=== PATIENT | female | born 1985 | race Caucasian/White ===

== ENCOUNTER 2023-08-01 19:07 | Outpatient (REF) | payer OTHER, SELFPAY ==
[2023-08-07 11:09] LABS: Age Gdln ACOG Testing Note (.); HPV Aptima Negative (Negative); IGP, Aptima HPV, rfx 16/18,45 Note (.)
== END 2023-08-01 19:08 | disposition home or self-care (01) ==
LOC: LAB 19:07
PROVIDERS: PCP Internal Medicine; Visit Provider Physician Assistant
DX: Z12.4 Encounter for screening for malignant neoplasm of cervix (principal)
CPT/HCPCS: 87624; G0145

== ENCOUNTER 2023-08-07 11:01 | Outpatient (OUT) | payer OTHER, SELFPAY ==
--- NOTE | 2023-08-07 11:05 | US_ITS ---
[address] [address] Patient Name: MARLENI BERNABE MRN: [id number] date: 1985 Sex: F Assigned Patient Location: Current Patient Location: Accession/Order Number: [id number] Exam Date: 08/07/2023 11:10 Report Date: 08/08/2023 02:48 At the request of: YOCASTA GRANT Procedure: US pelvis transvaginal EXAMINATION: US pelvis transvaginal HISTORY: Menorrhagia With Irregular Cycle N92.1 COMPARISON: Ultrasound pelvis 05/09/2021 TECHNIQUE: Transabdominal and/or transvaginal sonographic examination was performed as indicated by examination type. FINDINGS: UTERUS: Bicornuate uterus. Normal size, contour and echogenicity. Uterus size: 6.8 x 4.2 x 3.0 cm ENDOMETRIUM: Normal homogeneous appearance. Endometrial thickness: 6 mm RIGHT OVARY: Contains a 1.5 cm complex cyst. Duplex Doppler demonstrates normal waveform and flow; resistive index 0.5. Ovary size: 2.9 x 2.7 x 2.5 cm LEFT OVARY: Normal size and appearance. Duplex Doppler demonstrates normal waveform and flow; resistive index 0.5. Ovary size: 2.3 x 1.2 x 1.5 cm CUL-DE-SAC: Unremarkable. No significant free fluid. BLADDER: Unremarkable. OTHER: None. US/US pelvis transvaginal IMPRESSION: 1. Right ovary contains a 1.5 cm complex cyst. Consider follow-up ultrasound evaluation in 6 weeks to document regression. 2. No specific findings to account for patient's symptoms. Electronically authenticated by: DAVID CHANEY Date: 08/08/2023 02:48
[2023-08-07 11:54] LABS: Basophils Absolute Auto 0.1 10^3/uL (0.0-0.1); Basophils Percent Auto 0.9 % (0.2-2.0); Eosinophils Absolute Auto 0.2 10^3/uL (0.0-0.7); Eosinophils Percent Auto 2.3 % (0.9-7.0); Hematocrit 36.7 % (36.0-48.0); Hemoglobin 12.1 g/dL (12.0-16.0); Immature Granulocytes Abs Auto 0.01 10^3/uL (0.00-0.03); Immature Granulocytes Pct Auto 0.1 % (0.0-0.5); Lymphocytes Absolute Auto 3.8 10^3/uL (1.2-3.8); Lymphocytes Percent Auto 54.7 % (20.5-60.0); Mean Corpuscular Hemoglobin 31.6 pg (26.7-34.0); Mean Corpuscular Volume 95.8 fL (81.0-99.0); Mean Platelet Volume 9.3 fL (9.5-13.5); Monocytes Absolute Auto 0.5 10^3/uL (0.3-0.8); Monocytes Percent Auto 6.5 % (1.7-12.0); Neutrophils Absolute Auto 2.5 10^3/uL (1.4-6.5); Neutrophils Percent Auto 35.5 % (43.0-75.0); Platelet Count 301 10^3/uL (150-450); Red Blood Count 3.83 10^6/uL (4.20-5.40); Red Cell Distribution Width 12.7 % (11.0-15.0)
[2023-08-07 12:06] LABS: INR 1.06; Partial Thromboplastin Time 28.6 sec (22.3-36.2); Prothrombin Time 11.2 sec (9.0-11.6)
[2023-08-07 12:19] LABS: HCG Quantitative <1 mIU/mL
[2023-08-07 12:24] LABS: Estimated Average Glucose 120 mg/dL; Glycohemoglobin A1C 5.8 % (4.5-6.2)
[2023-08-07 12:31] LABS: Free T4 1.01 ng/dL (0.76-1.46)
== END 2023-08-07 11:02 | disposition home or self-care (01) ==
LOC: US 11:01
PROVIDERS: PCP Internal Medicine; Visit Provider Obstetrics & Gynecology
DX: N92.1 Excessive and frequent menstruation with irregular cycle (principal); N83.201 Unspecified ovarian cyst, right side
CPT/HCPCS: 36415; 76830; 83036; 84439; 84702; 85025; 85610; 85730

== ENCOUNTER 2023-08-07 11:29 | Outpatient (OUT) | payer OTHER, SELFPAY ==
[2023-08-07 12:17] LABS: Creatinine Urine Random <13.00 mg/dL (20.00-300.00); Microalbumin Urine Random <1.3 mg/dL (<=30.0)
[2023-08-07 12:22] LABS: Alanine Aminotransferase 14 U/L (14-59); Albumin Globulin Ratio 0.9; Albumin Level 3.7 g/dL (3.4-5.0); Alkaline Phosphatase 84 U/L (46-116); Anion Gap 13.3; Aspartate Amino Transferase 18 U/L (15-37); BUN Creatinine Ratio 14.7; Bilirubin Total 0.5 mg/dL (0.2-1.0); Calcium 8.8 mg/dL (8.5-10.1); Carbon Dioxide 24.1 mmol/L (21.0-32.0); Chloride 100 mmol/L (98-107); Estimated GFR (African America >60 (>=60); Estimated GFR (Non-African Ame >60 (>=60); Globulin 4.1 g/dL; Glucose 94 mg/dL (74-106); Potassium 3.4 mmol/L (3.5-5.1); Sodium 134 mmol/L (136-145); Total Protein 7.8 g/dL (6.4-8.2); Triglycerides 88 mg/dL (<=150); VLDL CHOLESTEROL 17.6 mg/dL
[2023-08-07 12:23] LABS: Chol HDL Ratio 2.6; Cholesterol 168 mg/dL (<=200); HDL Cholesterol 64 mg/dL (40-60); Thyroid Stimulating Hormone 1.958 uIU/mL (0.358-3.740)
== END 2023-08-07 11:30 | disposition home or self-care (01) ==
LOC: LAB 11:29
PROVIDERS: PCP Internal Medicine
DX: N92.1 Excessive and frequent menstruation with irregular cycle (principal); N83.201 Unspecified ovarian cyst, right side; E10.9 Type 1 diabetes mellitus without complications
CPT/HCPCS: 36415; 76830; 80053; 80061; 82043; 82570; 83036; 84439; 84443; 84702; 85025; 85610; 85730

== ENCOUNTER 2023-12-13 12:12 | Inpatient (IN) | payer OTHER, SELFPAY ==
[2023-12-13] VITALS (63 sets, daily range): BP systolic 95–131; BP diastolic 65–98; PULSE 66–106; TEMP 34.4–37.3; O2SAT 86–100; BMI 17.7; BMI 17.9
[2023-12-13] MEDS: DEXTROSE 50 %-WATER 25 GM/50 ML SYRINGE IV ×2 (12:16→17:55)
[2023-12-13] MEDS: NALOXONE HCL 2 MG/2 ML SYRINGE IV (12:17)
--- NOTE | 2023-12-13 12:21 | PC.NURSE ---
glucose monitor read low. Dr. nugent notified of pt Blood sugar
--- NOTE | 2023-12-13 12:21 | ECG_ITS ---
The [facility] Test Date: 2023-12-13 Pat Name: MARLENI BERNABE Department: Room: [facility] Gender: Female Assistant To The President: : 1985 Requested By: 1030 Order Number: [id number] Reading MD: NAT MEDINA Measurements Intervals Hector Rate: 69 P: 56 AR: 140 QRS: 57 QRSD: 94 T: 90 QT: 350 QTc: 369 Interpretive Statements 1100 Sinus rhythm 9110 normal ECG Compared to ECG 11/17/2019 19:17:34 Sinus tachycardia no longer present Right-axis deviation no longer present Electronically Signed On 12-14-2023 7:58:37 EDT by NAT MEDINA
[2023-12-13 12:42] LABS: Glucometer 301 mg/dL (74-106)
[2023-12-13] MEDS: ONDANSETRON PF 4 MG/2 ML VIAL IV (12:46)
[2023-12-13 12:54] LABS: Basophils Absolute Auto 0.1 10^3/uL (0.0-0.1); Eosinophils Percent Auto 0.2 % (0.9-7.0); Hematocrit 35.7 % (36.0-48.0); Hemoglobin 10.8 g/dL (12.0-16.0); Immature Granulocytes Abs Auto 0.03 10^3/uL (0.00-0.03); Immature Granulocytes Pct Auto 0.3 % (0.0-0.5); Lymphocytes Absolute Auto 1.8 10^3/uL (1.2-3.8); Lymphocytes Percent Auto 17.3 % (20.5-60.0); Mean Corpuscular HGB Conc 30.3 g/dL (29.9-35.2); Mean Corpuscular Hemoglobin 26.2 pg (26.7-34.0); Mean Corpuscular Volume 86.7 fL (81.0-99.0); Mean Platelet Volume 9.7 fL (9.5-13.5); Monocytes Absolute Auto 0.6 10^3/uL (0.3-0.8); Monocytes Percent Auto 5.4 % (1.7-12.0); Neutrophils Percent Auto 75.8 % (43.0-75.0); Platelet Count 512 10^3/uL (150-450); Red Blood Count 4.12 10^6/uL (4.20-5.40); Red Cell Distribution Width 16.6 % (11.0-15.0); White Blood Count 10.5 10^3/uL (4.0-11.0)
[2023-12-13] MEDS: 0.9 % SODIUM CHLORIDE 1,000 ML 999 ML IV (12:54)
--- NOTE | 2023-12-13 12:58 | PC.NURSE ---
pt upon arrival was unresponsive to touch, sound, voice. Fixed eyes. Blood sugar read low on glucometer.
[2023-12-13 13:10] LABS: Anion Gap 12.8
[2023-12-13 13:12] LABS: Alanine Aminotransferase 40 U/L (14-59); Albumin Globulin Ratio 0.6; Albumin Level 2.6 g/dL (3.4-5.0); Alkaline Phosphatase 136 U/L (46-116); Amylase 21 U/L (25-115); Aspartate Amino Transferase 76 U/L (15-37); BUN Creatinine Ratio 14.8; Bilirubin Direct 0.1 mg/dL (0.0-0.2); Bilirubin Total 0.2 mg/dL (0.2-1.0); Calcium 7.9 mg/dL (8.5-10.1); Carbon Dioxide 27.5 mmol/L (21.0-32.0); Chloride 102 mmol/L (98-107); Estimated GFR (African America >60 (>=60); Estimated GFR (Non-African Ame >60 (>=60); Globulin 4.6 g/dL; Glucose 313 mg/dL (74-106); Lipase <10.0 U/L (16.0-77.0); Potassium 4.3 mmol/L (3.5-5.1); Sodium 138 mmol/L (136-145); Total Protein 7.2 g/dL (6.4-8.2); Troponin I High Sensitivity <4.0 pg/mL (4.0-51.3)
[2023-12-13 13:13] LABS: Ethanol <3 mg/dL
--- NOTE | 2023-12-13 13:13 | PC.NURSE ---
glucose monitor read low. Dr. nugent notified of low blood sugars
--- NOTE | 2023-12-13 13:28 | CT_ITS ---
[address] [address] Patient Name: MARLENI BERNABE MRN: [id number] date: 1985 Sex: F Assigned Patient Location: ER Current Patient Location: ER Accession/Order Number: [id number] Exam Date: 12/13/2023 13:50 Report Date: 12/13/2023 14:31 At the request of: DIALLO BROOKS Procedure: CT abdomen pelvis w con EXAMINATION: CT abdomen pelvis w con HISTORY: Hypothermia, had Whipple in September , mid abdominal pain, vomiting COMPARISON: CTA abdomen and pelvis 09/17/2019 TECHNIQUE: Axial, Coronal, and Sagittal images were obtained without and/or with IV contrast as indicated by examination type. Dose reduction techniques were achieved by using automated exposure control and/or adjustment of mA and/or kV according to patient size and/or use of iterative reconstruction technique. FINDINGS: LUNG BASES: No visible pulmonary or pleural disease. LIVER: No enlargement, atrophy, suspicious density, or significant focal lesion. BILIARY: Cholecystectomy. PANCREAS: Pancreatectomy. SPLEEN: Splenectomy. ADRENALS: No mass or enlargement. KIDNEYS: 2 mm nonobstructing stone within left kidney. No mass, hydronephrosis, or abnormal dilation of the ureters. BOWEL/MESENTERY: Resection of distal stomach and duodenum. Percutaneous feeding tube enters through lower left abdomen into the small bowel. No visible mass, obstruction, or bowel wall thickening. AORTA/VASCULAR: No aneurysm or dissection. RETROPERITONEUM: Numerous surgical clips from prior lymph node resection. No mass or enlarged lymph nodes. LYMPH NODES: No pelvic adenopathy. Numerous surgical clips from lymph node resection. URINARY BLADDER: Mild wall thickening of the left lateral wall and floor of bladder; nonspecific. PELVIC ORGANS: No visible mass. Pelvic organs appropriate for patient age. Small amount of free fluid in pelvic cul-de-sac; likely physiologic. ABDOMINAL WALL: No mass or hernia. BONES: No bony lesion or fracture. OTHER: Negative. CT/CT abdomen pelvis w con IMPRESSION: 1. No acute or suspicious findings to account for patient's symptoms. 2. Prior Whipple procedure with associated changes. 3. Nonobstructing left nephrolithiasis. 4. Borderline wall thickening of urinary bladder involving left side; mild cystitis? Electronically authenticated by: DAVID CHANEY Date: 12/13/2023 14:31
[2023-12-13 13:42] LABS: HCG Qualitative NEGATIVE (NEGATIVE)
[2023-12-13 14:11] LABS: Glucometer 221 mg/dL (74-106)
--- NOTE | 2023-12-13 14:12 | XR_ITS ---
The [address] [address] Patient Name: MARLENI BERNABE MRN: [id number] date: 1985 Sex: F Assigned Patient Location: ER Current Patient Location: ER Accession/Order Number: [id number] Exam Date: 12/13/2023 14:15 Report Date: 12/13/2023 14:29 At the request of: DIALLO BROOKS Procedure: XR chest 1V Exam: Radiographs: XR chest 1V Reason for exam: hypothermia Comparison: None XR/XR chest 1V IMPRESSION: Unremarkable chest x-ray. Electronically authenticated by: YARY WHITEHEAD Date: 12/13/2023 14:29
[2023-12-13 14:59] LABS: Bilirubin Urine NEGATIVE (NEGATIVE); Blood Urine SMALL (NEGATIVE); Clarity Urine CLOUDY (CLEAR); Color Urine LT. YELLOW (YELLOW); Glucose Urine UA 500 mg/dL (NEGATIVE); Ketones Urine NEGATIVE (NEGATIVE); Leukocyte Esterase Urine MODERATE (NEGATIVE); Nitrite Urine POSITIVE (NEGATIVE); Protein Urine NEGATIVE (NEG/TRACE); Specific Gravity Urine 1.015 (1.005-1.025); Urobilinogen Urine 0.2 EU/dL (0.2-1.0); pH Urine 6.5 (5.0-9.0)
[2023-12-13 15:05] LABS: Bacteria Urine LARGE #/HPF (NONE SEEN); Cast Seen? NONE SEEN #/LPF (NONE SEEN); Crystals Seen? None Seen #/HPF (None Seen); Mucus Urine TRACE (NONE SEEN); Squamous Epithelial Cell Urine FEW #/LPF (NONE/RARE); WBC Urine >100 #/HPF (NONE SEEN)
[2023-12-13 15:21] LABS: Amphetamine Screen Urine POSITIVE (NEGATIVE); Barbiturates Screen Urine NEGATIVE (NEGATIVE); Benzodiazepines Screen Urine POSITIVE (NEGATIVE); Buprenorphine Screen Urine NEGATIVE (NEGATIVE); Cannabinoid Screen Urine NEGATIVE (NEGATIVE); Cocaine Screen Urine NEGATIVE (NEGATIVE); Methadone Screen Urine NEGATIVE (NEGATIVE); Methamphetamines Screen Urine POSITIVE (NEGATIVE); Opiate Screen Urine POSITIVE (NEGATIVE); Oxycodone Screen Urine POSITIVE (NEGATIVE); Phencyclidine Screen Urine NEGATIVE (NEGATIVE); Tricyclic Antidepressant Urine NEGATIVE (NEGATIVE)
--- NOTE | 2023-12-13 15:25 | ED.AMS1 ---
HPI - Altered Mental Status General Chief Complaint: Altered Mental Status Stated Complaint: UNRESPONSIVE Time Seen by Provider: 12/13/23 12:20 Mode of arrival: ambulance History of Present Illness HPI narrative: 38-year-old female presents for altered mental status. She was found to be unresponsive by her and when paramedics arrived they found her blood sugar to be 39. They could not get an IV started on her but they gave her IM glucagon. They recognize that she felt cool to the touch. The patient's boyfriend accompanied her and reported that she was fine yesterday and seemed a little bit sluggish this morning but was acting normally and had not eaten any food today. A knocked over bowl of food was present next to her bed when she was found by paramedics. These events happened this morning. In September she had Whipple procedure at the [facility]. She has not had recent fever chest pain or abdominal pain Related Data Home Medications ?Medication ?Instructions ?Recorded ?Confirmed cholecalciferol (vitamin D3) 25 1,000 unit PO DAILY 12/13/23 12/13/23 mcg (1,000 unit) capsule hydromorphone 8 mg tablet,extended 8 mg PO BID 12/13/23 12/13/23 release 24 hr lorazepam 0.5 mg tablet 0.5 mg PO Q6H 12/13/23 12/13/23 mirtazapine 7.5 mg tablet 7.5 mg PO BEDTIME 12/13/23 12/13/23 oxycodone 15 mg tablet 15 mg PO Q4H 12/13/23 12/13/23 pantoprazole 40 mg tablet,delayed 40 mg PO DAILY 12/13/23 12/13/23 release promethazine 25 mg tablet 25 mg PO Q6H 12/13/23 12/13/23 Allergies Allergy/AdvReac Type Severity Reaction Status Date / Time sulfamethoxazole AdvReac Mild Verified 12/13/23 12:55 [From Bactrim] trimethoprim [From Bactrim] AdvReac Mild Verified 12/13/23 12:55 Review of Systems ROS Narrative A ten point review of systems is negative except as noted above. Review of systems was obtained after the patient awoke and was fully oriented and talkative. Exam Narrative Exam Narrative: Nurses note and vital signs reviewed and patient is not hypoxic. General: The patient is unresponsive upon a arrival and appeared slightly pale Skin: Warm, dry, pallor noted. Head: Normocephalic, atraumatic Eye: Normal conjunctiva, no drainage Ears, Nose, Mouth, and Throat: oral mucosa is moist. Nares patent. Cardiovascular: Regular Rate and Rhythm Respiratory: Patient is in no distress, no accessory muscle use, lungs are clear to auscultation, no wheezing, rales or rhonchi Back: non-tender GI: Old healed surgical scars present as well as feeding tube. There was no apparent tenderness after she awoke and was alert. Musculoskeletal: The patient has no evidence of calf tenderness, no pitting edema, symmetrical pulses noted bilaterally Neurological: Upon arrival unresponsive. Subsequently after treatment fully awake alert and oriented Psychiatric: Cooperative after treatment Constitutional Vital Signs, click to edit/add: Last Vital Signs Temp 97.5 F L 12/13/23 12:49 Pulse 78 12/13/23 14:10 Resp 15 12/13/23 12:19 BP 110/81 12/13/23 14:10 Pulse Ox 95 12/13/23 14:12 O2 Del Method Nasal Cannula 12/13/23 14:12 O2 Flow Rate 1 12/13/23 14:12 Course Vital Signs Vital signs: Vital Signs Temperature 94 F L 12/13/23 12:19 Pulse Rate 106 H 12/13/23 12:19 Respiratory Rate 15 12/13/23 12:19 Blood Pressure 123/98 H 12/13/23 12:19 Pulse Oximetry 95 12/13/23 12:19 Oxygen Delivery Method Room Air 12/13/23 12:19 Oxygen Delivery Flow Rate 2 12/13/23 12:19 Temperature 97.5 F L 12/13/23 12:49 Pulse Rate 78 12/13/23 14:10 Respiratory Rate 15 12/13/23 12:19 Blood Pressure 110/81 12/13/23 14:10 Pulse Oximetry 95 12/13/23 14:12 Oxygen Delivery Method Nasal Cannula 12/13/23 14:12 Oxygen Delivery Flow Rate 1 12/13/23 14:12 MDM - Altered Mental Status MDM Narrative Medical decision making narrative: IV was started upon arrival and she was given D50 after which she awoke and was back to herself. She was also given Narcan but I do not feel that this had an effect on her status. CT scan shows possible cystitis and urinary tract infection is indicated on the urinalysis. Cultures were obtained and drug screen shows methamphetamine, amphetamine, oxycodone, and benzodiazepines. She was given IV Rocephin. Marlo taligger was applied for hypothermia and her body temperature increased and it was able to be taken off of her. She is being admitted to ICU for observation. At this point I do not believe that she is septic. Differential Diagnosis Differential diagnosis: Likely alcoholic intoxication, altered mental status, delirium, hypoglycemia and sepsis Lab Data Attestation: I reviewed the patient's lab results. Labs: Lab Results 12/13/23 12/13/23 12/13/23 Range/Units 12:40 12:42 14:10 WBC 10.5 (4.0-11.0) 10^3/uL RBC 4.12 L (4.20-5.40) 10^6/uL Hgb 10.8 L (12.0-16.0) g/dL Hct 35.7 L (36.0-48.0) % MCV 86.7 (81.0-99.0) fL MCH 26.2 L (26.7-34.0) pg MCHC 30.3 (29.9-35.2) g/dL RDW 16.6 H (11.0-15.0) % Plt Count 512 H (150-450) 10^3/uL MPV 9.7 (9.5-13.5) fL Neut % (Auto) 75.8 H (43.0-75.0) % Lymph % (Auto) 17.3 L (20.5-60.0) % [place] % (Auto) 5.4 (1.7-12.0) % Eos % (Auto) 0.2 L (0.9-7.0) % Baso % (Auto) 1.0 (0.2-2.0) % Neut # (Auto) 8.0 H (1.4-6.5) 10^3/uL Lymph # (Auto) 1.8 (1.2-3.8) 10^3/uL [place] # (Auto) 0.6 (0.3-0.8) 10^3/uL Eos # (Auto) 0.0 (0.0-0.7) 10^3/uL Baso # (Auto) 0.1 (0.0-0.1) 10^3/uL Abs Immat Gran (auto) 0.03 (0.00-0.03) 10^3/uL Imm/Tot Granulo (auto) 0.3 (0.0-0.5) % Sodium 138 (136-145) mmol/L Potassium 4.3 (3.5-5.1) mmol/L Chloride 102 (98-107) mmol/L Carbon Dioxide 27.5 (21.0-32.0) mmol/L Anion Gap 12.8 BUN 12.0 (7.0-18.0) mg/dL Creatinine 0.81 (0.55-1.02) mg/dL Est GFR ( Amer) >60 (>=60) Est GFR (Non-Af Amer) >60 (>=60) BUN/Creatinine Ratio 14.8 Glucose 313 H (74-106) mg/dL Calcium 7.9 L (8.5-10.1) mg/dL Total Bilirubin 0.2 (0.2-1.0) mg/dL Direct Bilirubin 0.1 (0.0-0.2) mg/dL AST 76 H (15-37) U/L ALT 40 (14-59) U/L Alkaline Phosphatase 136 H (46-116) U/L Troponin I High Sens <4.0 L (4.0-51.3) pg/mL Total Protein 7.2 (6.4-8.2) g/dL Albumin 2.6 L (3.4-5.0) g/dL Globulin 4.6 g/dL Albumin/Globulin Ratio 0.6 Amylase 21 L (25-115) U/L Lipase <10.0 L (16.0-77.0) U/L Serum HCG, Qual Negative (NEGATIVE) Urine Color (YELLOW) Urine Clarity (CLEAR) Urine pH (5.0-9.0) Ur Specific [place] (1.005-1.025) Urine Protein (NEG/TRACE) mg/dL Urine Glucose (UA) (NEGATIVE) mg/dL Urine Ketones (NEGATIVE) mg/dL Urine Occult Blood (NEGATIVE) Urine Nitrite (NEGATIVE) Urine Bilirubin (NEGATIVE) Urine Urobilinogen (0.2-1.0) EU/dL Ur Leukocyte Esterase (NEGATIVE) Urine RBC (0-2) #/HPF Urine WBC (NONE SEEN) #/HPF Ur Squamous Epith Cells (NONE/RARE) #/LPF Urine Crystals (None Seen) #/HPF Urine Bacteria (NONE SEEN) #/HPF Urine Casts (NONE SEEN) #/LPF Urine Mucus (NONE SEEN) Urine Opiates Screen (NEGATIVE) Ur Buprenorphine Scrn (NEGATIVE) Ur Oxycodone Screen (NEGATIVE) Urine Methadone Screen (NEGATIVE) Ur Barbiturates Screen (NEGATIVE) U Tricyclic Antidepress (NEGATIVE) Ur Phencyclidine Scrn (NEGATIVE) Ur Amphetamines Screen (NEGATIVE) U Methamphetamines Scrn (NEGATIVE) U Benzodiazepines Scrn (NEGATIVE) Urine Cocaine Screen (NEGATIVE) U Cannabinoids Screen (NEGATIVE) Ethanol Quant <3 mg/dL POC Glucose 301 H 221 H (74-106) mg/dL 12/13/23 Range/Units 14:46 WBC (4.0-11.0) 10^3/uL RBC (4.20-5.40) 10^6/uL Hgb (12.0-16.0) g/dL Hct (36.0-48.0) % MCV (81.0-99.0) fL MCH (26.7-34.0) pg MCHC (29.9-35.2) g/dL RDW (11.0-15.0) % Plt Count (150-450) 10^3/uL MPV (9.5-13.5) fL Neut % (Auto) (43.0-75.0) % Lymph % (Auto) (20.5-60.0) % [place] % (Auto) (1.7-12.0) % Eos % (Auto) (0.9-7.0) % Baso % (Auto) (0.2-2.0) % Neut # (Auto) (1.4-6.5) 10^3/uL Lymph # (Auto) (1.2-3.8) 10^3/uL [place] # (Auto) (0.3-0.8) 10^3/uL Eos # (Auto) (0.0-0.7) 10^3/uL Baso # (Auto) (0.0-0.1) 10^3/uL Abs Immat Gran (auto) (0.00-0.03) 10^3/uL Imm/Tot Granulo (auto) (0.0-0.5) % Sodium (136-145) mmol/L Potassium (3.5-5.1) mmol/L Chloride (98-107) mmol/L Carbon Dioxide (21.0-32.0) mmol/L Anion Gap BUN (7.0-18.0) mg/dL Creatinine (0.55-1.02) mg/dL Est GFR ( Amer) (>=60) Est GFR (Non-Af Amer) (>=60) BUN/Creatinine Ratio Glucose (74-106) mg/dL Calcium (8.5-10.1) mg/dL Total Bilirubin (0.2-1.0) mg/dL Direct Bilirubin (0.0-0.2) mg/dL AST (15-37) U/L ALT (14-59) U/L Alkaline Phosphatase (46-116) U/L Troponin I High Sens (4.0-51.3) pg/mL Total Protein (6.4-8.2) g/dL Albumin (3.4-5.0) g/dL Globulin g/dL Albumin/Globulin Ratio Amylase (25-115) U/L Lipase (16.0-77.0) U/L Serum HCG, Qual (NEGATIVE) Urine Color Lt. yellow (YELLOW) Urine Clarity Cloudy A (CLEAR) Urine pH 6.5 (5.0-9.0) Ur Specific [place] 1.015 (1.005-1.025) Urine Protein Negative (NEG/TRACE) mg/dL Urine Glucose (UA) 500 A (NEGATIVE) mg/dL Urine Ketones Negative (NEGATIVE) mg/dL Urine Occult Blood Small A (NEGATIVE) Urine Nitrite Positive A (NEGATIVE) Urine Bilirubin Negative (NEGATIVE) Urine Urobilinogen 0.2 (0.2-1.0) EU/dL Ur Leukocyte Esterase Moderate A (NEGATIVE) Urine RBC 2-5 A (0-2) #/HPF Urine WBC >100 A (NONE SEEN) #/HPF Ur Squamous Epith Cells Few A (NONE/RARE) #/LPF Urine Crystals None seen (None Seen) #/HPF Urine Bacteria Large A (NONE SEEN) #/HPF Urine Casts None seen (NONE SEEN) #/LPF Urine Mucus Trace A (NONE SEEN) Urine Opiates Screen Positive A (NEGATIVE) Ur Buprenorphine Scrn Negative (NEGATIVE) Ur Oxycodone Screen Positive A (NEGATIVE) Urine Methadone Screen Negative (NEGATIVE) Ur Barbiturates Screen Negative (NEGATIVE) U Tricyclic Antidepress Negative (NEGATIVE) Ur Phencyclidine Scrn Negative (NEGATIVE) Ur Amphetamines Screen Positive A (NEGATIVE) U Methamphetamines Scrn Positive A (NEGATIVE) U Benzodiazepines Scrn Positive A (NEGATIVE) Urine Cocaine Screen Negative (NEGATIVE) U Cannabinoids Screen Negative (NEGATIVE) Ethanol Quant mg/dL POC Glucose (74-106) mg/dL Imaging Data Chest x-ray: Radiologist's impression: ITS Impressions Abdomen/Pelvis CT 12/13/23 13:28 IMPRESSION: 1. No acute or suspicious findings to account for patient's symptoms. 2. Prior Whipple procedure with associated changes. 3. Nonobstructing left nephrolithiasis. 4. Borderline wall thickening of urinary bladder involving left side; mild cystitis? Electronically authenticated by: DAVID CHANEY Date: 12/13/2023 14:31 Chest X-Ray 12/13/23 14:12 IMPRESSION: Unremarkable chest x-ray. Electronically authenticated by: YARY WHITEHEAD Date: 12/13/2023 14:29 ECG Data Attestation: I personally reviewed and interpreted this ECG as follows: (EKG on my interpretation shows normal sinus rhythm with a rate of 69 and no acute changes) Critical Care Time Critical Care Time Critical Care Time: Yes Total Critical Care Time: 50 Attestation: Due to the high probability of sudden and clinically significant deterioration in the patient's condition he/she required the highest level of my preparedness to intervene urgently I provided critical care time including documentation time, medication orders and management, reevaluation, vital sign assessment, ordering and reviewing of lab tests, ordering and reviewing of x-ray studies, and admission orders. Aggregate critical care time is 50 minutes including only time during which I was engaged in work directly related to his/her care and did not include time spent treating other patients simultaneously. Discharge Plan Discharge Chief Complaint: Altered Mental Status Clinical Impression: Urinary tract infection, Hypoglycemia, Hypothermia Patient Disposition: Admitted as Observation Time of Disposition Decision: 15:24 Condition: Good
[2023-12-13] MEDS: CEFTRIAXONE 1,000 MG in 0.9 % SODIUM CHLORIDE 50 ML 100 MG IV (15:30)
[2023-12-13] MEDS: KETOROLAC TROMETHAMINE 30 MG/ML VIAL IVP (15:44)
[2023-12-13 15:46] LABS: PROCALCITONIN <0.05 ng/mL (0.00-0.50)
--- NOTE | 2023-12-13 16:12 | P.HP_ITS ---
HPI H&P: HPI History of Present Illness Chief complaint: UNRESPONSIVE UTI HYPOGLYCEMIA HYPOTHERMIA Narrative: Patient is a 38 y.o white female with past medical history of s/p Whipple procedure at in September. She has long history of chronic pancreatitis, Crohn's disease, insulin dependent type 2 diabetes, GERD, Anxiety, depression, opioid dependence. She presented to the ER today by EMS for being found unresponsive at home. Her boyfriend told her this morning that she needed to eat something or take a glucose tablet because her sugar was low, he went to work, and when he returned she was found unresponsive. When EMS arrived her glucose was 39 and she was hypothermic. She was given Narcan and D50 which made her alert after arrival. At the time of admission, she is in pain from her chronic abdominal pain. She says her glucose has been difficult to regulate since surgery in September and she has had many days of low sugars but just drinks orange juice. She has a J tube that she just flushes but does not use. She eats normally but in small amounts. She denies recent illnesses, fevers, chills, nausea/vomiting and says diarrhea is her norm. When asked about illicit drug use she denies anything other than her prescribed medications. No other issues or concerns at this time other than pain. Opioid HPI Opioid Management Most Recent Opioid Data: Last Pain Scale 7 12/13/23 15:44 Last MAR Pain Assessment 12/13/23 15:44 Last ORT Total Score 11 12/13/23 16:34 Last ORT Risk Category High Risk 12/13/23 16:34 Ur Phencyclidine Scrn Negative (NEGATIVE) 12/13/23 14:46 Review of Systems ROS Narrative ROS: a complete review of systems were reviewed with patient and are positive as below or listed in History of Chief Complaint. General: no fever, chills, night sweats Head: no headache, trauma, visual changes, nausea or vomiting Skin: no reported rashes, itching or sores Eyes: no blurriness of vision Ears: no reported hearing loss, vertigo, earache, or tinnitus Throat: no sore throat, hoarseness, swelling of neck, or tongue pain Heart: no chest pain Lungs: no shortness of breath or cough GI:chronic diarrhea, no vomiting/nausea Urinary: no urinary urgency, frequency or pain Neuro: no numbness or tingling HEM: no bleeding issues or bruising ENDO: no thyroid problems Psych:anxiety and depression [facility] Medical History (Updated 12/13/23 @ 17:37 by Yady Timmons DO) Diabetes ?E11.9 - Type 2 diabetes mellitus without complications (ICD-10) Crohn disease ?K50.90 - Crohn's disease, unspecified, without complications (ICD-10) Surgical History H/O splenectomy ?Z90.81 - Acquired absence of spleen (ICD-10) Hx of cholecystectomy ?Z90.49 - Acquired absence of other specified parts of digestive tract (ICD- 10) 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 Smoking status: Current every day smoker Do you use any of these nicotine containing products: e-cigarettes Non-prescribed substance use: denies use Highest level of school completed/degree received: Associate degree: academic program Are you now , , , , never or living with a partner: living with partner In a typical week, how many times do you talk on the telephone with family, friends, or neighbors: once per week How often do you get together with friends or relatives: twice per week How often do you attend adventist or voodoo services: never Do you belong to any clubs or organizations such as adventist groups unions, fraternal or athletic groups, or school groups: no Total score: 2 Score interpretation: A score of greater than or equal to 2 indicates the lowest level of social isolation. Little interest or pleasure in doing things: several days Feeling down, depressed, or hopeless: several days Feel stressed/tense/nervous/anxious/difficulty sleeping: very much Due to disability, difficulty making decisions: No Do you think of yourself as: straight/heterosexual Gender Identity: female Meds Home Medications and Allergies Home Medications ?Medication ?Instructions ?Recorded ?Confirmed ?Type atomoxetine 60 mg capsule 60 mg PO DAILY 12/13/23 History blood-glucose sensor (Dexcom G7 12/13/23 12/13/23 History Sensor device) buprenorphine 5 mcg/hour weekly 1 patch transdermal Q7D 12/13/23 12/13/23 History transdermal patch (Butrans) cariprazine 1.5 mg capsule 1.5 mg PO DAILY 12/13/23 History (Vraylar) cholecalciferol (vitamin D3) 25 1,000 unit PO DAILY 12/13/23 12/13/23 History mcg (1,000 unit) capsule citalopram 20 mg tablet 20 mg PO DAILY 12/13/23 12/13/23 History clonidine HCl 0.1 mg tablet 0.1 mg PO .qhs 12/13/23 History hydromorphone 8 mg tablet,extended 8 mg PO BID 12/13/23 12/13/23 History release 24 hr insulin glargine 100 unit/mL (3 1 - 20 unit subcut DAILY 12/13/23 12/13/23 History mL) subcutaneous pen (Lantus Solostar U-100 Insulin) insulin lispro 100 unit/mL 1 sliding scale dose subcut .TIDAC 12/13/23 12/13/23 History subcutaneous pen [id number]-[id number] 3 cap PO DAILY PRN snacks 12/13/23 12/13/23 History 12,000-38,000-60,000 unit capsule,delayed rel (Creon) [id number] 1 cap PO TIDWM 12/13/23 12/13/23 History 36,000-114,000-180,000 unit capsule,delay rel (Creon) lorazepam 0.5 mg tablet 0.5 mg PO Q6H PRN anxiety 12/13/23 12/13/23 History mirtazapine 7.5 mg tablet 7.5 mg PO BEDTIME 12/13/23 History oxycodone 15 mg tablet 15 mg PO Q4H PRN pain 12/13/23 12/13/23 History pantoprazole 40 mg tablet,delayed 40 mg PO DAILY 12/13/23 12/13/23 History release promethazine 25 mg tablet 25 mg PO Q6H PRN nausea and 12/13/23 History vomiting trazodone 100 mg tablet 200 mg PO .qhs 12/13/23 12/13/23 History Allergies Allergy/AdvReac Type Severity Reaction Status Date / Time sulfamethoxazole AdvReac Mild Verified 12/13/23 12:55 [From Bactrim] trimethoprim [From Bactrim] AdvReac Mild Verified 12/13/23 12:55 Exam Narrative Exam Narrative: General: Patient is alert, and oriented to person, place and time with normal affect, proper hygiene, mild cachexia noted Skin: no visible rashes, or ulcers but several scars noted on the abdomen with J-tube in place Head: atraumatic, acephalic Eyes: PERRLA, no nystagmus present, conjunctiva clear, no scleral icterus Ears: normal Tympanic Membrane, normal gross auditory acuity Nose: symmetric, no discharge, no maxillary or frontal sinus tenderness Mouth/Throat: no erythema, exudate, or tonsillar enlargement, normal dentition Neck: no masses palpated, normal thyroid, no JVD or audible carotid bruits Heart: Normal rate and rhythm, no murmurs/rubs/gallops Lungs: no audible wheezes, crackles and normal breath sounds all lung feliciano Abdomen: Normal audible bowel sounds, no distension, No palpable masses, no organomegaly, no rebound/guarding/ or rigidity Musculoskeletal: muscle atrophy noted, no swelling bilateral lower extremities Neuro: CN II-X grossly intact Constitutional Vital Signs, click to edit/add: Last Vital Signs Temp 97.5 F L 12/13/23 12:49 Pulse 78 12/13/23 14:10 Resp 15 12/13/23 12:19 BP 110/81 12/13/23 14:10 Pulse Ox 95 12/13/23 14:12 O2 Del Method Nasal Cannula 12/13/23 14:12 O2 Flow Rate 1 12/13/23 14:12 Results Labs Labs: Short CBC 12/13/23 Range/Units 12:42 WBC 10.5 (4.0-11.0) 10^3/uL Hgb 10.8 L (12.0-16.0) g/dL Hct 35.7 L (36.0-48.0) % Plt Count 512 H (150-450) 10^3/uL BMP 12/13/23 12:42 Sodium 138 Potassium 4.3 Chloride 102 Carbon Dioxide 27.5 BUN 12.0 Creatinine 0.81 Glucose 313 H Calcium 7.9 L Liver Function 12/13/23 Range/Units 12:42 Total Bilirubin 0.2 (0.2-1.0) mg/dL Direct Bilirubin 0.1 (0.0-0.2) mg/dL AST 76 H (15-37) U/L ALT 40 (14-59) U/L Alkaline Phosphatase 136 H (46-116) U/L Albumin 2.6 L (3.4-5.0) g/dL Urine 12/13/23 Range/Units 14:46 Urine Color Lt. yellow (YELLOW) Urine Clarity Cloudy A (CLEAR) Urine pH 6.5 (5.0-9.0) Ur Specific [place] 1.015 (1.005-1.025) Urine Protein Negative (NEG/TRACE) mg/dL Urine Glucose (UA) 500 A (NEGATIVE) mg/dL Assessment and Plan Assessment and Plan (1) Hypothermia: Assessment and Plan: Insulin level obtained, ha1c in the morning, q4 hour glucose with D50 as needed. Most likely cause for her hypothermia is hypoglycemia but need to exclude other causes such as hypothyroidism. Could also be opiod and anxiolytics combination and overuse. Could also be acute infection. Normal WBC's but cultures obtained, UA positive for UTI, and CT abd/pelvis shows acute cystitis. Qualifiers: Encounter type: initial encounter Qualified Code(s): T68.XXXA - Hypothermia, initial encounter (2) Hypoglycemia: Assessment and Plan: most likely the cause for #1 (3) Urinary tract infection: Assessment and Plan: continue Rocephin 1gram daily. Qualifiers: Urinary tract infection type: acute cystitis Hematuria presence: without hematuria Qualified Code(s): N30.00 - Acute cystitis without hematuria (4) Diabetes: Assessment and Plan: monitor sugars q4 hours, Hold Lantus for now Qualifiers: Diabetes mellitus type: due to underlying condition Diabetes mellitus computer terminal operator insulin use: with computer terminal operator use Diabetes mellitus complication status: with hypoglycemia Diabetes mellitus complication detail: with coma Qualified Code(s): E08.641 - Diabetes mellitus due to underlying condition with hypoglycemia with coma; Z79.4 - buttermaker (current) use of insulin (5) Crohn disease: Qualifiers: Gastrointestinal tract location: unspecified location Digestive disease complication type: unspecified complication Qualified Code(s): K50.919 - Crohn's disease, unspecified, with unspecified complications (6) Opioid abuse with intoxication with complication: Assessment and Plan: continue current home meds but cautiously. may have contributed to #1 (7) Anxiety: Assessment and Plan: continue home meds. (8) ADHD (attention deficit hyperactivity disorder): Assessment and Plan: taking straterra. Qualifiers: Attention deficit-hyperactivity disorder type: unspecified Qualified Code(s): F90.9 - Attention-deficit hyperactivity disorder, unspecified type Plan patient is full code Lovenox for DVT prophylaxis patient is inpatient status and is expected to cross 2 midnights for medically necessary care
[2023-12-13 16:14] LABS: Magnesium 1.9 mg/dL (1.8-2.4)
[2023-12-13 16:17] LABS: Phosphorus 4.4 mg/dL (2.6-4.7)
[2023-12-13 16:21] LABS: Adenovirus NOT DETECTED (NOT DETECTE); Bordetella parapertussis NOT DETECTED (NOT DETECTE); Coronavirus 229E NOT DETECTED (NOT DETECTE); Coronavirus HKU1 NOT DETECTED (NOT DETECTE); Coronavirus NL63 NOT DETECTED (NOT DETECTE); Coronavirus OC43 NOT DETECTED (NOT DETECTE); Human Metapneumovirus NOT DETECTED (NOT DETECTE); Human Rhinovirus/Enterovirus NOT DETECTED (NOT DETECTE); Influenza A NOT DETECTED (NOT DETECTE); Influenza B NOT DETECTED (NOT DETECTE); Mycoplasma pneumoniae NOT DETECTED (NOT DETECTE); Parainfluenza Virus 1 NOT DETECTED (NOT DETECTE); Parainfluenza Virus 2 NOT DETECTED (NOT DETECTE); Parainfluenza Virus 3 NOT DETECTED (NOT DETECTE); Parainfluenza Virus 4 NOT DETECTED (NOT DETECTE); Respiratory Syncytial Virus NOT DETECTED (NOT DETECTE); SARS-CoV-2 NOT DETECTED (NOT DETECTE)
--- OUTSIDE RECORDS SUMMARY | 2023-12-13 16:38 | XMS_ITS | CCD ---
Author Organization [facility] Care Team Providers Care Lead Python Developer Name Role Phone Jeanettechris Nehemiah Unavailable Unavailable None, No PCP Unavailable Unavailable None, No PCP Unavailable Unavailable Unavailable Unavailable Required, No Pcp Unavailable Unavailable Jose Torres Unavailable Edgar Durham Unavailable Unavailable Palliative Care Unavailable Unavailable Shorty Koehler Unavailable Unavailabl e Ramos Parekh Unavailable Unavailable Unavailable Unavailable Jean Pierre Durham Unavailable Julian Mosley Unavailable Unavailab le Mapus, Tondra Unavailable Marianne Tucker Unavailable Nat Medina DO Primary Care Provider Harjit Amaral Unavailable [phone] Unavailable Unavailable Nat Medina DO Primary Care Provider Harjit Mcdowell Unavailable [phone] DR NAT MEDINA Admitting Unavailable CAROL, DR JOHNS Attending Unavailable BALL, DR JOHNS Consulting Unavailable CAROL, DR JOHNS Primary Care Unavailable MAPUS, TONDRA Attending Unavailable MAPUS, TONDRA Consulting Unavailable MAPUS, TONDRA Admitting Unavailable CAROL, DR JOHNS Primary Care Unavailable SAMY LONGO JR Admitting Unavailable SAMY LONGO JR Attending Unavailable CAROL, DR JOHNS Primary Care Unavailable COSMO BLANCAS Admitting Unavailable VICKY ONTIVEROS Consulting Unavailable CAROL, DR JOHNS Primary Care Unavailable COSMO BLANCAS Attending Unavailable COSMO BLANCAS Consulting Unavailable CAROL, DR JOHNS Admitting Unavailable CAROL, DR JOHNS Attending Unavailable BALL, DR JOHNS Consulting Unavailable CAROL, DR JOHNS Primary Care Unavailable BALL, DR JOHNS Admitting Unavailable BALL, DR JOHNS Attending Unavailable BALL, DR JOHNS Consulting Unavailable BALL, DR JOHNS Primary Care Unavailable Nat Medina DO Primary Care Provider Harjit Amaral Unavailable [phone] SORAIDA STEINBERG Admitting Unavailable VICKY WHALEY Referring Unavailable VICKY WHALEY Consulting Unavailable CARO JACKSON Attending Unavailable NAT MEDINA E Primary Care Unavailable Nat Medina E Unavailable Nat Medina E Unavailable Troy Maki Unavailable Unavailable Unavailable Primary Care Provider Unavailabl e Unknown, Referring Provider Unavailable Unav ailable Nat Medina Unavailable Unavailable Primary Care Provider Unavailabl e PROVIDER, UNKNOWN Admitting Unavailable PROVIDER, UNKNOWN Attending Unavailable Carol DOUGLAS, Nat Fischer Primary Care Provider Harjit Amaral Unavailable [phone] DO Nat Medina Primary Care Provider [phone] DO Troy Haile Emergency Provider Unavai MD Karl Persaud Admit Provider MD Karl Gant Attending Provider [phone] José Miguel Tobar Unavailable [facility] DO Allen Alfredo Attending Provider [phone] MD Ant Holloway Other Provider [phone] BECKA Gregorio Other Provider BECKA Busby-C Delmy Other Provider MD José Miguel Tobar Other Provider MD Yan Neves Other Provider Nat Medina DO Edklaudia Primary Care Provider Yong THACKER, Ramos Lieberman Unavailable David BEARD, Inna Corrigan Unavailable UnavailFIOR Martinez Attending Unavailable Nat Medina DO Primary Care Provider Nat Medina DO Primary Care Provider Nat Medina DO Primary Care Provider Ball DO, Nat E Primary Care Provider WINTER, TRAY M Referring Unavailable BALL, NAT E Primary Care Unavailable Karina BEARD, Raffi Unavailable Unavailable Ramos Parekh MD Unavailable Ball DO, Nat E Primary Care Provider Ramos Parekh MD Unavailable [phone] Vandana Ann Unavailable Unavailable Carol, Dr. Nat Smith Referring Unavai lable UNKNOWN, PCP Primary Care Unavailable Yong, Dr. Ramos Manuel Attending Unava ilable UNKNOWN, PCP Primary Care Unavailable Yong, Dr. Ramos Manuel Attending Unava ilable Yong, Dr. Ramos Manuel Referring Unava ilable UNKNOWN, PCP Primary Care Unavailable WINTER, TRAY Attending Unavailable UNKNOWN, PCP Primary Care Unavailable WINTER, TRAY Attending Unavailable WINTER, TRAY Referring Unavailable Ball, Nat Primary Care Unavailable Mapus, Tondra K Admitting Unavailable Mapus, Tondra K Attending Unavailable Ball, Nat Primary Care Unavailable AlfredaKarl cat Admitting Unavailable Allen Borges T Attending Unavailable Ant Holloway Consulting Unavailable Gregorio, Estrella Consulting Unavailable Delmy Busby Consulting Unavailable Ekaterina, José Miguel S Consulting Unavailable Yan Neves Consulting Unavailable BALL, NAT E Primary Care Unavailable WINTER, TRAY M Admitting Unavailable WINTER, TRAY M Attending Unavailable NOHEMI JARAMILLO Referring Unavailable BALL, NAT E Primary Care Unavailable WINTER, TRAY M Attending Unavailable BALL, NAT E Primary Care Unavailable ALBERTINA BRAY Attending Unavailable HARSH GALVEZ Referring Unavailable BALL, NAT E Primary Care Unavailable WINTER, TRAY M Attending Unavailable BALL, NAT E Primary Care Unavailable MITCH MUNOZ Attending Unavailable MAGI RAMESH Referring Unavailable BALL, NAT E Primary Care Unavailable BALL, NAT E Primary Care Unavailable WINTER, TRAY M Attending Unavailable BALL, NAT E Primary Care Unavailable WINTER, TRAY M Admitting Unavailable WINTER, TRAY M Attending Unavailable BALL, NAT E Primary Care Unavailable BALL, NAT E Primary Care Unavailable BALL, NAT E Primary Care Unavailable WINTER, TRAY M Referring Unavailable BALL, NAT E Primary Care Unavailable RAMOS PAREKH Attending Unavailable BALL, NAT E Primary Care Unavailable RAMOS PAREKH Attending Unavailable SELF Referring Unavailable BALL, NAT E Primary Care Unavailable RAMOS PAREKH Attending Unavailable BALL, NAT E Primary Care Unavailable RAMOS PAREKH Attending Unavailable BALL, NAT E Primary Care Unavailable PAREKH, RAMOS Attending Unavailable NAT MEDINA Primary Care Unavailable RAMOS PAREKH Attending Unavailable SELF Referring Unavailable NAT MEDINA Primary Care Unavailable Allergies Allergy Classification Reported Allergen(s) Allergy Type Date of Onset Reaction(s) Facility (20 sources) Sulfamethoxazole / Trimethoprim; Translations: [Bactrim] Drug Allergy 016 [facility] Work Phone: (3 sources) Sulfamethoxazole / Trimethoprim Drug Allergy Hives/Urticaria, Hives [facility] (20 sources) Morphine; Translations: [MORPHINE] Drug Allergy Other: See Comments, Hallucinations, Other [employer] [facility] Other Comment on above: Hallucintations (20 sources) tapentadol Drug Allergy Unknown [employer] Other (20 sources) Sulfamethoxazole; Translations: [SULFAMETHOXAZOLE] Drug Allergy 014 [facility] (1 source) Morphine Drug Allergy [facility] (1 source) Sulfamethoxazole / Trimethoprim Drug Allergy 014 [facility] (2 sources) Sulfamethoxazole Propensity to adverse reactions to drug Rash [facility] (1 source) SULFAMETHOXAZOLE W-TRIMETHOPRIM; Translations: [SULFAMETHOXAZOLE W-TRIMETHOPRIM] Propensity to adverse reactions to drug (disorder) [facility] Repository (12 sources) Morphine Sulfate (Concentrate) *ANALGESICS - OPIOI Propensity to adverse reactions Unknown [employer] Other (12 sources) Substance with sulfonamide structure and antibacterial mechanism of action (substance) Drug allergy 013 Unknown [employer] [facility] Other (6 sources) Ondansetron; Translations: [ondansetron] Drug Allergy Gastrointestinal Upset [facility] (6 sources) Trimethoprim; Translations: [trimethoprim] Drug Allergy Rash, Rash, hives [facility] (2 sources) Sulfamethoxazole / Trimethoprim; Translations: [SULFAMETHOXAZOLE- TRIMETHOPRIM] Drug Allergy 023 [facility] 3 Repository (3 sources) tapentadol; Translations: [tapentadol] Drug Allergy Unknown Reaction [facility] (1 source) Morphine Drug Allergy [facility] Repository (1 source) Sulfamethoxazole Drug Allergy [facility] Repository Medications Current Medications Medication Drug Class(es) Dates Sig (Normalized) Sig (Original) acetaminophen 325 mg oral capsule (20 sources) Start: 11-27-2023 take 325 mg by mouth every six hours Acetaminophen Active 325 MG PO Every 6 hours November 27, 2023 12:00am Start: 11-06-2023 take 650 mg by mouth every six hours as needed 650 mg, oral, Every 6 hours PRN, pain mild (1-3), first line, Starting on Sat11/06/23 at 0516 If ordered PRN for pain, nurse is permitted to administer this medication for higher pain scores based on patient preference? Yes Start: 11-01-2023 End: 11-06-2023 take 1 tablet by mouth every six hours as needed 650 mg, oral, Every 6 hours PRN, pain mild (1-3), first line, fever (temp greater than 38.0 C), Starting on Sat11/01/23 at 0720 If ordered PRN for pain, nurse is permitted to administer this medication for higher pain scores based on patient preference? Yes Start: 01-22-2022 take 325-650 mg by m outh every six hours as needed acetaminophen (Tylenol) 325 mg tablet Take 1-2 tablets (325-650 mg) by mouth every 6 hours if needed (pain). 0 01/22/2022 Active Start: 11-01-2021 End: 11-07-2021 take 3 tablets by mouth every eight hours acetaminophen 325 mg oral tablet ; 3 tab(s) orally every 8 hours -.Meds to Beds - .ADOD 11/01 Quantity: 63 Refills: 0 Ordered: 01-Nov-2021 Dian Jeffery Start: 01-Nov-2021 End: 07-Nov-2021 Generic Substitution Allowed Start: 08-27-2018 End: 12-29-2018 take 2 tablets by mouth every six hours Acetaminophen (Acetaminophen Extra Strength) 500 mg Tablet Discontinued 1000 MG PO Q6H August 27, 2018 1:00am December 29, 2018 8:54am Start: 09-08-2014 take 2 tablets by mo uth every six hours as needed acetaminophen (TYLENOL) 325 mg tablet Take 2 tablets by mouth every 6 hours as needed (Temp greater than 38.5C). 90 tablet 3 09/08/2014 Active Comment on above: Take 2 tablets by mo uth every 6 hours as needed (Temp greater than 38.5C). 0.4 ml adalimumab 100 mg/ml prefilled syringe (20 sources) Tumor Necrosis Factor Natacha Start: 11-27-2023 Adalimumab (Humira(Cf)) 40 mg/0.4 mL syringe kit Active 40 MG SUBCUT Q14D 2 November 27, 2023 12:00am Start: 05-01-2022 End: 09-09-2022 inject 0.8 mL by subcutaneous injection every other week adalimumab (HUMIRA) 40 mg/0.8 mL injection Inject 0.8 mL subcutaneously every 2 weeks. 2 Each 2 06/12/2022 Active Start: 05-01-2022 End: 05-02-2022 adalimumab (HUMIRA) 40 mg/0. 8 mL injection Inject 40mg (1 pen) subcutaneously on Day 29 and every two weeks thereafter 2 Each 6 05/01/2022 05/02/2022 Discontinued Start: 04-28-2020 End: 11-27-2023 inject 40 mg by subcutaneous injection every other week Adalimumab (Humira(Cf) Pen) 40 mg/0.4 mL pen injector kit Discontinued 40 MG SUBCUT EVERY 2 WEEKS April 28, 2020 12:00am November 27, 2023 10:51am INJECT 40MG SUBCUTANEOUSLY EVERY OTHER WEEK Comment on above: Inject 40 mg subcuta neously every 2 weeks. Inject 40mg (0.8ml) subcutaneously on Day 29 and every two weeks thereafter Inject 0.8 mL subcut aneously every 2 weeks. Inject 40mg (1 pen) subcutaneously on Day 29 and every two weeks thereafter Inject 0.8 mL subcut aneously every 2 weeks. Subcutaneously, Inject one pen on Day 29 and every two weeks thereafter amoxicillin 875 mg / clavulanate 125 mg oral tablet (1 source) Penicillin-class Antibacterial Start: 4 End: 4 amylase [id number] unt / lipase [id number] unt / protease [id number] unt delayed release oral capsule (20 sources) Start: take 2 capsules by mouth once daily at mealtime Lipase-Protease- Amylase (Creon) 36,000-114,000- 180,000 unit capsule,delayed release(DR/EC) Active 2 CAP PO Three times daily November 27, 2023 10:50am take 2 capsules 3x day with meals; take 1 capsule 3x day with snack as needed Start: 11-02-2023 End: 11-02-2023 1 capsule, oral, 3 times hernando ly with meals, First dose on Sat11/02/23 at 0930 Administer whole with food and sufficient fluid; do not crush or chew. Contents may be sprinkled on soft acidic food (such as applesauce or bananas) if swallowed immediately without chewing. If ordered per G-tube, thoroughly mix capsule contents into acidic food (applesauce or bananas). Stir gently; do not crush spheres. Within 15 minutes of mixing, give via a 35 mL slip-tip syringe into a 16F or larger diameter tube, then flush with ~10 mL of water. Start: 11-01-2023 End: 11-03-2023 2 capsule, oral, 3 times hernando ly with meals, First dose (after last modification) on Sat11/01/23 at 0815 Administer whole with food and sufficient fluid; do not crush or chew. Contents may be sprinkled on soft acidic food (such as applesauce or bananas) if swallowed immediately without chewing. If ordered per G-tube, thoroughly mix capsule contents into acidic food (applesauce or bananas). Stir gently; do not crush spheres. Within 15 minutes of mixing, give via a 35 mL slip-tip syringe into a 16F or larger diameter tube, then flush with ~10 mL of water. Start: 10-14-2023 pancrelipase, Kgr-Iakv-Idmj, (Creon) 12,000-38,000 -60,000 unit capsule Indications: H/O chronic pancreatitis Take 2 cap(s) 3x day with meals; take 1 cap(s) 3x day with snacks as needed 270 capsule 11 10/14/2023 Active Start: 10-14-2023 Start: 11-08-2021 take 1 capsule by mo [facility] three times daily pancrelipase, Zjd-Rcub-Cdci, (Creon) 12,000-38,000 -60,000 unit capsule Please take 1 capsule by mouth with each meal three times a day 0 11/08/2021 Active Start: 04-28-2020 End: 11-27-2023 take 2 capsules by mouth three times daily before mealtime eyryff-idhaxyai-gdzgtyq (CREON) 36,000-114,000- 180,000 unit delayed release capsule Take 2 capsules by mouth three times daily before meals. 0 06/14/2022 Active Start: 10-13-2019 End: 04-28-2020 take 49904-59016 capsules by mouth once Yqwudz-Ijnmyvdm-Fmakaik (Creon) 12,000-38,000 -60,000 unit Capsule,Delayed Release(Dr/Ec) Discontinued 2 CAP PO 3x/Day with meals and bedtime 90 October 13, 2019 1:00am April 28, 2020 12:15pm Start: 12-29-2018 End: 09-18-2019 take 05903-233115 capsules by mouth three times daily Dvobjg-Zutihmxe-Rutfbrm (Zenpep) 40,000-126,000- 168,000 unit Capsule,Delayed Release(Dr/Ec) Discontinued 2 CAP PO Three times daily December 29, 2018 12:00am September 18, 2019 2:30am Creon [address] 0 UNIT 3 capsules Orally with snacks Active Comment on above: Take 1 capsule by mo [facility] three times daily before meals. Take 2 capsules by m [facility] three times daily before meals. atomoxetine 60 mg oral capsule (20 sources) Norepinephrine Reuptake Inhibitor Start: 023 take 60 mg by mouth once daily Atomoxetine Active 60 MG PO Daily July 16, 2023 12:00am Comment on above: Take 60 mg by mouth once daily. auvelity 45-105 mg tablet extended release (4 sources) take 1 tablet by mouth every twenty-four hours Auvelity 45-105 MG 1 tablet in the morning Orally Once a day Active Auvelity 45-105 mg tablet, IR and ER, biphasic (6 sources) Start: 023 take 1 tablet by mouth once daily Auvelity 45-105 mg tablet, IR and ER, biphasic Take 1 tablet by mouth once daily. 0 06/24/2023 Active blood-glucose meter misc (1 source) Start: End: blood-glucose meter misc Indications: Type 1 diabetes mellitus without complication (CMS/HCC) Use to check glucose 3 times daily, before meals 1 each 0 10/29/2023 01/27/2024 Active blood-glucose sensor (Dexcom G7 Sensor) device (1 source) Start: blood-glucose sensor (Dexcom G7 Sensor) device Indications: Type 1 diabetes mellitus without complication (CMS/HCC) Change sensor every 10 days 3 each 11 11/14/2023 Active bupropion hydrochloride 105 MG / dextromethorphan hydrobromide 45 MG Extended Release Oral Tablet [Auvelity] (2 sources) take 1 tablet by mouth every twenty-four hours Auvelity 45-105 MG 1 tablet in the morning Orally Once a day Active chlorhexidine gluconate 1.2 mg/ml mouthwash (8 sources) Start: chlorhexidine (Peridex) 0.12 % solution Indications: Preop examination Use 15 mL in the mouth or throat see administration instructions for 2 doses. Use the night before and morning of surgery. 473 mL 0 09/20/2023 Active Start: 09-20-2023 End: 09-25-2023 chlorhexidine (Hibiclens) 4 % external liquid Indications: Preop examination Apply topically 2 times a day for 5 days. 473 mL 0 09/20/2023 09/25/2023 citalopram 20 mg oral tablet (4 sources) Serotonin Reuptake Inhibitor Start: 11-02-2023 take 20 mg by mouth once daily Citalopram Active 20 MG PO Daily November 27, 2023 12:00am clonazePAM 0.5 mg oral tablet (2 sources) Benzodiazepine take 1 tablet by mouth twice daily as needed clonazePAM 0.5 mg oral tablet ; 1 tab(s) orally 2 times a day, As Needed Quantity: 0 Refills: 0 Ordered: 06-Nov-2019 Mary Paiz Status: Discontinued Generic Substitution Allowed Creon 63539 UNIT (20 sources) Start: 02-06-2021 take 1 capsule by mouth three times daily at mealtime Creon 67860 UNIT 1 capsule Orally tid with meals January, Active Start: 02-06-2021 take 1 capsule by [facility] three times daily at mealtime Creon 08548 UNIT 1 capsule Orally tid with meals for 30 days January, Active cyanocobalamin, vitamin B-12 , (VITAMIN B-12 INJ) (1 source) cyanocobalamin, vitamin B-12, (VITAMIN B-12 INJ) Inject as directed. 0 Active Dextromethorphan-Bupropion (4 sources) Start: 07-16-2023 Dextromethorph an-Bupropion (Auvelity) 45-105 mg tablet,IR,delayed rel,biphasic Active TAB PO July 15, 2023 11:00pm Start: 07-16-2023 Dextromethorph an-Bupropion (Auvelity) 45-105 mg tablet,IR,delayed rel,biphasic Active TAB PO July 16, 2023 12:00am diphenhydrAMINE hydrochloride 25 mg oral capsule (1 source) Histamine-1 Receptor Antagonist Start: 10-31-2023 take 1 capsule by mouth every six hours as needed 25 mg, oral, Every 6 hours PRN, itching, Starting on Liz 10/31/23 at 2002 Drug or medicament (substance) (1 source) 0.4 ml enoxaparin sodium 100 mg/ml prefilled syringe (1 source) Low Molecular Weight Heparin Start: 11-01-2023 inject 40 mg by subcutaneous injection every twenty-four hours 40 mg, subcutaneous, Every 24 hours, First dose on Sat11/01/23 at 0300 Indications: venous thrombosis 72 hr fentaNYL 0.025 mg/hr transdermal system (2 sources) Opioid Agonist Start: 11-13-2023 End: 11-28-2023 fentaNYL (DURAGESIC) 25 mcg/hr Indications: History of pancreatectomy , Chronic abdominal pain , Palliative care by specialist Apply 1 Patch as directed every 72 hours for 15 days. Do not cut patch. 5 Patch 0 11/13/2023 11/28/2023 Active Comment on above: Apply 1 Patch as dir ected every 72 hours for 15 days. Do not cut patch. gabapentin 300 mg oral capsule (20 sources) Anti-epileptic Agent Start: 11-02-2023 take 1 capsule by mouth three times daily 800 mg, oral, 3 times daily, First dose (after last modification) on 11/02/23 at 1500 Capsules may be opened and sprinkled on food (eg, applesauce, orange juice, pudding). Cap sules may be opened and sprinkled on food (eg, applesauce, orange juice, pudding Start: 10-14-2023 End: 11-02-2023 take 1 capsule by mouth three times daily 600 mg, oral, 3 times daily, First dose (after last modification) on Liz 10/31/23 at 2100 Capsules may be opened and sprinkled on food (eg, applesauce, orange juice, pudding). Capsules may be opened and sprinkled on food (eg, applesauce, orange juice, pudding Start: 05-14-2021 take 1 tablet by jovana th three times daily gabapentin (Neurontin) 600 mg tablet Philippe e 1 tablet (600 mg) by mouth 3 times a day. 0 07/27/2022 Active Start: 05-14-2021 End: 07-27-2022 take 1 tablet by mouth three times daily gabapentin (NEURONTIN) 800 mg tablet Philippe e 800 mg by mouth three times daily. 0 05/14/2021 Active Start: 04-28-2020 End: 11-27-2023 take 2 capsules by mouth three times daily Gabapentin (Neurontin) 300 mg capsule Active 600 MG PO Three times daily November 27, 2023 10:58am Start: 10-13-2019 End: 04-28-2020 take 300 mg by mouth three times daily Gabapentin Discontinued 300 MG PO Three times daily October 13, 2019 1:00am April 28, 2020 11:27am Comment on above: Take 800 mg by mouth three times daily. glucagon (rdna) 1 mg injection (20 sources) Antihypoglycemic Agent Start: 10-31-2023 1 mg, intramuscular, Every 15 min PRN, low blood sugar - see comments, For blood glucose less than or equal to 70 mg/dL and no IV access, Starting on Liz 10/31/23 at 2002 Give until blood glucose is 100 mg/dL or greater. If patient DOES NOT HAVE secure IV access & patient is unconscious, NPO or is unable to eat or drink. Start: 12-12-2021 BAQSIMI 3 mg/a ctuation nasal spray Use 1 [place] in the nose as needed. 0 12/12/2021 Active Start: 12-11-2021 Baqsimi Two Pa ck 3 MG/DOSE as directed Nasally prn hypoglycemia, may repeat dose in 15 minutes for 1 days Nov, Active Start: 04-28-2020 End: 02-14-2021 Glucagon (Baqsimi) 3 mg/actu ation spray,non-aerosol Discontinued 0 .ROUTE .COMPLEX April 28, 2020 12:00am February 14, 2021 12:13pm instill 1 SPRAY INTO ONE NOSTRIL FOR HYPOGLYCEMIA. IF NO RESPONSE... (REFER TO PRESCRIPTION NOTES). Baqsimi Two Pack 3 MG/DOSE as directed Nasally prn hypoglycemia, may repeat dose in 15 minutes for 1 days Active Comment on above: Use 1 [place] in the n ose as needed. 50 ml glucose 500 mg/ml prefilled syringe (20 sources) Start: 10-31-2023 25 g, intravenous, Every 15 min PRN, For blood glucose less than or equal to 40 mg/dL, Starting on Liz 10/31/23 at 2002 May repeat until blood glucose level reaches 100 mg/dL or greater. Push 2 - 3 mL/minute if patient has secure IV access. Start: 10-31-2023 0.3 g/kg/hr 54 .6 kg (163.8 mL/hr), intravenous, Once as needed, For blood glucose less than 70 mg/dL after 30 minutes of intervention. Discontinue once blood glucose reaches 100 mg/dL., Starting on [facility] 10/31/23 at 2002, For 1 dose Discontinue once blood glucose reaches 100 mg/dL. Start: 10-13-2019 End: 04-28-2020 Glucose Discontinued 10 GM P O Q15M 354 October 13, 2019 1:00am April 28, 2020 11:30am until response Glutose 15 40 % 1 Orally Daily PRN for 30 day(s) Active Glutose 15 40 % 1 Orally Daily PRN for 30 day(s) Active 24 hr HYDROmorphone hydrochloride 8 mg extended release oral tablet (20 sources) Opioid Agonist Start: 12-06-2023 End: 12-17-2023 take 1 tablet by mouth twice daily HYDROmorphone (EXALGO) 8 mg ER tablet Indications: Palliative care by specialist , Chronic abdominal pain Take 1 tablet by mouth two times a day for 7 days. 14 tablet 0 12/10/2023 12/17/2023 Active Start: 11-02-2023 End: 11-02-2023 0.4 mg, intravenous, Once, O n 11/02/23 at 0400, For 1 dose Start: 11-01-2023 End: 11-01-2023 0.4 mg, intravenous, Once, O n 11/01/23 at 2100, For 1 dose Start: 11-01-2023 End: 11-01-2023 0.4 mg, intravenous, Once, O n 11/01/23 at 0645, For 1 dose Start: 11-01-2023 End: 11-01-2023 take 0.4 mg intravenously every four hours as needed 0.4 mg, intravenous, Every 4 hours PRN, pain severe (7-10), second line, Starting on Sat11/01/23 at 0242 Start: 07-16-2023 take 1 tablet by jovana th every eight hours Hydromorphone (Dilaudid) 8 mg Tablet Active 8 MG PO Q8H July 16, 2023 12:00am Start: 07-06-2022 End: 12-04-2023 take 1 tablet by mouth twice daily HYDROmorphone (EXAL GO) 8 mg ER tablet Indications: Palliative care by specialist , Chronic calcific pancreatitis (HCC) , Chronic abdominal pain Take 1 tablet by mouth two times a day for 30 days. 60 tablet 0 11/04/2023 11/13/2023 Discontinued (Changing Therapy/Dosage Form) Start: 06-22-2022 take 1 tablet by jovana th every four hours HYDROmorphone HCl - 2 MG Oral Tablet TAKE 1 TABLET Every 4 hours PRN pain Quantity: 180 Refills: 0 Ordered: 22-Jun-2022 Ramos Parekh MD Start : 22-Jun-2022 Active take 1 tablet by jovana th every twenty-four hours HYDROmorphone HCl ER 8 MG Oral Tablet Extended Release 24 Hour Quantity: 0 Refills: 0 Ordered: 27-Sep-2022 DO Active Comment on above: Take 1 tablet by jovana th twice daily for 30 days. Do not start before May 23, 2023. Take 1 tablet by jovana twice daily for 30 days. Take 1 tablet by jovana two times a day for 30 days. Take 1 tablet by jovana two times a day for 7 days. Insulin Aspart U-100 (Novolog Flexpen U-100 Insulin) 100 unit/mL (3 mL) insulin pen (1 source) Start: 11-27-19 Insulin Aspart U-100 (Novolog Flexpen U-100 Insulin) 100 unit/mL (3 mL) insulin pen Active 1 sliding scale dose SUBCUT 3X/Day with meals and bedtime November 27, 2023 10:51am 0-5 units 3 times a day with meals insulin degludec 100 unt/ml injectable solution (7 sources) Insulin Analog Start: 11-06-19 inject 4 [IU] by subcutaneous injection once daily insulin degludec (Tresiba) 100 unit/mL injection Indications: Diabetic ketoacidosis without coma associated with type 1 diabetes mellitus (CMS/HCC) Inject 4 Units under the skin once daily. Take as directed per insulin instructions. 0 11/06/2023 Active Start: 11-06-2023 Start: 11-03-2023 End: 11-05-2023 inject 6 [IU] by subcutaneous injection once daily 6 Units, subcutaneous, Daily, First dose (after last modification) on Sat11/06/23 at 0900 Start: 11-02-2023 inject 3 [IU] by sub cutaneous injection once 3 Units, subcutaneous, Once, On 11/02/23 at 1630, For 1 dose Start: 11-02-2023 End: 11-02-2023 inject 3 [IU] by subcutaneous injection once daily 3 Units, subcutaneous, Daily, First dose (after last modification) on 11/02/23 at 1030 Start: 11-01-2023 End: 11-02-2023 inject 3 [IU] by subcutaneous injection every twenty-four hours 3 Units, subcutaneous, Every 24 hours, First dose on Sat11/01/23 at 1200 Insulin Degludec (Tresiba Flextouch U-100) 100 unit/mL (3 mL) insulin pen (1 source) Start: 11-27-2023 inject 4 [IU] by subcutaneous injection once daily Insulin Degludec (Tresiba Flextouch U-100) 100 unit/mL (3 mL) insulin pen Active 4 UNIT SUBCUT Daily November 27, 2023 12:00am 3 ml insulin glargine 100 unt/ml pen injector (20 sources) Insulin Analog Start: 07-24-2023 End: 11-06-2023 Start: 04-28-2020 inject 8 [IU] by sub cutaneous injection once daily in the morning Insulin Glargine (Lantus Solostar U-100 Insulin) 100 unit/mL (3 mL) insulin pen Active 8 UNIT SUBCUT Every morning April 28, 2020 12:00am INJECT 8 UNITS SUBCUTANEOUSLY ONCE DAILY inject 20 [IU] by brooks bcutaneous injection every twenty-four hours insulin glargine (LANTUS SOLOSTAR, BASAGLAR KWIKPEN) 100 unit/mL (3 mL) Inject 20 Units subcutaneously q 24 HR. 0 Active End: 11-06-2023 inject 20 [IU] by brooks bcutaneous injection every twenty-four hours insulin glargine (LANTUS SOLOSTAR, BASAGLAR KWIKPEN) 100 unit/mL (3 mL) Inject 20 Units subcutaneously q 24 HR. 0 Active Comment on above: Inject 20 Units subc utaneously q 24 HR. 3 ml insulin isophane, human 100 unt/ml pen injector (1 source) Start: 10-29-19 End: 11-06-19 insulin lispro 100 unt/ml injectable solution (20 sources) Insulin Analog Start: 11-06-19 inject 3 [IU] by subcutaneous injection once 3 Units, subcutaneous, Once, On Sat11/06/23 at 0245, For 1 dose Please administer to patient now and recheck blood glucose in 1 hr Start: 11-05-2023 End: 11-06-2023 insulin lispro (HumaLOG) 100 unit/mL injection Indications: Diabetic ketoacidosis without coma associated with type 1 diabetes mellitus (CMS/HCC) Inject 0-0.05 mL (0-5 Units) under the skin 3 times a day with meals. Take as directed per insulin instructions. 0 11/06/2023 Active Start: 11-02-2023 End: 11-06-2023 0-5 Units, subcutaneous, Genevieve ry 4 hours, First dose on 11/02/23 at 1900 Customized insulin sliding scale: Hypoglycemia protocol Call LIP unit(s) if Blood Glucose is between 0 - 70 mg/dL 0 unit(s) if Blood glucose is between 151-200 1 unit(s) if Blood glucose is between 201-250 2 unit(s) if Blood glucose is between 251-300 3 unit(s) if Blood glucose is between 301-350 4 unit(s) if Blood glucose is between 351-400 Notify provider unit(s) if Blood Glucose is greater than 400 mg/dL Start: 11-02-2023 End: 11-02-2023 inject 2 [IU] by subcutaneous injection three times daily at mealtime 2 Units, subcutaneous, 3 times daily with meals, First dose on Sat11/02/23 at 1245 Start: 11-02-2023 End: 11-02-2023 0-5 Units, subcutaneous, 6 t imes daily, First dose on Sat11/02/23 at 0700 Insulin Lispro Corrective Scale #1 Hypoglycemia protocol Call LIP unit(s) if Blood Glucose is between 0 - 70 mg/dL 0 unit(s) if Blood glucose is between 71-150 1 unit(s) if Blood glucose is between 151-200 2 unit(s) if Blood glucose is between 201-250 3 unit(s) if Blood glucose is between 251-300 4 unit(s) if Blood glucose is between 301-350 5 unit(s) if Blood glucose is between 351-400 Notify provider unit(s) if Blood Glucose is greater than 400 mg/dL Start: 11-02-2023 inject 2 [IU] by sub cutaneous injection once 2 Units, subcutaneous, Once, On Sat11/02/23 at 0315, For 1 dose Start: 11-01-2023 End: 11-02-2023 0-5 Units, subcutaneous, 3 t imes daily with meals, First dose on Sat11/01/23 at 1700 Insulin Lispro Corrective Scale #1 Hypoglycemia protocol Call LIP unit(s) if Blood Glucose is between 0 - 70 mg/dL 0 unit(s) if Blood glucose is between 71-150 1 unit(s) if Blood glucose is between 151-200 2 unit(s) if Blood glucose is between 201-250 3 unit(s) if Blood glucose is between 251-300 4 unit(s) if Blood glucose is between 301-350 5 unit(s) if Blood glucose is between 351-400 Notify provider unit(s) if Blood Glucose is greater than 400 mg/dL Start: 10-29-2023 End: 11-06-2023 Start: 07-24-2023 HUMALOG KWIKPE N INSULIN 100 unit/mL 1:30 ICR 3 TIMES A DAY BEFORE MEALS. CORRCTIVE SCALE 1:50 BEFORE MEALS 0 09/02/2023 Active Start: 02-20-2021 inject 40 [IU] by brooks bcutaneous injection once daily Insulin Lispro 100 UNIT/ML Up to 40 units daily in Insulin pump Subcutaneous Daily for 30 day(s) Feb, Active Start: 11-12-2019 insulin lispro 100 units/mL injectable solution ; INSULIN PUMP PER ENDOCRINE Quantity: 0 Refills: 0 Ordered: 22-Jan-2022 Marilee Dukes Start: 12-Nov-2019 Generic Substitution Allowed Start: 11-12-2019 insulin lispro 100 units/mL injectable solution ; injectable Quantity: 0 Refills: 0 Ordered: 12-Nov-2019 Troy Salcedo Start: 12-Nov-2019 Generic Substitution Allowed Start: 11-12-2019 insulin lispro (HUMALOG KWIKPEN) 100 unit/mL Inject subcutaneously. 0 11/12/2019 Active Start: 11-12-2019 Insulin Lispro 100 UNIT/ML Subcutaneous Solution per insulin pump Quantity: 0 Refills: 0 Ordered: 29-May-2021 DO Start : 22-Feb-2021 Active inject 6 [IU] by sub cutaneous injection once daily before mealtime Insulin Lispro 100 UNIT/ML per sliding scale ac TID and HS: 150-190 = 1 unit, 200-249 = 2 units, 250-299 = 3 units, 300-349 = 4 units, 350-399 = 5 units, greater than or = 400 take 6 units and call provider; Subcutaneous Daily Active Comment on above: Inject subcutaneousl y. 1:30 ICR 3 TIMES A D AY BEFORE MEALS. CORRCTIVE SCALE 1:50 BEFORE MEALS isopropyl alcohol 0.7 ml/ml medicated pad (2 sources) Start: 10-29-2023 End: 12-18-2023 alcohol swabs pads, medicated Indications: Type 1 diabetes mellitus without complication (CMS/HCC) Apply 5 each topically once daily. Use prior to checking glucose or injecting insulin 200 each 10/29/2023 12/18/2023 Active Start: 10-29-2023 End: 12-18-2023 Paulina 24 FE oral tablet (1 source) take 1 tablet by mouth once daily Paulina 24 FE oral tablet ; 1 tab(s) orally once a day Quantity: 0 Refills: 0 Ordered: 16-Jan-2022 Ghada Kuo Status: Other Generic Substitution Allowed lidocaine 0.04 mg/mg medicated patch (2 sources) Antiarrhythmic, Amide Local Anesthetic Start: apply 1 dose transdermal route once daily 1 patch, transdermal, Administer over 12 Hours, Daily, First dose on 11/02/23 at 0630 Apply to back. Patch will remain on for 12 hours, then removed for [address] patch directly over any surgical incisions or wounds. Start: 10-31-2023 End: 10-31-2023 50 mg (5 mL), infiltration, Once, On Liz 10/31/23 at 2200, For 1 dose loperamide hydrochloride 2 mg oral tablet (20 sources) Opioid Agonist Start: 11-08-2021 loperamide (Im odium A-D) 2 mg tablet TAKE 2 TABLETS BY MOUTH INITIALLY, FOLLOWED BY 1 TABLET AFTER EACH LOOSE BOWEL MOVEMENT. DO NOT EXCEED 8 TABLETS/DAY. 0 11/08/2021 Active Start: 07-28-2021 loperamide HCl (IMODIUM) 2 mg tab Take by mouth. 0 07/28/2021 Active Start: 07-28-2021 take 2 mg by mouth twice daily Loperamide Active 2 MG PO Twice daily 60 30 July 28, 2021 1:00am take 1 tablet by jovana th every twelve hours Loperamide HCl 2 MG 1 tablet as needed Orally BID Active Comment on above: Take by mouth. LORazepam 0.5 mg oral tablet (20 sources) Benzodiazepine Start: 11-01-2023 take 0.5 mg by mouth every eight hours as needed 0.5 mg, oral, Every 8 hours PRN, anxiety, Starting on Sat11/01/23 at 1039 Start: 10-14-2023 take 1 tablet by jovana th four times daily as needed for anxiety LORazepam (Ativan) 0.5 mg tablet Indications: Anxiety and depression Take 1 tablet (0.5 mg) by mouth 4 times a day as needed for anxiety. 30 tablet 0 10/14/2023 Active Start: 09-20-2023 End: 11-13-2023 take 1 tablet by mouth every twelve hours LORazepam (ATIVAN) 0.5 mg Take 1 tablet by mouth every 12 hours. 0 09/20/2023 Active Start: 07-27-2022 take 0.5 mg by mouth twice daily Lorazepam Active 0.5 MG PO Twice daily July 16, 2023 12:00am Start: 02-28-2022 take 1 tablet by jovana th twice daily LORazepam 0.5 MG Oral Tablet take 1 tablet by mouth twice a day Quantity: 60 Refills: 0 Ordered: 28-Feb-2022 DO Start : 28-Feb-2022 Active Start: 01-22-2022 End: 02-15-2022 LORazepam 0.5 mg oral tablet ; 1 tab(s) orally 2 times a day, As Needed -significant anxiety while on prednisone - .ADOD - .Meds to Beds 5/ 1300 Quantity: 50 Refills: 0 Ordered: 22-Jan-2022 Ctahy Donato Start: 22-Jan-2022 End: 15-Feb-2022 Generic Substitution Allowed Start: 04-28-2020 End: 02-14-2021 take 1 tablet by mouth twice daily for anxiety Lorazepam (Ativan) 0.5 mg tablet Discontinued 0.5 MG PO Twice daily April 27, 2020 11:00pm February 14, 2021 11:13am take 1 tablet by mouth twice a day if needed for anxiety Start: 07-15-2018 End: 04-28-2020 take 0.5 mg by mouth four times daily Lorazepam Discontinued 0.5 MG PO Four times daily 0 September 25, 2019 3:04pm January 06, 2020 10:38pm Comment on above: Take 0.5 mg by mouth two times a day. Take 1 tablet by jovana th every 12 hours. 50 ml magnesium sulfate 40 mg/ml injection (1 source) Start: 11-01-19 take 2 g intravenously every six hours as needed 2 g, intravenous, at 25 mL/hr, Administer over 2 Hours, Every 6 hours PRN, magnesium level 1.7-1.9 mg/dL, Starting on Sat11/01/23 at 0235 methocarbamol 500 mg oral tablet (1 source) Muscle Relaxant Start: 11-01-19 take 500 mg by mouth every six hours 500 mg, oral, Every 6 hours scheduled, First dose on Sat11/01/23 at 1200 24 hr nicotine 0.875 mg/hr transdermal system (19 sources) Cholinergic Nicotinic Agonist Start: 11-27-19 apply 1 dose transdermal route once daily, then apply 1 dose transdermal route every twenty-four hours Nicotine (Nicoderm Cq) 21 mg/24 hr patch 24 hour Active 1 PATCH TRANSDERML Daily November 27, 2023 12:00am Start: 11-04-2023 apply 1 dose transde rmal route once daily 1 patch, transdermal, Administer over 24 Hours, Daily, First dose on Sat11/04/23 at 1045 Start: 10-15-2023 apply 1 dose transde rmal route every twenty-four hours nicotine (Nicoderm CQ) 21 mg/24 hr patch Indications: 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) Place 1 patch on the skin once every 24 hours. Do not start before October 15, 2023. 30 patch 0 10/15/2023 Active Start: 10-15-2023 End: 11-14-2023 Start: 08-27-2022 apply 1 dose transde rmal route every twenty-four hours nicotine (Nicoderm CQ) 21 mg/24 hr patch apply 1 patch to CLEAN, DRY, AND INTACT SKIN REMOVE AND REPLACE every 24 hours 0 08/27/2022 Active Start: 08-27-2022 apply 1 dose transde rmal route every twenty-four hours Nicotine 21 MG/24HR Transdermal Patch 24 Hour apply 1 patch to CLEAN, DRY, AND INTACT SKIN REMOVE AND REPLACE every 24 hours Quantity: 0 Refills: 0 Ordered: 27-Aug-2022 DO Start : 27-Aug-2022 Active octreotide 20 mg injection (1 source) Somatostatin Analog Start: 10-24-2023 End: 11-06-2023 One Touch Ultra Mini Glucometer 1 meter (20 sources) One Touch Ultra Mini Glucometer 1 meter as directed SQ qid for 365 days E10.9 Active oxyCODONE hydrochloride 15 mg oral tablet (20 sources) Opioid Agonist Start: 11-01-2023 End: 11-02-2023 take 15 mg by mouth every six hours as needed 15 mg, oral, Every 6 hours PRN, pain severe (7-10), first line, Starting on Sat11/01/23 at 1456 If ordered PRN for pain, nurse is permitted to administer this medication for higher pain scores based on patient preference? Yes Start: 11-01-2023 End: 11-01-2023 take 10 mg by mouth every four hours as needed 10 mg, oral, Every 4 hours PRN, pain severe (7-10), first line, Starting on Sat11/01/23 at 0747 If ordered PRN for pain, nurse is permitted to administer this medication for higher pain scores based on patient preference? Yes Start: 10-31-2023 End: 11-01-2023 take 10 mg by mouth every six hours as needed 10 mg, oral, Every 6 hours PRN, pain moderate (4-6), first line, Starting on Sat11/01/23 at 1456 If ordered PRN for pain, nurse is permitted to administer this medication for higher pain scores based on patient preference? Yes Start: 10-30-2023 End: 11-06-2023 take 15 mg by mouth every four hours as needed 15 mg, oral, Every 4 hours PRN, pain severe (7-10), first line, Starting on Sat11/02/23 at 2115 If ordered PRN for pain, nurse is permitted to administer this medication for higher pain scores based on patient preference? Yes Start: 01-22-2022 End: 01-26-2022 take 1 tablet by mouth every four hours as needed oxyCODONE 10 mg oral tablet ; 1 tab(s) orally every 4 hours, As needed, Pain - Severe (7-10). STOP 01/27/22 Quantity: 30 Refills: 0 Ordered: 22-Jan-2022 Cathy Donato Start: 22-Jan-2022 End: 26-Jan-2022 Generic Substitution Allowed Start: 11-17-2021 End: 12-29-2023 take 1 tablet by mouth every four hours as needed for pain oxyCODONE (ROXICODONE) 15 mg immediate release tablet Indications: Palliative care by specialist , Chronic calcific pancreatitis (HCC) , Chronic abdominal pain Take 1 tablet by mouth every 4 hours as needed for pain for up to 30 days. 180 tablet 0 11/29/2023 12/29/2023 Active Start: 11-17-2021 End: 05-17-2023 oxyCODONE IR (ROXICODONE) 5 mg immediate release tablet Take 5 mg by mouth as needed. 0 03/23/2022 05/17/2023 Discontinued (Course of therapy completed) Start: 11-17-2021 take 1 tablet by jovana th every eight hours oxyCODONE HCl - 5 MG Oral Tablet TAKE 1 TABLET Every 8 hours PRN pain Quantity: 90 Refills: 0 Ordered: 17-Nov-2021 Ramos Parekh MD Start : 17-Nov-2021 Active Start: 11-01-2021 End: 11-05-2021 oxyCODONE 10 mg oral tablet ; 1 tab(s) orally 3 times a day, As Needed -Pain - Severe (7-10) - .Meds to Beds - .ADOD 11/01 Quantity: 15 Refills: 0 Ordered: 01-Nov-2021 Dian Jeffrey Start: 01-Nov-2021 End: 05-Nov-2021 Generic Substitution Allowed take 1 tablet by jovana th every six hours as needed oxyCODONE (Roxicodone) 5 mg immediate release tablet Take 1 tablet (5 mg) by mouth every 6 hours if needed. 0 Active Comment on above: Take 5 mg by mouth a s needed. Take 1 tablet by jovana th every 4 hours as needed for pain for up to 30 days. 72 hr scopolamine 0.0139 mg/hr transdermal system (1 source) Anticholinergic Start: 11-05-19 End: 12-06-19 Scopolamine Base (1 source) Start: 11-27-19 Scopolamine Base Active 1 PATCH TRANSDERML Every 72 hours November 27, 2023 12:00am sodium zirconium cyclosilicate 97063 mg powder for oral suspension (1 source) Start: 11-05-19 End: 11-07-19 take 10 g by mouth every eight hours 10 g, oral, Every 8 hours, First dose on Sat11/05/23 at 0945, For 6 doses Empty entire contents of packet(s) into 45 mL water. Stir well and administer immediately. If powder remains, rinse glass with water and administer. thiamine 100 mg oral tablet (1 source) Start: 11-02-19 End: 11-09-19 take 100 mg by mouth once daily 100 mg, oral, Daily, First dose on Sat11/02/23 at 1215, For 7 days traZODone hydrochloride 50 mg oral tablet (20 sources) Serotonin Reuptake Inhibitor Start: 11-02-19 take 200 mg by mouth once 200 mg, oral, Once, On Sat11/02/23 at 2315, For 1 dose Start: 06-01-2022 take 1 tablet by jovana th once daily at bedtime traZODone (DESYREL) 100 mg tablet Take 100 mg by mouth daily at bedtime. 0 06/01/2022 Active Start: 01-25-2021 take 2 tablets by mo uth at bedtime traZODone HCl - 100 MG Oral Tablet TAKE 2 TABLETS BY MOUTH AT BEDTIME Quantity: 0 Refills: 0 Ordered: 13-Jun-2021 DO Start : 25-Jan-2021 Active Start: 04-28-2020 take 1 tablet by jovana th once daily in the evening Trazodone Active 200 MG PO Daily at bedtime April 28, 2020 12:00am take 1 tablet by mouth every evening Start: 07-15-2018 End: 04-30-2022 take 50 mg by mouth once daily at bedtime Trazodone Discontinued 50 MG PO Daily at bedtime July 15, 2018 12:00am April 28, 2020 11:27am traZODone ; 200 orally once a day Quantity: 0 Refills: 0 Ordered: 24-Oct-2021 Kerry Benavides Status: Other Generic Substitution Allowed take 200 mg by mouth once daily at bedtime traZODone ; 200 milligram(s) orally once a day (at bedtime) Quantity: 0 Refills: 0 Ordered: 24-Oct-2021 Vicky Garcia Generic Substitution Allowed Comment on above: Take 100 mg by mouth daily at bedtime. Vitamin B12 3000 MCG (20 sources) Vitamin B12 3000 MCG as directed Sublingual Active (1 source) Start: 06-24-2023 End: 11-06-2023 (1 source) Start: 10-29-2023 End: 01-27-2024 (1 source) Start: 10-29-2023 End: 12-01-2023 (1 source) Start: 10-29-2023 (1 source) Start: 10-29-2023 End: 12-08-2023 (4 sources) Start: 11-04-2023 take 2 capsules by mouth three times daily at mealtime [Order 1 Start] Name: pancrelipase (Cqp-Hpnb-Cxzl) (Creon) 36,000-114,000- 180,000 unit per capsule 2 capsule Signed Summary: 2 capsule, oral, 3 times daily with meals, First dose (after last modification) on Sat11/04/23 at 0800 Administer whole with food and sufficient fluid; do not crush or chew. Contents may be sprinkled on soft acidic food (such as applesauce or bananas) if swallowed immediately without chewing. If ordered per G-tube, thoroughly mix capsule contents in to acidic food (applesauce or bananas). Stir gently; do not crush spheres. Within 15 minutes of mixing, give via a 35 mL slip-tip syringe into a 16F or larger diameter tube, then flush with ~10 mL of water. [Order 1 End] [Order 2 Start] Name: pancrelipase (Rsy-Vndx-Fggb) (Creon) 36,000-114,000- 180,000 unit per capsule 1 capsule Signed Summary: 1 capsule, oral, As needed, snacks, Starting on Sat11/04/23 at 0721 Administer whole with food and sufficient fluid; do not crush or chew. Contents may be sprinkled on soft acidic food (such as applesauce or bananas) if swallowed immediately without chewing. If ordered per G-tube, thoroughly mix capsule contents in to acidic food (applesauce or bananas). Stir gently; do not crush spheres. Within 15 minutes of mixing, give via a 35 mL slip-tip syringe into a 16F or larger diameter tube, then flush with ~10 mL of water. [Order 2 End] Start: 11-03-2023 End: 11-04-2023 Start: 11-01-2023 End: 11-02-2023 30 mmol, intravenous, at 32. 5 mL/hr, Administer over 8 Hours, Once, On Sat11/01/23 at 2245, For 1 dose Each 3 mmol contains 4.4 mEq potassium. Start: 11-01-2023 take 6.25 mg intrave nously every six hours as needed 6.25 mg, intravenous, Administer over 15 Minutes, Every 6 hours PRN, nausea/vomiting, first line, Starting on Sat11/01/23 at 1455 Completed/Discontinued Medications Medication Drug Class(es) Dates Sig (Normalized) Sig (Original) acetaminophen 325 mg / HYDROcodone bitartrate 5 mg oral tablet (5 sources) Opioid Agonist Start: 07-28-2021 End: 07-16-2023 take 1 tablet by mouth every six hours Hydrocodone-Acetami nophen Discontinued 1 TAB PO Q6H 20 July 28, 2021 July 16, 2023 2:51am acetaminophen 325 mg / oxyCODONE hydrochloride 5 mg oral tablet (20 sources) Opioid Agonist Start: 2021 End: 11-13-2021 take 1 tablet by mouth every six hours as needed for pain oxycodone-acetamino phen 5 mg-325 mg oral tablet ; 1 tab(s) orally every 6 hours as needed for severe pain (7-10) Quantity: 20 Refills: 0 Ordered: 09-Nov-2021 Antonino Eldridge Start: 09-Nov-2021 End: 13-Nov-2021 Status: Discontinued Generic Substitution Allowed Comments: Caution federal law prohibits the transfer of this drug to any person other than the person for whom it was prescribed.May cause drowsiness. Alcohol may intensify this effect. Use care when operating dangerous machinery.This prescription cannot be refilled.This product contains acetaminophen. Do not use with any other product containing acetaminophen to prevent possible liver damage.Using more of this medication than prescribed may cause serious breathing problems. Start: 11-08-2021 take 1 tablet by jovana th every four to six hours as needed for pain oxyCODONE-Acetaminophen 5-325 MG Oral Tablet TAKE 1 TABLET EVERY 4 TO 6 HOURS NEEDED FOR PAIN. Quantity: 24 Refills: 0 Ordered: 09-Nov-2021 Antonino Eldridge MD Start : 08-Nov-2021 Active Start: 01-08-2020 End: 04-28-2020 take 1 tablet by mouth every six hours Oxycodone-Acetaminophen Discontinued 1 T AB PO Q6H 20 January 08, 2020 April 28, 2020 12:15pm Start: 10-08-2019 End: 01-08-2020 take 1 tablet by mouth twice daily Oxycodone-Acetaminophen Discontinued 1 T AB PO Twice daily 0 October 13, 2019 10:56am January 08, 2020 2:23pm Start: 09-25-2019 End: 10-07-2019 take 1 tablet by mouth every four hours Oxycodone-Acetaminophen Discontinued 1 T AB PO Q4H 10 September 25, 2019 October 07, 2019 7:36pm Start: 12-31-2018 End: 09-18-2019 take 1 tablet by mouth every six hours Oxycodone-Acetaminophen Discontinued 1 T AB PO Q6H 20 December 31, 2018 September 18, 2019 2:30am Start: 08-29-2018 End: 12-29-2018 take 1 tablet by mouth every eight hours Oxycodone-Acetaminophen (Percocet) 5-325 mg tablet Discontinued 1 TAB PO Every 8 hours 05 04August 29, 2018 December 29, 2018 8:54am Comment on above: Caution federal law prohibits the transfer of this drug to any person other than the person for whom it was prescribed.May cause drowsiness. Alcohol may intensify this effect. Use care when operating dangerous machinery.This prescription cannot be refilled.This product contains acetaminophen. Do not use with any other product containing acetaminophen to prevent possible liver damage.Using more of this medication than prescribed may cause serious breathing problems. acyclovir 400 mg oral tablet (20 sources) Herpesvirus Nucleoside Analog DNA Polymerase Inhibitor, Herpes Simplex Virus Nucleoside Analog DNA Polymerase Inhibitor, Herpes Zoster Virus Nucleoside Analog DNA Polymerase Inhibitor Start: End: 4 acyclovir (ZOVIRAX) 400 mg tablet Take 400 mg by mouth. 0 03/18/2021 Active Comment on above: Take 400 mg by mouth . AUVELITY 45-105 mg tablet (12 sources) Start: 3 take 1 tablet by mouth once AUVELITY 45-105 mg tablet Take 1 tablet by mouth every afternoon. 0 07/22/2023 Active Comment on above: Take 1 tablet by jovana th every afternoon. B-12 - up to 1000 mcg (20 sources) Start: B-12 - up to 1000 mcg Mar, 1000 mcg Start: 12-17-2022 B-12 - up to 1 000 mcg Dec, 1000 mcg budesonide 3 mg delayed release oral capsule (5 sources) Corticosteroid Start: 12-29-2018 End: 09-18-2019 take 3 mg by mouth once daily Budesonide Discontinued 3 MG PO Daily December 29, 2018 12:00am September 18, 2019 2:30am 168 hr buprenorphine 0.005 mg/hr transdermal system (2 sources) Partial Opioid Agonist Start: 11-18-2023 End: 12-16-2023 apply 1 dose transdermal route every week buprenorphine (BUTRANS) 5 mcg/hour Indications: Palliative care by specialist , Chronic abdominal pain Apply 1 Patch as directed one time a week for 28 days. 4 Patch 0 11/18/2023 12/06/2023 Discontinued (Side Effects) Comment on above: Apply 1 Patch as dir ected one time a week for 28 days. busPIRone hydrochloride 10 mg oral tablet (20 sources) Start: 05-18-2022 take 1 tablet by mouth twice daily busPIRone (BUSPAR) 10 mg tablet Take 10 mg by mouth twice daily. 0 05/18/2022 Active Start: 06-01-2021 take 1 tablet by jovana th twice daily busPIRone HCl - 15 MG Oral Tablet take 1 tablet by mouth twice a day Quantity: 0 Refills: 0 Ordered: 01-Jun-2021 DO Start : 01-Jun-2021 Active Comment on above: Take 10 mg by mouth twice daily. calcium chloride 0.0014 meq/ml / potassium chloride 0.004 meq/ml / sodium chloride 0.103 meq/ml / sodium lactate 0.028 meq/ml injectable solution (7 sources) Start: 11-01-2023 End: 11-04-2023 take 30 mL intravenously every hour 30 mL/hr, intravenous, Continuous, Starting on Sat11/01/23 at 2145 Start: 11-01-2023 End: 11-01-2023 1,000 mL, intravenous, at 50 0 mL/hr, Administer over 2 Hours, Once, On Sat11/01/23 at 0845, For 1 dose cariprazine 1.5 mg oral capsule (20 sources) Atypical Antipsychotic Start: 03-01-2023 take 1 capsule by mouth once VRAYLAR 1.5 mg capsule Take 1 capsule by mouth every afternoon. 0 09/20/2023 Active Comment on above: Take 1.5 mg by mouth once daily. Take 1 capsule by mo [facility] every afternoon. cholecalciferol 0.025 mg oral capsule (20 sources) Vitamin D Start: 11-27-2023 End: 12-05-2023 take 25 ug by mouth once daily Cholecalciferol (Vitamin D3) Discontinued 25 MCG PO Daily December 05, 2023 12:00am December 05, 2023 11:30am Start: 01-22-2022 End: 02-20-2022 take 1 capsule by mouth once daily Vitamin D3 25 mcg (1000 intl units) oral capsule ; 1 cap(s) orally once a day Quantity: 30 Refills: 0 Ordered: 22-Jan-2022 Adoor, Dayyan Start: 22-Jan-2022 End: 20-Feb-2022 Generic Substitution Allowed Start: 01-22-2022 take 1 tablet by jovana th once daily cholecalciferol (VITAMIN D3) 1,000 unit tab tablet Take 1,000 Units by mouth once daily. 0 01/22/2022 Active Start: 01-22-2022 take 1 tablet by jovana th once daily cholecalciferol (Vitamin D-3) 25 MCG (1000 UT) tablet Take 1 tablet (25 mcg) by mouth once daily. 0 01/22/2022 Active Comment on above: Take 1,000 Units by mouth once daily. ciprofloxacin 250 mg oral tablet (6 sources) Quinolone Antimicrobial Start: 03-29-20 End: 04-30-20 take 1 tablet by mouth twice daily Ciprofloxacin HCl - 250 MG Oral Tablet take 1 tablet by mouth twice a day Quantity: 14 Refills: 0 Ordered: 29-Mar-2022 DO Start : 29-Mar-2022 Complete Comment on above: Take 250 mg by mouth twice daily. cloNIDine hydrochloride 0.1 mg oral tablet (20 sources) Central alpha-2 Adrenergic Agonist Start: 06-20-20 take 1 tablet by mouth once daily at bedtime cloNIDine HCl (CATAPRES) 0.1 mg tablet Take 0.1 mg by mouth daily at bedtime. 0 09/20/2023 Active Start: 03-01-2023 take 1 tablet by jovana once daily at bedtime as needed cloNIDine HCl - 0.1 MG Oral Tablet TAKE 1 TABLET BY MOUTH EVERY DAY AT BEDTIME NEEDED Quantity: 30 Refills: 5 Ordered: 01-Mar-2023 DO Start : 01-Mar-2023 Active cloNIDine 0.1 MG /24HR 1 patch to skin Transdermal Active Comment on above: Take 0.1 mg by mouth daily at bedtime. Contour Blood Glucose System w/Device (20 sources) Start: 09-26-2021 Contour Blood Glucose System w/Device use with Contour Next strips as directed daily for 365 days E10.65 11 Sep, 2021 Not-Taking Contour Next Test - (20 sources) Start: 10-26-2019 Contour Next Test - Use 1 test strip with Contour meter In Vitro qid for 90 day(s) E10.65 10 Oct, 2019 Not-Taking cyanocobalamin, vitamin B-12, 3,000 mcg cap (20 sources) take 1 capsule by mouth every month cyanocobalamin, vitamin B-12, 3,000 mcg cap Take 1 capsule by mouth once every month. 0 Suspended take 1 capsule by mouth every mo [facility] cyanocobalamin, vitamin B-12, 3,000 mcg cap Take 1 capsule by mouth once every month. 0 Active Comment on above: Take 1 capsule by [facility] once every month. dextromethorphan hydrobromide 15 mg / guaiFENesin 400 mg / pseudoephedrine hydrochloride 60 mg oral tablet (20 sources) alpha-Adrenergic Agonist, Uncompetitive B-pqrhfm-N-aspartate Receptor Antagonist, Sigma-1 Agonist Start: 01-14-20 take 4 tablets by mouth every twenty-four hours as needed Capmist DM 60-15-400 MG as needed Orally every 4-6 hours as needed, max 4 tablets in 24 hours for 5 days Dec, Not-Taking Start: 01-13-2022 End: 04-30-2022 ksvacqauzsmcdqd-MZ-tcetLSPen in 60-15-400 mg tab Take 1 tablet by mouth as needed. 0 01/13/2022 04/30/2022 Discontinued (Discontinued by Patient) Comment on above: Take 1 tablet by [facility] as needed. doxycycline monohydrate 100 mg oral capsule (20 sources) Tetracycline-class Drug Start: 05-14-20 take 1 capsule by mouth every twelve hours Doxycycline Monohydrate 100 MG 1 capsule Orally every 12 hrs for 7 days Apr, Not-Taking Comment on above: Take 1 capsule by [facility] q 12 HR. DULoxetine 60 mg delayed release oral capsule (20 sources) Serotonin and Norepinephrine Reuptake Inhibitor Start: 06-01-20 take 1 capsule by mouth once daily DULoxetine (CYMBALTA) 60 mg capsule Take 60 mg by mouth once daily. 0 06/01/2021 Active Start: 02-14-2021 End: 07-16-2023 take 3 capsules by mouth once daily Duloxetine (Cymbalta) 20 mg Capsule,Delayed Release(Dr/Ec) Discontinued 60 MG PO Daily February 14, 2021 12:00am July 16, 2023 2:51am take 1 capsule by [facility] every twenty-four hours Cymbalta 20 MG 1 capsule Orally Once a day Active Comment on above: Take 60 mg by mouth once daily. 200 ml fluconazole 2 mg/ml injection (6 sources) Azole Antifungal Start: 11-01-2023 End: 11-03-2023 400 mg, intravenous, Every 24 hours, First dose on Sat11/01/23 at 0300 premix bag Coverage: Thalia albicans, Fusarium Infection Site: Abdominal Start: 10-07-2019 End: 10-13-2019 take 100 mg by mouth once daily Fluconazole Discontinued 100 MG PO Daily October 07, 2019 1:00am October 13, 2019 11:00am started 10/04/2019, 7 day supply for thrush fluticasone propionate 0.05 mg/actuat metered dose nasal spray (20 sources) Corticosteroid Start: 01-13-2022 take 1 spray(s) nasal route once daily Flonase Allergy Relief 50 MCG/ACT 1 spray in each nostril Nasally Once a day for 14 day(s) Dec, Not-Taking 250 ml glucose 50 mg/ml / sodium chloride 4.5 mg/ml injection (1 source) Start: 11-01-2023 End: 11-02-2023 take 250 mL intravenously every hour 250 mL/hr, intravenous, Continuous, Starting on Sat11/01/23 at 0945 hyoscyamine sulfate 0.125 mg oral tablet (20 sources) Start: 02-16-2021 take 1 tablet by mouth every six hours as needed Levsin 0.125 MG 1 TABLET Orally EVERY 6 HRS NEEDED for 30 days Feb, Not-Taking Start: 09-24-2014 take 0.375 mg by jovana th every twelve hours hyoscyamine SR (LEVBID) 0.375 mg 12 hr tablet Take 1 tablet by mouth q 12 HR. 200 tablet 5 09/24/2014 Active Comment on above: Take 1 tablet by jovana th q 12 HR. Insulin Aspart U-100 (Novolog Flexpen U-100 Insulin) 100 unit/mL (3 mL) Insulin Pen (5 sources) Start: 10-13-2019 End: 11-27-2023 Insulin Aspart U-100 (Novolog Flexpen U-100 Insulin) 100 unit/mL (3 mL) Insulin Pen Discontinued 0 UNITS SUBCUT 3X/Day with meals and bedtime October 13, 2019 1:00am November 27, 2023 11:05am Start: 10-13-2019 Insulin Aspart U-100 (Novolog Flexpen U-100 Insulin) 100 unit/mL (3 mL) Insulin Pen Active 0 UNITS SUBCUT 3X/Day with meals and bedtime October 13, 2019 12:00am Start: 10-13-2019 Insulin Aspart U-100 (Novolog Flexpen U-100 Insulin) 100 unit/mL (3 mL) Insulin Pen Active 0 UNITS SUBCUT 3X/Day with meals and bedtime October 13, 2019 1:00am 3 ml insulin aspart, human 100 unt/ml pen injector (5 sources) Insulin Analog Start: 10-13-2019 End: 04-28-2020 inject 3 [IU] by subcutaneous injection once before mealtime Insulin Aspart U-100 (Novolog Flexpen U-100 Insulin) 100 unit/mL (3 mL) Insulin Pen Discontinued 3 UNITS SUBCUT 3x/Day before meals October 13, 2019 1:00am April 28, 2020 12:15pm 3 ml insulin detemir 100 unt/ml pen injector (5 sources) Insulin Analog Start: 10-13-2019 End: 04-28-2020 inject 8 [IU] by subcutaneous injection once daily Insulin Detemir U-100 (Levemir Flextouch U100 Insulin) 100 unit/mL (3 mL) Insulin Pen Discontinued 8 UNITS SUBCUT Daily October 13, 2019 1:00am April 28, 2020 12:15pm Insulin Lispro 100 UNIT/ML SOLN (20 sources) Start: 02-22-2021 Insulin Lispro 100 UNIT/ML SOLN per insulin pump Quantity: 0 Refills: 0 Ordered: 29-May-2021 DO Start : 22-Feb-2021 Active 100 ml insulin, regular, human 1 unt/ml injection (3 sources) Insulin Start: 11-01-2023 End: 11-02-2023 take 30 mL by mouth every hour 0-50 Units/hr (0-50 mL/hr), intravenous, Continuous, Starting on Sat11/01/23 at 0415 When patient meets DKA criteria (blood glucose > 250 mg/dL, arterial pH < 7.3, bicarbonate < 15 mEq/L, and moderate ketonuria or ketonemia) AND K > 3.3 mmol/L : INITIAT E infusion at 0.14 units/kg/hr (max initial rate of 15 units/hr) If CrCl less than 30 mL/min or known CKD: INITIATE at 0.05 units/kg/hr (max initial rate of 7 units/hr) Adjust based on every 1 hour capillary blood glucose results as follows: Step 1: goal decrease in blood glucose within 1 hour after initiation of insulin infusion: 50 mg/dL or 10% of initial blood glucose value (choose a or b based on initial BG drop) Step 1 (a): IF blood glucose decreases by < 50 mg/dL or < 10%: Bolus 0.1 units/kg (max 10 units) and continue infusion at same rate Step 1 (b): IF blood glucose decreases by 50 - 75 mg/dL or 10% AND still > 250 mg/dL continue same rate and reassess hourly Step 2: If within next 1 - 2 hours blood glucose still not less than or equal to 250 mg/dL increase infusion rate by 25% until blood glucose less than 250 mg/dL and notify provider. &nbsp ;Step 3: notify provider when blood glucose less than than 250 mg/dL and assess anion gap; If anion gap closed proceed to step 4 Step 3: When blood glucose less than than 250 mg/dL AND anion gap still open (choose a, b, or c based on hourly blood glucose level): S tep 3 (a): If blood glucose between 151 and 250 mg/dL and anion gap OPEN continue infusion at the same rate; see dextrose orders for changing fluids to D5W containing fluids; titrate insulin up/down as needed by 25% to maintain blood glucose between 151-250 mg/dL and notify provider; repeat this step as needed and titrate down to a minimum insulin infusion rate of 0.1 units/kg/hr &nb sp;Step 3 (b): If blood glucose between 70-150 mg/dL and AG open decrease insulin infusion rate by 50% notify provider; see dextrose orders for addition of D10; repeat this step as needed and if unable to maintain blood glucose > 150 mg/dL titrate down to a minimum insulin infusion rate of 0.5 units/hr Step 3 (c): If blood glucose less than 70 mg/dL and AG open HOLD insulin infusion for 15 minutes and see dextrose orders for dextrose administration. Recheck blood glucose 15 minutes after dextrose treatment. If glucose is greater than 70 mg/dL, resume insulin drip at 50% of previous rate. If glucose is still less than 70 mg/dL, repeat this step. Notify provider. if unable to maintain blood glucose > 150 mg/dL titrate down to a minimum insulin infusion rate of 0.5 units/hr Step 4 anion gap closed and DKA resolved Do not discontinue unless the following criteria for resolution of DKA is met and discussed with the provider: anion gap closed acidosis reversed tolerates oral feeds a plan for long acting insulin is established &nb sp;If DKA resolved and patient does not tolerate oral feeds/not eating reliably continue intravenous insulin infusion using the Intensive Insulin Algorithm with a target blood glucose of 140-180 mg/dL. IF DKA resolved and patient tolerating oral feeds/eating reliably discontinue insulin infusion 2 hours after administration of long acting SQ insulin. Protocol Document: <a [email or web address]> Other Initial Dose: 0.14 unit/kg/hr with max of 15 units/hr and 0.05 units/kg/hr and max of 7 units/hr for ckd or CrCl less than 30 mL/min Start: 11-01-2023 End: 11-01-2023 0-20 Units/hr (0-20 mL/hr), intravenous, Continuous, Starting on Sat11/01/23 at 0145 Check blood glucose hourly while on infusion / protocol, unless otherwise specified by the calculator. If blood glucose is within target range (140-180 mg/dL) for 3 consecutive measures, then monitoring can be reduced to every 2 hours. If instructed by the calculator to hold the infusion until blood glucose is greater than or equal to 140 mg/dL, do not document subsequent blood glucose values in the calculator until the patient's blood glucose is greater than or equal to 140 mg/dL and the infusion should be resumed. If enteral / parenteral nutrition is stopped abruptly, reduce the insulin infusion rate by 50%. Be mindful of significant changes in dextrose containing fluid infusion rates. Notify provider if patient is eating. Patients requiring IV insulin infusion are typically not eating. If eating, consider switching patient from insulin drip to subcutaneous injections. Fast-acting SC insulin should be administered after meals to cover the meal (1 unit insulin per 15 grams of carbohydrates consumed - usual dose is 3 to 6 units). SC insulin should be considered with order obtained from provider. Dose may be adjusted proportionate to the percentage of the tray consumed (e.g. insulin dose if of tray eaten). Notify provider if infusion is discontinued without appropriate scheduled subcutaneous insulin ordered for patients with insulin dependent diabetes, and those requiring greater than 1 unit per hour. These patients should be transitioned to scheduled insulin. ~~~~~~~~~ IF BLOOD GLUCOSE DECREASED > or = 30 mg/dL since last level ~~~~~~~~~ < or = 70 mg/dL ---- Hold insulin infusion. Give 1 amp 50% Dextrose. Notify ICU Resident 71-100 mg/dL ------- Hold insulin infusion 100-139 mg/dL ----- Hold insulin infusion 140-180 mg/dL ----- Decrease rate by 25% 181-250 mg/dL ----- Continue current rate 251-300 mg/dL ----- Continue current rate 301-350 mg/dL ----- Continue current rate 351-400 mg/dL ----- Continue current rate >400 mg/dL Notify ICU Resident ~~~~~~ IF BLOOD GLUCOSE DECREASED < 30 mg/dL or INCREASED since last level ~~~~~ < or = 70 mg/dL ---- Hold insulin infusion. Give 1 amp 50% Dextrose. Notify ICU Resident 71-100 mg/dL ------- Hold insulin infusion 100-139 mg/dL ----- Decrease rate by 50% 140-180 mg/dL ----- Continue current rate 181-250 mg/dL ----- Increase rate by 25% 251-300 mg/dL ----- Bolus 2 units. Incrase rate by 25% 301-350 mg/dL ----- Bolus 4 units. Increase rate by 50% 351-400 mg/dL ----- Bolus 6 units. Increase rate by 50% >400 mg/dl Notify ICU Resident Clinician Notes: When monitoring is done Q1h upward titrations should be made Q2h only Start: 11-01-2023 End: 11-01-2023 0-10 Units, intravenous, Adm inister over 2 Minutes, Once, On Sat11/01/23 at 0145, For 1 dose iohexol (OMNIPaque) 350 mg iodine/mL solution 75 mL (2 sources) Start: 09-25-2023 End: 09-25-2023 iohexol (OMNIPaque) 350 mg iodine/mL solution 75 mL Paulina 24 FE 1-20 MG-MCG(24) Oral Tablet (20 sources) Start: 05-03-2021 take 1 tablet by mouth once daily Paulina 24 FE 1-20 MG-MCG(24) Oral Tablet TAKE 1 TABLET DAILY. Quantity: 0 Refills: 0 Ordered: 25-Jun-2021 DO Start : 03-May-2021 Active levonorgestrel 0.943677 mg/hr intrauterine system (4 sources) Progestin, Progestin-containi ng Intrauterine Device End: 04-30-2022 levonorgestrel (MIRENA) 20 mcg/24 hr (5 years) IUD 1 Each by INTRAUTERINE route one time only. 0 04/30/2022 Discontinued (Discontinued by Patient) Comment on above: 1 Each by INTRAUTERI NE route one time only. mirtazapine 7.5 mg oral tablet (20 sources) Start: 07-09-2023 End: 11-13-2023 take 1 tablet by mouth once daily at bedtime Mirtazapine (REMERON) 7.5 mg tablet Take 7.5 mg by mouth daily at bedtime. 0 09/03/2023 Active Start: 12-28-2022 take 1 tablet by jovana at bedtime Mirtazapine 7.5 MG Oral Tablet TAKE 1 TABLET BY MOUTH AT BEDTIME. Quantity: 30 Refills: 1 Ordered: 01-Mar-2023 DO Start : 01-Mar-2023 Active take 2 tablets by mo [facility] every twenty-four hours Mirtazapine 7.5 MG 2 tablets at bedtime Orally Once a day Active Comment on above: Take 7.5 mg by mouth daily at bedtime. mupirocin 0.02 mg/mg topical ointment (20 sources) RNA Synthetase Inhibitor Antibacterial Start: 05-14-20 21 Mupirocin 2 % 1 application with Qtip to affected area Externally 2 times a day for 7 days Apr, Not-Taking naloxone hydrochloride 40 mg/ml nasal spray (2 sources) Opioid Antagonist Start: 11-01-19 End: 12-01-19 22 Narcan 4 mg/0.1 mL nasal spray ; 4 milligram(s) intranasally once a day -.Meds to Beds - .ADOD 11/01 Quantity: 1 Refills: 0 Ordered: 01-Nov-2021 Dian Jeffery Start: 01-Nov-2021 End: 30-Nov-2021 Generic Substitution Allowed Comments: For the nose. Comment on above: For the nose. OLANZapine 5 mg oral tablet (10 sources) Atypical Antipsychotic Start: 04-28-20 End: 04-28-20 20 take 1 tablet by mouth once daily Olanzapine (Zyprexa) 5 mg tablet Discontinued 5 MG PO Daily April 28, 2020 12:00am April 28, 2020 12:15pm take 1 tablet by mouth once daily Start: 04-28-2020 End: 04-28-2020 take 1 tablet by mouth once daily in the evening Olanzapine (Zyprexa) 10 mg tablet Discontinued MG PO Every evening April 28, 2020 12:00am April 28, 2020 12:15pm take 1 tablet by mouth every evening omeprazole 20 mg delayed release oral tablet (6 sources) Proton Pump Inhibitor Start: 08-27-2018 End: 09-18-2019 take 1 tablet by mouth once daily Omeprazole Magnesium (Prilosec Otc) 20 mg Tablet,Delayed Release (Dr/Ec) Discontinued 20 MG PO Daily August 27, 2018 1:00am September 18, 2019 2:30am ondansetron 4 mg oral tablet (15 sources) Serotonin-3 Receptor Antagonist Start: 09-25-2019 End: 10-07-2019 take 1 tablet by mouth once daily Ondansetron Hcl (Zofran) 4 mg tablet Discontinued 4 MG PO Daily 10 September 25, 2019 1:00am October 07, 2019 7:37pm Start: 08-29-2018 End: 09-18-2019 take 1 tablet by mouth every six hours Ondansetron Hcl (Zofran) 4 mg tablet Discontinued 4 MG PO Q6H December 31, 2018 10:49am September 18, 2019 2:30am pantoprazole 40 mg delayed release oral tablet (20 sources) Proton Pump Inhibitor Start: 10-28-2023 End: 12-04-2023 take 1 tablet by mouth once daily pantoprazole DR (PROTONIX) 40 mg tablet Take 1 tablet by mouth once daily. 30 tablet 0 11/04/2023 Active Start: 07-16-2023 take 40 mg by mouth three times daily Pantoprazole Active 40 MG PO Three times daily July 16, 2023 12:00am Start: 02-06-2021 End: 10-25-2023 take 1 tablet by mouth once daily pantoprazole DR (PROTONIX) 40 mg tablet Take 40 mg by mouth once daily. 0 02/06/2021 10/25/2023 Discontinued Comment on above: Take 40 mg by mouth once daily. Take 1 tablet by jovana th once daily. piperacillin 3000 mg / tazobactam 375 mg injection (1 source) Penicillin-class Antibacterial, beta Lactamase Inhibitor Start: End: take 3.375 g intravenously every six hours 3.375 g, intravenous, at 100 mL/hr, Administer over 0.5 Hours, Every 6 hours, First dose on Sat11/01/23 at 0300 premix bag Dosing of this medication varies based on severity of illness. Does this patient have sepsis or concern for sepsis (probable or documented infection plus systemic manifestations of infection)? No Suspected Indication (Select all that apply): Abdominal Infection Type of Therapy: Empiric Type of infection: Other (specify) Other: Chyle leak, DKA potassium chloride 20 meq powder for oral solution (2 sources) Start: End: take 1 [oz_av] by mouth once 20 mEq, oral, Once, On Sat11/01/23 at 2245, For 1 dose Dissolve each packet in 4 ounces of water = 5 mEq per 1 oz fluid. Start: 11-01-2023 End: 11-01-2023 20 mEq, intravenous, at 50 m L/hr, Administer over 2 Hours, Once, On Sat11/01/23 at 1215, For 1 dose Via peripheral line predniSONE 5 mg oral tablet (20 sources) Start: 02-27-2022 predniSONE 5 M G Oral Tablet Take 7 tablets every day for 1 week, then 6 tablets every day for one week, then 5 tablets every for one week, then 4 tablets every day for one week, then 3 tablets every day for one week, then 2 tablets every day for one week, then 1 tablet every day for one week then stop. Quantity: 196 Refills: 0 Ordered: 27-Feb-2022 Antonino Eldridge MD Start : 27-Feb-2022 Active Start: 01-22-2022 End: 03-02-2022 take 2 tablets by mouth every twenty-four hours predniSONE 20 mg oral tablet ; 2 tab(s) orally every 24 hours -.ADOD - .Meds to Beds / 1500 Quantity: 80 Refills: 0 Ordered: 22-Jan-2022 Cathy Donato Start: 22-Jan-2022 End: 02-Mar-2022 Generic Substitution Allowed Start: 11-27-2021 take 1 tablet by mouth once da denisse predniSONE 10 MG Oral Tablet Take 1 tablet daily Quantity: 30 Refills: 0 Ordered: 27-Nov-2021 Antonino Eldridge MD Start : 27-Nov-2021 Active START TAKING ON JUHI 3rd, 2022. PLEASE NOTIFY YOUR DIABETES PROVIDER. Start: 06-20-2021 End: 07-16-2023 take 20 mg by mouth once daily Prednisone Discontinued 20 MG PO Daily July 28, 2021 1:00am July 16, 2023 2:51am Start: 05-31-2021 take 1 tablet by jovana th every twelve hours predniSONE 20 MG 1 tablet Orally bid for 5 day(s) May, Active Start: 11-03-2019 End: 04-28-2020 Prednisone Discontinued 10 M G PO 1-3 TIMES DAILY November 03, 2019 8:11pm April 28, 2020 11:29am Start: 09-25-2019 End: 11-03-2019 take 10 mg by mouth once daily Prednisone Discontinued 10 MG PO Daily 06 25September 25, 2019 1:00am November 03, 2019 8:11pm Start: 09-18-2019 End: 09-25-2019 take 40 mg by mouth once daily Prednisone Discontinued 40 MG PO Daily September 18, 2019 1:00am September 25, 2019 3:05pm Start: 08-12-2018 End: 08-27-2018 take 10 mg by mouth once daily Prednisone Discontinued 10 MG PO Daily August 12, 2018 1:00am August 27, 2018 3:27am prochlorperazine 5 mg/ml injectable solution (1 source) Phenothiazine Start: 11-01-2023 End: 11-01-2023 take 5 mg intravenously every six hours as needed 5 mg, intravenous, Every 6 hours PRN, nausea/vomiting, second line, Starting on Sat11/01/23 at 0026 1 ml promethazine hydrochloride 25 mg/ml injection (20 sources) Phenothiazine Start: 10-31-2023 End: 10-31-2023 inject 1 dose by intramuscular injection once 12.5 mg, intramuscular, Administer over 15 Minutes, Once, On Sat10/31/23 at 2045, For 1 dose Start: 11-01-2021 End: 11-05-2021 take 1 tablet by mouth every eight hours promethazine 12.5 mg oral tablet ; 1 tab(s) orally every 8 hours -.Meds to Beds - .ADOD 11/01 Quantity: 15 Refills: 0 Ordered: 01-Nov-2021 Dian Jeffery Start: 01-Nov-2021 End: 05-Nov-2021 Generic Substitution Allowed Start: 01-04-2021 End: 11-05-2021 take 1 tablet by mouth every six hours as needed for nausea Promethazine HCl - 12.5 MG Oral Tablet TAKE 1 TABLET BY MOUTH Every 6 hours PRN nausea Quantity: 100 Refills: 5 Ordered: 27-Jul-2022 Ramos Farrell MD Start : 04-Jan-2021 Active Start: 04-28-2020 End: 07-28-2021 Promethazine Active 12.5 MG PO Q6H July 28, 2021 4:28pm 3 doses during day; last dose no later than 4 hr before bedtime Start: 10-07-2019 End: 04-28-2020 take 12.5 mg by mouth every six hours Promethazine Discontinued 12.5 MG PO Q6H October 07, 2019 1:00am April 28, 2020 11:29am Start: 11-27-2018 End: 07-09-2023 take 1 tablet by mouth every six hours as needed promethazine (PHENERGAN) 25 mg tablet Indications: Palliative care by specialist , Nausea Take 1 tablet by mouth every 6 hours as needed. 120 tablet 1 07/09/2023 Active Comment on above: Take 25 mg by mouth every 6 hours as needed. Take 1 tablet by jovana every 6 hours as needed. sennosides, jail 8.6 mg oral tablet (5 sources) Start: 08-29-20 18 End: 12-30-19 19 take 1 tablet by mouth twice daily Sennosides (Senna Lax) 8.6 mg Tablet Discontinued 1 TAB PO Twice daily August 29, 2018 1:00am December 29, 2018 8:54am 1000 ml sodium chloride 4.5 mg/ml injection (1 source) Start: 11-01-19 End: 11-01-19 take 150 mL intravenously every hour 150 mL/hr, intravenous, Continuous, Starting on Sat11/01/23 at 1445 sucralfate 1000 mg oral tablet (20 sources) Aluminum Complex Start: 05-15-20 take 1 tablet by mouth four times daily sucralfate (CARAFATE) 1 gram tablet Take 1 g by mouth four times daily. 0 01/30/2022 Active Start: 02-16-2021 take 1 tablet by jovana th every six hours Carafate 1 GM 1 tablet on an empty stomach Orally qid for 30 day(s) Apr, Active Comment on above: Take 1 g by mouth fo ur times daily. triamcinolone acetonide 40 mg/ml injectable suspension (20 sources) Corticosteroid Start: 04-10-2023 Kenalog-40 Mar, 60 mg Start: 05-31-2021 KENALOG - 10 m g May, 40 mg 150 ml vancomycin 5 mg/ml injection (2 sources) Glycopeptide Antibacterial Start: 11-01-2023 End: 11-02-2023 take 750 mg intravenously every twelve hours 750 mg, intravenous, at 200 mL/hr, Administer over 45 Minutes, Every 12 hours, First dose on Sat11/01/23 at 1830 premix bag Dosing of this medication varies based on severity of illness. Does this patient have sepsis or concern for sepsis (probable or documented infection plus systemic manifestations of infection)? No Suspected Indication (Select all that apply): Other Specify: DKA, chyle leak Type of Therapy: Empiric Start: 11-01-2023 End: 11-01-2023 750 mg, intravenous, at 200 mL/hr, Administer over 45 Minutes, Once, On Sat11/01/23 at 0345, For 1 dose premix bag Dosing of this medication varies based on severity of illness. Does this patient have sepsis or concern for sepsis (probable or documented infection plus systemic manifestations of infection)? No Suspected Indication (Select all that apply): Other Specify: chyle leak, DKA Type of Therapy: Empiric (1 source) Start: 11-01-2023 End: 11-01-2023 75 mL, intravenous, Once in imaging, Starting on Sat11/01/23 at 0031, For 1 dose NEGATED: Highlighted row has not occurred!No Current Medications (1 source) No Current Medic ations Problems Active Problems Problem Classification Problem Date Documented Da te Episodic/Chronic Abdominal pain (20 sources) Abdominal wall pain; Translations: [Abdominal pain, epigastric] Onset: 9 Resolved: 4 10-25-2021 Episodic Acute bronchitis (12 sources) Acute bronchitis; Translations: [Acute bronchitis due to other specified organisms] Episodic Alcohol-related disorders (2 sources) Alcohol use, unspecified with intoxication, unspecified; Translations: [Alcohol use, unspecified with intoxication, unspecified ([facility])] Onset: 4 Episodic Allergic reactions (2 sources) Dermatitis, unspecified; Translations: [Irritant contact dermatitis due to other agents] Episodic Anxiety disorders (20 sources) Mixed anxiety and depressive disorder; Translations: [Anxiety state, unspecified] Onset: 4 01-22-2022 Chronic Biliary tract disease (6 sources) Cholangiectasis; Translations: [Other specified diseases of biliary tract] Onset: 3 07-15-2018 Chronic Biliary tract disease (17 sources) Cholelithiasis without obstruction; Translations: [Calculus of gallbladder without cholecystitis without obstruction] 08-15-2018 Episodic Calculus of urinary tract (12 sources) H/O: urinary stone; Translations: [Personal history of urinary calculi] Episodic Coagulation and hemorrhagic disorders (5 sources) Qualitative platelet disorder; Translations: [Qualitative platelet defects] 09-18-2019 Chronic Deficiency and other anemia (11 sources) Anemia due to chronic blood loss; Translations: [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 Deficiency and other anemia (1 source) Iron deficiency anemia secondary to blood loss (chronic); Translations: [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 Diabetes mellitus with complications (20 sources) Hyperglycemia due to type 1 diabetes mellitus; Translations: [Type 1 diabetes mellitus with hyperglycemia] Onset: 2 Resolved: 4 Chronic Diabetes mellitus without complication (20 sources) Type 1 diabetes mellitus; Translations: [Diabetes mellitus without mention of complication, type I [juvenile type], not stated as uncontrolled] Onset: 1 Resolved: 2 10-26-2021 Chronic Diabetes mellitus without complication (3 sources) Insulin pump present; Translations: [Insulin pump status] 10-26-2021 Episodic Diabetes mellitus without complication (1 source) Diabetes mellitus without complication 10-26-2021 Diseases of mouth; excluding dental (1 source) Bleeding from mouth; Translations: [Other lesions of oral mucosa] Episodic Diseases of white blood cells (5 sources) Leukocytosis; Translations: [Elevated white blood cell count, unspecified] 01-06-2020 Chronic Disorders of lipid metabolism (20 sources) Hyperlipidemia; Translations: [Hyperlipidemia, unspecified] Onset: 2 Resolved: 2 Chronic Epilepsy; convulsions (12 sources) Seizure; Translations: [Unspecified convulsions] Episodic Esophageal disorders (20 sources) Gastroesophageal reflux disease; Translations: [Gastro-esophageal reflux disease without esophagitis] Onset: 2 06-06-2022 Chronic Esophageal disorders (5 sources) Esophageal disorders; Translations: [Gastro-esophageal reflux disease with esophagitis, without bleeding] Essential hypertension (20 sources) Hypertensive disorder; Translations: [Essential (primary) hypertension] 12-03-2023 Chronic Gastritis and duodenitis (20 sources) Gastritis; Translations: [Gastritis, unspecified, without bleeding] Episodic Gastrointestinal hemorrhage (20 sources) Rectal hemorrhage; Translations: [Hemorrhage of anus and rectum] Episodic Genitourinary symptoms and ill-defined conditions (20 sources) Genitourinary symptoms; Translations: [Unspecified symptoms and signs involving the genitourinary system] Onset: 7 Episodic Immunity disorders (12 sources) Immunodeficiency disorder; Translations: [Immunodeficiency, unspecified] Chronic Immunizations and screening for infectious disease (14 sources) Contact with and (suspected) exposure to other viral communicable diseases; Translations: [Encounter for immunization] Onset: 1 Resolved: 2 Episodic Miscellaneous mental health disorders (13 sources) Primary insomnia; Translations: [Primary insomnia] 11-25-2023 Chronic Mood disorders (20 sources) Depressive disorder; Translations: [Depression] Onset: 4 06-06-2022 Chronic Mood disorders (2 sources) Mood disorders; Translations: [Depression, unspecified] Onset: 3 Mycoses (12 sources) Candidiasis of mouth; Translations: [Candidal stomatitis] Episodic Nutritional deficiencies (20 sources) Vitamin D deficiency; Translations: [Vitamin D deficiency, unspecified] Onset: 2 06-07-2022 Chronic Nutritional deficiencies (20 sources) Cobalamin deficiency; Translations: [Deficiency of other specified B group vitamins] Episodic Other aftercare (20 sources) Surgical follow-up; Translations: [Fitting and adjustment of other gastrointestinal appliance and device] Episodic Other aftercare (20 sources) Long-term current use of insulin; Translations: [Long-term (current) use of insulin] 10-26-2021 Episodic Other aftercare (20 sources) Patient encounter status; Translations: [Encounter for palliative care] 10-30-2021 Episodic Other aftercare (10 sources) Under care of palliative care physician; Translations: [Encounter for palliative care] 05-17-2023 Episodic Other connective tissue disease (4 sources) Neuropathic pain; Translations: [Neuralgia and neuritis, unspecified] 10-11-2019 Episodic Other diseases of veins and lymphatics (2 sources) Other specified noninfective disorders of lymphatic vessels and lymph nodes; Translations: [Other specified noninfective disorders of lymphatic vessels and lymph nodes] Onset: 4 Chronic Other diseases of veins and lymphatics (12 sources) Peripheral venous insufficiency; Translations: [Venous insufficiency (chronic) (peripheral)] Episodic Other ear and sense organ disorders (12 sources) Otitis externa; Translations: [Unspecified otitis externa, unspecified ear] Onset: 3 Chronic Other endocrine disorders (20 sources) Hypoglycemia; Translations: [Hypoglycemia, unspecified] Chronic Other female genital disorders (11 sources) Abnormal uterine bleeding; Translations: [Abnormal uterine and vaginal bleeding, unspecified] Chronic Other female genital disorders (1 source) Abnormal uterine and vaginal bleeding, unspecified; Translations: [Abnormal uterine and vaginal bleeding, unspecified] Chronic Other gastrointestinal disorders (19 sources) Intestinal malabsorption; Translations: [Intestinal malabsorption, unspecified] Chronic Other gastrointestinal disorders (1 source) Therapeutic opioid induced constipation; Translations: [Other constipation] 10-30-2021 Episodic Other gastrointestinal disorders (1 source) Diarrhea, unspecified Episodic Other gastrointestinal disorders (2 sources) Personal history of other diseases of the digestive system; Translations: [Personal history of other diseases of the digestive system] Onset: 4 Episodic Other lower respiratory disease (12 sources) Solitary nodule of lung; Translations: [Solitary pulmonary nodule] Episodic Other nervous system disorders (20 sources) Neuropathy; Translations: [Polyneuropathy, unspecified] Chronic Other nervous system disorders (20 sources) Chronic pain; Translations: [Other chronic pain] Chronic Other nervous system disorders (20 sources) Carpal tunnel syndrome; Translations: [Carpal tunnel syndrome, bilateral upper limbs] Chronic Other nervous system disorders (12 sources) Other lesions of median nerve, unspecified upper limb; Translations: [Other lesions of median nerve, unspecified upper limb] Chronic Other nervous system disorders (2 sources) Carpal tunnel syndrome, bilateral upper limbs; Translations: [Carpal tunnel syndrome, bilateral upper limbs] Chronic Other nervous system disorders (3 sources) Other chronic pain; Translations: [Other chronic pain] Onset: 3 Chronic Other nervous system disorders (12 sources) Paresthesia; Translations: [Paresthesia of skin] Episodic Other non-traumatic joint disorders (20 sources) Arthritis co-occurrent and due to Crohn's disease; Translations: [Enteropathic arthropathies, unspecified site] Onset: 4 09-04-2022 Chronic Other skin disorders (11 sources) Hair follicle disorder; Translations: [Other specified follicular disorders] Episodic Other skin disorders (1 source) Other specified follicular disorders; Translations: [Other specified follicular disorders] Episodic Other upper respiratory disease (12 sources) Other specified disorders of nose and nasal sinuses; Translations: [Other specified disorders of nose and nasal sinuses] Episodic Other upper respiratory infections (12 sources) Chronic sinusitis; Translations: [Chronic sinusitis, unspecified] Chronic Pancreatic disorders (not diabetes) (20 sources) Chronic pancreatitis; Translations: [Chronic pancreatitis] Onset: 2 Resolved: 4 01-22-2022 Chronic Pancreatic disorders (not diabetes) (20 sources) Acute pancreatitis; Translations: [Acute pancreatitis] Onset: 0 10-25-2021 Episodic Regional enteritis and ulcerative colitis (20 sources) Crohn's disease; Translations: [Regional enteritis of unspecified site] Onset: 8 10-25-2021 Chronic Residual codes; unclassified (6 sources) History of pancreatectomy; Translations: [Acquired total absence of pancreas] Onset: 4 11-02-2023 Chronic Residual codes; unclassified (2 sources) Acquired total absence of pancreas; Translations: [Acquired total absence of pancreas] Onset: 4 Chronic Residual codes; unclassified (12 sources) Insomnia; Translations: [Insomnia, unspecified] Episodic Substance-related disorders (20 sources) Nicotine dependence; Translations: [Nicotine dependence, unspecified, uncomplicated] Onset: 7 06-06-2022 Chronic Substance-related disorders (12 sources) Other psychoactive substance use, 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; Translations: [Other psychoactive substance use, 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] Episodic Thyroid disorders (1 source) Hypothyroidism, unspecified; Translations: [HYPOTHYROIDISM UNSPECIFIED] Onset: 1 Chronic Unclassified (4 sources) ERCP 10-05-2021 Comment on above: ERCP Unclassified (1 source) RECURRENT PANCREATITIS; EVALUATION FOR CELIAC PLEXUS BLOCK; POST HOSPITAL DISCHARGE 10-30-2021 Comment on above: RECURRENT PANCREATIT IS; EVALUATION FOR CELIAC PLEXUS BLOCK; POST HOSPITAL DISCHARGE Unclassified (1 source) [facility] 11-01-2021 Comment on above: [facility] Unclassified (1 source) Acute pancreatitis without infection or necrosis 10-25-2021 Unclassified (1 source) Abnormal findings on diagnostic imaging of other abdominal regions, including retroperitoneum 10-25-2021 Unclassified (1 source) Crohn's disease without complication 10-25-2021 Unclassified (1 source) terminal gauger current use of insulin 10-26-2021 Unclassified (1 source) Palliative care encounter 10-30-2021 Unclassified (1 source) Constipation due to opioid therapy 10-30-2021 Unclassified (1 source) FOLLOW UP PER DR. PAREKH 01-22-2022 Comment on above: FOLLOW UP PER DR. 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 Unclassified (20 sources) SUMMARY Onset: 4 Unclassified (3 sources) CONTACT W/AND (SUSP) EXPOS COVID-19; Translations: [CONTACT W/AND (SUSP) EXPOS COVID-19] Onset: 2 Unclassified (1 source) PERSONAL HISTORY OF COVID-19; Translations: [PERSONAL HISTORY OF COVID-19] Onset: 1 Unclassified (2 sources) GI/ABD PAIN 08-14-2022 Comment on above: GI/ABD PAIN Unclassified (1 source) 4 MONTH FOLLOWUP 07-27-2022 Comment on above: 4 MONTH FOLLOWUP Urinary tract infections (6 sources) Urinary tract infectious disease; Translations: [Urinary tract infection, site not specified] 07-15-2023 Episodic Viral infection (20 sources) Herpes simplex; Translations: [Herpesviral infection, unspecified] Episodic Viral infection (16 sources) COVID-19; Translations: [Disease caused by 2019-nCoV] Onset: 1 Past or Other Problems Problem Classification Problem Date Documented Da te Episodic/Chronic Administrative/social admission (2 sources) Dietary counseling and surveillance Onset: 12-11-2021 Resolved: 05-08-2022 Episodic Coma; stupor; and brain damage (12 sources) Coma; Translations: [Unspecified coma] Resolved: 08-09-2020 Episodic Deficiency and other anemia (11 sources) Pernicious anemia; Translations: [Vitamin B12 deficiency anemia due to intrinsic factor deficiency] Onset: 12-11-2016 Episodic Deficiency and other anemia (2 sources) Vitamin B12 deficiency anemia due to intrinsic factor deficiency; Translations: [Vitamin B12 deficiency anemia due to intrinsic factor deficiency] Onset: 12-11-2016 Episodic Fluid and electrolyte disorders (15 sources) Metabolic acidosis; Translations: [Metabolic acidosis] Onset: 10-31-2023 Resolved: 11-05-2023 10-07-2019 Episodic Headache; including migraine (12 sources) Headache; Translations: [Headache, unspecified] Onset: 02-12-2014 Episodic Nausea and vomiting (20 sources) Nausea with vomiting, unspecified; Translations: [Nausea] Onset: 08-17-2021 Resolved: 10-29-2023 Episodic Other aftercare (2 sources) terminal gauger (current) use of insulin Onset: 12-11-2021 Resolved: 05-08-2022 Episodic Other aftercare (1 source) Other half-way (current) drug therapy; Translations: [OTH DIRECTOR PAYMENT CURRENT DRUG THERAPY] Onset: 08-21-2021 Episodic Other aftercare (1 source) Encounter for palliative care; Translations: [Palliative care by specialist] Onset: 08-02-2023 Episodic Other female genital disorders (11 sources) Noninflammatory disorder of the vagina; Translations: [Other specified noninflammatory disorders of vagina] Resolved: 07-04-2020 Episodic Other female genital disorders (1 source) Other specified noninflammatory disorders of vagina; Translations: [Other specified noninflammatory disorders of vagina] Resolved: 07-04-2020 Episodic Other gastrointestinal disorders (20 sources) Diarrhea; Translations: [Diarrhea] Onset: 09-08-2014 09-04-2022 Episodic Other gastrointestinal disorders (7 sources) History of pancreatitis; Translations: [Personal history of other diseases of the digestive system] Onset: 10-11-2023 Resolved: 11-05-2023 01-06-2020 Episodic Other injuries and conditions due to external causes (12 sources) Traumatic AND/OR non-traumatic injury; Translations: [Other injury of unspecified body region, initial encounter] Onset: 01-15-2014 Episodic Other non-traumatic joint disorders (11 sources) Shoulder joint pain; Translations: [Pain in right shoulder] Onset: 09-18-2017 Episodic Other non-traumatic joint disorders (1 source) Pain in right shoulder; Translations: [Pain in right shoulder] Onset: 09-18-2017 Episodic Other screening for suspected conditions (not mental disorders or infectious disease) (20 sources) CT of abdomen abnormal; Translations: [Nonspecific (abnormal) findings on radiological and other examination of abdominal area, including retroperitoneum] Onset: 06-15-2020 Resolved: 08-09-2020 10-25-2021 Episodic Other upper respiratory infections (20 sources) Acute maxillary sinusitis, unspecified; Translations: [Acute laryngitis] Onset: 10-05-2015 Resolved: 01-13-2022 Episodic Residual codes; unclassified (20 sources) Past history of procedure; Translations: [Other specified postprocedural states] Onset: 06-06-2022 06-06-2022 Episodic Residual codes; unclassified (13 sources) Tobacco user; Translations: [Tobacco use] Onset: 09-11-2016 09-04-2022 Episodic Residual codes; unclassified (1 source) Tobacco use; Translations: [Tobacco use] Onset: 04-02-2017 Episodic Skin and subcutaneous tissue infections (14 sources) Cellulitis of face; Translations: [Cellulitis of face] Onset: 09-11-2016 Resolved: 08-17-2021 09-04-2022 Episodic Spondylosis; intervertebral disc disorders; other back problems (20 sources) Pain in thoracic spine; Translations: [Pain in thoracic spine] Onset: 03-31-2015 Episodic Superficial injury; contusion (12 sources) Contusion of interscapular region; Translations: [Contusion of right back wall of thorax, initial encounter] Onset: 09-18-2017 Episodic Unclassified (1 source) CONTACT W/AND (SUSP) EXPOS COVID-19; Translations: [CONTACT W/AND (SUSP) EXPOS COVID-19] Onset: 02-16-2022 Unclassified (7 sources) Onset: 07-22-2023 Resolved: 08-19-2023 07-22-2023 Results Test Name Value Interpretation Reference Range Facility [facility] 11-14-[address] [facility] Telephone ([facility]) -------- JULIETH SPENCER ([id number]) 1985 F Date Time Provider Department 11/14/23 RAMOS PAREKH [facility] During your visit today, we recorded the following information about you: Neva Bryant 11/14/2023 3:49 PM Signed Julieth is calling stating that her insurance company needs a call back regarding her Fentanyl patch refill request.They need a verbal confirmation. If you have any questions please call Julieth back at [phone] Raffi Santiago RN 11/14/2023 4:21 PM Signed Call to insurancealexa with roman PA was resubmitted plan to follow up tomorrow regarding status of PA Gem Santiago RNCC Palliative Medicine Raffi Santiago, KISHA 11/17/2023 8:29 PM Signed PA denied appeal needed or can try alternative. TBD after discussing with patient. Raffi Santiago RN 11/18/2023 9:30 AM Signed LVm for patient. Call back info provided. Allergies As of Date: 11/14/2023 Noted Allergy Reaction BACTRIM (SULFAMETHOXAZOLE) 05/03/2014 2 - Rash MORPHINE 09/05/2014 14 - Other: See Comments Comments: Visual hallucinations Date Reviewed: 06/14/2022 Reviewed by: Cathy Carter RN - Fully Assessed Reason for Visit: Patient Question [1477] Prescriptions as of 11/18/2023 - fentaNYL (DURAGESIC) 25 mcg/hr Apply 1 Patch as directed every 72 hours for 15 days. Do not cut patch. - oxyCODONE (ROXICODONE) 15 mg immediate release tablet Take 1 tablet by mouth every 4 hours as needed for pain for up to 30 days. - pantoprazole DR (PROTONIX) 40 mg tablet Take 1 tablet by mouth once daily. - LORazepam (ATIVAN) 0.5 mg Take 0.5 mg by mouth two times a day. - cariprazine (VRAYLAR) 1.5 mg capsule Take 1.5 mg by mouth once daily. - atomoxetine (STRATTERA) 60 mg capsule Take 60 mg by mouth once daily. - acyclovir (ZOVIRAX) 400 mg tablet Take 400 mg by mouth. - VRAYLAR 1.5 mg capsule Take 1 capsule by mouth every afternoon. - cloNIDine HCl (CATAPRES) 0.1 mg tablet Take 0.1 mg by mouth daily at bedtime. - AUVELITY 45-105 mg tablet Take 1 tablet by mouth every afternoon. - insulin lispro (HUMALOG KWIKPEN) 100 unit/mL Inject subcutaneously. - HUMALOG KWIKPEN INSULIN 100 unit/mL 1:30 ICR 3 TIMES A DAY BEFORE MEALS. CORRCTIVE SCALE 1:50 BEFORE MEALS - loperamide HCl (IMODIUM) 2 mg tab Take by mouth. - LORazepam (ATIVAN) 0.5 mg Take 1 tablet by mouth every 12 hours. - Mirtazapine (REMERON) 7.5 mg tablet Take 7.5 mg by mouth daily at bedtime. - promethazine (PHENERGAN) 25 mg tablet Take 1 tablet by mouth every 6 hours as needed. - ybqlly-qlhjksxe-vkwwryo (CREON) 36,000-114,000- 180,000 unit delayed release capsule Take 2 capsules by mouth three times daily before meals. - adalimumab (HUMIRA) 40 mg/0.8 mL injection Inject 0.8 mL subcutaneously every 2 weeks. - busPIRone (BUSPAR) 10 mg tablet Take 10 mg by mouth twice daily. - traZODone (DESYREL) 100 mg tablet Take 100 mg by mouth daily at bedtime. - cyanocobalamin, vitamin B-12, 3,000 mcg cap Take 1 capsule by mouth once every month. - cholecalciferol (VITAMIN D3) 1,000 unit tab tablet Take 1,000 Units by mouth once daily. - DULoxetine (CYMBALTA) 60 mg capsule Take 60 mg by mouth once daily. - gabapentin (NEURONTIN) 800 mg tablet Take 800 mg by mouth three times daily. - BAQSIMI 3 mg/actuation nasal spray Use 1 [place] in the nose as needed. - insulin glargine (LANTUS SOLOSTAR, BASAGLAR KWIKPEN) 100 unit/mL (3 mL) Inject 20 Units subcutaneously q 24 HR. - sucralfate (CARAFATE) 1 gram tablet Take 1 g by mouth four times daily. - hyoscyamine SR (LEVBID) 0.375 mg 12 hr tablet Take 1 tablet by mouth q 12 HR. - acetaminophen (TYLENOL) 325 mg tablet Take 2 tablets by mouth every 6 hours as needed (Temp greater than 38.5C). Problem List As Of Date 11/14/2023 Noted Resolved REGIONAL ENTERITIS NOS [K50.90] 03/30/2008 SUMMARY [V999.95] 09/05/2014 Crohn disease (HCC) [K50.90] 09/05/2014 Arthritis in Crohn's disease [M07.60, K50.919] 09/05/2014 Depression [F32.A] 09/05/2014 Anxiety [F41.9] 09/05/2014 Diarrhea [R19.7] 09/08/2014 S/P ERCP [Z98.890] 06/06/2022 Type 1 diabetes mellitus without complication (*06/06/2022 Chronic pancreatitis (HCC) [K86.1] 06/06/2022 GERD (gastroesophageal reflux disease) [K21.9] 06/06/2022 Nicotine use disorder, F17.2 [F17.200] 06/06/2022 Malnutrition of moderate degree (HCC) [E44.0] 06/07/2022 Chronic calcific pancreatitis (HCC) [K86.1] 06/08/2022 Acute on chronic pancreatitis (HCC) [K85.90, K8*06/14/2022 06/14/2022 Encounter Status:Closed by NEV[facility] -------- RHONDACASTROJULIETH ([id number]) 1985 F Date Time Provider Department 11/13/23 RAMOS PAREKH [facility] During your visit today, we recorded the following information about you: Shayy Stacy 11/13/2023 11:28 AM Signed Julieth called back in and wanted to know what Dr Parekh thought she should do. Has several questions regarding her medications she is on / what would help her with her pain. Said that the Hydromorphone seems to help when she is sleeping, but when she is waking up / moving or even coughs, she can feel the inside of the incision and is in a lot of pain.Takes forever for her to get out of bed now. Mentioned how at her last appointment they discussed her using Fentanyl patches. She did more research on the patches to see if she would even want to try something like that. Saw that it might help her more with the pain until she starts to heal more. Pt is not sure if Dr Parekh would want to have a sooner appointment with her to discuss the medicine again? Currently scheduled for 12/06/23 (virtual). Asked to be called back at [phone]. Ramos Russell MD 11/13/2023 2:03 PM Signed The switch to a patch is a good idea. I'll stop the hydromorphone today and send a script for fentanyl 25 mcg/hr patch, which she can wear for 72 hours at a time. It may take about 24 hours before she feels the full effect of it. We'll check in with her in 2 days to see how it's doing for her and can adjust at that time if needed. I think it would also be a good idea for me to see her virtually again on Saturday or sometime early next week to check in, too. Raffi Santiago RN 11/13/2023 2:47 PM [address] with [address] Parekh, plan to start fentanyl patch. Pharmacy needs PA. PA started in separate encounter. Call to patient agrees to plan. Will let her know when PA is approved. She would like to have in person visit in 2 weeks. She will call office back tomorrow to discuss. Provided fentanyl patch educations: Change patch every 3 days. Should rotate site with patch change. Apply patch to clean dry skin. Apply to fat tissue for better absorption. You may reinforce patch with tape/ Band-Aid if starting to come off. Please be careful to not change patch more frequently than 3 days. The patch will provide long acting pain medication. You should still take your PRN opioid medication, hope that pain will be less and will not require as much medication. Should take PRN as needed for pain. Please avoid getting patch wet, cover before showering, best to shower on patch change day. Avoid heat on patch as this will cause patch to release more medication and will then not last 3 days, could also cause overdose. Gem Santiago RNCC Palliative Medicine Allergies As of Date: 11/13/2023 Noted Allergy Reaction BACTRIM (SULFAMETHOXAZOLE) 05/03/2014 2 - Rash MORPHINE 09/05/2014 14 - Other: See Comments Comments: Visual hallucinations Date Reviewed: 06/14/2022 Reviewed by: Cathy Cartre, KISHA - Fully Assessed Reason for Visit: Medication Question [0068] Primary Visit Diagnosis:History of pancreatectomy [Z90.410] Other Visit Diagnoses:Chronic abdominal pain [R10.9, G89.29] Palliative care by specialist [Z51.5] Order(s):fentaNYL (DURAGESIC) 25 mcg/hrApply 1 Patch as directed every 72 hours for 15 days. Do not cut patch.Disp: 5 PatchRfl: 0 Prescriptions as of 11/13/2023 - fentaNYL (DURAGESIC) 25 mcg/hr Apply 1 Patch as directed every 72 hours for 15 days. Do not cut patch. - oxyCODONE (ROXICODONE) 15 mg immediate release tablet Take 1 tablet by mouth every 4 hours as needed for pain for up to 30 days. - pantoprazole DR (PROTONIX) 40 mg tablet Take 1 tablet by mouth once daily. - LORazepam (ATIVAN) 0.5 mg Take 0.5 mg by mouth two times a day. - cariprazine (VRAYLAR) 1.5 mg capsule Take 1.5 mg by mouth once daily. - atomoxetine (STRATTERA) 60 mg capsule Take 60 mg by mouth once daily. - acyclovir (ZOVIRAX) 400 mg tablet Take 400 mg by mouth. - VRAYLAR 1.5 mg capsule Take 1 capsule by mouth every afternoon. - cloNIDine HCl (CATAPRES) 0.1 mg tablet Take 0.1 mg by mouth daily at bedtime. - AUVELITY 45-105 mg tablet Take 1 tablet by mouth every afternoon. - insulin lispro (HUMALOG KWIKPEN) 100 unit/mL Inject subcutaneously. - HUMALOG KWIKPEN INSULIN 100 unit/mL 1:30 ICR 3 TIMES A DAY BEFORE MEALS. CORRCTIVE SCALE 1:50 BEFORE MEALS - loperamide HCl (IMODIUM) 2 mg tab Take by mouth. - LORazepam (ATIVAN) 0.5 mg Take 1 tablet by mouth every 12 hours. - Mirtazapine (REMERON) 7.5 mg tablet Take 7.5 mg by mouth daily at bedtime. - promethazine (PHENERGAN) 25 mg tablet Take 1 tablet by mouth every 6 hours as needed. - kehdon-uquelgto-vktypxu (CREON) 36,000-114,000- 180,000 unit delayed release capsule Take 2 capsules by mouth three times daily before m (more content not included)... Normal [facility] 11-11-[address] [facility] Telephone ([facility]) -------- JULIETH SPENCER ([id number]) 1985 F Date Time Provider Department 11/11/23 RAMOS PAREKH [facility] During your visit today, we recorded the following information about you: Mary Patient Lead Sql Developer, [place] 11/11/2023 2:15 PM Signed Patient needs 4 week in person appt at [facility] is possible. Virtual if not. 4 weeks (around 12/06/2023) Called and LVM for patient to call and schedule. Morena Reynoso 11/13/2023 10:17 AM Signed L/M for patient to call back to schedule per below. Shayy Stacy 11/13/2023 11:29 AM Signed Julieth called back in. Scheduled a virtual appointment with Dr Parekh on 12/06/23. Pt said she has not been cleared to drive yet. If she gets cleared before the appointment she will call in to see if she can make it in person. Shayy Marie Pss Allergies As of Date: 11/11/2023 Noted Allergy Reaction BACTRIM (SULFAMETHOXAZOLE) 05/03/2014 2 - Rash MORPHINE 09/05/2014 14 - Other: See Comments Comments: Visual hallucinations Date Reviewed: 06/14/2022 Reviewed by: Cathy Carter, RN - Fully Assessed Reason for Visit: Appointment [186] Prescriptions as of 11/13/2023 - oxyCODONE (ROXICODONE) 15 mg immediate release tablet Take 1 tablet by mouth every 4 hours as needed for pain for up to 30 days. - pantoprazole DR (PROTONIX) 40 mg tablet Take 1 tablet by mouth once daily. - HYDROmorphone (EXALGO) 8 mg ER tablet Take 1 tablet by mouth two times a day for 30 days. - LORazepam (ATIVAN) 0.5 mg Take 0.5 mg by mouth two times a day. - cariprazine (VRAYLAR) 1.5 mg capsule Take 1.5 mg by mouth once daily. - atomoxetine (STRATTERA) 60 mg capsule Take 60 mg by mouth once daily. - acyclovir (ZOVIRAX) 400 mg tablet Take 400 mg by mouth. - VRAYLAR 1.5 mg capsule Take 1 capsule by mouth every afternoon. - cloNIDine HCl (CATAPRES) 0.1 mg tablet Take 0.1 mg by mouth daily at bedtime. - AUVELITY 45-105 mg tablet Take 1 tablet by mouth every afternoon. - insulin lispro (HUMALOG KWIKPEN) 100 unit/mL Inject subcutaneously. - HUMALOG KWIKPEN INSULIN 100 unit/mL 1:30 ICR 3 TIMES A DAY BEFORE MEALS. CORRCTIVE SCALE 1:50 BEFORE MEALS - loperamide HCl (IMODIUM) 2 mg tab Take by mouth. - LORazepam (ATIVAN) 0.5 mg Take 1 tablet by mouth every 12 hours. - Mirtazapine (REMERON) 7.5 mg tablet Take 7.5 mg by mouth daily at bedtime. - promethazine (PHENERGAN) 25 mg tablet Take 1 tablet by mouth every 6 hours as needed. - qtwdom-piaqjlqv-zsaefjy (CREON) 36,000-114,000- 180,000 unit delayed release capsule Take 2 capsules by mouth three times daily before meals. - adalimumab (HUMIRA) 40 mg/0.8 mL injection Inject 0.8 mL subcutaneously every 2 weeks. - busPIRone (BUSPAR) 10 mg tablet Take 10 mg by mouth twice daily. - traZODone (DESYREL) 100 mg tablet Take 100 mg by mouth daily at bedtime. - cyanocobalamin, vitamin B-12, 3,000 mcg cap Take 1 capsule by mouth once every month. - cholecalciferol (VITAMIN D3) 1,000 unit tab tablet Take 1,000 Units by mouth once daily. - DULoxetine (CYMBALTA) 60 mg capsule Take 60 mg by mouth once daily. - gabapentin (NEURONTIN) 800 mg tablet Take 800 mg by mouth three times daily. - BAQSIMI 3 mg/actuation nasal spray Use 1 [place] in the nose as needed. - insulin glargine (LANTUS SOLOSTAR, BASAGLAR KWIKPEN) 100 unit/mL (3 mL) Inject 20 Units subcutaneously q 24 HR. - sucralfate (CARAFATE) 1 gram tablet Take 1 g by mouth four times daily. - hyoscyamine SR (LEVBID) 0.375 mg 12 hr tablet Take 1 tablet by mouth q 12 HR. - acetaminophen (TYLENOL) 325 mg tablet Take 2 tablets by mouth every 6 hours as needed (Temp greater than 38.5C). 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] 09/05/2014 Depression [F32.A] 09/05/2014 Anxiety [F41.9] 09/05/2014 Diarrhea [R19.7] 09/08/2014 S/P ERCP [Z98.890] 06/06/2022 Type 1 diabetes mellitus without complication (*06/06/2022 Chronic pancreatitis (HCC) [K86.1] 06/06/2022 GERD (gastroesophageal reflux disease) [K21.9] 06/06/2022 Nicotine use disorder, F17.2 [F17.200] 06/06/2022 Malnutrition of moderate degree (HCC) [E44.0] 06/07/2022 Chronic calcific pancreatitis (HCC) [K86.1] 06/08/2022 Acute on chronic pancreatitis (HCC) [K85.90, K8*06/14/2022 06/14/2022 Encounter Status:Closed by SHAYY STACY on 11/13/23 [facility]07[facility] -------- JULIETH SPENCER ([id number]) 1985 F Date Time Provider Department 11/07/23 RAMOS PAREKH [facility] During your visit today, we recorded the following information about you: Neva Bryant 11/07/2023 2:08 PM Signed Julieth is calling stating that she needs a prior authorization for her dilation. She uses [facility] . If you have any questions please call her back at [phone] Raffi Santiago, RN 11/07/2023 3:26 PM Signed Notified patient PA was started. Medication was denied and appeal was started. Patient has visit tomorrow to see Dr. Parekh. She said she is out of medication but is tolerating pain with oxycodone for now. Allergies As of Date: 11/07/2023 Noted Allergy Reaction BACTRIM (SULFAMETHOXAZOLE) 05/03/2014 2 - Rash MORPHINE 09/05/2014 14 - Other: See Comments Comments: Visual hallucinations Date Reviewed: 06/14/2022 Reviewed by: Cathy Carter RN - Fully Assessed Reason for Visit: Patient Question [1477] Prescriptions as of 11/07/2023 - oxyCODONE (ROXICODONE) 15 mg immediate release tablet Take 1 tablet by mouth every 4 hours as needed for pain for up to 30 days. - pantoprazole DR (PROTONIX) 40 mg tablet Take 1 tablet by mouth once daily. - HYDROmorphone (EXALGO) 8 mg ER tablet Take 1 tablet by mouth two times a day for 30 days. - LORazepam (ATIVAN) 0.5 mg Take 0.5 mg by mouth two times a day. - cariprazine (VRAYLAR) 1.5 mg capsule Take 1.5 mg by mouth once daily. - atomoxetine (STRATTERA) 60 mg capsule Take 60 mg by mouth once daily. - acyclovir (ZOVIRAX) 400 mg tablet Take 400 mg by mouth. - VRAYLAR 1.5 mg capsule Take 1 capsule by mouth every afternoon. - cloNIDine HCl (CATAPRES) 0.1 mg tablet Take 0.1 mg by mouth daily at bedtime. - AUVELITY 45-105 mg tablet Take 1 tablet by mouth every afternoon. - insulin lispro (HUMALOG KWIKPEN) 100 unit/mL Inject subcutaneously. - HUMALOG KWIKPEN INSULIN 100 unit/mL 1:30 ICR 3 TIMES A DAY BEFORE MEALS. CORRCTIVE SCALE 1:50 BEFORE MEALS - loperamide HCl (IMODIUM) 2 mg tab Take by mouth. - LORazepam (ATIVAN) 0.5 mg Take 1 tablet by mouth every 12 hours. - Mirtazapine (REMERON) 7.5 mg tablet Take 7.5 mg by mouth daily at bedtime. - promethazine (PHENERGAN) 25 mg tablet Take 1 tablet by mouth every 6 hours as needed. - iaypor-gtdszutb-kafxyzw (CREON) 36,000-114,000- 180,000 unit delayed release capsule Take 2 capsules by mouth three times daily before meals. - adalimumab (HUMIRA) 40 mg/0.8 mL injection Inject 0.8 mL subcutaneously every 2 weeks. - busPIRone (BUSPAR) 10 mg tablet Take 10 mg by mouth twice daily. - traZODone (DESYREL) 100 mg tablet Take 100 mg by mouth daily at bedtime. - cyanocobalamin, vitamin B-12, 3,000 mcg cap Take 1 capsule by mouth once every month. - cholecalciferol (VITAMIN D3) 1,000 unit tab tablet Take 1,000 Units by mouth once daily. - DULoxetine (CYMBALTA) 60 mg capsule Take 60 mg by mouth once daily. - gabapentin (NEURONTIN) 800 mg tablet Take 800 mg by mouth three times daily. - BAQSIMI 3 mg/actuation nasal spray Use 1 [place] in the nose as needed. - insulin glargine (LANTUS SOLOSTAR, BASAGLAR KWIKPEN) 100 unit/mL (3 mL) Inject 20 Units subcutaneously q 24 HR. - sucralfate (CARAFATE) 1 gram tablet Take 1 g by mouth four times daily. - hyoscyamine SR (LEVBID) 0.375 mg 12 hr tablet Take 1 tablet by mouth q 12 HR. - acetaminophen (TYLENOL) 325 mg tablet Take 2 tablets by mouth every 6 hours as needed (Temp greater than 38.5C). 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] 09/05/2014 Depression [F32.A] 09/05/2014 Anxiety [F41.9] 09/05/2014 Diarrhea [R19.7] 09/08/2014 S/P ERCP [Z98.890] 06/06/2022 Type 1 diabetes mellitus without complication (*06/06/2022 Chronic pancreatitis (HCC) [K86.1] 06/06/2022 GERD (gastroesophageal reflux disease) [K21.9] 06/06/2022 Nicotine use disorder, F17.2 [F17.200] 06/06/2022 Malnutrition of moderate degree (HCC) [E44.0] 06/07/2022 Chronic calcific pancreatitis (HCC) [K86.1] 06/08/2022 Acute on chronic pancreatitis (HCC) [K85.90, K8*06/14/2022 06/14/2022 Encounter Status:Closed by RAFFI SANTIAGO on 11/07/23 [facility] 11-06-2023 [facility] Telephone ([facility]) -------- JULIETH SPENCER ([id number]) 1985 F Date Time Provider Department 11/06/23 RAFFI SANTIAGO [facility] During your visit today, we recorded the following information about you: Raffi Santiago RN 11/08/2023 3:41 PM Addendum Prior Authorization Documentation Prior authorization requested for: MEDICATION dilaudid ER Submitted via Cover My Meds/[place] Julieth Spencer ([place]: [id number]) - [id number] Authorization approval #: medication denied. Nurse call to [facility] and submitted an appeal. Ref# appeal [id number] Should get response by Saturday. PA approved Time Spent 45 Raffi Santiago RN November 06, 2023 Allergies As of Date: 11/06/2023 Noted Allergy Reaction BACTRIM (SULFAMETHOXAZOLE) 05/03/2014 2 - Rash MORPHINE 09/05/2014 14 - Other: See Comments Comments: Visual hallucinations Date Reviewed: 06/14/2022 Reviewed by: Cathy Carter, KISHA - Fully Assessed Reason for Visit: Insurance Authorization [1693] Prescriptions as of 11/08/2023 - oxyCODONE (ROXICODONE) 15 mg immediate release tablet Take 1 tablet by mouth every 4 hours as needed for pain for up to 30 days. - pantoprazole DR (PROTONIX) 40 mg tablet Take 1 tablet by mouth once daily. - HYDROmorphone (EXALGO) 8 mg ER tablet Take 1 tablet by mouth two times a day for 30 days. - LORazepam (ATIVAN) 0.5 mg Take 0.5 mg by mouth two times a day. - cariprazine (VRAYLAR) 1.5 mg capsule Take 1.5 mg by mouth once daily. - atomoxetine (STRATTERA) 60 mg capsule Take 60 mg by mouth once daily. - acyclovir (ZOVIRAX) 400 mg tablet Take 400 mg by mouth. - VRAYLAR 1.5 mg capsule Take 1 capsule by mouth every afternoon. - cloNIDine HCl (CATAPRES) 0.1 mg tablet Take 0.1 mg by mouth daily at bedtime. - AUVELITY 45-105 mg tablet Take 1 tablet by mouth every afternoon. - insulin lispro (HUMALOG KWIKPEN) 100 unit/mL Inject subcutaneously. - HUMALOG KWIKPEN INSULIN 100 unit/mL 1:30 ICR 3 TIMES A DAY BEFORE MEALS. CORRCTIVE SCALE 1:50 BEFORE MEALS - loperamide HCl (IMODIUM) 2 mg tab Take by mouth. - LORazepam (ATIVAN) 0.5 mg Take 1 tablet by mouth every 12 hours. - Mirtazapine (REMERON) 7.5 mg tablet Take 7.5 mg by mouth daily at bedtime. - promethazine (PHENERGAN) 25 mg tablet Take 1 tablet by mouth every 6 hours as needed. - zpygop-gnvmufzo-clgekti (CREON) 36,000-114,000- 180,000 unit delayed release capsule Take 2 capsules by mouth three times daily before meals. - adalimumab (HUMIRA) 40 mg/0.8 mL injection Inject 0.8 mL subcutaneously every 2 weeks. - busPIRone (BUSPAR) 10 mg tablet Take 10 mg by mouth twice daily. - traZODone (DESYREL) 100 mg tablet Take 100 mg by mouth daily at bedtime. - cyanocobalamin, vitamin B-12, 3,000 mcg cap Take 1 capsule by mouth once every month. - cholecalciferol (VITAMIN D3) 1,000 unit tab tablet Take 1,000 Units by mouth once daily. - DULoxetine (CYMBALTA) 60 mg capsule Take 60 mg by mouth once daily. - gabapentin (NEURONTIN) 800 mg tablet Take 800 mg by mouth three times daily. - BAQSIMI 3 mg/actuation nasal spray Use 1 [place] in the nose as needed. - insulin glargine (LANTUS SOLOSTAR, BASAGLAR KWIKPEN) 100 unit/mL (3 mL) Inject 20 Units subcutaneously q 24 HR. - sucralfate (CARAFATE) 1 gram tablet Take 1 g by mouth four times daily. - hyoscyamine SR (LEVBID) 0.375 mg 12 hr tablet Take 1 tablet by mouth q 12 HR. - acetaminophen (TYLENOL) 325 mg tablet Take 2 tablets by mouth every 6 hours as needed (Temp greater than 38.5C). 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] 09/05/2014 Depression [F32.A] 09/05/2014 Anxiety [F41.9] 09/05/2014 Diarrhea [R19.7] 09/08/2014 S/P ERCP [Z98.890] 06/06/2022 Type 1 diabetes mellitus without complication (*06/06/2022 Chronic pancreatitis (HCC) [K86.1] 06/06/2022 GERD (gastroesophageal reflux disease) [K21.9] 06/06/2022 Nicotine use disorder, F17.2 [F17.200] 06/06/2022 Malnutrition of moderate degree (HCC) [E44.0] 06/07/2022 Chronic calcific pancreatitis (HCC) [K86.1] 06/08/2022 Acute on chronic pancreatitis (HCC) [K85.90, K8*06/14/2022 06/14/2022 Encounter Status:Closed by RAFFI SANTIAGO on 11/08/23 Normal [facility] Glucose Test strip manual (B ld) [Mass/Vol]on 11-06-2023 Glucose [Mass/Vol] 293 mg/dL High 74-99 [facility] Comment on above: Performed By: #### 2 341-6 ####GARRY Schmid ([id number])[facility] ([facility])[address] [place] [address] [place] [address] Glucose [Mass/Vol] 293 mg/dL High 74 - 99 mg/dL [facility] Interpretation and review of laboratory results Abnormal [facility] Glucose [Mass/Vol] 193 mg/dL High 74-99 [facility] Comment on above: Performed By: #### 2 341-6 ####GARRY Schmid ([id number])[facility] ([facility])[address] [place] [address] Glucose [Mass/Vol] 148 mg/dL High 74-99 [facility] Comment on above: Performed By: #### 2 341-6 ####GARRY Schmid ([id number])[facility] ([facility])[address] [place] [address] Glucose [Mass/Vol] 193 mg/dL High 74 - 99 mg/dL [facility] Interpretation and review of laboratory results Abnormal [facility] Glucose [Mass/Vol] 48 mg/dL Low 74-99 [facility] Comment on above: Performed By: #### 2 341-6 ####GARRY Schmid ([id number])[facility] ([facility])[address] [place] [address] Glucose [Mass/Vol] 148 mg/dL High 74 - 99 mg/dL [facility] Interpretation and review of laboratory results Abnormal [facility] Glucose [Mass/Vol] 48 mg/dL Low 74 - 99 mg/dL [facility] Interpretation and review of laboratory results Abnormal [facility] Glucose [Mass/Vol] 321 mg/dL High 74-99 [facility] Comment on above: Result Comment: RN/David Vasquez NOTIFIED Performed By: #### 2 341-6 ####GARRY Schmid ([id number])[facility] ([facility])[address] [place] [address] Glucose [Mass/Vol] 441 mg/dL High 74-99 [facility] Comment on above: Performed By: #### 2 341-6 ####GARRY Schmid ([id number])[facility] ([facility])[address] [place] [address] Glucose [Mass/Vol] 321 mg/dL High 74 - 99 mg/dL [facility] Interpretation and review of laboratory results Abnormal [facility] Bacteria identified Cx Nom ( Bld)on 11-05-2023 Interpretation and review of laboratory results Normal [facility] CBC panel Auto (Bld)on 11-05 Erythrocyte distribution width (RBC) [Ratio] 15.6 % High 11.5-14.5 [facility] Comment on above: Performed By: #### 5 8410-2 ####GARRY Schmid ([id number])[facility] ([facility])[address] [place] [address] Hematocrit (Bld) [Volume fraction] 30.7 % Low 36.0-46.0 [facility] Comment on above: Performed By: #### 5 8410-2 ####GARRY Schmid ([id number])[facility] ([facility])[address] [place] [address] Hemoglobin (Bld) [Mass/Vol] 9.6 g/dL Low 12.0-16.0 [facility] Comment on above: Performed By: #### 5 8410-2 ####GARRY Schmid ([id number])[facility] ([facility])[address] [place] [address] MCH (RBC) [Entitic mass] 29.1 pg Normal 26.0-34.0 [facility] Comment on above: Performed By: #### 5 8410-2 ####GARRY Schmid ([id number])[facility] ([facility])[address] [place] [address] MCHC (RBC) [Mass/Vol] 31.3 g/dL Low 32.0-36.0 [facility] Comment on above: Performed By: #### 5 8410-2 ####GARRY Schmid ([id number])[facility] ([facility])[address] [place] [address] MCV (RBC) [Entitic vol] 93 fL Normal 80-100 [facility] Comment on above: Performed By: #### 5 8410-2 ####GARRY Schmid ([id number])[facility] ([facility])[address] [place] [address] Nucleated RBC/100 WBC (Bld) [Ratio] 0.0 /100 WBCs Normal 0.0-0.0 [facility] Comment on above: Performed By: #### 5 8410-2 ####GARRY Schmid ([id number])[facility] ([facility])[address] [place] [address] Platelets (Bld) [#/Vol] 1057 x10*3/uL High 150-450 [facility] Comment on above: Performed By: #### 5 8410-2 ####GARRY Schmid ([id number])[facility] ([facility])[id number] [place] [address] RBC (Bld) [#/Vol] 3.30 x10*6/uL Low 4.00-5.20 [facility] Comment on above: Performed By: #### 5 8410-2 ####GARRY Schmid ([id number])[facility] ([facility])[address] [place] [address] WBC (Bld) [#/Vol] 9.7 x10*3/uL Normal 4.4-11.3 [facility] Comment on above: Performed By: #### 5 8410-2 ####GARRY Schmid ([id number])[facility] ([facility])[address] [place] [address] Erythrocyte distribution width (RBC) [Ratio] 15.6 % High 11.5 - 14.5 % [facility] Hematocrit (Bld) [Volume fraction] 30.7 % Low 36.0 - 46.0 % [facility] Hemoglobin (Bld) [Mass/Vol] 9.6 g/dL Low 12.0 - 16.0 g/dL [facility] Interpretation and review of laboratory results Abnormal [facility] MCH (RBC) [Entitic mass] 29.1 pg 26.0 - 34.0 pg [facility] MCHC (RBC) [Mass/Vol] 31.3 g/dL Low 32.0 - 36.0 g/dL [facility] MCV (RBC) [Entitic vol] 93 fL 80 - 100 fL [facility] Nucleated RBC/100 WBC (Bld) [Ratio] 0.0 % [facility] Platelets (Bld) [#/Vol] 1057 10*3/uL High [facility] RBC (Bld) [#/Vol] 3.30 10*6/uL Low [facility] WBC (Bld) [#/Vol] 9.7 10*3/uL [facility] Comprehensive metabolic 2000 panelon 11-05-2023 Albumin BCP dye [Mass/Vol] 2.9 g/dL Low 3.4-5.0 [facility] Comment on above: Performed By: #### 2 4323-8 ####GARRY Schmid ([id number])[facility] ([facility])[address] [place] [address] ALP [Catalytic activity/Vol] 112 U/L High 33-110 [facility] Comment on above: Performed By: #### 2 4323-8 ####GARRY Schmid ([id number])[facility] ([facility])[address] [place] [address] ALT With P-5'-P [Catalytic activity/Vol] 12 U/L Normal 7-45 [facility] Comment on above: Result Comment: Gianna ents treated with Sulfasalazine may generate falsely decreased results for ALT. Performed By: #### 2 4323-8 ####GARRY Schmid ([id number])[facility] ([facility])[address] [place] [address] Anion gap [Moles/Vol] 14 mmol/L Normal 10-20 [facility] Comment on above: Performed By: #### 2 4323-8 ####GARRY Schmid ([id number])[facility] ([facility])[address] [place] [address] AST With P-5'-P [Catalytic activity/Vol] 17 U/L Normal 9-39 [facility] Comment on above: Performed By: #### 2 4323-8 ####GARRY Schmid ([id number])[facility] ([facility])[address] [place] [address] Bilirubin [Mass/Vol] 0.2 mg/dL Normal 0.0-1.2 [facility] Comment on above: Performed By: #### 2 4323-8 ####GARRY Schmid ([id number])[facility] ([facility])[address] [place] [address] Calcium [Mass/Vol] 8.8 mg/dL Normal 8.6-10.6 [facility] Comment on above: Performed By: #### 2 4323-8 ####GARRY Schmid ([id number])[facility] ([facility])[address] [place] [address] Chloride [Moles/Vol] 96 mmol/L Low 98-107 [facility] Comment on above: Performed By: #### 2 4323-8 ####GARRY PEREZ L ([id number])[facility] ([facility])[address] [place] [address] CO2 [Moles/Vol] 27 mmol/L Normal 21-32 [facility] Comment on above: Performed By: #### 2 4323-8 ####GARRY PEREZ L ([id number])[facility] ([facility])[address] [place] [address] Creatinine [Mass/Vol] 0.67 mg/dL Normal 0.50-1.05 [facility] Comment on above: Performed By: #### 2 4323-8 ####GARRY PEREZ L ([id number])[facility] ([facility])[address] [place] [address] GFR/1.73 sq M.predicted MDRD (S/P/Bld) [Vol rate/Area] mL/min/{1.73_m2} Normal >60 [facility] Comment on above: Result Comment: Calc ulations of estimated GFR are performed using the 2020 CKD-EPI Study Refit equation without the race variable for the IDMS-Traceable creatinine methods.https://jasn.asnjournals.org/content/early// N.7017821685 Performed By: #### 2 4323-8 ####GARRY Schmid ([id number])[facility] ([facility])[address] [place] [address] Glucose [Mass/Vol] 247 mg/dL High 74-99 [facility] Comment on above: Performed By: #### 2 4323-8 ####GARRY PEREZ L ([id number])[facility] ([facility])[address] [place] [address] Potassium [Moles/Vol] 5.4 mmol/L High 3.5-5.3 [facility] Comment on above: Performed By: #### 2 4323-8 ####GARRY PEREZ L ([id number])[facility] ([facility])[address] [place] [address] Protein [Mass/Vol] 6.3 g/dL Low 6.4-8.2 [facility] Comment on above: Performed By: #### 2 4323-8 ####GARRY PEREZ L ([id number])[facility] ([facility])[address] [place] [address] Sodium [Moles/Vol] 132 mmol/L Low 136-145 [facility] Comment on above: Performed By: #### 2 4323-8 ####GARRY PEREZ L ([id number])[facility] ([facility])[address] [place] [address] Urea nitrogen [Mass/Vol] 7 mg/dL Normal 6-23 [facility] Comment on above: Performed By: #### 2 4323-8 ####GARRY Schmid ([id number])[facility] ([facility])[address] [place] [address] Albumin BCP dye [Mass/Vol] 2.9 g/dL Low 3.4 - 5.0 g/dL [facility] ALP [Catalytic activity/Vol] 112 U/L High 33 - 110 U/L [facility] ALT With P-5'-P [Catalytic activity/Vol] 12 U/L 7 - 45 U/L [facility] Anion gap [Moles/Vol] 14 mmol/L 10 - 2 0 mmol/L [facility] AST With P-5'-P [Catalytic activity/Vol] 17 U/L 9 - 39 U/L [facility] Bilirubin [Mass/Vol] 0.2 mg/dL 0.0 - 1 .2 mg/dL [facility] Calcium [Mass/Vol] 8.8 mg/dL 8.6 - 10. 6 mg/dL [facility] Chloride [Moles/Vol] 96 mmol/L Low 98 - 10 7 mmol/L [facility] CO2 [Moles/Vol] 27 mmol/L 21 - 32 mmol/L [facility] Creatinine [Mass/Vol] 0.67 mg/dL 0.50 - 1.05 mg/dL [facility] eGFR - PINF [facility] Glucose [Mass/Vol] 247 mg/dL High 74 - 99 mg/dL [facility] Interpretation and review of laboratory results Abnormal [facility] Potassium [Moles/Vol] 5.4 mmol/L High 3.5 - 5.3 mmol/L [facility] Protein [Mass/Vol] 6.3 g/dL Low 6.4 - 8.2 g/dL [facility] Sodium [Moles/Vol] 132 mmol/L Low 136 - 145 mmol/L [facility] Urea nitrogen [Mass/Vol] 7 mg/dL 6 - 23 mg/dL [facility] Glucose Test strip manual (B ld) [Mass/Vol]on 11-05-2023 Glucose [Mass/Vol] 441 mg/dL High 74 - 99 mg/dL [facility] Interpretation and review of laboratory results Abnormal [facility] Glucose [Mass/Vol] 140 mg/dL High 74-99 [facility] Comment on above: Performed By: #### 2 341-6 ####GARRY Schmid ([id number])[facility] ([facility])[address] [place] [address] Glucose [Mass/Vol] 140 mg/dL High 74 - 99 mg/dL [facility] Interpretation and review of laboratory results Abnormal [facility] Glucose [Mass/Vol] 112 mg/dL High 74-99 [facility] Comment on above: Performed By: #### 2 341-6 ####GARRY Schmid ([id number])[facility] ([facility])[address] [place] [address] Glucose [Mass/Vol] 112 mg/dL High 74 - 99 mg/dL [facility] Interpretation and review of laboratory results Abnormal [facility] Glucose [Mass/Vol] 238 mg/dL High 74-99 [facility] Comment on above: Performed By: #### 2 341-6 ####GARRY Schmid ([id number])[facility] ([facility])[address] [place] [address] Glucose [Mass/Vol] 238 mg/dL High 74 - 99 mg/dL [facility] Interpretation and review of laboratory results Abnormal [facility] Glucose [Mass/Vol] 167 mg/dL High 74-99 [facility] Comment on above: Performed By: #### 2 341-6 ####GARRY Schmid ([id number])[facility] ([facility])[address] [place] [address] Glucose [Mass/Vol] 167 mg/dL High 74 - 99 mg/dL [facility] Interpretation and review of laboratory results Abnormal [facility] Glucose [Mass/Vol] 235 mg/dL High 74-99 [facility] Comment on above: Performed By: #### 2 341-6 ####GARRY Schmid ([id number])[facility] ([facility])[address] [place] [address] Glucose [Mass/Vol] 235 mg/dL High 74 - 99 mg/dL [facility] Interpretation and review of laboratory results Abnormal [facility] Glucose [Mass/Vol] 196 mg/dL High 74-99 [facility] Comment on above: Performed By: #### 2 341-6 ####GARRY Schmid ([id number])[facility] ([facility])[address] [place] [address] Glucose [Mass/Vol] 257 mg/dL High 74-99 [facility] Comment on above: Performed By: #### 2 341-6 ####GARRY Schmid ([id number])[facility] ([facility])[address] [place] [address] Glucose [Mass/Vol] 196 mg/dL High 74 - 99 mg/dL [facility] Interpretation and review of laboratory results Abnormal [facility] Laboratory - Microbiology an d Antimicrobial susceptibilityon 11-05-2023 Bacteria identified Cx Nom (Bld) No growth at 4 days - FINAL REPORT [facility] Magnesiumon 11-05-2023 Magnesium [Mass/Vol] 2.12 mg/dL Normal 1.60-2.40 [facility] Comment on above: Performed By: #### 1 9123-9 ####GARRY Schmid ([id number])[facility] ([facility])[address] [place] [address] Magnesium [Mass/Vol] 2.12 mg/dL 1.60 - 2.40 mg/dL [facility] Magnesium [Mass/Vol]on 11-05 Interpretation and review of laboratory results Normal [facility] No Panel Informationon 11-05 [facility] CBC panel Auto (Bld)on 11-04 Erythrocyte distribution width (RBC) [Ratio] 15.1 % High 11.5-14.5 [facility] Comment on above: Performed By: #### 5 8410-2 ####GARRY Schmid ([id number])[facility] ([facility])[address] [place] [address] Hematocrit (Bld) [Volume fraction] 26.7 % Low 36.0-46.0 [facility] Comment on above: Performed By: #### 5 8410-2 ####GARRY Schmid ([id number])[facility] ([facility])[address] [place] [address] Hemoglobin (Bld) [Mass/Vol] 8.9 g/dL Low 12.0-16.0 [facility] Comment on above: Performed By: #### 5 8410-2 ####GARRY Schmid ([id number])[facility] ([facility])[address] [place] [address] MCH (RBC) [Entitic mass] 29.7 pg Normal 26.0-34.0 [facility] Comment on above: Performed By: #### 5 8410-2 ####GARRY Schmid ([id number])[facility] ([facility])[address] [place] [address] MCHC (RBC) [Mass/Vol] 33.3 g/dL Normal 32.0-36.0 [facility] Comment on above: Performed By: #### 5 8410-2 ####GARRY Schmid ([id number])[facility] ([facility])[address] [place] [address] MCV (RBC) [Entitic vol] 89 fL Normal 80-100 [facility] Comment on above: Performed By: #### 5 8410-2 ####GARRY Schmid ([id number])[facility] ([facility])[address] [place] [address] Nucleated RBC/100 WBC (Bld) [Ratio] 0.0 /100 WBCs Normal 0.0-0.0 [facility] Comment on above: Performed By: #### 5 8410-2 ####GARRY Schmid ([id number])[facility] ([facility])[address] [place] [address] Platelets (Bld) [#/Vol] 1017 x10*3/uL High 150-450 [facility] Comment on above: Performed By: #### 5 8410-2 ####GARRY Schmid ([id number])[facility] ([facility])[address] [place] [address] RBC (Bld) [#/Vol] 3.00 x10*6/uL Low 4.00-5.20 [facility] Comment on above: Performed By: #### 5 8410-2 ####GARRY Schmid ([id number])[facility] ([facility])[address] [place] [address] WBC (Bld) [#/Vol] 8.5 x10*3/uL Normal 4.4-11.3 [facility] Comment on above: Performed By: #### 5 8410-2 ####GARRY Schmid ([id number])[facility] ([facility])[address] [place] [address] Erythrocyte distribution width (RBC) [Ratio] 15.1 % High 11.5 - 14.5 % [facility] Hematocrit (Bld) [Volume fraction] 26.7 % Low 36.0 - 46.0 % [facility] Hemoglobin (Bld) [Mass/Vol] 8.9 g/dL Low 12.0 - 16.0 g/dL [facility] Interpretation and review of laboratory results Abnormal [facility] MCH (RBC) [Entitic mass] 29.7 pg 26.0 - 34.0 pg [facility] MCHC (RBC) [Mass/Vol] 33.3 g/dL 32.0 - 36.0 g/dL [facility] MCV (RBC) [Entitic vol] 89 fL 80 - 100 fL [facility] Nucleated RBC/100 WBC (Bld) [Ratio] 0.0 % [facility] Platelets (Bld) [#/Vol] 1017 10*3/uL High [facility] RBC (Bld) [#/Vol] 3.00 10*6/uL Low [facility] WBC (Bld) [#/Vol] 8.5 10*3/uL [facility] Glucose Test strip manual (B ld) [Mass/Vol]on 11-04-2023 Glucose [Mass/Vol] 257 mg/dL High 74 - 99 mg/dL [facility] Interpretation and review of laboratory results Abnormal [facility] Glucose [Mass/Vol] 346 mg/dL High 74-99 [facility] Comment on above: Performed By: #### 2 341-6 ####GARRY Schmid ([id number])[facility] ([facility])[address] [place] [address] Glucose [Mass/Vol] 346 mg/dL High 74 - 99 mg/dL [facility] Interpretation and review of laboratory results Abnormal [facility] Glucose [Mass/Vol] 151 mg/dL High 74-99 [facility] Comment on above: Performed By: #### 2 341-6 ####GARRY Schmid ([id number])[facility] ([facility])[address] [place] [address] Glucose [Mass/Vol] 151 mg/dL High 74 - 99 mg/dL [facility] Interpretation and review of laboratory results Abnormal [facility] Glucose [Mass/Vol] 256 mg/dL High 74-99 [facility] Comment on above: Performed By: #### 2 341-6 ####GARRY Schmid ([id number])[facility] ([facility])[address] [place] [address] Glucose [Mass/Vol] 256 mg/dL High 74 - 99 mg/dL [facility] Interpretation and review of laboratory results Abnormal [facility] Glucose [Mass/Vol] 145 mg/dL High 74-99 [facility] Comment on above: Performed By: #### 2 341-6 ####GARRY Schmid ([id number])[facility] ([facility])[address] [place] [address] Glucose [Mass/Vol] 145 mg/dL High 74 - 99 mg/dL [facility] Interpretation and review of laboratory results Abnormal [facility] Glucose [Mass/Vol] 256 mg/dL High 74-99 [facility] Comment on above: Performed By: #### 2 341-6 ####GARRY Schmid ([id number])[facility] ([facility])[address] [place] [address] Glucose [Mass/Vol] 256 mg/dL High 74 - 99 mg/dL [facility] Interpretation and review of laboratory results Abnormal [facility] Glucose [Mass/Vol] 316 mg/dL High 74-99 [facility] Comment on above: Performed By: #### 2 341-6 ####GARRY Schmid ([id number])[facility] ([facility])[address] [place] [address] Glucose [Mass/Vol] 316 mg/dL High 74 - 99 mg/dL [facility] Interpretation and review of laboratory results Abnormal [facility] Glucose [Mass/Vol] 201 mg/dL High 74-99 [facility] Comment on above: Performed By: #### 2 341-6 ####GARRY Schmid ([id number])[facility] ([facility])[address] [place] [address] Magnesiumon 11-04-2023 Magnesium [Mass/Vol] 2.27 mg/dL Normal 1.60-2.40 [facility] Comment on above: Performed By: #### 1 9123-9 ####GARRY Schmid (24930)[facility] ([facility])[address] [place] [address] Magnesium [Mass/Vol] 2.27 mg/dL 1.60 - 2.40 mg/dL [facility] Magnesium [Mass/Vol]on 11-04 Interpretation and review of laboratory results Normal [facility] No Panel Informationon 11-04 [facility] Renal function 2000 panelon 11-04-2023 Albumin BCP dye [Mass/Vol] 2.7 g/dL Low 3.4-5.0 [facility] Comment on above: Performed By: #### 2 4362-6 ####GARRY Schmid ([id number])[facility] ([facility])[address] [place] [address] Anion gap [Moles/Vol] 12 mmol/L Normal 10-20 [facility] Comment on above: Performed By: #### 2 4362-6 ####GARRY Schmid ([id number])[facility] ([facility])[address] [place] [address] Calcium [Mass/Vol] 8.7 mg/dL Normal 8.6-10.6 [facility] Comment on above: Performed By: #### 2 4362-6 ####GARRY Schmid ([id number])[facility] ([facility])[address] [place] [address] Chloride [Moles/Vol] 99 mmol/L Normal 98-107 [facility] Comment on above: Performed By: #### 2 4362-6 ####GARRY Schmid (67452)[facility] ([facility])[address] [place] [address] CO2 [Moles/Vol] 30 mmol/L Normal 21-32 [facility] Comment on above: Performed By: #### 2 4362-6 ####GARRY Schmid ([id number])[facility] ([facility])[address] [place] [address] Creatinine [Mass/Vol] 0.65 mg/dL Normal 0.50-1.05 [facility] Comment on above: Performed By: #### 2 4362-6 ####GARRY Schmid ([id number])[facility] ([facility])[address] [place] [address] GFR/1.73 sq M.predicted MDRD (S/P/Bld) [Vol rate/Area] mL/min/{1.73_m2} Normal >60 [facility] Comment on above: Result Comment: Calc ulations of estimated GFR are performed using the 2020 CKD-EPI Study Refit equation without the race variable for the IDMS-Traceable creatinine methods.https://jasn.asnjournals.org/content// N.2139208272 Performed By: #### 2 4362-6 ####GARRY Schmid ([id number])[facility] ([facility])[address] [place] [address] Glucose [Mass/Vol] 168 mg/dL High 74-99 [facility] Comment on above: Performed By: #### 2 4362-6 ####GARRY Schmid ([id number])[facility] ([facility])[address] [place] [address] Phosphate [Mass/Vol] 3.7 mg/dL Normal 2.5-4.9 [facility] Comment on above: Result Comment: The performance characteristics of phosphorus testing in heparinized plasma have been validated by the individual laboratory site where testing is performed. Testing on heparinized plasma is not approved by the FDA; however, such approval is not necessary. Performed By: #### 2 4362-6 ####GARRY Schmid ([id number])[facility] ([facility])[address] [place] [address] Potassium [Moles/Vol] 5.2 mmol/L Normal 3.5-5.3 [facility] Comment on above: Performed By: #### 2 4362-6 ####GARRY Schmid ([id number])[facility] ([facility])[address] [place] [address] Sodium [Moles/Vol] 136 mmol/L Normal 136-145 [facility] Comment on above: Performed By: #### 2 4362-6 ####GARRY Schmid ([id number])[facility] ([facility])[address] [place] [address] Urea nitrogen [Mass/Vol] 6 mg/dL Normal 6-23 [facility] Comment on above: Performed By: #### 2 4362-6 ####GARRY Schmid ([id number])[facility] ([facility])[address] [place] [address] Albumin BCP dye [Mass/Vol] 2.7 g/dL Low 3.4 - 5.0 g/dL [facility] Anion gap [Moles/Vol] 12 mmol/L 10 - 2 0 mmol/L [facility] Calcium [Mass/Vol] 8.7 mg/dL 8.6 - 10. 6 mg/dL [facility] Chloride [Moles/Vol] 99 mmol/L 98 - 10 7 mmol/L [facility] CO2 [Moles/Vol] 30 mmol/L 21 - 32 mmol/L [facility] Creatinine [Mass/Vol] 0.65 mg/dL 0.50 - 1.05 mg/dL [facility] eGFR - PINF [facility] Glucose [Mass/Vol] 168 mg/dL High 74 - 99 mg/dL [facility] Interpretation and review of laboratory results Abnormal [facility] Phosphate [Mass/Vol] 3.7 mg/dL 2.5 - 4 .9 mg/dL [facility] Potassium [Moles/Vol] 5.2 mmol/L 3.5 - 5.3 mmol/L [facility] Sodium [Moles/Vol] 136 mmol/L 136 - 145 mmol/L [facility] Urea nitrogen [Mass/Vol] 6 mg/dL 6 - 23 mg/dL [facility] C. difficile toxin A+B tcdA+ tcdB genes DESIRE+probe Ql (Stl)Ordered By: Eileen Burt on 11-03-2023 Interpretation and review of laboratory results Normal [facility] C. difficile, PCROrdered By: Eileen Burt on 11-03-2023 C. difficile toxin A+B tcdA+tcdB genes DESIRE+probe Ql (Stl) Not detected Not Detected [facility] CBC panel Auto (Bld)on 11-03 Erythrocyte distribution width (RBC) [Ratio] 14.6 % High 11.5-14.5 [facility] Comment on above: Performed By: #### 5 8410-2 ####GARRY Schmid ([id number])[facility] ([facility])[address] [place] [address] Hematocrit (Bld) [Volume fraction] 23.8 % Low 36.0-46.0 [facility] Comment on above: Performed By: #### 5 8410-2 ####GARRY Schmid ([id number])[facility] ([facility])[address] [place] [address] Hemoglobin (Bld) [Mass/Vol] 8.0 g/dL Low 12.0-16.0 [facility] Comment on above: Performed By: #### 5 8410-2 ####GARRY Schmid ([id number])[facility] ([facility])[address] [place] [address] MCH (RBC) [Entitic mass] 29.1 pg Normal 26.0-34.0 [facility] Comment on above: Performed By: #### 5 8410-2 ####GARRY Schmid ([id number])[facility] ([facility])[address] [place] [address] MCHC (RBC) [Mass/Vol] 33.6 g/dL Normal 32.0-36.0 [facility] Comment on above: Performed By: #### 5 8410-2 ####GARRY Schmid ([id number])[facility] ([facility])[address] [place] [address] MCV (RBC) [Entitic vol] 87 fL Normal 80-100 [facility] Comment on above: Performed By: #### 5 8410-2 ####GARRY Schmid ([id number])[facility] ([facility])[address] [place] [address] Nucleated RBC/100 WBC (Bld) [Ratio] 0.0 /100 WBCs Normal 0.0-0.0 [facility] Comment on above: Performed By: #### 5 8410-2 ####GARRY Schmid ([id number])[facility] ([facility])[address] [place] [address] Platelets (Bld) [#/Vol] 1038 x10*3/uL High 150-450 [facility] Comment on above: Performed By: #### 5 8410-2 ####GARRY Schmid ([id number])[facility] ([facility])[address] [place] [address] RBC (Bld) [#/Vol] 2.75 x10*6/uL Low 4.00-5.20 [facility] Comment on above: Performed By: #### 5 8410-2 ####GARRY Schmid ([id number])[facility] ([facility])[address] [place] [address] WBC (Bld) [#/Vol] 7.3 x10*3/uL Normal 4.4-11.3 [facility] Comment on above: Performed By: #### 5 8410-2 ####GARRY Schmid ([id number])[facility] ([facility])[address] [place] [address] Erythrocyte distribution width (RBC) [Ratio] 14.6 % High 11.5 - 14.5 % [facility] Hematocrit (Bld) [Volume fraction] 23.8 % Low 36.0 - 46.0 % [facility] Hemoglobin (Bld) [Mass/Vol] 8.0 g/dL Low 12.0 - 16.0 g/dL [facility] Interpretation and review of laboratory results Abnormal [facility] MCH (RBC) [Entitic mass] 29.1 pg 26.0 - 34.0 pg [facility] MCHC (RBC) [Mass/Vol] 33.6 g/dL 32.0 - 36.0 g/dL [facility] MCV (RBC) [Entitic vol] 87 fL 80 - 100 fL [facility] Nucleated RBC/100 WBC (Bld) [Ratio] 0.0 % [facility] Platelets (Bld) [#/Vol] 1038 10*3/uL High [facility] RBC (Bld) [#/Vol] 2.75 10*6/uL Low [facility] WBC (Bld) [#/Vol] 7.3 10*3/uL [facility] Clostridioides difficile tox in A+B tcdA+tcdB geneson 11-03-2023 C. difficile toxin A+B tcdA+tcdB genes DESIRE+probe Ql (Stl) Clostridioides difficile toxin A+B tcdA+tcdB genes Not Detected Normal Not Detected [facility] Comment on above: Order Comment: This test is an FDA-cleared real-time PCR assay for detection of toxigenic C. difficile DNA from unprocessed liquid or unformed stool specimens that have not undergone nucleic acid extraction in symptomatic patients with potential C. difficile infection (CDI). A positive result may indicate colonization, and clinical assessment is required for the diagnosis of CDI. This test cannot be performed on formed stools or used as a test of cure, and should not be performed more than once per 7 days. Performed By: #### 8 0685-1 ####GARRY Schmid ([id number])[facility] ([facility])[address] [place] [address] Gastrointestinal pathogens i dentifiedon 11-03-2023 Gastrointestinal pathogens identified DESIRE+probe Nom (Stl) Normal Not Detected [facility] Comment on above: Performed By: #### 7 9390-1 ####GARRY Schmid ([id number])[facility] ([facility])[address] [place] [address] Gastrointestinal pathogens i dentified DESIRE+probe Nom (Stl)on 11-03-2023 Campylobacter Group Not detected Not Detected [facility] Work Phone: E. coli stx1 gene DESIRE+probe Ql (Stl) Not detected Not Detected [facility] Work Phone: E. coli stx2 gene DESIRE+probe Ql (Stl) Not detected Not Detected [facility] Work Phone: Interpretation and review of laboratory results Normal [facility] Work Phone: Norovirus genogroup I and II RNA DESIRE+probe Nom (Stl) Not detected Not Detected [facility] Work Phone: Rotavirus RNA DESIRE+probe Nom (Stl) Not detected Not Detected [facility] Work Phone: Salmonella species Not detected Not [facility]: Shigella sp DNA DESIRE+probe Ql (Unsp spec) Not detected Not Detected [facility] Work Phone: [employer] Not detected Not Detected [facility] Work Phone: Y. enterocolitica DNA DESIRE+probe Ql (Stl) Not detected Not Detected [facility] Work Phone: [facility] Work Phone: Glucose Test strip manual (B ld) [Mass/Vol]on 11-03-2023 Glucose [Mass/Vol] 201 mg/dL High 74 - 99 mg/dL [facility] Interpretation and review of laboratory results Abnormal [facility] Glucose [Mass/Vol] 205 mg/dL High 74-99 [facility] Comment on above: Performed By: #### 2 341-6 ####GARRY Schmid ([id number])[facility] ([facility])[address] [place] [address] Glucose [Mass/Vol] 205 mg/dL High 74 - 99 mg/dL [facility] Interpretation and review of laboratory results Abnormal [facility] Glucose [Mass/Vol] 253 mg/dL High 74-99 [facility] Comment on above: Performed By: #### 2 341-6 ####GARRY Schmid ([id number])[facility] ([facility])[address] [place] [address] Glucose [Mass/Vol] 253 mg/dL High 74 - 99 mg/dL [facility] Interpretation and review of laboratory results Abnormal [facility] Glucose [Mass/Vol] 161 mg/dL High 74-99 [facility] Comment on above: Performed By: #### 2 341-6 ####GARRY Schmid ([id number])[facility] ([facility])[address] [place] [address]3431 Glucose [Mass/Vol] 66 mg/dL Low 74-99 [facility] Comment on above: Performed By: #### 2 341-6 ####GARRY Schmid ([id number])[facility] ([facility])[address] [place] [address]76 Glucose [Mass/Vol] 161 mg/dL High 74 - 99 mg/dL [facility] Interpretation and review of laboratory results Abnormal [facility] Glucose [Mass/Vol] 66 mg/dL Low 74 - 99 mg/dL [facility] Interpretation and review of laboratory results Abnormal [facility] Glucose [Mass/Vol] 220 mg/dL High 74-99 [facility] Comment on above: Performed By: #### 2 341-6 ####GARRY Schmid ([id number])[facility] ([facility])[address] [place] [address] Glucose [Mass/Vol] 220 mg/dL High 74 - 99 mg/dL [facility] Interpretation and review of laboratory results Abnormal [facility] Glucose [Mass/Vol] 111 mg/dL High 74-99 [facility] Comment on above: Performed By: #### 2 341-6 ####GARRY Schmid ([id number])[facility] ([facility])[address] [place] [address] Glucose [Mass/Vol] 111 mg/dL High 74 - 99 mg/dL [facility] Interpretation and review of laboratory results Abnormal [facility] Glucose [Mass/Vol] 250 mg/dL High 74-99 [facility] Comment on above: Performed By: #### 2 341-6 ####GARRY Schmid ([id number])[facility] ([facility])[address] [place] [address] Glucose [Mass/Vol] 250 mg/dL High 74 - 99 mg/dL [facility] Interpretation and review of laboratory results Abnormal [facility] Magnesiumon 11-03-2023 Magnesium [Mass/Vol] 2.14 mg/dL Normal 1.60-2.40 [facility] Comment on above: Performed By: #### 1 9123-9 ####GARRY Schmid ([id number])[facility] ([facility])[address] [place] [address] Magnesium [Mass/Vol] 2.14 mg/dL 1.60 - 2.40 mg/dL [facility] Magnesium [Mass/Vol]on 11-03 Interpretation and review of laboratory results Normal [facility] No Panel Informationon 11-03 [facility] Renal function 2000 panelon 11-03-2023 Albumin BCP dye [Mass/Vol] 2.4 g/dL Low 3.4-5.0 [facility] Comment on above: Performed By: #### 2 4362-6 ####GARRY Schmid ([id number])[facility] ([facility])[address] [place] [address] Anion gap [Moles/Vol] 12 mmol/L Normal 10-20 [facility] Comment on above: Performed By: #### 2 4362-6 ####GARRY Schmid ([id number])[facility] ([facility])[address] [place] [address] Calcium [Mass/Vol] 8.2 mg/dL Low 8.6-10.6 [facility] Comment on above: Performed By: #### 2 4362-6 ####GARRY Schmid ([id number])[facility] ([facility])[address] [place] [address] Chloride [Moles/Vol] 100 mmol/L Normal 98-107 [facility] Comment on above: Performed By: #### 2 4362-6 ####GARRY Schmid ([id number])[facility] ([facility])[address] [place] [address] CO2 [Moles/Vol] 32 mmol/L Normal 21-32 [facility] Comment on above: Performed By: #### 2 4362-6 ####GARRY Schmid ([id number])[facility] ([facility])[address] [place] [address] Creatinine [Mass/Vol] 0.62 mg/dL Normal 0.50-1.05 [facility] Comment on above: Performed By: #### 2 4362-6 ####GARRY Schmid ([id number])[facility] ([facility])[address] [place] [address] GFR/1.73 sq M.predicted MDRD (S/P/Bld) [Vol rate/Area] mL/min/{1.73_m2} Normal >60 [facility] Comment on above: Result Comment: Calc ulations of estimated GFR are performed using the 2020 CKD-EPI Study Refit equation without the race variable for the IDMS-Traceable creatinine methods.https://jasn.asnjournals.org/content// N.8927934258 Performed By: #### 2 4362-6 ####GARRY Schmid ([id number])[facility] ([facility])[address] [place] [address] Glucose [Mass/Vol] 126 mg/dL High 74-99 [facility] Comment on above: Performed By: #### 2 4362-6 ####GARRY Schmid ([id number])[facility] ([facility])[address] [place] [address] Phosphate [Mass/Vol] 3.7 mg/dL Normal 2.5-4.9 [facility] Comment on above: Result Comment: The performance characteristics of phosphorus testing in heparinized plasma have been validated by the individual laboratory site where testing is performed. Testing on heparinized plasma is not approved by the FDA; however, such approval is not necessary. Performed By: #### 2 4362-6 ####GARRY Schmid ([id number])[facility] ([facility])[address] [place] [address] Potassium [Moles/Vol] 4.5 mmol/L Normal 3.5-5.3 [facility] Comment on above: Performed By: #### 2 4362-6 ####GARRY Schmid ([id number])[facility] ([facility])[address] [place] [address] Sodium [Moles/Vol] 139 mmol/L Normal 136-145 [facility] Comment on above: Performed By: #### 2 4362-6 ####GARRY Schmid ([id number])[facility] ([facility])[address] [place] [address] Urea nitrogen [Mass/Vol] 4 mg/dL Low 6-23 [facility] Comment on above: Performed By: #### 2 4362-6 ####GARRY Schmid ([id number])[facility] ([facility])[address] [place] [address] Albumin BCP dye [Mass/Vol] 2.4 g/dL Low 3.4 - 5.0 g/dL [facility] Anion gap [Moles/Vol] 12 mmol/L 10 - 2 0 mmol/L [facility] Calcium [Mass/Vol] 8.2 mg/dL Low 8.6 - 10. 6 mg/dL [facility] Chloride [Moles/Vol] 100 mmol/L 98 - 10 7 mmol/L [facility] CO2 [Moles/Vol] 32 mmol/L 21 - 32 mmol/L [facility] Creatinine [Mass/Vol] 0.62 mg/dL 0.50 - 1.05 mg/dL [facility] eGFR - PINF [facility] Glucose [Mass/Vol] 126 mg/dL High 74 - 99 mg/dL [facility] Interpretation and review of laboratory results Abnormal [facility] Phosphate [Mass/Vol] 3.7 mg/dL 2.5 - 4 .9 mg/dL [facility] Potassium [Moles/Vol] 4.5 mmol/L 3.5 - 5.3 mmol/L [facility] Sodium [Moles/Vol] 139 mmol/L 136 - 145 mmol/L [facility] Urea nitrogen [Mass/Vol] 4 mg/dL Low 6 - 23 mg/dL [facility] Triglycerideon 11-03-2023 Triglyceride (Body fld) [Mass/Vol] 275 mg/dL Normal No established [facility] Comment on above: Order Comment: The p erformance characteristics of this test have been validated on peritoneal/ascites,pleural, pericardial and drain fluid by the [facility] laboratory. This test has not been approved by the FDA; however, such approval is not necessary. Performed By: #### 1 2228-3 ####GARRY Schmid ([id number])[facility] ([facility])[address] [place] [address] Triglyceride (Body fld) [Mas s/Vol]on 11-03-2023 [facility] Triglycerides, Fluidon 11-03 Triglyceride (Body fld) [Mass/Vol] 275 mg/dL No established [facility] Bacteria identified Cx Nom ( U)Ordered By: Agustin Bhakta on 11-02-2023 Interpretation and review of laboratory results Normal [facility] CBC panel Auto (Bld)on 11-02 Erythrocyte distribution width (RBC) [Ratio] 15.1 % High 11.5-14.5 [facility] Comment on above: Performed By: #### 5 8410-2 ####GARRY Schmid ([id number])[facility] ([facility])[address] [place] [address] Hematocrit (Bld) [Volume fraction] 24.4 % Low 36.0-46.0 [facility] Comment on above: Performed By: #### 5 8410-2 ####GARRY Schmid ([id number])[facility] ([facility])[address] [place] [address] Hemoglobin (Bld) [Mass/Vol] 7.7 g/dL Low 12.0-16.0 [facility] Comment on above: Performed By: #### 5 8410-2 ####GARRY Schmid ([id number])[facility] ([facility])[address] [place] [address] MCH (RBC) [Entitic mass] 28.9 pg Normal 26.0-34.0 [facility] Comment on above: Performed By: #### 5 8410-2 ####GARRY Schmid (47070)[facility] ([facility])[address] [place] [address] MCHC (RBC) [Mass/Vol] 31.6 g/dL Low 32.0-36.0 [facility] Comment on above: Performed By: #### 5 8410-2 ####GARRY Schmid ([id number])[facility] ([facility])[address] [place] [address] MCV (RBC) [Entitic vol] 92 fL Normal 80-100 [facility] Comment on above: Performed By: #### 5 8410-2 ####GARRY Schmid ([id number])[facility] ([facility])[address] [place] [address] Nucleated RBC/100 WBC (Bld) [Ratio] 0.0 /100 WBCs Normal 0.0-0.0 [facility] Comment on above: Performed By: #### 5 8410-2 ####GARRY Schmid ([id number])[facility] ([facility])[address] [place] [address] Platelets (Bld) [#/Vol] 1134 x10*3/uL High 150-450 [facility] Comment on above: Performed By: #### 5 8410-2 ####GARRY Schmid ([id number])[facility] ([facility])[address] [place] [address] RBC (Bld) [#/Vol] 2.66 x10*6/uL Low 4.00-5.20 [facility] Comment on above: Performed By: #### 5 8410-2 ####GARRY Schmid (47730)[facility] ([facility])[address] [place] [address] WBC (Bld) [#/Vol] 8.4 x10*3/uL Normal 4.4-11.3 [facility] Comment on above: Performed By: #### 5 8410-2 ####GARRY Schmid ([id number])[facility] ([facility])[address] [place] [address] Erythrocyte distribution width (RBC) [Ratio] 15.1 % High 11.5 - 14.5 % [facility] Hematocrit (Bld) [Volume fraction] 24.4 % Low 36.0 - 46.0 % [facility] Hemoglobin (Bld) [Mass/Vol] 7.7 g/dL Low 12.0 - 16.0 g/dL [facility] Interpretation and review of laboratory results Abnormal [facility] MCH (RBC) [Entitic mass] 28.9 pg 26.0 - 34.0 pg [facility] MCHC (RBC) [Mass/Vol] 31.6 g/dL Low 32.0 - 36.0 g/dL [facility] MCV (RBC) [Entitic vol] 92 fL 80 - 100 fL [facility] Nucleated RBC/100 WBC (Bld) [Ratio] 0.0 % [facility] Platelets (Bld) [#/Vol] 1134 10*3/uL High [facility] RBC (Bld) [#/Vol] 2.66 10*6/uL Low [facility] WBC (Bld) [#/Vol] 8.4 10*3/uL [facility] Cholesterolon 11-02-2023 Cholesterol (Body fld) [Mass/Vol] 82 mg/dL Normal Not established [facility] Comment on above: Result Comment: The performance characteristics of this method have not been validated for use with this fluid specimen type. The test result should be interpreted in conjunction with additional clinical and laboratory data. Performed By: #### 1 2183-0 ####GARRY Schmid ([id number])[facility] ([facility])[address] [place] [address] Cholesterol (Body fld) [Mass /Vol]on 11-02-2023 [facility] Cholesterol, Body Fluidon Cholesterol (Body fld) [Mass/Vol] 82 mg/dL Not established [facility] Glucose Test strip manual (B ld) [Mass/Vol]on 11-02-2023 Glucose [Mass/Vol] 160 mg/dL High 74-99 [facility] Comment on above: Performed By: #### 2 341-6 ####GARRY Schmid ([id number])[facility] ([facility])[address] [place] [address] Glucose [Mass/Vol] 160 mg/dL High 74 - 99 mg/dL [facility] Interpretation and review of laboratory results Abnormal [facility] Glucose [Mass/Vol] 157 mg/dL High 74-99 [facility] Comment on above: Performed By: #### 2 341-6 ####GARRY Schmid ([id number])[facility] ([facility])[address] [place] [address] Glucose [Mass/Vol] 157 mg/dL High 74 - 99 mg/dL [facility] Interpretation and review of laboratory results Abnormal [facility] Glucose [Mass/Vol] 237 mg/dL High 74-99 [facility] Comment on above: Performed By: #### 2 341-6 ####GARRY Schmid ([id number])[facility] ([facility])[address] [place] [address]8768 Glucose [Mass/Vol] 237 mg/dL High 74 - 99 mg/dL [facility] Interpretation and review of laboratory results Abnormal [facility] Glucose [Mass/Vol] 260 mg/dL High 74-99 [facility] Comment on above: Performed By: #### 2 341-6 ####GARRY Schmid ([id number])[facility] ([facility])[address] [place] [address] Glucose [Mass/Vol] 200 mg/dL High 74-99 [facility] Comment on above: Performed By: #### 2 341-6 ####GARRY Schmid ([id number])[facility] ([facility])[address] [place] [address] Glucose [Mass/Vol] 260 mg/dL High 74 - 99 mg/dL [facility] Interpretation and review of laboratory results Abnormal [facility] Glucose [Mass/Vol] 178 mg/dL High 74-99 [facility] Comment on above: Performed By: #### 2 341-6 ####GARRY Schmid ([id number])[facility] ([facility])[address] [place] [address] Glucose [Mass/Vol] 200 mg/dL High 74 - 99 mg/dL [facility] Interpretation and review of laboratory results Abnormal [facility] Glucose [Mass/Vol] 217 mg/dL High 74-99 [facility] Comment on above: Performed By: #### 2 341-6 ####GARRY Schmid ([id number])[facility] ([facility])[address] [place] [address] Glucose [Mass/Vol] 178 mg/dL High 74 - 99 mg/dL [facility] Interpretation and review of laboratory results Abnormal [facility] Glucose [Mass/Vol] 195 mg/dL High 74-99 [facility] Comment on above: Performed By: #### 2 341-6 ####GARRY Schmid ([id number])[facility] ([facility])[address] [place] [address] Glucose [Mass/Vol] 217 mg/dL High 74 - 99 mg/dL [facility] Interpretation and review of laboratory results Abnormal [facility] Glucose [Mass/Vol] 195 mg/dL High 74 - 99 mg/dL [facility] Interpretation and review of laboratory results Abnormal [facility] Glucose [Mass/Vol] 207 mg/dL High 74-99 [facility] Comment on above: Performed By: #### 2 341-6 ####GARRY Schmid ([id number])[facility] ([facility])[address] [place] [address] Glucose [Mass/Vol] 184 mg/dL High 74-99 [facility] Comment on above: Performed By: #### 2 341-6 ####GARRY Schmid ([id number])[facility] ([facility])[address] [place] [address] Glucose [Mass/Vol] 207 mg/dL High 74 - 99 mg/dL [facility] Interpretation and review of laboratory results Abnormal [facility] MRSA isol Org specific cx Ql (Nose)Ordered By: Alisa Campa on 11-02-2023 Interpretation and review of laboratory results Normal [facility] Staphylococcus sp identified Org specific cx Nom (Unsp spec) No Staphylococcus aureus isolated [facility] Magnesiumon 11-02-2023 Magnesium [Mass/Vol] 1.69 mg/dL Normal 1.60-2.40 [facility] Comment on above: Performed By: #### 1 9123-9 ####GARRY Schmid ([id number])[facility] ([facility])[address] [place] [address] Magnesium [Mass/Vol] 1.69 mg/dL 1.60 - 2.40 mg/dL [facility] Magnesium [Mass/Vol]on 11-02 Interpretation and review of laboratory results Normal [facility] No Panel Informationon 11-02 [facility] Renal function 2000 panelon 11-02-2023 Albumin BCP dye [Mass/Vol] 2.3 g/dL Low 3.4-5.0 [facility] Comment on above: Performed By: #### 2 4362-6 ####GARRY Schmid ([id number])[facility] ([facility])[address] [place] [address] Anion gap [Moles/Vol] 11 mmol/L Normal 10-20 [facility] Comment on above: Performed By: #### 2 4362-6 ####GARRY Schmid (32402)[facility] ([facility])[address] [place] [address] Calcium [Mass/Vol] 8.1 mg/dL Low 8.6-10.6 [facility] Comment on above: Performed By: #### 2 4362-6 ####GARRY PEREZ L ([id number])[facility] ([facility])[address] [place] [address] Chloride [Moles/Vol] 96 mmol/L Low 98-107 [facility] Comment on above: Performed By: #### 2 4362-6 ####GARRY PEREZ L ([id number])[facility] ([facility])[address] [place] [address] CO2 [Moles/Vol] 31 mmol/L Normal 21-32 [facility] Comment on above: Performed By: #### 2 4362-6 ####GARRY Schmid ([id number])[facility] ([facility])[address] [place] [address] Creatinine [Mass/Vol] 0.75 mg/dL Normal 0.50-1.05 [facility] Comment on above: Performed By: #### 2 4362-6 ####GARRY Schmid (94515)[facility] ([facility])[address] [place] [address] GFR/1.73 sq M.predicted MDRD (S/P/Bld) [Vol rate/Area] mL/min/{1.73_m2} Normal >60 [facility] Comment on above: Result Comment: Calc ulations of estimated GFR are performed using the 2020 CKD-EPI Study Refit equation without the race variable for the IDMS-Traceable creatinine methods.https://jasn.asnjournals.org/content/early/ N.6440247356 Performed By: #### 2 4362-6 ####GARRY Schmid ([id number])[facility] ([facility])[address] [place] [address] Glucose [Mass/Vol] 196 mg/dL High 74-99 [facility] Comment on above: Performed By: #### 2 4362-6 ####GARRY Schmid ([id number])[facility] ([facility])[address] [place] [address] Phosphate [Mass/Vol] 2.8 mg/dL Normal 2.5-4.9 [facility] Comment on above: Result Comment: The performance characteristics of phosphorus testing in heparinized plasma have been validated by the individual laboratory site where testing is performed. Testing on heparinized plasma is not approved by the FDA; however, such approval is not necessary. Performed By: #### 2 4362-6 ####GARRY Schmid (56286)[facility] ([facility])[address] [place] [address] Potassium [Moles/Vol] 5.0 mmol/L Normal 3.5-5.3 [facility] Comment on above: Performed By: #### 2 4362-6 ####GARRY Schmid ([id number])[facility] ([facility])[address] [place] [address] Sodium [Moles/Vol] 133 mmol/L Low 136-145 [facility] Comment on above: Performed By: #### 2 4362-6 ####GARRY Schmid ([id number])[facility] ([facility])[address] [place] [address] Urea nitrogen [Mass/Vol] 7 mg/dL Normal 6-23 [facility] Comment on above: Performed By: #### 2 4362-6 ####GARRY Schmid ([id number])[facility] ([facility])[address] [place] [address] Albumin BCP dye [Mass/Vol] 2.3 g/dL Low 3.4 - 5.0 g/dL [facility] Anion gap [Moles/Vol] 11 mmol/L 10 - 2 0 mmol/L [facility] Calcium [Mass/Vol] 8.1 mg/dL Low 8.6 - 10. 6 mg/dL [facility] Chloride [Moles/Vol] 96 mmol/L Low 98 - 10 7 mmol/L [facility] CO2 [Moles/Vol] 31 mmol/L 21 - 32 mmol/L [facility] Creatinine [Mass/Vol] 0.75 mg/dL 0.50 - 1.05 mg/dL [facility] eGFR - PINF [facility] Glucose [Mass/Vol] 196 mg/dL High 74 - 99 mg/dL [facility] Interpretation and review of laboratory results Abnormal [facility] Phosphate [Mass/Vol] 2.8 mg/dL 2.5 - 4 .9 mg/dL [facility] Potassium [Moles/Vol] 5.0 mmol/L 3.5 - 5.3 mmol/L [facility] Sodium [Moles/Vol] 133 mmol/L Low 136 - 145 mmol/L [facility] Urea nitrogen [Mass/Vol] 7 mg/dL 6 - 23 mg/dL [facility] Urine cultureOrdered By: Devaughn Bhakta on 11-02-2023 Bacteria identified Cx Nom (U) No growth [facility] Bacteria identifiedon 2023 Bacteria identified Cx Nom (Bld) [facility] Comment on above: Performed By: #### 6 00-7 ####GARRY Schmid ([id number])[facility] ([facility])[address] [place] [address] Bacteria identified Cx Nom (U) [facility] Comment on above: Performed By: #### 6 30-4 ####GARRY Schmid ([id number])[facility] [facility])[address] [place] [address]70 Basic metabolic 2000 panelon 11-01-2023 Anion gap [Moles/Vol] 34 mmol/L High 10-[address] [facility] Comment on above: Performed By: #### 2 4321-2 ####GARRY Schmid ([id number])[facility] ([facility])[address] [place] [address] Calcium [Mass/Vol] 8.9 mg/dL Normal 8.6-10.6 [facility] Comment on above: Performed By: #### 2 4321-2 ####GARRY PEREZ L ([id number])[facility] ([facility])[address] [place] [address] Chloride [Moles/Vol] 79 mmol/L Low 98-107 [facility] Comment on above: Performed By: #### 2 4321-2 ####GARRY NGMOTZER L ([id number])[facility] ([facility])[address] [place] [address] CO2 [Moles/Vol] 15 mmol/L Low 21-32 [facility] Comment on above: Performed By: #### 2 4321-2 ####GARRY PEREZ L ([id number])[facility] ([facility])[address] [place] [address] Creatinine [Mass/Vol] 1.04 mg/dL Normal 0.50-1.05 [facility] Comment on above: Performed By: #### 2 4321-2 ####GARRY PEREZ L ([id number])[facility] ([facility])[address] [place] [address] Glomerular filtration rate/1.73 sq M.predicted 72 mL/min/1.73m*2 Normal >60 [facility] Comment on above: Result Comment: Calc ulations of estimated GFR are performed using the 2020 CKD-EPI Study Refit equation without the race variable for the IDMS-Traceable creatinine methods.https://jasn.asnjournals.org/content/early/ N.3574181436 Performed By: #### 2 4321-2 ####GARRY PEREZ L ([id number])[facility] ([facility])[address] [place] [address] Glucose [Mass/Vol] 1161 mg/dL Critically high 74-99 [facility] Comment on above: Performed By: #### 2 4321-2 ####GARRY Schmid ([id number])[facility] ([facility])[address] [place] [address] Potassium [Moles/Vol] 6.5 mmol/L Critically high 3.5-5.3 [facility] Comment on above: Performed By: #### 2 4321-2 ####GARRY Schmid ([id number])[facility] ([facility])[address] [place] [address] Sodium [Moles/Vol] 121 mmol/L Low 136-145 [facility] Comment on above: Performed By: #### 2 4321-2 ####GARRY Schmid ([id number])[facility] ([facility])[address] [place] [address] Urea nitrogen [Mass/Vol] 6 mg/dL Normal 6-23 [facility] Comment on above: Performed By: #### 2 4321-2 ####GARRY Schmid ([id number])[facility] ([facility])[address] [place] [address] Anion gap [Moles/Vol] 34 mmol/L High 10 - 2 0 mmol/L [facility] Calcium [Mass/Vol] 8.9 mg/dL 8.6 - 10. 6 mg/dL [facility] Chloride [Moles/Vol] 79 mmol/L Low 98 - 10 7 mmol/L [facility] CO2 [Moles/Vol] 15 mmol/L Low 21 - 32 mmol/L [facility] Creatinine [Mass/Vol] 1.04 mg/dL 0.50 - 1.05 mg/dL [facility] GFR/1.73 sq M.predicted among non-blacks MDRD (S/P/Bld) [Vol rate/Area] 72 mL/min/{1.73_m2} - PINF [facility] Glucose [Mass/Vol] 1161 mg/dL Critically high 74 - 9 9 mg/dL [facility] Potassium [Moles/Vol] 6.5 mmol/L Critically high 3.5 - 5.3 mmol/L [facility] Sodium [Moles/Vol] 121 mmol/L Low 136 - 145 mmol/L [facility] Urea nitrogen [Mass/Vol] 6 mg/dL 6 - 23 mg/dL [facility] Beta hydroxybutyrate [Mass o r moles/Vol]on 11-01-2023 Beta hydroxybutyrate [Moles/Vol] 7.34 mmol/L High 0.02-0.27 [facility] Comment on above: Order Comment: The b eta-hydroxybutyrate test performance characteristics have been validated by [facility]. This test has not been approved by the FDA; however such approval is not necessary. Performed By: #### 3 5255-9 ####GARRY Schmid ([id number])[facility] ([facility])[address] [place], [place] [address] Beta hydroxybutyrate [Moles/Vol] 7.34 mmol/L High 0.02 - 0.27 mmol/L [facility] Interpretation and review of laboratory results Abnormal [facility] Blood Gas Lactic Acid, Venou son 11-01-2023 Lactate (BldV) [Moles/Vol] 4.0 mmol/L Critically high 0.4 - 2.0 mmol/L [facility] Blood type and Indirect anti body screen panel (Bld)on 11-01-2023 ABO group Nom (Bld) A [facility] Blood group antibody screen Ql Negative [facility] D Ag Ql (Bld) Positive [facility] ABO group Nom (Bld) A Normal [facility] Comment on above: Performed By: #### 3 4532-2 ####GARRY Schmid ([id number])[facility] ([facility])[address] [place] [address] Blood group antibody screen Ql Negative Normal [facility] Comment on above: Performed By: #### 3 4532-2 ####GARRY Schmid ([id number])[facility] ([facility])[address] [place] [address] D Ag Ql (Bld) Positive Normal [facility] Comment on above: Performed By: #### 3 4532-2 ####GARRY Schmid ([id number])[facility] ([facility] [place] [address] CBC panel Auto (Bld)on 11-01 Erythrocyte distribution width (RBC) [Ratio] 15.0 % High 11.5-14.5 [facility] Comment on above: Performed By: #### 5 8410-2 ####GARRY Schmid ([id number])[facility] ([facility])[address] [place] [address] Hematocrit (Bld) [Volume fraction] 30.4 % Low 36.0-46.0 [facility] Comment on above: Performed By: #### 5 8410-2 ####GARRY Schmid ([id number])[facility] ([facility])[address] [place] [address] Hemoglobin (Bld) [Mass/Vol] 9.3 g/dL Low 12.0-16.0 [facility] Comment on above: Performed By: #### 5 8410-2 ####GARRY Schmid ([id number])[facility] ([facility])[address] [place] [address] MCH (RBC) [Entitic mass] 29.6 pg Normal 26.0-34.0 [facility] Comment on above: Performed By: #### 5 8410-2 ####GARRY Schmid ([id number])[facility] ([facility])[address] [place] [address] MCHC (RBC) [Mass/Vol] 30.6 g/dL Low 32.0-36.0 [facility] Comment on above: Performed By: #### 5 8410-2 ####GARRY Schmid ([id number])[facility] ([facility])[address] [place] [address] MCV (RBC) [Entitic vol] 97 fL Normal 80-100 [facility] Comment on above: Performed By: #### 5 8410-2 ####GARRY Schmid ([id number])[facility] ([facility])[address] [place] [address] Nucleated RBC/100 WBC (Bld) [Ratio] 0.1 /100 WBCs High 0.0-0.0 [facility] Comment on above: Performed By: #### 5 8410-2 ####GARRY Schmid ([id number])[facility] ([facility])[address] [place] [address] Platelets (Bld) [#/Vol] 1455 x10*3/uL High 150-450 [facility] Comment on above: Performed By: #### 5 8410-2 ####GARRY Schmid ([id number])[facility] ([facility])[address] [place] [address] RBC (Bld) [#/Vol] 3.14 x10*6/uL Low 4.00-5.20 [facility] Comment on above: Performed By: #### 5 8410-2 ####GARRY Schmid ([id number])[facility] ([facility])[address] [place] [address] 33695 WBC (Bld) [#/Vol] 19.1 x10*3/uL High 4.4-11.3 [facility] Comment on above: Performed By: #### 5 8410-2 ####GARRY Schmid ([id number])[facility] ([facility])[address] [place] [address]64[address] Erythrocyte distribution width (RBC) [Ratio] 15.0 % High 11.5 - 14.5 % [facility] Hematocrit (Bld) [Volume fraction] 30.4 % Low 36.0 - 46.0 % [facility] Hemoglobin (Bld) [Mass/Vol] 9.3 g/dL Low 12.0 - 16.0 g/dL [facility] Interpretation and review of laboratory results Abnormal [facility] MCH (RBC) [Entitic mass] 29.6 pg 26.0 - 34.0 pg [facility] MCHC (RBC) [Mass/Vol] 30.6 g/dL Low 32.0 - 36.0 g/dL [facility] MCV (RBC) [Entitic vol] 97 fL 80 - 100 fL [facility] Nucleated RBC/100 WBC (Bld) [Ratio] 0.1 % High [facility] Platelets (Bld) [#/Vol] 1455 10*3/uL High [facility] RBC (Bld) [#/Vol] 3.14 10*6/uL Low [facility] WBC (Bld) [#/Vol] 19.1 10*3/uL High [facility] Erythrocyte distribution width (RBC) [Ratio] 14.8 % High 11.5-14.5 [facility] Comment on above: Performed By: #### 5 8410-2 ####GARRY Schmid ([id number])[facility] ([facility])[address] [place] [address] Hematocrit (Bld) [Volume fraction] 29.4 % Low 36.0-46.0 [facility] Comment on above: Performed By: #### 5 8410-2 ####GARRY Schmid ([id number])[facility] ([facility])[address] [place] [address] Hemoglobin (Bld) [Mass/Vol] 9.7 g/dL Low 12.0-16.0 [facility] Comment on above: Performed By: #### 5 8410-2 ####GARRY Schmid ([id number])[facility] ([facility])[address] [place] [address] MCH (RBC) [Entitic mass] 29.6 pg Normal 26.0-34.0 [facility] Comment on above: Performed By: #### 5 8410-2 ####GARRY Schmid ([id number])[facility] ([facility])[address] [place] [address] MCHC (RBC) [Mass/Vol] 33.0 g/dL Normal 32.0-36.0 [facility] Comment on above: Performed By: #### 5 8410-2 ####GARRY Schmid ([id number])[facility] ([facility])[address] [place] [address] MCV (RBC) [Entitic vol] 90 fL Normal 80-100 [facility] Comment on above: Performed By: #### 5 8410-2 ####GARRY Schmid ([id number])[facility] ([facility])[address] [place] [address] 45199 Nucleated RBC/100 WBC (Bld) [Ratio] 0.2 /100 WBCs High 0.0-0.0 [facility] Comment on above: Performed By: #### 5 8410-2 ####GARRY Schmid ([id number])[facility] ([facility])[address] [place] [address]43 Platelets (Bld) [#/Vol] 1497 x10*3/uL High 150-450 [facility] Comment on above: Performed By: #### 5 8410-2 ####GARRY Schmid ([id number])[facility] ([facility])[address] [place] [address]696 RBC (Bld) [#/Vol] 3.28 x10*6/uL Low 4.00-5.20 [facility] Comment on above: Performed By: #### 5 8410-2 ####GARRY Schmid ([id number])[facility] ([facility])[address] [place] [address] 20244 WBC (Bld) [#/Vol] 9.6 x10*3/uL Normal 4.4-11.3 [facility] Comment on above: Performed By: #### 5 8410-2 ####GARRY Schmid ([id number])[facility] ([facility])[address] [place] [address] Abdomen and Pelvis W cont rast Rodney 11-01-2023 [facility] Work Phone: Radiology Study observation (narrative) [facility] Work Phone: CT Abdomen and Pelvis W cont rast IVOrdered By: Sajan Duncan on 11-01-2023 [facility] Work Phone: CT LYMPHANGIOGRAPHY A P UNIL ATERALon 11-01-2023 CT LYMPHANGIOGRAPHY A P UNILATERAL Normal [facility] Calcium, Ionizedon 4 Calcium.ionized (Bld) [Moles/Vol] 1.10 mmol/L 1.1 - 1.33 mmol/L [facility] Calcium.ionized (Bld) [Moles/Vol] 1.16 mmol/L 1.1 - 1.33 mmol/L [facility] Calcium.ionized (Bld) [Moles/Vol] 1.21 mmol/L 1.1 - 1.33 mmol/L [facility] Calcium.ionizedon 11-01-2023 Calcium.ionized (Bld) [Moles/Vol] 1.10 mmol/L Normal 1.1-1.33 [facility] Comment on above: Result Comment: The performance characteristics of ionized calcium testedin heparinized plasma or serum [facility].Testing on heparinized plasma or serum is not approved [facility] FDA; however, such approval is not necessary. Performed By: #### 1 994-3 ####GARRY Schmid ([id number])[facility] ([facility])[address] [place], [place] [address] Calcium.ionized (Bld) [Moles/Vol] 1.16 mmol/L Normal 1.1-1.33 [facility] Comment on above: Result Comment: The performance characteristics of ionized calcium testedin heparinized plasma or serum have been validated [facility].Testing on heparinized plasma or serum is not approved [facility] FDA; however, such approval is not necessary. Performed By: #### 1 994-3 ####GARRY Schmid ([id number])[facility] ([facility])[address] [place] [address] Calcium.ionized (Bld) [Moles/Vol] 1.21 mmol/L Normal 1.1-1.33 [facility] Comment on above: Result Comment: The performance characteristics of ionized calcium testedin heparinized plasma or serum have been validated [facility] is performed.Testing on heparinized plasma or serum is not approved bythe FDA; however, such approval is not necessary. Performed By: #### 1 994-3 ####GARRY Schmid ([id number])[facility] ([facility])[address] [place] [address] Calcium.ionized (Bld) [Moles /Vol]on 11-01-2023 Interpretation and review of laboratory results Normal [facility] Interpretation and review of laboratory results Normal [facility] Interpretation and review of laboratory results Normal [facility] ECG 12-LEADon 11-01-2023 ECG 12-LEAD Ventricular Rate 85 Atrial Rate 85 P-R Interval 142 QRS Duration 108 Q-T Interval 366 QTC Calculation(Bazett) 435 P [place] 75 R [place] -37 T [place] 36 QRS Count 14 Q Onset 218 P Onset 147 P Offset 198 T Offset 401 QTC Fredericia 411 Diagnosis Normal sinus rhythm Possible Left atrial enlargement Left axis deviation Incomplete right bundle branch block Abnormal ECG When compared with ECG of 20-SEP-2023 17:05, No significant change since Confirmed by Getachew Carreon ([id number]) on 11/07/2023 2:41:38 PM Normal [facility] Gas panelon 11-01-2023 Lactate (BldV) [Moles/Vol] 3.2 mmol/L High 0.4-2.0 [facility] Comment on above: Performed By: #### 2 4339-4 ####GARRY Schmid ([id number])[facility] ([facility])[address] [place], [place] [address] Performed By: #### 2 519-7 ####GARRY Schmid ([id number])[facility] ([facility])[address] [place] [address]3470 Gas panel (BldV)on Anion gap 4 (BldV) [Moles/Vol] Normal [facility] Comment on above: Result Comment: NO R ESULT Performed By: #### 2 4339-4 ####GARRY Schmid ([id number])[facility] ([facility])[address] [place] [address]20 Base excess Calc (BldV) [Moles/Vol] 6.6 mmol/L High -2.0-3.0 [facility] Comment on above: Performed By: #### 2 4339-4 ####GARRY Schmid ([id number])[facility] ([facility])[address] [place] [address]4734 Calcium.ionized (BldV) [Moles/Vol] 1.12 mmol/L Normal 1.10-1.33 [facility] Comment on above: Performed By: #### 2 4339-4 ####GARRY Schmid ([id number])[facility] ([facility])[address] [place] [address] 73943 Chloride (BldV) [Moles/Vol] Normal [facility] Comment on above: Result Comment: NO R ESULT Performed By: #### 2 4339-4 ####GARRY Schmid ([id number])[facility] ([facility])[address] [place] [address]861 CO2 (BldV) [Partial pressure] 45 mm Hg Normal 41-51 [facility] Comment on above: Performed By: #### 2 4339-4 ####GARRY Schmid ([id number])[facility] ([facility])[address] [place] [address] 04619 Glucose [Mass/Vol] 183 mg/dL High 74-99 [facility] Comment on above: Performed By: #### 2 4339-4 ####GARRY Schmid ([id number])[facility] ([facility])[address] [place] [address] 61840 HCO3 (Bld) [Moles/Vol] 31.3 mmol/L High 22.0-26.0 [facility] Comment on above: Performed By: #### 2 4339-4 ####GARRY Schmid ([id number])[facility] ([facility])[address] [place] [address] Hematocrit Est (Bld) [Volume fraction] 24.0 % Low 36.0-46.0 [facility] Comment on above: Performed By: #### 2 4339-4 ####GARRY Schmid ([id number])[facility] ([facility])[address] [place] [address] Hemoglobin (Bld) [Mass/Vol] 8.0 g/dL Low 12.0-16.0 [facility] Comment on above: Performed By: #### 2 4339-4 ####GARRY Schmid ([id number])[facility] ([facility])[address] [place] [address] 75389 Inhaled oxygen concentration 21 % Normal [facility] Comment on above: Performed By: #### 2 4339-4 ####GARRY Schmid ([id number])[facility] ([facility])[address] [place] [address] 56733 Lactate (BldV) [Moles/Vol] 1.2 mmol/L Normal 0.4-2.0 [facility] Comment on above: Result Comment: NO R ESULT Performed By: #### 2 4339-4 ####GARRY Schmid ([id number])[facility] ([facility])[address] [place] [address] Oxygen (BldV) [Partial pressure] 52 mm Hg High 35-45 [facility] Comment on above: Performed By: #### 2 4339-4 ####GARRY Schmid ([id number])[facility] ([facility])[address] [place] [address] 60955 Oxygen saturation in Venous blood 89 % High 45-75 [facility] Comment on above: Performed By: #### 2 4339-4 ####GARRY Schmid ([id number])[facility] ([facility])[address] [place] [address] Oxyhemoglobin (BldV) [Mass fraction] 87.2 % High 45.0-75.0 [facility] Comment on above: Performed By: #### 2 4339-4 ####GARRY Schmid ([id number])[facility] ([facility])[address] [place] [address] 73027 pH (BldV) 7.45 [pH] High 7.33-7.43 [facility] Comment on above: Performed By: #### 2 4339-4 ####GARRY Schmid ([id number])[facility] ([facility])[address] [place] [address] 29208 Potassium (BldV) [Moles/Vol] 3.7 mmol/L Normal 3.5-5.3 [facility] Comment on above: Performed By: #### 2 4339-4 ####GARRY Schmid ([id number])[facility] ([facility])[address] [place] [address] 67906 Sodium (BldV) [Moles/Vol] 131 mmol/L Low 136-145 [facility] Comment on above: Performed By: #### 2 4339-4 ####GARRY Schmid ([id number])[facility] ([facility])[address] [place] [address] 17284 Anion gap 4 (BldV) [Moles/Vol] [facility] Base excess Calc (BldV) [Moles/Vol] 6.6 mmol/L High -2.0 - 3.0 mmol/L [facility] Calcium.ionized (BldV) [Moles/Vol] 1.12 mmol/L 1.10 - 1.33 mmol/L [facility] Chloride (BldV) [Moles/Vol] [facility] CO2 (BldV) [Partial pressure] 45 mm[Hg] [facility] Glucose [Mass/Vol] 183 mg/dL High 74 - 99 mg/dL [facility] HCO3 (Bld) [Moles/Vol] 31.3 mmol/L High 22.0 - 26.0 mmol/L [facility] Hematocrit Est (Bld) [Volume fraction] 24.0 % Low 36.0 - 46.0 % [facility] Hemoglobin (Bld) [Mass/Vol] 8.0 g/dL Low 12.0 - 16.0 g/dL [facility] Inhaled oxygen concentration 21 % [facility] Interpretation and review of laboratory results Abnormal [facility] Lactate (BldV) [Moles/Vol] 1.2 mmol/L 0.4 - 2.0 mmol/L [facility] Oxygen (BldV) [Partial pressure] 52 mm[Hg] High [facility] Oxygen saturation in Venous blood 89 % High 45 - 75 % [facility] Oxyhemoglobin (BldV) [Mass fraction] 87.2 % High 45.0 - 75.0 % [facility] pH (BldV) 7.45 [pH] High 7.33 - 7.43 pH [facility] Potassium (BldV) [Moles/Vol] 3.7 mmol/L 3.5 - 5.3 mmol/L [facility] Sodium (BldV) [Moles/Vol] 131 mmol/L Low 136 - 145 mmol/L [facility] Anion gap 4 (BldV) [Moles/Vol] 6.0 mmol/L Low 10.0-25.0 [facility] Comment on above: Performed By: #### 2 4339-4 ####GARRY Schmid ([id number])[facility] ([facility])[address] [place] [address] 87361 Base excess Calc (BldV) [Moles/Vol] 7.1 mmol/L High -2.0-3.0 [facility] Comment on above: Performed By: #### 2 4339-4 ####GARRY Schmid ([id number])[facility] ([facility])[address] [place] [address] 19145 Calcium.ionized (BldV) [Moles/Vol] 1.22 mmol/L Normal 1.10-1.33 [facility] Comment on above: Performed By: #### 2 4339-4 ####GARRY Schmid ([id number])[facility] ([facility])[address] [place] [address] Chloride (BldV) [Moles/Vol] 97 mmol/L Low 98-107 [facility] Comment on above: Performed By: #### 2 4339-4 ####GARRY Schmid ([id number])[facility] ([facility])[address] [place] [address] CO2 (BldV) [Partial pressure] 53 mm Hg High 41-51 [facility] Comment on above: Performed By: #### 2 4339-4 ####GARRY Schmid ([id number])[facility] ([facility])[address] [place] [address] 05196 Glucose [Mass/Vol] 262 mg/dL High 74-99 [facility] Comment on above: Performed By: #### 2 4339-4 ####GARRY Schmid ([id number])[facility] ([facility])[address] [place] [address] 69231 HCO3 (Bld) [Moles/Vol] 32.8 mmol/L High 22.0-26.0 [facility] Comment on above: Performed By: #### 2 4339-4 ####GARRY Schmid ([id number])[facility] ([facility])[id number] [place] [address] 28855 Hematocrit Est (Bld) [Volume fraction] 24.0 % Low 36.0-46.0 [facility] Comment on above: Performed By: #### 2 4339-4 ####GARRY Schmid ([id number])[facility] ([facility])[id number] [place] [address] 28306 Hemoglobin (Bld) [Mass/Vol] 8.1 g/dL Low 12.0-16.0 [facility] Comment on above: Performed By: #### 2 4339-4 ####GARRY Schmid ([id number])[facility] ([facility])[id number] [place] [address] 46883 Inhaled oxygen concentration 21 % Normal [facility] Comment on above: Result Comment: Room Air Performed By: #### 2 4339-4 ####GARRY Schmid ([id number])[facility] [facility])[address] [place] [address] Lactate (BldV) [Moles/Vol] 1.9 mmol/L Normal 0.4-2.0 [facility] Comment on above: Performed By: #### 2 4339-4 ####GARRY Schmid ([id number])[facility] ([facility])[address] [place] [address] 52648 Oxygen (BldV) [Partial pressure] 28 mm Hg Low 35-45 [facility] Comment on above: Performed By: #### 2 4339-4 ####GARRY Schmid ([id number])[facility] ([facility])[address] [place] [address] 86100 Oxygen saturation in Venous blood 44 % Low 45-75 [facility] Comment on above: Performed By: #### 2 4339-4 ####GARRY Schmid ([id number])[facility] ([facility])[address] [place] [address] 95938 Oxyhemoglobin (BldV) [Mass fraction] 43.6 % Low 45.0-75.0 [facility] Comment on above: Performed By: #### 2 4339-4 ####GARRY Schmid ([id number])[facility] ([facility])[address] [place] [address] pH (BldV) 7.40 [pH] Normal 7.33-7.43 [facility] Comment on above: Performed By: #### 2 4339-4 ####GARRY Schmid ([id number])[facility] ([facility])[id number] [place] [address] 10090 Potassium (BldV) [Moles/Vol] 4.1 mmol/L Normal 3.5-5.3 [facility] Comment on above: Performed By: #### 2 4339-4 ####GARRY Schmid ([id number])[facility] ([facility])[address] [place] [address] 36290 Sodium (BldV) [Moles/Vol] 132 mmol/L Low 136-145 [facility] Comment on above: Performed By: #### 2 4339-4 ####GARRY Schmid ([id number])[facility] ([facility])[address] [place] [address] Anion gap 4 (BldV) [Moles/Vol] 6.0 mmol/L Low 10.0 - 25.0 mmol/L [facility] Base excess Calc (BldV) [Moles/Vol] 7.1 mmol/L High -2.0 - 3.0 mmol/L [facility] Calcium.ionized (BldV) [Moles/Vol] 1.22 mmol/L 1.10 - 1.33 mmol/L [facility] Chloride (BldV) [Moles/Vol] 97 mmol/L Low 98 - 107 mmol/L [facility] CO2 (BldV) [Partial pressure] 53 mm[Hg] High [facility] Glucose [Mass/Vol] 262 mg/dL High 74 - 99 mg/dL [facility] HCO3 (Bld) [Moles/Vol] 32.8 mmol/L High 22.0 - 26.0 mmol/L [facility] Hematocrit Est (Bld) [Volume fraction] 24.0 % Low 36.0 - 46.0 % [facility] Hemoglobin (Bld) [Mass/Vol] 8.1 g/dL Low 12.0 - 16.0 g/dL [facility] Inhaled oxygen concentration 21 % [facility] Interpretation and review of laboratory results Abnormal [facility] Lactate (BldV) [Moles/Vol] 1.9 mmol/L 0.4 - 2.0 mmol/L [facility] Oxygen (BldV) [Partial pressure] 28 mm[Hg] Low [facility] Oxygen saturation in Venous blood 44 % Low 45 - 75 % [facility] Oxyhemoglobin (BldV) [Mass fraction] 43.6 % Low 45.0 - 75.0 % [facility] pH (BldV) 7.40 [pH] 7.33 - 7.43 pH [facility] Potassium (BldV) [Moles/Vol] 4.1 mmol/L 3.5 - 5.3 mmol/L [facility] Sodium (BldV) [Moles/Vol] 132 mmol/L Low 136 - 145 mmol/L [facility] Anion gap 4 (BldV) [Moles/Vol] 7.0 mmol/L Low 10.0-25.0 [facility] Comment on above: Performed By: #### 2 4339-4 ####GARRY Schmid ([id number])[facility] ([facility])[address] [place] [address] 54538 Base excess Calc (BldV) [Moles/Vol] 3.9 mmol/L High -2.0-3.0 [facility] Comment on above: Performed By: #### 2 4339-4 ####GARRY Schmid ([id number])[facility] ([facility])[address] [place] [address] 90331 Calcium.ionized (BldV) [Moles/Vol] 1.19 mmol/L Normal 1.10-1.33 [facility] Comment on above: Performed By: #### 2 4339-4 ####GARRY Schmid ([id number])[facility] ([facility])[address] [place] [address] 39646 Chloride (BldV) [Moles/Vol] 95 mmol/L Low 98-107 [facility] Comment on above: Performed By: #### 2 4339-4 ####GARRY Schmid ([id number])[facility] ([facility])[address] [place] [address] 16796 CO2 (BldV) [Partial pressure] 50 mm Hg Normal 41-51 [facility] Comment on above: Performed By: #### 2 4339-4 ####GARRY Schmid ([id number])[facility] ([facility])[address] [place] [address] 00540 Glucose [Mass/Vol] 352 mg/dL High 74-99 [facility] Comment on above: Performed By: #### 2 4339-4 ####GARRY Schmid ([id number])[facility] ([facility])[id number] [place] [address] 76360 HCO3 (Bld) [Moles/Vol] 29.6 mmol/L High 22.0-26.0 [facility] Comment on above: Performed By: #### 2 4339-4 ####GARRY Schmid ([id number])[facility] ([facility])[address] [place] [address] 95828 Hematocrit Est (Bld) [Volume fraction] 24.0 % Low 36.0-46.0 [facility] Comment on above: Performed By: #### 2 4339-4 ####GARRY Schmid ([id number])[facility] ([facility])[address] [place] [address] 51931 Hemoglobin (Bld) [Mass/Vol] 8.1 g/dL Low 12.0-16.0 [facility] Comment on above: Performed By: #### 2 4339-4 ####GARRY Schmid ([id number])[facility] ([facility])[address] [place] [address] 48312 Inhaled oxygen concentration 21 % Normal [facility] Comment on above: Result Comment: Room Air Performed By: #### 2 4339-4 ####GARRY Schmid ([id number])[facility] ([facility])[address] [place] [address] 62312 Lactate (BldV) [Moles/Vol] 1.2 mmol/L Normal 0.4-2.0 [facility] Comment on above: Performed By: #### 2 4339-4 ####GARRY Schmid ([id number])[facility] ([facility])[address] [place] [address] 85217 Oxygen (BldV) [Partial pressure] 36 mm Hg Normal 35-45 [facility] Comment on above: Performed By: #### 2 4339-4 ####GARRY Schmid ([id number])[facility] ([facility])[address] [place] [address] 31783 Oxygen saturation in Venous blood 61 % Normal 45-75 [facility] Comment on above: Performed By: #### 2 4339-4 ####GARRY Schmid ([id number])[facility] ([facility])[address] [place] [address] 20760 Oxyhemoglobin (BldV) [Mass fraction] 60.4 % Normal 45.0-75.0 [facility] Comment on above: Performed By: #### 2 4339-4 ####GARRY Schmid ([id number])[facility] ([facility])[address] [place] [address] 03118 pH (BldV) 7.38 [pH] Normal 7.33-7.43 [facility] Comment on above: Performed By: #### 2 4339-4 ####GARRY Schmid ([id number])[facility] ([facility])[address] [place] [address] 56696 Potassium (BldV) [Moles/Vol] 4.7 mmol/L Normal 3.5-5.3 [facility] Comment on above: Performed By: #### 2 4339-4 ####GARRY Schmid ([id number])[facility] ([facility])[address] [place] [address] 57796 Sodium (BldV) [Moles/Vol] 127 mmol/L Low 136-145 [facility] Comment on above: Performed By: #### 2 4339-4 ####GARRY Schmid ([id number])[facility] ([facility])[address] [place] [address] 45875 Anion gap 4 (BldV) [Moles/Vol] 7.0 mmol/L Low 10.0-25.0 [facility] Comment on above: Performed By: #### 2 4339-4 ####GARRY Schmid ([id number])[facility] ([facility])[address] [place] [address] 33267 Base excess Calc (BldV) [Moles/Vol] 4.9 mmol/L High -2.0-3.0 [facility] Comment on above: Performed By: #### 2 4339-4 ####GARRY PEREZ L (61421)[facility] ([facility])[address] [place] [address] Calcium.ionized (BldV) [Moles/Vol] 1.18 mmol/L Normal 1.10-1.33 [facility] Comment on above: Performed By: #### 2 4339-4 ####GARRY PEREZ L ([id number])[facility] ([facility])[address] [place] [address] 98178 Chloride (BldV) [Moles/Vol] 96 mmol/L Low 98-107 [facility] Comment on above: Performed By: #### 2 4339-4 ####GARRY Schmid ([id number])[facility] ([facility])[address] [place] [address] 65879 CO2 (BldV) [Partial pressure] 49 mm Hg Normal 41-51 [facility] Comment on above: Performed By: #### 2 4339-4 ####GARRY PEREZ L ([id number])[facility] ([facility])[address] [place] [address] 33103 Glucose [Mass/Vol] 234 mg/dL High 74-99 [facility] Comment on above: Performed By: #### 2 4339-4 ####GARRY PEREZ L ([id number])[facility] ([facility])[address] [place] [address] 64119 HCO3 (Bld) [Moles/Vol] 30.4 mmol/L High 22.0-26.0 [facility] Comment on above: Performed By: #### 2 4339-4 ####GARRY PEREZ L ([id number])[facility] ([facility])[address] [place] [address] 83248 Hematocrit Est (Bld) [Volume fraction] 25.0 % Low 36.0-46.0 [facility] Comment on above: Performed By: #### 2 4339-4 ####GARRY Schmid ([id number])[facility] ([facility])[address] [place] [address] Hemoglobin (Bld) [Mass/Vol] 8.3 g/dL Low 12.0-16.0 [facility] Comment on above: Performed By: #### 2 4339-4 ####GARRY Schmid ([id number])[facility] ([facility])[address] [place] [address] Inhaled oxygen concentration 21 % Normal [facility] Comment on above: Result Comment: Room Air Performed By: #### 2 4339-4 ####GARRY Schmid ([id number])[facility] ([facility])[address] [place] [address] Lactate (BldV) [Moles/Vol] 1.0 mmol/L Normal 0.4-2.0 [facility] Comment on above: Performed By: #### 2 4339-4 ####GARRY Schmid ([id number])[facility] ([facility])[address] [place] [address] Oxygen (BldV) [Partial pressure] 39 mm Hg Normal 35-45 [facility] Comment on above: Performed By: #### 2 4339-4 ####GARRY Schmid ([id number])[facility] ([facility])[address] [place] [address] Oxygen saturation in Venous blood 64 % Normal 45-75 [facility] Comment on above: Performed By: #### 2 4339-4 ####GARRY Schmid ([id number])[facility] ([facility])[address] [place] [address] Oxyhemoglobin (BldV) [Mass fraction] 62.9 % Normal 45.0-75.0 [facility] Comment on above: Performed By: #### 2 4339-4 ####GARRY Schmid (19957)[facility] ([facility])[address]158 [place] [address] pH (BldV) 7.40 [pH] Normal 7.33-7.43 [facility] Comment on above: Performed By: #### 2 4339-4 ####GARRY Schmid ([id number])[facility] ([facility])[address] [place] [address] Potassium (BldV) [Moles/Vol] 4.5 mmol/L Normal 3.5-5.3 [facility] Comment on above: Performed By: #### 2 4339-4 ####GARRY Schmid ([id number])[facility] ([facility])[address] [place] [address] Sodium (BldV) [Moles/Vol] 129 mmol/L Low 136-145 [facility] Comment on above: Performed By: #### 2 4339-4 ####GARRY Schmid (69886)[facility] ([facility])[address] [place] [address] Anion gap 4 (BldV) [Moles/Vol] 7.0 mmol/L Low 10.0 - 25.0 mmol/L [facility] Base excess Calc (BldV) [Moles/Vol] 3.9 mmol/L High -2.0 - 3.0 mmol/L [facility] Calcium.ionized (BldV) [Moles/Vol] 1.19 mmol/L 1.10 - 1.33 mmol/L [facility] Chloride (BldV) [Moles/Vol] 95 mmol/L Low 98 - 107 mmol/L [facility] CO2 (BldV) [Partial pressure] 50 mm[Hg] [facility] Glucose [Mass/Vol] 352 mg/dL High 74 - 99 mg/dL [facility] HCO3 (Bld) [Moles/Vol] 29.6 mmol/L High 22.0 - 26.0 mmol/L [facility] Hematocrit Est (Bld) [Volume fraction] 24.0 % Low 36.0 - 46.0 % [facility] Hemoglobin (Bld) [Mass/Vol] 8.1 g/dL Low 12.0 - 16.0 g/dL [facility] Inhaled oxygen concentration 21 % [facility] Interpretation and review of laboratory results Abnormal [facility] Lactate (BldV) [Moles/Vol] 1.2 mmol/L 0.4 - 2.0 mmol/L [facility] Oxygen (BldV) [Partial pressure] 36 mm[Hg] [facility] Oxygen saturation in Venous blood 61 % 45 - 75 % [facility] Oxyhemoglobin (BldV) [Mass fraction] 60.4 % 45.0 - 75.0 % [facility] pH (BldV) 7.38 [pH] 7.33 - 7.43 pH [facility] Potassium (BldV) [Moles/Vol] 4.7 mmol/L 3.5 - 5.3 mmol/L [facility] Sodium (BldV) [Moles/Vol] 127 mmol/L Low 136 - 145 mmol/L [facility] Anion gap 4 (BldV) [Moles/Vol] 5.0 mmol/L Low 10.0-25.0 [facility] Comment on above: Performed By: #### 2 4339-4 ####GARRY Schmid ([id number])[facility] ([facility])[address] [place] [address] 01624 Base excess Calc (BldV) [Moles/Vol] 7.3 mmol/L High -2.0-3.0 [facility] Comment on above: Performed By: #### 2 4339-4 ####GARRY Schmid ([id number])[facility] ([facility])[address] [place] [address] 48227 Calcium.ionized (BldV) [Moles/Vol] 1.23 mmol/L Normal 1.10-1.33 [facility] Comment on above: Performed By: #### 2 4339-4 ####GARRY Schmid ([id number])[facility] ([facility])[address] [place] [address] 10978 Chloride (BldV) [Moles/Vol] 98 mmol/L Normal 98-107 [facility] Comment on above: Performed By: #### 2 4339-4 ####GARRY Schmid ([id number])[facility] ([facility])[address] [place] [address] 05925 CO2 (BldV) [Partial pressure] 52 mm Hg High 41-51 [facility] Comment on above: Performed By: #### 2 4339-4 ####GARRY Schmid ([id number])[facility] ([facility])[address]404 [place] [address] Glucose [Mass/Vol] 101 mg/dL High 74-99 [facility] Comment on above: Performed By: #### 2 4339-4 ####GARRY Schmid ([id number])[facility] ([facility])[address] [place] [address] HCO3 (Bld) [Moles/Vol] 33.0 mmol/L High 22.0-26.0 [facility] Comment on above: Performed By: #### 2 4339-4 ####GARRY Schmid (06946)[facility] ([facility])[address] [place] [address] Hematocrit Est (Bld) [Volume fraction] 28.0 % Low 36.0-46.0 [facility] Comment on above: Performed By: #### 2 4339-4 ####GARRY Schmid (57956)[facility] ([facility])[address]682 [place] [address] Hemoglobin (Bld) [Mass/Vol] 9.3 g/dL Low 12.0-16.0 [facility] Comment on above: Performed By: #### 2 4339-4 ####GARRY Schmid ([id number])[facility] ([facility])[address] [place] [address] Inhaled oxygen concentration 21 % Normal [facility] Comment on above: Result Comment: Room Air Performed By: #### 2 4339-4 ####GARRY Schmid ([id number])[facility] ([facility])[address]45 [place] [address] Lactate (BldV) [Moles/Vol] 1.4 mmol/L Normal 0.4-2.0 [facility] Comment on above: Performed By: #### 2 4339-4 ####GARRY Schmid ([id number])[facility] ([facility])[address] [place] [address] 85911 Oxygen (BldV) [Partial pressure] 29 mm Hg Low 35-45 [facility] Comment on above: Performed By: #### 2 4339-4 ####GARRY Schmid ([id number])[facility] ([facility])[address] [place] [address] 82173 Oxygen saturation in Venous blood 45 % Normal 45-75 [facility] Comment on above: Performed By: #### 2 4339-4 ####GARRY Schmid ([id number])[facility] ([facility])[address] [place] [address] 47834 Oxyhemoglobin (BldV) [Mass fraction] 44.5 % Low 45.0-75.0 [facility] Comment on above: Performed By: #### 2 4339-4 ####GARRY Schmid ([id number])[facility] ([facility])[address] [place] [address] 03417 pH (BldV) 7.41 [pH] Normal 7.33-7.43 [facility] Comment on above: Performed By: #### 2 4339-4 ####GARRY Schmid ([id number])[facility] ([facility])[address] [place] [address] 98136 Potassium (BldV) [Moles/Vol] 3.6 mmol/L Normal 3.5-5.3 [facility] Comment on above: Performed By: #### 2 4339-4 ####GARRY Schmid ([id number])[facility] ([facility])[address] [place] [address] 96060 Sodium (BldV) [Moles/Vol] 132 mmol/L Low 136-145 [facility] Comment on above: Performed By: #### 2 4339-4 ####GARRY Schmid ([id number])[facility] ([facility])[address] [place] [address] 82549 Anion gap 4 (BldV) [Moles/Vol] 7.0 mmol/L Low 10.0 - 25.0 mmol/L [facility] Base excess Calc (BldV) [Moles/Vol] 4.9 mmol/L High -2.0 - 3.0 mmol/L [facility] Calcium.ionized (BldV) [Moles/Vol] 1.18 mmol/L 1.10 - 1.33 mmol/L [facility] Chloride (BldV) [Moles/Vol] 96 mmol/L Low 98 - 107 mmol/L [facility] CO2 (BldV) [Partial pressure] 49 mm[Hg] [facility] Glucose [Mass/Vol] 234 mg/dL High 74 - 99 mg/dL [facility] HCO3 (Bld) [Moles/Vol] 30.4 mmol/L High 22.0 - 26.0 mmol/L [facility] Hematocrit Est (Bld) [Volume fraction] 25.0 % Low 36.0 - 46.0 % [facility] Hemoglobin (Bld) [Mass/Vol] 8.3 g/dL Low 12.0 - 16.0 g/dL [facility] Inhaled oxygen concentration 21 % [facility] Interpretation and review of laboratory results Abnormal [facility] Lactate (BldV) [Moles/Vol] 1.0 mmol/L 0.4 - 2.0 mmol/L [facility] Oxygen (BldV) [Partial pressure] 39 mm[Hg] [facility] Oxygen saturation in Venous blood 64 % 45 - 75 % [facility] Oxyhemoglobin (BldV) [Mass fraction] 62.9 % 45.0 - 75.0 % [facility] pH (BldV) 7.40 [pH] 7.33 - 7.43 pH [facility] Potassium (BldV) [Moles/Vol] 4.5 mmol/L 3.5 - 5.3 mmol/L [facility] Sodium (BldV) [Moles/Vol] 129 mmol/L Low 136 - 145 mmol/L [facility] Anion gap 4 (BldV) [Moles/Vol] 5.0 mmol/L Low 10.0 - 25.0 mmol/L [facility] Base excess Calc (BldV) [Moles/Vol] 7.3 mmol/L High -2.0 - 3.0 mmol/L [facility] Calcium.ionized (BldV) [Moles/Vol] 1.23 mmol/L 1.10 - 1.33 mmol/L [facility] Chloride (BldV) [Moles/Vol] 98 mmol/L 98 - 107 mmol/L [facility] CO2 (BldV) [Partial pressure] 52 mm[Hg] High [facility] Glucose [Mass/Vol] 101 mg/dL High 74 - 99 mg/dL [facility] HCO3 (Bld) [Moles/Vol] 33.0 mmol/L High 22.0 - 26.0 mmol/L [facility] Hematocrit Est (Bld) [Volume fraction] 28.0 % Low 36.0 - 46.0 % [facility] Hemoglobin (Bld) [Mass/Vol] 9.3 g/dL Low 12.0 - 16.0 g/dL [facility] Inhaled oxygen concentration 21 % [facility] Interpretation and review of laboratory results Abnormal [facility] Lactate (BldV) [Moles/Vol] 1.4 mmol/L 0.4 - 2.0 mmol/L [facility] Oxygen (BldV) [Partial pressure] 29 mm[Hg] Low [facility] Oxygen saturation in Venous blood 45 % 45 - 75 % [facility] Oxyhemoglobin (BldV) [Mass fraction] 44.5 % Low 45.0 - 75.0 % [facility] pH (BldV) 7.41 [pH] 7.33 - 7.43 pH [facility] Potassium (BldV) [Moles/Vol] 3.6 mmol/L 3.5 - 5.3 mmol/L [facility] Sodium (BldV) [Moles/Vol] 132 mmol/L Low 136 - 145 mmol/L [facility] Anion gap 4 (BldV) [Moles/Vol] 6.0 mmol/L Low 10.0-25.0 [facility] Comment on above: Performed By: #### 2 4339-4 ####GARRY Schmid ([id number])[facility] ([facility])[address] [place] [address] Base excess Calc (BldV) [Moles/Vol] 8.4 mmol/L High -2.0-3.0 [facility] Comment on above: Performed By: #### 2 4339-4 ####GARRY Schmid ([id number])[facility] ([facility])[address]76 [place] [address] Calcium.ionized (BldV) [Moles/Vol] 1.29 mmol/L Normal 1.10-1.33 [facility] Comment on above: Performed By: #### 2 4339-4 ####GARRY Schmid ([id number])[facility] ([facility])[address] [place] [address] Chloride (BldV) [Moles/Vol] 98 mmol/L Normal 98-107 [facility] Comment on above: Performed By: #### 2 4339-4 ####GARRY Schmid ([id number])[facility] ([facility])[address] [place] [address] CO2 (BldV) [Partial pressure] 54 mm Hg High 41-51 [facility] Comment on above: Performed By: #### 2 4339-4 ####GARRY Schmid ([id number])[facility] ([facility])[address] [place] [address] Glucose [Mass/Vol] 131 mg/dL High 74-99 [facility] Comment on above: Performed By: #### 2 4339-4 ####GARRY Schmid ([id number])[facility] ([facility])[address] [place] [address] HCO3 (Bld) [Moles/Vol] 34.2 mmol/L High 22.0-26.0 [facility] Comment on above: Performed By: #### 2 4339-4 ####GARRY Schmid ([id number])[facility] ([facility])[address] [place] [address] Hematocrit Est (Bld) [Volume fraction] 26.0 % Low 36.0-46.0 [facility] Comment on above: Performed By: #### 2 4339-4 ####GARRY Schmid ([id number])[facility] ([facility])[id number] [place] [address] Hemoglobin (Bld) [Mass/Vol] 8.6 g/dL Low 12.0-16.0 [facility] Comment on above: Performed By: #### 2 4339-4 ####GARRY Schmid ([id number])[facility] ([facility])[id number] [place] [address] Inhaled oxygen concentration 21 % Normal [facility] Comment on above: Result Comment: Room Air Performed By: #### 2 4339-4 ####GARRY Schmid ([id number])[facility] ([facility])[address] [place] [id number] Lactate (BldV) [Moles/Vol] 3.3 mmol/L High 0.4-2.0 [facility] Comment on above: Performed By: #### 2 4339-4 ####GARRY Schmid ([id number])[facility] ([facility])[id number] [place] [address] Oxygen (BldV) [Partial pressure] 28 mm Hg Low 35-45 [facility] Comment on above: Performed By: #### 2 4339-4 ####GARRY Schmid ([id number])[facility] ([facility])[id number] [place] [address] Oxygen saturation in Venous blood 41 % Low 45-75 [facility] Comment on above: Performed By: #### 2 4339-4 ####GARRY Schmid ([id number])[facility] ([facility])[address] [place] [address] 80569 Oxyhemoglobin (BldV) [Mass fraction] 40.8 % Low 45.0-75.0 [facility] Comment on above: Performed By: #### 2 4339-4 ####GARRY Schmid ([id number])[facility] ([facility])[address] [place] [address] pH (BldV) 7.41 [pH] Normal 7.33-7.43 [facility] Comment on above: Performed By: #### 2 4339-4 ####GARRY Schmid ([id number])[facility] ([facility])[address] [place] [address] Potassium (BldV) [Moles/Vol] 3.9 mmol/L Normal 3.5-5.3 [facility] Comment on above: Performed By: #### 2 4339-4 ####GARRY Schmid ([id number])[facility] ([facility])[address] [place] [address] Sodium (BldV) [Moles/Vol] 134 mmol/L Low 136-145 [facility] Comment on above: Performed By: #### 2 4339-4 ####GARRY Schmid ([id number])[facility] ([facility])[address] [place] [address] Anion gap 4 (BldV) [Moles/Vol] 6.0 mmol/L Low 10.0 - 25.0 mmol/L [facility] Base excess Calc (BldV) [Moles/Vol] 8.4 mmol/L High -2.0 - 3.0 mmol/L [facility] Calcium.ionized (BldV) [Moles/Vol] 1.29 mmol/L 1.10 - 1.33 mmol/L [facility] Chloride (BldV) [Moles/Vol] 98 mmol/L 98 - 107 mmol/L [facility] CO2 (BldV) [Partial pressure] 54 mm[Hg] High [facility] Glucose [Mass/Vol] 131 mg/dL High 74 - 99 mg/dL [facility] HCO3 (Bld) [Moles/Vol] 34.2 mmol/L High 22.0 - 26.0 mmol/L [facility] Hematocrit Est (Bld) [Volume fraction] 26.0 % Low 36.0 - 46.0 % [facility] Hemoglobin (Bld) [Mass/Vol] 8.6 g/dL Low 12.0 - 16.0 g/dL [facility] Inhaled oxygen concentration 21 % [facility] Interpretation and review of laboratory results Abnormal [facility] Lactate (BldV) [Moles/Vol] 3.3 mmol/L High 0.4 - 2.0 mmol/L [facility] Oxygen (BldV) [Partial pressure] 28 mm[Hg] Low [facility] Oxygen saturation in Venous blood 41 % Low 45 - 75 % [facility] Oxyhemoglobin (BldV) [Mass fraction] 40.8 % Low 45.0 - 75.0 % [facility] pH (BldV) 7.41 [pH] 7.33 - 7.43 pH [facility] Potassium (BldV) [Moles/Vol] 3.9 mmol/L 3.5 - 5.3 mmol/L [facility] Sodium (BldV) [Moles/Vol] 134 mmol/L Low 136 - 145 mmol/L [facility] Anion gap 4 (BldV) [Moles/Vol] 13.0 mmol/L Normal 10.0-25.0 [facility] Comment on above: Performed By: #### 2 4339-4 ####GRARY Schmid ([id number])[facility] ([facility])[address] [place] [address]22 Base excess Calc (BldV) [Moles/Vol] 4.0 mmol/L High -2.0-3.0 [facility] Comment on above: Performed By: #### 2 4339-4 ####GARRY Schmid ([id number])[facility] ([facility])[address] [place] [address] 24667 Calcium.ionized (BldV) [Moles/Vol] 1.31 mmol/L Normal 1.10-1.33 [facility] Comment on above: Performed By: #### 2 4339-4 ####GARRY Schmid ([id number])[facility] ([facility])[id number] [place] [address] 14656 Chloride (BldV) [Moles/Vol] 91 mmol/L Low 98-107 [facility] Comment on above: Performed By: #### 2 4339-4 ####GARRY Schmid ([id number])[facility] ([facility])[address] [place] [address] 88185 CO2 (BldV) [Partial pressure] 46 mm Hg Normal 41-51 [facility] Comment on above: Performed By: #### 2 4339-4 ####GARRY Schmid ([id number])[facility] ([facility])[address] [place] [address] 61364 Glucose [Mass/Vol] 629 mg/dL Critically high 74-99 [facility] Comment on above: Performed By: #### 2 4339-4 ####GARRY Schmid ([id number])[facility] ([facility])[address] [place] [address] 67572 HCO3 (Bld) [Moles/Vol] 29.2 mmol/L High 22.0-26.0 [facility] Comment on above: Performed By: #### 2 4339-4 ####GARRY Schmid ([id number])[facility] ([facility])[address] [place] [address] 10929 Hematocrit Est (Bld) [Volume fraction] 28.0 % Low 36.0-46.0 [facility] Comment on above: Performed By: #### 2 4339-4 ####GARRY Schmid ([id number])[facility] ([facility])[address] [place] [address] 13899 Hemoglobin (Bld) [Mass/Vol] 9.3 g/dL Low 12.0-16.0 [facility] Comment on above: Performed By: #### 2 4339-4 ####GARRY Schmid ([id number])[facility] ([facility])[address] [place] [address] 19415 Inhaled oxygen concentration 21 % Normal [facility] Comment on above: Performed By: #### 2 4339-4 ####GARRY Schmid ([id number])[facility] ([facility])[address] [place] [address] Oxygen (BldV) [Partial pressure] 54 mm Hg High 35-45 [facility] Comment on above: Performed By: #### 2 4339-4 ####GARRY Schmid ([id number])[facility] ([facility])[address] [place] [address] Oxygen saturation in Venous blood 86 % High 45-75 [facility] Comment on above: Performed By: #### 2 4339-4 ####GARRY Schmid ([id number])[facility] ([facility])[address] [place] [address] 41352 Oxyhemoglobin (BldV) [Mass fraction] 84.6 % High 45.0-75.0 [facility] Comment on above: Performed By: #### 2 4339-4 ####GARRY Schmid ([id number])[facility] ([facility])[address] [place] [address] 16914 pH (BldV) 7.41 [pH] Normal 7.33-7.43 [facility] Comment on above: Performed By: #### 2 4339-4 ####GARRY Schmid ([id number])[facility] ([facility])[address] [place] [address] 61955 Potassium (BldV) [Moles/Vol] 4.1 mmol/L Normal 3.5-5.3 [facility] Comment on above: Performed By: #### 2 4339-4 ####GARRY Schmid ([id number])[facility] ([facility])[address] [place] [address] 98361 Sodium (BldV) [Moles/Vol] 129 mmol/L Low 136-145 [facility] Comment on above: Performed By: #### 2 4339-4 ####GARRY Schmid ([id number])[facility] ([facility])[address] [place] [address] 25234 Anion gap 4 (BldV) [Moles/Vol] 20.0 mmol/L Normal 10.0-25.0 [facility] Comment on above: Performed By: #### 2 4339-4 ####GARRY Schmid ([id number])[facility] ([facility])[address] [place] [address] Base excess Calc (BldV) [Moles/Vol] -1.4000 mmol/L Normal -2.0-3.0 [facility] Comment on above: Performed By: #### 2 4339-4 ####GARRY Schmid ([id number])[facility] ([facility])[address] [place] [address] Calcium.ionized (BldV) [Moles/Vol] 1.30 mmol/L Normal 1.10-1.33 [facility] Comment on above: Performed By: #### 2 4339-4 ####GARRY Schmid ([id number])[facility] ([facility])[address] [place] [address] 48133 Chloride (BldV) [Moles/Vol] 87 mmol/L Low 98-107 [facility] Comment on above: Performed By: #### 2 4339-4 ####GARRY Schmid ([id number])[facility] ([facility])[address] [place] [address] 28528 CO2 (BldV) [Partial pressure] 44 mm Hg Normal 41-51 [facility] Comment on above: Performed By: #### 2 4339-4 ####GARRY Schmid ([id number])[facility] ([facility])[address] [place] [address] 58960 Glucose [Mass/Vol] mg/dL Critically high 74-99 [facility] Comment on above: Performed By: #### 2 4339-4 ####GARRY Schmid ([id number])[facility] ([facility])[address] [place] [address] 03495 HCO3 (Bld) [Moles/Vol] 24.3 mmol/L Normal 22.0-26.0 [facility] Comment on above: Performed By: #### 2 4339-4 ####GARRY Schmid ([id number])[facility] ([facility])[address] [place] [address] Hematocrit Est (Bld) [Volume fraction] 29.0 % Low 36.0-46.0 [facility] Comment on above: Performed By: #### 2 4339-4 ####GARRY Schmid ([id number])[facility] ([facility])[address] [place] [address] Hemoglobin (Bld) [Mass/Vol] 9.8 g/dL Low 12.0-16.0 [facility] Comment on above: Performed By: #### 2 4339-4 ####GARRY Schmid ([id number])[facility] ([facility])[address] [place] [address] 32374 Inhaled oxygen concentration 21 % Normal [facility] Comment on above: Performed By: #### 2 4339-4 ####GARRY Schmid ([id number])[facility] ([facility])[address] [place] [address] 80161 Lactate (BldV) [Moles/Vol] 4.7 mmol/L Critically high 0.4-2.0 [facility] Comment on above: Result Comment: Prev ious result verified on 11/01/2023 0129 on specimen/case [id number] called with component POCT LACTATE, Venous for procedure Blood Gas Venous Full Panel with value 4.9 mmol/L. Performed By: #### 2 4339-4 ####GARRY Schmid ([id number])[facility] ([facility])[address] [place] [address] 12354 Oxygen (BldV) [Partial pressure] 44 mm Hg Normal 35-45 [facility] Comment on above: Performed By: #### 2 4339-4 ####GARRY Schmid ([id number])[facility] ([facility])[address] [place] [address] Oxygen saturation in Venous blood 71 % Normal 45-75 [facility] Comment on above: Performed By: #### 2 4339-4 ####GARRY Schmid ([id number])[facility] ([facility])[address] [place] [address] 83244 Oxyhemoglobin (BldV) [Mass fraction] 69.4 % Normal 45.0-75.0 [facility] Comment on above: Performed By: #### 2 4339-4 ####GARRY Schmid ([id number])[facility] ([facility])[address] [place] [address] 47074 pH (BldV) 7.35 [pH] Normal 7.33-7.43 [facility] Comment on above: Performed By: #### 2 4339-4 ####GARRY Schmid ([id number])[facility] ([facility])[address] [place] [address] 66571 Potassium (BldV) [Moles/Vol] 4.3 mmol/L Normal 3.5-5.3 [facility] Comment on above: Performed By: #### 2 4339-4 ####GARRY Schmid ([id number])[facility] ([facility])[address] [place] [address] 88665 Sodium (BldV) [Moles/Vol] 127 mmol/L Low 136-145 [facility] Comment on above: Performed By: #### 2 4339-4 ####GARRY Schmid ([id number])[facility] ([facility])[address] [place] [address] 78674 Anion gap 4 (BldV) [Moles/Vol] 13.0 mmol/L 10.0 - 25.0 mmol/L [facility] Base excess Calc (BldV) [Moles/Vol] 4.0 mmol/L High -2.0 - 3.0 mmol/L [facility] Calcium.ionized (BldV) [Moles/Vol] 1.31 mmol/L 1.10 - 1.33 mmol/L [facility] Chloride (BldV) [Moles/Vol] 91 mmol/L Low 98 - 107 mmol/L [facility] CO2 (BldV) [Partial pressure] 46 mm[Hg] [facility] Glucose [Mass/Vol] 629 mg/dL Critically high 74 - 9 9 mg/dL [facility] HCO3 (Bld) [Moles/Vol] 29.2 mmol/L High 22.0 - 26.0 mmol/L [facility] Hematocrit Est (Bld) [Volume fraction] 28.0 % Low 36.0 - 46.0 % [facility] Hemoglobin (Bld) [Mass/Vol] 9.3 g/dL Low 12.0 - 16.0 g/dL [facility] Inhaled oxygen concentration 21 % [facility] Oxygen (BldV) [Partial pressure] 54 mm[Hg] High [facility] Oxygen saturation in Venous blood 86 % High 45 - 75 % [facility] Oxyhemoglobin (BldV) [Mass fraction] 84.6 % High 45.0 - 75.0 % [facility] pH (BldV) 7.41 [pH] 7.33 - 7.43 pH [facility] Potassium (BldV) [Moles/Vol] 4.1 mmol/L 3.5 - 5.3 mmol/L [facility] Sodium (BldV) [Moles/Vol] 129 mmol/L Low 136 - 145 mmol/L [facility] Anion gap 4 (BldV) [Moles/Vol] 20.0 mmol/L 10.0 - 25.0 mmol/L [facility] Base excess Calc (BldV) [Moles/Vol] -1.4000 mmol/L -2.0 - 3.0 mmol/L [facility] Calcium.ionized (BldV) [Moles/Vol] 1.30 mmol/L 1.10 - 1.33 mmol/L [facility] Chloride (BldV) [Moles/Vol] 87 mmol/L Low 98 - 107 mmol/L [facility] CO2 (BldV) [Partial pressure] 44 mm[Hg] [facility] Glucose [Mass/Vol] mg/dL Critically high 74 - 9 9 mg/dL [facility] HCO3 (Bld) [Moles/Vol] 24.3 mmol/L 22.0 - 26.0 mmol/L [facility] Hematocrit Est (Bld) [Volume fraction] 29.0 % Low 36.0 - 46.0 % [facility] Hemoglobin (Bld) [Mass/Vol] 9.8 g/dL Low 12.0 - 16.0 g/dL [facility] Inhaled oxygen concentration 21 % [facility] Interpretation and review of laboratory results Abnormal [facility] Lactate (BldV) [Moles/Vol] 4.7 mmol/L Critically high 0.4 - 2.0 mmol/L [facility] Oxygen (BldV) [Partial pressure] 44 mm[Hg] [facility] Oxygen saturation in Venous blood 71 % 45 - 75 % [facility] Oxyhemoglobin (BldV) [Mass fraction] 69.4 % 45.0 - 75.0 % [facility] pH (BldV) 7.35 [pH] 7.33 - 7.43 pH [facility] Potassium (BldV) [Moles/Vol] 4.3 mmol/L 3.5 - 5.3 mmol/L [facility] Sodium (BldV) [Moles/Vol] 127 mmol/L Low 136 - 145 mmol/L [facility] Anion gap 4 (BldV) [Moles/Vol] 30.0 mmol/L High 10.0-25.0 [facility] Comment on above: Performed By: #### 2 4339-4 ####GARRY Schmid ([id number])[facility] ([facility])[address] [place] [address] 91897 Base excess Calc (BldV) [Moles/Vol] -9.7000 mmol/L Low -2.0-3.0 [facility] Comment on above: Performed By: #### 2 4339-4 ####GARRY Schmid ([id number])[facility] ([facility])[address] [place] [address] 52719 Calcium.ionized (BldV) [Moles/Vol] 1.21 mmol/L Normal 1.10-1.33 [facility] Comment on above: Performed By: #### 2 4339-4 ####GARRY Schmid ([id number])[facility] ([facility])[address] [place] [address] 09578 Chloride (BldV) [Moles/Vol] 79 mmol/L Low 98-107 [facility] Comment on above: Performed By: #### 2 4339-4 ####GARRY Schmid ([id number])[facility] ([facility])[address] [place] [address] CO2 (BldV) [Partial pressure] 37 mm Hg Low 41-51 [facility] Comment on above: Performed By: #### 2 4339-4 ####GARRY Schmid ([id number])[facility] ([facility])[address] [place] [address] Glucose [Mass/Vol] mg/dL Critically high 74-99 [facility] Comment on above: Performed By: #### 2 4339-4 ####GARRY Schmid ([id number])[facility] ([facility])[address] [place] [address] HCO3 (Bld) [Moles/Vol] 16.6 mmol/L Low 22.0-26.0 [facility] Comment on above: Performed By: #### 2 4339-4 ####GARRY Schmid ([id number])[facility] ([facility])[address] [place] [address] Hematocrit Est (Bld) [Volume fraction] 29.0 % Low 36.0-46.0 [facility] Comment on above: Performed By: #### 2 4339-4 ####GARRY Schmid ([id number])[facility] ([facility])[address] [place] [address] Hemoglobin (Bld) [Mass/Vol] 9.7 g/dL Low 12.0-16.0 [facility] Comment on above: Performed By: #### 2 4339-4 ####GARRY Schmid ([id number])[facility] ([facility])[address] [place] [address] Inhaled oxygen concentration 21 % Normal [facility] Comment on above: Performed By: #### 2 4339-4 ####GARRY Schmid ([id number])[facility] ([facility])[address] [place] [address] 01863 Lactate (BldV) [Moles/Vol] 4.9 mmol/L Critically high 0.4-2.0 [facility] Comment on above: Performed By: #### 2 4339-4 ####GARRY Schmid ([id number])[facility] ([facility])[address] [place] [address] 74505 Oxygen (BldV) [Partial pressure] 40 mm Hg Normal 35-45 [facility] Comment on above: Performed By: #### 2 4339-4 ####GARRY Schmid ([id number])[facility] ([facility])[address] [place] [address] 31444 Oxygen saturation in Venous blood 50 % Normal 45-75 [facility] Comment on above: Performed By: #### 2 4339-4 ####GARRY Schmid ([id number])[facility] ([facility])[address] [place] [address] 32725 Oxyhemoglobin (BldV) [Mass fraction] 50.1 % Normal 45.0-75.0 [facility] Comment on above: Performed By: #### 2 4339-4 ####GARRY Schmid ([id number])[facility] ([facility])[address] [place] [address] 20134 pH (BldV) 7.26 [pH] Low 7.33-7.43 [facility] Comment on above: Performed By: #### 2 4339-4 ####GARRY Schmid ([id number])[facility] ([facility])[address] [place] [address] 83294 Potassium (BldV) [Moles/Vol] 6.7 mmol/L Critically high 3.5-5.3 [facility] Comment on above: Performed By: #### 2 4339-4 ####GARRY Schmid ([id number])[facility] ([facility])[address] [place] [address] 07061 Sodium (BldV) [Moles/Vol] 119 mmol/L Critically low 136-145 [facility] Comment on above: Performed By: #### 2 4339-4 ####GARRY Schmid ([id number])[facility] ([facility])[address] [place] [address] Anion gap 4 (BldV) [Moles/Vol] 30.0 mmol/L High 10.0 - 25.0 mmol/L [facility] Base excess Calc (BldV) [Moles/Vol] -9.7000 mmol/L Low -2.0 - 3.0 mmol/L [facility] Calcium.ionized (BldV) [Moles/Vol] 1.21 mmol/L 1.10 - 1.33 mmol/L [facility] Chloride (BldV) [Moles/Vol] 79 mmol/L Low 98 - 107 mmol/L [facility] CO2 (BldV) [Partial pressure] 37 mm[Hg] Low [facility] Glucose [Mass/Vol] mg/dL Critically high 74 - 9 9 mg/dL [facility] HCO3 (Bld) [Moles/Vol] 16.6 mmol/L Low 22.0 - 26.0 mmol/L [facility] Hematocrit Est (Bld) [Volume fraction] 29.0 % Low 36.0 - 46.0 % [facility] Hemoglobin (Bld) [Mass/Vol] 9.7 g/dL Low 12.0 - 16.0 g/dL [facility] Inhaled oxygen concentration 21 % [facility] Interpretation and review of laboratory results Abnormal [facility] Lactate (BldV) [Moles/Vol] 4.9 mmol/L Critically high 0.4 - 2.0 mmol/L [facility] Oxygen (BldV) [Partial pressure] 40 mm[Hg] [facility] Oxygen saturation in Venous blood 50 % 45 - 75 % [facility] Oxyhemoglobin (BldV) [Mass fraction] 50.1 % 45.0 - 75.0 % [facility] pH (BldV) 7.26 [pH] Low 7.33 - 7.43 pH [facility] Potassium (BldV) [Moles/Vol] 6.7 mmol/L Critically high 3.5 - 5.3 mmol/L [facility] Sodium (BldV) [Moles/Vol] 119 mmol/L Critically low 136 - 145 mmol/L [facility] Glucose Test strip manual (B ld) [Mass/Vol]on 11-01-2023 Glucose [Mass/Vol] 184 mg/dL High 74 - 99 mg/dL [facility] Interpretation and review of laboratory results Abnormal [facility] Glucose [Mass/Vol] 220 mg/dL High 74-99 [facility] Comment on above: Performed By: #### 2 341-6 ####GARRY Schmid ([id number])[facility] ([facility])[address] [place] [address] 93493 Glucose [Mass/Vol] 251 mg/dL High 74-99 [facility] Comment on above: Performed By: #### 2 341-6 ####GARRY Schmid ([id number])[facility] ([facility])[address] [place] [address] 35022 Glucose [Mass/Vol] 220 mg/dL High 74 - 99 mg/dL [facility] Interpretation and review of laboratory results Abnormal [facility] Glucose [Mass/Vol] 282 mg/dL High 74-99 [facility] Comment on above: Performed By: #### 2 341-6 ####GARRY Schmid ([id number])[facility] ([facility])[address] [place] [address] Glucose [Mass/Vol] 251 mg/dL High 74 - 99 mg/dL [facility] Interpretation and review of laboratory results Abnormal [facility] Glucose [Mass/Vol] 310 mg/dL High 74-99 [facility] Comment on above: Performed By: #### 2 341-6 ####GARRY Schmid ([id number])[facility] ([facility])[address] [place] [address] Glucose [Mass/Vol] 193 mg/dL High 74-99 [facility] Comment on above: Performed By: #### 2 341-6 ####GARRY Schmid ([id number])[facility] ([facility])[address] [place] [address] Glucose [Mass/Vol] 282 mg/dL High 74 - 99 mg/dL [facility] Interpretation and review of laboratory results Abnormal [facility] Glucose [Mass/Vol] 310 mg/dL High 74 - 99 mg/dL [facility] Interpretation and review of laboratory results Abnormal [facility] Glucose [Mass/Vol] 158 mg/dL High 74-99 [facility] Comment on above: Performed By: #### 2 341-6 ####GARRY Schmid ([id number])[facility] ([facility])[id number] [place] [address]14 Glucose [Mass/Vol] 137 mg/dL High 74-99 [facility] Comment on above: Performed By: #### 2 341-6 ####GARRY Schmid ([id number])[facility] ([facility])[address] [place] [address] Glucose [Mass/Vol] 193 mg/dL High 74 - 99 mg/dL [facility] Interpretation and review of laboratory results Abnormal [facility] Glucose [Mass/Vol] 99 mg/dL Normal 74-99 [facility] Comment on above: Performed By: #### 2 341-6 ####GARRY Schmid ([id number])[facility] ([facility])[id number] [place] [address] Glucose [Mass/Vol] 158 mg/dL High 74 - 99 mg/dL [facility] Interpretation and review of laboratory results Abnormal [facility] Glucose [Mass/Vol] 137 mg/dL High 74 - 99 mg/dL [facility] Interpretation and review of laboratory results Abnormal [facility] Glucose [Mass/Vol] 124 mg/dL High 74-99 [facility] Comment on above: Performed By: #### 2 341-6 ####GARRY Schmid ([id number])[facility] ([facility])[address] [place] [address] Glucose [Mass/Vol] 123 mg/dL High 74-99 [facility] Comment on above: Performed By: #### 2 341-6 ####GARRY Schmid ([id number])[facility] ([facility])[address] [place] [address] Glucose [Mass/Vol] 99 mg/dL 74 - 99 mg/dL [facility] Interpretation and review of laboratory results Normal [facility] Glucose [Mass/Vol] 124 mg/dL High 74 - 99 mg/dL [facility] Interpretation and review of laboratory results Abnormal [facility] Glucose [Mass/Vol] 126 mg/dL High 74-99 [facility] Comment on above: Performed By: #### 2 341-6 ####GARRY Schmid ([id number])[facility] ([facility])[address] [place] [address] Glucose [Mass/Vol] 123 mg/dL High 74 - 99 mg/dL [facility] Interpretation and review of laboratory results Abnormal [facility] Glucose [Mass/Vol] 269 mg/dL High 74-99 [facility] Comment on above: Performed By: #### 2 341-6 ####GARRY Schmid ([id number])[facility] ([facility])[address] [place] [address] Glucose [Mass/Vol] 126 mg/dL High 74 - 99 mg/dL [facility] Interpretation and review of laboratory results Abnormal [facility] Glucose [Mass/Vol] 319 mg/dL High 74-99 [facility] Comment on above: Performed By: #### 2 341-6 ####GARRY Schmid ([id number])[facility] ([facility])[address] [place] [address] Glucose [Mass/Vol] 444 mg/dL High 74-99 [facility] Comment on above: Performed By: #### 2 341-6 ####GARRY Schmid ([id number])[facility] ([facility])[address] [place] [address] Glucose [Mass/Vol] 269 mg/dL High 74 - 99 mg/dL [facility] Interpretation and review of laboratory results Abnormal [facility] Glucose [Mass/Vol] 319 mg/dL High 74 - 99 mg/dL [facility] Interpretation and review of laboratory results Abnormal [facility] Glucose [Mass/Vol] 444 mg/dL High 74 - 99 mg/dL [facility] Interpretation and review of laboratory results Abnormal [facility] Glucose [Mass/Vol] mg/dL High 74 - 99 mg/dL [facility] Interpretation and review of laboratory results Abnormal [facility] Glucose [Mass/Vol] mg/dL High 74-99 [facility] Comment on above: Performed By: #### 2 341-6 ####GARRY Schmid ([id number])[facility] ([facility])[address] [place] [address] Glucose [Mass/Vol] mg/dL High 74-99 [facility] Comment on above: Performed By: #### 2 341-6 ####GARRY Schmid ([id number])[facility] ([facility])[address] [place] [address] Glucose [Mass/Vol] mg/dL High 74-99 [facility] Comment on above: Performed By: #### 2 341-6 ####GARRY Schmid ([id number])[facility] ([facility])[address] [place] [address] Glucose [Mass/Vol] mg/dL High 74-99 [facility] Comment on above: Result Comment: RN/M D NOTIFIED Performed By: #### 2 341-6 ####GARRY Schmid ([id number])[facility] ([facility])[address] [place] [address] Glucose [Mass/Vol] mg/dL High 74 - 99 mg/dL [facility] Interpretation and review of laboratory results Abnormal [facility] Glucose [Mass/Vol] mg/dL High 74 - 99 mg/dL [facility] Interpretation and review of laboratory results Abnormal [facility] Glucose [Mass/Vol] mg/dL High 74 - 99 mg/dL [facility] Interpretation and review of laboratory results Abnormal [facility] Hepatic function 2000 panelo n 11-01-2023 Albumin BCP dye [Mass/Vol] 2.8 g/dL Low 3.4-5.0 [facility] Comment on above: Performed By: #### 2 4325-3 ####GARRY Schmid ([id number])[facility] ([facility])[address] [place] [address] ALP [Catalytic activity/Vol] 123 U/L High 33-110 [facility] Comment on above: Performed By: #### 2 7945-3 ####GARRY Schmid ([id number])[facility] ([facility])[address] [place] [address] ALT With P-5'-P [Catalytic activity/Vol] 12 U/L Normal 7-45 [facility] Comment on above: Result Comment: Gianna ents treated with Sulfasalazine may generate falsely decreased results for ALT. Performed By: #### 2 1775-3 ####GARRY Schmid ([id number])[facility] ([facility])[address] [place] [address] AST With P-5'-P [Catalytic activity/Vol] 18 U/L Normal 9-39 [facility] Comment on above: Performed By: #### 2 4325-3 ####GARRY Schmid ([id number])[facility] ([facility])[address] [place] [address] Bilirubin [Mass/Vol] 0.2 mg/dL Normal 0.0-1.2 [facility] Comment on above: Performed By: #### 2 4325-3 ####GARRY Schmid ([id number])[facility] ([facility])[address] [place] [address] Bilirubin.direct [Mass/Vol] 0.0 mg/dL Normal 0.0-0.3 [facility] Comment on above: Performed By: #### 2 4325-3 ####GARRY Schmid ([id number])[facility] ([facility])[address] [place] [address] Protein [Mass/Vol] 6.6 g/dL Normal 6.4-8.2 [facility] Comment on above: Performed By: #### 2 4325-3 ####GARRY Schmid ([id number])[facility] ([facility])[address] [place] [address] Albumin BCP dye [Mass/Vol] 2.8 g/dL Low 3.4 - 5.0 g/dL [facility] ALP [Catalytic activity/Vol] 123 U/L High 33 - 110 U/L [facility] ALT With P-5'-P [Catalytic activity/Vol] 12 U/L 7 - 45 U/L [facility] AST With P-5'-P [Catalytic activity/Vol] 18 U/L 9 - 39 U/L [facility] Bilirubin [Mass/Vol] 0.2 mg/dL 0.0 - 1 .2 mg/dL [facility] Bilirubin.direct [Mass/Vol] 0.0 mg/dL 0.0 - 0.3 mg/dL [facility] Interpretation and review of laboratory results Abnormal [facility] Protein [Mass/Vol] 6.6 g/dL 6.4 - 8.2 g/dL [facility] Laboratory - Chemistry and C hemistry - challengeon 11-01-2023 Lactate (BldV) [Moles/Vol] 3.2 mmol/L High 0.4 - 2.0 mmol/L [facility] Lactateon 11-01-2023 Lactate (BldV) [Moles/Vol] 4.0 mmol/L Critically high 0.4-2.0 [facility] Comment on above: Result Comment: Prev ious result verified on 11/01/2023 0129 on specimen/case [id number] called with component POCT LACTATE, Venous for procedure Blood Gas Venous Full Panel with value 4.9 mmol/L. Performed By: #### 2 519-7 ####GARRY Schmid ([id number])[facility] ([facility])[address] [place] [address] Lactate (BldV) [Moles/Vol]on 11-01-2023 Interpretation and review of laboratory results Abnormal [facility] Magnesiumon 11-01-2023 Magnesium [Mass/Vol] 1.66 mg/dL Normal 1.60-2.40 [facility] Comment on above: Performed By: #### 1 9123-9 ####GARRY Schmid ([id number])[facility] ([facility])[address] [place] [address] Magnesium [Mass/Vol] 1.66 mg/dL 1.60 - 2.40 mg/dL [facility] Magnesium [Mass/Vol] 1.63 mg/dL Normal 1.60-2.40 [facility] Comment on above: Performed By: #### 1 9123-9 ####GARRY Schmid ([id number])[facility] ([facility])[address] [place] [address] Magnesium [Mass/Vol] 1.63 mg/dL 1.60 - 2.40 mg/dL [facility] Magnesium [Mass/Vol] 1.73 mg/dL Normal 1.60-2.40 [facility] Comment on above: Performed By: #### 1 9123-9 ####GARRY Schmid ([id number])[facility] ([facility])[address] [place] [address] Magnesium [Mass/Vol] 1.73 mg/dL 1.60 - 2.40 mg/dL [facility] Magnesium [Mass/Vol] 2.05 mg/dL Normal 1.60-2.40 [facility] Comment on above: Performed By: #### 1 9123-9 ####GARRY Schmid ([id number])[facility] ([facility])[address] [place] [address] Magnesium [Mass/Vol] 2.05 mg/dL 1.60 - 2.40 mg/dL [facility] Magnesium [Mass/Vol] 2.11 mg/dL Normal 1.60-2.40 [facility] Comment on above: Performed By: #### 1 9123-9 ####GARRY Schmid ([id number])[facility] ([facility])[address] [place] [address] Magnesium [Mass/Vol] 2.11 mg/dL 1.60 - 2.40 mg/dL [facility] Magnesium [Mass/Vol]on 11-01 Interpretation and review of laboratory results Normal [facility] Interpretation and review of laboratory results Normal [facility] Interpretation and review of laboratory results Normal [facility] Interpretation and review of laboratory results Normal [facility] Interpretation and review of laboratory results Normal [facility] No Panel Informationon 11-01 [facility] Interpretation and review of laboratory results Abnormal [facility] Interpretation and review of laboratory results Abnormal [facility] PT and aPTT panel Coag (PPP) on 11-01-2023 aPTT Coag (PPP) [Time] 32 s Normal 27-38 [facility] Comment on above: Order Comment: The A PTT is no longer used for monitoring Unfractionated Heparin Therapy. For monitoring Heparin Therapy, use the Heparin Assay. Performed By: #### 3 4529-8 ####GARRY Schmid ([id number])[facility] ([facility])[address] [place] [address] INR Coag (PPP) [Relative time] 1.1 Normal 0.9-1.1 [facility] Comment on above: Order Comment: The A PTT is no longer used for monitoring Unfractionated Heparin Therapy. For monitoring Heparin Therapy, use the Heparin Assay. Performed By: #### 3 4529-8 ####GARRY Schmid ([id number])[facility] ([facility])[address] [place] [address] PT Coag (PPP) [Time] 12.8 s Normal 9.8-12.8 [facility] Comment on above: Order Comment: The A PTT is no longer used for monitoring Unfractionated Heparin Therapy. For monitoring Heparin Therapy, use the Heparin Assay. Performed By: #### 3 4529-8 ####GARRY Schmid ([id number])[facility] ([facility])[address] [place] [address] Phosphateon 11-01-2023 Phosphate [Mass/Vol] 5.1 mg/dL High 2.5-4.9 [facility] Comment on above: Result Comment: The performance characteristics of phosphorus testing in heparinized plasma have been validated by the individual laboratory site where testing is performed. Testing on heparinized plasma is not approved by the FDA; however, such approval is not necessary. Performed By: #### 2 777-1 ####GARRY Schmid ([id number])[facility] ([facility])[address] [place] [address] Phosphoruson 11-01-2023 Phosphate [Mass/Vol] 5.1 mg/dL High 2.5 - 4 .9 mg/dL [facility] Renal function 2000 panelon 11-01-2023 Albumin BCP dye [Mass/Vol] 2.4 g/dL Low 3.4-5.0 [facility] Comment on above: Performed By: #### 2 4362-6 ####GARRY Schmid ([id number])[facility] ([facility])[address] [place] [address] Anion gap [Moles/Vol] 12 mmol/L Normal 10-20 [facility] Comment on above: Performed By: #### 2 4362-6 ####GARRY Schmid ([id number])[facility] ([facility])[address] [place] [address] Calcium [Mass/Vol] 7.8 mg/dL Low 8.6-10.6 [facility] Comment on above: Performed By: #### 2 4362-6 ####GARRY Schmid ([id number])[facility] ([facility])[address] [place] [address] Chloride [Moles/Vol] 96 mmol/L Low 98-107 [facility] Comment on above: Performed By: #### 2 4362-6 ####GARRY Schmid ([id number])[facility] ([facility])[address] [place] [address] CO2 [Moles/Vol] 29 mmol/L Normal 21-32 [facility] Comment on above: Performed By: #### 2 4362-6 ####GARRY Schmid ([id number])[facility] ([facility])[address] [place] [address] Creatinine [Mass/Vol] 0.72 mg/dL Normal 0.50-1.05 [facility] Comment on above: Performed By: #### 2 4362-6 ####GARRY Schmid ([id number])[facility] ([facility])[address] [place] [address] GFR/1.73 sq M.predicted MDRD (S/P/Bld) [Vol rate/Area] mL/min/{1.73_m2} Normal >60 [facility] Comment on above: Result Comment: Calc ulations of estimated GFR are performed using the 2020 CKD-EPI Study Refit equation without the race variable for the IDMS-Traceable creatinine methods.https://jasn.asnjournals.org/content// N.9800441272 Performed By: #### 2 4362-6 ####GARRY Schmid ([id number])[facility] ([facility])[address] [place] [address] Glucose [Mass/Vol] 190 mg/dL High 74-99 [facility] Comment on above: Performed By: #### 2 4362-6 ####GARRY Schmid ([id number])[facility] ([facility])[address] [place] [address] Phosphate [Mass/Vol] 1.5 mg/dL Low 2.5-4.9 [facility] Comment on above: Result Comment: The performance characteristics of phosphorus testing in heparinized plasma have been validated by the individual laboratory site where testing is performed. Testing on heparinized plasma is not approved by the FDA; however, such approval is not necessary. Performed By: #### 2 4362-6 ####GARRY Schmid ([id number])[facility] ([facility])[address] [place] [address] Potassium [Moles/Vol] 3.7 mmol/L Normal 3.5-5.3 [facility] Comment on above: Performed By: #### 2 4362-6 ####GARRY Schmid ([id number])[facility] ([facility])[address] [place] [address] Sodium [Moles/Vol] 133 mmol/L Low 136-145 [facility] Comment on above: Performed By: #### 2 4362-6 ####GARRY Schmid ([id number])[facility] ([facility])[address] [place] [address] Urea nitrogen [Mass/Vol] 9 mg/dL Normal 6-23 [facility] Comment on above: Performed By: #### 2 4362-6 ####GARRY Schmid ([id number])[facility] ([facility])[address] [place] [address] Albumin BCP dye [Mass/Vol] 2.4 g/dL Low 3.4 - 5.0 g/dL [facility] Anion gap [Moles/Vol] 12 mmol/L 10 - 2 0 mmol/L [facility] Calcium [Mass/Vol] 7.8 mg/dL Low 8.6 - 10. 6 mg/dL [facility] Chloride [Moles/Vol] 96 mmol/L Low 98 - 10 7 mmol/L [facility] CO2 [Moles/Vol] 29 mmol/L 21 - 32 mmol/L [facility] Creatinine [Mass/Vol] 0.72 mg/dL 0.50 - 1.05 mg/dL [facility] eGFR - PINF [facility] Glucose [Mass/Vol] 190 mg/dL High 74 - 99 mg/dL [facility] Interpretation and review of laboratory results Abnormal [facility] Phosphate [Mass/Vol] 1.5 mg/dL Low 2.5 - 4 .9 mg/dL [facility] Potassium [Moles/Vol] 3.7 mmol/L 3.5 - 5.3 mmol/L [facility] Sodium [Moles/Vol] 133 mmol/L Low 136 - 145 mmol/L [facility] Urea nitrogen [Mass/Vol] 9 mg/dL 6 - 23 mg/dL [facility] Albumin BCP dye [Mass/Vol] 2.4 g/dL Low 3.4-5.0 [facility] Comment on above: Performed By: #### 2 4362-6 ####GARRY Schmid ([id number])[facility] ([facility])[address] [place] [address] Anion gap [Moles/Vol] 12 mmol/L Normal 10-20 [facility] Comment on above: Performed By: #### 2 4362-6 ####GARRY Schmid (35771)[facility] ([facility])[address] [place] [address] Calcium [Mass/Vol] 8.0 mg/dL Low 8.6-10.6 [facility] Comment on above: Performed By: #### 2 4362-6 ####GARRY NGMOTZLEIGH L ([id number])[facility] ([facility])[address] [place] [address] Chloride [Moles/Vol] 93 mmol/L Low 98-107 [facility] Comment on above: Performed By: #### 2 4362-6 ####GARRY PEREZ L ([id number])[facility] ([facility])[address] [place] [address] CO2 [Moles/Vol] 29 mmol/L Normal 21-32 [facility] Comment on above: Performed By: #### 2 4362-6 ####GARRY Schmid ([id number])[facility] ([facility])[address] [place] [address] Creatinine [Mass/Vol] 0.74 mg/dL Normal 0.50-1.05 [facility] Comment on above: Performed By: #### 2 4362-6 ####GARRY Schmid ([id number])[facility] ([facility])[address] [place] [address] GFR/1.73 sq M.predicted MDRD (S/P/Bld) [Vol rate/Area] mL/min/{1.73_m2} Normal >60 [facility] Comment on above: Result Comment: Calc ulations of estimated GFR are performed using the 2020 CKD-EPI Study Refit equation without the race variable for the IDMS-Traceable creatinine methods.https://jasn.asnjournals.org/content/early/ N.8154169664 Performed By: #### 2 4362-6 ####GARRY Schmid ([id number])[facility] ([facility])[address] [place] [address] Glucose [Mass/Vol] 319 mg/dL High 74-99 [facility] Comment on above: Performed By: #### 2 4362-6 ####GARRY Schmid ([id number])[facility] ([facility])[address] [place] [address] Phosphate [Mass/Vol] 2.5 mg/dL Normal 2.5-4.9 [facility] Comment on above: Result Comment: The performance characteristics of phosphorus testing in heparinized plasma have been validated by the individual laboratory site where testing is performed. Testing on heparinized plasma is not approved by the FDA; however, such approval is not necessary. Performed By: #### 2 4362-6 ####GARRY Schmid ([id number])[facility] ([facility])[address] [place] [address] Potassium [Moles/Vol] 5.4 mmol/L High 3.5-5.[address] [facility] Comment on above: Performed By: #### 2 4362-6 ####GARRY Schmid ([id number])[facility] ([facility])[address] [place] [address] Sodium [Moles/Vol] 129 mmol/L Low 136-145 [facility] Comment on above: Performed By: #### 2 4362-6 ####GARRY Schmid (53784)[facility] ([facility])[address] [place] [address] Urea nitrogen [Mass/Vol] 11 mg/dL Normal 6-23 [facility] Comment on above: Performed By: #### 2 4362-6 ####GARRY Schmid ([id number])[facility] ([facility])[address] [place] [address] Albumin BCP dye [Mass/Vol] 2.4 g/dL Low 3.4 - 5.0 g/dL [facility] Anion gap [Moles/Vol] 12 mmol/L 10 - 2 0 mmol/L [facility] Calcium [Mass/Vol] 8.0 mg/dL Low 8.6 - 10. 6 mg/dL [facility] Chloride [Moles/Vol] 93 mmol/L Low 98 - 10 7 mmol/L [facility] CO2 [Moles/Vol] 29 mmol/L 21 - 32 mmol/L [facility] Creatinine [Mass/Vol] 0.74 mg/dL 0.50 - 1.05 mg/dL [facility] eGFR - PINF [facility] Glucose [Mass/Vol] 319 mg/dL High 74 - 99 mg/dL [facility] Interpretation and review of laboratory results Abnormal [facility] Phosphate [Mass/Vol] 2.5 mg/dL 2.5 - 4 .9 mg/dL [facility] Potassium [Moles/Vol] 5.4 mmol/L High 3.5 - 5.3 mmol/L [facility] Sodium [Moles/Vol] 129 mmol/L Low 136 - 145 mmol/L [facility] Urea nitrogen [Mass/Vol] 11 mg/dL 6 - 23 mg/dL [facility] Albumin BCP dye [Mass/Vol] 2.3 g/dL Low 3.4-5.0 [facility] Comment on above: Performed By: #### 2 4362-6 ####GARRY Schmid ([id number])[facility] ([facility])[address] [place] [address] Anion gap [Moles/Vol] 11 mmol/L Normal 10-20 [facility] Comment on above: Performed By: #### 2 4362-6 ####GARRY Schmid ([id number])[facility] ([facility])[address] [place] [address] Calcium [Mass/Vol] 8.4 mg/dL Low 8.6-10.6 [facility] Comment on above: Performed By: #### 2 4362-6 ####GARRY Schmid ([id number])[facility] ([facility])[address] [place] [address] Chloride [Moles/Vol] 96 mmol/L Low 98-107 [facility] Comment on above: Performed By: #### 2 4362-6 ####GARRY Schmid ([id number])[facility] ([facility])[address] [place] [address] CO2 [Moles/Vol] 32 mmol/L Normal 21-32 [facility] Comment on above: Performed By: #### 2 4362-6 ####GARRY Schmid (24925)[facility] ([facility])[address] [place] [address] Creatinine [Mass/Vol] 0.78 mg/dL Normal 0.50-1.05 [facility] Comment on above: Performed By: #### 2 4362-6 ####GARRY Schmid ([id number])[facility] ([facility])[address] [place] [address] GFR/1.73 sq M.predicted MDRD (S/P/Bld) [Vol rate/Area] mL/min/{1.73_m2} Normal >60 [facility] Comment on above: Result Comment: Calc ulations of estimated GFR are performed using the 2020 CKD-EPI Study Refit equation without the race variable for the IDMS-Traceable creatinine methods.https://jasn.asnjournals.org/content/early/ N.2317813968 Performed By: #### 2 4362-6 ####GARRY Schmid ([id number])[facility] ([facility])[address] [place] [address] Glucose [Mass/Vol] 91 mg/dL Normal 74-99 [facility] Comment on above: Performed By: #### 2 4362-6 ####GARRY Schmid ([id number])[facility] ([facility])[address] [place] [address] Phosphate [Mass/Vol] 2.5 mg/dL Normal 2.5-4.9 [facility] Comment on above: Result Comment: The performance characteristics of phosphorus testing in heparinized plasma have been validated by the individual laboratory site where testing is performed. Testing on heparinized plasma is not approved by the FDA; however, such approval is not necessary. Performed By: #### 2 4362-6 ####GARRY Schmid ([id number])[facility] ([facility])[address] [place] [address] Potassium [Moles/Vol] 4.4 mmol/L Normal 3.5-5.3 [facility] Comment on above: Performed By: #### 2 4362-6 ####GARRY Shcmid (45031)[facility] ([facility])[address] [place] [address] Sodium [Moles/Vol] 135 mmol/L Low 136-145 [facility] Comment on above: Performed By: #### 2 4362-6 ####GARRY Schmid ([id number])[facility] ([facility])[address] [place] [address] Urea nitrogen [Mass/Vol] 11 mg/dL Normal 6-23 [facility] Comment on above: Performed By: #### 2 4362-6 ####GARRY Schmid ([id number])[facility] ([facility])[address] [place] [address] Albumin BCP dye [Mass/Vol] 2.3 g/dL Low 3.4 - 5.0 g/dL [facility] Anion gap [Moles/Vol] 11 mmol/L 10 - 2 0 mmol/L [facility] Calcium [Mass/Vol] 8.4 mg/dL Low 8.6 - 10. 6 mg/dL [facility] Chloride [Moles/Vol] 96 mmol/L Low 98 - 10 7 mmol/L [facility] CO2 [Moles/Vol] 32 mmol/L 21 - 32 mmol/L [facility] Creatinine [Mass/Vol] 0.78 mg/dL 0.50 - 1.05 mg/dL [facility] eGFR - PINF [facility] Glucose [Mass/Vol] 91 mg/dL 74 - 99 mg/dL [facility] Interpretation and review of laboratory results Abnormal [facility] Phosphate [Mass/Vol] 2.5 mg/dL 2.5 - 4 .9 mg/dL [facility] Potassium [Moles/Vol] 4.4 mmol/L 3.5 - 5.3 mmol/L [facility] Sodium [Moles/Vol] 135 mmol/L Low 136 - 145 mmol/L [facility] Urea nitrogen [Mass/Vol] 11 mg/dL 6 - 23 mg/dL [facility] Albumin BCP dye [Mass/Vol] 2.4 g/dL Low 3.4-5.0 [facility] Comment on above: Performed By: #### 2 4362-6 ####GARRY Schmid ([id number])[facility] ([facility])[address] [place] [address] Anion gap [Moles/Vol] 13 mmol/L Normal 10-20 [facility] Comment on above: Performed By: #### 2 4362-6 ####GARRY Schmid ([id number])[facility] ([facility])[address] [place] [address] Calcium [Mass/Vol] 8.9 mg/dL Normal 8.6-10.6 [facility] Comment on above: Performed By: #### 2 4362-6 ####GARRY PEREZ L ([id number])[facility] ([facility])[address] [place] [address] Chloride [Moles/Vol] 96 mmol/L Low 98-107 [facility] Comment on above: Performed By: #### 2 4362-6 ####GARRY Schmid ([id number])[facility] ([facility])[address] [place] [address] CO2 [Moles/Vol] 31 mmol/L Normal 21-32 [facility] Comment on above: Performed By: #### 2 4362-6 ####GARRY Schmid ([id number])[facility] ([facility])[address] [place] [address] Creatinine [Mass/Vol] 0.80 mg/dL Normal 0.50-1.05 [facility] Comment on above: Performed By: #### 2 4362-6 ####GARRY Schmid ([id number])[facility] ([facility])[address] [place] [address] GFR/1.73 sq M.predicted MDRD (S/P/Bld) [Vol rate/Area] mL/min/{1.73_m2} Normal >60 [facility] Comment on above: Result Comment: Calc ulations of estimated GFR are performed using the 2020 CKD-EPI Study Refit equation without the race variable for the IDMS-Traceable creatinine methods.https://jasn.asnjournals.org/content/early/ N.7126823391 Performed By: #### 2 4362-6 ####GARRY Schmid ([id number])[facility] ([facility])[address] [place] [address] Glucose [Mass/Vol] 120 mg/dL High 74-99 [facility] Comment on above: Performed By: #### 2 4362-6 ####GARRY Schmid ([id number])[facility] ([facility])[address] [place] [address] Phosphate [Mass/Vol] 2.5 mg/dL Normal 2.5-4.9 [facility] Comment on above: Result Comment: The performance characteristics of phosphorus testing in heparinized plasma have been validated by the individual laboratory site where testing is performed. Testing on heparinized plasma is not approved by the FDA; however, such approval is not necessary. Performed By: #### 2 4362-6 ####GARRY Schmid ([id number])[facility] ([facility])[address] [place] [address] Potassium [Moles/Vol] 4.9 mmol/L Normal 3.5-5.3 [facility] Comment on above: Performed By: #### 2 4362-6 ####GARRY Schmid ([id number])[facility] ([facility])[address] [place] [address] Sodium [Moles/Vol] 135 mmol/L Low 136-145 [facility] Comment on above: Performed By: #### 2 4362-6 ####GARRY Schmid ([id number])[facility] ([facility])[address] [place] [address] Urea nitrogen [Mass/Vol] 12 mg/dL Normal 6-23 [facility] Comment on above: Performed By: #### 2 4362-6 ####GARRY Schmid ([id number])[facility] ([facility])[address] [place] [address] Albumin BCP dye [Mass/Vol] 2.4 g/dL Low 3.4 - 5.0 g/dL [facility] Anion gap [Moles/Vol] 13 mmol/L 10 - 2 0 mmol/L [facility] Calcium [Mass/Vol] 8.9 mg/dL 8.6 - 10. 6 mg/dL [facility] Chloride [Moles/Vol] 96 mmol/L Low 98 - 10 7 mmol/L [facility] CO2 [Moles/Vol] 31 mmol/L 21 - 32 mmol/L [facility] Creatinine [Mass/Vol] 0.80 mg/dL 0.50 - 1.05 mg/dL [facility] eGFR - PINF [facility] Glucose [Mass/Vol] 120 mg/dL High 74 - 99 mg/dL [facility] Interpretation and review of laboratory results Abnormal [facility] Phosphate [Mass/Vol] 2.5 mg/dL 2.5 - 4 .9 mg/dL [facility] Potassium [Moles/Vol] 4.9 mmol/L 3.5 - 5.3 mmol/L [facility] Sodium [Moles/Vol] 135 mmol/L Low 136 - 145 mmol/L [facility] Urea nitrogen [Mass/Vol] 12 mg/dL 6 - 23 mg/dL [facility] Albumin BCP dye [Mass/Vol] 2.7 g/dL Low 3.4-5.0 [facility] Comment on above: Performed By: #### 2 4362-6 ####GARRY Schmid ([id number])[facility] ([facility])[address] [place] [address] Anion gap [Moles/Vol] 22 mmol/L High 10-20 [facility] Comment on above: Performed By: #### 2 4362-6 ####GARRY Schmid ([id number])[facility] ([facility])[address] [place] [address] Calcium [Mass/Vol] 8.9 mg/dL Normal 8.6-10.6 [facility] Comment on above: Performed By: #### 2 4362-6 ####GARRY Schmid ([id number])[facility] ([facility])[address] [place] [address] Chloride [Moles/Vol] 87 mmol/L Low 98-107 [facility] Comment on above: Performed By: #### 2 4362-6 ####GARRY Schmid ([id number])[facility] ([facility])[address] [place] [address] CO2 [Moles/Vol] 23 mmol/L Normal 21-32 [facility] Comment on above: Performed By: #### 2 4362-6 ####GARRY Schmid ([id number])[facility] ([facility])[address] [place] [address] Creatinine [Mass/Vol] 1.02 mg/dL Normal 0.50-1.05 [facility] Comment on above: Performed By: #### 2 4362-6 ####GARRY Schmid ([id number])[facility] ([facility])[address] [place] [address] Glomerular filtration rate/1.73 sq M.predicted 74 mL/min/1.73m*2 Normal >60 [facility] Comment on above: Result Comment: Calc ulations of estimated GFR are performed using the 2020 CKD-EPI Study Refit equation without the race variable for the IDMS-Traceable creatinine methods.https://jasn.asnjournals.org/content/early/ N.4735626177 Performed By: #### 2 4362-6 ####GARRY Schmid ([id number])[facility] ([facility])[address] [place] [address] Glucose [Mass/Vol] 622 mg/dL Critically high 74-99 [facility] Comment on above: Performed By: #### 2 4362-6 ####GARRY Schmid ([id number])[facility] ([facility])[address] [place] [address] Phosphate [Mass/Vol] 3.7 mg/dL Normal 2.5-4.9 [facility] Comment on above: Result Comment: The performance characteristics of phosphorus testing in heparinized plasma have been validated by the individual laboratory site where testing is performed. Testing on heparinized plasma is not approved by the FDA; however, such approval is not necessary. Performed By: #### 2 4362-6 ####GARRY Schmid ([id number])[facility] ([facility])[address] [place] [address] Potassium [Moles/Vol] 4.5 mmol/L Normal 3.5-5.3 [facility] Comment on above: Performed By: #### 2 4362-6 ####GARYR Schmid ([id number])[facility] ([facility])[address] [place] [address] Sodium [Moles/Vol] 127 mmol/L Low 136-145 [facility] Comment on above: Performed By: #### 2 4362-6 ####GARRY Schmid ([id number])[facility] ([facility])[address] [place] [address] Urea nitrogen [Mass/Vol] 11 mg/dL Normal 6-23 [facility] Comment on above: Performed By: #### 2 4362-6 ####GARRY Schmid (59091)[facility] ([facility])[address] [place] [address] Albumin BCP dye [Mass/Vol] 2.7 g/dL Low 3.4 - 5.0 g/dL [facility] Anion gap [Moles/Vol] 22 mmol/L High 10 - 2 0 mmol/L [facility] Calcium [Mass/Vol] 8.9 mg/dL 8.6 - 10. 6 mg/dL [facility] Chloride [Moles/Vol] 87 mmol/L Low 98 - 10 7 mmol/L [facility] CO2 [Moles/Vol] 23 mmol/L 21 - 32 mmol/L [facility] Creatinine [Mass/Vol] 1.02 mg/dL 0.50 - 1.05 mg/dL [facility] GFR/1.73 sq M.predicted among non-blacks MDRD (S/P/Bld) [Vol rate/Area] 74 mL/min/{1.73_m2} - PINF [facility] Glucose [Mass/Vol] 622 mg/dL Critically high 74 - 9 9 mg/dL [facility] Interpretation and review of laboratory results Abnormal [facility] Phosphate [Mass/Vol] 3.7 mg/dL 2.5 - 4 .9 mg/dL [facility] Potassium [Moles/Vol] 4.5 mmol/L 3.5 - 5.3 mmol/L [facility] Sodium [Moles/Vol] 127 mmol/L Low 136 - 145 mmol/L [facility] Urea nitrogen [Mass/Vol] 11 mg/dL 6 - 23 mg/dL [facility] Albumin BCP dye [Mass/Vol] 2.7 g/dL Low 3.4-5.0 [facility] Comment on above: Performed By: #### 2 4362-6 ####GARRY Schmid ([id number])[facility] ([facility])[address] [place] [address] Anion gap [Moles/Vol] 31 mmol/L High 10-20 [facility] Comment on above: Performed By: #### 2 4362-6 ####GARRY Schmid ([id number])[facility] ([facility])[address] [place] [address] Calcium [Mass/Vol] 8.8 mg/dL Normal 8.6-10.6 [facility] Comment on above: Performed By: #### 2 4362-6 ####GARRY Schmid ([id number])[facility] ([facility])[address] [place] [address] Chloride [Moles/Vol] 81 mmol/L Low 98-107 [facility] Comment on above: Performed By: #### 2 4362-6 ####GARRY Schmid ([id number])[facility] ([facility])[address] [place] [address] CO2 [Moles/Vol] 15 mmol/L Low 21-32 [facility] Comment on above: Performed By: #### 2 4362-6 ####GARRY Schmid ([id number])[facility] ([facility])[address] [place] [address] Creatinine [Mass/Vol] 1.18 mg/dL High 0.50-1.05 [facility] Comment on above: Performed By: #### 2 4362-6 ####GARRY Schmid ([id number])[facility] ([facility])[address] [place] [address] Glomerular filtration rate/1.73 sq M.predicted 62 mL/min/1.73m*2 Normal >60 [facility] Comment on above: Result Comment: Calc ulations of estimated GFR are performed using the 2020 CKD-EPI Study Refit equation without the race variable for the IDMS-Traceable creatinine methods.https://jasn.asnjournals.org/content/early// N.4725123590 Performed By: #### 2 4362-6 ####GARRY Schmid ([id number])[facility] ([facility])[address] [place] [address] Glucose [Mass/Vol] 1079 mg/dL Critically high 74-99 [facility] Comment on above: Performed By: #### 2 4362-6 ####GARRY Schmid ([id number])[facility] ([facility])[address] [place] [address] Phosphate [Mass/Vol] 4.5 mg/dL Normal 2.5-4.9 [facility] Comment on above: Result Comment: The performance characteristics of phosphorus testing in heparinized plasma have been validated by the individual laboratory site where testing is performed. Testing on heparinized plasma is not approved by the FDA; however, such approval is not necessary. Performed By: #### 2 4362-6 ####GARRY Schmid ([id number])[facility] ([facility])[address] [place] [address] Potassium [Moles/Vol] 5.3 mmol/L Normal 3.5-5.3 [facility] Comment on above: Performed By: #### 2 4362-6 ####GARRY PEREZ L ([id number])[facility] ([facility])[address] [place] [address] Sodium [Moles/Vol] 122 mmol/L Low 136-145 [facility] Comment on above: Performed By: #### 2 4362-6 ####GARRY PEREZ L ([id number])[facility] ([facility])[address] [place] [address] Urea nitrogen [Mass/Vol] 9 mg/dL Normal 6-23 [facility] Comment on above: Performed By: #### 2 4362-6 ####GARRY ALANIZER L ([id number])[facility] ([facility])[address] [place] [address] Albumin BCP dye [Mass/Vol] 2.7 g/dL Low 3.4 - 5.0 g/dL [facility] Anion gap [Moles/Vol] 31 mmol/L High 10 - 2 0 mmol/L [facility] Calcium [Mass/Vol] 8.8 mg/dL 8.6 - 10. 6 mg/dL [facility] Chloride [Moles/Vol] 81 mmol/L Low 98 - 10 7 mmol/L [facility] CO2 [Moles/Vol] 15 mmol/L Low 21 - 32 mmol/L [facility] Creatinine [Mass/Vol] 1.18 mg/dL High 0.50 - 1.05 mg/dL [facility] GFR/1.73 sq M.predicted among non-blacks MDRD (S/P/Bld) [Vol rate/Area] 62 mL/min/{1.73_m2} - PINF [facility] Glucose [Mass/Vol] 1079 mg/dL Critically high 74 - 9 9 mg/dL [facility] Interpretation and review of laboratory results Abnormal [facility] Phosphate [Mass/Vol] 4.5 mg/dL 2.5 - 4 .9 mg/dL [facility] Potassium [Moles/Vol] 5.3 mmol/L 3.5 - 5.3 mmol/L [facility] Sodium [Moles/Vol] 122 mmol/L Low 136 - 145 mmol/L [facility] Urea nitrogen [Mass/Vol] 9 mg/dL 6 - 23 mg/dL [facility] Vancomycinon 11-01-2023 Vancomycin [Mass/Vol] 9.9 ug/mL 5.0 - 20.0 ug/mL [facility] Vancomycin [Mass/Vol] 9.9 ug/mL Normal 5.0-20.0 [facility] Comment on above: Order Comment: Vanco mycin levels can be monitored according to area under the curve (AUC) or concentration (ug/mL). The preferred monitoring strategy is determined by the patient's renal function and indication for therapy.For AUC monitoring, a random vancomycin level should be interpreted in the context of AUC rather than the concentration at a single point in time.For concentration monitoring, a trough concentration drawn immediately prior to the next dose is preferred.Therapeutic ranges using concentration-guided results:Peak (all ages): 30.0-40.0 ug/mLTrough (all ages): 10.0-20.0 ug/mL Performed By: #### 2 0578-1 ####GARRY Schmid ([id number])[facility] ([facility])[address] [place] [address] Vancomycin [Mass/Vol]on 10-17 Interpretation and review of laboratory results Normal [facility] XR CHEST 1 VIEWon 11-01-2023 XR CHEST 1 VIEW Normal [facility] XR Chest Single viewon 11-01 [facility] Work Phone: Radiology Study observation (narrative) [facility] Work Phone: XR Chest Single viewOrdered By: Rosetta Meyer on 11-01-2023 [facility] Work Phone: Bedside Midline Imagingon IMAGING CBC panel Auto (Bld)on 10-31 Erythrocyte distribution width (RBC) [Ratio] 14.8 % High 11.5 - 14.5 % [facility] Hematocrit (Bld) [Volume fraction] 29.4 % Low 36.0 - 46.0 % [facility] Hemoglobin (Bld) [Mass/Vol] 9.7 g/dL Low 12.0 - 16.0 g/dL [facility] Interpretation and review of laboratory results Abnormal [facility] MCH (RBC) [Entitic mass] 29.6 pg 26.0 - 34.0 pg [facility] MCHC (RBC) [Mass/Vol] 33.0 g/dL 32.0 - 36.0 g/dL [facility] MCV (RBC) [Entitic vol] 90 fL 80 - 100 fL [facility] Nucleated RBC/100 WBC (Bld) [Ratio] 0.2 % High [facility] Platelets (Bld) [#/Vol] 1497 10*3/uL High [facility] RBC (Bld) [#/Vol] 3.28 10*6/uL Low [facility] WBC (Bld) [#/Vol] 9.6 10*3/uL [facility] CT ABDOMEN PELVIS W IV CONTR Iris 10-31-2023 CT ABDOMEN PELVIS W IV CONTRAST Normal [facility] MIDLINE BEDSIDE IMAGINGon MIDLINE BEDSIDE IMAGING These images are not reportable by radiology and will not be interpreted by Radiologists. Normal [facility] PT and aPTT panel Coag (PPP) on 10-31-2023 aPTT Coag (PPP) [Time] 32 s [facility] INR Coag (PPP) [Relative time] 1.1 {INR} 0.9 - 1.1 [facility] Interpretation and review of laboratory results Normal [facility] PT Coag (PPP) [Time] 12.8 s [facility] Staphylococcus aureus.methic illin resistant isolateon 10-31-2023 MRSA isol Org specific cx Ql (Nose) Normal [facility] Comment on above: Performed By: #### 5 2969-3 ####GARRY Schmid ([id number])[facility] ([facility])[address] [place] [address] CBC panel Auto (Bld)on 10-29 Erythrocyte distribution width (RBC) [Ratio] 14.9 % High 11.5-14.5 [facility] Comment on above: Performed By: #### 5 8410-2 ####GARRY Schmid ([id number])[facility] ([facility])[address] [place] [address] Hematocrit (Bld) [Volume fraction] 27.0 % Low 36.0-46.0 [facility] Comment on above: Performed By: #### 5 8410-2 ####GARRY Schmid ([id number])[facility] ([facility])[address] [place] [address] Hemoglobin (Bld) [Mass/Vol] 9.0 g/dL Low 12.0-16.0 [facility] Comment on above: Performed By: #### 5 8410-2 ####GARRY Schmid ([id number])[facility] ([facility])[address] [place] [address] MCH (RBC) [Entitic mass] 30.0 pg Normal 26.0-34.0 [facility] Comment on above: Performed By: #### 5 8410-2 ####GARRY Schmid ([id number])[facility] ([facility])[address] [place] [address] MCHC (RBC) [Mass/Vol] 33.3 g/dL Normal 32.0-36.0 [facility] Comment on above: Performed By: #### 5 8410-2 ####GARRY Schmid ([id number])[facility] ([facility])[address] [place] [address] MCV (RBC) [Entitic vol] 90 fL Normal 80-100 [facility] Comment on above: Performed By: #### 5 8410-2 ####GARRY Schmid ([id number])[facility] ([facility])[address] [place] [address] Nucleated RBC/100 WBC (Bld) [Ratio] 0.5 /100 WBCs High 0.0-0.0 [facility] Comment on above: Performed By: #### 5 8410-2 ####GARRY Schmid ([id number])[facility] ([facility])[address] [place] [address] Platelets (Bld) [#/Vol] 1385 x10*3/uL High 150-450 [facility] Comment on above: Performed By: #### 5 8410-2 ####GARRY Schmid ([id number])[facility] ([facility])[address] [place] [address] RBC (Bld) [#/Vol] 3.00 x10*6/uL Low 4.00-5.20 [facility] Comment on above: Performed By: #### 5 8410-2 ####GARRY Schmid ([id number])[facility] ([facility])[address] [place] [address] WBC (Bld) [#/Vol] 11.4 x10*3/uL High 4.4-11.3 [facility] Comment on above: Performed By: #### 5 8410-2 ####GARRY Schmid ([id number])[facility] ([facility])[address] [place] [address] Comprehensive metabolic 2000 panelon 10-29-2023 Albumin BCP dye [Mass/Vol] 2.4 g/dL Low 3.4-5.0 [facility] Comment on above: Performed By: #### 2 4323-8 ####GARRY Schmid ([id number])[facility] ([facility])[address] [place] [address] ALP [Catalytic activity/Vol] 109 U/L Normal 33-110 [facility] Comment on above: Performed By: #### 2 4323-8 ####GARRY Schmid ([id number])[facility] ([facility])[address] [place] [address] ALT With P-5'-P [Catalytic activity/Vol] 6 U/L Low 7-45 [facility] Comment on above: Result Comment: Gianna ents treated with Sulfasalazine may generate falsely decreased results for ALT. Performed By: #### 2 4323-8 ####GARRY Schmid ([id number])[facility] ([facility])[address] [place] [address] Anion gap [Moles/Vol] 10 mmol/L Normal 10-20 [facility] Comment on above: Performed By: #### 2 4323-8 ####GARRY Schmid ([id number])[facility] ([facility])[address] [place] [address] AST With P-5'-P [Catalytic activity/Vol] 10 U/L Normal 9-39 [facility] Comment on above: Performed By: #### 2 4323-8 ####GARRY Schmid ([id number])[facility] ([facility])[address] [place] [address] Bilirubin [Mass/Vol] 0.1 mg/dL Normal 0.0-1.2 [facility] Comment on above: Performed By: #### 2 4323-8 ####GARRY Schmid ([id number])[facility] ([facility])[address] [place] [address] Calcium [Mass/Vol] 8.0 mg/dL Low 8.6-10.6 [facility] Comment on above: Performed By: #### 2 4323-8 ####GARRY Schmid ([id number])[facility] ([facility])[address] [place] [address] Chloride [Moles/Vol] 101 mmol/L Normal 98-107 [facility] Comment on above: Performed By: #### 2 4323-8 ####GARRY Schmid ([id number])[facility] ([facility])[address] [place] [address] CO2 [Moles/Vol] 29 mmol/L Normal 21-32 [facility] Comment on above: Performed By: #### 2 4323-8 ####GARRY Schmid ([id number])[facility] ([facility])[address] [place] [address] Creatinine [Mass/Vol] 0.69 mg/dL Normal 0.50-1.05 [facility] Comment on above: Performed By: #### 2 4323-8 ####GARRY Schmid ([id number])[facility] ([facility])[address] [place] [address] GFR/1.73 sq M.predicted MDRD (S/P/Bld) [Vol rate/Area] mL/min/{1.73_m2} Normal >60 [facility] Comment on above: Result Comment: Calc ulations of estimated GFR are performed using the 2020 CKD-EPI Study Refit equation without the race variable for the IDMS-Traceable creatinine methods.https://jasn.asnjournals.org/content/early// N.4663888731 Performed By: #### 2 4323-8 ####GARRY Schmid ([id number])[facility] ([facility])[address] [place] [address] Glucose [Mass/Vol] 240 mg/dL High 74-99 [facility] Comment on above: Performed By: #### 2 4323-8 ####GARRY PEREZ L ([id number])[facility] ([facility])[address] [place] [address] Potassium [Moles/Vol] 5.5 mmol/L High 3.5-5.3 [facility] Comment on above: Performed By: #### 2 4323-8 ####GARRY PEREZ L ([id number])[facility] ([facility])[address] [place] [address] Protein [Mass/Vol] 5.9 g/dL Low 6.4-8.2 [facility] Comment on above: Performed By: #### 2 4323-8 ####GARRY PEREZ L ([id number])[facility] ([facility])[address] [place] [address] Sodium [Moles/Vol] 134 mmol/L Low 136-145 [facility] Comment on above: Performed By: #### 2 4323-8 ####GARRY Schmid ([id number])[facility] ([facility])[address] [place] [address] Urea nitrogen [Mass/Vol] 8 mg/dL Normal 6-23 [facility] Comment on above: Performed By: #### 2 4323-8 ####GARRY Schmid ([id number])[facility] ([facility])[address]179 [place] [address] Glucose Test strip manual (B ld) [Mass/Vol]on 10-29-2023 Glucose [Mass/Vol] 127 mg/dL High 74-99 [facility] Comment on above: Performed By: #### 2 341-6 ####GARRY Schmid ([id number])[facility] ([facility])[address]279 [place] [address] Glucose [Mass/Vol] 249 mg/dL High 74-99 [facility] Comment on above: Result Comment: RN/M D NOTIFIED Performed By: #### 2 341-6 ####GARRY Schmid ([id number])[facility] ([facility])[address]92 [place] [address] Glucose [Mass/Vol] 37 mg/dL Low 74-99 [facility] Comment on above: Performed By: #### 2 341-6 ####GARRY Schmid ([id number])[facility] ([facility])[address]29 [place] [address] Glucose [Mass/Vol] 263 mg/dL High 74-99 [facility] Comment on above: Performed By: #### 2 341-6 ####GARRY Schmid (77175)[facility] ([facility])[address]287 [place] [address] Glucose [Mass/Vol] 248 mg/dL High 74-99 [facility] Comment on above: Performed By: #### 2 341-6 ####GARRY Schmid ([id number])[facility] ([facility])[address]76 [place] [address] Glucose [Mass/Vol] 225 mg/dL High 74-99 [facility] Comment on above: Performed By: #### 2 341-6 ####GARRY Schmid ([id number])[facility] ([facility])[address] [place] [address] IR LYMPHANGIOGRAM PELVIS ABD OMEN BILATERALon 10-29-2023 IR LYMPHANGIOGRAM PELVIS ABDOMEN BILATERAL Normal [facility] Magnesiumon 10-29-2023 Magnesium [Mass/Vol] 2.29 mg/dL Normal 1.60-2.40 [facility] Comment on above: Performed By: #### 1 9123-9 ####GARRY Schmid ([id number])[facility] ([facility])[address]403 [place] [address] CBC panel Auto (Bld)on 10-28 Erythrocyte distribution width (RBC) [Ratio] 15.0 % High 11.5-14.5 [facility] Comment on above: Performed By: #### 5 8410-2 ####GARRY Schmid ([id number])[facility] ([facility])[address]324 [place] [address] Hematocrit (Bld) [Volume fraction] 25.5 % Low 36.0-46.0 [facility] Comment on above: Performed By: #### 5 8410-2 ####GARRY Schmid (54494)[facility] ([facility])[address]463 [place] [address] Hemoglobin (Bld) [Mass/Vol] 8.7 g/dL Low 12.0-16.0 [facility] Comment on above: Performed By: #### 5 8410-2 ####GARRY Schmid ([id number])[facility] ([facility])[address]69 [place] [address] MCH (RBC) [Entitic mass] 31.2 pg Normal 26.0-34.0 [facility] Comment on above: Performed By: #### 5 8410-2 ####GARRY Schmid ([id number])[facility] ([facility])[address]15 [place] [address] MCHC (RBC) [Mass/Vol] 34.1 g/dL Normal 32.0-36.0 [facility] Comment on above: Performed By: #### 5 8410-2 ####GARRY Schmid ([id number])[facility] ([facility])[address]39 [place] [address] MCV (RBC) [Entitic vol] 91 fL Normal 80-100 [facility] Comment on above: Performed By: #### 5 8410-2 ####GARRY Schmid ([id number])[facility] ([facility])[address]129 [place] [address] Nucleated RBC/100 WBC (Bld) [Ratio] 0.3 /100 WBCs High 0.0-0.0 [facility] Comment on above: Performed By: #### 5 8410-2 ####GARRY Schmid ([id number])[facility] ([facility])[address]40 [place] [address] Platelets (Bld) [#/Vol] 1189 x10*3/uL High 150-450 [facility] Comment on above: Performed By: #### 5 8410-2 ####GARRY Schmid ([id number])[facility] ([facility])[address]11 [place] [address] RBC (Bld) [#/Vol] 2.79 x10*6/uL Low 4.00-5.20 [facility] Comment on above: Performed By: #### 5 8410-2 ####GARRY Schmid (83632)[facility] ([facility])[address]212 [place] [address] WBC (Bld) [#/Vol] 21.7 x10*3/uL High 4.4-11.3 [facility] Comment on above: Performed By: #### 5 8410-2 ####GARRY Schmid (51219)[facility] ([facility])[address]164 [place] [address] CT ABDOMEN PELVIS W IV CONTR Iris 10-28-2023 CT ABDOMEN PELVIS W IV CONTRAST Normal [facility] Comprehensive metabolic 2000 panelon 10-28-2023 Albumin BCP dye [Mass/Vol] 2.3 g/dL Low 3.4-5.0 [facility] Comment on above: Performed By: #### 2 4323-8 ####GARRY Schmid ([id number])[facility] ([facility])[address]84 [place] [address] ALP [Catalytic activity/Vol] 110 U/L Normal 33-110 [facility] Comment on above: Performed By: #### 2 4323-8 ####GARRY Schmid ([id number])[facility] ([facility])[address]317 [place] [address] ALT With P-5'-P [Catalytic activity/Vol] 6 U/L Low 7-45 [facility] Comment on above: Result Comment: Gianna ents treated with Sulfasalazine may generate falsely decreased results for ALT. Performed By: #### 2 4323-8 ####GARRY Schmid ([id number])[facility] ([facility])[address]26 [place] [address] Anion gap [Moles/Vol] 12 mmol/L Normal 10-20 [facility] Comment on above: Performed By: #### 2 4323-8 ####GARRY Schmid ([id number])[facility] ([facility])[address]121 [place] [address] AST With P-5'-P [Catalytic activity/Vol] 9 U/L Normal 9-39 [facility] Comment on above: Performed By: #### 2 4323-8 ####GARRY Schmid ([id number])[facility] ([facility])[address]673 [place] [address] Bilirubin [Mass/Vol] 0.1 mg/dL Normal 0.0-1.2 [facility] Comment on above: Performed By: #### 2 4323-8 ####GARRY PEREZ L (73491)[facility] ([facility])[address]02 [place] [address] Calcium [Mass/Vol] 7.8 mg/dL Low 8.6-10.6 [facility] Comment on above: Performed By: #### 2 4323-8 ####GARRY PEREZ L (56329)[facility] ([facility])[address]118 [place] [address] Chloride [Moles/Vol] 100 mmol/L Normal 98-107 [facility] Comment on above: Performed By: #### 2 4323-8 ####GARRY PEREZ L (73900)[facility] ([facility])[address]90 [place] [address] CO2 [Moles/Vol] 28 mmol/L Normal 21-32 [facility] Comment on above: Performed By: #### 2 4323-8 ####GARRY PEREZ L (07877)[facility] ([facility])[address]53 [place] [address] Creatinine [Mass/Vol] 0.64 mg/dL Normal 0.50-1.05 [facility] Comment on above: Performed By: #### 2 4323-8 ####GARRY PEREZ L (49797)[facility] ([facility])[address]449 [place] [address] GFR/1.73 sq M.predicted MDRD (S/P/Bld) [Vol rate/Area] mL/min/{1.73_m2} Normal >60 [facility] Comment on above: Result Comment: Calc ulations of estimated GFR are performed using the 2020 CKD-EPI Study Refit equation without the race variable for the IDMS-Traceable creatinine methods.https://jasn.asnjournals.org/content/early/ N.6753042650 Performed By: #### 2 4323-8 ####GARRY Schmid ([id number])[facility] ([facility])[address]97 [place] [address] Glucose [Mass/Vol] 162 mg/dL High 74-99 [facility] Comment on above: Performed By: #### 2 4323-8 ####GARRY Schmid (80748)[facility] ([facility])03954 [place] [address] Potassium [Moles/Vol] 4.9 mmol/L Normal 3.5-5.3 [facility] Comment on above: Performed By: #### 2 4323-8 ####GARRY Schmid ([id number])[facility] ([facility])12743 [place] [address] Protein [Mass/Vol] 5.5 g/dL Low 6.4-8.2 [facility] Comment on above: Performed By: #### 2 4323-8 ####GARRY Schmid (65453)[facility] ([facility])[address]31 [place] [address] Sodium [Moles/Vol] 135 mmol/L Low 136-145 [facility] Comment on above: Performed By: #### 2 4323-8 ####GARRY Schmid (53456)[facility] ([facility])[address]315 [place] [address] Urea nitrogen [Mass/Vol] 7 mg/dL Normal 6-23 [facility] Comment on above: Performed By: #### 2 4323-8 ####GARRY Schmid (60737)[facility] ([facility])[address]809 [place] [address] Glucose Test strip manual (B ld) [Mass/Vol]on 10-28-2023 Glucose [Mass/Vol] 126 mg/dL High 74-99 [facility] Comment on above: Performed By: #### 2 341-6 ####GARYR Schmid ([id number])[facility] ([facility])[address]354 [place] [address] Glucose [Mass/Vol] 158 mg/dL High 74-99 [facility] Comment on above: Performed By: #### 2 341-6 ####GARRY Schmid ([id number])[facility] ([facility])[address]39 [place] [address] Glucose [Mass/Vol] 102 mg/dL High [address] [place] [address] Comment on above: Performed By: #### 2 341-6 ####GARRY Schmid (84569)[facility] ([facility])[address]11 [place] [address] Glucose [Mass/Vol] 61 mg/dL Low -[address] [place] [address] Comment on above: Performed By: #### 2 341-6 ####GARRY Schmid (34842)[facility] ([facility])24903 [place] [address] Glucose [Mass/Vol] 242 mg/dL High [address] [place] [address] Comment on above: Performed By: #### 2 341-6 ####GARRY Schmid ([id number])[facility] ([facility])[address]68 [place] [address] Glucose [Mass/Vol] 199 mg/dL High [address] [place] [address] Comment on above: Performed By: #### 2 341-6 ####GARRY Schmid ([id number])[facility] ([facility])[address]507 [place] [address] Glucose [Mass/Vol] 168 mg/dL High -[address] [place] [address] Comment on above: Performed By: #### 2 341-6 ####GARRY Schmid (27989)[facility] ([facility])38568 [place] [address] Magnesiumon 10-28-2023 Magnesium [Mass/Vol] 2.19 mg/dL Normal 1.60-2.40 [facility] Comment on above: Performed By: #### 1 9123-9 ####GARRY Schmid (95607)[facility] ([facility])[address]752 [facility] [address] Urinalysis complete W Reflex Culture panel (U)on 10-28-2023 Appearance (U) Clear Normal Clear [facility] Comment on above: Performed By: #### 5 8077-9 ####GARRY Schmid ([id number])[facility] ([facility])[address]87 [place] [address] Bilirubin (U) [Mass/Vol] Negative Normal NEGATIVE [facility] Comment on above: Performed By: #### 5 8077-9 ####GARRY Schmid (12727)[facility] ([facility])47698 [facility] [address] Color (U) Light-Yellow Normal Light-Yellow , Yellow, Dark-Yellow [facility] Comment on above: Performed By: #### 5 8077-9 ####GARRY Schmid (84782)[facility] ([facility])32154 [place] [address] Glucose Auto test strip (U) [Mass/Vol] Normal Normal Normal [facility] Comment on above: Performed By: #### 5 8077-9 ####GARRY Schmid ([id number])[facility] ([facility])[address]1998 [facility] [address] Ketones (U) [Mass/Vol] Negative Normal NEGATIVE [facility] Comment on above: Performed By: #### 5 8077-9 ####GARRY Schmid (48096)[facility] ([facility])[address]23 [place] [address] Leukocyte esterase Auto test strip Ql (U) Negative Normal NEGATIVE [facility] Comment on above: Performed By: #### 5 8077-9 ####GARRY PEREZ L (43530)[facility] ([facility])[address]18 [facility] [address] Nitrite Auto test strip Ql (U) Negative Normal NEGATIVE [facility] Comment on above: Performed By: #### 5 8077-9 ####GARRY Schmid (58556)[facility] ([facility])[address]400 [place] [address] pH (U) 6.5 [pH] Normal 5.0, 5.5, 6.0, 6.5, 7.0, 7.5, 8.0 [facility] Comment on above: Performed By: #### 5 8077-9 ####GARRY Schmid ([id number])[facility] ([facility])[address] [place] [address] Protein (U) [Mass/Vol] Negative Normal NEGATIVE, 10 (TRACE), 20 (TRACE) [facility] Comment on above: Performed By: #### 5 8077-9 ####GARRY Schmid (56375)[facility] ([facility])[address] [place] [address] RBC (U) [#/Vol] Negative Normal NEGATIVE [facility] Comment on above: Performed By: #### 5 8077-9 ####GARRY Schmid ([id number])[facility] ([facility])[address] [place] [address] Specific gravity (U) [Rel density] 1.032 Normal 1.005-1.035 [facility] Comment on above: Performed By: #### 5 8077-9 ####GARRY Schmid (78194)[facility] ([facility])55278 [place] [address] Urobilinogen (U) [Mass/Vol] Normal Normal Normal [facility] Comment on above: Performed By: #### 5 8077-9 ####GARRY Schmid (77176)[facility] ([facility])[address] [place] [address] Urinalysis complete panel (U )on 10-28-2023 Appearance (U) Clear Normal Clear [facility] Comment on above: Performed By: #### 2 4356-8 ####GARRY Schmid (60830)[facility] ([facility])[address]3964 [place] [address] Bilirubin (U) [Mass/Vol] Negative Normal NEGATIVE [facility] Comment on above: Performed By: #### 2 4356-8 ####GARRY Schmid ([id number])[facility] ([facility])[address] [place] [address] Color (U) Light-Yellow Normal Light-Yellow , Yellow, Dark-Yellow [facility] Comment on above: Performed By: #### 2 4356-8 ####GARRY Schmid ([id number])[facility] ([facility])[address] [place] [address] Glucose Auto test strip (U) [Mass/Vol] Normal Normal Normal [facility] Comment on above: Performed By: #### 2 4356-8 ####GARRY Schmid ([id number])[facility] ([facility])[address] [place] [address] Ketones (U) [Mass/Vol] Negative Normal NEGATIVE [facility] Comment on above: Performed By: #### 2 4356-8 ####GARRY Schmid ([id number])[facility] ([facility])[address]25 [place] [address] Leukocyte esterase Auto test strip Ql (U) 25 Kelly/???L Abnormal NEGATIVE [facility] Comment on above: Performed By: #### 2 4356-8 ####GARRY Schmid ([id number])[facility] ([facility])[address] [place] [address] Nitrite Auto test strip Ql (U) Negative Normal NEGATIVE [facility] Comment on above: Performed By: #### 2 4356-8 ####GARRY Schmid (27705)[facility] ([facility])[address] [place] [address] pH (U) 6.5 [pH] Normal 5.0, 5.5, 6.0, 6.5, 7.0, 7.5, 8.0 [facility] Comment on above: Performed By: #### 2 4356-8 ####GARRY PEREZ L (89675)[facility] ([facility])[address]808 [place] [address] Protein (U) [Mass/Vol] Negative Normal NEGATIVE, 10 (TRACE), 20 (TRACE) [facility] Comment on above: Performed By: #### 2 4356-8 ####GARRY ALANIZER L (91202)[facility] ([facility])03994 [facility] [address] RBC (U) [#/Vol] Negative Normal NEGATIVE [facility] Comment on above: Performed By: #### 2 4356-8 ####GARRY PEREZ L ([id number])[facility] ([facility])[address] [place] [address] Specific gravity (U) [Rel density] 1.030 Normal 1.005-1.035 [facility] Comment on above: Performed By: #### 2 4356-8 ####GARRY ALANIZER L (67669)[facility] ([facility])39098 [place] [address] Urobilinogen (U) [Mass/Vol] Normal Normal Normal [facility] Comment on above: Performed By: #### 2 4356-8 ####GARRY SHIRLEYTZLEIGH L (21101)[facility] ([facility])[address]75 [place] [address] Urinalysis microscopic panel Auto Ql (U)on 10-28-2023 Epithelial cells.squamous Auto (Urine sed) [#/Area] 1-9 (SPARSE) Normal Reference range not established. [facility] Comment on above: Performed By: #### 5 3315-8 ####GARRY NGMOTZER L (79264)[facility] ([facility])13016 [place] [address] Mucus Auto (Urine sed) [#/Area] FEW Normal Reference range not established. [facility] Comment on above: Performed By: #### 5 3315-8 ####GARRY ALANIZER L ([id number])[facility] ([facility])51564 [place] [address] RBC Auto (Urine sed) [#/Area] 1-2 Normal NONE, 1-2, 3-5 [facility] Comment on above: Performed By: #### 5 3315-8 ####GARRY Schmid (69000)[facility] ([facility])74003 [place] [address] WBC Auto (Urine sed) [#/Area] 1-5 Normal 1-5, NONE [facility] Comment on above: Performed By: #### 5 3315-8 ####GARRY Schmid ([id number])[facility] ([facility])61583 [place] [address] CBC panel Auto (Bld)on 10-27 Erythrocyte distribution width (RBC) [Ratio] 14.6 % High 11.5-14.5 [facility] Comment on above: Performed By: #### 5 8410-2 ####GARRY Schmid ([id number])[facility] ([facility])[address] [place] [address] Hematocrit (Bld) [Volume fraction] 25.7 % Low 36.0-46.0 [facility] Comment on above: Performed By: #### 5 8410-2 ####GARRY Schmid (40590)[facility] ([facility])[address] [place] [address] Hemoglobin (Bld) [Mass/Vol] 8.5 g/dL Low 12.0-16.0 [facility] Comment on above: Performed By: #### 5 8410-2 ####GARRY Schmid ([id number])[facility] ([facility])[address]37 [place] [address] MCH (RBC) [Entitic mass] 29.9 pg Normal 26.0-34.0 [facility] Comment on above: Performed By: #### 5 8410-2 ####GARRY Schmid (59556)[facility] ([facility])16414 [place] [address] MCHC (RBC) [Mass/Vol] 33.1 g/dL Normal 32.0-36.0 [facility] Comment on above: Performed By: #### 5 8410-2 ####GARRY Schmid ([id number])[facility] ([facility])16575 [place] [address] MCV (RBC) [Entitic vol] 91 fL Normal 80-100 [facility] Comment on above: Performed By: #### 5 8410-2 ####GARRY Schmdi (05560)[facility] ([facility])15096 [place] [address] Nucleated RBC/100 WBC (Bld) [Ratio] 0.5 /100 WBCs High 0.0-0.0 [facility] Comment on above: Performed By: #### 5 8410-2 ####GARRY Schmid ([id number])[facility] ([facility])[address]44 [place] [address] Platelets (Bld) [#/Vol] 1229 x10*3/uL High 150-450 [facility] Comment on above: Performed By: #### 5 8410-2 ####GARRY Schmid ([id number])[facility] ([facility])[address] [place] [address] RBC (Bld) [#/Vol] 2.84 x10*6/uL Low 4.00-5.20 [facility] Comment on above: Performed By: #### 5 8410-2 ####GARRY Schmid ([id number])[facility] ([facility])[address]67 [place] [address] WBC (Bld) [#/Vol] 11.8 x10*3/uL High 4.4-11.3 [facility] Comment on above: Performed By: #### 5 8410-2 ####GARRY Schmid ([id number])[facility] ([facility])[address] [place] [address] Comprehensive metabolic 2000 panelon 02-11-2024 Albumin BCP dye [Mass/Vol] 2.4 g/dL Low 3.4-5.0 [facility] Comment on above: Performed By: #### 2 4323-8 ####GARRY Schmid ([id number])[facility] ([facility])[address] [place] [address] ALP [Catalytic activity/Vol] 101 U/L Normal 33-110 [facility] Comment on above: Performed By: #### 2 4323-8 ####GARRY Schmid ([id number])[facility] ([facility])[address] [place] [address] ALT With P-5'-P [Catalytic activity/Vol] 7 U/L Normal 7-45 [facility] Comment on above: Result Comment: Gianna ents treated with Sulfasalazine may generate falsely decreased results for ALT. Performed By: #### 2 4323-8 ####GARRY Schmid ([id number])[facility] ([facility])[address] [place] [address] Anion gap [Moles/Vol] 12 mmol/L Normal 10-20 [facility] Comment on above: Performed By: #### 2 4323-8 ####GARRY Schmid ([id number])[facility] ([facility])[address] [place] [address] AST With P-5'-P [Catalytic activity/Vol] 11 U/L Normal 9-39 [facility] Comment on above: Performed By: #### 2 4323-8 ####GARRY Schmid ([id number])[facility] ([facility])[address] [place] [address] Bilirubin [Mass/Vol] 0.1 mg/dL Normal 0.0-1.2 [facility] Comment on above: Performed By: #### 2 4323-8 ####GARRY Schmid ([id number])[facility] ([facility])[address] [place] [address] Calcium [Mass/Vol] 7.9 mg/dL Low 8.6-10.6 [facility] Comment on above: Performed By: #### 2 4323-8 ####GARRY Schmid ([id number])[facility] ([facility])[address]87 [place] [address] Chloride [Moles/Vol] 101 mmol/L Normal 98-107 [facility] Comment on above: Performed By: #### 2 4323-8 ####GARRY PEREZ L ([id number])[facility] ([facility])[address] [place] [address] CO2 [Moles/Vol] 27 mmol/L Normal 21-32 [facility] Comment on above: Performed By: #### 2 4323-8 ####GARRY Schmid ([id number])[facility] ([facility])[address] [place] [address] Creatinine [Mass/Vol] 0.83 mg/dL Normal 0.50-1.05 [facility] Comment on above: Performed By: #### 2 4323-8 ####GARRY Schmid ([id number])[facility] ([facility])[address] [place] [address] GFR/1.73 sq M.predicted MDRD (S/P/Bld) [Vol rate/Area] mL/min/{1.73_m2} Normal >60 [facility] Comment on above: Result Comment: Calc ulations of estimated GFR are performed using the 2020 CKD-EPI Study Refit equation without the race variable for the IDMS-Traceable creatinine methods.https://jasn.asnjournals.org/content/early// N.3912714626 Performed By: #### 2 4323-8 ####GARRY Schmid ([id number])[facility] ([facility])[address] [place] [address] Glucose [Mass/Vol] 190 mg/dL High 74-99 [facility] Comment on above: Performed By: #### 2 4323-8 ####GARRY Schmid ([id number])[facility] ([facility])[address] [place] [address] Potassium [Moles/Vol] 4.1 mmol/L Normal 3.5-5.3 [facility] Comment on above: Performed By: #### 2 4323-8 ####GARRY Schmid ([id number])[facility] ([facility])[address]24 [place] [address] Protein [Mass/Vol] 6.0 g/dL Low 6.4-8.2 [facility] Comment on above: Performed By: #### 2 4323-8 ####GARRY Schmid ([id number])[facility] ([facility])[address] [place] [address] Sodium [Moles/Vol] 136 mmol/L Normal 136-145 [facility] Comment on above: Performed By: #### 2 4323-8 ####GARRY Schmid ([id number])[facility] ([facility])[address]130 [place] [address] Urea nitrogen [Mass/Vol] 7 mg/dL Normal 6-23 [facility] Comment on above: Performed By: #### 2 4323-8 ####GARRY Schmid ([id number])[facility] ([facility])[address]142 [place] [address] Glucose Test strip manual (B ld) [Mass/Vol]on 10-27-2023 Glucose [Mass/Vol] 222 mg/dL High 74-99 [facility] Comment on above: Performed By: #### 2 341-6 ####GARRY Schmid ([id number])[facility] ([facility])[address]28 [place] [address] Glucose [Mass/Vol] 100 mg/dL High 74-99 [facility] Comment on above: Performed By: #### 2 341-6 ####GARRY Schmid ([id number])[facility] ([facility])[address] [place] [address] Glucose [Mass/Vol] 75 mg/dL Normal 74-99 [facility] Comment on above: Performed By: #### 2 341-6 ####GARRY Schmid ([id number])[facility] ([facility])[address]180 [place] [address] Glucose [Mass/Vol] 101 mg/dL High 74-99 [facility] Comment on above: Performed By: #### 2 341-6 ####GARRY Schmid ([id number])[facility] ([facility])[address]4744 [place] [address] Glucose [Mass/Vol] 62 mg/dL Low 74-99 [facility] Comment on above: Performed By: #### 2 341-6 ####GARRY Schmid ([id number])[facility] ([facility])[address] [place] [address] Glucose [Mass/Vol] 61 mg/dL Low 74-99 [facility] Comment on above: Performed By: #### 2 341-6 ####GARRY Schmid ([id number])[facility] ([facility])[address]217 [place] [address] Glucose [Mass/Vol] 191 mg/dL High 74-99 [facility] Comment on above: Performed By: #### 2 341-6 ####GARRY Schmid ([id number])[facility] ([facility])[address] [place] [address] Magnesiumon 10-27-2023 Magnesium [Mass/Vol] 2.28 mg/dL Normal 1.60-2.40 [facility] Comment on above: Performed By: #### 1 9123-9 ####GARRY Schmid ([id number])[facility] ([facility])[address] [place] [address] CBC panel Auto (Bld)on 10-26 Erythrocyte distribution width (RBC) [Ratio] 15.6 % High 11.5-14.5 [facility] Comment on above: Performed By: #### 5 8410-2 ####GARRY Schmid ([id number])[facility] ([facility])[address]25 [place] [address] Hematocrit (Bld) [Volume fraction] 24.7 % Low 36.0-46.0 [facility] Comment on above: Performed By: #### 5 8410-2 ####GARRY Schmid ([id number])[facility] ([facility])[address] [place] [address] Hemoglobin (Bld) [Mass/Vol] 7.8 g/dL Low 12.0-16.0 [facility] Comment on above: Performed By: #### 5 8410-2 ####GRARY Schmid ([id number])[facility] ([facility])[address] [place] [address] MCH (RBC) [Entitic mass] 30.5 pg Normal 26.0-34.0 [facility] Comment on above: Performed By: #### 5 8410-2 ####GARRY Schmid ([id number])[facility] ([facility])[address] [place] [address] MCHC (RBC) [Mass/Vol] 31.6 g/dL Low 32.0-36.0 [facility] Comment on above: Performed By: #### 5 8410-2 ####GARRY Schmid ([id number])[facility] ([facility])[address] [place] [address] MCV (RBC) [Entitic vol] 97 fL Normal 80-100 [facility] Comment on above: Performed By: #### 5 8410-2 ####GARRY Schmid ([id number])[facility] ([facility])[address] [place] [address] Nucleated RBC/100 WBC (Bld) [Ratio] 0.4 /100 WBCs High 0.0-0.0 [facility] Comment on above: Performed By: #### 5 8410-2 ####GARRY Schmid ([id number])[facility] ([facility])[address]349 [place] [address] Platelets (Bld) [#/Vol] 1082 x10*3/uL High 150-450 [facility] Comment on above: Performed By: #### 5 8410-2 ####GARRY Schmid ([id number])[facility] ([facility])[address]77 [place] [address] RBC (Bld) [#/Vol] 2.56 x10*6/uL Low 4.00-5.20 [facility] Comment on above: Performed By: #### 5 8410-2 ####GARRY Schmid ([id number])[facility] ([facility])[address]55 [place] [address] WBC (Bld) [#/Vol] 13.2 x10*3/uL High 4.4-11.3 [facility] Comment on above: Performed By: #### 5 8410-2 ####GARRY Schmid ([id number])[facility] ([facility])[address]856 [place] [address] Comprehensive metabolic 2000 panelon 10-26-2023 Albumin BCP dye [Mass/Vol] 2.2 g/dL Low 3.4-5.0 [facility] Comment on above: Performed By: #### 2 4323-8 ####GARRY Schmid ([id number])[facility] ([facility])[address]75 [place] [address] ALP [Catalytic activity/Vol] 109 U/L Normal 33-110 [facility] Comment on above: Performed By: #### 2 4323-8 ####GARRY Schmid ([id number])[facility] ([facility])[address] [place] [address] ALT With P-5'-P [Catalytic activity/Vol] 8 U/L Normal 7-45 [facility] Comment on above: Result Comment: Gianna ents treated with Sulfasalazine may generate falsely decreased results for ALT. Performed By: #### 2 4323-8 ####GARRY Schmid ([id number])[facility] ([facility])[address] [place] [address] Anion gap [Moles/Vol] 12 mmol/L Normal 10-20 [facility] Comment on above: Performed By: #### 2 4323-8 ####GARRY Schmid ([id number])[facility] ([facility])[address] [facility] [place] [address] AST With P-5'-P [Catalytic activity/Vol] 12 U/L Normal 9-39 [facility] Comment on above: Performed By: #### 2 4323-8 ####GARRY Schmid ([id number])[facility] ([facility])[address]78 [place] [address] Bilirubin [Mass/Vol] 0.1 mg/dL Normal 0.0-1.2 [facility] Comment on above: Performed By: #### 2 4323-8 ####GARRY Schmid ([id number])[facility] ([facility])[address]255 [place] [address] Calcium [Mass/Vol] 7.7 mg/dL Low 8.6-10.6 [facility] Comment on above: Performed By: #### 2 4323-8 ####GARRY Schmid (54698)[facility] ([facility])[address] [place] [address] Chloride [Moles/Vol] 100 mmol/L Normal 98-107 [facility] Comment on above: Performed By: #### 2 4323-8 ####GARRY Schmid ([id number])[facility] ([facility])[address]69 [place] [address] CO2 [Moles/Vol] 28 mmol/L Normal 21-32 [facility] Comment on above: Performed By: #### 2 4323-8 ####GARRY Schmid ([id number])[facility] ([facility])[address] [facility] [place] [address] Creatinine [Mass/Vol] 0.83 mg/dL Normal 0.50-1.05 [facility] Comment on above: Performed By: #### 2 4323-8 ####GARRY Schmid ([id number])[facility] ([facility])[address]22 [place] [address] GFR/1.73 sq M.predicted MDRD (S/P/Bld) [Vol rate/Area] mL/min/{1.73_m2} Normal >60 [facility] Comment on above: Result Comment: Calc ulations of estimated GFR are performed using the 2020 CKD-EPI Study Refit equation without the race variable for the IDMS-Traceable creatinine methods.https://jasn.asnjournals.org/content/early/ N.2546546229 Performed By: #### 2 4323-8 ####GARRY Schmid ([id number])[facility] ([facility])[address] [place] [address] Glucose [Mass/Vol] 253 mg/dL High 74-99 [facility] Comment on above: Performed By: #### 2 4323-8 ####GARRY Schmid ([id number])[facility] ([facility])[address]80 [place] [address] Potassium [Moles/Vol] 4.9 mmol/L Normal 3.5-5.3 [facility] Comment on above: Performed By: #### 2 4323-8 ####GARRY Schmid ([id number])[facility] ([facility])[address]05 [place] [address] Protein [Mass/Vol] 5.1 g/dL Low 6.4-8.2 [facility] Comment on above: Performed By: #### 2 4323-8 ####GARRY Schmid (06655)[facility] ([facility])[address]14 [place] [address] Sodium [Moles/Vol] 135 mmol/L Low 136-145 [facility] Comment on above: Performed By: #### 2 4323-8 ####GARRY Schmid ([id number])[facility] ([facility])[address]690 [place] [address] Urea nitrogen [Mass/Vol] 7 mg/dL Normal - [facility] Comment on above: Performed By: #### 2 4323-8 ####GARRY Schmid (41546)[facility] ([facility])[address] [place] [address] Glucose Test strip manual (B ld) [Mass/Vol]on 10-26-2023 Glucose [Mass/Vol] 130 mg/dL High [address] [place] [address] Comment on above: Performed By: #### 2 341-6 ####GARRY Schmid (62234)[facility] ([facility])[address]60 [place] [address] Glucose [Mass/Vol] 200 mg/dL High [address] [place] [address] Comment on above: Performed By: #### 2 341-6 ####GARRY PEREZ L (59311)[facility] ([facility])[address]677 [place] [address] Glucose [Mass/Vol] 132 mg/dL High [address] [place] [address] Comment on above: Performed By: #### 2 341-6 ####GARRY PEREZ L ([id number])[facility] ([facility])[address]341 [place] [address] Glucose [Mass/Vol] 193 mg/dL High [address] [place] [address] Comment on above: Performed By: #### 2 341-6 ####GARRY PEREZ L ([id number])[facility] ([facility])[address]660 [place] [address] Glucose [Mass/Vol] 300 mg/dL High [address] [place] [address] Comment on above: Performed By: #### 2 341-6 ####GARRY NGMOTZLEIGH L ([id number])[facility] ([facility])[address] [place] [address] Glucose [Mass/Vol] 403 mg/dL High 74-99 [facility] Comment on above: Performed By: #### 2 341-6 ####GARRY Schmid ([id number])[facility] ([facility])[address]253 [place] [address] Glucose [Mass/Vol] 241 mg/dL High 74-99 [facility] Comment on above: Performed By: #### 2 341-6 ####GARRY Schmid ([id number])[facility] ([facility])[address]163 [place] [address] Magnesiumon 10-26-2023 Magnesium [Mass/Vol] 2.37 mg/dL Normal 1.60-2.40 [facility] Comment on above: Performed By: #### 1 9123-9 ####GARRY Schmid ([id number])[facility] ([facility])[address]269 [place] [address] CBC panel Auto (Bld)on 10-25 Erythrocyte distribution width (RBC) [Ratio] 15.5 % High 11.5-14.5 [facility] Comment on above: Performed By: #### 5 8410-2 ####GARRY Schmid ([id number])[facility] ([facility])[address]23 [place] [address] Hematocrit (Bld) [Volume fraction] 23.5 % Low 36.0-46.0 [facility] Comment on above: Performed By: #### 5 8410-2 ####GARRY Schmid ([id number])[facility] ([facility])[address]36 [place] [address] Hemoglobin (Bld) [Mass/Vol] 7.7 g/dL Low 12.0-16.0 [facility] Comment on above: Performed By: #### 5 8410-2 ####GARRY Schmid ([id number])[facility] ([facility])[address]335 [place] [address] MCH (RBC) [Entitic mass] 30.9 pg Normal 26.0-34.0 [facility] Comment on above: Performed By: #### 5 8410-2 ####GARRY Schmid (60739)[facility] ([facility])[address]907 [place] [address] MCHC (RBC) [Mass/Vol] 32.8 g/dL Normal 32.0-36.0 [facility] Comment on above: Performed By: #### 5 8410-2 ####GARRY Schmid ([id number])[facility] ([facility])[address]90 [place] [address] MCV (RBC) [Entitic vol] 94 fL Normal 80-100 [facility] Comment on above: Performed By: #### 5 8410-2 ####GARRY Schmid ([id number])[facility] ([facility])[address]371 [place] [address] Nucleated RBC/100 WBC (Bld) [Ratio] 0.4 /100 WBCs High 0.0-0.0 [facility] Comment on above: Performed By: #### 5 8410-2 ####GARRY Schmid ([id number])[facility] ([facility])[address]66 [place] [address] Platelets (Bld) [#/Vol] 924 x10*3/uL High 150-450 [facility] Comment on above: Performed By: #### 5 8410-2 ####GARRY Schmid ([id number])[facility] ([facility])[address]451 [place] [address] RBC (Bld) [#/Vol] 2.49 x10*6/uL Low 4.00-5.20 [facility] Comment on above: Performed By: #### 5 8410-2 ####GARRY Schmid ([id number])[facility] ([facility])[address]60 [place] [address] WBC (Bld) [#/Vol] 15.9 x10*3/uL High 4.4-11.3 [facility] Comment on above: Performed By: #### 5 8410-2 ####GARRY Schmid ([id number])[facility] ([facility])[address] [place] [address] John 10-25-2023 CNPN Refill ([facility]) -------- JULIETH SPENCER ([id number]) 1985 F Date Time Provider Department 10/25/23 RAMOS PAREKH [facility] During your visit today, we recorded the following information about you: Teresa Carias 10/25/2023 4:47 PM Signed Received call from patient who calls office. Regarding refills for oxycodone 15 mg tablets /Hydromorphone 8 mg tablets and Protonix 40 mg tablets . and patient stated she is currently at Please call [phone] Raffi Castro RN 10/25/2023 4:52 PM Signed Next visit 11/08/23 Patient phones requesting refills as follows: Requested Prescriptions Pending Prescriptions Disp Refills oxyCODONE (ROXICODONE) 15 mg immediate release tablet 180 tablet 0 Sig: Take 1 tablet by mouth every 4 hours as needed for pain for up to 30 days. HYDROmorphone (EXALGO) 8 mg ER tablet 60 tablet 0 Sig: Take 1 tablet by mouth two times a day for [address] (PROTONIX) 40 mg tablet 30 tablet 0 Sig: Take 1 tablet by mouth once daily. Please review and advise. KISHA Heaton Calvin, MD 10/28/2023 11:03 AM Signed If she's getting discharged from the hospital soon, could we please get her a follow up appointment with me DALTON? 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 - HYDROmorphone (EXALGO) 8 mg ER tablet Take 1 tablet by mouth two times a day for 30 days. - pantoprazole DR (PROTONIX) 40 mg tablet Take 1 tablet by mouth once daily. - LORazepam (ATIVAN) 0.5 mg Take 0.5 mg by mouth two times a day. - cariprazine (VRAYLAR) 1.5 mg capsule Take 1.5 mg by mouth once daily. - atomoxetine (STRATTERA) 60 mg capsule Take 60 mg by mouth once daily. - acyclovir (ZOVIRAX) 400 mg tablet Take 400 mg by mouth. - VRAYLAR 1.5 mg capsule Take 1 capsule by mouth every afternoon. - cloNIDine HCl (CATAPRES) 0.1 mg tablet Take 0.1 mg by mouth daily at bedtime. - AUVELITY 45-105 mg tablet Take 1 tablet by mouth every afternoon. - insulin lispro (HUMALOG KWIKPEN) 100 unit/mL Inject subcutaneously. - HUMALOG KWIKPEN INSULIN 100 unit/mL 1:30 ICR 3 TIMES A DAY BEFORE MEALS. CORRCTIVE SCALE 1:50 BEFORE MEALS - loperamide HCl (IMODIUM) 2 mg tab Take by mouth. - LORazepam (ATIVAN) 0.5 mg Take 1 tablet by mouth every 12 hours. - Mirtazapine (REMERON) 7.5 mg tablet Take 7.5 mg by mouth daily at bedtime. - promethazine (PHENERGAN) 25 mg tablet Take 1 tablet by mouth every 6 hours as needed. - dzddcq-swtatrar-hekhqay (CREON) 36,000-114,000- 180,000 unit delayed release capsule Take 2 capsules by mouth three times daily before meals. - adalimumab (HUMIRA) 40 mg/0.8 mL injection Inject 0.8 mL subcutaneously every 2 weeks. - busPIRone (BUSPAR) 10 mg tablet Take 10 mg by mouth twice daily. - traZODone (DESYREL) 100 mg tablet Take 100 mg by mouth daily at bedtime. - cyanocobalamin, vitamin B-12, 3,000 mcg cap Take 1 capsule by mouth once every month. - cholecalciferol (VITAMIN D3) 1,000 unit tab tablet Take 1,000 Units by mouth once daily. - DULoxetine (CYMBALTA) 60 mg capsule Take 60 mg by mouth once daily. - gabapentin (NEURONTIN) 800 mg tablet Take 800 mg by mouth three times daily. - BAQSIMI 3 mg/actuation nasal spray Use 1 [place] in the nose as needed. - insulin glargine (LANTUS SOLOSTAR, BASAGLAR KWIKPEN) 100 unit/mL (3 mL) Inject 20 Units subcutaneously q 24 HR. - sucralfate (CARAFATE) 1 gram tablet Take 1 g by mouth four times daily. - hyoscyamine SR (LEVBID) 0.375 mg 12 hr tablet Take 1 tablet by mouth q 12 HR. - acetaminophen (TYLENOL) 325 mg tablet Take 2 tablets by mouth every 6 hours as needed (Temp greater than 38.5C). 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 Normal [facility] metabolic 2000 panelon 10-25-2023 Albumin BCP dye [Mass/Vol] 2.1 g/dL Low 3.4-5.0 [facility] Comment on above: Performed By: #### 2 4323-8 ####GARRY Schmid ([id number])[facility] ([facility])[address] [place] [address] ALP [Catalytic activity/Vol] 104 U/L Normal 33-110 [facility] Comment on above: Performed By: #### 2 4323-8 ####GARRY Schmid ([id number])[facility] ([facility])[address] [place] [address] ALT With P-5'-P [Catalytic activity/Vol] 7 U/L Normal 7-45 [facility] Comment on above: Result Comment: Gianna ents treated with Sulfasalazine may generate falsely decreased results for ALT. Performed By: #### 2 4323-8 ####GARRY Schmid ([id number])[facility] ([facility])[address] [place] [address] Anion gap [Moles/Vol] 12 mmol/L Normal 10-20 [facility] Comment on above: Performed By: #### 2 4323-8 ####GARRY Schmid ([id number])[facility] ([facility])[address] [place] [address] AST With P-5'-P [Catalytic activity/Vol] 12 U/L Normal 9-39 [facility] Comment on above: Performed By: #### 2 4323-8 ####GARRY Schmid ([id number])[facility] ([facility])[address] [place] [address] Bilirubin [Mass/Vol] 0.1 mg/dL Normal 0.0-1.2 [facility] Comment on above: Performed By: #### 2 4323-8 ####GARRY Schmid ([id number])[facility] ([facility])[address] [place] [address] Calcium [Mass/Vol] 7.5 mg/dL Low 8.6-10.6 [facility] Comment on above: Performed By: #### 2 4323-8 ####GARRY Schmid ([id number])DEPARTMENT OF [facility] ([facility])[address] [place] [address] Chloride [Moles/Vol] 98 mmol/L Normal 98-107 [facility] Comment on above: Performed By: #### 2 4323-8 ####GARRY Schmid ([id number])[facility] ([facility])[address] [place] [address] CO2 [Moles/Vol] 29 mmol/L Normal 21-32 [facility] Comment on above: Performed By: #### 2 4323-8 ####GARRY Schmid ([id number])[facility] ([facility])[address] [place] [address] Creatinine [Mass/Vol] 0.82 mg/dL Normal 0.50-1.05 [facility] Comment on above: Performed By: #### 2 4323-8 ####GARRY Schmid ([id number])[facility] ([facility])[address] [place] [address] GFR/1.73 sq M.predicted MDRD (S/P/Bld) [Vol rate/Area] mL/min/{1.73_m2} Normal >60 [facility] Comment on above: Result Comment: Calc ulations of estimated GFR are performed using the 2020 CKD-EPI Study Refit equation without the race variable for the IDMS-Traceable creatinine methods.https://jasn.asnjournals.org/content// N.7368223972 Performed By: #### 2 4323-8 ####GARRY Schmid ([id number])[facility] ([facility])[address] [place] [address] Glucose [Mass/Vol] 269 mg/dL High 74-99 [facility] Comment on above: Performed By: #### 2 4323-8 ####GARRY Schmid ([id number])[facility] ([facility])[address] [place] [address] Potassium [Moles/Vol] 4.3 mmol/L Normal 3.5-5.3 [facility] Comment on above: Performed By: #### 2 4323-8 ####GARRY Schmid (93068)[facility] ([facility])[address] [place] [address] Protein [Mass/Vol] 5.0 g/dL Low 6.4-8.2 [facility] Comment on above: Performed By: #### 2 4323-8 ####GARRY Schmid ([id number])[facility] ([facility])[address] [place] [address] Sodium [Moles/Vol] 135 mmol/L Low 136-145 [facility] Comment on above: Performed By: #### 2 4323-8 ####GARRY Schmid ([id number])[facility] ([facility])[address] [place] [address] Urea nitrogen [Mass/Vol] 7 mg/dL Normal 6-23 [facility] Comment on above: Performed By: #### 2 4323-8 ####GARRY Schmid (73725)[facility] ([facility])[address] [place] [address] Glucose Test strip manual (B ld) [Mass/Vol]on 10-25-2023 Glucose [Mass/Vol] 158 mg/dL High 74-99 [facility] Comment on above: Performed By: #### 2 341-6 ####GARRY Schmid ([id number])[facility] ([facility])[address] [place] [address] Glucose [Mass/Vol] 140 mg/dL High 74-99 [facility] Comment on above: Performed By: #### 2 341-6 ####GARRY Schmid ([id number])[facility] ([facility])[address] [place] [address] Glucose [Mass/Vol] 224 mg/dL High 74-99 [facility] Comment on above: Performed By: #### 2 341-6 ####GARRY Schmid ([id number])[facility] ([facility])[address] [place] [address] Glucose [Mass/Vol] 250 mg/dL High 74-99 [facility] Comment on above: Performed By: #### 2 341-6 ####GARRY Schmid ([id number])[facility] ([facility])[address] [place] [address] Glucose [Mass/Vol] 158 mg/dL High 74-99 [facility] Comment on above: Performed By: #### 2 341-6 ####GARRY Schmid ([id number])[facility] ([facility])[address] [place] [address] Magnesiumon 10-25-2023 Magnesium [Mass/Vol] 2.21 mg/dL Normal 1.60-2.40 [facility] Comment on above: Performed By: #### 1 9123-9 ####GARRY Schmid ([id number])[facility] ([facility])[address] [place] [address] CBC panel Auto (Bld)on 10-24 Erythrocyte distribution width (RBC) [Ratio] 15.7 % High 11.5-14.5 [facility] Comment on above: Performed By: #### 5 8410-2 ####GARRY Schmid ([id number])[facility] ([facility])[address] [place] [address] Hematocrit (Bld) [Volume fraction] 24.8 % Low 36.0-46.0 [facility] Comment on above: Performed By: #### 5 8410-2 ####GARRY Schmid ([id number])[facility] ([facility])[address] [place] [address] Hemoglobin (Bld) [Mass/Vol] 8.3 g/dL Low 12.0-16.0 [facility] Comment on above: Performed By: #### 5 8410-2 ####GARRY Schmid (13904)[facility] ([facility])[address] [place] [address] MCH (RBC) [Entitic mass] 30.7 pg Normal 26.0-34.0 [facility] Comment on above: Performed By: #### 5 8410-2 ####GARRY Schmid ([id number])[facility] ([facility])[address] [place] [address] MCHC (RBC) [Mass/Vol] 33.5 g/dL Normal 32.0-36.0 [facility] Comment on above: Performed By: #### 5 8410-2 ####GARRY Schmid ([id number])[facility] ([facility])[address] [place] [address] MCV (RBC) [Entitic vol] 92 fL Normal 80-100 [facility] Comment on above: Performed By: #### 5 8410-2 ####GARRY Schmid ([id number])[facility] ([facility])[address] [place] [address] Nucleated RBC/100 WBC (Bld) [Ratio] 0.9 /100 WBCs High 0.0-0.0 [facility] Comment on above: Performed By: #### 5 8410-2 ####GARRY Schmid ([id number])[facility] ([facility])[address] [place] [address] Platelets (Bld) [#/Vol] 856 x10*3/uL High 150-450 [facility] Comment on above: Performed By: #### 5 8410-2 ####GARRY Schmid (77025)[facility] ([facility])[address] [place] [address] RBC (Bld) [#/Vol] 2.70 x10*6/uL Low 4.00-5.20 [facility] Comment on above: Performed By: #### 5 8410-2 ####GARRY Schmid (75524)[facility] ([facility])[address] [place] [address] WBC (Bld) [#/Vol] 14.1 x10*3/uL High 4.4-11.3 [facility] Comment on above: Performed By: #### 5 8410-2 ####GARRY Schmid ([id number])[facility] ([facility])[address] [place] [address] ABDOMEN PELVIS W IV CONTR Iris 10-24-2023 CT ABDOMEN PELVIS W IV CONTRAST Normal [facility] Comprehensive metabolic 2000 panelon 10-24-2023 Albumin BCP dye [Mass/Vol] 2.2 g/dL Low 3.4-5.0 [facility] Comment on above: Performed By: #### 2 4323-8 ####GARRY Schmid ([id number])[facility] ([facility])[address] [place] [address] ALP [Catalytic activity/Vol] 109 U/L Normal 33-110 [facility] Comment on above: Performed By: #### 2 4323-8 ####GARRY Schmid ([id number])[facility] ([facility])[address] [place] [address] ALT With P-5'-P [Catalytic activity/Vol] 8 U/L Normal 7-45 [facility] Comment on above: Result Comment: Gianna ents treated with Sulfasalazine may generate falsely decreased results for ALT. Performed By: #### 2 4323-8 ####GARRY Schmid ([id number])[facility] ([facility])[address] [place] [address] Anion gap [Moles/Vol] 11 mmol/L Normal 10-20 [facility] Comment on above: Performed By: #### 2 4323-8 ####GARRY Schmid ([id number])[facility] ([facility])[address] [place] [address] AST With P-5'-P [Catalytic activity/Vol] 10 U/L Normal 9-39 [facility] Comment on above: Performed By: #### 2 4323-8 ####GARRY Schmid ([id number])[facility] ([facility])[address] [place] [address] Bilirubin [Mass/Vol] 0.2 mg/dL Normal 0.0-1.2 [facility] Comment on above: Performed By: #### 2 4323-8 ####GARRY Schmid (66346)[facility] ([facility])[address] [place] [address] Calcium [Mass/Vol] 7.7 mg/dL Low 8.6-10.6 [facility] Comment on above: Performed By: #### 2 4323-8 ####GARRY Schmid (56700)[facility] ([facility])[address] [place] [address] Chloride [Moles/Vol] 100 mmol/L Normal 98-107 [facility] Comment on above: Performed By: #### 2 4323-8 ####GARRY Schmid (29011)[facility] ([facility])[address] [place] [address] CO2 [Moles/Vol] 32 mmol/L Normal 21-32 [facility] Comment on above: Performed By: #### 2 4323-8 ####GARRY Schmid ([id number])[facility] ([facility])[address] [place] [address] Creatinine [Mass/Vol] 0.65 mg/dL Normal 0.50-1.05 [facility] Comment on above: Performed By: #### 2 4323-8 ####GARRY Schmid ([id number])[facility] ([facility])[address] [place] [address] GFR/1.73 sq M.predicted MDRD (S/P/Bld) [Vol rate/Area] mL/min/{1.73_m2} Normal >60 [facility] Comment on above: Result Comment: Calc ulations of estimated GFR are performed using the 2020 CKD-EPI Study Refit equation without the race variable for the IDMS-Traceable creatinine methods.https://jasn.asnjournals.org/content/early/ N.7326118495 Performed By: #### 2 4323-8 ####GARRY PEREZ L (03969)[facility] ([facility])[address] [place] [address] Glucose [Mass/Vol] 200 mg/dL High 74-99 [facility] Comment on above: Performed By: #### 2 4323-8 ####GARRY PEREZ L (29848)[facility] ([facility])[address] [place] [address] Potassium [Moles/Vol] 4.3 mmol/L Normal 3.5-5.3 [facility] Comment on above: Performed By: #### 2 4323-8 ####GARRY NGMOTZER L (21158)[facility] ([facility])[address] [place] [address] Protein [Mass/Vol] 5.0 g/dL Low 6.4-8.2 [facility] Comment on above: Performed By: #### 2 4323-8 ####GARRY NGMOTZER L (46798)[facility] ([facility])[address]35 [place] [address] Sodium [Moles/Vol] 139 mmol/L Normal 136-145 [facility] Comment on above: Performed By: #### 2 4323-8 ####GARRY NGMOTZER L ([id number])[facility] ([facility])[address]69 [place] [address] Urea nitrogen [Mass/Vol] 7 mg/dL Normal 6-23 [facility] Comment on above: Performed By: #### 2 4323-8 ####GARRY NGMOTZER L ([id number])[facility] ([facility])[address] [place] [address] Glucose Test strip manual (B ld) [Mass/Vol]on 10-24-2023 Glucose [Mass/Vol] 125 mg/dL High [address] [place] [address] Comment on above: Performed By: #### 2 341-6 ####GARRY Schmid ([id number])[facility] ([facility])[address] [place] [address] Glucose [Mass/Vol] 190 mg/dL High -[address] [place] [address] Comment on above: Performed By: #### 2 341-6 ####GARRY Schmid (83098)[facility] ([facility])[address] [place] [address] Glucose [Mass/Vol] 97 mg/dL Normal -[address] [place] [address] Comment on above: Performed By: #### 2 341-6 ####GARRY Schmid ([id number])[facility] ([facility])[address] [place] [address] Glucose [Mass/Vol] 83 mg/dL Normal -[address] [place] [address] Comment on above: Performed By: #### 2 341-6 ####GARRY Schmid (21907)[facility] ([facility])[address] [place] [address] Glucose [Mass/Vol] 292 mg/dL High [address] [place] [address] Comment on above: Performed By: #### 2 341-6 ####GARRY Schmid (38525)[facility] ([facility])[address] [place] [address] Magnesiumon 10-24-2023 Magnesium [Mass/Vol] 2.21 mg/dL Normal 1.60-2.40 [facility] Comment on above: Performed By: #### 1 9123-9 ####GARRY Schmid (04400)[facility] ([facility])[address] [place] [address] Vancomycin^troughon 10-24-19 24 Vancomycin trough [Mass/Vol] 23.9 ug/mL Critically high 5.0-20.0 [facility] Comment on above: Result Comment: Ther apeutic Ranges: Peak (all ages): 30.0-40.0 ug/mL Trough (all ages): 10.0-20.0 ug/mLVancomycin trough concentrations drawn immediately prior to the next dose at steady-state are preferred for concentration-guided monitoring of patients treated with vancomycin.Reference: Am J Health-Syst Pharm. 2020; 77(11):835-864. Performed By: #### 4 092-3 ####GARRY Schmid (65498)[facility] ([facility])[address] [place] [address] CBC panel Auto (Bld)on 10-23 Erythrocyte distribution width (RBC) [Ratio] 15.4 % High 11.5-14.5 [facility] Comment on above: Performed By: #### 5 8410-2 ####GARRY Schmid ([id number])[facility] ([facility])[address] [place] [address] Hematocrit (Bld) [Volume fraction] 23.1 % Low 36.0-46.0 [facility] Comment on above: Performed By: #### 5 8410-2 ####GARRY Schmid (91937)[facility] ([facility])[address] [place] [address] Hemoglobin (Bld) [Mass/Vol] 7.8 g/dL Low 12.0-16.0 [facility] Comment on above: Performed By: #### 5 8410-2 ####GARRY Schmid (68285)[facility] ([facility])[address] [place] [address] MCH (RBC) [Entitic mass] 30.7 pg Normal 26.0-34.0 [facility] Comment on above: Performed By: #### 5 8410-2 ####GARRY Schmid (06086)[facility] ([facility])[address]878 [place] [address] MCHC (RBC) [Mass/Vol] 33.8 g/dL Normal 32.0-36.0 [facility] Comment on above: Performed By: #### 5 8410-2 ####GARRY Schmid ([id number])[facility] ([facility])[address]37 [place] [address] MCV (RBC) [Entitic vol] 91 fL Normal 80-100 [facility] Comment on above: Performed By: #### 5 8410-2 ####GARRY Schmid (77359)[facility] ([facility])[address]47 [place] [address] Nucleated RBC/100 WBC (Bld) [Ratio] 1.4 /100 WBCs High 0.0-0.0 [facility] Comment on above: Performed By: #### 5 8410-2 ####GARRY Schmid (71496)[facility] ([facility])[address]22 [place] [address] Platelets (Bld) [#/Vol] 749 x10*3/uL High 150-450 [facility] Comment on above: Performed By: #### 5 8410-2 ####GARRY Schmid (22584)[facility] ([facility])[address]346 [place] [address] RBC (Bld) [#/Vol] 2.54 x10*6/uL Low 4.00-5.20 [facility] Comment on above: Performed By: #### 5 8410-2 ####GARRY Schmid ([id number])[facility] ([facility])[address]5 [place] [address] WBC (Bld) [#/Vol] 16.2 x10*3/uL High 4.4-11.3 [facility] Comment on above: Performed By: #### 5 8410-2 ####GARRY Schmid (19603)[facility] ([facility])[address]907 [place] [address] Comprehensive metabolic 2000 panelon 10-23-2023 Albumin BCP dye [Mass/Vol] 2.0 g/dL Low 3.4-5.0 [facility] Comment on above: Performed By: #### 2 4323-8 ####GARRY Schmid (24909)[facility] ([facility])[address]991 [place] [address] ALP [Catalytic activity/Vol] 121 U/L High 33-110 [facility] Comment on above: Performed By: #### 2 4323-8 ####GARRY Schmid (48895)[facility] ([facility])[address]88 [place] [address] ALT With P-5'-P [Catalytic activity/Vol] 10 U/L Normal 7-45 [facility] Comment on above: Result Comment: Gianna ents treated with Sulfasalazine may generate falsely decreased results for ALT. Performed By: #### 2 4323-8 ####GARRY Schmid (97946)[facility] ([facility])[address]45 [place] [address] Anion gap [Moles/Vol] 13 mmol/L Normal 10-20 [facility] Comment on above: Performed By: #### 2 4323-8 ####GARRY Schmid (53342)[facility] ([facility])[address]15 [place] [address] AST With P-5'-P [Catalytic activity/Vol] 12 U/L Normal 9-39 [facility] Comment on above: Performed By: #### 2 4323-8 ####GARRY Schmid (74529)[facility] ([facility])[address]28 [place] [address] Bilirubin [Mass/Vol] 0.1 mg/dL Normal 0.0-1.2 [facility] Comment on above: Performed By: #### 2 4323-8 ####GARRY Schmid (23030)[facility] ([facility])[address]65 [place] [address] Calcium [Mass/Vol] 7.6 mg/dL Low 8.6-10.6 [facility] Comment on above: Performed By: #### 2 4323-8 ####GARRY Schmid (74222)[facility] ([facility])[address]95 [place] [address] Chloride [Moles/Vol] 101 mmol/L Normal 98-107 [facility] Comment on above: Performed By: #### 2 4323-8 ####GARRY PEREZ L (46902)[facility] ([facility])[address]350 [place] [address] CO2 [Moles/Vol] 29 mmol/L Normal 21-32 [facility] Comment on above: Performed By: #### 2 4323-8 ####GARRY Schmid ([id number])[facility] ([facility])[address]202 [place] [address] Creatinine [Mass/Vol] 0.68 mg/dL Normal 0.50-1.05 [facility] Comment on above: Performed By: #### 2 4323-8 ####GARRY Schmid (07255)[facility] ([facility])[address]56 [place] [address] GFR/1.73 sq M.predicted MDRD (S/P/Bld) [Vol rate/Area] mL/min/{1.73_m2} Normal >60 [facility] Comment on above: Result Comment: Calc ulations of estimated GFR are performed using the 2020 CKD-EPI Study Refit equation without the race variable for the IDMS-Traceable creatinine methods.https://jasn.asnjournals.org/content/early// N.[id number] Performed By: #### 2 4323-8 ####GARRY Schmid ([id number])[facility] ([facility])[address]15 [place] [address] Glucose [Mass/Vol] 157 mg/dL High 74-99 [facility] Comment on above: Performed By: #### 2 4323-8 ####GARRY Schmid (41719)[facility] ([facility])11942 [place] [address] Potassium [Moles/Vol] 4.6 mmol/L Normal 3.5-5.3 [facility] Comment on above: Performed By: #### 2 4323-8 ####GARRY Schmid (69877)[facility] ([facility])[address] [facility] [address] Protein [Mass/Vol] 4.4 g/dL Low 6.4-8.2 [facility] Comment on above: Performed By: #### 2 4323-8 ####GARRY Schmid (38254)[facility] ([facility])[address]348 [place] [address] Sodium [Moles/Vol] 138 mmol/L Normal 136-145 [facility] Comment on above: Performed By: #### 2 4323-8 ####GARRY Schmid (83050)[facility] ([facility])[address]641 [place] [address] Urea nitrogen [Mass/Vol] 8 mg/dL Normal 6-23 [facility] Comment on above: Performed By: #### 2 4323-8 ####GARRY Schmid (40346)[facility] ([facility])[address]78 [place] [address] Glucose Test strip manual (B ld) [Mass/Vol]on 10-23-2023 Glucose [Mass/Vol] 195 mg/dL High 74-99 [facility] Comment on above: Performed By: #### 2 341-6 ####GARRY Schmid (64914)[facility] ([facility])[address]10 [place] [address] Glucose [Mass/Vol] 163 mg/dL High 74-99 [facility] Comment on above: Performed By: #### 2 341-6 ####GARRY Schmid ([id number])[facility] ([facility])[address]34 [place] [address] Glucose [Mass/Vol] 383 mg/dL High [address] Comment on above: Performed By: #### 2 341-6 ####GARRY Schmid (79129)[facility] ([facility])[address] [place] [address] Glucose [Mass/Vol] 211 mg/dL High [address] [place] [address] Comment on above: Performed By: #### 2 341-6 ####GARRY Schmid ([id number])[facility] ([facility])[address] [place] [address] Glucose [Mass/Vol] 198 mg/dL High [address] [place] [address] Comment on above: Performed By: #### 2 341-6 ####GARRY Schmid ([id number])[facility] ([facility])[id number] [place] [address] 52499 Glucose [Mass/Vol] 220 mg/dL High [address] [place] [address] Comment on above: Performed By: #### 2 341-6 ####GARRY Schmid ([id number])[facility] ([facility])[address] [place] [address] 25876 Glucose [Mass/Vol] 210 mg/dL High [address] [place] [address] Comment on above: Performed By: #### 2 341-6 ####GARRY Schmid ([id number])[facility] ([facility])[id number] [place] [address] 65426 Magnesiumon 10-23-2023 Magnesium [Mass/Vol] 2.47 mg/dL High 1.60-2.40 [facility] Comment on above: Performed By: #### 1 9123-9 ####GARRY Schmid ([id number])[facility] ([facility])[id number] [place] [address] 91895 CBC panel Auto (Bld)on 10-22 Erythrocyte distribution width (RBC) [Ratio] 15.0 % High 11.5-14.5 [facility] Comment on above: Performed By: #### 5 8410-2 ####GARRY Schmid ([id number])[facility] ([facility])[address] [place] [address] Hematocrit (Bld) [Volume fraction] 24.7 % Low 36.0-46.0 [facility] Comment on above: Performed By: #### 5 8410-2 ####GARRY Schmid ([id number])[facility] ([facility])[address] [place] [address] 51776 Hemoglobin (Bld) [Mass/Vol] 8.3 g/dL Low 12.0-16.0 [facility] Comment on above: Performed By: #### 5 8410-2 ####GARRY Schmid ([id number])[facility] ([facility])[address] [place] [address] 54610 MCH (RBC) [Entitic mass] 30.9 pg Normal 26.0-34.0 [facility] Comment on above: Performed By: #### 5 8410-2 ####GARRY Schmid ([id number])[facility] ([facility])[address] [place] [address] 64827 MCHC (RBC) [Mass/Vol] 33.6 g/dL Normal 32.0-36.0 [facility] Comment on above: Performed By: #### 5 8410-2 ####GARRY Schmid ([id number])[facility] ([facility])[address] [place] [address] 84887 MCV (RBC) [Entitic vol] 92 fL Normal 80-100 [facility] Comment on above: Performed By: #### 5 8410-2 ####GARRY Schmid ([id number])[facility] ([facility])[address] [place] [address] 96018 Nucleated RBC/100 WBC (Bld) [Ratio] 0.8 /100 WBCs High 0.0-0.0 [facility] Comment on above: Performed By: #### 5 8410-2 ####GARRY Schmid ([id number])[facility] ([facility])[address] [place] [address] Platelets (Bld) [#/Vol] 704 x10*3/uL High 150-450 [facility] Comment on above: Performed By: #### 5 8410-2 ####GARRY Schmid (58876)[facility] ([facility])[address] [place] [address] RBC (Bld) [#/Vol] 2.69 x10*6/uL Low 4.00-5.20 [facility] Comment on above: Performed By: #### 5 8410-2 ####GARRY Schmid ([id number])[facility] ([facility])[address] [place] [address] WBC (Bld) [#/Vol] 18.0 x10*3/uL High 4.4-11.3 [facility] Comment on above: Performed By: #### 5 8410-2 ####GARRY Schmid ([id number])[facility] ([facility])[address] [place] [address] CT CHEST ABDOMEN PELVIS W IV CONTRASTon 10-22-2023 CT CHEST ABDOMEN PELVIS W IV CONTRAST Normal [facility] Comprehensive metabolic 2000 panelon 10-22-2023 Albumin BCP dye [Mass/Vol] 2.0 g/dL Low 3.4-5.0 [facility] Comment on above: Performed By: #### 2 4323-8 ####GARRY Schmid ([id number])[facility] ([facility])[address] [place] [address] ALP [Catalytic activity/Vol] 111 U/L High 33-110 [facility] Comment on above: Performed By: #### 2 4323-8 ####GARRY Schmid ([id number])[facility] ([facility])[address] [place] [address] ALT With P-5'-P [Catalytic activity/Vol] 13 U/L Normal 7-45 [facility] Comment on above: Result Comment: Gianna ents treated with Sulfasalazine may generate falsely decreased results for ALT. Performed By: #### 2 4323-8 ####GARRY Schmid ([id number])[facility] ([facility])[address] [place] [address] Anion gap [Moles/Vol] 7 mmol/L Low 10-20 [facility] Comment on above: Performed By: #### 2 4323-8 ####GARRY Schmid ([id number])[facility] ([facility])[address] [place] [address] AST With P-5'-P [Catalytic activity/Vol] 14 U/L Normal 9-39 [facility] Comment on above: Performed By: #### 2 4323-8 ####GARRY Schmid ([id number])[facility] ([facility])[address] [place] [address] Bilirubin [Mass/Vol] 0.2 mg/dL Normal 0.0-1.2 [facility] Comment on above: Performed By: #### 2 4323-8 ####GARRY Schmid ([id number])[facility] ([facility])[address] [place] [address] Calcium [Mass/Vol] 7.2 mg/dL Low 8.6-10.6 [facility] Comment on above: Performed By: #### 2 4323-8 ####GARRY Schmid ([id number])[facility] ([facility])[address] [place] [address] Chloride [Moles/Vol] 102 mmol/L Normal 98-107 [facility] Comment on above: Performed By: #### 2 4323-8 ####GARRY Schmid ([id number])[facility] ([facility])[address] [place] [address] CO2 [Moles/Vol] 32 mmol/L Normal 21-32 [facility] Comment on above: Performed By: #### 2 4323-8 ####GARRY Shcmid ([id number])[facility] ([facility])[address] [place] [address] Creatinine [Mass/Vol] 0.59 mg/dL Normal 0.50-1.05 [facility] Comment on above: Performed By: #### 2 4323-8 ####GARRY Schmid ([id number])[facility] ([facility])[address] [place] [address] GFR/1.73 sq M.predicted MDRD (S/P/Bld) [Vol rate/Area] mL/min/{1.73_m2} Normal >60 [facility] Comment on above: Result Comment: Calc ulations of estimated GFR are performed using the 2020 CKD-EPI Study Refit equation without the race variable for the IDMS-Traceable creatinine methods.https://jasn.asnjournals.org/content/early// N.1133833047 Performed By: #### 2 4323-8 ####GARRY Schmid ([id number])[facility] ([facility])[address] [place] [address] Glucose [Mass/Vol] 140 mg/dL High 74-99 [facility] Comment on above: Performed By: #### 2 4323-8 ####GARRY PEREZ L ([id number])[facility] ([facility])[address] [place] [address] Potassium [Moles/Vol] 4.1 mmol/L Normal 3.5-5.3 [facility] Comment on above: Performed By: #### 2 4323-8 ####GARRY Schmid ([id number])[facility] ([facility])[address] [place] [address] Protein [Mass/Vol] 4.2 g/dL Low 6.4-8.2 [facility] Comment on above: Performed By: #### 2 4323-8 ####GARRY Schmid ([id number])[facility] ([facility])[address]078 [place] [address] Sodium [Moles/Vol] 137 mmol/L Normal 136-145 [facility] Comment on above: Performed By: #### 2 4323-8 ####GARRY Schmid ([id number])[facility] ([facility])[address]755 [place] [address] Urea nitrogen [Mass/Vol] 9 mg/dL Normal 6-23 [facility] Comment on above: Performed By: #### 2 4323-8 ####GARRY Schmid ([id number])[facility] ([facility])[address]774 [place] [address] Glucose Test strip manual (B ld) [Mass/Vol]on 10-22-2023 Glucose [Mass/Vol] 221 mg/dL High -[address] [place] [address] Comment on above: Performed By: #### 2 341-6 ####GARRY Schmid ([id number])[facility] ([facility])[address] [place] [address] Glucose [Mass/Vol] 182 mg/dL High -[address] [place] [address] Comment on above: Performed By: #### 2 341-6 ####GARRY Schmid (55602)[facility] ([facility])[address]39 [place] [address] Glucose [Mass/Vol] 230 mg/dL High -[address] [place] [address] Comment on above: Performed By: #### 2 341-6 ####GARRY Schmid ([id number])[facility] ([facility])[address]35 [place] [address] Glucose [Mass/Vol] 148 mg/dL High -99 [facility] Comment on above: Performed By: #### 2 341-6 ####GARRY Schmid (47600)[facility] ([facility])[address]52 [place] [address] Glucose [Mass/Vol] 79 mg/dL Normal 74-99 [facility] Comment on above: Performed By: #### 2 341-6 ####GARRY Schmid (43071)[facility] ([facility])[address] [place] [address] Glucose [Mass/Vol] 79 mg/dL Normal 74-99 [facility] Comment on above: Performed By: #### 2 341-6 ####GARRY Schmid (92954)[facility] ([facility])[address]66 [place] [address] Glucose [Mass/Vol] 93 mg/dL Normal 74-99 [facility] Comment on above: Performed By: #### 2 341-6 ####GARRY Schmid (94133)[facility] ([facility])[address]99 [place] [address] Magnesiumon 10-22-2023 Magnesium [Mass/Vol] 1.94 mg/dL Normal 1.60-2.40 [facility] Comment on above: Performed By: #### 1 9123-9 ####GARRY Schmid ([id number])[facility] ([facility])[address]373 [place] [address] PICC >5 YR BEDSIDE IMAGINGon 10-22-2023 PICC >5 YR BEDSIDE IMAGING These images are not reportable by radiology and will not be interpreted by Radiologists. Normal [facility] CBC panel Auto (Bld)on 10-21 Erythrocyte distribution width (RBC) [Ratio] 15.1 % High 11.5-14.5 [facility] Comment on above: Performed By: #### 5 8410-2 ####GARRY Schmid ([id number])[facility] ([facility])[address]109 [place] [address] Hematocrit (Bld) [Volume fraction] 27.6 % Low 36.0-46.0 [facility] Comment on above: Performed By: #### 5 8410-2 ####GARRY Schmid (49068)[facility] ([facility])[address]78 [place] [address] Hemoglobin (Bld) [Mass/Vol] 9.0 g/dL Low 12.0-16.0 [facility] Comment on above: Performed By: #### 5 8410-2 ####GARRY Schmid (92939)[facility] ([facility])[address]69 [place] [address] MCH (RBC) [Entitic mass] 30.7 pg Normal 26.0-34.0 [facility] Comment on above: Performed By: #### 5 8410-2 ####GARRY Schmid (93632)[facility] ([facility])[address] [place] [address] 37974 MCHC (RBC) [Mass/Vol] 32.6 g/dL Normal 32.0-36.0 [facility] Comment on above: Performed By: #### 5 8410-2 ####GARRY Schmid ([id number])[facility] ([facility])[address] [place] [address] 24788 MCV (RBC) [Entitic vol] 94 fL Normal 80-100 [facility] Comment on above: Performed By: #### 5 8410-2 ####GARRY Schmid ([id number])[facility] ([facility])[address] [place] [address] Nucleated RBC/100 WBC (Bld) [Ratio] 0.4 /100 WBCs High 0.0-0.0 [facility] Comment on above: Performed By: #### 5 8410-2 ####GARRY Schmid (26230)[facility] ([facility])[address] [place] [address] 28033 Platelets (Bld) [#/Vol] 698 x10*3/uL High 150-450 [facility] Comment on above: Performed By: #### 5 8410-2 ####GARRY Schmid ([id number])[facility] ([facility])[address] [place] [address] 21453 RBC (Bld) [#/Vol] 2.93 x10*6/uL Low 4.00-5.20 [facility] Comment on above: Performed By: #### 5 8410-2 ####GARRY Schmid (66386)[facility] ([facility])[address]175 [place] [address] WBC (Bld) [#/Vol] 24.0 x10*3/uL High 4.4-11.3 [facility] Comment on above: Performed By: #### 5 8410-2 ####GARRY Schmid (25127)[facility] ([facility])[address]65 [place] [address] Comprehensive metabolic 2000 panelon 10-21-2023 Albumin BCP dye [Mass/Vol] 2.3 g/dL Low 3.4-5.0 [facility] Comment on above: Performed By: #### 2 4323-8 ####GARRY Schmid (61477)[facility] ([facility])[address]30 [place] [address] ALP [Catalytic activity/Vol] 130 U/L High 33-110 [facility] Comment on above: Performed By: #### 2 4323-8 ####GARRY Schmid (55658)[facility] ([facility])[address]779 [place] [address] ALT With P-5'-P [Catalytic activity/Vol] 18 U/L Normal 7-45 [facility] Comment on above: Result Comment: Gianna ents treated with Sulfasalazine may generate falsely decreased results for ALT. Performed By: #### 2 4323-8 ####GARRY Schmid (55990)[facility] ([facility])[address]35 [place] [address] Anion gap [Moles/Vol] 13 mmol/L Normal 10-20 [facility] Comment on above: Performed By: #### 2 4323-8 ####GARRY Schmid (26253)[facility] ([facility])[address]265 [place] [address] AST With P-5'-P [Catalytic activity/Vol] 18 U/L Normal 9-39 [facility] Comment on above: Performed By: #### 2 4323-8 ####GARRY Schmid ([id number])[facility] ([facility])[address]197 [place] [address] Bilirubin [Mass/Vol] 0.2 mg/dL Normal 0.0-1.2 [facility] Comment on above: Performed By: #### 2 4323-8 ####GARRY PEREZ L (09399)[facility] ([facility])[address]92 [place] [address] Calcium [Mass/Vol] 7.8 mg/dL Low 8.6-10.6 [facility] Comment on above: Performed By: #### 2 4323-8 ####GARRY PEREZ L (67373)[facility] ([facility])[address]18 [place] [address] Chloride [Moles/Vol] 97 mmol/L Low 98-107 [facility] Comment on above: Performed By: #### 2 4323-8 ####GARRY PEREZ L (29740)[facility] ([facility])[address] [place] [address] CO2 [Moles/Vol] 30 mmol/L Normal 21-32 [facility] Comment on above: Performed By: #### 2 4323-8 ####GARRY PEREZ L ([id number])[facility] ([facility])[address]86 [place] [address] Creatinine [Mass/Vol] 0.65 mg/dL Normal 0.50-1.05 [facility] Comment on above: Performed By: #### 2 4323-8 ####GARRY SHIRLEYTZER L (57722)[facility] ([facility])[address] [place] [address] GFR/1.73 sq M.predicted MDRD (S/P/Bld) [Vol rate/Area] mL/min/{1.73_m2} Normal >60 [facility] Comment on above: Result Comment: Calc ulations of estimated GFR are performed using the 2020 CKD-EPI Study Refit equation without the race variable for the IDMS-Traceable creatinine methods.https://jasn.asnjournals.org/content// N.3722241231 Performed By: #### 2 4323-8 ####GARRY Schmid ([id number])[facility] ([facility])[address]707 [place] [address] Glucose [Mass/Vol] 302 mg/dL High 74-99 [facility] Comment on above: Performed By: #### 2 4323-8 ####GARRY Schmid ([id number])[facility] ([facility])[address]47 [place] [address] Potassium [Moles/Vol] 4.6 mmol/L Normal 3.5-5.3 [facility] Comment on above: Performed By: #### 2 4323-8 ####GARRY Schmid (75677)[facility] ([facility])[address]206 [place] [address] Protein [Mass/Vol] 4.4 g/dL Low 6.4-8.2 [facility] Comment on above: Performed By: #### 2 4323-8 ####GARRY Schmid (01586)[facility] ([facility])[address]175 [place] [address] Sodium [Moles/Vol] 135 mmol/L Low 136-145 [facility] Comment on above: Performed By: #### 2 4323-8 ####GARRY PEREZ L (40721)[facility] ([facility])[address]49 [place] [address] Urea nitrogen [Mass/Vol] 10 mg/dL Normal 6-23 [facility] Comment on above: Performed By: #### 2 4323-8 ####GARRY PEREZ L (65565)[facility] ([facility])[address]16 [place] [address] Glucose Test strip manual (B ld) [Mass/Vol]on 10-21-2023 Glucose [Mass/Vol] 117 mg/dL High 74-[address] [place] [address] Comment on above: Performed By: #### 2 341-6 ####GARRY Schmid (77331)[facility] ([facility])[address]209 [place] [address] Glucose [Mass/Vol] 100 mg/dL High [address] [place] [address] Comment on above: Performed By: #### 2 341-6 ####GARRY Schmid (89823)[facility] ([facility])[address]103 [place] [address] Glucose [Mass/Vol] 310 mg/dL High [address] [place] [address] Comment on above: Performed By: #### 2 341-6 ####GARRY Schmid ([id number])[facility] ([facility])[address]06 [place] [address] Glucose [Mass/Vol] 380 mg/dL High [address] [place] [address] Comment on above: Performed By: #### 2 341-6 ####GARRY Schmid (89913)[facility] ([facility])[address]393 [place] [address] Glucose [Mass/Vol] 300 mg/dL High [address] [place] [address] Comment on above: Performed By: #### 2 341-6 ####GARRY Schmid (83835)[facility] ([facility])20267 [place] [address] Glucose [Mass/Vol] 328 mg/dL High [address] [place] [address] Comment on above: Performed By: #### 2 341-6 ####GARRY Schmid (25821)[facility] ([facility])[address]32 [place] [address] Glucose [Mass/Vol] 99 mg/dL Normal [address] [place] [address] Comment on above: Performed By: #### 2 341-6 ####GARRY PEREZ L (95992)[facility] ([facility])[address] [place] [address] Magnesiumon 02-05-2024 Magnesium [Mass/Vol] 1.94 mg/dL Normal 1.60-2.40 [facility] Comment on above: Performed By: #### 1 9123-9 ####GARRY Schmid (86030)[facility] ([facility])[address] [place] [address] US GUIDED PERCUTANEOUS PERIT BROWN OR RETROPERITONEAL FLUID COLLECTION DRAINAGEon 10-21-2023 US GUIDED PERCUTANEOUS PERITONEAL OR RETROPERITONEAL FLUID COLLECTION DRAINAGE [facility] Comment on above: Order Comment: Sugshon parnellon is to rewire through the liver or take out and replace drain. On CT scan, drain is not in correct position to drain fluid collection. Vancomycinon 10-21-2023 Vancomycin [Mass/Vol] 13.6 ug/mL Normal 5.0-20.0 [facility] Comment on above: Order Comment: Vanco mycin levels can be monitored according to area under the curve (AUC) or concentration (ug/mL). The preferred monitoring strategy is determined by the patient's renal function and indication for therapy.For AUC monitoring, a random vancomycin level should be interpreted in the context of AUC rather than the concentration at a single point in time.For concentration monitoring, a trough concentration drawn immediately prior to the next dose is preferred.Therapeutic ranges using concentration-guided results:Peak (all ages): 30.0-40.0 ug/mLTrough (all ages): 10.0-20.0 ug/mL Performed By: #### 2 0578-1 ####GARRY Schmid (96581)[facility] ([facility])[address] [place] [address] 278[address] Bacteria identifiedon 2023 Bacteria identified Cx Nom (Bld) [facility] Comment on above: Performed By: #### 6 00-7 ####GARRY Schmid ([id number])[facility] ([facility])[address] [place] [address] 17[address] CBC panel Auto (Bld)on 10-20 Erythrocyte distribution width (RBC) [Ratio] 15.0 % High 11.5-14.5 [facility] Comment on above: Performed By: #### 5 8410-2 ####GARRY Schmid (77442)[facility] ([facility])[address] [place] [address] Hematocrit (Bld) [Volume fraction] 30.2 % Low 36.0-46.0 [facility] Comment on above: Performed By: #### 5 8410-2 ####GARRY Schmid (67966)[facility] ([facility])[address]45 [place] [address] Hemoglobin (Bld) [Mass/Vol] 9.8 g/dL Low 12.0-16.0 [facility] Comment on above: Performed By: #### 5 8410-2 ####GARRY Schmid (05889)[facility] ([facility])[address]555 [place] [address] MCH (RBC) [Entitic mass] 32.1 pg Normal 26.0-34.0 [facility] Comment on above: Performed By: #### 5 8410-2 ####GARRY Schmid (22166)[facility] ([facility])[address]68 [place] [address] MCHC (RBC) [Mass/Vol] 32.5 g/dL Normal 32.0-36.0 [facility] Comment on above: Performed By: #### 5 8410-2 ####GARRY Schmid (76843)[facility] ([facility])[address]267 [place] [address] MCV (RBC) [Entitic vol] 99 fL Normal 80-100 [facility] Comment on above: Performed By: #### 5 8410-2 ####GARRY Schmid ([id number])[facility] ([facility])[address] [place] [address] Nucleated RBC/100 WBC (Bld) [Ratio] 0.2 /100 WBCs High 0.0-0.0 [facility] Comment on above: Performed By: #### 5 8410-2 ####GARRY Schmid (23403)[facility] ([facility])[address]68 [place] [address] Platelets (Bld) [#/Vol] 582 x10*3/uL High 150-450 [facility] Comment on above: Performed By: #### 5 8410-2 ####GARRY Schmid ([id number])[facility] ([facility])[address]71 [place] [address] RBC (Bld) [#/Vol] 3.05 x10*6/uL Low 4.00-5.20 [facility] Comment on above: Performed By: #### 5 8410-2 ####GARRY Schmid (47737)[facility] ([facility])[address]396 [place] [address] WBC (Bld) [#/Vol] 22.9 x10*3/uL High 4.4-11.3 [facility] Comment on above: Performed By: #### 5 8410-2 ####GARRY Schmid ([id number])[facility] ([facility])[address] [place] [address] CT ABDOMEN PELVIS W IV CONTR Iris 10-20-2023 CT ABDOMEN PELVIS W IV CONTRAST Normal [facility] Comprehensive metabolic 2000 panelon 10-20-2023 Albumin BCP dye [Mass/Vol] 2.2 g/dL Low 3.4-5.0 [facility] Comment on above: Performed By: #### 2 4323-8 ####GARRY Schmid ([id number])[facility] ([facility])[address] [place] [address] ALP [Catalytic activity/Vol] 111 U/L High 33-110 [facility] Comment on above: Performed By: #### 2 4323-8 ####GARRY Schmid ([id number])[facility] ([facility])[address] [place] [address] ALT With P-5'-P [Catalytic activity/Vol] 20 U/L Normal 7-45 [facility] Comment on above: Result Comment: Gianna ents treated with Sulfasalazine may generate falsely decreased results for ALT. Performed By: #### 2 4323-8 ####GARRY Schmid ([id number])[facility] ([facility])[address] [place] [address] Anion gap [Moles/Vol] 11 mmol/L Normal 10-20 [facility] Comment on above: Performed By: #### 2 4323-8 ####GARRY Schmid ([id number])[facility] ([facility])[address] [place] [address] AST With P-5'-P [Catalytic activity/Vol] 23 U/L Normal 9-39 [facility] Comment on above: Performed By: #### 2 4323-8 ####GARRY Schmid ([id number])[facility] ([facility])[address] [place] [address] Bilirubin [Mass/Vol] 0.2 mg/dL Normal 0.0-1.2 [facility] Comment on above: Performed By: #### 2 4323-8 ####GARRY Schmid ([id number])[facility] ([facility])[address] [place] [address] Calcium [Mass/Vol] 7.8 mg/dL Low 8.6-10.6 [facility] Comment on above: Performed By: #### 2 4323-8 ####GARRY Schmid ([id number])[facility] ([facility])[address] [place] [address] Chloride [Moles/Vol] 95 mmol/L Low 98-107 [facility] Comment on above: Performed By: #### 2 4323-8 ####GARRY Schmid ([id number])[facility] ([facility])[address] [place] [address] CO2 [Moles/Vol] 28 mmol/L Normal 21-32 [facility] Comment on above: Performed By: #### 2 4323-8 ####GARRY Schmid ([id number])[facility] ([facility])[address]605 [place] [address] Creatinine [Mass/Vol] 0.59 mg/dL Normal 0.50-1.05 [facility] Comment on above: Performed By: #### 2 4323-8 ####GARRY Schmid ([id number])[facility] ([facility])[address] [place] [address] GFR/1.73 sq M.predicted MDRD (S/P/Bld) [Vol rate/Area] mL/min/{1.73_m2} Normal >60 [facility] Comment on above: Result Comment: Calc ulations of estimated GFR are performed using the 2020 CKD-EPI Study Refit equation without the race variable for the IDMS-Traceable creatinine methods.https://jasn.asnjournals.org/content/early// N.3012957005 Performed By: #### 2 4323-8 ####GARRY Schmid ([id number])[facility] ([facility])[address] [place] [address] Glucose [Mass/Vol] 535 mg/dL Critically high 74-99 [facility] Comment on above: Performed By: #### 2 4323-8 ####GARRY Schmid ([id number])[facility] ([facility])[address]348 [place] [address] Potassium [Moles/Vol] 4.9 mmol/L Normal 3.5-5.3 [facility] Comment on above: Performed By: #### 2 4323-8 ####GARRY Schmid ([id number])[facility] ([facility])[address] [place] [address] Protein [Mass/Vol] 4.4 g/dL Low 6.4-8.2 [facility] Comment on above: Performed By: #### 2 4323-8 ####GARRY Schmid (83396)[facility] ([facility])[address]083 [place] [address] Sodium [Moles/Vol] 129 mmol/L Low 136-145 [facility] Comment on above: Performed By: #### 2 4323-8 ####GARRY Schmid (67261)[facility] ([facility])[address]37 [place] [address] Urea nitrogen [Mass/Vol] 13 mg/dL Normal 6-23 [facility] Comment on above: Performed By: #### 2 4323-8 ####GARRY Schmid (12330)[facility] ([facility])[address] [place] [address] Glucose Test strip manual (B ld) [Mass/Vol]on 10-20-2023 Glucose [Mass/Vol] 41 mg/dL Low 74-99 [facility] Comment on above: Performed By: #### 2 341-6 ####GARRY Schmid ([id number])[facility] ([facility])[address] [place] [address] Glucose [Mass/Vol] 50 mg/dL Low 74-99 [facility] Comment on above: Performed By: #### 2 341-6 ####GARRY Schmid ([id number])[facility] ([facility])[address] [place] [address] Glucose [Mass/Vol] 204 mg/dL High 74-99 [facility] Comment on above: Performed By: #### 2 341-6 ####GARRY Schmid ([id number])[facility] ([facility])[address]70 [place] [address] Glucose [Mass/Vol] 178 mg/dL High 74-99 [facility] Comment on above: Performed By: #### 2 341-6 ####GARRY Schmid ([id number])[facility] ([facility])[address]47 [place] [address] Glucose [Mass/Vol] 145 mg/dL High 74-99 [facility] Comment on above: Performed By: #### 2 341-6 ####GARRY Schmid ([id number])[facility] ([facility])[address]202 [place] [address] Glucose [Mass/Vol] 403 mg/dL High [address] [place] [address] Comment on above: Performed By: #### 2 341-6 ####GARRY PEREZ L ([id number])[facility] ([facility])[address]23 [place] [address] Glucose [Mass/Vol] 470 mg/dL High [address] [place] [address] Comment on above: Performed By: #### 2 341-6 ####GARRY PEREZ L (67875)[facility] ([facility])[address]802 [place] [address] Glucose [Mass/Vol] 452 mg/dL High [address] [place] [address] Comment on above: Performed By: #### 2 341-6 ####GARRY PEREZ L ([id number])[facility] ([facility])[address]04 [place] [address] Glucose [Mass/Vol] 524 mg/dL High [address] [place] [address] Comment on above: Performed By: #### 2 341-6 ####GARRY PEREZ L (94520)[facility] ([facility])[address]374 [place] [address] Magnesiumon 10-20-2023 Magnesium [Mass/Vol] 1.89 mg/dL Normal 1.60-2.40 [facility] Comment on above: Performed By: #### 1 9123-9 ####GARRY PEREZ L (51275)[facility] ([facility])[address]557 [place] [address] Triglycerideon 10-20-2023 Triglyceride (Body fld) [Mass/Vol] 160 mg/dL Normal No established [facility] Comment on above: Order Comment: Pleas take from right drain Result Comment: The performance characteristics of this method have not been validated for use with this fluid specimen type. The test result should be interpreted in conjunction with additional clinical and laboratory data. Performed By: #### 1 2228-3 ####GARRY Schmid ([id number])[facility] ([facility])[address] [place] [address] Urinalysis complete W Reflex Culture panel (U)on 10-20-2023 Appearance (U) Clear Normal Clear [facility] Comment on above: Performed By: #### 5 8077-9 ####GARRY PEREZ L (23227)[facility] ([facility])[address]338 [place] [address] Bilirubin (U) [Mass/Vol] Negative Normal NEGATIVE [facility] Comment on above: Performed By: #### 5 8077-9 ####GARRY PEREZ L ([id number])[facility] ([facility])[address] [place] [address] Color (U) Yellow Normal Straw, Yellow [facility] Comment on above: Performed By: #### 5 8077-9 ####GARRY Schmid ([id number])[facility] ([facility])[address] [place] [address] Epithelial cells.squamous Auto (Urine sed) [#/Area] 1-9 (SPARSE) Normal Reference range not established. [facility] Comment on above: Performed By: #### 5 8077-9 ####GARRY PEREZ L (76395)[facility] ([facility])[address]113 [place] [address] Glucose Auto test strip (U) [Mass/Vol] >=500 (3+) Abnormal NEGATIVE [facility] Comment on above: Performed By: #### 5 8077-9 ####GARRY PEREZ L ([id number])[facility] ([facility])[address] [place] [address] Ketones (U) [Mass/Vol] Negative Normal NEGATIVE [facility] Comment on above: Performed By: #### 5 8077-9 ####GARRY PEREZ L (33974)[facility] ([facility])[address]23 [place] [address] Leukocyte esterase Auto test strip Ql (U) Negative Normal NEGATIVE [facility] Comment on above: Performed By: #### 5 8077-9 ####GARRY Schmid ([id number])[facility] ([facility])[address] [place] [address] Nitrite Auto test strip Ql (U) Negative Normal NEGATIVE [facility] Comment on above: Performed By: #### 5 8077-9 ####GARRY Schmid ([id number])[facility] ([facility])[address] [place] [address] pH (U) 6.0 [pH] Normal 5.0, 5.5, 6.0, 6.5, 7.0, 7.5, 8.0 [facility] Comment on above: Performed By: #### 5 8077-9 ####GARRY Schmid ([id number])[facility] ([facility])[address] [place] [address] Protein (U) [Mass/Vol] Negative Normal NEGATIVE [facility] Comment on above: Performed By: #### 5 8077-9 ####GARRY Schmid ([id number])[facility] ([facility])[address] [place] [address] RBC (U) [#/Vol] SMALL (1+) Abnormal NEGATIVE [facility] Comment on above: Performed By: #### 5 8077-9 ####GARRY Schmid ([id number])[facility] ([facility])[address] [place] [address] RBC Auto (Urine sed) [#/Area] NONE Normal NONE, 1-2, 3-5 [facility] Comment on above: Performed By: #### 5 9777-9 ####GARRY Schmid ([id number])[facility] ([facility])[address] [place] [address] Specific gravity (U) [Rel density] 1.023 Normal 1.005-1.035 [facility] Comment on above: Performed By: #### 5 6677-9 ####GARRY Schmid ([id number])[facility] ([facility])[address]39 [place] [address] Urobilinogen (U) [Mass/Vol] 4.0 mg/dL Normal <2.0 [facility] Comment on above: Result Comment: Some pigments and medications may cause a false positive urobilinogen. Performed By: #### 5 8077-9 ####GARRY Schmid ([id number])[facility] ([facility])[address] [place] [address] WBC Auto (Urine sed) [#/Area] 1-5 Normal 1-5, NONE [facility] Comment on above: Performed By: #### 5 8077-9 ####GARRY Schmid ([id number])[facility] ([facility])[address] [place] [address] Bilirubin.glucuronidated+Leobardo irubin.albumin boundon 10-19-2023 Bilirubin.direct [Mass/Vol] 0.0 mg/dL Normal 0.0-0.3 [facility] Comment on above: Performed By: #### 1 968-7 ####GARRY Schmid (91507)[facility] ([facility])[address] [place] [address] CBC panel Auto (Bld)on 10-19 Erythrocyte distribution width (RBC) [Ratio] 14.6 % High 11.5-14.5 [facility] Comment on above: Performed By: #### 5 8410-2 ####GARRY Schmid ([id number])[facility] ([facility])[address] [place] [address] Hematocrit (Bld) [Volume fraction] 29.7 % Low 36.0-46.0 [facility] Comment on above: Performed By: #### 5 8410-2 ####GARRY Schmid ([id number])[facility] ([facility])[address] [place] [address] Hemoglobin (Bld) [Mass/Vol] 9.5 g/dL Low 12.0-16.0 [facility] Comment on above: Performed By: #### 5 8410-2 ####GARRY Schmid ([id number])[facility] ([facility])[address]796 [place] [address] MCH (RBC) [Entitic mass] 30.4 pg Normal 26.0-34.0 [facility] Comment on above: Performed By: #### 5 8410-2 ####GARRY Schmid (81785)[facility] ([facility])[address]39 [place] [address] MCHC (RBC) [Mass/Vol] 32.0 g/dL Normal 32.0-36.0 [facility] Comment on above: Performed By: #### 5 8410-2 ####GARRY Schmid ([id number])[facility] ([facility])[address]38 [place] [address] MCV (RBC) [Entitic vol] 95 fL Normal 80-100 [facility] Comment on above: Performed By: #### 5 8410-2 ####GARRY Schmid (85301)[facility] ([facility])[address]237 [place] [address] Nucleated RBC/100 WBC (Bld) [Ratio] 0.6 /100 WBCs High 0.0-0.0 [facility] Comment on above: Performed By: #### 5 8410-2 ####GARRY Schmid (52865)[facility] ([facility])[address]450 [place] [address] Platelets (Bld) [#/Vol] 508 x10*3/uL High 150-450 [facility] Comment on above: Performed By: #### 5 8410-2 ####GARRY Schmid (25500)[facility] ([facility])[address]238 [place] [address] RBC (Bld) [#/Vol] 3.13 x10*6/uL Low 4.00-5.20 [facility] Comment on above: Performed By: #### 5 8410-2 ####GARRY Schmid (25690)[facility] ([facility])[address]67 [place] [address] WBC (Bld) [#/Vol] 10.0 x10*3/uL Normal 4.4-11.3 [facility] Comment on above: Performed By: #### 5 8410-2 ####GARRY Schmid (69576)[facility] ([facility])[address]443 [place] [address] Comprehensive metabolic 2000 panelon 10-19-2023 Albumin BCP dye [Mass/Vol] 2.2 g/dL Low 3.4-5.0 [facility] Comment on above: Performed By: #### 2 4323-8 ####GARRY Schmid (43027)[facility] ([facility])[address]172 [place] [address] ALP [Catalytic activity/Vol] 84 U/L Normal 33-110 [facility] Comment on above: Performed By: #### 2 4323-8 ####GARRY Schmid (69063)[facility] ([facility])[address]30 [place] [address] ALT With P-5'-P [Catalytic activity/Vol] 27 U/L Normal 7-45 [facility] Comment on above: Result Comment: Gianna ents treated with Sulfasalazine may generate falsely decreased results for ALT. Performed By: #### 2 4323-8 ####GARRY Schmid ([id number])[facility] ([facility])[address]79 [place] [address] Anion gap [Moles/Vol] 10 mmol/L Normal 10-20 [facility] Comment on above: Performed By: #### 2 4323-8 ####GARRY Schmid (00093)[facility] ([facility])[address]72 [place] [address] AST With P-5'-P [Catalytic activity/Vol] 41 U/L High 9-39 [facility] Comment on above: Performed By: #### 2 4323-8 ####GARRY Schmid (93353)[facility] ([facility])[address]28 [place] [address] Bilirubin [Mass/Vol] 0.2 mg/dL Normal 0.0-1.2 [facility] Comment on above: Performed By: #### 2 4323-8 ####GARRY PEREZ L (61980)[facility] ([facility])[address]25 [place] [address] Calcium [Mass/Vol] 7.8 mg/dL Low 8.6-10.6 [facility] Comment on above: Performed By: #### 2 4323-8 ####GARRY PEREZ L (77999)[facility] ([facility])[address]73 [place] [address] Chloride [Moles/Vol] 102 mmol/L Normal 98-107 [facility] Comment on above: Performed By: #### 2 4323-8 ####GARRY PEREZ L ([id number])[facility] ([facility])[address]655 [place] [address] CO2 [Moles/Vol] 30 mmol/L Normal 21-32 [facility] Comment on above: Performed By: #### 2 4323-8 ####GARRY PEREZ L ([id number])[facility] ([facility])[address]285 [place] [address] Creatinine [Mass/Vol] 0.52 mg/dL Normal 0.50-1.05 [facility] Comment on above: Performed By: #### 2 4323-8 ####GARRY PEREZ L (33979)[facility] ([facility])[address]26 [place] [address] GFR/1.73 sq M.predicted MDRD (S/P/Bld) [Vol rate/Area] mL/min/{1.73_m2} Normal >60 [facility] Comment on above: Result Comment: Calc ulations of estimated GFR are performed using the 2020 CKD-EPI Study Refit equation without the race variable for the IDMS-Traceable creatinine methods.https://jasn.asnjournals.org/content// N.5374090995 Performed By: #### 2 4323-8 ####GARRY Schmid ([id number])[facility] ([facility])[address]137 [place] [address] Glucose [Mass/Vol] 262 mg/dL High 74-99 [facility] Comment on above: Performed By: #### 2 4323-8 ####GARRY Schmid (45080)[facility] ([facility])[address]019 [place] [address] Potassium [Moles/Vol] 4.4 mmol/L Normal 3.5-5.3 [facility] Comment on above: Performed By: #### 2 4323-8 ####GARRY Schmid (24292)[facility] ([facility])[address]34 [place] [address] Protein [Mass/Vol] 4.2 g/dL Low 6.4-8.2 [facility] Comment on above: Performed By: #### 2 4323-8 ####GARRY Schmid (05938)[facility] ([facility])[address]155 [place] [address] Sodium [Moles/Vol] 138 mmol/L Normal 136-145 [facility] Comment on above: Performed By: #### 2 4323-8 ####GARRY Schmid (98144)[facility] ([facility])[address]97 [place] [address] Urea nitrogen [Mass/Vol] 8 mg/dL Normal 6-23 [facility] Comment on above: Performed By: #### 2 4323-8 ####GARRY Schmid (42392)[facility] ([facility])[address]20 [place] [address] Glucose Test strip manual (B ld) [Mass/Vol]on 10-19-2023 Glucose [Mass/Vol] 131 mg/dL High [address] [place] [address] Comment on above: Performed By: #### 2 341-6 ####GARRY PEREZ L (17031)[facility] ([facility])[address]75 [place] [address] Glucose [Mass/Vol] 189 mg/dL High [address] [place] [address] Comment on above: Performed By: #### 2 341-6 ####GARRY PEREZ L (44323)[facility] ([facility])[address]73 [place] [address] Glucose [Mass/Vol] 333 mg/dL High [address] [place] [address] Comment on above: Performed By: #### 2 341-6 ####GARRY PEREZ L (59085)[facility] ([facility])[address]119 [place] [address] Glucose [Mass/Vol] 448 mg/dL High [address] [place] [address] Comment on above: Performed By: #### 2 341-6 ####GARRY SHIRLEYTZLEIGH L (61368)[facility] ([facility])[address]16 [place] [address] Glucose [Mass/Vol] 280 mg/dL High [address] [place] [address] Comment on above: Performed By: #### 2 341-6 ####GARRY NGMOTZER L (90302)[facility] ([facility])[address]0003 [place] [address] Glucose [Mass/Vol] 248 mg/dL High [address] [place] [address] Comment on above: Performed By: #### 2 341-6 ####GARRY SHIRLEYTZLEIGH L (10379)[facility] ([facility])[address]682 [place] [address] Lactateon 10-19-2023 Lactate [Moles/Vol] 1.3 mmol/L Normal 0.4-2.0 [facility] Comment on above: Order Comment: Venip uncture immediately after or during the administration of Metamizole may lead to falsely low results. Testing should be performed immediatelyprior to Metamizole dosing. Performed By: #### 2 524-7 ####GARRY Schmid ([id number])[facility] ([facility])[address]572 [place] [address] Magnesiumon 10-19-2023 Magnesium [Mass/Vol] 1.74 mg/dL Normal 1.60-2.40 [facility] Comment on above: Performed By: #### 1 9123-9 ####GARRY Schmid (07279)[facility] ([facility])[address]182 [place] [address] PT and aPTT panel Coag (PPP) on 10-19-2023 aPTT Coag (PPP) [Time] 33 s Normal 27-38 [facility] Comment on above: Order Comment: The A PTT is no longer used for monitoring Unfractionated Heparin Therapy. For monitoring Heparin Therapy, use the Heparin Assay. Performed By: #### 3 4529-8 ####GARRY Schmid (29121)[facility] ([facility])[address]20 [place] [address] INR Coag (PPP) [Relative time] 1.0 Normal 0.9-1.1 [facility] Comment on above: Order Comment: The A PTT is no longer used for monitoring Unfractionated Heparin Therapy. For monitoring Heparin Therapy, use the Heparin Assay. Performed By: #### 3 4529-8 ####GARRY Schmid ([id number])[facility] ([facility])[address] [place] [address] PT Coag (PPP) [Time] 11.1 s Normal 9.8-12.8 [facility] Comment on above: Order Comment: The A PTT is no longer used for monitoring Unfractionated Heparin Therapy. For monitoring Heparin Therapy, use the Heparin Assay. Performed By: #### 3 4529-8 ####GARRY Schmid ([id number])[facility] ([facility])[address]200 [place] [address] Phosphateon 10-19-2023 Phosphate [Mass/Vol] 4.0 mg/dL Normal 2.5-4.9 [facility] Comment on above: Result Comment: The performance characteristics of phosphorus testing in heparinized plasma have been validated by the individual laboratory site where testing is performed. Testing on heparinized plasma is not approved by the FDA; however, such approval is not necessary. Performed By: #### 2 777-1 ####GARRY Schmid (74563)[facility] ([facility])[address] [place] [address] CBC panel Auto (Bld)on 10-18 Erythrocyte distribution width (RBC) [Ratio] 14.1 % Normal 11.5-14.5 [facility] Comment on above: Performed By: #### 5 8410-2 ####GARRY Schmid ([id number])[facility] ([facility])[address] [place] [address] Hematocrit (Bld) [Volume fraction] 29.0 % Low 36.0-46.0 [facility] Comment on above: Performed By: #### 5 8410-2 ####GARRY Schmid ([id number])[facility] ([facility])[address] [place] [address] Hemoglobin (Bld) [Mass/Vol] 9.6 g/dL Low 12.0-16.0 [facility] Comment on above: Performed By: #### 5 8410-2 ####GARRY Schmid ([id number])[facility] ([facility])[id number] [place] [address] 31081 MCH (RBC) [Entitic mass] 30.0 pg Normal 26.0-34.0 [facility] Comment on above: Performed By: #### 5 8410-2 ####GARRY Schmid ([id number])[facility] ([facility])[id number] [place] [address] 44069 MCHC (RBC) [Mass/Vol] 33.1 g/dL Normal 32.0-36.0 [facility] Comment on above: Performed By: #### 5 8410-2 ####GARRY Schmid ([id number])[facility] ([facility])[address] [place] [address] MCV (RBC) [Entitic vol] 91 fL Normal 80-100 [facility] Comment on above: Performed By: #### 5 8410-2 ####GARRY Schmid ([id number])[facility] ([facility])[address] [place] [address] Nucleated RBC/100 WBC (Bld) [Ratio] 0.7 /100 WBCs High 0.0-0.0 [facility] Comment on above: Performed By: #### 5 8410-2 ####GARRY Schmid ([id number])[facility] ([facility])[address] [place] [address] Platelets (Bld) [#/Vol] 457 x10*3/uL High 150-450 [facility] Comment on above: Performed By: #### 5 8410-2 ####GARRY Schmid ([id number])[facility] ([facility])[address]66 [place] [address] RBC (Bld) [#/Vol] 3.20 x10*6/uL Low 4.00-5.20 [facility] Comment on above: Performed By: #### 5 8410-2 ####GARRY Schmid ([id number])[facility] ([facility])[address]36 [place] [address] WBC (Bld) [#/Vol] 8.2 x10*3/uL Normal 4.4-11.3 [facility] Comment on above: Performed By: #### 5 8410-2 ####GARRY Schmid ([id number])[facility] ([facility])[address]273 [place] [address] CT ABDOMEN PELVIS W IV CONTR Iris 10-18-2023 CT ABDOMEN PELVIS W IV CONTRAST Normal [facility] Glucose Test strip manual (B ld) [Mass/Vol]on 10-18-2023 Glucose [Mass/Vol] 144 mg/dL High 74-99 [facility] Comment on above: Performed By: #### 2 341-6 ####GARRY Schmid ([id number])[facility] ([facility])[address] [facility] [place] [place] [address] Glucose [Mass/Vol] 109 mg/dL High [address] [place] [address] Comment on above: Performed By: #### 2 341-6 ####GARRY PEREZ L ([id number])[facility] ([facility])[address]73 [facility] [place] [address] Glucose [Mass/Vol] 118 mg/dL High [address] [place] [address] Comment on above: Performed By: #### 2 341-6 ####GARRY Schmid ([id number])[facility] ([facility])24257 [facility] [place] [address] Glucose [Mass/Vol] 204 mg/dL High [address] [place] [address] Comment on above: Performed By: #### 2 341-6 ####GARRY PEREZ L ([id number])[facility] ([facility])23756 [facility] [address] Glucose [Mass/Vol] 203 mg/dL High [address] [place] [address] Comment on above: Performed By: #### 2 341-6 ####GARRY Schmid ([id number])[facility] ([facility])85787 [facility] [place] [address] Glucose [Mass/Vol] 379 mg/dL High [address] [place] [address] Comment on above: Performed By: #### 2 341-6 ####GARRY PEREZ L ([id number])[facility] ([facility])42717 [facility] [place] [address] Glucose [Mass/Vol] 408 mg/dL High [address] [place] [address] Comment on above: Performed By: #### 2 341-6 ####GARRY SHIRLEYTZLEIGH L ([id number])[facility] ([facility])[address] [facility] [place] [address] Glucose [Mass/Vol] 294 mg/dL High [address] [place] [address] Comment on above: Performed By: #### 2 341-6 ####GARRY Schmid ([id number])[facility] ([facility])[address] [place] [address] Magnesiumon 10-18-2023 Magnesium [Mass/Vol] 1.92 mg/dL Normal 1.60-2.40 [facility] Comment on above: Performed By: #### 1 9123-9 ####GARRY Schmid ([id number])[facility] ([facility])[address] [place] [address] Renal function 2000 panelon 10-18-2023 Albumin BCP dye [Mass/Vol] 2.5 g/dL Low 3.4-5.0 [facility] Comment on above: Performed By: #### 2 4362-6 ####GARRY Schmid ([id number])[facility] ([facility])[address] [place] [address] Anion gap [Moles/Vol] mmol/L Low 10-20 [facility] Comment on above: Performed By: #### 2 4362-6 ####GARRY Schmid ([id number])[facility] ([facility])[address] [place] [address] Calcium [Mass/Vol] 7.8 mg/dL Low 8.6-10.6 [facility] Comment on above: Performed By: #### 2 4362-6 ####GARRY Schmid ([id number])[facility] ([facility])[address] [place] [address] Chloride [Moles/Vol] 103 mmol/L Normal 98-107 [facility] Comment on above: Performed By: #### 2 4362-6 ####GARRY Schmid ([id number])[facility] ([facility])[address] [place] [address] CO2 [Moles/Vol] 31 mmol/L Normal 21-32 [facility] Comment on above: Performed By: #### 2 4362-6 ####GARRY Schmid (55842)[facility] ([facility])[address]40 [place] [address] Creatinine [Mass/Vol] 0.51 mg/dL Normal 0.50-1.05 [facility] Comment on above: Performed By: #### 2 4362-6 ####GARRY Schmid ([id number])[facility] ([facility])[address]65 [place] [address] GFR/1.73 sq M.predicted MDRD (S/P/Bld) [Vol rate/Area] mL/min/{1.73_m2} Normal >60 [facility] Comment on above: Result Comment: Calc ulations of estimated GFR are performed using the 2020 CKD-EPI Study Refit equation without the race variable for the IDMS-Traceable creatinine methods.https://jasn.asnjournals.org/content/early/ N.7244910911 Performed By: #### 2 4362-6 ####GARRY Schmid ([id number])[facility] ([facility])[address]204 [place] [address] Glucose [Mass/Vol] 274 mg/dL High 74-99 [facility] Comment on above: Performed By: #### 2 4362-6 ####GARRY Schmid ([id number])[facility] ([facility])[address]27 [place] [address] Phosphate [Mass/Vol] 2.6 mg/dL Normal 2.5-4.9 [facility] Comment on above: Result Comment: The performance characteristics of phosphorus testing in heparinized plasma have been validated by the individual laboratory site where testing is performed. Testing on heparinized plasma is not approved by the FDA; however, such approval is not necessary. Performed By: #### 2 4362-6 ####GARRY Schmid ([id number])[facility] ([facility])[address]125 [place] [address] Potassium [Moles/Vol] 4.4 mmol/L Normal 3.5-5.3 [facility] Comment on above: Performed By: #### 2 4362-6 ####GARRY Schmid ([id number])[facility] ([facility])[address] [place] [address] Sodium [Moles/Vol] 136 mmol/L Normal 136-145 [facility] Comment on above: Performed By: #### 2 4362-6 ####GARRY Schmid ([id number])[facility] ([facility])[address] [place] [address] Urea nitrogen [Mass/Vol] 6 mg/dL Normal 6-23 [facility] Comment on above: Performed By: #### 2 4362-6 ####GARRY Schmid ([id number])[facility] ([facility])[address] [place] [address] US GUIDED PERCUTANEOUS PERIT BROWN OR RETROPERITONEAL FLUID COLLECTION DRAINAGEon 10-18-2023 US GUIDED PERCUTANEOUS PERITONEAL OR RETROPERITONEAL FLUID COLLECTION DRAINAGE Normal [facility] CBC panel Auto (Bld)on 10-17 Erythrocyte distribution width (RBC) [Ratio] 14.5 % Normal 11.5-14.5 [facility] Comment on above: Performed By: #### 5 8410-2 ####GARRY Schmid ([id number])[facility] ([facility])[address] [place] [address] Hematocrit (Bld) [Volume fraction] 28.3 % Low 36.0-46.0 [facility] Comment on above: Performed By: #### 5 8410-2 ####GARRY Schmid ([id number])[facility] ([facility])[address] [place] [address] Hemoglobin (Bld) [Mass/Vol] 9.1 g/dL Low 12.0-16.0 [facility] Comment on above: Performed By: #### 5 8410-2 ####GARRY Schmid ([id number])[facility] ([facility])[address] [place] [address]66[address] MCH (RBC) [Entitic mass] 30.5 pg Normal 26.0-34.0 [facility] Comment on above: Performed By: #### 5 8410-2 ####GARRY Schmid (21414)[facility] ([facility])[address]88 [place] [address] MCHC (RBC) [Mass/Vol] 32.2 g/dL Normal 32.0-36.0 [facility] Comment on above: Performed By: #### 5 8410-2 ####GARRY Schmid (69149)[facility] ([facility])[address]64 [place] [address] MCV (RBC) [Entitic vol] 95 fL Normal 80-100 [facility] Comment on above: Performed By: #### 5 8410-2 ####GARRY Schmid ([id number])[facility] ([facility])[address]3846 [place] [address] Nucleated RBC/100 WBC (Bld) [Ratio] 0.9 /100 WBCs High 0.0-0.0 [facility] Comment on above: Performed By: #### 5 8410-2 ####GARRY Schmid ([id number])[facility] ([facility])[address]399 [place] [address] Platelets (Bld) [#/Vol] 399 x10*3/uL Normal 150-450 [facility] Comment on above: Performed By: #### 5 8410-2 ####GARRY Schmid ([id number])[facility] ([facility])62793 [place] [address] RBC (Bld) [#/Vol] 2.98 x10*6/uL Low 4.00-5.20 [facility] Comment on above: Performed By: #### 5 8410-2 ####GARRY Schmid ([id number])[facility] ([facility])[address]93 [place] [address] WBC (Bld) [#/Vol] 5.6 x10*3/uL Normal 4.4-11.3 [facility] Comment on above: Performed By: #### 5 8410-2 ####GARRY Schmid ([id number])[facility] ([facility])[address]87 [place] [address] Glucose Test strip manual (B ld) [Mass/Vol]on 10-17-2023 Glucose [Mass/Vol] 256 mg/dL High [address] [place] [address] Comment on above: Performed By: #### 2 341-6 ####GARRY Schmid ([id number])[facility] ([facility])[address]348 [place] [address] Glucose [Mass/Vol] 321 mg/dL High [address] [place] [address] Comment on above: Performed By: #### 2 341-6 ####GARRY Schmid (93491)[facility] ([facility])[address]13 [place] [address] Glucose [Mass/Vol] 256 mg/dL High [address] [place] [address] Comment on above: Performed By: #### 2 341-6 ####GARRY Schmid ([id number])[facility] ([facility])13226 [place] [address] Glucose [Mass/Vol] 270 mg/dL High [address] [place] [address] Comment on above: Performed By: #### 2 341-6 ####GARRY Schmid ([id number])[facility] ([facility])37494 [place] [address] Glucose [Mass/Vol] 181 mg/dL High [address] [place] [address] Comment on above: Performed By: #### 2 341-6 ####GARRY Schmid ([id number])[facility] ([facility])[address]322 [place] [address] Magnesiumon 10-17-2023 Magnesium [Mass/Vol] 1.73 mg/dL Normal 1.60-2.40 [facility] Comment on above: Performed By: #### 1 9123-9 ####GARRY Schmid (54282)[facility] ([facility])[address]997 [place] [address] Renal function 2000 panelon 10-17-2023 Albumin BCP dye [Mass/Vol] 2.3 g/dL Low 3.4-5.0 [facility] Comment on above: Performed By: #### 2 4362-6 ####GARRY Schmid ([id number])[facility] ([facility])60394 [place] [address] Anion gap [Moles/Vol] 9 mmol/L Low 10-20 [facility] Comment on above: Performed By: #### 2 4362-6 ####GARRY Schmid (16642)[facility] ([facility])[address]22 [place] [address] Calcium [Mass/Vol] 7.5 mg/dL Low 8.6-10.6 [facility] Comment on above: Performed By: #### 2 4362-6 ####GARRY Schmid ([id number])[facility] ([facility])[address]888 [place] [address] Chloride [Moles/Vol] 107 mmol/L Normal 98-107 [facility] Comment on above: Performed By: #### 2 4362-6 ####GARRY Schmid (07374)[facility] ([facility])[address]27 [place] [address] CO2 [Moles/Vol] 28 mmol/L Normal 21-32 [facility] Comment on above: Performed By: #### 2 4362-6 ####GARRY Schmid ([id number])[facility] ([facility])32933 [place] [address] Creatinine [Mass/Vol] 0.55 mg/dL Normal 0.50-1.05 [facility] Comment on above: Performed By: #### 2 4362-6 ####GARRY Schmid (77022)[facility] ([facility])13073 [place] [address] GFR/1.73 sq M.predicted MDRD (S/P/Bld) [Vol rate/Area] mL/min/{1.73_m2} Normal >60 [facility] Comment on above: Result Comment: Calc ulations of estimated GFR are performed using the 2020 CKD-EPI Study Refit equation without the race variable for the IDMS-Traceable creatinine methods.https://jasn.asnjournals.org/content// N.0721217041 Performed By: #### 2 4362-6 ####GARRY Schmid (47934)[facility] ([facility])[address]40 [place] [address] Glucose [Mass/Vol] 216 mg/dL High 74-99 [facility] Comment on above: Performed By: #### 2 4362-6 ####GARRY Schmid (06164)[facility] ([facility])[address]64 [place] [address] Phosphate [Mass/Vol] 3.1 mg/dL Normal 2.5-4.9 [facility] Comment on above: Result Comment: The performance characteristics of phosphorus testing in heparinized plasma have been validated by the individual laboratory site where testing is performed. Testing on heparinized plasma is not approved by the FDA; however, such approval is not necessary. Performed By: #### 2 4362-6 ####GARRY Schmid (60089)[facility] ([facility])[address]20 [place] [address] Potassium [Moles/Vol] 3.8 mmol/L Normal 3.5-5.3 [facility] Comment on above: Performed By: #### 2 4362-6 ####GARRY Schmid (83960)[facility] ([facility])[address]48 [place] [address] Sodium [Moles/Vol] 140 mmol/L Normal 136-145 [facility] Comment on above: Performed By: #### 2 4362-6 ####GARRY Schmid (10039)[facility] ([facility])[address]17 [place] [address] Urea nitrogen [Mass/Vol] 6 mg/dL Normal 6-23 [facility] Comment on above: Performed By: #### 2 4362-6 ####GARRY Schmid ([id number])[facility] ([facility])[address] [place] [address]64 Triglycerideon 10-17-2023 Triglyceride (Body fld) [Mass/Vol] 297 mg/dL Normal No established [facility] Comment on above: Order Comment: Pleas e send from L drain at noon todayThe performance characteristics of this test have been validated on peritoneal/ascites,pleural, pericardial and drain fluid by the performing [facility] laboratory. This test has not been approved by the FDA; however, such approval is not necessary. Performed By: #### 1 2228-3 ####GARRY Schmid ([id number])[facility] ([facility])[address] [place] [address] Triglyceride (Body fld) [Mass/Vol] 385 mg/dL Normal No established [facility] Comment on above: Order Comment: The p erformance characteristics of this test have been validated on peritoneal/ascites,pleural, pericardial and drain fluid by the performing [facility] laboratory. This test has not been approved by the FDA; however, such approval is not necessary. Performed By: #### 1 2228-3 ####GARRY Schmid ([id number])[facility] ([facility])[address] [place] [address]197 CBC panel Auto (Bld)on 10-16 Erythrocyte distribution width (RBC) [Ratio] 14.3 % Normal 11.5-14.5 [facility] Comment on above: Performed By: #### 5 8410-2 ####GARRY Schmid ([id number])[facility] ([facility])[address] [place] [address] Hematocrit (Bld) [Volume fraction] 27.6 % Low 36.0-46.0 [facility] Comment on above: Performed By: #### 5 8410-2 ####GARRY Schmid ([id number])[facility] ([facility])[address]88 [place] [address] Hemoglobin (Bld) [Mass/Vol] 9.4 g/dL Low 12.0-16.0 [facility] Comment on above: Performed By: #### 5 8410-2 ####GARRY Schmid (40287)[facility] ([facility])88787 [place] [address] MCH (RBC) [Entitic mass] 31.3 pg Normal 26.0-34.0 [facility] Comment on above: Performed By: #### 5 8410-2 ####GARRY Schmid ([id number])[facility] ([facility])[address] [place] [address]89[address] MCHC (RBC) [Mass/Vol] 34.1 g/dL Normal 32.0-36.0 [facility] Comment on above: Performed By: #### 5 8410-2 ####GARRY Schmid ([id number])[facility] ([facility])[address] [place] [address] 10199 MCV (RBC) [Entitic vol] 92 fL Normal 80-100 [facility] Comment on above: Performed By: #### 5 8410-2 ####GARRY Schmid (75843)[facility] ([facility])[address] [place] [address] 56683 Nucleated RBC/100 WBC (Bld) [Ratio] 0.6 /100 WBCs High 0.0-0.0 [facility] Comment on above: Performed By: #### 5 8410-2 ####GARRY Schmid ([id number])[facility] ([facility])[address] [place] [address]013 Platelets (Bld) [#/Vol] 369 x10*3/uL Normal 150-450 [facility] Comment on above: Performed By: #### 5 8410-2 ####GARRY Schmid (98558)[facility] ([facility])[address]29 [place] [address] RBC (Bld) [#/Vol] 3.00 x10*6/uL Low 4.00-5.20 [facility] Comment on above: Performed By: #### 5 8410-2 ####GARRY Schmid ([id number])[facility] ([facility])25938 [place] [address] WBC (Bld) [#/Vol] 5.1 x10*3/uL Normal 4.4-11.3 [facility] Comment on above: Performed By: #### 5 8410-2 ####GARRY Schmid (56475)[facility] ([facility])38983 [place] [address] Comprehensive metabolic 2000 panelon 10-16-2023 Albumin BCP dye [Mass/Vol] 2.3 g/dL Low 3.4-5.0 [facility] Comment on above: Performed By: #### 2 4323-8 ####GARRY Schmid ([id number])[facility] ([facility])[address]34 [place] [address] ALP [Catalytic activity/Vol] 81 U/L Normal 33-110 [facility] Comment on above: Performed By: #### 2 4323-8 ####GARRY Schmid (67137)[facility] ([facility])[address]487 [place] [address] ALT With P-5'-P [Catalytic activity/Vol] 48 U/L High 7-45 [facility] Comment on above: Result Comment: Gianna ents treated with Sulfasalazine may generate falsely decreased results for ALT. Performed By: #### 2 4323-8 ####GARRY Schmid (47356)[facility] ([facility])[address]81 [place] [address] Anion gap [Moles/Vol] 11 mmol/L Normal 10-20 [facility] Comment on above: Performed By: #### 2 4323-8 ####GARRY Schmid (92152)[facility] ([facility])[address]487 [place] [address] AST With P-5'-P [Catalytic activity/Vol] 96 U/L High 9-39 [facility] Comment on above: Performed By: #### 2 4323-8 ####GARRY Schmid (87430)[facility] ([facility])[address]64 [place] [address] Bilirubin [Mass/Vol] 0.2 mg/dL Normal 0.0-1.2 [facility] Comment on above: Performed By: #### 2 4323-8 ####GARRY Schmid ([id number])[facility] ([facility])11022 [place] [address] Calcium [Mass/Vol] 7.4 mg/dL Low 8.6-10.6 [facility] Comment on above: Performed By: #### 2 4323-8 ####GARRY Schmid (50892)[facility] ([facility])[address]82 [place] [address] Chloride [Moles/Vol] 105 mmol/L Normal 98-107 [facility] Comment on above: Performed By: #### 2 4323-8 ####GARRY Schmid (49082)[facility] ([facility])47482 [place] [address] CO2 [Moles/Vol] 24 mmol/L Normal 21-32 [facility] Comment on above: Performed By: #### 2 4323-8 ####GARRY Schmid ([id number])[facility] ([facility])[address]86 [place] [address] Creatinine [Mass/Vol] 0.66 mg/dL Normal 0.50-1.05 [facility] Comment on above: Performed By: #### 2 4323-8 ####GARRY Schmid (95501)[facility] ([facility])[address]168 [place] [address] GFR/1.73 sq M.predicted MDRD (S/P/Bld) [Vol rate/Area] mL/min/{1.73_m2} Normal >60 [facility] Comment on above: Result Comment: Calc ulations of estimated GFR are performed using the 2020 CKD-EPI Study Refit equation without the race variable for the IDMS-Traceable creatinine methods.https://jasn.asnjournals.org/content// N.4093529538 Performed By: #### 2 4323-8 ####GARRY Schmid ([id number])[facility] ([facility])[address]41 [place] [address] Glucose [Mass/Vol] 204 mg/dL High 74-99 [facility] Comment on above: Performed By: #### 2 4323-8 ####GARRY Schmid (87752)[facility] ([facility])[address] [place] [address] Potassium [Moles/Vol] 4.4 mmol/L Normal 3.5-5.3 [facility] Comment on above: Performed By: #### 2 4323-8 ####GARRY Schmid ([id number])[facility] ([facility])[address] [place] [address] Protein [Mass/Vol] 4.2 g/dL Low 6.4-8.2 [facility] Comment on above: Performed By: #### 2 4323-8 ####GARRY PEREZ L ([id number])[facility] ([facility])[address] [place] [address] Sodium [Moles/Vol] 136 mmol/L Normal 136-145 [facility] Comment on above: Performed By: #### 2 4323-8 ####GARRY PEREZ L ([id number])[facility] ([facility])[address] [place] [address] Urea nitrogen [Mass/Vol] 8 mg/dL Normal 6-23 [facility] Comment on above: Performed By: #### 2 4323-8 ####GARRY Scmhid ([id number])[facility] ([facility])[address] [facility] [place] [address] Glucose Test strip manual (B ld) [Mass/Vol]on 10-16-2023 Glucose [Mass/Vol] 178 mg/dL High [address] [place] [address] Comment on above: Performed By: #### 2 341-6 ####GARRY Schmid ([id number])[facility] ([facility])[address] [place] [address] Glucose [Mass/Vol] 170 mg/dL High [address] [place] [address] Comment on above: Performed By: #### 2 341-6 ####GARRY Schmid (63526)[facility] ([facility])[address]35 [place] [address] Glucose [Mass/Vol] 152 mg/dL High [address] [place] [address] Comment on above: Performed By: #### 2 341-6 ####GARRY Schmid ([id number])[facility] ([facility])[address]1965 [facility] [address] Glucose [Mass/Vol] 182 mg/dL High [address] [place] [address] Comment on above: Performed By: #### 2 341-6 ####GARRY Schmid ([id number])[facility] ([facility])[address] [facility] [place] [address] Glucose [Mass/Vol] 228 mg/dL High [address] [place] [address] Comment on above: Performed By: #### 2 341-6 ####GARRY Schmid ([id number])[facility] ([facility])[address]376 [place] [address] Glucose [Mass/Vol] 215 mg/dL High [address] [place] [address] Comment on above: Performed By: #### 2 341-6 ####GARRY Schmid ([id number])[facility] ([facility])[address] [facility] [place] [address] Glucose [Mass/Vol] 187 mg/dL High 74-99 [facility] Comment on above: Performed By: #### 2 341-6 ####GARRY Schmid ([id number])[facility] ([facility])[address]1936 [place] [address] Magnesiumon 10-16-2023 Magnesium [Mass/Vol] 1.75 mg/dL Normal 1.60-2.40 [facility] Comment on above: Performed By: #### 1 9123-9 ####GARRY Schmid ([id number])[facility] ([facility])[address] [place] [address] CBC panel Auto (Bld)on 10-15 Erythrocyte distribution width (RBC) [Ratio] 14.8 % High 11.5-14.5 [facility] Comment on above: Performed By: #### 5 8410-2 ####GARRY Schmid ([id number])[facility] ([facility])[address] [place] [address] Hematocrit (Bld) [Volume fraction] 32.2 % Low 36.0-46.0 [facility] Comment on above: Performed By: #### 5 8410-2 ####GARRY Schmid ([id number])[facility] ([facility])[address] [place] [address] Hemoglobin (Bld) [Mass/Vol] 10.9 g/dL Low 12.0-16.0 [facility] Comment on above: Performed By: #### 5 8410-2 ####GARRY Schmid ([id number])[facility] ([facility])[address] [place] [address] MCH (RBC) [Entitic mass] 31.4 pg Normal 26.0-34.0 [facility] Comment on above: Performed By: #### 5 8410-2 ####GARRY Schmid ([id number])[facility] ([facility])[address]30 [place] [address] MCHC (RBC) [Mass/Vol] 33.9 g/dL Normal 32.0-36.0 [facility] Comment on above: Performed By: #### 5 8410-2 ####GARRY Schmid ([id number])[facility] ([facility])[address]383 [place] [address] MCV (RBC) [Entitic vol] 93 fL Normal 80-100 [facility] Comment on above: Performed By: #### 5 8410-2 ####GARRY Schmid ([id number])[facility] ([facility])[address] [place] [address] 480[address] Nucleated RBC/100 WBC (Bld) [Ratio] 0.5 /100 WBCs High 0.0-0.0 [facility] Comment on above: Performed By: #### 5 8410-2 ####GARRY Shcmid ([id number])[facility] ([facility])[address] [place] [address] Platelets (Bld) [#/Vol] 330 x10*3/uL Normal 150-450 [facility] Comment on above: Performed By: #### 5 8410-2 ####GARRY Schmid ([id number])[facility] ([facility])[address] [place] [address] RBC (Bld) [#/Vol] 3.47 x10*6/uL Low 4.00-5.20 [facility] Comment on above: Performed By: #### 5 8410-2 ####GARRY Schmid ([id number])[facility] ([facility])[address] [place] [address] WBC (Bld) [#/Vol] 6.5 x10*3/uL Normal 4.4-11.3 [facility] Comment on above: Performed By: #### 5 8410-2 ####GARRY Schmid ([id number])[facility] ([facility])[address]23 [place] [address] Comprehensive metabolic 2000 panelon 10-15-2023 Albumin BCP dye [Mass/Vol] 2.6 g/dL Low 3.4-5.0 [facility] Comment on above: Performed By: #### 2 4323-8 ####GARRY Schmid (48856)[facility] ([facility])[address]146 [place] [address] ALP [Catalytic activity/Vol] 73 U/L Normal 33-110 [facility] Comment on above: Performed By: #### 2 4323-8 ####GARRY Schmid (24904)[facility] ([facility])[address] [place] [address] ALT With P-5'-P [Catalytic activity/Vol] 55 U/L High 7-45 [facility] Comment on above: Result Comment: Gianna ents treated with Sulfasalazine may generate falsely decreased results for ALT. Performed By: #### 2 4323-8 ####GARRY Schmid ([id number])[facility] ([facility])[address] [place] [address] Anion gap [Moles/Vol] 12 mmol/L Normal 10-20 [facility] Comment on above: Performed By: #### 2 4323-8 ####GARRY Schmid (89036)[facility] ([facility])[address]015 [place] [address] AST With P-5'-P [Catalytic activity/Vol] 149 U/L High 9-39 [facility] Comment on above: Performed By: #### 2 4323-8 ####GARRY Schmid (99581)[facility] ([facility])[address]46 [place] [address] Bilirubin [Mass/Vol] 0.3 mg/dL Normal 0.0-1.2 [facility] Comment on above: Performed By: #### 2 4323-8 ####GARRY Schmid ([id number])[facility] ([facility])[address]758 [place] [address] Calcium [Mass/Vol] 7.6 mg/dL Low 8.6-10.6 [facility] Comment on above: Performed By: #### 2 4323-8 ####GARRY PEREZ L (37004)[facility] ([facility])[address]272 [place] [address] Chloride [Moles/Vol] 108 mmol/L High 98-107 [facility] Comment on above: Performed By: #### 2 4323-8 ####GARRY NGMOTZER L ([id number])[facility] ([facility])[address]62 [place] [address] CO2 [Moles/Vol] 23 mmol/L Normal 21-32 [facility] Comment on above: Performed By: #### 2 4323-8 ####GARRY PEREZ L (85845)[facility] ([facility])[address]107 [place] [address] Creatinine [Mass/Vol] 0.62 mg/dL Normal 0.50-1.05 [facility] Comment on above: Performed By: #### 2 4323-8 ####GARRY PEREZ L (63897)[facility] ([facility])[address]405 [place] [address] GFR/1.73 sq M.predicted MDRD (S/P/Bld) [Vol rate/Area] mL/min/{1.73_m2} Normal >60 [facility] Comment on above: Result Comment: Calc ulations of estimated GFR are performed using the 2020 CKD-EPI Study Refit equation without the race variable for the IDMS-Traceable creatinine methods.https://jasn.asnjournals.org/content/early// N.4285995136 Performed By: #### 2 4323-8 ####GARRY PEREZ L ([id number])[facility] ([facility])[address]210 [place] [address] Glucose [Mass/Vol] 34 mg/dL Critically low 74-99 [facility] Comment on above: Performed By: #### 2 4323-8 ####GARRY PEREZ L (66475)[facility] ([facility])[address]01 [place] [address] Potassium [Moles/Vol] 4.4 mmol/L Normal 3.5-5.3 [facility] Comment on above: Performed By: #### 2 4323-8 ####GARRY Schmid (53671)[facility] ([facility])[address]289 [place] [address] Protein [Mass/Vol] 4.8 g/dL Low 6.4-8.2 [facility] Comment on above: Performed By: #### 2 4323-8 ####GARRY Schmid ([id number])[facility] ([facility])[address]20 [place] [address] Sodium [Moles/Vol] 139 mmol/L Normal 136-145 [facility] Comment on above: Performed By: #### 2 4323-8 ####GARRY Schmid (76014)[facility] ([facility])25582 [place] [address] Urea nitrogen [Mass/Vol] 8 mg/dL Normal 6-23 [facility] Comment on above: Performed By: #### 2 4323-8 ####GARRY Schmid (82325)[facility] ([facility])[address]60 [place] [address] Glucose Test strip manual (B ld) [Mass/Vol]on 10-15-2023 Glucose [Mass/Vol] 131 mg/dL High 74-99 [facility] Comment on above: Performed By: #### 2 341-6 ####GARRY Schmid (81582)[facility] ([facility])[address]381 [place] [address] Glucose [Mass/Vol] 37 mg/dL Low 74-99 [facility] Comment on above: Performed By: #### 2 341-6 ####GARRY Schmid ([id number])[facility] ([facility])[address]958 [place] [address] Glucose [Mass/Vol] 63 mg/dL Low 74-99 [facility] Comment on above: Performed By: #### 2 341-6 ####GARRY Schmid (70849)[facility] ([facility])86994 [place] [address] Glucose [Mass/Vol] 136 mg/dL High 74-99 [facility] Comment on above: Performed By: #### 2 341-6 ####GARRY Schmid (54002)[facility] ([facility])[address]016 [place] [address] Glucose [Mass/Vol] 154 mg/dL High 74-99 [facility] Comment on above: Performed By: #### 2 341-6 ####GARRY Schmid (30427)[facility] ([facility])[address]218 [place] [address] Glucose [Mass/Vol] 47 mg/dL Low 74-99 [facility] Comment on above: Performed By: #### 2 341-6 ####GARRY Schmid ([id number])[facility] ([facility])[address]31 [place] [address] Glucose [Mass/Vol] 43 mg/dL Low 74-99 [facility] Comment on above: Performed By: #### 2 341-6 ####GARRY Schmid ([id number])[facility] ([facility])[address]214 [place] [address] Glucose [Mass/Vol] 93 mg/dL Normal 74-99 [facility] Comment on above: Performed By: #### 2 341-6 ####GARRY Schmid (52366)[facility] ([facility])[address]193 [place] [address] Magnesiumon 10-15-2023 Magnesium [Mass/Vol] 2.08 mg/dL Normal 1.60-2.40 [facility] Comment on above: Performed By: #### 1 9123-9 ####GARRY Schmid ([id number])[facility] ([facility])[address]277 [place] [address] PICC >5 YR BEDSIDE IMAGINGon 10-15-2023 PICC >5 YR BEDSIDE IMAGING These images are not reportable by radiology and will not be interpreted by Radiologists. Normal [facility] Staphylococcus aureus.methic illin resistant isolateon 10-15-2023 MRSA isol Org specific cx Ql (Nose) Normal [facility] Comment on above: Performed By: #### 5 2969-3 ####GARRY Schmid ([id number])[facility] ([facility])[address] [place] [address]382 CBC panel Auto (Bld)on 10-14 Erythrocyte distribution width (RBC) [Ratio] 14.8 % High 11.5-14.5 [facility] Comment on above: Performed By: #### 5 8410-2 ####GARRY Schmid (76721)[facility] ([facility])[address]45 [place] [address] Hematocrit (Bld) [Volume fraction] 34.7 % Low 36.0-46.0 [facility] Comment on above: Performed By: #### 5 8410-2 ####GARRY Schmid (78864)[facility] ([facility])[address]50 [place] [address] Hemoglobin (Bld) [Mass/Vol] 11.3 g/dL Low 12.0-16.0 [facility] Comment on above: Performed By: #### 5 8410-2 ####GARRY Schmid ([id number])[facility] ([facility])[address] [place] [address] MCH (RBC) [Entitic mass] 31.7 pg Normal 26.0-34.0 [facility] Comment on above: Performed By: #### 5 8410-2 ####GARRY Schmid (33348)[facility] ([facility])[address]32 [place] [address] MCHC (RBC) [Mass/Vol] 32.6 g/dL Normal 32.0-36.0 [facility] Comment on above: Performed By: #### 5 8410-2 ####GARRY Schmid (65304)[facility] ([facility])[address]11 [place] [address] MCV (RBC) [Entitic vol] 98 fL Normal 80-100 [facility] Comment on above: Performed By: #### 5 8410-2 ####GARRY Schmid (26654)[facility] ([facility])24779 [place] [address] Nucleated RBC/100 WBC (Bld) [Ratio] 0.3 /100 WBCs High 0.0-0.0 [facility] Comment on above: Performed By: #### 5 8410-2 ####GARRY Schmid ([id number])[facility] ([facility])[address] [place] [address]6791 Platelets (Bld) [#/Vol] 238 x10*3/uL Normal 150-450 [facility] Comment on above: Performed By: #### 5 8410-2 ####GARRY Schmid ([id number])[facility] ([facility])[address] [place] [address] RBC (Bld) [#/Vol] 3.56 x10*6/uL Low 4.00-5.20 [facility] Comment on above: Performed By: #### 5 8410-2 ####GARRY Schmid ([id number])[facility] ([facility])[address] [place] [address]99 WBC (Bld) [#/Vol] 7.8 x10*3/uL Normal 4.4-11.3 [facility] Comment on above: Performed By: #### 5 8410-2 ####GARRY PEREZ L (90769)[facility] ([facility])[address] [place] [address] Erythrocyte distribution width (RBC) [Ratio] 13.4 % Normal 11.5-14.5 [facility] Comment on above: Order Comment: Pleas e obtain after 1 hour after 2/2 prbc transfusion. Performed By: #### 5 8410-2 ####GARRY Schmid (86976)[facility] ([facility])[address]351 [place] [address] Hematocrit (Bld) [Volume fraction] 29.9 % Low 36.0-46.0 [facility] Comment on above: Order Comment: Pleas e obtain after 1 hour after 2/2 prbc transfusion. Performed By: #### 5 8410-2 ####GARRY Schmid ([id number])[facility] ([facility])[address]193 [place] [address] Hemoglobin (Bld) [Mass/Vol] 10.3 g/dL Low 12.0-16.0 [facility] Comment on above: Order Comment: Pleas e obtain after 1 hour after 2/2 prbc transfusion. Performed By: #### 5 8410-2 ####GARRY Schmid (23589)[facility] ([facility])[address]375 [place] [address] MCH (RBC) [Entitic mass] 30.7 pg Normal 26.0-34.0 [facility] Comment on above: Order Comment: Pleas e obtain after 1 hour after 2/2 prbc transfusion. Performed By: #### 5 8410-2 ####GARRY Schmid (78593)[facility] ([facility])[address]79 [place] [address] MCHC (RBC) [Mass/Vol] 34.4 g/dL Normal 32.0-36.0 [facility] Comment on above: Order Comment: Pleas e obtain after 1 hour after 2/2 prbc transfusion. Performed By: #### 5 8410-2 ####GARRY Schmid ([id number])[facility] ([facility])[address]88 [place] [address] MCV (RBC) [Entitic vol] 89 fL Normal 80-100 [facility] Comment on above: Order Comment: Pleas e obtain after 1 hour after 2/2 prbc transfusion. Performed By: #### 5 8410-2 ####GARRY Schmid (26475)[facility] ([facility])54776 [place] [address] Nucleated RBC/100 WBC (Bld) [Ratio] 0.2 /100 WBCs High 0.0-0.0 [facility] Comment on above: Order Comment: Pleas e obtain after 1 hour after 2/2 prbc transfusion. Performed By: #### 5 8410-2 ####GARRY Schmid (68733)[facility] ([facility])33649 [place] [address] Platelets (Bld) [#/Vol] 209 x10*3/uL Normal 150-450 [facility] Comment on above: Order Comment: Pleas e obtain after 1 hour after 2/2 prbc transfusion. Performed By: #### 5 8410-2 ####GARRY Schmid ([id number])[facility] ([facility])[address]21 [place] [address] RBC (Bld) [#/Vol] 3.36 x10*6/uL Low 4.00-5.20 [facility] Comment on above: Order Comment: Pleas e obtain after 1 hour after 2/2 prbc transfusion. Performed By: #### 5 8410-2 ####GARRY Schmid ([id number])[facility] ([facility])15691 [place] [address] WBC (Bld) [#/Vol] 9.4 x10*3/uL Normal 4.4-11.3 [facility] Comment on above: Order Comment: Pleas e obtain after 1 hour after 2/2 prbc transfusion. Performed By: #### 5 8410-2 ####GARRY Schmid ([id number])[facility] ([facility])[address]82 [place] [address] Comprehensive metabolic 2000 panelon 10-14-2023 Albumin BCP dye [Mass/Vol] 2.8 g/dL Low 3.4-5.0 [facility] Comment on above: Performed By: #### 2 4323-8 ####GARRY Schmid (32606)[facility] ([facility])13313 [place] [address] ALP [Catalytic activity/Vol] 63 U/L Normal 33-110 [facility] Comment on above: Performed By: #### 2 4323-8 ####GARRY Schmid ([id number])[facility] ([facility])[address]93 [place] [address] ALT With P-5'-P [Catalytic activity/Vol] 63 U/L High 7-45 [facility] Comment on above: Result Comment: Gianna ents treated with Sulfasalazine may generate falsely decreased results for ALT. Performed By: #### 2 4323-8 ####GARRY Schmid ([id number])[facility] ([facility])[address]15 [place] [address] Anion gap [Moles/Vol] 10 mmol/L Normal 10-20 [facility] Comment on above: Performed By: #### 2 4323-8 ####GARRY Schmid (61146)[facility] ([facility])[address]37 [place] [address] AST With P-5'-P [Catalytic activity/Vol] 170 U/L High 9-39 [facility] Comment on above: Performed By: #### 2 4323-8 ####GARRY Schmid ([id number])[facility] ([facility])[address]99 [place] [address] Bilirubin [Mass/Vol] 0.5 mg/dL Normal 0.0-1.2 [facility] Comment on above: Performed By: #### 2 4323-8 ####GARRY Schmid (05245)[facility] ([facility])[address]62 [place] [address] Calcium [Mass/Vol] 7.7 mg/dL Low 8.6-10.6 [facility] Comment on above: Performed By: #### 2 4323-8 ####GARRY Schmid (40278)[facility] ([facility])79442 [place] [address] Chloride [Moles/Vol] 107 mmol/L Normal 98-107 [facility] Comment on above: Performed By: #### 2 4323-8 ####GARRY Schmid ([id number])[facility] ([facility])[address] [place] [address] CO2 [Moles/Vol] 24 mmol/L Normal 21-32 [facility] Comment on above: Performed By: #### 2 4323-8 ####GARRY Schmid (83973)[facility] ([facility])[address]336 [place] [address] Creatinine [Mass/Vol] 0.56 mg/dL Normal 0.50-1.05 [facility] Comment on above: Performed By: #### 2 4323-8 ####GARRY Schmid (90787)[facility] ([facility])[address]366 [place] [address] GFR/1.73 sq M.predicted MDRD (S/P/Bld) [Vol rate/Area] mL/min/{1.73_m2} Normal >60 [facility] Comment on above: Result Comment: Calc ulations of estimated GFR are performed using the 2020 CKD-EPI Study Refit equation without the race variable for the IDMS-Traceable creatinine methods.https://jasn.asnjournals.org/content// N.7675939360 Performed By: #### 2 4323-8 ####GARRY Schmid ([id number])[facility] ([facility])[address]36 [place] [address] Glucose [Mass/Vol] 91 mg/dL Normal 74-99 [facility] Comment on above: Performed By: #### 2 4323-8 ####GARRY Schmid ([id number])[facility] ([facility])[address]27 [place] [address] Potassium [Moles/Vol] 3.8 mmol/L Normal 3.5-5.3 [facility] Comment on above: Performed By: #### 2 4323-8 ####GARRY Schmid ([id number])[facility] ([facility])[address]21 [place] [address] Protein [Mass/Vol] 5.0 g/dL Low 6.4-8.2 [facility] Comment on above: Performed By: #### 2 4323-8 ####GARRY Schmid (57857)[facility] ([facility])[address]72 [place] [address] Sodium [Moles/Vol] 137 mmol/L Normal 136-145 [facility] Comment on above: Performed By: #### 2 4323-8 ####GARRY Schmid (07659)[facility] ([facility])[address] [place] [address] Urea nitrogen [Mass/Vol] 7 mg/dL Normal 6-23 [facility] Comment on above: Performed By: #### 2 4323-8 ####GARRY Schmid ([id number])[facility] ([facility])[address] [place] [address] Glucose Test strip manual (B ld) [Mass/Vol]on 10-14-2023 Glucose [Mass/Vol] 83 mg/dL Normal 74-99 [facility] Comment on above: Performed By: #### 2 341-6 ####GARRY Schmid ([id number])[facility] ([facility])[address] [place] [address] Glucose [Mass/Vol] 84 mg/dL Normal 74-99 [facility] Comment on above: Performed By: #### 2 341-6 ####GARRY Schmid ([id number])[facility] ([facility])[address] [place] [address] Glucose [Mass/Vol] 104 mg/dL High 74-99 [facility] Comment on above: Performed By: #### 2 341-6 ####GARRY Schmid ([id number])[facility] ([facility])[address] [place] [address] Glucose [Mass/Vol] 70 mg/dL Low 74-99 [facility] Comment on above: Performed By: #### 2 341-6 ####GARRY PEREZ L ([id number])[facility] ([facility])[address] [place] [address] Glucose [Mass/Vol] 83 mg/dL Normal 74-99 [facility] Comment on above: Performed By: #### 2 341-6 ####GARRY Schmid ([id number])[facility] ([facility])[address] [place] [address] Glucose [Mass/Vol] 47 mg/dL Low 74-99 [facility] Comment on above: Performed By: #### 2 341-6 ####GARRY Schmid ([id number])[facility] ([facility])[address] [place] [address] Glucose [Mass/Vol] 128 mg/dL High 74-99 [facility] Comment on above: Performed By: #### 2 341-6 ####GARRY Schmid ([id number])[facility] ([facility])[address] [place] [address] Magnesiumon 10-14-2023 Magnesium [Mass/Vol] 2.16 mg/dL Normal 1.60-2.40 [facility] Comment on above: Performed By: #### 1 9123-9 ####GARRY Schmid ([id number])[facility] ([facility])[address]014 [place] [address] Triglycerideon 10-14-2023 Triglyceride (Body fld) [Mass/Vol] 326 mg/dL Normal No established [facility] Comment on above: Order Comment: Pleas e send from L drain (this is not a repeat lab)The performance characteristics of this test have been validated on peritoneal/ascites,pleural, pericardial and drain fluid by the [facility] laboratory. This test has not been approved by the FDA; however, such approval is not necessary. Performed By: #### 1 2228-3 ####GARRY Schmid ([id number])[facility] ([facility])[address]148 [place] [address] Triglyceride (Body fld) [Mass/Vol] 280 mg/dL Normal No established [facility] Comment on above: Order Comment: Juliet rivera in Result Comment: The performance characteristics of this method have not been validated for use with this fluid specimen type. The test result should be interpreted in conjunction with additional clinical and laboratory data. Performed By: #### 1 2228-3 ####GARRY Schmid ([id number])[facility] ([facility])[address] [place] [address] Blood type and Indirect anti body screen panel (Bld)on 10-13-2023 ABO group Nom (Bld) A Normal [facility] Comment on above: Performed By: #### 3 4532-2 ####GARRY Schmid ([id number])[facility] ([facility])[address] [place] [address] Blood group antibody screen Ql Negative Normal [facility] Comment on above: Performed By: #### 3 4532-2 ####GARRY Schmid ([id number])[facility] ([facility])[address] [place] [address] D Ag Ql (Bld) Positive Normal [facility] Comment on above: Performed By: #### 3 4532-2 ####GARRY Schmid ([id number])[facility] ([facility])[address] [place] [address] CBC panel Auto (Bld)on 10-13 Erythrocyte distribution width (RBC) [Ratio] 13.3 % Normal 11.5-14.5 [facility] Comment on above: Performed By: #### 5 8410-2 ####GARRY Schmid ([id number])[facility] ([facility])[address] [place] [address] Hematocrit (Bld) [Volume fraction] 17.1 % Low 36.0-46.0 [facility] Comment on above: Performed By: #### 5 8410-2 ####GARRY Schmid ([id number])[facility] ([facility])[address] [place] [address] Hemoglobin (Bld) [Mass/Vol] 5.6 g/dL Critically low 12.0-16.0 [facility] Comment on above: Performed By: #### 5 8410-2 ####GARRY Schmid ([id number])[facility] ([facility])[address] [place] [address] MCH (RBC) [Entitic mass] 30.8 pg Normal 26.0-34.0 [facility] Comment on above: Performed By: #### 5 8410-2 ####GARRY Schmid ([id number])[facility] ([facility])[address] [place] [address] MCHC (RBC) [Mass/Vol] 32.7 g/dL Normal 32.0-36.0 [facility] Comment on above: Performed By: #### 5 8410-2 ####GARRY Schmid ([id number])[facility] ([facility])[address] [place] [address] MCV (RBC) [Entitic vol] 94 fL Normal 80-100 [facility] Comment on above: Performed By: #### 5 8410-2 ####GARRY Schmid ([id number])[facility] ([facility])[address] [place] [address] Nucleated RBC/100 WBC (Bld) [Ratio] 0.0 /100 WBCs Normal 0.0-0.0 [facility] Comment on above: Performed By: #### 5 8410-2 ####GARRY Schmid ([id number])[facility] ([facility])[address] [place] [address] Platelets (Bld) [#/Vol] 238 x10*3/uL Normal 150-450 [facility] Comment on above: Performed By: #### 5 8410-2 ####GARRY Schmid (45251)[facility] ([facility])[address] [place] [address] RBC (Bld) [#/Vol] 1.82 x10*6/uL Low 4.00-5.20 [facility] Comment on above: Performed By: #### 5 8410-2 ####GARRY Schmid ([id number])[facility] ([facility])[address]44 [place] [address] WBC (Bld) [#/Vol] 9.2 x10*3/uL Normal 4.4-11.3 [facility] Comment on above: Performed By: #### 5 8410-2 ####GARRY Schmid ([id number])[facility] ([facility])[address] [place] [address] Erythrocyte distribution width (RBC) [Ratio] 13.2 % Normal 11.5-14.5 [facility] Comment on above: Performed By: #### 5 8410-2 ####GARRY Schmid (28786)[facility] ([facility])[address]90 [place] [address] Hematocrit (Bld) [Volume fraction] 17.2 % Low 36.0-46.0 [facility] Comment on above: Performed By: #### 5 8410-2 ####GARRY Schmid ([id number])[facility] ([facility])[address]67 [place] [address] Hemoglobin (Bld) [Mass/Vol] 5.8 g/dL Critically low 12.0-16.0 [facility] Comment on above: Performed By: #### 5 8410-2 ####GARRY Schmid (00989)[facility] ([facility])[address]36 [place] [address] MCH (RBC) [Entitic mass] 31.9 pg Normal 26.0-34.0 [facility] Comment on above: Performed By: #### 5 8410-2 ####GARRY Schmid ([id number])[facility] ([facility])[address]782 [place] [address] MCHC (RBC) [Mass/Vol] 33.7 g/dL Normal 32.0-36.0 [facility] Comment on above: Performed By: #### 5 8410-2 ####GARRY Schmid (67435)[facility] ([facility])[address]114 [place] [address] MCV (RBC) [Entitic vol] 95 fL Normal 80-100 [facility] Comment on above: Performed By: #### 5 8410-2 ####GARRY Schmid ([id number])[facility] ([facility])[address]66 [place] [address] Nucleated RBC/100 WBC (Bld) [Ratio] 0.2 /100 WBCs High 0.0-0.0 [facility] Comment on above: Performed By: #### 5 8410-2 ####GARRY Schmid ([id number])[facility] ([facility])[address]32 [place] [address] Platelets (Bld) [#/Vol] 233 x10*3/uL Normal 150-450 [facility] Comment on above: Performed By: #### 5 8410-2 ####GARRY Schmid ([id number])[facility] ([facility])[address] [place] [address] RBC (Bld) [#/Vol] 1.82 x10*6/uL Low 4.00-5.20 [facility] Comment on above: Performed By: #### 5 8410-2 ####GARRY Schmid (28553)[facility] ([facility])[address]226 [place] [address] WBC (Bld) [#/Vol] 9.3 x10*3/uL Normal 4.4-11.3 [facility] Comment on above: Performed By: #### 5 8410-2 ####GARRY Schmid ([id number])[facility] ([facility])[address] [place] [address] Comprehensive metabolic 2000 panelon 10-13-2023 Albumin BCP dye [Mass/Vol] 2.5 g/dL Low 3.4-5.0 [facility] Comment on above: Performed By: #### 2 4323-8 ####GARRY Schmid ([id number])[facility] ([facility])[address]384 [place] [address] ALP [Catalytic activity/Vol] 53 U/L Normal 33-110 [facility] Comment on above: Performed By: #### 2 4323-8 ####GARRY Schmid ([id number])[facility] ([facility])[address]220 [place] [address] ALT With P-5'-P [Catalytic activity/Vol] 60 U/L High 7-45 [facility] Comment on above: Result Comment: Gianna ents treated with Sulfasalazine may generate falsely decreased results for ALT. Performed By: #### 2 4323-8 ####GARRY Schmid ([id number])[facility] ([facility])[address] [place] [address] Anion gap [Moles/Vol] 9 mmol/L Low 10-20 [facility] Comment on above: Performed By: #### 2 4323-8 ####GARRY PEREZ L ([id number])[facility] ([facility])[address]121 [place] [address] AST With P-5'-P [Catalytic activity/Vol] 192 U/L High 9-39 [facility] Comment on above: Performed By: #### 2 4323-8 ####GARRY PEREZ L ([id number])[facility] ([facility])[address]606 [place] [address] Bilirubin [Mass/Vol] 0.2 mg/dL Normal 0.0-1.2 [facility] Comment on above: Performed By: #### 2 4323-8 ####GARRY Schmid ([id number])[facility] ([facility])[address]640 [place] [address] Calcium [Mass/Vol] 7.2 mg/dL Low 8.6-10.6 [facility] Comment on above: Performed By: #### 2 4323-8 ####GARRY Schmid ([id number])[facility] ([facility])[address]22 [place] [address] Chloride [Moles/Vol] 106 mmol/L Normal 98-107 [facility] Comment on above: Performed By: #### 2 4323-8 ####GARRY PEREZ L ([id number])[facility] ([facility])[address]82 [place] [address] CO2 [Moles/Vol] 26 mmol/L Normal 21-32 [facility] Comment on above: Performed By: #### 2 4323-8 ####GARRY Schmid ([id number])[facility] ([facility])[address] [place] [address] Creatinine [Mass/Vol] 0.56 mg/dL Normal 0.50-1.05 [facility] Comment on above: Performed By: #### 2 4323-8 ####GARRY Schmid (79038)[facility] ([facility])[address]37 [place] [address] GFR/1.73 sq M.predicted MDRD (S/P/Bld) [Vol rate/Area] mL/min/{1.73_m2} Normal >60 [facility] Comment on above: Result Comment: Calc ulations of estimated GFR are performed using the 2020 CKD-EPI Study Refit equation without the race variable for the IDMS-Traceable creatinine methods.https://jasn.asnjournals.org/content/early/ N.0369314995 Performed By: #### 2 4323-8 ####GARRY Schmid ([id number])[facility] ([facility])[address]25 [place] [address] Glucose [Mass/Vol] 114 mg/dL High 74-99 [facility] Comment on above: Performed By: #### 2 4323-8 ####GARRY Schmid ([id number])[facility] ([facility])[address]654 [place] [address] Potassium [Moles/Vol] 4.2 mmol/L Normal 3.5-5.3 [facility] Comment on above: Performed By: #### 2 4323-8 ####GARRY Schmid (94458)[facility] ([facility])[address]01 [place] [address] Protein [Mass/Vol] 4.3 g/dL Low 6.4-8.2 [facility] Comment on above: Performed By: #### 2 4323-8 ####GARRY Schmid ([id number])[facility] ([facility])[address]305 [place] [address] Sodium [Moles/Vol] 137 mmol/L Normal 136-145 [facility] Comment on above: Performed By: #### 2 4323-8 ####GARRY Schmid ([id number])[facility] ([facility])[address]98 [place] [address] Urea nitrogen [Mass/Vol] 8 mg/dL Normal 6-23 [facility] Comment on above: Performed By: #### 2 4323-8 ####GARRY Schmid (48671)[facility] ([facility])[address]232 [place] [address] Glucose Test strip manual (B ld) [Mass/Vol]on 10-13-2023 Glucose [Mass/Vol] 90 mg/dL Normal 74-99 [facility] Comment on above: Performed By: #### 2 341-6 ####GARRY Schmid (53455)[facility] ([facility])[address]33 [place] [address] Glucose [Mass/Vol] 56 mg/dL Low 74-99 [facility] Comment on above: Performed By: #### 2 341-6 ####GARRY Schmid ([id number])[facility] ([facility])[address]36 [facility] [place] [address] Glucose [Mass/Vol] 68 mg/dL Low -[address] [place] [address] Comment on above: Performed By: #### 2 341-6 ####GARRY Schmid ([id number])[facility] ([facility])[address] [place] [address] Glucose [Mass/Vol] 85 mg/dL Normal 74-99 [facility] Comment on above: Performed By: #### 2 341-6 ####GARRY Schmid ([id number])[facility] ([facility])28186 [place] [address] Glucose [Mass/Vol] 120 mg/dL High -[address] [place] [address] Comment on above: Performed By: #### 2 341-6 ####GARRY Schmid (76369)[facility] ([facility])[address]386 [place] [address] Glucose [Mass/Vol] 102 mg/dL High -[address] [place] [address] Comment on above: Performed By: #### 2 341-6 ####GARRY Schmid ([id number])[facility] ([facility])[address]329 [place] [address] Glucose [Mass/Vol] 112 mg/dL High [address] [place] [address] Comment on above: Performed By: #### 2 341-6 ####GARRY Schmid ([id number])[facility] ([facility])[address]99 [place] [address] Magnesiumon 10-13-2023 Magnesium [Mass/Vol] 2.20 mg/dL Normal 1.60-2.40 [facility] Comment on above: Performed By: #### 1 9123-9 ####GARRY Schmid ([id number])[facility] ([facility])[address]86 [place] [address] Triglycerideon 10-13-2023 Triglyceride (Body fld) [Mass/Vol] 808 mg/dL Normal No established [facility] Comment on above: Order Comment: LEFT side Result Comment: The performance characteristics of this method have not been validated for use with this fluid specimen type. The test result should be interpreted in conjunction with additional clinical and laboratory data. Performed By: #### 1 2228-3 ####GARRY Schmid ([id number])[facility] ([facility])[address]62 [place] [address] Triglyceride (Body fld) [Mass/Vol] 833 mg/dL Normal No established [facility] Comment on above: Result Comment: The performance characteristics of this method have not been validated for use with this fluid specimen type. The test result should be interpreted in conjunction with additional clinical and laboratory data. Performed By: #### 1 2228-3 ####GARRY Schmid ([id number])[facility] ([facility])[address] [place] [address] CBC panel Auto (Bld)on 10-12 Erythrocyte distribution width (RBC) [Ratio] 13.0 % Normal 11.5-14.5 [facility] Comment on above: Performed By: #### 5 8410-2 ####GARRY Schmid ([id number])[facility] ([facility])[address] [place] [address] Hematocrit (Bld) [Volume fraction] 24.7 % Low 36.0-46.0 [facility] Comment on above: Performed By: #### 5 8410-2 ####GARRY PEREZ L (69690)[facility] ([facility])[address] [place] [address] Hemoglobin (Bld) [Mass/Vol] 7.7 g/dL Low 12.0-16.0 [facility] Comment on above: Performed By: #### 5 8410-2 ####GARRY PEREZ L (69850)[facility] ([facility])96256 [place] [address] MCH (RBC) [Entitic mass] 30.3 pg Normal 26.0-34.0 [facility] Comment on above: Performed By: #### 5 8410-2 ####GARRY Schmid ([id number])[facility] ([facility])45667 [place] [address] MCHC (RBC) [Mass/Vol] 31.2 g/dL Low 32.0-36.0 [facility] Comment on above: Performed By: #### 5 8410-2 ####GARRY Schmid (56606)[facility] ([facility])41438 [place] [address] MCV (RBC) [Entitic vol] 97 fL Normal 80-100 [facility] Comment on above: Performed By: #### 5 8410-2 ####GARRY Schmid ([id number])[facility] ([facility])[address] [place] [address] Nucleated RBC/100 WBC (Bld) [Ratio] 0.3 /100 WBCs High 0.0-0.0 [facility] Comment on above: Performed By: #### 5 8410-2 ####GARRY Schmid ([id number])[facility] ([facility])75698 [place] [address] Platelets (Bld) [#/Vol] 163 x10*3/uL Normal 150-450 [facility] Comment on above: Performed By: #### 5 8410-2 ####GARRY Schmid ([id number])[facility] ([facility])62884 [place] [address] RBC (Bld) [#/Vol] 2.54 x10*6/uL Low 4.00-5.20 [facility] Comment on above: Performed By: #### 5 8410-2 ####GARRY PEREZ L ([id number])[facility] ([facility])[address]22 [place] [address] WBC (Bld) [#/Vol] 10.4 x10*3/uL Normal 4.4-11.3 [facility] Comment on above: Performed By: #### 5 8410-2 ####GARRY Schmid ([id number])[facility] ([facility])33848 [place] [address] Comprehensive metabolic 2000 panelon 10-12-2023 Albumin BCP dye [Mass/Vol] 2.9 g/dL Low 3.4-5.0 [facility] Comment on above: Performed By: #### 2 4323-8 ####GARRY Schmid (67404)[facility] ([facility])[address]303 [place] [address] ALP [Catalytic activity/Vol] 54 U/L Normal 33-110 [facility] Comment on above: Performed By: #### 2 4323-8 ####GARRY Schmid ([id number])[facility] ([facility])[address]93 [place] [address] ALT With P-5'-P [Catalytic activity/Vol] 51 U/L High 7-45 [facility] Comment on above: Result Comment: Gianna ents treated with Sulfasalazine may generate falsely decreased results for ALT. Performed By: #### 2 4323-8 ####GARRY Schmid ([id number])[facility] ([facility])[address]058 [place] [address] Anion gap [Moles/Vol] 13 mmol/L Normal 10-20 [facility] Comment on above: Performed By: #### 2 4323-8 ####GARRY Schmid ([id number])[facility] ([facility])04133 [place] [address] AST With P-5'-P [Catalytic activity/Vol] 162 U/L High 9-39 [facility] Comment on above: Performed By: #### 2 4323-8 ####GARRY Schmid ([id number])[facility] ([facility])[address]4793 [place] [address] Bilirubin [Mass/Vol] 0.7 mg/dL Normal 0.0-1.2 [facility] Comment on above: Performed By: #### 2 4323-8 ####GARRY Schmid (26715)[facility] ([facility])[address]1898 [place] [address] Calcium [Mass/Vol] 7.6 mg/dL Low 8.6-10.6 [facility] Comment on above: Performed By: #### 2 4323-8 ####GARRY PEREZ L (97904)[facility] ([facility])10646 [place] [address] Chloride [Moles/Vol] 105 mmol/L Normal 98-107 [facility] Comment on above: Performed By: #### 2 4323-8 ####GARRY PEREZ L (11550)[facility] ([facility])[address]74 [place] [address] CO2 [Moles/Vol] 21 mmol/L Normal 21-32 [facility] Comment on above: Performed By: #### 2 4323-8 ####GARRY PEREZ L ([id number])[facility] ([facility])[address]04 [place] [address] Creatinine [Mass/Vol] 0.79 mg/dL Normal 0.50-1.05 [facility] Comment on above: Performed By: #### 2 4323-8 ####GARRY PEREZ L (24471)[facility] ([facility])[address]641 [place] [address] GFR/1.73 sq M.predicted MDRD (S/P/Bld) [Vol rate/Area] mL/min/{1.73_m2} Normal >60 [facility] Comment on above: Result Comment: Calc ulations of estimated GFR are performed using the 2020 CKD-EPI Study Refit equation without the race variable for the IDMS-Traceable creatinine methods.https://jasn.asnjournals.org/content/early/ N.0069599432 Performed By: #### 2 4323-8 ####GARRY PEREZ L (51512)[facility] ([facility])[address]212 [place] [address] Glucose [Mass/Vol] 112 mg/dL High 74-99 [facility] Comment on above: Performed By: #### 2 4323-8 ####GARRY Schmid ([id number])[facility] ([facility])[address]86 [place] [address] Potassium [Moles/Vol] 4.1 mmol/L Normal 3.5-5.3 [facility] Comment on above: Performed By: #### 2 4323-8 ####GARRY Schmid ([id number])[facility] ([facility])[address]28 [place] [address] Protein [Mass/Vol] 5.1 g/dL Low 6.4-8.2 [facility] Comment on above: Performed By: #### 2 4323-8 ####GARRY Schmid ([id number])[facility] ([facility])[address]33 [place] [address] Sodium [Moles/Vol] 135 mmol/L Low 136-145 [facility] Comment on above: Performed By: #### 2 4323-8 ####GARRY Schmid ([id number])[facility] ([facility])[id number] [place] [address] Urea nitrogen [Mass/Vol] 12 mg/dL Normal 6-23 [facility] Comment on above: Performed By: #### 2 4323-8 ####GARRY Schmid ([id number])[facility] ([facility])[id number] [place] [id number] Glucose Test strip manual (B ld) [Mass/Vol]on 10-12-2023 Glucose [Mass/Vol] 141 mg/dL High 74-99 [facility] Comment on above: Performed By: #### 2 341-6 ####GARRY Schmid ([id number])[facility] ([facility])[address] [place] [address] Glucose [Mass/Vol] 170 mg/dL High 74-99 [facility] Comment on above: Performed By: #### 2 341-6 ####GARRY Schmid ([id number])[facility] ([facility])[address] [place] [address] Glucose [Mass/Vol] 42 mg/dL Low 74-99 [facility] Comment on above: Performed By: #### 2 341-6 ####GARRY Schmid ([id number])[facility] [facility])[address] [place] [address] Glucose [Mass/Vol] 42 mg/dL Low 74-99 [facility] Comment on above: Performed By: #### 2 341-6 ####GARRY Schmid ([id number])[facility] ([facility])[address] [place] [address] Glucose [Mass/Vol] 78 mg/dL Normal [address] [place] [address] Comment on above: Performed By: #### 2 341-6 ####GARRY Schmid ([id number])[facility] ([facility])[address]54 [place] [address] Glucose [Mass/Vol] 97 mg/dL Normal -99 [facility] Comment on above: Performed By: #### 2 341-6 ####GARRY Schmid ([id number])[facility] ([facility])[address]64 [place] [address] Glucose [Mass/Vol] 108 mg/dL High -99 [facility] Comment on above: Performed By: #### 2 341-6 ####GARRY Schmid ([id number])[facility] ([facility])[address]708 [place] [address] Glucose [Mass/Vol] 129 mg/dL High -99 [facility] Comment on above: Performed By: #### 2 341-6 ####GARRY Schmid ([id number])[facility] ([facility])[address]66 [place] [address] Magnesiumon 10-12-2023 Magnesium [Mass/Vol] 2.24 mg/dL Normal 1.60-2.40 [facility] Comment on above: Performed By: #### 1 9123-9 ####GARRY Schmid ([id number])[facility] ([facility])[address] [place] [address] PT and aPTT panel Coag (PPP) on 10-12-2023 aPTT Coag (PPP) [Time] 24 s Low 27-38 [facility] Comment on above: Order Comment: The A PTT is no longer used for monitoring Unfractionated Heparin Therapy. For monitoring Heparin Therapy, use the Heparin Assay. Performed By: #### 3 4529-8 ####GARRY Schmid ([id number])[facility] ([facility])[address] [place] [address] INR Coag (PPP) [Relative time] 1.1 Normal 0.9-1.1 [facility] Comment on above: Order Comment: The A PTT is no longer used for monitoring Unfractionated Heparin Therapy. For monitoring Heparin Therapy, use the Heparin Assay. Performed By: #### 3 4529-8 ####GARRY Schmid ([id number])[facility] ([facility])[address] [place] [address] PT Coag (PPP) [Time] 12.2 s Normal 9.8-12.8 [facility] Comment on above: Order Comment: The A PTT is no longer used for monitoring Unfractionated Heparin Therapy. For monitoring Heparin Therapy, use the Heparin Assay. Performed By: #### 3 4529-8 ####GARRY Schmid ([id number])[facility] ([facility])[address] [place] [address] Basic metabolic 2000 panelon 10-11-2023 Anion gap [Moles/Vol] 11 mmol/L Normal 10-20 [facility] Comment on above: Performed By: #### 2 4321-2 ####GARRY Schmid ([id number])[facility] ([facility])[address] [place] [address] Calcium [Mass/Vol] 7.4 mg/dL Low 8.6-10.6 [facility] Comment on above: Performed By: #### 2 4321-2 ####GARRY Schmid ([id number])[facility] ([facility])[address] [place] [address] Chloride [Moles/Vol] 106 mmol/L Normal 98-107 [facility] Comment on above: Performed By: #### 2 4321-2 ####GARRY Schmid ([id number])[facility] ([facility])[address]50 [place] [address] CO2 [Moles/Vol] 23 mmol/L Normal 21-32 [facility] Comment on above: Performed By: #### 2 4321-2 ####GARRY Schmid ([id number])[facility] ([facility])[address]242 [place] [address] Creatinine [Mass/Vol] 0.56 mg/dL Normal 0.50-1.05 [facility] Comment on above: Performed By: #### 2 4321-2 ####GARRY Schmid ([id number])[facility] ([facility])[address]65 [place] [address] GFR/1.73 sq M.predicted MDRD (S/P/Bld) [Vol rate/Area] mL/min/{1.73_m2} Normal >60 [facility] Comment on above: Result Comment: Calc ulations of estimated GFR are performed using the 2020 CKD-EPI Study Refit equation without the race variable for the IDMS-Traceable creatinine methods.https://jasn.asnjournals.org/content/early/ N.4294363693 Performed By: #### 2 4321-2 ####GARRY Schmid ([id number])[facility] ([facility])[address]207 [place] [address] Glucose [Mass/Vol] 136 mg/dL High 74-99 [facility] Comment on above: Performed By: #### 2 4321-2 ####GARRY Schmid ([id number])[facility] ([facility])[address]796 [place] [address] Potassium [Moles/Vol] 4.1 mmol/L Normal 3.5-5.3 [facility] Comment on above: Performed By: #### 2 4321-2 ####GARRY Schmid ([id number])[facility] ([facility])[address]20 [place] [address] Sodium [Moles/Vol] 136 mmol/L Normal 136-145 [facility] Comment on above: Performed By: #### 2 4321-2 ####GARRY Schmid (42562)[facility] ([facility])[address]756 [place] [address] Urea nitrogen [Mass/Vol] 8 mg/dL Normal 6-23 [facility] Comment on above: Performed By: #### 2 432-2 ####GARRY Schmid ([id number])[facility] ([facility])[address]426 [place] [address] Blood type and Indirect anti body screen panel (Bld)on 10-11-2023 ABO group Nom (Bld) A Normal [facility] Comment on above: Performed By: #### 3 4532-2 ####GARRY Schmid ([id number])[facility] ([facility])[address] [place] [address] Blood group antibody screen Ql Negative [facility] Comment on above: Performed By: #### 3 4532-2 ####GARRY Scmhid ([id number])[facility] ([facility])[address] [facility] [place] [address] D Ag Ql (Bld) Positive [facility] Comment on above: Performed By: #### 3 4532-2 ####GARRY Schmid ([id number])[facility] ([facility])[address] [place] [address] CBC W Auto Differential pane l (Bld)on 10-11-2023 Basophils (Bld) [#/Vol] 0.01 x10*3/uL Normal 0.00-0.10 [facility] Comment on above: Performed By: #### 5 7021-8 ####GARRY Schmid ([id number])[facility] ([facility])[address] [place] [address] Basophils/100 WBC (Bld) 0.1 % Normal 0.0-2.0 [facility] Comment on above: Performed By: #### 5 7021-8 ####GARRY Schmid ([id number])[facility] ([facility])[address] [place] [address] Eosinophils (Bld) [#/Vol] 0.00 x10*3/uL Normal 0.00-0.70 [facility] Comment on above: Performed By: #### 5 7021-8 ####GARRY Schmid (65437)[facility] ([facility])[address] [place] [address] Eosinophils/100 WBC (Bld) 0.0 % Normal 0.0-6.0 [facility] Comment on above: Performed By: #### 5 7021-8 ####GARRY Schmid ([id number])[facility] ([facility])[address] [place] [address] Erythrocyte distribution width (RBC) [Ratio] 12.2 % Normal 11.5-14.5 [facility] Comment on above: Performed By: #### 5 7021-8 ####GARRY Schmid (58973)[facility] ([facility])[address] [place] [address] Hematocrit (Bld) [Volume fraction] 21.2 % Low 36.0-46.0 [facility] Comment on above: Performed By: #### 5 7021-8 ####GARRY Schmid (56895)[facility] ([facility])[address]99 [place] [address] Hemoglobin (Bld) [Mass/Vol] 7.2 g/dL Low 12.0-16.0 [facility] Comment on above: Performed By: #### 5 7021-8 ####GARRY Schmid (87783)[facility] ([facility])[address] [place] [address] Immature granulocytes (Bld) [#/Vol] 0.04 x10*3/uL Normal 0.00-0.70 [facility] Comment on above: Performed By: #### 5 7021-8 ####GARRY Schmid ([id number])[facility] ([facility])[address]46 [place] [address] Immature granulocytes/100 WBC (Bld) 0.4 % Normal 0.0-0.9 [facility] Comment on above: Result Comment: Jing ture Granulocyte Count (IG) includes promyelocytes, myelocytes and metamyelocytes but does not include bands. Percent differential counts (%) should be interpreted in the context of the absolute cell counts (cells/UL). Performed By: #### 5 7021-8 ####GARRY Schmid ([id number])[facility] ([facility])[address] [place] [address] Lymphocytes (Bld) [#/Vol] 0.81 x10*3/uL Low 1.20-4.80 [facility] Comment on above: Performed By: #### 5 7021-8 ####GARRY Schmid (74900)[facility] ([facility])[address]16 [place] [address] Lymphocytes/100 WBC (Bld) 7.9 % Normal 13.0-44.0 [facility] Comment on above: Performed By: #### 5 7021-8 ####GARRY Schmid (85833)[facility] ([facility])[address]27 [place] [address] MCH (RBC) [Entitic mass] 29.8 pg Normal 26.0-34.0 [facility] Comment on above: Performed By: #### 5 7021-8 ####GARRY Schmid ([id number])[facility] ([facility])[address]39 [place] [address] MCHC (RBC) [Mass/Vol] 34.0 g/dL Normal 32.0-36.0 [facility] Comment on above: Performed By: #### 5 7021-8 ####GARRY Schmid (35338)[facility] ([facility])[address]993 [place] [address] MCV (RBC) [Entitic vol] 88 fL Normal 80-100 [facility] Comment on above: Performed By: #### 5 7021-8 ####GARRY Schmid (72156)[facility] ([facility])[address]41 [place] [address] Monocytes (Bld) [#/Vol] 0.58 x10*3/uL Normal 0.10-1.00 [facility] Comment on above: Performed By: #### 5 7021-8 ####GARRY Schmid (99887)[facility] ([facility])[address]106 [place] [address] Monocytes/100 WBC (Bld) 5.7 % Normal 2.0-10.0 [facility] Comment on above: Performed By: #### 5 7021-8 ####GARRY Schmid (75551)[facility] ([facility])[address]303 [place] [address] Neutrophils (Bld) [#/Vol] 8.81 x10*3/uL High 1.20-7.70 [facility] Comment on above: Result Comment: Perc ent differential counts (%) should be interpreted in the context of the absolute cell counts (cells/uL). Performed By: #### 5 7021-8 ####GARRY Schmid ([id number])[facility] ([facility])[address]133 [place] [address] Neutrophils/100 WBC (Bld) 85.9 % Normal 40.0-80.0 [facility] Comment on above: Performed By: #### 5 7021-8 ####GARRY Schmid (67711)[facility] ([facility])[address]161 [place] [address] Nucleated RBC/100 WBC (Bld) [Ratio] 0.0 /100 WBCs Normal 0.0-0.0 [facility] Comment on above: Performed By: #### 5 7021-8 ####GARRY Schmid ([id number])[facility] ([facility])[address]15 [place] [address] Platelets (Bld) [#/Vol] 194 x10*3/uL Normal 150-450 [facility] Comment on above: Performed By: #### 5 7021-8 ####GARRY Schmid ([id number])[facility] ([facility])[address]79 [place] [address] RBC (Bld) [#/Vol] 2.42 x10*6/uL Low 4.00-5.20 [facility] Comment on above: Performed By: #### 5 7021-8 ####GARRY Schmid (19860)[facility] ([facility])[address]706 [place] [address] WBC (Bld) [#/Vol] 10.3 x10*3/uL Normal 4.4-11.3 [facility] Comment on above: Performed By: #### 5 7021-8 ####GARRY Schmid (47546)[facility] ([facility])[address]388 [place] [address] Gas and Carbon monoxide and Electrolytes panel (BldA)on 10-11-2023 Anion gap 4 (BldA) [Moles/Vol] 9 mmo/L Low 10-25 [facility] Comment on above: Performed By: #### 9 3685-6 ####GARRY Schmid ([id number])[facility] ([facility])[address]805 [place] [address] APPARATUS CANNULA Normal [facility] Comment on above: Performed By: #### 9 3685-6 ####GARRY Schmid ([id number])[facility] ([facility])[address]841 [place] [address] Arterial patency Wrist artery --pre arterial puncture Negative Normal [facility] Comment on above: Performed By: #### 9 3685-6 ####GARRY Schmid ([id number])[facility] ([facility])[address]591 [place] [address] Base excess Calc (Bld) [Moles/Vol] -5.0000 mmol/L Low -2.0-3.0 [facility] Comment on above: Performed By: #### 9 3685-6 ####GARRY Schmid (98309)[facility] ([facility])[address]24 [place] [address] Calcium.ionized (BldA) [Moles/Vol] 1.03 mmol/L Low 1.10-1.33 [facility] Comment on above: Performed By: #### 9 3685-6 ####GARRY Schmid (49948)[facility] ([facility])[address] [place] [address] Chloride (BldA) [Moles/Vol] 107 mmol/L Normal 98-107 [facility] Comment on above: Performed By: #### 9 3685-6 ####GARRY Schmid (84145)[facility] ([facility])[address]99 [place] [address] CO2 (Bld) [Partial pressure] 43 mm Hg High 38-42 [facility] Comment on above: Performed By: #### 9 3685-6 ####GARRY Schmid (90051)[facility] ([facility])34462 [place] [address] Glucose [Mass/Vol] 140 mg/dL High 74-99 [facility] Comment on above: Performed By: #### 9 3685-6 ####GARRY Schmid ([id number])[facility] ([facility])44684 [place] [address] HCO3 (Bld) [Moles/Vol] 21.2 mmol/L Low 22.0-26.0 [facility] Comment on above: Performed By: #### 9 3685-6 ####GARRY Schmid (64692)[facility] ([facility])[address] [place] [address] Hematocrit Est (Bld) [Volume fraction] 32.0 % Low 36.0-46.0 [facility] Comment on above: Performed By: #### 9 3685-6 ####GARRY Schmid (81436)[facility] ([facility])[address] [place] [address] Hemoglobin (Bld) [Mass/Vol] 10.8 g/dL Low 12.0-16.0 [facility] Comment on above: Performed By: #### 9 3685-6 ####GARRY Schmid ([id number])[facility] ([facility])[address] [place] [address] Inhaled oxygen concentration 21 % Normal [facility] Comment on above: Performed By: #### 9 1845-6 ####GARRY Schmid (71825)[facility] ([facility])[address] [place] [address] Lactate (BldA) [Moles/Vol] 1.8 mmol/L Normal 0.4-2.0 [facility] Comment on above: Performed By: #### 9 3685-6 ####GARRY Schmid ([id number])[facility] ([facility])[address] [place] [address]25[address] Oxygen (Bld) [Partial pressure] 145 mm Hg High 85-95 [facility] Comment on above: Performed By: #### 9 3685-6 ####GARRY Schmid ([id number])[facility] ([facility])[address] [place] [address] Oxyhemoglobin (BldA) [Mass fraction] 97.0 % Normal 94.0-98.0 [facility] Comment on above: Performed By: #### 9 7255-6 ####GARRY Schmid ([id number])[facility] ([facility])[address]20 [place] [address] pH (Bld) 7.30 [pH] Low 7.38-7.42 [facility] Comment on above: Performed By: #### 9 3685-6 ####GARRY Schmid ([id number])[facility] ([facility])26099 [place] [address] Potassium (BldA) [Moles/Vol] 3.9 mmol/L Normal 3.5-5.3 [facility] Comment on above: Performed By: #### 9 3685-6 ####GARRY Schmid (63514)[facility] ([facility])[address] [place] [address] Sodium (BldA) [Moles/Vol] 133 mmol/L Low 136-145 [facility] Comment on above: Performed By: #### 9 3685-6 ####GARRY Schmid ([id number])[facility] ([facility])[address] [place] [address] Specimen drawn from Nom Arterial Line Normal [facility] Comment on above: Performed By: #### 9 3315-6 ####GARRY Schmid ([id number])[facility] ([facility])[address] [place] [address] Anion gap 4 (BldA) [Moles/Vol] 10 mmo/L Normal 10-25 [facility] Comment on above: Performed By: #### 9 7325-6 ####GARRY Schmid ([id number])[facility] ([facility])[address] [place] [address] Base excess Calc (Bld) [Moles/Vol] -3.3000 mmol/L Low -2.0-3.0 [facility] Comment on above: Performed By: #### 9 3685-6 ####GARRY Schmid (44721)[facility] ([facility])[address] [place] [address] Calcium.ionized (BldA) [Moles/Vol] 1.06 mmol/L Low 1.10-1.33 [facility] Comment on above: Performed By: #### 9 3685-6 ####GARRY Schmid ([id number])[facility] ([facility])[address] [place] [address] Chloride (BldA) [Moles/Vol] 106 mmol/L Normal 98-107 [facility] Comment on above: Performed By: #### 9 3685-6 ####GARRY Schmid (34993)[facility] ([facility])[address] [place] [address] CO2 (Bld) [Partial pressure] 35 mm Hg Low 38-42 [facility] Comment on above: Performed By: #### 9 3685-6 ####GARRY Schmid ([id number])[facility] ([facility])[address] [place] [address] Glucose [Mass/Vol] 109 mg/dL High 74-99 [facility] Comment on above: Performed By: #### 9 3685-6 ####GARRY Schmid (50110)[facility] ([facility])[address] [place] [address]5596 HCO3 (Bld) [Moles/Vol] 21.2 mmol/L Low 22.0-26.0 [facility] Comment on above: Performed By: #### 9 3685-6 ####GARRY Schmid ([id number])[facility] ([facility])[address] [place] [address] Hematocrit Est (Bld) [Volume fraction] 26.0 % Low 36.0-46.0 [facility] Comment on above: Performed By: #### 9 3685-6 ####GARRY Schmid (35654)[facility] ([facility])[address] [place] [address] Hemoglobin (Bld) [Mass/Vol] 8.8 g/dL Low 12.0-16.0 [facility] Comment on above: Performed By: #### 9 3685-6 ####GARRY Schmid (36056)[facility] ([facility])[address]67 [place] [address] Inhaled oxygen concentration 50 % Normal [facility] Comment on above: Performed By: #### 9 3685-6 ####GARRY Schmid (00564)[facility] ([facility])[address]202 [place] [address] Lactate (BldA) [Moles/Vol] 2.2 mmol/L High 0.4-2.0 [facility] Comment on above: Performed By: #### 9 3685-6 ####GARRY Schmid (81951)[facility] ([facility])[address]643 [place] [address] Oxygen (Bld) [Partial pressure] 195 mm Hg High 85-95 [facility] Comment on above: Performed By: #### 9 3685-6 ####GARRY Schmid (67950)[facility] ([facility])47563 [place] [address] Oxyhemoglobin (BldA) [Mass fraction] 97.3 % Normal 94.0-98.0 [facility] Comment on above: Performed By: #### 9 3685-6 ####GARRY Schmid ([id number])[facility] ([facility])[address]83 [place] [address] pH (Bld) 7.39 [pH] Normal 7.38-7.42 [facility] Comment on above: Performed By: #### 9 3685-6 ####GARRY Schmid (79860)[facility] ([facility])20865 [place] [address] Potassium (BldA) [Moles/Vol] 3.4 mmol/L Low 3.5-5.3 [facility] Comment on above: Performed By: #### 9 3685-6 ####GARRY Schmid ([id number])[facility] ([facility])13586 [place] [address] Sodium (BldA) [Moles/Vol] 134 mmol/L Low 136-145 [facility] Comment on above: Performed By: #### 9 3685-6 ####GARRY Schmid (95509)[facility] ([facility])[address] [place] [address] Gas panel (BldA)on 4 Base excess Calc (Bld) [Moles/Vol] -1.3000 mmol/L Normal -2.0-3.0 [facility] Comment on above: Performed By: #### 2 4336-0 ####GARRY Schmid (69050)[facility] ([facility])[address] [place] [address] CO2 (Bld) [Partial pressure] 40 mm Hg Normal 38-42 [facility] Comment on above: Performed By: #### 2 4336-0 ####GARRY Schmid ([id number])[facility] ([facility])[id number] [place] [address] HCO3 (Bld) [Moles/Vol] 23.7 mmol/L Normal 22.0-26.0 [facility] Comment on above: Performed By: #### 2 4336-0 ####GARRY Schmid ([id number])[facility] ([facility])[id number] [place] [address] Inhaled oxygen concentration 50 % Normal [facility] Comment on above: Performed By: #### 2 4336-0 ####GARRY Schmid ([id number])[facility] ([facility])[address] [place] [address] Oxygen (Bld) [Partial pressure] 215 mm Hg High 85-95 [facility] Comment on above: Performed By: #### 2 4336-0 ####GARRY Schmid ([id number])[facility] ([facility])[id number] [place] [address]295 Oxyhemoglobin (BldA) [Mass fraction] 97.2 % Normal 94.0-98.0 [facility] Comment on above: Performed By: #### 2 4336-0 ####GARRY Schmid ([id number])[facility] ([facility])[address] [place] [address] pH (Bld) 7.38 [pH] Normal 7.38-7.42 [facility] Comment on above: Performed By: #### 2 4336-0 ####GARYR Schmid ([id number])[facility] ([facility])[address] [place] [address] Glucose Test strip manual (B ld) [Mass/Vol]on 10-11-2023 Glucose [Mass/Vol] 128 mg/dL High [address] [place] [address] Comment on above: Performed By: #### 2 341-6 ####GARRY Schmid ([id number])[facility] ([facility])[address] [place] [address] Glucose [Mass/Vol] 137 mg/dL High [address] [place] [address] Comment on above: Result Comment: RN/M D NOTIFIED Performed By: #### 2 341-6 ####GARRY Schmid ([id number])[facility] ([facility])[address] [place] [address] Glucose [Mass/Vol] 139 mg/dL High [address] [place] [address] Comment on above: Performed By: #### 2 341-6 ####GARRY Schmid ([id number])[facility] ([facility])[address]257 [place] [address] Glucose [Mass/Vol] 113 mg/dL High [address] [place] [address] Comment on above: Performed By: #### 2 341-6 ####GARRY Schmid ([id number])[facility] ([facility])[address] [place] [address] Glucose [Mass/Vol] 111 mg/dL High [address] [place] [address] Comment on above: Performed By: #### 2 341-6 ####GARRY Schmid ([id number])[facility] ([facility])[address] [place] [address] Glucose [Mass/Vol] 109 mg/dL High -[address] [place] [address] Comment on above: Performed By: #### 2 341-6 ####GARRY Schmid ([id number])[facility] ([facility])[address]17 [place] [address] Glucose [Mass/Vol] 104 mg/dL High [address] [place] [address] Comment on above: Performed By: #### 2 341-6 ####GARRY Schmid ([id number])[facility] ([facility])[address]35 [place] [address] Glucose [Mass/Vol] 135 mg/dL High [address] [place] [address] Comment on above: Performed By: #### 2 341-6 ####GARRY Schmid ([id number])[facility] ([facility])[address]992 [place] [address] Glucose [Mass/Vol] 207 mg/dL High [address] [place] [address] Comment on above: Performed By: #### 2 341-6 ####GARRY Schmid ([id number])[facility] ([facility])[address]22 [place] [address] Glucose [Mass/Vol] 251 mg/dL High [address] [place] [address] Comment on above: Performed By: #### 2 341-6 ####GARRY Schmid ([id number])[facility] ([facility])[address]100 [place] [address] Glucose [Mass/Vol] 118 mg/dL High [address] [place] [address] Comment on above: Performed By: #### 2 341-6 ####GARRY Schmid ([id number])[facility] ([facility])[address]44 [place] [address] Hepatic function 2000 panelo n 10-11-2023 Albumin BCP dye [Mass/Vol] 2.6 g/dL Low 3.4-5.0 [facility] Comment on above: Performed By: #### 2 4325-3 ####GARRY Schmid ([id number])[facility] ([facility])[address] [place] [address] ALP [Catalytic activity/Vol] 47 U/L Normal 33-110 [facility] Comment on above: Performed By: #### 2 4325-3 ####GARRY Schmid ([id number])[facility] ([facility])[address] [facility] [address] ALT With P-5'-P [Catalytic activity/Vol] 28 U/L Normal 7-45 [facility] Comment on above: Result Comment: Gianna ents treated with Sulfasalazine may generate falsely decreased results for ALT. Performed By: #### 2 4325-3 ####GARRY Schmid ([id number])[facility] ([facility])[address] [place] [address] AST With P-5'-P [Catalytic activity/Vol] 84 U/L High 9-39 [facility] Comment on above: Performed By: #### 2 4325-3 ####GARRY Schmid ([id number])[facility] ([facility])[address] [place] [address] Bilirubin [Mass/Vol] 1.0 mg/dL Normal 0.0-1.2 [facility] Comment on above: Performed By: #### 2 4325-3 ####GARRY Schmid ([id number])[facility] ([facility])[address]47 [place] [address] Bilirubin.direct [Mass/Vol] 0.4 mg/dL High 0.0-0.3 [facility] Comment on above: Performed By: #### 2 5-3 ####GARRY Schmid ([id number])[facility] ([facility])[address] [place] [address] Protein [Mass/Vol] 4.1 g/dL Low 6.4-8.2 [facility] Comment on above: Performed By: #### 2 5-3 ####GARRY Schmid ([id number])[facility] ([facility])[address] [place] [address] Magnesiumon 10-11-2023 Magnesium [Mass/Vol] 2.03 mg/dL Normal 1.60-2.40 [facility] Comment on above: Performed By: #### 1 9123-9 ####GARRY Schmid ([id number])[facility] ([facility])[address] [place] [address] Phosphateon 10-11-2023 Phosphate [Mass/Vol] 4.4 mg/dL Normal 2.5-4.9 [facility] Comment on above: Result Comment: The performance characteristics of phosphorus testing in heparinized plasma have been validated by the individual laboratory site where testing is performed. Testing on heparinized plasma is not approved by the FDA; however, such approval is not necessary. 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]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) [K86.0, F10.929] Performed By: #### V ERAB ####GARRY Schmid ([id number])[facility] ([facility] [place] [address] D Ag Ql (Bld) Positive [facility] Comment on above: Order Comment: Pre-o p diagnosis: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 She can be reached at [phone] if you have any questions. Erin Oleary RN 10/09/2023 4:18 PM Signed Patient phones requesting refills as follows: Last ordered 09/19/23, last pall med visit 09/25/23 Future appt 11/08/23 Requested Prescriptions Pending Prescriptions Disp Refills HYDROmorphone (EXALGO) 8 mg ER tablet 60 tablet 0 Sig: Take 1 tablet by mouth two times a day for 30 days. Please review and advise. KISHA Snyder Laurie, RN 10/09/2023 4:18 PM Signed Addended by: ERIN OLEARY on: 10/09/2023 04:18 PM Modules accepted: Orders Ramos Parekh MD 10/09/2023 4:57 PM Signed She's not due for a refill until 10/17; is she out? In particular, she's going to be admitted to for surgery this Saturday, so as long as she has enough hydromorphone to get her to Saturday morning, we don't need to fill this now; we can write subsequent pain management scripts once she is released from the hospital. Ramos Parekh MD 10/09/2023 4:57 PM Signed Addended by: RAMOS PAREKH on: 10/09/2023 04:57 PM Modules accepted: Erin Baez RN 10/10/2023 8:25 AM Signed Patient notified of Dr. Parekh response. She is not out of pain medication. She was just trying to plan ahead for her hospital discharge. Asking if Dr. Parekh spoke with Dr. Tray Burk yet? Did not know who would be ordering her pain medication after discharge. Please review and advise. KISHA Snyder Laurie, RN 10/10/2023 8:40 AM Signed Collaborated care with Dr. Parekh. Dr. Burk and I did connect; they will manage in the hospital, I will take over after discharge, though if she spends some time in rehab, that would happen after discharge from rehab. She or her physicians can reach out once she is getting close to getting discharged home. Patient notified of above response from Dr. Parekh and is agreeable. Erin Oleary RNCC Manager Of Selection And Assessment Allergies As of Date: 10/09/2023 Noted Allergy Reaction BACTRIM (SULFAMETHOXAZOLE) 05/03/2014 2 - Rash MORPHINE 09/05/2014 14 - Other: See Comments Comments: Visual hallucinations Date Reviewed: 06/14/2022 Reviewed by: Cathy Carter, KISHA - Fully Assessed Reason for Visit: Patient Question [3677] Visit Diagnoses:Palliative care by specialist [Z51.5] Chronic calcific pancreatitis (HCC) [K86.1] Chronic abdominal pain [R10.9, G89.29] Prescriptions as of 10/10/2023 - oxyCODONE (ROXICODONE) 15 mg immediate release tablet Take 1 tablet by mouth every 4 hours as needed for pain for up to 30 days. - LORazepam (ATIVAN) 0.5 mg Take 0.5 mg by mouth two times a day. - cariprazine (VRAYLAR) 1.5 mg capsule Take 1.5 mg by mouth once daily. - atomoxetine (STRATTERA) 60 mg capsule Take 60 mg by mouth once daily. - acyclovir (ZOVIRAX) 400 mg tablet Take 400 mg by mouth. - VRAYLAR 1.5 mg capsule Take 1 capsule by mouth every afternoon. - cloNIDine HCl (CATAPRES) 0.1 mg tablet Take 0.1 mg by mouth daily at bedtime. - AUVELITY 45-105 mg tablet Take 1 tablet by mouth every afternoon. - insulin lispro (HUMALOG KWIKPEN) 100 unit/mL Inject subcutaneously. - HUMALOG KWIKPEN INSULIN 100 unit/mL 1:30 ICR 3 TIMES A DAY BEFORE MEALS. CORRCTIVE SCALE 1:50 BEFORE MEALS - loperamide HCl (IMODIUM) 2 mg tab Take by mouth. - LORazepam (ATIVAN) 0.5 mg Take 1 tablet by mouth every 12 hours. - Mirtazapine (REMERON) 7.5 mg tablet Take 7.5 mg by mouth daily at bedtime. - HYDROmorphone (EXALGO) 8 mg ER tablet Take 1 tablet by mouth two times a day for 30 days. - promethazine (PHENERGAN) 25 mg tablet Take 1 tablet by mouth every 6 hours as needed. - fjlcsm-hokecooj-oqcxxqu (CREON) 36,000-114,000- 180,000 unit delayed release capsule Take 2 capsules by mouth three times daily before meals. - adalimumab (HUMIRA) 40 mg/0.8 mL injection Inject 0.8 mL subcutaneously every 2 weeks. - busPIRone (BUSPAR) 10 mg tablet Take 10 mg by mouth twice daily. - traZODone (DESYREL) 100 mg tablet Take 100 mg by mouth daily at bedtime. - cyanocobalamin, vitamin B-12, 3,000 mcg cap Take 1 capsule by mouth once every month. - cholecalciferol (VITAMIN D3) 1,000 unit tab tablet Take 1,000 Units by mouth once daily. - DULoxetine (CYMBALTA) 60 mg capsule Take 60 mg by mouth once daily. - gabapentin (NEURONTIN) 800 mg tablet Take 800 mg by mouth three times daily. - BAQSIMI 3 mg/actuation nasal spray Use 1 [place] in the nose as needed. - insulin glargine (LANTUS SOLOSTAR, BASAGLAR KWIKPEN) 100 unit/mL (3 mL) Inject 20 Units subcutaneously q 24 HR. - pantoprazole DR (PROTONIX) (more content not included)... [facility] [facility] Telephone ([facility]) -------- JULIETH SPENCER ([id number]) 1985 F Date Time Provider Department 10/03/23 RAMOS PAREKH [facility] During your visit today, we recorded the following information about you: Mary Patient Lead Sql DeveloperTorito 10/03/2023 2:13 PM Signed Patient calling in stating [facility] has not received patients prescription for pain medication, please advise. E- [id number] [place] [address] - [address] [facility] [phone] [id number] Patient Ph.[phone] Erin Oleary RN 10/03/2023 2:25 PM Addendum Please see message below and advise. Copied from last [facility] visit note. Given that I am her prior opiate prescriber, and given that no provider assumed long-term care of my clinic patients at , will continue to prescribe her hydromorphone ER 8 mg twice daily and oxycodone 15 mg every 4 hours PRN for the time being Thank you, RYAN Snyder, [facility] Manager Of Selection And Assessment Erin Oleary RN 10/03/2023 2:26 PM Signed Hydromorphone not due to renew until end of month. Oxycodone last ordered 08/30/23. Please review and advise. KISHA Snyder Laurie, RN 10/03/2023 3:44 PM Signed Please file Oxycodone order, if agreeable. RYAN Snyder Manager Of Selection And Assessment Ramos Parekh MD 10/03/2023 5:22 PM Signed Script for oxycodone sent to pharmacy. Allergies As of Date: 10/03/2023 Noted Allergy Reaction BACTRIM (SULFAMETHOXAZOLE) 05/03/2014 2 - Rash MORPHINE 09/05/2014 14 - Other: See Comments Comments: Visual hallucinations Date Reviewed: 06/14/2022 Reviewed by: Cathy Carter RN - Fully Assessed Reason for Visit: Patient Question [1477] Visit Diagnoses:Palliative care by specialist [Z51.5] Chronic calcific pancreatitis (HCC) [K86.1] Chronic abdominal pain [R10.9, G89.29] Order(s):oxyCODONE (ROXICODONE) 15 mg immediate release tabletTake 1 tablet by mouth every 4 hours as needed for pain for up to 30 days.Disp: 180 tabletRfl: 0 Prescriptions as of 10/04/2023 - oxyCODONE (ROXICODONE) 15 mg immediate release tablet Take 1 tablet by mouth every 4 hours as needed for pain for up to 30 days. - LORazepam (ATIVAN) 0.5 mg Take 0.5 mg by mouth two times a day. - cariprazine (VRAYLAR) 1.5 mg capsule Take 1.5 mg by mouth once daily. - atomoxetine (STRATTERA) 60 mg capsule Take 60 mg by mouth once daily. - acyclovir (ZOVIRAX) 400 mg tablet Take 400 mg by mouth. - VRAYLAR 1.5 mg capsule Take 1 capsule by mouth every afternoon. - cloNIDine HCl (CATAPRES) 0.1 mg tablet Take 0.1 mg by mouth daily at bedtime. - AUVELITY 45-105 mg tablet Take 1 tablet by mouth every afternoon. - insulin lispro (HUMALOG KWIKPEN) 100 unit/mL Inject subcutaneously. - HUMALOG KWIKPEN INSULIN 100 unit/mL 1:30 ICR 3 TIMES A DAY BEFORE MEALS. CORRCTIVE SCALE 1:50 BEFORE MEALS - loperamide HCl (IMODIUM) 2 mg tab Take by mouth. - LORazepam (ATIVAN) 0.5 mg Take 1 tablet by mouth every 12 hours. - Mirtazapine (REMERON) 7.5 mg tablet Take 7.5 mg by mouth daily at bedtime. - HYDROmorphone (EXALGO) 8 mg ER tablet Take 1 tablet by mouth two times a day for 30 days. - promethazine (PHENERGAN) 25 mg tablet Take 1 tablet by mouth every 6 hours as needed. - eplvgs-lfngcyeq-lfzoyhf (CREON) 36,000-114,000- 180,000 unit delayed release capsule Take 2 capsules by mouth three times daily before meals. - adalimumab (HUMIRA) 40 mg/0.8 mL injection Inject 0.8 mL subcutaneously every 2 weeks. - busPIRone (BUSPAR) 10 mg tablet Take 10 mg by mouth twice daily. - traZODone (DESYREL) 100 mg tablet Take 100 mg by mouth daily at bedtime. - cyanocobalamin, vitamin B-12, 3,000 mcg cap Take 1 capsule by mouth once every month. - cholecalciferol (VITAMIN D3) 1,000 unit tab tablet Take 1,000 Units by mouth once daily. - DULoxetine (CYMBALTA) 60 mg capsule Take 60 mg by mouth once daily. - gabapentin (NEURONTIN) 800 mg tablet Take 800 mg by mouth three times daily. - BAQSIMI 3 mg/actuation nasal spray Use 1 [place] in the nose as needed. - insulin glargine (LANTUS SOLOSTAR, BASAGLAR KWIKPEN) 100 unit/mL (3 mL) Inject 20 Units subcutaneously q 24 HR. - pantoprazole DR (PROTONIX) 40 mg tablet Take 40 mg by mouth once daily. - sucralfate (CARAFATE) 1 gram tablet Take 1 g by mouth four times daily. - hyoscyamine SR (LEVBID) 0.375 mg 12 hr tablet Take 1 tablet by mouth q 12 HR. - acetaminophen (TYLENOL) 325 mg tablet Take 2 tablets by mouth every 6 hours as needed (Temp greater than 38.5C). 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 Normal [facility] John 10-01-[address] [facility] Telephone [facility] -------- JULIETH SPENCER ([id number]) 1985 F Date Time Provider Department 10/01/23 RAMOS PAREKH [facility] During your visit today, we recorded the following information about you: Mary Patient Lead Sql DeveloperTorito 10/01/2023 3:53 PM Addendum Called patient to schedule 6-8 week virtual follow up appt from in office appt (09/25) however, there was no answer. Left message for patient to call office. Okay to use clinic to schedule VV if needed per Dr.Warner Dominguez Patient Lead Sql DeveloperTorito 10/09/2023 12:48 PM Signed Called patient to schedule 6-8 week virtual follow up appt from in office appt (09/25) however, there was no answer. Left message for patient to call office. Okay to use clinic to schedule VV if needed per Dr.Warner Dominguez Patient Lead Sql Developer [place] 10/23/2023 9:39 AM Signed Patient called and scheduled appointment Allergies As of Date: 10/01/2023 Noted Allergy Reaction BACTRIM (SULFAMETHOXAZOLE) 05/03/2014 2 - Rash MORPHINE 09/05/2014 14 - Other: See Comments Comments: Visual hallucinations Date Reviewed: 06/14/2022 Reviewed by: Cathy Carter, RN - Fully Assessed Reason for Visit: Appointment [186] Prescriptions as of 10/23/2023 - oxyCODONE (ROXICODONE) 15 mg immediate release tablet Take 1 tablet by mouth every 4 hours as needed for pain for up to 30 days. - LORazepam (ATIVAN) 0.5 mg Take 0.5 mg by mouth two times a day. - cariprazine (VRAYLAR) 1.5 mg capsule Take 1.5 mg by mouth once daily. - atomoxetine (STRATTERA) 60 mg capsule Take 60 mg by mouth once daily. - acyclovir (ZOVIRAX) 400 mg tablet Take 400 mg by mouth. - VRAYLAR 1.5 mg capsule Take 1 capsule by mouth every afternoon. - cloNIDine HCl (CATAPRES) 0.1 mg tablet Take 0.1 mg by mouth daily at bedtime. - AUVELITY 45-105 mg tablet Take 1 tablet by mouth every afternoon. - insulin lispro (HUMALOG KWIKPEN) 100 unit/mL Inject subcutaneously. - HUMALOG KWIKPEN INSULIN 100 unit/mL 1:30 ICR 3 TIMES A DAY BEFORE MEALS. CORRCTIVE SCALE 1:50 BEFORE MEALS - loperamide HCl (IMODIUM) 2 mg tab Take by mouth. - LORazepam (ATIVAN) 0.5 mg Take 1 tablet by mouth every 12 hours. - Mirtazapine (REMERON) 7.5 mg tablet Take 7.5 mg by mouth daily at bedtime. - HYDROmorphone (EXALGO) 8 mg ER tablet Take 1 tablet by mouth two times a day for 30 days. - promethazine (PHENERGAN) 25 mg tablet Take 1 tablet by mouth every 6 hours as needed. - mgsccm-htjqyyyr-vkirtnb (CREON) 36,000-114,000- 180,000 unit delayed release capsule Take 2 capsules by mouth three times daily before meals. - adalimumab (HUMIRA) 40 mg/0.8 mL injection Inject 0.8 mL subcutaneously every 2 weeks. - busPIRone (BUSPAR) 10 mg tablet Take 10 mg by mouth twice daily. - traZODone (DESYREL) 100 mg tablet Take 100 mg by mouth daily at bedtime. - cyanocobalamin, vitamin B-12, 3,000 mcg cap Take 1 capsule by mouth once every month. - cholecalciferol (VITAMIN D3) 1,000 unit tab tablet Take 1,000 Units by mouth once daily. - DULoxetine (CYMBALTA) 60 mg capsule Take 60 mg by mouth once daily. - gabapentin (NEURONTIN) 800 mg tablet Take 800 mg by mouth three times daily. - BAQSIMI 3 mg/actuation nasal spray Use 1 [place] in the nose as needed. - insulin glargine (LANTUS SOLOSTAR, BASAGLAR KWIKPEN) 100 unit/mL (3 mL) Inject 20 Units subcutaneously q 24 HR. - pantoprazole DR (PROTONIX) 40 mg tablet Take 40 mg by mouth once daily. - sucralfate (CARAFATE) 1 gram tablet Take 1 g by mouth four times daily. - hyoscyamine SR (LEVBID) 0.375 mg 12 hr tablet Take 1 tablet by mouth q 12 HR. - acetaminophen (TYLENOL) 325 mg tablet Take 2 tablets by mouth every 6 hours as needed (Temp greater than 38.5C). Problem List As Of Date 10/01/2023 Noted Resolved REGIONAL ENTERITIS NOS [K50.90] 03/30/2008 SUMMARY [V999.95] 09/05/2014 Crohn disease (HCC) [K50.90] 09/05/2014 Arthritis in Crohn's disease [M07.60, K50.919] 09/05/2014 Depression [F32.A] 09/05/2014 Anxiety [F41.9] 09/05/2014 Diarrhea [R19.7] 09/08/2014 S/P ERCP [Z98.890] 06/06/2022 Type 1 diabetes mellitus without complication (*06/06/2022 Chronic pancreatitis (HCC) [K86.1] 06/06/2022 GERD (gastroesophageal reflux disease) [K21.9] 06/06/2022 Nicotine use disorder, F17.2 [F17.200] 06/06/2022 Malnutrition of moderate degree (HCC) [E44.0] 06/07/2022 Chronic calcific pancreatitis (HCC) [K86.1] 06/08/2022 Acute on chronic pancreatitis (HCC) [K85.90, K8*06/14/2022 06/14/2022 Encounter Status:Closed by [facility] PATIENT DIRECTOR GROUP SALESTORITO on 10/01/23 [address] [facility] [address] Pancreas W contrast Rodney 09-26-2023 Diffusely atrophic pancreas with punctate calcifications consistent with chronic pancreatitis. Overall no significant change from prior CT scan. MACRO: None Signed by: Ricardo Gurrola 09/26/2023 8:19 AM Dictation workstation: [id number] Ricardo Gurrola MD - 09/26/2023 Interpreted By: Ricardo Gurrola, STUDY: CT PANCREAS PRE OP EVALUATION WITH CONTRAST; 09/25/2023 3:55 pm INDICATION: Signs/Symptoms:pancreati c protocol for evaluation of pancreatitis for surgery treatment; COMPARISON: 03/08/2022 ACCESSION NUMBER(S): [id number] ORDERING CLINICIAN: TRAY BURK TECHNIQUE: Contiguous axial images of the abdomen/pelvis were performed with IV contrast. 75 ml of Omnipaque [address] examinations are performed with 1 or more of the following dose reduction techniques: Automated exposure control, adjustment of mA and/or kv according to patient's size, or use of iterative reconstruction techniques. FINDINGS: LOWER CHEST: Minimal bibasilar atelectasis. The heart is normal in size without pericardial effusion. No pleural effusion is present. Visualized distal esophagus appears normal. ABDOMEN: LIVER: The liver is normal in size without evidence of focal liver lesions. Focal fatty infiltration adjacent to the falciform ligament is again noted. BILE DUCTS: Prominent intrahepatic bile ducts status post cholecystectomy. The common bile duct is mildly dilated measuring 8 mm in diameter similar to prior. GALLBLADDER: The gallbladder is surgically absent. PANCREAS: Diffusely atrophic pancreas with punctate calcifications similar to prior. The pancreatic duct is normal in size measuring up to 2 mm in diameter at the tail. No focal fluid collections. SPLEEN: The spleen is normal in size without focal lesions. ADRENAL GLANDS: Bilateral adrenal glands appear normal. KIDNEYS AND URETERS: The kidneys are normal in size and enhance symmetrically. No hydronephrosis. No urolithiasis. PELVIS: BLADDER: The urinary bladder appears distended without abnormal wall thickening. REPRODUCTIVE ORGANS: No masses seen. BOWEL: The stomach is unremarkable. The small and large bowel are normal in caliber and demonstrate no wall thickening. The appendix appears normal. VESSELS: There is no aneurysmal dilatation of the abdominal aorta. The IVC appears normal. PERITONEUM/RETROPERITONE UM/LYMPH NODES: No free pelvic fluid. No free air. No abdominopelvic lymphadenopathy is present. BONES AND ABDOMINAL WALL: No suspicious osseous lesions are identified. The abdominal wall soft tissues appear normal. IMPRESSION: Diffusely atrophic pancreas with punctate calcifications consistent with chronic pancreatitis. Overall no significant change from prior CT scan. MACRO: None Signed by: Ricardo Gurrola 09/26/2023 8:19 AM Dictation workstation: [id number] [facility] Work Phone: CT Pancreas W contrast IVOrd ered By: Ricardo Gurrola on 09-26-2023 [facility] Work Phone: Blood type and Indirect anti body screen panel (Bld)on 09-25-2023 ABO group Nom (Bld) A Normal [facility] Comment on above: Order Comment: Pleas e send to [facility] for processing. Patient scheduled for surgery Performed By: #### 3 4532-2 ####YOLIE Vieira ()[facility] (TalkTo)[address] [place] [address] US Blood group antibody screen Ql Negative [facility] Comment on above: Order Comment: Pleas e send to [facility] for processing. Patient scheduled for surgery Performed By: #### 3 4532-2 ####YOLIE Vieira ()[facility] (Hands-On Mobile)[address] [place] [address] US D Ag Ql (Bld) Positive [facility] Comment on above: Order Comment: Pleas e send to [facility] for processing. Patient scheduled for surgery Performed By: #### 3 4532-2 ####YOLIE Vieira ()[facility] (Hands-[employer] Mobile)[address] [place] [address] US CBC panel Auto (Bld)on 09-25 Erythrocyte distribution width (RBC) [Ratio] 13.1 % Normal 11.5-14.5 [facility] Comment on above: Performed By: #### 5 8410-2 ####YOLIE Vieira ()[facility] ()[address] [address] Hematocrit (Bld) [Volume fraction] 38.4 % Normal 36.0-46.0 [facility] Comment on above: Performed By: #### 5 8410-2 ####YOLIE Vieira ()[facility] ()[address] [place] [address] Hemoglobin (Bld) [Mass/Vol] 12.2 g/dL Normal 12.0-16.0 [facility] Comment on above: Performed By: #### 5 8410-2 ####YOLIE Vieira ()[facility] ()[address] [place] [address] MCH (RBC) [Entitic mass] 30.7 pg Normal 26.0-34.0 [facility] Comment on above: Performed By: #### 5 8410-2 ####YOLIE Vieira ([id number])[facility] ()[address] [place] [address] MCHC (RBC) [Mass/Vol] 31.8 g/dL Low 32.0-36.0 [facility] Comment on above: Performed By: #### 5 8410-2 ####YOLIE Vieira ([id number])[facility] ()[address] [place] [address] MCV (RBC) [Entitic vol] 97 fL Normal 80-100 [facility] Comment on above: Performed By: #### 5 8410-2 ####YOLIE Vieira ([id number])[facility] ()[address] [place] [address] Nucleated RBC/100 WBC (Bld) [Ratio] 0.0 /100 WBCs Normal 0.0-0.0 [facility] Comment on above: Performed By: #### 5 8410-2 ####YOLIE Vieira ([id number])[facility] ()[address] [place] [address] Platelets (Bld) [#/Vol] 284 x10*3/uL Normal 150-450 [facility] Comment on above: Performed By: #### 5 8410-2 ####YOLIE Vieira ([id number])[facility] ()[address] [place] [address] RBC (Bld) [#/Vol] 3.98 x10*6/uL Low 4.00-5.20 [facility] Comment on above: Performed By: #### 5 8410-2 ####YOLIE Vieira ([id number])[facility] ()[address] [place] [address] WBC (Bld) [#/Vol] 9.7 x10*3/uL Normal 4.4-11.3 [facility] Comment on above: Performed By: #### 5 8410-2 ####YOLIE Vieira ([id number])[facility] ()[address] [place] [address] CNNURSEon 09-25-2023 CNNURSE Nurse Visit (PMWIL) -------- JULIETH SPENCER ([id number]) 1985 F Date Time Provider Department 09/25/[facility] During your visit today, we recorded the following information about you: Raffi Santiago RN 09/25/2023 2:14 PM Signed Palliative Medicine Care Coordination Established Patient Nurse Visit Patient identified by name and : Yes Met with patient in clinic. Discussed Reviewed medications Collaborated with Dr. parekh Nurse encouraged patient to call with any questions/concerns/sympt om related issues. Patient confirmed having contact numbers for the office and on-call. Allergies As of Date: 09/25/2023 Noted Allergy Reaction BACTRIM (SULFAMETHOXAZOLE) 05/03/2014 2 - Rash MORPHINE 09/05/2014 14 - Other: See Comments Comments: Visual hallucinations Date Reviewed: 06/14/2022 Reviewed by: Cathy Carter, KISHA - Fully Assessed Primary Visit Diagnosis:Crohn's disease with complication, unspecified gastrointestinal tract location (HCC) [K50.919] Prescriptions as of 09/25/2023 - LORazepam (ATIVAN) 0.5 mg Take 0.5 mg by mouth two times a day. - cariprazine (VRAYLAR) 1.5 mg capsule Take 1.5 mg by mouth once daily. - atomoxetine (STRATTERA) 60 mg capsule Take 60 mg by mouth once daily. - acyclovir (ZOVIRAX) 400 mg tablet Take 400 mg by mouth. - VRAYLAR 1.5 mg capsule Take 1 capsule by mouth every afternoon. - cloNIDine HCl (CATAPRES) 0.1 mg tablet Take 0.1 mg by mouth daily at bedtime. - AUVELITY 45-105 mg tablet Take 1 tablet by mouth every afternoon. - insulin lispro (HUMALOG KWIKPEN) 100 unit/mL Inject subcutaneously. - HUMALOG KWIKPEN INSULIN 100 unit/mL 1:30 ICR 3 TIMES A DAY BEFORE MEALS. CORRCTIVE SCALE 1:50 BEFORE MEALS - loperamide HCl (IMODIUM) 2 mg tab Take by mouth. - LORazepam (ATIVAN) 0.5 mg Take 1 tablet by mouth every 12 hours. - Mirtazapine (REMERON) 7.5 mg tablet Take 7.5 mg by mouth daily at bedtime. - HYDROmorphone (EXALGO) 8 mg ER tablet Take 1 tablet by mouth two times a day for 30 days. - oxyCODONE (ROXICODONE) 15 mg immediate release tablet Take 1 tablet by mouth every 4 hours as needed for pain for up to 30 days. - promethazine (PHENERGAN) 25 mg tablet Take 1 tablet by mouth every 6 hours as needed. - kvehnx-pzilqple-jmpxjzc (CREON) 36,000-114,000- 180,000 unit delayed release capsule Take 2 capsules by mouth three times daily before meals. - adalimumab (HUMIRA) 40 mg/0.8 mL injection Inject 0.8 mL subcutaneously every 2 weeks. - busPIRone (BUSPAR) 10 mg tablet Take 10 mg by mouth twice daily. - traZODone (DESYREL) 100 mg tablet Take 100 mg by mouth daily at bedtime. - cyanocobalamin, vitamin B-12, 3,000 mcg cap Take 1 capsule by mouth once every month. - cholecalciferol (VITAMIN D3) 1,000 unit tab tablet Take 1,000 Units by mouth once daily. - DULoxetine (CYMBALTA) 60 mg capsule Take 60 mg by mouth once daily. - gabapentin (NEURONTIN) 800 mg tablet Take 800 mg by mouth three times daily. - BAQSIMI 3 mg/actuation nasal spray Use 1 [place] in the nose as needed. - insulin glargine (LANTUS SOLOSTAR, BASAGLAR KWIKPEN) 100 unit/mL (3 mL) Inject 20 Units subcutaneously q 24 HR. - pantoprazole DR (PROTONIX) 40 mg tablet Take 40 mg by mouth once daily. - sucralfate (CARAFATE) 1 gram tablet Take 1 g by mouth four times daily. - hyoscyamine SR (LEVBID) 0.375 mg 12 hr tablet Take 1 tablet by mouth q 12 HR. - acetaminophen (TYLENOL) 325 mg tablet Take 2 tablets by mouth every 6 hours as needed (Temp greater than 38.5C). 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 [M07.60, K50.919] 09/05/2014 Depression [F32.A] 09/05/2014 Anxiety [F41.9] 09/05/2014 Diarrhea [R19.7] 09/08/2014 S/P ERCP [Z98.890] 06/06/2022 Type 1 diabetes mellitus without complication (*06/06/2022 Chronic pancreatitis (HCC) [K86.1] 06/06/2022 GERD (gastroesophageal reflux disease) [K21.9] 06/06/2022 Nicotine use disorder, F17.2 [F17.200] 06/06/2022 Malnutrition of moderate degree (HCC) [E44.0] 06/07/2022 Chronic calcific pancreatitis (HCC) [K86.1] 06/08/2022 Acute on chronic pancreatitis (HCC) [K85.90, K8*06/14/2022 06/14/2022 Encounter Status:Closed by RAFFI SANTIAGO on 09/25/23 [facility] CNOVon 09-25-2023 CNOV Office Visit (PMWI ) -------- JULIETH SPENCER ([id number]) 1985 F Date Time Provider Department 09/25/23 1:00 PM RAMOS PAREKH PMWILH During your visit today, we recorded the following information about you: Temperature Pulse Blood pressure Weight 97.4 degrees 84/minute 111/69 54.6 kg Raffi Santiago RN 10/01/2023 10:35 AM Signed Palliative Medicine Care Coordination Established Patient Nurse Visit Patient identified by name and : Yes Met with patient in clinic. Discussed Reviewed medications Collaborated with Dr. parekh Nurse encouraged patient to call with any questions/concerns/sympt om related issues. Patient confirmed having contact numbers for the office and on-call. 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 Palliative care is involved for assistance with pain management; she is a patient from my former practice at [facility]. Subjective Patient is now scheduled for her pancreatectomy with Dr. Tray Burk at on 10/11/2023. Her pain has been better controlled than usual, to the point that she has found herself skipping doses of long-acting hydromorphone with no ill effect noted. She states she has been told she might have a 70% reduction in her pain on a regular basis in the wake of a successful surgery. Per her report, they are not planning to preserve islet cells, as she has type I diabetes. Spoke to Dr. Tray Burk by phone on 09/26. His plan in the post-surgical period will be to discharge her on the regimen that she came in on, with an eye to a possible wean after. He asked if I would be willing to take charge of that wean, to which I agreed. Modified ESAS (Fowler Symptom Assessment Scale) Information Provided By: Patient Pain: Mild Nausea: Mild Loss of Appetite: Mild Constipation: None Shortness of Breath: None Drowsiness: None Tiredness: None Depression: None Anxiety: None How you feel overall: Good Objective ECOG PERFORMANCE STATUS: 0- Fully active, able to carry on all pre-disease performance w/o restriction. PHYSICAL EXAMINATION: Vital signs: BP 111/69 Pulse 84 Temp 36.3 ?C (97.4 ?F) Wt 54.6 kg (120 lb 5 oz) LMP 01/11/2019 SpO2 98% BMI 21.31 kg/m? Last 1 Encounter Temp Readings: Date: Temp: Temp Src: 09/25/2023 36.3 ?C (97.4 ?F) Last 1 Encounter Resp Readings: Date: Resp: 06/06/2022 18 Last 1 Encounter Pulse Readings: Date: Pulse: 09/25/2023 84 Last 1 Encounter BP Readings: Date: BP: 09/25/2023 111/69 General appearance: alert, in no acute distress Head: atraumatic, symmetric Skin: Intact, no rash, no notable lesions Eyes: Anicteric sclera. Extraocular movements are intact. Oropharynx: MMM Respiratory: breathing non-labored and no grunting/flaring/retract ions Chest: equal chest rise with normal respiratory effort Abdomen: Non-distended Extremities: No clubbing or cyanosis. No edema. Musculoskeletal: No joint swelling or erythema. Neuro: alert and oriented x3 DATA: Diagnostic tests reviewed for today's visit: Most recent labs and imaging results. CrCl cannot be calculated (Patient's most recent lab result is older than the maximum 180 days allowed.). Opioid Management: Yes Indication for Opioid Prescribing: Chronic, Non-cancer pain ORT-OUD Score: 0 A score of 3 or higher may indicate a higher risk for future development of aberrant drug related behavior or opioid use disorder. Informed consent for chronic opiate therapy obtained and written pain agreement: Initial plan had been to defer to pain management, given that I have opted to continue to dispense her opiate therapy through her pancreatectomy and in the immediate post-op period, patient and I have discussed the terms of the opiate agreement verbally, to which she has agreed Naloxone offered?: No, will discuss at follow up visit Course of treatment, patient's response and adherence to the prescribed treatment plan reviewed, including non-pharmacological and non-opioid treatment modalities? Yes Have any complications or exacerbations of the underlying condition causing the pain been reviewed? Yes How much does pain impede patient?s ability to engage in work or other purposeful activities, interfere with your activities of daily living, physical activity, or quality of your family life and social activities? Significantly Aberrancies in pain panel? No Any aberrant drug related behaviors since last visit? No Rationale for continuing opioid treatment: Improved comfort and function based on an ongoing f (more content not included)... Normal [facility] CT Pancreas W contrast Rodney 09-25-2023 Radiology Study observation (narrative) [facility] Work Phone: Comprehensive metabolic 2000 panelon 09-25-2023 Albumin [Mass/Vol] 3.9 g/dL Normal 3.5-5.0 [facility] Comment on above: Performed By: #### 2 4323-8 ####YOLIE Vieira ([id number])[facility] ()[address] [place] [address] ALP (Bld) [Catalytic activity/Vol] 98 U/L Normal 35-125 [facility] Comment on above: Performed By: #### 2 4323-8 ####YOLIE Vieira ([id number])[facility] ()[address] [place] [address] ALT [Catalytic activity/Vol] 16 U/L Normal 5-40 [facility] Comment on above: Performed By: #### 2 4323-8 ####YOLIE Vieira ([id number])[facility] ()[address] [place] [address] Anion gap [Moles/Vol] 10 mmol/L Normal <=19 [facility] Comment on above: Performed By: #### 2 4323-8 ####YOLIE Vieira ([id number])[facility] ()[address] [place] [address] AST [Catalytic activity/Vol] 33 U/L Normal 5-40 [facility] Comment on above: Performed By: #### 2 4323-8 ####YOLIE Vieira ([id number])[facility] ()[address] [place] [address] Bilirubin [Mass/Vol] mg/dL Normal 0.1-1.2 [facility] Comment on above: Performed By: #### 2 4323-8 ####YOLIE Vieira ([id number])[facility] ()[address] [place] [address] Calcium [Mass/Vol] 8.6 mg/dL Normal 8.5-10.4 [facility] Comment on above: Performed By: #### 2 4323-8 ####YOLIE Vieira ([id number])[facility] ()[address] [place] [address] Chloride [Moles/Vol] 98 mmol/L Normal 97-107 [facility] Comment on above: Performed By: #### 2 4323-8 ####YOLIE Vieira ([id number])[facility] ()[address] [place] [address] CO2 [Moles/Vol] 25 mmol/L Normal 24-31 [facility] Comment on above: Performed By: #### 2 4323-8 ####YOLIE Vieira ([id number])[facility] ()[address] [place] [address] Creatinine [Mass/Vol] 0.70 mg/dL Normal 0.40-1.60 [facility] Comment on above: Performed By: #### 2 4323-8 ####YOLIE Vieira ([id number])[facility] ()[address] [place] [address] GFR/1.73 sq M.predicted MDRD (S/P/Bld) [Vol rate/Area] mL/min/{1.73_m2} Normal >60 [facility] Comment on above: Result Comment: Calc ulations of estimated GFR are performed using the 2020 CKD-EPI Study Refit equation without the race variable for the IDMS-Traceable creatinine methods.https://jasn.asnjournals.org/content/early/ N.0100922101 Performed By: #### 2 4323-8 ####YOLIE Vieira ([id number])[facility] ()[address] [place] [address] Glucose [Mass/Vol] 109 mg/dL High 65-99 [facility] Comment on above: Performed By: #### 2 4323-8 ####YOLIE Vieira ([id number])[facility] ()[address] [place] [address] Potassium [Moles/Vol] 4.6 mmol/L Normal 3.4-5.1 [facility] Comment on above: Performed By: #### 2 4323-8 ####YOLIE Vieira ([id number])[facility] ()[address] [place] [address] Protein [Mass/Vol] 6.5 g/dL Normal 5.9-7.9 [facility] Comment on above: Performed By: #### 2 4323-8 ####YOLIE Vieira ([id number])[facility] ()[address] [place] [address] Sodium [Moles/Vol] 133 mmol/L Normal 133-145 [facility] Comment on above: Performed By: #### 2 4323-8 ####YOLIE Vieira ([id number])[facility] ()[address] [place] [address] Urea nitrogen [Mass/Vol] 16 mg/dL Normal 8-25 [facility] Comment on above: Performed By: #### 2 4323-8 ####YOLIE Vieria ([id number])[facility] ()[address] [place] [address] HbA1c (Bld) [Mass fraction]o n 09-25-2023 Average glucose Estimated from glycated hemoglobin (Bld) [Mass/Vol] 111 mg/dL Normal Not Established [facility] Comment on above: Order Comment: Diagn osis of Ycpmpoyf-ElooopZax-Hmuymjfr: < or = 5.6%Increased risk for developing diabetes: 5.7-6.4%Diagnostic of diabetes: > or = 6.5%Monitoring of DiabetesAge (y)....................... Therapeutic Goal (%)Adults: >18.........................<7.0Pediatrics: 13-18...................<7.5Pediatrics: 7-12....................<8.0Pediatrics: 0-6..................... 7.5-8.5American Diabetes Association. Diabetes Care 33(S1)Sep 2009 Performed By: #### 4 548-4 ####YOLIE Vieira ([id number])[facility] ()[address] [place] [address] Hemoglobin A1c/Hemoglobin.to viral 09-25-2023 HbA1c (Bld) [Mass fraction] 5.5 % Normal See below [facility] Comment on above: Order Comment: Diagn osis of Gexcjbob-GhfchgMeg-Dbadzieb: < or = 5.6%Increased risk for developing diabetes: 5.7-6.4%Diagnostic of diabetes: > or = 6.5%Monitoring of DiabetesAge (y)....................... Therapeutic Goal (%)Adults: >18.........................<7.0Pediatrics: 13-18...................<7.5Pediatrics: 7-12....................<8.0Pediatrics: 0-6..................... 7.5-8.5American Diabetes Association. Diabetes Care 33(S1)Sep 2009 Performed By: #### 4 548-4 ####YOLIE Vieira ([id number])[facility] ()[address] [facility] [place] [facility] [place] [address] PT and aPTT panel Coag (PPP) on 09-25-2023 aPTT Coag (PPP) [Time] 26.2 s Normal 22.0-32.5 [facility] Comment on above: Order Comment: INR T herapeutic Range: 2.0-3.5 Performed By: #### 3 4529-8 ####YOLIE Vieira ([id number])[facility] ()[address] [place] [address] INR Coag (PPP) [Relative time] 1.0 Normal 0.9-1.2 [facility] Comment on above: Order Comment: INR T herapeutic Range: 2.0-3.5 Performed By: #### 3 4529-8 ####YOLIE Vieira ([id number])[facility] ()[address] [place] [address] PT Coag (PPP) [Time] 10.7 s Normal 9.3-12.7 [facility] Comment on above: Order Comment: INR T herapeutic Range: 2.0-3.5 Performed By: #### 3 4529-8 ####YOLIE Vieira ([id number])[facility] ()[address] [place] [address] ECG 12-LEADon 09-20-2023 ECG 12-LEAD Ventricular Rate 71 Atrial Rate 71 P-R Interval 126 QRS Duration 92 Q-T Interval 424 QTC Calculation(Bazett) 460 P [place] 50 R [place] -44 T [place] 27 QRS Count 12 Q Onset 222 P Onset 159 P Offset 200 T Offset 434 QTC Fredericia 448 Diagnosis Sinus bradycardia Left axis deviation Borderline Prolonged QT When compared with ECG of 05-NOV-2019 21:47, No significant change since Confirmed by Getachew Carreon ([id number]) on 09/23/2023 4:54:02 PM Normal [facility] Staphylococcus aureus.methic illin resistant isolateon 09-20-2023 MRSA isol Org specific cx Ql (Nose) Normal [facility] Comment on above: Performed By: #### 5 2969-3 ####GARRY Schmid ([id number])[facility] ([facility])[address] [facility] [address] Urinalysis complete W Reflex Culture panel (U)on 09-20-2023 Appearance (U) Clear Normal Clear [facility] Comment on above: Performed By: #### 5 8077-9 ####GARRY Schmid ([id number])[facility] ([facility])[address] [facility] [address] Bilirubin (U) [Mass/Vol] Negative Normal NEGATIVE [facility] Comment on above: Performed By: #### 5 8077-9 ####GARRY Schmid ([id number])[facility] ([facility])[address] [facility] [address] Color (U) Yellow Normal Straw, Yellow [facility] Comment on above: Performed By: #### 5 8077-9 ####GARRY Schmid ([id number])[facility] ([facility])[address] [facility] [address] Glucose Auto test strip (U) [Mass/Vol] Negative Normal NEGATIVE [facility] Comment on above: Performed By: #### 5 8077-9 ####GARRY PEREZ L ([id number])[facility] ([facility])[address] [facility] [address] Ketones (U) [Mass/Vol] Negative Normal NEGATIVE [facility] Comment on above: Performed By: #### 5 8077-9 ####GARRY PEREZ L ([id number])[facility] ([facility])[address] [facility] [address] Leukocyte esterase Auto test strip Ql (U) Negative Normal NEGATIVE [facility] Comment on above: Performed By: #### 5 8077-9 ####GARRY PEREZ L ([id number])[facility] ([facility])[address] [facility] [place] [address] Nitrite Auto test strip Ql (U) Negative Normal NEGATIVE [facility] Comment on above: Performed By: #### 5 8077-9 ####GARRY Schmid ([id number])[facility] ([facility])[address] [place] [address] pH (U) 7.0 [pH] Normal 5.0, 5.5, 6.0, 6.5, 7.0, 7.5, 8.0 [facility] Comment on above: Performed By: #### 5 8077-9 ####GARRY Schmid ([id number])[facility] ([facility])[address] [place] [address] Protein (U) [Mass/Vol] Negative Normal NEGATIVE [facility] Comment on above: Performed By: #### 5 8077-9 ####GARRY Schmid ([id number])[facility] ([facility])[address] [place] [address] RBC (U) [#/Vol] Negative Normal NEGATIVE [facility] Comment on above: Performed By: #### 5 8077-9 ####GARRY Schmid ([id number])[facility] ([facility])[address] [place] [address] Specific gravity (U) [Rel density] 1.021 Normal 1.005-1.035 [facility] Comment on above: Performed By: #### 5 8077-9 ####GARRY Schmid ([id number])[facility] ([facility])[address] [place] [address] Urobilinogen (U) [Mass/Vol] mg/dL Normal <2.0 [facility] Comment on above: Performed By: #### 5 8077-9 ####GARRY Schmid ([id number])[facility] ([facility])[address] [place] [address] John 08-20-2023 BIA Telephone ([facility]) -------- JULIETH SPENCER ([id number]) 1985 F Date Time Provider Department 08/20/23 [facility] During your visit today, we recorded the following information about you: Neva Bryant 08/20/2023 9:26 AM Signed Julieth is calling stating that her hydromorphone was called into the wrong pharmacy. It needs to be called into [facility]. If you have an questions please call Julieth back at [phone].. Thank you Ramos Parekh MD 08/20/2023 10:28 AM Signed Re-sent script to patient's preferred pharmacy. Erin Oleary RN 08/21/2023 10:12 AM Signed The following approved medication requests have been transmitted electronically. Requested Prescriptions Signed Prescriptions Disp Refills HYDROmorphone (EXALGO) 8 mg ER tablet 60 tablet 0 Sig: Take 1 tablet by mouth two times a day for 30 days. Authorizing Provider: RAMOS PAREKH RN Allergies As of Date: 08/20/2023 Noted Allergy Reaction BACTRIM (SULFAMETHOXAZOLE) 05/03/2014 2 - Rash MORPHINE 09/05/2014 14 - Other: See Comments Comments: Visual hallucinations Date Reviewed: 06/14/2022 Reviewed by: Cathy Carter, KISHA - Fully Assessed Reason for Visit: Medication Problem [65] Visit Diagnoses:Palliative care by specialist [Z51.5] Chronic calcific pancreatitis (HCC) [K86.1] Chronic abdominal pain [R10.9, G89.29] Order(s):HYDROmorphone (EXALGO) 8 mg ER tabletTake 1 tablet by mouth two times a day for 30 days.Disp: 60 tabletRfl: 0 Prescriptions as of 08/21/2023 - HYDROmorphone (EXALGO) 8 mg ER tablet Take 1 tablet by mouth two times a day for 30 days. - oxyCODONE (ROXICODONE) 15 mg immediate release tablet Take 1 tablet by mouth every 4 hours as needed for pain for up to 30 days. - promethazine (PHENERGAN) 25 mg tablet Take 1 tablet by mouth every 6 hours as needed. - ysbitp-wnvkoifr-intksaa (CREON) 36,000-114,000- 180,000 unit delayed release capsule Take 2 capsules by mouth three times daily before meals. - adalimumab (HUMIRA) 40 mg/0.8 mL injection Inject 0.8 mL subcutaneously every 2 weeks. - busPIRone (BUSPAR) 10 mg tablet Take 10 mg by mouth twice daily. - traZODone (DESYREL) 100 mg tablet Take 100 mg by mouth daily at bedtime. - cyanocobalamin, vitamin B-12, 3,000 mcg cap Take 1 capsule by mouth once every month. - cholecalciferol (VITAMIN D3) 1,000 unit tab tablet Take 1,000 Units by mouth once daily. - DULoxetine (CYMBALTA) 60 mg capsule Take 60 mg by mouth once daily. - gabapentin (NEURONTIN) 800 mg tablet Take 800 mg by mouth three times daily. - BAQSIMI 3 mg/actuation nasal spray Use 1 [place] in the nose as needed. - insulin glargine (LANTUS SOLOSTAR, BASAGLAR KWIKPEN) 100 unit/mL (3 mL) Inject 20 Units subcutaneously q 24 HR. - pantoprazole DR (PROTONIX) 40 mg tablet Take 40 mg by mouth once daily. - sucralfate (CARAFATE) 1 gram tablet Take 1 g by mouth four times daily. - hyoscyamine SR (LEVBID) 0.375 mg 12 hr tablet Take 1 tablet by mouth q 12 HR. - acetaminophen (TYLENOL) 325 mg tablet Take 2 tablets by mouth every 6 hours as needed (Temp greater than 38.5C). 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] 09/05/2014 Depression [F32.A] 09/05/2014 Anxiety [F41.9] 09/05/2014 Diarrhea [R19.7] 09/08/2014 S/P ERCP [Z98.890] 06/06/2022 Type 1 diabetes mellitus without complication (*06/06/2022 Chronic pancreatitis (HCC) [K86.1] 06/06/2022 GERD (gastroesophageal reflux disease) [K21.9] 06/06/2022 Nicotine use disorder, F17.2 [F17.200] 06/06/2022 Malnutrition of moderate degree (HCC) [E44.0] 06/07/2022 Chronic calcific pancreatitis (HCC) [K86.1] 06/08/2022 Acute on chronic pancreatitis (HCC) [K85.90, K8*06/14/2022 06/14/2022 Prescriptions ordered this encounter Disp Refills Start End HYDROMORPHONE ER 8 MG TABLET,EXTENDE* 60 t* 0 08/20/2023 09/19/2023 Route: ORAL Sig: Take 1 tablet by mouth two times a day for 30 days. Medications Discontinued During This Encounter Prescriptions - HYDROmorphone (EXALGO) 8 mg ER tablet (Discontinued) Take 1 tablet by mouth two times a day for 30 days. Encounter Status:Closed by RAMOS PAREKH on 08/20/23 Normal [facility] -------- JULIETH SPENCER ([id number]) 1985 F Date Time Provider Department 08/20/23 RAMOS PAREKH [facility] During your visit today, we recorded the following information about you: Angelic Prakash, [facility] 08/20/2023 8:40 AM Signed [facility] received prescription(s) for hydromorphone from Dr. Ramos Parekh's office. Unfortunately, we do not carry or service non-specialty medications. If you would like the medication to be mailed to the patient by a [facility], please consider sending the Rx to [facility] (phone [phone]). Otherwise, please send the Rx to a [facility] outpatient pharmacy or patient's preferred pharmacy. Thanks, Catalina Prakash, PharmD Clinical Pharmacist, [employer] [facility] ; Pool: [facility] Pool #: [id number] Allergies As of Date: 08/20/2023 Noted Allergy Reaction BACTRIM (SULFAMETHOXAZOLE) 05/03/2014 2 - Rash MORPHINE 09/05/2014 14 - Other: See Comments Comments: Visual hallucinations Date Reviewed: 06/14/2022 Reviewed by: Cathy Carter, RN - Fully Assessed Prescriptions as of 08/20/2023 - HYDROmorphone (EXALGO) 8 mg ER tablet Take 1 tablet by mouth two times a day for 30 days. - oxyCODONE (ROXICODONE) 15 mg immediate release tablet Take 1 tablet by mouth every 4 hours as needed for pain for up to 30 days. - promethazine (PHENERGAN) 25 mg tablet Take 1 tablet by mouth every 6 hours as needed. - snoijj-tcqlnncf-wpaidpl (CREON) 36,000-114,000- 180,000 unit delayed release capsule Take 2 capsules by mouth three times daily before meals. - adalimumab (HUMIRA) 40 mg/0.8 mL injection Inject 0.8 mL subcutaneously every 2 weeks. - busPIRone (BUSPAR) 10 mg tablet Take 10 mg by mouth twice daily. - traZODone (DESYREL) 100 mg tablet Take 100 mg by mouth daily at bedtime. - cyanocobalamin, vitamin B-12, 3,000 mcg cap Take 1 capsule by mouth once every month. - cholecalciferol (VITAMIN D3) 1,000 unit tab tablet Take 1,000 Units by mouth once daily. - DULoxetine (CYMBALTA) 60 mg capsule Take 60 mg by mouth once daily. - gabapentin (NEURONTIN) 800 mg tablet Take 800 mg by mouth three times daily. - BAQSIMI 3 mg/actuation nasal spray Use 1 [place] in the nose as needed. - insulin glargine (LANTUS SOLOSTAR, BASAGLAR KWIKPEN) 100 unit/mL (3 mL) Inject 20 Units subcutaneously q 24 HR. - pantoprazole DR (PROTONIX) 40 mg tablet Take 40 mg by mouth once daily. - sucralfate (CARAFATE) 1 gram tablet Take 1 g by mouth four times daily. - hyoscyamine SR (LEVBID) 0.375 mg 12 hr tablet Take 1 tablet by mouth q 12 HR. - acetaminophen (TYLENOL) 325 mg tablet Take 2 tablets by mouth every 6 hours as needed (Temp greater than 38.5C). 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] 09/05/2014 Depression [F32.A] 09/05/2014 Anxiety [F41.9] 09/05/2014 Diarrhea [R19.7] 09/08/2014 S/P ERCP [Z98.890] 06/06/2022 Type 1 diabetes mellitus without complication (*06/06/2022 Chronic pancreatitis (HCC) [K86.1] 06/06/2022 GERD (gastroesophageal reflux disease) [K21.9] 06/06/2022 Nicotine use disorder, F17.2 [F17.200] 06/06/2022 Malnutrition of moderate degree (HCC) [E44.0] 06/07/2022 Chronic calcific pancreatitis (HCC) [K86.1] 06/08/2022 Acute on chronic pancreatitis (HCC) [K85.90, K8*06/14/2022 06/14/2022 Encounter Status:Closed by ANGELIC PRAKASH on 08/20/23 [facility] 08-19-[address] [facility] Telephone ([facility]) -------- JULIETH SPENCER ([id number]) 1985 F Date Time Provider Department 08/19/23 RAMOS PAREKH [facility] During your visit today, we recorded the following information about you: Mary Patient Lead Sql Developer [place] 08/19/2023 8:19 AM Signed Patient called in, confirmed vv will let us know if she wishes to change to in person. Allergies As of Date: 08/19/2023 Noted Allergy Reaction BACTRIM (SULFAMETHOXAZOLE) 05/03/2014 2 - Rash MORPHINE 09/05/2014 14 - Other: See Comments Comments: Visual hallucinations Date Reviewed: 06/14/2022 Reviewed by: Cathy Carter RN - Fully Assessed Reason for Visit: Appointment [186] Prescriptions as of 08/19/2023 - oxyCODONE (ROXICODONE) 15 mg immediate release tablet Take 1 tablet by mouth every 4 hours as needed for pain for up to 30 days. - HYDROmorphone (EXALGO) 8 mg ER tablet Take 1 tablet by mouth two times a day for 30 days. - promethazine (PHENERGAN) 25 mg tablet Take 1 tablet by mouth every 6 hours as needed. - wrgoww-xusfxnax-potfwze (CREON) 36,000-114,000- 180,000 unit delayed release capsule Take 2 capsules by mouth three times daily before meals. - adalimumab (HUMIRA) 40 mg/0.8 mL injection Inject 0.8 mL subcutaneously every 2 weeks. - busPIRone (BUSPAR) 10 mg tablet Take 10 mg by mouth twice daily. - traZODone (DESYREL) 100 mg tablet Take 100 mg by mouth daily at bedtime. - cyanocobalamin, vitamin B-12, 3,000 mcg cap Take 1 capsule by mouth once every month. - cholecalciferol (VITAMIN D3) 1,000 unit tab tablet Take 1,000 Units by mouth once daily. - DULoxetine (CYMBALTA) 60 mg capsule Take 60 mg by mouth once daily. - gabapentin (NEURONTIN) 800 mg tablet Take 800 mg by mouth three times daily. - BAQSIMI 3 mg/actuation nasal spray Use 1 [place] in the nose as needed. - insulin glargine (LANTUS SOLOSTAR, BASAGLAR KWIKPEN) 100 unit/mL (3 mL) Inject 20 Units subcutaneously q 24 HR. - pantoprazole DR (PROTONIX) 40 mg tablet Take 40 mg by mouth once daily. - sucralfate (CARAFATE) 1 gram tablet Take 1 g by mouth four times daily. - hyoscyamine SR (LEVBID) 0.375 mg 12 hr tablet Take 1 tablet by mouth q 12 HR. - acetaminophen (TYLENOL) 325 mg tablet Take 2 tablets by mouth every 6 hours as needed (Temp greater than 38.5C). 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] 09/05/2014 Depression [F32.A] 09/05/2014 Anxiety [F41.9] 09/05/2014 Diarrhea [R19.7] 09/08/2014 S/P ERCP [Z98.890] 06/06/2022 Type 1 diabetes mellitus without complication (*06/06/2022 Chronic pancreatitis (HCC) [K86.1] 06/06/2022 GERD (gastroesophageal reflux disease) [K21.9] 06/06/2022 Nicotine use disorder, F17.2 [F17.200] 06/06/2022 Malnutrition of moderate degree (HCC) [E44.0] 06/07/2022 Chronic calcific pancreatitis (HCC) [K86.1] 06/08/2022 Acute on chronic pancreatitis (HCC) [K85.90, K8*06/14/2022 06/14/2022 Encounter Status:Closed by MARY PATIENT DIRECTOR GROUP SALESTORITO on 08/19/23 [facility] 07-24-2023 [facility] Telephone ([facility]) -------- JULIETH SPENCER ([id number]) 1985 F Date Time Provider Department 07/24/23 MATT BOND During your visit today, we recorded the following information about you: Kendra Hatch MA 07/26/2023 1:43 PM Addendum Patient was advised of the following: This is a follow up phone call regarding your appointment with Dr Bond, which you are scheduled to see at [facility] on 07/25/2023. 1) Have you been evaluated and treated by a Pain Management physician currently or in the past? If so, we will need a release of care from your previous physician. 2) Have you had any outside x-rays or MRI's related to the pain you are being seen for? If so, please bring copies to your appointment with you. Also please recall that our physicians will not take over medications. You will need to make sure you have enough pain medications to last until your follow up appointment with your current prescribing physician. Dr. Bond is primarily an interventional pain management provider, which means, they treat with physical therapy, injections and non-narcotic medications. Any questions or you need to reschedule please call us at [phone]. Left VM with new patient policy advised to call office with any questions or concerns Kendra Hatch MA Allergies As of Date: 07/24/2023 Noted Allergy Reaction BACTRIM (SULFAMETHOXAZOLE) 05/03/2014 2 - Rash MORPHINE 09/05/2014 14 - Other: See Comments Comments: Visual hallucinations Date Reviewed: 06/14/2022 Reviewed by: Cathy Carter RN - Fully Assessed Reason for Visit: Appointment [186] Cmt: Pain management Prescriptions as of 07/26/2023 - oxyCODONE (ROXICODONE) 15 mg immediate release tablet Take 1 tablet by mouth every 4 hours as needed for pain for up to 30 days. - HYDROmorphone (EXALGO) 8 mg ER tablet Take 1 tablet by mouth two times a day for 30 days. - promethazine (PHENERGAN) 25 mg tablet Take 1 tablet by mouth every 6 hours as needed. - mxqitr-fvtkuzhv-wwdobeb (CREON) 36,000-114,000- 180,000 unit delayed release capsule Take 2 capsules by mouth three times daily before meals. - adalimumab (HUMIRA) 40 mg/0.8 mL injection Inject 0.8 mL subcutaneously every 2 weeks. - busPIRone (BUSPAR) 10 mg tablet Take 10 mg by mouth twice daily. - traZODone (DESYREL) 100 mg tablet Take 100 mg by mouth daily at bedtime. - cyanocobalamin, vitamin B-12, 3,000 mcg cap Take 1 capsule by mouth once every month. - cholecalciferol (VITAMIN D3) 1,000 unit tab tablet Take 1,000 Units by mouth once daily. - DULoxetine (CYMBALTA) 60 mg capsule Take 60 mg by mouth once daily. - gabapentin (NEURONTIN) 800 mg tablet Take 800 mg by mouth three times daily. - BAQSIMI 3 mg/actuation nasal spray Use 1 [place] in the nose as needed. - insulin glargine (LANTUS SOLOSTAR, BASAGLAR KWIKPEN) 100 unit/mL (3 mL) Inject 20 Units subcutaneously q 24 HR. - pantoprazole DR (PROTONIX) 40 mg tablet Take 40 mg by mouth once daily. - sucralfate (CARAFATE) 1 gram tablet Take 1 g by mouth four times daily. - hyoscyamine SR (LEVBID) 0.375 mg 12 hr tablet Take 1 tablet by mouth q 12 HR. - acetaminophen (TYLENOL) 325 mg tablet Take 2 tablets by mouth every 6 hours as needed (Temp greater than 38.5C). 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] 09/05/2014 Depression [F32.A] 09/05/2014 Anxiety [F41.9] 09/05/2014 Diarrhea [R19.7] 09/08/2014 S/P ERCP [Z98.890] 06/06/2022 Type 1 diabetes mellitus without complication (*06/06/2022 Chronic pancreatitis (HCC) [K86.1] 06/06/2022 GERD (gastroesophageal reflux disease) [K21.9] 06/06/2022 Nicotine use disorder, F17.2 [F17.200] 06/06/2022 Malnutrition of moderate degree (HCC) [E44.0] 06/07/2022 Chronic calcific pancreatitis (HCC) [K86.1] 06/08/2022 Acute on chronic pancreatitis (HCC) [K85.90, K8*06/14/2022 06/14/2022 Encounter Status:Closed by KENDRA HATCH on 07/26/23 Normal [facility] metabolic 2000 panelon 07-22-2023 Albumin BCP dye [Mass/Vol] 4.1 g/dL Normal 3.4-5.0 [facility] Comment on above: Performed By: #### 2 4323-8 ####YOLIE Mcclellan ([id number])[facility] ([facility])[address] [place] [address] ALP [Catalytic activity/Vol] 91 U/L Normal 33-110 [facility] Comment on above: Performed By: #### 2 4323-8 ####YOLIE Mcclellan ([id number])[facility] ([facility])[address] [place] [address] ALT With P-5'-P [Catalytic activity/Vol] 17 U/L Normal 7-45 [facility] Comment on above: Result Comment: Gianna ents treated with Sulfasalazine may generate falsely decreased results for ALT. Performed By: #### 2 4323-8 ####YOLIE Mcclellan ([id number])[facility] ([facility])[address] [place] [address] Anion gap [Moles/Vol] 13 mmol/L Normal 10-20 [facility] Comment on above: Performed By: #### 2 4323-8 ####YOLIE Mcclellan ([id number])[facility] ([facility])[address] [place] [address] AST With P-5'-P [Catalytic activity/Vol] 20 U/L Normal 9-39 [facility] Comment on above: Performed By: #### 2 4323-8 ####YOLIE Mcclellan ([id number])[facility] ([facility])[address] [place] [address] Bilirubin [Mass/Vol] 0.3 mg/dL Normal 0.0-1.2 [facility] Comment on above: Performed By: #### 2 4323-8 ####YOLIE Mcclellan ([id number])[facility] ([facility])[address] [place] [address] Calcium [Mass/Vol] 9.1 mg/dL Normal 8.6-10.3 [facility] Comment on above: Performed By: #### 2 4323-8 ####YOLIE Mcclellan ([id number])[facility] ([facility])[address] [place] [address] Chloride [Moles/Vol] 99 mmol/L Normal 98-107 [facility] Comment on above: Performed By: #### 2 4323-8 ####YOLIE Mcclellan ([id number])[facility] ([facility])[address] [place] [address] CO2 [Moles/Vol] 31 mmol/L Normal 21-32 [facility] Comment on above: Performed By: #### 2 4323-8 ####YOLIE Mcclellan ([id number])[facility] ([facility])[address] [place] [address] Creatinine [Mass/Vol] 0.80 mg/dL Normal 0.50-1.05 [facility] Comment on above: Performed By: #### 2 4323-8 ####YOLIE Mcclellan ([id number])[facility] ([facility])[address] [place] [address] GFR/1.73 sq M.predicted MDRD (S/P/Bld) [Vol rate/Area] mL/min/{1.73_m2} Normal >60 [facility] Comment on above: Result Comment: Calc ulations of estimated GFR are performed using the 2020 CKD-EPI Study Refit equation without the race variable for the IDMS-Traceable creatinine methods.https://jasn.asnjournals.org/content/early/ N.4890559550 Performed By: #### 2 4323-8 ####YOLIE Mcclellan ([id number])[facility] ([facility])[address] [place] [address] Glucose [Mass/Vol] 138 mg/dL High 74-99 [facility] Comment on above: Performed By: #### 2 4323-8 ####YOLIE Mcclellan ([id number])[facility] ([facility])[address] [place] [address] Potassium [Moles/Vol] 4.8 mmol/L Normal 3.5-5.3 [facility] Comment on above: Performed By: #### 2 4323-8 ####YOLIE Mcclellan ([id number])[facility] ([facility])[address] [place] [address] Protein [Mass/Vol] 7.3 g/dL Normal 6.4-8.2 [facility] Comment on above: Performed By: #### 2 4323-8 ####YOLIE Mcclellan ([id number])[facility] ([facility])[address] [place] [address] Sodium [Moles/Vol] 138 mmol/L Normal 136-145 [facility] Comment on above: Performed By: #### 2 4323-8 ####YOLIE Mcclellan ([id number])[facility] ([facility])[address] [place] [address] Urea nitrogen [Mass/Vol] 12 mg/dL Normal 6-23 [facility] Comment on above: Performed By: #### 2 4323-8 ####YOLIE Mcclellan ([id number])[facility] ([facility])[address] [place] [address] Prealbuminon 07-22-2023 Prealbumin [Mass/Vol] 31.6 mg/dL Normal 18.0-40.0 [facility] Comment on above: Performed By: #### 1 4338-8 ####GARRY Schmid ([id number])[facility] ([facility])[address] [place] [address] Basic Metabolic Panelon 11-0 Anion gap [Moles/Vol] 9.4 mmol/L Normal 6.0-15.0 [facility] Comment on above: Performed By: #### B MP #### [facility] [address] Calcium [Mass/Vol] 8.8 mg/dL Normal 8.6-10.3 [facility] Comment on above: Performed By: #### B MP #### [facility] [address] Chloride [Moles/Vol] 101 mmol/L Normal 98-107 [facility] Comment on above: Performed By: #### B MP #### [facility] [address] CO2 [Moles/Vol] 32.3 mmol/L High 21.0-31.0 [facility] Comment on above: Performed By: #### B MP #### [facility] [address] Creatinine [Mass/Vol] 0.54 mg/dL Low 0.60-1.20 [facility] Comment on above: Performed By: #### B MP #### [facility] [address] [place] [address] [place] Creatinine Clr Calc Pharmacy 120.29 [facility] Comment on above: Result Comment: PERF ORMED BY: [place] [address] PATHOLOGIST GROUP SOCIAL WORKER DARELL FIORE M.D. Performed By: #### B MP #### [place] [address] [place] GFR/1.73 sq M.predicted MDRD (S/P/Bld) [Vol rate/Area] mL/min/{1.73_m2} [facility] Comment on above: Performed By: #### B MP #### [address] Glucose [Mass/Vol] 178 mg/dL High 70-100 [facility] Comment on above: Result Comment: [place] om Glucose Reference Range is dependent on time and content of last meal. Glucose of more than 200 mg/dL in a nonstressed, ambulatory subject supports the diagnosis of Diabetes Mellitus. ADA recommended reference range Performed By: #### B MP #### [facility] [address] Potassium [Moles/Vol] 3.7 mmol/L Normal 3.5-5.1 [facility] Comment on above: Performed By: #### B MP #### [facility] [address] Sodium [Moles/Vol] 139 mmol/L Normal 136-145 [facility] Comment on above: Performed By: #### B MP #### [facility] [address] Urea nitrogen [Mass/Vol] 4 mg/dL Low 7-25 [facility] Comment on above: Performed By: #### B MP #### [facility] [address] Calcium [Mass/volume] in Ser um or PlasmaOrdered By: Allen Borges on 07-20-2023 Calcium [Mass/Vol] 8.8 mg/dL 8.6-10.3 [facility] Carbon dioxide, total [Moles /volume] in Serum or PlasmaOrdered By: Allen Borges on 07-20-2023 CO2 [Moles/Vol] 32.3 mmol/L 21.0-31.0 [facility] Chloride [Moles/volume] in S ty or PlasmaOrdered By: Allen SolBorges on 07-20-2023 Chloride [Moles/Vol] 101 mmol/L 98-107 [facility] Creatinine [Mass/volume] in Serum or PlasmaOrdered By: Allen Borges on 07-20-2023 Creatinine [Mass/Vol] 0.54 mg/dL 0.60-1.20 [facility] Glucose Glucometer (BldC) [M ass/Vol]Ordered By: Allen Borges on 07-20-2023 Glucose [Mass/Vol] 179 mg/dL [facility] Comment on above: Random Glucose Refer ence Range is dependent on time and content of last meal. Glucose of more than 200 mg/dL in a nonstressed, ambulatory subject supports the diagnosis of Diabetes Mellitus. Glucose Poct Glucometerson 1 09-19-2022 Commemt1 Glu2: Cleaned Meter [facility] Comment on above: Result Comment: PERF ORMED BY: [place] [address] PATHOLOGIST GROUP SOCIAL WORKER DARELL FIORE M.D. Performed By: #### G LULS #### Point of Care testing , Glucose [Mass/Vol] 179 mg/dL Normal [facility] Comment on above: Result Comment: [place] om Glucose Reference Range is dependent on time and content of last meal. Glucose of more than 200 mg/dL in a nonstressed, ambulatory subject supports the diagnosis of Diabetes Mellitus. Performed By: #### G LULS #### Point of Care testing , Commemt1 Glu2: Cleaned Meter [facility] Comment on above: Result Comment: PERF ORMED BY: [place] [address] PATHOLOGIST GROUP SOCIAL WORKER DARELL FIORE M.D. Performed By: #### B MP #### [facility] [address] [place] [address] Glucose [Mass/Vol] 139 mg/dL Normal [facility] Comment on above: Result Comment: [place] om Glucose Reference Range is dependent on time and content of last meal. Glucose of more than 200 mg/dL in a nonstressed, ambulatory subject supports the diagnosis of Diabetes Mellitus. Performed By: #### B MP #### [facility] [address] [place] [address] [place] Glucose [Mass/volume] in Ser um or PlasmaOrdered By: Allen Borges on 07-20-2023 Glucose [Mass/Vol] 178 mg/dL 70-100 [facility] Comment on above: ADA recommended refe rence rangeRandom Glucose Reference Range is dependent on time and content of last meal. Glucose of more than 200 mg/dL in a nonstressed, ambulatory subject supports the diagnosis of Diabetes Mellitus. No Panel InformationOrdered By: Allen Borges on 07-20-2023 Bedside Glucose Comment Glu2: cleaned meter [facility] Estimated GFR (CKD-EPI) > 60.0 mL/Min [facility] Creatinine Clearance (Chem 120.29 [facility] Potassium [Moles/volume] in Serum or PlasmaOrdered By: Allen Magnolia on 07-20-2023 Potassium [Moles/Vol] 3.7 mmol/L 3.5-5.1 [facility] Serum or plasma anion gap de terminationOrdered By: [facility] on 07-20-2023 Anion gap [Moles/Vol] 9.4 mmol/L 6.0-15.0 [facility] Sodium [Moles/volume] in Ser um or PlasmaOrdered By: [facility] on 07-20-2023 Sodium [Moles/Vol] 139 mmol/L 136-145 [facility] Urea nitrogen [Mass/volume] in Serum or PlasmaOrdered By: Allen Magnolia on 07-20-2023 Urea nitrogen [Mass/Vol] 4 mg/dL 7-25 [facility] Basic Metabolic Panelon 110 Anion gap [Moles/Vol] Not performed Normal 6.0-15.0 [facility] Comment on above: Order Comment: FIRST SPECIMEN HEMOLYZED Performed By: #### B MP #### [facility] [address] [place] [address] [place] Calcium [Mass/Vol] 8.7 mg/dL Normal 8.6-10.3 [facility] Comment on above: Order Comment: FIRST SPECIMEN HEMOLYZED Performed By: #### B MP #### [facility] [address] [place] [id number] [place] Chloride [Moles/Vol] 103 mmol/L Normal 98-107 [facility] Comment on above: Order Comment: FIRST SPECIMEN HEMOLYZED Performed By: #### B MP #### [facility] [address] [place] [id number] [place] CO2 [Moles/Vol] 27.8 mmol/L Normal 21.0-31.0 [facility] Comment on above: Order Comment: FIRST SPECIMEN HEMOLYZED Performed By: #### B MP #### [facility] [address] Creatinine [Mass/Vol] 0.70 mg/dL Normal 0.60-1.20 [facility] Comment on above: Order Comment: FIRST SPECIMEN HEMOLYZED Performed By: #### B MP #### [facility] [address] [place] [address] [place] Creatinine Clr Calc Pharmacy 92.79 Normal [facility] Comment on above: Order Comment: FIRST SPECIMEN HEMOLYZED Result Comment: PERF ORMED BY: [place] [address] PATHOLOGIST [employer] WORKER DARELL FIORE M.D. Performed By: #### B MP #### [place] [address] [place] GFR/1.73 sq M.predicted MDRD (S/P/Bld) [Vol rate/Area] mL/min/{1.73_m2} [facility] Comment on above: Order Comment: FIRST SPECIMEN HEMOLYZED Performed By: #### B MP #### [place] [address] [place] Glucose [Mass/Vol] 148 mg/dL High 70-100 [facility] Comment on above: Order Comment: FIRST SPECIMEN HEMOLYZED Result Comment: [place] Glucose Reference Range is dependent on time and content of last meal. Glucose of more than 200 mg/dL in a nonstressed, ambulatory subject supports the diagnosis of Diabetes Mellitus. ADA recommended reference range Performed By: #### B MP #### [place] [address] [place] Potassium Normal 3.5-5.1 [facility] Comment on above: Order Comment: FIRST SPECIMEN HEMOLYZED Result Comment: Spec imen hemolyzed, redraw requested Performed By: #### B MP #### [place] [address] [place] Sodium [Moles/Vol] 139 mmol/L Normal 136-145 [facility] Comment on above: Order Comment: FIRST SPECIMEN HEMOLYZED Performed By: #### B MP #### [facility] [address] Urea nitrogen [Mass/Vol] 4 mg/dL Low 7-25 [facility] Comment on above: Order Comment: FIRST SPECIMEN HEMOLYZED Performed By: #### B MP #### [facility] [address] Glucose Poct Glucometerson 1 09-18-2022 Glucose [Mass/Vol] 176 mg/dL Normal [facility] Comment on above: Result Comment: [place] om Glucose Reference Range is dependent on time and content of last meal. Glucose of more than 200 mg/dL in a nonstressed, ambulatory subject supports the diagnosis of Diabetes Mellitus. PERFORMED BY: [place] [address] PATHOLOGIST [employer] WORKER DARELL FIORE M.D. Performed By: #### B MP #### [address] Glucose [Mass/Vol] 175 mg/dL Normal [facility] Comment on above: Result Comment: [place] om Glucose Reference Range is dependent on time and content of last meal. Glucose of more than 200 mg/dL in a nonstressed, ambulatory subject supports the diagnosis of Diabetes Mellitus. PERFORMED BY: [place] [address] PATHOLOGIST [employer] WORKER DARELL FIORE M.D. Performed By: #### G LULS #### Point of Care testing , Commemt1 Glu2: Cleaned Meter Normal [facility] Comment on above: Result Comment: PERF ORMED BY: [place] [address] PATHOLOGIST [employer] WORKER DARELL FIORE M.D. Performed By: #### B MP #### [address] Glucose [Mass/Vol] 93 mg/dL Normal [facility] Comment on above: Result Comment: [place] om Glucose Reference Range is dependent on time and content of last meal. Glucose of more than 200 mg/dL in a nonstressed, ambulatory subject supports the diagnosis of Diabetes Mellitus. Performed By: #### B MP #### [facility] [address] Glucose [Mass/Vol] 179 mg/dL Normal [facility] Comment on above: Result Comment: [facility] Glucose Reference Range is dependent on time and content of last meal. Glucose of more than 200 mg/dL in a nonstressed, ambulatory subject supports the diagnosis of Diabetes Mellitus. PERFORMED BY: [place] [address] PATHOLOGIST [employer] WORKER DARELL FIORE M.D. Performed By: #### G LULS #### Point of Care testing , Redraw Potassiumon 3 Potassium [Moles/Vol] 3.6 mmol/L Normal 3.5-5.1 [facility] Comment on above: Order Comment: Speci men hemolyzed X2, redraw requested Result Comment: PERF ORMED BY: [place] [address] PATHOLOGIST [employer] DARELL FIORE M.D. Performed By: #### G LULS #### Point of Care testing , Basic Metabolic Panelon 11 Anion gap [Moles/Vol] 10.1 mmol/L Normal 6.0-15.0 [facility] Comment on above: Performed By: #### B MP #### [facility] [address] [place] [address] [place] Calcium [Mass/Vol] 8.2 mg/dL Low 8.6-10.3 [facility] Comment on above: Performed By: #### B MP #### [facility] [address] [place] [address] [place] Chloride [Moles/Vol] 103 mmol/L Normal 98-107 [facility] Comment on above: Performed By: #### B MP #### [facility] [address] [place] [address] [place] CO2 [Moles/Vol] 26.3 mmol/L Normal 21.0-31.0 [facility] Comment on above: Performed By: #### B MP #### [facility] [address] Creatinine [Mass/Vol] 0.58 mg/dL Low 0.60-1.20 [facility] Comment on above: Performed By: #### B MP #### [facility] [address] [place] [address] [place] Creatinine Clr Calc Pharmacy 111.99 [facility] Comment on above: Result Comment: PERF ORMED BY: [place] [address] PATHOLOGIST [employer] WORKER DARELL FIORE M.D. Performed By: #### B MP #### [place] [address] [place] GFR/1.73 sq M.predicted MDRD (S/P/Bld) [Vol rate/Area] mL/min/{1.73_m2} [facility] Comment on above: Performed By: #### B MP #### [address] Glucose [Mass/Vol] 153 mg/dL High 70-100 [facility] Comment on above: Result Comment: [place] Glucose Reference Range is dependent on time and content of last meal. Glucose of more than 200 mg/dL in a nonstressed, ambulatory subject supports the diagnosis of Diabetes Mellitus. ADA recommended reference range Performed By: #### B MP #### [place] [address] [place] Potassium [Moles/Vol] 3.4 mmol/L Low 3.5-5.1 [facility] Comment on above: Performed By: #### B MP #### [place] [address] [place] Sodium [Moles/Vol] 136 mmol/L Normal 136-145 [facility] Comment on above: Performed By: #### B MP #### [place] [address] [place] Urea nitrogen [Mass/Vol] 2 mg/dL Low 7-25 [facility] Comment on above: Performed By: #### B MP #### [facility] [address] Glucose Poct Glucometerson 1 09-17-2022 Glucose [Mass/Vol] 134 mg/dL Normal [facility] Comment on above: Result Comment: [place] om Glucose Reference Range is dependent on time and content of last meal. Glucose of more than 200 mg/dL in a nonstressed, ambulatory subject supports the diagnosis of Diabetes Mellitus. PERFORMED BY: [place] [address] PATHOLOGIST [employer] WORKER DARELL FIORE M.D. Performed By: #### G LULS #### Point of Care testing , Glucose [Mass/Vol] 125 mg/dL Normal [facility] Comment on above: Result Comment: [place] om Glucose Reference Range is dependent on time and content of last meal. Glucose of more than 200 mg/dL in a nonstressed, ambulatory subject supports the diagnosis of Diabetes Mellitus. PERFORMED BY: [place] [address] PATHOLOGIST [employer] WORKER DARELL FIORE M.D. Performed By: #### B MP #### [facility] [address] [place] [address] Commemt1 Glu2: Cleaned Meter [facility] Comment on above: Result Comment: PERF ORMED BY: [place] [address] PATHOLOGIST [employer] WORKER DARELL FIORE M.D. Performed By: #### G LULS #### Point of Care testing , Glucose [Mass/Vol] 104 mg/dL Normal [facility] Comment on above: Result Comment: [place] om Glucose Reference Range is dependent on time and content of last meal. Glucose of more than 200 mg/dL in a nonstressed, ambulatory subject supports the diagnosis of Diabetes Mellitus. Performed By: #### G LULS #### Point of Care testing , Commemt1 Glu2: Cleaned Meter [facility] Comment on above: Result Comment: PERF ORMED BY: [address] [place] [address] PATHOLOGIST [employer] WORKER DARELL FIORE M.D. Performed By: #### B MP #### [facility] [address] [place] [address] [place] Glucose [Mass/Vol] 144 mg/dL Normal [facility] Comment on above: Result Comment: [place] om Glucose Reference Range is dependent on time and content of last meal. Glucose of more than 200 mg/dL in a nonstressed, ambulatory subject supports the diagnosis of Diabetes Mellitus. Performed By: #### B MP #### [facility] [address] [place] [address] Glucose [Mass/Vol] 126 mg/dL Normal [facility] Comment on above: Result Comment: [place] om Glucose Reference Range is dependent on time and content of last meal. Glucose of more than 200 mg/dL in a nonstressed, ambulatory subject supports the diagnosis of Diabetes Mellitus. PERFORMED BY: [place] [address] PATHOLOGIST [employer] WORKER DARELL FIORE M.D. Performed By: #### G LULS #### Point of Care testing , Glucose Poct Glucometerson 1 09-16-2022 Glucose [Mass/Vol] 99 mg/dL Normal [facility] Comment on above: Result Comment: [place] om Glucose Reference Range is dependent on time and content of last meal. Glucose of more than 200 mg/dL in a nonstressed, ambulatory subject supports the diagnosis of Diabetes Mellitus. PERFORMED BY: [place] [address] PATHOLOGIST [employer] WORKER DARELL FIORE M.D. Performed By: #### G LULS #### Point of Care testing , Glucose [Mass/Vol] 106 mg/dL Normal [facility] Comment on above: Result Comment: [place] om Glucose Reference Range is dependent on time and content of last meal. Glucose of more than 200 mg/dL in a nonstressed, ambulatory subject supports the diagnosis of Diabetes Mellitus. PERFORMED BY: [place] [address] PATHOLOGIST [employer] SOC[employer] WORKER DARELL FIORE M.D. Performed By: #### G LULS #### Point of Care testing , Glucose [Mass/Vol] 127 mg/dL Normal [facility] Comment on above: Result Comment: [facility] Glucose Reference Range is dependent on time and content of last meal. Glucose of more than 200 mg/dL in a nonstressed, ambulatory subject supports the diagnosis of Diabetes Mellitus. PERFORMED BY: [place] [address] PATHOLOGIST [employer] SOC[employer] WORKER DARELL FIORE M.D. Performed By: #### G LULS #### Point of Care testing , A1C with Estimated Average Gabo torrez 07-16-2023 Glucose [Mass/Vol] 120 mg/dL Normal [facility] Comment on above: Result Comment: PERF ORMED BY: [place] [address] PATHOLOGIST [employer] WORKER DARELL FIORE M.D. Performed By: #### A 1C [facility] eA #### [address] HbA1c (Bld) [Mass fraction] 5.8 % High 4.3-5.6 [facility] Comment on above: Result Comment: Incr eased risk for diabetes: 5.7 - 6.4 diabetes: >6.4 glycemic control for adults with diabetes: <7.0 Performed By: #### A 1C WT eA #### [facility] [address] [place] [address] Basic Metabolic Panelon 10 Anion gap [Moles/Vol] 10.9 mmol/L Normal 6.0-15.0 [facility] Comment on above: Performed By: #### G LULS #### Point of Care testing , Calcium [Mass/Vol] 8.8 mg/dL Normal 8.6-10.3 [facility] Comment on above: Performed By: #### G LULS #### Point of Care testing , Chloride [Moles/Vol] 104 mmol/L Normal 98-107 [facility] Comment on above: Performed By: #### G ROSLYNLS #### Point of Care testing , CO2 [Moles/Vol] 24.0 mmol/L Normal 21.0-31.0 [facility] Comment on above: Performed By: #### G ROSLYNLS #### Point of Care testing , Creatinine [Mass/Vol] 0.54 mg/dL Low 0.60-1.20 [facility] Comment on above: Performed By: #### G ROSLYNLS #### Point of Care testing , Creatinine Clr Calc Pharmacy 119.14 [facility] Comment on above: Performed By: #### G ROSLYNLS #### Point of Care testing , GFR/1.73 sq M.predicted MDRD (S/P/Bld) [Vol rate/Area] mL/min/{1.73_m2} [facility] Comment on above: Performed By: #### G ROSLYNLS #### Point of Care testing , Glucose [Mass/Vol] 95 mg/dL Normal 70-100 [facility] Comment on above: Result Comment: [facility] Glucose Reference Range is dependent on time and content of last meal. Glucose of more than 200 mg/dL in a nonstressed, ambulatory subject supports the diagnosis of Diabetes Mellitus. ADA recommended reference range Performed By: #### G ROSLYNLS #### Point of Care testing , Potassium [Moles/Vol] 3.9 mmol/L Normal 3.5-5.1 [facility] Comment on above: Performed By: #### G ROSLYNLS #### Point of Care testing , Sodium [Moles/Vol] 135 mmol/L Low 136-145 [facility] Comment on above: Performed By: #### G ROSLYNLS #### Point of Care testing , Urea nitrogen [Mass/Vol] 10 mg/dL Normal 7-25 [facility] Comment on above: Performed By: #### G ROSLYNLS #### Point of Care testing , CT abdomen pelvis w brice CT abdomen pelvis w [facility] Main [address] [address] [address] Scan Report Signed Patient: Julieth Spencer MR#: [id number] : 1985 Acct:[id number] Age/Sex: 37 / F ADM Date: 07/16/23 Loc: 4N Room: 2J7010-3 Type: ADM IN Attending Dr: Allen Borges DO Copies to: DO Troy Grant DO Ordering Provider: Troy Haile DO Date of Service: 07/15/23 CT/CT abdomen pelvis w con: r/o acute pancreatitis CT ABDOMEN AND PELVIS WITH INTRAVENOUS CONTRAST: CLINICAL HISTORY: Nausea vomiting diarrhea. COMPARISON: CT abdomen and pelvis 04/28/2020 TECHNIQUE: Spiral images were obtained through the abdomen and pelvis following the administration of intravenous contrast. This CT exam was performed using one or more following dose reduction techniques: Automated exposure control, adjustment of the mA and/or kV according to patient size, or use of iterative reconstruction technique. FINDINGS: Lung Bases: [Mild bibasilar scarring.] Organs:Gallbladder has been removed with compensatory dilatation of the biliary system. Liver spleen and adrenal glands appear unremarkable. No enhancing renal mass or hydronephrosis. Abdominal aorta appears normal in caliber.[Pancreas demonstrates evidence of chronic pancreatitis. There are mild inflammatory changes surrounding the distal pancreatic body and tail which could represent an acute component. No peripancreatic fluid collection is seen. GI: Stomach is grossly unremarkable. Small bowel appears nondilated. No acute colonic abnormality.[Appendix is normal. Pelvis:[Urinary bladder is grossly unremarkable. Uterus is grossly unremarkable. No adnexal mass.] Peritoneum/Retroperitone um:No free air, free fluid or lymphadenopathy.[ Abd wall/Bones:Abdominal wall demonstrates no acute findings. Osseous structures demonstrate no acute bony process.[ CT/CT abdomen pelvis w con IMPRESSION: 1. CT evidence of chronic pancreatitis. There are mild inflammatory changes surrounding the distal pancreatic body and tail which could represent an acute component. Correlation with lipase level suggested. Impression dictated by: Jeff Good Jr., D.OAlia07/16/2023 9:31 AM Dictation Location: [place] [address] Transcribed By: [facility] 07/16/23930 Dictated By: Jeff Good Jr, DO 07/16/23925 Signed By: 07/16/23930 [facility] Complete Blood Count Auto Di ffon 07-16-2023 Basophils (Bld) [#/Vol] 0.1 10*3/uL Normal 0.0-0.2 [facility] Comment on above: Result Comment: PERF ORMED BY: [facility] [place] [address] PATHOLOGIST [employer] DARELL FIORE M.D. Performed By: #### G LULS #### Point of Care testing , Basophils/100 WBC (Bld) 0.7 % Normal . [facility] Comment on above: Performed By: #### G LULS #### Point of Care testing , Eosinophils (Bld) [#/Vol] 0.1 10*3/uL Normal 0.0-0.45 [facility] Comment on above: Performed By: #### G LULS #### Point of Care testing , Eosinophils/100 WBC (Bld) 1.0 % Normal . [facility] Comment on above: Performed By: #### G LULS #### Point of Care testing , Erythrocyte distribution width (RBC) [Ratio] 14.2 % Normal 11.9-15.3 [facility] Comment on above: Performed By: #### G LULS #### Point of Care testing , Hematocrit (Bld) [Volume fraction] 35.1 % Normal 34.0-46.4 [facility] Comment on above: Performed By: #### G LULS #### Point of Care testing , Hemoglobin (Bld) [Mass/Vol] 11.9 g/dL Normal 11.8-15.4 [facility] Comment on above: Performed By: #### G LULS #### Point of Care testing , Lymphocytes (Bld) [#/Vol] 2.7 10*3/uL Normal 1.00-4.8 [facility] Comment on above: Performed By: #### G LULS #### Point of Care testing , Lymphocytes/100 WBC (Bld) 34.4 % Normal . [facility] Comment on above: Performed By: #### G LULS #### Point of Care testing , MCH (RBC) [Entitic mass] 31.9 pg Normal 24.7-34.3 [facility] Comment on above: Performed By: #### G ROSLYNLS #### Point of Care testing , MCV (RBC) [Entitic vol] 93.7 fL Normal 80-100 [facility] Comment on above: Performed By: #### G LULS #### Point of Care testing , Mean Corpuscular HGB Conc 34.0 g/dL Normal 32.0-35.0 [facility] Comment on above: Performed By: #### G ROSLYNLS #### Point of Care testing , Monocytes (Bld) [#/Vol] 0.4 10*3/uL Normal 0.0-0.8 [facility] Comment on above: Performed By: #### G ROSLYNLS #### Point of Care testing , Monocytes/100 WBC (Bld) 21.41 % High 0.00-20.00 [facility] Comment on above: Result Comment: For adults in ED, MDW > 20.0 may be associated with a higher risk of sepsis during the first 12 hrs of hospital admission Performed By: #### G LULS #### Point of Care testing , Monocytes/100 WBC (Bld) 5.3 % Normal . [facility] Comment on above: Performed By: #### G LULS #### Point of Care testing , Neutrophils (Bld) [#/Vol] 4.6 10*3/uL Normal 1.8-7.7 [facility] Comment on above: Performed By: #### G LULS #### Point of Care testing , Neutrophils/100 WBC (Bld) 58.6 % Normal . [facility] Comment on above: Performed By: #### G LULS #### Point of Care testing , NRBC% 0.1 /100{WBC} Normal 0-0.5 [facility] Comment on above: Performed By: #### G LULS #### Point of Care testing , Platelet mean volume (Bld) [Entitic vol] 7.9 fL Normal 6.3-10.7 [facility] Comment on above: Performed By: #### G LULS #### Point of Care testing , Platelets (Bld) [#/Vol] 225 10*3/uL Normal 150-450 [facility] Comment on above: Performed By: #### G LULS #### Point of Care testing , RBC (Bld) [#/Vol] 3.74 10*6/uL Normal 3.60-5.00 [facility] Comment on above: Performed By: #### G LULS #### Point of Care testing , WBC (Bld) [#/Vol] 7.8 10*3/uL Normal 3.8-11.6 [facility] Comment on above: Performed By: #### G LULS #### Point of Care testing , Glucose Poct Glucometerson 1 Glucose [Mass/Vol] 126 mg/dL Normal [facility] Comment on above: Result Comment: [facility] Glucose Reference Range is dependent on time and content of last meal. Glucose of more than 200 mg/dL in a nonstressed, ambulatory subject supports the diagnosis of Diabetes Mellitus. PERFORMED BY: [facility] [address] [facility] [place] [id number] PATHOLOGIST [employer]ER DARELL FIORE M.D. Performed By: #### G LULS #### Point of Care testing , Glucose [Mass/Vol] 196 mg/dL Normal [facility] Comment on above: Result Comment: [facility] Glucose Reference Range is dependent on time and content of last meal. Glucose of more than 200 mg/dL in a nonstressed, ambulatory subject supports the diagnosis of Diabetes Mellitus. PERFORMED BY: [facility] [address] [facility] [place] [address] PATHOLOGIST [employer] WORKER DARELL FIORE M.D. Performed By: #### G LULS #### Point of Care testing , Glucose [Mass/Vol] 117 mg/dL Normal [facility] Comment on above: Result Comment: [facility] Glucose Reference Range is dependent on time and content of last meal. Glucose of more than 200 mg/dL in a nonstressed, ambulatory subject supports the diagnosis of Diabetes Mellitus. PERFORMED BY: [place] [address] PATHOLOGIST [employer]ER DARELL FIORE M.D. Performed By: #### B MP #### [facility] [address] [place] [address] [facility] Glucose [Mass/Vol] 123 mg/dL Normal [facility] Comment on above: Result Comment: [place] Glucose Reference Range is dependent on time and content of last meal. Glucose of more than 200 mg/dL in a nonstressed, ambulatory subject supports the diagnosis of Diabetes Mellitus. PERFORMED BY: [place] [address] PATHOLOGIST [employer] WORKER DARELL FIORE M.D. Performed By: #### B MP #### [address] [address] [facility] Glucose mean value [Mass/vol ume] in Blood Estimated from glycated hemoglobinOrdered By: Gini Harper on 07-16-2023 Average glucose Estimated from glycated hemoglobin (Bld) [Mass/Vol] 120 mg/dL [facility] Hemoglobin A1c percentageOrd ered By: Gini Harper on 07-16-2023 HbA1c (Bld) [Mass fraction] 5.8 % 4.3-5.6 [facility] Comment on above: Increased risk for d iabetes: 5.7 - 6.4diabetes: >6.4glycemic control for adults with diabetes: <7.0 Hepatic Panelon 07-16-2023 Albumin [Mass/Vol] 3.9 g/dL Normal 3.5-5.7 [facility] Comment on above: Performed By: #### G LULS #### Point of Care testing , Albumin/Globulin [Mass ratio] 1.2 {ratio} Normal [facility] Comment on above: Performed By: #### G LULS #### Point of Care testing , ALP [Catalytic activity/Vol] 88 U/L Normal 34-104 [facility] Comment on above: Performed By: #### G LULS #### Point of Care testing , ALT [Catalytic activity/Vol] 21 U/L Normal 7-52 [facility] Comment on above: Performed By: #### G LULS #### Point of Care testing , AST [Catalytic activity/Vol] 17 U/L Normal 13-39 [facility] Comment on above: Performed By: #### G ROSLYNLS #### Point of Care testing , Bilirubin [Mass/Vol] 0.5 mg/dL Normal 0.3-1.0 [facility] Comment on above: Performed By: #### G ROSLYNLS #### Point of Care testing , Bilirubin,Indirect 0.4 mg/dL Normal [facility] Comment on above: Performed By: #### G ROSLYNLS #### Point of Care testing , Bilirubin.indirect [Mass/Vol] 0.10 mg/dL Normal 0.03-0.18 [facility] Comment on above: Performed By: #### G LULS #### Point of Care testing , Globulin (S) [Mass/Vol] 3.3 g/dL Normal [facility] Comment on above: Performed By: #### G ROSLYNLS #### Point of Care testing , Protein [Mass/Vol] 7.2 g/dL Normal 6.4-8.9 [facility] Comment on above: Performed By: #### G ROSLYNLS #### Point of Care testing , Lipaseon 07-16-2023 Lipase [Catalytic activity/Vol] 4.0 U/L Low 11.0-82.0 [facility] Comment on above: Result Comment: PERF ORMED BY: [facility] [address] [place] [address] PATHOLOGIST [employer] DARELL FIORE M.D. Performed By: #### G ROSLYNLS #### Point of Care testing , Alanine aminotransferase [En zymatic activity/volume] in Serum or PlasmaOrdered By: Troy Haile on 07-15-2023 ALT [Catalytic activity/Vol] 21 U/L 7-52 [facility] Albumin [Mass/volume] in Ser um or Plasma by Bromocresol green (BCG) dye binding methoOrdered By: Troy Haile on 07-15-2023 Albumin BCG dye [Mass/Vol] 3.9 g/dL 3.5-5.7 [facility] Alkaline phosphatase [Enzyma tic activity/volume] in Serum or PlasmaOrdered By: Troy Haile on 07-15-2023 ALP [Catalytic activity/Vol] 88 U/L 34-104 [facility] Aspartate aminotransferase [ Enzymatic activity/volume] in Serum or PlasmaOrdered By: Troy Haile on 07-15-2023 AST [Catalytic activity/Vol] 17 U/L 13-39 [facility] Automated erythrocytes count in urine sediment (number/area)Ordered By: Troy Haile on 07-15-2023 RBC Auto (Urine sed) [#/Area] 3-4 [HPF] 0-4 [facility] Automated leukocytes count i n urine sediment (number/area)Ordered By: Troy Haile on 07-15-2023 WBC Auto (Urine sed) [#/Area] 5-9 [HPF] 0-4 [facility] Basophils Auto (Bld) [#/Vol] Ordered By: Troy Haile on 07-15-2023 Basophils (Bld) [#/Vol] 0.1 10*3/uL 0.0-0.2 [facility] Basophils/100 WBC Auto (Bld) Ordered By: Troy Haile on 07-15-2023 Basophils/100 WBC (Bld) 0.7 % . [facility] Bilirubin Test strip Ql (U)O rdered By: Troy Haile on 07-15-2023 Bilirubin Ql (U) Negative Negative [facility] Bilirubin.direct [Mass/volum e] in Serum or PlasmaOrdered By: Troy Haile on 07-15-2023 Bilirubin.direct [Mass/Vol] 0.10 mg/dL 0.03-0.18 [facility] Bilirubin.total [Mass/volume ] in Serum or PlasmaOrdered By: Troy Haile on 07-15-2023 Bilirubin [Mass/Vol] 0.5 mg/dL 0.3-1.0 [facility] Calcium [Mass/volume] in Ser um or PlasmaOrdered By: Troy Haile on 07-15-2023 Calcium [Mass/Vol] 8.8 mg/dL 8.6-10.3 [facility] Carbon dioxide, total [Moles /volume] in Serum or PlasmaOrdered By: Troy Haile on 07-15-2023 CO2 [Moles/Vol] 24.0 mmol/L 21.0-31.0 [facility] Chloride [Moles/volume] in S ty or PlasmaOrdered By: Troy Haile on 07-15-2023 Chloride [Moles/Vol] 104 mmol/L 98-107 [facility] Color Auto (U)Ordered By: Yamil Haile on 07-15-2023 Color (U) Yellow Yellow [facility] Creatinine [Mass/volume] in Serum or PlasmaOrdered By: Troy Haile on 07-15-2023 Creatinine [Mass/Vol] 0.54 mg/dL 0.60-1.20 [facility] Dipstick [facility] Microscopicon 1 Appearance (U) Cloudy Critically abnormal Clear [facility] Comment on above: Order Comment: Name Collection Type:: Clean-Voided Midstream Performed By: #### G LULS #### Point of Care testing , Bacteria,Urine 2+ High None Seen [facility] Comment on above: Order Comment: Name Collection Type:: Clean-Voided Midstream Performed By: #### G LULS #### Point of Care testing , Bilirubin,Urine Negative Normal Negative [facility] Comment on above: Order Comment: Name Collection Type:: Clean-Voided Midstream Performed By: #### G LULS #### Point of Care testing , Color (U) Yellow Normal Yellow [facility] Comment on above: Order Comment: Name Collection Type:: Clean-Voided Midstream Performed By: #### G LULS #### Point of Care testing , Glucose Ql (U) Normal Normal Normal [facility] Comment on above: Order Comment: Name Collection Type:: Clean-Voided Midstream Performed By: #### G LULS #### Point of Care testing , Hyaline Casts,Urine 0-8 Normal 0-8 [facility] Comment on above: Order Comment: Name Collection Type:: Clean-Voided Midstream Performed By: #### G LULS #### Point of Care testing , Ketones Ql (U) Negative Normal Negative [facility] Comment on above: Order Comment: Name Collection Type:: Clean-Voided Midstream Performed By: #### G LULS #### Point of Care testing , Leukocyte esterase Test strip Ql (U) 1+ High Negative [facility] Comment on above: Order Comment: Name Collection Type:: Clean-Voided Midstream Performed By: #### G LULS #### Point of Care testing , Nitrite,Urine Negative Normal Negative [facility] Comment on above: Order Comment: Name Collection Type:: Clean-Voided Midstream Performed By: #### G LULS #### Point of Care testing , Occult Blood,Urine Negative Normal Negative [facility] Comment on above: Order Comment: Name Collection Type:: Clean-Voided Midstream Performed By: #### G LULS #### Point of Care testing , pH (U) 6.5 [pH] Normal 5.0-9.0 [facility] Comment on above: Order Comment: Name Collection Type:: Clean-Voided Midstream Performed By: #### G LULS #### Point of Care testing , Protein,Urine Trace High Negative [facility] Comment on above: Order Comment: Name Collection Type:: Clean-Voided Midstream Performed By: #### G LULS #### Point of Care testing , RBC,Urine 3-4 Normal 0-4 [facility] Comment on above: Order Comment: Name Collection Type:: Clean-Voided Midstream Performed By: #### G LULS #### Point of Care testing , Specificy [place],Urine 1.023 Normal 1.001-1.030 [facility] Comment on above: Order Comment: Name Collection Type:: Clean-Voided Midstream Performed By: #### G LULS #### Point of Care testing , Squamous Epithelial Cell,Urine 10-19 High 0-2 [facility] Comment on above: Order Comment: Name Collection Type:: Clean-Voided Midstream Performed By: #### G LULS #### Point of Care testing , Urobilinogen,Urine Normal Normal Normal [facility] Comment on above: Order Comment: Name Collection Type:: Clean-Voided Midstream Performed By: #### G LULS #### Point of Care testing , WBC,Urine 5-9 High 0-4 [facility] Comment on above: Order Comment: Name Collection Type:: Clean-Voided Midstream Performed By: #### G LULS #### Point of Care testing , Eosinophils Auto (Bld) [#/Vo l]Ordered By: Troy Haile on 07-15-2023 Eosinophils (Bld) [#/Vol] 0.1 10*3/uL 0.0-0.45 [facility] Eosinophils/100 WBC Auto (Bl d)Ordered By: Troy Haile on 07-15-2023 Eosinophils/100 WBC (Bld) 1.0 % . [facility] Erythrocyte distribution wid th Auto (RBC) [Ratio]Ordered By: Troy Haile on 07-15-2023 Erythrocyte distribution width (RBC) [Ratio] 14.2 % 11.9-15.3 [facility] Globulin Calc (S) [Mass/Vol] Ordered By: Troy Haile on 07-15-2023 Globulin (S) [Mass/Vol] 3.3 g/dL [facility] Glucose [Mass/volume] in Ser um or PlasmaOrdered By: Troy Haile on 07-15-2023 Glucose [Mass/Vol] 95 mg/dL 70-100 [facility] Comment on above: ADA recommended refe rence rangeRandom Glucose Reference Range is dependent on time and content of last meal. Glucose of more than 200 mg/dL in a nonstressed, ambulatory subject supports the diagnosis of Diabetes Mellitus. HCG ( test) IA.rapi d Ql (U)Ordered By: PROVIDER TEMP on 07-15-2023 HCG ( test) Ql (U) Negative [facility] HCG,Urineon 07-15-2023 Beta HCG ( test) Ql (U) Negative Normal [facility] Comment on above: Order Comment: Name Collection Type:: Clean-Voided Midstream Result Comment: PERF ORMED BY: [facility] [address] [place] [address] PATHOLOGIST GROUP SOCIAL WORKER DARELL FIORE M.D. Performed By: #### G ROSLYNLS #### Point of Care testing , Hematocrit Auto (Bld) [Volum e fraction]Ordered By: Troy Haile on 07-15-2023 Hematocrit (Bld) [Volume fraction] 35.1 % 34.0-46.4 [facility] Hemoglobin [Mass/volume] in BloodOrdered By: Troy Haile on 07-15-2023 Hemoglobin (Bld) [Mass/Vol] 11.9 g/dL 11.8-15.4 [facility] Ketones Auto test strip (U) [Mass/Vol]Ordered By: Troy Haile on 07-15-2023 Ketones (U) [Mass/Vol] Negative Negative [facility] Laboratory - UrinalysisOrder ed By: Troy Haile on 07-15-2023 Hyaline casts LM Ql (Urine sed) 0-8 [LPF] 0-8 [facility] Leukocytes [#/volume] correc gregor for nucleated erythrocytes in Blood by Automated counOrdered By: Troy Haile on 07-15-2023 WBC corrected for nucl RBC Auto (Bld) [#/Vol] 7.8 10*3/uL 3.8-11.6 [facility] Lipase [Enzymatic activity/v olume] in Serum or PlasmaOrdered By: Troy Haile on 07-15-2023 Lipase [Catalytic activity/Vol] 4.0 U/L 11.0-82.0 [facility] Lymphocytes Auto (Bld) [#/Vo l]Ordered By: Troy Haile on 07-15-2023 Lymphocytes (Bld) [#/Vol] 2.7 10*3/uL 1.00-4.8 [facility] Lymphocytes/100 WBC Auto (Bl d)Ordered By: Troy Haile on 07-15-2023 Lymphocytes/100 WBC (Bld) 34.4 % . [facility] MCH Auto (RBC) [Entitic mass ]Ordered By: Troy Haile on 07-15-2023 MCH (RBC) [Entitic mass] 31.9 pg 24.7-34.3 [facility] MCHC Auto (RBC) [Mass/Vol]Or dered By: Troy Haile on 07-15-2023 MCHC (RBC) [Mass/Vol] 34.0 g/dL 32.0-35.0 [facility] MCV Auto (RBC) [Entitic vol] Ordered By: Troy Haile on 07-15-2023 MCV (RBC) [Entitic vol] 93.7 fL 80-100 [facility] Monocyte distribution width [Entitic volume] in Blood by AutomatedOrdered By: Troy Haile on 07-15-2023 Monocyte distribution width Auto (Bld) [Entitic vol] 21.41 % 0.00-20.00 [facility] Comment on above: For adults in ED, MD W > 20.0 may be associated with a higher risk of sepsis during the first 12 hrs of hospital admission Monocytes Auto (Bld) [#/Vol] Ordered By: Troy Haile on 07-15-2023 Monocytes (Bld) [#/Vol] 0.4 10*3/uL 0.0-0.8 [facility] Monocytes/100 WBC Auto (Bld) Ordered By: Troy Haile on 07-15-2023 Monocytes/100 WBC (Bld) 5.3 % . [facility] Neutrophils Auto (Bld) [#/Vo l]Ordered By: Troy Haile on 07-15-2023 Neutrophils (Bld) [#/Vol] 4.6 10*3/uL 1.8-7.7 [facility] Neutrophils/100 WBC Auto (Bl d)Ordered By: Troy Haile on 07-15-2023 Neutrophils/100 WBC (Bld) 58.6 % . [facility] Nitrite Test strip Ql (U)Ord ered By: Troy Haile on 07-15-2023 Nitrite Ql (U) Negative Negative [facility] No Panel InformationOrdered By: Troy Haile on 07-15-2023 Estimated GFR (CKD-EPI) > 60.0 mL/Min [facility] Creatinine Clearance (Chem 119.14 [facility] Nucleated erythrocytes [Pres ence] in Blood by Automated countOrdered By: Troy Haile on 07-15-2023 Nucleated RBC Auto Ql (Bld) 0.1 /100{WBC} 0-0.5 [facility] Platelet mean volume Auto (B ld) [Entitic vol]Ordered By: Troy Haile on 07-15-2023 Platelet mean volume (Bld) [Entitic vol] 7.9 fL 6.3-10.7 [facility] Platelets Auto (Bld) [#/Vol] Ordered By: Troy Haile on 07-15-2023 Platelets (Bld) [#/Vol] 225 10*3/uL 150-450 [facility] Potassium [Moles/volume] in Serum or PlasmaOrdered By: Troy Haile on 07-15-2023 Potassium [Moles/Vol] 3.9 mmol/L 3.5-5.1 [facility] Protein Auto test strip (U) [Mass/Vol]Ordered By: Troy Haile on 07-15-2023 Protein (U) [Mass/Vol] Trace mg/dL Negative [facility] Protein [Mass/volume] in Ser um or PlasmaOrdered By: Troy Haile on 07-15-2023 Protein [Mass/Vol] 7.2 g/dL 6.4-8.9 [facility] RBC Auto (Bld) [#/Vol]Ordere d By: Troy Haile on 07-15-2023 RBC (Bld) [#/Vol] 3.74 10*6/uL 3.60-5.00 [facility] Serum or plasma albumin/glob ulin mass ratioOrdered By: Troy Haile on 07-15-2023 Albumin/Globulin [Mass ratio] 1.2 {ratio} [facility] Serum or plasma anion gap de terminationOrdered By: Troy Haile on 07-15-2023 Anion gap [Moles/Vol] 10.9 mmol/L 6.0-15.0 [facility] Serum or plasma non-glucuron idated bilirubin measurement (mass/volume)Ordered By: Troy Haile on 07-15-2023 Bilirubin.indirect [Mass/Vol] 0.4 mg/dL [facility] Sodium [Moles/volume] in Ser um or PlasmaOrdered By: Troy Haile on 07-15-2023 Sodium [Moles/Vol] 135 mmol/L 136-145 [facility] Specific gravity Auto test s trip (U) [Rel density]Ordered By: Troy Haile on 07-15-2023 Specific gravity (U) [Rel density] 1.023 1.001-1.030 [facility] Squamous epithelial cells de tection in urine sediment by light microscopyOrdered By: Troy Haile on 07-15-2023 Epithelial cells.squamous LM Ql (Urine sed) 10-19 [HPF] 0-2 [facility] Urea nitrogen [Mass/volume] in Serum or PlasmaOrdered By: Troy Haile on 07-15-2023 Urea nitrogen [Mass/Vol] 10 mg/dL 7-25 [facility] Urine Cultureon 07-15-2023 Bacteria identified Cx Nom (U) >100,000 colonies/ml mixed bacterial skin contaminants 2 Days PERFORMED BY: [address] [place] [address] PATHOLOGIST [employer] WORKER DARELL FIORE M.D. [facility] Comment on above: Performed By: #### G LULS #### Point of Care testing , Urine bacteria detection by automated methodOrdered By: Troy Haile on 07-15-2023 Bacteria Auto Ql (U) 2+ None Seen [facility] Urine clarity by refractomet ry automatedOrdered By: Troy Haile on 07-15-2023 Clarity Refractometry automated (U) Cloudy Clear [facility] Urine culture routineOrdered By: Troy Haile on 07-15-2023 Bacteria identified Cx Nom (U) 2 Days [facility] Urine glucose measurement by automated test strip (mass/volume)Ordered By: Troy Haile on 07-15-2023 Glucose Auto test strip (U) [Mass/Vol] Normal mg/dL Normal [facility] Urine hemoglobin detection b y automated test stripOrdered By: Troy Haile on 07-15-2023 Hemoglobin Auto test strip Ql (U) Negative Negative [facility] Urine leukocyte esterase det ection by automated test stripOrdered By: Troy Haile on 07-15-2023 Leukocyte esterase Auto test strip Ql (U) 1+ Negative [facility] Urobilinogen Auto test strip (U) [Mass/Vol]Ordered By: Troy Haile on 07-15-2023 Urobilinogen (U) [Mass/Vol] Normal mg/dL Normal [facility] WBC Auto (Bld) [#/Vol]Ordere d By: Troy Lazara on 07-15-2023 WBC (Bld) [#/Vol] 7.8 10*3/uL 3.8-11.6 [facility] pH Auto test strip (U)Ordere d By: Troy Haile on 07-15-2023 pH (U) 6.5 [pH] 5.0-9.0 [facility] CNPNon 07-09-2023 CNPN Telephone ([facility]) -------- JULIETH SPENCER ([id number]) 1985 F Date Time Provider Department 07/09/23 ERIN OLEARY [facility] During your visit today, we recorded the following information about you: Erin Oleary RN 07/09/2023 10:07 AM Signed Duplicate note. Erin Oleary RNCC Manager Of Selection And Assessment Allergies As of Date: 07/09/2023 Noted Allergy Reaction BACTRIM (SULFAMETHOXAZOLE) 05/03/2014 2 - Rash MORPHINE 09/05/2014 14 - Other: See Comments Comments: Visual hallucinations Date Reviewed: 06/14/2022 Reviewed by: Cathy Carter, KISHA - Fully Assessed Reason for Visit: Care Coordination [1951] Future Appointment [256] Prescriptions as of 07/09/2023 - HYDROmorphone (EXALGO) 8 mg ER tablet Take 1 tablet by mouth twice daily for 30 days. - oxyCODONE (ROXICODONE) 15 mg immediate release tablet Take 1 tablet by mouth every 4 hours as needed for pain for up to 30 days. - promethazine (PHENERGAN) 25 mg tablet Take 1 tablet by mouth every 6 hours as needed. - ipynly-mfxtnalp-iwvyjhd (CREON) 36,000-114,000- 180,000 unit delayed release capsule Take 2 capsules by mouth three times daily before meals. - adalimumab (HUMIRA) 40 mg/0.8 mL injection Inject 0.8 mL subcutaneously every 2 weeks. - busPIRone (BUSPAR) 10 mg tablet Take 10 mg by mouth twice daily. - traZODone (DESYREL) 100 mg tablet Take 100 mg by mouth daily at bedtime. - cyanocobalamin, vitamin B-12, 3,000 mcg cap Take 1 capsule by mouth once every month. - cholecalciferol (VITAMIN D3) 1,000 unit tab tablet Take 1,000 Units by mouth once daily. - DULoxetine (CYMBALTA) 60 mg capsule Take 60 mg by mouth once daily. - gabapentin (NEURONTIN) 800 mg tablet Take 800 mg by mouth three times daily. - BAQSIMI 3 mg/actuation nasal spray Use 1 [place] in the nose as needed. - insulin glargine (LANTUS SOLOSTAR, BASAGLAR KWIKPEN) 100 unit/mL (3 mL) Inject 20 Units subcutaneously q 24 HR. - pantoprazole DR (PROTONIX) 40 mg tablet Take 40 mg by mouth once daily. - sucralfate (CARAFATE) 1 gram tablet Take 1 g by mouth four times daily. - hyoscyamine SR (LEVBID) 0.375 mg 12 hr tablet Take 1 tablet by mouth q 12 HR. - acetaminophen (TYLENOL) 325 mg tablet Take 2 tablets by mouth every 6 hours as needed (Temp greater than 38.5C). 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] 09/05/2014 Depression [F32.A] 09/05/2014 Anxiety [F41.9] 09/05/2014 Diarrhea [R19.7] 09/08/2014 S/P ERCP [Z98.890] 06/06/2022 Type 1 diabetes mellitus without complication (*06/06/2022 Chronic pancreatitis (HCC) [K86.1] 06/06/2022 GERD (gastroesophageal reflux disease) [K21.9] 06/06/2022 Nicotine use disorder, F17.2 [F17.200] 06/06/2022 Malnutrition of moderate degree (HCC) [E44.0] 06/07/2022 Chronic calcific pancreatitis (HCC) [K86.1] 06/08/2022 Acute on chronic pancreatitis (HCC) [K85.90, K8*06/14/2022 06/14/2022 Encounter Status:Closed by ERIN OLEARY on 07/09/23 [facility] John 06-25-2023 CNPEmma Telephone ([facility]) -------- JULIETH SPENCER ([id number]) 1985 F Date Time Provider Department 06/25/23 MATT BOND During your visit today, we recorded the following information about you: Allergies As of Date: 06/25/2023 Noted Allergy Reaction BACTRIM (SULFAMETHOXAZOLE) 05/03/2014 2 - Rash MORPHINE 09/05/2014 14 - Other: See Comments Comments: Visual hallucinations Date Reviewed: 06/14/2022 Reviewed by: Cathy Carter, RN - Fully Assessed Prescriptions as of 06/25/2023 - HYDROmorphone (EXALGO) 8 mg ER tablet Take 1 tablet by mouth twice daily for 30 days. - oxyCODONE (ROXICODONE) 15 mg immediate release tablet Take 1 tablet by mouth every 4 hours as needed for pain for up to 30 days. - promethazine (PHENERGAN) 25 mg tablet Take 1 tablet by mouth every 6 hours as needed. - peprgp-burjvlhz-lktgnqy (CREON) 36,000-114,000- 180,000 unit delayed release capsule Take 2 capsules by mouth three times daily before meals. - adalimumab (HUMIRA) 40 mg/0.8 mL injection Inject 0.8 mL subcutaneously every 2 weeks. - busPIRone (BUSPAR) 10 mg tablet Take 10 mg by mouth twice daily. - traZODone (DESYREL) 100 mg tablet Take 100 mg by mouth daily at bedtime. - cyanocobalamin, vitamin B-12, 3,000 mcg cap Take 1 capsule by mouth once every month. - cholecalciferol (VITAMIN D3) 1,000 unit tab tablet Take 1,000 Units by mouth once daily. - DULoxetine (CYMBALTA) 60 mg capsule Take 60 mg by mouth once daily. - gabapentin (NEURONTIN) 800 mg tablet Take 800 mg by mouth three times daily. - BAQSIMI 3 mg/actuation nasal spray Use 1 [place] in the nose as needed. - insulin glargine (LANTUS SOLOSTAR, BASAGLAR KWIKPEN) 100 unit/mL (3 mL) Inject 20 Units subcutaneously q 24 HR. - pantoprazole DR (PROTONIX) 40 mg tablet Take 40 mg by mouth once daily. - sucralfate (CARAFATE) 1 gram tablet Take 1 g by mouth four times daily. - hyoscyamine SR (LEVBID) 0.375 mg 12 hr tablet Take 1 tablet by mouth q 12 HR. - acetaminophen (TYLENOL) 325 mg tablet Take 2 tablets by mouth every 6 hours as needed (Temp greater than 38.5C). Problem List As Of Date 06/25/2023 Noted Resolved REGIONAL ENTERITIS NOS [K50.90] 03/30/2008 SUMMARY [V999.95] 09/05/2014 Crohn disease (HCC) [K50.90] 09/05/2014 Arthritis in Crohn's disease [M07.60, K50.919] 09/05/2014 Depression [F32.A] 09/05/2014 Anxiety [F41.9] 09/05/2014 Diarrhea [R19.7] 09/08/2014 S/P ERCP [Z98.890] 06/06/2022 Type 1 diabetes mellitus without complication (*06/06/2022 Chronic pancreatitis (HCC) [K86.1] 06/06/2022 GERD (gastroesophageal reflux disease) [K21.9] 06/06/2022 Nicotine use disorder, F17.2 [F17.200] 06/06/2022 Malnutrition of moderate degree (HCC) [E44.0] 06/07/2022 Chronic calcific pancreatitis (HCC) [K86.1] 06/08/2022 Acute on chronic pancreatitis (HCC) [K85.90, K8*06/14/2022 06/14/2022 Encounter Status:Closed by AMALIA STOCK on 06/25/23 [facility] CNPNon [facility] -------- JULIETH SPENCER ([id number]) 1985 F Date Time Provider Department 05/17/23 RAMOS PAREKH [facility] During your visit today, we recorded the following information about you: Mary Patient Lead Sql DeveloperTorito 05/17/2023 9:51 AM Signed Patient called in requesting to re-establish with . previous patient. Added on for today. Allergies As of Date: 05/17/2023 Noted Allergy Reaction BACTRIM (SULFAMETHOXAZOLE) 05/03/2014 2 - Rash MORPHINE 09/05/2014 14 - Other: See Comments Comments: Visual hallucinations Date Reviewed: 06/14/2022 Reviewed by: Cathy Carter, RN - Fully Assessed Prescriptions as of 05/17/2023 - frowaf-zhsxqrax-hhedxie (CREON) 36,000-114,000- 180,000 unit delayed release capsule Take 2 capsules by mouth three times daily before meals. - adalimumab (HUMIRA) 40 mg/0.8 mL injection Inject 0.8 mL subcutaneously every 2 weeks. - busPIRone (BUSPAR) 10 mg tablet Take 10 mg by mouth twice daily. - traZODone (DESYREL) 100 mg tablet Take 100 mg by mouth daily at bedtime. - cyanocobalamin, vitamin B-12, 3,000 mcg cap Take 1 capsule by mouth once every month. - cholecalciferol (VITAMIN D3) 1,000 unit tab tablet Take 1,000 Units by mouth once daily. - DULoxetine (CYMBALTA) 60 mg capsule Take 60 mg by mouth once daily. - gabapentin (NEURONTIN) 800 mg tablet Take 800 mg by mouth three times daily. - BAQSIMI 3 mg/actuation nasal spray Use 1 [place] in the nose as needed. - insulin glargine (LANTUS SOLOSTAR, BASAGLAR KWIKPEN) 100 unit/mL (3 mL) Inject 20 Units subcutaneously q 24 HR. - oxyCODONE IR (ROXICODONE) 5 mg immediate release tablet Take 5 mg by mouth as needed. - pantoprazole DR (PROTONIX) 40 mg tablet Take 40 mg by mouth once daily. - sucralfate (CARAFATE) 1 gram tablet Take 1 g by mouth four times daily. - promethazine (PHENERGAN) 25 mg tablet Take 25 mg by mouth every 6 hours as needed. - hyoscyamine SR (LEVBID) 0.375 mg 12 hr tablet Take 1 tablet by mouth q 12 HR. - acetaminophen (TYLENOL) 325 mg tablet Take 2 tablets by mouth every 6 hours as needed (Temp greater than 38.5C). Problem List As Of Date 05/17/2023 Noted Resolved REGIONAL ENTERITIS NOS [K50.90] 03/30/2008 SUMMARY [V999.95] 09/05/2014 Crohn disease (HCC) [K50.90] 09/05/2014 Arthritis in Crohn's disease [M07.60, K50.919] 09/05/2014 Depression [F32.A] 09/05/2014 Anxiety [F41.9] 09/05/2014 Diarrhea [R19.7] 09/08/2014 S/P ERCP [Z98.890] 06/06/2022 Type 1 diabetes mellitus without complication (*06/06/2022 Chronic pancreatitis (HCC) [K86.1] 06/06/2022 GERD (gastroesophageal reflux disease) [K21.9] 06/06/2022 Nicotine use disorder, F17.2 [F17.200] 06/06/2022 Malnutrition of moderate degree (HCC) [E44.0] 06/07/2022 Chronic calcific pancreatitis (HCC) [K86.1] 06/08/2022 Acute on chronic pancreatitis (HCC) [K85.90, K8*06/14/2022 06/14/2022 Encounter Status:Closed by MARY PATIENT DIRECTOR GROUP SALESTORITO on 05/17/23 [facility] Care[facility] 03-01-2023 Palliative Care Diagnoses/Problems Health Maintenance/Risks Encounter for preventive health examination (V70.0) (Z00.00) Assessed Chronic abdominal pain (789.00,338.29) (R10.9,G89.29) Chronic pancreatitis (577.1) (K86.1) Crohn's disease (555.9) (K50.90) Palliative care encounter (V66.7) (Z51.5) Orders Health Maintenance Stop: busPIRone HCl - 15 MG Oral Tablet Stop: Nicotine 21 MG/24HR Transdermal Patch 24 Hour Patient Discussion/Summary -Pain is about the same as her last visit. Her mental health is doing much better after seeing her new psychiatrist and therapist. -We will continue the hydromorphone ER 8 mg 1-2 times a day and the oxycodone IR 15 mg every 4 hours as needed for pain Chief Complaint An interactive audio and video telecommunication system which permits real time communications between the patient (at the originating site) and provider (at the distant site) was utilized to provide this telehealth service. Verbal consent was requested and obtained from JULIETH SPENCER on this date, 03/01/2023 08:30 AM , for a telehealth visit. Patient has a follow-up for palliative care today. History of Present Illness Zoey is doing well today. Her mental health is doing significantly better since she started seeing a new psychiatrist and therapist. She still feels a little bit anxious and depressed however though. She was recently diagnosed with PTSD. She feels like that she has been learning a lot from her new therapist and psychiatrist. She thinks they have been very helpful and she feels much better. She is learning new coping skills which are also helping. She is going to the dentist today. She has gained 4 pounds in the last 2 weeks. She has a goal being 120 pounds prior to the surgery because she knows that she will lose a lot of weight and strength following the procedure. She wants to be in her best physical and mental health prior to the procedure. She does not know when she is getting the procedure done. She does not think she needs to get it done urgently now because her health has been better. Her pain is relatively well controlled. She is prescribed hydromorphone extended release 8 mg twice a day and oxycodone immediate release 15 mg every 4 hours as needed for pain. She is using 4-5 oxycodones per day and 1-2 extended release hydromorphone per day. This is consistent with her last visit. She is sleeping better at night. Her nausea pills are working very well in controlling her nausea. Her bowel movements have had some blood in the and she is going to meet with her GI doctor about this. I have personally reviewed the OARRS report for JULIETH SPENCER. I have considered the risks of abuse, dependence, addiction and diversion. 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) Chronic abdominal pain (789.00,338.29) (R10.9,G89.29) Chronic pancreatitis (577.1) (K86.1) Chronic pancreatitis, unspecified pancreatitis type (577.1) (K86.1) Crohn's disease (555.9) (K50.90) Diarrhea (787.91) (R19.7) DM type 1 (diabetes mellitus, type 1) (250.01) (E10.9) Encounter for pancreatic duct stent exchange (V53.59) (Z46.59) Palliative care encounter (V66.7) (Z51.5) Surgical History Problems History of Cholecystectomy History of Colonoscopy History of Endoscopic retrograde cholangiopancreatography History of Esophagogastroduodenosco py History of Gastrointestinal stent placement Family History Mother No pertinent family history Father No pertinent family history Social History Problems Electronic cigarette use (305.1) (Z78.9) No alcohol use No illicit drug use Allergies Medication Bactrim Recorded By: Gianna Blanchard; 06/29/2021 3:01:33 PM Current Meds Medication NameInstruction Atomoxetine HCl - 60 MG Oral CapsuleTAKE 1 CAPSULE BY MOUTH DAILY. busPIRone HCl - 15 MG Oral Tablettake 1 tablet by mouth twice a day cloNIDine HCl - 0.1 MG Oral TabletTAKE 1 TABLET BY MOUTH EVERY DAY AT BEDTIME NEEDED Creon [id number] UNIT Oral Capsule Delayed Release ParticlesPlease take 1 capsule by mouth with each meal three times a day Creon [id number] UNIT Oral Capsule Delayed Release ParticlesTAKE 1 CAPSULE 3 TIMES DAILY WITH MEALS BY MOUTH DULoxetine HCl - 60 MG Oral Capsule Delayed Release Particlestake 1 capsule by mouth every morning Gabapentin 600 MG Oral TabletTAKE 1 TABLET BY MOUTH THREE TIMES DAILY Humira Pen 40 MG/0.4ML Subcutaneous Pen-injector KitINJECT ONE PEN EVERY OTHER WEEK HYDROmorphone HCl ER 8 MG Oral Tablet Extended Release 24 HourTAKE 1 TABLET BY MOUTH TWICE DAILY Insulin Lispro 100 UNIT/ML SOLNper insulin pump Loperamide HCl - 2 MG Oral TabletTAKE 2 TABLETS BY MOUTH INITIALLY, FOLLOWED BY 1 TABLET AFTER EACH LOOSE BOWEL MOVEMENT. DO NOT EXCEED 8 TABLETS/DAY. LORazepam 0.5 MG Oral TabletTAKE 1 TABLET BY MOUTH UP TO 2 TIMES A DAY NEEDED Mirtazapine 7.5 MG Oral TabletTAKE 1 TABLET (more content not included)... [facility] Palliative Care Diagnoses/Problems Health Maintenance/Risks Encounter for preventive health examination (V70.0) (Z00.00) Assessed Chronic pancreatitis (577.1) (K86.1) Chronic abdominal pain (789.00,338.29) (R10.9,G89.29) Crohn's disease (555.9) (K50.90) Palliative care encounter (V66.7) (Z51.5) Patient Discussion/Summary - Appears to be worse than what it was at her last visit. We agree with the decision for her to get surgery soon. -For now we will continue the hydromorphone ER 8 mg 1-2 times a day and the oxycodone IR 15 mg every 4 hours as needed for pain -We will reach out to her surgeon to for our services to help with pain management in the postoperative period including weaning her off opioids as her pain should resolve after surgery -She has a few questions about who should be managing her Crohn's disease, we will reach out to figure out if we can help her figure this out Follow-up will depend on her surgery. She will follow-up as needed prior to her procedure Chief Complaint An interactive audio and video telecommunication system which permits real time communications between the patient (at the originating site) and provider (at the distant site) was utilized to provide this telehealth service. Verbal consent was requested and obtained from JULIETH SPENCER on this date, 12/28/2022 10:00 AM , for a telehealth visit. follow up for palliative care History of Present Illness Cancer presents to the palliative care clinic for follow-up of her chronic pain related to her chronic pancreatitis. She is doing little worse than when she was at her last visit. She stated that in November she was doing better, however now things have gotten worse. Her weight is down and her appetite is poor. She is having really bad nausea. The promethazine is working very well for her. She continues to report that she is having abdominal pain. Her current pain medications of hydromorphone extended release and oxycodone immediate release are working well for her. Some days are more rough than others. This past Saturday she almost went to the hospital, however she was able to stay at the hospital by drinking chamomile tea and getting in the hot sun been taking Ativan. For her pain she is prescribed hydromorphone ER 8 mg 1-2 times a day and oxycodone IR 15 mg every 4 hours as needed for pain. On bad days she takes the oxycodone about 4-5 times a day. She denied having any side effects. She is not sleeping well because of the pain here recently. She is also noticed that she has had blood in her stool. She is going to schedule surgery to remove her pancreas soon. She will be admitted to [facility] for this. She had no other concerns today. I have personally reviewed the OARRS report for JULIETH SPENCER. I have considered the risks of abuse, dependence, addiction and diversion. 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) Chronic abdominal pain (789.00,338.29) (R10.9,G89.29) Chronic pancreatitis (577.1) (K86.1) Chronic pancreatitis, unspecified pancreatitis type (577.1) (K86.1) Crohn's disease (555.9) (K50.90) Diarrhea (787.91) (R19.7) DM type 1 (diabetes mellitus, type 1) (250.01) (E10.9) Encounter for pancreatic duct stent exchange (V53.59) (Z46.59) Palliative care encounter (V66.7) (Z51.5) Surgical History Problems History of Cholecystectomy History of Colonoscopy History of Endoscopic retrograde cholangiopancreatography History of Esophagogastroduodenosco py History of Gastrointestinal stent placement Family History Mother No pertinent family history Father No pertinent family history Social History Problems Electronic cigarette use (305.1) (Z78.9) No alcohol use No illicit drug use Allergies Medication Bactrim Recorded By: Gianna Blanchard; 06/29/2021 3:01:33 PM Current Meds Medication NameInstruction busPIRone HCl - 15 MG Oral Tablettake 1 tablet by mouth twice a day Creon [id number] UNIT Oral Capsule Delayed Release ParticlesPlease take 1 capsule by mouth with each meal three times a day Creon [id number] UNIT Oral Capsule Delayed Release ParticlesTAKE 1 CAPSULE 3 TIMES DAILY WITH MEALS BY MOUTH DULoxetine HCl - 60 MG Oral Capsule Delayed Release Particlestake 1 capsule by mouth every morning Gabapentin 600 MG Oral TabletTAKE 1 TABLET BY MOUTH THREE TIMES DAILY Humira Pen 40 MG/0.4ML Subcutaneous Pen-injector KitINJECT ONE PEN EVERY OTHER WEEK HYDROmorphone HCl ER 8 MG Oral Tablet Extended Release 24 HourTAKE 1 TABLET BY MOUTH TWICE DAILY Insulin Lispro 100 UNIT/ML SOLNper insulin pump Loperamide HCl - 2 MG Oral TabletTAKE 2 TABLETS BY MOUTH INITIALLY, FOLLOWED BY 1 TABLET AFTER EACH LOOSE BOWEL MOVEMENT. DO NOT EXCEED 8 TABLETS/DAY. LORazepam 0.5 MG Oral TabletTAKE 1 TABLET BY MOUTH UP TO 2 TIMES A DAY NEEDED Mirtazapine 7.5 MG Oral TabletTAKE 1 TABLET AT BEDTIME BY MOUTH Nicotine 21 MG/24HR Tra (more content not included)... Normal [facility] 11-14-2022 Follow-up visit Provider Impressions In summary, the patient has severe chronic pancreatitis. She continues to be in challenging levels of discomfort. She does want the operation however she would like to postpone until next month. This will give her time to continue to gain some weight and also address some of the challenges in terms of her state of mind which she thinks and is appropriate with the [employer] and to being very important in terms of her recovery. She will see me in early December on the [place], and we will plan for surgery sometime in December. This note was generated through dictation. Please forgive any typos or errors resulting from the dictation process. Sincerely, Tray Burk MD Chief of Surgical Oncology/[facility] Director of Surgical Services/[facility] [place] office, [id number] [place] [address] Chief Complaint A telephone visit (audio only) between the patient (at the originating site) and the provider (at the distant site) was utilized to provide this telehealth service. The patient was seen on a virtual today. She was originally slated for surgery on November 22. She is calling to inquire about potentially postponing the operation. This was a 30-minute phone call. Actually it was video. History of Present IllnessThe patient has been doing fairly well. Her weight is down 202 pounds from 110 last month. However she has been taking 3 Ensure shakes a day sometimes 4. Therefore she feels that she has been nourishing herself well. Her albumin went from 2.6-4.0. She is having some trouble psychologically in terms of her mood. There has been a lot of stress in her family. She has been seeing her therapist. Based on the fact that her weight is down and she is undergoing this emotional stress, she wonders whether she should postpone the operation by about a month. She continues to live in pain. On good days is 4 out of 10 pain. Lately over the last week its been escalating to 6 or 7 out of 10 pain. It radiates to the back and she feels it is consistent with her chronic pancreatitis. Review of Systems All other systems have been reviewed and are negative for complaint. 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) Chronic abdominal pain (789.00,338.29) (R10.9,G89.29) Chronic pancreatitis (577.1) (K86.1) Chronic pancreatitis, unspecified pancreatitis type (577.1) (K86.1) Crohn's disease (555.9) (K50.90) Diarrhea (787.91) (R19.7) DM type 1 (diabetes mellitus, type 1) (250.01) (E10.9) Encounter for pancreatic duct stent exchange (V53.59) (Z46.59) Palliative care encounter (V66.7) (Z51.5) Surgical History History of Cholecystectomy History of Colonoscopy History of Endoscopic retrograde cholangiopancreatography History of Esophagogastroduodenosco py History of Gastrointestinal stent placement Social History Electronic cigarette use (305.1) (Z78.9) No alcohol use No illicit drug use Allergies Bactrim Recorded By: Gianna Blanchard; 06/29/2021 3:01:33 PM Current Meds Medication NameInstruction busPIRone HCl - 15 MG Oral Tablettake 1 tablet by mouth twice a day Creon [id number] UNIT Oral Capsule Delayed Release ParticlesPlease take 1 capsule by mouth with each meal three times a day Creon [id number] UNIT Oral Capsule Delayed Release ParticlesTAKE 1 CAPSULE 3 TIMES DAILY WITH MEALS BY MOUTH DULoxetine HCl - 60 MG Oral Capsule Delayed Release Particlestake 1 capsule by mouth every morning Gabapentin 600 MG Oral TabletTAKE 1 TABLET BY MOUTH THREE TIMES DAILY Humira Pen 40 MG/0.4ML Subcutaneous Pen-injector KitINJECT ONE PEN EVERY OTHER WEEK HYDROmorphone HCl ER 8 MG Oral Tablet Extended Release 24 HourTAKE 1 TABLET BY MOUTH TWICE DAILY Insulin Lispro 100 UNIT/ML SOLNper insulin pump Loperamide HCl - 2 MG Oral TabletTAKE 2 TABLETS BY MOUTH INITIALLY, FOLLOWED BY 1 TABLET AFTER EACH LOOSE BOWEL MOVEMENT. DO NOT EXCEED 8 TABLETS/DAY. LORazepam 0.5 MG Oral TabletTAKE 1 TABLET BY MOUTH UP TO 2 TIMES A DAY NEEDED Nicotine 21 MG/24HR Transdermal Patch 24 Hourapply 1 patch to CLEAN, DRY, AND INTACT SKIN REMOVE AND REPLACE every 24 hours oxyCODONE HCl - 15 MG Oral TabletTAKE 1 TABLET BY MOUTH Every 4 hours PRN pain Pantoprazole Sodium 40 MG Oral Tablet Delayed Releasetake 1 tablet by mouth once daily Promethazine HCl - 12.5 MG Oral TabletTAKE 1 TABLET BY MOUTH Every 6 hours PRN nausea RA Vitamin D-3 25 MCG (1000 UT) Oral Tablettake 1 tablet by mouth once daily Sucralfate 1 GM Oral TabletTAKE 1 TABLET 4 TIMES DAILY, BEFORE MEALS AND AT BEDTIME BY MOUTH traZODone HCl - 100 MG Oral TabletTAKE 2 TABLETS BY MOUTH AT BEDTIME Physical Exam Constitutional: No distress. No abnormalities Eyes- grossly normal. ENT- Normal Cardiovascular- regular rate and rhythm Respiratory- clear b (more content not included)... [facility] 11-02-2022 Palliative Care No report was sent [facility] Diagnoses/Problems Assessed Chronic pancreatitis (577.1) (K86.1) Chronic abdominal pain (789.00,338.29) (R10.9,G89.29) Palliative care encounter (V66.7) (Z51.5) Patient Discussion/Summary - Doing well overall at this point - New scripts sent earlier this week, no need for any today - Need return of CSA, reminded patient of this - Will reach out to Dr. Burk to coordinate our efforts surrounding pain control in the perioperative and post-operative period, including our weaning strategy after surgery - Will aim for a follow up in 6 to 8 weeks Chief Complaint An interactive audio and video telecommunication system which permits real time communications between the patient (at the originating site) and provider (at the distant site) was utilized to provide this telehealth service. Verbal consent was requested and obtained from JULIETH SPENCER on this date, 11/02/2022 08:00 AM , for a telehealth visit. Palliative care follow up visit History of Present Illness Here today for exam following chronic pancreatitis and associated chronic pain. Julieth shared that she has been in a remarkably good place in recent weeks, with very low symptom burden, and has even been gaining some weight due to a decrease in her nausea. She shared that she is considering postponing the pancreatectomy until symptoms worsen again. She is planning to discuss this with Dr. Burk. Regarding her pain regimen, she is doing well on the current regimen. She notes no issues or side effects from the medications. They continue to allow her to function in her normal life, including allowing her to work. I have personally reviewed the OARRS report for JULIETH SPENCER. I have considered the risks of abuse, dependence, addiction and diversion. 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) Chronic abdominal pain (789.00,338.29) (R10.9,G89.29) Chronic pancreatitis (577.1) (K86.1) Chronic pancreatitis, unspecified pancreatitis type (577.1) (K86.1) Crohn's disease (555.9) (K50.90) Diarrhea (787.91) (R19.7) DM type 1 (diabetes mellitus, type 1) (250.01) (E10.9) Encounter for pancreatic duct stent exchange (V53.59) (Z46.59) Palliative care encounter (V66.7) (Z51.5) Surgical History Problems History of Cholecystectomy History of Colonoscopy History of Endoscopic retrograde cholangiopancreatography History of Esophagogastroduodenosco py History of Gastrointestinal stent placement Family History Mother No pertinent family history Father No pertinent family history Social History Problems Electronic cigarette use (305.1) (Z78.9) No alcohol use No illicit drug use Allergies Medication Bactrim Recorded By: Gianna Blanchard; 06/29/2021 3:01:33 PM Current Meds Medication NameInstruction busPIRone HCl - 15 MG Oral Tablettake 1 tablet by mouth twice a day Creon [id number] UNIT Oral Capsule Delayed Release ParticlesPlease take 1 capsule by mouth with each meal three times a day Creon [id number] UNIT Oral Capsule Delayed Release ParticlesTAKE 1 CAPSULE 3 TIMES DAILY WITH MEALS BY MOUTH DULoxetine HCl - 60 MG Oral Capsule Delayed Release Particlestake 1 capsule by mouth every morning Gabapentin 600 MG Oral TabletTAKE 1 TABLET BY MOUTH THREE TIMES DAILY Humira Pen 40 MG/0.4ML Subcutaneous Pen-injector KitINJECT ONE PEN EVERY OTHER WEEK HYDROmorphone HCl ER 8 MG Oral Tablet Extended Release 24 HourTAKE 1 TABLET BY MOUTH TWICE DAILY Insulin Lispro 100 UNIT/ML SOLNper insulin pump Loperamide HCl - 2 MG Oral TabletTAKE 2 TABLETS BY MOUTH INITIALLY, FOLLOWED BY 1 TABLET AFTER EACH LOOSE BOWEL MOVEMENT. DO NOT EXCEED 8 TABLETS/DAY. LORazepam 0.5 MG Oral TabletTAKE 1 TABLET BY MOUTH UP TO 2 TIMES A DAY NEEDED Nicotine 21 MG/24HR Transdermal Patch 24 Hourapply 1 patch to CLEAN, DRY, AND INTACT SKIN REMOVE AND REPLACE every 24 hours oxyCODONE HCl - 15 MG Oral TabletTAKE 1 TABLET BY MOUTH Every 4 hours PRN pain Pantoprazole Sodium 40 MG Oral Tablet Delayed Releasetake 1 tablet by mouth once daily Promethazine HCl - 12.5 MG Oral TabletTAKE 1 TABLET BY MOUTH Every 6 hours PRN nausea RA Vitamin D-3 25 MCG (1000 UT) Oral Tablettake 1 tablet by mouth once daily Sucralfate 1 GM Oral TabletTAKE 1 TABLET 4 TIMES DAILY, BEFORE MEALS AND AT BEDTIME BY MOUTH traZODone HCl - 100 MG Oral TabletTAKE 2 TABLETS BY MOUTH AT BEDTIME Future Appointments Date/TimeProviderSpecial tySite 11/23/2022 07:00 Tray Jaramillo MDOncology SurgerySurgery [facility] 12/28/2022 10:00 Ramos Allen MDPalliative CareChagrafshan Minoff Porfirio 3100 DO Time Prep time on date of the patient encounter: 10 minutes. Time spent directly with patient/family/caregiver : 20 minutes. Total time on date of patient encounter: 30 minutes. Signatures Electronically signed by : Ramos Parekh MD; Nov 04 2022 3:51PM EST (Author) Normal [facility] 09-28-2022 Palliative Care Diagnoses/Problems Assessed Palliative care encounter (V66.7) (Z51.5) Chronic pancreatitis (577.1) (K86.1) Chronic abdominal pain (789.00,338.29) (R10.9,G89.29) Crohn's disease (555.9) (K50.90) Orders Chronic pancreatitis Renew: oxyCODONE HCl - 15 MG Oral Tablet; TAKE 1 TABLET BY MOUTH Every 4 hours PRN pain Crohn's disease OPIATE/OPIOID/BENZO [EXTENDED] PRESCRIPTION COMPLIANCE; Status:Active; Requested for:28Sep2022; Patient Discussion/Summary - Doing well overall at this point - New script for oxycodone sent, hydromorphone will be due in early October - Opiate monitoring urine screen ordered today - Will send new CSA to patient via mail today - Will reach out to Dr. Burk to coordinate our efforts surrounding pain control in the perioperative and post-operative period, including our weaning strategy after surgery - Offered band cutter or social work services to help process her anxieties around surgery, she declines at this time - She would like to see me again before surgery, will aim for late October for follow up Chief Complaint An interactive audio and video telecommunication system which permits real time communications between the patient (at the originating site) and provider (at the distant site) was utilized to provide this telehealth service. Verbal consent was requested and obtained from JULIETH SPENCER on this date, 09/28/2022 08:00 AM , for a telehealth visit. Follow up for palliative care History of Present Illness Here today for exam following chronic pancreatitis and associated chronic pain. Patient saw Dr. Burk with general surgery yesterday, and they are planning to proceed with pancreatectomy. She shared that she has some anxiety surrounding this, especially because she finally feels she is in a place where things are going well for her. Between effective pain management, management of her depression, and management of her Crohn's, she feels that her health is in a place where she can function fairly normally, and she worries about losing that in the aftermath of the surgery. We discussed her concerns at length, and I validated and normalized her emotions surrounding this. Regarding her pain regimen, she is doing well on the current regimen. There seem to have been no further issues with insurance approval of her hydromorphone since August. She does need a refill on the oxycodone today. She notes no issues or side effects from the medications. I have personally reviewed the OARRS report for JULIETH SPENCER. I have considered the risks of abuse, dependence, addiction and diversion. 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) Chronic abdominal pain (789.00,338.29) (R10.9,G89.29) Chronic pancreatitis (577.1) (K86.1) Chronic pancreatitis, unspecified pancreatitis type (577.1) (K86.1) Crohn's disease (555.9) (K50.90) Diarrhea (787.91) (R19.7) DM type 1 (diabetes mellitus, type 1) (250.01) (E10.9) Encounter for pancreatic duct stent exchange (V53.59) (Z46.59) Palliative care encounter (V66.7) (Z51.5) Surgical History Problems History of Cholecystectomy History of Colonoscopy History of Endoscopic retrograde cholangiopancreatography History of Esophagogastroduodenosco py History of Gastrointestinal stent placement Family History Mother No pertinent family history Father No pertinent family history Social History Problems Electronic cigarette use (305.1) (Z78.9) No alcohol use No illicit drug use Allergies Medication Bactrim Recorded By: Gianna Blanchard; 06/29/2021 3:01:33 PM Current Meds Medication NameInstruction busPIRone HCl - 15 MG Oral Tablettake 1 tablet by mouth twice a day Creon [id number] UNIT Oral Capsule Delayed Release ParticlesPlease take 1 capsule by mouth with each meal three times a day Creon [id number] UNIT Oral Capsule Delayed Release ParticlesTAKE 1 CAPSULE 3 TIMES DAILY WITH MEALS BY MOUTH DULoxetine HCl - 60 MG Oral Capsule Delayed Release Particlestake 1 capsule by mouth every morning Gabapentin 600 MG Oral TabletTAKE 1 TABLET BY MOUTH THREE TIMES DAILY Humira Pen 40 MG/0.4ML Subcutaneous Pen-injector KitINJECT ONE PEN EVERY OTHER WEEK HYDROmorphone HCl ER 8 MG Oral Tablet Extended Release 24 HourTAKE 1 TABLET BY MOUTH TWICE DAILY Insulin Lispro 100 UNIT/ML SOLNper insulin pump Loperamide HCl - 2 MG Oral TabletTAKE 2 TABLETS BY MOUTH INITIALLY, FOLLOWED BY 1 TABLET AFTER EACH LOOSE BOWEL MOVEMENT. DO NOT EXCEED 8 TABLETS/DAY. LORazepam 0.5 MG Oral TabletTAKE 1 TABLET BY MOUTH UP TO 2 TIMES A DAY NEEDED Nicotine 21 MG/24HR Transdermal Patch 24 Hourapply 1 patch to CLEAN, DRY, AND INTACT SKIN REMOVE AND REPLACE every 24 hours oxyCODONE HCl - 15 MG Oral TabletTAKE 1 TABLET BY MOUTH Every (more content not included)... Normal Touchworks Follow Up (General Surgery)o n 09-27-2022 Follow Up (General Surgery) Orders Autoimmune pancreatitis IgG Subclass 4; Status:Active - Retrospective Authorization; Requested for:27Sep2022; Perform:Lab Services - Lab To Draw (Blood Test); Due:26Dec2022; Last Updated By:Lyubov Zavala; 09/27/2022 1:00:24 PM;Ordered; For:Autoimmune pancreatitis; Ordered By:Tray Burk; Autoimmune pancreatitis, Chronic pancreatitis, DM type 1 (diabetes mellitus, type 1) Complete Blood Count; Status:Active - Retrospective Authorization; Requested for:27Sep2022; Perform:Lab Services - Lab To Draw (Blood Test); Due:26Dec2022; Last Updated By:Lyubov Zavala; 09/27/2022 12:54:36 PM;Ordered; For:Autoimmune pancreatitis, Chronic pancreatitis, DM type 1 (diabetes mellitus, type 1); Ordered By:Tray Burk; Chronic pancreatitis, DM type 1 (diabetes mellitus, type 1) Hemoglobin A1C; Status:Active - Retrospective Authorization; Requested for:27Sep2022; Perform:Lab Services - Lab To Draw (Blood Test); Due:26Dec2022; Last Updated By:Lyubov Zavala; 09/27/2022 12:07:18 PM;Ordered; For:Chronic pancreatitis, DM type 1 (diabetes mellitus, type 1); Ordered By:Tray Burk; Prealbumin, Serum; Status:Active - Retrospective Authorization; Requested for:27Sep2022; Perform:Lab Services - Lab To Draw (Blood Test); Due:26Dec2022; Last Updated By:Lyubov Zavala; 09/27/2022 12:07:18 PM;Ordered; For:Chronic pancreatitis, DM type 1 (diabetes mellitus, type 1); Ordered By:Tray Burk; Provider Impressions This patient suffers from debilitating chronic pancreatitis. She is unable to work because of her symptoms. Her pain is epigastric and radiates to the back consistent with the presentation and diagnosis. Of note she does have a history of Crohn's and takes Humira for that. She is able to distinguish between the 2 syndromes in terms of her symptoms. She is back in consultation and consideration for total pancreatectomy. We would not do an auto islet transplantation because she is currently insulin-dependent type 1 diabetes. After consideration and research, she would like to proceed with surgery. I have told her that I think that there is a good chance that we would be able to help her in terms of her symptoms although cannot guarantee it. We talked about the risks. I explained that the risks of the operations include, but are not limited to, heart attack, stroke, , paralysis, infection, bleeding, hernia, pain, and many others. We also discussed the expected postoperative course. I answered all of her questions to the best my ability. She would like to proceed with surgery sometime in late October or early November. It gives her more time to improve her overall fitness. She is very impressive and her commitment to getting better. I really admire her coverage and her approach. She is dedicated to getting stronger and better nourished and has certainly demonstrated that commitment with her cessation of nicotine. We will get labs today to assess her nutritional status. We are obtaining consent today as well. This note was generated through dictation. Please forgive any typos or errors resulting from the dictation process. Sincerely, Tray Burk MD Chief of Surgical Oncology/[facility] Director of Surgical Services/[facility], [facility] [id number] [address] [place] [id number] Chief Complaint Follow up appt from surgery. This was a 35-minute visit. History of Present IllnessThe patient is known to me. She was referred for evaluation for total pancreatectomy. She has been having pain for 4 years at least related to her pancreas. She has a severely abnormal chronic pancreatitis gland as evidenced by endoscopic ultrasound, MRI and CT scan. She lives in chronic pain including the current week where her pain is 8 out of 10. She believes that her pain is stable and not getting any better. She has been eating a little bit better. Previously, last summer her albumin was over 3.5. It dipped to 2.5 and I told her it was important that she improve her nutrition prior to surgery. She has been drinking 4-5 Ensure shakes a day. She stopped vaping and smoking. She has not had any alcohol for over 2 years. Her weight has been slightly increased which is a good thing. Review of Systems All other systems have been reviewed and are negative for complaint. 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 Normal [employer] Progress Noteson 09-04-2022 Insurance Clerk Authentication Interface Message Text ----- Sunday, September 04, 2022 at 9:52:26 AM ----- ----- Provider: Zach Chapin DDS -- Clinic: [place] [id number] ----- INITIAL/COMPREHENSIVE EXAM Patient presents for an Initial Examination. Reviewed patient's medical history. Patient has a history of: . Chronic pancreatitis, Crohn's disease, Severe GERD, type I diabetes. No contraindications, patient is ready for treatment. Patient's chief complaint: Comp Exam I need some implants Pain Scale: 0/10 Radiographs taken today were: Panorex, 4 Bitewings and 1 PA Clinical Examination reveals: Patient is partially edentulous. However, she is interested in implant supported crowns and bridges. Oh is poor. Generalized plaque deposits observed as well as generalized inflammation. Patient disclosed that she brushes only once a day. No deep pockets or radiographic bone loss observed, patient's periodontal diagnosis is gingivitis and she was scheduled for a regular prophylaxis. Restorative exam was completed and patient has extensive existing restorations , that include bridges and crowns. the following was observed: 1) Non restorable root tips planned for extraction of #11 and #14. 2) Teeth #19 and #31 have failed RCT with active periapical lesions and Muse type II fractures. Restorative and endodontic prognosis is poor, do they were planned for extractions. 3) Caries observed on #29, planned for composite, 4) Margins on abutment teeth #2 and #4 have residual caries and are currently open. Bridge needs to be replaced in its entirety. 5) Patient is interested to have missing teeth replaced through implant dentistry. Explained that bridges, posterior crowns and implants are not covered through patient's current insurance and instructed the patient to apply for financial assistance. Soft tissue evaluation: Within Normal Limits TMJ evaluation: Normal TMJ Completed current status of dentition on the charting. Went over needs and treatment plan options with the patient. OHI were discussed with the patient. Written Instructions/AVS were also handed to the patient. Pt Concern: Full Exam was successfully done. Patient consented to the treatment plan. PRIOR: Not needed Next Visit: Prophy and Restorative Normal [facility] Office Visiton 08-23-2022 Follow-up visit Provider Impressions In summary the patient has clear severe chronic pancreatitis. This was also seen on ultrasound, endoscopic. I do think that a total pancreatectomy would be helpful. The patient has type 1 diabetes and is insulin-dependent so a total pancreatectomy with auto islet is not indicated. She already is insulin-dependent. We discussed our hope with a total pancreatectomy and that I think that there is a 70% chance she will have significant pain relief and reduction in narcotics and potentially get off narcotics completely. That certainly will be the goal and we will wean her over 6 weeks after surgery. We discussed the risks of operation a little bit we will discuss them in greater detail. Her albumin is only 2.5 and she is severely malnourished. I would like to see her in 3 to 4 weeks with the expectation that she will have better nutritional status. She will have Ensure shakes 3/day. She will walk at least once per day with her dog at a 30-minute walk. She will stop vaping. If she demonstrates that high degree of motivation, I think that proceeding with a total pancreatectomy offers a appealing path to improve her quality of life. I do not see any other interventions at this point likely to have much success. The patient is eager to move forward. This note was generated through dictation. Please forgive any typos or errors resulting from the dictation process. Sincerely, Tray Burk MD Chief of Surgical Oncology/[facility] Director of Surgical Services/[facility] [place] office, [facility]., [id number] [place] [address] Chief Complaint Chronic pancreatitis. 60 minute visit. Referred by by Ebony Lee. History of Present IllnessThe patient is a 36-year-old whose had a 4-year history of severe chronic pancreatitis. She is had numerous ERCP and stent placements. She now has debilitating pain daily. Her pain level is 6 out of 10 and escalates to 9 or 10 out of 10 every single night or every other night. She is losing a lot of weight, and is lost 50 pounds over the past 2 or 3 years. She really is eager to have a definitive therapy such as resection in order to improve her symptoms if we think that we will help her. Her pancreatitis etiology was originally alcohol related. She does not drink anymore except sparingly and at very little amounts. She does take oxycodone 50 mg every 4 hours. She does not smoke but she does vape. She no longer works. Most recently a bile duct stent was removed and she is not jaundiced. She also suffers from Crohn's disease and takes Humira. Review of Systems All other systems have been reviewed and are negative for complaint. 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) Chronic abdominal pain (789.00,338.29) (R10.9,G89.29) Chronic pancreatitis (577.1) (K86.1) Chronic pancreatitis, unspecified pancreatitis type (577.1) (K86.1) Crohn's disease (555.9) (K50.90) Diarrhea (787.91) (R19.7) DM type 1 (diabetes mellitus, type 1) (250.01) (E10.9) Encounter for pancreatic duct stent exchange (V53.59) (Z46.59) Palliative care encounter (V66.7) (Z51.5) Surgical History History of Cholecystectomy History of Colonoscopy History of Endoscopic retrograde cholangiopancreatography History of Esophagogastroduodenosco py History of Gastrointestinal stent placement Social History Electronic cigarette use (305.1) (Z78.9) No alcohol use No illicit drug use Allergies Bactrim Recorded By: Gianna Blanchard; 06/29/2021 3:01:33 PM Current Meds Medication NameInstruction busPIRone HCl - 15 MG Oral Tablettake 1 tablet by mouth twice a day Creon [id number] UNIT Oral Capsule Delayed Release ParticlesPlease take 1 capsule by mouth with each meal three times a day Creon [id number] UNIT Oral Capsule Delayed Release ParticlesTAKE 1 CAPSULE 3 TIMES DAILY WITH MEALS BY MOUTH DULoxetine HCl - 60 MG Oral Capsule Delayed Release Particlestake 1 capsule by mouth every morning Gabapentin 600 MG Oral TabletTAKE 1 TABLET BY MOUTH THREE TIMES DAILY Humira 40 MG/0.8ML Subcutaneous Prefilled Syringe Kit Humira Pen 40 MG/0.4ML Subcutaneous Pen-injector KitINJECT ONE PEN EVERY OTHER WEEK HYDROmorphone HCl ER 8 MG Oral Tablet Extended Release 24 HourTAKE 1 TABLET BY MOUTH TWICE DAILY Insulin Lispro 100 UNIT/ML SOLNper insulin pump Loperamide HCl - 2 MG Oral TabletTAKE 2 TABLETS BY MOUTH INITIALLY, FOLLOWED BY 1 TABLET AFTER EACH LOOSE BOWEL MOVEMENT. DO NOT EXCEED 8 TABLETS/DAY. LORazepam 0.5 MG Oral TabletTAKE 1 TABLET BY MOUTH UP TO 2 TIMES A DAY NEEDED oxyCODONE HCl - 15 MG Oral TabletTAKE 1 TABLET BY MOUTH Every 4 hours PRN pain Pantoprazole Sodium 40 MG Oral Tablet Delayed Releasetake 1 tablet by mouth once daily Promethazine HCl - 12.5 MG Oral TabletTAKE 1 TABLET BY MOUTH Every 6 lety (more content not included)... Normal Touchworks Complete Blood Count + Diffe rentialon 08-15-2022 Basophils/100 WBC (Bld) 0.0 % 0.0 - 2.0 [facility] Work Phone: Erythrocyte distribution width (RBC) [Ratio] 15.4 % above high threshold See Below [facility] Work Phone: Comment on above: Reference Range: 11. 5 - 14.5 Hematocrit (Bld) [Volume fraction] 32.0 % below low threshold See Below [facility] Work Phone: Comment on above: Reference Range: 36. 0 - 46.0 Hemoglobin (Bld) [Mass/Vol] 10.7 g/dL below low threshold See Below [facility] Work Phone: Comment on above: Reference Range: 12. 0 - 16.0 Lymphocytes/100 WBC (Bld) 24.2 % See Below [facility] Work Phone: [phone] Comment on above: Reference Range: 13. 0 - 44.0 MCHC (RBC) [Mass/Vol] 33.4 g/dL See Below [facility] Work Phone: [phone] Comment on above: Reference Range: 32. 0 - 36.0 MCV (RBC) [Entitic vol] 85 fL 80 - 100 [facility] Work Phone: [phone] Monocytes/100 WBC (Bld) 2.6 % 2.0 - 10.0 [facility] Work Phone: [phone] Neutrophils/100 WBC (Bld) 72.8 % See Below [facility] Work Phone: [phone] Comment on above: Reference Range: 40. 0 - 80.0 Platelets (Bld) [#/Vol] 232 10*3/uL 150 - 450 [facility] Work Phone: [phone] RBC (Bld) [#/Vol] 3.76 {x10E12/L} below low threshold See Below [facility] Work Phone: [phone] Comment on above: Reference Range: 4.0 0 - 5.20 WBC (Bld) [#/Vol] 5.3 10*3/uL 4.4 - 11.3 [facility] Work Phone: [phone] Complete Blood Count + Differential 0.00 {x10E9/L} See Below [facility] Work Phone: [phone] Comment on above: Reference Range: 0.0 0 - 0.10 Complete Blood Count + Differential 0.01 {x10E9/L} See Below [facility] Work Phone: [phone] Comment on above: Reference Range: 0.0 0 - 0.70 Complete Blood Count + Differential 0.14 {x10E9/L} See Below [facility] Work Phone: [phone] Comment on above: Reference Range: 0.1 0 - 1.00 Complete Blood Count + Differential 1.29 {x10E9/L} See Below [facility] Work Phone: [phone] Comment on above: Reference Range: 1.2 0 - 4.80 Complete Blood Count + Differential 3.87 {x10E9/L} See Below [facility] Work Phone: Comment on above: Reference Range: 1.2 0 - 7.70 Complete Blood Count + Differential 0.2 % 0.0 - 0.9 [facility] Work Phone: Comment on above: Immature Granulocyte Count (IG) includes promyelocytes, myelocytes and metamyelocytes but does not include bands. Percent differential counts (%) should be interpreted in the context of the absolute cell counts (cells/L). Complete Blood Count + Differential 0.0 {/100_WBC} 0.0-0.0 [facility] Work Phone: Coronavirus 2019 RNA by PCR, Symptomaticon 08-15-2022 Coronavirus 2019 RNA by PCR, Symptomatic Not detected Normal See Below [facility] Work Phone: Comment on above: SOURCE: Nasal, Nasop haryngealReference Range: Not Detected.This test has received FDA Emergency Use Authorization (EUA) and has been verified by [facility] ([facility]). This test is only authorized for the duration of time that circumstances exist to justify the authorization of the emergency use of in vitro diagnostic tests for the detection of SARS-CoV-2 virus and/or diagnosis of COVID-19 infection under section 564(b)(1) of the Act, 21 U.S.C. 360bbb-3(b)(1), unless the authorization is terminated or revoked sooner. [facility] is certified under CLIA-88 as qualified to perform high complexity testing. Testing is performed in the [facility] located at [address] [place] [address].SARS-CoV-2/Flu/RSV Multiplex Test: Fact sheet for providers: https://www.fda.gov/media/996280/downloadFact sheet for patients: https://www.fda.gov/media/140283/download Laboratory - Chemistry and C hemistry - challengeon 08-15-2022 Albumin BCP dye [Mass/Vol] 2.5 g/dL below low threshold 3.4 - 5.0 [facility] Work Phone: ALP [Catalytic activity/Vol] 127 U/L above high threshold 33 - 110 [facility] Work Phone: [phone] ALT With P-5'-P [Catalytic activity/Vol] 55 U/L above high threshold 7 - 45 [facility] Work Phone: [phone] Comment on above: Patients treated wit h Sulfasalazine may generate falsely decreased results for ALT. Anion gap [Moles/Vol] 10 mmol/L 10 - 20 [facility] Work Phone: [phone] AST With P-5'-P [Catalytic activity/Vol] 119 U/L above high threshold 9 - 39 [facility] Work Phone: [phone] Bilirubin [Mass/Vol] 0.5 mg/dL 0.0 - 1.2 [facility] Work Phone: [phone] Calcium [Mass/Vol] 6.0 mg/dL below low threshold 8.6 - 10.6 [facility] Work Phone: [phone] Chloride [Moles/Vol] 114 mmol/L above high threshold 98 - 107 [facility] Work Phone: [phone] CO2 [Moles/Vol] 18 mmol/L below low threshold 21 - 32 [facility] Work Phone: [phone] Creatinine [Mass/Vol] 0.54 mg/dL See Below [facility] Work Phone: [phone] Comment on above: Reference Range: 0.5 0 - 1.05 Glucose [Mass/Vol] 143 mg/dL above high threshold 74 - 99 [facility] Work Phone: Potassium [Moles/Vol] 3.1 mmol/L below low threshold 3.5 - 5.3 [facility] Work Phone: Protein [Mass/Vol] 4.6 g/dL below low threshold 6.4 - 8.2 [facility] Work Phone: Sodium [Moles/Vol] 139 mmol/L 136 - 145 [facility] Work Phone: [phone] Urea nitrogen [Mass/Vol] 14 mg/dL 6 - 23 [facility] Work Phone: Lactate, Levelon 08-15-2022 Lactate [Moles/Vol] 1.1 mmol/L 0.4 - 2.0 [facility] Work Phone: Comment on above: Venipuncture immedia tely after or during the administration of Metamizole may lead to falsely low results. Testing should be performed immediately prior to Metamizole dosing. Lipase, Serumon 08-15-2022 Lipase [Catalytic activity/Vol] U/L Abnormal 9 - 82 [facility] Work Phone: Comment on above: Venipuncture immedia tely after or during the administration of Metamizole may lead to falsely low results. Testing should be performed immediately prior to Metamizole dosing. W-rqcwdk-e-benzoquinone imine (metabolite of Acetaminophen) will generate erroneously low results in samples for patients that have taken toxic doses of acetaminophen. No Panel Informationon 08-15 >90 >90 [facility] Work Phone: Comment on above: CALCULATIONS OF LEIDY MATED GFR ARE PERFORMED USING THE 2020 CKD-EPI STUDY REFIT EQUATION WITHOUT THE RACE VARIABLE FOR THE IDMS-TRACEABLE CREATININE METHODS.https://jasn.asnjournals.org/content// N.4794290964 Laboratory - Chemistry and C hemistry - challengeon 08-14-2022 Anion gap 4 (BldV) [Moles/Vol] 11 mmol/L 10 - 25 [facility] Work Phone: Base excess Calc (BldV) [Moles/Vol] -2.6000 mmol/L below low threshold -2.0 - 3.0 [facility] Work Phone: Calcium.ionized (BldV) [Moles/Vol] 1.14 mmol/L See Below [facility] Work Phone: Comment on above: Reference Range: 1.1 0 - 1.33 Chloride (BldV) [Moles/Vol] 104 mmol/L 98 - 107 [facility] Work Phone: CO2 (BldV) [Partial pressure] 43 mm[Hg] 41 - 51 [facility] Work Phone: Glucose [Mass/Vol] 173 mg/dL above high threshold 74 - 99 [facility] Work Phone: HCO3 (Bld) [Moles/Vol] 23.2 mmol/L See Below [facility] Work Phone: Comment on above: Reference Range: 22. 0 - 26.0 Lactate (BldV) [Moles/Vol] 0.9 mmol/L 0.4 - 2.0 [facility] Work Phone: Oxygen (BldV) [Partial pressure] 29 mm[Hg] below low threshold 35 - 45 [facility] Work Phone: Oxyhemoglobin (BldV) [Mass fraction] 49.4 % See Below [facility] Work Phone: Comment on above: Reference Range: 45. 0 - 75.0 pH (BldV) 7.34 [pH] See Below [facility] Work Phone: Comment on above: Reference Range: 7.3 3 - 7.43 Potassium (BldV) [Moles/Vol] 3.8 mmol/L 3.5 - 5.3 [facility] Work Phone: Sodium (BldV) [Moles/Vol] 134 mmol/L below low threshold 136 - 145 [facility] Work Phone: Laboratory - Hematology and Cell countson 08-14-2022 Hematocrit Est (Bld) [Volume fraction] 34.0 % below low threshold See Below [facility] Work Phone: Comment on above: Reference Range: 36. 0 - 46.0 Hemoglobin (Bld) [Mass/Vol] 11.3 g/dL below low threshold See Below [facility] Work Phone: Comment on above: Reference Range: 12. 0 - 16.0 No Panel Informationon 08-14 Please click on the link to view the study images Normal [facility] Work Phone: [email or web address] [facility] Work Phone: [facility] Work Phone: Vital signson 08-14-2022 Oxygen saturation in Venous blood 51 % 45 - 75 [facility] Work Phone: Palliative Careon 07-27-2022 Palliative Care Diagnoses/Problems Assessed Palliative care encounter (V66.7) (Z51.5) Chronic pancreatitis (577.1) (K86.1) Chronic abdominal pain (789.00,338.29) (R10.9,G89.29) Orders Chronic abdominal pain, Chronic pancreatitis Renew: HYDROmorphone HCl ER 8 MG Oral Tablet Extended Release 24 Hour; TAKE 1 TABLET BY MOUTH TWICE DAILY Patient Discussion/Summary - Not doing well, considering heading to the ED - If she is admitted, will be happy to see her and help manage her pain regimen - She is planning to move forward with pancreatectomy, awaiting an initial meeting with the surgeon - Though I anticipate an increase in pain during the perioperative period, and she would like her surgeons to have me involved in that if possible, she and I are optimistic that this step may allow her to wean off opiates entirely - Renew hydromorphone ER today - Follow up in 4 weeks to re-assess Chief Complaint An interactive audio and video telecommunication system which permits real time communications between the patient (at the originating site) and provider (at the distant site) was utilized to provide this telehealth service. Verbal consent was requested and obtained from JULIETH SPENCER on this date, 07/27/2022 08:30 AM , for a telehealth visit. It's a check-up on how I am doing with the new medications he started, Hydromorphone and the Oxycodone. History of Present Illness Ms. Julieth Spencer is not doing well. Having a rough day today and yesterday. Has been having a flare up of pancreatitis and ?everything? is worse. Currently unable to eat. She was unable to sleep last night. States that if she gets any worse she will have to go to the hospital. She could not refill her oxycodone ER due to insurance issues and has been using hydromorphone instead. Denies side effects from her medications. She thinks it is time to have her stent removed. I have personally reviewed the OARRS report for JULIETH SPENCER. I have considered the risks of abuse, dependence, addiction and diversion. 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) Chronic abdominal pain (789.00,338.29) (R10.9,G89.29) Chronic pancreatitis (577.1) (K86.1) Chronic pancreatitis, unspecified pancreatitis type (577.1) (K86.1) Crohn's disease (555.9) (K50.90) Diarrhea (787.91) (R19.7) DM type 1 (diabetes mellitus, type 1) (250.01) (E10.9) Encounter for pancreatic duct stent exchange (V53.59) (Z46.59) Palliative care encounter (V66.7) (Z51.5) Surgical History Problems History of Cholecystectomy History of Colonoscopy History of Endoscopic retrograde cholangiopancreatography History of Esophagogastroduodenosco py History of Gastrointestinal stent placement Family History Mother No pertinent family history Father No pertinent family history Social History Problems Electronic cigarette use (305.1) (Z78.9) No alcohol use No illicit drug use Allergies Medication Bactrim Recorded By: Gianna Blanchard; 06/29/2021 3:01:33 PM Current Meds Medication NameInstruction busPIRone HCl - 15 MG Oral Tablettake 1 tablet by mouth twice a day Creon [address]6099-11120 UNIT Oral Capsule Delayed Release ParticlesPlease take 1 capsule by mouth with each meal three times a day Creon 65895-726154 UNIT Oral Capsule Delayed Release ParticlesTAKE 1 CAPSULE 3 TIMES DAILY WITH MEALS BY MOUTH DULoxetine HCl - 60 MG Oral Capsule Delayed Release Particlestake 1 capsule by mouth every morning Gabapentin 600 MG Oral TabletTAKE 1 TABLET BY MOUTH THREE TIMES DAILY Gabapentin 800 MG Oral TabletTAKE 1 TABLET 3 TIMES DAILY. Humira Pen 40 MG/0.4ML Subcutaneous Pen-injector KitINJECT ONE PEN EVERY OTHER WEEK HYDROmorphone HCl ER 8 MG Oral Tablet Extended Release 24 HourTake 1 tablet twice daily Insulin Lispro 100 UNIT/ML SOLNper insulin pump Loperamide HCl - 2 MG Oral TabletTAKE 2 TABLETS BY MOUTH INITIALLY, FOLLOWED BY 1 TABLET AFTER EACH LOOSE BOWEL MOVEMENT. DO NOT EXCEED 8 TABLETS/DAY. LORazepam 0.5 MG Oral TabletTAKE 1 TABLET BY MOUTH UP TO 2 TIMES A DAY NEEDED oxyCODONE HCl - 15 MG Oral TabletTAKE 1 TABLET BY MOUTH Every 4 hours PRN pain Pantoprazole Sodium 40 MG Oral Tablet Delayed Releasetake 1 tablet by mouth once daily Promethazine HCl - 12.5 MG Oral TabletTAKE 1 TABLET BY MOUTH Every 6 hours PRN nausea RA Vitamin D-3 25 MCG (1000 UT) Oral Tablettake 1 tablet by mouth once daily Sucralfate 1 GM Oral TabletTAKE 1 TABLET 4 TIMES DAILY, BEFORE MEALS AND AT BEDTIME BY MOUTH traZODone HCl - 100 MG Oral TabletTAKE 2 TABLETS BY MOUTH AT BEDTIME Future Appointments Date/TimeProviderSpecial tySite 09/28/2022 08:00 Ramos Allen, RODRIGOalliatyan CareChagrafshan Minoff Porfirio 3100 DO Signatures Electronically signed by : Ramos Parekh MD; Jul 27 2022 10:20PM EST (Author) Normal [facility] 07-06-2022 Palliative Care Diagnoses/Problems Assessed Palliative care encounter (V66.7) (Z51.5) Chronic pancreatitis (577.1) (K86.1) Chronic abdominal pain (789.00,338.29) (R10.9,G89.29) Orders Chronic abdominal pain, Chronic pancreatitis Start: HYDROmorphone HCl ER 8 MG Oral Tablet Extended Release 24 Hour; Take 1 tablet twice daily Chronic pancreatitis Renew: oxyCODONE HCl - 15 MG Oral Tablet; TAKE 1 TABLET Every 4 hours PRN pain Patient Discussion/Summary - Trial of long-acting hydromorphone baseline today, based on current usage, will start hydromorphone ER 8 mg twice daily - She is planning to move forward with pancreatectomy - Though I anticipate an increase in pain during the perioperative period, and she would like her surgeons to have me involved in that if possible, she and I are optimistic that this step may allow her to wean off opiates entirely - Follow up in 2 to 4 weeks to assess efficacy of regimen and titrate if needed Chief Complaint An interactive audio and video telecommunication system which permits real time communications between the patient (at the originating site) and provider (at the distant site) was utilized to provide this telehealth service. Verbal consent was requested and obtained from JULIETH SPENCER on this date, 07/06/2022 08:00 AM , for a telehealth visit. follow up for palliative care History of Present Illness Patient seen for exam following chronic pain related to chronic pancreatitis. Patient has reflected on our discussion last time and is interested in a trial of a combination of long-acting and short-acting opiate therapy. She is still considering the partial pancreatectomy option. I have personally reviewed the OARRS report for JULIETH SPENCER. I have considered the risks of abuse, dependence, addiction and diversion. 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) Chronic abdominal pain (789.00,338.29) (R10.9,G89.29) Chronic pancreatitis (577.1) (K86.1) Chronic pancreatitis, unspecified pancreatitis type (577.1) (K86.1) Crohn's disease (555.9) (K50.90) Diarrhea (787.91) (R19.7) DM type 1 (diabetes mellitus, type 1) (250.01) (E10.9) Encounter for pancreatic duct stent exchange (V53.59) (Z46.59) Palliative care encounter (V66.7) (Z51.5) Surgical History Problems History of Cholecystectomy History of Colonoscopy History of Endoscopic retrograde cholangiopancreatography History of Esophagogastroduodenosco py History of Gastrointestinal stent placement Family History Mother No pertinent family history Father No pertinent family history Social History Problems Electronic cigarette use (305.1) (Z78.9) No alcohol use No illicit drug use Allergies Medication Bactrim Recorded By: Gianna Blanchard; 06/29/2021 3:01:33 PM Current Meds Medication NameInstruction busPIRone HCl - 15 MG Oral Tablettake 1 tablet by mouth twice a day Creon 62699-78203 UNIT Oral Capsule Delayed Release ParticlesPlease take 1 capsule with each meal three times a day Creon 11934-637325 UNIT Oral Capsule Delayed Release ParticlesTAKE 1 CAPSULE 3 TIMES DAILY WITH MEALS BY MOUTH DULoxetine HCl - 60 MG Oral Capsule Delayed Release Particlestake 1 capsule by mouth every morning Gabapentin 800 MG Oral TabletTAKE 1 TABLET 3 TIMES DAILY. Humira Pen 40 MG/0.4ML Subcutaneous Pen-injector KitINJECT ONE PEN EVERY OTHER WEEK HYDROmorphone HCl - 2 MG Oral TabletTAKE 1 TABLET Every 4 hours PRN pain Insulin Lispro 100 UNIT/ML SOLNper insulin pump Loperamide HCl - 2 MG Oral TabletTAKE 2 TABLETS INITIALLY, FOLLOWED BY 1 TABLET AFTER EACH LOOSE BOWEL MOVEMENT. DO NOT EXCEED 8 TABLETS/DAY. Pantoprazole Sodium 40 MG Oral Tablet Delayed Releasetake 1 tablet by mouth once daily Promethazine HCl - 12.5 MG Oral TabletTAKE 1 TABLET Every 6 hours PRN nausea RA Vitamin D-3 25 MCG (1000 UT) Oral Tablettake 1 tablet by mouth once daily Sucralfate 1 GM Oral TabletTAKE 1 TABLET 4 TIMES DAILY, BEFORE MEALS AND AT BEDTIME BY MOUTH traZODone HCl - 100 MG Oral TabletTAKE 2 TABLETS BY MOUTH AT BEDTIME Future Appointments Date/TimeProviderSpecial tySite 07/27/2022 08:30 Ramos Allen MDPalliative CareChagrin Minoff Porfirio 3100 DO 07/27/2022 09:30 Ramos Allen MDPalliative CareChagrafshan Minoff Porfirio 3100 DO Signatures Electronically signed by : Ramos Parekh MD; Jul 24 2022 12:53PM EST (Author) Normal [facility] Palliative Careon 06-22-2022 Palliative Care Diagnoses/Problems Assessed Palliative care encounter (V66.7) (Z51.5) Chronic pancreatitis (577.1) (K86.1) Crohn's disease (555.9) (K50.90) Chronic abdominal pain (789.00,338.29) (R10.9,G89.29) Orders Chronic pancreatitis Start: HYDROmorphone HCl - 2 MG Oral Tablet; TAKE 1 TABLET Every 4 hours PRN pain Patient Discussion/Summary - Given lack of response to increase in oxycodone dosing, we discussed alternate strategies today, including addition of a long-acting agent (oxy ER, methadone), addition of fentanyl or buprenorphine via patch, or titration of her duloxetine or gabapentin, or the possibility of a switch to an alternate agent - After extensive discussion, patient would like to opt for a trial of rotation of opiate. She has had good success with hydromorphone IV in the past and would like to try oral hydromorphone - Will send new script to pharmacy for hydromorphone 2 mg oral every 4 hours PRN pain - She is planning to move forward with pancreatectomy - Though I anticipate an increase in pain during the perioperative period, and she would like her surgeons to have me involved in that if possible, she and I are optimistic that this step may allow her to wean off opiates entirely - Follow up in 2 weeks to assess efficacy of hydromorphone and titrate if needed Chief Complaint An interactive audio and video telecommunication system which permits real time communications between the patient (at the originating site) and provider (at the distant site) was utilized to provide this telehealth service. Palliative care follow up for chronic pancreatitis pain management History of Present Illness Patient seen for exam following chronic pain related to chronic pancreatitis. She feels the pain has worsened somewhat since last visit, especially after a stay at [facility] during which time they replaced the stent in her common bile duct. She shared that she was absolutely appalled at the treatment she received at the Clinic, and was distressed at their unwillingness to coordinate care with her outpatient providers in another system (including myself). She plans to keep all of her care in our system in the future. She continues to contemplate surgical removal of her pancreas, and she hopes that such a procedure, should it ever come to pass, would decrease or eliminate her pain in the long run, and hopefully allow her to discontinue pain medications in the future. She shared that she is concerned whether oxycodone works well for her. She shared that she used to get relief from use of low amounts of Vicodin or Percocet. We discussed the ways in which pain can evolve over time. I also asked if she still takes acetaminophen, which she tends to alternate with doses of ibuprofen. We discussed some of the other modalities that she uses, including massage, which do help somewhat. We discussed that individuals can have varying responses to pain medications, and we discussed that the addition of a long-acting medication might also give her more consistent relief. I have personally reviewed the OARRS report for JULIETH SPENCER. I have considered the risks of abuse, dependence, addiction and diversion. 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) Chronic pancreatitis (577.1) (K86.1) Chronic pancreatitis, unspecified pancreatitis type (577.1) (K86.1) Crohn's disease (555.9) (K50.90) Diarrhea (787.91) (R19.7) DM type 1 (diabetes mellitus, type 1) (250.01) (E10.9) Encounter for pancreatic duct stent exchange (V53.59) (Z46.59) Palliative care encounter (V66.7) (Z51.5) Surgical History Problems History of Cholecystectomy History of Colonoscopy History of Endoscopic retrograde cholangiopancreatography History of Esophagogastroduodenosco py History of Gastrointestinal stent placement Family History Mother No pertinent family history Father No pertinent family history Social History Problems Electronic cigarette use (305.1) (Z78.9) No alcohol use No illicit drug use Allergies Medication Bactrim Recorded By: Gianna Blanchard; 06/29/2021 3:01:33 PM Current Meds Medication NameInstruction busPIRone HCl - 15 MG Oral Tablettake 1 tablet by mouth twice a day Creon 53195-41915 UNIT Oral Capsule Delayed Release ParticlesPlease take 1 capsule with each meal three times a day Creon 28913-493153 UNIT Oral Capsule Delayed Release ParticlesTAKE 1 CAPSULE 3 times daily With meals DULoxetine HCl - 60 MG Oral Capsule Delayed Release Particlestake 1 capsule by mouth every morning Gabapentin 800 MG Oral TabletTAKE 1 TABLET 3 TIMES DAILY. Humira Pen 40 MG/0.4ML Subcutaneous Pen-injector KitINJECT ONE PEN EVERY OTHER WEEK Insulin Lispro 100 UNIT/ML SOLNper insulin pump Loperamide HCl - 2 MG Or (more content not included)... Normal [facility] CNDSon 06-14-2022 CNDS HNO ID: [id number] Author: Caro Jackson MD Service: Hospital Medicine Author Type: Physician Type: Discharge Summary Filed: 06/14/2022 1:45 PM Note Text: DISCHARGE SUMMARY PATIENT NAME: Julieth Spencer Code Status: Not on file Highest Readmission Risk Score: 16 The 30 day readmissions risk score is derived from an internally validated risk model which evaluates patient level characteristics, utilization history, medication orders and lab results up until the day of discharge. Patients with a score of 40 or above are considered highest risk for readmission. Specific patient level drivers will be listed at the bottom of the summary. Admission Information Admission Information ADMIT DATE: 06/06/2022 DISCHARGE DATE: 06/14/2022 MY DOCTORS AND MEDICAL TEAM: My Main Hospital Doctor: Caro Jackson MD Primary Care Provider: Nat Medina DO My Medical Team Members: Treatment Team: Attending Provider: Caro Jackson MD Primary Service: [place] [id number] Consulting: Vicky Whaley MD MY CONDITION AT DISCHARGE: Improved REASON I WAS IN THE HOSPITAL: acute on chronic pancreatitis SUMMARY OF WHAT HAPPENED WHILE I WAS IN THE HOSPITAL: you were admitted with abdominal pain due to acute on chronic pancreatitis you had ERCP with biopsy on 06/06 and was admitted for pain control. You received narcotics and improved. You reported bone pain in your pelvis and a pelvis X ray was negative. Your pain improved. You will follow up outpatient with GI. OTHER PROBLEMS/DIAGNOSIS: Principal Problem: S/P ERCP Active Problems: Crohn disease (HCC) Depression Anxiety Type 1 diabetes mellitus without complication (HCC) Chronic pancreatitis (HCC) GERD (gastroesophageal reflux disease) Nicotine use disorder, F17.2 Malnutrition of moderate degree (HCC) Chronic calcific pancreatitis (HCC) Resolved Problems: Acute on chronic pancreatitis (HCC) OPERATIONS PERFORMED WHILE IN THE HOSPITAL: None IMPORTANT TEST/PROCEDURES: No procedures performed TEST RESULTS NOT AVAILABLE AT THIS TIME: No pending results Discharge Disposition Discharge Disposition: Home With Self Care Follow Up Appointments Follow-Up Appointment When: In 1 week Patient/Parents to call for appointment?: Yes Nat Medina DO [phone] [facility] [address] PCP Requested Referral Additional Provider to Provider Information: 36-year-old with history of autoimmune pancreatitis s/p cholecystectomy, ERCPs, EUS, now being considered for total pancreatectomy, type 1 diabetes (on an insulin pump), Crohn's disease on Humira, tobacco use disorder, chronic pain. She follows with Dr. Guillen and Dr. Whaley as an outpatient. She underwent an ERCP with biopsy and was admitted for pain control postprocedure. Acute on chronic abdominal pain secondary to known autoimmune pancreatitis. Lipase normal. S/p ERCP with biopsy on 06/06/2022. CT scan pancreas on 06/08 with mild peripancreatic stranding concerning for an acute component of her chronic pancreatitis - Previously on full liquid, has been made n.p.o. again today by GI -Continue fluids for now -Diet advanced as tolerated. Pt tolerated regular diet. -Continue home oxycodone 15 mg every 4 hours as needed with some IV Dilaudid for breakthrough pain -Continue Cymbalta and gabapentin as adjuncts Increased dilaudid to 1mg every 6 hours Tolerating regular diet today Stopping dilaudid on 06/13 Pt discharged with greatly improved pain Type 1 diabetes: Continue insulin pump which patient is managing Moderate protein calorie malnutrition Follow for diet advancement Crohn's disease: On Humira as an outpatient Tobacco use disorder: Continue nicotine patch Depression/anxiety: Continue BuSpar, Cymbalta and trazodone GERD: Continue home Carafate and Protonix Treatment Team: Attending Provider: Caro Jackson MD Primary Service: [facility] 3 Consulting: Vicky Whaley MD Transitions of Care Critical Issues: SPECIALIST FOLLOW-UP: GI LABS AND PROCEDURES PENDING AT DISCHARGE: No pending results. INCIDENTAL OR ACTIONABLE FINDING (Last Refresh: 06/14/2022 1:42 PM) Test(s): CT PANCREAS W IVCON FOLLOW-UP APPOINTMENTS ALREADY SCHEDULED WITH A [facility] PROVIDER: No future appointments. ALLERGIES Allergen Reactions Bactrim [Sulfametho* Rash Morphine Other: See Comments Visual hallucinations DISCHARGE MEDICATION: Current Discharge Medication List CONTINUE these medications which have CHANGED CREON 2 capsules Take 2 capsules by mouth three times daily before meals. CONTINUE these medications which have NOT CHANGED DULoxetine (CYMBALTA) 60 mg Take 60 mg by mouth once daily. gabapentin (NEURONTIN) 800 mg Take 800 mg by mouth three times daily. pantoprazole DR (PROTONIX) 40 mg Take 40 mg by mouth once daily. sucralfate (CARAFATE) 1 g Take 1 g by mouth four times daily. promethazine ( (more content not included)... 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 Guillen in consultation (need for pancreatectomy?) Who requested that Dr. Juan perform EUS, pancreatic biopsy, ERCP with sphincterotomy and stent. --06/06/22 ERCP/EUS> prior biliary sphincterotomy; 10 Fr biliary stent placed, superior portion of papilla bx --06/08 CT pancreas > acute on chronic pancreatitis --Path > Neg w no increase of IgG4 plasma cells --Admitted at [facility] with acute episode of pancreatitis likely exacerbated by ERCP/EUS day prior to admission -- Initial etiology of pancreatitis is unclear. Although question whether may be autoimmune (mckenzie given hx IBD), pathology from ERCP 06/06/2022 was negative for IgG4 plasma cell increase --LFT WNL --Creon 36 -2 capsules TID with meals AND Creon 12- (1) capsule w snacks --Low fat diet --Repeat ERCP in [address] Whaley > with stent exchange AND possible extension of sphincterotomy + repeat EUS with possible pancreatic biopsy (Message was sent to office). Diarrhea w reported small rectal bleeding in setting of patient with Crohn's disease --Diarrhea improved off laxatives and on Creon --Discussed w pt low fat diet --Continue Creon Crohn's disease - stable, no exacerbation --On Humira but none x1 month (due to specialty pharmacy delivery issues) --Last colonoscopy in January in [place] (records not found in [facility]) --Resume usual Humira at discharge. --No plan to repeat colonoscopy at this point in time OK to discharge from GI standpoint and follow-up with Dr. Whaley/Stefanie Solorzano CNP as noted above. (Patient was previously following GI in [place] for Crohn's as well as GI at for pancreatitis but plans to consolidate with our practice.) SUBJECTIVE INTERVAL HPI: Anticipating discharge today. No BM today, diarrhea improved. Some upper abd pain but not much. OBJECTIVE BP 103/62 Pulse 78 Temp (Src) 97.5 (Oral) Resp 18 Ht 5' 3 (1.60m) Wt 100 lb (45.4kg) SpO2 98% LMP 01/11/2019 BMI 17.72 kg/(m2). O2 Therapy: Room Air PHYSICAL EXAM: GENERAL: in NAD SKIN: Skin warm, dry, pale pink NEURO: Alert, Oriented x 3 ABDOMEN: Soft, non-distended, min tender LUQ DATA: Diagnostic tests reviewed for today's visit: CBC, Coags, BMP, Mg, Phos Recent Labs 06/13/22 1051 WBC 5.95 HB 10.8* HCT 33.3* PLT 204 Liver Function, Amylase, AND Lipase SIGNATURE: Nidhi Umanzor APRN.CAST IRON DRAIN PIPE LAYER DATE: June 14, 2022 TIME: 12:02 PM Office [facility] NURSING PROGon 06-14-2022 NURSING PROG HNO ID: [id number] Author: Torito Juárez RN Service: ? Author Type: Registered Nurse Type: Nursing Progress Note Filed: 06/14/2022 2:08 PM Note Text: Other: d/c instructions and meds reviewed with pt who verbalized understanding. IVcap removed. Pt d/cd via ambulation with belongings. [facility] NURSING PROG HNO ID: [id number] Author: RT Darren(R) Service: Radiology Author Type: Technologist Type: Nursing Progress Note Filed: 06/14/2022 12:06 PM Note Text: Radiology Service Progress Note PATIENT NAME: Julieth Spencer DATE OF SERVICE: June 14, 2022 TIME: 12:06 PM PATIENT IDENTITY VERIFICATION COMPLETED USING TWO (2) IDENTIFIERS: Name and Date of confirmed by patient verbally. FALL SCREENING: Has the patient had 2 falls in the last year or 1 fall with injury or currently using an Ambulatory Assistive Device (Walker, Cane, Wheelchair, Crutches, etc.)? Inpatient: Screened on floor PATIENT GENDER DATA: Female. status: : No status: NO. PATIENT RELEVANT IMPLANT DATA REVIEWED: Yes RADIOLOGY DEPARTMENT: General X-ray: Exam(s) Completed: Pelvis X-Ray: Pelvis General AP PERIPHERAL IV DATA: Not applicable SIGNED BY: Ally Everett, (R) June 14, 2022 12:06 PM [facility] NURSING PROG HNO ID: [id number] Author: Cathy Carter RN Service: ? Author Type: Registered Nurse Type: Nursing Progress Note Filed: 06/14/2022 12:46 PM Note Text: Other: 1105: Assumed care of pt. Safety maintained. 1220: Pt assessment as charted. Pt states pain 6/10 in abdomen at this time, will medicate when time. IV intact. Bed in lowest locked position. Call light within reach. Safety maintained. Will continue to monitor. [facility] NURSING PROG HNO ID: [id number] Author: Meka Conrad RN Service: ? Author Type: Registered Nurse Type: Nursing Progress Note Filed: 06/14/2022 9:50 AM Note Text: Other: 0705 Assumed care of patient. Bed locked and in lowest position. Call light within reach. Will continue to monitor [facility] XR PELVIS 1V APon 06-14-2022 XR PELVIS 1V AP * * *Final Report* * * DATE OF EXAM: Jun 14 2022 12:04PM HCX 5239 - XR PELVIS 1V AP / PROCEDURE REASON: Bone mass or bone pain, pelvis, no prior imaging * * * * Physician Interpretation * * * * RESULT: XR PELVIS 1V AP Reason for study reason for study: Bone mass or bone pain, pelvis, no prior imaging/ 36 years/Female/ RESULT: No acute bony pathology identified. No discrete lytic or blastic lesion. The articular surfaces are within normal limits. The SI joints are unremarkable. Incidentally noted is prominent stool within the colon. Calcifications in the pelvis consistent with phleboliths IMPRESSION: No acute bony pathology Transcribed Using Voice Recognition Transcribe Date/Time: Jun 14 2022 12:17P Dictated by: VICKY GUTIERREZ MD This examination was interpreted and the report reviewed and electronically signed by: VICKY GUTIERREZ MD on Jun 14 2022 12:18PM EST [id number] [facility] CBC panel Auto (Bld)on 06-13 Erythrocyte distribution width (RBC) [Ratio] 13.2 % Normal 11.5-15.0 [facility] Comment on above: Order Comment: Speci men Type: BLOOD SPECIMENOrdering Facility: [facility] Address: [address] [place] [address] Performed By: #### 5 8410-2 ####[facility]ATORYCLIA [id number] [place] [address] [place] Hematocrit (Bld) [Volume fraction] 33.3 % Low 36.0-46.0 [facility] Comment on above: Order Comment: Speci men Type: BLOOD SPECIMENOrdering Facility: [facility] Address: [address] [place] [address] Performed By: #### 5 8410-2 ####[facility]ORY[facility] [id number] [place] [address] [place] Hemoglobin (Bld) [Mass/Vol] 10.8 g/dL Low 11.5-15.5 [facility] Comment on above: Order Comment: Speci men Type: BLOOD SPECIMENOrdering Facility: [facility] Address: [address] [place] [address] Performed By: #### 5 8410-2 ####[facility]ORY[facility] [id number] [address] [place] MCH (RBC) [Entitic mass] 29.6 pg Normal 26.0-34.0 [facility] Comment on above: Order Comment: Speci men Type: BLOOD SPECIMENOrdering Facility: [facility] Address: [address] [place] [address] Performed By: #### 5 8410-2 ####[facility] LABORATORYCLIA [id number] [place] [address] [place] MCHC (RBC) [Mass/Vol] 32.4 g/dL Normal 30.5-36.0 [facility] Comment on above: Order Comment: Speci men Type: BLOOD SPECIMENOrdering Facility: [facility] Address: [address] [place], [place] [id number] Performed By: #### 5 8410-2 ####[facility]ORATORYCLIA [id number] [place] [address] [place] MCV (RBC) [Entitic vol] 91.2 fL Normal 80.0-100.0 [facility] Comment on above: Order Comment: Speci men Type: BLOOD SPECIMENOrdering Facility: [facility] Address: [address] [place] [address] Performed By: #### 5 8410-2 ####[facility]ORATORYCLIA [id number] [place] [address] [place] Nucleated RBC (Bld) [#/Vol] 10*3/uL Normal <0.01 [facility] Comment on above: Order Comment: Speci men Type: BLOOD SPECIMENOrdering Facility: [facility] Address: [address] [place] [address] Performed By: #### 5 8410-2 ####[facility] LABORATORYCLIA [id number] [address] [place] Platelet mean volume (Bld) [Entitic vol] 10.2 fL Normal 9.0-12.7 [facility] Comment on above: Order Comment: Speci men Type: BLOOD SPECIMENOrdering Facility: [facility] Address: [address] [place] [address] Performed By: #### 5 8410-2 ####[facility]ORATORYCLIA [id number] [place] [address] [place] Platelets (Bld) [#/Vol] 204 10*3/uL Normal 150-400 [facility] Comment on above: Order Comment: Speci men Type: BLOOD SPECIMENOrdering Facility: [facility] Address: [address] [place] [address] Performed By: #### 5 8410-2 ####[facility]ORATORYCLIA [id number] [place] [address] [place] RBC (Bld) [#/Vol] 3.65 10*6/uL Low 3.90-5.20 [facility] Comment on above: Order Comment: Speci men Type: BLOOD SPECIMENOrdering Facility: [facility] Address: [address] [place] [address] Performed By: #### 5 8410-2 ####[facility] LABORATORYCLIA [id number] [place] [address] [place] WBC (Bld) [#/Vol] 5.95 10*3/uL Normal 3.70-11.00 [facility] Comment on above: Order Comment: Speci men Type: BLOOD SPECIMENOrdering Facility: [facility] Address: [address] [place] [address] Performed By: #### 5 8410-2 ####[facility] LABORATORYCLIA [id number] [address] [place] CNCOon 06-13-2022 CNCO Letter Text Normal [facility] CONSULT PROGon 06-13-2022 CONSULT PROG HNO ID: [id number] Author: Nidhi Umanzor APRN.[employer] Service: Gastroenterology Author Type: Nurse Practitioner Type: Consult Progress Note Filed: 06/13/2022 10:46 AM Note Text: CONSULT GI PROGRESS NOTES PATIENT NAME: Julieth Spencer SERVICE DATE: 06/13/2022 SERVICE TIME: 9:32 AM CONSULTING SERVICE: GI ASSESSMENT AND PLAN 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 Guillen in consultation (need for pancreatectomy?) Who requested that Dr. Juan perform EUS, pancreatic biopsy, ERCP with sphincterotomy and stent. --06/06/22 ERCP/EUS> prior biliary sphincterotomy; 10 Fr biliary stent placed, superior portion of papilla bx -- 06/08 CT pancreas > acute on chronic pancreatitis --Path > Neg w no increase of IgG4 plasma cells --Admitted at [facility] with acute episode of pancreatitis likely exacerbated by ERCP/EUS day prior to admission -- Initial etiology of pancreatitis is unclear. Although question whether may be autoimmune (mckenzie given hx IBD), pathology from ERCP 06/06/2022 was negative for IgG4 plasma cell increase --LFT WNL --Creon 36 -increase to 2 capsules TID with meals AND add Creon 12- (1) capsule w snacks (these are patient's home doses) --Needs 50 g low-fat diet as tolerated --Repeat ERCP in [address] Whaley > with stent exchange AND possible extension of sphincterotomy + repeat EUS with possible pancreatic biopsy (Message was sent to office). Diarrhea w reported small rectal bleeding in setting of patient with Crohn's disease --most likely a result of inadequate pancreatic enzymes with meals as well as aggressive laxative use. Doubt this is exacerbation of Crohn's --Needs low-fat diet -changed in the medical center --Creon increased to home doses --Discontinue scheduled MiraLAX, Colace, senna. --Stool chart Crohn's disease -- On Humira but none x1 month (due to specialty pharmacy delivery issues) -- Last colonoscopy in January in [place] (records not found in the medical center) --Resume usual Humira at discharge. --No plan to repeat colonoscopy at this point in time If tolerates lunch without significant abdominal pain, okay to discharge from GI standpoint and follow-up with Dr. Whaley/Stefanie Solorzano CNP as noted above. (Patient was previously following GI in [place] for Crohn's as well as GI at for pancreatitis but plans to consolidate with our practice.) SUBJECTIVE INTERVAL HPI: Feeling a little better today, still little pain upper abdomen but much better than when she was admitted. She has been taking oxycodone AND also required 1 dose of Dilaudid. OBJECTIVE BP 121/80 Pulse 62 Temp (Src) 98 (Oral) Resp 18 Ht 5' 3 (1.60m) Wt 100 lb (45.4kg) SpO2 100% LMP 01/11/2019 BMI 17.72 kg/(m2). O2 Therapy: Room Air PHYSICAL EXAM: GENERAL: in NAD SKIN: Skin warm, dry, pale pink NEURO: Alert, Oriented x 3 ABDOMEN: Soft, non-distended, mild tender mid upper abdomen, no guarding DATA: Diagnostic tests reviewed for today's visit: CBC, Coags, BMP, Mg, Phos Recent Labs 06/11/22 0625 WBC 6.19 HB 10.5* HCT 32.9* PLT 171 Liver Function, Amylase, AND Lipase SIGNATURE: Nidhi Umanzor APRN.[employer] DATE: June 13, 2022 TIME: 9:32 AM Office [facility] NURSING PROGon 06-13-2022 NURSING PROG HNO ID: [id number] Author: Evelyne Rosales RN Service: Nursing Author Type: Registered Nurse Type: Nursing Progress Note Filed: 06/14/2022 3:51 AM Note Text: Nursing Progress Note Patient Name: Julieth Spencer Patient Location: [place] [address] [address] Daily Note: 2100: Patient resting in bed. AANDOx3. Denies SOB, N/V and chest pain. Complaints of abdominal pain, medicated per MAR. IV patent. Bed low and locked, call tomas within reach. 0000: Patient observed asleep. 0107: Medicated for pain and nausea, see MAR. This note was completed by: Evelyne Rosales [facility] NURSING PROG HNO ID: [id number] Author: Patsy Harvey RN Service: Nursing Author Type: Registered Nurse Type: Nursing Progress Note Filed: 06/13/2022 11:00 AM Note Text: Other: 0755: Assumed care of patient. Assessment as charted. Alert and oriented x3. Denies SOB/cough. C/o abd pain, medicated per MAR, IVF infusing per order. Nicotine patch to left shoulder, intact 1000: C/o rectal discomfort, patient placed on stool charting per [facility] NURSING PROG HNO ID: [id number] Author: Ligia Britton RN Service: Nursing Author Type: Registered Nurse Type: Nursing Progress Note Filed: 06/13/2022 2:39 AM Note Text: Other: 1900 Assumed care of patient 6 Pt. Assessed per flow sheet. Pt. AANDOx3 currently not complaining of SOB, chest pain or discomfort. Pt. States still some abdomen tenderness. Pt has no other needs at this time. Call light within reach. Bed locked and in lowest position. Bed alarm on and functioning. Will continue to monitor. 0200 Prior assessment unchanged. Pt. Resting comfortably not showing any signs of SOB, chest pain or discomfort. Pt has no other needs at this time. Call light within reach. Bed locked and in lowest position. Bed alarm on and functioning. Will continue to monitor. 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 S/p ERCP with EUS and stent Hx/O CCY Chronic CBD dilation Crohn's disease on Humira Type 1 diabetes on Insulin Pump PLAN: --- recommend weaning IV pain medication --- can start on diabetic diet -- needs to take the creon with meals -- patient knows to request from nursing --- if she does well with diet -- can likely discharge with continued outpatient GI management --- will need repeat ERCP with stent change in 2 months -- message confirmed to [facility] staff/procedure pool ASSESSMENT: Recurrent pancreatitis of unclear etiology --- 2018 CCY --- 2019 began with pancreatitis --- had more than one ERCP with CBD stenting done with recurrent stent exchanges --- 03/2022 was treated at for possible autoimmune but did not help symptoms --- 03/[address] Giullen for additional options -- recommended HIDA --- 04/2022 HIDA noting SOD dysfunction --- 06/06/22 ERCP : noted prior biliary sphincterotomy -- slow drainage of contrast noted -- 10Fr x 7 cm biliary stent placed -- good drainage resulting -- superior portion of papilla was biopsied --- developed pain following ERCP/stenting procedure and was admitted. --- on dilaudid for pain control --- currently weaning and this was discussed with primary team --- Lipase 4 --- no active inflammation noted however low amylase and lipase levels can be seen in advanced chronic pancreatitis and are often not helpful as a diagnostic marker to determine severity of illness and often will decrease with subsequent pain flares (UpToDate) --- LFT are all NORMAL --- 06/08/22 CT panc -- chronic pancreatitis; mild peripancreatic standing with superimposed acute on chronic pancreatitis; Nutmeg appearance of the liver which can be seen with hepatic venous congestion. --- tolerated oatmeal with no vomiting today --- still having abdominal pain and requiring narcotics both oral and IV --- would suggest weaning process to help with discharge planning ROS: Feels better today [place] full after eating the oatmeal yesterday but recalls not taking creon beforehand No vomiting Still minimal nausea No diarrhea Abdominal pain is better VITAL SIGNS: Temp (24hrs), Av.7 ?C (98.1 ?F), Min:36.6 ?C (97.9 ?F), Max:36.8 ?C (98.2 ?F) BP 103/63 Pulse 61 Temp (Src) 98.1 (Oral) Resp 18 Ht 5' 3 (1.60m) Wt 100 lb (45.4kg) SpO2 99% LMP 01/11/2019 BMI 17.72 kg/(m2). O2 Therapy: Room Air PHYSICAL EXAM : GENERAL: Alert, no distress, cooperative LUNGS: Lungs clear to auscultation, Good diaphragmatic excursion CARDIAC: Normal S1 and S2; no rubs, murmurs, or gallops ABDOMEN: mild Left upper quadrant pain -- no distension, soft abdomen bowel sounds present EXTREMITIES: Extremities normal, no deformities, edema, clubbing or skin discoloration. Good capillary refill., No ulcers SUBJECTIVE HPI: Portions of patient history copied from prior GI consulting documentation. Julieth Spencer is a 36 year old year old female initially seen in GI practice as a Distance health visit -- she resides in [place]. Having recurrent pancreatitis since having CCY in 2018. Abdominal pain started in 2019 dx with pancreatitis and possibly related to gallstones. Underwent first ERCP with CBD stenting. Stents have been exchanged several times since then but continues to develop episodes or recurrent pancreatitis. She was seen at for acute on chronic pancreatitis thought to be autoimmune and treated with steroids in March 2022. This did not make her feel any better and she then made appointments with GI and hepatobiliary practices at [facility]. She was seen by Dr Guillen 04/02/22 who recommended HIDA scan to evaluate for SOD dysfunction. HIDA was noting ABNORMAL sphincter scintigraphic score consistent with SOD dysfunction. Patient was then seen by Dr Whaley in GI practice for discussion to plan ERCP EUS with stent and pancreatic biopsies if possible. Dr Guillen has remained involved with discussion to proceed with plan. S/P ERCP --- noted prior biliary sphincterotomy -- slow drainage of contrast noted -- 10Fr x 7 cm biliary stent placed -- good drainage resulting -- superior portion of papilla was biopsied She currently follows with pain management with but is transitioning to [facility]. Medical history is also complicated by Crohn's for which she is on Humira and is managed with GI at [facility]. IMAGIN06/08/22 CT panc Redemonstration of (more content not included)... Normal [facility] NURSING PROGon 06-12-2022 NURSING PROG HNO ID: [id number] Author: Cheyenne Reyes RN Service: ? Author Type: Registered Nurse Type: Nursing Progress Note Filed: 06/12/2022 11:24 AM Note Text: Other: nursing note: 0756 pt assessment completed as charted. Pt is aox3 and reports severe abdominal pain. Pt also reports intermittent nausea. IVF infusing per orders. My safety plan reviewed w/patient. 0817 pt medicated per NOV. Pt states she has no further needs at this time. Will continue to monitor. Call light is within reach. [facility] NURSING PROG HNO ID: [id number] Author: Ligia Britton RN Service: Nursing Author Type: Registered Nurse Type: Nursing Progress Note Filed: 06/12/2022 12:50 AM Note Text: Other 1900 Assumed care of patient 2021 Pt. Assessed per flow sheet. Pt. AANDOx3 currently not complaining of SOB, chest pain or discomfort. Pt. States still some abdomen tenderness. Pt has no other needs at this time. Call light within reach. Bed locked and in lowest position. Bed alarm on and functioning. Will continue to monitor. 0040 Prior assessment unchanged. Pt. Resting comfortably not showing any signs of SOB, chest pain or discomfort. Pt has no other needs at this time. Call light within reach. Bed locked and in lowest position. Bed alarm on and functioning. Will continue to monitor. [facility] NUTRITIONon 06-12-2022 NUTRITION HNO ID: [id number] Author: Yady Can RD Service: Nutrition Therapy Author Type: Registered Dietitian Type: Nutrition Filed: 06/12/2022 2:08 PM Note Text: NUTRITION THERAPY PROGRESS NOTE SERVICE DATE: 06/12/2022 SERVICE TIME: 1146a Nutrition Assessment: Recommended Malnutrition Diagnosis: Moderate Protein-Calorie Malnutrition (06/07/22 1130 : Lupis Sanchez RD) Estimated kilocalorie needs: 5895-7574 Calorie Calculation Method: 30-35 kcals/kg Estimated protein needs (grams): 54-68g Grams protein determined by: 1.2 - 1.5 g/kg Care Plan: Follow for diet advancement to goal Supplements: Ensure Clear Refer to: (outpatient nutrition therapy) Vitamins and Minerals: Multivitamin with minerals Monitor and Evaluation: Meet greater than 75% of estimated needs;Monitor fluid/electrolyte balance;Monitor labs, I/Os, vital signs, weight Discharge Recommendations: Diet;Oral Supplements Diet: CHO controlled, low fat Oral Supplements: as necessary Interval History: continue with oral diet as tolerated - advanced today. Likes ensure clear supplements - Ensure Clear provides 240kcal, 8g protein per 237mL container. Patient states she had nausea yesterday, but states she forgot to take creon. States tolerated breakfast better today. Takes ensure at home when needed. Interested in learning how to manage her diet better with crohns/diabetes/pancreat itis - outpatient phone number provided. ERCP with biopsy completed 06/11. Anthropometrics: Height: 160 cm (5' 3 ) Weight: 45.4 kg (100 lb) Dosing Weight: 45.4 kg (100 lb 1.4 oz) Usual Weight: (The patient did not state a UBW but claims that she has lost 40lbs x 6-7 months) Usual Weight Obtained From: Patient Body mass index is 17.71 kg/m?. Underweight Weight change percentage over time: no new weight to review Intake History: Current Nutrition Intake: Less than 50% estimated energy needs Current Intake Over time: Greater than or equal to 5 days Diet Orders (From admission, onward) Start Ordered 06/12/22 1030 DIET REGULAR START NOW 06/12/22 1015 06/07/22 1200 DIET SUPPLEMENTS START NOW Question Answer Comment Supplement 1 (19 years and up) ENSURE CLEAR APPLE Supplement 1 Frequency 1. BREAKFAST Supplement 1 Frequency 5. DINNER Supplement 2 (19 years and up) ENSURE CLEAR MIXED NOONAN Supplement 2 Frequency 3. LUNCH 06/07/22 1152 GI Symptoms: Nausea;Abdominal pain;Constipation Stool Amount: (N/A) MNT Billing: $ Reassessment: 1-15 minutes SIGNATURE: Yady Can RD PATIENT NAME: Julieth Spencer DATE: June 12, 2022 TIME: 2:07 PM Normal [facility] CBC panel Auto (Bld)on 06-11 Erythrocyte distribution width (RBC) [Ratio] 13.1 % Normal 11.5-15.0 [facility] Comment on above: Order Comment: Agata adkins Type: BLOOD SPECIMENOrdering Facility: [facility] Address: [address] [place] [address] Performed By: #### 5 8410-2 ####[facility] LABORATORYCLIA [id number] [place] [address] [place] Hematocrit (Bld) [Volume fraction] 32.9 % Low 36.0-46.0 [facility] Comment on above: Order Comment: Agata adkins Type: BLOOD SPECIMENOrdering Facility: [facility] Address: [address] [place] [address] Performed By: #### 5 8410-2 ####[facility] LABORATORYCLIA [id number] [place] [address] [place] Hemoglobin (Bld) [Mass/Vol] 10.5 g/dL Low 11.5-15.5 [facility] Comment on above: Order Comment: Agata men Type: BLOOD SPECIMENOrdering Facility: [facility] Address: [address] [place] [address] Performed By: #### 5 8410-2 ####[facility] LABORATORYCLIA [id number] [address] MCH (RBC) [Entitic mass] 29.2 pg Normal 26.0-34.0 [facility] Comment on above: Order Comment: Speci men Type: BLOOD SPECIMENOrdering Facility: [facility] Address: [address] [place] [address] Performed By: #### 5 8410-2 ####[facility]ORATORYCLIA [id number] [address] [place] MCHC (RBC) [Mass/Vol] 31.9 g/dL Normal 30.5-36.0 [facility] Comment on above: Order Comment: Speci men Type: BLOOD SPECIMENOrdering Facility: [facility] Address: [address] [place] [address] Performed By: #### 5 8410-2 ####[facility]ORATORYCLIA [id number] [address] [place] MCV (RBC) [Entitic vol] 91.6 fL Normal 80.0-100.0 [facility] Comment on above: Order Comment: Speci men Type: BLOOD SPECIMENOrdering Facility: [facility] Address: [address] [place] [address] Performed By: #### 5 8410-2 ####[facility]ATORYCLIA [id number] [address] [place] Nucleated RBC (Bld) [#/Vol] 10*3/uL Normal <0.01 [facility] Comment on above: Order Comment: Speci men Type: BLOOD SPECIMENOrdering Facility: [facility] Address: [address] [place] [address] Performed By: #### 5 8410-2 ####[facility]ATORYCLIA [id number] [address] [place] Platelet mean volume (Bld) [Entitic vol] 10.4 fL Normal 9.0-12.7 [facility] Comment on above: Order Comment: Speci men Type: BLOOD SPECIMENOrdering Facility: [facility] Address: [address] [place] [address] Performed By: #### 5 8410-2 ####[facility]ATORYCLIA [id number] [address] [place] Platelets (Bld) [#/Vol] 171 10*3/uL Normal 150-400 [facility] Comment on above: Order Comment: Speci men Type: BLOOD SPECIMENOrdering Facility: [facility] Address: [address] [place] [address] Performed By: #### 5 8410-2 ####[facility]ORATORYCLIA [id number] [place] [address] [place] RBC (Bld) [#/Vol] 3.59 10*6/uL Low 3.90-5.20 [facility] Comment on above: Order Comment: Speci men Type: BLOOD SPECIMENOrdering Facility: [facility] Address: [address] [place] [address] Performed By: #### 5 8410-2 ####[facility] LABORATORYCLIA [id number] [address] [place] WBC (Bld) [#/Vol] 6.19 10*3/uL Normal 3.70-11.00 [facility] Comment on above: Order Comment: Speci men Type: BLOOD SPECIMENOrdering Facility: [facility] Address: [address] [place] [address] Performed By: #### 5 8410-2 ####[facility]ORATORYCLIA [id number] [address] [place] CONSULT PROGon 06-11-2022 CONSULT PROG HNO ID: [id number] Author: Stefanie Solorzano APRN.[employer] Service: Gastroenterology Author Type: Nurse Practitioner Type: Consult Progress Note Filed: 06/11/2022 12:14 PM Note Text: Gastroenterology Daily Progress Note PATIENT NAME: Julieth Spencer SERVICE DATE: 06/11/2022 SERVICE TIME: 11:56 AM CONSULT CHIEF COMPLAINT: chronic pancreatitis with abdominal pain Discussed with : PROBLEM LIST: Idiopathic Pancreatitis -- 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 S/p ERCP with EUS and stent Hx/O CCY Chronic CBD dilation Crohn's disease on Humira Type 1 diabetes on Insulin Pump PLAN: --- recommend weaning narcotics -- for purposes of discharge planning --- would continue with regular diet low fat --- continues to need antiemetics ASSESSMENT: Recurrent pancreatitis of unclear etiology --- 2018 CCY --- 2019 began with pancreatitis --- had more than one ERCP with CBD stenting done with recurrent stent exchanges --- 03/2022 was treated at for possible autoimmune but did not help symptoms --- 03/[address] Guillen for additional options -- recommended HIDA --- 04/2022 HIDA noting SOD dysfunction --- 06/06/22 ERCP : noted prior biliary sphincterotomy -- slow drainage of contrast noted -- 10Fr x 7 cm biliary stent placed -- good drainage resulting -- superior portion of papilla was biopsied --- developed pain following procedure and was admitted. --- on dilaudid for pain control --- Lipase 4 --- no active inflammation noted however low amylase and lipase levels can be seen in advanced chronic pancreatitis and are often not helpful as a diagnostic marker to determine severity of illness and often will decrease with subsequent pain flares (UpToDate) --- LFT are all NORMAL --- 06/08/22 CT panc -- chronic pancreatitis; mild peripancreatic standing with superimposed acute on chronic pancreatitis; Nutmeg appearance of the liver which can be seen with hepatic venous congestion. --- tolerated oatmeal with no vomiting today --- still having abdominal pain and requiring narcotics both oral and IV --- would suggest weaning process to help with discharge planning ROS: Still with nausea after eating No vomiting Pain still present to abdomen Still on IV and oral pain medication VITAL SIGNS: Temp (24hrs), Av.9 ?C (98.4 ?F), Min:36.7 ?C (98.1 ?F), Max:37.1 ?C (98.8 ?F) BP 112/71 Pulse 59 Temp (Src) 98.1 (Oral) Resp 18 Ht 5' 3 (1.60m) Wt 100 lb (45.4kg) SpO2 97% LMP 01/11/2019 BMI 17.72 kg/(m2). O2 Therapy: Room Air PHYSICAL EXAM : GENERAL: Alert, no distress, cooperative LUNGS: Lungs clear to auscultation, Good diaphragmatic excursion CARDIAC: Normal S1 and S2; no rubs, murmurs, or gallops ABDOMEN: LUQ, epigastric pain with exam -- persists EXTREMITIES: Extremities normal, no deformities, edema, clubbing or skin discoloration. Good capillary refill. SUBJECTIVE HPI: Portions of patient history copied from prior GI consulting documentation. Julieth Spencer is a 36 year old year old female initially seen in GI practice as a Distance health visit -- she resides in [place]. Having recurrent pancreatitis since having CCY in 2017. Abdominal pain started in 2018 dx with pancreatitis and possibly related to gallstones. Underwent first ERCP with CBD stenting. Stents have been exchanged several times since then but continues to develop episodes or recurrent pancreatitis. She was seen at for acute on chronic pancreatitis thought to be autoimmune and treated with steroids in March 2022. This did not make her feel any better and she then made appointments with GI and hepatobiliary practices at [facility]. She was seen by Dr Guillen 04/02/22 who recommended HIDA scan to evaluate for SOD dysfunction. HIDA was noting ABNORMAL sphincter scintigraphic score consistent with SOD dysfunction. Patient was then seen by Dr Whaley in GI practice for discussion to plan ERCP EUS with stent and pancreatic biopsies if possible. Dr Guillen has remained involved with discussion to proceed with plan. S/P ERCP --- noted prior biliary sphincterotomy -- slow drainage of contrast noted -- 10Fr x 7 cm biliary stent placed -- good drainage resulting -- superior portion of papilla was biopsied She currently follows with pain management with but is transitioning to [facility]. Medical history is also complicated by Crohn's for which she is on Humira and is managed with GI at [facility]. IMAGIN06/08/22 CT panc Redemonstration of findings of chronic pancreatitis. Mild peripancreatic stranding. Correlate for superimposed acute pancreatitis in the appropriate clinical setting. No peripancreatic fluid collection. Cholecystectomy changes and bile duct stent are present. Nutmeg appearance of the liver which can be seen with hepatic venous congestion. 3 mm lingular nodule, not demonstrated previously 06/06/22 ERCP 1. Previ (more content not included)... [facility] NURSING PROn 06-11-2022 NURSING PROG HNO ID: [id number] Author: Dalton Hurtado RN Service: ? Author Type: Registered Nurse Type: Nursing Progress Note Filed: 06/10/2022 10:18 PM Note Text: Daily Note: 2030 Assumed care of patient. Pt is resting in bed at this time. Aaox3. Vital signs are stable as charted. Denies having any chest pain, headache, nausea, or trouble breathing. Educated about call light, placed within reach. IV fluids infusing per mar. Safety maintained. [facility] CONSULT PROn 06-10-2022 CONSULT PROG HNO ID: [id number] Author: Ishmael Cuevas MD Service: Gastroenterology Author Type: Physician Type: Consult Progress Note Filed: 06/10/2022 2:55 PM Note Text: GI CONSULT PROGRESS NOTE SERVICE DATE: 06/10/2022 SERVICE TIME: 2:53 PM CONSULTING SERVICE: Gastroenterology Subjective INTERVAL HPI: Pain better controlled She wants toast, oatmeal Current Facility-Administered Medications Medication Dose Route Frequency ondansetron 4 mg tab(s) (ZOFRAN) 4 mg ORAL q 6 H PRN Or ondansetron (PF) 4 mg injection (ZOFRAN) 4 mg INTRAVENOUS q 6 H PRN prochlorperazine 10 mg injection (COMPAZINE) 10 mg INTRAVENOUS q 6 H PRN hydrALAZINE 5 mg injection (APRESOLINE) 5 mg INTRAVENOUS PRN NaCl 0.9% iv flush bag 20 mL INTRAVENOUS PRN sodium chloride 0.9 % (flush) 3-5 mL (BD POSIFLUSH) 3-5 mL INTRAVENOUS q 12 H acetaminophen 650 mg tab(s) (TYLENOL) 650 mg ORAL q 6 H PRN sucralfate 1 g tab(s) (CARAFATE) 1 g ORAL QID gabapentin 800 mg cap(s) (NEURONTIN) 800 mg ORAL TID pantoprazole DR 40 mg tab(s) (PROTONIX) 40 mg ORAL DAILY (6 AM) DULoxetine 60 mg cap(s) (CYMBALTA) 60 mg ORAL DAILY NaCl 0.9% iv flush bag 20 mL INTRAVENOUS PRN sodium chloride 0.9 % (flush) 3-5 mL (BD POSIFLUSH) 3-5 mL INTRAVENOUS q 12 H aluminum-magnesium hydroxide-simethicone 200-200-20 mg/5 mL 30 mL (MAALOX,MYLANTA,MAG-AL PLUS) 30 mL ORAL DAILY PRN dextrose 40 % 15 g 15 g ORAL PRN Or glucagon 1 mg injection 1 mg INTRAMUSCULAR PRN Or dextrose 10% iv bolus 12.5 g INTRAVENOUS PRN promethazine 25 mg tab(s) (PHENERGAN) 25 mg ORAL q 6 H PRN busPIRone 10 mg tab(s) (BUSPAR) 10 mg ORAL BID nicotine 14 mg/24 hr 1 Patch (NICODERM) 1 Patch TRANSDERMAL DAILY And nicotine -- REMOVE patch OTHER DAILY And nicotine - verify patch OTHER q 8 H insulin lispro (HumaLOG) 300 Units per 3mL vial for insulin pump (SELF ADMINISTERED) 300 Units SUBCUTANEOUS CONTINUOUS traZODone 100 mg tab(s) (DESYREL) 100 mg ORAL AT BEDTIME oxyCODONE IR 15 mg tab(s) (ROXICODONE) 15 mg ORAL q 4 H PRN iv contrast (radiology procedure) INTRAVENOUS DIRECTED PRN dextrose 5% in NaCl 0.9% iv infusion 75 mL/hr INTRAVENOUS CONTINUOUS HYDROmorphone 1 mg injection (DILAUDID) 1 mg INTRAVENOUS q 6 H PRN Objective PHYSICAL EXAM: Physical Exam Performed: BP 105/63 Pulse 57 Temp (Src) 98.1 (Oral) Resp 16 Ht 5' 3 (1.60m) Wt 100 lb (45.4kg) SpO2 97% LMP 01/11/2019 BMI 17.72 kg/(m2). O2 Therapy: Room Air Aao x 3 Anicteric sclerae No jaundice Breathing comfortably Abdomen is soft, not distended. + upper tenderness, mild to moderate DATA: Diagnostic tests reviewed for today's visit: Most recent labs and imaging results. 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 --CCY 2017 --06/06/22 ERCP > noted prior biliary sphincterotomy - 10 Fr biliary stent placed, superior portion of papilla bx --LFT's wnl --CT pancreas 06/08 > chronic pancreatitis and mild stranding suggestive of superimposed acute pancreatitis --she wants to trial oatmeal and toast --IVF --Pain management --Discharge plan - will update Dr Whaley in 4 weeks regarding symptoms --- if not improved then plan is for repeat EUS with possible pancreatic biopsy -- if improves than plan is for repeat ERCP in 2 months for stent removal and possible extension of sphincterotomy Crohn's disease --On Humira SIGNATURE: Ishmael Cuevas MD PATIENT NAME: Julieth Spencer DATE: June 10, 2022 TIME: 2:53 PM [facility] NURSING PROGon 06-10-2022 NURSING PROG HNO ID: [id number] Author: Cheyenne Reyes RN Service: ? Author Type: Registered Nurse Type: Nursing Progress Note Filed: 06/10/2022 1:29 PM Note Text: Other: nursing note: 0737 pt assessment completed as charted. Pt is aox3 and repors having severe abdominal pain. Intermittent nausea reported. Pt denies chest pain or SOB. My safety plan reviewed w/patient. 0803 pt medicated per NOV. Pt states she has no further needs at this time. Will continue to monitor. Call light is within reach. [facility] NURSING PROG HNO ID: [id number] Author: Dalton Hurtado RN Service: ? Author Type: Registered Nurse Type: Nursing Progress Note Filed: 06/10/2022 2:00 AM Note Text: Daily Note: 2034 Assumed care of patient. Pt is resting in bed at this time. Aaox3. Vital signs are stable as charted. Denies having any chest pain, headache, nausea, or trouble breathing. Pt states having 9/10 pain-medicated per nov. IV fluids infusing per nov. Educated about call light, placed within reach. Bed alarm on. Safety maintained. 2336 Pt medicated per nov for pain. No other needs at this time. Prior assessment unchanged. Call light within reach. [facility] Basic metabolic 2000 panelon 06-09-2022 Anion gap [Moles/Vol] 7 mmol/L Low 9-18 [facility] Comment on above: Order Comment: Speci men Type: BLOOD SPECIMENOrdering Facility: [facility] Address: [address] [place] [address] [place] [address] Performed By: #### 2 4321-2 ####[facility]ORYCLIA [id number] [place] [address] [place] Calcium [Mass/Vol] 8.4 mg/dL Low 8.5-10.2 [facility] Comment on above: Order Comment: Speci men Type: BLOOD SPECIMENOrdering Facility: [facility] Address: [address] [place] [address] Performed By: #### 2 4321-2 ####[facility]ORYCLIA [id number] [place] [address] [place] Chloride [Moles/Vol] 108 mmol/L High 97-105 [facility] Comment on above: Order Comment: Speci men Type: BLOOD SPECIMENOrdering Facility: [facility] Address: [address] [place] [address] Performed By: #### 2 4321-2 ####[facility]ORYCLIA [id number] [place] [address] [place] CO2 [Moles/Vol] 21 mmol/L Low 22-30 [facility] Comment on above: Order Comment: Speci men Type: BLOOD SPECIMENOrdering Facility: [facility] Address: [address] [place] [address] Performed By: #### 2 4321-2 ####[facility]ORYCLIA [id number] [place] [address] [place] Creatinine [Mass/Vol] 0.66 mg/dL Normal 0.58-0.96 [facility] Comment on above: Order Comment: Speci men Type: BLOOD SPECIMENOrdering Facility: [facility] Address: [address] [place] [address] Performed By: #### 2 4321-2 ####[facility]ORYCLIA [id number] [place] [address] [place] ESTIMATED GLOMERULAR FILTRATION RATE 118 mL/min/1.73m??? Normal >=60 [facility] Comment on above: Order Comment: Speci men Type: BLOOD SPECIMENOrdering Facility: [facility] Address: [address] [id number] Result Comment: [facility] Glomerular Filtration Rate (eGFR) is calculated using the 2020 CKD-EPI creatinine equation. This equation utilizes serum creatinine, sex, and age as parameters. The creatinine assay has traceable calibration to isotope dilution-mass spectrometry. Refer to KDIGO guidelines for clinical interpretation. In patients with unstable renal function, e.g. those with acute kidney injury, the eGFR may not accurately reflect actual GFR. Performed By: #### 2 4321-2 ####[facility]ORYCLIA [id number] [place] [address] [place] Glucose [Mass/Vol] 117 mg/dL High 74-99 [facility] Comment on above: Order Comment: Agata adkins Type: BLOOD SPECIMENOrdering Facility: [facility] Address: [address] [place] [address] Result Comment: The [place] Diabetes [employer] (ADA) provides guidance for cutoff values for fasting glucose and random glucose. The ADA defines fasting as no caloric intake for at least 8 hours. Fasting plasma glucose results between 100 to 125 mg/dL indicate increased risk for diabetes (prediabetes). Fasting plasma glucose results greater than or equal to 126 mg/dL meet the criteria for diagnosis of diabetes. In the absence of unequivocal hyperglycemia, results should be confirmed by repeat testing. In a patient with classic symptoms of hyperglycemia or hyperglycemic crisis, random plasma glucose results greater than or equal to 200 mg/dL meet the criteria for diagnosis of diabetes. Reference: Standards of Medical Care in Diabetes 2016, [place] [employer]. Diabetes Care. 2016.39(Suppl 1). Performed By: #### 2 4321-2 ####[facility] LABORATORYCLIA [id number] [place] [address] [place] Potassium [Moles/Vol] 4.0 mmol/L Normal 3.7-5.1 [facility] Comment on above: Order Comment: Agata adkins Type: BLOOD SPECIMENOrdering Facility: [facility] Address: [address] [phone] Performed By: #### 2 4321-2 ####[facility]ORYCLIA [id number] [place] [address] [place] Sodium [Moles/Vol] 136 mmol/L Normal 136-144 [facility] Comment on above: Order Comment: Agata lucille Type: BLOOD SPECIMENOrdering Facility: [facility] Address: [address] [place] [address] Performed By: #### 2 4321-2 ####[facility]ORYCLIA [id number] [place] [address] [place] Urea nitrogen [Mass/Vol] 6 mg/dL Low 7-21 [facility] Comment on above: Order Comment: Claudiacj adkins Type: BLOOD SPECIMENOrdering Facility: [facility] Address: [address] [place] [address] Performed By: #### 2 4321-2 ####[facility] LABORATORYCLIA [id number] [place] [address] [place] CONSULT PROGon 06-09-2022 CONSULT PROG HNO ID: [id number] Author: Katlin Heredia APRN.CNP Service: Gastroenterology Author Type: Nurse Practitioner Type: Consult Progress Note Filed: 06/09/2022 12:01 PM Note Text: CONSULT GI PROGRESS NOTES PATIENT NAME: Julieth Spencer SERVICE DATE: 06/09/2022 SERVICE TIME: 9:42 AM CONSULTING SERVICE: GI ASSESSMENT AND PLAN Chronic pancreatitis, 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 --CCY 2017 --06/06/22 ERCP > noted prior biliary sphincterotomy - 10 Fr biliary stent placed, superior portion of papilla bx --LFT's wnl --CT pancreas 06/08 > chronic pancreatitis and mild stranding suggestive of superimposed acute pancreatitis --Go back to NPO with increase in pain --IVF --Pain management --Discharge plan - will update Dr Whaley in 4 weeks regarding symptoms --- if not improved then plan is for repeat EUS with possible pancreatic biopsy -- if improves than plan is for repeat ERCP in 2 months for stent removal and possible extension of sphincterotomy Crohn's disease --On Humira SUBJECTIVE INTERVAL HPI: still with increased pain wants increase in pain medication, reviewed will go back to NPO for 24 hours OBJECTIVE BP 95/51 Pulse 50 Temp (Src) 98.1 (Oral) Resp 18 Ht 5' 3 (1.60m) Wt 100 lb (45.4kg) SpO2 99% LMP 01/11/2019 BMI 17.72 kg/(m2). O2 Therapy: Room Air PHYSICAL EXAM: GENERAL: in NAD SKIN: Skin warm, dry, pink NEURO: Alert, Oriented x 3 ABDOMEN: Soft, non-distended, diffuse tenderness DATA: Diagnostic tests reviewed for today's visit: CBC, Coags, BMP, Mg, Phos Recent Labs 06/09/22 1023 06/07/22 0545 06/07/22 0544 WBC -- -- 7.22 HB -- -- 11.1* HCT -- -- 34.3* PLT -- -- 213 NA 136 136 -- K 4.0 4.1 -- CHLOR 108* 107* -- CO2 21* 21* -- BUN 6* 12 -- CREAT 0.66 0.57* -- GLUC 117* 105* -- CA 8.4* 8.4* -- Liver Function, Amylase, AND Lipase Recent Labs 06/07/22 0545 TPROT 6.0* ALB 3.2* ALT 14 AST 18 ALKPHOS 72 TBILI 0.2 LIPASE 4* SIGNATURE: Katlin Heredia APRN.[facility] OFFICE: [phone] DATE: June 09, 2022 TIME: 9:42 AM [facility] NURSING PROGon 06-09-2022 NURSING PROG HNO ID: [id number] Author: Manoj Saavedra RN Service: ? Author Type: Registered Nurse Type: Nursing Progress Note Filed: 06/09/2022 1:36 PM Note Text: Nursing Progress Note Patient Name: Julieth Spencer Patient Location: [facility]-2 Daily Note: 0840 Assessment as charted. Denies nausea, CP, HAAS, SOB. Reports 8/10 pain, encouraged relaxation and warm blanket for abdomen. Fluids running. Denies any further need at this time. Call light within reach. 1231 Reports 9/10 pain, medicated per eMAR. This note was completed by: Manoj Saavedra [facility] NURSING PROG HNO ID: [id number] Author: Elma Ness RN Service: Nursing Author Type: Registered Nurse Type: Nursing Progress Note Filed: 06/09/2022 1:03 AM Note Text: Other: Assessment completed. Pt resting in bed, complains of abdominal pain//LLQ 05/26. Pt reports Dilaudid not helping would like higher dose. Will notify dr. Marcelo marrero. Call light in reach. Will monitor. 0050 pt refusing to get BS checked. Pt reports checking her own machine 121. Pt states she gave herself 1 unit per MAR. Encouraged to report any s/s and continue fluids. [facility] CONSULT PROGon 06-08-2022 CONSULT PROG HNO ID: [id number] Author: Stefanie Solorzano APRN.[employer] Service: Gastroenterology Author Type: Nurse Practitioner Type: Consult Progress Note Filed: 06/08/2022 2:08 PM Note Text: -------- Attestation signed by Vicky Whaley MD at 06/08/2022 6:[address] scan reviewed. There is evidence of chronic pancreatitis and mild stranding suggestive of superimposed acute pancreatitis. I reviewed this with the patient. She is slowly improving since her first day here. We will do a slow diet advancement. She is not happy with her dosage of Dilaudid but I told her if we continue to dose escalate it will be more more difficult for her to come down and get discharge and she understands that. We agreed to take a day-to-day. Our GI team will continue to follow. I told her she needs to update our office in a few weeks time with her response to stenting. If there is no improvement at all then she needs to be considered for further interventions including pancreatectomy as previously discussed. 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 S/p ERCP with EUS and stent Hx/O CCY Chronic CBD dilation Crohn's disease on Humira Type 1 diabetes on Insulin Pump PLAN: --- CT pancreas with IV contrast -- if normal then can advance diet and can go home to follow up with pain management at --- pain management per primary team --- can continue with clear liquid diet --- to update Dr Whaley in 4 weeks regarding symptoms --- if not improved then plan is for repeat EUS with possible pancreatic biopsy -- if improves than plan is for repeat ERCP in 2 months for stent removal and possible extension of sphincterotomy ASSESSMENT: Recurrent pancreatitis of unclear etiology --- 2018 CCY --- 2019 began with pancreatitis --- had more than one ERCP with CBD stenting done with recurrent stent exchanges --- 03/2022 was treated at for possible autoimmune but did not help symptoms --- 03/[address] Guillen for additional options -- recommended HIDA --- 04/2022 HIDA noting SOD dysfunction --- 06/06/22 ERCP : noted prior biliary sphincterotomy -- slow drainage of contrast noted -- 10Fr x 7 cm biliary stent placed -- good drainage resulting -- superior portion of papilla was biopsied --- developed pain following procedure and was admitted. --- on dilaudid for pain control --- Lipase 4 --- no active inflammation noted however low amylase and lipase levels can be seen in advanced chronic pancreatitis and are often not helpful as a diagnostic marker to determine severity of illness and often will decrease with subsequent pain flares (UpToDate) --- LFT are all NORMAL Crohn's disease on HUMIRA --- stated her last humira did not arrive -- will review and contact her pharmacy for details GERD --- on carafate and PPI --- GERD symptoms are controlled Type I DM --- on insulin pump ROS: No nausea Having abdominal pain to left upper abdomen this is my pancreatitis No vomiting No fevers or chills Was able to eat jello for lunch VITAL SIGNS: Temp (24hrs), Av.9 ?C (98.5 ?F), Min:36.3 ?C (97.3 ?F), Max:37.2 ?C (99 ?F) BP 100/60 Pulse 56 Temp (Src) 98.8 (Oral) Resp 16 Ht 5' 3 (1.60m) Wt 100 lb (45.4kg) SpO2 96% LMP 01/11/2019 BMI 17.72 kg/(m2). PHYSICAL EXAM : GENERAL: Alert, no distress, cooperative LUNGS: Lungs clear to auscultation, Good diaphragmatic excursion CARDIAC: Normal S1 and S2; no rubs, murmurs, or gallops ABDOMEN: pain left upper abdomen -- with percussion -- soft non-distended EXTREMITIES: Extremities normal, no deformities, edema, clubbing or skin discoloration. Good capillary refill., No ulcers SUBJECTIVE HPI: Portions of patient history copied from prior GI consulting documentation. Julieth Spencer is a 36 year old year old female initially seen in GI practice as a Distance health visit -- she resides in [place]. Having recurrent pancreatitis since having CCY in 2017. Abdominal pain started in 2019 dx with pancreatitis and possibly related to gallstones. Underwent first ERCP with CBD stenting. Stents have been exchanged several times since then but continues to develop episodes or recurrent pancreatitis. She was seen at for acute on chronic pancreatitis thought to be autoimmune and treated with steroids in March 2022. This did not make her feel any better and she then made appointments with GI and hepatobiliary practices at [facility]. She was seen by Dr Guillen 04/02/22 who (more content not included)... Normal [facility] CT PANCREAS W IVCONon 2021 CT PANCREAS W IVCON * * *Final Report* * * DATE OF EXAM: Jun 08 2022 3:56PM [facility] / PROCEDURE REASON: Pancreatitis suspected * * * * Physician Interpretation * * * * RESULT: EXAMINATION: CT ABDOMEN with intravenous contrast, pancreas protocol HISTORY: Pancreatitis suspected TECHNIQUE: CT of the abdomen abdomen utilizing pancreas protocol with late arterial and portal venous phase images. Contrast: IV: 90 ml of Omnipaque 350 CT Radiation dose: Integrated Dose-length product (DLP) for this visit = 371 mGy*cm. CT Dose Reduction Employed: Automated exposure control(AEC) and iterative recon COMPARISON: None. RESULT: Pancreas: There is again atrophic pancreas with scattered calcifications and mild prominence of the distal pancreatic duct. No discrete mass identified on these images. Mild peripancreatic stranding. Liver: There is not make appearance of the liver. Focal fatty infiltration adjacent to the falciform ligament (image 45). No discrete hepatic mass is identified. Biliary: There is cholecystectomy. Common bile duct stent extends from the left hepatic lobe through the CBD, into the descending duodenum. Small amount of pneumobilia and bile duct wall enhancement in this patient who has a bile duct stent. Spleen: Unremarkable Adrenals: Unremarkable bilaterally. Kidneys: No focal finding right kidney. No hydronephrosis on either side. Punctate nonobstructing calculus lower pole left kidney. GI tract: Moderate stool within the visualized colon. No dilated bowel loops within the visualized portions of the abdomen. Lymph nodes: No abdominal adenopathy. Mesentery/Peritoneum: Trace ascites. There is no free air within the visualized abdomen. Vasculature: Portal and splenic veins are patent. Splenic artery is patent. No evidence of abdominal aortic aneurysm. Lower thorax: Trace bilateral pleural effusions. Minor bibasilar atelectasis. 3 mm lingular nodule (image 5 of 104), not demonstrated previously. Bones/Soft Tissues: No acute osseous findings. [employer] (topogram images): No additional findings. IMPRESSION: Redemonstration of findings of chronic pancreatitis. Mild peripancreatic stranding. Correlate for superimposed acute pancreatitis in the appropriate clinical setting. No peripancreatic fluid collection. Cholecystectomy changes and bile duct stent are present. Nutmeg appearance of the liver which can be seen with hepatic venous congestion. 3 mm lingular nodule, not demonstrated previously. Incidental Finding: Follow-up Acuity: Incidental Finding: Solid: <6 mm (solitary or multiple) Routing Code: N/A Recommendation: No imaging follow-up is recommended Time Frame: N/A Comments: If there are risk factors for lung malignancy, a follow-up chest CT exam could be obtained in 12 months COMMUNICATION:? Results will be communicated with the ordering provider via [employer] staff message by [employer] within 2 business days of report finalization. Transcribed Using Voice Recognition Transcribe Date/Time: Jun 08 2022 4:22P Dictated by: KRISTEN SHORT MD This examination was interpreted and the report reviewed and electronically signed by: KRISTEN SHORT MD on Jun 08 2022 4:48PM EST [id number] [id number] Invalid Interpretation Code [facility] NURSING PROGon 06-08-2022 NURSING PROG HNO ID: [id number] Author: Cathy Carter RN Service: ? Author Type: Registered Nurse Type: Nursing Progress Note Filed: 06/08/2022 7:29 PM Note Text: Other: 1600: Assumed care of pt. AANDOx3. Pt in stable condition. VSS. No needs at this time. Safety maintained. Normal [facility] NURSING PROG HNO ID: [id number] Author: Farnaz Justice RN Service: ? Author Type: Registered Nurse Type: Nursing Progress Note Filed: 06/08/2022 10:20 AM Note Text: Other: 0805 patient awake in bed, alert and oriented x 3, WRAY, follows commands. Medicated for abdominal pain. Assessment per flow sheet. Pt denies any nausea at this time. Pt denies further needs. Will monitor. Call light in reach. 1020 patient appears to be sleeping. No signs of distress. Normal [facility] [facility] Auto (Bld)on 06-07 Erythrocyte distribution width (RBC) [Ratio] 13.3 % Normal 11.5-15.0 [facility] Comment on above: Order Comment: Speccj adkins Type: BLOOD SPECIMEN Ordering Facility: [facility] Address: [address] [place] [id number] Performed By: #### 5 8410-2 #### [facility] CLIA [id number] [address] [place] [address] [place] Hematocrit (Bld) [Volume fraction] 34.3 % Low 36.0-46.0 [facility] Comment on above: Order Comment: Speci men Type: BLOOD SPECIMEN Ordering Facility: [facility] Address: [address] [place] [address] Performed By: #### 5 8410-2 #### [facility] CLIA [id number] [address] [place] [address] [place] Hemoglobin (Bld) [Mass/Vol] 11.1 g/dL Low 11.5-15.5 [facility] Comment on above: Order Comment: Speci men Type: BLOOD SPECIMEN Ordering Facility: [facility] Address: [address] [place] [address] Performed By: #### 5 8410-2 #### [facility] CLIA [id number] [address] [place] [address] [place] MCH (RBC) [Entitic mass] 29.8 pg Normal 26.0-34.0 [facility] Comment on above: Order Comment: Speci men Type: BLOOD SPECIMEN Ordering Facility: [facility] Address: [address] [place] [address] Performed By: #### 5 8410-2 #### [facility] CLIA [id number] [address] [place] [address] [place] MCHC (RBC) [Mass/Vol] 32.4 g/dL Normal 30.5-36.0 [facility] Comment on above: Order Comment: Speci men Type: BLOOD SPECIMEN Ordering Facility: [facility] Address: [address] [place] [address] Performed By: #### 5 8410-2 #### [facility] CLIA [id number] [address] [place] [address] [place] MCV (RBC) [Entitic vol] 92.0 fL Normal 80.0-100.0 [facility] Comment on above: Order Comment: Speci men Type: BLOOD SPECIMEN Ordering Facility: [facility] Address: [address] [place] [address] Performed By: #### 5 8410-2 #### [facility] CLIA [id number] [address] [place] [address] [place] Nucleated RBC (Bld) [#/Vol] 10*3/uL Normal <0.01 [facility] Comment on above: Order Comment: Speci men Type: BLOOD SPECIMEN Ordering Facility: [facility] Address: [address] [place] [address] Performed By: #### 5 8410-2 #### [facility] CLIA [id number] [address] [place] [address] [place] Platelet mean volume (Bld) [Entitic vol] 9.8 fL Normal 9.0-12.7 [facility] Comment on above: Order Comment: Speci men Type: BLOOD SPECIMEN Ordering Facility: [facility] Address: [address] [place] [address] Performed By: #### 5 8410-2 #### [facility] CLIA [id number] [address] [place] [address] [place] Platelets (Bld) [#/Vol] 213 10*3/uL Normal 150-400 [facility] Comment on above: Order Comment: Speci men Type: BLOOD SPECIMEN Ordering Facility: [facility] Address: [address] [place] [address] Performed By: #### 5 8410-2 #### [facility] CLIA [id number] [address] [place] [address] [place] RBC (Bld) [#/Vol] 3.73 10*6/uL Low 3.90-5.20 [facility] Comment on above: Order Comment: Speci men Type: BLOOD SPECIMEN Ordering Facility: [facility] Address: [address] [place] [address] Performed By: #### 5 8410-2 #### [facility] CLIA [id number] [address] [place] [address] [place] WBC (Bld) [#/Vol] 7.22 10*3/uL Normal 3.70-11.00 [facility] Comment on above: Order Comment: Speci men Type: BLOOD SPECIMEN Ordering Facility: [facility] Address: [address] [place] [address] Performed By: #### 5 8410-2 #### [facility] CLIA [id number] [address] [id number] [place] CONSULTon 06-07-2022 CONSULT HNO ID: [id number] Author: Vicky Whaley MD Service: Gastroenterology Author Type: Physician Type: Consults Filed: 06/07/2022 9:12 AM Note Text: Gastroenterology Consult Note PATIENT NAME: Julieth Spencer SERVICE DATE: 06/07/2022 SERVICE TIME: 9:09 AM REASON FOR CONSULT: Chronic pancreatitis with abdominal pain REFERRING PHYSICIAN:Soraida Steinberg MD ASSESSMENT and PLAN: Chronic pancreatitis with abdominal pain>>> check lipase. Clear liquids. Analgesia. IV fluids. Reviewed with patient. SUBJECTIVE Ms. Spencer is a 36 year old female who presents for evaluation management of abdominal pain. She has a history of chronic pancreatitis possibly autoimmune in nature secondary to her underlying IBD. She underwent ERCP and EUS 1 day ago with stent placement. She states that after the procedure, like previous procedures, her chronic pain flared and was admitted for observation. She had received Dilaudid overnight as she states this is the only thing that works for her. She states that her pain is significant just like previous episodes of pancreatitis. She is not hungry. No fever no chills. He is passing flatus and reports having a bowel movement. Her procedure findings were reviewed with her. PAST MEDICAL HISTORY: No past medical history on file. 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 History of multiple ERCPs and EUS. Chronic pain syndrome, anxiety. Diabetes. PAST SURGICAL HISTORY: No past surgical history on file. FAMILY HISTORY: FAMILY HISTORY Problem Relation Age of Onset Colon Polyps No Family History Colon Cancer No Family History SOCIAL HISTORY: Social History Tobacco Use Smoking status: Former Smokeless tobacco: Never Vaping Use Vaping Use: Former Substance Use Topics Alcohol use: Yes MEDICATIONS: Prior to Admission Medications: tprypy-baigqufp-efznxhn (CREON) 36,000-114,000- 180,000 unit delayed release capsule, Take 1 capsule by mouth three times daily before meals., Disp: , Rfl: , 06/05/2022 at 2200 DULoxetine (CYMBALTA) 60 mg capsule, Take 60 mg by mouth once daily., Disp: , Rfl: , 06/05/2022 at 0800 gabapentin (NEURONTIN) 800 mg tablet, Take 800 mg by mouth three times daily., Disp: , Rfl: , 06/05/[address] (PROTONIX) 40 mg tablet, Take 40 mg by mouth once daily., Disp: , Rfl: , 06/05/2022 at 0800 sucralfate (CARAFATE) 1 gram tablet, Take 1 g by mouth four times daily., Disp: , Rfl: , 06/05/2022 promethazine (PHENERGAN) 25 mg tablet, Take 25 mg by mouth every 6 hours as needed., Disp: , Rfl: 0, 06/05/2022 acetaminophen (TYLENOL) 325 mg tablet, Take 2 tablets by mouth every 6 hours as needed (Temp greater than 38.5C)., Disp: 90 tablet, Rfl: 3, 06/05/2022 at 2200 busPIRone (BUSPAR) 10 mg tablet, Take 10 mg by mouth twice daily., Disp: , Rfl: traZODone (DESYREL) 100 mg tablet, Take 100 mg by mouth daily at bedtime., Disp: , Rfl: adalimumab (HUMIRA) 40 mg/0.8 mL injection, Inject 0.8 mL subcutaneously every 2 weeks., Disp: 2 Each, Rfl: 2, 05/08/2022 cyanocobalamin, vitamin B-12, 3,000 mcg cap, Take 1 capsule by mouth once every month., Disp: , Rfl: , 05/30/2022 cholecalciferol (VITAMIN D3) 1,000 unit tab tablet, Take 1,000 Units by mouth once daily., Disp: , Rfl: , 05/30/2022 doxycycline monohydrate (MONODOX) 100 mg capsule, Take 1 capsule by mouth q 12 HR., Disp: , Rfl: , Unknown BAQSIMI 3 mg/actuation nasal spray, Use 1 [place] in the nose as needed., Disp: , Rfl: , Unknown insulin glargine (LANTUS SOLOSTAR, BASAGLAR KWIKPEN) 100 unit/mL (3 mL), Inject 20 Units subcutaneously q 24 HR., Disp: , Rfl: , Unknown oxyCODONE IR (ROXICODONE) 5 mg immediate release tablet, Take 5 mg by mouth as needed., Disp: , Rfl: hyoscyamine SR (LEVBID) 0.375 mg 12 hr tablet, Take 1 tablet by mouth q 12 HR. (Patient not taking: No sig reported), Disp: 200 tablet, Rfl: 5, Unknown Current Facility-Administered Medications Medication Dose Route Frequency ondansetron 4 mg tab(s) (ZOFRAN) 4 mg ORAL q 6 H PRN Or ondansetron (PF) 4 mg injection (ZOFRAN) 4 mg INTRAVENOUS q 6 H PRN prochlorperazine 10 mg injection (COMPAZINE) 10 mg INTRAVENOUS q 6 H PRN hydrALAZINE 5 mg injection (APRESOLINE) 5 mg INTRAVENOUS PRN acetaminophen 650 mg tab(s) (TYLENOL) 650 mg ORAL q 6 H PRN sucralfate 1 g tab(s) (CARAFATE) 1 g ORAL QID gabapentin 800 mg cap(s) (NEURONTIN) 800 mg [address] TID [address] 40 mg tab(s) (PROTONIX) 40 mg ORAL DAILY (6 AM) DULoxetine 60 mg cap(s) (CYMBALTA) 60 mg ORAL DAILY NaCl 0.9% iv flush bag 20 mL INTRAVENOUS PRN sodium chloride 0.9 % (flush) 3-5 mL (BD POSIFLUSH) 3-5 mL INTRAVENOUS q 12 H aluminum-magnesium hydroxide-simethicone 200-200-20 mg/5 mL 30 mL (MAALOX,MYLANTA,MAG-AL PLUS) 30 mL ORAL DAILY PRN dextrose 40 % 15 g 15 g ORAL PRN Or glucagon 1 mg injection 1 mg INTRAMUSCULAR PRN Or dextrose 10% iv bolus 12.5 g INTRAVENOUS PRN prom (more content not included)... Normal [facility] Comprehensive metabolic 2000 panelon 06-07-2022 Albumin [Mass/Vol] 3.2 g/dL Low 3.9-4.9 [facility] Comment on above: Order Comment: Speci men Type: BLOOD SPECIMEN Ordering Facility: [facility] Address: [address] Performed By: #### 3 040-3, 67484-0 #### [facility] CLIA [id number] [address] [place] [address] [place] ALP [Catalytic activity/Vol] 72 U/L Normal 34-123 [facility] Comment on above: Order Comment: Speci men Type: BLOOD SPECIMEN Ordering Facility: [facility] Address: [address] [address] Performed By: #### 3 040-3, #### [facility] CLIA [id number] [address] [place] [address] [place] ALT [Catalytic activity/Vol] 14 U/L Normal 7-38 [facility] Comment on above: Order Comment: Speci men Type: BLOOD SPECIMEN Ordering Facility: [facility] Address: [facility] [address] [address] Performed By: #### 3 -3, #### [facility] CLIA [id number] [address] [place] [address] [place] Anion gap [Moles/Vol] 8 mmol/L Low 9-18 [facility] Comment on above: Order Comment: Speci men Type: BLOOD SPECIMEN Ordering Facility: [facility] Address: [facility] [address] [address] Performed By: #### 3 -3, #### [facility] CLIA [id number] [address] [place] [address] [place] AST [Catalytic activity/Vol] 18 U/L Normal 13-35 [facility] Comment on above: Order Comment: Speci men Type: BLOOD SPECIMEN Ordering Facility: [facility] Address: [facility] [address] [address] Performed By: #### 3 040-3, 38643-4 #### [facility] CLIA [id number] [address] [place] [address] [place] Bilirubin [Mass/Vol] 0.2 mg/dL Normal 0.2-1.3 [facility] Comment on above: Order Comment: Speci men Type: BLOOD SPECIMEN Ordering Facility: [facility] Address: [address] Performed By: #### 3 040-3, 74097-3 #### [facility] CLIA [id number] [address] [place] [address] [place] Calcium [Mass/Vol] 8.4 mg/dL Low 8.5-10.2 [facility] Comment on above: Order Comment: Speci men Type: BLOOD SPECIMEN Ordering Facility: [facility] Address[address] [address] Performed By: #### 3 040-3, #### [facility] CLIA [id number] [address] [place] [address] [place] Chloride [Moles/Vol] 107 mmol/L High 97-105 [facility] Comment on above: Order Comment: Speci men Type: BLOOD SPECIMEN Ordering Facility: [facility] Address: [address] Performed By: #### 3 040-3, 08730-0 #### [facility] CLIA [id number] [address] [place] [address] [place] CO2 [Moles/Vol] 21 mmol/L Low 22-30 [facility] Comment on above: Order Comment: Speci men Type: BLOOD SPECIMEN Ordering Facility: [facility] Address: [address] Performed By: #### 3 040-3, 23895-7 #### [facility] CLIA [id number] [address] [place] [address] [place] Creatinine [Mass/Vol] 0.57 mg/dL Low 0.58-0.96 [facility] Comment on above: Order Comment: Speci men Type: BLOOD SPECIMEN Ordering Facility: [facility] Address: [address] Performed By: #### 3 040-3, 29970-6 #### [facility] CLIA [id number] [address] [place] [address] [place] ESTIMATED GLOMERULAR FILTRATION RATE 122 mL/min/1.73m??? Normal >=60 [facility] Comment on above: Order Comment: Agata adkins Type: BLOOD SPECIMEN Ordering Facility: [facility] Address: [address] [place] [address] Result Comment: [facility] Glomerular Filtration Rate (eGFR) is calculated using the 2020 CKD-EPI creatinine equation. This equation utilizes serum creatinine, sex, and age as parameters. The creatinine assay has traceable calibration to isotope dilution-mass spectrometry. Refer to KDIGO guidelines for clinical interpretation. In patients with unstable renal function, e.g. those with acute kidney injury, the eGFR may not accurately reflect actual GFR. Performed By: #### 3 040-3, 56848-0 #### [facility] CLIA [id number] [address] [place] [address] [place] Glucose [Mass/Vol] 105 mg/dL High 74-99 [facility] Comment on above: Order Comment: Agata adkins Type: BLOOD SPECIMEN Ordering Facility: [facility] Address: [address] [place] [address] Result Comment: The [place] [employer] (ADA) provides guidance for cutoff values for fasting glucose and random glucose. The ADA defines fasting as no caloric intake for at least 8 hours. Fasting plasma glucose results between 100 to 125 mg/dL indicate increased risk for diabetes (prediabetes). Fasting plasma glucose results greater than or equal to 126 mg/dL meet the criteria for diagnosis of diabetes. In the absence of unequivocal hyperglycemia, results should be confirmed by repeat testing. In a patient with classic symptoms of hyperglycemia or hyperglycemic crisis, random plasma glucose results greater than or equal to 200 mg/dL meet the criteria for diagnosis of diabetes. Reference: Standards of Medical Care in Diabetes 2016, [place] [employer]. Diabetes Care. 2016.39(Suppl 1). Performed By: #### 3 040-3, 15477-8 #### [facility] CLIA [id number] [address] [place] [address] [place] Potassium [Moles/Vol] 4.1 mmol/L Normal 3.7-5.1 [facility] Comment on above: Order Comment: Speci men Type: BLOOD SPECIMEN Ordering Facility: [facility] Address: [facility] [address] Performed By: #### 3 040-3, 29568-0 #### [facility] CLIA [id number] [address] [place] [address] [place] Protein [Mass/Vol] 6.0 g/dL Low 6.3-8.0 [facility] Comment on above: Order Comment: Speci men Type: BLOOD SPECIMEN Ordering Facility: [facility] Address: [address] [place] [address] Performed By: #### 3 040-3, 62905-2 #### [facility] CLIA [id number] [address] [place] [address] [place] Sodium [Moles/Vol] 136 mmol/L Normal 136-144 [facility] Comment on above: Order Comment: Speci men Type: BLOOD SPECIMEN Ordering Facility: [facility] Address: [address] [place] [address] Performed By: #### 3 040-3, 17082-9 #### [facility] CLIA [id number] [address] [place] [address] [place] Urea nitrogen [Mass/Vol] 12 mg/dL Normal 7-21 [facility] Comment on above: Order Comment: Speci men Type: BLOOD SPECIMEN Ordering Facility: [facility] Address: [address] [place], [place] [address] Performed By: #### 3 040-3, 22351-2 #### [facility] CLIA [id number] [address] [place] [address] [place] Lipase SerPl-cCncon 06-07-20 22 Lipase [Catalytic activity/Vol] 4 U/L Low 16-61 [facility] Comment on above: Order Comment: Speci men Type: BLOOD SPECIMEN Ordering Facility: [facility] Address: [address] [place], [place] [address] Performed By: #### 3 040-3, 18513-1 #### [facility] [id number] [address] [facility] NURSING PROGon 06-07-2022 NURSING PROG HNO ID: [id number] Author: Ligia Britton RN Service: Nursing Author Type: Registered Nurse Type: Nursing Progress Note Filed: 06/08/2022 12:20 AM Note Text: Other: 1900 Assumed care of patient 2012 Pt. Assessed per flow sheet. Pt. AANDOx3 currently not complaining of SOB, chest pain or discomfort. IVF infusing. Pt. States extreme pain and medicated per NOV. Pt has no other needs at this time. Call light within reach. Bed locked and in lowest position. Bed alarm on and functioning. Will continue to monitor. 0005 Prior assessment unchanged. Pt. Resting comfortably not showing any signs of SOB, chest pain or discomfort. Pt has no other needs at this time. Call light within reach. Bed locked and in lowest position. Bed alarm on and functioning. Will continue to monitor. [facility] NURSING PROG HNO ID: [id number] Author: Mckayla Perez RN Service: Nursing Author Type: Registered Nurse Type: Nursing Progress Note Filed: 06/07/2022 10:01 AM Note Text: Other: Daily note: 0854: Assessment done, see flowsheet. Patient is awake and alert x 3. Patient reports pain and nausea, patient medicated. Patient's IV is patent and infusing. Patient's abdomen is tender. Patient's lung sounds are clear. Patient denies any further needs at this time. Call light is within reach. [facility] NUTRITIONon 06-07-2022 NUTRITION HNO ID: [id number] Author: Lupis Sanchez RD Service: Nutrition Therapy Author Type: Registered Dietitian Type: Nutrition Filed: 06/07/2022 11:50 AM Note Text: NUTRITION THERAPY INITIAL ASSESSMENT SERVICE DATE: 06/07/2022 SERVICE TIME: 1130 Nutrition Assessment: Recommended Malnutrition Diagnosis: Moderate Protein-Calorie Malnutrition In the context of: Acute Illness or Injury Based on: Insufficient Energy Intake;Unintentional Weight Loss Nutrition Diagnosis: Problem: Suboptimal protein/energy intake Related to: Altered GI function As evidenced by: Medical condition;Patient/family self-report;Weight loss;Intake records Estimated kilocalorie needs: 7263-6532 Calorie Calculation Method: 30-35 kcals/kg Estimated protein needs (grams): 54-68g Grams protein determined by: 1.2 - 1.5 g/kg Care Plan: Follow for diet advancement to goal Supplements: Ensure Clear Vitamins and Minerals: Multivitamin with minerals Monitor and Evaluation: Meet greater than 75% of estimated needs;Monitor fluid/electrolyte balance;Monitor labs, I/Os, vital signs, weight Discharge Recommendations: Diet;Oral Supplements Diet: Regular (Low Fat as needed) Oral Supplements: as needed HPI: IBD, Crohn's disease, chronic pancreatitis, DM type I, GERD, anxiety/depression Admitted for severe abdominal pain, N/V/D. Chronic pancreatitis, s/p ERCP and stent, poor pain control The patient reports having intermittent flare ups of N/V/D and abdominal pain due to underlying medical issues. She is currently not able to eat or tolerate anything. She has started to lose weight again. Pain is also poorly controlled. She will drink Ensure/Boost during her hospital stays (orders placed) - Diet to advance per MD. Suggest Low Fat Diet RD to follow diet advancement, PO intake, weight trend and need for further nutrition interventions. Intake History: Nutrition Intake Prior to Admission: Less than 75% estimated energy needs greater than 7 days Current Nutrition Intake: 0-25% estimated energy needs Diet Orders (From admission, onward) Start Ordered 06/07/22 1000 DIET LIQUID START NOW Question: Liquid Diet Answer: CLEAR LIQUID 06/07/22 0952 Anthropometrics: Height: 160 cm (5' 3 ) Weight: 45.4 kg (100 lb) Dosing Weight: 45.4 kg (100 lb 1.4 oz) (Bed) Usual Weight: (The patient did not state a UBW but claims that she has lost 40lbs x 6-7 months) Usual Weight Obtained From: Patient Body mass index is 17.71 kg/m?. Underweight Weight change percentage over time: Recent weight records are limited. It appears the patient has lost 4kg (8%) x 2 months. Note 5% in the past month Physical Exam: Subcutaneous fat loss: No fat loss Muscle loss: No muscle loss Potential micronutrient deficiency: No deficiency identified Edema/Ascites: No edema GI Symptoms: Nausea;Vomiting;Diarrhea ;Abdominal pain Stool Amount: (N/A. 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) Functional Status: Unable to assess Potential Signs of Inflammation: Hyperglycemia;Hypoalbumi nemia;Chronic condition;Imaging studies Type I DM, crohn's disease MNT Billing: $ Initial Assessment: 1-15 minutes SIGNATURE: Lupis Sanchez RD PATIENT NAME: Julieth Spencer DATE: June 07, 2022 TIME: 11:45 AM Normal [facility] ANES POSTPROC EVALon 022 ANES POSTPROC EVAL HNO ID: [id number] Author: Yolie Bailey MD Service: Anesthesiology Author Type: Physician Type: Anesthesia Postprocedure Evaluation Filed: 06/06/2022 3:27 PM Note Text: POST ANESTHESIA EVALUATION NOTE : 1985 Procedure Summary Date: 06/06/22 Room / Location: [facility] Anesthesia Start: 09 Anesthesia Stop: 110 Procedures: EGD - THERAPEUTIC, EUS, OR TUBE INTERVENTIONS ERCP Diagnosis: Other chronic pancreatitis (HCC) Other chronic pancreatitis (HCC) S/P ERCP (Suspected chronic pancreatitis) (Abdominal pain of suspected biliary or pancreatic origin) Scheduled Providers: Vicky Whaley MD Responsible Provider: Yolie Bailey MD Anesthesia Type: general ASA Status: 2 Anesthesia Type: general Airway Type: ETT Last Vitals Vitals Value Taken Time BP 144/82 06/06/22 1215 Temp 36.4 ?C (97.5 ?F) 06/06/22 1200 Pulse 46 06/06/22 1222 Resp 23 06/06/22 1222 SpO2 100 % 06/06/22 1222 Vitals shown include unvalidated device data. Post Anesthesia Patient Status Patient Evaluation: PACU. PACU/ICU Patient Condition: stable. Neurological Status: aware and responsive. Pulmonary Status: breathing comfortably on supplemental oxygen Airway Control: returned to baseline unsupported. Cardiovascular Status: stable. Pain Management: clinically adequate Postoperative Hydration: acceptable. Intraoperative Events: no significant anesthesia events Post Operative Nausea/Vomiting Status: no significant post operative nausea or vomiting Anesthetic Observations: Recommendation: continue current plan of care. Anesthesia Observations No Documentation SIGNATURE: Yolie Bailey MD PATIENT NAME: Julieth Spencer DATE: June 06, 2022 TIME: 3:27 PM CSN: [id number] Normal [facility] ANES PRE-OPon 06-06-2022 ANES PRE-OP HNO ID: [id number] Author: Yolie Bailey MD Service: Anesthesiology Author Type: Physician Type: Anesthesia Preprocedure Evaluation Filed: 06/06/2022 9:35 AM Note Text: ANESTHESIOLOGY DAY OF SURGERY NOTE : 1985 Procedure Information Date/Time: 06/06/22914 Scheduled providers: Vikcy Whaley MD Procedures: EGD - THERAPEUTIC, EUS, OR TUBE INTERVENTIONS ERCP Location: [facility] Estimated body mass index is 18.6 kg/m? as calculated from the following: Height as of 05/10/22: 160 cm (5' 3 ). Weight as of 05/10/22: 47.6 kg (105 lb). 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 Tracheostomy tube not present Mallampati: II. TM distance: >3 FB. Neck ROM: full ROM without neurological symptoms. Mouth opening: adequate. Short neck: no. Thick neck: no DENTAL Dental findings: teeth intact and missing tooth/teeth. II - ANESTHESIA PLAN ASA Score: 2 Anesthetic Plan: general Airway type: ETT The patient is not a current smoker. NPO Status: adequate Beta Natacha Administration of chronic beta natacha medication not planned. Monitoring plan: standard ASA. Postoperative analgesic plan: parenteral or oral opioids. Informed Consent Anesthetic risks, benefits, alternatives, personnel and consent discussed: yes. Patient / Responsible Green Party agrees to proceed: yes Patient / Surrogate agrees to blood products: Yes DNR status not reviewed with patient and/or family prior to surgery. Significant changes in the patient condition since the History and Physical, not otherwise documented in primary service progress note: no. Potential Anesthesia issues that may suggest increased risk of complications or contraindication to planned procedure: none. Vitals Value Taken Time BP 111/75 06/06/22 0820 Pulse 66 06/06/22 0820 Resp 16 06/06/22 0820 Temp 36.9 ?C (98.4 ?F) 06/06/22 0820 SpO2 100 % 06/06/22 0820 Outpatient Medications as of 06/06/2022 Medication Sig - uuzcdr-wmcttqrh-pmednnf (CREON) 36,000-114,000- 180,000 unit delayed release capsule Take 1 capsule by mouth three times daily before meals. - DULoxetine (CYMBALTA) 60 mg capsule Take 60 mg by mouth once daily. - gabapentin (NEURONTIN) 800 mg tablet Take 800 mg by mouth three times daily. - pantoprazole DR (PROTONIX) 40 mg tablet Take 40 mg by mouth once daily. - sucralfate (CARAFATE) 1 gram tablet Take 1 g by mouth four times daily. - promethazine (PHENERGAN) 25 mg tablet Take 25 mg by mouth every 6 hours as needed. - acetaminophen (TYLENOL) 325 mg tablet Take 2 tablets by mouth every 6 hours as needed (Temp greater than 38.5C). - adalimumab (HUMIRA) 40 mg/0.8 mL injection Inject 0.8 mL subcutaneously every 2 weeks. - cyanocobalamin, vitamin B-12, 3,000 mcg cap Take 1 capsule by mouth once every month. - cholecalciferol (VITAMIN D3) 1,000 unit tab tablet Take 1,000 Units by mouth once daily. - doxycycline monohydrate (MONODOX) 100 mg capsule Take 1 capsule by mouth q 12 HR. - BAQSIMI 3 mg/actuation nasal spray Use 1 [place] in the nose as needed. - insulin glargine (LANTUS SOLOSTAR, BASAGLAR KWIKPEN) 100 unit/mL (3 mL) Inject 20 Units subcutaneously q 24 HR. - oxyCODONE IR (ROXICODONE) 5 mg immediate release tablet Take 5 mg by mouth as needed. - hyoscyamine SR (LEVBID) 0.375 mg 12 hr tablet Take 1 tablet by mouth q 12 HR. (Patient not taking: No sig reported) Facility-Administered Medications as of 06/06/2022 Medication Dose Route Frequency - cefOXitin 2 g in NaCl 0.9% 100 mL Vial-Bag (MEFOXIN) 2 g INTRAVENOUS ONCE I have interviewed and examined the patient. I have reviewed the medical record and/or the pre-anesthesia evaluation, pertinent labs, and test results. This contains updated information obtained within 48 hours of Surgery/Procedure. SIGNATURE: Yolie Bailey MD PATIENT NAME: Julieth Spencer DATE: June 06, 2022 TIME: 9:31 AM CSN: [id number] Normal [facility] ERCPon 06-06-2022 ERCP [facility] Gastrointestinal Endoscopy Patient Name: Julieth Spencer Procedure Date: 06/06/2022 10:27 AM Date of : 1985 Admit Type: Outpatient Age: 36 Room: [address] Gender: Female Note Status: Finalized Attending MD: Vicky Whaley MD Procedure: ERCP Indications: Abdominal pain of suspected biliary or pancreatic origin, Abnormal hepatobiliary scintigraphy>>? SOD, Chronic pancreatitis Providers: Vicky Whaley MD Patient Profile: This is a 36 year old female. Refer to note in patient chart for documentation of history and physical. Referring Physician: Vicky Whaley MD (Referring MD) Medicines: General Anesthesia, Cefoxitin 2 G, Indomethacin 100 mg IN Complications: No immediate complications. Requesting Provider: Procedure: Pre-Anesthesia Assessment: - Prior to the procedure, a History and Physical was performed, and patient medications and allergies were reviewed. The patient's tolerance of previous anesthesia was also reviewed. The risks and benefits of the procedure and the sedation options and risks were discussed with the patient. All questions were answered, and informed consent was obtained. Prior Anticoagulants: The patient has taken no previous anticoagulant or antiplatelet agents. ASA Grade Assessment: III - A patient with severe systemic disease. After reviewing the risks and benefits, the patient was deemed in satisfactory condition to undergo the procedure. After obtaining informed consent, the scope was passed under direct vision. Throughout the procedure, the patient's blood pressure, pulse, and oxygen saturations were monitored continuously. The ERCP was introduced through the mouth, and advanced to the duodenum and used to cannulate the bile duct. I was present and participated during the entire procedure, including non-blount portions, and during the administration and monitoring of Moderate Sedation. The ERCP was accomplished without difficulty. The patient tolerated the procedure well. Moderate Sedation: General Anesthesia Total Procedure Duration: 0 hours 15 minutes 24 seconds Findings: A project engineering manager film of the abdomen was obtained. Surgical clips, consistent with a previous cholecystectomy, were seen in the area of the right upper quadrant of the abdomen. The scope was advanced the major papilla in the descending duodenum. Examination of the upper GI tract showed retained food in the body/fundus. A biliary sphincterotomy had been performed. The sphincterotomy appeared open. The bile duct was gently and then deeply cannulated with the short-nosed traction sphincterotome which was then exchanged for a balloon. Contrast was injected. I personally interpreted the bile duct images. Ductal flow of contrast was adequate. Image quality was adequate. Contrast extended to the entire biliary tree. A cholecystectomy had been performed. The entire biliary tree was mildly dilated with tapering down to the papilla. Placement of Revolution--0.025 inch into the biliary tree was attempted. This passed successfully. Balloon injection showed no filling defects, leaks, or strictures. Note, there was relatively poor/slow drainage of contrast. One 10 Fr by 7 cm biliary stent with a single external flap and a single internal flap was placed into the bile duct. Bile flowed through the stent. The stent was in good position. Good drainage seen. The superior portion of the papilla was biopsied with a cold forceps for histology for IgG 4 stain. Care made to avoid the pancreatic duct orifice. No attempt was made to instrument the pancreatic duct. Impression: 1. Previous biliary sphincterotomy appeared open but drainage was slow/poor>>stented. 2. Previous cholecystectomy. 3. biopsy of the major papilla performed>>>IgG 4 stain. Care made to avoid the pancreatic duct orifice. No attempt was made to instrument the pancreatic duct. Recommendation: 1. Await path results. 2. Update Dr Whaley in 4 weeks with symptoms. If not improved at all will bring back for repeat EUS with possible panceatic biospy. If improves>>will repeat ERCP in months for stent removal and possibe extension sphincterotomy. Procedure Code(s): --- Professional --- 44049, Endoscopic retrograde cholangiopancreatography (ERCP); with placement of endoscopic stent into biliary or pancreatic duct, including pre- and post-dilation and guide wire passage, when performed, including sphincterotomy, when performed, each stent CPT copyright 2019 [employer]. All rights reserved. The codes documented in this report are preliminary and upon warehouse receiving clerk review may be revised to meet current compliance requirements. Attending Participation: I personally performed the entire procedure. Scope In: 10:29:39 AM Scope Out: 10:45:03 AM MD Vicky Esteban MD (more content not included)... Normal [facility] HISTORY PHYSICALon HISTORY PHYSICAL HNO ID: [id number] Author: Marita Oates MD Service: Hospital Medicine Author Type: Physician Type: HANDP Filed: 06/06/2022 8:58 PM Note Text: DEPARTMENT OF HOSPITAL MEDICINE HISTORY AND PHYSICAL EXAM SERVICE DATE: 06/06/2022 Code Status: Not on file SERVICE TIME: 4:47 PM Primary Care Physician: Nat Medina, DO NIGHT AND WEEKEND COVERAGE: [facility] COVERAGE: Patient admitted to [facility] From 07 - [phone], please contact pager [phone] for patient issues. From 163 - [phone], please contact the Night Hospitalist on pager [phone] for patient issues. Subjective CHIEF COMPLAINT: HPI: This is a 36 year old female with PMH of IBD, chronic pancreatitis, chronic pain diabetes type 1, smoking, GERD, anxiety/depression, s/p cholecystectomy who was admitted post ERCP for abdominal pain control. Patient underwent ERCP today which showed-->Previous biliary sphincterotomy appeared open but drainage was slow/poor>>stented And also biopsy of major papilla performed. She was admitted for pain control after ERCP. Patient complaining of severe abdominal pain and nausea. she states she usually needs pain medication pump after ERCP. Denies chest pain shortness of breath, fever chills, diarrhea, past medical history : DM type I, GERD, chronic pancreatitis, Crohn's disease, depression anxiety past surgical history : Cholecystectomy FAMILY HISTORY Problem Relation Age of Onset Colon Polyps No Family History Colon Cancer No Family History Social History Tobacco Use Smoking status: Former Smokeless tobacco: Never Vaping Use Vaping Use: Former Substance Use Topics Alcohol use: Yes PRIOR TO ADMISSION MEDICATIONS: hrdkjn-dzlgshbw-pattcah (CREON) 36,000-114,000- 180,000 unit delayed release capsule, Take 1 capsule by mouth three times daily before meals., Disp: , Rfl: , 06/05/2022 at 2200 DULoxetine (CYMBALTA) 60 mg capsule, Take 60 mg by mouth once daily., Disp: , Rfl: , 06/05/2022 at 0800 gabapentin (NEURONTIN) 800 mg tablet, Take 800 mg by mouth three times daily., Disp: , Rfl: , 06/05/[address] (PROTONIX) 40 mg tablet, Take 40 mg by mouth once daily., Disp: , Rfl: , 06/05/2022 at 0800 sucralfate (CARAFATE) 1 gram tablet, Take 1 g by mouth four times daily., Disp: , Rfl: , 06/05/2022 promethazine (PHENERGAN) 25 mg tablet, Take 25 mg by mouth every 6 hours as needed., Disp: , Rfl: 0, 06/05/2022 acetaminophen (TYLENOL) 325 mg tablet, Take 2 tablets by mouth every 6 hours as needed (Temp greater than 38.5C)., Disp: 90 tablet, Rfl: 3, 06/05/2022 at 2200 busPIRone (BUSPAR) 10 mg tablet, Take 10 mg by mouth twice daily., Disp: , Rfl: adalimumab (HUMIRA) 40 mg/0.8 mL injection, Inject 0.8 mL subcutaneously every 2 weeks., Disp: 2 Each, Rfl: 2, 05/08/2022 cyanocobalamin, vitamin B-12, 3,000 mcg cap, Take 1 capsule by mouth once every month., Disp: , Rfl: , 05/30/2022 cholecalciferol (VITAMIN D3) 1,000 unit tab tablet, Take 1,000 Units by mouth once daily., Disp: , Rfl: , 05/30/2022 doxycycline monohydrate (MONODOX) 100 mg capsule, Take 1 capsule by mouth q 12 HR., Disp: , Rfl: , Unknown BAQSIMI 3 mg/actuation nasal spray, Use 1 [place] in the nose as needed., Disp: , Rfl: , Unknown insulin glargine (LANTUS SOLOSTAR, BASAGLAR KWIKPEN) 100 unit/mL (3 mL), Inject 20 Units subcutaneously q 24 HR., Disp: , Rfl: , Unknown oxyCODONE IR (ROXICODONE) 5 mg immediate release tablet, Take 5 mg by mouth as needed., Disp: , Rfl: hyoscyamine SR (LEVBID) 0.375 mg 12 hr tablet, Take 1 tablet by mouth q 12 HR. (Patient not taking: No sig reported), Disp: 200 tablet, Rfl: 5, Unknown ALLERGIES Allergen Reactions Bactrim [Sulfametho* Rash Morphine Other: See Comments Visual hallucinations REVIEW OF SYSTEM: PAIN ASSESSMENT: Positive for abdominal pain, history of chronic pain, or current treatment for a chronic pain condition. GENERAL: No weight loss, malaise or fevers HEENT: Negative for frequent or significant headaches, No changes in hearing or vision, no nose bleeds or other nasal problems NECK: Negative for lumps, goiter, pain and significant neck swelling RESPIRATORY: Negative for cough, hemoptysis, wheezing, COPD, dyspnea or shortness of breath CARDIOVASCULAR: Negative for chest pain, leg swelling, hypertension, CHF or palpitations GI: Positive for abdominal pain and nausea, vomiting, or diarrhea : No history of dysuria, frequency or incontinence MUSCULOSKELETAL: Negative for joint pain or swelling, back pain or muscle pain SKIN: Negative for lesions, rash, and itching PSYCH: Negative for sleep disturbance, mood disorder and recent psychosocial stressors positive for depression and anxiety HEMATOLOGY/LYMPHOLOGY: Negative for prolonged bleeding, bruising easily or swollen nodes ENDOCRINE: Negative for cold or heat intolerance, polyuria, polydipsia and goiter NEURO: No history of headaches, syncope, paralysis, seizures or tremors Objective PHYS (more content not included)... Normal [facility] HISTORY PHYSICAL HNO ID: [id number] Author: Vicky Whaley MD Service: Gastroenterology Author Type: Physician Type: HANDP Filed: 06/06/2022 9:29 AM Note Text: UPDATED HISTORY AND PHYSICAL EXAMINATION SERVICE DATE: 06/06/2022 SERVICE TIME: 9:28 AM PHYSICAL EXAM MUST BE COMPLETED ON ADMISSION The History and Physical (completed in the past 30 days) has been reviewed and the patient has been examined. The contents accurately reflect the patient's condition with the following additions or revisions since the HANDP was completed. Examination indicates no changes. This HANDP can be found in the 05-10-22. SIGNATURE: Vicky Whaley MD PATIENT NAME: Julieth Spencer DATE: June 06, 2022 TIME: 9:28 AM [facility] NURSING PROGon 06-06-2022 NURSING PROG HNO ID: [id number] Author: Ligia Britton RN Service: Nursing Author Type: Registered Nurse Type: Nursing Progress Note Filed: 06/07/2022 1:00 AM Note Text: Other: 1900 Assumed care of patient 2009 Pt. Assessed per flow sheet. Pt. AANDOx3 currently not complaining of SOB, chest pain or discomfort. Pt. States extreme pain and medicated per NOV. Pt has no other needs at this time. Call light within reach. Bed locked and in lowest position. Bed alarm on and functioning. Will continue to monitor. 2108 Hospitalist spoke with patient about pain management. 49 Pt. Self administration packet was not properly filled out. Policy attachments were given to patient. Paperwork placed in chart. Pt. Basal insulin at .3units an hour. Pt. States 1 unit bolus given when pt. Given blood glucose. 56 Prior assessment unchanged. Pt. Resting comfortably not showing any signs of SOB, chest pain or discomfort. Pt has no other needs at this time. Call light within reach. Bed locked and in lowest position. Bed alarm on and functioning. Will continue to monitor. Normal [facility] NURSING PROG HNO ID: [id number] Author: Mckayla Perez RN Service: Nursing Author Type: Registered Nurse Type: Nursing Progress Note Filed: 06/06/2022 2:54 PM Note Text: Other: 1442: Patient arrived on unit from PACU. Patient's IV is patent. Patient denies pain at this time. Patient's vital signs stable. Patient denies any further needs at this time. Call light is within reach. Normal [facility] SARS-CoV-2 RNA Resp Ql DESIRE+p robeon 06-06-2022 SARS-CoV-2 (COVID-19) RNA DESIRE+probe Ql (Resp) SARS-CoV-2 (Agent of COVID-19) Not Detected by RT-PCR or equivalent method. Normal Not Detected [facility] Comment on above: Order Comment: Agata adkins Type: SWAB OF INTERNAL NOSE Ordering Facility: [facility] Address: [address] [place] [address] Result Comment: This test has been authorized by FDA under an Emergency Use Authorization (EUA). Performed By: #### 9 [id number] #### [facility] CLIA [id number] [address] [place] [address] [place] SURGICAL PATHOLOGYon 022 ADDENDUM 1: Normal [facility] Comment on above: Order Comment: Agata adkins Type: TISSUE SPECIMENOrdering Facility: [facility] Address: [address] [place] [phone] Result Comment: At t he request of the clinical team, immunohistochemical stains for IgG and IgG4 were performed on block A1. The IgG4 immunostain highlights only rare (less than 1 per high-power field), singly dispersed IgG4-positive plasma cells. The ratio of IgG4-positive to IgG-positive plasma cells is not increased. Laboratory Developed Test (LDT) Disclaimer: Performance characteristics of immunohistochemical, immunofluorescent and chromogenic in-situ hybridization tests have been determined by the performing laboratory within [facility]???s [facility] [place] ([facility], [facility], [facility] or [facility]) in a manner consistent with CLIA requirements. One or more of these tests have not been cleared or approved by the FDA. [facility] is regulated under CLIA as qualified to perform high-complexity testing. These tests are used for clinical purposes. They should not be regarded as investigational or for research. Positive and negative controls stain appropriately. Addendum electronically signed by Omar Linton MD on 06/08/2022 at 8:15 AM Performed By: #### S ####[facility] LABIA [id number] [address] CASE REPORT Normal [facility] Comment on above: Order Comment: Speci men Type: TISSUE SPECIMENOrdering Facility: [facility] Address: [address] [place] [phone] Result Comment: Surg [facility] Pathology Report Case: [id number] Authorizing Provider: Vicky Whaley MD Collected: 06/06/2022 10:43 AM Ordering Location: [facility] Received: 06/06/2022 11:51 AM Surgical Services Pathologist: Omar Linton MD Specimen: DUODENUM BIOPSY, Major Papilla Performed By: #### S ####[facility] LABIA [id number] [place] [id number] [facility] FINAL DIAGNOSIS Normal [facility] Comment on above: Order Comment: Speci men Type: TISSUE SPECIMENOrdering Facility: [facility] Address: [address] [place] [phone] Result Comment: A. D uodenum, major papilla, biopsy: - Duodenal mucosa with no diagnostic abnormality. - Immunohistochemical stains for IgG and IgG4 have been ordered and will be reported in an addendum. Performed By: #### S ####[facility] LABCLIA [id number] [address] [place] FINAL PERFORMING LAB [facility] Comment on above: Order Comment: Speci men Type: TISSUE SPECIMENOrdering Facility: [facility] Address: [address] [place] [address] Result Comment: Diag nostic interpretation performed at [place] [address] CLIA# [id number] Configuration Management Manager: Sylvester Rios M.D. Performed By: #### S ####[facility] LABCLIA [id number] [address] [place] GROSS DESCRIPTION [facility] Comment on above: Order Comment: Speci men Type: TISSUE SPECIMENOrdering Facility: [facility] Address: [address] [place] [address] Result Comment: A. D UODENUM BIOPSY Received in formalin are multiple pieces of [place], soft tissue aggregating to 0.8 x 0.2 x 0.2 cm. Totally submitted in one cassette. NMP June 06, 2022 2:46 PM Gross examination performed at [facility], [address] [place] [address] Performed By: #### S ####[facility] LABCLIA [id number] [place] [address] [place] Upper EUSon 06-06-2022 Upper EUS [facility] Gastrointestinal Endoscopy Patient Name: Julieth Spencer Procedure Date: 06/06/2022 9:39 AM Date of : 1985 Admit Type: Outpatient Age: 36 Room: [address] Gender: Female Note Status: Finalized Attending MD: Vicky Whaley MD Procedure: Upper EUS Indications: Suspected chronic pancreatitis of uncertain etiology Comorbidities Crohns disease Providers: Vicky Whaley MD Patient Profile: This is a 36 year old female. Refer to note in patient chart for documentation of history and physical. Referring Physician: Vicky Whaley MD (Referring MD) Medicines: General Anesthesia Complications: No immediate complications. Requesting Provider: Procedure: Pre-Anesthesia Assessment: - Prior to the procedure, a History and Physical was performed, and patient medications and allergies were reviewed. The patient's tolerance of previous anesthesia was also reviewed. The risks and benefits of the procedure and the sedation options and risks were discussed with the patient. All questions were answered, and informed consent was obtained. Prior Anticoagulants: The patient has taken no previous anticoagulant or antiplatelet agents. ASA Grade Assessment: III - A patient with severe systemic disease. After reviewing the risks and benefits, the patient was deemed in satisfactory condition to undergo the procedure. After obtaining informed consent, the endoscope was passed under direct vision. Throughout the procedure, the patient's blood pressure, pulse, and oxygen saturations were monitored continuously. The Endosonoscope was introduced through the mouth, and advanced to the second part of duodenum. I was present and participated during the entire procedure, including non-blount portions, and during the administration and monitoring of Moderate Sedation. The upper EUS was accomplished without difficulty. The patient tolerated the procedure well. Moderate Sedation: General Anesthesia The administration of moderate sedation was initiated. General Anesthesia Total Procedure Duration: 0 hours 12 minutes 0 seconds Findings: ENDOSCOPIC FINDING: : A large amount of food (residue) was found in the gastric body inhibiting adequate views of parts of the pancreas ENDOSONOGRAPHIC FINDING: : Endosonographic imaging of the pancreas showed sonographic changes indicative of moderate-severe chronic pancreatitis in the entire pancreas. The parenchyma had atrophy, hyperechoic foci and lobularity. The pancreatic duct had hyperechoic dean with dilatation in the head to 3.6 mm with tapering out to the papilla. No clear mass was seen. Dense calcifications throughout the gland in patchy distribution with increased dilatation in the body corresponding to an area of dense calcification. CBD dilated to 6 mm with tapering and loss of visualization as in traversed the head. Impression: 1. A large amount of food (residue) in the stomach limiting adequte views. 2. Endosonographic imaging of the pancreas showed sonographic changes consistent with moderate-severe chronic pancreatitis as detailed above. Recommendation: 1. Perform an ERCP as previously scheduled. COMMENT>>Pancreatic biopsy deferred. If biliary stent placement does not result in improvement in pain will bring patient back for reevaluation and possible biopsy as requested. Will need clear liquids 24 hours prior to procedure. Procedure Code(s): --- Professional --- 36092, Esophagogastroduodenosco py, flexible, transoral; with endoscopic ultrasound examination limited to the esophagus, stomach or duodenum, and adjacent structures CPT copyright 2019 [employer]. All rights reserved. The codes documented in this report are preliminary and upon warehouse receiving clerk review may be revised to meet current compliance requirements. Attending Participation: I personally performed the entire procedure. Scope In: 9:54:24 AM Scope Out: 10:06:24 AM MD Vicky Esteban MD 06/06/2022 10:27:07 AM This report has been signed electronically by Vicky Whaley MD Number of Addenda: 0 Note Initiated On: 06/06/2022 9:39 AM Estimated Blood Loss: Estimated blood loss was minimal. 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) Orders Chronic pancreatitis Renew: oxyCODONE HCl - 15 MG Oral Tablet; TAKE 1 TABLET Every 4 hours PRN pain Patient Discussion/Summary - Given the increase in her pain, will trial increase of therapy to oxycodone 15 mg every 4 hours PRN - Will send script to pharmacy - She is planning to move forward with pancreatectomy - Though I anticipate an increase in pain during the perioperative period, she and I are optimistic that this step may allow her to wean off opiates entirely - Follow up in 4 weeks Chief Complaint An interactive audio and video telecommunication system which permits real time communications between the patient (at the originating site) and provider (at the distant site) was utilized to provide this telehealth service. Patient has a follow-up for palliative care today. History of Present Illness Patient seen for exam following chronic pain related to chronic pancreatitis. She feels the pain has worsened somewhat since last visit. She had a few days of success from celiac plexus block, but does not feel it was as helpful as she would like. Since our last visit, she has consulted with an a surgeon who is recommending a pancreatectomy. She is seriously considering going through with it. I have personally reviewed the OARRS report for JULIETH SPENCER. I have considered the risks of abuse, dependence, addiction and diversion. 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) Chronic pancreatitis (577.1) (K86.1) Chronic pancreatitis, unspecified pancreatitis type (577.1) (K86.1) Crohn's disease (555.9) (K50.90) Diarrhea (787.91) (R19.7) DM type 1 (diabetes mellitus, type 1) (250.01) (E10.9) Encounter for pancreatic duct stent exchange (V53.59) (Z46.59) Palliative care encounter (V66.7) (Z51.5) Surgical History Problems History of Cholecystectomy History of Colonoscopy History of Endoscopic retrograde cholangiopancreatography History of Esophagogastroduodenosco py History of Gastrointestinal stent placement Family History Mother No pertinent family history Father No pertinent family history Social History Problems Electronic cigarette use (305.1) (Z78.9) No alcohol use No illicit drug use Allergies Medication Bactrim Recorded By: Gianna Blanchard; 06/29/2021 3:01:33 PM Current Meds Medication NameInstruction busPIRone HCl - 15 MG Oral Tablettake 1 tablet by mouth twice a day Creon [id number] UNIT Oral Capsule Delayed Release ParticlesPlease take 1 capsule with each meal three times a day Creon [id number] UNIT Oral Capsule Delayed Release ParticlesTAKE 1 CAPSULE 3 times daily With meals DULoxetine HCl - 60 MG Oral Capsule Delayed Release Particlestake 1 capsule by mouth every morning Gabapentin 800 MG Oral TabletTAKE 1 TABLET 3 TIMES DAILY. Humira Pen 40 MG/0.4ML Subcutaneous Pen-injector KitINJECT ONE PEN EVERY OTHER WEEK Insulin Lispro 100 UNIT/ML SOLNper insulin pump Loperamide HCl - 2 MG Oral TabletTAKE 2 TABLETS INITIALLY, FOLLOWED BY 1 TABLET AFTER EACH LOOSE BOWEL MOVEMENT. DO NOT EXCEED 8 TABLETS/DAY. oxyCODONE HCl - 5 MG Oral TabletTAKE 1 TABLET Every 4 hours PRN pain Pantoprazole Sodium 40 MG Oral Tablet Delayed Releasetake 1 tablet by mouth once daily Promethazine HCl - 12.5 MG Oral TabletTAKE 1 TABLET Every 6 hours PRN nausea RA Vitamin D-3 25 MCG (1000 UT) Oral Tablettake 1 tablet by mouth once daily Sucralfate 1 GM Oral TabletTAKE 1 TABLET 4 TIMES DAILY, BEFORE MEALS AND AT BEDTIME. traZODone HCl - 100 MG Oral TabletTAKE 2 TABLETS BY MOUTH AT BEDTIME Signatures Electronically signed by : Ramos Parekh MD; May 18 2022 3:10PM EST (Author) Normal [facility] A1C HEMOGLOBINon 05-08-2022 HbA1c (Bld) [Mass fraction] 6.0 % [facility] Other Glucose - FINGER STICKon Glucose [Mass/Vol] 100 mg/dL [facility] Other HbA1c (Bld) [Mass fraction]o n 05-08-2022 A1C HEMOGLOBIN [facility] Other MICROALBUMIN/ CREATININE RAT IOon 05-08-2022 Albumin, Urine <3.0 Normal Not Estab. [facility] Comment on above: Performed By: #### M ALBCRL #### [facility] [address] [address] [address] Louis Britton Albumin/ Creatinine Ratio <3 Normal 0-29 [facility] Comment on above: Result Comment: Norm al: 0 - 29 Moderately increased: 30 - 300 Severely increased: >300 Performed By: #### M ALBCRL #### [facility] [address] [place], [place] [address] Dr. Louis Britton Creatinine, Urine 87.0 mg/dL Normal Not Estab. [facility] Comment on above: Performed By: #### M ALBCRL #### [facility] [address] [place], [place] [address] Dr. Louis Britton LIPID PROFILEon 05-07-2022 CHOL-HDL RATIO NORM SEE BELOW Normal [facility] Comment on above: Result Comment: 3.3 - 4.4 LOW RISK 4.4 - 7.1 AVERAGE RISK 7.1 - 11.0 MODERATE RISK >11.0 HIGH RISK Performed By: #### C MP, LIPID #### [facility] [address] [address] [address] Louis Britton Cholesterol [Mass/Vol] 159 mg/dL Normal <=200 [facility] Comment on above: Performed By: #### C MP, LIPID #### [facility] [address] [address] [address] Louis Britton Cholesterol in HDL [Mass/Vol] 57 mg/dL Normal 40-60 [facility] Comment on above: Performed By: #### C MP, LIPID #### [facility] [address] [address] [address] Louis Britton Cholesterol in LDL [Mass/Vol] 76.6 mg/dL Normal [facility] Comment on above: Performed By: #### C MP, LIPID #### [facility] [address] [address] [address] Louis Britton Cholesterol.total/Cho lesterol in HDL [Mass ratio] 2.8 {ratio} Normal [facility] Comment on above: Performed By: #### C MP, LIPID #### [facility] [address] [place] [address] Dr. Louis Britton HDL NORMAL > or = 60 mg/dl - LO W CARDIOVASCULAR RISK <40 mg/dl - HIGH CARDIOVASCULAR RISK Normal [facility] Comment on above: Performed By: #### C MP, LIPID #### [facility] [address] [address] [address] Louis Britton LDL CALC NORMAL SEE BELOW Normal [facility] Comment on above: Result Comment: <100 mg/dl OPTIMAL 100 - 129 mg/dl NEAR OR ABOVE OPTIMAL 130 - 159 mg/dl BORDERLINE HIGH 160 - 189 mg/dl HIGH >190 mg/dl VERY HIGH Performed By: #### C MP, LIPID #### [facility] [address] [address] [address] Louis Britton Triglyceride [Mass/Vol] 127 mg/dL Normal <=150 [facility] Comment on above: Performed By: #### C MP, LIPID #### [facility] [address] [address] [address] Louis Britton VLDL CALC 25.4 mg/dL Normal [facility] Comment on above: Performed By: #### C MP, LIPID #### [facility] [address] [address] [address] Louis Britton PROF 14(COMP METB)on 022 Albumin [Mass/Vol] 3.1 g/dL Critically low 3.4-5.0 [facility] Comment on above: Performed By: #### C MP, LIPID #### [facility] [address] [address] [address] Louis Britton Albumin/Globulin [Mass ratio] 0.9 {ratio} Normal [facility] Comment on above: Performed By: #### C MP, LIPID #### [facility] [address] [place] [address] Dr. Louis Britton ALP [Catalytic activity/Vol] 66 U/L Normal 46-116 [facility] Comment on above: Performed By: #### C MP, LIPID #### [facility] [address] [address] [address] Louis Britton ALT [Catalytic activity/Vol] 21 U/L Normal 14-59 [facility] Comment on above: Performed By: #### C MP, LIPID #### [facility] [address] [address] [address] Louis Britton Anion gap [Moles/Vol] 9.5 mmol/L Normal [facility] Comment on above: Performed By: #### C MP, LIPID #### [facility] [address] [address] [address] Louis Britton AST [Catalytic activity/Vol] 28 U/L Normal 15-37 [facility] Comment on above: Performed By: #### C MP, LIPID #### [facility] [address] [address] [address] Louis Britton Bilirubin [Mass/Vol] 0.4 mg/dL Normal 0.2-1.0 [facility] Comment on above: Performed By: #### C MP, LIPID #### [facility] [address] [address] [address] Louis Britton Calcium [Mass/Vol] 8.6 mg/dL Normal 8.5-10.1 [facility] Comment on above: Performed By: #### C MP, LIPID #### [facility] [address] [address] [address] Louis Britton Chloride [Moles/Vol] 104 mmol/L Normal 98-107 [facility] Comment on above: Performed By: #### C MP, LIPID #### [facility] [address] [address] [address] Louis Britton CO2 [Moles/Vol] 28.8 mmol/L Normal 21.0-32.0 [facility] Comment on above: Performed By: #### C MP, LIPID #### [facility] [address] [address] [address] Louis Britton Creatinine [Mass/Vol] 0.79 mg/dL Normal 0.55-1.02 [facility] Comment on above: Performed By: #### C MP, LIPID #### [facility] [address] [place] [address] Dr. Louis Britton EGFR-AF BULGARIAN >60 Normal >=60 [facility] Comment on above: Performed By: #### C MP, LIPID #### [facility] [address] [address] [address] Louis Britton EGFR-NON AF BULGARIAN >60 Normal >=60 [facility] Comment on above: Performed By: #### C MP, LIPID #### [facility] [address] [address] [address] Louis Britton Globulin (S) [Mass/Vol] 3.5 g/dL Normal [facility] Comment on above: Performed By: #### C MP, LIPID #### [facility] [address] [address] [address] Louis Britton Glucose [Mass/Vol] 158 mg/dL Critically high 74-106 [facility] Comment on above: Performed By: #### C MP, LIPID #### [facility] [address] [address] [address] Louis Britton Potassium [Moles/Vol] 4.3 mmol/L Normal 3.5-5.1 [facility] Comment on above: Performed By: #### C MP, LIPID #### [facility] [address] [address] [address] Louis Britton Protein [Mass/Vol] 6.6 g/dL Normal 6.4-8.2 [facility] Comment on above: Performed By: #### C MP, LIPID #### [facility] [address] [address] [address] Louis Britton Sodium [Moles/Vol] 138 mmol/L Normal 136-145 [facility] Comment on above: Performed By: #### C MP, LIPID #### [facility] [address] [address] [address] Louis Britton Urea nitrogen [Mass/Vol] 10.0 mg/dL Normal 7.0-18.0 [facility] Comment on above: Performed By: #### C MP, LIPID #### [facility] [address] [address] [address] Louis Britton Urea nitrogen/Creatinine [Mass ratio] 12.7 mg/mg Normal [facility] Comment on above: Performed By: #### C MP, LIPID #### [facility] [address] [address] [address] Louis Britton Office Visit (Oncology Surge ry)on 03-12-2022 Follow-up visit Orders Acute pancreatitis, Chronic pancreatitis, unspecified pancreatitis type Continue: predniSONE 5 MG Oral Tablet; Take 7 tablets every day for 1 week, then 6 tablets every day for one week, then 5 tablets every for one week, then 4 tablets every day for one week, then 3 tablets every day for one week, then 2 tablets every day for one week, then 1 tablet every day for one week then stop Chronic pancreatitis Continue: Creon [id number] UNIT Oral Capsule Delayed Release Particles; Please take 1 capsule with each meal three times a day Continue: Gabapentin 800 MG Oral Tablet; TAKE 1 TABLET 3 TIMES DAILY Continue: oxyCODONE HCl - 5 MG Oral Tablet; TAKE 1 TABLET Every 4 hours PRN pain Continue: Promethazine HCl - 12.5 MG Oral Tablet; TAKE 1 TABLET Every 6 hours PRN nausea Diarrhea Continue: Loperamide HCl - 2 MG Oral Tablet; TAKE 2 TABLETS INITIALLY, FOLLOWED BY 1 TABLET AFTER EACH LOOSE BOWEL MOVEMENT. DO NOT EXCEED 8 TABLETS/DAY Unlinked Continue: Acyclovir 400 MG Oral Tablet; Take 1 tablet twice daily Continue: busPIRone HCl - 15 MG Oral Tablet; take 1 tablet by mouth twice a day Continue: Creon [id number] UNIT Oral Capsule Delayed Release Particles; TAKE 1 CAPSULE 3 times daily With meals Continue: DULoxetine HCl - 60 MG Oral Capsule Delayed Release Particles; take 1 capsule by mouth every morning Continue: Humira Pen 40 MG/0.4ML Subcutaneous Pen-injector Kit; INJECT ONE PEN EVERY OTHER WEEK Continue: Insulin Lispro 100 UNIT/ML SOLN; per insulin pump Continue: Paulina 24 FE 1-20 MG-MCG(24) Oral Tablet; TAKE 1 TABLET DAILY Continue: Pantoprazole Sodium 40 MG Oral Tablet Delayed Release; take 1 tablet by mouth once daily Continue: Sucralfate 1 GM Oral Tablet; TAKE 1 TABLET 4 TIMES DAILY, BEFORE MEALS AND AT BEDTIME Continue: traZODone HCl - 100 MG Oral Tablet; TAKE 2 TABLETS BY MOUTH AT BEDTIME Patient Discussion/Summary 36F with chronic pancreatitis, DM, EPI. I discussed in general terms the surgical options for management of chronic pancreatitis refractory to medical/endoscopic management, including resection, drainage, and resection+drainage. I explained indications for each type of approach. I think in this specific case, given diffuse glandular involvement, small duct disease, insulin-dependent DM, and EPI, she will benefit from a total pancreatectomy. I don't see value in AIT here. I'll see her back in 1 month for further discussion. We will get her steroids tapered more rapidly in the interim. All questions answered. 45 mins on encouter including chart/imaging review, pt discussion/counseling, coordination of care. Chief Complaint recurrent acute on chronic pancreatitis History of Present [id number] with history of [id number] pancreatitis starting around 3 years ago after a laparoscopic cholecystectomy. She has a remote h/o EtOH use in college and currently does not smoke cigarettes but does vape. Describes pain as sharp, chronic in nature, located in the epigastrium and radiating around to the back and LUQ. She has been followed by Dr. Lee and our former advanced GI fellow, Dr. Eldridge. She has been managed with ERCP/PD stent and is currently on a steroid taper. These interventions have resulted in some mild relief but she endorses breakthrough episodes and flares. She most recently underwent a celiac plexus block with mild improvement in symptoms initially. She is insulin dependent and takes creon. 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) Chronic pancreatitis (577.1) (K86.1) Chronic pancreatitis, unspecified pancreatitis type (577.1) (K86.1) Crohn's disease (555.9) (K50.90) Diarrhea (787.91) (R19.7) DM type 1 (diabetes mellitus, type 1) (250.01) (E10.9) Encounter for pancreatic duct stent exchange (V53.59) (Z46.59) Surgical History Problems History of Cholecystectomy History of Colonoscopy History of Endoscopic retrograde cholangiopancreatography History of Esophagogastroduodenosco py History of Gastrointestinal stent placement Family History Mother No pertinent family history Father No pertinent family history Social History Problems Electronic cigarette use (305.1) (Z78.9) No alcohol use No illicit drug use Allergies Medication Bactrim Recorded By: Gianna Blanchard; 06/29/2021 3:01:33 PM Current Meds Medication NameInstructionReason predniSONE 5 MG Oral TabletTake 7 tablets every day for 1 week, then 6 tablets every day for one week, then 5 tablets every for one week, then 4 tablets every day for one week, then 3 tablets every day for one week, then 2 tablets every day for one week, then 1 tablet every day for one week then stop.Acute pancreatitis, Chronic pancreatitis, unspecified pancreatitis type Creon [id number] UNIT Oral Capsule Delayed Release ParticlesPlease take 1 capsule with each meal three times a dayChronic (more content not included)... Normal [employer] Screening.on 022 Fall risk assessment a) No falls within the last year [facility] Work Phone: Tobacco use status CPHS a) Yes [facility] Work Phone: MRI Pancreas w/wo Contraston 03-08-2022 MR Pancreas WO and W contrast IV Normal [facility] Work Phone: No Panel Informationon 02-23 Please click on the link to view the study images Normal XE-Tyysujte-[facility] [address] Work Phone: No Panel Informationon 02-19 [email or web address] {[id number]} [facility] rology-[facility] I Work Phone: [facility]y-[facility] I Work Phone: Please click on the link to view the study images Normal [facility]astro[facility] shaileshogy-[facility] I Work Phone: [facility]on SARS-CoV-2 (COVID-19) RNA DESIRE+probe Ql (Unsp spec) Not detected Normal NOT DETECTED [facility] Comment on above: Result Comment: This test is not yet approved or cleared by the [place] FDA. When there are no FDA-approved or cleared tests available, and other criteria are met, FDA can make tests available under an emergency access mechanism called an Emergency Use Authorization (EUA). The EUA for this test is supported by the Art Model of Health and Human Service's (HHS's) declaration that circumstances exist to justify the emergency use of in vitro diagnostics for the detection and/or diagnosis of the virus that causes COVID-19. This EUA will remain in effect (meaning this test can be used) for the duration of the COVID-19 declaration justifying emergency of IVDs, unless it is terminated or revoked by FDA (after which the test may no longer be used). When diagnostic testing is negative, the possibility of a false negative should be considered in the context of a patient's recent exposures and the presence of clinical signs and symptoms consistent with SARS-CoV-2. Performed By: #### C MP, LIPID #### [facility] [address] [place] [address] Dr. Louis Britton Laboratory - Chemistry and C hemistry - challengeon 01-22-2022 Glucose [Mass/Vol] 269 mg/dL above high threshold 74 - 99 [facility] Work Phone: Glucose [Mass/Vol] 124 mg/dL above high threshold 74 - 99 [facility] I Work Phone: Complete Blood Count + Diffe rentialon 01-21-2022 Basophils/100 WBC (Bld) 0.7 % 0.0 - 2.0 [facility] Work Phone: Erythrocyte distribution width (RBC) [Ratio] 13.2 % See Below [facility]astro[facility] roly-[facility] Work Phone: Comment on above: Reference Range: 11. 5 - 14.5 Hematocrit (Bld) [Volume fraction] 36.8 % See Below [facility]Gastroente rology-Van[facility] Work Phone: Comment on above: Reference Range: 36. 0 - 46.0 Hemoglobin (Bld) [Mass/Vol] 10.9 g/dL below low threshold See Below [facility]Gastroente rology-Van[facility] Work Phone: Comment on above: Reference Range: 12. 0 - 16.0 Lymphocytes/100 WBC (Bld) 51.5 % See Below [facility] rology-[facility] Work Phone: Comment on above: Reference Range: 13. 0 - 44.0 MCHC (RBC) [Mass/Vol] 29.6 g/dL below low threshold See Below [facility]Gastro[facility] rology-[facility] Work Phone: Comment on above: Reference Range: 32. 0 - 36.0 MCV (RBC) [Entitic vol] 107 fL above high threshold 80 - 100 [facility]Gastroente charlesy-[facility] Work Phone: Monocytes/100 WBC (Bld) 7.1 % 2.0 - 10.0 [facility]astro[facility] don-[facility] Work Phone: Neutrophils/100 WBC (Bld) 39.4 % See Below [facility]Gastro[facility] shaileshogy-[facility] Work Phone: Comment on above: Reference Range: 40. 0 - 80.0 Platelets (Bld) [#/Vol] 303 10*3/uL 150 - 450 [facility] Work Phone: RBC (Bld) [#/Vol] 3.45 {x10E12/L} below low threshold See Below [facility]-Gastroente shaileshy-[facility] Work Phone: Comment on above: Reference Range: 4.0 0 - 5.20 WBC (Bld) [#/Vol] 7.6 10*3/uL 4.4 - 11.3 [facility] Work Phone: Complete Blood Count + Differential 0.05 {x10E9/L} See Below [facility]-Gastroente shaileshy-[facility] Work Phone: Comment on above: Reference Range: 0.0 0 - 0.10 Complete Blood Count + Differential 0.09 {x10E9/L} See Below [facility]-Gastroente shaileshy-[facility] Work Phone: Comment on above: Reference Range: 0.0 0 - 0.70 Complete Blood Count + Differential 0.54 {x10E9/L} See Below [facility]Gastroente shaileshogy-[facility] Work Phone: Comment on above: Reference Range: 0.1 0 - 1.00 Complete Blood Count + Differential 3.91 {x10E9/L} See Below [facility] Work Phone: Comment on above: Reference Range: 1.2 0 - 4.80 Complete Blood Count + Differential 2.99 {x10E9/L} See Below [facility] Work Phone: Comment on above: Reference Range: 1.2 0 - 7.70 Complete Blood Count + Differential 1.2 % 0.0 - 6.0 [facility] Work Phone: Complete Blood Count + Differential 0.1 % 0.0 - 0.9 [facility] Work Phone: Comment on above: Immature Granulocyte Count (IG) includes promyelocytes, myelocytes and metamyelocytes but does not include bands. Percent differential counts (%) should be interpreted in the context of the absolute cell counts (cells/L). Complete Blood Count + Differential 0.3 {/100_WBC} 0.0-0.0 [facility] Work Phone: Laboratory - Chemistry and C hemistry - challengeon 01-21-2022 Glucose [Mass/Vol] 199 mg/dL above high threshold 74 - 99 [facility] Work Phone: Glucose [Mass/Vol] 175 mg/dL above high threshold 74 - 99 [facility] Work Phone: Glucose [Mass/Vol] 133 mg/dL above high threshold 74 - 99 [facility] Work Phone: Glucose [Mass/Vol] 261 mg/dL above high threshold 74 - 99 [facility] Work Phone: Renal Function Panelon 01-21 Albumin BCP dye [Mass/Vol] 3.5 g/dL 3.4 - 5.0 [facility]astro[facility] rology-[facility] I Work Phone: Anion gap [Moles/Vol] 11 mmol/L 10 - 20 [facility] Work Phone: Calcium [Mass/Vol] 9.0 mg/dL 8.6 - 10.6 [facility] Work Phone: Chloride [Moles/Vol] 100 mmol/L 98 - 107 MG-G astroente [facility] Work Phone: CO2 [Moles/Vol] 30 mmol/L 21 - 32 MG-Gastro ente [facility] Work Phone: Creatinine [Mass/Vol] 0.66 mg/dL See Below MG- Gastrolew [facility] Work Phone: Comment on above: Reference Range: 0.5 0 - 1.05 Glucose [Mass/Vol] 88 mg/dL 74 - 99 [facility] Work Phone: Phosphate [Mass/Vol] 4.1 mg/dL 2.5 - 4.9 MG-G domoente [facility] Work Phone: Comment on above: The performance carmen acteristics of phosphorus testing in heparinized plasma have been validated by the individual laboratory site where testing is performed. Testing on heparinized plasma is not approved by the FDA; however, such approval is not necessary.MILD HEMOLYSIS DETECTED. The result may be falsely elevated due tohemolysis or other interferents. Clinical correlation is recommended.Repeat testing may be considered. Potassium [Moles/Vol] 4.3 mmol/L 3.5 - 5.3 [facility] Work Phone: Comment on above: MILD HEMOLYSIS DETEC GREGOR. The result may be falsely elevated due tohemolysis or other interferents. Clinical correlation is recommended.Repeat testing may be considered. Sodium [Moles/Vol] 137 mmol/L 136 - 145 MG-Gas troente rology-Vanessa [facility] Work Phone: Urea nitrogen [Mass/Vol] 7 mg/dL 6 - 23 [facility]-Gastroente rology[facility] [facility] Work Phone: Renal Function Panel >90 >90 [facility] Work Phone: Comment on above: CALCULATIONS OF LEIDY MATED GFR ARE PERFORMED USING THE 2020 CKD-EPI STUDY REFIT EQUATION WITHOUT THE RACE VARIABLE FOR THE IDMS-TRACEABLE CREATININE METHODS.[email or web address] [id number] Laboratory - Chemistry and C hemistry - challengeon 01-20-2022 Glucose [Mass/Vol] 189 mg/dL above high threshold 74 - 99 MG-Gastroente rology-[place] [facility] Work Phone: Glucose [Mass/Vol] 174 mg/dL above high threshold 74 - 99 MG-Gastroente rology-[place] [facility] Work Phone: Glucose [Mass/Vol] 172 mg/dL above high threshold 74 - 99 MG-Gastroente rology-[place] [facility] Work Phone: Glucose [Mass/Vol] 150 mg/dL above high threshold 74 - 99 MG-Gastroente rology-[place] [facility] Work Phone: Glucose [Mass/Vol] 84 mg/dL 74 - 99 MG-Gas troente rology-[place] [facility] Work Phone: Glucose [Mass/Vol] 118 mg/dL above high threshold 74 - 99 MG-Gastroente rology-[place] [facility] Work Phone: Glucose [Mass/Vol] 57 mg/dL below low threshold 74 - 99 MG-Gastroente rology-[place] [facility] Work Phone: Laboratory - Chemistry and C hemistry - challengeon 01-19-2022 Glucose [Mass/Vol] 72 mg/dL below low threshold 74 - 99 MG-Gastroente shaileshy-[place] [facility] Work Phone: Glucose [Mass/Vol] 335 mg/dL above high threshold 74 - 99 MG-Gastroente rology-[place] [facility] Work Phone: Glucose [Mass/Vol] 336 mg/dL above high threshold 74 - 99 MG-Gastroente shaileshogy-[place] [facility] Work Phone: Glucose [Mass/Vol] 181 mg/dL above high threshold 74 - 99 MG-Gastroente shaileshogy-[place] [facility] Work Phone: Glucose [Mass/Vol] 121 mg/dL above high threshold 74 - 99 [facility] [facility] Work Phone: Laboratory - Hematology and Cell countson 01-19-2022 Erythrocyte distribution width (RBC) [Ratio] 13.2 % See Below [facility] Work Phone: Comment on above: Reference Range: 11. 5 - 14.5 Hematocrit (Bld) [Volume fraction] 37.2 % See Below MG-Gastroente charlesy-[facility] Work Phone: Comment on above: Reference Range: 36. 0 - 46.0 Hemoglobin (Bld) [Mass/Vol] 11.6 g/dL below low threshold See Below MG-Gastroente shaileshy-[place] [facility] Work Phone: Comment on above: Reference Range: 12. 0 - 16.0 MCHC (RBC) [Mass/Vol] 31.2 g/dL below low threshold See Below MG-Gastroente shaileshogy-[place] [facility] Work Phone: Comment on above: Reference Range: 32. 0 - 36.0 MCV (RBC) [Entitic vol] 101 fL above high threshold 80 - 100 MG-Gastroente shaileshogy-[place] [facility] Work Phone: Platelets (Bld) [#/Vol] 247 10*3/uL 150 - 450 MG-Gastroente rology-[place] [facility] Work Phone: RBC (Bld) [#/Vol] 3.69 {x10E12/L} below low threshold See Below MG-Gastroente rology-[place] [facility] Work Phone: Comment on above: Reference Range: 4.0 0 - 5.20 WBC (Bld) [#/Vol] 2.3 10*3/uL below low threshold 4.4 - 11.3 [facility] [facility] Work Phone: Magnesium, Serumon 2 Magnesium [Mass/Vol] 1.62 mg/dL See Below [facility] Work Phone: Comment on above: Reference Range: 1.6 0 - 2.40 No Panel Informationon 01-19 0.0 {/100_WBC} 0.0-0.0 MG-Gastroe nte [facility] Work Phone: Renal Function Panelon 01-19 Albumin BCP dye [Mass/Vol] 3.5 g/dL 3.4 - 5.0 [facility] Work Phone: Anion gap [Moles/Vol] 14 mmol/L 10 - 20 [facility] Work Phone: Calcium [Mass/Vol] 9.0 mg/dL 8.6 - 10.6 MG-Gas troente [facility] Work Phone: Chloride [Moles/Vol] 100 mmol/L 98 - 107 MG[facility]ente [facility] Work Phone: CO2 [Moles/Vol] 26 mmol/L 21 - 32 MG-Gastro ente [facility] Work Phone: Creatinine [Mass/Vol] 0.76 mg/dL See Below MG- Gastroente rology-[place] [facility] Work Phone: Comment on above: Reference Range: 0.5 0 - 1.05 Glucose [Mass/Vol] 277 mg/dL above high threshold 74 - 99 MG-Gastroente rology-[place] I Work Phone: Phosphate [Mass/Vol] 4.1 mg/dL 2.5 - 4.9 MG-G astroente rology-[place] I Work Phone: Comment on above: The performance carmen acteristics of phosphorus testing in heparinized plasma have been validated by the individual laboratory site where testing is performed. Testing on heparinized plasma is not approved by the FDA; however, such approval is not necessary. Potassium [Moles/Vol] 4.2 mmol/L 3.5 - 5.3 MG- Gastroente rology-[place] [facility] Work Phone: Sodium [Moles/Vol] 136 mmol/L 136 - 145 MG-Gas troente rology-[place] [facility] Work Phone: Urea nitrogen [Mass/Vol] 3 mg/dL below low threshold 6 - 23 MG-Gastroente rology-[place] [facility] Work Phone: Renal Function Panel >90 >90 MG-G astroente rology-[place] [facility] Work Phone: Comment on above: CALCULATIONS OF LEIDY MATED GFR ARE PERFORMED USING THE 2020 CKD-EPI STUDY REFIT EQUATION WITHOUT THE RACE VARIABLE FOR THE IDMS-TRACEABLE CREATININE METHODS.https://jasn.asnjournals.org/content// N.[id number] Laboratory - Chemistry and C hemistry - challengeon 01-18-2022 Glucose [Mass/Vol] 89 mg/dL 74 - 99 MG-Gas troente rology-[place] [facility] Work Phone: Glucose [Mass/Vol] 110 mg/dL above high threshold 74 - 99 MG-Gastroente rology-[facility] Work Phone: Glucose [Mass/Vol] 145 mg/dL above high threshold 74 - 99 MG-Gastroente rology-[place] I Work Phone: Glucose [Mass/Vol] 121 mg/dL above high threshold 74 - 99 MG-Gastroente rology-[place] I Work Phone: Glucose [Mass/Vol] 77 mg/dL 74 - 99 MG-Gas troente rology-[place] [facility] Work Phone: Glucose [Mass/Vol] 189 mg/dL above high threshold 74 - 99 MG-Gastroente rology-[place] [facility] Work Phone: Glucose [Mass/Vol] 48 mg/dL below low threshold 74 - 99 MG-Gastroente rology-[place] [facility] Work Phone: Glucose [Mass/Vol] 68 mg/dL below low threshold 74 - 99 MG-Gastroente rology-[place] [facility] Work Phone: Magnesium, Serumon 2 Magnesium [Mass/Vol] 2.07 mg/dL See Below MG[facility]ente [facility] Work Phone: Comment on above: Reference Range: 1.6 0 - 2.40 Renal Function Panelon 01-18 Albumin BCP dye [Mass/Vol] 3.1 g/dL below low threshold 3.4 - 5.0 MG-Gastroente rology-[place] [facility] Work Phone: Anion gap [Moles/Vol] 12 mmol/L 10 - 20 MG- Gastroente rology-[place] [facility] Work Phone: Calcium [Mass/Vol] 8.5 mg/dL below low threshold 8.6 - 10.6 MG-Gastroente rology-[place] [facility] Work Phone: Chloride [Moles/Vol] 103 mmol/L 98 - 107 MG-G astroente rology-[place] [facility] Work Phone: CO2 [Moles/Vol] 27 mmol/L 21 - 32 MG-Gastro ente don-[place] I Work Phone: Creatinine [Mass/Vol] 0.55 mg/dL See Below MG- Gastroente shaileshogy-[place] [facility] Work Phone: Comment on above: Reference Range: 0.5 0 - 1.05 Glucose [Mass/Vol] 81 mg/dL 74 - 99 MG-Gas troente don-Van[place] [facility] Work Phone: Phosphate [Mass/Vol] 3.7 mg/dL 2.5 - 4.9 MG-G astroente don-[place] [facility] Work Phone: Comment on above: The performance carmen acteristics of phosphorus testing in heparinized plasma have been validated by the individual laboratory site where testing is performed. Testing on heparinized plasma is not approved by the FDA; however, such approval is not necessary. Potassium [Moles/Vol] 3.7 mmol/L 3.5 - 5.3 MG- Gastroente don-[place] [facility] Work Phone: Sodium [Moles/Vol] 138 mmol/L 136 - 145 MG-Gas troente Elvin [facility] Work Phone: Urea nitrogen [Mass/Vol] 4 mg/dL below low threshold 6 - 23 MG-Gastroente don-[place] [facility] Work Phone: Renal Function Panel >90 >90 MG-G astroente don-[place] [facility] Work Phone: Comment on above: CALCULATIONS OF LEIDY MATED GFR ARE PERFORMED USING THE 2020 CKD-EPI STUDY REFIT EQUATION WITHOUT THE RACE VARIABLE FOR THE IDMS-TRACEABLE CREATININE METHODS.https://jasn.asnjournals.org/content/early/ N.4687699556 URINALYSIS WITH CULTURE IF I NDICATEDon 01-18-2022 Color (U) COLORLESS See Below MG-Gastroente rology-[facility] Work Phone: Comment on above: Reference Range: STR AW,YELLOW Glucose Ql (U) Negative NEGATIVE MG-Gastroe nte [facility] Work Phone: Ketones Ql (U) Negative NEGATIVE MG-Gastroe nte [facility] Work Phone: Leukocyte esterase Test strip Ql (U) Negative NEGATIVE [facility] [facility] Work Phone: pH (U) 8.0 [pH] 5.0 - 8.0 [facility] Work Phone: Protein (U) [Mass/Vol] Negative NEGATIVE MG-Gastroente [facility] Work Phone: RBC (U) [#/Vol] Negative NEGATIVE MG-Gastro ente [facility] Work Phone: Specific gravity (U) [Rel density] 1.006 1 See Below MG-Gastroente [facility] Work Phone: Comment on above: Reference Range: 1.0 05 - 1.035 URINALYSIS WITH CULTURE IF INDICATED Negative NEGATIVE MG-Gastroen te [facility] Work Phone: URINALYSIS WITH CULTURE IF INDICATED <2.0 0.0 - 1.9 MG-Gastroen te [facility] Work Phone: URINALYSIS WITH CULTURE IF INDICATED CLEAR CLEAR MG-Gastroen te [facility] Work Phone: Hepatic Function Panelon ALP [Catalytic activity/Vol] 66 U/L 33 - 110 MG-Gastroente [facility] Work Phone: ALT With P-5'-P [Catalytic activity/Vol] 16 U/L 7 - 45 MG-Gastroente [facility] Work Phone: Comment on above: Patients treated wit h Sulfasalazine may generate falsely decreased results for ALT. AST With P-5'-P [Catalytic activity/Vol] 24 U/L 9 - 39 MG-Gastroente [facility] Work Phone: Bilirubin [Mass/Vol] 0.4 mg/dL 0.0 - 1.2 MG-G astroente [facility] Work Phone: Bilirubin.direct [Mass/Vol] 0.1 mg/dL 0.0 - 0.3 MG-Gastroente [facility] Work Phone: Protein [Mass/Vol] 5.7 g/dL below low threshold 6.4 - 8.2 MG-Gastroente [facility] Work Phone: Laboratory - Chemistry and C hemistry - challengeon 01-17-2022 Glucose [Mass/Vol] 83 mg/dL 74 - 99 MG-Gas [facility] Work Phone: Glucose [Mass/Vol] 85 mg/dL 74 - 99 [facility]: Glucose [Mass/Vol] 76 mg/dL 74 - 99 MG-Gas [facility] Work Phone: Glucose [Mass/Vol] 95 mg/dL 74 - 99 MG-Gas troente [facility] Work Phone: Glucose [Mass/Vol] 100 mg/dL above high threshold 74 - 99 [facility] Work Phone: Glucose [Mass/Vol] 95 mg/dL 74 - 99 MG-Gas [facility] Work Phone: Laboratory - Hematology and Cell countson 01-17-2022 Erythrocyte distribution width (RBC) [Ratio] 13.3 % See Below MG-Gastroente don-[place] I Work Phone: Comment on above: Reference Range: 11. 5 - 14.5 Hematocrit (Bld) [Volume fraction] 33.0 % below low threshold See Below MG-Gastroente charlesy-[place] I Work Phone: Comment on above: Reference Range: 36. 0 - 46.0 Hemoglobin (Bld) [Mass/Vol] 10.0 g/dL below low threshold See Below MG-Gastroente charlesy-[place] [facility] Work Phone: Comment on above: Reference Range: 12. 0 - 16.0 MCHC (RBC) [Mass/Vol] 30.3 g/dL below low threshold See Below MG-Gastroente charlesy-[place] [facility] Work Phone: Comment on above: Reference Range: 32. 0 - 36.0 MCV (RBC) [Entitic vol] 103 fL above high threshold 80 - 100 MG-Gastroente don-[place] [facility] Work Phone: Platelets (Bld) [#/Vol] 195 10*3/uL 150 - 450 MG-Gastroente don-[place] [facility] Work Phone: RBC (Bld) [#/Vol] 3.20 {x10E12/L} below low threshold See Below MG-Gastroente charlesy-[place] [facility] Work Phone: Comment on above: Reference Range: 4.0 0 - 5.20 WBC (Bld) [#/Vol] 5.1 10*3/uL 4.4 - 11.3 MG-Gas troente shaileshmanny-[facility] Work Phone: Magnesium, Serumon Magnesium [Mass/Vol] 1.66 mg/dL See Below MG-G astroente don-[place] [facility] Work Phone: Comment on above: Reference Range: 1.6 0 - 2.40 No Panel Informationon 01-17 0.0 {/100_WBC} 0.0-0.0 MG-Gastroe nte roly-[facility] Work Phone: Renal Function Panelon 01-17 Albumin BCP dye [Mass/Vol] 3.2 g/dL below low threshold 3.4 - 5.0 MG-Gastroente rology-[place] [facility] Work Phone: Anion gap [Moles/Vol] 12 mmol/L 10 - 20 MG- Gastroente rology-[place] [facility] Work Phone: Calcium [Mass/Vol] 8.5 mg/dL below low threshold 8.6 - 10.6 MG-Gastroente rology-[place] [facility] Work Phone: Chloride [Moles/Vol] 106 mmol/L 98 - 107 MG-G astroente rology-[facility] Work Phone: CO2 [Moles/Vol] 26 mmol/L 21 - 32 [facility] Work Phone: Creatinine [Mass/Vol] 0.60 mg/dL See Below MG- Gastroente rology-[place] [facility] Work Phone: Comment on above: Reference Range: 0.5 0 - 1.05 Glucose [Mass/Vol] 86 mg/dL 74 - 99 MG[facility]Gas [facility]ente [facility] Work Phone: Phosphate [Mass/Vol] 3.6 mg/dL 2.5 - 4.9 MG[facility] Work Phone: Comment on above: The performance carmen acteristics of phosphorus testing in heparinized plasma have been validated by the individual laboratory site where testing is performed. Testing on heparinized plasma is not approved by the FDA; however, such approval is not necessary. Potassium [Moles/Vol] 3.7 mmol/L 3.5 - 5.3 MG- Gastroente rology-[place] [facility] Work Phone: Sodium [Moles/Vol] 140 mmol/L 136 - 145 MG-Gas troente Elvin [facility] Work Phone: Urea nitrogen [Mass/Vol] 5 mg/dL below low threshold 6 - 23 MG-Gastroente Elvin [facility] Work Phone: Renal Function Panel >90 >90 [facility] Work Phone: Comment on above: CALCULATIONS OF LEIDY MATED GFR ARE PERFORMED USING THE 2020 CKD-EPI STUDY REFIT EQUATION WITHOUT THE RACE VARIABLE FOR THE IDMS-TRACEABLE CREATININE METHODS.https://jasn.asnjournals.org/content/early/ N.1358221309 Coronavirus 2019 RNA by PCR, Screening Asymptomticon 01-16-2022 Coronavirus 2019 RNA by PCR, Screening Asymptomtic Not detected Normal See Below MG-Gastroente rology-Admin [place] [facility] Work Phone: Comment on above: SOURCE: Nasal, Nasop haryngealReference Range: Not Detected.This test has received FDA Emergency Use Authorization (EUA) and has been verified by [facility] ([facility]). This test is only authorized for the duration of time that circumstances exist to justify the authorization of the emergency use of in vitro diagnostic tests for the detection of SARS-CoV-2 virus and/or diagnosis of COVID-19 infection under section 564(b)(1) of the Act, 21 U.S.C. 360bbb-3(b)(1), unless the authorization is terminated or revoked sooner. [facility] is certified under CLIA-88 as qualified to perform high complexity testing. Testing is performed in the [facility] located at [address] [place] [address].SARS-CoV-2/Flu/RSV Multiplex Test: Fact sheet for providers: https://www.fda.gov/media/597846/downloadFact sheet for patients: https://www.fda.gov/media/362000/download Laboratory - Chemistry and C hemistry - challengeon 01-16-2022 Glucose [Mass/Vol] 84 mg/dL 74 - 99 MG-Gas troente rology-Admin Work Phone: [phone] Albumin BCP dye [Mass/Vol] 3.5 g/dL 3.4 - 5.0 MG-Gastroente rology-Admin Work Phone: ALP [Catalytic activity/Vol] 68 U/L 33 - 110 MG-Gastroente rology-Admin Work Phone: [phone] ALT With P-5'-P [Catalytic activity/Vol] 13 U/L 7 - 45 MG-Gastroente rology-Admin Work Phone: Comment on above: Patients treated wit h Sulfasalazine may generate falsely decreased results for ALT. Anion gap [Moles/Vol] 13 mmol/L 10 - 20 MG- Gastroente rology-Admin Work Phone: AST With P-5'-P [Catalytic activity/Vol] 17 U/L 9 - 39 MG-Gastroente rology-Admin Work Phone: Bilirubin [Mass/Vol] 0.5 mg/dL 0.0 - 1.2 MG-G astroente [facility]-Admin Work Phone: Calcium [Mass/Vol] 9.0 mg/dL 8.6 - 10.6 MG-Gas troente roly-Admin Work Phone: Chloride [Moles/Vol] 104 mmol/L 98 - 107 MG-G astroente roly-Admin Work Phone: CO2 [Moles/Vol] 25 mmol/L 21 - 32 MG-Gastro ente rology-Admin Work Phone: Creatinine [Mass/Vol] 0.62 mg/dL See Below MG- Gastroente rology-Admin Work Phone: Comment on above: Reference Range: 0.5 0 - 1.05 Glucose [Mass/Vol] 113 mg/dL above high threshold 74 - 99 MG-Gastroente rology-Admin Work Phone: Potassium [Moles/Vol] 3.8 mmol/L 3.5 - 5.3 MG- Gastroente rology-Admin Work Phone: Protein [Mass/Vol] 6.4 g/dL 6.4 - 8.2 MG-Gas troente rology-Admin Work Phone: [phone] Sodium [Moles/Vol] 138 mmol/L 136 - 145 MG-Gas troente rology-Admin Work Phone: Urea nitrogen [Mass/Vol] 8 mg/dL 6 - 23 MG-Gastroente rology-Admin Work Phone: [phone] Glucose [Mass/Vol] 195 mg/dL above high threshold 74 - 99 MG-Gastroente rology-Admin Work Phone: Glucose [Mass/Vol] 116 mg/dL above high threshold 74 - 99 MG-Gastroente rology-Admin Work Phone: Laboratory - Hematology and Cell countson 01-16-2022 Erythrocyte distribution width (RBC) [Ratio] 13.3 % See Below MG-Gastroente rology-Admin Work Phone: Comment on above: Reference Range: 11. 5 - 14.5 Hematocrit (Bld) [Volume fraction] 34.6 % below low threshold See Below MG-Gastroente rology-Admin Work Phone: Comment on above: Reference Range: 36. 0 - 46.0 Hemoglobin (Bld) [Mass/Vol] 11.0 g/dL below low threshold See Below MG-Gastroente rology-Admin Work Phone: Comment on above: Reference Range: 12. 0 - 16.0 MCHC (RBC) [Mass/Vol] 31.8 g/dL below low threshold See Below MG-Gastroente rology-Admin [place] [facility] Work Phone: Comment on above: Reference Range: 32. 0 - 36.0 MCV (RBC) [Entitic vol] 99 fL 80 - 100 MG-Gastroente rology-Admin [place] [facility] Work Phone: Platelets (Bld) [#/Vol] 219 10*3/uL 150 - 450 MG-Gastroente rology-Admin [place] [facility] Work Phone: RBC (Bld) [#/Vol] 3.49 {x10E12/L} below low threshold See Below MG-Gastroente rology-Admin [place] [facility] Work Phone: Comment on above: Reference Range: 4.0 0 - 5.20 WBC (Bld) [#/Vol] 7.5 10*3/uL 4.4 - 11.3 MG-Gas troente rology-Admin Work Phone: Magnesium, Serumon 2 Magnesium [Mass/Vol] 1.76 mg/dL See Below MG-G astroente rology-Admin Work Phone: Comment on above: Reference Range: 1.6 0 - 2.40 No Panel Informationon 01-16 >90 >90 MG-Gastroente rology-Admin Work Phone: Comment on above: CALCULATIONS OF LEIDY MATED GFR ARE PERFORMED USING THE 2020 CKD-EPI STUDY REFIT EQUATION WITHOUT THE RACE VARIABLE FOR THE IDMS-TRACEABLE CREATININE METHODS.https://jasn.asnjournals.org/content/early/ N.6659135131 0.0 {/100_WBC} 0.0-0.0 MG-Gastroe nte rology-Admin Work Phone: Please click on the link to view the study images Normal MG-Gastroente rology-Van[place] [facility] Work Phone: [email or web address] {[email or web address]} MG-Gastroente rology-Admin Work Phone: MG-Gastroente rology-Admin Work Phone: COVID Quick Testingon 2021 Result Negative [facility] Other Tobacco Screening.on 022 Fall risk assessment a) No falls within the last year JU-Xdwrrffw-Y [facility] [address] Work Phone: Tobacco use status CPHS a) Yes [facility] [address] Work Phone: Tobacco Screening. Yes [facility] [address] Work Phone: A1C HEMOGLOBINon 12-11-2021 HbA1c (Bld) [Mass fraction] 5.8 % [facility] Other Glucose - FINGER STICKon Glucose [Mass/Vol] 163 mg/dL [facility] Other HbA1c (Bld) [Mass fraction]o n 12-11-2021 A1C HEMOGLOBIN [facility] Other Laboratory - Chemistry and C hemistry - challengeon 11-01-2021 Glucose [Mass/Vol] 154 mg/dL above high threshold 74 - 99 MG-Gastroente rology-[place] [facility] Work Phone: Albumin BCP dye [Mass/Vol] 3.2 g/dL below low threshold 3.4 - 5.0 MG-Gastroente rology-[place] [facility] Work Phone: ALP [Catalytic activity/Vol] 69 U/L 33 - 110 MG-Gastroente rology-[place] [facility] Work Phone: ALT With P-5'-P [Catalytic activity/Vol] 13 U/L 7 - 45 MG-Gastroente rology-[place] [facility] Work Phone: Comment on above: Patients treated wit h Sulfasalazine may generate falsely decreased results for ALT. Anion gap [Moles/Vol] 11 mmol/L 10 - 20 MG- Gastroente rology-[place] [facility] Work Phone: AST With P-5'-P [Catalytic activity/Vol] 14 U/L 9 - 39 [facility] Work Phone: Bilirubin [Mass/Vol] 0.2 mg/dL 0.0 - 1.2 MG-G astroente [facility] Work Phone: Calcium [Mass/Vol] 8.5 mg/dL below low threshold 8.6 - 10.6 MG-Gastroente rology-[facility] Work Phone: Chloride [Moles/Vol] 101 mmol/L 98 - 107 MG-G astroente [facility] Work Phone: CO2 [Moles/Vol] 30 mmol/L 21 - 32 [facility] Work Phone: Creatinine [Mass/Vol] 0.72 mg/dL See Below MG- Gastroente rology-[facility] Work Phone: Comment on above: Reference Range: 0.5 0 - 1.05 Glucose [Mass/Vol] 157 mg/dL above high threshold 74 - 99 MG-Gastroente rology-[place] [facility] Work Phone: Potassium [Moles/Vol] 4.1 mmol/L 3.5 - 5.3 MG- Gastroente rology-[place] [facility] Work Phone: Protein [Mass/Vol] 5.6 g/dL below low threshold 6.4 - 8.2 MG-Wagner Oconnor [facility] Work Phone: Sodium [Moles/Vol] 138 mmol/L 136 - 145 MG-Gas minoo Oconnor [facility] Work Phone: Urea nitrogen [Mass/Vol] 3 mg/dL below low threshold 6 - 23 MG-Wagner Oconnor [facility] Work Phone: Glucose [Mass/Vol] 109 mg/dL above high threshold 74 - 99 MG-Wagner Oconnor [facility] Work Phone: Laboratory - Hematology and Cell countson 11-01-2021 Erythrocyte distribution width (RBC) [Ratio] 13.7 % See Below -Wagner Oconnor [facility] Work Phone: Comment on above: Reference Range: 11. 5 - 14.5 Hematocrit (Bld) [Volume fraction] 35.0 % below low threshold See Below -Wagner Oconnor [facility] Work Phone: Comment on above: Reference Range: 36. 0 - 46.0 Hemoglobin (Bld) [Mass/Vol] 10.8 g/dL below low threshold See Below -Wagner Oconnor [facility] Work Phone: Comment on above: Reference Range: 12. 0 - 16.0 MCHC (RBC) [Mass/Vol] 30.9 g/dL below low threshold See Below MG-Wagner Oconnor [facility] Work Phone: Comment on above: Reference Range: 32. 0 - 36.0 MCV (RBC) [Entitic vol] 105 fL above high threshold 80 - 100 MG-Wagner Oconnor [facility] Work Phone: Platelets (Bld) [#/Vol] 225 10*3/uL 150 - 450 MG-Wagner Oconnor [facility] Work Phone: RBC (Bld) [#/Vol] 3.33 {x10E12/L} below low threshold See Below MG-Gastroente rology-Vanessa I Work Phone: Comment on above: Reference Range: 4.0 0 - 5.20 WBC (Bld) [#/Vol] 5.7 10*3/uL 4.4 - 11.3 MG-Gas troente [employer]-Vanessa I Work Phone: Lipid Panelon 11-01-2021 Cholesterol [Mass/Vol] 127 mg/dL 0 - 199 MG-Gastroente rology-[place] I Work Phone: Comment on above: . AGE DESIRABLE BORD JOSE ALFREDO HIGH HIGH 0-19 Y 0 - 169 170 - 199 >/= 200 20-24 Y 0 - 189 190 - 224 >/= 225 >24 Y 0 - 199 200 - 239 >/= 240 All ranges are based on fasting samples. Specific therapeutic targets will vary based on patient-specific cardiac risk.. Pediatric guidelines reference:Pediatrics 2011, 128(S5). Adult guidelines reference: NCEP ATPIII Guidelines, DIONNE 2001, 258:2486-97. Venipuncture immediately after or during the administration of Metamizole may lead to falsely low results. Testing should be performed immediately prior to Metamizole dosing. Cholesterol in HDL [Mass/Vol] 30.0 mg/dL Abnormal MG-Gastroente BucketFeety-[place] [facility] Work Phone: Comment on above: . AGE VERY LOW LOW N ORMAL HIGH 0-19 Y < 35 < 40 40-45 ---- 20- 24 Y ---- < 40 >45 ---- >24 Y ---- < 40 40-60 >60. Cholesterol in LDL [Mass/Vol] 40 mg/dL 0 - 99 MG-Gastroente BucketFeety-[place] [facility] Work Phone: Comment on above: . NEAR BORD AGE PEDRO RABLE OPTIMAL HIGH HIGH VERY HIGH 0-19 Y 0 - 109 --- 110-129 >/= 130 ---- 20-24 Y 0 - 119 --- 120-159 >/= 160 ---- >24 Y 0 - 99 100-129 130-159 160-189 >/=190. Cholesterol non HDL [Mass/Vol] 97 mg/dL MG-Gastroente Road[employer]ety-[facility] [employer] Work Phone: Comment on above: AGE DESIRABLE BORDER LINE HIGH HIGH VERY HIGH 0-19 Y 0 - 119 120 - 144 >/= 145 >/= 160 20-24 Y 0 - 149 150 - 189 >/= 190 ---- >24 Y 30 MG/DL ABOVE LDL CHOLESTEROL GOAL. Cholesterol.total/Cho lesterol in HDL [Mass ratio] 4.2 {ratio} MG-Gastroente [employer] Work Phone: Comment on above: REF VALUESDESIRABLE < 3.4HIGH RISK > 5.0 Triglyceride [Mass/Vol] 286 mg/dL above high threshold 0 - 149 MG-Gastroente [employer]-[facility] [employer] Work Phone: Comment on above: . AGE DESIRABLE BORD JOSE ALFREDO HIGH HIGH VERY HIGH 0 D-90 D 19 - 174 ---- ---- ----91 D- 9 Y 0 - 74 75 - 99 >/= 100 ---- 10-19 Y 0 - 89 90 - 129 >/= 130 ---- 20-24 Y 0 - 114 115 - 149 >/= 150 ---- >24 Y 0 - 149 150 - 199 200- 499 >/= 500. Venipuncture immediately after or during the administration of Metamizole may lead to falsely low results. Testing should be performed immediately prior to Metamizole dosing. Lipid Panel 57 mg/dL above high threshold 0 - 40 MG-Gastroente BucketFeetogy-[place] [employer] Work Phone: No Panel Informationon 11-01 >90 >90 MG-Gastroente [employer]ogy-[place] [employer] Work Phone: Comment on above: CALCULATIONS OF LEIDY MATED GFR ARE PERFORMED USING THE 2020 CKD-EPI STUDY REFIT EQUATION WITHOUT THE RACE VARIABLE FOR THE IDMS-TRACEABLE CREATININE METHODS.https://jasn.asnjournals.org/content/early/ N.1332069983 0.0 {/100_WBC} 0.0-0.0 MG-Gastroe nte [facility] Work Phone: Laboratory - Chemistry and C hemistry - challengeon 10-31-2021 Glucose [Mass/Vol] 202 mg/dL above high threshold 74 - 99 [facility] Work Phone: Glucose [Mass/Vol] 151 mg/dL above high threshold 74 - 99 MG-Gastroente roly-[place] [facility] Work Phone: Glucose [Mass/Vol] 220 mg/dL above high threshold 74 - 99 MG-Gastroente rology-[facility] Work Phone: Albumin BCP dye [Mass/Vol] 3.5 g/dL 3.4 - 5.0 [facility] Work Phone: ALP [Catalytic activity/Vol] 71 U/L 33 - 110 MG-Gastroente [facility] Work Phone: ALT With P-5'-P [Catalytic activity/Vol] 12 U/L 7 - 45 MG-Gastroente [facility] Work Phone: Comment on above: Patients treated wit h Sulfasalazine may generate falsely decreased results for ALT. Anion gap [Moles/Vol] 13 mmol/L 10 - 20 [facility] Work Phone: AST With P-5'-P [Catalytic activity/Vol] 13 U/L 9 - 39 MG-Gastroente [facility] Work Phone: Bilirubin [Mass/Vol] 0.3 mg/dL 0.0 - 1.2 MG-G astroente [facility] Work Phone: Calcium [Mass/Vol] 8.9 mg/dL 8.6 - 10.6 MG-Gas troente [facility] Work Phone: Chloride [Moles/Vol] 103 mmol/L 98 - 107 MG-[facility] Work Phone: CO2 [Moles/Vol] 28 mmol/L 21 - 32 MG-[facility]astro ente [facility] Work Phone: Creatinine [Mass/Vol] 0.59 mg/dL See Below MG- Gastroente don-[facility] Work Phone: Comment on above: Reference Range: 0.5 0 - 1.05 Glucose [Mass/Vol] 87 mg/dL 74 - 99 MG-Gas minoo ochoaVanessa [facility] Work Phone: Potassium [Moles/Vol] 4.5 mmol/L 3.5 - 5.3 MG- Gastrolew [facility] Work Phone: Protein [Mass/Vol] 6.1 g/dL below low threshold 6.4 - 8.2 [facility] Work Phone: Sodium [Moles/Vol] 139 mmol/L 136 - 145 MG-Gas minoo cashmannyBay[facility] Work Phone: Urea nitrogen [Mass/Vol] 4 mg/dL below low threshold 6 - 23 [facility]w [facility] Work Phone: Laboratory - Hematology and Cell countson 10-31-2021 Erythrocyte distribution width (RBC) [Ratio] 13.8 % See Below MG-Gastroente don-[facility] Work Phone: Comment on above: Reference Range: 11. 5 - 14.5 Hematocrit (Bld) [Volume fraction] 36.8 % See Below MG-Gastroente don-[place] [facility] Work Phone: Comment on above: Reference Range: 36. 0 - 46.0 Hemoglobin (Bld) [Mass/Vol] 11.5 g/dL below low threshold See Below MG-Gastroente rology-[facility] Work Phone: Comment on above: Reference Range: 12. 0 - 16.0 MCHC (RBC) [Mass/Vol] 31.3 g/dL below low threshold See Below MG-Gastroente rology-[place] [facility] Work Phone: Comment on above: Reference Range: 32. 0 - 36.0 MCV (RBC) [Entitic vol] 104 fL above high threshold 80 - 100 MG-Gastroente rology-[facility] Work Phone: Platelets (Bld) [#/Vol] 231 10*3/uL 150 - 450 MG-Gastroente rology-[facility]essa I Work Phone: RBC (Bld) [#/Vol] 3.54 {x10E12/L} below low threshold See Below MG-Gastroente rology-[facility]essa I Work Phone: Comment on above: Reference Range: 4.0 0 - 5.20 WBC (Bld) [#/Vol] 5.1 10*3/uL 4.4 - 11.3 MG-Gas troente rology-[place] I Work Phone: No Panel Informationon 10-31 0.0 {/100_WBC} 0.0-0.0 MG-Gastroe nte rology-[place] I Work Phone: >90 >90 MG-Gastroente rology-[facility]essa I Work Phone: Comment on above: CALCULATIONS OF LEIDY MATED GFR ARE PERFORMED USING THE 2020 CKD-EPI STUDY REFIT EQUATION WITHOUT THE RACE VARIABLE FOR THE IDMS-TRACEABLE CREATININE METHODS.https://jasn.asnjournals.org/content/early/ N.2612746133 Laboratory - Chemistry and C hemistry - challengeon 10-30-2021 Glucose [Mass/Vol] 165 mg/dL above high threshold 74 - 99 MG-Gastroente rology-[place] [facility] Work Phone: Glucose [Mass/Vol] 165 mg/dL above high threshold 74 - 99 MG-Gastroente rology-[place] I Work Phone: Glucose [Mass/Vol] 108 mg/dL above high threshold 74 - 99 MG-Gastroente rology-[facility]essa I Work Phone: Laboratory - Chemistry and C hemistry - challengeon 10-29-2021 Glucose [Mass/Vol] 176 mg/dL above high threshold 74 - 99 MG-Gastroente rology-[place]essa [facility] Work Phone: Glucose [Mass/Vol] 156 mg/dL above high threshold 74 - 99 MG-Gastroente rology-[place] I Work Phone: Glucose [Mass/Vol] 148 mg/dL above high threshold 74 - 99 MG-Gastroente rology-[place] [facility] Work Phone: Glucose [Mass/Vol] 81 mg/dL 74 - 99 MG-Gas troente [facility] Work Phone: Amylase, Serumon 10-28-2021 Amylase [Catalytic activity/Vol] 17 U/L below low threshold 29 - 103 MG-Gastroente rology-Vanessa I Work Phone: Antithyroid Perox. Abon 10-17 TPO Ab Qn [IU]/mL MG-Gastroente rology-[place] [facility] Work Phone: Comment on above: Negative: <=60 U/mLP ositive: >60 U/mL Complete Blood Count + Diffe rentialon 10-28-2021 Basophils/100 WBC (Bld) 0.5 % 0.0 - 2.0 MG-Gastroente rology-[place] [facility] Work Phone: Erythrocyte distribution width (RBC) [Ratio] 14.3 % See Below MG-Gastroente rology-Vanessa I Work Phone: Comment on above: Reference Range: 11. 5 - 14.5 Hematocrit (Bld) [Volume fraction] 38.2 % See Below [facility] shaileshmanny-[place] [facility] Work Phone: Comment on above: Reference Range: 36. 0 - 46.0 Hemoglobin (Bld) [Mass/Vol] 12.8 g/dL See Below MG-Gastrosumma healthmanny-[facility] Work Phone: Comment on above: Reference Range: 12. 0 - 16.0 Lymphocytes/100 WBC (Bld) 50.5 % See Below [facility] Work Phone: Comment on above: Reference Range: 13. 0 - 44.0 MCHC (RBC) [Mass/Vol] 33.5 g/dL See Below - [facility] Work Phone: Comment on above: Reference Range: 32. 0 - 36.0 MCV (RBC) [Entitic vol] 97 fL 80 - 100 [facility] shaileshmanny-[facility] Work Phone: Monocytes/100 WBC (Bld) 12.1 % 2.0 - 10.0 [facility] Work Phone: Neutrophils/100 WBC (Bld) 31.3 % See Below [facility] Work Phone: Comment on above: Reference Range: 40. 0 - 80.0 Platelets (Bld) [#/Vol] 167 10*3/uL 150 - 450 [facility] shaileshmanny-[facility] Work Phone: RBC (Bld) [#/Vol] 3.92 {x10E12/L} below low threshold See Below MG-Gastroente shaileshy-[facility] Work Phone: Comment on above: Reference Range: 4.0 0 - 5.20 WBC (Bld) [#/Vol] 4.0 10*3/uL below low threshold 4.4 - 11.3 [facility] Work Phone: Complete Blood Count + Differential 0.3 % 0.0 - 0.9 [facility] Work Phone: Comment on above: Immature Granulocyte Count (IG) includes promyelocytes, myelocytes and metamyelocytes but does not include bands. Percent differential counts (%) should be interpreted in the context of the absolute cell counts (cells/L). Complete Blood Count + Differential 0.0 {/100_WBC} 0.0-0.0 [facility] Work Phone: Complete Blood Count + Differential 0.02 {x10E9/L} See Below [facility] Work Phone: Comment on above: Reference Range: 0.0 0 - 0.10 Complete Blood Count + Differential 0.21 {x10E9/L} See Below [facility] Work Phone: Comment on above: Reference Range: 0.0 0 - 0.70 Complete Blood Count + Differential 0.48 {x10E9/L} See Below [facility] Work Phone: Comment on above: Reference Range: 0.1 0 - 1.00 Complete Blood Count + Differential 2.01 {x10E9/L} See Below [facility] Work Phone: Comment on above: Reference Range: 1.2 0 - 4.80 Complete Blood Count + Differential 1.25 {x10E9/L} See Below [facility] Work Phone: Comment on above: Reference Range: 1.2 0 - 7.70 Complete Blood Count + Differential 5.3 % 0.0 - 6.0 [facility] Work Phone: Laboratory - Chemistry and C hemistry - challengeon 10-28-2021 Glucose [Mass/Vol] 96 mg/dL 74 - 99 [facility] Work Phone: Glucose [Mass/Vol] 101 mg/dL above high threshold 74 - 99 [facility]astroente [facility] Work Phone: Glucose [Mass/Vol] 112 mg/dL above high threshold 74 - 99 MG-Gastroente [facility] Work Phone: Glucose [Mass/Vol] 90 mg/dL 74 - 99 [facility] Work Phone: Albumin BCP dye [Mass/Vol] 3.7 g/dL 3.4 - 5.0 [facility] Work Phone: ALP [Catalytic activity/Vol] 76 U/L 33 - 110 MG-Gastroente [facility] Work Phone: ALT With P-5'-P [Catalytic activity/Vol] 19 U/L 7 - 45 [facility] Work Phone: Comment on above: Patients treated wit h Sulfasalazine may generate falsely decreased results for ALT. Anion gap [Moles/Vol] 15 mmol/L 10 - 20 MG- Gastroente [facility] Work Phone: AST With P-5'-P [Catalytic activity/Vol] 27 U/L 9 - 39 MG-Gastroente [facility] Work Phone: Bilirubin [Mass/Vol] 0.4 mg/dL 0.0 - 1.2 MG-G astroente [facility] Work Phone: Calcium [Mass/Vol] 9.2 mg/dL 8.6 - 10.6 MG-Gas troente [facility] Work Phone: Chloride [Moles/Vol] 102 mmol/L 98 - 107 MG-G astroente shaileshy-[facility] Work Phone: CO2 [Moles/Vol] 26 mmol/L 21 - 32 MG-[facility]astro ente [facility] Work Phone: Creatinine [Mass/Vol] 0.58 mg/dL See Below MG- Gastroente rology-[facility] Work Phone: Comment on above: Reference Range: 0.5 0 - 1.05 Glucose [Mass/Vol] 79 mg/dL 74 - 99 MG-Gas troente [facility] Work Phone: Potassium [Moles/Vol] 4.1 mmol/L 3.5 - 5.3 MG- [facility]ente [facility] Work Phone: Protein [Mass/Vol] 6.4 g/dL 6.4 - 8.2 MG-Gas troente [facility] Work Phone: Sodium [Moles/Vol] 139 mmol/L 136 - 145 MG-Gas troente [facility] Work Phone: Urea nitrogen [Mass/Vol] 2 mg/dL below low threshold 6 - 23 [facility]astroente [facility] Work Phone: Glucose [Mass/Vol] 93 mg/dL 74 - 99 MG-Gas troente rology-[facility] Work Phone: Glucose [Mass/Vol] 91 mg/dL 74 - 99 MG-Gas troente rology-[facility] Work Phone: Lipase, Serumon 10-28-2021 Lipase [Catalytic activity/Vol] 7 U/L below low threshold 9 - 82 MG-Gastroente rology-[place] [facility] Work Phone: Comment on above: Venipuncture immedia tely after or during the administration of Metamizole may lead to falsely low results. Testing should be performed immediately prior to Metamizole dosing. No Panel Informationon 10-28 >90 >90 MG-Gastroente rology-[place] [facility] Work Phone: Comment on above: CALCULATIONS OF LEIDY MATED GFR ARE PERFORMED USING THE 2020 CKD-EPI STUDY REFIT EQUATION WITHOUT THE RACE VARIABLE FOR THE IDMS-TRACEABLE CREATININE METHODS.https://jasn.asnjournals.org/content/early/ N.3669846178 TSH - Thyroid Stimulating Ho rmone, Serumon 10-28-2021 TSH Qn 4.77 m[IU]/L above high threshold See Below MG-Gastroente rology-[place] [facility] Work Phone: Comment on above: Reference Range: 0.4 4 - 3.98 TSH testing is performed using different testing methodology at [facility] than at other [facility]. Direct result comparisons should only be made within the same method. Laboratory - Chemistry and C hemistry - challengeon 10-27-2021 Glucose [Mass/Vol] 217 mg/dL above high threshold 74 - 99 MG-Gastroente rology-[place] [facility] Work Phone: Glucose [Mass/Vol] 102 mg/dL above high threshold 74 - 99 [facility]ente [facility] Work Phone: Glucose [Mass/Vol] 98 mg/dL 74 - 99 MG-Gas troente [facility] Work Phone: Amylase, Serumon 10-26-2021 Amylase [Catalytic activity/Vol] 18 U/L below low threshold 29 - 103 MG-Gastroente rology-[place] [facility] Work Phone: C Reactive Protein, Serumon 10-26-2021 CRP [Mass/Vol] 9.04 mg/dL Abnormal MG-Gastroe nte [facility] Work Phone: Comment on above: REF VALUE< 1.00 CT Abdomen and Pelvis with I V Contraston 10-26-2021 CT Abdomen and Pelvis W contrast IV Normal MG[facility] Work Phone: Complete Blood Count + Diffe rentialon 10-26-2021 Basophils/100 WBC (Bld) 0.5 % 0.0 - 2.0 MG-[facility]romer[facility] Work Phone: Erythrocyte distribution width (RBC) [Ratio] 14.5 % See Below [facility] shaileshmanny-[facility] Work Phone: Comment on above: Reference Range: 11. 5 - 14.5 Hematocrit (Bld) [Volume fraction] 34.9 % below low threshold See Below MG-Gastrosumma healthmanny-[place] [facility] Work Phone: Comment on above: Reference Range: 36. 0 - 46.0 Hemoglobin (Bld) [Mass/Vol] 11.0 g/dL below low threshold See Below MG-[facility] Work Phone: Comment on above: Reference Range: 12. 0 - 16.0 Lymphocytes/100 WBC (Bld) 30.4 % See Below [facility] Work Phone: Comment on above: Reference Range: 13. 0 - 44.0 MCHC (RBC) [Mass/Vol] 31.5 g/dL below low threshold See Below MG-Gastroente shaileshmanny-[facility] Work Phone: Comment on above: Reference Range: 32. 0 - 36.0 MCV (RBC) [Entitic vol] 104 fL above high threshold 80 - 100 MG-Gastroente shaileshmanny-[facility] Work Phone: Monocytes/100 WBC (Bld) 8.5 % 2.0 - 10.0 MG-Gastroente charlesy-[facility] Work Phone: Neutrophils/100 WBC (Bld) 56.6 % See Below MG[facility]ente [facility] Work Phone: Comment on above: Reference Range: 40. 0 - 80.0 Platelets (Bld) [#/Vol] 158 10*3/uL 150 - 450 MG-Gastroente don-[place] [facility] Work Phone: RBC (Bld) [#/Vol] 3.37 {x10E12/L} below low threshold See Below MG-Gastroente charlesy-Vanessa [facility] Work Phone: Comment on above: Reference Range: 4.0 0 - 5.20 WBC (Bld) [#/Vol] 5.8 10*3/uL 4.4 - 11.3 MG-Gas troente don-[facility] Work Phone: Complete Blood Count + Differential 0.03 {x10E9/L} See Below MG-Gastroente don-[facility] Work Phone: Comment on above: Reference Range: 0.0 0 - 0.10 Complete Blood Count + Differential 0.22 {x10E9/L} See Below MG-Gastroente don-[facility] Work Phone: Comment on above: Reference Range: 0.0 0 - 0.70 Complete Blood Count + Differential 0.49 {x10E9/L} See Below MG-Gastroente don-[place] [facility] Work Phone: Comment on above: Reference Range: 0.1 0 - 1.00 Complete Blood Count + Differential 1.76 {x10E9/L} See Below MG-Gastroente charlesy-[facility] Work Phone: Comment on above: Reference Range: 1.2 0 - 4.80 Complete Blood Count + Differential 3.28 {x10E9/L} See Below MG-Gastroente shaileshogy-[place] [facility] Work Phone: Comment on above: Reference Range: 1.2 0 - 7.70 Complete Blood Count + Differential 3.8 % 0.0 - 6.0 MG-Gastroente [facility] Work Phone: Complete Blood Count + Differential 0.2 % 0.0 - 0.9 MG-[facility] Work Phone: Comment on above: Immature Granulocyte Count (IG) includes promyelocytes, myelocytes and metamyelocytes but does not include bands. Percent differential counts (%) should be interpreted in the context of the absolute cell counts (cells/L). Complete Blood Count + Differential 0.5 {/100_WBC} 0.0-0.0 MG-Gastroente [facility] Work Phone: Laboratory - Chemistry and C hemistry - challengeon 10-26-2021 Glucose [Mass/Vol] 177 mg/dL above high threshold 74 - 99 [facility] Work Phone: Glucose [Mass/Vol] 156 mg/dL above high threshold 74 - 99 [facility] Work Phone: Glucose [Mass/Vol] 74 mg/dL 74 - 99 [facility] Work Phone: Glucose [Mass/Vol] 139 mg/dL above high threshold 74 - 99 [facility] Work Phone: Glucose [Mass/Vol] 67 mg/dL below low threshold 74 - 99 [facility] Work Phone: Albumin BCP dye [Mass/Vol] 3.4 g/dL 3.4 - 5.0 [facility] Work Phone: ALP [Catalytic activity/Vol] 59 U/L 33 - 110 [facility] Work Phone: ALT With P-5'-P [Catalytic activity/Vol] 14 U/L 7 - 45 [facility] Work Phone: Comment on above: Patients treated wit h Sulfasalazine may generate falsely decreased results for ALT. Anion gap [Moles/Vol] 20 mmol/L 10 - 20 MG- Gastroente rology-Vanessa [facility] Work Phone: AST With P-5'-P [Catalytic activity/Vol] 26 U/L 9 - 39 MG-[facility]astroente [facility] Work Phone: Comment on above: MILD HEMOLYSIS DETEC GREGOR. The result may be falsely elevated due tohemolysis or other interferents. Clinical correlation is recommended.Repeat testing may be considered. Bilirubin [Mass/Vol] 0.7 mg/dL 0.0 - 1.2 MG-G astroente [facility] Work Phone: Calcium [Mass/Vol] 8.5 mg/dL below low threshold 8.6 - 10.6 MG-Gastroente [facility] Work Phone: Chloride [Moles/Vol] 100 mmol/L 98 - 107 MG-G astroente [facility] Work Phone: CO2 [Moles/Vol] 22 mmol/L 21 - 32 MG-Gastro ente [facility] Work Phone: Creatinine [Mass/Vol] 0.51 mg/dL See Below MG- Gastroente [facility] Work Phone: Comment on above: Reference Range: 0.5 0 - 1.05 Glucose [Mass/Vol] 49 mg/dL Critically low 74 - 99 MG -Gastroente rology-[facility] Work Phone: Comment on above: CRIT GLU CALLED RB Flaca [place], 10/26/2021 12:24 Potassium [Moles/Vol] 5.3 mmol/L 3.5 - 5.3 MG- Gastroente rology-[facility] Work Phone: Comment on above: MILD HEMOLYSIS DETEC GREGOR. The result may be falsely elevated due tohemolysis or other interferents. Clinical correlation is recommended.Repeat testing may be considered. Protein [Mass/Vol] 6.0 g/dL below low threshold 6.4 - 8.2 MG-Gastroente don-[place] [facility] Work Phone: Sodium [Moles/Vol] 137 mmol/L 136 - 145 MG-Gas troente [facility] Work Phone: Urea nitrogen [Mass/Vol] 7 mg/dL 6 - 23 MG[facility]ente [facility] Work Phone: No Panel Informationon 10-26 >90 >90 [facility] shaileshmanny-[facility] Work Phone: Comment on above: CALCULATIONS OF LEIDY MATED GFR ARE PERFORMED USING THE 2020 CKD-EPI STUDY REFIT EQUATION WITHOUT THE RACE VARIABLE FOR THE IDMS-TRACEABLE CREATININE METHODS.https://jasn.asnjournals.org/content/early// N.3668986240 Complete Blood Count + Diffe rentialon 10-25-2021 Basophils/100 WBC (Bld) 0.3 % 0.0 - 2.0 MG[facility]ente [facility] Work Phone: Erythrocyte distribution width (RBC) [Ratio] 14.5 % See Below MG-Gastroente shaileshmanny-[place] [facility] Work Phone: Comment on above: Reference Range: 11. 5 - 14.5 Hematocrit (Bld) [Volume fraction] 35.7 % below low threshold See Below MG-Gastroente charlesy-Vanessa [facility] Work Phone: Comment on above: Reference Range: 36. 0 - 46.0 Hemoglobin (Bld) [Mass/Vol] 11.2 g/dL below low threshold See Below MG-Gastroente shaileshogy-Vanessa [facility] Work Phone: Comment on above: Reference Range: 12. 0 - 16.0 Lymphocytes/100 WBC (Bld) 25.4 % See Below MG-Gastroente rology-[place] I Work Phone: Comment on above: Reference Range: 13. 0 - 44.0 MCHC (RBC) [Mass/Vol] 31.4 g/dL below low threshold See Below MG-Gastroente rology-[place] [facility] Work Phone: Comment on above: Reference Range: 32. 0 - 36.0 MCV (RBC) [Entitic vol] 104 fL above high threshold 80 - 100 MG-Gastroente rology-[place] I Work Phone: Monocytes/100 WBC (Bld) 7.1 % 2.0 - 10.0 MG-Gastroente rology-[place] I Work Phone: Neutrophils/100 WBC (Bld) 64.4 % See Below MG-Gastroente rology-[place] I Work Phone: Comment on above: Reference Range: 40. 0 - 80.0 Platelets (Bld) [#/Vol] 157 10*3/uL 150 - 450 MG-Gastroente charlesy-[place] I Work Phone: RBC (Bld) [#/Vol] 3.44 {x10E12/L} below low threshold See Below MG-Gastroente rology-[place] I Work Phone: Comment on above: Reference Range: 4.0 0 - 5.20 WBC (Bld) [#/Vol] 6.6 10*3/uL 4.4 - 11.3 MG-Gas troente shaileshogy-[place] I Work Phone: Complete Blood Count + Differential 0.02 {x10E9/L} See Below MG-Gastroente rology-Vanessa I Work Phone: Comment on above: Reference Range: 0.0 0 - 0.10 Complete Blood Count + Differential 0.15 {x10E9/L} See Below MG-Gastroente rology-Vanessa I Work Phone: Comment on above: Reference Range: 0.0 0 - 0.70 Complete Blood Count + Differential 0.47 {x10E9/L} See Below -[facility] Work Phone: Comment on above: Reference Range: 0.1 0 - 1.00 Complete Blood Count + Differential 1.68 {x10E9/L} See Below MG-[facility] Work Phone: Comment on above: Reference Range: 1.2 0 - 4.80 Complete Blood Count + Differential 4.26 {x10E9/L} See Below [facility] Work Phone: Comment on above: Reference Range: 1.2 0 - 7.70 Complete Blood Count + Differential 2.3 % 0.0 - 6.0 MG-[facility] Work Phone: Complete Blood Count + Differential 0.5 % 0.0 - 0.9 -[facility] Work Phone: Comment on above: Immature Granulocyte Count (IG) includes promyelocytes, myelocytes and metamyelocytes but does not include bands. Percent differential counts (%) should be interpreted in the context of the absolute cell counts (cells/L). Complete Blood Count + Differential 0.0 {/100_WBC} 0.0-0.0 [facility] Work Phone: Laboratory - Chemistry and C hemistry - challengeon 10-25-2021 Glucose [Mass/Vol] 75 mg/dL 74 - 99 [facility] Work Phone: Albumin BCP dye [Mass/Vol] 3.5 g/dL 3.4 - 5.0 [facility] Work Phone: ALP [Catalytic activity/Vol] 63 U/L 33 - 110 [facility] Work Phone: ALT With P-5'-P [Catalytic activity/Vol] 14 U/L 7 - 45 [facility] Work Phone: Comment on above: Patients treated wit h Sulfasalazine may generate falsely decreased results for ALT. Anion gap [Moles/Vol] 12 mmol/L 10 - 20 [facility] Work Phone: AST With P-5'-P [Catalytic activity/Vol] 18 U/L 9 - 39 [facility] Work Phone: Bilirubin [Mass/Vol] 0.7 mg/dL 0.0 - 1.2 [facility] Work Phone: Calcium [Mass/Vol] 8.6 mg/dL 8.6 - 10.6 [facility] Work Phone: Chloride [Moles/Vol] 100 mmol/L 98 - 107 [facility] Work Phone: CO2 [Moles/Vol] 29 mmol/L 21 - 32 [facility] ent[facility] Work Phone: Creatinine [Mass/Vol] 0.54 mg/dL See Below [facility] Work Phone: Comment on above: Reference Range: 0.5 0 - 1.05 Glucose [Mass/Vol] 77 mg/dL 74 - 99 [facility] Work Phone: Potassium [Moles/Vol] 4.2 mmol/L 3.5 - 5.3 [facility] Work Phone: Protein [Mass/Vol] 5.9 g/dL below low threshold 6.4 - 8.2 [facility] Work Phone: Sodium [Moles/Vol] 137 mmol/L 136 - 145 [facility] Work Phone: Urea nitrogen [Mass/Vol] 8 mg/dL 6 - 23 [facility] Work Phone: Glucose [Mass/Vol] 83 mg/dL 74 - 99 [facility] troente shaileshy-[facility] Work Phone: Lipase, Serumon 10-25-2021 Lipase [Catalytic activity/Vol] 30 U/L 9 - 82 [facility] shaileshogy-[facility] Work Phone: Comment on above: Venipuncture immedia tely after or during the administration of Metamizole may lead to falsely low results. Testing should be performed immediately prior to Metamizole dosing. Magnesium, Serumon 2 Magnesium [Mass/Vol] 1.88 mg/dL See Below [facility] astroente shaileshy-[place] Work Phone: Comment on above: Reference Range: 1.6 0 - 2.40 No Panel Informationon 10-25 >90 >90 [facility] charles[facility] Work Phone: Comment on above: CALCULATIONS OF LEIDY MATED GFR ARE PERFORMED USING THE 2020 CKD-EPI STUDY REFIT EQUATION WITHOUT THE RACE VARIABLE FOR THE IDMS-TRACEABLE CREATININE METHODS.https://jasn.asnjournals.org/content/early// N.9944474995 Phosphorus, Serumon 10-25-19 22 Phosphate [Mass/Vol] 3.6 mg/dL 2.5 - 4.9 [facility] astroente shaileshogy-[place] [facility] Work Phone: Comment on above: The performance carmen acteristics of phosphorus testing in heparinized plasma have been validated by the individual laboratory site where testing is performed. Testing on heparinized plasma is not approved by the FDA; however, such approval is not necessary. Laboratory - Chemistry and C hemistry - challengeon 10-24-2021 Glucose [Mass/Vol] 92 mg/dL 74 - 99 [facility] Work Phone: No Panel Informationon 10-24 Please click on the link to view the study images Normal [facility] Work Phone: [email or web address] {[email or web address]} [facility] Work Phone: [facility] Work Phone: MRI Secretin MRCPon 09-28-19 MRI Secretin MRCP Normal [facility]-Ishmael roente [facility] Work Phone: ACETONE SERUMon 08-17-2021 ACETONE Negative Normal NEGATIVE [facility] Comment on above: Performed By: #### A CETON #### [facility] [address] [place] [address] Dr. Louis Britton AMYLASEon 08-17-2021 AMYL <30 Critically low 31-110 [facility] Comment on above: Performed By: #### B MP, LIPA, FIOR #### [facility] [address] [place] [address] Dr. Louis Britton CBC AUTO DIFFon 08-17-2021 BASO # 0.0 103/ul Normal 0.0-0.1 [facility] Comment on above: Performed By: #### C BC #### [facility] [address] [place] [address] Dr. Louis Britton Basophils/100 WBC (Bld) 0.1 % Critically low 0.2-2.0 [facility] Comment on above: Performed By: #### C BC #### [facility] [address] [place] [address] Dr. Louis Britton EO # 0.1 103/ul Normal 0.0-0.7 [facility] Comment on above: Performed By: #### C BC #### [facility] [address] [place] [address] Dr. Louis Britton Eosinophils/100 WBC (Bld) 0.6 % Critically low 0.9-7.0 [facility] Comment on above: Performed By: #### C BC #### [facility] [address] [place] [address] Dr. Louis Britton Erythrocyte distribution width (RBC) [Ratio] 13.3 % Normal 11.0-15.0 [facility] Comment on above: Performed By: #### C BC #### [facility] [address] [place] [address] Dr. Louis Britton Hematocrit (Bld) [Volume fraction] 40.9 % Normal 36.0-48.0 [facility] Comment on above: Performed By: #### C BC #### [facility] [address] [place] [address] Dr. Louis Britton Hemoglobin (Bld) [Mass/Vol] 13.7 g/dL Normal 12.0-16.0 [facility] Comment on above: Performed By: #### C BC #### [facility] [address] [place] [address] Dr. Louis Britton IG # 0.04 10e3/ul Critically high 0.00-0.03 [facility] Comment on above: Performed By: #### C BC #### [facility] [address] [place] [address] Dr. Louis Britton IG % 0.4 % Normal 0.0-0.5 [facility] Comment on above: Performed By: #### C BC #### [facility] [address] [place] [address] Dr. Louis Britton LYMPH # 2.7 103/ul Normal 1.2-3.8 [facility] Comment on above: Performed By: #### C BC #### [facility] [address] [place] [address] Dr. Louis Britton Lymphocytes/100 WBC (Bld) 26.2 % Normal 20.5-60.0 [facility] Comment on above: Performed By: #### C BC #### [facility] [address] [place] [address] Dr. Louis Britton MANUAL DIFF REQ NO Normal [facility] Comment on above: Performed By: #### C BC #### [facility] [address] [place] [address] Dr. Louis Britton MCH (RBC) [Entitic mass] 30.6 pg Normal 26.7-34.0 [facility] Comment on above: Performed By: #### C BC #### [facility] [address] [place] [address] Dr. Louis Britton MCHC (RBC) [Mass/Vol] 33.5 g/dL Normal 29.9-35.2 [facility] Comment on above: Performed By: #### C BC #### [facility] [address] [place] [address] Dr. Louis Britton MCV (RBC) [Entitic vol] 91.5 fL Normal 81.0-99.0 [facility] Comment on above: Performed By: #### C BC #### [facility] [address] [place] [address] Dr. Louis Britton MONO # 0.3 103/ul Normal 0.3-0.8 [facility] Comment on above: Performed By: #### C BC #### [facility] [address] [place] [address] Dr. Louis Britton Monocytes/100 WBC (Bld) 2.9 % Normal 1.7-12.0 [facility] Comment on above: Performed By: #### C BC #### [facility] [address] [place] [address] Dr. Louis Britton NEUT # 7.1 103/ul Critically high 1.4-6.5 [facility] Comment on above: Performed By: #### C BC #### [facility] [address] [place] [address] Dr. Louis Britton Neutrophils/100 WBC (Bld) 69.8 % Normal 43.0-75.0 [facility] Comment on above: Performed By: #### C BC #### [facility] [address] [place] [address] Dr. Louis Britton Platelet mean volume (Bld) [Entitic vol] 10.1 fL Normal 9.5-13.5 [facility] Comment on above: Performed By: #### C BC #### [facility] [address] [place] [address] Dr. Louis Britton PLT 175 103/ul Normal 150-450 [facility] Comment on above: Performed By: #### C BC #### [facility] [address] [place] [address] Dr. Louis Britton RBC 4.47 106/ul Normal 4.20-5.40 [facility] Comment on above: Performed By: #### C BC #### [facility] [address] [place] [address] Dr. Louis Britton WBC 10.2 103/ul Normal 4.0-11.0 [facility] Comment on above: Performed By: #### C BC #### [facility] [address] [place] [address] Dr. Louis Britton ER URINE PROFILEon 1 Bilirubin Ql (U) Negative Normal NEGATIVE [facility] Comment on above: Performed By: #### C MP, LIPID #### [facility] [address] [place] [address] Dr. Louis Britton Clarity (U) CLEAR Normal CLEAR [facility] Comment on above: Performed By: #### C MP, LIPID #### [facility] [address] [place] [address] Dr. Louis Britton Color (U) DK. ORANGE Abnormal YELLOW [facility] Comment on above: Performed By: #### C MP, LIPID #### [facility] [address] [place] [address] Dr. Louis Britton ERUAHD A micrscopic examina tion will be performed if indicated. Normal [facility] Comment on above: Performed By: #### C MP, LIPID #### [facility] [address] [address] [address] Louis Britton Glucose Ql (U) Negative Normal NEGATIVE [facility] Comment on above: Performed By: #### C MP, LIPID #### [facility] [address] [place] [address] Dr. Louis Britton Hemoglobin Ql (U) MODERATE Abnormal NEGATIVE [facility] Comment on above: Performed By: #### C MP, LIPID #### [facility] [address] [address] [address] Louis Britton Ketones Ql (U) Negative Normal NEGATIVE [facility] Comment on above: Performed By: #### C MP, LIPID #### [facility] [address] [place] [address] Dr. Louis Britton LEUKOCYTES Negative Normal NEGATIVE [facility] Comment on above: Performed By: #### C MP, LIPID #### [facility] [address] [place] [address] Dr. Louis Britton Nitrite Ql (U) Negative Normal NEGATIVE [facility] Comment on above: Performed By: #### C MP, LIPID #### [facility] [address] [place] [address] Dr. Louis Britton pH (U) 5.5 [pH] Normal 5-9 [facility] Comment on above: Performed By: #### C MP, LIPID #### [facility] [address] [place] [address] Dr. Louis Britton Protein (U) [Mass/Vol] 100 mg/dL Abnormal NEGATIVE/ TRACE [facility] Comment on above: Performed By: #### C MP, LIPID #### [facility] [address] [place] [address] Dr. Louis Britton SPEC GRAVITY >=1.030 Abnormal 1.005-<=1.02 5 [facility] Comment on above: Performed By: #### C MP, LIPID #### [facility] [address] [place] [address] Dr. Louis Britton UR MICRO IND INDICATED Normal [facility] Comment on above: Performed By: #### C MP, LIPID #### [facility] [address] [place] [address] Dr. Louis Britton Urobilinogen Qn (U) 0.2 {Rubio'U}/dL Normal 0.2 - 1. 0 [facility] Comment on above: Performed By: #### C MP, LIPID #### [facility] [address] [place] [address] Dr. Louis Britton LIPASEon 08-17-2021 Lipase [Catalytic activity/Vol] 260.0 U/L Normal 23.0-300.0 [facility] Comment on above: Performed By: #### B MP, LIPA, FIOR #### [facility] [address] [place] [address] Dr. Louis Britton PH VENOUS BLOODon 08-17-2021 PCO2 VENOUS 33.0 mmHg Critically low 40.0-52.0 [facility] Comment on above: Performed By: #### C MP, LIPID #### [facility] [address] [place] [address] Dr. Louis Britton pH VENOUS 7.46 Critically high 7.33-7.43 [facility] Comment on above: Performed By: #### C MP, LIPID #### [facility] [address] [place] [address] Dr. Louis Britton URon 08-17-2021 , QUAL Negative Normal NEGATIVE [facility] Comment on above: Performed By: #### C MP, LIPID #### [facility] [address] [place] [address] Dr. Louis Britton PROF CHEM 8 (BAS METB)on Anion gap [Moles/Vol] 13.3 mmol/L Normal [facility] Comment on above: Performed By: #### B MP, LIPA, FIOR #### [facility] [address] [place] [address] Dr. Louis Britton Calcium [Mass/Vol] 9.3 mg/dL Normal 8.4-10.2 [facility] Comment on above: Performed By: #### B MP, LIPA, FIOR #### [facility] [address] [place], [place] [id number] Dr. Louis Britton Chloride [Moles/Vol] 97 mmol/L Critically low 98-107 [facility] Comment on above: Performed By: #### B JASPREET STEELE, FIOR #### [facility] [address] [place] [address] Dr. Louis Britton CO2 [Moles/Vol] 26.3 mmol/L Normal 22.0-30.0 [facility] Comment on above: Performed By: #### B JASPREET STEELE, FIOR #### [facility] [address] [place] [address] Dr. Louis Britton Creatinine [Mass/Vol] 0.93 mg/dL Normal 0.52-1.04 [facility] Comment on above: Performed By: #### B JASPREET STEELE, FIOR #### [facility] [address] [place] [address] Dr. Louis Britton EGFR-AF BULGARIAN >60 Normal >=60 [facility] Comment on above: Performed By: #### B JASPREET STEELE, FIOR #### [facility] [address] [place] [address] Dr. Louis Britton EGFR-NON AF BULGARIAN >60 Normal >=60 [facility] Comment on above: Performed By: #### B JASPREET STEELE, FIOR #### [facility] [address] [place] [address] Dr. Louis Britton Glucose [Mass/Vol] 181 mg/dL Critically high 74-106 [facility] Comment on above: Performed By: #### B JASPREET STEELE, FIOR #### [facility] [address] [place] [address] Dr. Louis Britton Potassium [Moles/Vol] 3.6 mmol/L Normal 3.4-5.0 [facility] Comment on above: Performed By: #### B JASPREET STEELE, FIOR #### [facility] [address] [place] [address] Dr. Louis Britton Sodium [Moles/Vol] 133 mmol/L Critically low 137-145 [facility] Comment on above: Performed By: #### B JASPREET STEELE, FIOR #### [facility] [address] [address] [address] Louis Britton Urea nitrogen [Mass/Vol] 21.0 mg/dL Critically high 7.0-17.0 [facility] Comment on above: Performed By: #### B MP, LIPA, IFOR #### [facility] [address] [place] [address] Dr. Louis Britton Urea nitrogen/Creatinine [Mass ratio] 22.6 mg/mg Normal [facility] Comment on above: Performed By: #### B MP, LIPA, FIOR #### [facility] [address] [place] [address] Dr. Louis Britton URINE MICROSCOPIC ONLYon BACTERIA TRACE Abnormal NONE SEEN [facility] Comment on above: Performed By: #### C MP, LIPID #### [facility] [address] [place] [address] Dr. Louis Britton Bacteria identified Cx Nom (U) NOT INDICATED Normal [facility] Comment on above: Performed By: #### C MP, LIPID #### [facility] [address] [place] [address] Dr. Louis Britton CAST NONE SEEN Normal NONE SEEN [facility] Comment on above: Performed By: #### C MP, LIPID #### [facility] [address] [place] [address] Dr. Louis Britton Crystals LM Nom (Urine sed) NONE SEEN Normal NONE SEEN [facility] Comment on above: Performed By: #### C MP, LIPID #### [facility] [address] [place] [address] Dr. Louis Britton Epithelial cells LM Ql (Urine sed) MANY Abnormal NONE SEEN /RARE [facility] Comment on above: Performed By: #### C MP, LIPID #### [facility] [address] [place] [address] Dr. Louis Britton MUCOUS SMALL Abnormal NONE SEEN [facility] Comment on above: Performed By: #### C MP, LIPID #### [facility] [address] [place] [address] Dr. Louis Britton RBC 2-5 Abnormal 0-2 [facility] Comment on above: Performed By: #### C MP, LIPID #### [facility] [address] [place], [place] [address] Dr. Louis Britton WBC 2-5 Abnormal NONE SEEN [facility] Comment on above: Performed By: #### C MP, LIPID #### [facility] [address] [place], [place] [address] Dr. Louis Britton XR ABD FLAT UP_PA Anastasia 08-17 XR ABD FLAT UP_PA CH EXAM: Acute abdomen series: HISTORY: Abdominal pain with nausea and vomiting, recently discharged from the hospital for Crohn's disease and pancreatitis. COMPARISON STUDY: 12/12/2011 FINDINGS: The upright frontal view of the chest shows clear and well-inflated lungs. The heart and mediastinum are normal. Flat and upright views of the abdomen and pelvis show a normal bowel gas pattern. There is a mild amount of stool in the colon. No abnormal calcifications are seen. The upright view the abdomen shows an S-shaped curvature of the thoracolumbar spine. Osseous structures are otherwise normal. IMPRESSION: Grossly negative for an acute intra-abdominal process. Electronically authenticated by: VICKY ONTIVEROS Date: 2021-08-17 13:16 Normal [facility] Covid-19 PCR (CVDTB)on 07-18 SARS-CoV-2 (COVID-19) RNA DESIRE+probe Ql (Unsp spec) Detected Critically abnormal NOT DETECTED [facility] Comment on above: Result Comment: This test is not yet approved or cleared by the [place] FDA. When there are no FDA-approved or cleared tests available, and other criteria are met, FDA can make tests available under an emergency access mechanism called an Emergency Use Authorization (EUA). The EUA for this test is supported by the [place] of Health and Human Service's (HHS's) declaration that circumstances exist to justify the emergency use of in vitro diagnostics for the detection and/or diagnosis of the virus that causes COVID-19. This EUA will remain in effect (meaning this test can be used) for the duration of the COVID-19 declaration justifying emergency of IVDs, unless it is terminated or revoked by FDA (after which the test may no longer be used). Performed By: #### C VDTBH #### [facility] [address] [place], [place] [address] Dr. Louis Britton CALPROTECTIN,FECALon 021 CALPROTECTIN,FECAL 95 ug/g High <=49 [facility] Comment on above: Result Comment: REFE RENCE INTERVAL: Calprotectin, Fecal by Immunoassay Less than 50 ug/g.........Normal 50-120 ug/g...............Borderline elevated, test should be re-evaluated in 4-6 weeks. 121 ug/g or greater.......Elevated Performed By: [facility] [address] [place] [address] Configuration Management Manager: Mami Elias MD Performed By: #### C ALPR #### [facility] [address] [place] [address] FAT, STOOLon 07-24-2021 NEUTRAL FAT Normal Normal Normal [facility] Comment on above: Performed By: #### F ATST #### [address] [address] SPLIT FAT Normal Normal Normal [facility] Comment on above: Result Comment: INTE RPRETIVE INFORMATION: Fecal Fat Qualitative Neutral fats include the monoglycerides, diglycerides, and triglycerides while split fats are the free fatty acids that are liberated from them. Impaired synthesis or secretion of pancreatic enzymes or bile may cause an increase in neutral fats while an increase in split fats suggests impaired absorption of nutrients. Performed By: [facility] [address] [place] [address] Configuration Management Manager: Mami Elias MD Performed By: #### F ATST #### [facility] [address] [place] [address] PANCREATIC ELASTASE,FECALon 07-24-2021 PANCREATIC ELASTASE,FECAL 139 ug/g Normal >=100 [facility] Comment on above: Result Comment: REFE RENCE INTERVAL: Pancreatic Elastase Fecal by Immunoassay Less than 100 ug/g............Severe insufficiency 100 - 199 ug/g................Moderate insufficiency 200 ug/g or greater...........Normal INTERPRETIVE INFORMATION: Pancreatic Elastase Fecal by Immunoassay Reference intervals do not apply for infants less than one month old. Performed by [facility], [address] [place] [address] [email or web address], Mami Elias MD - Lab. Director Performed By: #### E LAST #### [facility] [address] [place] [address] STOOL PATHOGEN PCR PANELon 1 09-20-2020 CAMPYLOBACTER GP. Not detected Normal NOT DETECTED [facility] Comment on above: Performed By: #### S TLPP #### [facility] [address] [place] [address] NOROVIRUS GI/GII Not detected Normal NOT DETECTED [facility] Comment on above: Performed By: #### S TLPP #### [facility] [address] [place] [id number] ROTAVIRUS A Not detected Normal NOT DETECTED [facility] Comment on above: Result Comment: The enteric PCR panel is a panel of sensitive and specific amplified nucleic acid tests indicated as an aid in the diagnosis of specific bacterial and viral agents of gastrointestinal illness, in conjunction with other clinical, laboratory, and epidemiological information. This test is not approved for monitoring these infections. Monitoring is available for Salmonella and Shigella infections-request test Stool PCR Follow-Up (STLPF) . Monitoring tests are not available at this time for other enteric agents in this panel. Performed By: #### S TLPP #### [facility] [address] [place] [address] SALMONELLA SP. Not detected Normal NOT DETECTED [facility] Comment on above: Performed By: #### S TLPP #### [facility] [address] [place] [address] SHIGA TOXIN 1 Not detected Normal NOT DETECTED [facility] Comment on above: Performed By: #### S TLPP #### [facility] [address] [place] [address] SHIGA TOXIN 2 Not detected Normal NOT DETECTED [facility] Comment on above: Performed By: #### S TLPP #### [facility] [address] [place] [address] SHIGELLA SP. Not detected Normal NOT DETECTED [facility] Comment on above: Performed By: #### S TLPP #### [facility] [address] [place] [address] [employer] Not detected Normal NOT DETECTED [facility] Comment on above: Performed By: #### S TLPP #### [facility] [address] [place] [address] YERSINIA ENTEROCOLITICA Not detected Normal NOT DETECTED [facility] Comment on above: Performed By: #### S TLPP #### [facility] [address] [place] [address] CLOST DIFF. TOXIN, PCRon CLOST.DIFF NAP 1 STRAIN (Presumptive) Canceled Normal Not Detected [facility] Comment on above: Order Comment: TEST CLOST DIFF. TOXIN, PCR WAS CANCELLED, 07/20/2021 12:02 FORMED STOOL RECEIVED, UNABLE TO PERFORM TESTING. Performed By: #### C DTPC #### [address] [id number] CLOST.DIFF.TOXIN,PCR Canceled Normal [facility] Comment on above: Order Comment: TEST CLOST DIFF. TOXIN, PCR WAS CANCELLED, 07/20/2021 12:02 FORMED STOOL RECEIVED, UNABLE TO PERFORM TESTING. Result Comment: This assay detects the presence of the tcdB (toxin B) gene via DNA amplification, and results should be interpreted in the context of the patients history and clinical findings. This test cannot be performed on formed stools or used as a test of cure, and should not be performed more than once per 7 days. Performed By: #### C DTPC #### [address] [id number] C. difficile toxin genes DESRIE+probe Ql (Stl) Canceled [facility] Work Phone: Comment on above: This assay detects t he presence of the tcdB (toxin B) gene via DNA amplification, and results should be interpreted in the context of the patients history and clinical findings. This test cannot be performed on formed stools or used as a test of cure, and should not be performed more than once per 7 days. CLOST DIFF. TOXIN, PCR Canceled See Below [facility]-Gastroente rology-Bolwel l 6 [facility] Work Phone: Comment on above: Reference Range: Not Detected CT ABDOMEN AND PELVIS W IV C [facility] 07-20-2021 CT ABDOMEN AND PELVIS W IV CONTRAST Patient Name: JULIETH SPENCER STUDY: CT ABDOMEN AND PELVIS W IV CONTRAST; 07/20/2021 11:08 am INDICATION: rule out acute on chronic pancreatitis vs. acute Crohn's Flare. COMPARISON: 11/03/2019 ACCESSION NUMBER(S): [id number] ORDERING CLINICIAN: BRENDA YEBOAH TECHNIQUE: CT of the abdomen and pelvis was performed. Standard contiguous axial images were obtained through the abdomen and pelvis. Coronal and sagittal reconstructions were performed. IV contrast: 90 mL Omnipaque 350. Oral contrast: 1 L water. FINDINGS: LOWER CHEST: Bibasilar atelectasis left greater than right. ABDOMEN: LIVER: Irregular foci of hypoattenuation anteroinferiorly adjacent to the falciform ligament may represent foci of fatty deposition although other etiologies are not excluded. BILE DUCTS: Mild intrahepatic biliary ductal dilatation and dilatation common duct up to 1.3 cm and common bile duct up to 8 mm overall grossly similar to prior. GALLBLADDER: Surgically absent. SPLEEN: Within normal limits. PANCREAS: Multiple calcifications scattered throughout the pancreas suggesting sequela of chronic pancreatitis. There is some mild peripancreatic stranding particular about the region of body and tail suggesting acute component pancreatitis. The peripancreatic fluid collections/pseudocysts present previously have resolved. ADRENAL GLANDS: Within normal limits. KIDNEYS AND URETERS: Tiny 2 mm density lower pole left kidney may represent nonobstructing stone. No hydronephrosis or hydroureter. BOWEL: Wall thickening versus incomplete distention of the stomach. Mildly prominent fluid-filled small bowel loops with some scattered air-fluid levels throughout. Mild colonic wall thickening involving ascending, portions of transverse, as well as descending and sigmoid colon. There is some mild stranding about the descending colon and sigmoid colon. Prominent colonic stool. Appendix appears within normal limits. Mild nonspecific thickened appearance distal colon and rectum. PERITONEUM/RETROPERITONE UM/LYMPH NODES: No free air. No free fluid or focal collection. Mildly prominent nonspecific mesenteric nodes. VASCULAR: Abdominal aorta is mildly atherosclerotic without aneurysm. 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 IVC is grossly patent. PELVIS: BLADDER: Mild to moderate bladder wall thickening particularly anteriorly. REPRODUCTIVE ORGANS: Cystic/follicular changes of the ovaries up to 1.6 cm on the left but otherwise suboptimally evaluated by CT. Approximate 4 mm focal hypodensity left anterior aspect of the uterus could reflect fibroids among other etiologies. Mild soft tissue prominence about the region of the lower uterine segment and cervix of uncertain significance. ABDOMINAL WALL: Small fat containing umbilical hernia. BONES: No suspicious osseous lesions. Mild degenerative changes visualized spine. ADDITIONAL FINDINGS: Approximate 2.2 cm ovoid low-density lesion within the left posterior pelvis between the distal descending colon and left psoas muscle, image 83. This is unchanged since prior. IMPRESSION: Multiple scattered pancreatic calcifications suggesting sequela of chronic pancreatitis and there is mild peripancreatic stranding particular about the body and tail suggesting acute component of pancreatitis. The inflammatory changes are less pronounced compared to that which was present previously and the peripancreatic fluid collections/pseudocysts present previously have resolved. Continued clinical correlation and follow-up advised. Mild wall thickening throughout the colon as described most notably involving ascending and portions of transverse as well as descending and sigmoid colon with some mild regional stranding about the descending and sigmoid colon suggesting sequela of colitis. Mild nonspecific thickened appearance distal colon and rectum. Clinical correlation and follow-up advised. Approximate 2.2 cm ovoid low-density lesion within the left posterior pelvis between the descending colon and left psoas muscle as described of uncertain etiology but similar to prior. Continued clinical correlation and follow-up advised. Intra and extrahepatic biliary ductal dilatation redemonstrated grossly similar to prior. Prior cholecystectomy. Mild to moderate bladder wall thickening particularly anteriorly. Cystic/follicular changes of the ovaries particular on the left. 4 mm low-density focus left anterior uterus could represent fibroid among other etiologies. There is also mild soft tissue prominence in the region of the lower uterine segment and cervix of uncertain significance and otherwise suboptimally evaluated by CT. Suggest clinical correlation and follow-up and consider ultrasound for further assess (more content not included)... Normal [facility] CT Abdomen and Pelvis with I V Contraston 07-20-2021 CT Abdomen and Pelvis W contrast IV Normal [facility]-Gastro[facility] rology-[facility] 6 [facility] Work Phone: Fecal Fat Screeningon 2020 Fecal Fat Screening Normal Normal MG-Ga stroente rology-Bolwel l 6 I Work Phone: Comment on above: INTERPRETIVE INFORMA TION: Fecal Fat QualitativeNeutral fats include the monoglycerides, diglycerides, andtriglycerides while split fats are the free fatty acidsthat are liberated from them. Impaired synthesis orsecretion of pancreatic enzymes or bile may cause anincrease in neutral fats while an increase in split fats suggests impaired absorption of nutrients.Performed By: [facility] [place] [address] [id number] Director: Mami Elias MD Laboratory - Chemistry and C hemistry - challengeon 07-20-2021 Calprotectin (Stl) [Mass/Mass] 95 ug/g above high threshold <=49 [facility]astro[facility] rology-[facility] l 6 I Work Phone: Comment on above: REFERENCE INTERVAL: Calprotectin, Fecal by Immunoassay Less than 50 ug/g.........Normal 50-120 ug/g...............Borderline elevated, test should be re-evaluated in 4-6 weeks. 121 ug/g or greater.......ElevatedPerformed By: [facility] [place] [address] [id number] Director: Mami Elias MD Pancreatic Elastase, Stoolon 07-20-2021 Elastase.pancreatic (Stl) [Mass/Mass] 139 ug/g >=100 [facility] 6 [facility] Work Phone: Comment on above: REFERENCE INTERVAL: Pancreatic Elastase Fecal by Immunoassay Less than 100 ug/g............Severe insufficiency 100 - 199 ug/g................Moderate insufficiency 200 ug/g or greater...........NormalINTERPRETIVE INFORMATION: Pancreatic Elastase Fecal by ImmunoassayReference intervals do not apply for infants less than one month old.Performed by [facility], [address] [place] [id number] www.[email or web address], Mami Elias MD - Lab. Director STOOL PATHOGEN PCR PANELon 09-19-2020 Lab Specimen Source Normal [facility] Comment on above: Performed By: #### S TLPP #### [facility] [address] [place] [address] Campylobacter sp DNA.diarrheagenic DESIRE+probe Ql (Stl) Not detected See Below [facility] 6 [facility] Work Phone: [phone] Comment on above: Reference Range: NOT DETECTED E. coli stx1 gene DESIRE+probe Ql (Unsp spec) Not detected See Below [facility] Work Phone: [phone] Comment on above: Reference Range: NOT DETECTED E. coli stx2 gene DESIRE+probe Ql (Unsp spec) Not detected See Below -[facility] 6 [facility] Work Phone: [phone] Comment on above: Reference Range: NOT DETECTED Norovirus genogroup I and II RNA DESIRE+probe Nom (Stl) Not detected See Below -Gastrosumma healthy-Bolwel l 6 [facility] Work Phone: [phone] Comment on above: Reference Range: NOT DETECTED Rotavirus RNA DESIRE+probe Nom (Stl) Not detected See Below -[facility] Work Phone: [phone] Comment on above: Reference Range: NOT DETECTED The enteric PCR panel is a panel of sensitive and specific amplified nucleic acid tests indicated as an aid in the diagnosis of specific bacterial and viral agents of gastrointestinal illness, in conjunction with other clinical, laboratory, and epidemiological information. This test is not approved for monitoring these infections. Monitoring is available for Salmonella and Shigella infections-request test Stool PCR Follow-Up (STLPF) . Monitoring tests are not available at this time for other enteric agents in this panel. Shigella sp DNA DESIRE+probe Ql (Unsp spec) Not detected See Below -[facility] Work Phone: [phone] Comment on above: Reference Range: NOT DETECTED Vibrio sp DNA DESIRE+probe Nom (Unsp spec) Not detected See Below [facility] I Work Phone: [phone] Comment on above: Reference Range: NOT DETECTED Yersinia sp DNA DESIRE+probe Nom (Unsp spec) Not detected See Below [facility] 6 I Work Phone: [phone] Comment on above: SOURCE: Reference Ra nge: NOT DETECTED STOOL PATHOGEN PCR PANEL Not detected See Below [facility] healthmanny[facility]all l 6 I Work Phone: [phone] Comment on above: Reference Range: NOT DETECTED Amylase, Serumon 06-29-2021 Amylase [Catalytic activity/Vol] 18 U/L below low threshold 29 - 103 [facility] 6 I Work Phone: [phone] Reactive Protein, Serumon 06-29-2021 CRP [Mass/Vol] 0.13 mg/dL -Gastroe e [facility] 6 I Work Phone: [phone] Comment on above: REF VALUE< 1.00 Complete Blood Count + [facility] 06-29-2021 Basophils/100 WBC (Bld) 0.7 % 0.0 - 2.0 [facility] 6 I Work Phone: [phone] Erythrocyte distribution width (RBC) [Ratio] 15.5 % above high threshold See Below [facility] I Work Phone: [phone] Comment on above: Reference Range: 11. 5 - 14.5 Hematocrit (Bld) [Volume fraction] 40.1 % See Below [facility] Daytonl l 6 I Work Phone: [phone] Comment on above: Reference Range: 36. 0 - 46.0 Hemoglobin (Bld) [Mass/Vol] 12.8 g/dL See Below [facility]astrosum[facility] healthyMad[facility] Hospitall l 6 I Work Phone: Comment on above: Reference Range: 12. 0 - 16.0 Lymphocytes/100 WBC (Bld) 34.1 % See Below [facility]astro[facility] rology-[facility] l 6 [facility] Work Phone: [phone] Comment on above: Reference Range: 13. 0 - 44.0 MCHC (RBC) [Mass/Vol] 31.9 g/dL below low threshold See Below [facility] 6 [facility] Work Phone: [phone] Comment on above: Reference Range: 32. 0 - 36.0 MCV (RBC) [Entitic vol] 98 fL 80 - 100 [facility] 6 I Work Phone: [phone] Monocytes/100 WBC (Bld) 6.6 % 2.0 - 10.0 [facility] 6 I Work Phone: [phone] Neutrophils/100 WBC (Bld) 57.3 % See Below [facility]astro[facility] ro[facility]y-[facility] l 6 [facility] Work Phone: [phone] Comment on above: Reference Range: 40. 0 - 80.0 Platelets (Bld) [#/Vol] 250 10*3/uL 150 - 450 [facility] 6 [facility] Work Phone: [phone] RBC (Bld) [#/Vol] 4.08 {x10E12/L} See Below [facility] -Gastroente rology-[facility] l 6 [facility] Work Phone: Comment on above: Reference Range: 4.0 0 - 5.20 WBC (Bld) [#/Vol] 8.8 10*3/uL 4.4 - 11.3 MG-Gas troente rology-[facility]olwel l 6 [facility] Work Phone: [phone] Complete Blood Count + Differential 0.06 {x10E9/L} See Below [facility]astro[facility] rology-[facility] l 6 [facility] Work Phone: Comment on above: Reference Range: 0.0 0 - 0.10 Complete Blood Count + Differential 0.09 {x10E9/L} See Below [facility]astroente rology-[facility] l 6 [facility] Work Phone: Comment on above: Reference Range: 0.0 0 - 0.70 Complete Blood Count + Differential 0.58 {x10E9/L} See Below [facility]astroente rology-[facility] l 6 [facility] Work Phone: Comment on above: Reference Range: 0.1 0 - 1.00 Complete Blood Count + Differential 2.99 {x10E9/L} See Below [facility] I Work Phone: Comment on above: Reference Range: 1.2 0 - 4.80 Complete Blood Count + Differential 5.01 {x10E9/L} See Below [facility] 6 I Work Phone: Comment on above: Reference Range: 1.2 0 - 7.70 Complete Blood Count + Differential 1.0 % 0.0 - 6.0 [facility] 6 I Work Phone: Complete Blood Count + Differential 0.3 % 0.0 - 0.9 [facility] 6 I Work Phone: Comment on above: Immature Granulocyte Count (IG) includes promyelocytes, myelocytes and metamyelocytes but does not include bands. Percent differential counts (%) should be interpreted in the context of the absolute cell counts (cells/L). Complete Blood Count + Differential 0.0 {/100_WBC} 0.0-0.0 [facility] 6 I Work Phone: Laboratory - Chemistry and C hemistry - challengeon 06-29-2021 Albumin BCP dye [Mass/Vol] 4.4 g/dL 3.4 - 5.0 [facility]astro[facility] rology-[facility] l 6 I Work Phone: ALP [Catalytic activity/Vol] 59 U/L 33 - 110 [facility] 6 [facility] Work Phone: [phone] ALT With P-5'-P [Catalytic activity/Vol] 13 U/L 7 - 45 [facility] ro[facility] 6 [facility] Work Phone: [phone] Comment on above: Patients treated wit h Sulfasalazine may generate falsely decreased results for ALT. Anion gap [Moles/Vol] 14 mmol/L 10 - 20 [facility]- Gastroente rology-[facility] l 6 [facility] Work Phone: [phone] AST With P-5'-P [Catalytic activity/Vol] 17 U/L 9 - 39 [facility] rology-[facility] 6 [facility] Work Phone: [phone] Bilirubin [Mass/Vol] 0.6 mg/dL 0.0 - 1.2 MG-G astroente rology-Bolwel l 6 I Work Phone: [phone] Calcium [Mass/Vol] 9.4 mg/dL 8.6 - 10.6 MG-Gas troente rology-[facility] l 6 [facility] Work Phone: [phone] Chloride [Moles/Vol] 102 mmol/L 98 - 107 MG-G astroente rology-Bolwel l 6 I Work Phone: [phone] CO2 [Moles/Vol] 25 mmol/L 21 - 32 [facility]-Gastro ente rology-[facility]ol[facility]el l 6 [facility] Work Phone: [phone] Creatinine [Mass/Vol] 0.92 mg/dL See Below MG- Gastroente rology-[facility] l 6 [facility] Work Phone: [phone] Comment on above: Reference Range: 0.5 0 - 1.05 Glucose [Mass/Vol] 82 mg/dL 74 - 99 [facility]-Gas troente rology-[facility] l 6 [facility] Work Phone: [phone] Potassium [Moles/Vol] 4.1 mmol/L 3.5 - 5.3 MG- Gastroente rology-[facility] l 6 [facility] Work Phone: [phone] Protein [Mass/Vol] 7.8 g/dL 6.4 - 8.2 [facility]-Gas troente rology-[facility] l 6 [facility] Work Phone: [phone] Sodium [Moles/Vol] 137 mmol/L 136 - 145 [facility]-Gas troente rology-[facility] l 6 [facility] Work Phone: [phone] Urea nitrogen [Mass/Vol] 15 mg/dL 6 - 23 [facility] 6 [facility] Work Phone: [phone] Lipase, Serumon 06-29-2021 Lipase [Catalytic activity/Vol] 9 U/L 9 - 82 [facility] 6 [facility] Work Phone: Comment on above: Venipuncture immedia tely after or during the administration of Metamizole may lead to falsely low results. Testing should be performed immediately prior to Metamizole dosing. No Panel Informationon 06-29 >60 >60 [facility]astro[facility] rology[facility] 6 [facility] Work Phone: [phone] Comment on above: CALCULATIONS OF LEIDY MATED GFR ARE PERFORMED USING THE MDRD STUDY EQUATION FOR THE IDMS-TRACEABLE CREATININE METHODS. CLIN CHEM 2007;53:766-72 Tobacco Screening.on 021 Fall risk assessment a) No falls within the last year [facility] 6 [facility] Work Phone: [phone] Tobacco use status CPHS a) Yes [facility]astro[facility] 6 [facility] Work Phone: [phone] Tobacco Screening. Yes MG-Gas troente rology-[facility] l 6 [facility] Work Phone: [phone] Urinalysison 06-29-2021 Color (U) YELLOW See Below [facility]-Gastroente rology-[facility] l 6 [facility] Work Phone: Comment on above: Reference Range: STR AW,YELLOW Glucose Ql (U) Negative NEGATIVE MG-Gastroe nte rology-Bolwel l 6 [facility] Work Phone: [phone] Ketones Ql (U) Negative NEGATIVE MG-Gastroe nte rology-Bolwel l 6 [facility] Work Phone: [phone] Leukocyte esterase Test strip Ql (U) Negative NEGATIVE [facility]-Gastroente rology-[facility] l 6 [facility] Work Phone: [phone] pH (U) 6.0 [pH] 5.0 - 8.0 [facility]-Gastroente rology-[facility] l 6 [facility] Work Phone: [phone] Protein (U) [Mass/Vol] Negative NEGATIVE [facility]-Gastroente rology-[facility] l 6 [facility] Work Phone: [phone] RBC (U) [#/Vol] Negative NEGATIVE MG-Gastro ente rology-Bolwel l 6 [facility] Work Phone: [phone] Specific gravity (U) [Rel density] 1.016 1 See Below [facility]-Gastroente rology-[facility] l 6 [facility] Work Phone: [phone] Comment on above: Reference Range: 1.0 05 - 1.035 Urinalysis Negative NEGATIVE [facility]-Gastroente rology-[facility] l 6 [facility] Work Phone: [phone] Urinalysis <2.0 0.0 - 1.9 [facility]-Gastroente rology-[facility] l 6 [facility] Work Phone: [phone] Urinalysis CLEAR CLEAR [facility]-Gastroente rology-[facility] l 6 [facility] Work Phone: Urine Teston 06-29 HCG ( test) Ql (U) Negative Negative [facility]-Gastroente rology-[facility]el l 6 [facility] Work Phone: Otheron 02-12-2020 Patient Name: Noe Truong Date: 02/12/2020 8:49 AMMRN: [id number] Number: [id number] of : 1985Admit [facility]Ethnicity: Not or LatinoRace: WhiteAttending MD: Meka Ang , RODRIGOrocedure: ERCPIndications: Stent change vs Pancreatic stent removalComorbidities: chronic pancreatitis with possible stricture in HOP, s/p 7Fr stent placementPatient Profile: This is a 34 year old female.Providers: Meka Ang MD (Doctor), Vicky Salamanca RN (Nurse), Peg Bonilla RN (Nurse)Referring: Nehemiah Alexander J.[facility]IAL HOSPITALedicines: Indomethacin 100 mg IN, Monitored Anesthesia CareComplications: No immediate complications.Procedure: Pre-Anesthesia Assessment: - Prior to the procedure, a History and Physical was performed, and patient medications and allergies were reviewed. The patient is competent. The risks and benefits of the procedure and the sedation options and risks were discussed with the patient. All questions were answered and informed consent was obtained. Patient identification and proposed procedure were verified by the physician and the nurse in the procedure room. Mental Status Examination: alert and oriented. Prophylactic Antibiotics: The patient does not require prophylactic antibiotics. Prior Anticoagulants: The patient has taken no previous anticoagulant or antiplatelet agents. ASA Grade Assessment: III - A patient with severe systemic disease. After reviewing the risks and benefits, the patient was deemed in satisfactory condition to undergo the procedure. The anesthesia plan was to use monitored anesthesia care (MAC). Immediately prior to administration of medications, the patient was re-assessed for adequacy to receive sedatives. The heart rate, respiratory rate, oxygen saturations, blood pressure, adequacy of pulmonary ventilation, and response to care were monitored throughout the procedure. The physical status of the patient was re-assessed after the procedure. After obtaining informed consent, the scope was passed under direct vision. Throughout the procedure, the patient's blood pressure, pulse, and oxygen saturations were monitored continuously. The therapeutic duodenoscope was introduced through the mouth, and advanced to the duodenum and used to inject contrast into the bile, dorsal and ventral pancreatic ducts. The ERCP was accomplished without difficulty. The patient tolerated the procedure well.Findings: A pancreatic stent was visible on the project engineering manager film. One stent was removed from the pancreatic duct using a snare. A short 0.035 inch Soft Jagwire was passed into the ventral pancreatic duct. The ventral pancreatic duct was then deeply cannulated with the short-nosed traction sphincterotome. Contrast was injected. I personally interpreted the pancreatic duct images. Ductal flow of contrast was adequate. Diffuse irregularity of the pancreatic duct was seen in the main pancreatic duct. No clear striture appreciated though imaging in head was poor as contrast was easily running out into duodenum. Bile duct was dilated with distal tapering but drained quickly. Air filled the bile duct. Diffuse moderate inflammation with hemorrhage characterized by adherent blood was found in the entire examined stomach. No ulcer clearly identified.Moderate Sedation: N/AImpression: - Gastritis with punctate hemorrhage. - An irregularity was found in the main pancreatic duct, no focal stricture. - One stent was removed from the pancreatic duct- not replaced.Estimated Blood Loss: Estimated blood loss: none.Recommendation: - Discharge patient to home. - Patient has a contact number available for emergencies. The signs and symptoms of potential delayed complications were discussed with the patient. Return to normal activities tomorrow. Written discharge instructions were provided to the patient. - Observe patient's clinical course. - Watch for pancreatitis, bleeding, perforation, and cholangitis. - Continue present medications. - Return to GI clinic in 4 weeks- pt will need to bring imaging from [facility] to the appointment with Dr Alexander.Procedure Code(s): --- Professional --- 68823, Endoscopic retrograde cholangiopancreatography (ERCP); with removal of foreign body(s) or stent(s) from biliary/pancreatic duct(s) 87881, Endoscopic catheterization of the pancreatic ductal system, radiological supervision and interpretationDiagnosis Code(s): --- Professional --- Z46.59, Encounter for fitting and adjustment of other gastrointestinal appliance and device R93.2, Abnormal findings on diagnostic imaging of liver and biliary tractCPT copyright 2019 [employer]. All rights reserved.The codes documented in this report are preliminary and upon warehouse receiving clerk review may be revised to meet current compliance requirements.Attending Participation: I personally performed the entire procedure.Meka Ang MD02/12/2020 9:42:03 AMThis report has been signed electronically.Number of Addenda: 0Note Initiated On: 02/12/2020 8:49 AMTotal Procedure Duration Time 0 hours 22 minutes 51 seconds MG-Gastroente Dillon schmid 6 [facility] Work Phone: [email or web address] {[email or web address]} MG-Gastroente rology-Bolwel l 6 [facility] Work Phone: Otheron 11-12-2019 SEE BELOW MG-Gastroente rology-Bolwel l 6 [facility] Work Phone: Comment on above: Results will be sent on a separate report.The reference lab report can be found in [facility] (Inpatient) under the Results tab by Laboratory, Genetics by date of service. Vital Signs Date Time Vital Sign Value Performing Clinician Facility 12-05-2023 10:52-0400 Body height 160.02 cm [facility] [place] 12-05-2023 10:52-0400 Body mass index (BMI) [Ratio] 18.1 kg/m2 [facility] 12-05-2023 10:52-0400 Body weight 46.43 kg [facility] 12-05-2023 10:52-0400 Diastolic blood pressure 97 mm[Hg] [facility] 12-05-2023 10:52-0400 Heart rate 93 /min [facility] 12-05-2023 10:52-0400 Respiratory rate 12 /min [facility] 12-05-2023 10:52-0400 Systolic blood pressure 145 mm[Hg] [facility] 11-06-2023 08:53-0500 Body temperature 95.9 [degF] Tray Burk MD Work Phone: [facility] 11-06-2023 08:53-0500 Diastolic blood pressure 72 mm[Hg] Tray Burk MD Work Phone: [facility] 11-06-2023 08:53-0500 Heart rate 69 /min Tray Burk MD Work Phone: [facility] 11-06-2023 08:53-0500 Respiratory rate 18 /min Tray Burk MD Work Phone: [facility] 11-06-2023 08:53-0500 SaO2% (BldA) [Mass fraction] 97 % Tray Burk MD Work Phone: [facility] 11-06-2023 08:53-0500 Systolic blood pressure 114 mm[Hg] Tray Burk MD Work Phone: [facility] 11-01-2023 23:11-0500 Body temperature 37.0 degrees Celsius [facility] Comment on above: Performed By: #### [id number] ####GARRY Schmid ([id number])[facility] ([facility])[address] [place] [address] 11-01-2023 21:48-0500 Body temperature 37.0 Tray Burk MD Work Phone: [facility] 11-01-2023 20:17-0500 Body temperature 37.0 degrees [facility] Comment on above: Performed By: #### [id number] ####GARRY Schmid ([id number])[facility] ([facility])[address] [place] [address] 11-01-2023 18:33-0500 Body temperature 37.0 Tray Burk MD Work Phone: [facility] 11-01-2023 18:05-0500 Body temperature 37.0 degrees [facility] Comment on above: Performed By: #### [id number] ####GARRY Schmid ([id number])[facility] ([facility])[address] [place] [address] 11-01-2023 16:24-0500 Body temperature 37.0 degrees [facility] Comment on above: Performed By: #### [id number] ####GARRY Schmid ([id number])[facility] ([facility])[address] [place] [address] 11-01-2023 16:22-0500 Body temperature 37.0 Tray Burk MD Work Phone: [facility] 11-01-2023 14:45-0500 Body temperature 37.0 degrees [facility] Comment on above: Performed By: #### [id number] ####GARRY Schmid ([id number])[facility] ([facility])[address] [place] [address] 11-01-2023 14:33-0500 Body temperature 37.0 Tray Burk MD Work Phone: [facility] 11-01-2023 12:51-0500 Body temperature 37.0 Tray Burk MD Work Phone: [facility] 11-01-2023 11:19-0500 Body temperature 37.0 degrees [facility] Comment on above: Performed By: #### [id number] ####GARRY Schmid ([id number])[facility] ([facility])[address] [place] [address] 11-01-2023 09:27-0500 Body temperature 37.0 Tray Burk MD Work Phone: [facility] 11-01-2023 06:58-0500 Body temperature 37.0 degrees [facility] Comment on above: Performed By: #### [id number] ####GARRY Schmid ([id number])[facility] ([facility])[address] [place] [address] 11-01-2023 06:04-0500 Body temperature 37.0 degrees [facility] Comment on above: Performed By: #### [id number] ####GARRY Schmid ([id number])[facility] ([facility])[address] [place] [address] 11-01-2023 05:02-0500 Body temperature 37.0 Tray Burk MD Work Phone: [facility] 11-01-2023 04:08-0500 Body temperature 37.0 Tray Burk MD Work Phone: [facility] 11-01-2023 03:13-0500 Body temperature 37.0 degrees [facility] Comment on above: Performed By: #### [id number] ####GARRY Schmid ([id number])[facility] ([facility])[address] [place] [address] 11-01-2023 02:37-0500 Body mass index (BMI) [Ratio] 18.24 kg/m2 Tray Burk MD Work Phone: [facility] 11-01-2023 02:37-0500 Body weight 48.2 kg Tray Burk MD Work Phone: [facility] 11-01-2023 01:29-0500 Body temperature 37.0 Tray Burk MD Work Phone: [phone])[phone] [place] [address] 11-01-2023 01:18-0500 Body height 162.6 cm Tray Burk MD Work Phone: [facility] 10-11-2023 19:59-0500 Body temperature 37.0 degrees [facility] Comment on above: Performed By: #### [id number] ####GARRY Schmid ([id number])[facility] ([facility])[address] [place] [address] 10-11-2023 19:59-0500 SaO2% (BldA) [Mass fraction] 100 % [facility] Comment on above: Performed By: #### [id number] ####GARRY Schmid ([id number])[facility] ([facility])[address] [place] [address] 10-11-2023 15:07-0500 Body temperature 37.0 degrees [facility] Comment on above: Performed By: #### [id number] ####GARRY Schmid ([id number])[facility] ([facility])[address] [place] [address] 10-11-2023 15:07-0500 SaO2% (BldA) [Mass fraction] 100 % [facility] Comment on above: Performed By: #### [id number] ####GARRY Schmid ([id number])[facility] ([facility])[address] [place] [address] 10-11-2023 10:15-0500 Body temperature 37.0 degrees [facility] Comment on above: Performed By: #### [id number] ####GARRY Schmid ([id number])[facility] ([facility])[address] [place] [address] 10-11-2023 10:15-0500 SaO2% (BldA) [Mass fraction] 99 % [facility] Comment on above: Performed By: #### [id number] ####GARRY Schmid ([id number])[facility] ([facility])[address] [place] [address] 08-19-2023 14:58-0500 Body mass index (BMI) [Ratio] 20.46 kg/m2 Tray Burk MD Work Phone: [facility] 08-19-2023 14:58-0500 Body temperature 98.1 [degF] Tray Burk MD Work Phone: 5(292)[phone] [place] [address] 08-19-2023 14:58-0500 Body weight 52.4 kg Tray Burk MD Work Phone: [facility] 08-19-2023 14:58-0500 Diastolic blood pressure 93 mm[Hg] Tray Burk MD Work Phone: [facility] 08-19-2023 14:58-0500 Heart rate 84 /min Tray Burk MD Work Phone: [facility] 08-19-2023 14:58-0500 Respiratory rate 18 /min Tray Burk MD Work Phone: [facility] 08-19-2023 14:58-0500 Systolic blood pressure 134 mm[Hg] Tray Burk MD Work Phone: [facility] 07-31-2023 15:00-0500 Body height 160.02 cm Nat Ball Other [facility] [employer] [facility] Other 07-31-2023 15:00-0500 Body mass index (BMI) [Ratio] 20.33 kg/m2 Nat Ball Other [employer] [facility] Other 07-31-2023 15:00-0500 Body weight 52.07 kg Nat Ball Other [employer] [facility] Other 07-31-2023 15:00-0500 Diastolic blood pressure 86 mm[Hg] Nat Ball Other [employer] [facility] Other 07-31-2023 15:00-0500 Respiratory rate 12 /min Nat Ball Other [employer] [facility] Other 07-31-2023 15:00-0500 Systolic blood pressure 122 mm[Hg] Nat Ball Other [facility] [facility] Other 07-22-2023 14:17-0500 Body mass index (BMI) [Ratio] 21.05 kg/m2 Tray Burk MD Work Phone: [facility] 07-22-2023 14:17-0500 Body temperature 97.7 [degF] Tray Burk MD Work Phone: [facility] 07-22-2023 14:17-0500 Body weight 53.9 kg Tray Burk MD Work Phone: [facility] 07-22-2023 14:17-0500 Diastolic blood pressure 94 mm[Hg] Tray Burk MD Work Phone: [facility] 07-22-2023 14:17-0500 Heart rate 106 /min Tray Burk MD Work Phone: [facility] 07-22-2023 14:17-0500 Respiratory rate 18 /min Tray Burk MD Work Phone: [facility] 07-22-2023 14:17-0500 SaO2% (BldA) [Mass fraction] 96 % Tray Burk MD Work Phone: [facility] 07-22-2023 14:17-0500 Systolic blood pressure 138 mm[Hg] Tray Burk MD Work Phone: [facility] 07-20-2023 11:34-0400 Body temperature 98.1 [degF] DO Nat Ball Work Phone: [facility] 07-20-2023 11:34-0400 Diastolic blood pressure 91 mm[Hg] DO Nat Ball Work Phone: [facility] 07-20-2023 11:34-0400 Heart rate 78 /min DO Nat Ball Work Phone: [facility] 07-20-2023 11:34-0400 Respiratory rate 16 /min DO Nat Ball Work Phone: [facility] 07-20-2023 11:34-0400 SaO2% (BldA) [Mass fraction] 98 % DO Nat Ball Work Phone: [facility] 07-20-2023 11:34-0400 Systolic blood pressure 135 mm[Hg] DO Nat Ball Work Phone: [facility] 07-20-2023 06:15-0400 Body weight 55.3 kg DO Nat Ball Work Phone: [facility] 07-19-2023 10:00-0400 Body height 160.02 cm DO Nat Ball Work Phone: [facility] 07-16-2023 02:38-0400 Diastolic blood pressure 87 mm[Hg] DO Nat Ball Work Phone: [facility] 07-16-2023 02:38-0400 Heart rate 67 /min DO Nat Ball Work Phone: [facility] 07-16-2023 02:38-0400 SaO2% (BldA) [Mass fraction] 100 % DO Nat Ball Work Phone: [facility] 07-16-2023 02:38-0400 Systolic blood pressure 131 mm[Hg] DO Nat Ball Work Phone: [facility] 07-16-2023 01:24-0400 Respiratory rate 16 /min DO Nat Ball Work Phone: [facility] 07-15-2023 20:41-0400 Body temperature 98.6 [degF] DO Nat Ball Work Phone: [facility] 07-15-2023 17:55-0400 Body height 160.02 cm DO Nat Ball Work Phone: [facility] 07-15-2023 17:55-0400 Body weight 51.9 kg DO Nat Ball Work Phone: [facility] 04-10-2023 11:15-0400 Body height 160.02 cm Nat Ball Other [facility] [employer] Other 04-10-2023 11:15-0400 Body mass index (BMI) [Ratio] 19.55 kg/m2 Nat Ball Other [facility] [employer] Other 04-10-2023 11:15-0400 Body weight 50.08 kg Nat Ball Other [facility] [employer] [facility] Other 04-10-2023 11:15-0400 Diastolic blood pressure 92 mm[Hg] Nat Ball Other [facility] [facility] Other 04-10-2023 11:15-0400 Respiratory rate 12 /min Nat Ball Other [facility] [facility] Other 04-10-2023 11:15-0400 Systolic blood pressure 135 mm[Hg] Nat Ball Other [facility] [facility] Other 12-17-2022 11:30-0400 Body height 160.02 cm Nat Ball Other [facility] [facility] Other 12-17-2022 11:30-0400 Body mass index (BMI) [Ratio] 19.38 kg/m2 Nat Ball Other [facility] [facility] Other 12-17-2022 11:30-0400 Body weight 49.62 kg Nat Ball Other [facility] [facility] Other 12-17-2022 11:30-0400 Diastolic blood pressure 70 mm[Hg] Nat Ball Other [facility] [facility] [facility] Other 12-17-2022 11:30-0400 Respiratory rate 12 /min Nat Ball Other [employer] [facility] Other 12-17-2022 11:30-0400 Systolic blood pressure 109 mm[Hg] Nat Ball Other [employer] Other 09-27-2022 12:10-0500 Body height 160.02 cm Nat E Ball Work Phone: [facility] Work Phone: 09-27-2022 12:10-0500 Body mass index (BMI) [Ratio] 19.49 kg/m2 Nat E Ball Work Phone: [facility]uq[facility]xnfw[facility] 4[facility] Work Phone: 09-27-2022 12:10-0500 Body surface area Derived from formula 1.5 m2 Nat E Ball Work Phone: ER[facility]tzrmrz[facility]oydu[facility] 4[facility] Work Phone: 09-27-2022 12:10-0500 Body weight 49.9 kg Nat E Ball Work Phone: ID-Pxfjwdw-[facility]fltmeiP[facility] 4[address] Work Phone: 09-27-2022 12:10-0500 Diastolic blood pressure 72 mm[Hg] Nat E Ball Work Phone: OE[facility]vgsrfv[facility]vqbw[facility] 4[address] Work Phone: 09-27-2022 12:10-0500 Heart rate 70 /min Nat E Ball Work Phone: [facility] Work Phone: 09-27-2022 12:10-0500 Systolic blood pressure 106 mm[Hg] Nat E Ball Work Phone: RY-Dxppkpm-[facility]zqxcoaP[facility] 4[facility] Work Phone: 08-15-2022 11:45-0500 Diastolic blood pressure 75 mm[Hg] Nat Ball Other Phone: [facility] 08-15-2022 11:45-0500 Heart rate 73 /min Nat Ball Other Phone: [facility] 08-15-2022 11:45-0500 Respiratory rate 16 /min Nat Ball Other Phone: [facility] 08-15-2022 11:45-0500 SaO2% (BldA) [Mass fraction] 98 % Nat Ball Other Phone: [facility] 08-15-2022 11:45-0500 Systolic blood pressure 108 mm[Hg] Nat Ball Other Phone: [facility] 08-14-2022 23:53-0500 Body temperature 37.0 {degrees_C} Nat E Ball Work Phone: [facility] Work Phone: Comment on above: NOTE: PATIENT RESULTS ARE NOT CORRECTED FOR TEMPERATURE. 05-10-2022 11:41-0400 Body height 160 cm Vicky Whaley MD Work Phone: [facility] 05-10-2022 11:41-0400 Body weight 47.63 kg Vicky Whaley MD Work Phone: [facility] 05-10-2022 11:41-0400 Diastolic blood pressure 77 mm[Hg] Vicky Whaley MD Work Phone: [facility] 05-10-2022 11:41-0400 Heart rate 90 /min Vicky Whaley MD Work Phone: [facility] 05-10-2022 11:41-0400 Systolic blood pressure 118 mm[Hg] Vicky Whaley MD Work Phone: [facility] 05-08-2022 09:15-0400 Body height 160.02 cm Tondra Mapus Other [facility] [facility] Other 05-08-2022 09:15-0400 Body mass index (BMI) [Ratio] 19.47 kg/m2 Tondra Mapus Other [facility] [facility] Other 05-08-2022 09:15-0400 Body weight 49.85 kg Tondra Mapus Other [facility] [facility] Other 05-08-2022 09:15-0400 Diastolic blood pressure 73 mm[Hg] Tondra Mapus Other [facility] [facility] Other 05-08-2022 09:15-0400 Respiratory rate 18 /min Tondra Mapus Other [facility] [facility] Other 05-08-2022 09:15-0400 SaO2% (BldA) [Mass fraction] 96 % Tondra Mapus Other [facility] [facility] Other 05-08-2022 09:15-0400 Systolic blood pressure 116 mm[Hg] Tondra Mapus Other [facility] [facility] Other 03-12-2022 15:12-0400 Body height 160.02 cm No PCP None [facility] Work Phone: 03-12-2022 15:12-0400 Body mass index (BMI) [Ratio] 18.71 kg/m2 No PCP None [facility] -[facility] Work Phone: 03-12-2022 15:12-0400 Body surface area Derived from formula 1.47 m2 No PCP None [facility] [facility] Work Phone: 03-12-2022 15:12-0400 Body temperature 98.24 [degF] No PCP None [facility]y -[facility] Work Phone: 03-12-2022 15:12-0400 Body weight 47.9 kg No PCP None [facility] -[place] [facility] Work Phone: 03-12-2022 15:12-0400 Diastolic blood pressure 80 mm[Hg] No PCP None [facility] [facility] Work Phone: 03-12-2022 15:12-0400 Heart rate 72 /min No PCP None [facility]: 03-12-2022 15:12-0400 Respiratory rate 18 /min No PCP None [facility]astroentero logy -[facility] Work Phone: 03-12-2022 15:12-0400 SaO2% (BldA) [Mass fraction] 100 % No PCP None [facility] [facility] Work Phone: 03-12-2022 15:12-0400 Systolic blood pressure 122 mm[Hg] No PCP None [facility] [facility] Work Phone: 03-12-2022 15:12-0400 4 1 No PCP None [facility] -[place] [facility] Work Phone: Comment on above: [facility] 01-22-2022 08:00-0400 Body temperature 97.88 [degF] No Pcp Required [facility] 01-22-2022 08:00-0400 Diastolic blood pressure 91 mm[Hg] No Pcp Required [facility] 01-22-2022 08:00-0400 Heart rate 63 /min No Pcp Required [facility] 01-22-2022 08:00-0400 Respiratory rate 18 /min No Pcp Required [facility] 01-22-2022 08:00-0400 SaO2% (BldA) [Mass fraction] 98 % No Pcp Required [facility] 01-22-2022 08:00-0400 Systolic blood pressure 131 mm[Hg] No Pcp Required [facility] 01-13-2022 11:05-0400 Body height 160.02 cm Marianne Tucker Other [facility] [facility] Other 01-13-2022 11:05-0400 Body mass index (BMI) [Ratio] 20.37 kg/m2 Marianne Dominguezler Other [facility] [facility] Other 01-13-2022 11:05-0400 Body temperature 98.9 [degF] Marianne Tucker Other [facility] [facility] Other 01-13-2022 11:05-0400 Body weight 52.16 kg Marianne Tucker Other [facility] [facility] Other 01-13-2022 11:05-0400 Respiratory rate 18 /min Marianne Dominguezler Other [facility] [facility] [facility] Other 01-13-2022 11:05-0400 SaO2% (BldA) [Mass fraction] 97 % Marianne Tucker Other [employer] Other 12-21-2021 10:47-0400 Body height 160.02 cm No PCP None [facility] [address] Work Phone: 12-21-2021 10:47-0400 Body mass index (BMI) [Ratio] 19.49 kg/m2 No PCP None [facility] [address] [address] Work Phone: 12-21-2021 10:47-0400 Body surface area Derived from formula 1.5 m2 No PCP None LP-Mhsatdti-Okdovno [facility] [address] Work Phone: 12-21-2021 10:47-0400 Body weight 49.9 kg No PCP None JJ-Zbzpzyom-Kifl [facility] [address] Work Phone: 12-21-2021 10:47-0400 Diastolic blood pressure 62 mm[Hg] No PCP None D[facility] [place] [address] Work Phone: 12-21-2021 10:47-0400 Heart rate 89 /min No PCP None [facility] [address] Work Phone: 12-21-2021 10:47-0400 Respiratory rate 17 /min No PCP None LB-Adbcafic-Srz grin [facility] [address] Work Phone: 12-21-2021 10:47-0400 Systolic blood pressure 101 mm[Hg] No PCP None UQ-Kdglxjxk-[facility]ogkrdiTr[facility] [address] Work Phone: 12-21-2021 10:47-0400 5 1 No PCP None CA-[facility]iunldjw[facility] [address] Work Phone: Comment on above: [facility] 12-11-2021 09:45-0400 Body height 160.02 cm Tondra Mapus Other [facility] [facility] Other 12-11-2021 09:45-0400 Body mass index (BMI) [Ratio] 19.48 kg/m2 Tondra Mapus Other [facility] [facility] Other 12-11-2021 09:45-0400 Body weight 49.9 kg Tondra Mapus Other [facility] [facility] Other 12-11-2021 09:45-0400 Diastolic blood pressure 93 mm[Hg] Tondra Mapus Other [facility] [facility] Other 12-11-2021 09:45-0400 Respiratory rate 20 /min Tondra Mapus Other [facility] [facility] Other 12-11-2021 09:45-0400 SaO2% (BldA) [Mass fraction] 99 % Tondra Mapus Other [facility] [facility] [facility] Other 12-11-2021 09:45-0400 Systolic blood pressure 129 mm[Hg] Tondra Mapus Other [facility] [facility] [facility] Other 11-01-2021 12:00-0500 Body temperature 96.8 [degF] No Pcp Required [facility] 11-01-2021 12:00-0500 Diastolic blood pressure 83 mm[Hg] No Pcp Required [facility] 11-01-2021 12:00-0500 Heart rate 74 /min No Pcp Required [facility] 11-01-2021 12:00-0500 Respiratory rate 15 /min No Pcp Required [facility] 11-01-2021 12:00-0500 SaO2% (BldA) [Mass fraction] 96 % No Pcp Required [facility] 11-01-2021 12:00-0500 Systolic blood pressure 133 mm[Hg] No Pcp Required [facility] 06-29-2021 14:44-0400 Body height 160.02 cm No PCP None [facility] -[place] [facility] I Work Phone: 06-29-2021 14:44-0400 Body mass index (BMI) [Ratio] 21.75 kg/m2 No PCP None [facility] -[place] [facility] Work Phone: 06-29-2021 14:44-0400 Body surface area Derived from formula 1.57 m2 No PCP None [facility] -[place] [facility] Work Phone: 06-29-2021 14:44-0400 Body temperature 97.9 [degF] No PCP None [facility]ero [facility]y -[place] [facility] Work Phone: 06-29-2021 14:44-0400 Body weight 55.7 kg No PCP None [facility] -[place] [facility] Work Phone: 06-29-2021 14:44-0400 Diastolic blood pressure 90 mm[Hg] No PCP None [facility] -[place] [facility] Work Phone: 06-29-2021 14:44-0400 Heart rate 93 /min No PCP None [facility]ol [facility] -[place] [facility] Work Phone: 06-29-2021 14:44-0400 Respiratory rate 18 /min No PCP None [facility]ero [facility]y -[place] [facility] Work Phone: 06-29-2021 14:44-0400 SaO2% (BldA) [Mass fraction] 98 % No PCP None [facility] -[place] [facility] Work Phone: 06-29-2021 14:44-0400 Systolic blood pressure 136 mm[Hg] No PCP None [facility] [facility] Work Phone: 06-29-2021 14:44-0400 7 1 No PCP None [facility] -[place] [facility] Work Phone: Comment on above: [facility] Encounters Encounter Date Encounter Type Care Provider Facility Start: 12-09-2023 Refill Ramos Parekh MD Work Phone: [facility] Comment on above: Refill Request Start: 12-06-2023 End: 12-06-2023 ambulatory Ramos Parekh MD Work Phone: [facility] Comment on above: Palliative care by s pecialist (Primary Dx); History of pancreatectomy; Chronic calcific pancreatitis (HCC); Chronic abdominal pain; Nausea Start: 12-06-2023 End: 12-06-2023 Telemedicine consultation with patient Ramos Parekh MD Work Phone: [facility] Start: 12-05-2023 End: 12-05-2023 ambulatory [facility] Work Phone: Start: 12-05-2023 End: 12-05-2023 Patient encounter procedure [facility] Work Phone: Start: 11-29-2023 Refill Ramos Parekh MD Work Phone: Palliative Medicine Comment on above: Refill Request Start: 11-27-2023 Non-patient / Non-visit [facility] Work Phone: Start: 11-21-2023 End: 11-22-2023 ambulatory [facility] Start: 11-21-2023 End: 11-21-2023 Telemedicine consultation with patient Mitch Munoz PharmD Work Phone: [facility] Comment on above: Type 1 diabetes ting itus without complication (CMS/HCC) Start: 11-14-2023 Telephone encounter Ramos hodges MD Work Phone: [employer] Comment on above: Patient Question Start: 11-14-2023 ambulatory [facility] Start: 11-13-2023 Telephone encounter Ramos hodges MD Work Phone: [facility] Comment on above: Medication Question Start: 11-12-2023 End: 11-13-2023 ambulatory ALBERTINA BRAY [facility] Start: 11-11-2023 ambulatory Ramos Parekh MD Work Phone: [employer] [facility] Comment on above: Medication Start: 11-11-2023 Telephone encounter Ramos hodges MD Work Phone: [facility] Comment on above: Appointment Start: 11-08-2023 End: 11-08-2023 Telemedicine consultation with patient Ramos Parekh MD Work Phone: [facility] Start: 11-08-2023 End: 11-08-2023 ambulatory Ramos Parekh MD Work Phone: [facility] Comment on above: Hydomorphone Palliative care by s pecialist (Primary Dx); Chronic calcific pancreatitis (HCC); History of pancreatectomy; Chronic abdominal pain; Nausea Start: 11-07-2023 Telephone encounter Ramos hodges MD Work Phone: [employer] Comment on above: Patient Question Start: 11-06-2023 Telephone encounter Raffi Santiago RN [facility] Comment on above: Insurance 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 Start: 10-31-2023 End: 11-06-2023 Evaluation and management of inpatient TRAY BURK [facility] Start: 10-31-2023 End: 11-06-2023 Evaluation and management of inpatient Tray David Bhargavi THACKER Work Phone: [facility] Surgical Oncology Start: 10-28-2023 End: 10-28-2023 ambulatory Tona Shaquilleus Other [employer] Other Start: 10-28-2023 Telephone encounter Faustino Castellano [facility] Start: 10-25-2023 Refill Ramos Parekh MD Work Phone: [employer] Comment on above: Refill Request; Refi ll Request Start: 10-15-2023 End: 10-15-2023 ambulatory Tondra Shaquilleus Other [employer] [facility] Other Start: 10-15-2023 Telephone encounter Tondra Bharat [facility] Start: 10-11-2023 End: 10-29-2023 Evaluation and management of inpatient TRAY BURK [facility] Start: 10-03-2023 End: 10-03-2023 ambulatory Nat Medina Other [employer] [facility] Other Start: 10-03-2023 Telephone encounter [facility] Start: 10-02-2023 End: 10-02-2023 ambulatory Nat Medina Other [employer] Other Start: 10-02-2023 Office outpatient visit 15 minutes Nat Medina [facility] Start: 10-02-2023 End: 10-02-2023 Patient encounter procedure [facility] Start: 09-25-2023 End: 09-26-2023 Encounter for other preprocedural examination NAT MEDINA [facility] Start: 09-25-2023 End: 09-26-2023 ambulatory TRAY Hernandez [facility] Start: 09-25-2023 End: 09-25-2023 Subsequent hospital visit by physician [address] [facility] Comment on above: 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) Start: 09-20-2023 End: 09-21-2023 ambulatory TRAY David [facility] Start: 09-20-2023 End: 09-20-2023 Subsequent hospital visit by physician Igor [id number] Cr Nonv1 Holter/Ecg Resource [facility] Vanessa Comment on above: 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) Start: 09-20-2023 End: 09-21-2023 ambulatory NAT MEDINA [facility] Start: 09-05-2023 End: 09-06-2023 ambulatory NAT MEDINA [facility] Start: 08-30-2023 End: 08-30-2023 ambulatory RAMOS PAREKH Facility:[facility] Start: 08-20-2023 Telephone encounter Ramos hodges MD Work Phone: [employer] Comment on above: Medication Problem Start: 08-19-2023 End: 08-20-2023 ambulatory TRAY David [facility] Start: 08-19-2023 End: 08-19-2023 Office outpatient visit 15 minutes Tray Burk MD Work Phone: [facility] Comment on above: 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) (Primary Dx); 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) Start: 08-02-2023 End: 08-02-2023 ambulatory RAMOS PAREKH Facility:[facility] Start: 08-01-2023 End: 08-01-2023 Refill Ramos Parekh MD Work Phone: [employer] Comment on above: Refill Request Start: 07-31-2023 End: 07-31-2023 ambulatory Nat Medina Other [employer] Other Start: 07-31-2023 Office outpatient visit 25 minutes Nat HAY [facility] Start: 07-29-2023 End: 07-29-2023 ambulatory Faustino Corbinus Other [employer] Other Start: 07-29-2023 Telephone encounter Tondra Mapus [facility] Start: 07-24-2023 End: 07-25-2023 ambulatory Nat Medina Facility:[facility] Start: 07-23-2023 End: 07-23-2023 ambulatory Nat Medina Other [employer] Other Start: 07-23-2023 Telephone encounter Nat RUANO [facility] Start: 07-22-2023 End: 07-23-2023 ambulatory NAT MEDINA [facility] Start: 07-22-2023 End: 07-23-2023 ambulatory TRAY BURK [facility] Start: 07-22-2023 End: 07-22-2023 Office outpatient visit 15 minutes Tray Burk MD Work Phone: [facility] Comment on above: Chronic abdominal pa in; Alcohol-induced acute pancreatitis, unspecified complication status Start: 07-18-2023 End: 07-18-2023 ambulatory Thienshanice Corbinus Other [employer] Other Start: 07-18-2023 Telephone encounter Tondra Mapus [facility] Start: 07-17-2023 End: 07-17-2023 ambulatory Matt Bond MD Work Phone: Pain Management Comment on above: Pain Questionnaire Start: 07-17-2023 E-mail encounter fro m caregiver Matt Bond MD Work Phone: [facility] Start: 07-17-2023 Patient encounter procedure José Miguel Tobar [facility] Start: 07-16-2023 End: 07-16-2023 ambulatory Faustino Nicholson Other [employer] Other Start: 07-16-2023 Telephone encounter Faustino Nicholson [facility] Start: 07-16-2023 End: 07-20-2023 Evaluation and management of inpatient Nat Ball Facility:[facility] Start: 07-16-2023 End: 07-20-2023 Evaluation and management of inpatient DO Nat Ball Work Phone: [facility] [employer] Work Phone: Start: 07-09-2023 Telephone encounter Erin Oleary RN [employer] Comment on above: Care Coordination; F uture Appointment Refill Request Start: 06-25-2023 Telephone encounter Matt Bond MD Work Phone: Pain Management Start: 05-23-2023 ambulatory No Pcp CARYN Hernandez Start: 05-17-2023 End: 05-17-2023 ambulatory RAMOS PAREKH Facility:[facility] Start: 05-17-2023 End: 05-17-2023 Nutrition therapy Ramos Parekh MD Work Phone: [employer] Comment on above: Palliative care by s pecialist (Primary Dx); Chronic calcific pancreatitis (HCC); Malnutrition of moderate degree (HCC); Chronic abdominal pain; Nausea Start: 05-17-2023 End: 05-17-2023 Telemedicine consultation with patient Ramos Parekh MD Work Phone: [facility] Start: 05-17-2023 Telephone encounter Ramos hodges MD Work Phone: [employer] Start: 05-17-2023 NPV, Provider: Matt Banks, Status: Pen, Time: 7:45 AM Referring Provider [facility] Work Phone: Start: 05-16-2023 ambulatory PCP UNKNOWN Facility:[id number] Start: 05-16-2023 FUV, Provider: Tray Burk, Status: Pen, Time: 12:40 PM Referring Provider Unknown [facility] Work Phone: Start: 05-14-2023 AUDIT Referring Prov ider Unknown [facility] Work Phone: Start: 05-13-2023 End: 05-13-2023 ambulatory Nat Medina Other [employer] Other Start: 05-13-2023 Telephone encounter Nat Medina [facility] Start: 05-09-2023 ambulatory PCP UNKNOWN Facility:[id number] Start: 04-12-2023 AUDIT Referring Prov ider Unknown [facility] 1500 DO Work Phone: Start: 04-10-2023 End: 04-10-2023 ambulatory Nat Medina Other [employer] Other Start: 04-10-2023 Office outpatient visit 25 minutes Nat Medina [facility] Start: 04-03-2023 End: 04-03-2023 ambulatory Nat Medina Other [employer] Other Start: 04-03-2023 Telephone encounter Nat RUANO [facility] Start: 03-14-2023 AUDIT Referring Prov ider Unknown [facility] [address] Work Phone: Start: 03-04-2023 End: 03-04-2023 ambulatory Nat Medina Other [employer] Other Start: 03-04-2023 Telephone encounter Nat RUANO [facility] Start: 03-01-2023 Office outpatient visit 25 minutes Referring Provider Unknown SG[facility]exmgika[facility] [place] [address] Work Phone: Start: 03-01-[address] Nat Medina Facility:[id number] Start: 02-20-2023 AUDIT Referring Prov ider Unknown UC[facility]vubruyn[facility]bv[facility] [address] Work Phone: Start: 02-14-2023 End: 02-14-2023 ambulatory Tondra Nicholson Other [employer] Other Start: 02-14-2023 Encounter by bria r link Faustino [facility] Start: 02-14-2023 Telephone encounter Faustino Castellano [facility] Start: 02-12-2023 Letter encounter Olga angela Start: 01-22-2023 AUDIT Referring Prov ider Unknown HR-Mnexsmsx-[facility] [place] [address] Work Phone: Start: 12-28-2022 Office outpatient visit 25 minutes Referring Provider Unknown HI-Putzsoac-Rrclxreuux Care-[facility] [address] DO Work Phone: Start: 12-28-2022 ambulatory PCP UNKNOWN Facility:[facility] Start: 12-20-2022 Chart Update Referring Prov ider Unknown EX[facility]Krbsagh[facility]pe[facility] 4600 Work Phone: Start: 12-17-2022 End: 12-17-2022 ambulatory Nat Medina Other [employer] Other Start: 12-17-2022 Encounter by [employer] r link Faustino [facility] Start: 12-17-2022 Office outpatient visit 25 minutes Nat [facility]ina [facility] Start: 12-10-2022 End: 12-10-2022 ambulatory Tondra Shaquilleus Other [employer] Other Start: 12-10-2022 Telephone encounter Faustino Castellano [facility] Start: 11-26-2022 AUDIT Referring Prov ider Unknown BV[facility]zrutumi[facility] [address] Work Phone: Start: 11-02-2022 Office outpatient visit 25 minutes Referring Provider Unknown YT-Utdqxcue-ArswnvzP[facility] [address] Work Phone: Start: 11-02-2022 Patient encounter procedure Referring Provider Unknown QC-Hncgjmom-VaoufnyP[facility] [address] Work Phone: Start: 10-29-2022 AUDIT Referring Prov ider Unknown UC-Uebevtms-HjatgngP[facility] [address] Work Phone: Start: 10-17-2022 End: 10-17-2022 ambulatory Nat Medina Other [employer] Other Start: 10-17-2022 Telephone encounter Nat Medina [facility] Start: 10-08-2022 End: 10-08-2022 ambulatory Nat Medina Other [employer] Other Start: 10-08-2022 Telephone encounter Nat RUANO [facility] Start: 10-02-2022 End: 10-02-2022 ambulatory Nat Medina Other [employer] Other Start: 10-02-2022 Telephone encounter Nat Medina [facility] Start: 09-28-2022 ANGELES, Provider : Ramos Parekh, Status: Pen, Time: 8:00 AM Nat Fischer Carol Work Phone: DR-Grmqnom-NmgiistP[facility] 4300 Work Phone: Start: 09-27-2022 Office outpatient visit 25 minutes Nat Fischer Carol Work Phone: RW-Udjhfhv-UawostzPemb[facility] 4300 Work Phone: Start: 09-21-2022 AUDIT Nat Aaliyah schmid Work Phone: TX-Luzzvhxe-ZfndfkpP[facility] [address] Work Phone: Start: 09-04-2022 End: 09-06-2022 ambulatory UNKNOWN PROVIDER Facility:[facility] Start: 09-04-2022 End: 09-04-2022 Patient encounter procedure Ольга Chapin Work Phone: [facility] Comment on above: Arrived Start: 08-30-2022 AUDIT Nat Cash l Work Phone: BK-Jtqgbsuq-KhbcbjoPemb[facility] [address] Work Phone: Start: 08-29-2022 Encounter for other preprocedural examination Nat Medina Other [employer] Other Start: 08-29-2022 Pre-procedure evaluation check Nat Medina Other [employer] Other Start: 08-23-2022 Office consultation new/estab patient 60 min Nat Medina Work Phone: PW-Tmrcaiz-Rphytyy 2100 Work Phone: Start: 08-14-2022 End: 08-15-2022 Emergency department patient visit Troy Maki [facility] Adult ED [facility] 21 Start: 08-08-2022 AUDIT No PCP None MG-Medicin [facility] [address] Work Phone: Start: 08-02-2022 AUDIT No PCP None [facility] Work Phone: Start: 07-27-2022 ANGELES, Provider : Ramos Parekh, Status: Xavier, Time: 9:30 AM No PCP None JW-Ufuddzmlnadeszvx-Dbbd n [place] [facility] Work Phone: Start: 07-27-2022 Office outpatient visit 40 minutes No PCP None AT-Cvohboxm-RhepytjPemb[facility] [address] Work Phone: Start: 07-27-2022 Patient encounter procedure No PCP None QY-Ltrkaitl-EpwwsgfPemb[facility] [address] Work Phone: Start: 07-27-2022 ANGELES, Provider : Ramos Parekh, Status: Xavier, Time: 8:30 AM No PCP None DS-Dognxslzhpiwkivv-Sube n [place] [facility] Work Phone: Start: 07-25-2022 AUDIT No PCP None MG-Gastroe nterology-Admi n [place] [facility] Work Phone: Start: 07-09-2022 Telephone encounter Vicky Whaley MD Work Phone: [facility] Gastroenterology [facility] Comment on above: Release Of Medical R ecords Start: 07-06-2022 Office outpatient visit 40 minutes No PCP None PO-Fifntnbi-NvdmhgwPemb[facility] [address] Work Phone: Start: 07-06-2022 Patient encounter procedure No PCP None JS-Cnhgtlyc-OchdnlsPemb[facility] [address] Work Phone: Start: 06-22-2022 Office outpatient visit 40 minutes No PCP None UA-Xookvffe-QkwetqaPemb[facility] [place] Work Phone: Start: 06-12-2022 Telephone encounter Provider Vinicio lal Comment on above: ERCP 2 MONTHS Start: 06-11-2022 Orders Only Stefanie Solorzano APRN.[employer] Work Phone: Gastroenterology Comment on above: Refill Request Start: 06-06-2022 End: 06-14-2022 Evaluation and management of inpatient [facility] Facility:[facility] Start: 05-14-2022 ambulatory Vicky lincoln MD Work Phone: Gastroenterology Comment on above: Not sure if it's imp ortant Start: 05-14-2022 Telephone encounter Vicky Whaley MD Work Phone: Gastroenterology Comment on above: EUS ERCP Start: 05-11-2022 Office outpatient visit 40 minutes No PCP None GR-Dpijsydv-NmiuezpPemb[facility] [address] Work Phone: Start: 05-11-2022 Patient encounter procedure No PCP None SA-Eeaaxbeg-LadahxrPemb[facility] [address] Work Phone: Start: 05-10-2022 End: 05-10-2022 Patient encounter procedure Vicky Whaley MD Work Phone: Gastroenterology Comment on above: Other chronic pancre atitis (HCC) (Primary Dx) Start: 05-09-2022 Telephone encounter Vicky Whaley MD Work Phone: Gastroenterology Comment on above: prescreen Start: 05-08-2022 (PUMP/CGM) Pump / Sensor Tondra Mapus [facility] Start: 05-08-2022 End: 05-08-2022 ambulatory Tondra Mapus Other [employer] Other Start: 05-07-2022 End: 05-08-2022 ambulatory TONDRA MAPUS Facility: Start: 05-02-2022 Refill Stefanie Solorzano APRN.[employer] Work Phone: [facility] Comment on above: Refill Request Start: 05-01-2022 ambulatory Gregor Hernandez [facility] CC F [facility] Start: 05-01-2022 Patient encounter procedure Gregor Greggalmaz [facility] Comment on above: SPP Inflammatory Con ditions - Treatment Referral (Titus); Insurance Authorization ([place] Submitted) Start: 05-01-2022 Telephone encounter [facility] Provider David delcidenterdoreen Comment on above: Appointment (Schd vi sit) Start: 04-30-2022 End: 04-30-2022 ambulatory Sagar Guillen MD Work Phone: General Surgery Comment on above: Chronic pancreatitis , unspecified pancreatitis type (HCC) [K86.1 (ICD-10-CM)] (Primary Dx) Start: 04-30-2022 End: 04-30-2022 Telemedicine consultation with patient Sagar Guillen MD Work Phone: [facility] Start: 04-27-2022 ambulatory Stefanie Solorzano APRN.[employer] Work Phone: Gastroenterology Comment on above: EUS Start: 04-25-2022 Telephone encounter No PCP None MG- Gastroenterology-Admi n [place] WILLIAMI Work Phone: Start: 04-19-2022 Telephone encounter Stefanie buenrostro APRN.[employer] Work Phone: Gastroenterology Comment on above: Request Outside [facility] Start: 04-19-2022 AUDIT No PCP None MG-Medicin e-[facility] [address] Work Phone: Start: 04-13-2022 ambulatory Sagar Guillen MD Work Phone: General Surgery Comment on above: COVID positive Start: 04-09-2022 End: 04-09-2022 ambulatory Tondra Mapus Other [employer] Other Start: 04-09-2022 Telephone encounter Anthony Guillen MD Work Phone: General Surgery Comment on above: Insurance 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; 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 Safety Technical 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 - Other Start: 03-15-2022 Result Review No PCP None MG-Gastro enterology-Math er [facility] Work Phone: Start: 03-15-2022 End: 03-15-2022 ambulatory Tondra Mapus Other [employer] Other Start: 03-15-2022 Telephone encounter Faustino Nicholson [facility] Start: 03-01-2022 AUDIT No PCP None MG-Gastroe nterology-Math er [facility] Work Phone: Start: 02-27-2022 AUDIT No PCP None MG-Gastroe nterology-Math er [facility] Work Phone: Start: 02-23-2022 Office outpatient visit 40 minutes No PCP None UQ-[facility]fnyqfrt-[facility]xzbjxTr[facility] [address] Work Phone: Start: 02-23-2022 Patient encounter procedure No PCP None TQ-Smqoplyo-ShjgiuoP[facility] [place] Work Phone: Start: 02-19-2022 AUDIT No PCP None MG-Gastroe nterology-Math er [facility] Work Phone: Start: 02-16-2022 End: 02-17-[address] NAT MEDINA Facility:H1 Start: 06-01-2022 AUDIT No PCP None MG-Gastroe nterology-Math er [facility] Work Phone: Start: 01-31-2022 AUDIT No PCP None MG[facility]icin e-[facility] [address] Work Phone: Start: 01-30-2022 End: 01-30-2022 ambulatory Tondra Mapus Other [employer] Other Start: 01-30-2022 Nursing evaluation o f patient and report Tondra Mapus [facility] Start: 01-22-2022 AUDIT No PCP None MG-Gastroe nterology-Math er [facility] Work Phone: Start: 01-16-2022 Chart Update No PCP None MG-Gastroe nterology-Admi n [place] I Work Phone: Start: 01-16-2022 End: 01-22-2022 Evaluation and management of inpatient Jean Pierre [facility] [id number] [id number] Start: 01-13-2022 End: 01-13-2022 ambulatory Marianne Tucker Other [employer] Other Start: 01-13-2022 Office outpatient visit 15 minutes Marianne Tucker [facility] Start: 12-26-2021 End: 12-26-2021 ambulatory Tondra Mapus Other [employer] Other Start: 12-26-2021 Telephone encounter Tondra Mapus [facility] Start: 12-21-2021 NPV, Provider: Shorty Koehler, Status: Pen, Time: 10:45 AM No PCP None OZ-Ipsxihlo-Qzdncew [facility] [address] Work Phone: Start: 12-13-2021 End: 12-13-2021 ambulatory Tondra Mapus Other [employer] Other Start: 12-13-2021 Telephone encounter Tondra Mapus [facility] Start: 12-11-2021 (DM) Diabetes Faustino Nicholson [facility] Start: 12-11-2021 End: 12-11-2021 ambulatory Faustino Nicholson Other [employer] Other Start: 11-29-2021 NPV, Provider: Shorty Koehler, Status: Pen, Time: 1:30 PM No PCP None IY-Cscykbqyxzmbzigd-Wfvc er DHI Work Phone: Start: 11-27-2021 Chart Update No PCP None MG-Gastroe nterology-Math er [facility] Work Phone: Start: 11-17-2021 AUDIT No PCP None MG[facility]icin e[facility] [address] Work Phone: Start: 11-17-2021 Office outpatient visit 40 minutes No PCP None WN-Qgphigqg-BcybepeTr[facility] [place] [address] Work Phone: Start: 11-17-2021 Patient encounter procedure No PCP None PP-Rohuzktd-[facility]cunvnhP[facility] [address] Work Phone: Start: 2021 AUDIT No PCP None MG-Gastroe nterology-Math er [facility] Work Phone: Start: 11-08-2021 AUDIT No PCP None MG-Gastroe nterology-Math er [facility] Work Phone: Start: 10-24-2021 End: 11-01-2021 Evaluation and management of inpatient Edgar [facility] [id number] Rm [id number] Start: 10-02-2021 AUDIT No PCP None MG-Gastroe nterology-Math er [facility] Work Phone: Start: 09-12-2021 AUDIT No PCP None MG-Gastroe nterology-[place] 6 D[facility] Work Phone: Start: 08-17-2021 End: 08-17-2021 ambulatory COSMO BLANCAS Facility:H1 Start: 08-11-2021 End: 08-11-[address] NAT MEDINA Facility:H1 Start: 08-09-2021 End: 08-09-[address] NAT MEDINA Facility:[facility]1 Start: 07-25-2021 Chart Update No PCP None MG-Gastroe nterology-[place] 6 D[facility] Work Phone: Start: 06-29-2021 Office outpatient ne w 60 minutes No PCP None DS-Wwevvclrarbnyeob-Gwte ell 6 DHI Work Phone: Start: 06-22-2021 ambulatory SAMY Binu LONGO Facili ty:H1 Start: 07-04-2020 End: 07-04-2020 Encounter for gynecological examination (general) (routine) with abnormal findings Nat Medina Other [employer] Other Start: 07-04-2020 End: 07-04-2020 Gynecological examination abnormal Nat Medina Other [employer] Other Start: 06-15-2020 End: 06-15-2020 Gynecological examination normal Nat Medina Other [employer] Other Procedures Date Procedure Procedure Detail Performing Clinician Start: 11-21-2023 FOLLOW UP IN CLINICAL PHARMACY NAT MEDINA Start: 11-12-2023 AMB REFERRAL TO CLINICAL PHARMACY RADHA MERLOS CAROL Start: 11-06-2023 DISCHARGE PATIENT NAT MEDINA Start: 11-06-2023 Glucose [Mass/volume] in Serum or Plasma NAT MEDINA Start: 11-06-2023 Glucose quantitative blood xcpt reagent strip Tray Burk MD Work Phone: Start: 11-06-2023 Glucose [Mass/volume] in Serum or Plasma NAT MEDINA Start: 11-06-2023 Glucose quantitative blood xcpt reagent strip Tray Burk MD Work Phone: Start: 11-06-2023 Glucose [Mass/volume] in Serum or Plasma ANT MEDINA Start: 11-06-2023 End: 11-06-2023 Glucose quantitative blood xcpt reagent strip Tray Burk MD Work Phone: Start: 11-06-2023 Glucose [Mass/volume] in Serum or Plasma NAT MEDINA Start: 11-06-2023 Glucose [Mass/volume] in Serum or Plasma NAT MEDINA Start: 11-06-2023 Glucose quantitative blood xcpt reagent strip Tray Burk MD Work Phone: Start: 11-05-2023 Glucose quantitative blood xcpt reagent strip Tray Burk MD Work Phone: Start: 11-05-2023 Glucose [Mass/volume] in Serum or Plasma NAT MEDINA Start: 11-05-2023 Glucose quantitative blood xcpt reagent strip Tray Burk MD Work Phone: Start: 11-05-2023 Glucose [Mass/volume] in Serum or Plasma NAT MEDINA Start: 11-05-2023 Glucose quantitative blood xcpt reagent strip Tray Burk MD Work Phone: Start: 11-05-2023 ADULT DISCHARGE DIET NAT MEDINA Start: 11-05-2023 Glucose [Mass/volume] in Serum or Plasma NAT MEDINA Start: 11-05-2023 Glucose quantitative blood xcpt reagent strip Tray Burk MD Work Phone: Start: 11-05-2023 Glucose [Mass/volume] in Serum or Plasma NAT MEDINA Start: 11-05-2023 Glucose quantitative blood xcpt reagent strip Tray Burk MD Work Phone: Start: 11-05-2023 DIETARY NUTRITION SUPPLEMENTS NAT Coello ALL Start: 11-05-2023 DISCHARGE ACTIVITY NAT MEDINA Start: 11-05-2023 DISCHARGE DRAIN/TUBE CARE NAT MEDINA Start: 11-05-2023 NOTIFY PROVIDER (DO NOT PROMPT FOR PARAMETERS) NAT MEDIAN Start: 11-05-2023 WEIGHT LIFTING RESTRICTIONS NAT BAL L Start: 11-05-2023 WOUND CARE NAT BALL Start: 11-05-2023 CBC panel - Blood by Automated count NAT MEDINA Start: 11-05-2023 Comprehensive metabolic 2000 panel - Serum or Plasma NAT MEDINA Start: 11-05-2023 Magnesium [Mass/volume] in Serum or Plasma NAT BALL Start: 11-05-2023 Glucose [Mass/volume] in Serum or Plasma NAT BALL Start: 11-05-2023 Comprehensive metabolic panel Bárbara Holguin 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-[employer] Work Phone: Start: 11-05-2023 Glucose quantitative blood xcpt reagent strip Tray Burk MD Work Phone: Start: 11-05-2023 Glucose [Mass/volume] in Serum or Plasma NAT MEDINA Start: 11-05-2023 Glucose [Mass/volume] in Serum or Plasma NAT MEDINA Start: 11-05-2023 Glucose quantitative blood xcpt reagent strip Tray Burk MD Work Phone: Start: 11-04-2023 Glucose quantitative blood xcpt reagent strip Tray Burk MD Work Phone: Start: 11-04-2023 Glucose [Mass/volume] in Serum or Plasma NAT MEDINA Start: 11-04-2023 IP CONSULT TO MOLDING 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 OPERATOR NAT MEDINA Start: 11-04-2023 Glucose quantitative blood xcpt reagent strip Tray Burk MD Work Phone: Start: 11-04-2023 Glucose [Mass/volume] in Serum or Plasma NAT MEDINA Start: 11-04-2023 Glucose quantitative blood xcpt reagent strip Tray Burk MD Work Phone: Start: 11-04-2023 Glucose [Mass/volume] in Serum or Plasma NAT MEDINA Start: 11-04-2023 Glucose quantitative blood xcpt reagent strip Tray Burk MD Work Phone: Start: 11-04-2023 Glucose [Mass/volume] in Serum or Plasma NAT MEDINA Start: 11-04-2023 Glucose quantitative blood xcpt reagent strip Tray Burk MD Work Phone: Start: 11-04-2023 CBC panel - Blood by Automated count NAT MEDINA Start: 11-04-2023 Magnesium [Mass/volume] in Serum or Plasma NAT MEDINA Start: 11-04-2023 RENAL FUNCTION PANEL NAT MEDNIA Start: 11-04-2023 Glucose [Mass/volume] in Serum or Plasma NAT MEDINA Start: 11-04-2023 Renal function panel Jose Armando Mansfield MD Work Phone: Start: 11-04-2023 End: 11-04-2023 Glucose quantitative blood xcpt reagent strip Tray Burk MD Work Phone: Start: 11-04-2023 Glucose [Mass/volume] in Serum or Plasma NAT MEDINA Start: 11-03-2023 Glucose quantitative blood xcpt reagent strip Tray Burk MD Work Phone: Start: 11-03-2023 Glucose [Mass/volume] in Serum or Plasma NAT MEDINA Start: 11-03-2023 Glucose quantitative blood xcpt reagent strip Tray Burk MD Work Phone: Start: 11-03-2023 Glucose [Mass/volume] in Serum or Plasma NAT MEDINA Start: 11-03-2023 Glucose quantitative blood xcpt reagent strip Tray Burk MD Work Phone: Start: 11-03-2023 Glucose [Mass/volume] in Serum or Plasma NAT MEDINA Start: 11-03-2023 Glucose [Mass/volume] in Serum or Plasma NAT MEDINA Start: 11-03-2023 Glucose quantitative blood xcpt reagent strip Tray Burk MD Work Phone: Start: 11-03-2023 C. DIFFICILE, PCR NAT MEDINA Start: 11-03-2023 STOOL PATHOGEN PANEL, PCR NAT MEDINA Start: 11-03-2023 Glucose quantitative blood xcpt reagent strip Tray Burk MD Work Phone: Start: 11-03-2023 Glucose [Mass/volume] in Serum or Plasma NAT MEDINA Start: 11-03-2023 Iadna-dna/rna gi pthgn multiplex probe tq 6-11 Eileen Anne MD Work Phone: Start: 11-03-2023 Inf agent det nucleic acid clostridium amp probe Eileen Anne MD Work Phone: Start: 11-03-2023 Glucose quantitative blood xcpt reagent strip Tray Burk MD Work Phone: Start: 11-03-2023 CBC panel - Blood by Automated count NAT MEDINA Start: 11-03-2023 Glucose [Mass/volume] in Serum or Plasma NAT MEDINA Start: 11-03-2023 Magnesium [Mass/volume] in Serum or Plasma NAT MEDINA Start: 11-03-2023 RENAL FUNCTION PANEL NAT MEDINA Start: 11-03-2023 Renal function panel Eileen Anne MD Work Phone: Start: 11-03-2023 TRIGLYCERIDES, FLUID NAT MEDINA Start: 11-03-2023 Glucose [Mass/volume] in Serum or Plasma NAT MEDINA Start: 11-03-2023 Assay of triglycerides Ciera Benton MD Work Phone: Start: 11-03-2023 Triglyceride [Mass/volume] in Body fluid Ciera Benton MD Work Phone: Start: 11-03-2023 Glucose quantitative blood xcpt reagent strip Tray Burk MD Work Phone: Start: 11-02-2023 Glucose [Mass/volume] in Serum or Plasma NAT MEDINA Start: 11-02-2023 Glucose quantitative blood xcpt reagent strip Tray Burk MD Work Phone: Start: 11-02-2023 CHOLESTEROL, BODY FLUID NAT MEDINA Start: 11-02-2023 REVIEW TESTING-FLUID SOURCE NAT Schmid Start: 11-02-2023 Glucose [Mass/volume] in Serum or Plasma NAT MEDINA Start: 11-02-2023 Cholesterol [Mass/volume] in Body fluid Samy Dickerson 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, DNP Work Phone: Start: 11-02-2023 Cholesterol serum/whole blood total Atul mannie Dickerson 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[employer], DNP Work Phone: Start: 11-02-2023 Glucose quantitative blood xcpt reagent strip Blayne Ellis MD Work Phone: Start: 11-02-2023 TRANSFER PATIENT TO NEW UNIT NAT REYNALDO Start: 11-02-2023 Glucose [Mass/volume] in Serum or Plasma NAT MEDINA Start: 11-02-2023 Glucose quantitative blood xcpt reagent strip Tray Burk MD Work Phone: Start: 11-02-2023 CBC panel - Blood by Automated count NAT MEDINA Start: 11-02-2023 Glucose [Mass/volume] in Serum or Plasma NAT MEDINA Start: 11-02-2023 Blood count complete automated Lidija Reynaldo barth MD Work Phone: Start: 11-02-2023 Glucose [Mass/volume] in Serum or Plasma NAT MEDINA Start: 11-02-2023 Glucose quantitative blood xcpt reagent strip Tray Burk MD Work Phone: Start: 11-02-2023 Glucose [Mass/volume] in Serum or Plasma NAT BALL Start: 11-02-2023 Magnesium [Mass/volume] in Serum or Plasma NAT BALL Start: 11-02-2023 RENAL FUNCTION PANEL NAT MEDINA Start: 11-02-2023 Glucose quantitative blood xcpt reagent strip Tray Burk MD Work Phone: Start: 11-02-2023 Glucose [Mass/volume] in Serum or Plasma NAT MEDINA Start: 11-02-2023 Glucose [Mass/volume] in Serum or Plasma NAT MEDINA Start: 11-02-2023 End: 11-02-2023 Renal function panel Elias Reece DO Work Phone: Start: 11-02-2023 Glucose quantitative blood xcpt reagent strip Tray Burk MD Work Phone: Start: 11-02-2023 Glucose [Mass/volume] in Serum or Plasma NAT MEDINA Start: 11-02-2023 Glucose [Mass/volume] in Serum or Plasma NAT MEDINA Start: 11-02-2023 Glucose quantitative blood xcpt reagent strip Tray Burk MD Work Phone: Start: 11-01-2023 BLOOD GAS VENOUS FULL PANEL NAT CASH L Start: 11-01-2023 Magnesium [Mass/volume] in Serum or Plasma NAT MEDINA Start: 11-01-2023 RENAL FUNCTION PANEL NAT MEDINA Start: 11-01-2023 Glucose quantitative blood xcpt reagent strip Tray Burk MD Work Phone: Start: 11-01-2023 Chloride bld Elias Reece DO Work Phone: Start: 11-01-2023 Glucose [Mass/volume] in Serum or Plasma NAT MEDINA Start: 11-01-2023 BLOOD GAS VENOUS FULL PANEL NAT CASH L Start: 11-01-2023 Glucose quantitative blood xcpt reagent strip Tray Burk MD Work Phone: Start: 11-01-2023 Glucose [Mass/volume] in Serum or Plasma NAT MEDINA Start: 11-01-2023 End: 11-01-2023 Chloride anastasia Reece DO Work Phone: Start: 11-01-2023 BLOOD GAS VENOUS FULL PANEL NAT Schmid Start: 11-01-2023 CALCIUM, IONIZED NAT MEDINA Start: 11-01-2023 Magnesium [Mass/volume] in Serum or Plasma NAT MEDINA Start: 11-01-2023 RENAL FUNCTION PANEL NAT MEDINA Start: 11-01-2023 Glucose [Mass/volume] in Serum or Plasma NAT MEDINA Start: 11-01-2023 Glucose quantitative blood xcpt reagent strip Tray Burk MD Work Phone: Start: 11-01-2023 BLOOD GAS VENOUS FULL PANEL NAT Schmid Start: 11-01-2023 End: 11-01-2023 Chloride anastasia Reece DO Work Phone: Start: 11-01-2023 Glucose [Mass/volume] in Serum or Plasma NAT MEDINA Start: 11-01-2023 BLOOD GAS VENOUS FULL PANEL NAT Schmid Start: 11-01-2023 CALCIUM, IONIZED NAT MEDINA Start: 11-01-2023 Magnesium [Mass/volume] in Serum or Plasma NAT MEDINA Start: 11-01-2023 RENAL FUNCTION PANEL NAT MEDINA Start: 11-01-2023 VANCOMYCIN NAT MEDINA Start: 11-01-2023 IP CONSULT TO NUTRITION SERVICES LIONEL MEDINA Start: 11-01-2023 End: 11-01-2023 Chloride anastasia Reece DO Work Phone: Start: 11-01-2023 Glucose [Mass/volume] in Serum or Plasma NAT MEDINA Start: 11-01-2023 End: 11-01-2023 Chloride anastasia Reece DO Work Phone: Start: 11-01-2023 Drug screen quantitative vancomycin Denise Burk MD Work Phone: Start: 11-01-2023 Glucose [Mass/volume] in Serum or Plasma NAT MEDINA Start: 11-01-2023 RENAL FUNCTION PANEL NAT MEDINA Start: 11-01-2023 BLOOD GAS VENOUS FULL PANEL NAT Schmid Start: 11-01-2023 Glucose [Mass/volume] in Serum or Plasma NAT MEDINA Start: 11-01-2023 End: 11-01-2023 Glucose quantitative blood xcpt reagent strip Tray Burk MD Work Phone: Start: 11-01-2023 Glucose [Mass/volume] in Serum or Plasma NAT MEDINA Start: 11-01-2023 IP CONSULT TO NUTRITION SERVICES LIONEL MEDINA Start: 11-01-2023 End: 11-01-2023 Chloride bld Elias Reece DO Work Phone: Start: 11-01-2023 Glucose [Mass/volume] in Serum or Plasma NAT MEDINA Start: 11-01-2023 Glucose quantitative blood xcpt reagent strip Tray Burk MD Work Phone: Start: 11-01-2023 BLOOD GAS LACTIC ACID, VENOUS NAT AYERS Start: 11-01-2023 IP CONSULT TO ENDOCRINOLOGY NAT Schmid Start: 11-01-2023 RENAL FUNCTION PANEL NAT MEDINA Start: 11-01-2023 BLOOD GAS VENOUS FULL PANEL NAT Schmid Start: 11-01-2023 End: 11-01-2023 Glucose quantitative blood xcpt reagent strip Tray Burk MD Work Phone: Start: 11-01-2023 Bacteria identified in Blood by Culture NAT MEDINA Start: 11-01-2023 Glucose [Mass/volume] in Serum or Plasma NAT MEDINA Start: 11-01-2023 Bacteria identified in Urine by Culture NAT MEDINA Start: 11-01-2023 Gases blood ph direct keely xcpt pulse oximitry Elias Reece DO Work Phone: Start: 11-01-2023 BETA HYDROXYBUTYRATE NAT MEDINA Start: 11-01-2023 XR CHEST 1 VIEW NAT MEDINA Start: 11-01-2023 PHARMACY TO DOSE VANCO NAT MEDINA Start: 11-01-2023 CALCIUM, IONIZED NAT MEDINA Start: 11-01-2023 CBC panel - Blood by Automated count NAT MEDINA Start: 11-01-2023 Magnesium [Mass/volume] in Serum or Plasma NAT MEDINA Start: 11-01-2023 End: 11-01-2023 Renal function panel Elias Reece DO Work Phone: Start: 11-01-2023 RENAL FUNCTION PANEL NAT MEDINA Start: 11-01-2023 MEASURE HEIGHT NAT MEDINA Start: 11-01-2023 PULSE OXIMETRY, CONTINUOUS NAT MEDINA Start: 11-01-2023 WEIGH PATIENT NAT MEDINA Start: 11-01-2023 BLOOD GAS LACTIC ACID, VENOUS NAT Coello ALL Start: 11-01-2023 Glucose [Mass/volume] in Serum or Plasma NAT MEDINA Start: 11-01-2023 TRANSFER PATIENT TO NEW UNIT NAT KEEN Start: 11-01-2023 End: 11-01-2023 Culture bacterial quanttative colony count urine Oren Borden MD Work Phone: Start: 11-01-2023 BLOOD GAS VENOUS FULL PANEL NAT Schmid Start: 11-01-2023 ECG 12-LEAD NAT MEDINA Start: 11-01-2023 Glucose [Mass/volume] in Serum or Plasma NAT MEDINA Start: 11-01-2023 POCT GLUCOSE METER NAT MEDINA Start: 11-01-2023 Radiologic exam chest single view Bárbara Borden MD Work Phone: Start: 11-01-2023 End: 11-01-2023 Renal function panel Elias Reece DO Work Phone: Start: 11-01-2023 PULSE OXIMETRY, CONTINUOUS Oren Borden MD Work Phone: Start: 11-01-2023 CT ABDOMEN PELVIS W IV CONTRAST NAT MEDINA Start: 11-01-2023 End: 11-01-2023 Calcium ionized Kim Rhodes MD Work Phone: Start: 11-01-2023 Ecg routine ecg w/least 12 lds trcg only w/o i&r Elias Reece DO Work Phone: Start: 11-01-2023 MIDLINE BEDSIDE IMAGING NAT MEDINA Start: 11-01-2023 Basic metabolic 2000 panel - Serum or Plasma NAT MEDINA Start: 11-01-2023 CBC panel - Blood by Automated count NAT MEDINA Start: 11-01-2023 COAGULATION SCREEN NAT MEDINA Start: 11-01-2023 Hepatic function 2000 panel - Serum or Plasma NAT MEDINA Start: 11-01-2023 Magnesium [Mass/volume] in Serum or Plasma NAT tab ticketbroker Start: 11-01-2023 Phosphate [Mass/volume] in Serum or Plasma NAT Start: 11-01-2023 TYPE AND SCREEN NAT Start: 11-01-2023 Ct abdomen & pelvis w/contrast material Kim Rhodes MD Work Phone: Start: 10-31-2023 Vnpnxr 3 years/> phys/qhp skill Kim Griffin MD Work Phone: Start: 10-31-2023 STAPHYLOCOCCUS AUREUS/MRSA COLONIZATION, CULTURE NAT tab ticketbroker Start: 10-31-2023 Calcium total Wilian Mcgregor MD Work Phone: Start: 10-31-2023 Hepatic function panel Wilian Mcgregor MD Work Phone: Start: 10-31-2023 FULL CODE NAT tab ticketbroker Start: 10-31-2023 ADMIT TO INPATIENT NAT tab ticketbroker Start: 10-31-2023 Cul prsmptv pthgnc organism scrn w/colony estimj Kim Rhodes MD Work Phone: Start: 10-29-2023 Glucose [Mass/volume] in Serum or Plasma NAT Start: 10-29-2023 DISCHARGE PATIENT NAT Start: 10-29-2023 CT LYMPHANGIOGRAPHY A P UNILATERAL MALDONADO GILL BALL Start: 10-29-2023 Glucose [Mass/volume] in Serum or Plasma Start: 10-29-2023 Glucose [Mass/volume] in Serum or Plasma NAT Start: 10-29-2023 ENTERAL NUTRITION NAT Start: 10-29-2023 Glucose [Mass/volume] in Serum or Plasma NAT Start: 10-29-2023 CBC panel - Blood by Automated count NAT Start: 10-29-2023 Comprehensive metabolic 2000 panel - Serum or Plasma NAT Start: 10-29-2023 Magnesium [Mass/volume] in Serum or Plasma NAT Start: 10-29-2023 VERAB/VERIFY ABORH NAT Start: 10-29-2023 Glucose [Mass/volume] in Serum or Plasma Start: 10-28-2023 Glucose [Mass/volume] in Serum or Plasma NAT Start: 10-28-2023 MICROSCOPIC ONLY, URINE NAT BALL Start: 10-28-2023 URINALYSIS WITH REFLEX MICROSCOPIC MALDONADO JAIRO BALL Start: 10-28-2023 EXTRA URINE GOODMAN TUBE NAT BALL Start: 10-28-2023 URINALYSIS WITH REFLEX CULTURE AND MICROSCOPIC NAT BALL Start: 10-28-2023 Glucose [Mass/volume] in Serum or Plasma NAT BALL Start: 10-28-2023 Glucose [Mass/volume] in Serum or Plasma NAT BALL Start: 10-28-2023 Glucose [Mass/volume] in Serum or Plasma NAT BALL Start: 10-28-2023 CT ABDOMEN PELVIS W IV CONTRAST NAT BALL Start: 10-28-2023 Glucose [Mass/volume] in Serum or Plasma NAT BALL Start: 10-28-2023 Glucose [Mass/volume] in Serum or Plasma NAT BALL Start: 10-28-2023 CBC panel - Blood by Automated count Start: 10-28-2023 Comprehensive metabolic 2000 panel - Serum or Plasma NAT BALL Start: 10-28-2023 Magnesium [Mass/volume] in Serum or Plasma NAT BALL Start: 10-27-2023 Glucose [Mass/volume] in Serum or Plasma NAT BALL Start: 10-27-2023 CBC panel - Blood by Automated count NAT BALL Start: 10-27-2023 Comprehensive metabolic 2000 panel - Serum or Plasma Start: 10-27-2023 Magnesium [Mass/volume] in Serum or Plasma Start: 10-27-2023 Glucose [Mass/volume] in Serum or Plasma Start: 10-27-2023 Glucose [Mass/volume] in Serum or Plasma NAT BALL Start: 10-27-2023 Glucose [Mass/volume] in Serum or Plasma NAT BALL Start: 10-27-2023 Glucose [Mass/volume] in Serum or Plasma NAT BALL Start: 10-27-2023 Glucose [Mass/volume] in Serum or Plasma NAT BALL Start: 10-27-2023 Glucose [Mass/volume] in Serum or Plasma NAT BALL Start: 10-26-2023 Glucose [Mass/volume] in Serum or Plasma NAT BALL Start: 10-26-2023 Glucose [Mass/volume] in Serum or Plasma NAT BALL Start: 10-26-2023 Glucose [Mass/volume] in Serum or Plasma NAT BALL Start: 10-26-2023 Glucose [Mass/volume] in Serum or Plasma NAT BALL Start: 10-26-2023 Glucose [Mass/volume] in Serum or Plasma ANT Start: 10-26-2023 Glucose [Mass/volume] in Serum or Plasma NAT Start: 10-26-2023 CBC panel - Blood by Automated count NAT Start: 10-26-2023 Comprehensive metabolic 2000 panel - Serum or Plasma NAT Start: 10-26-2023 Magnesium [Mass/volume] in Serum or Plasma NAT Start: 10-26-2023 Glucose [Mass/volume] in Serum or Plasma NAT Start: 10-25-2023 ADULT DISCHARGE DIET NAT Start: 10-25-2023 DISCHARGE DRAIN/TUBE CARE NAT Start: 10-25-2023 IP CONSULT TO NUTRITION SERVICES LIONEL Carter Start: 10-25-2023 Glucose [Mass/volume] in Serum or Plasma NAT Start: 10-25-2023 CBC panel - Blood by Automated count NAT Start: 10-25-2023 Comprehensive metabolic 2000 panel - Serum or Plasma NAT Start: 10-25-2023 Magnesium [Mass/volume] in Serum or Plasma Start: 10-25-2023 Glucose [Mass/volume] in Serum or Plasma NAT Start: 10-24-2023 Glucose [Mass/volume] in Serum or Plasma NAT Start: 10-24-2023 Glucose [Mass/volume] in Serum or Plasma Start: 10-24-2023 Glucose [Mass/volume] in Serum or Plasma NAT Start: 10-24-2023 PHARMACY TO DOSE VANCO NAT Start: 10-24-2023 CT ABDOMEN PELVIS W IV CONTRAST NAT Start: 10-24-2023 Glucose [Mass/volume] in Serum or Plasma Start: 10-24-2023 VANCOMYCIN, TROUGH NAT Start: 10-24-2023 Glucose [Mass/volume] in Serum or Plasma NAT Start: 10-24-2023 CBC panel - Blood by Automated count NAT Start: 10-24-2023 Comprehensive metabolic 2000 panel - Serum or Plasma NAT Start: 10-24-2023 Magnesium [Mass/volume] in Serum or Plasma NAT Start: 10-23-2023 Glucose [Mass/volume] in Serum or Plasma NAT Start: 10-23-2023 Glucose [Mass/volume] in Serum or Plasma NAT BALL Start: 10-23-2023 Glucose [Mass/volume] in Serum or Plasma Start: 10-23-2023 Glucose [Mass/volume] in Serum or Plasma Start: 10-23-2023 Glucose [Mass/volume] in Serum or Plasma Start: 10-23-2023 POCT GLUCOSE METER Start: 10-23-2023 Glucose [Mass/volume] in Serum or Plasma Start: 10-23-2023 Glucose [Mass/volume] in Serum or Plasma Start: 10-23-2023 CBC panel - Blood by Automated count Start: 10-23-2023 Comprehensive metabolic 2000 panel - Serum or Plasma Start: 10-23-2023 Magnesium [Mass/volume] in Serum or Plasma Start: 10-22-2023 Glucose [Mass/volume] in Serum or Plasma Start: 10-22-2023 Glucose [Mass/volume] in Serum or Plasma Start: 10-22-2023 PICC >5 YR BEDSIDE IMAGING Start: 10-22-2023 IP CONSULT TO IV TEAM Start: 10-22-2023 STAPHYLOCOCCUS AUREUS/MRSA COLONIZATION, CULTURE Start: 10-22-2023 Glucose [Mass/volume] in Serum or Plasma Start: 10-22-2023 CT CHEST ABDOMEN PELVIS W IV CONTRAST Start: 10-22-2023 Glucose [Mass/volume] in Serum or Plasma Start: 10-22-2023 Glucose [Mass/volume] in Serum or Plasma Start: 10-22-2023 Glucose [Mass/volume] in Serum or Plasma Start: 10-22-2023 CBC panel - Blood by Automated count NAT BALL Start: 10-22-2023 Comprehensive metabolic 2000 panel - Serum or Plasma Start: 10-22-2023 Magnesium [Mass/volume] in Serum or Plasma Start: 10-21-2023 Glucose [Mass/volume] in Serum or Plasma Start: 10-21-2023 Glucose [Mass/volume] in Serum or Plasma Start: 10-21-2023 US GUIDED PERCUTANEOUS PERITONEAL OR RETROPERITONEAL FLUID COLLECTION DRAINAGE NAT BALL Start: 10-21-2023 STERILE FLUID CULTURE/SMEAR NAT BAL L Start: 10-21-2023 Glucose [Mass/volume] in Serum or Plasma Start: 10-21-2023 Glucose [Mass/volume] in Serum or Plasma Start: 10-21-2023 Glucose [Mass/volume] in Serum or Plasma Start: 10-21-2023 CBC panel - Blood by Automated count Start: 10-21-2023 Comprehensive metabolic 2000 panel - Serum or Plasma Start: 10-21-2023 Magnesium [Mass/volume] in Serum or Plasma NAT Start: 10-21-2023 VANCOMYCIN NAT BALL Start: 10-21-2023 Glucose [Mass/volume] in Serum or Plasma Start: 10-21-2023 EXTRA URINE GOODMAN TUBE Start: 10-21-2023 Glucose [Mass/volume] in Serum or Plasma Start: 10-20-2023 Glucose [Mass/volume] in Serum or Plasma Start: 10-20-2023 Glucose [Mass/volume] in Serum or Plasma Start: 10-20-2023 Glucose [Mass/volume] in Serum or Plasma Start: 10-20-2023 CT ABDOMEN PELVIS W IV CONTRAST NAT BALL Start: 10-20-2023 URINALYSIS MICROSCOPIC WITH REFLEX CULTURE NAT BALL Start: 10-20-2023 URINALYSIS WITH REFLEX CULTURE AND MICROSCOPIC Start: 10-20-2023 Bacteria identified in Blood by Culture NAT Start: 10-20-2023 TRIGLYCERIDES, FLUID Start: 10-20-2023 Glucose [Mass/volume] in Serum or Plasma Start: 10-20-2023 Glucose [Mass/volume] in Serum or Plasma Start: 10-20-2023 CBC panel - Blood by Automated count NAT BALL Start: 10-20-2023 Comprehensive metabolic 2000 panel - Serum or Plasma NAT Start: 10-20-2023 Magnesium [Mass/volume] in Serum or Plasma Start: 10-20-2023 Glucose [Mass/volume] in Serum or Plasma NAT BALL Start: 10-19-2023 Glucose [Mass/volume] in Serum or Plasma Start: 10-19-2023 Glucose [Mass/volume] in Serum or Plasma NAT Start: 10-19-2023 Glucose [Mass/volume] in Serum or Plasma NAT BALL Start: 10-19-2023 Glucose [Mass/volume] in Serum or Plasma NAT BALL Start: 10-19-2023 Glucose [Mass/volume] in Serum or Plasma Start: 10-19-2023 CBC panel - Blood by Automated count Start: 10-19-2023 Bilirubin.indirect [Mass/volume] in Serum or Plasma Start: 10-19-2023 COAGULATION SCREEN Start: 10-19-2023 Comprehensive metabolic 2000 panel - Serum or Plasma Start: 10-19-2023 Lactate [Moles/volume] in Serum or Plasma Start: 10-19-2023 Magnesium [Mass/volume] in Serum or Plasma Start: 10-19-2023 Phosphate [Mass/volume] in Serum or Plasma Start: 10-19-2023 Glucose [Mass/volume] in Serum or Plasma Start: 10-18-2023 Glucose [Mass/volume] in Serum or Plasma Start: 10-18-2023 Glucose [Mass/volume] in Serum or Plasma Start: 10-18-2023 US GUIDED PERCUTANEOUS PERITONEAL OR RETROPERITONEAL FLUID COLLECTION DRAINAGE NAT Start: 10-18-2023 Glucose [Mass/volume] in Serum or Plasma Start: 10-18-2023 Glucose [Mass/volume] in Serum or Plasma Start: 10-18-2023 CT ABDOMEN PELVIS W IV CONTRAST Start: 10-18-2023 Glucose [Mass/volume] in Serum or Plasma Start: 10-18-2023 CBC panel - Blood by Automated count Start: 10-18-2023 Magnesium [Mass/volume] in Serum or Plasma Start: 10-18-2023 RENAL FUNCTION PANEL Start: 10-18-2023 Glucose [Mass/volume] in Serum or Plasma Start: 10-17-2023 Glucose [Mass/volume] in Serum or Plasma Start: 10-17-2023 Glucose [Mass/volume] in Serum or Plasma Start: 10-17-2023 Glucose [Mass/volume] in Serum or Plasma Start: 10-17-2023 TRIGLYCERIDES, FLUID Start: 10-17-2023 Glucose [Mass/volume] in Serum or Plasma Start: 10-17-2023 NURSING COMMUNICATION - DO NOT USE IN ORDER SETS NAT Start: 10-17-2023 CBC panel - Blood by Automated count Start: 10-17-2023 Magnesium [Mass/volume] in Serum or Plasma Start: 10-17-2023 RENAL FUNCTION PANEL Start: 10-17-2023 Glucose [Mass/volume] in Serum or Plasma Start: 10-16-2023 Glucose [Mass/volume] in Serum or Plasma Start: 10-16-2023 Glucose [Mass/volume] in Serum or Plasma Start: 10-16-2023 Glucose [Mass/volume] in Serum or Plasma Start: 10-16-2023 Glucose [Mass/volume] in Serum or Plasma Start: 10-16-2023 Glucose [Mass/volume] in Serum or Plasma Start: 10-16-2023 Glucose [Mass/volume] in Serum or Plasma Start: 10-16-2023 CBC panel - Blood by Automated count Start: 10-16-2023 Comprehensive metabolic 2000 panel - Serum or Plasma Start: 10-16-2023 Magnesium [Mass/volume] in Serum or Plasma Start: 10-16-2023 Glucose [Mass/volume] in Serum or Plasma Start: 10-15-2023 PICC >5 YR BEDSIDE IMAGING Start: 10-15-2023 Glucose [Mass/volume] in Serum or Plasma Start: 10-15-2023 INSERT PICC LINE Start: 10-15-2023 IP CONSULT TO MOLDING LINE OPERATOR NAT Start: 10-15-2023 IP CONSULT TO NUTRITION SERVICES LIONEL Carter Start: 10-15-2023 STAPHYLOCOCCUS AUREUS/MRSA COLONIZATION, CULTURE Start: 10-15-2023 IP CONSULT TO IV TEAM Start: 10-15-2023 Glucose [Mass/volume] in Serum or Plasma Start: 10-15-2023 Glucose [Mass/volume] in Serum or Plasma Start: 10-15-2023 Glucose [Mass/volume] in Serum or Plasma Start: 10-15-2023 CBC panel - Blood by Automated count Start: 10-15-2023 Comprehensive metabolic 2000 panel - Serum or Plasma Start: 10-15-2023 Magnesium [Mass/volume] in Serum or Plasma Start: 10-15-2023 POCT GLUCOSE METER Start: 10-15-2023 Glucose [Mass/volume] in Serum or Plasma NAT MEDINA Start: 10-14-2023 TRIGLYCERIDES, FLUID NAT MEDINA Start: 10-14-2023 Glucose [Mass/volume] in Serum or Plasma NAT MEDINA Start: 10-14-2023 REVIEW TESTING-FLUID SOURCE NAT Schmid Start: 10-14-2023 TRIGLYCERIDES, FLUID NAT MEDINA Start: 10-14-2023 EXTRA TUBES NAT MEDINA Start: 10-14-2023 STERILE CUP NAT MEDINA Start: 10-14-2023 Glucose [Mass/volume] in Serum or Plasma NAT BALL Start: 10-14-2023 IP CONSULT TO PAIN MANAGEMENT NAT Coello ALL Start: 10-14-2023 DISCHARGE DRAIN/TUBE CARE NAT MEDINA Start: 10-14-2023 WALKER ROLLING ANT MEDINA Start: 10-14-2023 DISCHARGE ACTIVITY NAT MEDINA Start: 10-14-2023 NOTIFY PROVIDER (DO NOT PROMPT FOR PARAMETERS) NAT MEDINA Start: 10-14-2023 WEIGHT LIFTING RESTRICTIONS NAT Schmid Start: 10-14-2023 WOUND CARE NAT MEDINA Start: 10-14-2023 IP CONSULT TO NUTRITION SERVICES LIONEL MEDINA Start: 10-14-2023 Glucose [Mass/volume] in Serum or Plasma NAT Start: 10-14-2023 POCT GLUCOSE METER NAT Start: 10-14-2023 CBC panel - Blood by Automated count NAT MEDINA Start: 10-14-2023 Comprehensive metabolic 2000 panel - Serum or Plasma NAT Start: 10-14-2023 Magnesium [Mass/volume] in Serum or Plasma NAT Start: 10-14-2023 Glucose [Mass/volume] in Serum or Plasma NAT Start: 10-14-2023 Glucose [Mass/volume] in Serum or Plasma NAT Start: 10-14-2023 CBC panel - Blood by Automated count NAT Start: 10-13-2023 TRANSFUSE RED BLOOD CELLS NAT Start: 10-13-2023 Glucose [Mass/volume] in Serum or Plasma NAT Start: 10-13-2023 TRANSFUSE RED BLOOD CELLS NAT Start: 10-13-2023 ADMIT TO INPATIENT NAT MEDINA Start: 10-13-2023 Glucose [Mass/volume] in Serum or Plasma NAT Start: 10-13-2023 PREPARE RBC NAT BALL Start: 10-13-2023 TYPE AND SCREEN NAT Start: 10-13-2023 Glucose [Mass/volume] in Serum or Plasma Start: 10-13-2023 CBC panel - Blood by Automated count NAT Start: 10-13-2023 CBC panel - Blood by Automated count NAT Start: 10-13-2023 TRIGLYCERIDES, FLUID Start: 10-13-2023 Comprehensive metabolic 2000 panel - Serum or Plasma Start: 10-13-2023 Magnesium [Mass/volume] in Serum or Plasma Start: 10-13-2023 Glucose [Mass/volume] in Serum or Plasma Start: 10-13-2023 TRIGLYCERIDES, FLUID Start: 10-13-2023 Glucose [Mass/volume] in Serum or Plasma Start: 10-13-2023 POCT GLUCOSE METER Start: 10-13-2023 Glucose [Mass/volume] in Serum or Plasma Start: 10-12-2023 Glucose [Mass/volume] in Serum or Plasma Start: 10-12-2023 Glucose [Mass/volume] in Serum or Plasma Start: 10-12-2023 Glucose [Mass/volume] in Serum or Plasma Start: 10-12-2023 Glucose [Mass/volume] in Serum or Plasma Start: 10-12-2023 COAGULATION SCREEN NAT Start: 10-12-2023 CBC panel - Blood by Automated count NAT Start: 10-12-2023 Comprehensive metabolic 2000 panel - Serum or Plasma Start: 10-12-2023 Magnesium [Mass/volume] in Serum or Plasma Start: 10-12-2023 Glucose [Mass/volume] in Serum or Plasma Start: 10-12-2023 Glucose [Mass/volume] in Serum or Plasma Start: 10-12-2023 POCT GLUCOSE METER NAT Start: 10-11-2023 Glucose [Mass/volume] in Serum or Plasma NAT Start: 10-11-2023 IP CONSULT TO ENDOCRINOLOGY NAT Schmid Start: 10-11-2023 IP CONSULT TO NUTRITION SERVICES TAYLORJUNIE Carter CAROL Start: 10-11-2023 PT EVAL AND TREAT NAT Start: 10-11-2023 POCT GLUCOSE METER NAT Start: 10-11-2023 WEIGH PATIENT NAT Start: 10-11-2023 BLOOD GAS ARTERIAL FULL PANEL NAT Coello ALL Start: 10-11-2023 Basic metabolic 2000 panel - Serum or Plasma Start: 10-11-2023 CBC W Auto Differential panel - Blood Start: 10-11-2023 Hepatic function 2000 panel - Serum or Plasma Start: 10-11-2023 Magnesium [Mass/volume] in Serum or Plasma Start: 10-11-2023 Phosphate [Mass/volume] in Serum or Plasma Start: 10-11-2023 INITIATE EXTENDED RECOVERY Start: 10-11-2023 Glucose [Mass/volume] in Serum or Plasma Start: 10-11-2023 Glucose [Mass/volume] in Serum or Plasma Start: 10-11-2023 Glucose [Mass/volume] in Serum or Plasma Start: 10-11-2023 BLOOD GAS ARTERIAL FULL PANEL NAT Coello ALL Start: 10-11-2023 SURGICAL PATHOLOGY EXAM Start: 10-11-2023 Glucose [Mass/volume] in Serum or Plasma Start: 10-11-2023 Glucose [Mass/volume] in Serum or Plasma Start: 10-11-2023 VERAB/VERIFY ABORH Start: 10-11-2023 Glucose [Mass/volume] in Serum or Plasma Start: 10-11-2023 BLOOD GAS ARTERIAL Start: 10-11-2023 TYPE AND SCREEN Start: 10-11-2023 PREPARE RBC Start: 10-11-2023 ANESTHESIA PERIPHERAL BLOCK NAT CASH Binu Start: 10-11-2023 ADMIT TO INPATIENT NAT Start: 10-11-2023 POCT GLUCOSE METER Start: 09-25-2023 CT PANCREAS PRE OP EVALUATION WITH CONTRAST TRAY BURK Start: 09-25-2023 CBC panel - Blood by Automated count Start: 09-25-2023 COAGULATION SCREEN Start: 09-25-2023 Comprehensive metabolic 2000 panel - Serum or Plasma Start: 09-25-2023 Hemoglobin A1c/Hemoglobin.total in Blood Start: 09-25-2023 TYPE AND SCREEN Start: 09-25-2023 Ct abdomen & pelvis w/contrast material Tray Burk MD Work Phone: Start: 09-20-2023 ECG 12-LEAD Start: 09-20-2023 COAGULATION SCREEN NAT MEDINA Start: 09-20-2023 EXTRA URINE GOODMAN TUBE NAT MEDINA Start: 09-20-2023 Hemoglobin A1c/Hemoglobin.total in Blood NAT MEDINA Start: 09-20-2023 STAPHYLOCOCCUS AUREUS/MRSA COLONIZATION, CULTURE NAT MEDINA Start: 09-20-2023 TYPE AND SCREEN NAT MEDINA Start: 09-20-2023 URINALYSIS WITH REFLEX CULTURE AND MICROSCOPIC NAT MEDINA Start: 09-20-2023 Ecg routine ecg w/least 12 lds trcg only w/o i&r Tray Burk MD Work Phone: Start: 08-19-2023 CASE REQUEST OPERATING ROOM NAT Schmid Start: 07-22-2023 Comprehensive metabolic 2000 panel - Serum or Plasma NAT MEDINA Start: 07-22-2023 Prealbumin [Mass/volume] in Serum or Plasma NAT MEDINA Start: 07-15-2023 Computed tomography of abdomen and pelvis with contrast DO Nat Medina Work Phone: Start: 07-15-2023 Urine culture DO Nat Medina Work Phone: Start: 08-15-2022 End: 08-15-2022 SARS-CoV-2 (COVID-19) RNA [Presence] in Respiratory specimen by DESIRE with probe detection Troy Maki Start: 08-15-2022 End: 08-15-2022 Venous Full Panel -Next Draw Reina Ezeo ke Start: 11-01-2021 Lipid 1996 panel - Serum or Plasma Yuri Burk MD Work Phone: Start: 10-28-2021 Thyrotropin [Units/volume] in Serum or Plasma Tray Burk MD Work Phone: Start: 01-13-2020 ERCP Nehemiah Alexander Cholecystectomy No PCP None Colonoscopy No PCP None Endoscopic retrograd e cholangiopancreatography No PCP None Esophagogastroduodenoscopy N o PCP None Placement of stent No PCP No ne Plan of Treatment Date Care Activity Detail Author Start: 2037 Shingles (RZV) Vaccine (1 of 2) Shingles (RZV) Vaccine (1 of 2) [facility] Start: 2037 Zoster Vaccines (1 of 2) Zoster Vaccines (1 of 2) [facility] Start: 06-15-2030 DTaP/Tdap/Td Vaccines (6 - Td or Tdap) DTaP/Tdap/Td Vaccines (6 - Td or Tdap) [facility] Start: 06-15-2030 Urine microalbumin profile DTaP,Tdap,Td Vaccine (7 - Td or Tdap) [facility] Start: 06-15-2030 [facility] Start: 11-02-2024 Hepatitis B surface antibody level LDL Cholesterol [facility] Start: 03-25-2024 Hemoglobin A1c measurement HbA1C [facility] Start: 01-29-2024 End: 01-29-2024 ambulatory [facility] [place] Start: 01-29-2024 End: 01-29-2024 Patient encounter procedure 01/29/2024 9:40 AM EDT Office Visit [facility] [place] [address] [address] [place] [address] [place] [address] [address] Department [place] [address] [facility] [place] Start: 12-25-2023 Hemoglobin A1c measurement [facility] Start: 12-24-2023 End: 12-24-2023 Patient encounter procedure 12/24/2023 9:30 AM EDT Office Visit [place] [address] [address] [place] [phone] Magi Ramseh, PA-C [address] [address] Department [place] [address] [facility] Start: 12-24-2023 End: 12-24-2023 Telemedicine consultation with patient 12/24/2023 8:00 AM EDT Telemedicine Clinical Support [place] [address] [place] [phone] Mitch Munoz, PharmD [address] [place] [address] [facility] Start: 12-17-2023 End: 12-17-2023 Telemedicine consultation with patient 12/17/2023 1:00 PM EDT Telemedicine Clinical Support [facility] [address] [place] [address] Patricia Addison RDN, LD [facility] Start: 11-14-2023 Meningococcal B Vaccine: Consider Based On Risk (2 of 4 - Increased Risk Bexsero 2-dose series) Meningococcal B Vaccine: Consider Based On Risk (2 of 4 - Increased Risk Bexsero 2-dose series) [facility] Start: 11-14-2023 End: 11-14-2023 ambulatory [facility] Start: 11-12-2023 End: 11-12-2023 ambulatory [facility] Start: 10-11-2023 End: 10-11-2023 Admission to same day surgery center 10/11/2023 11:35 AM EST - 10/11/2023 6:20 PM EST Surgery [facility] [address] [place] [phone] [place] [address] [address] Department [place] [address] Pancreatectomy [13862 (CPT )] [facility] [place] Comment on above: Pancreatectomy [18734 (CPT )] Start: 10-11-2023 End: 10-11-2023 Pncrtect dstl stot w/o pncrtcojejunostomy Pancreatectomy Alcohol-induced chronic pancreatitis (CMS/HCC) 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) 10/11/2023 11:35 AM EST [facility] [place] Start: 10-11-2023 Subsequent hospital visit by physician 10/11/2023 10:05 AM EST Hospital Encounter [facility] [place] [address] [place] [phone] [place] [address] [address] Department [place] [address] [facility] [place] Start: 08-19-2023 End: 08-19-2023 Patient encounter procedure 08/19/2023 2:45 PM EST Office Visit [facility] [address] [place] [address] [place] [address] [address] Department [place] [address] [facility] Start: 08-19-2023 End: 08-19-2024 CBC panel - Blood by Automated count CBC Lab Routine Alcohol-induced chronic pancreatitis (CMS/HCC) Expected: 08/19/2023 (Approximate), Expires: 08/19/2024 [facility] Work Phone: Comment on above: Expected: 08/19/2023 (Approximate), Expi res: 08/19/2024 Start: 08-19-2023 End: 08-19-2024 Comprehensive metabolic 2000 panel - Serum or Plasma Comprehensive Metabolic Panel Lab Routine Alcohol-induced chronic pancreatitis (CMS/HCC) Expected: 08/19/2023 (Approximate), Expires: 08/19/2024 [facility] Work Phone: Comment on above: Expected: 08/19/2023 (Approximate), Expi res: 08/19/2024 Start: 08-19-2023 End: 08-19-2024 CT Abdomen and Pelvis W contrast IV CT abdomen pelvis w IV contrast Imaging Routine Alcohol-induced chronic pancreatitis (CMS/HCC) Expected: 08/19/2023 (Approximate), Expires: 08/19/2024 [facility] Service Area Work Phone: Comment on above: Expected: 08/19/2023 (Approximate), Expi res: 08/19/2024 Start: 08-19-2023 End: 08-19-2024 EKG 12 lead EKG 12 lead ECG Routine Alcohol-induced chronic pancreatitis (CMS/HCC) Expected: 08/19/2023 (Approximate), Expires: 08/19/2024 [facility] Work Phone: Comment on above: Expected: 08/19/2023 (Approximate), Expi res: 08/19/2024 Start: 08-19-2023 End: 08-19-2024 Hemoglobin A1c/Hemoglobin.total in Blood Hemoglobin A1C Lab Routine Alcohol-induced chronic pancreatitis (CMS/HCC) Expected: 08/19/2023 (Approximate), Expires: 08/19/2024 [facility] Work Phone: Comment on above: Expected: 08/19/2023 (Approximate), Expi res: 08/19/2024 Start: 08-19-2023 End: 10-20-2023 PT and aPTT panel - Platelet poor plasma by Coagulation assay Coagulation Screen Lab Routine Alcohol-induced chronic pancreatitis (CMS/HCC) Expected: 08/19/2023 (Approximate), Expires: 10/20/2023 [facility] Work Phone: Comment on above: Expected: 08/19/2023 (Approximate), Expi res: 10/20/2023 Start: 07-22-2023 End: 07-22-2024 Albumin [Mass/volume] in Serum or Plasma by Bromocresol purple (BCP) dye binding method Albumin Lab Routine Chronic abdominal pain Alcohol-induced acute pancreatitis, unspecified complication status Expected: 07/22/2023 (Approximate), Expires: 07/22/2024 [facility] Work Phone: Comment on above: Expected: 07/22/2023 (Approximate), Expi res: 07/22/2024 Start: 07-22-2023 End: 07-22-2024 Comprehensive metabolic 2000 panel - Serum or Plasma Comprehensive metabolic panel Lab Routine Chronic abdominal pain Alcohol-induced acute pancreatitis, unspecified complication status Expected: 07/22/2023 (Approximate), Expires: 07/22/2024 [facility] Work Phone: Comment on above: Expected: 07/22/2023 (Approximate), Expi res: 07/22/2024 Start: 07-22-2023 End: 07-22-2024 Prealbumin [Mass/volume] in Serum or Plasma Prealbumin Lab Routine Chronic abdominal pain Alcohol-induced acute pancreatitis, unspecified complication status Expected: 07/22/2023 (Approximate), Expires: 07/22/2024 [facility] Service Area Work Phone: Comment on above: Expected: 07/22/2023 (Approximate), Expi res: 07/22/2024 Start: 07-22-2023 Blood chemistry [facility] Start: 07-21-2023 Blood chemistry [facility] Start: 07-20-2023 [facility] Start: 07-17-2023 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 spray painting 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 [facility] Start: 07-16-2023 End: 07-16-2023 [facility] Start: 07-16-2023 Hospital admission [facility] Start: 07-16-2023 Referral to date puller [facility] Start: 07-15-2023 Computed tomography of abdomen and pelvis with contrast CT abdomen pelvis w con [facility] Start: 07-15-2023 CT Abdomen and Pelvis W contrast IV [facility] Start: 07-15-2023 Bacteria identified in Urine by Culture [facility] Start: 05-17-2023 Influenza vaccination [facility] Start: 03-27-2023 Hemoglobin A1c measurement HbA1C [facility] Start: 03-27-2023 Hemoglobin A1c/Hemoglobin.total in Blood HbA1C [facility] Start: 03-01-2023 ANGELES, Provider: Ramos Parekh, Status: Pen, Time: 8:30 AM ANGELES, Provider: Ramos Parekh, Status: Pen, Time: 8:30 AM [facility] [address] Work Phone: Start: 12-28-2022 FUV, Provider: Ramos Parekh, Status: Pen, Time: 10:00 AM FUV, Provider: Ramos Parekh, Status: Pen, Time: 10:00 AM LT-Kzjkhijt-[facility]cjwmq[facility] [address] Work Phone: Start: 12-26-2022 Hemoglobin A1c measurement Diabetes: Hemoglobin A1C [facility] Start: 12-12-2022 End: 12-12-2022 Patient encounter procedure 12/12/2022 Procedure Visit Dentistry Ольга Simmons [address] [place] [address] [facility] Start: 11-23-2022 SURGCMC, Provider: Tray Burk, Status: Pen, Time: 7:00 AM SURGCMC, Provider: Tray Burk, Status: Pen, Time: 7:00 AM KL-Olblbyct-Vikdjkj [facility] [address] Work Phone: Start: 11-14-2022 End: 11-14-2022 Patient encounter procedure 11/14/2022 Procedure Visit Dentistry Connor Chapin [address] [address] [facility] Start: 11-02-2022 VIRREJI, Provider: Ramos Parekh, Status: Pen, Time: 8:00 AM ANGELES, Provider: Ramos Parekh, Status: Pen, Time: 8:00 AM CD-Qomkklbj-Evurrfv [facility] [address] Work Phone: Start: 11-01-2022 Hepatitis B surface antibody level LDL Cholesterol [facility] Start: 11-01-2022 Lipid panel [facility] Start: 10-28-2022 Thyroid stimulating hormone measurement [facility] Start: 09-28-2022 Patient encounter procedure [facility] [place] Start: 09-28-2022 ANGELES, Provider: Ramos Parekh, Status: Pen, Time: 8:00 AM VIRFUVVICKI, Provider: Ramos Parekh, Status: Pen, Time: 8:00 AM II-Qrvcpmmd-Rjlxynf [facility] [address] Work Phone: Start: 09-27-2022 FUV, Provider: Tray Burk, Status: Pen, Time: 11:40 AM FUV, Provider: Tray Burk, Status: Pen, Time: 11:40 AM GB-Sxjquqih-Jaooddr [facility] [address] Work Phone: Start: 08-15-2022 End: 08-16-2023 Dicyclomine 20 mg Oral Tablet 2 Times a Day Before Meals ; Tablet (BENTYL)DOSE = 20 mg Oral Once Start: 15-Aug-2022 End: 15-Aug-2023 Ordered: 15-Aug-2022 Marie Fernandez [facility] Start: 08-14-2022 ERCPANS, Provider: Lisa Lee, Status: Pen, Time: 10:00 AM ERCPANS, Provider: Lisa Lee, Status: Pen, Time: 10:00 AM [facility] Work Phone: Start: 07-27-2022 VIRFUALEJANDRA, Provider: Ramos Parekh, Status: Pen, Time: 9:30 AM VIRFUVHOME, Provider: Ramos Parekh, Status: Pen, Time: 9:30 AM YH[facility]juxilnh[facility] [address] Work Phone: Start: 07-27-2022 ANGELES, Provider: Ramos Parekh, Status: Pen, Time: 8:30 AM VIRFUVHOME, Provider: Ramos Parekh, Status: Pen, Time: 8:30 AM OG-Eumvkrtz-[facility]ycujicP[facility] [address] Work Phone: Start: 06-16-2022 Influenza vaccination Influenza Vaccine (#1) [facility] Start: 05-17-2022 Influenza vaccination INFLUENZA (#1) [facility] Start: 05-14-2022 End: 07-14-2022 CBC W Auto Differential panel - Blood CBC + DIFF Lab Routine Blood in mouth of unknown source Expected: 05/14/2022, Expires: 07/14/2022 [facility] Work Phone: Comment on above: Expected: 05/14/2022, Expires: Start: 05-11-2022 ANGELES, Provider: Ramos Parekh, Status: Pen, Time: 9:00 AM VIRFUVVICKI, Provider: Ramos Parekh, Status: Pen, Time: 9:00 AM XI-Fxtkipwh-[facility]okamgiP[facility] [address] Work Phone: Start: 04-09-2022 FUV, Provider: Rebel oGrdon, Status: Pen, Time: 10:00 AM FUV, Provider: Rebel Gordon, Status: Pen, Time: 10:00 AM [facility] Work Phone: Start: 03-15-2022 NPV, Provider: Rebel Gordon, Status: Pen, Time: 11:40 AM NPV, Provider: Rebel Gordon, Status: Pen, Time: 11:40 AM [facility] [facility] Work Phone: Start: 02-23-2022 FUV, Provider: Ramos Parekh, Status: Pen, Time: 4:30 PM FUV, Provider: Ramos Parekh, Status: Pen, Time: 4:30 PM [facility] [address] Work Phone: Start: 02-23-2022 SURGWEST, Provider: Shorty Koehler, Status: Pen, Time: 12:40 PM SURGWEST, Provider: Shorty Koehler, Status: Pen, Time: 12:40 PM [facility] Work Phone: Start: 02-19-2022 ERCPANS, Provider: Lisa Lee, Status: Pen, Time: 9:00 AM ERCPANS, Provider: Lisa Lee, Status: Pen, Time: 9:00 AM JF-Uzuafnyg-[facility]ebpdpwP[facility] [address] Work Phone: Start: 02-19-2022 EUSANS, Provider: Lisa Lee, Status: Pen, Time: 8:00 AM EUSANS, Provider: Lisa Lee, Status: Pen, Time: 8:00 AM [facility]axpzblt[facility]al[facility] [address] Work Phone: Start: 02-16-2022 FUV, Provider: Ramos Parekh, Status: Pen, Time: 11:30 AM FUV, Provider: Ramos Parekh, Status: Pen, Time: 11:30 AM [facility] [facility] Work Phone: Start: 02-16-2022 Patient encounter procedure [facility] Start: 01-26-2022 Patient encounter procedure [facility] Start: 01-26-2022 SURGWEST, Provider: Shorty Koehler, Status: Pen, Time: 12:00 PM SURGWEST, Provider: Shorty Koehler, Status: Pen, Time: 12:00 PM QM-Ifwfzaxh-Dyyekrp [facility] [address] Work Phone: Start: 01-17-2022 End: 01-18-2023 Naloxone Injectable 0.4 mg IntraVenous Push Once ; (NARCAN)DOSE = 0.2 mg IntraVenous Push Once, PRN patient is unarousable, and respiratory rate lessClinician Notes: [employer] SOCIAL WORKER Infusion and notify H.O. 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 immediately [facility] Comment on above: [employer] SOCIAL WORKER Infusion and notify H.O. immedi ately Start: 01-16-2022 End: 01-17-2023 Sodium Chloride 0.9% Injectable Flush Peripheral Line ; via Peripheral LineVolume = 10 mL IntraVenous Flush Every 8 Hours and as Needed Start: 16-Jan-2022 End: 16-Jan-2023 Ordered: 16-Jan-2022 Ghada Kuo Intent [facility] Start: 01-16-2022 End: 01-17-2023 Glucagon Injectable 1 mg IntraMuscular Once ; DOSE = 1 mg IntraMuscular Every 15 Minutes, PRN Blood Glucose 70 mg/dL or LESS & NO IV accessClinician Notes: IF patient DOES NOT have secure IV access & is Unconscious, Conscious, NPO or Unable to Eat or Drink. Repeat until BG reaches 100 mg/dL or greater. Discontinue Once BG reaches 100 mg/dL or greater. Start: 16-Jan-2022 End: 16-Jan-2023 Ordered: 16-Jan-2022 Ghada Kuo Intent Comments: IF patient DOES NOT have secure IV access & is Unconscious, Conscious, NPO or Unable to Eat or Drink. Repeat until BG reaches 100 mg/dL or greater. Discontinue Once BG reaches 100 mg/dL or greater. [facility] Comment on above: IF patient DOES NOT have secure IV acces s & is Unconscious, Conscious, NPO or Unable to Eat or Drink. Repeat until BG reaches 100 mg/dL or greater. Discontinue Once BG reaches 100 mg/dL or greater. Start: 01-16-2022 ERCPANS, Provider: Lisa Lee, Status: Pen, Time: 8:00 AM ERCPANS, Provider: Lisa Lee, Status: Pen, Time: 8:00 AM RJ-Pwfyvjaj-Pmwaevc [facility] [address] Work Phone: Start: 12-21-2021 NPV, Provider: Shorty Koehler, Status: Pen, Time: 10:45 AM NPV, Provider: Shorty Koehler, Status: Pen, Time: 10:45 AM ET-Quawibzs-Jlicwfw [facility] [address] Work Phone: Start: 11-29-2021 NPV, Provider: Shorty Koehler, Status: Pen, Time: 1:30 PM NPV, Provider: Shorty Koehler, Status: Pen, Time: 1:30 PM [facility] [facility] Work Phone: Start: 11-29-2021 Patient encounter procedure Pain Shobha zoya Au Start: 11-17-2021 Patient encounter procedure [facility] [place] Start: 11-17-2021 VIRREJI, Provider: Ramos Parekh, Status: Xavier, Time: 2:30 PM VIRFUVVICKI, Provider: Ramos Parekh, Status: Xavier, Time: 2:30 PM [facility] Work Phone: Start: 10-26-2021 End: 10-29-2021 Iohexol (Omnipaque 350-Radiology Contrast) . ; (OMNIPAQUE)DOSE = 82.5 mL IntraVenous Push OnceCa.5 mL/Kg/DOSE x 55 Kg = 82.5 mL/Dose (Daily Total is 82.5 mL)LABS: Blood Urea Nitrogen, Serum,7,26-Oct-2021 11:08:32 Creatinine, Serum,0.51,26-Oct-2021 11:08:32 Start: 26-Oct-2021 End: 28-Oct-2021 Ordered: 26-Oct-2021 Sharda Hussein [facility] Start: 10-25-2021 End: 10-26-2022 Dextrose 10% in Water Infusion (Intensive Insulin OS) ; Conditional OrderIV Bag Volume = 500 mL Run at: 50 mL/hr Start: 25-Oct-2021 End: 25-Oct-2022 Ordered: 25-Oct-2021 Sharda Hussein [facility] Start: 10-24-2021 End: 10-25-2022 [facility] Comment on above: IF patient DOES NOT have secure IV acces s & is Unconscious, Conscious, NPO or Unable to Eat or Drink. Repeat until BG reaches 100 mg/dL or greater. Discontinue Once BG reaches 100 mg/dL or greater. Start: 09-21-2021 FUVPRE, Provider: Brenda Yeboah, Status: Pen, Time: 1:30 PM FUVPRE, Provider: Brenda Yeboah, Status: Xavier, Time: 1:30 PM [facility] Work Phone: Start: 04-30-2021 COVID-19 VACCINE (3 - Moderna risk series) COVID-19 VACCINE (3 - Moderna risk series) [facility] Start: 04-30-2021 [facility] Start: 11-12-2020 Pneumococcal vaccination [facility] Start: 11-12-2020 Pneumococcal Vaccine: Pediatrics (0 to 5 Years) and At-Risk Patients (6 to 64 Years) (2 - PCV) Pneumococcal Vaccine: Pediatrics (0 to 5 Years) and At-Risk Patients (6 to 64 Years) (2 - PCV) [facility] Start: 11-05-2020 Cyanocobalamin vitamin b-12 Vitamin B-12 [facility] Start: 11-05-2020 Vitamin D25-OH Vitamin D25-OH [facility] Start: 11-05-2020 [facility] Start: 2017 HPV TESTING HPV TESTING [facility] Start: 2017 Screening for malignant neoplasm of cervix HPV Testing [facility] Start: 2008 PAP TESTING PAP TESTING [facility] Start: 2008 Screening for malignant neoplasm of cervix [facility] Start: 2006 HEPATITIS A (1 of 2 - Risk 2-dose series) HEPATITIS A (1 of 2 - Risk 2-dose series) [facility] Start: 2006 Hepatitis A Vaccine (1 of 2 - Risk 2-dose series) Hepatitis A Vaccine (1 of 2 - Risk 2-dose series) [facility] Start: 2006 Hepatitis A Vaccines (1 of 2 - Risk 2-dose series) Hepatitis A Vaccines (1 of 2 - Risk 2-dose series) [facility] Start: 2006 SHINGRIX VACCINE (1 of 2) SHINGRIX VACCINE (1 of 2) [facility] Start: 2006 Urine microalbumin profile [facility] Start: 2006 Urine screening for protein [facility] Start: 2006 Zoster Vaccines (1 of 2) Zoster Vaccines (1 of 2) [facility] Start: 2006 [facility] Start: 2005 ANNUAL PCP TEAM CHRONIC DISEASE VISIT ANNUAL PCP TEAM CHRONIC DISEASE VISIT [facility] Start: 2005 Hepatitis B surface antibody level LDL CHOLESTEROL [facility] Start: 2005 Hepatitis C screening [facility] Start: 2005 HIV SCREENING HIV SCREENING [facility] Start: 2005 HIV screening HIV Screening [facility] Start: 2005 MMR (1 of 2 - Risk 2-dose series) MMR (1 of 2 - Risk 2-dose series) [facility] Start: 2005 MMR Vaccine (1 of 2 - Risk 2-dose series) MMR Vaccine (1 of 2 - Risk 2-dose series) [facility] Start: 2005 Tetanus + diphtheria + acellular pertussis vaccine (product) [facility] Start: 2002 HIV screening HIV Test [facility] Start: 01-03-2001 Varicella vaccination [facility] Start: 1997 3 comp foot exam completed DIABETIC FOOT EXAM [facility] Start: 1997 Diabetic foot examination [facility] Start: 1997 Glaucoma screening [facility] Start: 1997 Hepatitis B screening URINE ALBUMIN:CREATININE RATIO [facility] Start: 1997 Hepatitis C antibody, confirmatory test DILATED RETINAL EXAM [facility] Start: 1997 Meningococcal B Vaccine: Consider Based On Risk (1 of 4 - Increased Risk) Meningococcal B Vaccine: Consider Based On Risk (1 of 4 - Increased Risk) [facility] Start: 1997 MENINGOCOCCAL B: Consider based on risk (1 of 4 - Increased Risk Bexsero 2-dose series) MENINGOCOCCAL B: Consider based on risk (1 of 4 - Increased Risk Bexsero 2-dose series) [facility] Start: 1997 MENINGOCOCCAL B: Consider based on risk (1 of 4 - Increased Risk) MENINGOCOCCAL B: Consider based on risk (1 of 4 - Increased Risk) [facility] Start: 1993 PNEUMOCOCCAL (1 - PCV) PNEUMOCOCCAL (1 - PCV) [facility] Start: 1993 Pneumococcal vaccination Pneumococcal Vaccine (1 - PCV) [facility] Start: 1992 Hemoglobin A1c/Hemoglobin.total in Blood HBA1C [facility] Start: 1988 HEPATITIS A (1 of 2 - Risk 2-dose series) HEPATITIS A (1 of 2 - Risk 2-dose series) [facility] Start: 1988 Hepatitis B Surface Antibody Hepatitis B Surface Antibody [facility] Start: 1988 [facility] Start: 05-09-1988 COVID-19 Vaccine (#1) COVID-19 Vaccine (#1) [facility] Start: 1987 Diabetes: Celiac Disease Screening Diabetes: Celiac Disease Screening [facility] Start: 1987 Hepatitis B Vaccines (1 of 3 - 3-dose series) Hepatitis B Vaccines (1 of 3 - 3-dose series) [facility] Start: 1987 Screening for malignant neoplasm of breast Mammography shared decision making (35 through 39 years) [facility] Start: 1987 Screening for osteoporosis [facility] Start: 1987 TB Test TB Test [facility] Start: 1987 Yearly Adult Physical Yearly Adult Physical [facility] Start: 1987 [facility] End: 11-02-2023 Cholesterol [Mass/volume] in Body fluid [facility] Work Phone: End: 09-25-2023 CT Pancreas W contrast IV [facility] Work Phone: Comment on above: Once for 1 Occurrences starting 09/25/19 until 09/25/2023 ECG 12 Lead [facility] Work Phone: End: 05-13-2023 EGD - THERAPEUTIC, EUS, OR TUBE INTERVENTIONS EGD - THERAPEUTIC, EUS, OR TUBE INTERVENTIONS Endoscopy Routine Other chronic pancreatitis (HCC) 1 Occurrences starting 05/13/2022 until 05/13/2023 [facility] Work Phone: Comment on above: 1 Occurrences starting 05/13/2022 until 05/13/2023 EKG 12 lead EKG 12 lead ECG Routine Alcohol-induced chronic pancreatitis (CMS/HCC) 09/20/2023 4:42 PM EST [facility] Work Phone: Electrocardiogram, 1 2-lead PRN ACS symptoms [facility] [facility] Work Phone: End: 05-13-2023 ERCP ERCP Endoscopy Routine Other chronic pancreatitis (HCC) 1 Occurrences starting 05/13/2022 until 05/13/2023 [facility] Work Phone: Comment on above: 1 Occurrences starting 05/13/2022 until 05/13/2023 End: 11-07-2023 Glucose [Mass/volume] in Serum or Plasma [facility] Work Phone: Glucose measurement estimated from glycated hemoglobin [facility] End: 10-31-2023 Incentive spirometry Instruct [facility] Work Phone: Nausea Nausea [facility] Patient Education Pancreatitis (DC) [facility] Work Phone: Patient referral [facility] Work Phone: Pncrtect dstl stot w /o pncrtcojejunostomy Pancreatectomy Alcohol-induced chronic pancreatitis (CMS/HCC) 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) [facility] Work Phone: End: 11-02-2023 Review Testing- Fluid Source [facility] Work Phone: [facility] Immunizations Immunization Date Immunization Notes Care Provider Fa cility 10-17-2023 haemophilus influenz ae type b vaccine, PRP-T conjugate Tray Burk MD Work Phone: [facility] Work Phone: 10-17-2023 meningococcal B vacc ine, recombinant, OMV, adjuvanted Tray Burk MD Work Phone: [facility] Work Phone: 10-17-2023 meningococcal oligosaccharide (groups A, C, Y and W-135) diphtheria toxoid conjugate vaccine (MCV4O) Tray Burk MD Work Phone: [facility] Work Phone: 10-17-2023 Tray Vasquez Work Phone: [facility] 07-16-2023 influenza, injectabl e, quadrivalent, preservative free DO Nat Medina Work Phone: [facility] 04-02-2021 Moderna COVID-19 Vac cine 100 MCG/0.5ML Intramuscular Suspension No PCP None [facility] 03-05-2021 Moderna COVID-19 Vac cine 100 MCG/0.5ML Intramuscular Suspension No PCP None [facility] 07-04-2020 influenza virus vacc ine, split virus (incl. purified surface antigen) Nat Medina Other [employer] [facility] Other 07-04-2020 influenza virus vacc ine, unspecified formulation Matt Bond MD Work Phone: [facility] 06-15-2020 diphtheria, tetanus toxoids and acellular pertussis vaccine, unspecified formulation Nat Medina Other [facility] 06-15-2020 tetanus toxoid, redu manny diphtheria toxoid, and acellular pertussis vaccine, adsorbed No PCP None [facility] Work Phone: 11-12-2019 pneumococcal polysaccharide vaccine, 23 valent Tray Burk MD Work Phone: [facility] Work Phone: 09-11-2016 TD(adult) unspecifie d formulation No PCP None [facility] 05-08-2014 tetanus and diphther ia toxoids, adsorbed, preservative free, for adult use (5 Lf of tetanus toxoid and 2 Lf of diphtheria toxoid) Nat Medina Other [facility] 12-06-2000 measles, mumps and rubella virus vaccine No PCP None [facility] Work Phone: 05-08-1993 diphtheria, tetanus toxoids and acellular pertussis vaccine, unspecified formulation No PCP [facility] Work Phone: 05-08-1993 trivalent poliovirus vaccine, live, oral No PCP [facility] Work Phone: 08-31-1991 haemophilus influenz ae type b vaccine, conjugate unspecified formulation No PCP None [facility] Work Phone: 05-20-1991 diphtheria, tetanus toxoids and pertussis vaccine No PCP [facility] Work Phone: 05-20-1991 measles, mumps and rubella virus vaccine No PCP None [facility] Work Phone: 05-20-1991 trivalent poliovirus vaccine, live, oral No PCP None [facility] Work Phone: 01-21-1989 diphtheria, tetanus toxoids and pertussis vaccine No PCP None [facility] Work Phone: 01-21-1989 trivalent poliovirus vaccine, live, oral No PCP None [facility] Work Phone: 07-13-1988 diphtheria, tetanus toxoids and pertussis vaccine No PCP None [facility] Work Phone: 07-13-1988 trivalent poliovirus vaccine, live, oral No PCP None [facility] Work Phone: Payers Date Payer Category Payer Self-pay [id number] 2022 Private Health Insurance [id number] 2022 Medicaid [id number] 2022 Medicaid [facility] MED[facility] [employer] MEDICAID [id number] 2022-Present [phone] [address] [place] [address] Medicaid [id number] 2021 Medicaid [id number] 2021 Unknown 2021 Unknown [employer] BLUE CARD PPO OOS [id number] 2021-Present [phone] [address] [place] [address] PPO [id number] 2019 Unknown MMO MMO [employer] [id number] 2019-Present [phone] [address] [place] [address] PPO [id number]. [id number] 1987 Unknown [id number] 2.16.840.1.997133.3.579.2. 593 1987 Unknown [id number] 2.16.840.1.892872.3.579.2. 593 1987 Unknown [id number] 2.16.840.1.885305.3.579.2. 593 1987 Unknown [id number] 2.16.840.1.317388.3.579.2. 593 1987 Unknown [id number] 2.16.840.1.174654.3.579.2. 593 1987 Unknown [id number] 2.16.840.1.466077.3.579.2. 593 1987 Unknown [id number] 2.16.840.1.714663.3.579.2. 732 1987 Unknown [id number] 2.16.840.1.072212.3.579.2. 1259 1987 Unknown [id number] 2.16.840.1.764092.3.579.2. 1244 1987 Unknown [id number] 2.16.840.1.171400.3.579.2. 356 1987 Unknown [id number] 2.16.840.1.745086.3.579.2. 356 1987 Unknown [id number] 2.16.840.1.167342.3.579.2. 356 1987 Unknown [id number] 2.16.840.1.077331.3.579.2. 356 1987 Unknown [id number] 2.16.840.1.903373.3.579.2. 1245 1987 Unknown [id number] 2.16.840.1.486954.3.579.2. 1244 1987 Unknown [id number] 2.16.840.1.426997.3.579.2. 1244 1987 Unknown [id number] 2.16.840.1.174196.3.579.2. 1244 1987 Unknown [id number] 2.16.840.1.105517.3.579.2. 1244 1987 Unknown [id number] 2.16.840.1.709869.3.579.2. 1244 1987 Unknown [id number] 2.16.840.1.255503.3.579.2. 1244 1987 Unknown [id number] 2.16.840.1.326706.3.579.2. 1244 1987 Unknown [id number] 2.16.840.1.616143.3.579.2. 1244 1987 Unknown [id number] 2.16.840.1.947381.3.579.2. 1244 1987 Unknown [id number] 2.16.840.1.219936.3.579.2. 1244 1987 Unknown [id number] 2.16.840.1.379580.3.579.2. 1244 1959 [facility] [id number] 2.16840.1.076832.19 1959 Unknown [id number] 2.16.840.1.142249.19 Unknown [id number] Unknown [id number] 2.16840.1.110767.3.579.2. 531 Unknown [id number] 2.16840.1.200868.3.579.2. 531 Social History Date Type Detail Facility Assertion Tobacco smoking consumption unknown (finding) [facility] Work Phone: Start: 05-10-2022 End: 11-08-2023 Electronic cigarette use Electronic cigarette use [facility] Tobacco smoking consumption unknown [facility] Start: 05-10-2022 End: 11-08-2023 Sex Assigned At [facility] Start: 01-27-2019 End: 05-10-2022 Tobacco smoking status NHIS Ex-smoker [facility] Start: 04-02-2022 End: 09-25-2023 Alcohol intake Current drinker of alcohol (finding) [facility] Start: 1985 Sex Assigned At Female [facility] Start: 03-24-2022 End: 11-03-2023 Exposure to SARS-CoV-2 (event) Not sure [facility] End: 06-16-2023 History of tobacco use Current smoker [facility] Start: 01-27-2019 End: 05-10-2022 Tobacco use and exposure Smokeless tobacco non-user [facility] Start: 1987 Sex Assigned At Not on file [facility] National Score (1-10 0), lower number is lower risk 56 [facility] Start: 04-01-2022 Gender identity Identifies as female gender (finding) [facility] Start: 04-01-2022 Sexual orientation Heterosexual (finding) [facility] End: 06-16-2023 History of tobacco use Cigarette Smoker [facility] Work Phone: Start: 08-19-2023 End: 10-11-2023 Alcohol intake Lifetime non-drinker (finding) [facility] Work Phone: How often to you hav e a drink containing alcohol? Never [facility] How hard is it for y ou to pay for the very basics like food, housing, medical care, and heating Not very hard [facility] Do you feel stress - tense, restless, nervous, or anxious, or unable to sleep at night because your mind is troubled all the time - these days [OSQ] Not at all [facility] (I/We) worried wheaddis er (my/our) food would run out before (I/we) got money to buy more. Never true [facility] Work Phone: In the past 12 month s, was there a time when you were not able to pay the mortgage or rent on time? No [facility] Work Phone: Medical Equipment Procedure Code Equipment Code Equipment Origin al Text Equipment Identifier Dates ERCP (endoscopic retrograde cholangiopancreatog dominic) STENT RX BILIARY 10FR X 5CM FDA Start: 07-15-2018 ERCP (endoscopic retrograde cholangiopancreatog dominic) STENT RX BILIARY 10FR X 5CM FDA Start: 07-15-2018 ERCP (endoscopic retrograde cholangiopancreatog dominic) STENT RX BILIARY 10FR X 5CM FDA Start: 07-15-2018 ERCP (endoscopic retrograde cholangiopancreatog dominic) STENT RX BILIARY 10FR X 5CM FDA Start: 07-15-2018 ERCP (endoscopic retrograde cholangiopancreatog dominic) STENT RX BILIARY 10FR X 5CM FDA Start: 07-15-2018 [id number], [id number], [id number] Start: 10-26-2019 End: 01-17-2024 Stent Advanix 10 fr Duodenal Bend Plastic 7cm Biliary 1 Temporary Accepts - [id number] Start: 06-06-2022 Stent Advanix Naviflex 10fr Plastic 202.5cm Biliary Delivery System Rapid - [id number] Start: 06-06-2022 Goals Date Patient Goal Desired Activity /State Functional Status Date Assessment Result Facility 07-20-2023 Functional status Patient at Baseline [facility] Work Phone: Functional observable [facility] NEGATED: Highlighted row Functional performance Functional status health issues are not documented Disease [facility] Work Phone: Mental Status Date Assessment Result Facility 07-20-2023 Cognitive function Cognitive Sta tus Patient at Baseline [facility] Work Phone: 01-21-2022 Cognitive functi ons :16 [facility] 10-29-2021 Cognitive functi ons :01 [facility] NEGATED: Highlighted row Cognitive function [Interpretation] Cognitive status health issues are not documented Disease [facility] Work Phone: Clinical Notes 08-09-2020 to 12-10-2023 Telephone Encounter - Raffi Santiago RN - 12/10/2023 3:40 PM EDTTelephone Encounter - Raffi Santiago RN - 12/09/2023 4:31 PM EDTRamos Parekh MD - 12/06/2023 2:03 PM EDTDischarge Instructions Note Date & Type Note Facility 12-10-2023 Miscellaneous Notes LVM rX sent to pharmacy Gem Santiago RNCC Palliative Medicine Patient phones requesting refills as follows: Requested Prescriptions Pending Prescriptions Disp Refills HYDROmorphone (EXALGO) 8 mg ER tablet 14 tablet 0 Sig: Take 1 tablet by mouth two times a day for 7 days. Please review and advise. Raffi Santiago RN Needs hydromorphone refill Patient has been identified by name and date of : Yes Admin number provided for next call: Yes RX INSTRUCTIONS: Patient requesting a call when RX is approved and sent to the pharmacy. Please call patient at: [phone] Pharmacy verified:Yes , [id number] - [place] [address] - [address] [facility] [phone] [id number] [address] Doming[address] Patient Lead Sql Developer documented in this encounter [facility] 12-06-2023 Note HNO ID: [id number] Author: RAMOS PAREKH MD Service: ? Author Type: Physician Type: Progress Notes Filed: 12/06/2023 22:29 Note Text: PALLIATIVE MEDICINE AT HOME PROGRESS NOTE SERVICE DATE: December 06, 2023 IDENTIFICATION AND INTRODUCTION: Julieth Spnecer is a 38 year old female This visit took place Virtually; I have communicated my name and active licensure. The patient's identity and physical location were verified at the time of this visit. The patient or their legal claims service representative has been informed of the risks and benefits of -- and alternatives to -- treatment through a remote evaluation and consents to proceed with the evaluation remotely. CHIEF COMPLAINT: No chief complaint on file. 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 In October 2023, she underwent a pancreatectomy procedure to help with this chronic issue. Palliative care is involved for assistance with pain management; she is a patient from my former practice at [facility]. Subjective Julieth was seen virtually today. She shared the following Had been doing relatively well, but past 2 days have been more problematic. Pain at the moment is slightly lateral to epigastrum, in ribs to left. Slight radiation to left, but not around the the back. Poor appetite. Nausea with buprenorphine patches, self discontinued. Currently is on hydromorphone ER 8 mg twice daily with oxycodone 15 mg every 4 hours PRN. No side effects of medications. REVIEW OF SYSTEMS: Modified ESAS (Fowler Symptom Assessment Scale) Information Provided By: Patient Pain: Severe today, has been mild or moderate most days prior Nausea: Mild Loss of Appetite: Mild Constipation: None Shortness of Breath: None Drowsiness: None Tiredness: None Depression: None Anxiety: None How you feel overall: Fair Objective PHYSICAL EXAMINATION: [facility] 01/11/2019 General appearance: alert, in no acute distress Head: atraumatic, symmetric Skin: Intact, no rash, no notable lesions Eyes: Anicteric sclera. Extraocular movements are intact. Oropharynx: MMM Respiratory: breathing non-labored and no grunting/flaring/retractions Chest: equal chest rise with normal respiratory effort Abdomen: Abdomen non-distended Extremities: No clubbing or cyanosis. No edema. Musculoskeletal: No joint swelling or erythema. Neuro: alert and oriented x3 DATA: Diagnostic tests reviewed for today's visit: Most recent labs and imaging results. Creatinine Date Value Ref Range Status 06/09/2022 0.66 0.58 - 0.96 mg/dL Final CrCl cannot be calculated (Patient's most recent lab result is older than the maximum 180 days allowed.). Opioid Management: Indication for Opioid Prescribing: Chronic, Non-cancer pain ORT-OUD Score: 0 A score of 3 or higher may indicate a higher risk for future development of aberrant drug related behavior or opioid use disorder. Informed consent for chronic opiate therapy obtained and written pain agreement: Will complete at next visit Naloxone offered?: Previously prescribed Course of treatment, patient's response and adherence to the prescribed treatment plan reviewed, including non-pharmacological and non-opioid treatment modalities? Yes Have any complications or exacerbations of the underlying condition causing the pain been reviewed? Yes How much does pain impede patient?s ability to engage in work or other purposeful activities, interfere with your activities of daily living, physical activity, or quality of your family life and social activities? Significantly Aberrancies in pain panel? Pending Any aberrant drug related behaviors since last visit? No Rationale for continuing opioid treatment: Improved comfort and function based on an ongoing functional assessment Benefits of Opioid Therapy outweigh risks: Yes Prescribed Morphine Equivalent Daily Dose (MEDD): Yes > 120MEDD Yes, I am certified in Hospice and Palliative Care, Hematology, Medical Oncology or Pain Medicine OARRS Checked: PDMP website checked and validated. All prescriptions have been APPROPRIATELY filled. No suspicious activity was identified. 12/06/2023 by Ramos Parekh MD Urine Screen No results found for: UAMPH , UBARB , UBARB2 , UBENZ , UQBUPRE , UQNORBUP , UCOC2 , UQCANN , UOPI , UOXYC , UPCP , UTHC , THC , UETOH Urine Panel: No results found for: UQCANN , UQBNZL , XXM2NZA , UQAMPH , UQMAMP , UQBUPRE , UQNORBUP , UQMTHD , UQEDDP , UQTRAM , UQDTRM , UQFNTL , UQNFTL , UQCODE , UQMORP , UQDCDN , UQHCOD , UQOXYC , UQHMOR , UQOXYM , UQCREA , UQPH , UQSPGR , UQOXID , UQSPQ Assessment AND Plan Julieth Spencer is a 38 year old female with history of chronic non-alcoholic pancreatitis s/p multiple ERCP procedures. In October 2023, she underwent a pancreatectomy procedure to help w (more content not included)... [facility] 12-06-2023 History of Present illness Narrative PALLIATIVE MEDICINE AT HOME PROGRESS NOTE SERVICE DATE: December 06, 2023 IDENTIFICATION AND INTRODUCTION: Julieth Spencer is a 38 year old female This visit took place Virtually; I have communicated my name and active licensure. The patient's identity and physical location were verified at the time of this visit. The patient or their legal claims service representative has been informed of the risks and benefits of -- and alternatives to -- treatment through a remote evaluation and consents to proceed with the evaluation remotely. CHIEF COMPLAINT: No chief complaint on file. 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 In October 2023, she underwent a pancreatectomy procedure to help with this chronic issue. Palliative care is involved for assistance with pain management; she is a patient from my former practice at [facility]. Subjective Julieth was seen virtually today. She shared the following Had been doing relatively well, but past 2 days have been more problematic. Pain at the moment is slightly lateral to epigastrum, in ribs to left. Slight radiation to left, but not around the the back. Poor appetite. Nausea with buprenorphine patches, self discontinued. Currently is on hydromorphone ER 8 mg twice daily with oxycodone 15 mg every 4 hours PRN. No side effects of medications. REVIEW OF SYSTEMS: Modified ESAS (Fowler Symptom Assessment Scale) Information Provided By: Patient Pain: Severe today, has been mild or moderate most days prior Nausea: Mild Loss of Appetite: Mild Constipation: None Shortness of Breath: None Drowsiness: None Tiredness: None Depression: None Anxiety: None How you feel overall: Fair Objective PHYSICAL EXAMINATION: [facility] 01/11/2019 General appearance: alert, in no acute distress Head: atraumatic, symmetric Skin: Intact, no rash, no notable lesions Eyes: Anicteric sclera. Extraocular movements are intact. Oropharynx: MMM Respiratory: breathing non-labored and no grunting/flaring/retractions Chest: equal chest rise with normal respiratory effort Abdomen: Abdomen non-distended Extremities: No clubbing or cyanosis. No edema. Musculoskeletal: No joint swelling or erythema. Neuro: alert and oriented x3 DATA: Diagnostic tests reviewed for today's visit: Most recent labs and imaging results. Creatinine Date Value Ref Range Status 06/09/2022 0.66 0.58 - 0.96 mg/dL Final CrCl cannot be calculated (Patient's most recent lab result is older than the maximum 180 days allowed.). Opioid Management: Indication for Opioid Prescribing: Chronic, Non-cancer pain ORT-OUD Score: 0 A score of 3 or higher may indicate a higher risk for future development of aberrant drug related behavior or opioid use disorder. Informed consent for chronic opiate therapy obtained and written pain agreement: Will complete at next visit Naloxone offered?: Previously prescribed Course of treatment, patient's response and adherence to the prescribed treatment plan reviewed, including non-pharmacological and non-opioid treatment modalities? Yes Have any complications or exacerbations of the underlying condition causing the pain been reviewed? Yes How much does pain impede patient s ability to engage in work or other purposeful activities, interfere with your activities of daily living, physical activity, or quality of your family life and social activities? Significantly Aberrancies in pain panel? Pending Any aberrant drug related behaviors since last visit? No Rationale for continuing opioid treatment: Improved comfort and function based on an ongoing functional assessment Benefits of Opioid Therapy outweigh risks: Yes Prescribed Morphine Equivalent Daily Dose (MEDD): Yes > 120MEDD Yes, I am certified in Hospice and Palliative Care, Hematology, Medical Oncology or Pain Medicine OARRS Checked: PDMP website checked and validated. All prescriptions have been APPROPRIATELY filled. No suspicious activity was identified. 12/06/2023 by Ramos Parekh MD Urine Screen No results found for: UAMPH , UBARB , UBARB2 , UBENZ , UQBUPRE , UQNORBUP , UCOC2 , UQCANN , UOPI , UOXYC , UPCP , UTHC , THC , UETOH Urine Panel: No results found for: UQCANN , UQBNZL , MFR7QDG , UQAMPH , UQMAMP , UQBUPRE , UQNORBUP , UQMTHD , UQEDDP , UQTRAM , UQDTRM , UQFNTL , UQNFTL , UQCODE , UQMORP , UQDCDN , UQHCOD , UQOXYC , UQHMOR , UQOXYM , UQCREA , UQPH , UQSPGR , UQOXID , UQSPQ Assessment & Plan Julieth Spencer is a 38 year old female with history of chronic non-alcoholic pancreatitis s/p multiple ERCP procedures. In October 2023, she underwent a pancreatectomy procedure to help with this chronic issue. Palliative care is involved for assistance with pain management; she is a patient from my former practice at [facility]. Chronic Pancreatitis Chronic Abdominal Pain Nausea and Vomiting Protein-Calorie Malnutrition - Patient with ongoing pain management issues - Opiate regimen was started while she was admitted at [facility] in June 2022 with acute pancreatitis - She remains open to alternate pain management options, but has historically had trouble finding other pain management providers in her area ([place]) - We have discussed options such as nerve blocks, non-invasive options (acupuncture, etc.), methadone, ketamine, etc. - We have discussed that our group does not routinely manage pain unrelated to serious, life-limiting illness. - Given that I am her prior opiate prescriber, and given that no provider assumed long-term care of my clinic patients at , will continue to prescribe for her for the time being - From visit 08/02/2023: We had a discussion today regarding our departmental criteria for pain management, and that I would still recommend she establish with pain management for long-term pain management. That said, she asked that I continue to be her pain medication provider until she has the pancreatectomy procedure in September 2023. Given that this is in the very near future, I believe this is a reasonable approach. I advised her that, should she have residual pain after the procedure (and there is a reasonable chance that she will, though it will hopefully be diminished compared to her current pain level), that she will need to establish with an alternate pain management provider at that time. She is agreeable to this plan. - Patient now s/p pancreatectomy and having primarily post-operative pain - Patient discontinued buprenorphine patches due to side effects of significant headaches - Currently using a prior supply of hydromorphone ER on twice daily PRN basis - We discussed the importance of adherence to medical regimen and not deviating from the dosing regimen or starting or stopping medications without discussion with the prescribing provider (me) in advance. - We will continue this for the time being, though if she continues to have significant opiate needs in 4 weeks, we will need to establish her with an alternate provider, either to wean opiates or to find an alternate effective regimen. Some elements copied from my note on 11/08/2023, the elements have been updated and all reflect current decision making from today, 12/06/2023. Next Visit: 4 Weeks in-person if possible Palliative Medicine Nurse to do telephonic follow-up: No Ict Quality Assurance Engineer Services: None at this time Referral to Immigration Case Manager: No, not at this time Ramos Parekh MD December 06, 2023 2:03 PM documented in this encounter [facility] 11-29-2023 Miscellaneous Notes Next visit 12/06/23 Patient phones requesting refills as follows: Requested Prescriptions Pending Prescriptions Disp Refills oxyCODONE (ROXICODONE) 15 mg immediate release tablet 180 tablet 0 Sig: Take 1 tablet by mouth every 4 hours as needed for pain for up to 30 days. Please review and advise. Raffi Santiago RN Julieth Spencer is calling today regarding Refill Request. Patient has been identified by name and birthdate. Requesting delivery method: call/escript to: Madelin Jefferson MD Additional Concern: N/A Requesting response back: N/A, no action needed [phone] (cell) Kandis Hernandez November 29, 2023 documented in this encounter [facility] 11-21-2023 History of Present illness Narrative Clinical Pharmacy Team met with Julieth Spencer regarding a consultation for diabetes management thanks to a referral from Magi Ramesh PA-C. Below is a summary of our conversation and recommendations: Allergies Allergen Reactions Morphine Other Hallucintations Sulfamethoxazole-Trimethoprim Hives Objective There were no vitals taken for this visit. Diabetes Pharmacotherapy: Lantus 6 units subcutaneous once daily Humalog ICR of 1:30 and ISF 1:50 >150 mg/dL Lab Review Lab Results Component Value Date BILITOT 0.2 11/05/2023 CALCIUM 8.8 11/05/2023 CO2 27 11/05/2023 CL 96 (L) 11/05/2023 CREATININE 0.67 11/05/2023 GLUCOSE 247 (H) 11/05/2023 ALKPHOS 112 (H) 11/05/2023 K 5.4 (H) 11/05/2023 PROT 6.3 (L) 11/05/2023 NA 132 (L) 11/05/2023 AST 17 11/05/2023 ALT 12 11/05/2023 BUN 7 11/05/2023 ANIONGAP 14 11/05/2023 MG 2.12 11/05/2023 PHOS 3.7 11/04/2023 ALBUMIN 2.9 (L) 11/05/2023 AMYLASE 17 (L) 10/28/2021 LIPASE <3 (A) 08/15/2022 GFRF >90 09/27/2022 Lab Results Component Value Date TRIG 286 (H) 11/01/2021 CHOL 127 11/01/2021 HDL 30.0 (A) 11/01/2021 Lab Results Component Value Date HGBA1C 5.5 09/25/2023 HGBA1C 5.5 09/27/2022 HGBA1C 7.3 11/05/2019 The ASCVD Risk score (John SHAH, et al., 2019) failed to calculate for the following reasons: The 2019 ASCVD risk score is only valid for ages 40 to 79 Monitoring Dexcom Clarity Reporting period: SatNov 08, 2023 - SatNov 21, 2023 Glucose Details Average glucose: 215 mg/dL Standard deviation: 101 mg/dL GMI: 8.5% Time in Range Very High: 36% High: 20% In Range: 41% Low: 2% Very Low: 1% Target Range 70-180 mg/dL CGM Details Sensor usage: 100% Days with CGM data: Assessment/Plan The patient reports today for a diabetes consultation. Reviewed CGM report and discussed it with the patient. TIR is not at goal. Patient is experiencing both highs and lows. Discussed this with the patient. Her glycemic fluctuations appear to be in regard to her covering for her meals. We will have her meet with our diteian to review carb counting accuracy. She was previously on a tandem insulin pump and reports doing well on it. Has been off of the pump for about 1 year as she states she misplaced and lost it. She would benefit from using a pump with an AID software to help address her periods of highs and lows. We will work on getting omnipods covered for her. She is to meet with our dietican first and then we will faciliate pump training. Patient was agreeable to this. PATIENT EDUCATION/GOALS Goals Fasting B - 130 mg/dL Postprandial BG: less than 180 mg/dL A1c: less than 7% Provided counseling on lifestyle modifications, medications, and self-monitoring. Patient has no additional questions at this time. Please reach out with any questions. Thank you. Mitch Munoz PharmD Continue all meds under the continuation of care with the referring provider and clinical pharmacy team. documented in this encounter [facility] Work Phone: 11-14-2023 Miscellaneous Notes Call to alexa bueno with last PA was resubmitted plan to follow up tomorrow regarding status of PA Gem Santiago RNCC Palliative Medicine Julieth is calling stating that her insurance company needs a call back regarding her Fentanyl patch refill request.They need a verbal confirmation. If you have any questions please call Julieth back at [phone] documented in this encounter [facility] 11-13-2023 Miscellaneous Notes Collaborated with Dr. Parekh, plan to start fentanyl patch. Pharmacy needs PA. PA started in separate encounter. Call to patient agrees to plan. Will let her know when PA is approved. She would like to have in person visit in 2 weeks. She will call office back tomorrow to discuss. Provided fentanyl patch educations: Change patch every 3 days. Should rotate site with patch change. Apply patch to clean dry skin. Apply to fat tissue for better absorption. You may reinforce patch with tape/ Band-Aid if starting to come off. Please be careful to not change patch more frequently than 3 days. The patch will provide long acting pain medication. You should still take your PRN opioid medication, hope that pain will be less and will not require as much medication. Should take PRN as needed for pain. Please avoid getting patch wet, cover before showering, best to shower on patch change day. Avoid heat on patch as this will cause patch to release more medication and will then not last 3 days, could also cause overdose. Gem Santiago, KISHACC Palliative Medicine The switch to a patch is a good idea. I'll stop the hydromorphone today and send a script for fentanyl 25 mcg/hr patch, which she can wear for 72 hours at a time. It may take about 24 hours before she feels the full effect of it. We'll check in with her in 2 days to see how it's doing for her and can adjust at that time if needed. I think it would also be a good idea for me to see her virtually again on Saturday or sometime early next week to check in, too. Julieth called back in and wanted to know what Dr Parekh thought she should do. Has several questions regarding her medications she is on / what would help her with her pain. Said that the Hydromorphone seems to help when she is sleeping, but when she is waking up / moving or even coughs, she can feel the inside of the incision and is in a lot of pain.Takes forever for her to get out of bed now. Mentioned how at her last appointment they discussed her using Fentanyl patches. She did more research on the patches to see if she would even want to try something like that. Saw that it might help her more with the pain until she starts to heal more. Pt is not sure if Dr Parekh would want to have a sooner appointment with her to discuss the medicine again? Currently scheduled for 12/06/23 (virtual). Asked to be called back at [phone]. Shayy Nino documented in this encounter [facility] 11-13-2023 Miscellaneous Notes Message responded/ addressed via phone encounter documented in this encounter [facility] 11-13-2023 Miscellaneous Notes Julieth called back in. Scheduled a virtual appointment with Dr Parekh on 12/06/23. Pt said she has not been cleared to drive yet. If she gets cleared before the appointment she will call in to see if she can make it in person. Shayy Nino L/M for patient to call back to schedule per below. Patient needs 4 week in person appt at [facility] is possible. Virtual if not. 4 weeks (around 12/06/2023) Called and LVM for patient to call and schedule. documented in this encounter [facility] 11-08-2023 Note HNO ID: [id number] Author: RAMOS PAREKH MD Service: ? Author Type: Physician Type: Progress Notes Filed: 11/08/2023 17:09 Note Text: PALLIATIVE MEDICINE AT HOME PROGRESS NOTE SERVICE DATE: November 08, 2023 IDENTIFICATION AND INTRODUCTION: Julieth Spencer is a 37 year old female This visit took place Virtually; I have communicated my name and active licensure. The patient's identity and physical location were verified at the time of this visit. The patient or their legal claims service representative has been informed of the risks and benefits of -- and alternatives to -- treatment through a remote evaluation and consents to proceed with the evaluation remotely. CHIEF COMPLAINT: Patient presents with: Follow Up PERTINENT MEDICAL HISTORY: Julieth Spencer is a 37 year old female with history of chronic non-alcoholic pancreatitis s/p multiple ERCP procedures. Palliative care is involved for assistance with pain management; she is a patient from my former practice at [facility]. Subjective Patient underwent pancreatectomy last month. After discharge, she was rapidly re-hospitalized due to extremely high blood sugar. She also shared that she believes she experienced a code during which Narcan was administered, though she has only hazy memories of what occurred at that time. At this point, she does have ongoing pain in her abdomen. She does get some relief from her PRN oxycodone, but feels it may be better once she is able to get the long-acting we have used in the past. We discussed that we will be weaning this in the future, but that it is reasonable to continue for now while she is in the recovery period after her surgery. She does have some nausea and vomiting, though this has been improved over the past couple of days. She does not feel that he PRN nausea regimen needs to change at present, but we did discuss that we can adjust it in future or add alternate agents if needed. REVIEW OF SYSTEMS: Modified ESAS (Fowler Symptom Assessment Scale) Information Provided By: Patient Pain: Moderate Nausea: Moderate Loss of Appetite: Mild Constipation: None Shortness of Breath: None Drowsiness: None Tiredness: None Depression: None Anxiety: None How you feel overall: Fair Objective PHYSICAL EXAMINATION: [facility] 01/11/2019 General appearance: alert, in no acute distress Head: atraumatic, symmetric Skin: Intact, no rash, no notable lesions Eyes: Anicteric sclera. Extraocular movements are intact. Oropharynx: MMM Respiratory: breathing non-labored and no grunting/flaring/retractions Chest: equal chest rise with normal respiratory effort Abdomen: Abdomen non-distended, surgical wounds appear to be clean and dry, no discharge noted Extremities: No clubbing or cyanosis. No edema. Musculoskeletal: No joint swelling or erythema. Neuro: alert and oriented x3 DATA: Diagnostic tests reviewed for today's visit: Most recent labs and imaging results. Creatinine Date Value Ref Range Status 06/09/2022 0.66 0.58 - 0.96 mg/dL Final CrCl cannot be calculated (Patient's most recent lab result is older than the maximum 180 days allowed.). Opioid Management: Yes Indication for Opioid Prescribing: Chronic, Non-cancer pain ORT-OUD Score: 0 A score of 3 or higher may indicate a higher risk for future development of aberrant drug related behavior or opioid use disorder. Informed consent for chronic opiate therapy obtained and written pain agreement: Will complete at next visit Naloxone offered?: Previously prescribed Course of treatment, patient's response and adherence to the prescribed treatment plan reviewed, including non-pharmacological and non-opioid treatment modalities? Yes Have any complications or exacerbations of the underlying condition causing the pain been reviewed? Yes How much does pain impede patient?s ability to engage in work or other purposeful activities, interfere with your activities of daily living, physical activity, or quality of your family life and social activities? Significantly Aberrancies in pain panel? No Any aberrant drug related behaviors since last visit? No Rationale for continuing opioid treatment: Improved comfort and function based on an ongoing functional assessment Benefits of Opioid Therapy outweigh risks: Yes Prescribed Morphine Equivalent Daily Dose (MEDD): Yes > 120MEDD Yes, I am certified in Hospice and Palliative Care, Hematology, Medical Oncology or Pain Medicine OARRS Checked: PDMP website checked and validated. All prescriptions have been APPROPRIATELY filled. No suspicious activity was identified. 11/08/2023 by Ramos Parekh MD Urine Screen No results found for: UAMPH , UBARB , UBARB2 , UBENZ , UQBUPRE , UQNORBUP , UCOC2 , UQCANN , UOPI , UOXYC , UPCP , UTHC , THC , UETOH Urine Panel: No results found for: UQCANN , UQBNZL , YET5TGB , UQAMPH , UQMAMP , UQBUPRE , UQNORB (more content not included)... [facility] 11-08-2023 History of Present illness Narrative PALLIATIVE MEDICINE AT HOME PROGRESS NOTE SERVICE DATE: November 08, 2023 IDENTIFICATION AND INTRODUCTION: Julieth Spencer is a 37 year old female This visit took place Virtually; I have communicated my name and active licensure. The patient's identity and physical location were verified at the time of this visit. The patient or their legal claims service representative has been informed of the risks and benefits of -- and alternatives to -- treatment through a remote evaluation and consents to proceed with the evaluation remotely. CHIEF COMPLAINT: Patient presents with: Follow Up PERTINENT MEDICAL HISTORY: Julieth Spencer is a 37 year old female with history of chronic non-alcoholic pancreatitis s/p multiple ERCP procedures. Palliative care is involved for assistance with pain management; she is a patient from my former practice at [facility]. Subjective Patient underwent pancreatectomy last month. After discharge, she was rapidly re-hospitalized due to extremely high blood sugar. She also shared that she believes she experienced a code during which Narcan was administered, though she has only hazy memories of what occurred at that time. At this point, she does have ongoing pain in her abdomen. She does get some relief from her PRN oxycodone, but feels it may be better once she is able to get the long-acting we have used in the past. We discussed that we will be weaning this in the future, but that it is reasonable to continue for now while she is in the recovery period after her surgery. She does have some nausea and vomiting, though this has been improved over the past couple of days. She does not feel that he PRN nausea regimen needs to change at present, but we did discuss that we can adjust it in future or add alternate agents if needed. REVIEW OF SYSTEMS: Modified ESAS (Fowler Symptom Assessment Scale) Information Provided By: Patient Pain: Moderate Nausea: Moderate Loss of Appetite: Mild Constipation: None Shortness of Breath: None Drowsiness: None Tiredness: None Depression: None Anxiety: None How you feel overall: Fair Objective PHYSICAL EXAMINATION: [facility] 01/11/2019 General appearance: alert, in no acute distress Head: atraumatic, symmetric Skin: Intact, no rash, no notable lesions Eyes: Anicteric sclera. Extraocular movements are intact. Oropharynx: MMM Respiratory: breathing non-labored and no grunting/flaring/retractions Chest: equal chest rise with normal respiratory effort Abdomen: Abdomen non-distended, surgical wounds appear to be clean and dry, no discharge noted Extremities: No clubbing or cyanosis. No edema. Musculoskeletal: No joint swelling or erythema. Neuro: alert and oriented x3 DATA: Diagnostic tests reviewed for today's visit: Most recent labs and imaging results. Creatinine Date Value Ref Range Status 06/09/2022 0.66 0.58 - 0.96 mg/dL Final CrCl cannot be calculated (Patient's most recent lab result is older than the maximum 180 days allowed.). Opioid Management: Yes Indication for Opioid Prescribing: Chronic, Non-cancer pain ORT-OUD Score: 0 A score of 3 or higher may indicate a higher risk for future development of aberrant drug related behavior or opioid use disorder. Informed consent for chronic opiate therapy obtained and written pain agreement: Will complete at next visit Naloxone offered?: Previously prescribed Course of treatment, patient's response and adherence to the prescribed treatment plan reviewed, including non-pharmacological and non-opioid treatment modalities? Yes Have any complications or exacerbations of the underlying condition causing the pain been reviewed? Yes How much does pain impede patient s ability to engage in work or other purposeful activities, interfere with your activities of daily living, physical activity, or quality of your family life and social activities? Significantly Aberrancies in pain panel? No Any aberrant drug related behaviors since last visit? No Rationale for continuing opioid treatment: Improved comfort and function based on an ongoing functional assessment Benefits of Opioid Therapy outweigh risks: Yes Prescribed Morphine Equivalent Daily Dose (MEDD): Yes > 120MEDD Yes, I am certified in Hospice and Palliative Care, Hematology, Medical Oncology or Pain Medicine OARRS Checked: PDMP website checked and validated. All prescriptions have been APPROPRIATELY filled. No suspicious activity was identified. 11/08/2023 by Ramos Parekh MD Urine Screen No results found for: UAMPH , UBARB , UBARB2 , UBENZ , UQBUPRE , UQNORBUP , UCOC2 , UQCANN , UOPI , UOXYC , UPCP , UTHC , THC , UETOH Urine Panel: No results found for: UQCANN , UQBNZL , WWE8WFH , UQAMPH , UQMAMP , UQBUPRE , UQNORBUP , UQMTHD , UQEDDP , UQTRAM , UQDTRM , UQFNTL , UQNFTL , UQCODE , UQMORP , UQDCDN , UQHCOD , UQOXYC , UQHMOR , UQOXYM , UQCREA , UQPH , UQSPGR , UQOXID , UQSPQ Assessment & Plan Julieth Spencer is a 37 year old female with history of chronic non-alcoholic pancreatitis s/p multiple ERCP procedures. Palliative care is involved for assistance with pain management; she is a patient from my former practice at [facility]. Chronic Pancreatitis Chronic Abdominal Pain Nausea and Vomiting Protein-Calorie Malnutrition - Patient with ongoing pain management issues - Current regimen was started while she was admitted at [facility] in June 2022 - She remains open to alternate pain management options, but has had trouble finding other pain management options in her area ([place]) - We have discussed options such as nerve blocks, non-invasive options (acupuncture, etc.), methadone, ketamine, etc. - We discussed that our group does not routinely manage pain unrelated to serious, life-limiting illness. - Given that I am her prior opiate prescriber, and given that no provider assumed long-term care of my clinic patients at , will continue to prescribe her hydromorphone ER 8 mg twice daily and oxycodone 15 mg every 4 hours PRN for the time being - From visit 08/02/2023: We had a discussion today regarding our departmental criteria for pain management, and that I would still recommend she establish with pain management for long-term pain management. That said, she asked that I continue to be her pain medication provider until she has the pancreatectomy procedure in September 2023. Given that this is in the very near future, I believe this is a reasonable approach. I advised her that, should she have residual pain after the procedure (and there is a reasonable chance that she will, though it will hopefully be diminished compared to her current pain level), that she will need to establish with an alternate pain management provider at that time. She is agreeable to this plan. - Patient now s/p pancreatectomy and having primarily post-operative pain - Will continue current regimen for now and start wean at next visit in 4 weeks; given that she is doing reasonably well without her long-acting at present, I am hopeful she will be able to wean well in the future. - Hopefully will be able to minimize or eliminate her opiate use in the coming weeks/months - Should she require ongoing opiate therapy, will help her to find an alternate provider Some elements copied from my note on 09/25/2023, the elements have been updated and all reflect current decision making from today, 11/08/2023. Next Visit: 4 Weeks in-person Palliative Medicine Nurse to do telephonic follow-up: No Ict Quality Assurance Engineer Services: None at this time Referral to Immigration Case Manager: No, not at this time Ramos Parekh MD November 08, 2023 3:05 PM I spent a total of 40 minutes on the date of the service which included preparing to see the patient, [id number] patient care, completing clinical documentation, counseling and educating the patient/family/caregiver, and care coordination (not separately reported). documented in this encounter [facility] 11-07-2023 Miscellaneous Notes Notified patient PA was started. Medication was denied and appeal was started. Patient has visit tomorrow to see Dr. Parekh. She said she is out of medication but is tolerating pain with oxycodone for now. Julieth is calling stating that she needs a prior authorization for her dilation. She uses [facility] . If you have any questions please call her back at [phone] documented in this encounter [facility] 11-06-2023 Miscellaneous Notes Prior Authorization Documentation Prior authorization requested for: MEDICATION dilaudid ER Submitted via Cover YellowSchedules/[place] Julieth Spencer ([place]: [id number]) - [id number] Authorization approval #: medication denied. Nurse call to [facility] and submitted an appeal. Ref# appeal [id number] Should get response by Saturday. PA approved Time Spent 45 Raffi Santiago RN November 06, 2023 documented in this encounter [facility] 11-06-2023 Hospital course Narrative Discharge Diagnosis DKA (diabetic ketoacidosis) ([facility]) Test Results Pending At Discharge Pending Labs Order Current Status Cholesterol, Body Fluid Collected (11/02/23 164) Review Testing- Fluid Source Collected (11/02/231643) Hospital Course 37 year-old lady with history of T1DM (now T3C), Crohn's disease, and chronic pancreatitis s/p total pancreatectomy, splenectomy, RNYGJ, and J-tube placement on 10/11. This was c/b chyle leak. She was started on octreotide (Sandostin LAR, administered 10/26), and underwent IR lymphagiography and sclerosis on 10/29, after which she was discharged on that day. She was on TF running overnight for 12 hours at 30 ml/hr and on regular diet during the day. Discharge insulin regimen: Tresiba 3 units Q24H, NPH 4 units QPM to be given at start of TF initiation and customized insulin sliding scale: (1 unit for every 50 above 200). She was readmitted to the hospital on 10/31 with nausea, some vomiting of gastric contents, and ongoing abdominal discomfort. Labs on admission showed DKA with elevated BG at >1000, HCO3 15 and calculated AG 27. She was admitted to the SICU for DKA management. Endocrine consulted, started on insulin gtt, and titrated to subcutaneous insulin. Database Programmer Analyst and tobacco prevention health educator consulted for education. Surgical drain removed. Discharged home on below regimen on 11/06. Insulin Regimen Tresiba: 4 units daily Lispro: per sliding scale 3x day Hypoglycemia protocol Call LIP unit(s) if Blood Glucose is between 0 - 70 mg/dL 0 unit(s) if Blood glucose is between 151-200 1 unit(s) if Blood glucose is between 201-250 2 unit(s) if Blood glucose is between 251-300 3 unit(s) if Blood glucose is between 301-350 4 unit(s) if Blood glucose is between 351-400 Notify provider unit(s) if Blood Glucose is greater than 400 mg/dL Pertinent Physical Exam At Time of Discharge Neurological: Awake, alert, conversive Respiratory/Thorax: even, unlabored Genitourinary: voiding Gastrointestinal: soft, NT, ND. Incision well approximated. Skin: warm, dry Musculoskeletal: WRAY Eyes: non-icteric Extremities: no edema Psychological: appropriate mood/affect BP 114/72 (BP Location: Right arm, Patient Position: Lying) Pulse 69 Temp 35.5 C (95.9 F) (Temporal) Resp 18 Ht 1.626 m (5' 4 ) Wt 48.2 kg (106 lb 4.2 oz) SpO2 97% BMI 18.24 kg/m Home Medications Medication List START taking these medications insulin degludec 100 unit/mL injection; Commonly known as: Tresiba; Inject 4 Units under the skin once daily. Take as directed per insulin instructions. scopolamine 1 mg over 3 days patch 3 day; Commonly known as: Transderm-Scop; Place 1 patch over 72 hours on the skin every 3rd day. CHANGE how you take these medications Creon 12,000-38,000 -60,000 unit capsule; Generic drug: pancrelipase ([id number]-Zflc); Take 2 cap(s) 3x day with meals; take 1 cap(s) 3x day with snacks as needed; What changed: Another medication with the same name was removed. Continue taking this medication, and follow the directions you see here. insulin lispro 100 unit/mL injection; Commonly known as: HumaLOG; Inject 0-0.05 mL (0-5 Units) under the skin 3 times a day with meals. Take as directed per insulin instructions.; What changed: how much to take, how to take this, when to take this, additional instructions CONTINUE taking these medications acetaminophen 325 mg tablet; Commonly known as: Tylenol atomoxetine 60 mg capsule; Commonly known as: Strattera cholecalciferol 25 MCG (1000 UT) tablet; Commonly known as: Vitamin D-3 citalopram 20 mg tablet; Commonly known as: CeleXA cloNIDine 0.1 mg tablet; Commonly known as: Catapres DULoxetine [address] capsule; Commonly known as: Cymbalta Easy Touch Alcohol Prep Pads pads, medicated; Generic drug: alcohol swabs; Apply 5 each topically once daily. Use prior to checking glucose or injecting insulin gabapentin 300 mg capsule; Commonly known as: Neurontin; Take 2 capsules (600 mg) by mouth 3 times a day. Humira(CF) Pen 40 mg/0.4 mL pen injector kit pen-injector; Generic drug: adalimumab loperamide 2 mg tablet; Commonly known as: Imodium A-D LORazepam 0.5 mg tablet; Commonly known as: Ativan; Take 1 tablet (0.5 mg) by mouth 4 times a day as needed for anxiety. mirtazapine 7.5 mg tablet; Commonly known as: Remeron; Take 1 tablet (7.5 mg) by mouth once daily at bedtime. nicotine 21 mg/24 hr patch; Commonly known as: Nicoderm CQ; Place 1 patch on the skin once every 24 hours. Do not start before October 15, 2023. OneTouch Delica Plus Lancet 30 gauge [facility]; Generic drug: lancets; Use to test blood sugar 3 times a day before meals. OneTouch Verio Flex meter [facility]; Generic drug: blood-glucose meter; Use to check glucose 3 times daily, before meals OneTouch Verio test strips strip; Generic drug: blood sugar diagnostic; Use to check glucose 3 times daily, before meals oxyCODONE 5 mg immediate release tablet; Commonly known as: Roxicodone; Take 2 tablets (10 mg) by mouth every 6 hours if needed for severe pain (7 - 10) for up to 7 days. pantoprazole 40 mg EC tablet; Commonly known as: ProtoNix promethazine 25 mg tablet; Commonly known as: Phenergan traZODone 100 mg tablet; Commonly known as: Desyrel TRUEplus Pen Needle 32 gauge x 5/32 needle; Generic drug: pen needle, diabetic; Use to inject insuln 5 times daily VITAMIN B-12 INJ Vraylar 1.5 mg capsule; Generic drug: cariprazine STOP taking these medications acyclovir 400 mg tablet; Commonly known as: Zovirax amoxicillin-pot clavulanate 875-125 mg tablet; Commonly known as: Augmentin Auvelity 45-105 mg tablet, IR and ER, biphasic; Generic drug: dextromethorphan-bupropion HumuLIN N NPH Insulin KwikPen 100 unit/mL (3 mL) injection; Generic drug: insulin NPH (Isophane) HYDROmorphone 8 mg tablet extended release 24 hr Lantus Solostar U-100 Insulin 100 unit/mL (3 mL) pen; Generic drug: insulin glargine Lantus U-100 Insulin 100 unit/mL injection; Generic drug: insulin glargine SandoSTATIN LAR [place] 20 mg injection; Generic drug: octreotide Outpatient Follow-Up Future Appointments Date Time Provider Department Center 11/12/2023 10:00 AM PHARMAC[facility] [id number] [facility] 11/14/2023 10:30 AM Tray Burk MD [id number] [facility] 01/29/2024 9:40 AM Jossie Edmondson MD [id number] Academic GENESIS Milian documented in this encounter [facility] Work Phone: 11-06-2023 Hospital Discharge instructions GENESIS Milian - 11/06/2023 10:12 AM EST Insulin Regimen Tresiba: 4 units daily Lispro: per sliding scale 3x day Hypoglycemia protocol Call LIP unit(s) if Blood Glucose is between 0 - 70 mg/dL 0 unit(s) if Blood glucose is between 151-200 1 unit(s) if Blood glucose is between 201-250 2 unit(s) if Blood glucose is between 251-300 3 unit(s) if Blood glucose is between 301-350 4 unit(s) if Blood glucose is between 351-400 Notify provider unit(s) if Blood Glucose is greater than 400 mg/dL documented in this encounter [facility] Work Phone: 11-06-2023 Nurse Note Diabetes Education Note Ms. Spencer is feeling well today. States DexCo G7 CGM placed yesterday is working well for her today. We reviewed SSI regimen and she is comfortable with this. States she is going home later today. Will sign off at this time. Time spent: 15 mins. Assumed care of patient. Patient laying in bed with eyes open on room air no signs of distress. Pt voiced concerns of pain. Pt reminded that pain medication just recently given. BSSR given on patient. Pt monitored throughout the shift. VVS with multiple complaints of pain. Pt team called by pt request to see pt bedside. No interventions ordered at this time. Pts bed remain low for safety. Safety checks completed and charted for patient. Call light and personals within reach. Will continue to monitor. FP resulted with glucose over 1000. POCT glucose over 600. Team notified and came to bedside. Collected VBG from midline. Team calling SICU to escalate care. Vascular Access Team Procedure Note Visit Date: 10/31/2023 Patient Name: Julieth Spencer Procedure: Midline 10/31/23 Single lumen Left Basilic vein (Active) 10/31/232229 Basilic vein Earliest Known Present: Placed by External Staff?: Hand Hygiene Completed: Yes Catheter Time Out Checklist Completed: Yes Size (Fr): 3 Lumen Type: Single lumen Description (optional): Catheter to Vein Ratio Less Than 50%: Yes Total Length (cm): 8 cm External Length (cm): 0 cm Orientation: Left Site Prep: Chlorhexidine ;Usual sterile procedure followed Local Anesthetic: Injectable Indication: Parenteral medications Insertion Team Members In The Room: Nurse Initial Extremity Circumference (cm): 22 cm Placed by: Brandt Serrano RN Insertion attempts: 1 Patient Tolerance: Fair Comfort Measures: Subcutaneous anesthetic Procedure Location: Bedside Safety Measures: Patient specific safety measures addressed with RN Estimated Blood Loss (mL): 1 mL Vessel Fully Compressible Proximally and Distally to Insertion Site: Yes Brisk Blood Return Obtained and Line Draws Easily: Yes Catheter Tip Location: Peripheral/midline (Left Axilla) Line Confirmation: Blood return;Non-pulsatile blood flow Lot #: [id number] Mobile Tester: [employer] Expiration Date: 08/15/24 Securement Method: Stat lock;Transparent dressing Number of Sutures Placed: 0 Post Procedure Checklist: Handoff with RN;Bed at lowest level and wheels locked;Obtain all new IV tubing prior to use Earliest Known Removed: Removal Reason : Removal Catheter Length (cm): Tip Intact: Site Prep Agent has Completely Dried Before Insertion: All 5 Sterile Barriers Used (Gloves, Gown, Cap, Mask, Large Sterile Drape): Placement Verification: Catheter Tip Cultured: Securement Method: Dressing Type Transparent;Antimicrobial patch 10/31/232258 Dressing Status Clean;Dry 10/31/232258 Brandt Serrano RN 10/31/2023 11:02 PM documented in this encounter [facility] Work Phone: 11-06-2023 Miscellaneous Notes The patient's goals for the shift include Pain management The clinical goals for the shift include Pain Management Over the shift, the patient did make progress toward the following goals. Problem: Pain Goal: Takes deep breaths with improved pain control throughout the shift Outcome: Progressing Goal: Turns in bed with improved pain control throughout the shift Outcome: Progressing Goal: Walks with improved pain control throughout the shift Outcome: Progressing Goal: Performs ADL's with improved pain control throughout shift Outcome: Progressing Goal: Participates in PT with improved pain control throughout the shift Outcome: Progressing Goal: Free from opioid side effects throughout the shift Outcome: Progressing Goal: Free from acute confusion related to pain meds throughout the shift Outcome: Progressing Problem: Pain Goal: Takes deep breaths with improved pain control throughout the shift Outcome: Progressing Goal: Turns in bed with improved pain control throughout the shift Outcome: Progressing Goal: Walks with improved pain control throughout the shift Outcome: Progressing Goal: Performs ADL's with improved pain control throughout shift Outcome: Progressing Goal: Participates in PT with improved pain control throughout the shift Outcome: Progressing Goal: Free from opioid side effects throughout the shift Outcome: Progressing Goal: Free from acute confusion related to pain meds throughout the shift Outcome: Progressing Problem: Pain Goal: My pain/discomfort is manageable Outcome: Progressing Problem: Safety Goal: Patient will be injury free during hospitalization Outcome: Progressing Goal: I will remain free of falls Outcome: Progressing Problem: Daily Care Goal: Daily care needs are met Outcome: Progressing Problem: Psychosocial Needs Goal: Demonstrates ability to cope with hospitalization/illness Outcome: Progressing Goal: Collaborate with me, my family, and caregiver to identify my specific goals Outcome: Progressing Problem: Discharge Barriers Goal: My discharge needs are met Outcome: Progressing Problem: Skin Goal: Decreased wound size/increased tissue granulation at next dressing change Outcome: Progressing Goal: Participates in plan/prevention/treatment measures Outcome: Progressing Goal: Prevent/manage excess moisture Outcome: Progressing Goal: Prevent/minimize sheer/friction injuries Outcome: Progressing Goal: Promote/optimize nutrition Outcome: Progressing Goal: Promote skin healing Outcome: Progressing Problem: Fall/Injury Goal: Not fall by end of shift Outcome: Progressing Goal: Be free from injury by end of the shift Outcome: Progressing Goal: Verbalize understanding of personal risk factors for fall in the hospital Outcome: Progressing Goal: Verbalize understanding of risk factor reduction measures to prevent injury from fall in the home Outcome: Progressing Goal: Use assistive devices by end of the shift Outcome: Progressing Goal: Pace activities to prevent fatigue by end of the shift Outcome: Progressing The patient's goals for the shift include Rest The clinical goals for the shift include manage pain < 7 Over the shift, the patient did not make progress toward the following goals. Problem: Pain Goal: Takes deep breaths with improved pain control throughout the shift Outcome: Progressing Goal: Turns in bed with improved pain control throughout the shift Outcome: Progressing Goal: Walks with improved pain control throughout the shift Outcome: Progressing Goal: Performs ADL's with improved pain control throughout shift Outcome: Progressing Goal: Participates in PT with improved pain control throughout the shift Outcome: Progressing Goal: Free from opioid side effects throughout the shift Outcome: Progressing Goal: Free from acute confusion related to pain meds throughout the shift Outcome: Progressing Problem: Pain Goal: My pain/discomfort is manageable Outcome: Progressing Problem: Safety Goal: Patient will be injury free during hospitalization Outcome: Progressing Goal: I will remain free of falls Outcome: Progressing Problem: Daily Care Goal: Daily care needs are met Outcome: Progressing Problem: Discharge Barriers Goal: My discharge needs are met Outcome: Progressing Problem: Skin Goal: Decreased wound size/increased tissue granulation at next dressing change Outcome: Progressing Goal: Participates in plan/prevention/treatment measures Outcome: Progressing Goal: Prevent/manage excess moisture Outcome: Progressing Goal: Prevent/minimize sheer/friction injuries Outcome: Progressing Goal: Promote/optimize nutrition Outcome: Progressing Goal: Promote skin healing Outcome: Progressing Problem: Fall/Injury Goal: Not fall by end of shift Outcome: Progressing Goal: Be free from injury by end of the shift Outcome: Progressing Goal: Verbalize understanding of personal risk factors for fall in the hospital Outcome: Progressing Goal: Verbalize understanding of risk factor reduction measures to prevent injury from fall in the home Outcome: Progressing Goal: Use assistive devices by end of the shift Outcome: Progressing Goal: Pace activities to prevent fatigue by end of the shift Outcome: Progressing The patient's goals for the shift include The clinical goals for the shift include Pain Management Problem: Pain Goal: Takes deep breaths with improved pain control throughout the shift Outcome: Progressing Goal: Turns in bed with improved pain control throughout the shift Outcome: Progressing Goal: Walks with improved pain control throughout the shift Outcome: Progressing Goal: Performs ADL's with improved pain control throughout shift Outcome: Progressing Goal: Participates in PT with improved pain control throughout the shift Outcome: Progressing Goal: Free from opioid side effects throughout the shift Outcome: Progressing Goal: Free from acute confusion related to pain meds throughout the shift Outcome: Progressing Problem: Pain Goal: My pain/discomfort is manageable Outcome: Progressing Problem: Safety Goal: Patient will be injury free during hospitalization Outcome: Progressing Goal: I will remain free of falls Outcome: Progressing Problem: Daily Care Goal: Daily care needs are met Outcome: Progressing Problem: Psychosocial Needs Goal: Demonstrates ability to cope with hospitalization/illness Outcome: Progressing Goal: Collaborate with me, my family, and caregiver to identify my specific goals Outcome: Progressing Problem: Discharge Barriers Goal: My discharge needs are met Outcome: Progressing Problem: Skin Goal: Decreased wound size/increased tissue granulation at next dressing change Outcome: Progressing Goal: Participates in plan/prevention/treatment measures Outcome: Progressing Goal: Prevent/manage excess moisture Outcome: Progressing Goal: Prevent/minimize sheer/friction injuries Outcome: Progressing Goal: Promote/optimize nutrition Outcome: Progressing Goal: Promote skin healing Outcome: Progressing Problem: Fall/Injury Goal: Not fall by end of shift Outcome: Progressing Goal: Be free from injury by end of the shift Outcome: Progressing Goal: Verbalize understanding of personal risk factors for fall in the hospital Outcome: Progressing Goal: Verbalize understanding of risk factor reduction measures to prevent injury from fall in the home Outcome: Progressing Goal: Use assistive devices by end of the shift Outcome: Progressing Goal: Pace activities to prevent fatigue by end of the shift Outcome: Progressing The patient's goals for the shift include Pain Management The clinical goals for the shift include patient will manage pain < 7 Over the shift, the patient did make progress toward the following goals. Problem: Pain Goal: Takes deep breaths with improved pain control throughout the shift Outcome: Progressing Goal: Turns in bed with improved pain control throughout the shift Outcome: Progressing Goal: Walks with improved pain control throughout the shift Outcome: Progressing Goal: Performs ADL's with improved pain control throughout shift Outcome: Progressing Goal: Participates in PT with improved pain control throughout the shift Outcome: Progressing Goal: Free from opioid side effects throughout the shift Outcome: Progressing Goal: Free from acute confusion related to pain meds throughout the shift Outcome: Progressing Problem: Pain Goal: Takes deep breaths with improved pain control throughout the shift 11/03/2023 1140 by Samy Mireles RN Outcome: Progressing 11/03/2023 1139 by Samy Mireles RN Outcome: Progressing Goal: Turns in bed with improved pain control throughout the shift 11/03/2023 1140 by Samy Mireles RN Outcome: Progressing 11/03/2023 1139 by Samy Mireles RN Outcome: Progressing Goal: Walks with improved pain control throughout the shift 11/03/2023 1140 by Samy Mireles RN Outcome: Progressing 11/03/2023 1139 by Samy Mireles RN Outcome: Progressing Goal: Performs ADL's with improved pain control throughout shift 11/03/2023 1140 by Samy Mireles RN Outcome: Progressing 11/03/2023 1139 by Samy Mireles RN Outcome: Progressing Goal: Participates in PT with improved pain control throughout the shift 11/03/2023 1140 by Samy Mireles RN Outcome: Progressing 11/03/2023 1139 by Samy Mireles RN Outcome: Progressing Goal: Free from opioid side effects throughout the shift 11/03/2023 1140 by Samy Mireles RN Outcome: Progressing 11/03/2023 1139 by Samy Mireles RN Outcome: Progressing Goal: Free from acute confusion related to pain meds throughout the shift 11/03/2023 1140 by Samy Mireles RN Outcome: Progressing 11/03/2023 1139 by Samy Mireles RN Outcome: Progressing Problem: Pain Goal: My pain/discomfort is manageable Outcome: Progressing Problem: Safety Goal: Patient will be injury free during hospitalization Outcome: Progressing Goal: I will remain free of falls Outcome: Progressing Problem: Daily Care Goal: Daily care needs are met Outcome: Progressing Problem: Psychosocial Needs Goal: Demonstrates ability to cope with hospitalization/illness Outcome: Progressing Goal: Collaborate with me, my family, and caregiver to identify my specific goals Outcome: Progressing Problem: Discharge Barriers Goal: My discharge needs are met Outcome: Progressing Problem: Skin Goal: Decreased wound size/increased tissue granulation at next dressing change Outcome: Progressing Goal: Participates in plan/prevention/treatment measures Outcome: Progressing Goal: Prevent/manage excess moisture Outcome: Progressing Goal: Prevent/minimize sheer/friction injuries Outcome: Progressing Goal: Promote/optimize nutrition Outcome: Progressing Goal: Promote skin healing Outcome: Progressing Problem: Fall/Injury Goal: Not fall by end of shift Outcome: Progressing Goal: Be free from injury by end of the shift Outcome: Progressing Goal: Verbalize understanding of personal risk factors for fall in the hospital Outcome: Progressing Goal: Verbalize understanding of risk factor reduction measures to prevent injury from fall in the home Outcome: Progressing Goal: Use assistive devices by end of the shift Outcome: Progressing Goal: Pace activities to prevent fatigue by end of the shift Outcome: Progressing The patient's goals for the shift include The clinical goals for the shift include pain management Problem: Pain Goal: Takes deep breaths with improved pain control throughout the shift Outcome: Progressing Goal: Turns in bed with improved pain control throughout the shift Outcome: Progressing Goal: Walks with improved pain control throughout the shift Outcome: Progressing Goal: Performs ADL's with improved pain control throughout shift Outcome: Progressing Goal: Participates in PT with improved pain control throughout the shift Outcome: Progressing Goal: Free from opioid side effects throughout the shift Outcome: Progressing Goal: Free from acute confusion related to pain meds throughout the shift Outcome: Progressing SURGICAL ONCOLOGY OVERNIGHT EVENTS Upon admission, pt fatigued, thirsty, and complaining of nausea and vomiting. Difficult IV placement but eventually midline was placed. Labs demonstrated BG >1000. Repeat POCT x2 >600. Found to have an anion gap 34, mild hyponatremia, with mild hyperkalemia, confirming suspicion for DKA. Started NS 250 and initiated insulin infusion. Received 10 u insulin IV bolus. Alerted SICU who accepted patient and brought her down for correction of acidosis, anion gap, and electrolyte derangements, and for ongoing insulin infusion adjustments. Also had a CT A/P on admission which did not reveal any acute intra-abdominal pathology. - SICU care - insulin infusion, titrate up - q 30-60 min glucose checks - IV hydration: 2L bolus followed by maintenance rate - IV access x2 - f/u blood culture x2, UA with reflex UCx - will reengage Endocrinology for reevaluation of insulin regimen Wilian Mcgregor MD General Surgery PGY4 Surgical Oncology - [facility] [id number] Overnight Coverage Update 0500 - anion gap resolved - BG down from 1100 to 620 - acidosis resolved - hyponatremia resolving - IVF ongoing, bolused 2L - endocrinology aware Wilian Mcgregor MD General Surgery PGY4 documented in this encounter [facility] Work Phone: 11-05-2023 Consult note Formatting of th is note is different from the original. Inpatient Diabetes Education Consult Reason for Visit: Julieth Spencer is a 37 y.o. female who presents for DKA Consulting Service/Provider: Dr. 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 Every Other Week On Sundays alcohol swabs pads, medicated 5 each, topical (top), Daily, Use prior to checking glucose or injecting insulin amoxicillin-pot clavulanate (Augmentin) 875-125 mg tablet 1 tablet, oral, Every 12 hours scheduled atomoxetine (STRATTERA) 60 mg, oral, Daily Auvelity 45-105 mg tablet, IR and ER, biphasic 1 tablet, oral, Daily blood sugar diagnostic (Blood Glucose Test) strip Use to check glucose 3 times daily, before meals blood-glucose meter misc Use to check glucose 3 times daily, before meals cholecalciferol (Vitamin D-3) 25 MCG (1000 UT) tablet 1 tablet, oral, Daily citalopram (CELEXA) 20 mg, oral, Every morning cloNIDine (CATAPRES) 0.1 mg, oral, Nightly cyanocobalamin, vitamin B-12, (VITAMIN B-12 INJ) injection DULoxetine (CYMBALTA) 60 mg, oral, Daily before breakfast gabapentin (NEURONTIN) 600 mg, oral, 3 times daily HYDROmorphone 8 mg tablet extended release 24 hr 1 tablet, oral, 2 times daily PRN insulin glargine (Lantus Solostar U-100 Insulin) 100 unit/mL (3 mL) pen Inject 3 Units under the skin once daily in the morning. Take as directed per insulin instructions. insulin lispro (Admelog SoloStar U-100 Insulin) 100 unit/mL injection inject subcutaneous per sliding scale three times daily. Max dose/day 10 units. insulin NPH, Isophane, (HumuLIN N NPH Insulin KwikPen) 100 unit/mL (3 mL) injection Inject 4 units under the skin once daily every morning with steroid. Remove pen from fridge prior to first use and store at room temperature, do not place back in fridge. Discard after 14 days. lancets 30 gauge [facility] [place] Use to test blood sugar 3 times a day before meals. Lantus U-100 Insulin 20 Units, subcutaneous, Every 24 hours, Take as directed per insulin instructions. loperamide (Imodium A-D) 2 mg tablet Take 2 tablets by mouth initially, followed by 1 tablet after each loose bowel movement if needed. Do not exceed 8 tablets daily LORazepam (ATIVAN) 0.5 mg, oral, 4 times daily PRN mirtazapine (REMERON) 7.5 mg, oral, Nightly nicotine (Nicoderm CQ) 21 mg/24 hr patch 1 patch, transdermal, Every 24 hours oxyCODONE (ROXICODONE) 10 mg, oral, Every 6 hours PRN pancrelipase, [id number]-[id number]-Qnip, (Creon) 12,000-38,000 -60,000 unit capsule Take 2 cap(s) 3x day with meals; take 1 cap(s) 3x day with snacks as needed pancrelipase, Rgi-Biof-Cslr, (Creon) 36,000-114,000- 180,000 unit capsule,delayed release(DR/EC) capsule 2 capsules, oral, 2 times daily with meals pancrelipase, [id number]-Fgov-Tugc, (Creon) 36,000-114,000- 180,000 unit capsule,delayed release(DR/EC) capsule 2 capsules, oral, 3 times daily after meals and nightly pancrelipase, [id number]-Rbsa-Evjx, (Creon) 36,000-114,000- 180,000 unit capsule,delayed release(DR/EC) capsule 1 capsule, oral, As needed pantoprazole (PROTONIX) 40 mg, oral, Daily before breakfast pen needle, diabetic 32 gauge x 5/32 needle Use to inject insuln 5 times daily promethazine (PHENERGAN) 25 mg, oral, Every 6 hours PRN SandoSTATIN LAR [place] 20 mg, intramuscular, Every 28 days traZODone (DESYREL) 200 mg, oral, Nightly Vraylar 1.5 mg, oral, Daily Glucose Date/Time Value Ref Range Status 11/05/2023 05:19 AM 247 (H) 74 - 99 mg/dL Final 11/04/2023 04:43 AM 168 (H) 74 - 99 mg/dL Final 11/03/2023 04:18 AM 126 (H) 74 - 99 mg/dL Final 11/02/2023 04:28 AM 196 (H) 74 - 99 mg/dL Final 11/01/2023 09:11 PM 190 (H) 74 - 99 mg/dL Final 11/01/2023 04:05 PM 319 (H) 74 - 99 mg/dL Final 11/01/2023 12:45 PM 91 74 - 99 mg/dL Final 11/01/2023 09:20 AM 120 (H) 74 - 99 mg/dL Final 11/01/2023 04:38 AM 622 (HH) 74 - 99 mg/dL Final 11/01/2023 02:38 AM 1,079 (HH) 74 - 99 mg/dL Final No results found for: CPEPTIDE Hemoglobin A1C Date Value Ref Range Status 09/25/2023 5.5 See below % Final 09/27/2022 5.5 % Final Comment: Diagnosis of Diabetes-Adults Non-Diabetic: < or = 5.6% Increased risk for developing diabetes: 5.7-6.4% Diagnostic of diabetes: > or = 6.5% . Monitoring of Diabetes Age (y) Therapeutic Goal (%) Adults: >18 <7.0 Pediatrics: 13-18 <7.5 7-12 <8.0 0- 6 7.5-8.5 [place] [employer]. Diabetes Care 33(S1), Sep 2009. 11/05/2019 7.3 % Final Comment: Diagnosis of Diabetes-Adults Non-Diabetic: < or = 5.6% Increased risk for developing diabetes: 5.7-6.4% Diagnostic of diabetes: > or = 6.5% . Monitoring of Diabetes Age (y) Therapeutic Goal (%) Adults: >18 <7.0 Pediatrics: 13-18 <7.5 7-12 <8.0 0- 6 7.5-8.5 [place]. Diabetes Care 33(S1), Sep 2009. Patient Learning/Readiness Assessment: Ms. Spencer is agreeable to diabetes education visit. Interventions/Topics Covered: See After Visit Summary for handouts/information sheets provided to patient. Education Documentation No documentation found. Additional topics covered: She needs more CGM supplies. Provided with G7 with her phone zoë. She is able to self administer insulin via pen. She is aware of her new regimen of increased Tresiba and SSI. She is not doing TF at night t this time. She is aware carlos if TF needs to resume she will need NPH insulin at start of TF. She has [place] with [place] [facility] but in the mean time will follow with provider closer to her home. Additional materials provided: G7 information CGM placed at time of discharge Education Outcome/Recommendations: Recommendations for bedside nursing: Allow patient to self-inject insulin (supervised) Recommendations for Providers: Follow-up w/ PCP and/or Endocrinology Additional Comments: Ms. Spencer is also requesting an insulin pump (lost her previous one). Explained to her that this is something done in an outpatient visit with education relating to the pump. She verbalizes understanding. She assisted and placed the G7 CGM today. She anticipates discharge to home tomorrow. Time Spent: 25 mins. Nutrition Diet Education Provider consult order (education for diabetes) Education Documentation Diabetes, taught by Vicki Alfaro RDN, LD at 11/04/2023 1:31 PM. Learner: Patient Readiness: Acceptance Method: Explanation Response: Needs Reinforcement Met with patient this morning. Pt reports that she has been struggling with dosing insulin and is unsure what she does to dose her insulin. Pt reports that she recently lost her pump and would like to get a new one. Discussed with patient the myplate theory and provided a handout. Pt reports that her diet usually consists of a lot of fruit and fruit juice. Discussed that this can cause her BG to spike and therefore to try to limit intake and/or pair with a protein. Pt reports that she would like additional education specifically insulin based and pump based. Discussed involving the clinical trial educator. Recommend consulting the clinical trial educator Follow Up: Time Spent (min): 90 minutes Last Date of Nutrition Visit: 11/04/23 Nutrition Follow-Up Needed?: Dietitian to reassess per policy Follow up Comment: education, Last RDN note 10/01 Associated Order(s): PHARMACY TO DOSE VANCO Vancomycin Dosing by Pharmacy- Cessation of Therapy Consult to pharmacy for vancomycin dosing has been discontinued by the prescriber, pharmacy will sign off at this time. Please call pharmacy if there are further questions or re-enter a consult if vancomycin is resumed. Vicky Rios PharmD Consults Reason For Consult Chronic opioid use. Recommendations for in patient regimen/home going regimen History Of Present Illness Julieth Spencer is a 37 y.o. female presenting with abdominal pain. Pt admitted with dehydration and subsequent DKA. CT A/P on admission reveals no acute abdominal issues. PMH includes T1DM, Crohn's disease (on Humira), and chronic pancreatitis s/ total pancreatectomy, splenectomy, RNYGJ, and J-tube placement on 10/11. Pt endorses diffuse abdominal pain, +nausea, -vomiting, +diarrhea. Home pain medications include dilaudid and oxycodone from prescribing physician at [facility]. Currently pt. reports being adequately comfortable on current pain medication regimen. Past Medical History She has a past medical history of Anxiety, Chronic pancreatitis (CMS/HCC), Crohn's disease (CMS/HCC), Depression, Diabetes mellitus (CMS/HCC), GERD (gastroesophageal reflux disease), and Menorrhagia with irregular cycle. Surgical History She has a past surgical history that includes Other surgical history (06/29/2021); Other surgical history (06/29/2021); Other surgical history (06/29/2021); Other surgical history (06/29/2021); Other surgical history (06/29/2021); Cholecystectomy; Colonoscopy; and Carpal tunnel release. Social History She reports that she quit smoking about 4 months ago. Her smoking use included cigarettes. She has never used smokeless tobacco. She reports current drug use. Drug: Marijuana. She reports that she does not drink alcohol. Family History Family History Problem Relation Name Age of Onset Depression Mother Blood clot Mother Depression Father Allergies Morphine and Sulfamethoxazole-trimethoprim ROS otherwise negative aside from what was mentioned above in HPI. Physical Exam Constitutional: Alert and oriented x 3, no acute distress Head and Face: Head is normocephalic and non traumatic. No facial abnormalities, asymmetry, or rashes. Neck: Supple and symmetric. Full ROM. Respiratory: Good chest expansion. No wheezes or crackles. No gasping or SOB. No use of accessory muscles. Cardiovascular: Normal S1 & S2, Pulses regular. Abdomen: +TTP Musculoskeletal: Intact ROM. Neurologic: Cranial nerves II-XII intact. Intact senses and motor response. Psychiatric: Alert and oriented x3. Mood and affect are normal. Recent/remote memory as evidenced through [id number] interaction and discussion appear grossly intact. Skin: Warm and dry, no lesions, no rashes on visible skin Last Recorded Vitals BP 115/85 Pulse 75 Temp 36.5 C (97.7 F) (Temporal) Resp 13 Wt 48.2 kg (106 lb 4.2 oz) SpO2 96% Relevant Results Reviewed Assessment/Plan Julieth Spencer is a 37 y.o. female presenting with abdominal pain. Pt admitted with dehydration and subsequent DKA. CT A/P on admission reveals no acute abdominal issues. PMH includes T1DM, Crohn's disease (on Humira), and chronic pancreatitis s/ total pancreatectomy, splenectomy, RNYGJ, and J-tube placement on 10/11. Pt endorses diffuse abdominal pain, +nausea, -vomiting, +diarrhea. Home pain medications include dilaudid and oxycodone from prescribing physician at [facility]. Currently pt. reports being adequately comfortable on current pain medication regimen. Recommendations: Continue current pain medication regimen. Pt. Able to tolerate PO. If pt. NPO, may incorporate IV GROUP SOCIAL WORKER/IV prn pain medication. Continue gabapentin, acetaminophen, oxycodone Continue home medications on discharge. Advised pt. To follow up with opiate prescribing physician. Ramandeep Malcolm APRN-[employer] Associated Order(s): IP CONSULT TO NUTRITION SERVICES Nutrition Initial Assessment: Nutrition Assessment Reason for Assessment: Provider consult order Patient is a 37 y.o. female presenting with T1DM, Crohn's disease (on Humira), and chronic pancreatitis s/ total pancreatectomy, splenectomy, RNYGJ, and J-tube placement on 10/[address] Burk - course c/b chyle leak. Pt presented back to [facility] on 10/31 with nausea and ongoing abdominal discomfort since discharge. On 11/01 AM, shortly after admission, pt was found to have BG >1000 and admitted to SICU with DKA. Nutrition History: Energy Intake: Poor < 50 % Food and Nutrient History: Pt stated no to almost every question asked. Denies viatmin/mineral supplements, doesn't know the last time she had any nutrition. She said yes when asked about weight loss but is unsure of amount and unsure of UBW. Pt recently had J tube placed and had chyle leak during recent admission, and was initially started on Vivinex RTF. Pt then transitioned to TPN. She was also on a PO diet. She was educated on low fiber/residue diet by RD on 10/25/23 Food Allergies/Intolerances: None GI Symptoms: Diarrhea and Abdominal pain Oral Problems: None Anthropometrics: Height: 162.6 cm (5' 4 ) Weight: 48.2 kg (106 lb 4.2 oz) BMI (Calculated): 18.23 IBW/kg (Dietitian Calculated): 54.5 kg Percent of IBW: 89 % Weight History: Wt Readings from Last 10 Encounters: 11/01/23 48.2 kg (106 lb 4.2 oz) 10/23/23 55 kg (121 lb 4.1 oz) 09/20/23 51.8 kg (114 lb 3.2 oz) 08/19/23 52.4 kg (115 lb 8.3 oz) 07/22/23 53.9 kg (118 lb 13.3 oz) 09/27/22 49.9 kg (110 lb) 03/12/22 47.9 kg (105 lb 9.6 oz) 02/23/22 48.7 kg (107 lb 5.8 oz) 12/21/21 49.9 kg (110 lb) 06/29/21 55.7 kg (122 lb 12.8 oz) Weight Change %: Weight History / % Weight Change: 6.8kg loss in 1 week per weight history however ? accuracy Nutrition Focused Physical Exam Findings: Subcutaneous Fat Loss: Orbital Fat Pads: Mild-Moderate (slight dark circles and slight hollowing) Buccal Fat Pads: Mild-Moderate (flat cheeks, minimal bounce) Muscle Wasting: Temporalis: Mild-Moderate (slight depression) Pectoralis (Clavicular Region): Mild-Moderate (some protrusion of clavicle) Quadriceps: Mild-moderate (mild depression on inner and outer thigh) Gastrocnemius: Mild-Moderate (not well developed muscle) Edema: Edema: none Physical Findings: Mouth: Positive (dry cracked lips) Skin: Negative Nutrition Significant Labs: CBC Trend: Results from last 7 days Lab Units 11/01/23 0238 10/31/23 2249 10/29/23 0523 10/28/23 0057 WBC AUTO x10*3/uL 19.1* 9.6 11.4* 21.7* RBC AUTO x10*6/uL 3.14* 3.28* 3.00* 2.79* HEMOGLOBIN g/dL 9.3* 9.7* 9.0* 8.7* HEMATOCRIT % 30.4* 29.4* 27.0* 25.5* MCV fL 97 90 90 91 PLATELETS AUTO x10*3/uL 1,455* 1,497* 1,385* 1,189* , BMP Trend: Results from last 7 days Lab Units 11/01/23 0920 11/01/23 0438 11/01/23 0238 10/31/23 2249 GLUCOSE mg/dL 120* 622* 1,079* 1,161* CALCIUM mg/dL 8.9 8.9 8.8 8.9 SODIUM mmol/L 135* 127* 122* 121* POTASSIUM mmol/L 4.9 4.5 5.3 6.5* CO2 mmol/L 31 23 15* 15* CHLORIDE mmol/L 96* 87* 81* 79* BUN mg/dL 12 11 9 6 CREATININE mg/dL 0.80 1.02 1.18* 1.04 , Renal Lab Trend: Results from last 7 days Lab Units 11/01/23 0920 11/01/23 0438 11/01/23 0238 10/31/23 2249 POTASSIUM mmol/L 4.9 4.5 5.3 6.5* PHOSPHORUS mg/dL 2.5 3.7 4.5 5.1* SODIUM mmol/L 135* 127* 122* 121* MAGNESIUM mg/dL -- -- 2.05 2.11 EGFR mL/min/1.73m*2 >90 74 62 72 BUN mg/dL 12 11 9 6 CREATININE mg/dL 0.80 1.02 1.18* 1.04 Nutrition Specific Medications: Scheduled medications cloNIDine, 0.1 mg, oral, Nightly DULoxetine, 60 mg, oral, Daily before breakfast enoxaparin, 40 mg, subcutaneous, q24h fluconazole, 400 mg, intravenous, q24h gabapentin, 600 mg, oral, TID insulin degludec, 3 Units, subcutaneous, q24h methocarbamol, 500 mg, oral, q6h HERNANDEZ mirtazapine, 7.5 mg, oral, Nightly [Held by provider] pancrelipase (Rue-Zioy-Mzqb), 2 capsule, oral, TID with meals pantoprazole, 40 mg, oral, Daily before breakfast piperacillin-tazobactam, 3.375 g, intravenous, q6h Continuous medications dextrose 5%-0.45 % sodium chloride, 250 mL/hr, Last Rate: 250 mL/hr (11/01/23 0936) insulin regular, 0-50 Units/hr, Last Rate: 2 Units/hr (11/01/23 0930) sodium chloride, 250 mL/hr PRN medications PRN medications: acetaminophen, calcium gluconate, calcium gluconate, dextrose 10 % in water (D10W), dextrose, diphenhydrAMINE, glucagon, insulin regular, LORazepam, magnesium sulfate, oxyCODONE, oxyCODONE, vancomycin I/O: I/O last 3 completed shifts: In: 2195.7 (45.6 mL/kg) [I.V.:995.7 (20.7 mL/kg); IV Piggyback:1200] Out: 305 (6.3 mL/kg) [Urine:300 (0.2 mL/kg/hr); Drains:5] Weight: 48.2 kg I/O this shift: In: 1744.4 [P.O.:120; I.V.:374.4; IV Piggyback:1250] Out: 405 [Urine:400; Drains:5] Dietary Orders (From admission, onward) Start Ordered 11/01/23 1053 Adult diet Clear Liquid Diet effective now Comments: Sugar free Question: Diet type Answer: Clear Liquid 11/01/23 1053 Estimated Needs: Total Energy Estimated Needs (kCal): 1205 kCal Method for Estimating Needs: 25kcal/kg (start lower d/t refeeding risk) Total Protein Estimated Needs (g): 63 g Method for Estimating Needs: 1.3g/kg ABW + Total Fluid Estimated Needs (mL): (per MD/ team) Method for Estimating Needs: per MD/ team Nutrition Diagnosis Malnutrition Diagnosis Patient has Malnutrition Diagnosis: Yes Diagnosis Status: New Malnutrition Diagnosis: Severe malnutrition related to acute disease or injury As Evidenced by: mild-moderate subcutanous fat loss + muscle wasting, without nutrition for > 5 days Nutrition Interventions/Recommendations Refeeding precautions recommended Nutrition Prescription: Recommend 100mg thiamine d/t prolonged period without intake Monitor RFP + Mg Q24- replete per protocol Would start TF if/when medically feasible Vital AF 1.2 @ 40ml/hr goal Start @ 10ml/hr and increase by [id number] until goal is met FWF per MD If unable to start TF for supplemental nutrition, would recommend PPN Continue CL sugar free diet as tolerated Nutrition Interventions: Interventions: Meals and snacks, Enteral intake Goal: tolerate PO diet Enteral Intake: Other (Comment) Goal: start TF, tolerate goal Additional Interventions: TF @ 40ml/hr =1152kcal, 72gm protein, 107gm carbohydrate, and 779ml free water Nutrition Monitoring and Evaluation Food/Nutrient Related History Monitoring Monitoring and Evaluation Plan: Energy intake Criteria: meet > 75% estimated energy needs Body Composition/Growth/Weight History Monitoring and Evaluation Plan: Weight, Weight change Criteria: maintain stable weight; promote weight confucianism Biochemical Data, Medical Tests and Procedures Monitoring and Evaluation Plan: Electrolyte/renal panel, Glucose/endocrine profile Criteria: labs WNL Time Spent/Follow-up Reminder: Time Spent (min): 60 minutes Last Date of Nutrition Visit: 11/01/23 Nutrition Follow-Up Needed?: Dietitian to reassess per policy Follow up Comment: TF recs via J tube Associated Order(s): Inpatient consult to Endocrinology Inpatient consult to Endocrinology Consult performed by: Sandro Drake MD Consult ordered by: Tray Burk MD Reason For Consult DKA History Of Present Illness Julieth Spencer is a 37 year-old lady with history of T1DM (now T3C), Crohn's disease, and chronic pancreatitis s/ total pancreatectomy, splenectomy, RNYGJ, and J-tube placement on 10/11. This was c/b chyle leak. She was started on octreotide (Sandostin LAR, administered 10/26), and went IR lymphagiography and sclerosis on 10/29, after which she was discharged on that day. She was on TF running overnight for 12 hours at 30 ml/hr and on regular diet during the day. Discharge insulin regimen: Tresiba 3 units Q24H, NPH 4 units QPM to be given at start of TF initiation and customized insulin sliding scale: (1 unit for every 50 above 200). She represented to the hospital on 10/31 with nausea, some vomiting of gastric contents, and ongoing abdominal discomfort. She reported that since discharge she remained fatigued and without appetite and reported that her JACQUELINE drain continued to put out chyle. Labs on admission showed DKA with elevated BG at >1000, HCO3 15 and calculated AG 27. She was admitted to the SICU for DKA management. Endocrine is consulted to assist in management. Diabetes History: -Diagnosed with diabetes at the age of 30-31, she was told at the time that she had positive antibodies. Patient followed with an labor economics professor in [facility] -Previously being on Tandem Pump + Dexcom in Control IQ at home, however she misplaced her pump few months ago and has been on MDI with accuchecks since then. -Most recent HbA1C 5.5% (09/25/23) -Patient has no known complications from diabetes -Home regimen prior to her pancreatectomy: Insulin glargine 5 units daily + insulin lispro sliding scale with meals (reports max dose of 3 units with meals) -Home regimen on discharge 10/29: Tresiba 3 units Q24H, NPH 4 units QPM to be given at start of TF initiation and customized insulin sliding scale: (1 unit for every 50 above 200). -Patient was discharged with pharmacy [place] follow-up as well is follow-up with Dr. Edmondson scheduled for January 2024. At the time of evaluation, patient reported that she has felt ill since discharge with progressive nausea, vomiting, and abdominal pain. She does not recall taking her insulin. She continues to complain of pain, and nausea after resolution of DKA. Results from Most Recent A1C Hemoglobin A1C Date/Time Value Ref Range Status 09/25/2023 02:34 PM 5.5 See below % Final Past Medical History She has a past medical history of Anxiety, Chronic pancreatitis (CMS/HCC), Crohn's disease (CMS/HCC), Depression, Diabetes mellitus (CMS/HCC), GERD (gastroesophageal reflux disease), and Menorrhagia with irregular cycle. Surgical History She has a past surgical history that includes Other surgical history (06/29/2021); Other surgical history (06/29/2021); Other surgical history (06/29/2021); Other surgical history (06/29/2021); Other surgical history (06/29/2021); Cholecystectomy; Colonoscopy; and Carpal tunnel release. Social History She reports that she quit smoking about 4 months ago. Her smoking use included cigarettes. She has never used smokeless tobacco. She reports current drug use. Drug: Marijuana. She reports that she does not drink alcohol. Family History Family History Problem Relation Name Age of Onset Depression Mother Blood clot Mother Depression Father Allergies Morphine and Sulfamethoxazole-trimethoprim Constitutional: Ill-appearing young female, no distress, thin built, awake/alert/oriented x3, alert and cooperative Eyes: EOMI, clear sclera Head/Neck: Neck supple, no apparent injury Respiratory/Thorax: No increased work of breathing Cardiovascular: Normal heart rate Gastrointestinal: Nondistended Musculoskeletal: ROM intact, normal strength Extremities: normal extremities, no edema Neurological: alert and oriented x3, CN's grossly intact, normal strength Psychological: Appropriate mood and behavior Last Recorded Vitals Blood pressure (!) 121/91, pulse 70, temperature 37 C (98.6 F), temperature source Temporal, resp. rate 17, height 1.626 m (5' 4 ), weight 48.2 kg (106 lb 4.2 oz), SpO2 100 %. Lab Results Component Value Date POCGLU 282 (H) 11/01/2023 POCGLU 310 (H) 11/01/2023 POCGLU 193 (H) 11/01/2023 POCGLU 158 (H) 11/01/2023 POCGLU 137 (H) 11/01/2023 GLUCOSE 319 (H) 11/01/2023 GLUCOSE 91 11/01/2023 GLUCOSE 120 (H) 11/01/2023 GLUCOSE 622 (HH) 11/01/2023 GLUCOSE 1,079 (HH) 11/01/2023 Results from last 7 days Lab Units 11/01/23 1605 11/01/23 1245 11/01/23 0920 11/01/23 0238 10/31/23 2249 10/29/23 0523 10/28/23 0057 SODIUM mmol/L 129* 135* 135* < > 121* 134* 135* POTASSIUM mmol/L 5.4* 4.4 4.9 < > 6.5* 5.5* 4.9 CHLORIDE mmol/L 93* 96* 96* < > 79* 101 100 CO2 mmol/L 29 32 31 < > 15* 29 28 BUN mg/dL 11 11 12 < > 6 8 7 CREATININE mg/dL 0.74 0.78 0.80 < > 1.04 0.69 0.64 CALCIUM mg/dL 8.0* 8.4* 8.9 < > 8.9 8.0* 7.8* PROTEIN TOTAL g/dL -- -- -- -- 6.6 5.9* 5.5* BILIRUBIN TOTAL mg/dL -- -- -- -- 0.2 0.1 0.1 ALK PHOS U/L -- -- -- -- 123* 109 110 ALT U/L -- -- -- -- 12 6* 6* AST U/L -- -- -- -- 18 10 9 GLUCOSE mg/dL 319* 91 120* < > 1,161* 240* 162* < > = values in this interval not displayed. Assessment/Plan Principal Problem: Lul Spencer is a 37 year-old lady with history of T1DM (now T3C), Crohn's disease, and chronic pancreatitis s/ total pancreatectomy, splenectomy, RNYGJ, and J-tube placement on 10/11. This was c/b chyle leak. She was started on octreotide (Sandostin LAR, administered 10/26), and went IR lymphagiography and sclerosis on 10/29, after which she was discharged on that day. She was on TF running overnight for 12 hours at 30 ml/hr and on regular diet during the day. Discharge insulin regimen: Tresiba 3 units Q24H, NPH 4 units QPM to be given at start of TF initiation and customized insulin sliding scale: (1 unit for every 50 above 200). She represented to the hospital on 10/31 with nausea, some vomiting of gastric contents, and ongoing abdominal discomfort. She reported that since discharge she remained fatigued and without appetite and reported that her JACQUELINE drain continued to put out chyle. Labs on admission showed DKA with elevated BG at >1000, HCO3 15 and calculated AG 27. She was admitted to the SICU for DKA management. Endocrine is consulted to assist in management. Diabetes History: -Diagnosed with diabetes at the age of 30-31, she was told at the time that she had positive antibodies. Patient followed with an labor economics professor in [facility] -Previously being on Tandem Pump + Dexcom in Control IQ at home, however she misplaced her pump few months ago and has been on MDI with accuchecks since then. -Most recent HbA1C 5.5% (09/25/23) -Patient has no known complications from diabetes -Home regimen prior to her pancreatectomy: Insulin glargine 5 units daily + insulin lispro sliding scale with meals (reports max dose of 3 units with meals) -Home regimen on discharge 10/29: Tresiba 3 units Q24H, NPH 4 units QPM to be given at start of TF initiation and customized insulin sliding scale: (1 unit for every 50 above 200). -Patient was discharged with pharmacy [place] follow-up as well is follow-up with Dr. Edmondson scheduled for January 2024. Of note, patient reported that she has felt ill since discharge with progressive nausea, vomiting, and abdominal pain. Patient states that she had an insulin at home, and was checking her blood sugar however she could not provide specific readings of her blood sugar at home and she does not recall taking her insulin. She continues to complain of pain, and nausea after resolution of DKA. Type IIIc diabetes p/w DKA uncontrolled pain and missed insulin: Presented with progressive nausea, and vomiting. She does NOT recall taking her insulin at home as she was very ill. *Patient has no insulin production whatsoever, therefore long-acting insulin (tresiba) should not be held for any reason otherwise patient is at risk for DKA* -Goal BG 140-180 -Tresiba 3 units Q24H -#1 sliding scale every 4 hours -Accuchecks Q4H -Hypoglycemia protocol -Diabetic diet if able Plan was communicated to the primary team Sandro Drake MD Endocrinology, PGY 4 Pager [phone] or secure chat Case seen, examined, and discussed with Dr. Torres Associated attestation - Jose Torres MD - 11/03/2023 3:37 PM EST I saw and evaluated the patient. I personally obtained the blount and critical portions of the history and physical exam or was physically present for blount and critical portions performed by the resident/fellow. I reviewed the resident/fellow's documentation and discussed the patient with the resident/fellow. I agree with the resident/fellow's medical decision making as documented in the note. documented in this encounter [facility] Work Phone: 11-05-2023 History of Present illness Narrative Julieth Spencer is a 37 y.o. female on day 4 of admission presenting with DKA (diabetic ketoacidosis) (CMS/HCC). Subjective Patient was seen at bedside, patient tolerated Carb controlled diet well. Denies n/v/d. Dexcom placed on her today. Objective Constitutional: NAD, AOx3. Cooperative Skin/Hair: Warm, dry skin. HEENT: EOMI, Anicteric scleras Neck: Supple Cardiovascular: normal HR Respiratory: no increased wob Abdomen: J-tube in place Psych : appropriate affect Last Recorded Vitals Blood pressure 106/72, pulse 80, temperature 36.9 C (98.4 F), temperature source Temporal, resp. rate 16, height 1.626 m (5' 4 ), weight 48.2 kg (106 lb 4.2 oz), SpO2 98 %. Intake/Output last 3 Shifts: I/O last 3 completed shifts: In: 712.5 (14.8 mL/kg) [P.O.:50; I.V.:562.5 (11.7 mL/kg); IV Piggyback:100] Out: 75 (1.6 mL/kg) [Drains:5; Stool:70] Weight: 48.2 kg Relevant Results Results from last 7 days Lab Units 11/04/23 1215 11/04/23 1005 11/04/23 0726 11/04/23 0443 11/04/23 0244 11/03/23 2228 11/03/23 0816 11/03/23 0418 11/02/23 0502 11/02/23 0428 11/01/23 2230 11/01/23 2111 11/01/23 1613 11/01/23 1605 POCT GLUCOSE mg/dL 256* 145* 256* -- 316* 201* < > 111* < > -- < > -- < > -- GLUCOSE mg/dL -- -- -- 168* -- -- -- 126* -- 196* -- 190* -- 319* < > = values in this interval not displayed. Assessment/Plan Principal Problem: DKA (diabetic ketoacidosis) ([facility]) Active Problems: Chronic abdominal pain DM type 1 (diabetes mellitus, type 1) (CMS/HCC) H/O chronic pancreatitis History of pancreatectomy Dehydration Pancreatic insufficiency Chronic pancreatitis due to acute alcohol intoxication ([facility]) Julieth Spencer is a 37 year-old lady with history of T1DM (now T3C), Crohn's disease, and chronic pancreatitis s/ total pancreatectomy, splenectomy, RNYGJ, and J-tube placement on 10/11. This was c/b chyle leak. She was started on octreotide (Sandostin LAR, administered 10/26), and went IR lymphagiography and sclerosis on 10/29, after which she was discharged on that day. She was on TF running overnight for 12 hours at 30 ml/hr and on regular diet during the day. Discharge insulin regimen: Tresiba 3 units Q24H, NPH 4 units QPM to be given at start of TF initiation and customized insulin sliding scale: (1 unit for every 50 above 200). She was readmitted to the hospital on 10/31 with nausea, some vomiting of gastric contents, and ongoing abdominal discomfort. Labs on admission showed DKA with elevated BG at >1000, HCO3 15 and calculated AG 27. She was admitted to the SICU for DKA management. She was NOT taking her insulin at home as she was very ill. Endocrine is consulted to assist in management. Diabetes History: -Diagnosed with diabetes at the age of 30-31, she was told at the time that she had positive antibodies. Patient followed with an labor economics professor in [facility] -Previously being on Tandem Pump + Dexcom in [employer] at home, however she misplaced her pump few months ago and has been on MDI with accuchecks since then. -Most recent HbA1C 5.5% (09/25/23) -Patient has no known complications from diabetes -Home regimen prior to her pancreatectomy: Insulin glargine 5 units daily + insulin lispro sliding scale with meals (reports max dose of 3 units with meals) -During her prior hospitalization and on discharge on 10/29 patient was on regular diet during the day and on cyclic tube feeds 12 hours overnight from 8 PM to 8 AM running at 30 mL/hour -Home regimen on discharge 10/29: Tresiba 3 units Q24H, NPH 4 units QPM to be given at start of TF initiation and customized insulin sliding scale: (1 unit for every 50 above 200). -Patient was discharged with pharmacy [place] follow-up as well is follow-up with Dr. Edmondson scheduled for January 2024. 11/04 - TF stopped and carb consistent with supplements started Type IIIc diabetes p/w DKA iso uncontrolled pain and missed insulin: Discharge Recommendations - Tresiba 8 units Q24H. - Lispro Sliding scale 1 unit for every 50 above 150 TIDAC - Prandial lispro 3 units TIDAC - [place] [facility] consult placed. - Appointment with Dr. Edmondson on 01/18 Plan was communicated to the primary team Dianna Ny MD Endocrinology, PGY [address] frey Associated attestation - Amita Cohen MD - 11/06/2023 8:03 AM EST I saw and evaluated the patient. I personally obtained the blount and critical portions of the history and physical exam or was physically present for blount and critical portions performed by the resident/fellow. I reviewed the resident/fellow's documentation and discussed the patient with the resident/fellow. I agree with the resident/fellow's medical decision making as documented in the note. Julieth Spencer is a 37 y.o. female on day 4 of admission presenting with DKA (diabetic ketoacidosis) (CMS/HCC). Subjective Hyperglycemia overnight after NPH was held otherwise naeo Objective Gen: Lying in bed HEENT: Atraumatic, normocephalic Card: RR Resp: Non-labored breathing on RA Abd: Soft, non-distended, appropriately tender to palpation, prior drain site w/ dressing, tf running via j tube MSK: WRAY Neuro: AOx3, no gross neurological deficits Psych: appropriate Last Recorded Vitals Blood pressure 106/72, pulse 80, temperature 36.9 C (98.4 F), temperature source Temporal, resp. rate 16, height 1.626 m (5' 4 ), weight 48.2 kg (106 lb 4.2 oz), SpO2 98 %. Intake/Output last 3 Shifts: I/O last 3 completed shifts: In: 712.5 (14.8 mL/kg) [P.O.:50; I.V.:562.5 (11.7 mL/kg); IV Piggyback:100] Out: 75 (1.6 mL/kg) [Drains:5; Stool:70] Weight: 48.2 kg A/P: 37 yo F with T1DM, Crohn's disease (on Humira), and chronic pancreatitis s/ total pancreatectomy, splenectomy, RNYGJ, and J-tube placement on 10/[address] Burk - mynor c/b chyle leak, admitted 2/15 PM with nausea and ongoing abdominal discomfort since discharge. On 216 AM, shortly after admission, pt was found to have BG >1000 and admitted to SICU with DKA. Diet ad patrick during day and cycled tube feeds overnight. Holding o/n tubefeeds tonight. Will start calorie count. Neuro: gabapentin, citalopram, robaxin, prn oxycodone, prn lorazepam CV: clonidine P: mono GI: low fat diet, creon 36k (2 capsules QID ACHS, 1 capsule PRN w/ snacks) : mono, strict I/Os MSK: ambulate Endo: appreciate endo recs, tresiba 6u qam, SSI lispro q4, holding night time nph ID: no indication for abx Ppx: PPI + Lovenox D/w attending. Jose Armando Mansfield MD General Surgery, pgy[address] [place] [id number] Julieth Spencer is a 37 y.o. female on day 3 of admission presenting with DKA (diabetic ketoacidosis) (CMS/HCC). Subjective Pain better controlled. Tolerated TF overnight. Objective Gen: Lying in bed HEENT: Atraumatic, normocephalic Card: RR Resp: Non-labored breathing on RA Abd: Soft, non-distended, appropriately tender to palpation, drain in place w/ minimal serosanguineous output MSK: WRAY Neuro: AOx3, no gross neurological deficits Psych: Somewhat tearful this morning Last Recorded Vitals Blood pressure 102/79, pulse 74, temperature 36.8 C (98.2 F), temperature source Temporal, resp. rate 18, height 1.626 m (5' 4 ), weight 48.2 kg (106 lb 4.2 oz), SpO2 96 %. Intake/Output last 3 Shifts: I/O last 3 completed shifts: In: 4515.5 (93.7 mL/kg) [P.O.:620; I.V.:2935 (60.9 mL/kg); IV Piggyback:960.5] Out: 3676 (76.3 mL/kg) [Urine:3650 (2.1 mL/kg/hr); Drains:26] Weight: 48.2 kg Assessment/Plan Principal Problem: DKA (diabetic ketoacidosis) (CMS/HCC) Active Problems: Chronic abdominal pain DM type 1 (diabetes mellitus, type 1) (CMS/HCC) H/O chronic pancreatitis History of pancreatectomy Dehydration Pancreatic insufficiency Chronic pancreatitis due to acute alcohol intoxication ([facility]) 37 yo F with T1DM, Crohn's disease (on Humira), and chronic pancreatitis s/ total pancreatectomy, splenectomy, RNYGJ, and J-tube placement on 10/[address] Burk - course c/b chyle leak, admitted 2/15 PM with nausea and ongoing abdominal discomfort since discharge. On 11/01 AM, shortly after admission, pt was found to have BG >1000 and admitted to SICU with DKA. BG improving this AM. Having Diarrhea but now resolved. C-Diff not sent but stool pathogens negative. Neuro: gabapentin, citalopram, robaxin, prn oxycodone, prn lorazepam CV: clonidine P: mono GI: low fat diet, cycled TF at night, creon 36k (2 capsules QID ACHS, 1 capsule PRN w/ snacks), HLIVF, dc abdominal drain : mono, strict I/Os MSK: ambulate Endo: appreciate endo recs, tresiba 6u qam, SSI lispro q4, 4u NPH ID: discontinue [email or web address]/[email or web address] Ppx: PPI + Lovenox D/w Dr Omar Mansfield MD General Surgery, pgy[address] [place] [id number] Associated attestation - Weston Nelson MD - 11/03/2023 11:09 AM EST I saw and evaluated the patient. I personally obtained the blount and critical portions of the history and physical exam or was physically present for blount and critical portions performed by the resident/fellow. I reviewed the resident/fellow's documentation and discussed the patient with the resident/fellow. I agree with the resident/fellow's medical decision making as documented in the note with the exception/addition of the following: Covering for Winter. Pt seen in am with team. On SCC 6 Looks good TF at night Insulin per endo Spoke with Dr Burk-remove drain and stop abx 11/02/23 [id number] Discharge Planning Living Arrangements Spouse/significant other Support Systems Spouse/significant other Assistance Needed yes Type of Residence Private residence Number of Stairs to Enter Residence 0 Number of Stairs Within Residence 12 Do you have animals or pets at home? No Who is requesting discharge planning? Other (Comment) (TCC assessment) Home or Post Acute Services In home services Patient expects to be discharged to: home Does the patient need discharge transport arranged? No Financial Resource Strain How hard is it for you to pay for the very basics like food, housing, medical care, and heating? Not very Housing Stability In the last 12 months, was there a time when you were not able to pay the mortgage or rent on time? N In the last 12 months, how many places have you lived? 1 In the last 12 months, was there a time when you did not have a steady place to sleep or slept in a long term (including now)? N Transportation Needs In the past 12 months, has lack of transportation kept you from medical appointments or from getting medications? no In the past 12 months, has lack of transportation kept you from meetings, work, or from getting things needed for daily living? (May need transport assistance in future if she has driving restrictions) Transitional Product Safety Technical Assistant Note: Met with patient to discuss discharge planning s/p admission. Patient lives home with boyfriend. Independent in ADL's. Requires assist devices for ambulation( walker). Patient states she is active home care [facility] as she was she discharged 2 days ago and presented back after not feeling well. Demographics and contact information confirmed. Will continue to monitor patient for all home going needs. Bell Bonds RN TCC via [employer]. Falls- none Equipment- walker, TF( recent PEG) HC- HC per patient had not started due to return to hospital DM- yes, working glucometer- insulin Dialysis- none 02/Cpap- none SW- none Transportation at discharge- boyfriend PCP- Dr. Parekh as listed Pharm- [facility] Covering for Winter Pt seen in a with team. I did not add my comments to the housestaff progress note. Clearly improved Glucoses better off gtt Does not want TF. OK for LF, DM diet Drain scant, not chylous Pain regimen Hopefully to floor today Julieth Spencer is a 37 y.o. female on day 2 of admission presenting with DKA (diabetic ketoacidosis) (CMS/[facility]). Subjective Did well overnight, got dilaudid pain and K replacement....off insulin drip, 1/2 ns switched to LR (150cc/hr) for slightly low Na Objective Physical Exam Constitutional: Appearance: Normal appearance. Comments: Alert but drowsy HENT: Mouth/Throat: Mouth: Mucous membranes are dry. Eyes: Extraocular Movements: Extraocular movements intact. Cardiovascular: Rate and Rhythm: Normal rate and regular rhythm. Pulmonary: Breath sounds: Normal breath sounds. Musculoskeletal: General: Normal range of motion. Skin: General: Skin is warm and dry. Psychiatric: Behavior: Behavior normal. Comments: Slightly depressed mood Last Recorded Vitals Heart Rate: [0-77] Temp: [36.5 C (97.7 F)-37 C (98.6 F)] Resp: [8-38] BP: (101-138)/(82-97) SpO2: [92 %-100 %] Intake/Output last 3 Shifts: Intake/Output Summary (Last 24 hours) at 11/02/2023 1122 Last data filed at 11/02/2023 1100 Gross per 24 hour Intake 5102.63 ml Output 2535 ml Net 2567.63 ml Relevant Results Results for orders placed or performed during the hospital encounter of 10/31/23 (from the past 24 hour(s)) POCT GLUCOSE Result Value Ref Range POCT Glucose 99 74 - 99 mg/dL Blood Gas Venous Full Panel Result Value Ref Range POCT pH, Venous 7.41 7.33 - 7.43 pH POCT pCO2, Venous 52 (H) 41 - 51 mm Hg POCT pO2, Venous 29 (L) 35 - 45 mm Hg POCT SO2, Venous 45 45 - 75 % POCT Oxy Hemoglobin, Venous 44.5 (L) 45.0 - 75.0 % POCT Hematocrit Calculated, Venous 28.0 (L) 36.0 - 46.0 % POCT Sodium, Venous 132 (L) 136 - 145 mmol/L POCT Potassium, Venous 3.6 3.5 - 5.3 mmol/L POCT Chloride, Venous 98 98 - 107 mmol/L POCT Ionized Calicum, Venous 1.23 1.10 - 1.33 mmol/L POCT Glucose, Venous 101 (H) 74 - 99 mg/dL POCT Lactate, Venous 1.4 0.4 - 2.0 mmol/L POCT Base Excess, Venous 7.3 (H) -2.0 - 3.0 mmol/L POCT HCO3 Calculated, Venous 33.0 (H) 22.0 - 26.0 mmol/L POCT Hemoglobin, Venous 9.3 (L) 12.0 - 16.0 g/dL POCT Anion Gap, Venous 5.0 (L) 10.0 - 25.0 mmol/L Patient Temperature 37.0 degrees Celsius FiO2 21 % Renal Function Panel Result Value Ref Range Glucose 91 74 - 99 mg/dL Sodium 135 (L) 136 - 145 mmol/L Potassium 4.4 3.5 - 5.3 mmol/L Chloride 96 (L) 98 - 107 mmol/L Bicarbonate 32 21 - 32 mmol/L Anion Gap 11 10 - 20 mmol/L Urea Nitrogen 11 6 - 23 mg/dL Creatinine 0.78 0.50 - 1.05 mg/dL eGFR >90 >60 mL/min/1.73m*2 Calcium 8.4 (L) 8.6 - 10.6 mg/dL Phosphorus 2.5 2.5 - 4.9 mg/dL Albumin 2.3 (L) 3.4 - 5.0 g/dL Magnesium Result Value Ref Range Magnesium 1.73 1.60 - 2.40 mg/dL Calcium, Ionized Result Value Ref Range POCT Calcium, Ionized 1.16 1.1 - 1.33 mmol/L Vancomycin Result Value Ref Range Vancomycin 9.9 5.0 - 20.0 ug/mL POCT GLUCOSE Result Value Ref Range POCT Glucose 137 (H) 74 - 99 mg/dL POCT GLUCOSE Result Value Ref Range POCT Glucose 158 (H) 74 - 99 mg/dL Blood Gas Venous Full Panel Result Value Ref Range POCT pH, Venous 7.40 7.33 - 7.43 pH POCT pCO2, Venous 49 41 - 51 mm Hg POCT pO2, Venous 39 35 - 45 mm Hg POCT SO2, Venous 64 45 - 75 % POCT Oxy Hemoglobin, Venous 62.9 45.0 - 75.0 % POCT Hematocrit Calculated, Venous 25.0 (L) 36.0 - 46.0 % POCT Sodium, Venous 129 (L) 136 - 145 mmol/L POCT Potassium, Venous 4.5 3.5 - 5.3 mmol/L POCT Chloride, Venous 96 (L) 98 - 107 mmol/L POCT Ionized Calicum, Venous 1.18 1.10 - 1.33 mmol/L POCT Glucose, Venous 234 (H) 74 - 99 mg/dL POCT Lactate, Venous 1.0 0.4 - 2.0 mmol/L POCT Base Excess, Venous 4.9 (H) -2.0 - 3.0 mmol/L POCT HCO3 Calculated, Venous 30.4 (H) 22.0 - 26.0 mmol/L POCT Hemoglobin, Venous 8.3 (L) 12.0 - 16.0 g/dL POCT Anion Gap, Venous 7.0 (L) 10.0 - 25.0 mmol/L Patient Temperature 37.0 degrees Celsius FiO2 21 % POCT GLUCOSE Result Value Ref Range POCT Glucose 193 (H) 74 - 99 mg/dL Calcium, Ionized Result Value Ref Range POCT Calcium, Ionized 1.10 1.1 - 1.33 mmol/L Blood Gas Venous Full Panel Result Value Ref Range POCT pH, Venous 7.38 7.33 - 7.43 pH POCT pCO2, Venous 50 41 - 51 mm Hg POCT pO2, Venous 36 35 - 45 mm Hg POCT SO2, Venous 61 45 - 75 % POCT Oxy Hemoglobin, Venous 60.4 45.0 - 75.0 % POCT Hematocrit Calculated, Venous 24.0 (L) 36.0 - 46.0 % POCT Sodium, Venous 127 (L) 136 - 145 mmol/L POCT Potassium, Venous 4.7 3.5 - 5.3 mmol/L POCT Chloride, Venous 95 (L) 98 - 107 mmol/L POCT Ionized Calicum, Venous 1.19 1.10 - 1.33 mmol/L POCT Glucose, Venous 352 (H) 74 - 99 mg/dL POCT Lactate, Venous 1.2 0.4 - 2.0 mmol/L POCT Base Excess, Venous 3.9 (H) -2.0 - 3.0 mmol/L POCT HCO3 Calculated, Venous 29.6 (H) 22.0 - 26.0 mmol/L POCT Hemoglobin, Venous 8.1 (L) 12.0 - 16.0 g/dL POCT Anion Gap, Venous 7.0 (L) 10.0 - 25.0 mmol/L Patient Temperature 37.0 degrees Celsius FiO2 21 % Magnesium Result Value Ref Range Magnesium 1.63 1.60 - 2.40 mg/dL Renal Function Panel Result Value Ref Range Glucose 319 (H) 74 - 99 mg/dL Sodium 129 (L) 136 - 145 mmol/L Potassium 5.4 (H) 3.5 - 5.3 mmol/L Chloride 93 (L) 98 - 107 mmol/L Bicarbonate 29 21 - 32 mmol/L Anion Gap 12 10 - 20 mmol/L Urea Nitrogen 11 6 - 23 mg/dL Creatinine 0.74 0.50 - 1.05 mg/dL eGFR >90 >60 mL/min/1.73m*2 Calcium 8.0 (L) 8.6 - 10.6 mg/dL Phosphorus 2.5 2.5 - 4.9 mg/dL Albumin 2.4 (L) 3.4 - 5.0 g/dL POCT GLUCOSE Result Value Ref Range POCT Glucose 310 (H) 74 - 99 mg/dL POCT GLUCOSE Result Value Ref Range POCT Glucose 282 (H) 74 - 99 mg/dL Blood Gas Venous Full Panel Result Value Ref Range POCT pH, Venous 7.40 7.33 - 7.43 pH POCT pCO2, Venous 53 (H) 41 - 51 mm Hg POCT pO2, Venous 28 (L) 35 - 45 mm Hg POCT SO2, Venous 44 (L) 45 - 75 % POCT Oxy Hemoglobin, Venous 43.6 (L) 45.0 - 75.0 % POCT Hematocrit Calculated, Venous 24.0 (L) 36.0 - 46.0 % POCT Sodium, Venous 132 (L) 136 - 145 mmol/L POCT Potassium, Venous 4.1 3.5 - 5.3 mmol/L POCT Chloride, Venous 97 (L) 98 - 107 mmol/L POCT Ionized Calicum, Venous 1.22 1.10 - 1.33 mmol/L POCT Glucose, Venous 262 (H) 74 - 99 mg/dL POCT Lactate, Venous 1.9 0.4 - 2.0 mmol/L POCT Base Excess, Venous 7.1 (H) -2.0 - 3.0 mmol/L POCT HCO3 Calculated, Venous 32.8 (H) 22.0 - 26.0 mmol/L POCT Hemoglobin, Venous 8.1 (L) 12.0 - 16.0 g/dL POCT Anion Gap, Venous 6.0 (L) 10.0 - 25.0 mmol/L Patient Temperature 37.0 degrees Celsius FiO2 21 % POCT GLUCOSE Result Value Ref Range POCT Glucose 251 (H) 74 - 99 mg/dL POCT GLUCOSE Result Value Ref Range POCT Glucose 220 (H) 74 - 99 mg/dL Renal Function Panel Result Value Ref Range Glucose 190 (H) 74 - 99 mg/dL Sodium 133 (L) 136 - 145 mmol/L Potassium 3.7 3.5 - 5.3 mmol/L Chloride 96 (L) 98 - 107 mmol/L Bicarbonate 29 21 - 32 mmol/L Anion Gap 12 10 - 20 mmol/L Urea Nitrogen 9 6 - 23 mg/dL Creatinine 0.72 0.50 - 1.05 mg/dL eGFR >90 >60 mL/min/1.73m*2 Calcium 7.8 (L) 8.6 - 10.6 mg/dL Phosphorus 1.5 (L) 2.5 - 4.9 mg/dL Albumin 2.4 (L) 3.4 - 5.0 g/dL Blood Gas Venous Full Panel Result Value Ref Range POCT pH, Venous 7.45 (H) 7.33 - 7.43 pH POCT pCO2, Venous 45 41 - 51 mm Hg POCT pO2, Venous 52 (H) 35 - 45 mm Hg POCT SO2, Venous 89 (H) 45 - 75 % POCT Oxy Hemoglobin, Venous 87.2 (H) 45.0 - 75.0 % POCT Hematocrit Calculated, Venous 24.0 (L) 36.0 - 46.0 % POCT Sodium, Venous 131 (L) 136 - 145 mmol/L POCT Potassium, Venous 3.7 3.5 - 5.3 mmol/L POCT Chloride, Venous POCT Ionized Calicum, Venous 1.12 1.10 - 1.33 mmol/L POCT Glucose, Venous 183 (H) 74 - 99 mg/dL POCT Lactate, Venous 1.2 0.4 - 2.0 mmol/L POCT Base Excess, Venous 6.6 (H) -2.0 - 3.0 mmol/L POCT HCO3 Calculated, Venous 31.3 (H) 22.0 - 26.0 mmol/L POCT Hemoglobin, Venous 8.0 (L) 12.0 - 16.0 g/dL POCT Anion Gap, Venous Patient Temperature 37.0 degrees Celsius FiO2 21 % Magnesium Result Value Ref Range Magnesium 1.66 1.60 - 2.40 mg/dL POCT GLUCOSE Result Value Ref Range POCT Glucose 184 (H) 74 - 99 mg/dL POCT GLUCOSE Result Value Ref Range POCT Glucose 207 (H) 74 - 99 mg/dL POCT GLUCOSE Result Value Ref Range POCT Glucose 195 (H) 74 - 99 mg/dL POCT GLUCOSE Result Value Ref Range POCT Glucose 217 (H) 74 - 99 mg/dL Renal Function Panel Result Value Ref Range Glucose 196 (H) 74 - 99 mg/dL Sodium 133 (L) 136 - 145 mmol/L Potassium 5.0 3.5 - 5.3 mmol/L Chloride 96 (L) 98 - 107 mmol/L Bicarbonate 31 21 - 32 mmol/L Anion Gap 11 10 - 20 mmol/L Urea Nitrogen 7 6 - 23 mg/dL Creatinine 0.75 0.50 - 1.05 mg/dL eGFR >90 >60 mL/min/1.73m*2 Calcium 8.1 (L) 8.6 - 10.6 mg/dL Phosphorus 2.8 2.5 - 4.9 mg/dL Albumin 2.3 (L) 3.4 - 5.0 g/dL Magnesium Result Value Ref Range Magnesium 1.69 1.60 - 2.40 mg/dL POCT GLUCOSE Result Value Ref Range POCT Glucose 178 (H) 74 - 99 mg/dL POCT GLUCOSE Result Value Ref Range POCT Glucose 200 (H) 74 - 99 mg/dL POCT GLUCOSE Result Value Ref Range POCT Glucose 260 (H) 74 - 99 mg/dL CBC Result Value Ref Range WBC 8.4 4.4 - 11.3 x10*3/uL nRBC 0.0 0.0 - 0.0 /100 WBCs RBC 2.66 (L) 4.00 - 5.20 x10*6/uL Hemoglobin 7.7 (L) 12.0 - 16.0 g/dL Hematocrit 24.4 (L) 36.0 - 46.0 % MCV 92 80 - 100 fL MCH 28.9 26.0 - 34.0 pg MCHC 31.6 (L) 32.0 - 36.0 g/dL RDW 15.1 (H) 11.5 - 14.5 % Platelets 1,134 (H) 150 - 450 x10*3/uL Assessment/Plan Julieth Gordon is a 37 yo F with PMH of T1DM, Crohn's disease (on Humira), who developed DKA at home after treatment for chyle leak post rou-en-y surgery. NEURO: No PMH. Pt arrived to SICU. 11/01: A&Ox3. Frustrated with pain management. - Ongoing neuro and pain assessments - Inc Gabapentin to 800mg TID and had discussion on chronic pain management and expectations regarding acute vs. Chronic pain as patient was requesting additional opioids/discussing her previous regimen. - PRN Oxycodone and Tylenol - d /manny prn Dilaudid - PT/OT consult - Resume home Clonidine, Citalopram, Ativan; Hold for now: Vraylar, Gabapentin, Trazadone - PO Robaxin 500 mg q6h CV: No PMH 11/01: RRR, BP and HR stable - Continuous EKG/abp monitoring - Goal MAP >65 PULM: No significant hx. Arrived to SICU on NC 11/01: Lungs sound clear. Sat 100% rm air - Continue to monitor GI: Hx GERD, Crohn's disease (on Humira), and chronic pancreatitis s/ total pancreatectomy, splenectomy, RNYGJ, and J-tube placement on 10/[address] Burk c/charo chyle leak s/p lymphangiography and sclerosis on 10/29 11/02: Ongoing diarrhea. Was not collected in hat overnight. - Send stool cdiff and pathogen panel - Continue home Pantoprazole 40mg every day - Clear non-glucose containing fluids for now - Pt refusing PEG tube feeds - Started on low fat diabetic diet - PPI for GI prophylaxis - Octreotide not needed at this time (shot given outpatient periodically) ENDO: History of T1DM, chronic pancreatitis s/ total pancreatectomy, splenectomy, RNYGJ, and J-tube placement on 10/[address] Burk c/b chyle leak s/p lymphangiography and sclerosis on 10/29. Now in DKA 11/02: Off insulin drip, on ss and home Tresiba, BG stable 178-207 on sliding scale, 1/2ns was switched to LR 150ml/hr - q1h glucose - Will decrease maintenance LR to 75 ml/hr - Endo following - Replace K (follow DKA protocol) and electrolytes as needed : Hyperkalemia (6.5 on admission), DKA 11/02: electrolytes stable, getting pottasium infusion still running - Check renal function panel q4h - Volume resuscitation as needed - Maintain U/O >0.5ml/kg/hr; monitor strict in hat - Strict I/Os in hat - Replete electrolytes, Mg>2, Phos>2.5, ionized Ca>1.10 -decrease mIVF to 75 ml/hr, continue to decrease as PO intake improves HEME: Hgb on arrival to the SICU 9.7 11/02: CBC wasn't drawn, pending, will follow up - Check CBC and coags post op and daily - SCDs and Lovenox for DVT prophylaxis - Ongoing monitoring for s/s bleeding ID: Concerns for infection, s/p Saurav-en-Y procedure c/b chyle leak 11/02: Blood cltx, lines, urine no growth; MRSA -ve - Continue empiric abx Zosyn, vancomycin and fluconazole - Follow-up stool labs (cdiff and path panel) - Temp q4h, wbc daily - Ongoing monitoring for s/s infection - ID consult, appreciate recs - Repeat CT AP w/wo IV contrast showed possible colitis Lines: Midline and 1 PIV 18g Dispo: To floor today when bed available. Patient seen and discussed with ICU attending MD Olinda Gutierrez MD Julieth Spencer is a 37 y.o. female on day 2 of admission presenting with DKA (diabetic ketoacidosis) (CMS/HCC). Subjective Patient complaining of pain. No nausea or vomiting. Patient falling asleep during interview. Objective Gen: Lying in bed HEENT: Atraumatic, normocephalic Card: RRR Resp: Non-labored breathing on RA Abd: Soft, non-distended, appropriately tender to palpation, drain in place with serosanguineous output MSK: KAMALA Neuro: AOx3, no gross neurological deficits Psych: Somewhat tearful this morning Last Recorded Vitals Blood pressure (!) 125/94, pulse 63, temperature 36.7 C (98.1 F), temperature source Temporal, resp. rate 13, height 1.626 m (5' 4 ), weight 48.2 kg (106 lb 4.2 oz), SpO2 95 %. Intake/Output last 3 Shifts: I/O last 3 completed shifts: In: 8330.2 (172.8 mL/kg) [P.O.:240; I.V.:4479.7 (92.9 mL/kg); IV Piggyback:3610.5] Out: 2495 (51.8 mL/kg) [Urine:2450 (1.4 mL/kg/hr); Drains:45] Weight: 48.2 kg Assessment/Plan Principal Problem: DKA (diabetic ketoacidosis) ([facility]) Active Problems: Chronic abdominal pain DM type 1 (diabetes mellitus, type 1) ([facility]) H/O chronic pancreatitis History of pancreatectomy Dehydration Pancreatic insufficiency Chronic pancreatitis due to acute alcohol intoxication ([facility]) 37 yo F with T1DM, Crohn's disease (on Humira), and chronic pancreatitis s/ total pancreatectomy, splenectomy, RNYGJ, and J-tube placement on 10/[address] Burk - course c/b chyle leak, admitted 2/15 PM with nausea and ongoing abdominal discomfort since discharge. On 216 AM, shortly after admission, pt was found to have BG >1000 and admitted to SICU with DKA. BG improving this AM. Having Diarrhea but now resolved. C-Diff not sent but stool pathogens negative. -Okay to transfer to the floor - Please send c diff if having recurrent diarrhea -Continue strict I's and O's -Regular diet low-fat diabetic -Needs to ambulate. -Appreciate endocrine consult: Tresiba 3 units daily + SSI (+evening NPH if night time feeds started back). -continue IVF for now, Heplock IV once tolerating regular diet. -Calorie counts - ok to DC vanc, continue Zosyn for 3 more days Ppx: PPI + Lovenox D/w Dr Omar Ellis MD [facility] Surgical Oncology Julieth Spencer is a 37 y.o. female on day 2 of admission presenting with DKA (diabetic ketoacidosis) (CMS/HCC). Subjective Patient seen and examined. Was complaining of significant back pain and inadequate frequency/prolonged intervals between pain medication doses. Patient states that she screwed up and did not take her insulin while at home due to significant pain. Patient was ordered tube feeds however she said she refused them and is now ordered a diet. Objective Constitutional: NAD, AOx3. Cooperative Skin/Hair: Warm, dry skin. HEENT: EOMI, Anicteric scleras Neck: Supple Cardiovascular: normal HR Respiratory: no increased wob Abdomen: J-tube in place Psych : appropriate affect Last Recorded Vitals Blood pressure (!) 132/93, pulse 68, temperature 36.7 C (98.1 F), temperature source Temporal, resp. rate 15, height 1.626 m (5' 4 ), weight 48.2 kg (106 lb 4.2 oz), SpO2 97 %. Intake/Output last 3 Shifts: I/O last 3 completed shifts: In: 8330.2 (172.8 mL/kg) [P.O.:240; I.V.:4479.7 (92.9 mL/kg); IV Piggyback:3610.5] Out: 2495 (51.8 mL/kg) [Urine:2450 (1.4 mL/kg/hr); Drains:45] Weight: 48.2 kg Relevant Results Results from last 7 days Lab Units 11/02/23 1129 11/02/23 0723 11/02/23 0618 11/02/23 0502 11/02/23 0428 11/02/23 0340 11/01/23 2230 11/01/23 2111 11/01/23 1613 11/01/23 1605 11/01/23 1345 11/01/23 1245 11/01/23 1039 11/01/23 0920 POCT GLUCOSE mg/dL 237* 260* 200* 178* -- 217* < > -- < > -- < > -- < > -- GLUCOSE mg/dL -- -- -- -- 196* -- -- 190* -- 319* -- 91 -- 120* < > = values in this interval not displayed. Assessment/Plan Principal Problem: DKA (diabetic ketoacidosis) ([facility]) Active Problems: Chronic abdominal pain DM type 1 (diabetes mellitus, type 1) ([facility]) H/O chronic pancreatitis History of pancreatectomy Dehydration Pancreatic insufficiency Chronic pancreatitis due to acute alcohol intoxication ([facility]) Julieth Spencer is a 37 year-old lady with history of T1DM (now T3C), Crohn's disease, and chronic pancreatitis s/ total pancreatectomy, splenectomy, RNYGJ, and J-tube placement on 10/11. This was c/b chyle leak. She was started on octreotide (Sandostin LAR, administered 10/26), and went IR lymphagiography and sclerosis on 10/29, after which she was discharged on that day. She was on TF running overnight for 12 hours at 30 ml/hr and on regular diet during the day. Discharge insulin regimen: Tresiba 3 units Q24H, NPH 4 units QPM to be given at start of TF initiation and customized insulin sliding scale: (1 unit for every 50 above 200). She represented to the hospital on 10/31 with nausea, some vomiting of gastric contents, and ongoing abdominal discomfort. She reported that since discharge she remained fatigued and without appetite and reported that her JACQUELINE drain continued to put out chyle. Labs on admission showed DKA with elevated BG at >1000, HCO3 15 and calculated AG 27. She was admitted to the SICU for DKA management. Endocrine is consulted to assist in management. Diabetes History: -Diagnosed with diabetes at the age of 30-31, she was told at the time that she had positive antibodies. Patient followed with an labor economics professor in [facility] -Previously being on Tandem Pump + Dexcom in [employer] at home, however she misplaced her pump few months ago and has been on MDI with accuchecks since then. -Most recent HbA1C 5.5% (09/25/23) -Patient has no known complications from diabetes -Home regimen prior to her pancreatectomy: Insulin glargine 5 units daily + insulin lispro sliding scale with meals (reports max dose of 3 units with meals) -During her prior hospitalization and on discharge on 10/29 patient was on regular diet during the day and on cyclic tube feeds 12 hours overnight from 8 PM to 8 AM running at 30 mL/hour -Home regimen on discharge 10/29: Tresiba 3 units Q24H, NPH 4 units QPM to be given at start of TF initiation and customized insulin sliding scale: (1 unit for every 50 above 200). -Patient was discharged with pharmacy [place] follow-up as well is follow-up with Dr. Edmondson scheduled for January 2024. Of note, patient reported that she felt ill since discharge with progressive nausea, vomiting, and abdominal pain. Patient states that she had insulin at home, and was checking her blood sugar however she could not provide specific readings of her blood sugar and she does NOT recall taking her insulin. She continues to complain of pain, and nausea after resolution of DKA. Type IIIc diabetes p/w DKA iso uncontrolled pain and missed insulin: Presented with progressive nausea, and vomiting. She was NOT taking her insulin at home as she was very ill. -Goal BG 140-180 -INCREASE Tresiba to 6 units Q24H. (*Patient has no insulin production whatsoever, therefore long-acting insulin (tresiba) should not be held for any reason otherwise patient is at risk for DKA*) -SWITCH to #1 sliding scale to 3 times daily with meals -Accuchecks 3 times daily with meals and at bedtime -Hypoglycemia protocol -Please inform endocrinology if diet orders are changed. Plan was communicated to the primary team Sandro Drake MD Endocrinology, PGY 4 Pager [phone] or secure chat Case discussed with Dr. Torres Associated attestation - Jose Torres MD - 11/03/2023 3:34 PM EST I saw and evaluated the patient. I personally obtained the blount and critical portions of the history and physical exam or was physically present for blount and critical portions performed by the resident/fellow. I reviewed the resident/fellow's documentation and discussed the patient with the resident/fellow. I agree with the resident/fellow's medical decision making as documented in the note. Vancomycin Dosing by Pharmacy- FOLLOW UP Julieth Spencer is a 37 y.o. year old female who Pharmacy has been consulted for vancomycin dosing for other DKA, chyle leak . Based on the patient's indication and renal status this patient is being dosed based on a goal AUC of 400-600. Renal function is currently improving. SIMA appears to have resolved and Scr return to patient baseline. Current vancomycin dose: Previously dosing per random levels. Most recent random level: 9.9 mcg/mL (~6hr level) Visit Vitals BP (!) 121/91 Pulse 70 Temp 37 C (98.6 F) (Temporal) Resp 17 Lab Results Component Value Date CREATININE 0.74 11/01/2023 CREATININE 0.78 11/01/2023 CREATININE 0.80 11/01/2023 CREATININE 1.02 11/01/2023 Patient weight is 48.2 kg I/O last 3 completed shifts: In: 2195.7 (45.6 mL/kg) [I.V.:995.7 (20.7 mL/kg); IV Piggyback:1200] Out: 305 (6.3 mL/kg) [Urine:300 (0.2 mL/kg/hr); Drains:5] Weight: 48.2 kg Lab Results Component Value Date PATIENTTEMP 37.0 11/01/2023 PATIENTTEMP 37.0 11/01/2023 PATIENTTEMP 37.0 11/01/2023 Assessment/Plan Will switch patient to AUC dosing now that it appears that renal function has stabilized. Will initiate regimen of 750 mg IV q12hr. This dosing regimen is predicted by [employer] to result in the following pharmacokinetic parameters: Loading dose: N/A Regimen: 750 mg IV every 12 hours. Start time: 18:29 on 11/01/2023 Exposure target: AUC24 (range)400-600 mg/L.hr AUC24,ss: 511 mg/L.hr Probability of AUC24 > 400: 87 % Ctrough,ss: 14.8 mg/L Probability of Ctrough,ss > 20: 16 % Probability of nephrotoxicity (Lodise YONY 2008): 10 % The next level will be obtained on 11/03 at AM labs. May be obtained sooner if clinically indicated. Will continue to monitor renal function daily while on vancomycin and order serum creatinine at least every 48 hours if not already ordered. Follow for continued vancomycin needs, clinical response, and signs/symptoms of toxicity. Justine HarrisD SICU ATTENDING NOTE I have seen the patient either independently or with an associated resident physician or advanced practice provider. Assessment/Plan: 37 year old female with pertinent PMH of T1DM, Crohn's disease (on Humira), and chronic pancreatitis s/ total pancreatectomy, splenectomy, RNYGJ, and J-tube placement on 10/[address] Burk c/b chyle leak s/p IR lymphangiography and sclerosis on 10/29, after which she was discharged. Patient with ongoing complaints of nausea, vomiting, poor appetite, and fatigue at home. She was admitted to hospital and found to be in DKA with severe hyperglycemia and was transferred to SICU for further management. Neuro: Chronic pain, appears to be weaning off opioid medications from palliative physician at [facility]. Chronic pain consulted, continue PRN oxycodone 5mg, continue home meds of clonidine, gabapentin, duloxetine, buspar. Continue tylenol. PT/OT. Has been ambulating without difficulty CV: Currently hemodynamically stable without need for vasoactive medications. Respiratory: Saturating well on room air : Monitor electrolytes closely with q6hr RFP. Replete potassium as needed. D5 1/2 NS @ 250 mL/hr. 2 L fluid bolus LR now. Likely decrease mIVF after long acting insulin started and patient tolerating clears-fulls GI: Start sugar free clear liquid diet. Continue home PPI. Diarrhea, send stool studies and C. Diff. S/p total pancreatectomy c/b chyle leak. Drain in place, flush BID per surgery. Nutrition consult for moderate protein calorie malnutrition Endo: Type 1 DM. DKA. Anion gap now closed. Afternoon RFP. Endocrine consult for long acting recommendations and further recs on floor ID: Afebrile. Blood cultures, urine culture, MRSA swab sent. Continue vanc/zosyn/fluconazole until cultures come back, then likely de escalate antibiotics Heme: Hgb stable without active signs or symptoms of bleeding. SCDs and lovenox for DVT prophylaxis Skin: no issues Prophylaxis: SCDs, PPI, lovenox Lines: midline, PIV Dispo: Continue SICU care, assess for transfer this afternoon if anion gap remains closed Plan discussed with ZOË and RN at bedside. Family to be updated as available. Elias Reece D.O. Department of Anesthesiology & Perioperative Medicine CTICU/SICU Critical Care Garment Fitter This critically ill patient continues to be at risk for clinically significant deterioration / failure due to the above mentioned dysfunctional, unstable organ systems. I have personally identified and managed all complex critical care issues to prevent aforementioned clinical deterioration. Critical care time is spent at bedside and/or the immediate area and has included, but is not limited to, the review of diagnostic tests, labs, radiographs, serial assessments of hemodynamics, respiratory status, ventilatory management, review of consult team recommendations, and family updates. Time spent in procedures and teaching are reported separately. Critical Care Time: 46 minutes. PLAN: 37 yo F with T1DM, Crohn's disease (on Humira), and chronic pancreatitis s/ total pancreatectomy, splenectomy, RNYGJ, and J-tube placement on 10/[address] Burk - course c/b chyle leak, admitted 2/15 PM with nausea and ongoing abdominal discomfort since discharge. On 11/01 AM, shortly after admission, pt was found to have BG >1000 and admitted to SICU with DKA. BG improving this AM. Having Diarrhea - Continue SICU care, appreciate management - Please send c diff + stool pathogens - Fishman for strict I/O - Continue to track drain output, will consider pulling later this admission - Continued fluid resuscitation - Endocrine consult PAYOR: [facility] Medicaid DISPO: home vs [facility] SUPPORT/CONTACT: Mami (s/o) [phone] Met with patient to complete assessment. Confirmed demographics on file, lives with s/o in 2 story home. BR/REYNALDO on 2nd story. Patient states she is active with PCP, IPTA, denies DME, previous inpatient rehab stay. She is insulin dependent diabetic- reports no issues obtaining supplies or post-acute care. Available to assist with any discharge needs. Julieth Spencer is a 37 y.o. female on day 1 of admission presenting with Dehydration. Subjective Pt was admitted ON and went into DKA. Transferred to SICU for further care. Blood sugar coming down. Pt otherwise endorses improving fatigue and nausea. Voiding. Objective Gen: Lying in bed HEENT: Atraumatic, normocephalic Card: RRR Resp: Non-labored breathing on RA Abd: Soft, non-distended, moderately tender to palpation, drain in place with minimal milky output MSK: WRAY Neuro: AOx3, no gross neurological deficits Psych: Flat affect Last Recorded Vitals Blood pressure 123/74, pulse 71, temperature 36.5 C (97.7 F), temperature source Temporal, resp. rate 10, height 1.626 m (5' 4 ), weight 48.2 kg (106 lb 4.2 oz), SpO2 97 %. Intake/Output last 3 Shifts: I/O last 3 completed shifts: In: 1704 (35.4 mL/kg) [I.V.:504 (10.5 mL/kg); IV Piggyback:1200] Out: 305 (6.3 mL/kg) [Urine:300 (0.2 mL/kg/hr); Drains:5] Weight: 48.2 kg Assessment/Plan Principal Problem: Dehydration 37 yo F with T1DM, Crohn's disease (on Humira), and chronic pancreatitis s/ total pancreatectomy, splenectomy, RNYGJ, and J-tube placement on 10/[address] Burk - course c/b chyle leak, admitted 2/15 PM with nausea and ongoing abdominal discomfort since discharge. On 11/01 AM, shortly after admission, pt was found to have BG >1000 and admitted to SICU with DKA. BG improving this AM. Having Diarrhea - Continue SICU care, appreciate management - Please send c diff + stool pathogens - Fishman for strict I/O - Continue to track drain output, will consider pulling later this admission - Continued fluid resuscitation - Endocrine consult D/w Dr. Bhargavi Burgess MD [facility] Surgical Oncology Physical Therapy Physical Therapy Screen Patient Name: Julieth Spencer Today's Date: 11/01/2023 0857 Subjective Assessment/Plan General Visit Information: General General Comment: Pt observed this AM moving independently around bedside. During pt's recent hospital admission, she progressed to IND mobility with PT with [facility] 24. No invasive medical interventions performed since that time. No acute skilled PT needs currently. Will DC PT orders. Pt should continue to mobilize with staff veterinarian. Please re-consult should acute PT needs present. Amalia Garcia PT, DPT Julieth Spencer is a 37 y.o. female on day 1 of admission presenting with Dehydration. Subjective Started on DKA treatment, did well overnight although had ongoing abdominal pain unresponsive to dilaudid Objective Physical Exam Constitutional: Appearance: Normal appearance. HENT: Head: Normocephalic and atraumatic. Mouth/Throat: Mouth: Mucous membranes are moist. Eyes: Extraocular Movements: Extraocular movements intact. Cardiovascular: Rate and Rhythm: Normal rate and regular rhythm. Pulmonary: Breath sounds: Normal breath sounds. Abdominal: Palpations: Abdomen is soft. Tenderness: There is guarding. Musculoskeletal: General: Normal range of motion. Skin: General: Skin is warm and dry. Neurological: General: No focal deficit present. Mental Status: She is alert and oriented to person, place, and time. Psychiatric: Mood and Affect: Mood normal. Behavior: Behavior normal. Comments: Anxious from abdominal pain Last Recorded Vitals Blood pressure 128/87, pulse 86, temperature 36.8 C (98.2 F), temperature source Temporal, resp. rate 14, height 1.626 m (5' 4 ), weight 48.2 kg (106 lb 4.2 oz), SpO2 97 %. Intake/Output last 3 Shifts: No intake/output data recorded. Relevant Results Results for orders placed or performed during the hospital encounter of 10/31/23 (from the past 24 hour(s)) Type And Screen Result Value Ref Range ABO TYPE A Rh TYPE POS ANTIBODY SCREEN NEG CBC Result Value Ref Range WBC 9.6 4.4 - 11.3 x10*3/uL nRBC 0.2 (H) 0.0 - 0.0 /100 WBCs RBC 3.28 (L) 4.00 - 5.20 x10*6/uL Hemoglobin 9.7 (L) 12.0 - 16.0 g/dL Hematocrit 29.4 (L) 36.0 - 46.0 % MCV 90 80 - 100 fL MCH 29.6 26.0 - 34.0 pg MCHC 33.0 32.0 - 36.0 g/dL RDW 14.8 (H) 11.5 - 14.5 % Platelets 1,497 (H) 150 - 450 x10*3/uL Magnesium Result Value Ref Range Magnesium 2.11 1.60 - 2.40 mg/dL Hepatic Function Panel Result Value Ref Range Albumin 2.8 (L) 3.4 - 5.0 g/dL Bilirubin, Total 0.2 0.0 - 1.2 mg/dL Bilirubin, Direct 0.0 0.0 - 0.3 mg/dL Alkaline Phosphatase 123 (H) 33 - 110 U/L ALT 12 7 - 45 U/L AST 18 9 - 39 U/L Total Protein 6.6 6.4 - 8.2 g/dL Coagulation Screen Result Value Ref Range Protime 12.8 9.8 - 12.8 seconds INR 1.1 0.9 - 1.1 aPTT 32 27 - 38 seconds Phosphorus Result Value Ref Range Phosphorus 5.1 (H) 2.5 - 4.9 mg/dL Basic Metabolic Panel Result Value Ref Range Glucose 1,161 (HH) 74 - 99 mg/dL Sodium 121 (L) 136 - 145 mmol/L Potassium 6.5 (HH) 3.5 - 5.3 mmol/L Chloride 79 (L) 98 - 107 mmol/L Bicarbonate 15 (L) 21 - 32 mmol/L Anion Gap 34 (H) 10 - 20 mmol/L Urea Nitrogen 6 6 - 23 mg/dL Creatinine 1.04 0.50 - 1.05 mg/dL eGFR 72 >60 mL/min/1.73m*2 Calcium 8.9 8.6 - 10.6 mg/dL POCT GLUCOSE Result Value Ref Range POCT Glucose >600 (H) 74 - 99 mg/dL POCT GLUCOSE Result Value Ref Range POCT Glucose >600 (H) 74 - 99 mg/dL Blood Gas Venous Full Panel Result Value Ref Range POCT pH, Venous 7.26 (L) 7.33 - 7.43 pH POCT pCO2, Venous 37 (L) 41 - 51 mm Hg POCT pO2, Venous 40 35 - 45 mm Hg POCT SO2, Venous 50 45 - 75 % POCT Oxy Hemoglobin, Venous 50.1 45.0 - 75.0 % POCT Hematocrit Calculated, Venous 29.0 (L) 36.0 - 46.0 % POCT Sodium, Venous 119 (LL) 136 - 145 mmol/L POCT Potassium, Venous 6.7 (HH) 3.5 - 5.3 mmol/L POCT Chloride, Venous 79 (L) 98 - 107 mmol/L POCT Ionized Calicum, Venous 1.21 1.10 - 1.33 mmol/L POCT Glucose, Venous >685 (HH) 74 - 99 mg/dL POCT Lactate, Venous 4.9 (HH) 0.4 - 2.0 mmol/L POCT Base Excess, Venous -9.7 (L) -2.0 - 3.0 mmol/L POCT HCO3 Calculated, Venous 16.6 (L) 22.0 - 26.0 mmol/L POCT Hemoglobin, Venous 9.7 (L) 12.0 - 16.0 g/dL POCT Anion Gap, Venous 30.0 (H) 10.0 - 25.0 mmol/L Patient Temperature 37.0 degrees Celsius FiO2 21 % POCT GLUCOSE Result Value Ref Range POCT Glucose >600 (H) 74 - 99 mg/dL Blood Gas Lactic Acid, Venous Result Value Ref Range POCT Lactate, Venous 4.0 (HH) 0.4 - 2.0 mmol/L Renal Function Panel Result Value Ref Range Glucose 1,079 (HH) 74 - 99 mg/dL Sodium 122 (L) 136 - 145 mmol/L Potassium 5.3 3.5 - 5.3 mmol/L Chloride 81 (L) 98 - 107 mmol/L Bicarbonate 15 (L) 21 - 32 mmol/L Anion Gap 31 (H) 10 - 20 mmol/L Urea Nitrogen 9 6 - 23 mg/dL Creatinine 1.18 (H) 0.50 - 1.05 mg/dL eGFR 62 >60 mL/min/1.73m*2 Calcium 8.8 8.6 - 10.6 mg/dL Phosphorus 4.5 2.5 - 4.9 mg/dL Albumin 2.7 (L) 3.4 - 5.0 g/dL CBC Result Value Ref Range WBC 19.1 (H) 4.4 - 11.3 x10*3/uL nRBC 0.1 (H) 0.0 - 0.0 /100 WBCs RBC 3.14 (L) 4.00 - 5.20 x10*6/uL Hemoglobin 9.3 (L) 12.0 - 16.0 g/dL Hematocrit 30.4 (L) 36.0 - 46.0 % MCV 97 80 - 100 fL MCH 29.6 26.0 - 34.0 pg MCHC 30.6 (L) 32.0 - 36.0 g/dL RDW 15.0 (H) 11.5 - 14.5 % Platelets 1,455 (H) 150 - 450 x10*3/uL Magnesium Result Value Ref Range Magnesium 2.05 1.60 - 2.40 mg/dL Calcium, Ionized Result Value Ref Range POCT Calcium, Ionized 1.21 1.1 - 1.33 mmol/L Beta Hydroxybutyrate Result Value Ref Range Beta-Hydroxybutyrate 7.34 (H) 0.02 - 0.27 mmol/L POCT GLUCOSE Result Value Ref Range POCT Glucose >600 (H) 74 - 99 mg/dL Blood Culture Specimen: Peripheral Venipuncture; Blood culture Result Value Ref Range Blood Culture Loaded on Instrument - Culture in progress Blood Culture Specimen: Peripheral Venipuncture; Blood culture Result Value Ref Range Blood Culture Loaded on Instrument - Culture in progress Blood Gas Venous Full Panel Result Value Ref Range POCT pH, Venous 7.35 7.33 - 7.43 pH POCT pCO2, Venous 44 41 - 51 mm Hg POCT pO2, Venous 44 35 - 45 mm Hg POCT SO2, Venous 71 45 - 75 % POCT Oxy Hemoglobin, Venous 69.4 45.0 - 75.0 % POCT Hematocrit Calculated, Venous 29.0 (L) 36.0 - 46.0 % POCT Sodium, Venous 127 (L) 136 - 145 mmol/L POCT Potassium, Venous 4.3 3.5 - 5.3 mmol/L POCT Chloride, Venous 87 (L) 98 - 107 mmol/L POCT Ionized Calicum, Venous 1.30 1.10 - 1.33 mmol/L POCT Glucose, Venous >685 (HH) 74 - 99 mg/dL POCT Lactate, Venous 4.7 (HH) 0.4 - 2.0 mmol/L POCT Base Excess, Venous -1.4 -2.0 - 3.0 mmol/L POCT HCO3 Calculated, Venous 24.3 22.0 - 26.0 mmol/L POCT Hemoglobin, Venous 9.8 (L) 12.0 - 16.0 g/dL POCT Anion Gap, Venous 20.0 10.0 - 25.0 mmol/L Patient Temperature 37.0 degrees Celsius FiO2 21 % Renal Function Panel Result Value Ref Range Glucose 622 (HH) 74 - 99 mg/dL Sodium 127 (L) 136 - 145 mmol/L Potassium 4.5 3.5 - 5.3 mmol/L Chloride 87 (L) 98 - 107 mmol/L Bicarbonate 23 21 - 32 mmol/L Anion Gap 22 (H) 10 - 20 mmol/L Urea Nitrogen 11 6 - 23 mg/dL Creatinine 1.02 0.50 - 1.05 mg/dL eGFR 74 >60 mL/min/1.73m*2 Calcium 8.9 8.6 - 10.6 mg/dL Phosphorus 3.7 2.5 - 4.9 mg/dL Albumin 2.7 (L) 3.4 - 5.0 g/dL Blood Gas Lactic Acid, Venous Result Value Ref Range POCT Lactate, Venous 3.2 (H) 0.4 - 2.0 mmol/L Blood Gas Venous Full Panel Result Value Ref Range POCT pH, Venous 7.41 7.33 - 7.43 pH POCT pCO2, Venous 46 41 - 51 mm Hg POCT pO2, Venous 54 (H) 35 - 45 mm Hg POCT SO2, Venous 86 (H) 45 - 75 % POCT Oxy Hemoglobin, Venous 84.6 (H) 45.0 - 75.0 % POCT Hematocrit Calculated, Venous 28.0 (L) 36.0 - 46.0 % POCT Sodium, Venous 129 (L) 136 - 145 mmol/L POCT Potassium, Venous 4.1 3.5 - 5.3 mmol/L POCT Chloride, Venous 91 (L) 98 - 107 mmol/L POCT Ionized Calicum, Venous 1.31 1.10 - 1.33 mmol/L POCT Glucose, Venous 629 (HH) 74 - 99 mg/dL POCT Lactate, Venous 3.2 (H) 0.4 - 2.0 mmol/L POCT Base Excess, Venous 4.0 (H) -2.0 - 3.0 mmol/L POCT HCO3 Calculated, Venous 29.2 (H) 22.0 - 26.0 mmol/L POCT Hemoglobin, Venous 9.3 (L) 12.0 - 16.0 g/dL POCT Anion Gap, Venous 13.0 10.0 - 25.0 mmol/L Patient Temperature 37.0 degrees Celsius FiO2 21 % POCT GLUCOSE Result Value Ref Range POCT Glucose 444 (H) 74 - 99 mg/dL POCT GLUCOSE Result Value Ref Range POCT Glucose 319 (H) 74 - 99 mg/dL POCT GLUCOSE Result Value Ref Range POCT Glucose 269 (H) 74 - 99 mg/dL POCT GLUCOSE Result Value Ref Range POCT Glucose 126 (H) 74 - 99 mg/dL Blood Gas Venous Full Panel Result Value Ref Range POCT pH, Venous 7.41 7.33 - 7.43 pH POCT pCO2, Venous 54 (H) 41 - 51 mm Hg POCT pO2, Venous 28 (L) 35 - 45 mm Hg POCT SO2, Venous 41 (L) 45 - 75 % POCT Oxy Hemoglobin, Venous 40.8 (L) 45.0 - 75.0 % POCT Hematocrit Calculated, Venous 26.0 (L) 36.0 - 46.0 % POCT Sodium, Venous 134 (L) 136 - 145 mmol/L POCT Potassium, Venous 3.9 3.5 - 5.3 mmol/L POCT Chloride, Venous 98 98 - 107 mmol/L POCT Ionized Calicum, Venous 1.29 1.10 - 1.33 mmol/L POCT Glucose, Venous 131 (H) 74 - 99 mg/dL POCT Lactate, Venous 3.3 (H) 0.4 - 2.0 mmol/L POCT Base Excess, Venous 8.4 (H) -2.0 - 3.0 mmol/L POCT HCO3 Calculated, Venous 34.2 (H) 22.0 - 26.0 mmol/L POCT Hemoglobin, Venous 8.6 (L) 12.0 - 16.0 g/dL POCT Anion Gap, Venous 6.0 (L) 10.0 - 25.0 mmol/L Patient Temperature 37.0 degrees Celsius FiO2 21 % Renal Function Panel Result Value Ref Range Glucose 120 (H) 74 - 99 mg/dL Sodium 135 (L) 136 - 145 mmol/L Potassium 4.9 3.5 - 5.3 mmol/L Chloride 96 (L) 98 - 107 mmol/L Bicarbonate 31 21 - 32 mmol/L Anion Gap 13 10 - 20 mmol/L Urea Nitrogen 12 6 - 23 mg/dL Creatinine 0.80 0.50 - 1.05 mg/dL eGFR >90 >60 mL/min/1.73m*2 Calcium 8.9 8.6 - 10.6 mg/dL Phosphorus 2.5 2.5 - 4.9 mg/dL Albumin 2.4 (L) 3.4 - 5.0 g/dL POCT GLUCOSE Result Value Ref Range POCT Glucose 123 (H) 74 - 99 mg/dL POCT GLUCOSE Result Value Ref Range POCT Glucose 124 (H) 74 - 99 mg/dL 10/31/22 CT ABDOMEN: IMPRESSION: 1. Diffusely decreased hepatic attenuation when compared to prior exam, which may be secondary to differences in phase of contrast, especially given the relatively decreased attenuation of the bilateral kidneys and intra-abdominal structures when compared to prior exam. However, a similar appearance may also be seen in acute steatohepatitis. 2. Persistent fluid-filled loops of large bowel, which again may represent mild colitis. No pneumatosis or obstruction. 3. Postsurgical change of Saurav-en-Y gastric bypass, pancreatectomy, and splenectomy with similar degree of circumferential thickening of the afferent and efferent limbs, not significantly changed when compared to prior exam. 4. Stable to slight decrease in size of fluid collections. No new fluid collection is evident. Assessment/Plan Julieth Gordon is a 37 yo F with PMH of T1DM, Crohn's disease (on Humira), and chronic pancreatitis s/ total pancreatectomy, splenectomy, RNYGJ, and J-tube placement on 10/[address] Burk, admitted with nausea, some vomiting of gastric contents, and ongoing abdominal discomfort. Her post-op course was complicated by a chyle leak. She was started on octreotide (Sandostin LAR, administered 10/26), and went IR lymphagiography and sclerosis on 10/29, after which she was discharged. Patient presented on 10/31 complainig of nausea, vomiting and abdominal pain. Patient was found to have elevated blood glucose 1136 mmol and and a anion gap of 34 consistent with DKA. Patient was started on NS and insulin infusion and will be transfer to the ICU for escalation of treatment. NEURO: No PMH. [facility] A&Ox3; sig. Abd pain. Got 0.4 mg dilaudid 6:45am pt says didn't touch her pain. Gave her Oxy and Tylenol and she responded very well. - Gave 1x Zofran nausea - Ongoing neuro and pain assessments - PRN Oxycodone and Tylenol - d /manny prn Dilaudid - PT/OT consult - Resume home Clonidine, Ativan; Hold for now: Vraylar, Gabapentin, Trazadone - PO Robaxin 500 mg q6h CV: No PMH 11/01: RRR, BP and HR stable - Continuous EKG/abp monitoring - Goal MAP >65 PULM: No significant hx. Arrived to SICU on NC 11/01: Lungs sound clear. Sat 97% room air - Continue to monitor GI: Hx GERD, Crohn's disease (on Humira), and chronic pancreatitis s/ total pancreatectomy, splenectomy, RNYGJ, and J-tube placement on 10/[address] Burk c/charo chyle leak s/p lymphangiography and sclerosis on 10/29 11/01: Sig abdominal pain. CT yesterday persistent fluid-filled loops in large bowel (possible colitis); subhepatic fluid collections. LFTs normal. 11/01: Continues to have diarrhea, underlying Crohn's possible new colitis, hold bowel regimen - Send stool cdiff and pathogen panel - Continue home Pantoprazole 40mg every day - Clear non-glucose containing fluids for now - Pt on cyclic TF at home, consider resuming later today/tomorrow - PPI for GI prophylaxis - Nutrition consult and starting TF per primary team - Ask primary team about continuing Octreotide ENDO: History of T1DM, chronic pancreatitis s/ total pancreatectomy, splenectomy, RNYGJ, and J-tube placement on 10/[address] Bhargavi bhatt/charo chyle leak s/p lymphangiography and sclerosis on 10/29. Now in DKA 11/01 a.m.: Glu 444, AG 17, corrected admission NA was normal 138; this a.m. corrected NA 135; K 4.5 on VBG - q2h VBG - q1h glucose - Insulin gtt 5 U/hr- titrate as needed following DKA protocol - B-Hydroxybutirate- 7.34 - Fluids: -2L LR bolus over 2 hrs - Maintenance fluids now, 7am: 1/2 NS @ 250cc/hr - When BG reaches 250, change to 5% 1/2 NS - Consulting endocrine - Replace K (follow DKA protocol) and electrolytes as needed : Hyperkalemia (6.5 on admission), DKA 11/01: K 4.5 on ABG; corrected admission NA was normal 138; this a.m. corrected NA 135. UOP: 300cc overnight and another 400cc this a.m. - Check renal function panel q4h - Volume resuscitation as needed - Maintain U/O >0.5ml/kg/hr; monitor strict in hat - Strict I/Os in hat - Replete electrolytes, Mg>2, Phos>2.5, ionized Ca>1.10 HEME: Hgb on arrival to the SICU 9.7 11/01: CBC wnl - Check CBC and coags post op and daily - SCDs and Lovenox for DVT prophylaxis - Ongoing monitoring for s/s bleeding ID: Concerns for infection, s/p Saurav-en-Y procedure c/b chyle leak 11/01: WBC 19 (from 9.6), MRSA, blood and urine cltx pending - Start empiric abx Zosyn, vancomycin and fluconazole - Follow-up stool labs (cdiff and path panel) - Temp q4h, wbc daily - Ongoing monitoring for s/s infection - ID consult, appreciate recs - Repeat CT AP w/wo IV contrast showed possible colitis Lines: Midline and 1 PIV 18g Dispo: Admit to ICU. Patient seen and discussed with ICU attending Dr. Chevy Childers MD Vancomycin Dosing by Pharmacy- INITIAL Julieth Spencer is a 37 y.o. year old female who Pharmacy has been consulted for vancomycin dosing for other chyle leak, DKA . Based on the patient's indication and renal status this patient will be dosed based on a goal AUC of 400-600. Renal function is currently declining. Scr 0.69-->1.04. Visit Vitals BP 118/66 (BP Location: Right arm, Patient Position: Lying) Pulse 101 Temp 37.4 C (99.3 F) (Temporal) Resp 18 Lab Results Component Value Date CREATININE 1.04 10/31/2023 CREATININE 0.69 10/29/2023 CREATININE 0.64 10/28/2023 CREATININE 0.83 10/27/2023 Patient weight is No results found for: PTWEIGHT No results found for: CULTURE No intake/output data recorded. @IOTHISSHIFT@ Lab Results Component Value Date PATIENTTEMP 37.0 11/01/2023 PATIENTTEMP 37.0 10/11/2023 PATIENTTEMP 37.0 10/11/2023 Assessment/Plan Patient will not be given a loading dose. Will initiate vancomycin maintenance, a one time dose of 750 mg. This dosing regimen is predicted by [employer] to result in the following pharmacokinetic parameters: <<<<<PASTE [employer] DATA HERE>>>>> Follow-up level will NEED to be ordered on 11/01 at 24h level, dose by level unless clinically indicated sooner. Will continue to monitor renal function daily while on vancomycin and order serum creatinine at least every 48 hours if not already ordered. Follow for continued vancomycin needs, clinical response, and signs/symptoms of toxicity. Fior Watkins PharmD Pharmacy Medication History Review Julieth Spencer is a 37 y.o. female admitted for Dehydration. Pharmacy reviewed the patient's ueitr-in-prufepxnp medications and allergies for accuracy. The list below reflects the updated LINE MOVER list. Comments regarding how patient may be taking medications differently can be found in the Admit Orders Activity Prior to Admission Medications Prescriptions Last Dose Informant Patient Reported? Auvelity 45-105 mg tablet, IR and ER, biphasic at No recent fill history Self Yes Sig: Take 1 tablet by mouth once daily. DULoxetine (Cymbalta) [address] capsule at Patient confirms taking, last fill history 03/14/23 for 90 day supply Self Yes Sig: Take 1 capsule (60 mg) by mouth once daily in the morning. Take before meals. HYDROmorphone 8 mg tablet extended release 24 hr Self Yes Sig: Take 1 tablet by mouth 2 times a day as needed. LORazepam (Ativan) 0.5 mg tablet Self No Sig: Take 1 tablet (0.5 mg) by mouth 4 times a day as needed for anxiety. Vraylar 1.5 mg capsule Self Yes Sig: Take 1 capsule (1.5 mg) by mouth once daily. acetaminophen (Tylenol) 325 mg tablet Self Yes Sig: Take 1-2 tablets (325-650 mg) by mouth every 6 hours if needed (pain). acyclovir (Zovirax) 400 mg tablet at no recent fill history Self Yes Sig: Take 1 tablet (400 mg) by mouth 2 times a day as needed (coldsores). adalimumab (Humira,CF, Pen) 40 mg/0.4 mL pen injector kit pen-injector Self Yes Sig: Inject 1 Pen (40 mg) under the skin. Every Other Week On Sundays alcohol swabs pads, medicated Self No Sig: Apply 5 each topically once daily. Use prior to checking glucose or injecting insulin amoxicillin-pot clavulanate (Augmentin) 875-125 mg tablet Self No Sig: Take 1 tablet by mouth every 12 hours. atomoxetine (Strattera) 60 mg capsule Self Yes Sig: Take 1 capsule (60 mg) by mouth once daily. blood sugar diagnostic (Blood Glucose Test) strip Self No Sig: Use to check glucose 3 times daily, before meals blood-glucose meter misc Self No Sig: Use to check glucose 3 times daily, before meals cholecalciferol (Vitamin D-3) 25 MCG (1000 UT) tablet Self Yes Sig: Take 1 tablet (25 mcg) by mouth once daily. citalopram (CeleXA) 20 mg tablet Self Yes Sig: Take 1 tablet (20 mg) by mouth once daily in the morning. cloNIDine (Catapres) 0.1 mg tablet Self Yes Sig: Take 1 tablet (0.1 mg) by mouth once daily at bedtime. cyanocobalamin, vitamin B-12, (VITAMIN B-12 INJ) Self Yes Sig: Inject as directed. gabapentin (Neurontin) 300 mg capsule at Pt confirms taking, no fill history found Self No Sig: Take 2 capsules (600 mg) by mouth 3 times a day. insulin NPH, Isophane, (HumuLIN N NPH Insulin KwikPen) 100 unit/mL (3 mL) injection at Pt confirms taking, no fill history found Self No Sig: Inject 4 units under the skin once daily every morning with steroid. Remove pen from fridge prior to first use and store at room temperature, do not place back in fridge. Discard after 14 days. insulin glargine (Lantus Solostar U-100 Insulin) 100 unit/mL (3 mL) pen Self No Sig: Inject 3 Units under the skin once daily in the morning. Take as directed per insulin instructions. insulin glargine (Lantus U-100 Insulin) 100 unit/mL injection Self Yes Sig: Inject 20 Units under the skin once every 24 hours. Take as directed per insulin instructions. insulin lispro (Admelog SoloStar U-100 Insulin) 100 unit/mL injection Self No Sig: inject subcutaneous per sliding scale three times daily. Max dose/day 10 units. lancets 30 gauge misc Self No Sig: Use to test blood sugar 3 times a day before meals. loperamide (Imodium A-D) 2 mg tablet Self Yes Sig: Take 2 tablets by mouth initially, followed by 1 tablet after each loose bowel movement if needed. Do not exceed 8 tablets daily mirtazapine (Remeron) 7.5 mg tablet Self No Sig: Take 1 tablet (7.5 mg) by mouth once daily at bedtime. nicotine (Nicoderm CQ) 21 mg/24 hr patch Self No Sig: Place 1 patch on the skin once every 24 hours. Do not start before October 15, 2023. octreotide (SandoSTATIN LAR) 20 mg injection at states this was injected at last inpatient visit Self No Sig: Inject 20 mg into the muscle every 28 (twenty-eight) days. oxyCODONE (Roxicodone) 5 mg immediate release tablet Self No Sig: Take 2 tablets (10 mg) by mouth every 6 hours if needed for severe pain (7 - 10) for up to 7 days. pancrelipase, Jzk-Tiwv-Yxfw, (Creon) 12,000-38,000 -60,000 unit capsule Self No Sig: Take 2 cap(s) 3x day with meals; take 1 cap(s) 3x day with snacks as needed pancrelipase, Xkr-Nhox-Huuc, (Creon) 36,000-114,000- 180,000 unit capsule,delayed release(DR/EC) capsule Self No Sig: Take 2 capsules by mouth 2 times a day with meals. pancrelipase, Nll-Efve-Oaaw, (Creon) 36,000-114,000- 180,000 unit capsule,delayed release(DR/EC) capsule Self No Sig: Take 2 capsules by mouth 2 times a day. pancrelipase, Pcw-Dixd-Xbiv, (Creon) 36,000-114,000- 180,000 unit capsule,delayed release(DR/EC) capsule Self No Sig: Take 1 capsule by mouth if needed for snacks. pantoprazole (ProtoNix) 40 mg EC tablet Self Yes Sig: Take 1 tablet (40 mg) by mouth once daily in the morning. Take before meals. pen needle, diabetic 32 gauge x 5/32 needle Self No Sig: Use to inject insuln 5 times daily promethazine (Phenergan) 25 mg tablet Self Yes Sig: Take 1 tablet (25 mg) by mouth every 6 hours if needed. traZODone (Desyrel) 100 mg tablet Self Yes Sig: Take 2 tablets (200 mg) by mouth once daily at bedtime. Facility-Administered Medications: None The list below reflects the updated allergy list. Please review each documented allergy for additional clarification and justification. Allergies Reviewed by Teresa Delgado RN on 10/31/2023 Severity Reactions Comments Morphine High Other Hallucintations Sulfamethoxazole-trimethoprim High Hives Patient accepts M2B at discharge. Pharmacy has been updated to [facility]. Sources used to complete the med history include Patient Interview - moderate historian, in discomfort during interview, but confirmed no new medication changes since 10/29 discharge Admission MedRec Grid 10/29/23 Discharge Summary OARRS - lorazepam 0.5 mg LF: 10/18/23, #120, 30DS; Hydromorphone 8mg ER LF: 09/19/23, #60, 30DS; oxycodone 5mg IR LF: 10/30/23, #15, 7DS' Oxycodone 15mg IR LF: 10/04/23, #180, 30DS EPIC medication dispense report Below are additional concerns with the patient's LINE MOVER list. Interview was limited due to the patient being in state of discomfort Patient confirms starting Augmentin prescribed at most recent discharge, but unsure how many doses left of therapy Patient confirms taking Auvelity, acyclovir, duloxetine, insulin NPH, and gabapentin, however no recent fill history found Patient stated monthly Octreotide injection was administered while inpatient, before most recent discharge Olivia Smith PharmD Transitions of Care Pharmacist [facility] Please reach out via Secure Chat for questions, or if no response call [employer] inTouch or [employer] documented in this encounter [facility] Work Phone: 11-01-2023 History and physical note History Of Present Illness Julieth Gordon is a 37 yo F with PMH of T1DM, Crohn's disease (on Humira), and chronic pancreatitis s/ total pancreatectomy, splenectomy, RNYGJ, and J-tube placement on 10/[address] Burk, admitted with nausea, some vomiting of gastric contents, and ongoing abdominal discomfort. Her post-op course was complicated by a chyle leak. She was started on octreotide (Sandostin LAR, administered 10/26), and went IR lymphagiography and sclerosis on 10/29, after which she was discharged. Patient presented on 10/31 complainig of nausea, vomiting and abdominal pain. Patient was found to have elevated blood glucose 1136 mmol and and a anion gap of 34 consistent with DKA. Patient was started on NS and insulin infusion and will be transfer to the ICU for escalation of treatment. Past Medical History Past Medical History: Diagnosis Date Anxiety Chronic pancreatitis (CMS/HCC) scheduled for surgery with Bhargavi Acosta on10/04/2023 Crohn's disease ([facility]/HCC) Depression Diabetes mellitus ([facility]/HCC) Type 1 GERD (gastroesophageal reflux disease) Menorrhagia with irregular cycle Surgical History Past Surgical History: Procedure Laterality Date CARPAL TUNNEL RELEASE CHOLECYSTECTOMY COLONOSCOPY OTHER SURGICAL HISTORY 06/29/2021 Gastrointestinal stent placement OTHER SURGICAL HISTORY 06/29/2021 Cholecystectomy OTHER SURGICAL HISTORY 06/29/2021 Colonoscopy OTHER SURGICAL HISTORY 06/29/2021 Esophagogastroduodenoscopy OTHER SURGICAL HISTORY 06/29/2021 Endoscopic retrograde cholangiopancreatography Social History She reports that she quit smoking about 4 months ago. Her smoking use included cigarettes. She has never used smokeless tobacco. She reports current drug use. Drug: Marijuana. She reports that she does not drink alcohol. Family History Family History Problem Relation Name Age of Onset Depression Mother Blood clot Mother Depression Father Allergies Morphine and Sulfamethoxazole-trimethoprim Review of Systems Constitutional: Positive for fatigue. HENT: Negative. Eyes: Negative. Respiratory: Negative. Cardiovascular: Negative. Gastrointestinal: Positive for abdominal pain. Endocrine: Positive for polyuria. Genitourinary: Negative. Neurological: Positive for weakness. Physical Exam Constitutional: Appearance: She is ill-appearing. HENT: Mouth/Throat: Mouth: Mucous membranes are dry. Cardiovascular: Rate and Rhythm: Normal rate and regular rhythm. Pulmonary: Effort: Pulmonary effort is normal. Breath sounds: Normal breath sounds. Abdominal: Tenderness: There is abdominal tenderness. Musculoskeletal: Cervical back: Normal range of motion and neck supple. Skin: General: Skin is dry. Neurological: Mental Status: She is oriented to person, place, and time. Psychiatric: Mood and Affect: Mood normal. Last Recorded Vitals Blood pressure 118/66, pulse 101, temperature 37.4 C (99.3 F), temperature source Temporal, resp. rate 18, height 1.626 m (5' 4 ), weight 47.5 kg (104 lb 11.5 oz), SpO2 100 %. Relevant Results Assessment/Plan Principal Problem: Dehydration 37 yo F with PMH of T1DM, Crohn's disease (on Humira), and chronic pancreatitis s/ total pancreatectomy, splenectomy, RNYGJ, and J-tube placement on 10/[address] Bhargavi bhatt/charo chyle leak s/p lymphangiography and sclerosis on 10/29. Now in suspected DKA, started on insulin drip and NS at [facility]. NEURO: No PMH. Pt arrived to SICU A&Ox3 - Home meds: none - Ongoing neuro and pain assessments - Scheduled tylenol - PRN Dilaudid 0.2 and 0.4 - PT/OT consult CV: No PMH. - Continuous EKG/abp monitoring - Goal MAP >65 PULM: No significant hx. Arrived to SICU on NC - Wean FIO2 as tolerated - Additional pulm toilet prn. - Baseline CXR GI: Hx GERD, Crohn's disease (on Humira), and chronic pancreatitis s/ total pancreatectomy, splenectomy, RNYGJ, and J-tube placement on 10/[address] Bhargavi bhatt/charo chyle leak s/p lymphangiography and sclerosis on 10/29 - Home meds: Pantoprazole - NPO - PPI for GI prophylaxis : Hyperkalemia (6.5 on admission) - LR @ 250 cc/hr - Volume resuscitation as needed - Maintain U/O >0.5ml/kg/hr - Check renal function panel daily - Replete electrolytes, Mg>2, Phos>2.5, ionized Ca>1.10. HEME: Hgb on arrival to the SICU 9.7 - Check CBC and coags post op and daily - SCDs for DVT prophylaxis - Lovenox for DVT prophylaxis - Ongoing monitoring for s/s bleeding ENDO: History of T1DM, chronic pancreatitis s/ total pancreatectomy, splenectomy, RNYGJ, and J-tube placement on 10/[address] Burk c/charo chyle leak s/p lymphangiography and sclerosis on 10/29. Now in suspected DKA - Q2h BG VBG - Insulin gtt 4 U/hr - B-Hydroxybutirate ID: Concerns for infection. - Start empiric abx Zosyn, vancomycin and fluconazole - Blood cultures and urine cultures - temp q4h, wbc daily - ongoing monitoring for s/s infection - ID consult, appreciate recs - Repeat CT AP w/wo IV contrast - IR consult for drain placement if amenable Lines: Midline Dispo: Admit to ICU. Patient seen and discussed with ICU attending Dr. Romaine Borden MD PGY-4 Anesthesiology Critical care medicine [facility] SURGICAL ONCOLOGY AND HEPATOBILIARY SURGERY ADMISSION NOTE CHIEF COMPLAINT: Nausea, fatigue, abdominal discomfort HISTORY OF PRESENT ILLNESS: 37 yo F with T1DM, Crohn's disease (on Humira), and chronic pancreatitis s/ total pancreatectomy, splenectomy, RNYGJ, and J-tube placement on 10/[address] Burk, admitted with nausea, some vomiting of gastric contents, and ongoing abdominal discomfort. Her post-op course was complicated by a chyle leak. She was started on octreotide (Sandostin LAR, administered 10/26), and went IR lymphagiography and sclerosis on 10/29, after which she was discharged. Since then, she has remained fatigued and without an appetite. States she has felt intermittent nausea and occasional vomiting. Also reports epigastric abdominal pain which she says has worsened slightly. Her JACQUELINE drain is flushed daily and continues to put out chyle though the volume is unclear. She denies fevers, chills, SOB, or chest pain. PAST MEDICAL HISTORY: Past Medical History: Diagnosis Date Anxiety Chronic pancreatitis (CMS/HCC) scheduled for surgery with Bhargavi Acosta on10/04/2023 Crohn's disease ([facility]/HCC) Depression Diabetes mellitus ([facility]) Type 1 GERD (gastroesophageal reflux disease) Menorrhagia with irregular cycle PAST SURGICAL HISTORY: Past Surgical History: Procedure Laterality Date CARPAL TUNNEL RELEASE CHOLECYSTECTOMY COLONOSCOPY OTHER SURGICAL HISTORY 06/29/2021 Gastrointestinal stent placement OTHER SURGICAL HISTORY 06/29/2021 Cholecystectomy OTHER SURGICAL HISTORY 06/29/2021 Colonoscopy OTHER SURGICAL HISTORY 06/29/2021 Esophagogastroduodenoscopy OTHER SURGICAL HISTORY 06/29/2021 Endoscopic retrograde cholangiopancreatography SOCIAL HISTORY: Denies tobacco use Prior EtOH Occasional marijuana FAMILY HISTORY: Depression (mother, father) Venous thromboembolism (mother) ALLERGIES: Morphine and Sulfamethoxazole-trimethoprim MEDICATIONS: Medications Prior to Admission Medication Sig Dispense Refill Last Dose acetaminophen (Tylenol) 325 mg tablet Take 1-2 tablets (325-650 mg) by mouth every 6 hours if needed (pain). acyclovir (Zovirax) 400 mg tablet Take 1 tablet (400 mg) by mouth 2 times a day as needed (coldsores). adalimumab (Humira,CF, Pen) 40 mg/0.4 mL pen injector kit pen-injector Inject 1 Pen (40 mg) under the skin. Every Other Week On Sundays alcohol swabs pads, medicated Apply 5 each topically once daily. Use prior to checking glucose or injecting insulin 200 each 11 amoxicillin-pot clavulanate (Augmentin) 875-125 mg tablet Take 1 tablet by mouth every 12 hours. 16 tablet 0 atomoxetine (Strattera) 60 mg capsule Take 1 capsule (60 mg) by mouth once daily. Auvelity 45-105 mg tablet, IR and ER, biphasic Take 1 tablet by mouth once daily. blood sugar diagnostic (Blood Glucose Test) strip Use to check glucose 3 times daily, before meals 100 strip 11 blood-glucose meter misc Use to check glucose 3 times daily, before meals 1 each 0 cholecalciferol (Vitamin D-3) 25 MCG (1000 UT) tablet Take 1 tablet (25 mcg) by mouth once daily. citalopram (CeleXA) 20 mg tablet Take 1 tablet (20 mg) by mouth once daily in the morning. cloNIDine (Catapres) 0.1 mg tablet Take 1 tablet (0.1 mg) by mouth once daily at bedtime. cyanocobalamin, vitamin B-12, (VITAMIN B-12 INJ) Inject as directed. DULoxetine (Cymbalta) [address] capsule Take 1 capsule (60 mg) by mouth once daily in the morning. Take before meals. gabapentin (Neurontin) 300 mg capsule Take 2 capsules (600 mg) by mouth 3 times a day. HYDROmorphone 8 mg tablet extended release 24 hr Take 1 tablet by mouth 2 times a day as needed. insulin glargine (Lantus Solostar U-100 Insulin) 100 unit/mL (3 mL) pen Inject 3 Units under the skin once daily in the morning. Take as directed per insulin instructions. 15 mL 11 insulin glargine (Lantus U-100 Insulin) 100 unit/mL injection Inject 20 Units under the skin once every 24 hours. Take as directed per insulin instructions. insulin lispro (Admelog SoloStar U-100 Insulin) 100 unit/mL injection inject subcutaneous per sliding scale three times daily. Max dose/day 10 units. 15 mL 11 insulin NPH, Isophane, (HumuLIN N NPH Insulin KwikPen) 100 unit/mL (3 mL) injection Inject 4 units under the skin once daily every morning with steroid. Remove pen from fridge prior to first use and store at room temperature, do not place back in fridge. Discard after 14 days. 15 mL 11 lancets 30 gauge [facility] Use to test blood sugar 3 times a day before meals. 100 each 11 loperamide (Imodium A-D) 2 mg tablet Take 2 tablets by mouth initially, followed by 1 tablet after each loose bowel movement if needed. Do not exceed 8 tablets daily LORazepam (Ativan) 0.5 mg tablet Take 1 tablet (0.5 mg) by mouth 4 times a day as needed for anxiety. 30 tablet 0 mirtazapine (Remeron) 7.5 mg tablet Take 1 tablet (7.5 mg) by mouth once daily at bedtime. 30 tablet 0 nicotine (Nicoderm CQ) 21 mg/[address] 1 patch on the skin once every 24 hours. Do not start before October 15, 2023. 30 patch 0 octreotide (SandoSTATIN LAR) 20 mg injection Inject 20 mg into the muscle every 28 (twenty-eight) days. 1 kit 0 oxyCODONE (Roxicodone) 5 mg immediate release tablet Take 2 tablets (10 mg) by mouth every 6 hours if needed for severe pain (7 - 10) for up to 7 days. 15 tablet 0 pancrelipase, Fao-Vurb-Cufq, (Creon) 12,000-38,000 -60,000 unit capsule Take 2 cap(s) 3x day with meals; take 1 cap(s) 3x day with snacks as needed 270 capsule 11 pancrelipase, Mgp-Iksk-Ljiv, (Creon) 36,000-114,000- 180,000 unit capsule,delayed release(DR/EC) capsule Take 2 capsules by mouth 2 times a day with meals. pancrelipase, Mho-Svcl-Duzl, (Creon) 36,000-114,000- 180,000 unit capsule,delayed release(DR/EC) capsule Take 2 capsules by mouth 2 times a day. pancrelipase, Dte-Ppgz-Eabl, (Creon) 36,000-114,000- 180,000 unit capsule,delayed release(DR/EC) capsule Take 1 capsule by mouth if needed for snacks. pantoprazole (ProtoNix) 40 mg EC tablet Take 1 tablet (40 mg) by mouth once daily in the morning. Take before meals. pen needle, diabetic 32 gauge x 5/32 needle Use to inject insuln 5 times daily 200 each 11 promethazine (Phenergan) 25 mg tablet Take 1 tablet (25 mg) by mouth every 6 hours if needed. traZODone (Desyrel) 100 mg tablet Take 2 tablets (200 mg) by mouth once daily at bedtime. Vraylar 1.5 mg capsule Take 1 capsule (1.5 mg) by mouth once daily. REVIEW OF SYSTEMS: 14-pt ROS performed, negative unless otherwise indicated in HPI. VITALS: EXAM: Gen: Non-toxic appearing but fatigued HEENT: Atraumatic, normocephalic Eyes: No scleral icterus Card: RRR Resp: Non-labored breathing on RA Abd: Soft, non-distended, moderately tender to palpation in epigastric region; midline incision well healing Ext: WWP, no swelling of BLE MSK: KAMALA Neuro: AOx3, no gross neurological deficits Psych: Flat affect LABS: No results found for this or any previous visit (from the past 24 hour(s)). IMAGING: None new CT A/P pending ASSESSMENT: 37 yo F with T1DM, Crohn's disease (on Humira), and chronic pancreatitis s/ total pancreatectomy, splenectomy, RNYGJ, and J-tube placement on 10/[address] Burk, course c/b chyle leak, admitted with nausea and ongoing abdominal discomfort ongoing since discharge two days ago. PLAN: - admit to Surgical Oncology - tylenol scheduled, oxycodone prn - admission EKG for QTc - 1L IVF bolus; if unable to obtain IV access, give H2O bolus via J-tube - flush drain BID - CT A/P with IV contrast - start TF this evening (home rate of 30 ml/hr overnight) - NPO for now; ok for oral meds as she tolerates; possible soft diet if CT A/P without concern - zofran prn, phenergan prn - daily Tresiba; NPH when starting TF; SSI - f/u labs - continue course of augmentin (10-day course 10/25-11/03) - home meds: trazadone, mirtazapine, duloxetine, clonidine - lovenox ppx, SCDs d/w Dr. Bhargavi Mcgregor MD General Surgery PGY4 Surgical Oncology - [facility] Service [id number] Overnight Coverage documented in this encounter [facility] Work Phone: 10-28-2023 Miscellaneous Notes Rescheduled for this Virtual If she's getting discharged from the hospital soon, could we please get her a follow up appointment with me DALTON? Next visit 2/23/24 Patient phones requesting refills as follows: Requested Prescriptions Pending Prescriptions Disp Refills oxyCODONE (ROXICODONE) 15 mg immediate release tablet 180 tablet 0 Sig: Take 1 tablet by mouth every 4 hours as needed for pain for up to 30 days. HYDROmorphone (EXALGO) 8 mg ER tablet 60 tablet 0 Sig: Take 1 tablet by mouth two times a day for [address] (PROTONIX) 40 mg tablet 30 tablet 0 Sig: Take 1 tablet by mouth once daily. Please review and advise. Raffi Santiago RN Received call from patient who calls office. Regarding refills for oxycodone 15 mg tablets /Hydromorphone 8 mg tablets and Protonix 40 mg tablets . and patient stated she is currently at Please call [phone] Teresa Carias documented in this encounter [facility] 10-02-2023 Evaluation note Encounter Date Diagnosis Assessment Notes Sep, Acute dehydration (ICD-10 - E86.0) Push fluids, pedialyte if tolerated. ER if unable to hydrate orally. Continue Phenergan as needed for nausea Sep, Type 1 diabetes mellitus with hyperglycemia (ICD-10 - E10.65) Must closely monitor BS and hydrate. Instructed on sipping on water/pedialy te every 10 minutes to maintain adequate fluid intake. ER for hyperglycemia , worsening nausea/diarrh ea Sep, Diarrhea of presumed infectious origin (ICD-10 - R19.7) Instructed on diet: - bland, yogurt, cheese, toast - small frequent feedings - hydrate - avoid juices, milk and tomato sauce Sep, Nausea (ICD-10 - R11.0) Phenergan as needed to maintain adequate nutrition/flu id intake. ER for persistent nausea w/o ability to maintain adequate nutritional/f luid intake [employer] Experience Other 01-11-2024 NoteInterpreted By: Ricardo Gurrola, STUDY: CT PANCREAS PRE OP EVALUATION WITH CONTRAST; 09/25/2023 3:55 pm INDICATION: Signs/Symptoms:pancreatic protocol for evaluation of pancreatitis for surgery treatment; COMPARISON: 03/08/2022 ACCESSION NUMBER(S): [id number] ORDERING CLINICIAN: TRAY BURK TECHNIQUE: Contiguous axial images of the abdomen/pelvis were performed with IV contrast. 75 ml of Omnipaque [address] examinations are performed with 1 or more of the following dose reduction techniques: Automated exposure control, adjustment of mA and/or kv according to patient's size, or use of iterative reconstruction techniques. FINDINGS: LOWER CHEST: Minimal bibasilar atelectasis. The heart is normal in size without pericardial effusion. No pleural effusion is present. Visualized distal esophagus appears normal. ABDOMEN: LIVER: The liver is normal in size without evidence of focal liver lesions. Focal fatty infiltration adjacent to the falciform ligament is again noted. BILE DUCTS: Prominent intrahepatic bile ducts status post cholecystectomy. The common bile duct is mildly dilated measuring 8 mm in diameter similar to prior. GALLBLADDER: The gallbladder is surgically absent. PANCREAS: Diffusely atrophic pancreas with punctate calcifications similar to prior. The pancreatic duct is normal in size measuring up to 2 mm in diameter at the tail. No focal fluid collections. SPLEEN: The spleen is normal in size without focal lesions. ADRENAL GLANDS: Bilateral adrenal glands appear normal. KIDNEYS AND URETERS: The kidneys are normal in size and enhance symmetrically. No hydronephrosis. No urolithiasis. PELVIS: BLADDER: The urinary bladder appears distended without abnormal wall thickening. REPRODUCTIVE ORGANS: No masses seen. BOWEL: The stomach is unremarkable. The small and large bowel are normal in caliber and demonstrate no wall thickening. The appendix appears normal. VESSELS: There is no aneurysmal dilatation of the abdominal aorta. The IVC appears normal. PERITONEUM/RETROPERITONEUM/LYMPH NODES: No free pelvic fluid. No free air. No abdominopelvic lymphadenopathy is present. BONES AND ABDOMINAL WALL: No suspicious osseous lesions are identified. The abdominal wall soft tissues appear normal. [id number] NoteInterpreted By: Ricardo Gurrola, STUDY: CT PANCREAS PRE OP EVALUATION WITH CONTRAST; 09/25/2023 3:55 pm INDICATION: Signs/Symptoms:pancreatic protocol for evaluation of pancreatitis for surgery treatment; COMPARISON: 03/08/2022 ACCESSION NUMBER(S): [id number] ORDERING CLINICIAN: TRAY BURK TECHNIQUE: Contiguous axial images of the abdomen/pelvis were performed with IV contrast. 75 ml of Omnipaque [address] examinations are performed with 1 or more of the following dose reduction techniques: Automated exposure control, adjustment of mA and/or kv according to patient's size, or use of iterative reconstruction techniques. FINDINGS: LOWER CHEST: Minimal bibasilar atelectasis. The heart is normal in size without pericardial effusion. No pleural effusion is present. Visualized distal esophagus appears normal. ABDOMEN: LIVER: The liver is normal in size without evidence of focal liver lesions. Focal fatty infiltration adjacent to the falciform ligament is again noted. BILE DUCTS: Prominent intrahepatic bile ducts status post cholecystectomy. The common bile duct is mildly dilated measuring 8 mm in diameter similar to prior. GALLBLADDER: The gallbladder is surgically absent. PANCREAS: Diffusely atrophic pancreas with punctate calcifications similar to prior. The pancreatic duct is normal in size measuring up to 2 mm in diameter at the tail. No focal fluid collections. SPLEEN: The spleen is normal in size without focal lesions. ADRENAL GLANDS: Bilateral adrenal glands appear normal. KIDNEYS AND URETERS: The kidneys are normal in size and enhance symmetrically. No hydronephrosis. No urolithiasis. PELVIS: BLADDER: The urinary bladder appears distended without abnormal wall thickening. REPRODUCTIVE ORGANS: No masses seen. BOWEL: The stomach is unremarkable. The small and large bowel are normal in caliber and demonstrate no wall thickening. The appendix appears normal. VESSELS: There is no aneurysmal dilatation of the abdominal aorta. The IVC appears normal. PERITONEUM/RETROPERITONEUM/LYMPH NODES: No free pelvic fluid. No free air. No abdominopelvic lymphadenopathy is present. BONES AND ABDOMINAL WALL: No suspicious osseous lesions are identified. The abdominal wall soft tissues appear normal. IMPRESSION: Diffusely atrophic pancreas with punctate calcifications consistent with chronic pancreatitis. Overall no significant change from prior CT scan. MACRO: None Signed by: Ricardo Gurrola 09/26/2023 8:19 AM Dictation workstation: [id number] Comment on above:Order Comment: Pancreatic [id number] NoteHNO ID: [id number] Author: RAFFI SANTIAGO RN Service: ? Author Type: Registered Nurse Type: Progress Notes Filed: 09/25/2023 14:14 Note Text: Palliative Medicine Care Coordination Established Patient Nurse Visit Patient identified by name and : Yes Met with patient in clinic. Discussed Reviewed medications Collaborated with Dr. parekh Nurse encouraged patient to call with any questions/concerns/symptom related issues. Patient confirmed having contact numbers for the office and on-call.[facility]01-10-2024 NoteHNO ID: [id number] Author: RAMOS PAREKH MD Service: ? 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 Palliative care is involved for assistance with pain management; she is a patient from my former practice at [facility]. Subjective Patient is now scheduled for her pancreatectomy with Dr. Tray Burk at on 10/11/2023. Her pain has been better controlled than usual, to the point that she has found herself skipping doses of long-acting hydromorphone with no ill effect noted. She states she has been told she might have a 70% reduction in her pain on a regular basis in the wake of a successful surgery. Per her report, they are not planning to preserve islet cells, as she has type I diabetes. Spoke to Dr. Tray Burk by phone on 09/26. His plan in the post-surgical period will be to discharge her on the regimen that she came in on, with an eye to a possible wean after. He asked if I would be willing to take charge of that wean, to which I agreed. Modified ESAS (Fowler Symptom Assessment Scale) Information Provided By: Patient Pain: Mild Nausea: Mild Loss of Appetite: Mild Constipation: None Shortness of Breath: None Drowsiness: None Tiredness: None Depression: None Anxiety: None How you feel overall: Good Objective ECOG PERFORMANCE STATUS: 0- Fully active, able to carry on all pre-disease performance w/o restriction. PHYSICAL EXAMINATION: Vital signs: BP 111/69 Pulse 84 Temp 36.3 ?C (97.4 ?F) Wt 54.6 kg (120 lb 5 oz) LMP 01/11/2019 SpO2 98% BMI 21.31 kg/m? Last 1 Encounter Temp Readings: Date: Temp: Temp Src: 09/25/2023 36.3 ?C (97.4 ?F) Last 1 Encounter Resp Readings: Date: Resp: 06/06/2022 18 Last 1 Encounter Pulse Readings: Date: Pulse: 09/25/2023 84 Last 1 Encounter BP Readings: Date: BP: 09/25/2023 111/69 General appearance: alert, in no acute distress Head: atraumatic, symmetric Skin: Intact, no rash, no notable lesions Eyes: Anicteric sclera. Extraocular movements are intact. Oropharynx: MMM Respiratory: breathing non-labored and no grunting/flaring/retractions Chest: equal chest rise with normal respiratory effort Abdomen: Non-distended Extremities: No clubbing or cyanosis. No edema. Musculoskeletal: No joint swelling or erythema. Neuro: alert and oriented x3 DATA: Diagnostic tests reviewed for today's visit: Most recent labs and imaging results. CrCl cannot be calculated (Patient's most recent lab result is older than the maximum 180 days allowed.). Opioid Management: Yes Indication for Opioid Prescribing: Chronic, Non-cancer pain ORT-OUD Score: 0 A score of 3 or higher may indicate a higher risk for future development of aberrant drug related behavior or opioid use disorder. Informed consent for chronic opiate therapy obtained and written pain agreement: Initial plan had been to defer to pain management, given that I have opted to continue to dispense her opiate therapy through her pancreatectomy and in the immediate post-op period, patient and I have discussed the terms of the opiate agreement verbally, to which she has agreed Naloxone offered?: No, will discuss at follow up visit Course of treatment, patient's response and adherence to the prescribed treatment plan reviewed, including non-pharmacological and non-opioid treatment modalities? Yes Have any complications or exacerbations of the underlying condition causing the pain been reviewed? Yes How much does pain impede patient?s ability to engage in work or other purposeful activities, interfere with your activities of daily living, physical activity, or quality of your family life and social activities? Significantly Aberrancies in pain panel? No Any aberrant drug related behaviors since last visit? No Rationale for continuing opioid treatment: Improved comfort and function based on an ongoing functional assessment Benefits of Opioid Therapy outweigh risks: Yes Prescribed Morphine Equivalent Daily Dose (MEDD): Yes > 120MEDD Yes, I am certified in Hospice and Palliative Care, Hematology, Medical Oncology or Pain Medicine OARRS Checked: PDMP website checked and validated. All prescriptions have been APPROPRIATELY filled. No suspicious activity was identified. 10/01/2023 by Ramos Parekh MD Urine Screen No results found for: UAMPH , UBARB , UBARB2 , UBENZ , UQBUPRE , UQNORBUP , UCOC2 , UQCANN , UOPI , UOXYC , UPCP , UTHC , THC , UETOH Urine Panel: No results found for: UQCANN , UQBNZL , RWC2ILN , UQAMPH , UQMAMP , UQBUPRE , UQNORBUP (more content not included)...[facility] 09-25-2023 NoteHNO ID: [id number] Author: RAFFI SANTIAGO RN Service: ? Author Type: Registered Nurse Type: Progress Notes Filed: 10/01/2023 10:35 Note Text: Palliative Medicine Care Coordination Established Patient Nurse Visit Patient identified by name and : Yes Met with patient in clinic. Discussed Reviewed medications Collaborated with Dr. parekh Nurse encouraged patient to call with any questions/concerns/symptom related issues. Patient confirmed having contact numbers for the office and on-call.[facility]12-15-2023 NoteHNO ID: [id number] Author: Ramos Parekh MD Service: ? Author Type: Physician Type: Progress Notes Filed: 09/10/2023 3:13 PM Note Text: PALLIATIVE MEDICINE AT HOME PROGRESS NOTE SERVICE DATE: August 30, 2023 IDENTIFICATION AND INTRODUCTION: Julieth Spencer is a 37 year old female This visit took place Virtually; I have communicated my name and active licensure. The patient's identity and physical location were verified at the time of this visit. The patient or their legal claims service representative has been informed of the risks and benefits of -- and alternatives to -- treatment through a remote evaluation and consents to proceed with the evaluation remotely. CHIEF COMPLAINT: No chief complaint on file. PERTINENT MEDICAL HISTORY: Julieth Spencer is a 37 year old female with history of chronic non-alcoholic pancreatitis s/p multiple ERCP procedures. Palliative care is involved for assistance with pain management; she is a patient from my former practice at [facility]. Subjective Patient seen virtually today. She shared that her pain remains well-controlled and that she has no side effects from her medications. She is looking forward to being able to have some quality time with family over the coming holidays. She is hopeful that her upcoming surgery may help improve her overall quality of life. Dr. Tray Dhillon, works out of [facility], will be doing her pancreatectomy Oct 04, 2023. REVIEW OF SYSTEMS: Modified ESAS (Fowler Symptom Assessment Scale) Information Provided By: Patient Pain: Mild, controlled on current regimen Nausea: Mild Loss of Appetite: Mild Constipation: None Shortness of Breath: None Drowsiness: None Tiredness: None Depression: None Anxiety: None How you feel overall: Fair Objective PHYSICAL EXAMINATION: [facility] 01/11/2019 General appearance: alert, in no acute distress Head: atraumatic, symmetric Skin: Intact, no rash, no notable lesions Eyes: Anicteric sclera. Extraocular movements are intact. Oropharynx: MMM Respiratory: breathing non-labored and no grunting/flaring/retractions Chest: equal chest risk with normal respiratory effort Extremities: No clubbing or cyanosis. No edema. Musculoskeletal: No joint swelling or erythema. Neuro: alert and oriented x3 DATA: Diagnostic tests reviewed for today's visit: Most recent labs and imaging results. Creatinine Date Value Ref Range Status 06/09/2022 0.66 0.58 - 0.96 mg/dL Final CrCl cannot be calculated (Patient's most recent lab result is older than the maximum 180 days allowed.). Opioid Management: Yes Indication for Opioid Prescribing: Chronic, Non-cancer pain ORT-OUD Score: 0 A score of 3 or higher may indicate a higher risk for future development of aberrant drug related behavior or opioid use disorder. Informed consent for chronic opiate therapy obtained and written pain agreement: Will need in-person visit for this if possible Naloxone offered?: No, will discuss at follow up visit Course of treatment, patient's response and adherence to the prescribed treatment plan reviewed, including non-pharmacological and non-opioid treatment modalities? Yes Have any complications or exacerbations of the underlying condition causing the pain been reviewed? Yes How much does pain impede patient?s ability to engage in work or other purposeful activities, interfere with your activities of daily living, physical activity, or quality of your family life and social activities? Significantly Aberrancies in pain panel? No Any aberrant drug related behaviors since last visit? No Rationale for continuing opioid treatment: Improved comfort and function based on an ongoing functional assessment Benefits of Opioid Therapy outweigh risks: Yes Prescribed Morphine Equivalent Daily Dose (MEDD): Yes > 120MEDD Yes, I am certified in Hospice and Palliative Care, Hematology, Medical Oncology or Pain Medicine OARRS Checked: PDMP website checked and validated. All prescriptions have been APPROPRIATELY filled. No suspicious activity was identified. 09/10/2023 by Ramos Parekh MD Urine Screen No results found for: UAMPH , UBARB , UBARB2 , UBENZ , UQBUPRE , UQNORBUP , UCOC2 , UQCANN , UOPI , UOXYC , UPCP , UTHC , THC , UETOH Urine Panel: No results found for: UQCANN , UQBNZL , [id number] , UQAMPH , UQMAMP , UQBUPRE , UQNORBUP , UQMTHD , UQEDDP , UQTRAM , UQDTRM , UQFNTL , UQNFTL , UQCODE , UQMORP , UQDCDN , UQHCOD , UQOXYC , UQHMOR , UQOXYM , UQCREA , UQPH , UQSPGR , UQOXID , UQSPQ Assessment AND Plan Julieth Spencer is a 37 year old female with history of chronic non-alcoholic pancreatitis s/p multiple ERCP procedures. Palliative care is involved for assistance with pain management; she is a patient from my former practice at [facility]. Chronic Pancreatitis Chronic Abdominal Pain Nausea and Vomiting P (more content not included)...[facility]12-05-2023 Miscellaneous Notes* Telephone Encounter - Ramos Parekh MD - 08/20/2023 10:28 AM EST Re-sent script to patient's preferred pharmacy. * Telephone Encounter - Neva Bryant - 08/20/2023 9:24 AM EST Julieth is calling stating that her hydromorphone was called into the wrong pharmacy. It needs to be called into [facility]. If you have an questions please call Julieth back at [phone].. Thank you [facility] History of Present illness Narrative* Tray Burk MD - 08/19/2023 2:45 PM EST Subjective Julieth Spencer is a 37 y.o. female. Chronic pancreatits. HPI Her history is well-known to me. See previous notes. In short, she has chronic pancreatitis, originally ED etiology was alcohol. She is not been a smoker or alcohol consumption for a long time. She is pegged the new year as the time to intervene and so we will perform a total pancreatectomy and splenectomy in September 2023. Review of Systems All other systems reviewed and are negative. She does take 15 mg every 4 hours as needed of oxycodone. Social History Socioeconomic History Marital status: Single Spouse name: Not on file Number of children: Not on file Years of education: Not on file Highest education level: Not on file Occupational History Not on file Tobacco Use Smoking status: Former Types: Cigarettes Smokeless tobacco: Never Substance and Sexual Activity Alcohol use: Never Drug use: Yes Types: Marijuana Comment: per patient uses marijuana gummies Sexual activity: Not on file Other Topics Concern Not on file Social History Narrative Not on file Social Determinants of Health Financial Resource Strain: Not on file Food Insecurity: Not on file Transportation Needs: Not on file Physical Activity: Not on file Stress: Not on file Social Connections: Not on file Intimate Partner Violence: Not on file Housing Stability: Not on file Current Outpatient Medications on File Prior to Visit Medication Sig Dispense Refill acetaminophen (Tylenol) 325 mg tablet Take by mouth every 6 hours. acyclovir (Zovirax) 400 mg tablet Take 1 tablet (400 mg) by mouth twice a day. adalimumab (Humira,CF, Pen) 40 mg/0.4 mL pen injector kit pen-injector INJECT ONE PEN EVERY OTHER WEEK atomoxetine (Strattera) 60 mg capsule Take 1 capsule (60 mg) by mouth once daily. Auvelity 45-105 mg tablet, IR and ER, biphasic Take 1 tablet by mouth once daily. busPIRone (Buspar) 15 mg tablet Take 1 tablet (15 mg) by mouth 2 times a day. cholecalciferol (Vitamin D-3) 25 MCG (1000 UT) tablet Take 1 tablet (25 mcg) by mouth once daily. cloNIDine (Catapres) 0.1 mg tablet Take 1 tablet (0.1 mg) by mouth once daily at bedtime. DULoxetine (Cymbalta) [address] capsule Take 1 capsule (60 mg) by mouth once daily in the morning. Take before meals. gabapentin (Neurontin) 600 mg tablet Take 1 tablet (600 mg) by mouth 3 times a day. HYDROmorphone 8 mg tablet extended release 24 hr Take 1 tablet by mouth 2 times a day. insulin lispro (HumaLOG) 100 unit/mL injection per insulin pump loperamide (Imodium A-D) 2 mg tablet TAKE 2 TABLETS BY MOUTH INITIALLY, FOLLOWED BY 1 TABLET AFTER EACH LOOSE BOWEL MOVEMENT. DO NOT EXCEED 8 TABLETS/DAY. LORazepam (Ativan) 0.5 mg tablet Take 1 tablet (0.5 mg) by mouth 2 times a day as needed. mirtazapine (Remeron) 7.5 mg tablet Take 1 tablet (7.5 mg) by mouth once daily at bedtime. nicotine (Nicoderm CQ) 21 mg/24 hr patch apply 1 patch to CLEAN, DRY, AND INTACT SKIN REMOVE AND REPLACE every 24 hours oxyCODONE (Roxicodone) 15 mg immediate release tablet Take 1 tablet (15 mg) by mouth every 4 hours if needed. oxyCODONE (Roxicodone) 5 mg immediate release tablet Take 1 tablet (5 mg) by mouth every 6 hours ifneeded. pancrelipase, Bqv-Iphr-Jura, (Creon) 12,000-38,000 -60,000 unit capsule Please take 1 capsule by mouth with each meal three times a day pancrelipase, Hab-Nwfh-Rfvp, (Creon) 36,000-114,000- 180,000 unit capsule,delayed release(DR/EC) capsule TAKE 1 CAPSULE 3 TIMES DAILY WITH MEALS BY MOUTH pantoprazole (ProtoNix) 40 mg EC tablet Take 1 tablet (40 mg) by mouth once daily in the morning. Take before meals. promethazine (Phenergan) 12.5 mg tablet Take 1 tablet (12.5 mg) by mouth every 6 hours if needed. promethazine (Phenergan) 25 mg tablet Take 1 tablet (25 mg) by mouth every 6 hours if needed. sucralfate (Carafate) 1 gram tablet TAKE 1 TABLET 4 TIMES DAILY, BEFORE MEALS AND AT BEDTIME BY MOUTH traZODone (Desyrel) 100 mg tablet Take 2 tablets (200 mg) by mouth once daily at bedtime. Vraylar 1.5 mg capsule Take 1 capsule (1.5 mg) by mouth once daily. No current facility-administered medications on file prior to visit. No family history on file. No past medical history on file. Past Surgical History: Procedure Laterality Date OTHER SURGICAL HISTORY 06/29/2021 Gastrointestinal stent placement OTHER SURGICAL HISTORY 06/29/2021 Cholecystectomy OTHER SURGICAL HISTORY 06/29/2021 Colonoscopy OTHER SURGICAL HISTORY 06/29/2021 Esophagogastroduodenoscopy OTHER SURGICAL HISTORY 06/29/2021 Endoscopic retrograde cholangiopancreatography Objective BP (!) 134/93 (BP Location: Right arm, Patient Position: Sitting, BP Cuff Size: Adult) Pulse 84 Temp 36.7 C (98.1 F) (Tympanic) Resp 18 Wt 52.4 kg (115 lb 8.3 oz) BMI 20.46 kg/m Physical Exam General: in no acute distress, comfortable Eyes: no pallor or scleral icterus Ears, nose, throat: no oropharyngeal edema Cardiovascular: normal rate, regular rhythm Respiratory: clear breath sounds, symmetric, no wheezes Gastrointestinal: abdomen soft, non-tender, no masses Musculoskeletal: normal gate, no deformities Integumentary: no concerning lesions, no jaundice Lymphatic: no abnormally palpable lymph nodes Neurologic: no gross deficits Psychiatric: cognition intact, mood appropriate RESULTS Imaging is from February 2023. We will repeat the CT scan soon. However, what I have seen is a calcifican atrophic gland with no visceral vessel involvement. Assessment/Plan In summary, the patient has chronic pancreatitis. We have obtained consent for total pancreatectomyand splenectomy. She understands the procedure the risks and also the expected hospital course. The risks of the operation include heart attack, stroke, , infection, bleeding, injury to adjacent structures, and many others. I answered all of her questions today to the best my ability. She signed consent today. This note was created by dictation. Please excuse the typos. Tray Burk MD documented in this [facility] Work Phone: [phone]) 783-660411-17-2023 NoteHNO ID: [id number] Author: Ramos Parekh MD Service: ? Author Type: Physician Type: Progress Notes Filed: 08/09/2023 5:02 PM Note Text: PALLIATIVE MEDICINE AT HOME PROGRESS NOTE SERVICE DATE: August 02, 2023 IDENTIFICATION AND INTRODUCTION: Julieth Spencer is a 37 year old female This visit took place Virtually; I have communicated my name and active licensure. The patient's identity and physical location were verified at the time of this visit. The patient or their legal claims service representative has been informed of the risks and benefits of -- and alternatives to -- treatment through a remote evaluation and consents to proceed with the evaluation remotely. CHIEF COMPLAINT: Patient presents with: Follow Up PERTINENT MEDICAL HISTORY: Julieth Spencer is a 37 year old female with history of chronic non-alcoholic pancreatitis s/p multiple ERCP procedures. Palliative care is involved for assistance with pain management; she is a patient from my former practice at [facility]. Subjective Hospitalization in June for acute on chronic pancreatitis. Patient has now made the decision to proceed with pancreatectomy, which is currently scheduled for September. Feels like she has been able to make that decision on her own terms. Has a couple of questions: 1) Was unable to see pain management due to physician cancellation first time, hospitalization second time. Wonders if she will need a hospital bed after surgery. 2) Wonders about home care after discharge from hospital after surgery. Due to difficulty establishing with new pain management physician, and given that she will be having pancreatectomy in September, she asks if our team can follow her for pain management until that point. REVIEW OF SYSTEMS: Modified ESAS (Fowler Symptom Assessment Scale) Information Provided By: Patient Pain: Mild (controlled on current regimen) Nausea: Moderate Loss of Appetite: Mild Constipation: None Shortness of Breath: None Drowsiness: None Tiredness: None Depression: None Anxiety: None How you feel overall: Fair Objective PHYSICAL EXAMINATION: [facility] 01/11/2019 General appearance: alert, in no acute distress Head: atraumatic, symmetric Skin: Intact, no rash, no notable lesions Eyes: Anicteric sclera. Extraocular movements are intact. Oropharynx: MMM Respiratory: breathing non-labored and no grunting/flaring/retractions Chest: equal chest risk with normal respiratory effort Abdomen: Abdomen soft, non-tender. Extremities: No clubbing or cyanosis. No edema. Musculoskeletal: No joint swelling or erythema. Neuro: alert and oriented x3 DATA: Diagnostic tests reviewed for today's visit: Most recent labs and imaging results. Creatinine Date Value Ref Range Status 06/09/2022 0.66 0.58 - 0.96 mg/dL Final CrCl cannot be calculated (Patient's most recent lab result is older than the maximum 180 days allowed.). Opioid Management: Indication for Opioid Prescribing: Chronic, Non-cancer pain ORT-OUD Score: 0 A score of 3 or higher may indicate a higher risk for future development of aberrant drug related behavior or opioid use disorder. Informed consent for chronic opiate therapy obtained and written pain agreement: Will complete at next visit Naloxone offered?: No, will discuss at follow up visit Course of treatment, patient's response and adherence to the prescribed treatment plan reviewed, including non-pharmacological and non-opioid treatment modalities? Yes Have any complications or exacerbations of the underlying condition causing the pain been reviewed? Yes How much does pain impede patient?s ability to engage in work or other purposeful activities, interfere with your activities of daily living, physical activity, or quality of your family life and social activities? Significantly Aberrancies in pain panel? Pending Any aberrant drug related behaviors since last visit? No Rationale for continuing opioid treatment: Improved comfort and function based on an ongoing functional assessment Benefits of Opioid Therapy outweigh risks: Yes Prescribed Morphine Equivalent Daily Dose (MEDD): Yes > 120MEDD Yes, I am certified in Hospice and Palliative Care, Hematology, Medical Oncology or Pain Medicine OARRS Checked: PDMP website checked and validated. All prescriptions have been APPROPRIATELY filled. No suspicious activity was identified. 08/09/2023 by Ramos Parekh MD Urine Screen No results found for: UAMPH , UBARB , UBARB2 , UBENZ , UQBUPRE , UQNORBUP , UCOC2 , UQCANN , UOPI , UOXYC , UPCP , UTHC , THC , UETOH Urine Panel: No results found for: UQCANN , UQBNZL , ZRX8QVG , UQAMPH , UQMAMP , UQBUPRE , UQNORBUP , UQMTHD , UQEDDP , UQTRAM , UQDTRM , UQFNTL , UQNFTL , UQCODE , UQMORP , UQDCDN , UQHCOD , UQOXYC , UQHMOR , UQOXYM , UQCREA , UQPH , UQSPGR , UQOXID , UQSPQ Assessment AND Plan (more content not included)...[facility]11-17-2023 Miscellaneous Notes* Telephone Encounter - Erin Oleary RN - 08/02/2023 3:00 PM EST The following approved medication requests have been transmitted electronically. Requested Prescriptions Signed Prescriptions Disp Refills oxyCODONE (ROXICODONE) 15 mg immediate release tablet 180 tablet 0 Sig: Take 1 tablet by mouth every 4 hours as needed for pain for up to 30 days. Authorizing Provider: RAMOS PAREKH HYDROmorphone (EXALGO) 8 mg ER tablet 60 tablet 0 Sig: Take 1 tablet by mouth two times a day for 30 days. Authorizing Provider: RAMOS PAREKH RN * Telephone Encounter - Erin Oleary RN - 08/01/2023 2:22 PM EST Patient phones requesting refills as follows: Both last ordered 07/09/23l Last pall med visit on 05/17/23 Future appt 08/02/23 Requested Prescriptions Pending Prescriptions Disp Refills oxyCODONE (ROXICODONE) 15 mg immediate release tablet 180 tablet 0 Sig: Take 1 tablet by mouth every 4 hours as needed for pain for up to 30 days. HYDROmorphone (EXALGO) 8 mg ER tablet 60 tablet 0 Sig: Take 1 tablet by mouth two times a day for 30 days. Please review and advise. Erin Oleary RN * Telephone Encounter - Mary Patient Lead Sql DeveloperTorito - 08/01/2023 2:14 PM EST Patient needs refill of oxycodone & hydroporphone Patient has been identified by name and date of : Yes Admin number provided for next call: No RX INSTRUCTIONS: Patient requesting a call when RX is approved and sent to the pharmacy. Please call patient at: [phone] Patient scheduled virtual follow up for 08/02 with to discuss updates in health, pancreasremoval discussion Pharmacy verified:Yes , [facility] [place] Mary Patient Lead Sql Developer Electronically signed by [facility] Patient Lead Sql DeveloperTorito at 08/01/2023 2:19 PM EST [facility]* Encounter Date Diagnosis Assessment Notes Treatment Notes Treatment Clinical Notes Jul, Type 1 diabetes mellitus with hyperglycemia (ICD-10 - E10.65) This patient is following a comprehensive diabetic treatment plan. They are checking their feet daily for calluses and nonhealing ulcers. They are being seen for yearly dilated eye examinations. Goals: SBP less than 130, LDL less than 100, FBS less than 140, A1C less than 7%. They are checking their BS daily, will which are reviewed at the office visit. Continue regular routine monitoring of A1C,] Microalbumin, Dilated eye exam and Foot exam Jul, Type 1 diabetes mellitus with diabetic polyneuropathy (ICD-10 - E10.42) Inspect feet daily for cuts and calluses.Recommend diabetic shoes and inserts to prevent callus formation.Fall precautions. Jul, Gastroesophageal reflux disease with esophagitis without hemorrhage (ICD-10 - K21.00) Diet instructions: Smaller portions, avoid eating and laying flat, avoid eating or drinking prior to bedtime. Weight loss. Jul, Generalized anxiety disorder (ICD-10 - F41.1) Healthy diet and exercise. Keep active No change in medical therapy Jul, Crohn's disease of small intestine with other complication (ICD-10 - K50.018) In remission, continue Humira f/u GI Monitor for ongoing weight loss. Monitor for anemia and vitamin deficiency Jul, Vitamin B12 deficien cy (ICD-10 - E53.8) COntinue replacement. 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 Appt. set w/ Dr. 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 female with chronic pancreatitis. HPI The patient is well-known to me. We have had visits before for her chronic pancreatitis. This is longstanding and alcohol related. She has not had a drop of alcohol for years. She also no longer smokes. She is 37 years old. She recently was hospitalized at [facility] for an episode of chronic pancreatitis. She also has inflammatory bowel disease but has never had abdominal surgery other than a cholecystectomy. Her weight has been stable. She has been eating well but she continues to have pain every day including occasional hospitalizations. She takes Dilaudid almost daily. Review of Systems Constitutional: Negative. HENT: Negative. Eyes: Negative. Respiratory: Negative. Cardiovascular: Negative. Gastrointestinal: Negative. Negative for abdominal distention, abdominal pain, diarrhea and nausea. Endocrine: Negative. Genitourinary: Negative. Musculoskeletal: Negative. Allergic/Immunologic: Negative. Neurological: Negative. Hematological: Negative. Psychiatric/Behavioral: Negative. All other systems reviewed and are negative. Social History Socioeconomic History Marital status: Single Spouse name: Not on file Number of children: Not on file Years of education: Not on file Highest education level: Not on file Occupational History Not on file Tobacco Use Smoking status: Not on file Smokeless tobacco: Not on file Substance and Sexual Activity Alcohol use: Not on file Drug use: Not on file Sexual activity: Not on file Other Topics Concern Not on file Social History Narrative Not on file Social Determinants of Health Financial Resource Strain: Not on file Food Insecurity: Not on file Transportation Needs: Not on file Physical Activity: Not on file Stress: Not on file Social Connections: Not on file Intimate Partner Violence: Not on file Housing Stability: Not on file Current Outpatient Medications on File Prior to Visit Medication Sig Dispense Refill acetaminophen (Tylenol) 325 mg tablet Take by mouth every 6 hours. acyclovir (Zovirax) 400 mg tablet Take 1 tablet (400 mg) by mouth twice a day. adalimumab (Humira,CF, Pen) 40 mg/0.4 mL pen injector kit pen-injector INJECT ONE PEN EVERY OTHER WEEK atomoxetine (Strattera) 60 mg capsule Take 1 capsule (60 mg) by mouth once daily. Auvelity 45-105 mg tablet, IR and ER, biphasic Take 1 tablet by mouth once daily. busPIRone (Buspar) 15 mg tablet Take 1 tablet (15 mg) by mouth 2 times a day. cholecalciferol (Vitamin D-3) 25 MCG (1000 UT) tablet Take 1 tablet (25 mcg) by mouth once daily. cloNIDine (Catapres) 0.1 mg tablet Take 1 tablet (0.1 mg) by mouth once daily at bedtime. DULoxetine (Cymbalta) [address] capsule Take 1 capsule (60 mg) by mouth once daily in the morning. Take before meals. gabapentin (Neurontin) 600 mg tablet Take 1 tablet (600 mg) by mouth 3 times a day. HYDROmorphone 8 mg tablet extended release 24 hr Take 1 tablet by mouth 2 times a day. insulin lispro (HumaLOG) 100 unit/mL injection per insulin pump loperamide (Imodium A-D) 2 mg tablet TAKE 2 TABLETS BY MOUTH INITIALLY, FOLLOWED BY 1 TABLET AFTER EACH LOOSE BOWEL MOVEMENT. DO NOT EXCEED 8 TABLETS/DAY. LORazepam (Ativan) 0.5 mg tablet Take 1 tablet (0.5 mg) by mouth 2 times a day as needed. mirtazapine (Remeron) 7.5 mg tablet Take 1 tablet (7.5 mg) by mouth once daily at bedtime. nicotine (Nicoderm CQ) 21 mg/24 hr patch apply 1 patch to CLEAN, DRY, AND INTACT SKIN REMOVE AND REPLACE every 24 hours oxyCODONE (Roxicodone) 15 mg immediate release tablet Take 1 tablet (15 mg) by mouth every 4 hours if needed. oxyCODONE (Roxicodone) 5 mg immediate release tablet Take 1 tablet (5 mg) by mouth every 6 hours ifneeded. pancrelipase, Cre-Kymj-Dxxm, (Creon) 12,000-38,000 -60,000 unit capsule Please take 1 capsule by mouth with each meal three times a day pancrelipase, Aiz-Qipv-Cole, (Creon) 36,000-114,000- 180,000 unit capsule,delayed release(DR/EC) capsule TAKE 1 CAPSULE 3 TIMES DAILY WITH MEALS BY MOUTH pantoprazole (ProtoNix) 40 mg EC tablet Take 1 tablet (40 mg) by mouth once daily in the morning. Take before meals. promethazine (Phenergan) 12.5 mg tablet Take 1 tablet (12.5 mg) by mouth every 6 hours if needed. promethazine (Phenergan) 25 mg tablet Take 1 tablet (25 mg) by mouth every 6 hours if needed. sucralfate (Carafate) 1 gram tablet TAKE 1 TABLET 4 TIMES DAILY, BEFORE MEALS AND AT BEDTIME BY MOUTH traZODone (Desyrel) 100 mg tablet Take 2 tablets (200 mg) by mouth once daily at bedtime. Vraylar 1.5 mg capsule Take 1 capsule (1.5 mg) by mouth once daily. No current facility-administered medications on file prior to visit. No family history on file. History reviewed. No pertinent past medical history. Past Surgical History: Procedure Laterality Date OTHER SURGICAL HISTORY 06/29/2021 Gastrointestinal stent placement OTHER SURGICAL HISTORY 06/29/2021 Cholecystectomy OTHER SURGICAL HISTORY 06/29/2021 Colonoscopy OTHER SURGICAL HISTORY 06/29/2021 Esophagogastroduodenoscopy OTHER SURGICAL HISTORY 06/29/2021 Endoscopic retrograde cholangiopancreatography Objective BP (!) 138/94 (BP Location: Left arm, Patient Position: Sitting) Pulse 106 Temp 36.5 C (97.7 F)(Temporal) Resp 18 Wt 53.9 kg (118 lb 13.3 oz) SpO2 96% BMI 21.05 kg/m Physical Exam General: in no acute distress, comfortable Eyes: no pallor or scleral icterus Ears, nose, throat: no oropharyngeal edema Cardiovascular: normal rate, regular rhythm Respiratory: clear breath sounds, symmetric, no wheezes Gastrointestinal: abdomen soft, non-tender, no masses Musculoskeletal: normal gate, no deformities Integumentary: no concerning lesions, no jaundice Lymphatic: no abnormally palpable lymph nodes Neurologic: no gross deficits Psychiatric: cognition intact, mood appropriate RESULTS Her most recent CT scan shows some acute inflammation compared to a prior CT scan from a year ago. There are no fluid collections. There are calcifications throughout the gland. Her previous endoscopic ultrasound also was consistent with severe chronic pancreatitis. She has a irregular fibrotic pancreatic duct. There is atrophy. Assessment/Plan In summary, the patient is in stable health the lives in chronic pain. We discussed the idea of doing a total pancreatectomy. She is a type I diabetic. We will proceed with that in September. We discussed the risks of the operation and the alternatives. She wishes to proceed. We will do that in mid September as stated. She is here today with her mother. This note was created by dictation. Please excuse the typos. Tray Burk MD documented in this [facility] Work Phone: [phone] 622-841411-04-2023 Discharge summary Author [facility] July 20, 2023 2:42pm Note Date/Time July 20, 2023 2 :42pm [facility] [address] [place] [address] Discharge Summary Signed Patient: Julieth Spencer MR#: [id number] : 1985 Acct:[id number] Age/Sex: 37 / F Adm Date: 3 Loc: N Room: [address] [place] [address]: Allen Borges DO Copies to: DO Allen Delatorre, ~ Providers Date of Discharge: 07/20/23 Discharging Provider: Allen Borges Primary Care Provider: Nat Medina Consults: 07/16/23 02:57 Consult to Gastroenterology Routine 07/17/23 11:50 Consult to Pain Management Routine Discharge Diagnosis (1) Acute on chronic pancreatitis: (2) Nausea & vomiting: (3) Abdominal pain: (4) Type 1 diabetes mellitus: (5) Crohns disease: Final Diagnosis Final Discharge Diagnosis: Acute on chronic pancreatitis Summary Hospital Course Hospital course: 37-year-old female with a PMH of autoimmune pancreatitis, T1DM, Crohn's disease,depression who [facility] with complaints of nausea, vomiting, abdominal pain. Patient seen and examined in the emergency room, resting on the cart quietly. She states that last Saturday she started to feel bad, thought she was catching a bug, had intermittent nausea and vomiting. Saturday, Saturday and Saturday the pain got worse and the nausea and vomiting was worse. Saturday she was not able to take her medications, she would take a sip ofwater with her meds and she would immediately vomit everything back up. She states she usually can take care of herself pretty well at home with not eating very much medications during her flares but this time she could not. She talkedto her physician at that takes care of her pancreatitis and he told her she should come to the emergency room. She also states that she was supposed to have her pancreas removed a couple of times, last time was in November and she decided not to have a major procedure because she can usually control her pancreatitis. She reports left upper quadrant abdominal pain that radiates around to her back and up to her shoulder blades, states sometimes it feels likea spasm and sometimes it is sharp. Makes it difficult to lay flat. Currently rates her pain 8 out of 10. States she quit vaping almost a year ago, does not drink alcohol, eats a gummy every now and then. CT of the abdomen pelvis in the emergency room shows peripancreatic inflammationand a small amount of free fluid concerning for acute pancreatitis, prior cholecystectomy intra and extrahepatic biliary dilatation concerning for biliaryobstruction. Lab work was unremarkable. Lipase was 4. UA concerning for infection, culture is pending. Patient was medicated with 1 L saline bolus, promethazine, Dilaudid and her IV went bad. Oral cephalexin, IM Dilaudid. Central line access is being placed by ER physician after multiple attempts fromthe nursing without success. [facility] care of the hospitalist team for further evaluation and treatment. GI consulted and recommended no interventions and for her to follow up with outpatient GI as scheduled. Pain management consulted and offered a nerve block, but pt already gets these outpatient and did not want it to interfere with her outpatient regimen so she declined. Pt treated with aggressive IVF and her diet was advanced once she was off of IV pain meds. Her home PO pain regimen was restarted and diet advanced and pt tolerated for 24 hours and was medically stable for discharge on 07/20 in stable and improved condition to follow up with her GI and PCP after discharge. Condition Condition at Discharge: Stable Status at Discharge Overall status at discharge: patient is back to baseline Time Spent with Patient Time spent providing/coordinating discharge services (# min): 45 Diagnostic Studies Completed and Pending Studies Pending studies at discharge: 07/21/23 05:00 BMP [Basic Metabolic Panel] [CHEM] IN AM 07/22/23 05:00 BMP [Basic Metabolic Panel] [CHEM] IN AM Labs on day of discharge: 07/20/23 11:44: POC Glucose 179, POC Glucose Comment Glu2: cleaned meter 07/20/23 07:44: POC Glucose 139, POC Glucose Comment Glu2: cleaned meter 07/20/23 05:40: PHA Creatinine Clear 120.29, Sodium 139, Potassium 3.7, Chloride 101, Carbon Dioxide 32.3 H, Anion Gap 9.4, BUN 4 L, Creatinine 0.54 L, Est GFR (CKD- EPI) > 60.0, Glucose 178 H, Calcium 8.8 07/19/23 21:03: POC Glucose 176 07/19/23 16:22: POC Glucose 175 Exam Physical Exam Vital Signs: Temp Pulse Resp BP Pulse Ox O2 Del Method 98.1 F 78 16 135/91 98 Room Air 07/20/23 11:34 07/20/23 11:34 07/20/23 11:34 07/20/23 11:34 07/20/23 11:34 07/20/23 11:43 Narrative: General: Awake and alert. Lying in bed comfortably in no apparent pain/distress HEENT: Normocephalic, atraumatic, trachea midline Respiratory: good inspiratory effort, clear to auscultation, no wheeze, no rhonchi, no crackles Cardiovascular: RRR, normal S1 and S2 Abdominal: soft, non-distended, no tenderness, no rebound, no guarding, +BS Skin: warm, dry, no lesions or rashes MSK: no edema Neurologic: No focal deficits Psych: appropriate affect Discharge Plan Discharge Plan Patient Disposition: Home Activity: No Activity Restriction Diet: Other Comment: GI soft, low fiber Additional Instructions: Follow-up with Pain Management as previously scheduled. Prescriptions: Continued trazodone 100 mg tablet 200 mg PO QHS Rx Instructions: take 1 tablet by mouth every evening insulin glargine [Lantus Solostar U-100 Insulin] 100 unit/mL (3 mL) insulin pen 8 unit SUBCUT QAM Rx Instructions: INJECT 8 UNITS SUBCUTANEOUSLY ONCE DAILY Humira(CF) Pen 40 mg/0.4 mL pen injector kit 40 mg SUBCUT Q2W Rx Instructions: INJECT 40MG SUBCUTANEOUSLY EVERY OTHER WEEK gabapentin [Neurontin] 300 mg capsule 600 mg PO TID Creon 36,000-114,000- 180,000 unit capsule,delayed release(DR/EC) 1 cap PO TID hydromorphone [Dilaudid] 8 mg Tablet 8 mg PO Q8H PRN (Reason: Pain) oxycodone 15 mg tablet 15 mg PO Q4H PRN (Reason: Pain) Patient Comments: take 1 tablet by mouth every 4 hours if needed for pain lorazepam 0.5 mg tablet 0.5 mg PO BID Patient Comments: take 1 tablet by mouth twice a day if needed pantoprazole 40 mg tablet,delayed release (DR/EC) 40 mg PO TID Patient Comments: take 1 tablet by mouth 30 MINUTES before breakfast atomoxetine 60 mg capsule 60 mg PO DAILY Patient Comments: take 1 capsule by mouth once daily mirtazapine 7.5 mg tablet 7.5 mg PO QHS Patient Comments: take 1 tablet by mouth at bedtime Vraylar 1.5 mg capsule 1.5 mg PO DAILY Patient Comments: take 1 capsule by mouth once daily Auvelity 45-105 mg tablet,IR,delayed rel,biphasic PO Patient Comments: take 1 tablet by mouth once daily insulin aspart U-100 [Novolog FlexPen U-100 Insulin] 100 unit/mL (3 mL) Insulin Pen See Protocol subcut TID.WM.HS Qty: 10 0RF Protocol: Corrective Scale #1 (TDI </= 25) Condition: Corrective Scale #1 (TDI <=25) Condition: Dose/Route: Instruction: Condition: Fingerstick Blood Glucose Dose/Route: Insulin Units Condition: 150-199 mg/dl Dose/Route: 1 unit Condition: 200-249 mg/dl Dose/Route: 2 unit Condition: 250-299 mg/dl Dose/Route: 3 unit Condition: 300-349 mg/dl Dose/Route: 4 unit Condition: 350-399 mg/dl Dose/Route: 5 unit Condition: greater than or = 400 mg/dl Dose/Route: 6 unit Instruction: CallProvider Protocol Text: *If the corrective scale dose has been administered within the past 4 hours, do not use corrective scale again unless approved by prescriber* loperamide 2 mg Capsule 2 mg PO BID 30 Days Qty: 60 0RF promethazine 12.5 mg tablet 12.5 mg PO Q6H PRN (Reason: nausea and vomiting) Qty: 30 0RF Rx Instructions: 3 doses during day; last dose no later than 4 hr before bedtime Follow Up: Nat Medina DO [Primary Care Provider] - (Call office on Saturday to schedule follow-up with your Primary Care Provider in 3-5 days) Tray Burk MD [Referring] - 07/22/23 2:00 pm (You have been scheduled for a follow up appointment with a General Surgeron for chronic pancreatitis for the following date and time, please call to reschedule if needed. Your appointment will be at the [place] office located at: [address] [place] [address], 2nd floor [place] [phone]) Documented By: Allen Borges DO 07/20/23 144 0 Signed By: <Electronically signed by Allen Borges DO> 07/20/23 1442 [facility] Work Phone: 1(362) 908-409111-03-2023 History and physical note Author Karl Gant [facility] July 19, 2023 8:04pm Note Date/Time July 16, 2023 2 :04am [facility] EN[facility] [address] [place] [address] Hospitalist H&P Signed Patient: Juileth Spencer MR#: [id number] : 1985 Acct:[id number] Age/Sex: 37 / F Adm Date: 3 Loc: Room: 6U6144-6 Type: ADM IN Attending Dr: Allen Borges DO Copies to: MD Nat Ron,DO Allen Borges, DO Gini Harper, 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~ HPI DATE OF EXAMINATION: 07/16/23 CHIEF COMPLAINT: abd pain, N/V HISTORY OF PRESENT ILLNESS: Ms. Spencer is a 37-year-old female with a PMH of autoimmune pancreatitis, T1DM, Crohn's disease, depression who presented to the emergency room tonight with complaints of nausea, vomiting, abdominal pain. Patient seen and examined in the emergency room, resting on the cart quietly. She states that last Mondayshe started to feel bad, thought she was catching a bug, had intermittent nauseaand vomiting. Saturday, Saturday and Saturday the pain got worse and the nausea andvomiting was worse. Saturday she was not able to take her medications, she would take a sip of water with her meds and she would immediately vomit everything back up. She states she usually can take care of herself pretty well at home with not eating very much medications during her flares but this time she could not. She talked to her physician at that takes care of her pancreatitis and he told her she should come to the emergency room. She also states that she wassupposed to have her pancreas removed a couple of times, last time was in November and she decided not to have a major procedure because she can usually control her pancreatitis. She reports left upper quadrant abdominal pain that radiates around to her back and up to her shoulder blades, states sometimes it feels likea spasm and sometimes it is sharp. Makes it difficult to lay flat. Currently rates her pain 8 out of 10. States she quit vaping almost a year ago, does not drink alcohol, eats a gummy every now and then. CT of the abdomen pelvis in the emergency room shows peripancreatic inflammationand a small amount of free fluid concerning for acute pancreatitis, prior cholecystectomy intra and extrahepatic biliary dilatation concerning for biliaryobstruction. Lab work was unremarkable. Lipase was 4. UA concerning for infection, culture is pending. Patient was medicated with 1 L saline bolus, promethazine, Dilaudid and her IV went bad. Oral cephalexin, IM Dilaudid. Central line access is being placed by ER physician after multiple attempts from the nursing without success. She will be admitted as inpatient to the [facility] floor under the care of the hospitalist team for further evaluation and treatment. Review of Systems Review of Systems Review of systems: A 10 point review of systems was obtained, negative unless noted in the HPI or below. [facility] Medical History (Updated 07/15/23 @ 23:13 by Troy Haile, DO) ADHD (attention deficit hyperactivity disorder) Anxiety Chronic pancreatitis Crohn disease 2007 Depression Diabetes Type 1 diabetes mellitus Surgical History (Updated 07/16/23 @ 02:16 by Gini Harper APRN) History of cholecystectomy History of ERCP Family History Mother Anxiety Grandparent Pancreatic cancer Social History Marital Status: Single Household Members: significant other Housing: house Smoking Status: Former smoker Tobacco Type: e-cigarettes (quit vaping a year ago-2021) Substance Use Type: None Substance Abuse Comment: no alcohol use recently Social History Comments: lives with boyfriend Meds Medications and Allergies Allergies sulfamethoxazole [From Bactrim] Allergy (Verified 07/16/23 02:50) Rash trimethoprim [From Bactrim] Allergy (Verified 07/16/23 02:50) Rash morphine Adverse Reaction (Verified 07/16/23 02:50) Dizziness ondansetron [From Zofran] Adverse Reaction (Verified 07/16/23 02:50) Gastrointestinal Upset Home Medications insulin aspart U-100 100 unit/mL (3 mL) subcutaneous pen (Novolog FlexPen U-100 Insulin aspart) See Protocol subcut TID.WM.HS #10 mL 10/13/19 [Rx Confirmed 07/16/23] adalimumab 40 mg/0.4 mL subcutaneous pen kit (Humira(CF) Pen) 40 mg subcut Q2W 04/28/20 [History Confirmed 07/16/23] gabapentin 300 mg capsule (Neurontin) 600 mg PO TID 04/28/20 [History Confirmed 07/16/23] insulin glargine 100 unit/mL (3 mL) subcutaneous pen (Lantus Solostar U-100 Insulin) 8 unit subcut QAM 04/28/20 [History Confirmed 07/16/23] huecpr-incmcjbc-cnhxamv 36,000-114,000-180,000 unit capsule,delay rel (Creon) 1 cap PO TID 04/28/20 [History Confirmed 07/16/23] trazodone 100 mg tablet 200 mg PO QHS 04/28/20 [History Confirmed 07/16/23] loperamide 2 mg capsule 2 mg PO BID 30 days #60 caps 07/28/21 [Rx Confirmed 07/16/23] promethazine 12.5 mg tablet 12.5 mg PO Q6H PRN nausea and vomiting #30 tabs 07/28/21 [Rx Confirmed 07/16/23] atomoxetine 60 mg capsule 60 mg PO DAILY 07/16/23 [History Confirmed 07/16/23] cariprazine 1.5 mg capsule (Vraylar) 1.5 mg PO DAILY 07/16/23 [History Confirmed 07/16/23] dextromethorphan IR 45 mg-bupropion ER 105 mg biphasic tablet (Auvelity) tab PO 07/16/23 [History] hydromorphone 8 mg tablet (Dilaudid) 8 mg PO Q8H PRN Pain 07/16/23 [History Confirmed 07/16/23] lorazepam 0.5 mg tablet 0.5 mg PO BID 07/16/23 [History Confirmed 07/16/23] mirtazapine 7.5 mg tablet 7.5 mg PO QHS 07/16/23 [History Confirmed 07/16/23] oxycodone 15 mg tablet 15 mg PO Q4H PRN Pain 07/16/23 [History Confirmed 07/16/23] pantoprazole 40 mg tablet,delayed release 40 mg PO TID 07/16/23 [History Confirmed 07/16/23] Exam Physical Exam Vital Signs: Temp Pulse Resp BP Pulse Ox O2 Del Method 98.6 F 70 16 138/92 99 Room Air 07/15/23 20:41 07/16/23 01:24 07/16/23 01:24 07/16/23 01:24 07/16/23 01:24 07/16/23 01:24 Narrative: CONST- Appears well -developed and well nourished. HEAD - Normocephalic and atraumatic EENT-Sclera nonicteric, conjunctive are non-erythemic, moist oral mucosa, pharynx clear NECK-Supple, no cervical lymphadenopathy CARDIAC-normal rate, regular rhythm, S1 & S2. PULM-diminished without wheeze or rhonchi, RA, no accessory muscle use or cough noted ABD - Soft. Bowel sounds are hyperactive. No distention. tenderness to LUQ EXTREM-no edema BLE calves, nontender SKIN- W/D good turgor MS- MAEX4 spontaneously with equal with equal strength NEURO- A&Ox3 speech clear and tongue midline, equal facial symmetry, no focal motor deficits PSYCH-Mood, affect, and behavior appropriate Results Lab Results Labs: Laboratory Last Values Corrected WBC 7.8 X10E3/uL (3.8-11.6) 07/15/23 22:45 Uncorrected WBC Count 7.8 x10E3/uL (3.8-11.6) 07/15/23 22:45 RBC 3.74 X10E6/uL (3.60-5.00) 07/15/23 22:45 Hgb 11.9 g/dL (11.8-15.4) 07/15/23 22:45 Hct 35.1 % (34.0-46.4) 07/15/23 22:45 MCV 93.7 fl (80-100) 07/15/23 22:45 MCH 31.9 pg (24.7-34.3) 07/15/23 22:45 MCHC 34.0 g/dL (32.0-35.0) 07/15/23 22:45 RDW 14.2 % (11.9-15.3) 07/15/23 22:45 Plt Count 225 x10E3/uL (150-450) 07/15/23 22:45 MPV 7.9 fl (6.3-10.7) 07/15/23 22:45 Neut % (Auto) 58.6 % (.) 07/15/23 22:45 Lymph % (Auto) 34.4 % (.) 07/15/23 22:45 [place] % (Auto) 5.3 % (.) 07/15/23 22:45 Eos % (Auto) 1.0 % (.) 07/15/23 22:45 Baso % (Auto) 0.7 % (.) 07/15/23 22:45 Nucleat RBC Rel Count 0.1 /100 WBC (0-0.5) 07/15/23 22:45 Neut # (Auto) 4.6 x10E3/uL (1.8-7.7) 07/15/23 22:45 Lymph # (Auto) 2.7 x10E3/uL (1.00-4.8) 07/15/23 22:45 [place] # (Auto) 0.4 x10E3/uL (0.0-0.8) 07/15/23 22:45 Eos # (Auto) 0.1 x10E3/uL (0.0-0.45) 07/15/23 22:45 Baso # (Auto) 0.1 x10E3/uL (0.0-0.2) 07/15/23 22:45 Monocyte Dist Width 21.41 % (0.00-20.00) H 07/15/23 22:45 PHA Creatinine Clear 119.14 07/15/23 22:45 Sodium 135 mmol/L (136-145) L 07/15/23 22:45 Potassium 3.9 mmol/L (3.5-5.1) 07/15/23 22:45 Chloride 104 mmol/L (98-107) 07/15/23 22:45 Carbon Dioxide 24.0 mmol/L (21.0-31.0) 07/15/23 22:45 Anion Gap 10.9 mEq/L (6.0-15.0) 07/15/23 22:45 BUN 10 mg/dL (7-25) 07/15/23 22:45 Creatinine 0.54 mg/dL (0.60-1.20) L 07/15/23 22:45 Est GFR (CKD-EPI) > 60.0 mL/Min 07/15/23 22:45 Glucose 95 mg/dL (70-100) 07/15/23 22:45 Calcium 8.8 mg/dL (8.6-10.3) 07/15/23 22:45 Total Bilirubin 0.5 mg/dl (0.3-1.0) 07/15/23 22:45 Direct Bilirubin 0.10 mg/dL (0.03-0.18) 07/15/23 22:45 Indirect Bilirubin 0.4 mg/dL 07/15/23 22:45 AST 17 U/L (13-39) 07/15/23 22:45 ALT 21 U/L (7-52) 07/15/23 22:45 Alkaline Phosphatase 88 U/L (34-104) 07/15/23 22:45 Total Protein 7.2 gm/dL (6.4-8.9) 07/15/23 22:45 Albumin 3.9 gm/dL (3.5-5.7) 07/15/23 22:45 Globulin 3.3 gm/dL 07/15/23 22:45 Albumin/Globulin Ratio 1.2 07/15/23 22:45 Lipase 4.0 U/L (11.0-82.0) L 07/15/23 22:45 Urine Color Yellow (Yellow) 07/15/23 21: Urine Appearance Cloudy (Clear) A 07/15/23 21: Urine pH 6.5 (5.0-9.0) 07/15/23 21: Ur Specific [place] 1.023 (1.001-1.030) 07/15/23 21: Urine Protein Trace mg/dL (Negative) H 07/15/23 21: Urine Glucose (UA) Normal mg/dL (Normal) 07/15/23 21: Urine Ketones Negative (Negative) 07/15/23 21: Urine Occult Blood Negative (Negative) 07/15/23 21: Urine Nitrite Negative (Negative) 07/15/23 21: Urine Bilirubin Negative (Negative) 07/15/23 21: Urine Urobilinogen Normal mg/dL (Normal) 07/15/23 21:01 Ur Leukocyte Esterase 1+ (Negative) H 07/15/23 21:01 Urine RBC 3-4 /HPF (0-4) 07/15/23 21: Urine WBC 5-9 /HPF (0-4) H 07/15/23 21:01 Ur Squamous Epith Cells 10-19 /HPF (0-2) H 07/15/23 21:01 Urine Bacteria 2+ (None Seen) H 07/15/23 21: Hyaline Casts 0-8 /LPF (0-8) 07/15/23 21: Urine HCG, Qual Negative 07/15/23 21: Assessment & Plan Assessment/Plan (1) Acute on chronic pancreatitis: (2) Nausea & vomiting: (3) Abdominal pain: (4) Type 1 diabetes mellitus: (5) Crohns disease: Plan Acute on chronic pancreatitis Abdominal pain Nausea and vomiting ? Consult GI ? Please obtain records from regarding ERCP, MRCP ? Promethazine as needed ? Continue home meds?Creon ? IV hydration UTI?culture pending ? Continue cephalexin Chronic conditions T1DM?fingersticks ACHS, SSI C, basal insulin Crohn's disease?patient takes Humira SQ every 2 weeks DVT PPx-SCDs, enoxaparin Diet order-clear liquids, advance as tolerated CODE STATUS-full code IP vs OBS Justification Based on differential dx, clinical care plan, and risk of adverse events, if untreated, in my clinical judgement this patient requires an acute care setting as: INPATIENT because of an expectation of an over 2 midnight stay. Estimated length of stay (# of days): 3 Documented By: Gini Harper APRN 07/16/23203 Signed By: <Electronically signed by CARYN Harper> 07/16/23306 <Electronically signed by Karl Gant MD> 07/19/232003 [facility] Work Phone: 1(232) 187-455611-03-2023 Progress note Author Allen Borges [facility] July 19, 2023 3:34pm Note Date/Time July 19, 2023 3 :34pm [facility] EN[facility] [address] [place] [address] Hospitalist Progress Note Signed Patient: Julieth Spencer MR#: [id number] : 1985 Acct:[id number] Age/Sex: 37 / F Adm Date: 3 Loc: 4N Room: [address] [place] [address] Type: ADM IN Attending Dr: Allen Borges DO Copies to: ~ Date of Service: 07/19/2023 Subjective Subjective Narrative: Pt seen and examined. States pain is improved and that she is ready to transition to PO pain regimen and attempt a diet today. Discontinued IV dilaudidand re-ordered her home PO Dilaudid and PO oxycodone doses and advancing diet astolerated. Pt hopeful she can go home tomorrow Exam Physical Exam Vital Signs: Temp Pulse Resp BP Pulse Ox O2 Del Method 98.0 F 76 18 133/69 100 Room Air 07/19/23 12:00 07/19/23 08:00 07/19/23 12:00 07/19/23 12:00 07/19/23 12:00 07/19/23 12:00 Narrative: General: Awake and alert. Lying in bed comfortably in no apparent pain/distress HEENT: Normocephalic, atraumatic, trachea midline Respiratory: good inspiratory effort, clear to auscultation, no wheeze, no rhonchi, no crackles Cardiovascular: RRR, normal S1 and S2 Abdominal: soft, non-distended, epigastric tenderness, no rebound, no guarding, +BS Skin: warm, dry, no lesions or rashes MSK: no edema Neurologic: No focal deficits Psych: appropriate affect Objective Lab Results 07/15/23 22:45 07/19/23 08:16 Meds Allergies and Active Meds Allergies sulfamethoxazole [From Bactrim] Allergy (Verified 07/16/23 02:50) Rash trimethoprim [From Bactrim] Allergy (Verified 07/16/23 02:50) Rash morphine Adverse Reaction (Verified 07/16/23 02:50) Dizziness ondansetron [From Zofran] Adverse Reaction (Verified 07/16/23 02:50) Gastrointestinal Upset Active Meds: Active Medications Generic Name Dose Route Start Last Admin Trade Name Freq PRN Reason Stop Dose Admin Acetaminophen 1,000 mg 07/16/23 02:57 07/19/23 11:44 Acetaminophen 500 Mg Tablet PO 07/15/24 02:56 1,000 mg Q6HR PRN Administration Pain Scale 1 - 3 or fever Lipase/Protease/Amylase 1 cap 07/18/23 17:00 07/19/23 11:56 Lipa/Prot/Amyla 36-114-180k 1 Cap Capsule.Dr PO 07/17/24 16:59 1 cap TID.WITH.MEALS HERNANDEZ Administration Atomoxetine HCl 60 mg 07/17/23 11:30 07/19/23 08:05 Atomoxetine 60 Mg Capsule PO 07/16/24 11:29 60 mg DAILY HERNANDEZ Administration Cariprazine 1.5 mg 07/17/23 11:30 07/19/23 08:04 Cariprazine *Nf* 1.5 Mg Capsule PO 07/16/24 11:29 1.5 mg DAILY HERNANDEZ Administration Dextrose 0 gm 07/16/23 02:57 Dextrose 50% In Water 25 Gm/50 Ml Syringe IV-PUSH 10/30/24 02:56 PRN PRN Hypoglycemia Enoxaparin Sodium 40 mg 07/16/23 10:00 07/19/23 09:48 Enoxaparin 40 Mg/0.4 Ml Syringe SUBCUT 07/15/24 09:59 Not Given DAILY@10 HERNANDEZ Gabapentin 600 mg 07/18/23 22:00 07/19/23 14:09 Gabapentin 300 Mg Capsule PO 07/17/24 21:59 600 mg TID HERNANDEZ Administration Glucose 0 gm 07/16/23 02:57 Dextrose 40% Gel 15 Gm Tube PO 07/15/24 02:56 PRN PRN Hypoglycemia Hydromorphone HCl 4 mg 07/19/23 12:47 07/19/23 14:08 Hydromorphone 4 Mg Tablet PO 4 mg Q6H PRN Administration Pain Lactated Ringer's 1,000 mls @ 250 mls/hr 07/17/23 12:00 07/19/23 14:20 Lactated Ringers IV 07/16/24 11:59 250 mls/hr .Q4H HERNANDEZ Administration Insulin Aspart 0 units 07/16/23 08:00 07/19/23 11:58 Insulin Aspart 300 Units/3 Ml Insuln.Pen SUBCUT 07/15/24 07:59 Not Given TID.WM.HS HERNANDEZ Protocol Lorazepam 0.5 mg 07/17/23 11:00 07/19/23 08:04 Lorazepam 0.5 Mg Tablet PO 01/13/24 10:59 0.5 mg BID HERNANDEZ Administration Mirtazapine 7.5 mg 07/17/23 22:00 07/18/23 21:52 Mirtazapine 7.5 Mg Tablet PO 07/16/24 21:59 7.5 mg QHS HERNANDEZ Administration Naloxone HCl 0.1 mg 07/16/23 02:57 Naloxone Hcl 0.4 Mg/Ml Vial IV-PUSH 07/15/24 02:56 Q2M PRN Opioid Reversal Oxycodone HCl 15 mg 07/19/23 12:49 07/19/23 13:18 Oxycodone Ir 15 Mg Tablet PO 15 mg Q4HR PRN Administration Pain Scale 4 - 7 Promethazine HCl 12.5 mg 07/16/23 02:57 07/19/23 14:14 Promethazine 25 Mg/Ml Vial IV-PUSH 07/15/24 02:56 12.5 mg Q6H PRN Administration Nausea And Vomiting Sodium Chloride 0 ml 07/15/23 17:57 07/18/23 17:13 Sodium Chloride 0.9 % 10 Ml Syringe IV-PUSH 07/14/24 17:56 10 ml PRN PRN Administration Flush Sodium Chloride 0 ml 07/16/23 06:00 07/19/23 14:09 Sodium Chloride 0.9 % 10 Ml Syringe IV-PUSH 07/15/24 05:59 2 ml QSHIFT HERNANDEZ Administration Sodium Chloride 10 ml 07/16/23 02:57 07/18/23 17:12 Sodium Chloride 0.9 % 10 Ml Vial.Pf INJECTION 07/15/24 02:56 10 ml PRN PRN Administration Promethazine Dilution Trazodone HCl 200 mg 07/17/23 22:00 07/18/23 21:52 Trazodone 100 Mg Tablet PO 07/16/24 21:59 200 mg QHS HERNANDEZ Administration A&P - Hospitalist Assessment/Plan (1) Acute on chronic pancreatitis: (2) Nausea & vomiting: (3) Abdominal pain: (4) Type 1 diabetes mellitus: (5) Crohns disease: Plan Acute on chronic pancreatitis Abdominal pain Nausea and vomiting ? Consult GI- signed off. Outpt follow up ? Promethazine as needed ? Continue home meds?Creon ? IV hydration - Pain improved today. Discontinuing IV pain meds and transitioning to her home PO pain regimen and advancing diet as tolerated UTI ? Continue cephalexin - 3 days total as no symptoms currently Chronic conditions T1DM?fingersticks ACHS, SSI C, basal insulin Crohn's disease?patient takes Humira SQ every 2 weeks DVT PPx-SCDs, enoxaparin Diet order-clear liquids, advance as tolerated CODE STATUS-full code Disposition: Advancing diet today. On home PO pain regimen. Possible discharge tomorrow if pt tolerating PO and pain controlled Time Spent With Patient (min): 45 Documented By: Allen Borges DO 07/19/23 153 1 Signed By: <Electronically signed by Allen Borges DO> 07/19/[address] [facility] Work Phone: 1(280) 252-165711-02-2023 Progress note Author Allen Borges [facility] July 18, 2023 2:48pm Note Date/Time July 18, 2023 2 :48pm [facility] [address] [place] [address] Hospitalist Progress Note Signed Patient: Julieth Spencer MR#: [id number] : 1985 Acct:[id number] Age/Sex: 37 / F Adm Date: 3 Loc: 4 Room: [address] [place] [address] Type: ADM IN Attending Dr: Allen Borges DO Copies to: ~ Date of Service: 07/18/2023 Subjective Subjective Narrative: Pt seen and examined. States pain is improved, but not ready to stop the IV Dilaudid. Discussed that we will advance diet when she is tolerating pain on PO meds only. Pt states she would like to give it one more day before changing to all PO pain meds Exam Physical Exam Vital Signs: Temp Pulse Resp BP Pulse Ox O2 Del Method 97.7 F 71 16 122/82 97 Room Air 07/18/23 11:40 07/18/23 11:40 07/18/23 11:40 07/18/23 11:40 07/18/23 11:40 07/18/23 11:40 Narrative: General: Awake and alert. Lying in bed comfortably in no apparent pain/distress HEENT: Normocephalic, atraumatic, trachea midline Respiratory: good inspiratory effort, clear to auscultation, no wheeze, no rhonchi, no crackles Cardiovascular: RRR, normal S1 and S2 Abdominal: soft, non-distended, epigastric tenderness, no rebound, no guarding, +BS Skin: warm, dry, no lesions or rashes MSK: no edema Neurologic: No focal deficits Psych: appropriate affect Objective Lab Results 07/15/23 22:45 07/18/23 05:03 Meds Allergies and Active Meds Allergies sulfamethoxazole [From Bactrim] Allergy (Verified 07/16/23 02:50) Rash trimethoprim [From Bactrim] Allergy (Verified 07/16/23 02:50) Rash morphine Adverse Reaction (Verified 07/16/23 02:50) Dizziness ondansetron [From Zofran] Adverse Reaction (Verified 07/16/23 02:50) Gastrointestinal Upset Active Meds: Active Medications Generic Name Dose Route Start Last Admin Trade Name Freq PRN Reason Stop Dose Admin Acetaminophen 1,000 mg 07/16/23 02:57 07/17/23 08:25 Acetaminophen 500 Mg Tablet PO 07/15/24 02:56 1,000 mg Q6HR PRN Administration Pain Scale 1 - 3 or fever Atomoxetine HCl 60 mg 07/17/23 11:30 07/18/23 08:18 Atomoxetine 60 Mg Capsule PO 07/16/24 11:29 60 mg DAILY HERNANDEZ Administration Cariprazine 1.5 mg 07/17/23 11:30 07/18/23 08:18 Cariprazine *Nf* 1.5 Mg Capsule PO 07/16/24 11:29 1.5 mg DAILY HERNANDEZ Administration Cephalexin HCl 500 mg 07/18/23 02:45 07/18/23 13:48 Cephalexin 500 Mg Capsule PO 07/18/23 14:46 500 mg Q12H HERNANDEZ Administration Dextrose 0 gm 07/16/23 02:57 Dextrose 50% In Water 25 Gm/50 Ml Syringe IV-PUSH 07/15/24 02:56 PRN PRN Hypoglycemia Enoxaparin Sodium 40 mg 07/16/23 10:00 07/18/23 10:30 Enoxaparin 40 Mg/0.4 Ml Syringe SUBCUT 07/15/24 09:59 Not Given DAILY@10 HERNANDEZ Gabapentin 600 mg 07/17/23 14:00 Gabapentin 300 Mg Capsule PO 07/16/24 13:59 TID [facility] Glucose 0 gm 07/16/23 02:57 Dextrose 40% Gel 15 Gm Tube PO 07/15/24 02:56 PRN PRN Hypoglycemia Hydromorphone HCl 1 mg 07/16/23 02:57 07/18/23 13:48 Hydromorphone 0.5 Mg/0.5 Ml Syringe IV-PUSH 1 mg Q4H PRN Administration Pain Scale 8 - 10 Lactated Ringer's 1,000 mls @ 250 mls/hr 07/17/23 12:00 07/18/23 13:47 Lactated Ringers IV 07/16/24 11:59 250 mls/hr .Q4H HERNANDEZ Administration Insulin Aspart 0 units 07/16/23 08:00 07/18/23 13:01 Insulin Aspart 300 Units/3 Ml Insuln.Pen SUBCUT 07/15/24 07:59 Not Given TID.WM.HS [facility] Protocol Lorazepam 0.5 mg 07/17/23 11:00 07/18/23 08:18 Lorazepam 0.5 Mg Tablet PO 01/13/24 10:59 0.5 mg BID HERNANDEZ Administration Mirtazapine 7.5 mg 07/17/23 22:00 07/17/23 22:25 Mirtazapine 7.5 Mg Tablet PO 07/16/24 21:59 Not Given QHS [facility] Naloxone HCl 0.1 mg 07/16/23 02:57 Naloxone Hcl 0.4 Mg/Ml Vial IV-PUSH 07/15/24 02:56 Q2M PRN Opioid Reversal Non-Formulary Medication 1 cap 07/17/23 14:00 Vacqaf-Nndepvkb-Otspcax [Creon] PO 07/16/24 13:59 TID [facility] Oxycodone HCl 10 mg 07/17/23 11:50 07/18/23 08:19 Oxycodone Ir 5 Mg Tablet PO 10 mg Q6HR PRN Administration Pain Scale 4 - 7 Promethazine HCl 12.5 mg 07/16/23 02:57 07/18/23 09:18 Promethazine 25 Mg/Ml Vial IV-PUSH 07/15/24 02:56 12.5 mg Q6H PRN Administration Nausea And Vomiting Sodium Chloride 0 ml 07/15/23 17:57 07/18/23 09:19 Sodium Chloride 0.9 % 10 Ml Syringe IV-PUSH 07/14/24 17:56 20 ml PRN PRN Administration Flush Sodium Chloride 0 ml 07/16/23 06:00 07/18/23 13:48 Sodium Chloride 0.9 % 10 Ml Syringe IV-PUSH 07/15/24 05:59 10 ml QSHIFT HERNANDEZ Administration Sodium Chloride 10 ml 07/16/23 02:57 07/18/23 09:19 Sodium Chloride 0.9 % 10 Ml Vial.Pf INJECTION 07/15/24 02:56 10 ml PRN PRN Administration Promethazine Dilution Trazodone HCl 200 mg 07/17/23 22:00 07/17/23 22:25 Trazodone 100 Mg Tablet PO 07/16/24 21:59 Not Given QHS [facility] A&P - Hospitalist Assessment/Plan (1) Acute on chronic pancreatitis: (2) Nausea & vomiting: (3) Abdominal pain: (4) Type 1 diabetes mellitus: (5) Crohns disease: Plan Acute on chronic pancreatitis Abdominal pain Nausea and vomiting ? Consult GI ? Please obtain records from regarding ERCP, MRCP ? Promethazine as needed ? Continue home meds?Creon ? IV hydration - CLD. Can advance when pain is improved. Pt very calm and comfortable appearing, yet asking specifically about having a Dilaudid [employer] pump. 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 She was agreeable to a pain management consult to discuss further. Today, pt agreeable to advance diet when no longer requiring IV pain meds and wants to give it one more day. UTI?culture pending ? Continue cephalexin - 3 days total as no symptoms currently Chronic conditions T1DM?fingersticks ACHS, SSI C, basal insulin Crohn's disease?patient takes Humira SQ every 2 weeks DVT PPx-SCDs, enoxaparin Diet order-clear liquids, advance as tolerated CODE STATUS-full code Disposition: Will consider discharge when tolerating full diet without pain meds. Pain management consulted as pt adamant to have a dilaudid [employer] pump, despite appearing calm and comfortable. I will defer this to pain management. GI agrees with medical management and outpatient GI follow up and signed off. No further imaging or testing indicated this admission. Will advance diet tomorrow if pt willing to DC IV pain meds. Time Spent With Patient (min): 45 Documented By: Allen Borges DO 07/18/23 144 5 Signed By: <Electronically signed by Allen Borges DO> 07/18/23 64[address] [facility] Work Phone: [phone] 251-859211-01-2023 Consult note Author José Miguel Tobar [facility] July 17, 2023 5:27pm Note Date/Time July 17, 2023 5 :27pm [facility] [address] [place] [address] Pain Management Consult Note Signed Patient: Julieth Spencer MR#: [id number] : 1985 Acct:[id number] Age/Sex: 37 / F Adm Date: 3 Loc: 4N Room: [address] [place] [address] Type: ADM IN Attending Dr: Allen Borges DO Copies to: DO Allen Delatorre DO Sherif S Zaky, MD~ HPI Data of Consult Consult date: 07/17/23 Primary Care Provider: Nat Medina DO Consult Narrative Reason for consult: Abdominal pain Chief complaint: Abdominal pain History of present illness: Ms. Spencer is a 37 year old female who has been recently admitted to the hospital with increasing abdominal pain. Patient has a known history of chronic pancreatitis and was supposed to have surgery recently which she cancelled. Patient reports chronic epigastric pain and reports that she sees palliative medicine as outpatient. Patient reports the she is scheduled to see Pain Management at [facility] in 2 weeks. Patient appears in no distress duringevaluation. Pain management was consulted to evaluate for possible interventional options. Review of Systems Review of Systems Review of systems: A 10 point review of systems was obtained, negative unless noted in the HPI or below. Constitutional Constitutional: Denies poor appetite and Denies weight loss Eyes Eyes: Denies change in vision and Denies eye discharge ENT Ears, Nose, Mouth, and Throat: Denies nasal discharge, Denies sore throat and Denies vertigo Cardiovascular Cardiovascular: Denies chest pain and Denies dyspnea on exertion Respiratory Respiratory: Denies chest congestion, Denies cough and Denies dyspnea on exertion Gastrointestinal Gastrointestinal: Reports as per HPI Musculoskeletal Musculoskeletal: Denies arthralgias, Denies muscle weakness and Denies numbness Integumentary/Breasts Skin/Breast: Denies change in pigmentation and Denies rash Neurologic Neurologic: Denies numbness and Denies vertigo Psychiatric Psychiatric: Denies anxiety and Denies depression Hematologic/Lymphatic Hematologic/Lymphatic: Denies easy bruising and Denies lymphadenopathy [facility] Medical History (Updated 07/15/23 @ 23:13 by Troy Haile DO) ADHD (attention deficit hyperactivity disorder) Anxiety Chronic pancreatitis Crohn disease 2007 Depression Diabetes Type 1 diabetes mellitus Surgical History (Updated 07/16/23 @ 02:16 by Gini Harper APRN) History of cholecystectomy History of ERCP Family History Mother Anxiety Grandparent Pancreatic cancer Social History Smoking Status: Former smoker Tobacco Type: cigarettes Substance Use Type: Marijuana Substance Abuse Comment: no alcohol use recently Social History Comments: lives with boyfriend Meds Medications and Allergies Allergies sulfamethoxazole [From Bactrim] Allergy (Verified 07/16/23 02:50) Rash trimethoprim [From Bactrim] Allergy (Verified 07/16/23 02:50) Rash morphine Adverse Reaction (Verified 07/16/23 02:50) Dizziness ondansetron [From Zofran] Adverse Reaction (Verified 07/16/23 02:50) Gastrointestinal Upset Home Medications insulin aspart U-100 100 unit/mL (3 mL) subcutaneous pen (Novolog FlexPen U-100 Insulin aspart) See Protocol subcut TID.WM.HS #10 mL 10/13/19 [Rx Confirmed 07/16/23] adalimumab 40 mg/0.4 mL subcutaneous pen kit (Humira(CF) Pen) 40 mg subcut Q2W 04/28/20 [History Confirmed 07/16/23] gabapentin 300 mg capsule (Neurontin) 600 mg PO TID 04/28/20 [History Confirmed 07/16/23] insulin glargine 100 unit/mL (3 mL) subcutaneous pen (Lantus Solostar U-100 Insulin) 8 unit subcut QAM 04/28/20 [History Confirmed 07/16/23] antukf-mdtyvair-lvolami 36,000-114,000-180,000 unit capsule,delay rel (Creon) 1 cap PO TID 04/28/20 [History Confirmed 07/16/23] trazodone 100 mg tablet 200 mg PO QHS 04/28/20 [History Confirmed 07/16/23] loperamide 2 mg capsule 2 mg PO BID 30 days #60 caps 07/28/21 [Rx Confirmed 07/16/23] promethazine 12.5 mg tablet 12.5 mg PO Q6H PRN nausea and vomiting #30 tabs 07/28/21 [Rx Confirmed 07/16/23] atomoxetine 60 mg capsule 60 mg PO DAILY 07/16/23 [History Confirmed 07/16/23] cariprazine 1.5 mg capsule (Vraylar) 1.5 mg PO DAILY 07/16/23 [History Confirmed 07/16/23] dextromethorphan IR 45 mg-bupropion ER 105 mg biphasic tablet (Auvelity) tab PO 07/16/23 [History] hydromorphone 8 mg tablet (Dilaudid) 8 mg PO Q8H PRN Pain 07/16/23 [History Confirmed 07/16/23] lorazepam 0.5 mg tablet 0.5 mg PO BID 07/16/23 [History Confirmed 07/16/23] mirtazapine 7.5 mg tablet 7.5 mg PO QHS 07/16/23 [History Confirmed 07/16/23] oxycodone 15 mg tablet 15 mg PO Q4H PRN Pain 07/16/23 [History Confirmed 07/16/23] pantoprazole 40 mg tablet,delayed release 40 mg PO TID 07/16/23 [History Confirmed 07/16/23] Exam Physical Exam Vital Signs: Temp Pulse Resp BP Pulse Ox O2 Del Method 98.0 F 76 16 180/91 H 99 Room Air 07/17/23 16:00 07/17/23 16:00 07/17/23 16:00 07/17/23 16:00 07/17/23 16:00 07/17/23 16:00 Narrative: General: Awake and alert. Lying in bed comfortably in no apparent pain/distress HEENT: Normocephalic, atraumatic, trachea midline Respiratory: good inspiratory effort, clear to auscultation, no wheeze, no rhonchi, no crackles Cardiovascular: RRR, normal S1 and S2 Abdominal: soft, non-distended, epigastric tenderness, no rebound, no guarding, +BS Skin: warm, dry, no lesions or rashes MSK: no edema Neurologic: No focal deficits Psych: appropriate affect Const General: no acute distress and well developed HEENT Head: normocephalic and atraumatic Mouth: moist mucous membranes Eyes Sclera: sclerae normal (no scleral icterus) EOM: EOM intact bilaterally Resp Effort & Inspection: normal respiratory effort and able to speak in complete sentences GI Inspection: normal to inspection and non-distended Palpation: soft and nontender Skin General: turgor normal and no jaundice Neuro General: patient alert and patient oriented x3 Psych Appearance: grossly normal Mental Status: mental status grossly normal Results Vital Signs Vital Signs: Temp 98.0 F 07/17/23 16:00 Pulse 76 07/17/23 16:00 Resp 16 07/17/23 16:00 BP 180/91 H 07/17/23 16:00 Pulse Ox 99 07/17/23 16:00 O2 Del Method Room Air 07/17/23 16:00 Pain Medial Abdomen: Pain Description: Constant Pain Intensity: 10 Labs 07/15/23 22:45 07/15/23 22:45 Assessment/Plan (1) Acute on chronic pancreatitis: Plan: I discussed with the patient possible interventional option with Celiac plexus block for pain control. Patient tells me that she is scheduled to see pain management as outpatient. Discussed with the patient the risks and benefits of Celiac plexus block and patient does not want to proceed at this time. Patient also seems in no acute distress during examination. I advised the patient to keep her appointment with pain management as outpatient and continue medical management with palliative medicine. She will also discuss surgical options as outpatient with Dr Burk at per patient. Code(s): K85.90 - Acute pancreatitis without necrosis or infection, unspecified; K86.1 - Other chronic pancreatitis Status: Acute (2) Nausea & vomiting: Code(s): R11.2 - Nausea with vomiting, unspecified Status: Acute (3) Abdominal pain: Code(s): R10.9 - Unspecified abdominal pain Status: Acute (4) Type 1 diabetes mellitus: Code(s): E10.9 - Type 1 diabetes mellitus without complications Status: Acute (5) Crohns disease: Code(s): K50.90 - Crohn's disease, unspecified, without complications Status: Chronic Documented By: José Miguel Tobar MD 07/17/231718 Signed By: <Electronically signed by José Miguel Tobar MD> 07/17/[address] [facility] Work Phone: 1(925) 909-613011-01-2023 Progress note Author Allen Borges [facility] July 17, 2023 1:01pm Note Date/Time July 17, 2023 1 :01pm [facility] [address] [place] [address] Hospitalist Progress Note Signed Patient: Julieth Spencer MR#: [id number] : 1985 Acct:[id number] Age/Sex: 37 / F Adm Date: 3 Loc: 4N Room: [address] [place] [address] Type: ADM IN Attending Dr: Allen Borges DO Copies to: ~ Date of Service: 07/17/2023 Subjective Subjective Narrative: Pt seen and examined. Very comfortable and calm and asking to advance her diet, while at the same time trying to state she is in 10/10 pain and needs a DilaudidPCA. I discussed that I will not be ordering a [employer]ER pump as she does not appear to be in significant pain which would require that and she was adamant so I consulted pain management. Pt agreeable to discuss with them. I did increase her oxycodone to 10mg. She is already receiving 1mg dilaudid IV push q4 hours. Resumed her home medications Exam Physical Exam Vital Signs: Temp Pulse Resp BP Pulse Ox O2 Del Method 98.0 F 71 16 130/86 99 Room Air 07/17/23 11:24 07/17/23 11:24 07/17/23 11:24 07/17/23 11:24 07/17/23 11:24 07/17/23 11:24 Narrative: General: Awake and alert. Lying in bed comfortably in no apparent pain/distress HEENT: Normocephalic, atraumatic, trachea midline Respiratory: good inspiratory effort, clear to auscultation, no wheeze, no rhonchi, no crackles Cardiovascular: RRR, normal S1 and S2 Abdominal: soft, non-distended, epigastric tenderness, no rebound, no guarding, +BS Skin: warm, dry, no lesions or rashes MSK: no edema Neurologic: No focal deficits Psych: appropriate affect Objective Lab Results 07/15/23 22:45 07/15/23 22:45 Microbiology Results Microbiology 07/15/23 21:01 Urine - Clean-Voided Midstream Urine Culture - Final >100,000 colonies/ml mixed bacterial skin contaminants 2 Days Meds Allergies and Active Meds Allergies sulfamethoxazole [From Bactrim] Allergy (Verified 07/16/23 02:50) Rash trimethoprim [From Bactrim] Allergy (Verified 07/16/23 02:50) Rash morphine Adverse Reaction (Verified 07/16/23 02:50) Dizziness ondansetron [From Zofran] Adverse Reaction (Verified 07/16/23 02:50) Gastrointestinal Upset Active Meds: Active Medications Generic Name Dose Route Start Last Admin Trade Name Freq PRN Reason Stop Dose Admin Acetaminophen 1,000 mg 07/16/23 02:57 07/17/23 08:25 Acetaminophen 500 Mg Tablet PO 07/15/24 02:56 1,000 mg Q6HR PRN Administration Pain Scale 1 - 3 or fever Atomoxetine HCl 60 mg 07/17/23 11:30 Atomoxetine 60 Mg Capsule PO 07/16/24 11:29 DAILY HERNANDEZ Cariprazine 1.5 mg 07/17/23 11:30 Cariprazine *Nf* 1.5 Mg Capsule PO 07/16/24 11:29 DAILY HERNANDEZ Cephalexin HCl 250 mg 07/16/23 12:00 07/17/23 02:50 Cephalexin 250 Mg Capsule PO 250 mg Q12H HERNANDEZ Administration Dextrose 0 gm 07/16/23 02:57 Dextrose 50% In Water 25 Gm/50 Ml Syringe IV-PUSH 07/15/24 02:56 PRN PRN Hypoglycemia Enoxaparin Sodium 40 mg 07/16/23 10:00 07/17/23 12:45 Enoxaparin 40 Mg/0.4 Ml Syringe SUBCUT 07/15/24 09:59 Not Given DAILY@10 [facility] Gabapentin 600 mg 07/17/23 14:00 Gabapentin 300 Mg Capsule PO 07/16/24 13:59 TID HERNANDEZ Glucose 0 gm 07/16/23 02:57 Dextrose 40% Gel 15 Gm Tube PO 07/15/24 02:56 PRN PRN Hypoglycemia Hydromorphone HCl 1 mg 07/16/23 02:57 07/17/23 09:21 Hydromorphone 0.5 Mg/0.5 Ml Syringe IV-PUSH 1 mg Q4H PRN Administration Pain Scale 8 - 10 Lactated Ringer's 1,000 mls @ 250 mls/hr 07/17/23 12:00 Lactated Ringers IV 07/16/24 11:59 .Q4H [facility] Insulin Aspart 0 units 07/16/23 08:00 07/17/23 12:25 Insulin Aspart 300 Units/3 Ml Insuln.Pen SUBCUT 07/15/24 07:59 Not Given TID.WM.HS [facility] Protocol Lorazepam 0.5 mg 07/17/23 11:00 Lorazepam 0.5 Mg Tablet PO 01/13/24 10:59 BID HERNANDEZ Mirtazapine 7.5 mg 07/17/23 22:00 Mirtazapine 7.5 Mg Tablet PO 07/16/24 21:59 QHS HERNANDEZ Naloxone HCl 0.1 mg 07/16/23 02:57 Naloxone Hcl 0.4 Mg/Ml Vial IV-PUSH 07/15/24 02:56 Q2M PRN Opioid Reversal Non-Formulary Medication 1 cap 07/17/23 14:00 Uuyedd-Ksphoqtg-Mbjburh [Creon] PO 07/16/24 13:59 TID HERNANDEZ Oxycodone HCl 10 mg 07/17/23 11:50 Oxycodone Ir 5 Mg Tablet PO Q6HR PRN Pain Scale 4 - 7 Promethazine HCl 12.5 mg 07/16/23 02:57 07/17/23 06:06 Promethazine 25 Mg/Ml Vial IV-PUSH 07/15/24 02:56 12.5 mg Q6H PRN Administration Nausea And Vomiting Sodium Chloride 0 ml 07/15/23 17:57 07/15/23 23:52 Sodium Chloride 0.9 % 10 Ml Syringe IV-PUSH 07/14/24 17:56 10 ml PRN PRN Administration Flush Sodium Chloride 0 ml 07/16/23 06:00 07/17/23 05:21 Sodium Chloride 0.9 % 10 Ml Syringe IV-PUSH 07/15/24 05:59 10 ml QSHIFT HERNANDEZ Administration Sodium Chloride 10 ml 07/16/23 02:57 Sodium Chloride 0.9 % 10 Ml Vial.Pf INJECTION 07/15/24 02:56 PRN PRN Promethazine Dilution Trazodone HCl 200 mg 07/17/23 22:00 Trazodone 100 Mg Tablet PO 07/16/24 21:59 QHS [facility] A&P - Hospitalist Assessment/Plan (1) Acute on chronic pancreatitis: (2) Nausea & vomiting: (3) Abdominal pain: (4) Type 1 diabetes mellitus: (5) Crohns disease: Plan Acute on chronic pancreatitis Abdominal pain Nausea and vomiting ? Consult GI ? Please obtain records from regarding ERCP, MRCP ? Promethazine as needed ? Continue home meds?Creon ? IV hydration - CLD. Can advance when pain is improved. Today, pt very calm and comfortable appearing, yet asking specifically about having a Dilaudid [employer] pump. 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 She was agreeable to a pain management consult to discuss further. UTI?culture pending ? Continue cephalexin Chronic conditions T1DM?fingersticks ACHS, SSI C, basal insulin Crohn's disease?patient takes Humira SQ every 2 weeks DVT PPx-SCDs, enoxaparin Diet order-clear liquids, advance as tolerated CODE STATUS-full code Disposition: Will consider discharge when tolerating full diet without pain meds. Pain management consulted as pt adamant to have a dilaudid [employer] pump, despite appearing calm and comfortable. I will defer this to pain management. GI agrees with medical management and outpatient GI follow up and signed off. No further imaging or testing indicated this admission. Time Spent With Patient (min): 45 Documented By: Allen Borges DO 07/17/23 125 5 Signed By: <Electronically signed by Allen Borges DO> 07/17/23 1301 [facility] Work Phone: [phone] 614-228610-31-2023 Progress note Author Allen Borges [facility] July 16, 2023 2:33pm Note Date/Time July 16, 2023 2 :34pm [facility] [address] [place] [address] Progress Note Signed Patient: Julieth Spencer MR#: [id number] : 1985 Acct:[id number] Age/Sex: 37 / F Adm Date: 3 Loc: 4N Room: [address] [place] [address] Type: ADM IN Attending Dr: Allen Borges DO Copies to: ~ Date of Service: 07/16/2023 Progress Narrative Note PROGRESS NOTE Progress Note: Pt admitted after midnight by hospitalist for acute on chronic pancreatitis. Today, pt tolerating clear liquids without nausea but still with abdominal pain which is controlled by current pain regimen. Continuing IVF and pain control. Will continue clear liquids today and possibly advance diet tomorrow AM if pt upto trying more solid food. Will advance as pain tolerates. Will consider discharge when pain resolved and pt tolerating diet. GI consulted. Agree with assessment and plan as outlined in the H&P. Documented By: Allen Borges DO 07/16/23 143 2 Signed By: <Electronically signed by Allen Borges DO> 07/16/23 0543 [facility] Work Phone: [phone] Consult note Author Ant Holloway [facility] July 16, 2023 9:47am Note Date/Time July 16, 2023 9 :47am [facility] [address] [place], [place] [id number] Gastroenterology Consult Note Signed Patient: Julieth Spencer MR#: [id number] : 1985 Acct:[id number] Age/Sex: 37 / F Adm Date: 3 Loc: 4N Room: [address] [place] [address] Type: ADM IN Attending Dr: Allen Borges DO Copies to: DO Ant Delatorre MD Kyle T Cleveland, DO~ HPI Data of Consult Date of Consultation: 07/16/23 Requesting Physician: Allen Borges DO Consult Narrative History of present illness: Ms. Spencer is a 37 year old female who is admitted with acute on chronic pancreatitis. The patient has a very complicated GI history. She had an episode of what sounds like biliary pancreatitis in 2017 with subsequent removalof her gallbladder. Since then she has had multiple episodes of recurrent pancreatitis and there was some thought that this could be autoimmune pancreatitis. She eventually had genetic testing with IgG4 which was not consistent with autoimmune pancreatitis and then ultimately had undergone EUS with FNA showing fibrotic changes without evidence of autoimmune pancreatitis. Her chronic pancreatitis is also been attributed to history of alcohol use although she denies any significant use since 2019. She initially followed with and then had transferred her care for second opinion to [facility] and has undergone multiple EUS and ERCP's over the last several years. Most recently she has been following with Dr. Tray Burk with pancreatobiliary surgery at . She had planned to undergo a pancreatic surgery (suspect [place] versus total pancreatectomy, though records are unavailable) this November but decided to hold off on doing the surgery as she had been doing well for almost a full year. She has a history of narcotic dependent pain and follows with pain clinic and palliative care at [facility] as well. Reported history of Crohn's disease on Humira, last endoscopic evaluation in our system without active disease or evidence of Crohn's. She states that this feels like her typical pancreatic episodes and she could not manage this at home. cc:: CC: Allen Borges DO Review of Systems Constitutional Constitutional: Denies poor appetite and Denies weight loss Eyes Eyes: Denies change in vision and Denies eye discharge ENT Ears, Nose, Mouth, and Throat: Denies nasal discharge, Denies sore throat and Denies vertigo Cardiovascular Cardiovascular: Denies chest pain and Denies dyspnea on exertion Respiratory Respiratory: Denies chest congestion, Denies cough and Denies dyspnea on exertion Gastrointestinal Gastrointestinal: Reports as per HPI Musculoskeletal Musculoskeletal: Denies arthralgias, Denies muscle weakness and Denies numbness Integumentary/Breasts Skin/Breast: Denies change in pigmentation and Denies rash Neurologic Neurologic: Denies numbness and Denies vertigo Psychiatric Psychiatric: Denies anxiety and Denies depression Hematologic/Lymphatic Hematologic/Lymphatic: Denies easy bruising and Denies lymphadenopathy [facility] Medical History (Updated 07/15/23 @ 23:13 by Troy Haile DO) ADHD (attention deficit hyperactivity disorder) Anxiety Chronic pancreatitis Crohn disease 2007 Depression Diabetes Type 1 diabetes mellitus Surgical History (Updated 07/16/23 @ 02:16 by Gini Harper APRN) History of cholecystectomy History of ERCP Family History Mother Anxiety Grandparent Pancreatic cancer Social History Smoking Status: Former smoker Tobacco Type: cigarettes Substance Use Type: Marijuana Substance Abuse Comment: no alcohol use recently Social History Comments: lives with boyfriend Meds Medications and Allergies Allergies sulfamethoxazole [From Bactrim] Allergy (Verified 07/16/23 02:50) Rash trimethoprim [From Bactrim] Allergy (Verified 07/16/23 02:50) Rash morphine Adverse Reaction (Verified 07/16/23 02:50) Dizziness ondansetron [From Zofran] Adverse Reaction (Verified 07/16/23 02:50) Gastrointestinal Upset Home Medications insulin aspart U-100 100 unit/mL (3 mL) subcutaneous pen (Novolog FlexPen U-100 Insulin aspart) See Protocol subcut TID.WM.HS #10 mL 10/13/19 [Rx Confirmed 07/16/23] adalimumab 40 mg/0.4 mL subcutaneous pen kit (Humira(CF) Pen) 40 mg subcut Q2W 04/28/20 [History Confirmed 07/16/23] gabapentin 300 mg capsule (Neurontin) 600 mg PO TID 04/28/20 [History Confirmed 07/16/23] insulin glargine 100 unit/mL (3 mL) subcutaneous pen (Lantus Solostar U-100 Insulin) 8 unit subcut QAM 04/28/20 [History Confirmed 07/16/23] ypkjwb-rnfefarm-ccvqlow 36,000-114,000-180,000 unit capsule,delay rel (Creon) 1 cap PO TID 04/28/20 [History Confirmed 07/16/23] trazodone 100 mg tablet 200 mg PO QHS 04/28/20 [History Confirmed 07/16/23] loperamide 2 mg capsule 2 mg PO BID 30 days #60 caps 07/28/21 [Rx Confirmed 07/16/23] promethazine 12.5 mg tablet 12.5 mg PO Q6H PRN nausea and vomiting #30 tabs 07/28/21 [Rx Confirmed 07/16/23] atomoxetine 60 mg capsule 60 mg PO DAILY 07/16/23 [History Confirmed 07/16/23] cariprazine 1.5 mg capsule (Vraylar) 1.5 mg PO DAILY 07/16/23 [History Confirmed 07/16/23] dextromethorphan IR 45 mg-bupropion ER 105 mg biphasic tablet (Auvelity) tab PO 07/16/23 [History] hydromorphone 8 mg tablet (Dilaudid) 8 mg PO Q8H PRN Pain 07/16/23 [History Confirmed 07/16/23] lorazepam 0.5 mg tablet 0.5 mg PO BID 07/16/23 [History Confirmed 07/16/23] mirtazapine 7.5 mg tablet 7.5 mg PO QHS 07/16/23 [History Confirmed 07/16/23] oxycodone 15 mg tablet 15 mg PO Q4H PRN Pain 07/16/23 [History Confirmed 07/16/23] pantoprazole 40 mg tablet,delayed release 40 mg PO TID 07/16/23 [History Confirmed 07/16/23] Exam Physical Exam Vital Signs: Temp Pulse Resp BP Pulse Ox O2 Del Method 98.3 F 71 12 116/78 99 Room Air 07/16/23 08:09 07/16/23 08:09 07/16/23 08:09 07/16/23 08:09 07/16/23 08:09 07/16/23 08:09 Const General: no acute distress and well developed HEENT Head: normocephalic and atraumatic Mouth: moist mucous membranes Eyes Sclera: sclerae normal (no scleral icterus) EOM: EOM intact bilaterally Neck Other: trachea midline Resp Effort & Inspection: normal respiratory effort and able to speak in complete sentences GI Inspection: normal to inspection and non-distended Palpation: soft and nontender Skin General: turgor normal and no jaundice Neuro General: patient alert and patient oriented x3 Psych Appearance: grossly normal Mental Status: mental status grossly normal Results Labs Labs: Laboratory Results - last 24 hr 07/15/23 07/15/23 07/15/23 21:01 22:45 22:45 Corrected WBC 7.8 Uncorrected WBC Count 7.8 RBC 3.74 Hgb 11.9 Hct 35.1 MCV 93.7 MCH 31.9 MCHC 34.0 RDW 14.2 Plt Count 225 MPV 7.9 Neut % (Auto) 58.6 Lymph % (Auto) 34.4 [place] % (Auto) 5.3 Eos % (Auto) 1.0 Baso % (Auto) 0.7 Nucleat RBC Rel Count 0.1 Neut # (Auto) 4.6 Lymph # (Auto) 2.7 [place] # (Auto) 0.4 Eos # (Auto) 0.1 Baso # (Auto) 0.1 Monocyte Dist Width 21.41 H PHA Creatinine Clear 119.14 Sodium 135 L Potassium 3.9 Chloride 104 Carbon Dioxide 24.0 Anion Gap 10.9 BUN 10 Creatinine 0.54 L Est GFR (CKD-EPI) > 60.0 Glucose 95 POC Glucose Estimat Average Glucose Hemoglobin A1c Calcium 8.8 Total Bilirubin 0.5 Direct Bilirubin 0.10 Indirect Bilirubin 0.4 AST 17 ALT 21 Alkaline Phosphatase 88 Total Protein 7.2 Albumin 3.9 Globulin 3.3 Albumin/Globulin Ratio 1.2 Lipase 4.0 L Urine Color Yellow Urine Appearance Cloudy A Urine pH 6.5 Ur Specific [place] 1.023 Urine Protein Trace H Urine Glucose (UA) Normal Urine Ketones Negative Urine Occult Blood Negative Urine Nitrite Negative Urine Bilirubin Negative Urine Urobilinogen Normal Ur Leukocyte Esterase 1+ H Urine RBC 3-4 Urine WBC 5-9 H Ur Squamous Epith Cells 10-19 H Urine Bacteria 2+ H Hyaline Casts 0-8 Urine HCG, Qual Negative 07/16/23 07/16/23 05:57 08:12 Corrected WBC Uncorrected WBC Count RBC Hgb Hct MCV MCH MCHC RDW Plt Count MPV Neut % (Auto) Lymph % (Auto) [place] % (Auto) Eos % (Auto) Baso % (Auto) Nucleat RBC Rel Count Neut # (Auto) Lymph # (Auto) [place] # (Auto) Eos # (Auto) Baso # (Auto) Monocyte Dist Width PHA Creatinine Clear Sodium Potassium Chloride Carbon Dioxide Anion Gap BUN Creatinine Est GFR (CKD-EPI) Glucose POC Glucose 123 Estimat Average Glucose 120 Hemoglobin A1c 5.8 H Calcium Total Bilirubin Direct Bilirubin Indirect Bilirubin AST ALT Alkaline Phosphatase Total Protein Albumin Globulin Albumin/Globulin Ratio Lipase Urine Color Urine Appearance Urine pH Ur Specific [place] Urine Protein Urine Glucose (UA) Urine Ketones Urine Occult Blood Urine Nitrite Urine Bilirubin Urine Urobilinogen Ur Leukocyte Esterase Urine RBC Urine WBC Ur Squamous Epith Cells Urine Bacteria Hyaline Casts Urine HCG, Qual A&P - Gastroenterology Assessment/Plan (1) Elevated LFTs: Code(s): R94.5 - Abnormal results of liver function studies Status: Acute (2) Common bile duct dilatation: Code(s): K83.8 - Other specified diseases of biliary tract Status: Acute (3) Acute pancreatitis: Qualifiers: Acute pancreatitis complication: unspecified Pancreatitis type: unspecified pancreatitis type Qualified Code(s): K85.90 - Acute pancreatitis without necrosis or infection, unspecified Code(s): K85.90 - Acute pancreatitis without necrosis or infection, unspecified Status: Acute (4) Crohns disease: Code(s): K50.90 - Crohn's disease, unspecified, without complications Status: Chronic (5) Chronic pancreatitis: Code(s): K86.1 - Other chronic pancreatitis Status: Acute (6) Abdominal pain: Code(s): R10.9 - Unspecified abdominal pain Status: Acute (7) Nausea & vomiting: Code(s): R11.2 - Nausea with vomiting, unspecified Status: Acute Plan Her episode is consistent with an acute flare of her chronic pancreatitis. She has known dilated bile ducts and this has been extensively investigated over thepast 2 years with multiple diagnostic ERCPs and EUS, she does not need an MRCP which is less sensitive for detecting pathology then either the ERCP or EUS. 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 She needs medical management of her pancreatitis and then follow-up with Dr. Burk to discuss pancreatectomy. Thank you for this consult, little further to offer from a GI standpoint. I will sign off at this time. Documented By: Ant Holloway MD 07/16/2340 Signed By: <Electronically signed by Ant Holloway MD> 07/16/2369 [facility] Work Phone: [phone] 814-489710-24-2023 Miscellaneous Notes* Telephone Encounter - Erin Oleary RN - 07/09/2023 10:57 AM EDT The following approved medication requests have been transmitted electronically. Requested Prescriptions Signed Prescriptions Disp Refills oxyCODONE (ROXICODONE) 15 mg immediate release tablet 180 tablet 0 Sig: Take 1 tablet by mouth every 4 hours as needed for pain for up to 30 days. Authorizing Provider: RAMOS PAREKH HYDROmorphone (EXALGO) 8 mg ER tablet 60 tablet 0 Sig: Take 1 tablet by mouth two times a day for 30 days. Authorizing Provider: RAMOS PAREKH promethazine (PHENERGAN) 25 mg tablet 120 tablet 1 Sig: Take 1 tablet by mouth every 6 hours as needed. Authorizing Provider: RAMOS PAREKH RN * Telephone Encounter - Erin Oleary RN - 07/09/2023 10:55 AM EDT The following approved medication requests have been transmitted electronically. Requested Prescriptions Signed Prescriptions Disp Refills oxyCODONE (ROXICODONE) 15 mg immediate release tablet 180 tablet 0 Sig: Take 1 tablet by mouth every 4 hours as needed for pain for up to 30 days. Authorizing Provider: RAMOS PAREKH HYDROmorphone (EXALGO) 8 mg ER tablet 60 tablet 0 Sig: Take 1 tablet by mouth two times a day for 30 days. Authorizing Provider: RAMOS PAREKH promethazine (PHENERGAN) 25 mg tablet 120 tablet 1 Sig: Take 1 tablet by mouth every 6 hours as needed. Authorizing Provider: RAMOS PAREKH RN * Telephone Encounter - Ramos Parekh MD - 07/09/2023 10:40 AM EDT Scripts sent to pharmacy. * Telephone Encounter - Erin Oleary RN - 07/09/2023 10:07 AM EDT Please see Rx requests below. Upon further chart review, patient was referred to pain management and their office had to cancel patient appt on 07/04/23- due to provider out of office that day. Patient was rescheduled with pain management on 07/25/23, p,lease send enough medication to last patient until this appointment. Thank you, Erin Oleary RNCC, [facility] Manager Of Selection And Assessment * Telephone Encounter - Erin Oleary RN - 07/09/2023 10:02 AM EDT Patient phones requesting refills as follows: Promethazine last ordered 05/17/23 Both pain medications last ordered 06/12/23 Last pall med visit on 05/17/23 No future appt scheduled yet. Nurse will reach out to schedulers to schedule, since she is taking schedule 2 medication. Requested Prescriptions Pending Prescriptions Disp Refills oxyCODONE (ROXICODONE) 15 mg immediate release tablet 180 tablet 0 Sig: Take 1 tablet by mouth every 4 hours as needed for pain for up to 30 days. HYDROmorphone (EXALGO) 8 mg ER tablet 60 tablet 0 Sig: Take 1 tablet by mouth two times a day for 30 days. promethazine (PHENERGAN) 25 mg tablet 120 tablet 1 Sig: Take 1 tablet by mouth every 6 hours as needed. Please review and advise. Erin Oleary RN * Telephone Encounter - Mia Haile - 07/09/2023 9:51 AM EDT Julieth Spencer is calling Ramos Parekh MD today regarding Refill Request Patient has been identified by name and birthdate. Requesting delivery method: call/escript to: [facility] Additional Concern: N/A Requesting response back: N/A, no action needed [phone] (cell) Mia Haile July 09, 2023 [facility]23 Miscellaneous Notes* Telephone Encounter - Erin Oleary RN - 07/09/2023 10:05 AM EDT Duplicate note. Erin Oleary RN Manager Of Selection And Assessment documented in this encounterOhio [facility]09-07-2023 NotePatient Outreach (NETNAV) JULIETH SPENCER ([id number]) 1985 F Date Time Provider Department 05/23/23 NO PCP NETNAV During your visit today, we recorded the following information about you: Shayan eLos 05/23/2023 11:18 AM Signed POPULATION HEALTH NAVIGATION OUTREACH Action/FYI scheduled Patient Identified by Name and : YES, via phone Outreach Outcome/Action Spoke to patient / parent / legal guardian: Patient scheduled Did you use a PCP flex slot to schedule this appointment? N/A Reason for Outreach Care Gap or Scheduling/Wellness visits Payer: Payor: [facility] MEDICA[facility] / Plan: [facility] COMMUNITY PLAN MEDICAID [facility] / Product Type: Medicaid / Care Gap Reviewed:: Specialty Scheduling Reminder: Reminder note to check Health Maintenance for items below Health Maintenance items due: HBA1C Never done PNEUMOCOCCAL(1 - PCV) Never done URINE ALBUMIN:CREATININE RATIO Never done DILATED RETINAL EXAM Never done DIABETIC FOOT EXAM Never done MENINGOCOCCAL B: Consider based on risk(1 of 4 - Increased Risk) Never done MMR(1 of 2 - Risk 2-dose series) Never done LDL CHOLESTEROL Never done ANNUAL PCP TEAM CHRONIC DISEASE VISIT Never done HIV SCREENING Never done DTAP,TDAP,TD(1 - Tdap) Never done HEPATITIS A(1 of 2 - Risk 2-dose series) Never done SHINGRIX VACCINE(1 of 2) Never done PAP TESTING Never done HPV TESTING Never done COVID-19 VACCINE(3 - Moderna risk series) due on 04/30/2021 INFLUENZA(1) due on 05/17/2023 Navigation Signature: Shayan Pimentel May 23, 2023 11:18 AM Allergies As of Date: 05/23/2023 Noted Allergy Reaction BACTRIM (SULFAMETHOXAZOLE) 05/03/2014 2 - Rash MORPHINE 09/05/2014 14 - Other: See Comments Comments: Visual hallucinations Date Reviewed: 06/14/2022 Reviewed by: Cathy Carter, RN - Fully Assessed Prescriptions as of 05/23/2023 - HYDROmorphone (EXALGO) 8 mg ER tablet Take 1 tablet by mouth twice daily for 30 days. Do not start before May 23, 2023. - oxyCODONE (ROXICODONE) 15 mg immediate release tablet Take 1 tablet by mouth every 4 hours as needed for pain for up to 30 days. - promethazine (PHENERGAN) 25 mg tablet Take 1 tablet by mouth every 6 hours as needed. - qjipij-wktztcoj-sjzgfnf (CREON) 36,000-114,000- 180,000 unit delayed release capsule Take 2 capsules by mouth three times daily before meals. - adalimumab (HUMIRA) 40 mg/0.8 mL injection Inject 0.8 mL subcutaneously every 2 weeks. - busPIRone (BUSPAR) 10 mg tablet Take 10 mg by mouth twice daily. - traZODone (DESYREL) 100 mg tablet Take 100 mg by mouth daily at bedtime. - cyanocobalamin, vitamin B-12, 3,000 mcg cap Take 1 capsule by mouth once every month. - cholecalciferol (VITAMIN D3) 1,000 unit tab tablet Take 1,000 Units by mouth once daily. - DULoxetine (CYMBALTA) 60 mg capsule Take 60 mg by mouth once daily. - gabapentin (NEURONTIN) 800 mg tablet Take 800 mg by mouth three times daily. - BAQSIMI 3 mg/actuation nasal spray Use 1 [place] in the nose as needed. - insulin glargine (LANTUS SOLOSTAR, BASAGLAR KWIKPEN) 100 unit/mL (3 mL) Inject 20 Units subcutaneously q 24 HR. - pantoprazole DR (PROTONIX) 40 mg tablet Take 40 mg by mouth once daily. - sucralfate (CARAFATE) 1 gram tablet Take 1 g by mouth four times daily. - hyoscyamine SR (LEVBID) 0.375 mg 12 hr tablet Take 1 tablet by mouth q 12 HR. - acetaminophen (TYLENOL) 325 mg tablet Take 2 tablets by mouth every 6 hours as needed (Temp greater than 38.5C). 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] 09/05/2014 Depression [F32.A] 09/05/2014 Anxiety [F41.9] 09/05/2014 Diarrhea [R19.7] 09/08/2014 S/P ERCP [Z98.890] 06/06/2022 Type 1 diabetes mellitus without complication (*06/06/2022 Chronic pancreatitis (HCC) [K86.1] 06/06/2022 GERD (gastroesophageal reflux disease) [K21.9] 06/06/2022 Nicotine use disorder, F17.2 [F17.200] 06/06/2022 Malnutrition of moderate degree (HCC) [E44.0] 06/07/2022 Chronic calcific pancreatitis (HCC) [K86.1] 06/08/2022 Acute on chronic pancreatitis (HCC) [K85.90, K8*06/14/2022 06/14/2022 Encounter Status:Closed by SHAYAN LEOS on 05/23/23[facility] NoteHNO ID: [id number] Author: Shayan Leos Service: ? Author Type: ? Type: Progress Notes Filed: 05/23/2023 11:18 AM Note Text: POPULATION HEALTH NAVIGATION OUTREACH Action/FYI scheduled Patient Identified by Name and : YES, via phone Outreach Outcome/Action Spoke to patient / parent / legal guardian: Patient scheduled Did you use a PCP flex slot to schedule this appointment? N/A Reason for Outreach Care Gap or Scheduling/Wellness visits Payer: Payor: [facility] MEDICAID / Plan: [employer] COMM[employer]ITY [employer]AN MEDICAID [place] / Product Type: Medicaid / Care Gap Reviewed:: Specialty Scheduling Reminder: Reminder note to check Health Maintenance for items below Health Maintenance items due: HBA1C Never done PNEUMOCOCCAL(1 - PCV) Never done URINE ALBUMIN:CREATININE RATIO Never done DILATED RETINAL EXAM Never done DIABETIC FOOT EXAM Never done MENINGOCOCCAL B: Consider based on risk(1 of 4 - Increased Risk) Never done MMR(1 of 2 - Risk 2-dose series) Never done LDL CHOLESTEROL Never done ANNUAL PCP TEAM CHRONIC DISEASE VISIT Never done HIV SCREENING Never done DTAP,TDAP,TD(1 - Tdap) Never done HEPATITIS A(1 of 2 - Risk 2-dose series) Never done SHINGRIX VACCINE(1 of 2) Never done PAP TESTING Never done HPV TESTING Never done COVID-19 VACCINE(3 - Moderna risk series) due on 04/30/2021 INFLUENZA(1) due on 05/17/2023 Navigation Signature: Shayan Pimentel May 23, 2023 11:18 [facility]09-07-2023 History of Present illness Narrative* Shayan Leos - 05/23/2023 11:18 AM EDT POPULATION HEALTH NAVIGATION OUTREACH Action/FYI scheduled Patient Identified by Name and : YES, via phone Outreach Outcome/Action Spoke to patient / parent / legal guardian: Patient scheduled Did you use a PCP flex slot to schedule this appointment? N/A Reason for Outreach Care Gap or Scheduling/Wellness visits Payer: Payor: [facility] MEDICAID / Plan: [facility] PLAN MEDICAID OF [place] / Product Type: Medicaid / Care Gap Reviewed:: Specialty Scheduling Reminder: Reminder note to check Health Maintenance for items below Health Maintenance items due: HBA1C Never done PNEUMOCOCCAL(1 - PCV) Never done URINE ALBUMIN:CREATININE RATIO Never done DILATED RETINAL EXAM Never done DIABETIC FOOT EXAM Never done MENINGOCOCCAL B: Consider based on risk(1 of 4 - Increased Risk) Never done MMR(1 of 2 - Risk 2-dose series) Never done LDL CHOLESTEROL Never done ANNUAL PCP TEAM CHRONIC DISEASE VISIT Never done HIV SCREENING Never done DTAP,TDAP,TD(1 - Tdap) Never done HEPATITIS A(1 of 2 - Risk 2-dose series) Never done SHINGRIX VACCINE(1 of 2) Never done PAP TESTING Never done HPV TESTING Never done COVID-19 VACCINE(3 - Moderna risk series) due on 04/30/2021 INFLUENZA(1) due on 05/17/2023 Navigation Signature: Shayan Pimentel May 23, 2023 11:18 AM documented in this encounterOhio [facility]09-01-2023 NoteHNO ID: [id number] Author: Ramos Parekh MD Service: ? Author Type: Physician Type: Progress Notes Filed: 05/18/2023 12:59 AM Note Text: PALLIATIVE MEDICINE AT HOME INITIAL CONSULT SERVICE DATE: 05/17/2023 Referring Physician: SELF Primary Physician: Nat Medina DO IDENTIFICATION AND INTRODUCTION: Julieth Spencer is a 37 year old female This visit took place Virtually; I have communicated my name and active licensure. The patient's identity and physical location were verified at the time of this visit. The patient or their legal claims service representative has been informed of the risks and benefits of -- and alternatives to -- treatment through a remote evaluation and consents to proceed with the evaluation remotely. The patient is being seen alone REASON FOR CONSULT: Pain management Subjective Julieth Spencer is a 37 year old female with history of chronic non-alcoholic pancreatitis s/p multiple ERCP procedures Dr. Tray Dhillon is her GI at . There has been some discussion over the past 6 months about possible pancreatectomy. Currently, patient has GI bleeding, so this possibility is currently on hold pending workup of this issue. Patient with pain in upper abdomen, goes around to her back. Taking hydromorphone ER 8 mg twice a day. Her need for oxycodone 15 mg breakthrough has been variable. She has at least 20 days a month in which she needs a dose of oxycodone. 15 of those days, she finds she needs to take it every 4 hours regularly. About 10 days a month she finds she does not need breakthrough doses of medication at all. Currently pain is mostly epigastric, though when it is bad, it will travel up her back and be felt between her shoulder blades. Has tried celiac plexus block with pain management, but did not get any relief from this. SOCIAL HISTORY: Social History Tobacco Use Smoking status: Former Smokeless tobacco: Never Vaping Use Vaping Use: Former Substance Use Topics Alcohol use: Yes PAST MEDICAL HISTORY: No past medical history on file. PAST SURGICAL HISTORY: No past surgical history on file. CURRENT MEDICATIONS: pjpudv-bnsghapu-dbmpsek (CREON) 36,000-114,000- 180,000 unit delayed release capsule Take 2 capsules by mouth three times daily before meals. adalimumab (HUMIRA) 40 mg/0.8 mL injection Inject 0.8 mL subcutaneously every 2 weeks. busPIRone (BUSPAR) 10 mg tablet Take 10 mg by mouth twice daily. traZODone (DESYREL) 100 mg tablet Take 100 mg by mouth daily at bedtime. cyanocobalamin, vitamin B-12, 3,000 mcg cap Take 1 capsule by mouth once every month. cholecalciferol (VITAMIN D3) 1,000 unit tab tablet Take 1,000 Units by mouth once daily. DULoxetine (CYMBALTA) 60 mg capsule Take 60 mg by mouth once daily. gabapentin (NEURONTIN) 800 mg tablet Take 800 mg by mouth three times daily. BAQSIMI 3 mg/actuation nasal spray Use 1 [place] in the nose as needed. insulin glargine (LANTUS SOLOSTAR, BASAGLAR KWIKPEN) 100 unit/mL (3 mL) Inject 20 Units subcutaneously q 24 HR. oxyCODONE IR (ROXICODONE) 5 mg immediate release tablet Take 5 mg by mouth as needed. pantoprazole DR (PROTONIX) 40 mg tablet Take 40 mg by mouth once daily. sucralfate (CARAFATE) 1 gram tablet Take 1 g by mouth four times daily. promethazine (PHENERGAN) 25 mg tablet Take 25 mg by mouth every 6 hours as needed. hyoscyamine SR (LEVBID) 0.375 mg 12 hr tablet Take 1 tablet by mouth q 12 HR. acetaminophen (TYLENOL) 325 mg tablet Take 2 tablets by mouth every 6 hours as needed (Temp greater than 38.5C). ALLERGIES: ALLERGIES Allergen Reactions Bactrim [Sulfametho* Rash Morphine Other: See Comments Visual hallucinations FAMILY HISTORY: FAMILY HISTORY Problem Relation Age of Onset Colon Polyps No Family History Colon Cancer No Family History REVIEW OF SYSTEMS: Modified ESAS (Fowler Symptom Assessment Scale): Information Provided By: Patient Pain: See HPI Nausea: Moderate Loss of Appetite: Mild Constipation: None Shortness of Breath: None Drowsiness: None Tiredness: None Depression: None Anxiety: None How you feel overall: Fair Objective PHYSICAL EXAMINATION: General appearance: alert, in no acute distress Head: atraumatic, symmetric Skin: Intact, no rash, no notable lesions Eyes: Anicteric sclera. Extraocular movements are intact. Oropharynx: MMM Respiratory: breathing non-labored and no grunting/flaring/retractions Chest: equal chest risk with normal respiratory effort Abdomen: Abdomen soft, non-tender. Extremities: No clubbing or cyanosis. No edema. Musculoskeletal: No joint swelling or erythema. Neuro: alert and oriented x3 DATA: Diagnostic tests reviewed for today's visit: Most recent labs and imaging results. Creatinine Date Value Ref Range Status 06/09/2022 0.66 0.58 - 0.96 mg/dL Final CrCl cannot be calculated (Patient's most recent lab result is older than the maximum 180 days allowed.). Opioid (more content not included)...[facility]09-01-2023 History of Present illness Narrative* Ramos Parekh MD - 05/17/2023 3:36 PM EDT PALLIATIVE MEDICINE AT HOME INITIAL CONSULT SERVICE DATE: 05/17/2023 Referring Physician: SELF Primary Physician: Nat Medina DO IDENTIFICATION AND INTRODUCTION: Julieth Spencer is a 37 year old female This visit took place Virtually; I have communicated my name and active licensure. The patient's identity and physical location were verified at the time of this visit. The patient or their legal claims service representative has been informed of the risks and benefits of -- and alternatives to -- treatment through a remote evaluation and consents to proceed with the evaluation remotely. The patient is being seen alone REASON FOR CONSULT: Pain management Subjective Julieth Spencer is a 37 year old female with history of chronic non-alcoholic pancreatitis s/p multiple ERCP procedures Dr. Tray Dhillon is her GI at . There has been some discussion over the past 6 months about possible pancreatectomy. Currently, patient has GI bleeding, so this possibility is currently on hold pending workup of this issue. Patient with pain in upper abdomen, goes around to her back. Taking hydromorphone ER 8 mg twice a day. Her need for oxycodone 15 mg breakthrough has been variable. She has at least 20 days a month inwhich she needs a dose of oxycodone. 15 of those days, she finds she needs to take it every 4 hours regularly. About 10 days a month she finds she does not need breakthrough doses of medication at all. Currently pain is mostly epigastric, though when it is bad, it will travel up her back and be felt between her shoulder blades. Has tried celiac plexus block with pain management, but did not get any relief from this. SOCIAL HISTORY: Social History Tobacco Use Smoking status: Former Smokeless tobacco: Never Vaping Use Vaping Use: Former Substance Use Topics Alcohol use: Yes PAST MEDICAL HISTORY: No past medical history on file. PAST SURGICAL HISTORY: No past surgical history on file. CURRENT MEDICATIONS: gjcrlf-qhartfnx-irvigjd (CREON) 36,000-114,000- 180,000 unit delayed release capsule Take 2 capsules by mouth three times daily before meals. adalimumab (HUMIRA) 40 mg/0.8 mL injection Inject 0.8 mL subcutaneously every 2 weeks. busPIRone (BUSPAR) 10 mg tablet Take 10 mg by mouth twice daily. traZODone (DESYREL) 100 mg tablet Take 100 mg by mouth daily at bedtime. cyanocobalamin, vitamin B-12, 3,000 mcg cap Take 1 capsule by mouth once every month. cholecalciferol (VITAMIN D3) 1,000 unit tab tablet Take 1,000 Units by mouth once daily. DULoxetine (CYMBALTA) 60 mg capsule Take 60 mg by mouth once daily. gabapentin (NEURONTIN) 800 mg tablet Take 800 mg by mouth three times daily. BAQSIMI 3 mg/actuation nasal spray Use 1 [place] in the nose as needed. insulin glargine (LANTUS SOLOSTAR, BASAGLAR KWIKPEN) 100 unit/mL (3 mL) Inject 20 Units subcutaneously q 24 HR. oxyCODONE IR (ROXICODONE) 5 mg immediate release tablet Take 5 mg by mouth as needed. pantoprazole DR (PROTONIX) 40 mg tablet Take 40 mg by mouth once daily. sucralfate (CARAFATE) 1 gram tablet Take 1 g by mouth four times daily. promethazine (PHENERGAN) 25 mg tablet Take 25 mg by mouth every 6 hours as needed. hyoscyamine SR (LEVBID) 0.375 mg 12 hr tablet Take 1 tablet by mouth q 12 HR. acetaminophen (TYLENOL) 325 mg tablet Take 2 tablets by mouth every 6 hours as needed (Temp greaterthan 38.5C). ALLERGIES: ALLERGIES Allergen Reactions Bactrim [Sulfametho* Rash Morphine Other: See Comments Visual hallucinations FAMILY HISTORY: FAMILY HISTORY Problem Relation Age of Onset Colon Polyps No Family History Colon Cancer No Family History REVIEW OF SYSTEMS: Modified ESAS (Fowler Symptom Assessment Scale): Information Provided By: Patient Pain: See HPI Nausea: Moderate Loss of Appetite: Mild Constipation: None Shortness of Breath: None Drowsiness: None Tiredness: None Depression: None Anxiety: None How you feel overall: Fair Objective PHYSICAL EXAMINATION: General appearance: alert, in no acute distress Head: atraumatic, symmetric Skin: Intact, no rash, no notable lesions Eyes: Anicteric sclera. Extraocular movements are intact. Oropharynx: MMM Respiratory: breathing non-labored and no grunting/flaring/retractions Chest: equal chest risk with normal respiratory effort Abdomen: Abdomen soft, non-tender. Extremities: No clubbing or cyanosis. No edema. Musculoskeletal: No joint swelling or erythema. Neuro: alert and oriented x3 DATA: Diagnostic tests reviewed for today's visit: Most recent labs and imaging results. Creatinine Date Value Ref Range Status 06/09/2022 0.66 0.58 - 0.96 mg/dL Final CrCl cannot be calculated (Patient's most recent lab result is older than the maximum 180 days allowed.). Opioid Management: No Assessment & Plan Chronic Pancreatitis Chronic Abdominal Pain Nausea and Vomiting Protein-Calorie Malnutrition - Patient with ongoing pain management issues - Current regimen was started while she was admitted at [facility] in June 2022 - She remains open to alternate pain management options, but has had trouble finding other pain management options in her area ([place]) - We discussed options such as nerve blocks, non-invasive options (acupuncture, etc.), methadone, ketamine, etc. - We discussed that our group does not routinely manage pain unrelated to serious, life-limiting illness. That said, there may be a lot of benefit she could derive from a pain management referral, and they may hopefully be able to help wean her opiates down or even off. - Pain management referral placed - Given that I am her prior opiate prescriber, and given that no provider assumed long-term care ofmy clinic patients at , will prescribe her hydromorphone ER 8 mg twice daily and oxycodone 15 mg every 4 hours PRN until she is able to see pain management. Scripts sent today. - Also needs refill on promethazine 25 mg every 6 hours PRN for nausea. Script sent. Our department has identified criteria for timely palliative care involvement for managing pain in patients with serious, advanced illness which best reflects our clinical expertise and patient need.These guidelines are not used to determine which patients are appropriate for other palliative careservices. These criteria focus on the severity of the patient's serious illness and are adopted from the [facility] Hospice qualifying criteria. This patient does not currently meet our departmental criteria for assuming pain management. As such, I recommend consulting pain management for management of their chronic pancreatitis pain. Please do not hesitate to contact me in the event of a change in clinical status that would warrantfurther review for management of their pain. Next Visit: as needed n/a, depending on encounter with pain management Palliative Medicine Nurse to do telephonic follow-up: No Ict Quality Assurance Engineer Services: None at this time Referral to Immigration Case Manager: No, not at this time Recommendations will be communicated back to the consulting service by way of shared electronic medical record. Ramos Parekh MD May 17, 2023 3:36 PM This note may have been partially generated using the [employer] voice recognition system. While every effort was made to correct voice recognition errors, kindly be aware that some errors may occasionally occur. documented in this encounterOhio [facility]09-01-2023 Miscellaneous Notes* Telephone Encounter - Mary Patient Lead Sql DeveloperTorito - 05/17/2023 9:41 AM EDT Patient called in requesting to re-establish with . previous patient. Added on for today. Electronically signed by [facility] Patient Lead Sql Developer, Torito at 05/17/2023 9:51 AM EDT documented in this encounterOhio Valley Surgical Hospital07-26-2023 Evaluation note* Encounter Date Diagnosis Assessment Notes Treatment Notes Treatment Clinical Notes Mar, Type 1 diabetes mellitus with diabetic polyneuropathy (ICD-10 - E10.42) Inspect feet daily for cuts and calluses.Recommend diabetic shoes and inserts to prevent callus formation.Fall precautions. Mar, Type 1 diabetes mellitus with hyperglycemia (ICD-10 - E10.65) This patient is following a comprehensive diabetic treatment plan. They are checking their feet daily for calluses and nonhealing ulcers. They are being seen for yearly dilated eye examinations. Goals: SBP less than 130, LDL less than 100, FBS less than 140, AC and A1C less than 7%. They are checking their BS daily, will which are reviewed at the office visit. Continue regular routine monitoring of A1C,] Microalbumin, Dilated eye exam and Foot exam Mar, Gastroesophageal reflux disease with esophagitis without hemorrhage (ICD-10 - K21.00) Diet instructions: Smaller portions, avoid eating and laying flat, avoid eating or drinking prior to bedtime. Weight loss. 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 High protein diet Planning pancreatectomy/spl enectomy later this year Mar, Generalized anxiety disorder (ICD-10 - F41.1) Controlled presently but labile. Continue present treatment, keep active, f/u Psych Mar, Irritant contact dermatitis due to other agents (ICD-10 - L24.89) Secondary to wood beetle larvae. Moisturizers, antihistamines. Mar, Carpal tunnel syndrome, bilateral (ICD-10 - G56.03) Encouraged to use wrist splints Stretching exercises Planning surgery later this year Mar, Cigarette nicotine dependence in remission (ICD-10 - F17.211) Continue abstinence Nov, Vitamin B12 deficien cy anemia due to intrinsic factor deficiency (ICD-10 - D51.0) Pernicious anemia Continue B12 monthly injections [employer] [facility] Other 06-16-2023 Chief complaint Narrative - Reported* An interactive audio and video telecommunication system which permits real time communications between the patient (at the originating site) and provider (at the distant site) was utilized to providethis telehealth service. * Verbal consent was requested and obtained from JULIETH SPENCER on this date, 03/01/2023 08:30 AM , for a telehealth visit. * Patient has a follow-up for palliative care today. [facility] [address] Work Phone: [phone] Chief complaint Narrative - Reported* An interactive audio and video telecommunication system which permits real time communications between the patient (at the originating site) and provider (at the distant site) was utilized to providethis telehealth service. * Verbal consent was requested and obtained from JULIETH SPENCER on this date, 12/28/2022 10:00 AM , for a telehealth visit. * follow up for palliative care [facility] [address] DO Work Phone: [phone] Evaluation note* Encounter Date Diagnosis Assessment Notes Treatment Notes Treatment Clinical Notes Dec, Generalized anxiety disorder (ICD-10 - F41.1) Healthy diet, keep active, no change in medication. f/u counselor Dec, Dermatitis (ICD-10 - L30.9) Moisturizers, gentle soap and maintain clean home environment. Claritin, Benadryl as needed. Dec, Type 1 diabetes mellitus with hyperglycemia (ICD-10 - E10.65) This patient is following a comprehensive diabetic treatment plan. They are checking their feet daily for calluses and nonhealing ulcers. They are being seen for yearly dilated eye examinations. Goals: SBP less than 130, LDL less than 100, FBS less than 140, AC and A1C less than 7%. They are checking their BS daily, will which are reviewed at the office visit. Dec, Type 1 diabetes mellitus with diabetic polyneuropathy (ICD-10 - E10.42) Inspect feet daily for cuts and calluses.Recommend diabetic shoes and inserts to prevent callus formation.Fall precautions. Dec, Crohn's disease of small intestine with other complication (ICD-10 - K50.018) Healthy diet, low residue, high fiber' f/u GI Dec, Vitamin B12 deficiency (ICD-10 - E53.8) [employer] [facility] Other 03-27-2023 Evaluation note* Encounter Date Diagnosis Assessment Notes Treatment Notes Treatment Clinical Notes Nov, Generalized anxiety disorder (ICD-10 - F41.1) [employer] [facility] Other 03-01-2023 History of Present illness Narrative* Cancer presents to the palliative care clinic for follow-up of her chronic pain related to her chronic pancreatitis. She is doing little worse than when she was at her last visit. She stated that in November she was doing better, however now things have gotten worse. Her weight is down and her appetite is poor. She is having really bad nausea. The promethazine is working very well for her. She continues to report that she is having abdominal pain. Her current pain medications of hydromorphone extended release and oxycodone immediate release are working well for her. Some days are more rough than others. This past Saturday she almost went to the hospital, however she was able to stay at the hospital by drinking chamomile tea and getting in the hot sun been taking Ativan. For her pain she is prescribed hydromorphone ER 8 mg 1-2 times a day and oxycodone IR 15 mg every 4 hours as needed for pain. On bad days she takes the oxycodone about 4-5 times a day. She denied having any side effects. She is not sleeping well because of the pain here recently. She is also noticed that she has had bloodin her stool. She is going to schedule surgery to remove her pancreas soon[facility] She had no other concerns today. * I have personally reviewed the OARRS report for JULIETH SPENCER. I have considered the risks of abuse, dependence, addiction and diversion. [facility] [address] DO Work Phone: [phone]) [phone] Chief complaint Narrative - Reported* An interactive audio and video telecommunication system which permits real time communications between the patient (at the originating site) and provider (at the distant site) was utilized to providethis telehealth service. * Verbal consent was requested and obtained from JULIETH SPENCER on this date, 11/02/2022 08:00 AM , for a telehealth visit. * Palliative care follow up [facility] [address] Work Phone: [phone] Evaluation note* Encounter Date Diagnosis Assessment Notes Treatment Notes Treatment Clinical Notes Sep, Generalized anxiety disorder (ICD-10 - F41.1) [employer] Other 12-20-2022 History of Present illness Narrative* Ольга Simmons - 09/04/2022 8:28 AM EST ----- Sunday, September 04, 2022 at 9:52:26 AM ----- ----- Provider: Zach Chapin DDS -- Clinic: [place] [address] ----- INITIAL/COMPREHENSIVE EXAM Patient presents for an Initial Examination. Reviewed patient's medical history. Patient has a history of: . Chronic pancreatitis, Crohn's disease, Severe GERD, type I diabetes. No contraindications, patient is ready for treatment. Patient's chief complaint: Comp Exam I need some implants Pain Scale: 0/10 Radiographs taken today were: Panorex, 4 Bitewings and 1 PA Clinical Examination reveals: Patient is partially edentulous. However, she is interested in implant supported crowns and bridges. Oh is poor. Generalized plaque deposits observed as well as generalized inflammation. Patient disclosed that she brushes only once a day. No deep pockets or radiographic bone loss observed, patient'speriodontal diagnosis is gingivitis and she was scheduled for a regular prophylaxis. Restorative exam was completed and patient has extensive existing restorations , that include bridges and crowns. the following was observed: 1) Non restorable root tips planned for extraction of #11and #14. 2) Teeth #19 and #31 have failed RCT with active periapical lesions and Muse type II fractures. Restorative and endodontic prognosis is poor, do they were planned for extractions. 3) Caries observed on #29, planned for composite, 4) Margins on abutment teeth #2 and #4 have residual caries and are currently open. Bridge needs berenice replaced in its entirety. 5) Patient is interested to have missing teeth replaced through implant dentistry. Explained that bridges, posterior crowns and implants are not covered through patient'scurrent insurance and instructed the patient to apply for financial assistance. Soft tissue evaluation: Within Normal Limits TMJ evaluation: Normal TMJ Completed current status of dentition on the charting. Went over needs and treatment plan options with the patient. OHI were discussed with the patient. Written Instructions/AVS were also handed to the patient. Pt Concern: Full Exam was successfully done. Patient consented to the treatment plan. PRIOR: Not needed Next Visit: Prophy and Restorative documented in this [id number] Chief complaint Narrative - Reported* An interactive audio and video telecommunication system which permits real time communications between the patient (at the originating site) and provider (at the distant site) was utilized to providethis telehealth service. * Verbal consent was requested and obtained from JULIETH SPENCER on this date, 07/27/2022 08:30 AM , for a telehealth visit. * It's a check-up on how I am doing with the new medications he started, Hydromorphone and the Oxycodone. [facility] [address] Work Phone: [phone] 204-354411-11-2022 History of Present illness Narrative* Ms. Julieth Spencer is not doing well. Having a rough day today and yesterday. Has been having a flare up of pancreatitis and everything is worse. Currently unable to eat. She was unable to sleep last night. States that if she gets any worse she will have to go to the hospital. She could not refillher oxycodone ER due to insurance issues and has been using hydromorphone instead. Denies side effects from her medications. She thinks it is time to have her stent removed. * I have personally reviewed the OARRS report for JULIETH SPENCER. I have considered the risks of abuse, dependence, addiction and diversion. [facility] [address] Work Phone: [phone]) 563-100410-24-2022 Miscellaneous Notes* Telephone Encounter - Allison Mederos - 07/09/2022 3:48 PM EDT I faxed 05/10/22 Jovana office notes to Caprice Vazquez RN Automatic Riveting Machine Operator FERNANDEZ/DEEP Lopez, , Irena Mederos * Telephone Encounter - Allison Mederos - 07/09/2022 10:05 AM EDT Caprice Vazquez RN Automatic Riveting Machine Operator FERNANDEZ/DEEP Lopez. Left message requesting progress and treatment plan update on this pt. [phone]. for office notes. Allison Mederos documented in this encounterOhio [facility] Hospital10-21-2022 Chief complaint Narrative - Reported* An interactive audio and video telecommunication system which permits real time communications between the patient (at the originating site) and provider (at the distant site) was utilized to providethis telehealth service. * Verbal consent was requested and obtained from JULIETH SPENCER on this date, 07/06/2022 08:00 AM , for a telehealth visit. * follow up for palliative care [facility] [address] Work Phone: [phone] Miscellaneous Notes* Telephone Encounter - Alisa Harper Ma - 06/27/2022 5:23 PM EDT Spoke with patient, she said she doesn't think she wants to have the repeat ERCP done at a [facility] facility. She said she was not happy with the [facility]. She plans to schedule the procedure at a facility. I advised Julieth to call me back if she decides to schedule the repeat ERCP at [facility]. I also advised her that the procedure should be done 2 months from the first ERCP done on 06/06/22 Alisa Harper Ma * Telephone Encounter - Juhi Nino - 06/15/2022 11:17 AM EDT Spoke to patient she wants to call us back on Saturday with her schedule. * Telephone Encounter - Juhi Chacon [facility] - 06/12/2022 12:40 PM EDT Stefanie Solorzano APRN.MARGARET P [facility] [place] Procedure Pool; P [facility] [place] Clinical Pool; [facility] [place] Clinical Pool ERCP biliary stent change due 2 month follow up She lives out of town Likely leaving and being discharged tomorrow Stefanie Solorzano APRN.[employer] documented in this encounterOhio Valley [facility] Hospital09-29-2022 NoteHNO ID: [id number] Author: Albertina Matthews RN Service: Care Management Author Type: Registered Nurse Type: Care Mgt Progress Note Filed: 06/14/2022 3:08 PM Note Text: CARE MANAGEMENT DISCHARGE NOTE SERVICE DATE: 06/14/2022 SERVICE TIME: 1506 LOS: 6 days Admission Date: 06/06/2022 DISCHARGE ARRANGEMENT: Discharge Arrangement: Home with Self Care;Home with Relative TRANSPORTATION ARRANGEMENTS: Transportation Arrangements: Car ADDITIONAL CONTACT RESOURCES: NA Needs Prior to Discharge: Ready for Discharge Patient is medically cleared for discharge today. Patient will discharge home with self-care, family support. Patient is aware and agreeable to discharge plan. Family to transport patient home via car. SIGNATURE: Albertina Matthews RN PATIENT NAME: Julieth Spencer DATE: June 14, 2022 TIME: 3:06 PM PAGER/CONTACT #: [phone] History of Past illness Narrative* Problem Noted Date Resolved Date Acute on chronic pancreatitis 06/14/2022 documented as of this encounter (statuses as of 06/23/2022) [facility] History of Past illness Narrative* Problem Noted Date Resolved Date Acute on chronic pancreatitis 06/14/2022 documented as of this encounter (statuses as of 06/27/2022) [address]29-2022 History of Past illness Narrative* Problem Noted Date Resolved Date Acute on chronic pancreatitis 06/14/2022 documented as of this encounter (statuses as of 07/18/2022) [address]29-2022 History of Past illness Narrative* Problem Noted Date Diagnosed Date Resolved Date Acute on chronic pancreatitis 06/14/2022 06/14/2022 documented as of this encounter (statuses as of 05/17/2023) [address]29-2022 History of Past illness Narrative* Problem Noted Date Diagnosed Date Resolved Date Acute on chronic pancreatitis 06/14/2022 06/14/2022 documented as of this encounter (statuses as of 05/18/2023) [address]29-2022 History of Past illness Narrative* Problem Noted Date Diagnosed Date Resolved Date Acute on chronic pancreatitis 06/14/2022 06/14/2022 documented as of this encounter (statuses as of 05/23/2023) [address]29-2022 History of Past illness Narrative* Problem Noted Date Diagnosed Date Resolved Date Acute on chronic pancreatitis 06/14/2022 06/14/2022 documented as of this encounter (statuses as of 06/25/2023) [address]29-2022 History of Past illness Narrative* Problem Noted Date Diagnosed Date Resolved Date Acute on chronic pancreatitis 06/14/2022 06/14/2022 documented as of this encounter (statuses as of 07/09/2023) [address]29-2022 History of Past illness Narrative* Problem Noted Date Diagnosed Date Resolved Date Acute on chronic pancreatitis 06/14/2022 06/14/2022 documented as of this encounter (statuses as of 07/09/2023) [address]29-2022 History of Past illness Narrative* Problem Noted Date Diagnosed Date Resolved Date Acute on chronic pancreatitis 06/14/2022 06/14/2022 documented as of this encounter (statuses as of 07/18/2023) [address]29-2022 History of Past illness Narrative* Problem Noted Date Diagnosed Date Resolved Date Acute on chronic pancreatitis 06/14/2022 06/14/2022 documented as of this encounter (statuses as of 08/02/2023) [address]29-2022 History of Past illness Narrative* Problem Noted Date Diagnosed Date Resolved Date Acute on chronic pancreatitis 06/14/2022 06/14/2022 documented as of this encounter (statuses as of 08/20/2023) [address]29-2022 History of Past illness Narrative* Problem Noted Date Diagnosed Date Resolved Date Acute on chronic pancreatitis 06/14/2022 06/14/2022 documented as of this encounter (statuses as of 10/28/2023) [address]29-2022 History of Past illness Narrative* Problem Noted Date Diagnosed Date Resolved Date Acute on chronic pancreatitis 06/14/2022 06/14/2022 documented as of this encounter (statuses as of 11/07/2023) [address]29-2022 History of Past illness Narrative* Problem Noted Date Diagnosed Date Resolved Date Acute on chronic pancreatitis 06/14/2022 06/14/2022 documented as of this encounter (statuses as of 11/08/2023) [address]29-2022 History of Past illness Narrative* Problem Noted Date Diagnosed Date Resolved Date Acute on chronic pancreatitis 06/14/2022 06/14/2022 documented as of this encounter (statuses as of 11/08/2023) [address]29-2022 History of Past illness Narrative* Problem Noted Date Diagnosed Date Resolved Date Acute on chronic pancreatitis 06/14/2022 06/14/2022 documented as of this encounter (statuses as of 11/08/2023) [address]29-2022 History of Past illness Narrative* Problem Noted Date Diagnosed Date Resolved Date Acute on chronic pancreatitis 06/14/2022 06/14/2022 documented as of this encounter (statuses as of 11/13/2023) [address]29-2022 History of Past illness Narrative* Problem Noted Date Diagnosed Date Resolved Date Acute on chronic pancreatitis 06/14/2022 06/14/2022 documented as of this encounter (statuses as of 11/14/2023) [address]29-2022 History of Past illness Narrative* Problem Noted Date Diagnosed Date Resolved Date Acute on chronic pancreatitis 06/14/2022 06/14/2022 documented as of this encounter (statuses as of 11/14/2023) [address] History of Past illness Narrative* Problem Noted Date Diagnosed Date Resolved Date Acute on chronic pancreatitis 06/14/2022 06/14/2022 documented as of this encounter (statuses as of 11/15/2023) [facility] of Past illness Narrative* Problem Noted Date Diagnosed Date Resolved Date Acute on chronic pancreatitis 06/14/2022 06/14/2022 documented as of this encounter (statuses as of 12/06/2023) [facility] of Past illness Narrative* Problem Noted Date Diagnosed Date Resolved Date Acute on chronic pancreatitis 06/14/2022 06/14/2022 documented as of this encounter (statuses as of 12/07/2023) [facility] of Past illness Narrative* Problem Noted Date Diagnosed Date Resolved Date Acute on chronic pancreatitis 06/14/2022 06/14/2022 documented as of this encounter (statuses as of 12/10/2023) [facility] NoteHNO ID: [id number] Author: Caro Jackson MD Service: Hospital Medicine Author Type: Physician Type: Progress Notes Filed: 06/13/2022 2:59 PM Note Text: HOSPITAL MEDICINE PROGRESS NOTE Hospital Medicine Attending: Caro Jackson MD Date: June 13, 2022 2:57 PM NIGHT AND WEEKEND COVERAGE: Patient admitted to [facility] Hospitalist team 3 under From 7am - 5pm, please contact pager [phone] for patient issues. From 5pm - 7am, please contact the Night Hospitalist on pager [phone] for patient issues. CC/HPI abdominal pain SUBJECTIVE Patient's pain is improving. CT scan yesterday with some fat stranding concerning for an acute component of her chronic pancreatitis. 5/10 pain today in hypogastric area, tolerating diet, creon increased, some mild bleeding in her stools today with some rectal pain. Had a lot of BM . Objective BP 115/72 Pulse 73 Temp (Src) 98.4 (Oral) Resp 18 Ht 5' 3 (1.60m) Wt 100 lb (45.4kg) SpO2 100% LMP 01/11/2019 BMI 17.72 kg/(m2). O2 Therapy: Room Air Physical Exam: Constitutional: alert seems in pain Cardiovascular: RRR, no murmur Respiratory: clear bilaterally Abdomen: +BS, diffuse abdominal tenderness to minimal palpation, worse in mid abdomen Ext: No edema, moves all extremities Rectal exam: some external hemorrhoids, no bleeding, minimal pain on exam Lines, Drains, and Airways Line Duration Peripheral 06/06/22 0920 Short Left Antecubital 20 Gauge 7 days Reviewed lines, drains, AND airways. Need to be continued Medications: Reviewed Current Facility-Administered Medications Medication Dose Route Frequency ondansetron 4 mg tab(s) (ZOFRAN) 4 mg ORAL q 6 H PRN Or ondansetron (PF) 4 mg injection (ZOFRAN) 4 mg INTRAVENOUS q 6 H PRN prochlorperazine 10 mg injection (COMPAZINE) 10 mg INTRAVENOUS q 6 H PRN hydrALAZINE 5 mg injection (APRESOLINE) 5 mg INTRAVENOUS PRN NaCl 0.9% iv flush bag 20 mL INTRAVENOUS PRN sodium chloride 0.9 % (flush) 3-5 mL (BD POSIFLUSH) 3-5 mL INTRAVENOUS q 12 H acetaminophen 650 mg tab(s) (TYLENOL) 650 mg ORAL q 6 H PRN sucralfate 1 g tab(s) (CARAFATE) 1 g ORAL QID gabapentin 800 mg cap(s) (NEURONTIN) 800 mg ORAL TID pantoprazole DR 40 mg tab(s) (PROTONIX) 40 mg ORAL DAILY (6 AM) DULoxetine 60 mg cap(s) (CYMBALTA) 60 mg ORAL DAILY NaCl 0.9% iv flush bag 20 mL INTRAVENOUS PRN sodium chloride 0.9 % (flush) 3-5 mL (BD POSIFLUSH) 3-5 mL INTRAVENOUS q 12 H aluminum-magnesium hydroxide-simethicone 200-200-20 mg/5 mL 30 mL (MAALOX,MYLANTA,MAG-AL PLUS) 30 mL ORAL DAILY PRN dextrose 40 % 15 g 15 g ORAL PRN Or glucagon 1 mg injection 1 mg INTRAMUSCULAR PRN Or dextrose 10% iv bolus 12.5 g INTRAVENOUS PRN promethazine 25 mg tab(s) (PHENERGAN) 25 mg ORAL q 6 H PRN busPIRone 10 mg tab(s) (BUSPAR) 10 mg ORAL BID nicotine 14 mg/24 hr 1 Patch (NICODERM) 1 Patch TRANSDERMAL DAILY And nicotine -- REMOVE patch OTHER DAILY And nicotine - verify patch OTHER q 8 H insulin lispro (HumaLOG) 300 Units per 3mL vial for insulin pump (SELF ADMINISTERED) 300 Units SUBCUTANEOUS CONTINUOUS traZODone 100 mg tab(s) (DESYREL) 100 mg ORAL AT BEDTIME oxyCODONE IR 15 mg tab(s) (ROXICODONE) 15 mg ORAL q 4 H PRN iv contrast (radiology procedure) INTRAVENOUS DIRECTED PRN [id number] 2 capsule cap(s) (CREON 36) 2 capsule ORAL TID before MEALS [id number] 1 capsule cap(s) (CREON 12) 1 capsule ORAL PRN Diagnostic tests reviewed: Most recent labs and imaging results. Recent Labs 06/13/22 1051 06/11/22 0625 06/07/22 0544 WBC 5.95 6.19 7.22 HB 10.8* 10.5* 11.1* HCT 33.3* 32.9* 34.3* PLT 204 171 213 MCV 91.2 91.6 92.0 Recent Labs 06/09/22 1023 06/07/22 0545 NA 136 136 K 4.0 4.1 CHLOR 108* 107* CO2 21* 21* BUN 6* 12 CREAT 0.66 0.57* GLUC 117* 105* ANION 7* 8* CA 8.4* 8.4* TPROT -- 6.0* ALB -- 3.2* TBILI -- 0.2 ALKPHOS -- 72 AST -- 18 ALT -- 14 No results for input(s): CK, CKMB, TROPT in the last 168 hours. IMAGING ERCP Impression: 1. Previous biliary sphincterotomy appeared open but drainage was slow/poor>>stented. 2. Previous cholecystectomy. 3. biopsy of the major papilla performed>>>IgG 4 stain. Care made to avoid the pancreatic duct orifice. No attempt was made to instrument the pancreatic duct. Recommendation: 1. Await path results. 2. Update Dr Whaley in 4 weeks with symptoms. If not improved at all will bring back for repeat EUS with possible panceatic biospy. If improves>>will repeat ERCP in months for stent removal and possibe extension sphincterotomy. CT Pancreas on 06/08/2022 Redemonstration of findings of chronic pancreatitis. Mild peripancreatic stranding. Correlate for superimposed acute pancreatitis in the appropriate clinical setting. No peripancreatic fluid collection. Cholecystectomy changes and bile duct stent are present. Nutmeg appearance of the liver which can be seen with hepatic venous (more content not included)...[facility]09-27-2022 NoteHNO ID: [id number] Author: Caro Jackson MD Service: Hospital Medicine Author Type: Physician Type: Progress Notes Filed: 06/12/2022 3:12 PM Note Text: HOSPITAL MEDICINE PROGRESS NOTE Hospital Medicine Attending: Caro Jackson MD Date: June 12, 2022 3:09 PM NIGHT AND WEEKEND COVERAGE: Patient admitted to [facility] Hospitalist team 3 under From 7am - 5pm, please contact pager [phone] for patient issues. From 5pm - 7am, please contact the Night Hospitalist on pager [phone] for patient issues. CC/HPI abdominal p2ain SUBJECTIVE Patient's pain is improving. CT scan yesterday with some fat stranding concerning for an acute component of her chronic pancreatitis. She has been back and forth between NPO and a diet and today she is going to try a diet. Will discontinue IV pain meds tomorrow Objective BP 117/81 Pulse 73 Temp (Src) 98.1 (Oral) Resp 18 Ht 5' 3 (1.60m) Wt 100 lb (45.4kg) SpO2 97% LMP 01/11/2019 BMI 17.72 kg/(m2). O2 Therapy: Room Air Physical Exam: Constitutional: alert seems in pain Cardiovascular: RRR, no murmur Respiratory: clear bilaterally Abdomen: +BS, diffuse abdominal tenderness to minimal palpation, worse in mid abdomen Ext: No edema, moves all extremities Lines, Drains, and Airways Line Duration Peripheral 06/06/22 0920 Short Left Antecubital 20 Gauge 6 days Reviewed lines, drains, AND airways. Need to be continued Medications: Reviewed Current Facility-Administered Medications Medication Dose Route Frequency ondansetron 4 mg tab(s) (ZOFRAN) 4 mg ORAL q 6 H PRN Or ondansetron (PF) 4 mg injection (ZOFRAN) 4 mg INTRAVENOUS q 6 H PRN prochlorperazine 10 mg injection (COMPAZINE) 10 mg INTRAVENOUS q 6 H PRN hydrALAZINE 5 mg injection (APRESOLINE) 5 mg INTRAVENOUS PRN NaCl 0.9% iv flush bag 20 mL INTRAVENOUS PRN sodium chloride 0.9 % (flush) 3-5 mL (BD POSIFLUSH) 3-5 mL INTRAVENOUS q 12 H acetaminophen 650 mg tab(s) (TYLENOL) 650 mg ORAL q 6 H PRN sucralfate 1 g tab(s) (CARAFATE) 1 g ORAL QID gabapentin 800 mg cap(s) (NEURONTIN) 800 mg [address] TID [address]op[address] 40 mg tab(s) (PROTONIX) 40 mg ORAL DAILY (6 AM) DULoxetine 60 mg cap(s) (CYMBALTA) 60 mg ORAL DAILY NaCl 0.9% iv flush bag 20 mL INTRAVENOUS PRN sodium chloride 0.9 % (flush) 3-5 mL (BD POSIFLUSH) 3-5 mL INTRAVENOUS q 12 H aluminum-magnesium hydroxide-simethicone 200-200-20 mg/5 mL 30 mL (MAALOX,MYLANTA,MAG-AL PLUS) 30 mL ORAL DAILY PRN dextrose 40 % 15 g 15 g ORAL PRN Or glucagon 1 mg injection 1 mg INTRAMUSCULAR PRN Or dextrose 10% iv bolus 12.5 g INTRAVENOUS PRN promethazine 25 mg tab(s) (PHENERGAN) 25 mg ORAL q 6 H PRN busPIRone 10 mg tab(s) (BUSPAR) 10 mg ORAL BID nicotine 14 mg/24 hr 1 Patch (NICODERM) 1 Patch TRANSDERMAL DAILY And nicotine -- REMOVE patch OTHER DAILY And nicotine - verify patch OTHER q 8 H insulin lispro (HumaLOG) 300 Units per 3mL vial for insulin pump (SELF ADMINISTERED) 300 Units SUBCUTANEOUS CONTINUOUS traZODone 100 mg tab(s) (DESYREL) 100 mg ORAL AT BEDTIME oxyCODONE IR 15 mg tab(s) (ROXICODONE) 15 mg ORAL q 4 H PRN iv contrast (radiology procedure) INTRAVENOUS DIRECTED PRN dextrose 5% in NaCl 0.9% iv infusion 75 mL/hr INTRAVENOUS CONTINUOUS HYDROmorphone 1 mg injection (DILAUDID) 1 mg INTRAVENOUS q 6 H PRN [id number] 1 capsule cap(s) (CREON 36) 1 capsule ORAL TID before MEALS senna 8.6 mg tab(s) (SENOKOT) 8.6 mg ORAL BID docusate sodium 100 mg cap(s) (COLACE) 100 mg ORAL BID polyethylene glycol 3350 17 g packet (MIRALAX, GLYCOLAX) 17 g ORAL DAILY Diagnostic tests reviewed: Most recent labs and imaging results. Recent Labs 06/11/22 0625 06/07/22 0544 WBC 6.19 7.22 HB 10.5* 11.1* HCT 32.9* 34.3* PLT 171 213 MCV 91.6 92.0 Recent Labs 06/09/22 1023 06/07/22 0545 NA 136 136 K 4.0 4.1 CHLOR 108* 107* CO2 21* 21* BUN 6* 12 CREAT 0.66 0.57* GLUC 117* 105* ANION 7* 8* CA 8.4* 8.4* TPROT -- 6.0* ALB -- 3.2* TBILI -- 0.2 ALKPHOS -- 72 AST -- 18 ALT -- 14 No results for input(s): CK, CKMB, TROPT in the last 168 hours. IMAGING ERCP Impression: 1. Previous biliary sphincterotomy appeared open but drainage was slow/poor>>stented. 2. Previous cholecystectomy. 3. biopsy of the major papilla performed>>>IgG 4 stain. Care made to avoid the pancreatic duct orifice. No attempt was made to instrument the pancreatic duct. Recommendation: 1. Await path results. 2. Update Dr Whaley in 4 weeks with symptoms. If not improved at all will bring back for repeat EUS with possible panceatic biospy. If improves>>will repeat ERCP in months for stent removal and possibe extension sphincterotomy. CT Pancreas on 06/08/2022 Redemonstration of findings of chronic pancreatitis. Mild peripancreatic stranding. Correlate for superimposed acute pancreatitis in the appropriate clinical setting. No peripancreatic fluid collection. Cholecystectomy change (more content not included)...[facility] 06-12-2022 NoteHNO ID: [id number] Author: Albertina Matthews RN Service: Care Management Author Type: Registered Nurse Type: Care Mgt Progress Note Filed: 06/12/2022 11:31 AM Note Text: CARE MANAGEMENT PROGRESS NOTE SERVICE DATE: 06/12/2022 SERVICE TIME: 1129 LOS: 4 days Needs Prior to Discharge: To Be Determined Medical barriers to discharge: Medical clearance. Discharge plan discussed with: This CM met with patient bedside. Discharge plan: No skilled needs anticipated at time of discharge. Patient is admitted with pain after ERCP. GI following. Patient is independent prior to admission, from home with s/o Mami. CM to continue to follow. SIGNATURE: Albertina Matthews RN PATIENT NAME: Julieth Spencer DATE: June 12, 2022 TIME: 11:29 AM PAGER/CONTACT #: [phone] Miscellaneous Notes* Telephone Encounter - Tio Mar RPh - 06/11/2022 5:17 PM EDT Requested Prescriptions Pending Prescriptions Disp Refills adalimumab (HUMIRA) 40 mg/0.8 mL injection 2 Each 2 Sig: Inject 0.8 mL subcutaneously every 2 weeks. Patient currently filling Humira through [facility]. Above order pended for Humira refill Rxto be sent back to [facility] for continued filling. Thanks Please review and advise. Tio Mar RPh [facility] NoteHNO ID: [id number] Author: Caro Jackson MD Service: Hospital Medicine Author Type: Physician Type: Progress Notes Filed: 06/12/2022 8:15 AM Note Text: HOSPITAL MEDICINE PROGRESS NOTE Hospital Medicine Attending: Caro Jackson MD Date: June 11, 2022 1:48 PM NIGHT AND WEEKEND COVERAGE: Patient admitted to [facility] Hospitalist team 3 under From 7am - 5pm, please contact pager [phone] for patient issues. From 5pm - 7am, please contact the Night Hospitalist on pager [phone] for patient issues. CC/HPI abdominal p2ain SUBJECTIVE Patient continues to have intractable abdominal pain which she states is worse than her baseline pain. CT scan yesterday with some fat stranding concerning for an acute component of her chronic pancreatitis. She has been back and forth between NPO and a diet and today she tried some oatmeal and the pain has been severe this morning to the point that she prefers to be NPO again Objective BP 112/71 Pulse 59 Temp (Src) 98.1 (Oral) Resp 18 Ht 5' 3 (1.60m) Wt 100 lb (45.4kg) SpO2 97% LMP 01/11/2019 BMI 17.72 kg/(m2). O2 Therapy: Room Air Physical Exam: Constitutional: alert seems in pain Cardiovascular: RRR, no murmur Respiratory: clear bilaterally Abdomen: +BS, diffuse abdominal tenderness to minimal palpation, worse in mid abdomen Ext: No edema, moves all extremities Lines, Drains, and Airways Line Duration Peripheral 06/06/22 0920 Short Left Antecubital 20 Gauge 5 days Reviewed lines, drains, AND airways. Need to be continued Medications: Reviewed Current Facility-Administered Medications Medication Dose Route Frequency ondansetron 4 mg tab(s) (ZOFRAN) 4 mg ORAL q 6 H PRN Or ondansetron (PF) 4 mg injection (ZOFRAN) 4 mg INTRAVENOUS q 6 H PRN prochlorperazine 10 mg injection (COMPAZINE) 10 mg INTRAVENOUS q 6 H PRN hydrALAZINE 5 mg injection (APRESOLINE) 5 mg INTRAVENOUS PRN NaCl 0.9% iv flush bag 20 mL INTRAVENOUS PRN sodium chloride 0.9 % (flush) 3-5 mL (BD POSIFLUSH) 3-5 mL INTRAVENOUS q 12 H acetaminophen 650 mg tab(s) (TYLENOL) 650 mg ORAL q 6 H PRN sucralfate 1 g tab(s) (CARAFATE) 1 g ORAL QID gabapentin 800 mg cap(s) (NEURONTIN) 800 mg ORAL TID pantoprazole DR 40 mg tab(s) (PROTONIX) 40 mg ORAL DAILY (6 AM) DULoxetine 60 mg cap(s) (CYMBALTA) 60 mg ORAL DAILY NaCl 0.9% iv flush bag 20 mL INTRAVENOUS PRN sodium chloride 0.9 % (flush) 3-5 mL (BD POSIFLUSH) 3-5 mL INTRAVENOUS q 12 H aluminum-magnesium hydroxide-simethicone 200-200-20 mg/5 mL 30 mL (MAALOX,MYLANTA,MAG-AL PLUS) 30 mL ORAL DAILY PRN dextrose 40 % 15 g 15 g ORAL PRN Or glucagon 1 mg injection 1 mg INTRAMUSCULAR PRN Or dextrose 10% iv bolus 12.5 g INTRAVENOUS PRN promethazine 25 mg tab(s) (PHENERGAN) 25 mg ORAL q 6 H PRN busPIRone 10 mg tab(s) (BUSPAR) 10 mg ORAL BID nicotine 14 mg/24 hr 1 Patch (NICODERM) 1 Patch TRANSDERMAL DAILY And nicotine -- REMOVE patch OTHER DAILY And nicotine - verify patch OTHER q 8 H insulin lispro (HumaLOG) 300 Units per 3mL vial for insulin pump (SELF ADMINISTERED) 300 Units SUBCUTANEOUS CONTINUOUS traZODone 100 mg tab(s) (DESYREL) 100 mg ORAL AT BEDTIME oxyCODONE IR 15 mg tab(s) (ROXICODONE) 15 mg ORAL q 4 H PRN iv contrast (radiology procedure) INTRAVENOUS DIRECTED PRN dextrose 5% in NaCl 0.9% iv infusion 75 mL/hr INTRAVENOUS CONTINUOUS HYDROmorphone 1 mg injection (DILAUDID) 1 mg INTRAVENOUS q 6 H PRN [id number]-lpoludl 1 capsule cap(s) (CREON 36) 1 capsule ORAL TID before MEALS senna 8.6 mg tab(s) (SENOKOT) 8.6 mg ORAL BID docusate sodium 100 mg cap(s) (COLACE) 100 mg ORAL BID Diagnostic tests reviewed: Most recent labs and imaging results. Recent Labs 06/11/22 0625 06/07/22 0544 WBC 6.19 7.22 HB 10.5* 11.1* HCT 32.9* 34.3* PLT 171 213 MCV 91.6 92.0 Recent Labs 06/09/22 1023 06/07/22 0545 NA 136 136 K 4.0 4.1 CHLOR 108* 107* CO2 21* 21* BUN 6* 12 CREAT 0.66 0.57* GLUC 117* 105* ANION 7* 8* CA 8.4* 8.4* TPROT -- 6.0* ALB -- 3.2* TBILI -- 0.2 ALKPHOS -- 72 AST -- 18 ALT -- 14 No results for input(s): CK, CKMB, TROPT in the last 168 hours. IMAGING ERCP Impression: 1. Previous biliary sphincterotomy appeared open but drainage was slow/poor>>stented. 2. Previous cholecystectomy. 3. biopsy of the major papilla performed>>>IgG 4 stain. Care made to avoid the pancreatic duct orifice. No attempt was made to instrument the pancreatic duct. Recommendation: 1. Await path results. 2. Update Dr Whaley in 4 weeks with symptoms. If not improved at all will bring back for repeat EUS with possible panceatic biospy. If improves>>will repeat ERCP in months for stent removal and possibe extension sphincterotomy. CT Pancreas on 06/08/2022 Redemonstration of findings of chronic pancreatitis. Mild peripancreatic stranding. Correlate for superimposed acute pancreatitis in the appropriate clinical setting. No peripancreat (more content not included)...[facility]09-26-2022 History of Present illness Narrative* Stefanie Solorzano APRN.CNP - 06/11/2022 12:00 PM EDT Humira ordered --- Discussed with patient that order was placed about 6 weeks ago -- She has not received the humira since then and just now notified me of not having it available. Order was previously sent to [facility] Order was placed again to [facility] and I would anticipate communication with our office if there is an issue with coverage DDSI was added to communications regarding her HUMIRA dosing. Stefanie Solorzano APRN.MARGARET documented [facility]-2022 NoteHNO ID: [id number] Author: Caro Jackson MD Service: Hospital Medicine Author Type: Physician Type: Progress Notes Filed: 06/10/2022 1:44 PM Note Text: HOSPITAL MEDICINE PROGRESS NOTE Hospital Medicine Attending: Caro Jackson MD Date: June 10, 2022 1:41 PM NIGHT AND WEEKEND COVERAGE: Patient admitted to [facility] Hospitalist team [address] Soraida Steinberg From 7am - 5pm, please contact pager [phone] for patient issues. From 5pm - 7am, please contact the Night Hospitalist on pager [phone] for patient issues. CC/HPI abdominal pain SUBJECTIVE Patient continues to have intractable abdominal pain which she states is worse than her baseline pain. CT scan yesterday with some fat stranding concerning for an acute component of her chronic pancreatitis. She was evaluated by gastroenterology this morning and has been made n.p.o. again. She states her pain is not controlled 05/26 currently, states she typically gets 1 mg of Dilaudid in the hospital. Objective BP 105/63 Pulse 57 Temp (Src) 98.1 (Oral) Resp 16 Ht 5' 3 (1.60m) Wt 100 lb (45.4kg) SpO2 97% LMP 01/11/2019 BMI 17.72 kg/(m2). O2 Therapy: Room Air Physical Exam: Constitutional: alert seems in pain Cardiovascular: RRR, no murmur Respiratory: clear bilaterally Abdomen: +BS, diffuse abdominal tenderness to minimal palpation Ext: No edema, moves all extremities Lines, Drains, and Airways Line Duration Peripheral 06/06/22 0920 Short Left Antecubital 20 Gauge 4 days Reviewed lines, drains, AND airways. Need to be continued Medications: Reviewed Current Facility-Administered Medications Medication Dose Route Frequency ondansetron 4 mg tab(s) (ZOFRAN) 4 mg ORAL q 6 H PRN Or ondansetron (PF) 4 mg injection (ZOFRAN) 4 mg INTRAVENOUS q 6 H PRN prochlorperazine 10 mg injection (COMPAZINE) 10 mg INTRAVENOUS q 6 H PRN hydrALAZINE 5 mg injection (APRESOLINE) 5 mg INTRAVENOUS PRN NaCl 0.9% iv flush bag 20 mL INTRAVENOUS PRN sodium chloride 0.9 % (flush) 3-5 mL (BD POSIFLUSH) 3-5 mL INTRAVENOUS q 12 H acetaminophen 650 mg tab(s) (TYLENOL) 650 mg ORAL q 6 H PRN sucralfate 1 g tab(s) (CARAFATE) 1 g ORAL QID gabapentin 800 mg cap(s) (NEURONTIN) 800 mg ORAL TID pantoprazole DR 40 mg tab(s) (PROTONIX) 40 mg ORAL DAILY (6 AM) DULoxetine 60 mg cap(s) (CYMBALTA) 60 mg ORAL DAILY NaCl 0.9% iv flush bag 20 mL INTRAVENOUS PRN sodium chloride 0.9 % (flush) 3-5 mL (BD POSIFLUSH) 3-5 mL INTRAVENOUS q 12 H aluminum-magnesium hydroxide-simethicone 200-200-20 mg/5 mL 30 mL (MAALOX,MYLANTA,MAG-AL PLUS) 30 mL ORAL DAILY PRN dextrose 40 % 15 g 15 g ORAL PRN Or glucagon 1 mg injection 1 mg INTRAMUSCULAR PRN Or dextrose 10% iv bolus 12.5 g INTRAVENOUS PRN promethazine 25 mg tab(s) (PHENERGAN) 25 mg ORAL q 6 H PRN busPIRone 10 mg tab(s) (BUSPAR) 10 mg ORAL BID nicotine 14 mg/24 hr 1 Patch (NICODERM) 1 Patch TRANSDERMAL DAILY And nicotine -- REMOVE patch OTHER DAILY And nicotine - verify patch OTHER q 8 H insulin lispro (HumaLOG) 300 Units per 3mL vial for insulin pump (SELF ADMINISTERED) 300 Units SUBCUTANEOUS CONTINUOUS traZODone 100 mg tab(s) (DESYREL) 100 mg ORAL AT BEDTIME oxyCODONE IR 15 mg tab(s) (ROXICODONE) 15 mg ORAL q 4 H PRN iv contrast (radiology procedure) INTRAVENOUS DIRECTED PRN dextrose 5% in NaCl 0.9% iv infusion 75 mL/hr INTRAVENOUS CONTINUOUS HYDROmorphone 1 mg injection (DILAUDID) 1 mg INTRAVENOUS q 6 H PRN Diagnostic tests reviewed: Most recent labs and imaging results. Recent Labs 06/07/22 0544 WBC 7.22 HB 11.1* HCT 34.3* PLT 213 MCV 92.0 Recent Labs 06/09/22 1023 06/07/22 0545 NA 136 136 K 4.0 4.1 CHLOR 108* 107* CO2 21* 21* BUN 6* 12 CREAT 0.66 0.57* GLUC 117* 105* ANION 7* 8* CA 8.4* 8.4* TPROT -- 6.0* ALB -- 3.2* TBILI -- 0.2 ALKPHOS -- 72 AST -- 18 ALT -- 14 No results for input(s): CK, CKMB, TROPT in the last 168 hours. IMAGING ERCP Impression: 1. Previous biliary sphincterotomy appeared open but drainage was slow/poor>>stented. 2. Previous cholecystectomy. 3. biopsy of the major papilla performed>>>IgG 4 stain. Care made to avoid the pancreatic duct orifice. No attempt was made to instrument the pancreatic duct. Recommendation: 1. Await path results. 2. Update Dr Whaley in 4 weeks with symptoms. If not improved at all will bring back for repeat EUS with possible panceatic biospy. If improves>>will repeat ERCP in months for stent removal and possibe extension sphincterotomy. CT Pancreas on 06/08/2022 Redemonstration of findings of chronic pancreatitis. Mild peripancreatic stranding. Correlate for superimposed acute pancreatitis in the appropriate clinical setting. No peripancreatic fluid collection. Cholecystectomy changes and bile duct stent are present. Nutmeg appearance of the liver which can be seen with hepatic venous congestion. 3 mm lingular nodule, not demonstrated pr (more content not included)... [facility]09-24-2022 NoteHNO ID: [id number] Author: Soraida Steinberg MD Service: Hospital Medicine Author Type: Physician Type: Progress Notes Filed: 06/09/2022 3:35 PM Note Text: HOSPITAL MEDICINE PROGRESS NOTE Hospital Medicine Attending: Soraida Steinberg MD NIGHT AND WEEKEND COVERAGE: Patient admitted to [facility] Hospitalist team [address] Soraida Steinberg From 7am - 5pm, please contact pager [phone] for patient issues. From 5pm - 7am, please contact the Night Hospitalist on pager [phone] for patient issues. CC/HPI abdominal pain SUBJECTIVE Patient continues to have intractable abdominal pain which she states is worse than her baseline pain. CT scan yesterday with some fat stranding concerning for an acute component of her chronic pancreatitis. She was evaluated by gastroenterology this morning and has been made n.p.o. again. She is asking that her Dilaudid be increased, states she typically gets 1 mg of Dilaudid in the hospital. Objective BP 105/67 Pulse 58 Temp (Src) 98.1 (Oral) Resp 18 Ht 5' 3 (1.60m) Wt 100 lb (45.4kg) SpO2 100% LMP 01/11/2019 BMI 17.72 kg/(m2). O2 Therapy: Room Air Physical Exam: Constitutional: alert and oriented HEENT: supple neck Cardiovascular: RRR, no murmur Respiratory: clear bilaterally Abdomen: +BS, diffuse abdominal tenderness to minimal palpation Musculoskeletal: ROM intact, no edema Neuro: grossly intact, moving all extremities Skin: no new lesions Lines, Drains, and Airways Line Duration Peripheral 06/06/22 0920 Short Left Antecubital 20 Gauge 3 days Reviewed lines, drains, AND airways. Need to be continued Medications: Reviewed Current Facility-Administered Medications Medication Dose Route Frequency ondansetron 4 mg tab(s) (ZOFRAN) 4 mg ORAL q 6 H PRN Or ondansetron (PF) 4 mg injection (ZOFRAN) 4 mg INTRAVENOUS q 6 H PRN prochlorperazine 10 mg injection (COMPAZINE) 10 mg INTRAVENOUS q 6 H PRN hydrALAZINE 5 mg injection (APRESOLINE) 5 mg INTRAVENOUS PRN NaCl 0.9% iv flush bag 20 mL INTRAVENOUS PRN sodium chloride 0.9 % (flush) 3-5 mL (BD POSIFLUSH) 3-5 mL INTRAVENOUS q 12 H acetaminophen 650 mg tab(s) (TYLENOL) 650 mg ORAL q 6 H PRN sucralfate 1 g tab(s) (CARAFATE) 1 g ORAL QID gabapentin 800 mg cap(s) (NEURONTIN) 800 mg ORAL TID pantoprazole DR 40 mg tab(s) (PROTONIX) 40 mg ORAL DAILY (6 AM) DULoxetine 60 mg cap(s) (CYMBALTA) 60 mg ORAL DAILY NaCl 0.9% iv flush bag 20 mL INTRAVENOUS PRN sodium chloride 0.9 % (flush) 3-5 mL (BD POSIFLUSH) 3-5 mL INTRAVENOUS q 12 H aluminum-magnesium hydroxide-simethicone 200-200-20 mg/5 mL 30 mL (MAALOX,MYLANTA,MAG-AL PLUS) 30 mL ORAL DAILY PRN dextrose 40 % 15 g 15 g ORAL PRN Or glucagon 1 mg injection 1 mg INTRAMUSCULAR PRN Or dextrose 10% iv bolus 12.5 g INTRAVENOUS PRN promethazine 25 mg tab(s) (PHENERGAN) 25 mg ORAL q 6 H PRN busPIRone 10 mg tab(s) (BUSPAR) 10 mg ORAL BID nicotine 14 mg/24 hr 1 Patch (NICODERM) 1 Patch TRANSDERMAL DAILY And nicotine -- REMOVE patch OTHER DAILY And nicotine - verify patch OTHER q 8 H insulin lispro (HumaLOG) 300 Units per 3mL vial for insulin pump (SELF ADMINISTERED) 300 Units SUBCUTANEOUS CONTINUOUS traZODone 100 mg tab(s) (DESYREL) 100 mg ORAL AT BEDTIME oxyCODONE IR 15 mg tab(s) (ROXICODONE) 15 mg ORAL q 4 H PRN iv contrast (radiology procedure) INTRAVENOUS DIRECTED PRN NaCl 0.9% iv infusion 75 mL/hr INTRAVENOUS CONTINUOUS HYDROmorphone 0.5 mg injection (DILAUDID) 0.5 mg INTRAVENOUS q 6 H PRN HYDROmorphone 1 mg injection (DILAUDID) 1 mg INTRAVENOUS ONCE Diagnostic tests reviewed: Most recent labs and imaging results. Recent Labs 06/07/22 0544 WBC 7.22 HB 11.1* HCT 34.3* PLT 213 MCV 92.0 Recent Labs 06/09/22 1023 06/07/22 0545 NA 136 136 K 4.0 4.1 CHLOR 108* 107* CO2 21* 21* BUN 6* 12 CREAT 0.66 0.57* GLUC 117* 105* ANION 7* 8* CA 8.4* 8.4* TPROT -- 6.0* ALB -- 3.2* TBILI -- 0.2 ALKPHOS -- 72 AST -- 18 ALT -- 14 No results for input(s): CK, CKMB, TROPT in the last 168 hours. IMAGING ERCP Impression: 1. Previous biliary sphincterotomy appeared open but drainage was slow/poor>>stented. 2. Previous cholecystectomy. 3. biopsy of the major papilla performed>>>IgG 4 stain. Care made to avoid the pancreatic duct orifice. No attempt was made to instrument the pancreatic duct. Recommendation: 1. Await path results. 2. Update Dr Whaley in 4 weeks with symptoms. If not improved at all will bring back for repeat EUS with possible panceatic biospy. If improves>>will repeat ERCP in months for stent removal and possibe extension sphincterotomy. CT Pancreas on 06/08/2022 Redemonstration of findings of chronic pancreatitis. Mild peripancreatic stranding. Correlate for superimposed acute pancreatitis in the appropriate clinical setting. No peripancreatic fluid collection. Cholecystectomy changes and bile duct stent are present. Nutmeg appearance of the liver which (more content not included)...[facility]09-23-2022 NoteHNO ID: [id number] Author: Albertina Matthews RN Service: Care Management Author Type: Registered Nurse Type: Care Mgt Progress Note Filed: 06/08/2022 2:57 PM Note Text: CARE MANAGEMENT PROGRESS NOTE SERVICE DATE: 06/08/2022 SERVICE TIME: 1451 LOS: 0 days Needs Prior to Discharge: To Be Determined Medical barriers to discharge: Medical clearance. Discharge plan discussed with: This CM met with patient bedside. Discharge plan: Patient with no skilled needs anticipated at time of discharge. Patient is independent prior to admission. Patient admitted with pain and nausea after ERCP. CT pancreas ordered. GI follow. Full liquid diet at this time. Patient with history of crohn disease, chronic pancreatitis, diabetes/insulin pump. Patient states her s/o Mami would transport her home at time of discharge. CM to continue to follow. SIGNATURE: Albertina Matthews RN PATIENT NAME: Julieth Spencer DATE: June 08, 2022 TIME: 2:50 PM PAGER/CONTACT #: [phone] NoteHNO ID: [id number] Author: Soraida Steinberg MD Service: Hospital Medicine Author Type: Physician Type: Progress Notes Filed: 06/08/2022 5:31 PM Note Text: HOSPITAL MEDICINE PROGRESS NOTE Hospital Medicine Attending: Soraida Steinberg MD NIGHT AND WEEKEND COVERAGE: Patient admitted to [facility] Hospitalist team [address] Soraida Steinberg From 7am - 5pm, please contact pager [phone] for patient issues. From 5pm - 7am, please contact the Night Hospitalist on pager [phone] for patient issues. CC/HPI abdominal pain SUBJECTIVE Patient continues to have severe abdominal pain. CT scan today did show some pancreatic fat stranding concerning for acute component on top of her chronic pancreatitis. Currently advanced to full liquid diet. Given findings of acute component on her chronic pancreatitis, will defer further advancement to GI. Objective BP 110/68 Pulse 57 Temp (Src) 98.4 (Oral) Resp 18 Ht 5' 3 (1.60m) Wt 100 lb (45.4kg) SpO2 100% LMP 01/11/2019 BMI 17.72 kg/(m2). O2 Therapy: Room Air Physical Exam: Constitutional: alert and oriented HEENT: supple neck Cardiovascular: RRR, no murmur Respiratory: clear bilaterally Abdomen: +BS, diffuse abdominal tenderness to minimal palpation Musculoskeletal: ROM intact, no edema Neuro: grossly intact, moving all extremities Skin: no new lesions Lines, Drains, and Airways Line Duration Peripheral 06/06/22 0920 Short Left Antecubital 20 Gauge 2 days Reviewed lines, drains, AND airways. Need to be continued Medications: Reviewed Current Facility-Administered Medications Medication Dose Route Frequency ondansetron 4 mg tab(s) (ZOFRAN) 4 mg ORAL q 6 H PRN Or ondansetron (PF) 4 mg injection (ZOFRAN) 4 mg INTRAVENOUS q 6 H PRN prochlorperazine 10 mg injection (COMPAZINE) 10 mg INTRAVENOUS q 6 H PRN hydrALAZINE 5 mg injection (APRESOLINE) 5 mg INTRAVENOUS PRN NaCl 0.9% iv flush bag 20 mL INTRAVENOUS PRN sodium chloride 0.9 % (flush) 3-5 mL (BD POSIFLUSH) 3-5 mL INTRAVENOUS q 12 H dextrose 5% in NaCl 0.45% iv infusion 75 mL/hr INTRAVENOUS CONTINUOUS acetaminophen 650 mg tab(s) (TYLENOL) 650 mg ORAL q 6 H PRN sucralfate 1 g tab(s) (CARAFATE) 1 g ORAL QID gabapentin 800 mg cap(s) (NEURONTIN) 800 mg [address] TID pant[address] 40 mg tab(s) (PROTONIX) 40 mg ORAL DAILY (6 AM) DULoxetine 60 mg cap(s) (CYMBALTA) 60 mg ORAL DAILY NaCl 0.9% iv flush bag 20 mL INTRAVENOUS PRN sodium chloride 0.9 % (flush) 3-5 mL (BD POSIFLUSH) 3-5 mL INTRAVENOUS q 12 H aluminum-magnesium hydroxide-simethicone 200-200-20 mg/5 mL 30 mL (MAALOX,MYLANTA,MAG-AL PLUS) 30 mL ORAL DAILY PRN dextrose 40 % 15 g 15 g ORAL PRN Or glucagon 1 mg injection 1 mg INTRAMUSCULAR PRN Or dextrose 10% iv bolus 12.5 g INTRAVENOUS PRN promethazine 25 mg tab(s) (PHENERGAN) 25 mg ORAL q 6 H PRN busPIRone 10 mg tab(s) (BUSPAR) 10 mg ORAL BID nicotine 14 mg/24 hr 1 Patch (NICODERM) 1 Patch TRANSDERMAL DAILY And nicotine -- REMOVE patch OTHER DAILY And nicotine - verify patch OTHER q 8 H insulin lispro (HumaLOG) 300 Units per 3mL vial for insulin pump (SELF ADMINISTERED) 300 Units SUBCUTANEOUS CONTINUOUS traZODone 100 mg tab(s) (DESYREL) 100 mg ORAL AT BEDTIME HYDROmorphone 0.2 mg injection (DILAUDID) 0.2 mg INTRAVENOUS q 6 H PRN oxyCODONE IR 15 mg tab(s) (ROXICODONE) 15 mg ORAL q 4 H PRN iv contrast (radiology procedure) INTRAVENOUS DIRECTED PRN Diagnostic tests reviewed: Most recent labs and imaging results. Recent Labs 06/07/22 0544 WBC 7.22 HB 11.1* HCT 34.3* PLT 213 MCV 92.0 Recent Labs 06/07/22 0545 NA 136 K 4.1 CHLOR 107* CO2 21* BUN 12 CREAT 0.57* GLUC 105* ANION 8* CA 8.4* TPROT 6.0* ALB 3.2* TBILI 0.2 ALKPHOS 72 AST 18 ALT 14 No results for input(s): CK, CKMB, TROPT in the last 168 hours. IMAGING ERCP Impression: 1. Previous biliary sphincterotomy appeared open but drainage was slow/poor>>stented. 2. Previous cholecystectomy. 3. biopsy of the major papilla performed>>>IgG 4 stain. Care made to avoid the pancreatic duct orifice. No attempt was made to instrument the pancreatic duct. Recommendation: 1. Await path results. 2. Update Dr Whlaey in 4 weeks with symptoms. If not improved at all will bring back for repeat EUS with possible panceatic biospy. If improves>>will repeat ERCP in months for stent removal and possibe extension sphincterotomy. CT Pancreas on 06/08/2022 Redemonstration of findings of chronic pancreatitis. Mild peripancreatic stranding. Correlate for superimposed acute pancreatitis in the appropriate clinical setting. No peripancreatic fluid collection. Cholecystectomy changes and bile duct stent are present. Nutmeg appearance of the liver which can be seen with hepatic venous congestion. 3 mm lingular nodule, not demonstrated previously. 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 From 5pm - 7am, please contact the Night Hospitalist on pager [phone] for patient issues. CC/HPI abdominal pain SUBJECTIVE Patient continues to have severe abdominal pain. She states she always gets IV Dilaudid in the hospital. Discussed that her lipase is normal. Discussed that she can now start taking clears and we will work to transition her back to her home pain regimen. Objective BP 113/68 Pulse 62 Temp (Src) 98.1 (Oral) Resp 18 Ht 5' 3 (1.60m) Wt 100 lb (45.4kg) SpO2 99% LMP 01/11/2019 BMI 17.72 kg/(m2). O2 Therapy: Room Air Physical Exam: Constitutional: alert and oriented HEENT: supple neck Cardiovascular: RRR, no murmur Respiratory: clear bilaterally Abdomen: +BS, diffuse abdominal tenderness to minimal palpation Musculoskeletal: ROM intact, no edema Neuro: grossly intact, moving all extremities Skin: no new lesions Lines, Drains, and Airways Line Duration Peripheral 06/06/22 0920 Short Left Antecubital 20 Gauge 1 day Reviewed lines, drains, AND airways. Need to be continued Medications: Reviewed Current Facility-Administered Medications Medication Dose Route Frequency ondansetron 4 mg tab(s) (ZOFRAN) 4 mg ORAL q 6 H PRN Or ondansetron (PF) 4 mg injection (ZOFRAN) 4 mg INTRAVENOUS q 6 H PRN prochlorperazine 10 mg injection (COMPAZINE) 10 mg INTRAVENOUS q 6 H PRN hydrALAZINE 5 mg injection (APRESOLINE) 5 mg INTRAVENOUS PRN acetaminophen 650 mg tab(s) (TYLENOL) 650 mg ORAL q 6 H PRN sucralfate 1 g tab(s) (CARAFATE) 1 g ORAL QID gabapentin 800 mg cap(s) (NEURONTIN) 800 mg ORAL TID pantoprazole DR 40 mg tab(s) (PROTONIX) 40 mg ORAL DAILY (6 AM) DULoxetine 60 mg cap(s) (CYMBALTA) 60 mg ORAL DAILY NaCl 0.9% iv flush bag 20 mL INTRAVENOUS PRN sodium chloride 0.9 % (flush) 3-5 mL (BD POSIFLUSH) 3-5 mL INTRAVENOUS q 12 H aluminum-magnesium hydroxide-simethicone 200-200-20 mg/5 mL 30 mL (MAALOX,MYLANTA,MAG-AL PLUS) 30 mL ORAL DAILY PRN dextrose 40 % 15 g 15 g ORAL PRN Or glucagon 1 mg injection 1 mg INTRAMUSCULAR PRN Or dextrose 10% iv bolus 12.5 g INTRAVENOUS PRN promethazine 25 mg tab(s) (PHENERGAN) 25 mg ORAL q 6 H PRN busPIRone 10 mg tab(s) (BUSPAR) 10 mg ORAL BID nicotine 14 mg/24 hr 1 Patch (NICODERM) 1 Patch TRANSDERMAL DAILY And nicotine -- REMOVE patch OTHER DAILY And nicotine - verify patch OTHER q 8 H insulin lispro (HumaLOG) 300 Units per 3mL vial for insulin pump (SELF ADMINISTERED) 300 Units SUBCUTANEOUS CONTINUOUS traZODone 100 mg tab(s) (DESYREL) 100 mg ORAL AT BEDTIME NaCl 0.9% iv infusion 100 mL/hr INTRAVENOUS CONTINUOUS HYDROmorphone 0.2 mg injection (DILAUDID) 0.2 mg INTRAVENOUS q 6 H PRN oxyCODONE IR 15 mg tab(s) (ROXICODONE) 15 mg ORAL q 4 H PRN Diagnostic tests reviewed: Most recent labs and imaging results. Recent Labs 06/07/22 0544 WBC 7.22 HB 11.1* HCT 34.3* PLT 213 MCV 92.0 Recent Labs 06/07/22 0545 NA 136 K 4.1 CHLOR 107* CO2 21* BUN 12 CREAT 0.57* GLUC 105* ANION 8* CA 8.4* TPROT 6.0* ALB 3.2* TBILI 0.2 ALKPHOS 72 AST 18 ALT 14 No results for input(s): CK, CKMB, TROPT in the last 168 hours. IMAGING ERCP Impression: 1. Previous biliary sphincterotomy appeared open but drainage was slow/poor>>stented. 2. Previous cholecystectomy. 3. biopsy of the major papilla performed>>>IgG 4 stain. Care made to avoid the pancreatic duct orifice. No attempt was made to instrument the pancreatic duct. Recommendation: 1. Await path results. 2. Update Dr Whaley in 4 weeks with symptoms. If not improved at all will bring back for repeat EUS with possible panceatic biospy. If improves>>will repeat ERCP in months for stent removal and possibe extension sphincterotomy. Assessment/Plan 36-year-old with history of autoimmune pancreatitis s/p cholecystectomy, ERCPs, EUS, now being considered for total pancreatectomy, type 1 diabetes (on an insulin pump), Crohn's disease on Humira, tobacco use disorder, chronic pain. She follows with Dr. Guillen and Dr. Juan as an outpatient. She underwent an ERCP with biopsy yesterday and was admitted for pain control postprocedure. Acute on chronic abdominal pain secondary to known autoimmune pancreatitis. Lipase normal. S/p ERCP with biopsy on 06/06/2022 - Clear liquid diet -Continue fluids for now -Patient's home regimen is oxycodone 15 mg, 4 pills a day. We will transition to this regimen and wean off IV Dilaudid. -Continue Cymbalta and gabapentin as adjuncts Type 1 diabetes: Continue insulin pump (more content not included)...[facility]09-22-2022 NoteHNO ID: [id number] Author: Albertina Matthews RN Service: Care Management Author Type: Registered Nurse Type: Care Mgt Initial Assessment Filed: 06/07/2022 10:01 AM Note Text: CARE MANAGEMENT: ASSESSMENT AND DISCHARGE PLAN SERVICE DATE: June 07, 2022 SERVICE TIME: 956 PRIMARY CARE PHYSICIAN: Nat Medina DO Primary Contact: Extended Emergency Contact Information Primary Emergency Contact: Mami Scott Address: [address] [place] [address] Mobile Relation: Significant other Secondary [facility] Mobile Relation: Mother ADMISSION STATUS: Observation Insurance Provider: BLUE CARD PPO OOS NEEDS PRIOR TO DISCHARGE Needs Prior to Discharge: To Be Determined POTENTIAL TRANSITION PLANS To Be Determined ADVANCE DIRECTIVES Current Advance Directive: None Classroom Coordinator Attempted to Assist with AD Completion: Yes Action: Education Provided;Patient Unwilling MS/BEHAVIOR Baseline Mental Status Prior to this Illness what was the patient's Baseline Mental Status?: Alert AND Oriented Prior to this illness, has anyone described the patient having any of the following behaviors?: Not Applicable Relationship of the informant to the patient:: Self FREEDOM OF CHOICE EXPLAINED: Bliss of Choice Given: No Reason Not Given: No placements necessary Are you interested in bedside delivery of your medications? No ASSESSMENT AND PLAN: Assessment completed with: This CM spoke with patient via telephone. Prior Level of Function: Independent prior to admission. Has patient been to SNF in last 90 days? If yes, where and how many days? No Durable Medical Equipment: Patient has a chronic insulin pump, self manages. Active Services in Community/Home: NA PCP visit within the last 12 months: yes, PCP Nat Medina. Living Situation: Patient lives home with s/o Mami. Support System/Next of Kin: s/o Mami, mother Kat Able to Afford Food and Medications: yes Anticipated Discharge Plan: No skilled needs anticipated at time of discharge. Patient is admitted with pain/nausea after ERCP. Patient requiring IV pain medication, NPO. Patient is independent prior to admission, lives home with s/o Mami. Of note, patient with chronic insulin pump, self manages. CM to continue to follow. SIGNATURE: Albertina Matthews RN PATIENT NAME: Julieth Spencer DATE: June 07, 2022 TIME: 9:57 AM CONTACT #: [phone] NoteHNO ID: [id number] Author: Vicky Nielsen APRN.ADULT SCHOOL COUNSELOR Service: Nursing Author Type: Nurse News Videotape Editor Type: Anesthesia Procedure Notes Filed: 06/06/2022 9:56 AM Note Text: ANESTHESIOLOGY PROCEDURE NOTE Airway General Information Procedure Start Time/Medication Administration: 06/06/2022 9:46 AM Patient location during procedure: OR Timeout Performed Pre-procedure: timeout performed Consent Obtained: Yes Patient identity confirmed: arm band, care water team leader and patient Staffing Anesthesiologist: Yolie Bailey MD ADULT SCHOOL COUNSELOR: Vicky Nielsen APRN.ADULT SCHOOL COUNSELOR Performed by: ADULT SCHOOL COUNSELOR Indications and Patient Condition Indications for airway management: anesthesia Preoxygenated: yes anesthesia circuit Patient position: sniffing Method: sleep Difficult Mask: No Final Airway Details Final airway type: endotracheal airway Final Endotracheal Airway: ETT Cuffed: yes Successful intubation technique: direct laryngoscopy Endotracheal tube insertion site: oral Blade: Cesario Blade size: #3 ETT size (mm): 7.0 Measured from: lips Measurement (cm): 22 Placement verified by: capnometry Cormack-Lehane Classification: grade I - full view of glottis Number of attempts at approach: 1 Airway not difficult SIGNATURE: Vicky Nielsen APRN.ADULT SCHOOL COUNSELOR PATIENT NAME: Julieth Spencer DATE: June 06, 2022 TIME: 9:56 AM CSN: [id number] Miscellaneous Notes* Telephone Encounter - Juhi Chacon [facility] - 05/14/2022 2:34 PM EDT Patient is scheduled for 06/[address] Whaley at . Patient would like to be added to our cancellation list. [facility] * Telephone Encounter - Juhi [facility] - 05/14/2022 10:43 AM EDT Images from the original note were not included. MD Sagar Cuello MD; [place] Procedure Pool Eus-linear scope, possible biopsy, ercp stent placement--next avail [facility] Instructions* Patient Instructions* Allison Mederos - 05/10/2022 12:[address] Whaley will look through your records and determine the next steps. Most likely we will arrange for endoscopic ultrasound to evaluate your pancreas and possible biopsy and ERCP with stenting of the bile duct as we discussed. 2. Continue to refrain from all alcohol intake and tobacco intake in any form as chronic pancreatitis is a risk factor for pancreatic cancer especially with consumption of these items. documented in this encounter[facility]-2022 History of Present illness Narrative* Vicky Whaley MD - 05/10/2022 11:37 AM EDT ASSESSMENT/PLAN Reviewed with patient and Dr. Guillen. I will certainly type II autoimmune pancreatitis is associated with inflammatory bowel disease, before embarking on a total pancreatectomy reasonable to exhaust other options. As requested, will arrange for endoscopic ultrasound with targeted biopsy as well as ERCP with evaluation of the bile ducts with potential stenting especially if a sphincterotomy has not been performed. Patient indicates she had post ERCP pancreatitis at her previous ERCP and she understands that this may occur again. All questions answered. Continue pain management as per her current pain management team and [facility] as well as management of her Crohn's with Humira. She indicates she is currently transitioning to [facility] only and will she continue to see a nurse practitioner for this. CHIEF COMPLAINT: Julieth Spencer, 36 year old female, presents in the office today CC: Patient presents with: discuss schg EUS, dilated duct . HPI: 36-year-old female who was seen at the [facility] for management of acute on chronic pancreatitis thought to be due to autoimmune pancreatitis type 2. Interventions includes cholecystectomy, ERCPs, EUS, and eventual analgesia medical management only as a bridge to total pancreatectomy. She saw Dr. Guillen for second opinion. HIDA scan performed did not show delayed emptying via the biliary tree suggestive of sphincter of Oddi dysfunction. Dr. Guillen requesting endoscopic ultrasound evaluation and biopsy of the pancreas to definitively rule in or rule out autoimmune pancreatitis as well as stenting of the bile duct if a sphincterotomy had not been performed. She reports for the past 3 to 4 months being in pain at all times requiring narcotics for management. She also has a history of Crohn's disease and is on Humira as well as diabetes treated with insulin by pump. Grandfather had pancreatic cancer. Admits to vaping nicotine but not having any alcohol since 2019. Previous to that had social alcohol and at times heavy only during college. 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 She takes Creon 36 with meals 1to 2 capsules nightly Creon 12 with snacks. She did receive a course of corticosteroids for a flareof pancreatitis at 1 point during her course but these were weaned off. She has been on and off steroids for her Crohn's over many years. Currently off steroids. Past Medical History: No past medical history on file. Crohn's and acute on chronic pancreatitis. Diabetes Surgical History: No past surgical history on file. Cholecystectomy Family History: FAMILY HISTORY Problem Relation Age of Onset Colon Polyps No Family History Colon Cancer No Family History Social History: Social History Tobacco Use Smoking status: Former Smokeless tobacco: Never Vaping Use Vaping Use: Former Substance Use Topics Alcohol use: Yes Current Medications: Current Outpatient Medications Medication Sig Dispense Refill adalimumab (HUMIRA) 40 mg/0.8 mL injection Inject 0.8 mL subcutaneously every 2 weeks. 2 Each 2 ztnbzw-jttppaeh-rzdfmld (CREON) 36,000-114,000- 180,000 unit delayed release capsule Take 1 capsuleby mouth three times daily before meals. cyanocobalamin, vitamin B-12, 3,000 mcg cap Take 1 capsule by mouth once every month. cholecalciferol (VITAMIN D3) 1,000 unit tab tablet Take 1,000 Units by mouth once daily. doxycycline monohydrate (MONODOX) 100 mg capsule Take 1 capsule by mouth q 12 HR. DULoxetine (CYMBALTA) 60 mg capsule Take 60 mg by mouth once daily. gabapentin (NEURONTIN) 800 mg tablet Take 800 mg by mouth three times daily. BAQSIMI 3 mg/actuation nasal spray Use 1 [place] in the nose as needed. insulin glargine (LANTUS SOLOSTAR, BASAGLAR KWIKPEN) 100 unit/mL (3 mL) Inject 20 Units subcutaneously q 24 HR. oxyCODONE IR (ROXICODONE) 5 mg immediate release tablet Take 5 mg by mouth as needed. pantoprazole DR (PROTONIX) 40 mg tablet Take 40 mg by mouth once daily. sucralfate (CARAFATE) 1 gram tablet Take 1 g by mouth four times daily. acetaminophen (TYLENOL) 325 mg tablet Take 2 tablets by mouth every 6 hours as needed (Temp greaterthan 38.5C). 90 tablet 3 promethazine (PHENERGAN) 25 mg tablet Take 25 mg by mouth every 6 hours as needed. (Patient not taking: Reported on 04/02/2022 ) 0 hyoscyamine SR (LEVBID) 0.375 mg 12 hr tablet Take 1 tablet by mouth q 12 HR. (Patient not taking: Reported on 01/27/2019 ) 200 tablet 5 No current facility-administered medications for this visit. Allergies: ALLERGIES Allergen Reactions Bactrim [Sulfametho* Rash Morphine Other: See Comments Visual hallucinations Review of Systems: Gastrointestinal: Negative for-none. Positive for-nausea, heartburn, red blood in stool, abdominal pain, constipation, diarrhea, loss of appetite, early satiety (feeling full fast), and bloating. Constitutional: Negative for-none. Positive for-recent weight lose and fatigue. HEENT: Negative for-none. Positive for-none. Cardiovascular: Negative for-none. Positive for-abnormal heart rhythm and palpitations. Respiratory: Negative for-none. Positive for-none. Genitourinary: Negative for-none. Positive for-frequent urination. Neurological: Negative for-none. Positive for-headaches. Dermatology: Negative for-none. Positive for-RASH. Musculoskeletal: Negative for-none. Positive for-joint pain and arthritis. Psychiatric: Negative for-none. Positive for-depression and anxiety. Where do you currently reside? Independently Are you taking any blood thinners? No PHYSICAL EXAMINATION: BP 118/77 Pulse 90 Ht 160 cm (5' 3 ) Wt 47.6 kg (105 lb) LMP 01/13/2019 BMI 18.60 kg/m noacute distress. Anicteric sclerae. Lungs are clear sounds are regular S1-S2 abdomen soft no currenttenderness she is alert and oriented x3. Attending Note: I have confirmed and edited as necessary, the PFSH and ROS obtained by others. Signature: Vicky Whaley MD Date: 05/10/2022 Time: 11:44 AM documented in this encounterOhio [facility]08-24-2022 Miscellaneous Notes* Telephone Encounter - Imelda Harper MA - 05/09/2022 10:16 AM EDT Does patient have any of the following symptoms: Fever, cough, difficulty breathing, loss of taste,loss of smell, diarrhea, or muscle pain? no Are you actively being tested for COVID-19? no Have you tested positive for COVID-19 (within the last 28 days)? no Do you have a household member that has COVID-19? no Instructed to bring own mask. Advised temperature will be taken upon arrival to appointment and no visitors, unless assistance is needed. Verified arrival time of 11:00 appt 11:30 Understands to call prior to appointment if symptoms arise overnight. Instructed to call with any questions and verbalizes understanding. Imelda Harper MA documented in this encounterOhio [facility]08-23-2022 Evaluation note* Encounter Date Diagnosis Assessment Notes Treatment Notes Treatment Clinical Notes Apr, Insulin long-term use (ICD-10 - Z79.4) Apr, Type 1 diabetes mellitus (ICD-10 - E10.9) About diabetes type 1 material was published 1. Controlled, a Type 1 diabetes with A1c of 6% 2. Blood glucose levels according to pump/cgm download 04/24/22-05/07/22: Avg sensor glucose 128. >180-13%, 70-180-82%, <70-5%. Reviewed download with pt, pt no longer taking steroid and her pump settings were on steroid setting, changed setting to profile 1 and turned off steroid setting- reviewed with pt if steroid restarted to turn on steroid setting. Also recommend she notify dexcom of dexcom sensor adhesive not sticking to skin for replacement sensors. Pt verbalizes understanding. 3. Patient is alert, oriented and receptive to making changes or counseling Notes: Seen for an assessment of current glucose pattern, changes in treatment plan, counseling and coordination of care related to diabetes, risks, and benefits of treatment, medications, side effects. Given handouts to reinforce concepts reviewed during counseling, see scanned notes. TOPICS REVIEWED: 1. Time was spent reviewing: a. Basic concepts of diabetes, progressive beta cell , concepts of basal/bolus/correc tive insulin requirements. Basal: The goal is fasting blood glucose of 90-130mg. If fasting blood glucose starts to run under 100mg 3x's/ week, decrease dose by 10%. Bolus: The goal is to hold the blood glucose level steady meal to meal. If pt. is going to have increased physical activity after a meal, decrease the schedule meal dose prior to the activity by 30-50%. If pt. skips a meal do not take this dose. Correction: The goal is to correct an elevated glucose back into the 100-150mg range b. Nutrition: Concepts of healthy diet reviewed, encouraged to decrease saturated fat in diet and increase non-starchy vegetables and fruits in diet. BMI: Pt. needs to select one small change to decrease caloric intake or increase physical activity to help decrease weight. c. Correct treatment of hypoglycemia, carry a glucose source at all times on your person, in vehicles, and at bedside. Can use glucose tablets/4, four ounces of pop or juice equal to 15 G of carbohydrate. Blood glucose should be 100 mg/dl or higher when driving. d. ADA glucose goals for age and medical complexity reviewed e. Patient questions addressed 2. Activity/exercise: Encouraged to start any form of physical activity. Start low level and increase slowly to a minimal goal of 150 minutes/week. Limit activity to what is allowed by other issues such as cardiac, pulmonary or orthopedic restrictions. 3. Standards of care: Reminded to have an annual dilated eye exam, A1C every 3 months, urine testing for microalbumin once/year, check feet daily and report any cuts or sores that do not appear to be healing. 4. Meter: Plan to check blood glucose: Please check blood glucose levels 4 times/day. Back to back meals reveal effectiveness of bolus dosing.5. [facility]. Contact office if any issues or concerns with patterns of hypoglycemia, hyperglycemia, or diabetes medication issues. 6. Prescriptions: Reports has back up insulin if pump fails. Apr, Dietary counseling and surveillance (ICD-10 - Z71.3) Maintaining a healthful weight material was published see above Apr, Insulin pump titration (ICD-10 - Z46.81) Diabetes and exercise material was published, Low blood glucose and diabetes material was published Tandem control iq with dexcom g6 Profile 1- turned setting on today Basal MN 0.33, 4am 0.31, 8am 0.4, 12 pm 0.42, 4p/8p 0.33 units/hr. (TBI 8.5 units/day) ICR MN 1:30 ISF MN 1:85 Target 110 active insulin time 5 hours Prednisone 40mg setting- turned off today dada MN 0.33, 4am 0.31, 8am 0.5, 12 pm 0.5, 4p/8p 0.33 units/hr. (TBI 9 units/day) ICR MN 1:30 ISF MN 1:85 Target 110 active insulin time 5 hours Apr, Hyperlipidemia (ICD-10 - E78.5) Managing your cholesterol material was published 05/07 ldl 76 at target [employer] Other 08-17-2022 Miscellaneous Notes* Telephone Encounter - Tio Mar RPh - 05/02/2022 5:27 PM EDT Requested Prescriptions Pending Prescriptions Disp Refills adalimumab (HUMIRA) 40 mg/0.8 mL injection 2 Each 2 Sig: Inject 0.8 mL subcutaneously every 2 weeks. My apologies- patient called back and states she would like Humira Rx sent to local [facility]. She states she has filled Humira there in the past. Thanks Please review and advise. Tio Mar RPh * Telephone Encounter - Tio Mar RP - 05/02/2022 4:59 PM EDT Requested Prescriptions Pending Prescriptions Disp Refills adalimumab (HUMIRA) 40 mg/0.8 mL injection 2 Each 2 Sig: Inject 0.8 mL subcutaneously every 2 weeks. Humira prior authorization has been approved; however, due to insurance restrictions Rx must be filled at [facility]. If refill request approved, [facility]. Thanks Please review and advise. Tio Mar RPh documented in this encounterOhio [facility]22 History of Present illness Narrative* Bell Asher (Intramural Director) - 05/01/2022 1:46 PM EDT [facility] prescription(s) for Humira from Dr. Stefanie Solorzano's office. Benefits investigation was conducted, indicating that a prior authorization is required. PA was initiated and pending review. Plan Name: [employer] Plan Agent/Blount: cmdavid Phone/Fax: [phone] / Case: Blount# [id number] Timeline: Marked urgent Bell Asher (Intramural Director) documented in this encounterOhio Valley Surgical Hospital08-16-2022 Miscellaneous Notes* Telephone Encounter - Allison Mederos - 05/01/2022 8:26 AM EDT Chat correspondence copied: Dr Guillen: This is the patient we talked about. I was hoping you could do an EUS to look for retained GB with stones, as well as look at her head of the pancreas with biopsy and body with biopsy at the area where her PD is dilated. She also needs a sphincterotomy and stent. If the pain/nausea resolves then I think her issue is her CBD. If the pain returns when the stent is removed I would drain her duct. Ifher pain is unchanged then maybe she needs a pancreatectomy to get relief. Thanks CTS Dr Whaley: Eileen>>> this is a complicated patient that Dr. Guillen asked me to review and arrange procedures for her. I will start the process of arranging these procedures but I would like to see her for an office visit. I am copying Stefanie who has seen her in the office as well. Can be in person or virtual == Called [phone]. Spoke with pt, informed of Dr Whaley's instruction for visit. Offered 05/10 or05/11, [facility]. Pt chose 05/10. Allison Mederos documented in this encounterOhio Valley Surgical Hospital08-15-2022 History of Present illness Narrative* Sagar Guillen MD - 04/30/2022 9:55 AM EDT HEPATOBILIARY SURGERY VIRTUAL VISIT FOLLOW UP I had a virtual visit with Ms. Spencer today for follow up of abd pain and possible chronic pancreatitis. UPDATED HISTORY: Julieth Spencer is a 36 year old female with possible chronic pancreatitis and pain. PHYSICAL FINDINGS OF NOTE: General - Normal, healthy, cooperative, in no acute distress Able to interact verbally by video conference Pulmonary - respiratory effort normal Abdominal - Not performed Motor - patient seen sitting with Normal appearing strength and coordination Data Reviewed: Tests & Documents Reviewed/ordered: Review of Imaging: HIDA Plan Abnormal HIDA suggest problems with duct emptying, which could be SOD dysfunction or fibrosis of the head of the pancreas. Also question of dilated distal PD. Suggest repeat EUS to evalute head of pancreas with biopsy, body of the pancreas where PD dilates with biopsy, sphincterotomy, CBD stent placement and evaluation for remnant GB with stones. Final surgical recommendations pending outcome of above. 20 minutes spent on the call documented in this encounterOhio Valley Surgical Hospital08-12-2022 Miscellaneous Notes* Telephone Encounter - Allison Heller Ma - 04/27/2022 10:40 AM EDT Signed authorization received and faxed to requesting records. Allison Heller Ma * Telephone Encounter - Mia Fragoso - 04/26/2022 2:40 PM EDT Called and spoke with Julieth - she said her faxed the form at 9:30 am 04/26/22 to the fax number noted on the form. Mia Fragoso * Telephone Encounter - Allison Heller Ma - 04/19/2022 1:38 PM EDT Unable to obtain any previous records from her pcp. Called and left message that I will need HIPAA release signed. Asked if she has a fax number that [facility] send it to her to expedite. Mailed request form to patient. Requested call back. Allison Heller Ma documented in this encounterOhio Valley Surgical Hospital07-25-2022 Miscellaneous Notes* Telephone Encounter - Mariam Silver RN - 04/09/2022 3:03 PM EDT Prior authorization approved for HIDA scan for tomorrow 04/10/2022 9am See also note in FYI Approval 04/09/2022 - 05/24/2022 Approval number- [id number] Mariam Silver RN * Telephone Encounter - Laurie Palak Pss - 04/09/2022 1:11 PM EDT HIDA scan on tomorrow's schedule has been denied by insurance. The notes say that insurance needs proof that it is needed due to US results or a peer to peer review can be scheduled to approve it fortomorrow. Please review. Laurie Cid Pss documented in this encounterOhio Valley Surgical Hospital06-23-2022 [id number] Pancreas Pre Op Evaluation with Contrast(Normal)[facility] Work Phone: [phone] [id number] Pancreas Pre Op Evaluation with Contrast(Normal)[facility] [address] Work Phone: 1(424) 704-328306-23-2022 [id number] Pancreas Pre Op Evaluation with Contrast(Normal)[facility] [address] Work Phone: 1([phone]) 227-475006-10-2022 Chief complaint Narrative - Reported* An interactive audio and video telecommunication system which permits real time communications between the patient (at the originating site) and provider (at the distant site) was utilized to providethis telehealth service. * Verbal consent was requested and obtained from JULIETH SPENCER on this date, 02/23/2022 04:30 PM , for a telehealth visit. * Follow up viist [facility] [address] Work Phone: 1([phone]) 326-361505-17-2022 Evaluation note* Encounter Date Diagnosis Assessment Notes Treatment Notes Treatment Clinical Notes January, Type 1 diabetes mellitus with hyperglycemia (ICD-10 - E10.65) Julieth came in today for evaluation of her pump report after starting Steroids for pancreatitis. She has only used the pump/CGM for 40 hours in the last 2 weeks. Julieth stated that she was having trouble getting supplies for her pump and CGM. I informed her that she must be seen every 3 months for insurance approval of pump supplies and CGM supplies. I cannot make any changes based on this information. We discussed why she hasn't been using the pump. She stated that she thought the pump didn't work without the CGM. We discussed that the pump will run according to the settings program. She should use the pump even if her CGM is not working. She needs to test her BG ACHS and PRN and make sure to enter her BG into the pump for boluses. She needs to count her carbs and enter them as well. She understands. NO settings changes were made at this time, (see settings below). 30 minutes was spent counseling the patient by Haily Marks RN. Reviewed pump/cgm download 01/16/22-01/29/22: Avg glucose 134. >250-12%, 70-180-88%, <70-0%. 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 Advised patient to continue previous treatment plan recommendations. Will send in rx of Capmist and Flonase to use as directed. Encouraged supportive care as directed, push fluids and rest, Tylenol and/or Motrin as directed for discomfort/fever, warm moist compress over sinuses several times a day, cool mist humidification, nasal saline spray as directed. Symptoms should improve in the next 3 days, if symptoms persist follow up with PCP. Immediate eval for warning s/sx as discussed. Patient verbalizes understanding and is agreeable to treatment plan Dec, Other Additional time spent conducting pre-visit phone call, screening for symptoms, instructions on social distancing, application and removal of PPE, and cleaning of examination room, equipment and supplies was preformed. Patient education given for testing methodology and results. Patient care instructions given in writting by [facility] document [employer] Other 03-28-2022 Evaluation note* Encounter Date Diagnosis Assessment Notes Treatment Notes Treatment Clinical Notes Nov, Insulin long-term use (ICD-10 - Z79.4) Nov, Type 1 diabetes mellitus (ICD-10 - E10.9) About diabetes type 1 material was published 1. Controlled, a Type 1 diabetes with A1c of 5.8% 2. Blood glucose levels according to pump/cgm download 11/27/21-12/10/21: Avg sensor glucose 127. >180-12%, 70-180-87%, <70-1%. Reviewed download with pt, pump was off November 27 through December 03, 2021. Noted several autocorrections. Will modify basal/icr settings. Recommend she enter carbs into pump. Reviewed with pt how to turn on exercise feature, she return demonstrated. Reviewed with pt importance of keeping cgm/insulin pump on. If pump off will need basal insulin (long acting) to prevent her from going into dka. She does have back up insulin reviewed at this time would recommend 4 units basal insulin, must wait 24 hours after last dose before restarting insulin pump. She verbalizes understanding. 3. Patient is alert, oriented and receptive to making changes or counseling Notes: Seen for an assessment of current glucose pattern, changes in treatment plan, counseling and coordination of care related to diabetes, risks, and benefits of treatment, medications, side effects. Given handouts to reinforce concepts reviewed during counseling, see scanned notes. TOPICS REVIEWED: 1. Time was spent reviewing: a. Basic concepts of diabetes, progressive beta cell , concepts of basal/bolus/correc tive insulin requirements. Basal: The goal is fasting blood glucose of 90-130mg. If fasting blood glucose starts to run under 100mg 3x's/ week, decrease dose by 10%. Bolus: The goal is to hold the blood glucose level steady meal to meal. If pt. is going to have increased physical activity after a meal, decrease the schedule meal dose prior to the activity by 30-50%. If pt. skips a meal do not take this dose. Correction: The goal is to correct an elevated glucose back into the 100-150mg range b. Nutrition: Concepts of healthy diet reviewed, encouraged to decrease saturated fat in diet and increase non-starchy vegetables and fruits in diet. BMI: Pt. needs to select one small change to decrease caloric intake or increase physical activity to help decrease weight. c. Correct treatment of hypoglycemia, carry a glucose source at all times on your person, in vehicles, and at bedside. Can use glucose tablets/4, four ounces of pop or juice equal to 15 G of carbohydrate. Blood glucose should be 100 mg/dl or higher when driving. d. ADA glucose goals for age and medical complexity reviewed e. Patient questions addressed 2. Activity/exercise: Encouraged to start any form of physical activity. Start low level and increase slowly to a minimal goal of 150 minutes/week. Limit activity to what is allowed by other issues such as cardiac, pulmonary or orthopedic restrictions. 3. Standards of care: Reminded to have an annual dilated eye exam, A1C every 3 months, urine testing for microalbumin once/year, check feet daily and report any cuts or sores that do not appear to be healing. 4. Meter: Plan to check blood glucose: Please check blood glucose levels 4 times/day. Back to back meals reveal effectiveness of bolus dosing.5. [facility]. Contact office if any issues or concerns with patterns of hypoglycemia, hyperglycemia, or diabetes medication issues. 6. Prescriptions: One touch glucometer/baqsimi and lispro sent to [facility]. Nov, Dietary counseling and surveillance (ICD-10 - Z71.3) Maintaining a healthful weight material was published see above Nov, Insulin pump titration (ICD-10 - Z46.81) Diabetes and exercise material was published, Low blood glucose and diabetes material was published Tandem control iq with dexcom g6 Basal MN 0.4 changed to MN 0.33, 4am 0.31, 8am 0.4, 12 pm 0.42, 4p/8p 0.33 units/hr. ICR MN 1:20 changed to 1:30 ISF MN 1:85 Target 110 active insulin time 5 hours Nov, Hyperlipidemia (ICD-10 - E78.5) Managing your cholesterol material was published [employer] Other 11-24-2020 History general Narrative - Reported* Type Description Date Medical History Anxiety Medical History Crohns Medical History type I diabetes Medical History Autoimmune Pancreatitis Medical History Nausea (resolved 08/09/2020) Medical History Impetigo, unspecified (resolved 08/17/2021) Surgical History Try[place] Tooth Extraction Surgical History colonoscopy Surgical History EGD Surgical History gallbladder 07/2018 Surgical History stent in pancreas Surgical History Stent removed from pancreas 2019 Surgical History Stent placed in pancreas 10/2021 Surgical History Left CTR 08/2022 Surgical History Right CTR 10/17/22 Hospitalization History Crohns 2009 Hospitalization History Pancreatitis 2 [employer] Other 11-24-2020 History general Narrative - Reported* Type Description Date Medical History Anxiety Medical History Crohns Medical History type I diabetes Medical History Autoimmune Pancreatitis Medical History Nausea (resolved 08/09/2020) Medical History Impetigo, unspecified (resolved 08/17/2021) Medical History Pancreatitis Surgical History Try[place] Tooth Extraction Surgical History colonoscopy Surgical History EGD Surgical History gallbladder 07/2018 Surgical History stent in pancreas Surgical History Stent removed from pancreas 2019 Surgical History Stent placed in pancreas 10/2021 Surgical History Left CTR 08/2022 Surgical History Right CTR 10/17/22 Hospitalization History Crohns 2009 Hospitalization History Pancreatitis 2 Hospital[place] [facility] [place] [employer] [facility] Other chief complaint Narrative - Reported* An interactive audio and video telecommunication system which permits real time communications between the patient (at the originating site) and provider (at the distant site) was utilized to providethis telehealth service. * Virtual follow up appt [facility] [address] Work Phone: chief complaint Narrative - Reported* An interactive audio and video telecommunication system which permits real time communications between the patient (at the originating site) and provider (at the distant site) was utilized to providethis telehealth service. * Virtual follow up appt [facility] [address] Work Phone: chief complaint Narrative - Reported* An interactive audio and video telecommunication system which permits real time communications between the patient (at the originating site) and provider (at the distant site) was utilized to providethis telehealth service. * [facility] [address] Work Phone: chief complaint Narrative - Reported* An interactive audio and video telecommunication system which permits real time communications between the patient (at the originating site) and provider (at the distant site) was utilized to providethis telehealth service. * Patient has a follow-up for palliative care today. [facility] [address] Work Phone: chief complaint Narrative - Reported* An interactive audio and video telecommunication system which permits real time communications between the patient (at the originating site) and provider (at the distant site) was utilized to providethis telehealth service. * Patient has a follow-up for palliative care today. [facility] [address] Work Phone: chief complaint Narrative - Reported* An interactive audio and video telecommunication system which permits real time communications between the patient (at the originating site) and provider (at the distant site) was utilized to providethis telehealth service. * Palliative care follow up for chronic pancreatitis pain management [facility] [address] Work Phone: chief complaint Narrative - Reported* An interactive audio and video telecommunication system which permits real time communications between the patient (at the originating site) and provider (at the distant site) was utilized to providethis telehealth service. * It's a check-up on how I am doing with the new medications he started, Hydromorphone and the Oxycodone. [facility] [address] Work Phone: Evaluation note* Psychological: Appropriate mood and behaviorExtremities: normal extremities, no cyanosis edema, contusions or wounds, no clubbingGastrointestinal: Nondistended, soft, tenderness to RUQ and mid epigastric area, no rebound tenderness or guarding, no masses palpable, no organomegaly, hypoactive BS, nobruitsCardiovascular: Regular, rate and rhythm, no murmurs, normal S 1and S 2Respiratory/Thorax: Patent airways, CTAB, normal breath sounds with good chest expansion, thorax symmetricEyes: EOMI, clear scleraSkin: Warm and dry, no lesions, no rashesConstitutional: Well developed, awake/alert/oriented x3, no distress but uncomfortable, alert and cooperative [facility]* Psychological: Appropriate mood and behaviorExtremities: normal extremities, no cyanosis edema, contusions or wounds, no clubbingGastrointestinal: Nondistended, soft, non-tender to light palpation, no guarding, no masses palpable, no organomegaly, +BS, no bruitsCardiovascular: Regular, rate and rhythm, no murmurs, 2+ equal pulses of the extremities, normal S 1and S 2Respiratory/Thorax: Patent airways, CTAB, normal breath sounds with good chest expansion, thorax symmetricEyes: EOMI, clear scleraSkin: Warm and dry, no lesions, no rashesConstitutional: Well developed, awake/alert/oriented x3, nodistress, alert and cooperative [facility] noteNo InformationN[employer] Other Evaluation note* Diagnosis Chronic pancreatitis, unspecified pancreatitis type (HCC) [K86.1 (ICD-10-CM)]- Primary documented in this encounter [facility] note* Diagnosis Crohn's disease with complication, unspecified gastrointestinal tract location (HCC)- Primary documented in this encounter [facility] note* Diagnosis Other chronic pancreatitis (HCC)- Primary documented in this encounter [facility] note* Diagnosis Blood in mouth of unknown source- Primary Other and unspecified diseases of the oral soft tissues documented in this encounter [facility] noteNo assessment information availableMercy Health Ctr Work Phone: Evaluation note* Diagnosis Palliative care by specialist- Primary Chronic calcific pancreatitis (HCC) Chronic pancreatitis Malnutrition of moderate degree (HCC) Malnutrition of moderate degree Chronic abdominal pain Abdominal pain, unspecified site Nausea Nausea alone documented in this encounter [facility] note* Diagnosis Palliative care by specialist Chronic calcific pancreatitis (HCC) Chronic pancreatitis Chronic abdominal pain Abdominal pain, unspecified site Nausea Nausea alone documented in this encounter [facility] note* Diagnosis Onset Date Resolution Status Abdominal pain acute Acute on chronic pancreatitis acute Nausea & vomiting acute Type 1 diabetes mellitus acu te UTI (urinary tract infection) acute Crohns disease [facility] Work Phone: Evaluation note* Diagnosis Onset Date Resolution Status Abdominal pain acute Acute on chronic pancreatitis acute Acute pancreatitis acute Chronic pancreatitis acute Common bile duct dilatation acute Elevated LFTs acute Nausea & vomiting acute Type 1 diabetes mellitus acu te UTI (urinary tract infection) acute Crohns disease [facility] Work Phone: Evaluation note* Diagnosis Chronic abdominal pain Abdominal pain, unspecified site Alcohol-induced acute pancreatitis, unspecified complication status documented in this encounter [facility] Work Phone: Evaluation note* Diagnosis Palliative care by specialist Chronic calcific pancreatitis (HCC) Chronic pancreatitis Chronic abdominal pain Abdominal pain, unspecified site [facility]* Diagnosis Alcohol-induced chronic pancreatitis (CMS/HCC)- Primary Chronic pancreatitis 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) documented in this encounter [facility] Work Phone: Evaluation note* Diagnosis Palliative care by specialist Chronic calcific pancreatitis (HCC) Chronic pancreatitis Chronic abdominal pain Abdominal pain, unspecified site documented in this encounter [facility] note* Diagnosis 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)- Primary Chronic pancreatitis (CMS/HCC) Chronic pancreatitis Alcohol-induced chronic pancreatitis (CMS/HCC) Chronic pancreatitis Alcohol-induced chronic pancreatitis (CMS/HCC) Chronic pancreatitis 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) documented in this encounter [facility] Work Phone: Evaluation note* Diagnosis 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)- Primary Chronic pancreatitis (CMS/HCC) Chronic pancreatitis Alcohol-induced chronic pancreatitis (CMS/HCC) Chronic pancreatitis Alcohol-induced chronic pancreatitis (CMS/HCC) Chronic pancreatitis 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) documented in this encounter [facility] Work Phone: Evaluation note* Diagnosis 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)- Primary Chronic pancreatitis (CMS/HCC) Chronic pancreatitis Alcohol-induced chronic pancreatitis (CMS/HCC) Chronic pancreatitis Alcohol-induced chronic pancreatitis (CMS/HCC) Chronic pancreatitis 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) documented in this encounter [facility] Work Phone: Evaluation note* Diagnosis Palliative care by specialist Chronic calcific pancreatitis (HCC) Chronic pancreatitis Chronic abdominal pain Abdominal pain, unspecified site documented in this encounter [facility] note* Diagnosis DKA (diabetic ketoacidosis) ([facility])- Primary Type II or unspecified type diabetes mellitus with ketoacidosis, not stated as uncontrolled Dehydration Acute pancreatitis, unspecified complication status, unspecified pancreatitis type Pancreatic insufficiency Other specified disease of pancreas Type 1 diabetes mellitus without complication ([facility]) Type I (juvenile type) diabetes mellitus without mention of complication, not stated as uncontrolled Nausea Nausea alone Diabetic ketoacidosis without coma associated with type 1 diabetes mellitus ([facility]) Dehydration History of pancreatectomy Pancreatic insufficiency Other specified disease of pancreas Chronic abdominal pain Abdominal pain, unspecified site Chronic pancreatitis due to acute alcohol intoxication ([facility]) DM type 1 (diabetes mellitus, type 1) ([facility]) Type I (juvenile type) diabetes mellitus without mention of complication, not stated as uncontrolled H/O chronic pancreatitis documented in this encounter [facility] Work Phone: Evaluation note* Diagnosis Palliative care by specialist- Primary Chronic calcific pancreatitis (HCC) Chronic pancreatitis History of pancreatectomy Chronic abdominal pain Abdominal pain, unspecified site Nausea Nausea alone [facility] Diagnosis History of pancreatectomy- Primary Chronic abdominal pain Abdominal pain, unspecified site Palliative care by specialist documented in this encounter [facility] note* Diagnosis Type 1 diabetes mellitus without complication ([facility]) Type I (juvenile type) diabetes mellitus without mention of complication, not stated as uncontrolled documented in this encounter [facility] Work Phone: Evaluation note* Diagnosis Palliative care by specialist Chronic calcific pancreatitis (HCC) Chronic pancreatitis Chronic abdominal pain Abdominal pain, unspecified site documented in this encounter [facility] note* Diagnosis Onset Date Resolution Status Autoimmune pancreatitis acut e Crohn's disease acute GERD (gastroesophageal reflux disease) acute HTN (hypertension) acute Hyperlipidemia acute Type 1 diabetes mellitus with hyperglycemia acute [facility] Work Phone: Evaluation note* Diagnosis Palliative care by specialist- Primary History of pancreatectomy Chronic calcific pancreatitis (HCC) Chronic pancreatitis Chronic abdominal pain Abdominal pain, unspecified site Nausea Nausea alone documented in this encounter [facility] note* Diagnosis Palliative care by specialist- Primary Chronic abdominal pain Abdominal pain, unspecified site [facility] Type Description Date Medical History Anxiety Medical History Crohns Medical History type I diabetes Medical History Pancreatitis Surgical History [place] Tooth Extraction Surgical History colonoscopy Surgical History EGD Surgical History gallbladder 07/2018 Surgical History stent in pancreas Surgical History Stent removed from pancreas 2019 Surgical History Stent placed in pancreas 10/2021 Hospitalization History Crohns 2009 Hospitalization History Pancreatitis 2 [employer] Experience Other Hiszlcz general Narrative - Reported* Type Description Date Medical History Anxiety Medical History Crohns Medical History type I diabetes Medical History Autoimmune Pancreatitis Surgical History [place] Tooth Extraction Surgical History colonoscopy Surgical History EGD Surgical History gallbladder 07/2018 Surgical History stent in pancreas Surgical History Stent removed from pancreas 2019 Surgical History Stent placed in pancreas 10/2021 Hospitalization History [facility]hns 2009 Hospitalization History Pancreatitis 2 [employer] Experience Other Hissgkm general Narrative - Reported* Type Description Date Medical History Anxiety Medical History Crohns Medical History type I diabetes Medical History Autoimmune Pancreatitis Surgical History [place] Tooth Extraction Surgical History colonoscopy Surgical History EGD Surgical History gallbladder 07/2018 Surgical History stent in pancreas Surgical History Stent removed from pancreas 2019 Surgical History Stent placed in pancreas 10/2021 Surgical History Left CTR 08/2022 Surgical History Right CTR 10/17/22 Hospitalization History Crohns 2009 Hospitalization History Pancreatitis 2 [employer] Experience Other History of Present illness Narrative* ID: Ms. Spencer is a 33-year-old female with a history of DMT1 (with low C-peptide levels), CD (on Humira in; follows up with her primary GI physician, Dr. Samy Longo at [facility]) and cholecystectomy (with long cystic duct remnant) who presents to for follow-up. * HPI: * She apparently has a history of recurrent pancreatitis with pseudocyst (diagnosed late 2018 soon after cholecystectomy performed for biliary colic). Of note, she has a positive FHx of pancreatic cancer in her grandfather, who was diagnosed at age 64. IgG4 levels checked at [facility] were wnl per HIE record review. No recent history of alcohol abuse, hypercalcemia or hypertriglyceridemia. Previous EUS+FNA of the pancreas by Dr. Yonathan Rosas at [facility] in 2019 was negative. * She was admitted to [facility] in Oct 2019 as a transfer from [facility] for abdominal pain. CT abd/pelv revealed acute pancreatitis, PD dilation and interval enlargement of a pseudocyst in the tail of thepancreas (5 x 4 x 3 cm). MRI/MRCP with secretin (11/06/19) was showed pancreas divisum and chronic pancreatitis with multiple strictures of the main dorsal PD with a dominant stricture in the genu resulting in upstream PD dilation. Mild IH/EH dilatation without choledocholithiasis was appreciated. ERCP was performed, showing stricture of PD. Plastic stent was placed, which was later removed. A biliary sphincterotomy was performed. * Along with pancreas divisum, additional possible etiologies of pancreatitis include idiopathic, autoimmune, CFTR-related or hereditary pancreatitis. LUIS was found to be (+) with a titer of 1:80, but KARL panel did not reveal any specific titer elevations. Serum IgG4 was normal. Ambry hereditary pancr eatitis genetic panel was sent out. * She presents today with 2 weeks of abdominal pain radiating to her back that feels like prior episode of pancreatitis. She has been unable to tolerate much PO nutrition due to pain, and has vomited occasionally. Denies blood in her vomit. In addition, she reports 4-7 light-colored BMs per day with scant blood for the last few days. Denies melena. She does have intermittent hematochezia every few months, for which she takes short course prednisone. She has not had alcohol in 2 years. * She additionally denies syncope/loss of consciousness, chest pain, dyspnea, cough,dysphagia, constipation, melena, dysuria, hematuria, lower extremity swelling, rash, fevers, chills, sick contacts, weight loss. 12 point ROS is otherwise negative. * O note, she also says that she was diagnosed with Crohn's in 2008 and was on treatment for a year; treated by Dr. Longo at [facility] She says that she then was in remission until late 2019, when she started to experience diarrhea. Per her recollection, she also had a colonoscopy with biopsies in 2013 which was apparently normal. She takes Humira [id number] x 2 years. * Pertinent Procedures: * ERCP 2019 * Impression: - The major papilla was unremarkable. - Despite efforts, the minor papilla was not found. - The bile duct was inadvertently cannulated. Cholangiogram was unremarkable. Biliary sphincterotomy was performed as noted above. - No pre-cut pancreatic sphincterotomy was made as the location ofthe pancreatic orifice could not be verified and no stent was placed as neither the dorsal or ventral pancreatic duct could be cannulated. * ERCP Nov 11 2019 * Impression: - Moderate dilatation of the pancreatic duct in the body and tail of the pancreas with narrowing in the head - One plastic stent was placed into the ventral pancreatic duct. * ERCP January 2020 * Impression: - Gastritis with punctate hemorrhage. - An irregularity was found in the main pancreatic duct, no focal stricture. - One stent was removed from the pancreatic duct- not replaced. 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 Spencer is a 33-year-old female with a history of DMT1 (with low C-peptide levels), CD (on Humira in; follows up with her primary GI physician, Dr. Samy Longo at [facility]) and cholecystectomy (with long cystic duct remnant) who presents to for follow-up. * HPI: * She apparently has a history of recurrent pancreatitis with pseudocyst (diagnosed late 2018 soon after cholecystectomy performed for biliary colic). Of note, she has a positive FHx of pancreatic cancer in her grandfather, who was diagnosed at age 64. IgG4 levels checked at [facility] were wnl per [facility] record review. No recent history of alcohol abuse, hypercalcemia or hypertriglyceridemia. Previous EUS+FNA of the pancreas by Dr. Yonathan Rosas at [facility] in 2019 was negative. * She was admitted to [facility] in Oct 2019 as a transfer from [place] for abdominal pain. CT abd/pelv revealed acute pancreatitis, PD dilation and interval enlargement of a pseudocyst in the tail of thepancreas (5 x 4 x 3 cm). MRI/MRCP with secretin (11/06/19) was showed pancreas divisum and chronic pancreatitis with multiple strictures of the main dorsal PD with a dominant stricture in the genu resulting in upstream PD dilation. Mild IH/EH dilatation without choledocholithiasis was appreciated. ERCP was performed, showing stricture of PD. Plastic stent was placed, which was later removed. A biliary sphincterotomy was performed. * Along with pancreas divisum, additional possible etiologies of pancreatitis include idiopathic, autoimmune, CFTR-related or hereditary pancreatitis. LUIS was found to be (+) with a titer of 1:80, but KARL panel did not reveal any specific titer elevations. Serum IgG4 was normal. Ambry hereditary pancr eatitis genetic panel was sent out. * She presents today with 2 weeks of abdominal pain radiating to her back that feels like prior episode of pancreatitis. She has been unable to tolerate much PO nutrition due to pain, and has vomited occasionally. Denies blood in her vomit. In addition, she reports 4-7 light-colored BMs per day with scant blood for the last few days. Denies melena. She does have intermittent hematochezia every few months, for which she takes short course prednisone. She has not had alcohol in 2 years. * She additionally denies syncope/loss of consciousness, chest pain, dyspnea, cough,dysphagia, constipation, melena, dysuria, hematuria, lower extremity swelling, rash, fevers, chills, sick contacts, weight loss. 12 point ROS is otherwise negative. * O note, she also says that she was diagnosed with Crohn's in 2008 and was on treatment for a year; treated by Dr. Longo at [facility] She says that she then was in remission until late 2019, when she started to experience diarrhea. Per her recollection, she also had a colonoscopy with biopsies in 2013 which was apparently normal. She takes Humira [id number] x 2 years. * Pertinent Procedures: * ERCP 2019 * Impression: - The major papilla was unremarkable. - Despite efforts, the minor papilla was not found. - The bile duct was inadvertently cannulated. Cholangiogram was unremarkable. Biliary sphincterotomy was performed as noted above. - No pre-cut pancreatic sphincterotomy was made as the location ofthe pancreatic orifice could not be verified and no stent was placed as neither the dorsal or ventral pancreatic duct could be cannulated. * ERCP Nov 11 2019 * Impression: - Moderate dilatation of the pancreatic duct in the body and tail of the pancreas with narrowing in the head - One plastic stent was placed into the ventral pancreatic duct. * ERCP January 2020 * Impression: - Gastritis with punctate hemorrhage. - An irregularity was found in the main pancreatic duct, no focal stricture. - One stent was removed from the pancreatic duct- not replaced. 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 Spencer is a 33-year-old female with a history of DMT1 (with low C-peptide levels), CD (on Humira in; follows up with her primary GI physician, Dr. Samy Longo at [facility]) and cholecystectomy (with long cystic duct remnant) who presents to for follow-up. * HPI: * She apparently has a history of recurrent pancreatitis with pseudocyst (diagnosed late 2018 soon after cholecystectomy performed for biliary colic). Of note, she has a positive FHx of pancreatic cancer in her grandfather, who was diagnosed at age 64. IgG4 levels checked at [facility] were wnl per SDE record review. No recent history of alcohol abuse, hypercalcemia or hypertriglyceridemia. Previous EUS+FNA of the pancreas by Dr. Yonathan Rosas at [facility] in 2018 was negative. * She was admitted to [facility] in Oct 2019 as a transfer from [facility] for abdominal pain. CT abd/pelv revealed acute pancreatitis, PD dilation and interval enlargement of a pseudocyst in the tail of thepancreas (5 x 4 x 3 cm). MRI/MRCP with secretin (11/06/19) was showed pancreas divisum and chronic pancreatitis with multiple strictures of the main dorsal PD with a dominant stricture in the genu resulting in upstream PD dilation. Mild IH/EH dilatation without choledocholithiasis was appreciated. ERCP was performed, showing stricture of PD. Plastic stent was placed, which was later removed. A biliary sphincterotomy was performed. * Along with pancreas divisum, additional possible etiologies of pancreatitis include idiopathic, autoimmune, CFTR-related or hereditary pancreatitis. LUIS was found to be (+) with a titer of 1:80, but KARL panel did not reveal any specific titer elevations. Serum IgG4 was normal. Ambry hereditary pancr eatitis genetic panel was sent out. * She presents today with 2 weeks of abdominal pain radiating to her back that feels like prior episode of pancreatitis. She has been unable to tolerate much PO nutrition due to pain, and has vomited occasionally. Denies blood in her vomit. In addition, she reports 4-7 light-colored BMs per day with scant blood for the last few days. Denies melena. She does have intermittent hematochezia every few months, for which she takes short course prednisone. She has not had alcohol in 2 years. * She additionally denies syncope/loss of consciousness, chest pain, dyspnea, cough,dysphagia, constipation, melena, dysuria, hematuria, lower extremity swelling, rash, fevers, chills, sick contacts, weight loss. 12 point ROS is otherwise negative. * O note, she also says that she was diagnosed with Crohn's in 2008 and was on treatment for a year; treated by Dr. Longo at [facility] She says that she then was in remission until late 2019, when she started to experience diarrhea. Per her recollection, she also had a colonoscopy with biopsies in 2013 which was apparently normal. She takes Humira [id number] x 2 years. * Pertinent Procedures: * ERCP 2019 * Impression: - The major papilla was unremarkable. - Despite efforts, the minor papilla was not found. - The bile duct was inadvertently cannulated. Cholangiogram was unremarkable. Biliary sphincterotomy was performed as noted above. - No pre-cut pancreatic sphincterotomy was made as the location ofthe pancreatic orifice could not be verified and no stent was placed as neither the dorsal or ventral pancreatic duct could be cannulated. * ERCP Nov 11 2019 * Impression: - Moderate dilatation of the pancreatic duct in the body and tail of the pancreas with narrowing in the head - One plastic stent was placed into the ventral pancreatic duct. * ERCP January 2020 * Impression: - Gastritis with punctate hemorrhage. - An irregularity was found in the main pancreatic duct, no focal stricture. - One stent was removed from the pancreatic duct- not replaced. 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 Pain medicine was consulted inpatient and recommended [employer] and the painsignificantly improved and then switched to oral oxycodone 10mg and tolerate that with improved pain and follow up with pain * management for evaluation for celiac plexus block. Patient states that since her discharge, she is still pending to see pain management and she was down titrated to Oxycodone 5mg q4hr. She also takesgabapentin and duloxetine. She notes that pain on a constant basis is a 5/10. The pain is epigastric in nature radiating to the back. She notes that when she takes an oxycodone 5mg one hour later thepain is reduced to a 1/10. 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 * CT A/P with acute on chronic pancreatitis and concern about ascending cholangitis although * clinically patient does not have signs and symptoms of cholangitis with no * fever, leukocytosis into rectum worsening LFTs. * Full ten point ROS obtained with no difference than above [facility] [address] Work Phone: History of Present illness Narrative* Patient seen for exam following chronic pain related to chronic pancreatitis. She continues to use oxycodone once or twice a day, notes no side effects or problems with this medication. She states that she recently had an injection with pain management, and is not yet sure how well it will work, she is hopeful. * I have personally reviewed the OARRS report for JULIETH SPENCER. I have considered the risks of abuse, dependence, addiction and diversion. [facility] [address] Work Phone: History of Present illness Narrative* Patient seen for exam following chronic pain related to chronic pancreatitis. She feels the pain has worsened somewhat since last visit. She had a few days of success from celiac plexus block, but does not feel it was as helpful as she would like. Since our last visit, she has consulted with an a surgeon who is recommending a pancreatectomy. She is seriously considering going through with it. * I have personally reviewed the OARRS report for JULIETH SPENCER. I have considered the risks of abuse, dependence, addiction and diversion. [facility] [address] Work Phone: History of Present illness Narrative* Patient seen for exam following chronic pain related to chronic pancreatitis. She feels the pain has worsened somewhat since last visit, especially after a stay at [facility] during which time they replaced the stent in her common bile duct. She shared that she was absolutely appalled at the treatment she received at the Clinic, and was distressed at their unwillingness to coordinate care with her outpatient providers in another system (including myself). She plans to keep all of her carein our system in the future. She continues to contemplate surgical removal of her pancreas, and shehopes that such a procedure, should it ever come to pass, would decrease or eliminate her pain in the long run, and hopefully allow her to discontinue pain medications in the future. She shared that she is concerned whether oxycodone works well for her. She shared that she used to get relief from use of low amounts of Vicodin or Percocet. We discussed the ways in which pain can evolve over time. I also asked if she still takes acetaminophen, which she tends to alternate with doses of ibuprofen.We discussed some of the other modalities that she uses, including massage, which do help somewhat.We discussed that individuals can have varying responses to pain medications, and we discussed thatthe addition of a long-acting medication might also give her more consistent relief. * I have personally reviewed the OARRS report for JULIETH SPENCER. I have considered the risks of abuse, dependence, addiction and diversion. * Last urine drug screening date/ordered today: Ordered Today * Date of the last Controlled Substance Agreement: Sent Today [facility] [address] Work Phone: History of Present illness Narrative* Patient seen for exam following chronic pain related to chronic pancreatitis. Patient has reflectedon our discussion last time and is interested in a trial of a combination of long-acting and short-acting opiate therapy. She is still considering the partial pancreatectomy option. * I have personally reviewed the OARRS report for JULIETH SPENCER. I have considered the risks of abuse, dependence, addiction and diversion. [facility] [address] Work Phone: History of Present illness Narrative* The patient is a 36-year-old whose had a 4-year history of severe chronic pancreatitis. She is had numerous ERCP and stent placements. She now has debilitating pain daily. Her pain level is 6 out of 10 and escalates to 9 or 10 out of 10 every single night or every other night. She is losing a lot of weight, and is lost 50 pounds over the past 2 or 3 years. She really is eager to have a definitive therapy such as resection in order to improve her symptoms if we think that we will help her. Her pancreatitis etiology was originally alcohol related. She does not drink anymore except sparingly andat very little amounts. She does take oxycodone 50 mg every 4 hours. She does not smoke but she does vape. * She no longer works. Most recently a bile duct stent was removed and she is not jaundiced. She alsosuffers from Crohn's disease and takes Humira. [facility] [address] Work Phone: History of Present illness NarrativeThe patient is known to me. She was referred for evaluation for total pancreatectomy. She has been having pain for 4 years at least related to her pancreas. She has a severely abnormal chronic pancreatitis gland as evidenced by endoscopic ultrasound, MRI and CT scan. She lives in chronic pain including the current week where her pain is 8 out of 10. She believes that her pain is stable and not getting any better. She has been eating a little bit better. Previously, last summer her albumin was over 3.5. It dipped to 2.5 and I told her it was important that she improve her nutrition prior to surgery. She has been drinking 4-5 Ensure shakes a day. She stopped vaping and smoking. She has not had any alcohol for over 2 years. Her weight has been slightly increased which is a good thing.[facility] [address] Work Phone: History of Present illness Narrative* Here today for exam following chronic pancreatitis and associated chronic pain. Julieth shared thatjd has been in a remarkably good place in recent weeks, with very low symptom burden, and has evenbeen gaining some weight due to a decrease in her nausea. She shared that she is considering postponing the pancreatectomy until symptoms worsen again. She is planning to discuss this with Dr. Burk. * Regarding her pain regimen, she is doing well on the current regimen. She notes no issues or side effects from the medications. They continue to allow her to function in her normal life, including allowing her to work. * I have personally reviewed the OARRS report for JULIETH SPENCER. I have considered the risks of abuse, dependence, addiction and diversion. [facility] [address] Work Phone: History of Present illness Narrative* Zoey is doing well today. Her mental health is doing significantly better since she started seeing a new psychiatrist and therapist. She still feels a little bit anxious and depressed however though. She was recently diagnosed with PTSD. She feels like that she has been learning a lot from her new therapist and psychiatrist. She thinks they have been very helpful and she feels much better. Sheis learning new coping skills which are also helping. She is going to the dentist today. She has gained 4 pounds in the last 2 weeks. She has a goal being 120 pounds prior to the surgery because she knows that she will lose a lot of weight and strength following the procedure. She wants to be in her best physical and mental health prior to the procedure. She does not know when she is getting the procedure done. She does not think she needs to get it done urgently now because her health has beenbetter. Her pain is relatively well controlled. She is prescribed hydromorphone extended release 8 mg twice a day and oxycodone immediate release 15 mg every 4 hours as needed for pain. She is using 4-5 oxycodones per day and 1-2 extended release hydromorphone per day. This is consistent with her last visit. She is sleeping better at night. Her nausea pills are working very well in controlling her nausea. Her bowel movements have had some blood in the and she is going to meet with her GI doctorabout this. * I have personally reviewed the OARRS report for JULIETH SPENCER. I have considered the risks of abuse, dependence, addiction and diversion. [facility] [address] Work Phone: Hospital Discharge instructions* Activity:activity as tolerated. May shower. May return to school/work Instructions:. Weight-bearing Instructions: weight-bearing as tolerated. * Additional Orders:Additional Instructions: Dear , You were admitted after you had you hadpersistent abdominal pain with nausea and vomiting following ERCP with stent in pancreatic duct. Westarted you on IV fluids and hav been controlling your pain with IV and oral pain medications as well as anti vomiting for which you slowly gotten better. We imaged your abdomen and pancrease which showed acute on chronic pancreatitis findings. We had DM team seen you here as you ran out of insulinpump supply and started you on subcutaneous insulin. You were alson seen by gordo caro and r ecommedned to place on patietn-controlled analegesics after which your pain gotten improved and then switched you back to oral medication and you tolerated. Things to follow:[ ] F/U with GI doctor ( appointment written in this chart) to remove the stent[ ] F/U with pain doctor to evaluate for celiac plexus block [ ] We held your Humira dose whilee your admitted with concern for infection, but nowyou resume taking it as scheduled and follow-up with date puller for Crohn's disease. * Call Provider If:Any new concerning symptoms. * Follow Up Appointment 1:Physician/Dept/Service: Pain: Dr Quinonesuled Date/Time: 29-Nov-2021 13:30Location: [address] [place], [place] [address]Efcon Number: [phone]: Please bring your insurance card, photo id, a list of medication in the original bottle, any co-pays you may have, and the discharge summary * Follow Up Appointment 2:Physician/Dept/Service: GI: Dr Caicheduled Date/Time: 30-Nov-2021 13:30Location: [address] [place], [place] [address]Spgwq Number: [phone]: Please bring your insurance card, photo id, a list of medication in the original bottle, any co-pays you may have, and the discharge summary * Follow Up Appointment 3:Physician/Dept/Service: Ramos Parekh MD, Hospice and Palliative MedicineScheduled Date/Time: 17-Nov-2021 14:30Location: [facility] [address] , [address] [address]Vrhem Number: [phone]: Please bring your insurance card, photo id, a list of medication in the original bottle, any co-pays you may have, and the discharge summary [facility]* Activity:activity as tolerated. May shower. May return to school/work Instructions: Return 01/31/22. * Additional Orders:Additional Instructions: Dear Julieth,You were admitted for acute pancreatitis and pain management after endoscopic retrograde cholangiopancreatography (ERCP). This was a procedure to exchange your pancreatic duct stent.Palliative care and Endocrinology were consulted for assistance with pain management and insulin management respectively. For the acute pancreatitis, you were treated with fluids and the pain was managed with a [employer] (patient-controlled analgesia- the button you pushed to dispense pain medication when you felt like you needed it). After a few days you were ableto tolerate a diet and we switched back to oral pain medications.While you were here, there were ongoing discussions between the surgery team and GI team to look into the reason for your recurrent pancreatitis. One of the potential reasons could be autoimmune pancreatitis. For this, we started you on Prednisone 40 mg daily with plans to continue for 1 month to see if this helps with your abdominal pain. Because prednisone can increase your blood sugar, Endocrinology set up a prednisone plan for your insulin pump. Because the Prednisone makes you anxious, we started you on Ativan 0.5 mg twice daily as needed for severe anxiety.New medications on discharge:- START Prednisone 40 mg daily forabout 1 month- the GI team will advise you on how to taper and stop this when you follow up with them- START vitamin D and calcium (for prevention of low bone mass) while on Prednisone. Can stop these when prednisone course is complete.- these prescriptions will be sent to your pharmacy.- START Ativan 0.5 mg twice daily as needed for anxiety for about 1 month- to be stopped or weaned off when prednisone course is complete- you will follow up with palliative care to wean off of this as stopping abruptly can cause withdrawal (seizures, etc.)- START Oxycodone 10 mg every 4 hours as needed for severe pain. I wrote a prescription for enough for 5 days and then you can transition back to your prior Oxycodone 5 mg every 6 hours as needed.Continue all other medications as you were taking them.To do on discharge:- Follow up with Dr. Parekh in palliative care in 1 month for further pain management and weaning off of Ativan- Follow up with Dr. Medina in primary care in 2 weeks for hospital follow up and coordination of care- Follow up with GI in about 1 month- to see if steroids made any difference in the abdominal pain- they are considering pancreatic duct stent removal and repeat MRI and CT of the Pancreas as well.- Follow up with chronic pain for your celiac plexus nerve block- Follow up with Eder Marks with endocrinology- he will call you to schedule a follow up appointment in 1-2 we me. If you develop any new or concerning symptoms, please feel free to come back to the emergency room and we would be happy to treat you.Take care,Dr. Cathy Donato & Zaire * Call Provider If:Breathing harder than normal or having retractions. Fever of 100.4 F (38 C) or higher. Drinking less than normal. Urinating less than normal, over 1 day. Acting very sleepy and difficult to awaken. Vomiting (throwing up) and not able to eat or drink for 12 hours. 3 or more loose, wa estelle bowel movements in 24 hours (diarrhea). Any new concerning symptoms. * Follow Up Appointment 1:Physician/Dept/Service: Primary Care- Dr. Conner to Schedule in: 2 weeksComments: Please call to schedule an appointment. * Follow Up Appointment 2:Physician/Dept/Service: Palliative care- Dr. Bernardcheduled Date/Time: 16-Feb-2022 11:30Location: [facility] [address] , [address] [address]Huwmz Number: [phone]: Please bring your insurance card, photo id, a list of medication in the original bottle, any co-pays you may have, and the discharge summary * Follow Up Appointment 3:Physician/Dept/Service: GI- for Prednisone taper and Pancreatic Duct stent removalComments: They will call to schedule this with you [facility] Additional Instructions Follow-up with Pain Management as previously scheduled.[facility] Work Phone: Reason for referral (narrative)* Outpatient Procedure (Routine) - Pending Review Specialty Diagnoses / Procedures Referred By Nano alfredo Referred To Contact [facility] Diagnoses Other chronic pancreatitis (HCC) Procedures ERCP ERCP BILIARY/PANC DUCT STENT EXCHANGE W/DIL&WIRE Vicky Whaley MD [address] [place] [address] [address] Referral ID Status Reason Start Date Expiration Date Visits Requested Visits Authorized [id number] Pending Review Auto-Generat ed Referral 05/13/2022 05/13/2023 1 1 * Outpatient Procedure (Routine) - Pending Review Specialty Diagnoses / Procedures Referred By Nano alfredo Referred To Contact [facility] Diagnoses Other chronic pancreatitis (HCC) Procedures EGD - THERAPEUTIC, EUS, OR TUBE INTERVENTIONS EGD INTRMURAL US NEEDLE ASPIRATE/BIOPSY ESOPHAGS Vicky Whaley MD [address] [place] [address] [facility] [address] [place] [address] Referral ID Status Reason Start Date Expiration Date Visits Requested Visits Authorized [id number] Pending Review Auto-Generat ed Referral 05/13/2022 05/13/2023 1 1 [facility] for referral (narrative)* Consultation (Routine) - Authorized Specialty Diagnoses / Procedures Referred By Contac t Referred To Contact Pharmacy Diagnoses Type 1 diabetes mellitus without complication (CMS/HCC) [place] [address] Department [place] [address] [facility] [address] [facility] [address] [place] [address] Referral ID Status Reason Start Date Expiration Date Visits Requested Visits Authorized [id number] Authorized Specialty Services Required 11/05/2023 11/04/2024 1 1 * Consultation (Routine) - Authorized Specialty Diagnoses / Procedures Referred By Contac t Referred To Contact Endocrinology Diagnoses Acute pancreatitis, unspecified complication status, unspecified pancreatitis type Pancreatic insufficiency Bárbara Redman, CARYN-MARGARET [address] Department [place] [address] Referral ID Status Reason Start Date Expiration Date Visits Requested Visits Authorized [id number] Authorized Specialty Services Required 11/05/2023 11/04/2024 1 1 [facility] Work Phone: Reason for referral (narrative)* Consultation (Routine) - Authorized Specialty Diagnoses / Procedures Referred By Contac t Referred To Contact Nutrition Diagnoses Type 1 diabetes mellitus without complication (CMS/HCC) Magi Ramesh PA-C [address] Department [place] [address] Referral ID Status Reason Start Date Expiration Date Visits Requested Visits Authorized [id number] Authorized Specialty Services Required 11/21/2023 11/20/2024 1 1 [facility] Work Phone: Reason for visit Narrative* Consultation (Routine) - Authorized Specialty Diagnoses / Procedures Referred By Contguevara t Referred To Contact Pharmacy Diagnoses Type 1 diabetes mellitus without complication (CMS/HCC) Procedures Follow Up In Clinical Pharmacy Magi Ramesh PA-C [address] Department [place] [address] [facility] [address] [place] [address] Referral ID Status Reason Start Date Expiration Date V isits Requested Visits Authorized [id number] Authorized 11/13/2023 11/12/2024 1 1 [facility] Work Phone: Chief Complaint LUQ pain, history of pancreatitisLUQ pain, history of pancreatitisLUQ pain, history of pancreatitis* A telephone visit (audio only) between the patient (at the originating site) and the provider (at the distant site) was utilized to provide this telehealth service. * Phone follow up visit * A telephone visit (audio only) between the patient (at the originating site) and the provider (at the distant site) was utilized to provide this telehealth service. * Phone follow up visit * A telephone visit (audio only) between the patient (at the originating site) and the provider (at the distant site) was utilized to provide this telehealth service. * Phone follow up visit * A telephone visit (audio only) between the patient (at the originating site) and the provider (at the distant site) was utilized to provide this telehealth service. * Follow up viist * A telephone visit (audio only) between the patient (at the originating site) and the provider (at the distant site) was utilized to provide this telehealth service. * Follow up viist follow up for palliative careChronic pancreatitis. 60 minute visit. Referred by by Ebony Lee.Follow up appt from surgery. This was a 35-minute visit. Palliative care follow up visit Family History Unknown Family Member Name Dates Details No pertinent family history: Mother, Father(V49.89, Z78.9) Status:Active Unknown Family Member Name Dates Details No pertinent family history: Mother, Father(V49.89, Z78.9) Status:Active Unknown Family Member Name Dates Details No pertinent family history: Mother, Father(V49.89, Z78.9) Status:Active Unknown Family Member Name Dates Details No pertinent family history: Mother, Father(V49.89, Z78.9) Status:Active Unknown Family Member Name Dates Details No pertinent family history: Mother, Father(V49.89, Z78.9) Status:Active Unknown Family Member Name Dates Details No pertinent family history: Mother, Father(V49.89, Z78.9) Status:Active Unknown Family Member Name Dates Details No pertinent family history: Mother, Father(V49.89, Z78.9) Status:Active Unknown Family Member Name Dates Details No pertinent family history: Mother, Father(V49.89, Z78.9) Status:Active Unknown Family Member Name Dates Details No pertinent family history: Mother, Father(V49.89, Z78.9) Status:Active Unknown Family Member Name Dates Details No pertinent family history: Mother, Father(V49.89, Z78.9) Status:Active Unknown Family Member Name Dates Details No pertinent family history: Mother, Father(V49.89, Z78.9) Status:Active Unknown Family Member Name Dates Details No pertinent family history: Mother, Father(V49.89, Z78.9) Status:Active Unknown Family Member Name Dates Details No pertinent family history: Mother, Father(V49.89, Z78.9) Status:Active Unknown Family Member Name Dates Details No pertinent family history: Mother, Father(V49.89, Z78.9) Status:Active Unknown Family Member Name Dates Details No pertinent family history: Mother, Father(V49.89, Z78.9) Status:Active Unknown Family Member Name Dates Details No pertinent family history: Mother, Father(V49.89, Z78.9) Status:Active Unknown Family Member Name Dates Details No pertinent family history: Mother, Father(V49.89, Z78.9) Status:Active Unknown Family Member Name Dates Details No pertinent family history: Mother, Father(V49.89, Z78.9) Status:Active Unknown Family Member Name Dates Details No pertinent family history: Mother, Father(V49.89, Z78.9) Status:Active Unknown Family Member Name Dates Details No pertinent family history: Mother, Father(V49.89, Z78.9) Status:Active Unknown Family Member Name Dates Details No pertinent family history: Mother, Father(V49.89, Z78.9) Status:Active Unknown Family Member Name Dates Details No pertinent family history: Mother, Father(V49.89, Z78.9) Status:Active Unknown Family Member Name Dates Details No pertinent family history: Mother, Father(V49.89, Z78.9) Status:Active Unknown Family Member Name Dates Details No pertinent family history: Mother, Father(V49.89, Z78.9) Status:Active Unknown Family Member Name Dates Details No pertinent family history: Mother, Father(V49.89, Z78.9) Status:Active Unknown Family Member Name Dates Details No pertinent family history: Mother, Father(V49.89, Z78.9) Status:Active Unknown Family Member Name Dates Details No pertinent family history: Mother, Father(V49.89, Z78.9) Status:Active Unknown Family Member Name Dates Details No pertinent family history: Mother, Father(V49.89, Z78.9) Status:Active Unknown Family Member Name Dates Details No pertinent family history: Mother, Father(V49.89, Z78.9) Status:Active Unknown Family Member Name Dates Details No pertinent family history: Mother, Father(V49.89, Z78.9) Status:Active Unknown Family Member Name Dates Details No pertinent family history: Mother, Father(V49.89, Z78.9) Status:Active Unknown Family Member Name Dates Details No pertinent family history: Mother, Father(V49.89, Z78.9) Status:Active Unknown Family Member Name Dates Details No pertinent family history: Mother, Father(V49.89, Z78.9) Status:Active Unknown Family Member Name Dates Details No pertinent family history: Mother, Father(V49.89, Z78.9) Status:Active Unknown Family Member Name Dates Details No pertinent family history: Mother, Father(V49.89, Z78.9) Status:Active Unknown Family Member Name Dates Details No pertinent family history: Mother, Father(V49.89, Z78.9) Status:Active Unknown Family Member Name Dates Details No pertinent family history: Mother, Father(V49.89, Z78.9) Status:Active Unknown Family Member Name Dates Details No pertinent family history: Mother, Father(V49.89, Z78.9) Status:Active Unknown Family Member Name Dates Details No pertinent family history: Mother, Father(V49.89, Z78.9) Status:Active Unknown Family Member Name Dates Details No pertinent family history: Mother, Father(V49.89, Z78.9) Status:Active Unknown Family Member Name Dates Details No pertinent family history: Mother, Father(V49.89, Z78.9) Status:Active Unknown Family Member Name Dates Details No pertinent family history: Mother, Father(V49.89, Z78.9) Status:Active Unknown Family Member Name Dates Details No pertinent family history: Mother, Father(V49.89, Z78.9) Status:Active Unknown Family Member Name Dates Details No pertinent family history: Mother, Father(V49.89, Z78.9) Status:Active Unknown Family Member Name Dates Details No pertinent family history: Mother, Father(V49.89, Z78.9) Status:Active Unknown Family Member Name Dates Details No pertinent family history: Mother, Father(V49.89, Z78.9) Status:Active Unknown Family Member Name Dates Details No pertinent family history: Mother, Father(V49.89, Z78.9) Status:Active Unknown Family Member Name Dates Details No pertinent family history: Mother, Father(V49.89, Z78.9) Status:Active Unknown Family Member Name Dates Details No pertinent family history: Mother, Father(V49.89, Z78.9) Status:Active Unknown Family Member Name Dates Details No pertinent family history: Mother, Father(V49.89, Z78.9) Status:Active Unknown Family Member Name Dates Details No pertinent family history: Mother, Father(V49.89, Z78.9) Status:Active Relationship Condition Age at Onset Recorded Date/T leora Not Specified Anxiety Unknown grandparent Malignant neoplasm of pancreas Unknown Unknown Family Member Name Dates Details No pertinent family history: Mother, Father(V49.89, Z78.9) Status:Active Unknown Family Member Name Dates Details No pertinent family history: Mother, Father(V49.89, Z78.9) Status:Active Relationship Condition Age at Onset Recorded Date/T leora Not Specified Anxiety Unknown grandparent Malignant neoplasm of pancreas Unknown brother Unknown Summary Purpose Advance Directives Documents on File Type Date Recorded Patient Client Executive Expl anation Advance Directive(s) 03/02/2019 1:21 PM Advance Directive Response Recorded Date/ Time Advance Directives No July 14, 2018 5:41pm Documents on File Type Date Recorded Patient Client Executive Expl anation Living Will 10/11/2023 Latest Code Status on File Code Status Date Activated Date Inactivated Comments Full Code 10/31/2023 8:04 PM Question Answer Comments Plan of Care: Code Status Discussion Completed Decision Maker: Patient Code Status History Code Status Date Activated Date Inactivated Comments Full Code 10/11/2023 6:27 AM 10/31/2023 8:04 PM Question Answer Comments Plan of Care: Code Status Discussion Completed Decision Maker: Patient Advance Directive Response Recorded Date/ Time Advance Directives No July 14, 2018 4:41pm Latest Code Status on File Code Status Date Activated Date Inactivated Comments Full Code 10/31/2023 8:04 PM Question Answer Comments Plan of Care: Code Status Discussion Completed Decision Maker: Patient Code Status History Code Status Date Activated Date Inactivated Comments Full Code 10/11/2023 6:27 AM 10/31/2023 8:04 PM Question Answer Comments Plan of Care: Code Status Discussion Completed Decision Maker: Patient Health Concerns Infection Onset Date Last Indicated Resolved Time COVID-19 Rule-Out 06/06/2022 06/06/2022 06/06/2022 5:04 PM EDT Reason for Referral Specialty Diagnoses / Procedures Referred By Nano alfredo Referred To Contact Diagnoses Palliative care by specialist Chronic abdominal pain Ramos Parekh MD [address] [place] [address] Referral ID Status Reason Start Date Expiration Date Visits Re quested Visits Authorized [id number] Closed 1 1 Specialty Diagnoses / Procedures Referred By Contac t Referred To Contact Diagnoses History of pancreatectomy Chronic abdominal pain Palliative care by specialist Ramos Parekh MD [address] [id number] Referral ID Status Reason Start Date Expiration Date Visits Re quested Visits Authorized [id number] Closed 1 1 Specialty Diagnoses / Procedures Referred By Contac t Referred To Contact Diagnoses Alcohol-induced chronic pancreatitis (CMS/HCC) Procedures EKG 12 [place] [address] Department of Surgery-[place] [address] Referral ID Status Reason Start Date Expiration Date V isits Requested Visits Authorized [id number] Pending Review 08/19/2023 08/18/2024 1 1 Specialty Diagnoses / Procedures Referred By Contac t Referred To Contact Radiology Diagnoses Alcohol-induced chronic pancreatitis (CMS/HCC) Procedures CT abdomen [place] [address] [address] Department of Surgery-[place] [address] Referral ID Status Reason Start Date Expiration Date Visits Requested Visits Authorized [id number] Pending Review Perform Procedure 08/19/2023 08/18/2024 1 1 Specialty Diagnoses / Procedures Referred By Contac t Referred To Contact Pain Management Diagnoses Chronic calcific pancreatitis (HCC) Chronic abdominal pain Procedures CONSULT TO PAIN MGT OFFICE/OUTPATIENT [facility] 60-74 MINUTES Ramos Parekh MD [address] [place] [address] Referral ID Status Reason Start Date Expiration Date Visits Requested Visits Authorized [id number] Authorized PCP Requested Referral 05/17/2023 05/16/2024 1 1 Chief Complaint and Reason for Visit Chief Complaint Upper abd pain into back,N/V Reason for Visit Abdominal pain Acute on chronic pancreatitis Nausea & vomiting Type 1 diabetes mellitus UTI (urinary tract infection) Crohns disease Chief Complaint Upper abd pain into back,N/V Reason for Visit Abdominal pain Acute on chronic pancreatitis Acute pancreatitis Chronic pancreatitis Common bile duct dilatation Elevated LFTs Nausea & vomiting Type 1 diabetes mellitus UTI (urinary tract infection) Crohns disease Chief Complaint Possible Covid-Sick [phone] Chief Complaint Possible Covid-Sick [phone] Amb Documentation follow up Reason for Visit Autoimmune pancreati tis Crohn's disease GERD (gastroesophageal reflux disease) HTN (hypertension) Hyperlipidemia Type 1 diabetes mellitus with hyperglycemia Additional Source Comments INFORMATION SOURCE (unrecogn ized section and content) DATE CREATED AUTHOR 07/28/2021 [facility] DATE CREATED AUTHOR AUTHOR'S ORGANIZ ATION 05/11/2022 [facility] DATE CREATED AUTHOR AUTHOR'S ORGANIZ ATION 06/17/2022 [facility] DATE CREATED AUTHOR AUTHOR'S ORGANIZ ATION 02/25/2023 [facility] DATE CREATED AUTHOR AUTHOR'S ORGANIZ ATION 03/02/2023 [facility] DATE CREATED AUTHOR AUTHOR'S ORGANIZ ATION 08/03/2023 [facility] EPIC DATE CREATED AUTHOR AUTHOR'S ORGANIZ ATION 10/13/2023 [facility] DATE CREATED AUTHOR AUTHOR'S ORGANIZ ATION 11/15/2023 [facility] DATE CREATED AUTHOR AUTHOR'S ORGANIZ ATION 11/15/2023 [facility] [place] DATE CREATED AUTHOR AUTHOR'S ORGANIZ ATION 11/25/2023 [facility] DATE CREATED AUTHOR AUTHOR'S ORGANIZ ATION 12/08/2023 [facility] <item><item><item> Privacy Markings (unrecogniz ed section and content) Section Author: Yesy Pace PROHIBITION ON REDISCLOSURE OF CONFIDENTIAL INFORMATION This notice accompanies a disclosure of information concerning a client made to you with the consent of such client. Section Author: Yesy Pace PROHIBITION ON REDISCLOSURE OF CONFIDENTIAL INFORMATION This notice accompanies a disclosure of information concerning a client made to you with the consent of such client. Section Author: Yesy Pace PROHIBITION ON REDISCLOSURE OF CONFIDENTIAL INFORMATION This notice accompanies a disclosure of information concerning a client made to you with the consent of such client. 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 - Other Reason Comments Request Outside Medical Records Reason Comments Abdominal Pain Reason Comments Appointment Schd visit Reason Onset Date Comments SPP Inflammatory Conditions - Treatment Referral 05/01/2022 [employer] Insurance Authorization 05/01/2022 [place] [facility] Reason Onset Date Comments Refill Request 05/02/2022 Reason Comments prescreen Reason Comments discuss schg EUS, dilated duct Reason Onset Date Comments Refill Request 06/11/2022 Reason Comments EUS ERCP Reason Comments ERCP 2 MONTHS Reason Comments Release Of Medical Records Reason Comments Establish Care Reason Comments Care Coordination Future Appointment Reason Onset Date Comments Refill Request 07/09/2023 Reason Comments New Patient Visit Reason Onset Date Comments Refill Request 08/01/2023 Reason Comments Follow-up Reason Comments Medication Problem Specialty Diagnoses / Procedures Referred By Contac t Referred To Contact Diagnoses Alcohol-induced chronic pancreatitis (CMS/HCC) Procedures EKG 12 [place] [address] [address] Department [place] [address] Referral ID Status Reason Start Date Expiration Date V isits Requested Visits Authorized [id number] Pending Review 08/19/2023 08/18/2024 1 1 Specialty Diagnoses / Procedures Referred By Contac t Referred To Contact Radiology Diagnoses Alcohol-induced chronic pancreatitis (CMS/HCC) Procedures CT pancreas pre OP evaluation w IV contrast CT abdomen [place] [address] [address] Department of Surgery-Surgical Oncology [place] [id number] Referral ID Status Reason Start Date Expiration Date Visits Requested Visits Authorized [id number] Pending Review Perform Procedure 08/19/2023 08/18/2024 1 1 Referral ID Status Reason Start Date Expiration Date Visits Requested Visits Authorized [id number] Authorized Perform Procedure 08/19/2023 08/18/2024 1 1 Reason Onset Date Comments Refill Request Refill Request 10/28/2023 Specialty Diagnoses / Procedures Referred By Nano t Referred To Contact Diagnoses Dehydration Dehydration Procedures [place] [address] [address] [facility] [place] [id number] [facility] [address] [place] [address] Referral ID Status Reason Start Date Expiration Date Visits Re quested Visits Authorized [id number] 1 1 Reason Comments Patient Question Reason Comments Insurance Authorization Reason Comments Follow Up Reason Comments Appointment Reason Comments Medication Question Reason Onset Date Comments Refill Request 11/29/2023 Reason Onset Date Comments Refill Request 12/09/2023 Source Comments (unrecognize d section and content) In the event this informatio n is protected by the Federal Confidentiality of Alcohol and Drug Abuse Patient Records regulations: The Federal rules restrict any use of the information to criminally investigate or prosecute any alcohol or drug abuse patient.[facility] the event this information is protected by the Federal Confidentiality of Alcohol and Drug Abuse Patient Records regulations: The Federal rules restrict any use of the information to criminally investigate or prosecute any alcohol or drug abuse patient.[facility] HospitalIn the event this information is protected by the Federal Confidentiality of Alcohol and Drug Abuse Patient Records regulations: The Federal rules restrict any use of the information to criminally investigate or prosecute any alcohol or drug abuse patient.[facility] HospitalIn the event this information is protected by the Federal Confidentiality of Alcohol and Drug Abuse Patient Records regulations: The Federal rules restrict any use of the information to criminally investigate or prosecute any alcohol or drug abuse patient.[facility] HospitalIn the event this information is protected by the Federal Confidentiality of Alcohol and Drug Abuse Patient Records regulations: The Federal rules restrict any use of the information to criminally investigate or prosecute any alcohol or drug abuse patient.[facility] HospitalIn the event this information is protected by the Federal Confidentiality of Alcohol and Drug Abuse Patient Records regulations: The Federal rules restrict any use of the information to criminally investigate or prosecute any alcohol or drug abuse patient.[facility] HospitalIn the event this information is protected by the Federal Confidentiality of Alcohol and Drug Abuse Patient Records regulations: The Federal rules restrict any use of the information to criminally investigate or prosecute any alcohol or drug abuse patient.[facility] HospitalIn the event this information is protected by the Federal Confidentiality of Alcohol and Drug Abuse Patient Records regulations: The Federal rules restrict any use of the information to criminally investigate or prosecute any alcohol or drug abuse patient.[facility] HospitalIn the event this information is protected by the Federal Confidentiality of Alcohol and Drug Abuse Patient Records regulations: The Federal rules restrict any use of the information to criminally investigate or prosecute any alcohol or drug abuse patient.[facility] HospitalIn the event this information is protected by the Federal Confidentiality of Alcohol and Drug Abuse Patient Records regulations: The Federal rules restrict any use of the information to criminally investigate or prosecute any alcohol or drug abuse patient.[facility] HospitalIn the event this information is protected by the Federal Confidentiality of Alcohol and Drug Abuse Patient Records regulations: The Federal rules restrict any use of the information to criminally investigate or prosecute any alcohol or drug abuse patient.[facility] HospitalIn the event this information is protected by the Federal Confidentiality of Alcohol and Drug Abuse Patient Records regulations: The Federal rules restrict any use of the information to criminally investigate or prosecute any alcohol or drug abuse patient.[facility] HospitalIn the event this information is protected by the Federal Confidentiality of Alcohol and Drug Abuse Patient Records regulations: The Federal rules restrict any use of the information to criminally investigate or prosecute any alcohol or drug abuse patient.[facility] HospitalIn the event this information is protected by the Federal Confidentiality of Alcohol and Drug Abuse Patient Records regulations: The Federal rules restrict any use of the information to criminally investigate or prosecute any alcohol or drug abuse patient.[facility] HospitalIn the event this information is protected by the Federal Confidentiality of Alcohol and Drug Abuse Patient Records regulations: The Federal rules restrict any use of the information to criminally investigate or prosecute any alcohol or drug abuse patient.[facility] HospitalIn the event this information is protected by the Federal Confidentiality of Alcohol and Drug Abuse Patient Records regulations: The Federal rules restrict any use of the information to criminally investigate or prosecute any alcohol or drug abuse patient.[facility] HospitalIn the event this information is protected by the Federal Confidentiality of Alcohol and Drug Abuse Patient Records regulations: The Federal rules restrict any use of the information to criminally investigate or prosecute any alcohol or drug abuse patient.[facility] HospitalIn the event this information is protected by the Federal Confidentiality of Alcohol and Drug Abuse Patient Records regulations: The Federal rules restrict any use of the information to criminally investigate or prosecute any alcohol or drug abuse patient.[facility] HospitalIn the event this information is protected by the Federal Confidentiality of Alcohol and Drug Abuse Patient Records regulations: The Federal rules restrict any use of the information to criminally investigate or prosecute any alcohol or drug abuse patient.[facility] HospitalIn the event this information is protected by the Federal Confidentiality of Alcohol and Drug Abuse Patient Records regulations: The Federal rules restrict any use of the information to criminally investigate or prosecute any alcohol or drug abuse patient.[facility] HospitalIn the event this information is protected by the Federal Confidentiality of Alcohol and Drug Abuse Patient Records regulations: The Federal rules restrict any use of the information to criminally investigate or prosecute any alcohol or drug abuse patient.[facility] HospitalIn the event this information is protected by the Federal Confidentiality of Alcohol and Drug Abuse Patient Records regulations: The Federal rules restrict any use of the information to criminally investigate or prosecute any alcohol or drug abuse patient.[facility] HospitalIn the event this information is protected by the Federal Confidentiality of Alcohol and Drug Abuse Patient Records regulations: The Federal rules restrict any use of the information to criminally investigate or prosecute any alcohol or drug abuse patient.[facility] HospitalIn the event this information is protected by the Federal Confidentiality of Alcohol and Drug Abuse Patient Records regulations: The Federal rules restrict any use of the information to criminally investigate or prosecute any alcohol or drug abuse patient.[facility] HospitalIn the event this information is protected by the Federal Confidentiality of Alcohol and Drug Abuse Patient Records regulations: The Federal rules restrict any use of the information to criminally investigate or prosecute any alcohol or drug abuse patient.[facility] HospitalIn the event this information is protected by the Federal Confidentiality of Alcohol and Drug Abuse Patient Records regulations: The Federal rules restrict any use of the information to criminally investigate or prosecute any alcohol or drug abuse patient.[facility] HospitalIn the event this information is protected by the Federal Confidentiality of Alcohol and Drug Abuse Patient Records regulations: The Federal rules restrict any use of the information to criminally investigate or prosecute any alcohol or drug abuse patient.[facility] HospitalIn the event this information is protected by the Federal Confidentiality of Alcohol and Drug Abuse Patient Records regulations: The Federal rules restrict any use of the information to criminally investigate or prosecute any alcohol or drug abuse patient.[facility] HospitalIn the event this information is protected by the Federal Confidentiality of Alcohol and Drug Abuse Patient Records regulations: The Federal rules restrict any use of the information to criminally investigate or prosecute any alcohol or drug abuse patient.[facility] HospitalIn the event this information is protected by the Federal Confidentiality of Alcohol and Drug Abuse Patient Records regulations: The Federal rules restrict any use of the information to criminally investigate or prosecute any alcohol or drug abuse patient.[facility] HospitalIn the event this information is protected by the Federal Confidentiality of Alcohol and Drug Abuse Patient Records regulations: The Federal rules restrict any use of the information to criminally investigate or prosecute any alcohol or drug abuse patient.[facility] HospitalIn the event this information is protected by the Federal Confidentiality of Alcohol and Drug Abuse Patient Records regulations: The Federal rules restrict any use of the information to criminally investigate or prosecute any alcohol or drug abuse patient.[facility] HospitalIn the event this information is protected by the Federal Confidentiality of Alcohol and Drug Abuse Patient Records regulations: The Federal rules restrict any use of the information to criminally investigate or prosecute any alcohol or drug abuse patient.[facility] HospitalIn the event this information is protected by the Federal Confidentiality of Alcohol and Drug Abuse Patient Records regulations: The Federal rules restrict any use of the information to criminally investigate or prosecute any alcohol or drug abuse patient.[facility] HospitalIn the event this information is protected by the Federal Confidentiality of Alcohol and Drug Abuse Patient Records regulations: The Federal rules restrict any use of the information to criminally investigate or prosecute any alcohol or drug abuse patient.[facility] HospitalIn the event this information is protected by the Federal Confidentiality of Alcohol and Drug Abuse Patient Records regulations: The Federal rules restrict any use of the information to criminally investigate or prosecute any alcohol or drug abuse patient.[facility] HospitalIn the event this information is protected by the Federal Confidentiality of Alcohol and Drug Abuse Patient Records regulations: The Federal rules restrict any use of the information to criminally investigate or prosecute any alcohol or drug abuse patient.[facility] HospitalIn the event this information is protected by the Federal Confidentiality of Alcohol and Drug Abuse Patient Records regulations: The Federal rules restrict any use of the information to criminally investigate or prosecute any alcohol or drug abuse patient.[facility] Care Teams (unrecognized sec tion and content) Team Status: Active Member Role Status Dates Nat Medina DO Primary Care Provider Active Team Status: Inactive Member Role Status Dates Nat Medina DO Primary Care Provider Active [place] Haile , DO Emergency Provider Active Karl Gant MD Admit Provider Active Allen Borges DO Attending Provider Active Ant Holloway MD Other Provider Active Estrella Gregorio NP Other Provider Active MEHDI Mallory Other Provider Active José Miguel Tobar MD Other Provider Active Yan Neves MD Other Provider Active Lead Python Developer Relationship Specialty Start Date End Date Nat Medina DO PCP - General 05/13/09 Harjit Mcdowell [address] [address] Referring Gastroenterology 12/22/18 Lead Python Developer Relationship Specialty Start Date End Date Ball, Nat E, DO PCP - General 05/13/09 Harjit Mcdowell [address] [place] [address] Referring Gastroenterology 12/22/18 Lead Python Developer Relationship Specialty Start Date End Date Nat Medina, DO PCP - General 05/13/09 Harjit Mcdowell [address] [place] [address] Referring Gastroenterology 12/22/18 Lead Python Developer Relationship Specialty Start Date End Date Nat Medina, DO PCP - General 05/13/09 Harjit Mcdowell [address] [place] [address] Referring Gastroenterology 12/22/18 Lead Python Developer Relationship Specialty Start Date End Date Nat Medina, DO PCP - General 05/13/09 Harjit Mcdowell [address] [place] [address] Referring Gastroenterology 12/22/18 Lead Python Developer Relationship Specialty Start Date End Date Nat Mdeina, DO PCP - General 05/13/09 Harjit Amaral R [address] [place] [address] Referring Gastroenterology 12/22/18 Lead Python Developer Relationship Specialty Start Date End Date Nat Medina, DO PCP - General 05/13/09 Harjit Mcdowell [address] [place] [address] Referring Gastroenterology 12/22/18 Lead Python Developer Relationship Specialty Start Date End Date Nat Medina, DO PCP - General 05/13/09 Harjit Amaral [address] [place] [address] Referring Gastroenterology 12/22/18 Lead Python Developer Relationship Specialty Start Date End Date Nat Medina, DO PCP - General 05/13/09 Harjit Amaral [address] [place] [address] [place] [address] Referring Gastroenterology 12/22/18 Lead Python Developer Relationship Specialty Start Date End Date Nat Medina, DO PCP - General 05/13/09 Harjit Amaral [address] [place] [address] [place] [address] Referring Gastroenterology 12/22/18 Lead Python Developer Relationship Specialty Start Date End Date Nat Medina DO PCP - General 05/13/09 Harjit Amaral [address] [place] [address] [place] [address] Referring Gastroenterology 12/22/18 Lead Python Developer Relationship Specialty Start Date End Date Nat Medina, DO PCP - General 05/13/09 Harjit Amaral [address] [facility] [address] [place] [address] Referring Gastroenterology 12/22/18 Lead Python Developer Relationship Specialty Start Date End Date Nat Medina DO PCP - General 05/13/09 Harjit Mcdowell [address] [place] [address] Referring Gastroenterology 12/22/18 Lead Python Developer Relationship Specialty Start Date End Date Nat Medina DO PCP - General 05/13/09 [facility]it Mcdowell [facility] [address] [place] [address] Referring Gastroenterology 12/22/18 Lead Python Developer Relationship Specialty Start Date End Date Nat Medina DO PCP - General 05/13/09 Harjit Mcdowell [address] [facility] [address] [place] [address] Referring Gastroenterology 12/22/18 Lead Python Developer Relationship Specialty Start Date End Date Nat Medina DO PCP - General 05/13/09 Harjit Mcdowell [address] [facility] [address] [place] [address] Referring Gastroenterology 12/22/18 Lead Python Developer Relationship Specialty Start Date End Date Nat Medina DO PCP - General 05/13/09 Harjit Mcdowell [address] [facility] [address] [place] [address] Referring Gastroenterology 12/22/18 Lead Python Developer Relationship Specialty Start Date End Date Nat Medina DO PCP - General 05/13/09 Harjit Mcdowell [address] [address] Referring Gastroenterology 12/22/18 Team Status: Active Member Role Status Dates Nat Medina , DO Primary Care Provider Active [place] Haile , DO Emergency Provider Active Karl Gant MD Admit Provider, Attending Provider Active Lead Python Developer Relationship Specialty Start Date End Date Nat Medina DO [address] [place] [address] PCP - General 08/14/22 [place] [address] [facility] Medicine-Geriatrics [place] [phone] PCP - [facility] Medicaid PCP 03/16/23 Inna Hernandez, manager life sciencesDie Technician 07/22/23 07/22/23 Lead Python Developer Relationship Specialty Start Date End Date Nat Medina DO PCP - General 05/13/09 Harjit Mcdowell [address] [address] Referring Gastroenterology 12/22/18 Lead Python Developer Relationship Specialty Start Date End Date Nat Mdeina DO PCP - General 08/14/22 [place] [address] [place] [address] PCP - [facility] Medicaid PCP 03/16/23 Lead Python Developer Relationship Specialty Start Date End Date Nat Medina DO PCP - General 05/13/09 Harjit Mcdowell [address] [place] [address] Referring Gastroenterology 12/22/18 Lead Python Developer Relationship Specialty Start Date End Date Nat Medina DO [address] [place] [address] PCP - General 08/14/22 [place] [address] [place] [phone] PCP - [facility] Medicaid PCP 03/16/23 Lead Python Developer Relationship Specialty Start Date End Date Nat Medina DO [address] [place] [address] PCP - General 08/14/22 Ramos Parekh MD [address] [place] [address] PCP - [facility] Medicaid PCP 03/16/23 Lead Python Developer Relationship Specialty Start Date End Date Nat Medina DO [address] [place] [address] PCP - General 08/14/22 [place] [address] [place] [address] PCP - MANUFACTURING TECHNOLOGIST Medicaid PCP 03/16/23 Lead Python Developer Relationship Specialty Start Date End Date Nat Medina DO PCP - General 05/13/09 Harjit Mcdowell [address] [place] [address] Referring Gastroenterology 12/22/18 Raffi Santiago, RN Specialty Product Safety Technical Assistant Hospice & Palliative Medicine 09/25/23 [place] [address] [place] [address] [facility] 09/25/23 Lead Python Developer Relationship Specialty Start Date End Date Nat Medina DO [address] [place] [address] PCP - General 08/14/22 [place] [address] [facility] Department [place] [address] PCP - [facility] Medicaid PCP 03/16/23 Vandana Ann Classroom CoordinatorDie Technician 10/30/23 11/04/23 Team Status: Inactive Member Role Status Dates Nat Medina DO Attending Provider Active Sta rt: October 02, 2023 End: October 02, 2023 Lead Python Developer Relationship Specialty Start Date End Date Nat Medina DO PCP - General 05/13/09 Harjit Mcdowell [address] [place] [address] Referring Gastroenterology 12/22/18 Raffi Santiago, RN Specialty Product Safety Technical Assistant H[facility] Palliative Medicine 09/25/23 Ramos Parekh MD [address] [place] [address] Hospice & Palliative Medicine 09/25/23 Lead Python Developer Relationship Specialty Start Date End Date Nat Medina DO PCP - General 05/13/09 Harjit Mcdowell [address] [place] [address] Referring Gastroenterology 12/22/18 Raffi Santiago RN Specialty Product Safety Technical Assistant H[facility]ice & Palliative Medicine 09/25/23 Ramos Parekh MD [address] [place] [address] Hospice & Palliative Medicine 09/25/23 Lead Python Developer Relationship Specialty Start Date End Date Nat Medina DO PCP - General 05/13/09 Harjit Mcdowell [address] [address] Referring Gastroenterology 12/22/18 Raffi Santiago, KISHA Specialty Product Safety Technical Assistant H[facility]ice & Palliative Medicine 09/25/23 Ramos Parekh MD [address] [place] [address] Hospice & Palliative Medicine 09/25/23 Lead Python Developer Relationship Specialty Start Date End Date Nat Medina DO PCP - General 05/13/09 Harjit Mcdowell [address] [address] Referring Gastroenterology 12/22/18 Raffi Santiago, RN Specialty Product Safety Technical Assistant Hospice & Palliative Medicine 09/25/23 Ramos Parekh MD [address] [place] [address] Hospice & Palliative Medicine 09/25/23 Lead Python Developer Relationship Specialty Start Date End Date Nat Medina DO PCP - General 05/13/09 Harjit Mcdowell [address] [place] [id number] Referring Gastroenterology 12/22/18 Raffi Santiago RN Specialty Product Safety Technical Assistant Hospice & Palliative Medicine 09/25/23 Ramos Parekh MD [address] [place] [address] Hospice & Palliative Medicine 09/25/23 Lead Python Developer Relationship Specialty Start Date End Date Nat Medina DO PCP - General 05/13/09 Harjit Mcdowell [address] [address] Referring Gastroenterology 12/22/18 Raffi Santiago RN Specialty Product Safety Technical Assistant Hospice & Palliative Medicine 09/25/23 Ramos Parekh MD [address] [place] [address] Hospice & Palliative Medicine 09/25/23 Lead Python Developer Relationship Specialty Start Date End Date Nat Medina DO PCP - General 05/13/09 Harjit Mcdowell [address] [address] Referring Gastroenterology 12/22/18 Raffi Santiago, RN Specialty Product Safety Technical Assistant Hospice & Palliative Medicine 09/25/23 Ramos Parekh MD [address] [place], [place] [id number] Hospice & Palliative Medicine 09/25/23 Lead Python Developer Relationship Specialty Start Date End Date Nat Medina DO [address] [place] [id number] PCP - General 08/14/22 [place] [address] [facility] [place] [address] PCP - [facility] Medicaid PCP 03/16/23 Lead Python Developer Relationship Specialty Start Date End Date Nat Medina DO PCP - General 05/13/09 Harjit Mcdowell [address] [address] Referring Gastroenterology 12/22/18 Raffi Santiago, KISHA Specialty Product Safety Technical Assistant Hospice & Palliative Medicine 09/25/23 Ramos Parekh MD [address] [place], [place] [id number] Hospice & Palliative Medicine 09/25/23 Team Status: Active Member Role Status Dates Nat Medina DO Primary Care Provider Active Start: November 27, 2023 KATHRYN Ramirez Attending Provider Active Start : November 27, 2023 Team Status: Inactive Member Role Status Dates Nat Medina DO Primary Care Provide r, Attending Provider Active Start: December 05, 2023 End: December 05, 2023 Lead Python Developer Relationship Specialty Start Date End Date Nat Medina DO PCP - General 05/13/09 Harjit Mcdowell [address] [address] Referring Gastroenterology 12/22/18 Raffi Santiago, KISHA Specialty Product Safety Technical Assistant Hospice & Palliative Medicine 09/25/23 Ramos Parekh MD [address] [place] [address] Hospice & Palliative Medicine 09/25/23 Goals (unrecognized section and content) Goals may be documented in a n alternate section Scheduled Active and Recently Administ ered Medications (unrecognized section and content) Medication Order 11/04/2023 11/05/2023 11/06/2023 citalopram (CeleXA) tablet 20 mg 20 mg, oral, Daily, First dose on 11/02/23 at 0600 0958 (Given - Provider: Samy Mireles RN) 0818 (Given - Provider: Imani Sarabia RN) 0842 (Given - Provider: Imani Sarabia RN) cloNIDine (Catapres) tablet 0.1 mg 0.1 mg, oral, Nightly, First dose (after last modification) on Liz 10/31/23 at 2100, Hold for systolic < 110 or HR >100 2099 (Not Given - Provider: Pablito Gonzalez RN - Reason: Patient/family refused) 2049 (Given - Provider: Pablito Gonzalez, KISHA) 2100 (Due) enoxaparin (Lovenox) syringe 40 mg 40 mg, subcutaneous, Every 24 hours, First dose on Sat11/01/23 at 0300, Indications: venous thrombosis 0300 (Not Given - Provider: Pablito Gonzalez RN - Reason: Patient/family refused) 0300 (Not Given - Provider: Pablito Gonzalez RN - Reason: Patient/family refused) 0300 (Not Given - Provider: Pablito Gonzalez RN - Reason: Patient/family refused) gabapentin (Neurontin) capsule 800 mg 800 mg, oral, 3 times daily, First dose (after last modification) on Sat11/02/23 at 1500, Capsules may be opened and sprinkled on food (eg, applesauce, orange juice, pudding). Capsules may be opened and sprinkled on food (eg, applesauce, orange juice, pudding 0958 (Given - Provider: Samy Mireles RN)1434 (Given - Provider: Samy Mireles RN)2005 (Given - Provider: Pablito Gonzalez RN) 0818 (Given - Provider: Imani Sarabia, KISHA)1444 (Given - Provider: Imani Sarabia, RN)2043 (Given - Provider: Pablito Gonzalez RN) 0842 (Given - Provider: Imani Sarabia RN)1500 (Due)2100 (Due) insulin degludec (Tresiba) injection 6 Units (CANCELED) 6 Units, subcutaneous, Daily, First dose (after last modification) on Sat11/03/23 at 0900 0958 (Given - Provider: Samy Mireles RN) 0822 (Given - Provider: Imani Sarabia, RN) insulin degludec (Tresiba) injection 6 Units 6 Units, subcutaneous, Daily, First dose (after last modification) on Sat11/06/23 at 0900 1154 (Given - Provider: Imani Sarabia RN) insulin lispro (HumaLOG) injection 0-5 Units (CANCELED) 0-5 Units, subcutaneous, Every 4 hours, First dose on Sat11/02/23 at 1900, Customized insulin sliding scale: Hypoglycemia protocol Call LIP unit(s) if Blood Glucose is between 0 - 70 mg/dL 0 unit(s) if Blood glucose is between 151-200 1 unit(s) if Blood glucose is between 201-250 2 unit(s) if Blood glucose is between 251-300 3 unit(s) if Blood glucose is between 301-350 4 unit(s) if Blood glucose is between 351-400 Notify provider unit(s) if Blood Glucose is greater than 400 mg/dL 0249 (Given - Provider: Pablito Gonzalez RN)0728 (Given - Provider: Lee Ann Larsen RN)1306 (Given - Provider: Samy Mireles RN - Comment: flexible meal times)1500 (Not Given - Provider: Samy Mireles RN - Reason: Order parameters not met - Comment: BG = 151)2005 (Given - Provider: Pablito Gonzalez RN) 0000 (Not Given - Provider: Pablito Gonzalez RN - Reason: Order parameters not met)0334 (Given - Provider: Pablito Gonzalez RN)0821 (Given - Provider: Imani Sarabia RN)1221 (Not Given - Provider: Imani Sarabia RN - Reason: Order parameters not met)1444 (Given - Provider: Imani Sarabia RN)1900 (Not Given - Provider: Imani Sarabia RN - Reason: Order parameters not met) 0007 (Given - Provider: Pablito Gonzalez RN)0400 (Not Given - Provider: Pablito Gonzalez RN - Reason: Order parameters not met)0700 (Not Given - Provider: Pablito Gonzalez RN - Reason: Order parameters not met) insulin lispro (HumaLOG) injection 0-5 Units 0-5 Units, subcutaneous, 3 times daily with meals, First dose (after last modification) on Sat11/06/23 at 1200, Customized insulin sliding scale: Hypoglycemia protocol Call LIP unit(s) if Blood Glucose is between 0 - 70 mg/dL 0 unit(s) if Blood glucose is between 151-200 1 unit(s) if Blood glucose is between 201-250 2 unit(s) if Blood glucose is between 251-300 3 unit(s) if Blood glucose is between 301-350 4 unit(s) if Blood glucose is between 351-400 Notify provider unit(s) if Blood Glucose is greater than 400 mg/dL 1200 (Due)1700 (Due) insulin lispro (HumaLOG) injection 3 Units (CANCELED) 3 Units, subcutaneous, 3 times daily with meals, First dose on Sat11/05/23 at 1700 1630 (Given - Provider: Imani Sarabia RN) 0741 (Given - Provider: Imani Sarabia RN) insulin lispro (HumaLOG) injection 3 Units (COMPLETED) 3 Units, subcutaneous, Once, On Sat11/06/23 at 0245, For 1 dose, Please administer to patient now and recheck blood glucose in 1 hr 0224 (Given - Provider: Pablito Gonzalez RN) lidocaine 4 % patch 1 patch 1 patch, transdermal, Administer over 12 Hours, Daily, First dose on Sat11/02/23 at 0630, Apply to back. Patch will remain on for 12 hours, then removed for [address] patch directly over any surgical incisions or wounds. 0900 (Not Given - Provider: Samy Mireles RN - Reason: Patient/family refused) 0822 (Not Given - Provider: Imani Sarabia RN - Reason: Patient/family refused) 0900 (Not Given - Provider: Imani Sarabia RN - Reason: Patient/family refused) methocarbamol (Robaxin) tablet 500 mg 500 mg, oral, Every 6 hours scheduled, First dose on Sat11/01/23 at 1200 0018 (Given - Provider: Pablito Gonzalez RN)0623 (Given - Provider: Pablito Gonzalez RN)1225 (Given - Provider: Samy Mireles RN)1845 (Given - Provider: Samy Mireles RN) 0011 (Given - Provider: Pablito Gonzalez RN)0519 (Given - Provider: Pablito Gonzalez RN)1219 (Given - Provider: Imani Sarabia, KISHA)1727 (Given - Provider: Imani Sarabia, RN)2354 (Given - Provider: Pablito Gonzalez, KISHA) 0527 (Given - Provider: Pablito Gonzalez, RN)1149 (Given - Provider: Imani Sarabia, RN)1800 (Due) nicotine (Nicoderm CQ) 14 mg/24 hr patch 1 patch 1 patch, transdermal, Administer over 24 Hours, Daily, First dose on Sat11/04/23 at 1045 1305 (Medication Applied - Provider: Samy Mireles RN) 0822 (Medication Removed - Provider: Imani Sarabia, RN)0823 (Medication Applied - Provider: Imani Sarabia, RN) 0823 (Medication Removed - Provider: Imani Sarabia, RN)0842 (Medication Applied - Provider: Imani Sarabia, RN) pancrelipase (Efe-Hegm-Sozx) (Creon) 36,000-114,000- 180,000 unit per capsule 2 capsule (CANCELED) 2 capsule, oral, 4 times daily before meals and nightly, First dose on Sat11/03/23 at 1100, Administer whole with food and sufficient fluid; do not crush or chew. Contents may be sprinkled on soft acidic food (such as applesauce or bananas) if swallowed immediately without chewing. If ordered per G-tube, thoroughly mix capsule contents into acidic food (applesauce or bananas). Stir gently; do not crush spheres. Within 15 minutes of mixing, give via a 35 mL slip-tip syringe into a 16F or larger diameter tube, then flush with ~10 mL of water. 0624 (Given - Provider: Pablito Gonzalez RN) pancrelipase (Fnq-Ifwe-Kgdx) (Creon) 36,000-114,000- 180,000 unit per capsule 2 capsule(Linked Group 1) 2 capsule, oral, 3 times daily with meals, First dose (after last modification) on Sat11/04/23 at 0800, Administer whole with food and sufficient fluid; do not crush or chew. Contents may be sprinkled on soft acidic food (such as applesauce or bananas) if swallowed immediately without chewing. If ordered per G-tube, thoroughly mix capsule contents into acidic food (applesauce or bananas). Stir gently; do not crush spheres. Within 15 minutes of mixing, give via a 35 mL slip-tip syringe into a 16F or larger diameter tube, then flush with ~10 mL of water. 0730 (Given - Provider: Lee Ann Larsen RN)1305 (Given - Provider: Samy Mireles RN - Comment: flexible meal times)1728 (Given - Provider: Samy Mireles RN) 0819 (Given - Provider: Imani Sarabia, KISHA)1218 (Given - Provider: Imani Sarabia RN)1628 (Given - Provider: Imani Sarabia RN) 0742 (Given - Provider: Imani Sarabia RN)1152 (Given - Provider: Imani Sarabia RN)1700 (Due) pantoprazole (ProtoNix) EC tablet 40 mg(Linked Group 2) 40 mg, oral, Daily before breakfast, First dose on Sat11/01/23 at 0700, Use pantoprazole tablet if patient can take meds orally. Do not crush, chew, or split. 0623 (Given - Provider: Pablito Gonzalez RN) 0652 (Given - Provider: Pablito Gonzalez RN) 0630 (Given - Provider: Pablito Gonzalez RN) sodium zirconium cyclosilicate (Lokelma) packet 10 g 10 g, oral, Every 8 hours, First dose on Sat11/05/23 at 0945, For 6 doses, Empty entire contents of packet(s) into 45 mL water. Stir well and administer immediately. If powder remains, rinse glass with water and administer. 1219 (Given - Provider: Imani Sarabia RN)1727 (Given - Provider: Imani Sarabia RN) 0105 (Given - Provider: Teresa Delgado RN)0846 (Given - Provider: Imani Sarabia, KISHA)1745 (Due) thiamine (Vitamin B-1) tablet 100 mg 100 mg, oral, Daily, First dose on Sat11/02/23 at 1215, For 7 days 0958 (Given - Provider: Samy Mireles RN) 0818 (Given - Provider: Imani Sarabia, RN) 0842 (Given - Provider: Imani Sarabia, KISHA) Continuous Medication Order 11/04/2023 11/05/2023 11/06/2023 lactated Ringer's infusion (CANCELED) 30 mL/hr, intravenous, Continuous, Starting on Sat11/01/23 at 2145 0107 (Rate/Dose Verify - Provider: Pablito Gonzalez RN)0655 (Stopped - Provider: Lee Ann Larsen RN) PRN Medication Order 11/04/2023 11/05/2023 11/06/2023 acetaminophen (Tylenol) tablet 650 mg (CANCELED) 650 mg, oral, Every 6 hours PRN, pain mild (1-3), first line, fever (temp greater than 38.0 C), Starting on Sat11/01/23 at 0720, If ordered PRN for pain, nurse is permitted to administer this medication for higher pain scores based on patient preference? Yes 2004 (Given - Provider: Pablito Gonzalez RN) 1725 (Given - Provider: Imani Sarabia RN) acetaminophen (Tylenol) tablet 650 mg 650 mg, oral, Every 6 hours PRN, pain mild (1-3), first line, Starting on Sat11/06/23 at 0516, If ordered PRN for pain, nurse is permitted to administer this medication for higher pain scores based on patient preference? Yes 6288 (Given - Provider: Imani Sarabia, RN) dextrose 10 % in water (D10W) infusion 0.3 g/kg/hr 54.6 kg (163.8 mL/hr), intravenous, Once as needed, For blood glucose less than 70 mg/dL after 30 minutes of intervention. Discontinue once blood glucose reaches 100 mg/dL., Starting on Sat10/31/23 at 2002, For 1 dose, Discontinue once blood glucose reaches 100 mg/dL. dextrose 50 % injection 25 g 25 g, intravenous, Every 15 min PRN, For blood glucose less than or equal to 40 mg/dL, Starting on Sat10/31/23 at 2002, May repeat until blood glucose level reaches 100 mg/dL or greater. Push 2 - 3 mL/minute if patient has secure IV access. diphenhydrAMINE (BENADryl) capsule 25 mg 25 mg, oral, Every 6 hours PRN, itching, Starting on Sat10/31/23 at 2002 glucagon (Glucagen) injection 1 mg 1 mg, intramuscular, Every 15 min PRN, low blood sugar - see comments, For blood glucose less than or equal to 70 mg/dL and no IV access, Starting on Sat10/31/23 at 2002, Give until blood glucose is 100 mg/dL or greater. If patient DOES NOT HAVE secure IV access & patient is unconscious, NPO or is unable to eat or drink. LORazepam (Ativan) tablet 0.5 mg 0.5 mg, oral, Every 8 hours PRN, anxiety, Starting on Sat11/01/23 at 1039 0630 (Given - Provider: Pablito Gonzalez, KISHA)2010 (Given - Provider: Pablito Gonzalez RN) 0953 (Given - Provider: Imani Sarabia, RN)2354 (Given - Provider: Pablito Gonzalez, RN) 1153 (Given - Provider: Imani Sarabia, RN) magnesium sulfate IV 2 g 2 g, intravenous, at 25 mL/hr, Administer over 2 Hours, Every 6 hours PRN, magnesium level 1.7-1.9 mg/dL, Starting on Sat11/01/23 at 0235 oxyCODONE (Roxicodone) immediate release tablet 10 mg 10 mg, oral, Every 6 hours PRN, pain moderate (4-6), first line, Starting on Sat11/01/23 at 1456, If ordered PRN for pain, nurse is permitted to administer this medication for higher pain scores based on patient preference? Yes oxyCODONE (Roxicodone) immediate release tablet 15 mg 15 mg, oral, Every 4 hours PRN, pain severe (7-10), first line, Starting on Sat11/02/23 at 2115, If ordered PRN for pain, nurse is permitted to administer this medication for higher pain scores based on patient preference? Yes 0247 (Given - Provider: Pablito Gonzalez RN)0630 (Given - Provider: Pablito Gonzalez RN)1031 (Given - Provider: Samy Mireles RN)1434 (Given - Provider: Samy Mireles RN)1839 (Given - Provider: Samy Mireles RN)2239 (Given - Provider: Pablito Gonzalez RN) 0335 (Given - Provider: Pablito Gonzalez, KISHA)0820 (Given - Provider: Imani Sarabia, KISHA)1219 (Given - Provider: Imani Sarabia, KISHA)1627 (Given - Provider: Imani Sarabia, KISHA)2042 (Given - Provider: Pablito Gonzalez, KISHA) 0109 (Given - Provider: Teresa Delgado RN)0527 (Given - Provider: Pablito Gonzalez RN)0930 (Given - Provider: Imani Sarabia, KISHA) pancrelipase (Kbz-Fqnc-Jzdg) (Creon) 36,000-114,000- 180,000 unit per capsule 1 capsule(Linked Group 1) 1 capsule, oral, As needed, snacks, Starting on Sat11/04/23 at 0721, Administer whole with food and sufficient fluid; do not crush or chew. Contents may be sprinkled on soft acidic food (such as applesauce or bananas) if swallowed immediately without chewing. If ordered per G-tube, thoroughly mix capsule contents into acidic food (applesauce or bananas). Stir gently; do not crush spheres. Within 15 minutes of mixing, give via a 35 mL slip-tip syringe into a 16F or larger diameter tube, then flush with ~10 mL of water. 1700 (Given - Provider: Imani Sarabia RN) promethazine (Phenergan) 6.25 mg in sodium chloride 0.9% 50 mL IV 6.25 mg, intravenous, Administer over 15 Minutes, Every 6 hours PRN, nausea/vomiting, first line, Starting on Sat11/01/23 at 1455 0248 (New Bag - Provider: Pablito Gonzalez RN)0303 (Stopped - Provider: Pablito Gonzalez, RN)1305 (New Bag - Provider: Samy Mireles, RN)1320 (Stopped - Provider: Samy Mireles RN)2120 (New Bag - Provider: Teresa Delgado, KISHA)2135 (Stopped - Provider: Pablito Gonzalez, RN) 0952 (New Bag - Provider: Imani Sarabia RN)1007 (Stopped - Provider: Imani Sarabia RN)1836 (New Bag - Provider: Imani Sarabia RN)1851 (Stopped - Provider: Imani Sarabia RN) 0541 (New Bag - Provider: Pablito Gonzalez, RN)0556 (Stopped - Provider: Pablito Gonzalez RN) Linked Groups Order Group 1: pancrelipase (Wzf-Mvez-Fwvo) (Creon) 36,000-114,000- 180,000 unit per capsule 2 capsuleJump to med 2 capsule, oral, 3 times daily with meals, First dose (after last modification) on Sat11/04/23 at 0800
Administer whole with food and sufficient fluid; do not crush or chew. Contents may be sprinkled on soft acidic food (such as applesauce or bananas) if swallowed immediately without chewing. If ordered per G-tube, thoroughly mix capsule contents into acidic food (applesauce or bananas). Stir gently; do not crush spheres. Within 15 minutes of mixing, give via a 35 mL slip-tip syringe into a 16F or larger diameter tube, then flush with ~10 mL of water.
And pancrelipase (Sfy-Prws-Wxcz) (Creon) 36,000-114,000- 180,000 unit per capsule 1 capsuleJump to med 1 capsule, oral, As needed, snacks, Starting on Sat11/04/23 at 0721
Administer whole with food and sufficient fluid; do not crush or chew. Contents may be sprinkled on soft acidic food (such as applesauce or bananas) if swallowed immediately without chewing. If ordered per G-tube, thoroughly mix capsule contents into acidic food (applesauce or bananas). Stir gently; do not crush spheres. Within 15 minutes of mixing, give via a 35 mL slip-tip syringe into a 16F or larger diameter tube, then flush with ~10 mL of water.
Group 2: pantoprazole (ProtoNix) EC tablet 40 mgJump to med 40 mg, oral, Daily before breakfast, First dose on Sat11/01/23 at 0700
Use pantoprazole tablet if patient can take meds orally. Do not crush, chew, or split.
Or esomeprazole (NexIUM) suspension 40 mg (CANCELED) 40 mg, nasoduodenal tube, Daily before breakfast, First dose on Sat11/01/23 at 0700
Use esomeprazole suspension if patient cannot take meds orally but has feeding tube. Add 15 mL water to catheter-tipped syringe, add granules from packet. Shake and let thicken. Administer through NG tube within 30 minutes. Refill with 15 mL of water, shake and flush NG tube.
Or pantoprazole (ProtoNix) injection 40 mg (CANCELED) 40 mg, intravenous, Daily before breakfast, First dose on Sat11/01/23 at 0700
Use pantoprazole injection if patient unable to take meds orally or per feeding tube. Reconstitute with 10 mL sodium chloride 0.9% for injection. Push over 2 minutes.
FOR RECORDS PERTAINING TO PATIENTS WHO ARE OR HAVE BEEN ENROLLED IN A CHEMICAL DEPENDENCY/SUBSTANCEABUSE PROGRAM, SOME INFORMATION MAY BE OMITTED. This clinical summary was aggregated from multiple sources. Caution should be exercised in using it in the provision of clinical care. This summary normalizes information from multiple sources, and as a consequence, information in this document may materially change the coding, format and clinical context of patient data. In addition, data may be omitted in some cases. CLINICAL DECISIONS SHOULD BE BASED ON THE PRIMARY CLINICAL RECORDS. [facility] provides no warranty or guarantee of the accuracy or completeness of information in this document.
[2023-12-13] MEDS: ENOXAPARIN SODIUM 40 MG/0.4 ML SYRINGE SUBQ (17:27)
[2023-12-13] MEDS: LACTATED RINGER'S SOLUTION 1,000 ML 125 ML IV (17:28)
--- NOTE | 2023-12-13 17:51 | PC.NURSE ---
controlled meds counted with pharmacist so and locked in pts room drawer.
[2023-12-13 17:59] LABS: Glucometer 31 mg/dL (74-106)
[2023-12-13 17:59] LABS: Glucometer 33 mg/dL (74-106)
[2023-12-13] MEDS: PROMETHAZINE HCL 25 MG in 0.9 % SODIUM CHLORIDE 50 ML 204 MG IV (18:15)
[2023-12-13 18:19] LABS: Glucometer 164 mg/dL (74-106)
--- NOTE | 2023-12-13 18:22 | PC.NURSE ---
Rechecked patient blood glucose 164, meal ordered
[2023-12-13 20:17] LABS: Glucometer 77 mg/dL (74-106)
[2023-12-13] MEDS: MIRTAZAPINE 15 MG TABLET 7.5 MG PO (22:25)
[2023-12-13] MEDS: TRAZODONE HCL 150 MG TABLET PO (22:26)
[2023-12-13] MEDS: TRAZODONE HCL 50 MG TABLET PO (22:26)
[2023-12-13] MEDS: ONDANSETRON 4 MG RAPDIS TABLET PO (22:31)
[2023-12-13] MEDS: OXYCODONE HCL 15 MG TABLET PO (22:31)
[2023-12-13 22:53] LABS: Glucometer 144 mg/dL (74-106)
[2023-12-14] VITALS (64 sets, daily range): BP systolic 84–116; BP diastolic 58–89; PULSE 54–106; TEMP 36.6–37.1; O2SAT 93–100
[2023-12-14 01:06] LABS: Glucometer 222 mg/dL (74-106)
[2023-12-14 04:13] LABS: Glucometer 41 mg/dL (74-106)
[2023-12-14 04:36] LABS: Glucometer 81 mg/dL (74-106)
[2023-12-14 05:26] LABS: Hematocrit 29.9 % (36.0-48.0); Hemoglobin 9.2 g/dL (12.0-16.0); Mean Corpuscular HGB Conc 30.8 g/dL (29.9-35.2); Mean Corpuscular Hemoglobin 26.7 pg (26.7-34.0); Mean Corpuscular Volume 86.9 fL (81.0-99.0); Mean Platelet Volume 10.5 fL (9.5-13.5); Platelet Count 440 10^3/uL (150-450); Red Blood Count 3.44 10^6/uL (4.20-5.40); Red Cell Distribution Width 16.6 % (11.0-15.0); White Blood Count 11.8 10^3/uL (4.0-11.0)
[2023-12-14 05:40] LABS: Estimated Average Glucose 160 mg/dL; Glycohemoglobin A1C 7.2 % (4.5-6.2)
[2023-12-14 05:55] LABS: Alanine Aminotransferase 27 U/L (14-59); Albumin Globulin Ratio 0.5; Albumin Level 1.8 g/dL (3.4-5.0); Alkaline Phosphatase 99 U/L (46-116); Anion Gap 11.6; Aspartate Amino Transferase 49 U/L (15-37); BUN Creatinine Ratio 15.9; Bilirubin Total 0.2 mg/dL (0.2-1.0); Calcium 7.5 mg/dL (8.5-10.1); Carbon Dioxide 26.1 mmol/L (21.0-32.0); Chloride 108 mmol/L (98-107); Estimated GFR (African America >60 (>=60); Estimated GFR (Non-African Ame >60 (>=60); Globulin 3.5 g/dL; Magnesium 1.6 mg/dL (1.8-2.4); Potassium 3.7 mmol/L (3.5-5.1); Sodium 142 mmol/L (136-145); Thyroid Stimulating Hormone 10.278 uIU/mL (0.358-3.740); Total Protein 5.3 g/dL (6.4-8.2)
[2023-12-14 05:58] LABS: Glucose 28 mg/dL (74-106)
[2023-12-14 06:16] LABS: Anisocytosis 2+; Atypical Lymphocytes Abs Man 2.12; Band Neutrophils Absolute 0.8 10^3/uL (0.0-0.3); Basophils Abs Manual 0.11 10^3/uL (0.00-0.10); Microcytosis 1+; Monocytes Absolute Manual 0.59 10^3/uL (0.30-0.80); Ovalocytes 2+; Poikilocytosis 3+; Segmented Neut Absolute Manual 3.65 10^3/uL (1.4-6.5)
[2023-12-14 06:17] LABS: Schistocytes 3+; Stomatocytes 2+; Toxic Granulation 3+
[2023-12-14 06:26] LABS: Glucometer 162 mg/dL (74-106)
[2023-12-14] MEDS: LACTATED RINGER'S SOLUTION 1,000 ML 125 ML IV ×2 (06:32→08:49)
[2023-12-14] MEDS: OMEPRAZOLE 40 MG CAPSULE.DR PO (06:34)
[2023-12-14 07:20] LABS: Glucometer 158 mg/dL (74-106)
[2023-12-14] MEDS: OXYCODONE HCL 15 MG TABLET PO ×4 (07:23→21:50)
[2023-12-14] MEDS: CITALOPRAM HYDROBROMIDE 20 MG TABLET PO (09:48)
[2023-12-14] MEDS: MAGNESIUM OXIDE 400 MG TABLET PO ×2 (09:48→21:50)
[2023-12-14] MEDS: CHOLECALCIFEROL (VITAMIN D3) 25 MCG/1,000 UNITS TABLET PO (09:48)
[2023-12-14] MEDS: ENOXAPARIN SODIUM 40 MG/0.4 ML SYRINGE SUBQ (09:48)
[2023-12-14] MEDS: LEVOTHYROXINE SODIUM 75 MCG TABLET PO (09:48)
[2023-12-14] MEDS: ENSURE HP 237 ML LIQUID PO (09:49)
[2023-12-14] MEDS: LEVOFLOXACIN IN DEXTROSE 5 % 750 MG/150 ML IV.SOLN 100 MG IV (09:52)
--- NOTE | 2023-12-14 11:58 | P.PN_ITS ---
Progress Note: Subjective Subjective Interval history: Patient awake alert and talkative, oriented. Feels improved from previous day. Does not recall the events of the previous day. Try to obtain more information if anything would change medication jones nothing has been different. Patient does have a UTI with sepsis which may be resulting in a cause for the hypoglycemia Exam Constitutional Vital Signs, click to edit/add: Last Vital Signs Temp 98.8 F 12/14/23 06:00 Pulse 59 L 12/14/23 10:30 Resp 17 12/14/23 06:00 BP 102/72 12/14/23 07:15 Pulse Ox 93 L 12/14/23 08:00 O2 Del Method Room Air 12/14/23 10:00 O2 Flow Rate 2 12/13/23 16:34 Common normals: no apparent distress Exam limitations: no altered mental status HENMT Common normals: normocephalic and head/scalp atraumatic Chest Common normals: inspection of chest normal and palpation of chest normal Respiratory Common normals: normal respiratory effort and no retractions Cardio Common normals: regular rate and regular rhythm GI Common normals: Normal to inspection, nondistended, normoactive bowel sounds present Progress Note: Objective Labs Labs: Short CBC 12/13/23 12/14/23 Range/Units 12:42 04:07 WBC 10.5 11.8 H (4.0-11.0) 10^3/uL Hgb 10.8 L 9.2 L (12.0-16.0) g/dL Hct 35.7 L 29.9 L (36.0-48.0) % Plt Count 512 H 440 (150-450) 10^3/uL BMP 12/13/23 12/14/23 12:42 04:07 Sodium 138 142 Potassium 4.3 3.7 Chloride 102 108 H Carbon Dioxide 27.5 26.1 BUN 12.0 11.0 Creatinine 0.81 0.69 Glucose 313 H 28 L* Calcium 7.9 L 7.5 L Liver Function 12/13/23 12/14/23 Range/Units 12:42 04:07 Total Bilirubin 0.2 0.2 (0.2-1.0) mg/dL Direct Bilirubin 0.1 (0.0-0.2) mg/dL AST 76 H 49 H (15-37) U/L ALT 40 27 (14-59) U/L Alkaline Phosphatase 136 H 99 (46-116) U/L Albumin 2.6 L 1.8 L (3.4-5.0) g/dL Urine 12/13/23 Range/Units 14:46 Urine Color Lt. yellow (YELLOW) Urine Clarity Cloudy A (CLEAR) Urine pH 6.5 (5.0-9.0) Ur Specific Warren 1.015 (1.005-1.025) Urine Protein Negative (NEG/TRACE) mg/dL Urine Glucose (UA) 500 A (NEGATIVE) mg/dL Progress Note: A&P Assessment and Plan (1) Hypothermia: Qualifiers: Encounter type: initial encounter Qualified Code(s): T68.XXXA - Hyp othermia, initial encounter (2) Hypoglycemia: (3) Urinary tract infection: Qualifiers: Hematuria presence: without hematuria Urinary tract infection type: acute cystitis Qualified Code(s): N30.00 - Acute cystitis without hematuria (4) Diabetes: Qualifiers: Diabetes mellitus complication detail: with coma Diabetes mellitus complication status: with hypoglycemia Diabetes mellitus watermelon inspector insulin use: with watermelon inspector use Diabetes mellitus type: due to underlying condition Qual ified Code(s): E08.641 - Diabetes mellitus due to underlying condition with hypoglycemia with coma; Z79.4 - superintendent container terminal (current) use of insulin (5) Crohn disease: Qualifiers: Digestive disease complication type: unspecified complication Gastrointestinal tract location: unspecified location Qualified Code(s): K50.919 - Crohn's disease, unspecified, with unspecified complications (6) Opioid abuse with intoxication with complication: (7) Anxiety: (8) ADHD (attention deficit hyperactivity disorder): Qualifiers: Attention deficit-hyperactivity disorder type: unspecified Qualified Code(s): F90.9 - Attention-deficit hyperactivity disorder, unspecified type Plan Hypothermia, hypotension, hypoxia (86%), severe hypoglycemia, leukocytosis with bandemia due to acute UTI-culture pending, resulting in severe sepsis -cultures pending. Add second antibiotic with progression of leukocytosis. Poorly controlled diabetes mellitus-possible result of the infection as outlined above, we will hold off on long-acting insulin and use just sliding scale currently. Patient not using nighttime feeds I suspect that was an issue with her hyperglycemia Crohn's colitis with severe protein calorie malnutrition-patient recommended to be on 19 tube feeds with tube is currently malfunctioning. 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 Patient had total pancreatectomy-splenectomy secondary to chronic pancreatitis- not a Whipple procedure L Iron deficiency anemia-monitor daily-down 3 g from her baseline, will check occult blood also. On PPI Thrombocythemia likely secondary to the infection as outlined above-monitor daily Elevated liver function test likely related to the sepsis as outlined above, monitor daily Hypothyroidism-add medication Hypomagnesemia-supplement Inpatient criteria: The severity of hypoglycemia and likely sepsis with cultures pending, progression of leukocytosis with bandemia-patient here with 3 to 4 days stay likely secondary to severity of symptoms and need to control hypoglycemia ?
[2023-12-14] MEDS: Lipase-Protease-Amylase [Creon] 36,000-114,000- 180,000 unit cap 1 EACH PO ×2 (12:05→16:23)
[2023-12-14] MEDS: PROSTAT 15 GM PROTEIN/100 CAL 30 ML LIQUID PACKET PO (12:37)
--- NOTE | 2023-12-14 13:04 | PC.NURSE ---
pt and significant other aware of transfer to room 221. pt taken to room with meds and belongings. bedside report given to KISHA Rabago.
[2023-12-14] MEDS: CEFTRIAXONE 1,000 MG in 0.9 % SODIUM CHLORIDE 50 ML 100 MG IV (15:34)
[2023-12-14] MEDS: MIRTAZAPINE 15 MG TABLET 7.5 MG PO (21:50)
[2023-12-14] MEDS: TRAZODONE HCL 150 MG TABLET PO (21:58)
[2023-12-14] MEDS: TRAZODONE HCL 50 MG TABLET PO (21:58)
[2023-12-15] VITALS (8 sets, daily range): BP systolic 108–129; BP diastolic 73–91; PULSE 48–63; TEMP 36.6–36.9; O2SAT 90–96
[2023-12-15] MEDS: LORAZEPAM 0.5 MG TABLET PO ×2 (00:06→17:20)
[2023-12-15] MEDS: LACTATED RINGER'S SOLUTION 1,000 ML 50 ML IV (00:08)
[2023-12-15] MEDS: OXYCODONE HCL 15 MG TABLET PO ×4 (05:19→21:12)
[2023-12-15] MEDS: OMEPRAZOLE 40 MG CAPSULE.DR PO (05:19)
[2023-12-15] MEDS: LEVOTHYROXINE SODIUM 75 MCG TABLET PO (05:20)
[2023-12-15 06:25] LABS: Basophils Absolute Auto 0.1 10^3/uL (0.0-0.1); Basophils Percent Auto 1.7 % (0.2-2.0); Eosinophils Absolute Auto 0.2 10^3/uL (0.0-0.7); Hematocrit 29.7 % (36.0-48.0); Immature Granulocytes Abs Auto 0.01 10^3/uL (0.00-0.03); Immature Granulocytes Pct Auto 0.2 % (0.0-0.5); Lymphocytes Absolute Auto 4.6 10^3/uL (1.2-3.8); Lymphocytes Percent Auto 69.7 % (20.5-60.0); Mean Corpuscular HGB Conc 30.3 g/dL (29.9-35.2); Mean Corpuscular Hemoglobin 26.1 pg (26.7-34.0); Mean Corpuscular Volume 86.1 fL (81.0-99.0); Monocytes Absolute Auto 0.5 10^3/uL (0.3-0.8); Monocytes Percent Auto 7.8 % (1.7-12.0); Neutrophils Absolute Auto 1.2 10^3/uL (1.4-6.5); Neutrophils Percent Auto 17.6 % (43.0-75.0); Platelet Count 411 10^3/uL (150-450); Red Blood Count 3.45 10^6/uL (4.20-5.40); Red Cell Distribution Width 16.6 % (11.0-15.0); White Blood Count 6.6 10^3/uL (4.0-11.0)
[2023-12-15 06:36] LABS: Alanine Aminotransferase 28 U/L (14-59); Albumin Globulin Ratio 0.5; Albumin Level 1.5 g/dL (3.4-5.0); Alkaline Phosphatase 94 U/L (46-116); Anion Gap 9.6; Aspartate Amino Transferase 55 U/L (15-37); BUN Creatinine Ratio 11.2; Bilirubin Total 0.2 mg/dL (0.2-1.0); Calcium 7.6 mg/dL (8.5-10.1); Carbon Dioxide 29.6 mmol/L (21.0-32.0); Chloride 103 mmol/L (98-107); Estimated GFR (African America >60 (>=60); Estimated GFR (Non-African Ame >60 (>=60); Globulin 3.3 g/dL; Glucose 231 mg/dL (74-106); Magnesium 1.6 mg/dL (1.8-2.4); Potassium 4.2 mmol/L (3.5-5.1); Sodium 138 mmol/L (136-145); Total Protein 4.8 g/dL (6.4-8.2)
[2023-12-15] MEDS: LEVOFLOXACIN IN DEXTROSE 5 % 750 MG/150 ML IV.SOLN 100 MG IV (08:46)
[2023-12-15] MEDS: ENOXAPARIN SODIUM 40 MG/0.4 ML SYRINGE SUBQ (08:46)
[2023-12-15] MEDS: MAGNESIUM OXIDE 400 MG TABLET PO ×3 (08:46→21:08)
[2023-12-15] MEDS: CHOLECALCIFEROL (VITAMIN D3) 25 MCG/1,000 UNITS TABLET PO (08:46)
[2023-12-15] MEDS: CITALOPRAM HYDROBROMIDE 20 MG TABLET PO (08:46)
[2023-12-15] MEDS: Lipase-Protease-Amylase [Creon] 36,000-114,000- 180,000 unit cap 1 EACH PO ×3 (08:47→17:22)
[2023-12-15] MEDS: PROSTAT 15 GM PROTEIN/100 CAL 30 ML LIQUID PACKET PO (08:47)
[2023-12-15] MEDS: INSULIN DETEMIR 300 UNIT/3 ML INSULN.PEN 6 UNIT SUBQ (10:01)
--- NOTE | 2023-12-15 10:18 | P.GSCN_ITS ---
History of Present Illness Consult details Narrative: 38 yo F with recent Hx of whipple for chronic pancreatitis. She unsure if it was pylorus sparing or not. J tube placed at same time. She has not been using the J tube for some time, only flushing it daily for patency as instructed. She has an appointment with her [facility] surgeons this week. Encouraged her to call ahead to let them know she is having issues with her J tube and to plan on discussing ocean transportation intermediary plan for the J tube. She denies any f/c/n/v currently. She is tolerating PO intake and BMs are normal. Review of Systems ROS Status of ROS 10 or more systems reviewed and unremark able except as noted in history and below [facility] Medical History (Updated 12/13/23 @ 17:37 by Yady Timmons DO) Diabetes ?E11.9 - Type 2 diabetes mellitus without complications (ICD-10) Crohn disease ?K50.90 - Crohn's disease, unspecified, without complications (ICD-10) Surgical History H/O splenectomy ?Z90.81 - Acquired absence of spleen (ICD-10) Hx of cholecystectomy ?Z90.49 - Acquired absence of other specified parts of digestive tract (ICD- 10) 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 Smoking status: Current every day smoker Do you use any of these nicotine containing products: e-cigarettes Non-prescribed substance use: denies use Highest level of school completed/degree received: Associate degree: academic program Are you now , , , , never or living with a partner: living with partner In a typical week, how many times do you talk on the telephone with family, friends, or neighbors: once per week How often do you get together with friends or relatives: twice per week How often do you attend confucianism or buddhist services: never Do you belong to any clubs or organizations such as confucianism groups unions, fraternal or athletic groups, or school groups: no Total score: 2 Score interpretation: A score of greater than or equal to 2 indicates the lowest level of social isolation. Little interest or pleasure in doing things: several days Feeling down, depressed, or hopeless: several days Feel stressed/tense/nervous/anxious/difficulty sleeping: very much Due to disability, difficulty making decisions: No Do you think of yourself as: straight/heterosexual Gender Identity: female Meds Home Medications and Allergies Home Medications ?Medication ?Instructions ?Recorded ?Confirmed ?Type blood-glucose sensor (Dexcom G7 12/13/23 12/13/23 History Sensor device) cariprazine 1.5 mg capsule 1.5 mg PO DAILY 12/13/23 12/13/23 History (Vraylar) cholecalciferol (vitamin D3) 25 1,000 unit PO DAILY 12/13/23 12/13/23 History mcg (1,000 unit) capsule citalopram 20 mg tablet 20 mg PO DAILY 12/13/23 12/13/23 History clonidine HCl 0.1 mg tablet 0.1 mg PO .qhs 12/13/23 12/13/23 History hydromorphone 8 mg tablet,extended 8 mg PO BID 12/13/23 12/13/23 History release 24 hr insulin glargine 100 unit/mL (3 8 unit subcut .QHS 12/13/23 12/13/23 History mL) subcutaneous pen (Lantus Solostar U-100 Insulin) insulin lispro 100 unit/mL 1 sliding scale dose subcut .TIDAC 12/13/23 12/13/23 History subcutaneous pen kknbjp-naedolyj-fizjzvq 3 cap PO TID PRN snacks 12/13/23 12/13/23 History 12,000-38,000-60,000 unit capsule,delayed rel (Creon) dyvesp-sdtseejm-vcdgmub 1 cap PO TIDWM 12/13/23 12/13/23 History 36,000-114,000-180,000 unit capsule,delay rel (Creon) lorazepam 0.5 mg tablet 0.5 mg PO Q6H PRN anxiety 12/13/23 12/13/23 History mirtazapine 7.5 mg tablet 7.5 mg PO BEDTIME 12/13/23 12/13/23 History oxycodone 15 mg tablet 15 mg PO Q4H PRN pain 12/13/23 12/13/23 History pantoprazole 40 mg tablet,delayed 40 mg PO DAILY 12/13/23 12/13/23 History release promethazine 25 mg tablet 25 mg PO Q6H PRN nausea and 12/13/23 12/13/23 History vomiting trazodone 100 mg tablet 200 mg PO .qhs 12/13/23 12/13/23 History Allergies Allergy/AdvReac Type Severity Reaction Status Date / Time sulfamethoxazole AdvReac Mild Verified 12/13/23 12:55 [From Bactrim] trimethoprim [From Bactrim] AdvReac Mild Verified 12/13/23 12:55 Exam Constitutional Vital Signs, click to edit/add: Last Vital Signs Temp 97.9 F 12/15/23 07:27 Pulse 48 L 12/15/23 07:27 Resp 16 12/15/23 07:27 BP 112/75 12/15/23 07:27 Pulse Ox 93 L 12/15/23 07:27 O2 Del Method Room Air 12/15/23 07:27 O2 Flow Rate 2 12/13/23 16:34 Common normals: no apparent distress and oriented x3 HENMT Common normals: normocephalic Head and scalp: normal to inspection Eye Common normals: PERRL and EOMs intact bilaterally Respiratory Common normals: normal respiratory effort and no retractions Cardio Common normals: regular rate and regular rhythm GI Common normals: soft to palpation and non-tender Palpation: guarding and rigid Other: J tub in LLQ no excoriation noted at insertion site, no active drainage at this time, dressing replaced over area, scars consistent with Sx Hx Extremity Common normals: normal to inspection Neuro Common normals: oriented x3 Speech: speech normal Results Labs Labs: Abnormal lab results 12/15/23 Range/Units 06:10 RBC 3.45 L (4.20-5.40) 10^6/uL Hgb 9.0 L (12.0-16.0) g/dL Hct 29.7 L (36.0-48.0) % MCH 26.1 L (26.7-34.0) pg RDW 16.6 H (11.0-15.0) % Neut % (Auto) 17.6 L (43.0-75.0) % Lymph % (Auto) 69.7 H (20.5-60.0) % Neut # (Auto) 1.2 L (1.4-6.5) 10^3/uL Lymph # (Auto) 4.6 H (1.2-3.8) 10^3/uL Glucose 231 H (74-106) mg/dL Calcium 7.6 L (8.5-10.1) mg/dL Magnesium 1.6 L (1.8-2.4) mg/dL AST 55 H (15-37) U/L Total Protein 4.8 L (6.4-8.2) g/dL Albumin 1.5 L (3.4-5.0) g/dL Diabetes panel 12/15/23 Range/Units 06:10 Sodium 138 (136-145) mmol/L Potassium 4.2 (3.5-5.1) mmol/L Chloride 103 (98-107) mmol/L Carbon Dioxide 29.6 (21.0-32.0) mmol/L BUN 9.0 (7.0-18.0) mg/dL Creatinine 0.80 (0.55-1.02) mg/dL Glucose 231 H (74-106) mg/dL Calcium 7.6 L (8.5-10.1) mg/dL AST 55 H (15-37) U/L ALT 28 (14-59) U/L Alkaline Phosphatase 94 (46-116) U/L Total Protein 4.8 L (6.4-8.2) g/dL Albumin 1.5 L (3.4-5.0) g/dL Calcium panel 12/15/23 Range/Units 06:10 Calcium 7.6 L (8.5-10.1) mg/dL Albumin 1.5 L (3.4-5.0) g/dL Pituitary panel 12/15/23 Range/Units 06:10 Sodium 138 (136-145) mmol/L Potassium 4.2 (3.5-5.1) mmol/L Chloride 103 (98-107) mmol/L Carbon Dioxide 29.6 (21.0-32.0) mmol/L BUN 9.0 (7.0-18.0) mg/dL Creatinine 0.80 (0.55-1.02) mg/dL Glucose 231 H (74-106) mg/dL Calcium 7.6 L (8.5-10.1) mg/dL Adrenal panel 12/15/23 Range/Units 06:10 Sodium 138 (136-145) mmol/L Potassium 4.2 (3.5-5.1) mmol/L Chloride 103 (98-107) mmol/L Carbon Dioxide 29.6 (21.0-32.0) mmol/L BUN 9.0 (7.0-18.0) mg/dL Creatinine 0.80 (0.55-1.02) mg/dL Glucose 231 H (74-106) mg/dL Calcium 7.6 L (8.5-10.1) mg/dL Total Bilirubin 0.2 (0.2-1.0) mg/dL AST 55 H (15-37) U/L ALT 28 (14-59) U/L Alkaline Phosphatase 94 (46-116) U/L Total Protein 4.8 L (6.4-8.2) g/dL Albumin 1.5 L (3.4-5.0) g/dL All other labs normal. Assessment and Plan Assessment and Plan (1) Hypothermia: Qualifiers: Encounter type: initial encounter Qualified Code(s): T68.XXXA - Hypothermia, initial encounter (2) Hypoglycemia: (3) Urinary tract infection: Qualifiers: Hematuria presence: without hematuria Urinary tract infection type: acute cystitis Qualified Code(s): N30.00 - Acute cystitis without hematuria (4) Diabetes: Qualifiers: Diabetes mellitus type: due to underlying condition Diabetes mellitus ocean transportation intermediary insulin use: with ocean transportation intermediary use Diabetes mellitus complication status: with hypoglycemia Diabetes mellitus complication detail: with coma Qualified Code(s): E08.641 - Diabetes mellitus due to underlying condition with hypoglycemia with coma; Z79.4 - terminal make up operator (current) use of insulin (5) Crohn disease: Qualifiers: Gastrointestinal tract location: unspecified location Digestive disease complication type: unspecified complication Qualified Code(s): K50.919 - Crohn's disease, unspecified, with unspecified complications (6) Opioid abuse with intoxication with complication: (7) Anxiety: (8) ADHD (attention deficit hyperactivity disorder): Qualifiers: Attention deficit-hyperactivity disorder type: unspecified Qualified Code(s): F90.9 - Attention-deficit hyperactivity disorder, unspecified type Plan The patient has a J tube and has not been using it as she has been tolerating PO intake and medicines. There are concerns about a leak in the actual tubing itself. She has an appointment with her [facility] surgeons at this week and will discuss with them plan moving forward for the J tube. For now keep the area clean and replace dressings as needed.
[2023-12-15 11:07] LABS: Insulin 0.6 uIU/mL (2.6-24.9)
[2023-12-15] MEDS: INSULIN ASPART 300 UNIT/3 ML PEN SUBQ (12:08)
--- NOTE | 2023-12-15 12:27 | P.PN_ITS ---
Progress Note: Subjective Subjective Interval history: Patient does feel improved today. Exam Constitutional Vital Signs, click to edit/add: Last Vital Signs Temp 98.1 F 12/15/23 12:11 Pulse 61 12/15/23 12:11 Resp 18 12/15/23 12:11 BP 129/91 12/15/23 12:11 Pulse Ox 90 L 12/15/23 12:11 O2 Del Method Room Air 12/15/23 12:11 O2 Flow Rate 2 12/13/23 16:34 Common normals: no apparent distress and oriented x3 Exam limitations: no altered mental status HENMT Common normals: normocephalic Head and scalp: normal to inspection Eye Common normals: PERRL and EOMs intact bilaterally Chest Common normals: inspection of chest normal and palpation of chest normal Respiratory Common normals: normal respiratory effort and no retractions Cardio Common normals: regular rate and regular rhythm GI Common normals: soft to palpation and non-tender Palpation: guarding and rigid Other: J tub in LLQ no excoriation noted at insertion site, no active drainage at this time, dressing replaced over area, scars consistent with Sx Hx Extremity Common normals: normal to inspection Neuro Common normals: oriented x3 Speech: speech normal Progress Note: Objective Labs Labs: Short CBC 12/15/23 Range/Units 06:10 WBC 6.6 (4.0-11.0) 10^3/uL Hgb 9.0 L (12.0-16.0) g/dL Hct 29.7 L (36.0-48.0) % Plt Count 411 (150-450) 10^3/uL BMP 12/15/23 06:10 Sodium 138 Potassium 4.2 Chloride 103 Carbon Dioxide 29.6 BUN 9.0 Creatinine 0.80 Glucose 231 H Calcium 7.6 L Liver Function 12/15/23 Range/Units 06:10 Total Bilirubin 0.2 (0.2-1.0) mg/dL AST 55 H (15-37) U/L ALT 28 (14-59) U/L Alkaline Phosphatase 94 (46-116) U/L Albumin 1.5 L (3.4-5.0) g/dL Progress Note: A&P Assessment and Plan (1) Hypothermia: Qualifiers: Encounter type: initial encounter Qualified Code(s): T68.XXXA - Hypothermia, initial encounter (2) Hypoglycemia: (3) Urinary tract infection: Qualifiers: Hematuria presence: without hematuria Urinary tract infection type: acute cystitis Qualified Code(s): N30.00 - Acute cystitis without hematuria (4) Diabetes: Qualifiers: Diabetes mellitus complication detail: with coma Diabetes mellitus complication status: with hypoglycemia 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 Diabetes mellitus type: due to underlying condition Qualified Code(s): E08.641 - Diabetes mellitus due to underlying condition with hypoglycemia with coma; 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 (5) Crohn disease: Qualifiers: Digestive disease complication type: unspecified complication Gastrointestinal tract location: unspecified location Qualified Code(s): K50.919 - Crohn's disease, unspecified, with unspecified complications (6) Opioid abuse with intoxication with complication: (7) Anxiety: (8) ADHD (attention deficit hyperactivity disorder): Qualifiers: Attention deficit-hyperactivity disorder type: unspecified Qualified Code(s): F90.9 - Attention-deficit hyperactivity disorder, unspecified type Plan Admitted with: Hypothermia, hypotension, hypoxia (86%), severe hypoglycemia, leukocytosis with bandemia due to acute UTI due to Klebsiella-continue with current IV antibiotics, sugars are still rapidly fluctuating. Poorly controlled diabetes mellitus-possible result of the infection as outlined above, will add back long-acting today, do split dosing secondary to severe hyper and hypoglycemia episode she has been having at home. Crohn's colitis with severe protein calorie malnutrition-will start tube feeds this evening, started 30 cc/h of Jevity for 8 hours through her J-tube. 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 On PPI Thrombocythemia likely secondary to the infection as outlined above-monitor daily Elevated liver function test likely related to the sepsis as outlined above, david onitor daily-elevated slightly today Hypothyroidism-add medication Hypomagnesemia-supplement Inpatient criteria: The severity of hypoglycemia and likely sepsis with cultures pending, progression of leukocytosis with bandemia-possibly just a 3-day stay now with overall improvement in her sugars, now significantly elevated though. Still fluctuating rapidly here. Possible discharge tomorrow with adding long- acting insulin today ? ?
--- NOTE | 2023-12-15 16:20 | PC.NURSE ---
RN placed 14f catheter using sterile technique into J tube hold of patients abdomen. Once catheter was placed, 3cc NS was placed in the balloon. Catheter was clamped and taped to skin per direction from Dr. Barnes. Writing RN then covered catheter with 4x4 gauze and taped that to patient's abdomen. RN was instructed to do this per Dr. Barnes to maintain patency of the hole until patient can follow up with surgeon after discharge.
[2023-12-15] MEDS: CEFTRIAXONE 1,000 MG in 0.9 % SODIUM CHLORIDE 50 ML 100 MG IV (16:28)
[2023-12-15 20:05] LABS: Glucometer 80 mg/dL (74-106)
[2023-12-15] MEDS: TRAZODONE HCL 150 MG TABLET PO (21:08)
[2023-12-15] MEDS: MIRTAZAPINE 15 MG TABLET 7.5 MG PO (21:08)
[2023-12-15] MEDS: TRAZODONE HCL 50 MG TABLET PO (21:09)
[2023-12-16] VITALS: BP 97/68; PULSE 56; TEMP 36.6; O2SAT 93
[2023-12-16 04:00] VITALS: BP 116/75; PULSE 62; TEMP 36.8; O2SAT 94
[2023-12-16 04:43] VITALS: O2SAT 95
[2023-12-16] MEDS: MAGNESIUM OXIDE 400 MG TABLET PO ×2 (05:11→13:20)
[2023-12-16] MEDS: LORAZEPAM 0.5 MG TABLET PO (05:11)
[2023-12-16] MEDS: OMEPRAZOLE 40 MG CAPSULE.DR PO (05:11)
[2023-12-16] MEDS: OXYCODONE HCL 15 MG TABLET PO ×3 (05:12→13:24)
[2023-12-16] MEDS: LEVOTHYROXINE SODIUM 75 MCG TABLET PO (05:12)
--- OUTSIDE RECORDS SUMMARY | 2023-12-16 07:37 | XMS_ITS | CCD ---
Author Organization [facility] Care Team Providers Care Hanger Name Role Phone Jeanettechris Nehemiah Unavailable Unavailable [...] DO Primary Care Provider Harjit Amaral Unavailable Unavailable Unavailable Nat Medina DO Primary Care Provider Harjit Mcdowell Unavailable [phone] DR NAT MEDINA Admitting Unavailable CAROL, DR [...] DO Primary Care Provider Harjit Amaral Unavailable SORAIDA STEINBERG Admitting Unavailable VICKY WHALEY Referring [...] Fischer Primary Care Provider Harjit Amaral Unavailable [phone] DO Nat Medina Primary Care Provider [phone] DO Troy Haile Emergency Provider Unavai MD Karl Persaud Admit Provider MD Karl Gant Attending Provider José Miguel Tobar Unavailable [facility] DO Allen Alfredo Attending Provider MD Ant Holloway Other Provider BECKA Gregorio Other Provider BECKA Busby-C Delmy Other Provider MD José Miguel Tobar Other Provider MD Yan Neves Other Provider Nat Medina DO Edklaudia Primary Care Provider Yong THACKER, Ramos Lieberman Unavailable [phone] David BEARD, Inna Corrigan Unavailable UnavailFIOR Martinez Attending Unavailable Nat Medina DO Primary Care Provider Nat Medina DO Primary Care Provider Nat Medina DO Primary Care Provider Ball DO, Nat E Primary Care Provider BHARGAVI, TRAY M Referring Unavailable BALL, NAT E Primary Care Unavailable Karina BEARD, Raffi Unavailable Unavailable Ramos Parekh MD Unavailable Ball DO, Nat E Primary Care Provider Ramos Parekh MD Unavailable Vandana Ann Unavailable Unavailable Carol, Dr. Nat Smith Referring Unavai lable UNKNOWN, PCP Primary Care Unavailable Yong, Dr. Ramos Manuel Attending Unava ilable UNKNOWN, PCP Primary Care Unavailable Yong, Dr. Ramos Manuel Attending Unava ilable Yong, Dr. Ramos Manuel Referring Unava ilable UNKNOWN, PCP Primary Care Unavailable WINTER, TRAY Attending Unavailable UNKNOWN, PCP Primary Care Unavailable WINTER, TRAY Attending Unavailable BHARGAVI, TRAY Referring Unavailable Ball, Nat Primary Care Unavailable Mapus, Tondra K Admitting Unavailable Mapus, Tondra K Attending Unavailable Carol, Nat Primary Care Unavailable Karl Gant Admitting Unavailable Allen Borges T Attending Unavailable Ant Holloway Consulting Unavailable Gregorio, Estrella Consulting Unavailable Delmy Busby Consulting Unavailable Ekaterina, José Miguel S Consulting Unavailable Yan Neves Consulting Unavailable RAMOS PAREKH Attending Unavailable BALL, NAT [...] Unavailable BALL, NAT E Primary Care Unavailable NAT MEDINA Primary Care Unavailable NAT MEDINA Primary Care Unavailable TRAY BURK Referring Unavailable NAT MEDINA Primary Care Unavailable Allergies Allergy Classification Reported Allergen(s) Allergy Type Date of Onset Reaction(s) Facility (20 sources) Sulfamethoxazole / Trimethoprim; Translations: [Bactrim] Drug Allergy 016 [facility] Work Phone: (3 sources) Sulfamethoxazole / Trimethoprim Drug Allergy Hives/Urticaria, Hives [facility] (20 sources) Morphine; Translations: [MORPHINE] Drug Allergy Other: See Comments, Hallucinations, Other [employer] Other Comment on above: Hallucintations (20 sources) tapentadol Drug Allergy Unknown [employer] Other (20 sources) Sulfamethoxazole; Translations: [SULFAMETHOXAZOLE] Drug Allergy 014 [facility] (1 source) Morphine Drug Allergy [facility] Repository (1 source) Sulfamethoxazole / Trimethoprim Drug Allergy 014 [facility] Repository (2 sources) Sulfamethoxazole Propensity to adverse reactions to drug Rash [facility] (1 source) SULFAMETHOXAZOLE W-TRIMETHOPRIM; Translations: [SULFAMETHOXAZOLE W-TRIMETHOPRIM] Propensity to adverse reactions to drug (disorder) [facility] Repository (12 sources) Morphine Sulfate (Concentrate) *ANALGESICS - OPIOI Propensity to adverse reactions Unknown [employer] Other (12 sources) Substance with sulfonamide structure and antibacterial mechanism of action (substance) Drug allergy 013 Unknown [employer] Other (6 sources) Ondansetron; Translations: [ondansetron] Drug Allergy Gastrointestinal Upset [facility] (6 sources) Trimethoprim; Translations: [trimethoprim] Drug Allergy Rash, Rash, hives [facility] (2 sources) Sulfamethoxazole / Trimethoprim; Translations: [SULFAMETHOXAZOLE- TRIMETHOPRIM] Drug Allergy 023 [facility] 3 Repository (3 sources) tapentadol; Translations: [tapentadol] Drug Allergy Unknown Reaction [facility] (1 source) Morphine Drug Allergy [facility] Repository (1 source) Sulfamethoxazole Drug Allergy [facility] Repository Medications Current Medications Medication Drug [...] Penicillin-class Antibacterial Start: 4 End: 4 amylase 025031 unt / lipase 18974 unt / protease 786109 unt delayed release oral capsule (20 sources) [...] ~10 mL of water. Start: 10-14-2023 pancrelipase, Thf-Mbpj-Jknr, (Creon) 12,000-38,000 -60,000 unit capsule Indications: H/O chronic pancreatitis Take 2 cap(s) 3x day with meals; take 1 cap(s) 3x day with snacks as needed 270 capsule 11 10/14/2023 Active Start: 10-14-2023 Start: 11-08-2021 take 1 capsule by mo [facility] three times daily pancrelipase, Xuq-Yycz-Mumk, (Creon) 12,000-38,000 -60,000 unit capsule Please take 1 capsule by mouth with each meal three times a day 0 11/08/2021 Active Start: 04-28-2020 End: 11-27-2023 take 2 capsules by mouth three times daily before mealtime ebhinx-ryrqdsvg-yyeuifo (CREON) 36,000-114,000- 180,000 unit delayed release capsule Take 2 capsules by mouth three times daily before meals. 0 06/14/2022 Active Start: 10-13-2019 End: 04-28-2020 take 89126-18471 capsules by mouth once Cblvxi-Ubajucnt-Zaqfahl (Creon) 12,000-38,000 -60,000 unit Capsule,Delayed Release(Dr/Ec) Discontinued 2 CAP PO 3x/Day with meals and bedtime 90 October 13, 2019 1:00am April 28, 2020 12:15pm Start: 12-29-2018 End: 09-18-2019 take 25345-228854 capsules by mouth three times daily Pgbaai-Gcilysqu-Nliqwhz (Zenpep) 40,000-126,000- 168,000 unit Capsule,Delayed Release(Dr/Ec) Discontinued 2 CAP PO Three times daily December 29, 2018 12:00am September 18, 2019 2:30am Creon [address] 0 UNIT 3 capsules Orally with snacks Active Comment on above: Take 1 capsule by mo [facility] three times daily before meals. Take 2 capsules by m [facility] three times daily before meals. atomoxetine 60 [...] Paiz Status: Discontinued Generic Substitution Allowed Creon 83072 UNIT (20 sources) Start: 02-06-2021 take 1 capsule by mouth three times daily at mealtime Creon 44535 UNIT 1 capsule Orally tid with meals January, Active Start: 02-06-2021 take 1 capsule by [facility] three times daily at mealtime Creon 33940 UNIT 1 capsule Orally tid with meals [...] 3 mg/a ctuation nasal spray Use 1 [place] in the nose as needed. 0 12/12/2021 [...] days Active Comment on above: Use 1 [place] in the n ose as needed. 50 [...] blood glucose reaches 100 mg/dL., Starting on [facility] 10/31/23 at 2002, For 1 dose [...] 1300 Quantity: 50 Refills: 0 Ordered: 22-Jan-2022 Cathy Donato Start: 22-Jan-2022 End: 15-Feb-2022 Generic Substitution [...] November 27, 2023 12:00am sodium zirconium cyclosilicate 96389 mg powder for oral suspension (1 source) [...] at mealtime [Order 1 Start] Name: pancrelipase (Pls-Esgk-Fjqi) (Creon) 36,000-114,000- 180,000 unit per capsule 2 [...] 1 End] [Order 2 Start] Name: pancrelipase (Ipu-Drbm-Lsek) (Creon) 36,000-114,000- 180,000 unit per capsule 1 [...] once daily. Take 1 capsule by mo [facility] every afternoon. cholecalciferol 0.025 mg oral capsule [...] take 1 capsule by mouth every mo [facility] cyanocobalamin, vitamin B-12, 3,000 mcg cap Take 1 capsule by mouth once every month. 0 Active Comment on above: Take 1 capsule by [facility] once every month. dextromethorphan hydrobromide 15 mg / guaiFENesin 400 mg / pseudoephedrine hydrochloride 60 mg oral tablet (20 sources) alpha-Adrenergic Agonist, Uncompetitive P-yegwbn-U-aspartate Receptor Antagonist, Sigma-1 Agonist Start: 01-14-20 take 4 tablets by mouth every twenty-four hours as needed Capmist DM 60-15-400 MG as needed Orally every 4-6 hours as needed, max 4 tablets in 24 hours for 5 days Dec, Not-Taking Start: 01-13-2022 End: 04-30-2022 ekipkztljgvmjdk-QK-beusAJWfm in 60-15-400 mg tab Take 1 tablet by mouth as needed. 0 01/13/2022 04/30/2022 Discontinued (Discontinued by Patient) Comment on above: Take 1 tablet by [facility] as needed. doxycycline monohydrate 100 mg oral capsule (20 sources) Tetracycline-class Drug Start: 05-14-20 take 1 capsule by mouth every twelve hours Doxycycline Monohydrate 100 MG 1 capsule Orally every 12 hrs for 7 days Apr, Not-Taking Comment on above: Take 1 capsule by [facility] q 12 HR. DULoxetine 60 mg delayed [...] 16, 2023 2:51am take 1 capsule by [facility] every twenty-four hours Cymbalta 20 MG 1 [...] acting SQ insulin. Protocol Document: <a href=[email or web address]> Other Initial Dose: [...] 25-Jun-2021 DO Start : 03-May-2021 Active levonorgestrel 0.101935 mg/hr intrauterine system (4 sources) Progestin, Progestin-containi [...] 01-Mar-2023 Active take 2 tablets by mo [facility] every twenty-four hours Mirtazapine 7.5 MG 2 [...] jovana every 6 hours as needed. sennosides, longterm 8.6 mg oral tablet (5 sources) Start: [...] Classification Problem Date Documented Da te Episodic/Chronic Acute bronchitis (12 sources) Acute bronchitis; Translations: [Acute bronchitis due to other specified organisms] Episodic Alcohol-related disorders (2 sources) Alcohol use, unspecified with intoxication, unspecified; Translations: [Alcohol use, unspecified with intoxication, unspecified ([facility] Onset: Episodic Allergic reactions (2 sources) Dermatitis, unspecified; [...] disorder; Translations: [Essential (primary) hypertension] 12-03-2023 Chronic Fluid and electrolyte disorders (15 sources) Metabolic acidosis; Translations: [Metabolic acidosis] Onset: 4 Resolved: 4 10-07-2019 Episodic Gastritis and duodenitis (20 sources) Gastritis; Translations: [...] Candidiasis of mouth; Translations: [Candidal stomatitis] Episodic Nausea and vomiting (20 sources) Nausea with vomiting, unspecified; Translations: [Nausea] Onset: 1 Resolved: 4 Episodic Nutritional deficiencies (20 sources) Vitamin D [...] disorders (3 sources) Other chronic pain; Translations: [Chronic abdominal pain] Onset: 3 Chronic Other nervous system [...] BLOCK; POST HOSPITAL DISCHARGE Unclassified (1 source) [facility] 11-01-2021 Comment on above: [facility] Unclassified (1 source) Acute pancreatitis without infection or necrosis 10-25-2021 Unclassified (1 source) Abnormal findings on diagnostic imaging of other abdominal regions, including retroperitoneum 10-25-2021 Unclassified (1 source) Crohn's disease without complication 10-25-2021 Unclassified (1 source) jail current use of insulin 10-26-2021 Unclassified (1 [...] wall pain; Translations: [Abdominal pain, epigastric] Onset: 10-01-2018 Resolved: 11-05-2023 10-25-2021 Episodic Administrative/social admission (2 sources) Dietary counseling and [...] to intrinsic factor deficiency] Onset: 12-11-2016 Episodic Headache; including migraine (12 sources) Headache; Translations: [Headache, unspecified] Onset: 02-12-2014 Episodic Other aftercare (2 sources) 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 Onset: 12-11-2021 Resolved: 05-08-2022 Episodic Other aftercare (1 source) Other roasterman (current) drug therapy; Translations: [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 If you have any questions please call Julieth back at [phone] Raffi Santiago RN 11/14/2023 4:21 PM Signed Call to insurancealexa with last PA was resubmitted plan to [...] mouth every 6 hours as needed. - jmuitf-eygqegfi-jrlrbvm (CREON) 36,000-114,000- 180,000 unit delayed release capsule [...] BAQSIMI 3 mg/actuation nasal spray Use 1 [place] in the nose as needed. - insulin [...] Encounter Status:Closed by NEVA BRYANT on 11/14/23 [facility] 11-13-2023 [facility] Telephone ([facility]) -------- RHONDACASTROJULIETH ([id number]) 1985 F Date Time Provider Department 11/13/23 RAMOS PAREKH [facility] During your visit today, we recorded the [...] (virtual). Asked to be called back at [phone]. Ramos Russell MD 11/13/2023 2:03 PM Signed [...] plan to start fentanyl patch. Pharmacy needs [facility]. PA started in separate encounter. Call to [...] last 3 days, could also cause overdose. 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 - gfrwme-rtvzgiec-cawrsec (CREON) 36,000-114,000- 180,000 unit delayed release capsule Take 2 capsules by mouth three times daily before m (more content not included)... [facility] ([facility]) -------- JULIETH SPENCER ([id number]) 1985 F Date Time Provider Department 11/11/23 RAMOS PAREKH [facility] During your visit today, we recorded the following information about you: Mary Patient User Experience DeveloperTorito 11/11/2023 2:15 PM Signed Patient needs 4 week in person appt at [facility] is possible. Virtual if not. 4 weeks [...] mouth every 6 hours as needed. - eoiqnu-mnwnhvnx-arfhkbr (CREON) 36,000-114,000- 180,000 unit delayed release capsule [...] BAQSIMI 3 mg/actuation nasal spray Use 1 [place] in the nose as needed. - insulin [...] Encounter Status:Closed by SHAYY STACY on 11/13/23 [facility] JULIETH SPENCER ([id number]) 1985 F Date Time Provider Department 11/07/23 RAMOS PAREKH [facility] During your visit today, we recorded the following information about you: Neva Bryant 11/07/2023 2:08 PM Signed Julieth is calling stating that she needs a prior authorization for her dilation. She uses [facility] . If you have any questions please call her back at [phone] Raffi Santiago, RN 11/07/2023 3:26 PM Signed [...] mouth every 6 hours as needed. - ghjlxv-fzcuzpih-hshwmcd (CREON) 36,000-114,000- 180,000 unit delayed release capsule [...] BAQSIMI 3 mg/actuation nasal spray Use 1 [place] in the nose as needed. - insulin [...] Encounter Status:Closed by RAFFI SANTIAGO on 11/07/23 [facility] 11-06-2023 CNP[facility] Telephone ([facility]) -------- JULIETH SPENCER ([id number]) 1985 F Date Time Provider Department 11/06/23 RAFFI SANTIAGO [facility] During your visit today, we recorded the following information about you: Raffi Santiago RN 11/08/2023 3:41 PM Addendum Prior Authorization Documentation Prior authorization requested for: MEDICATION dilaudid ER Submitted via Cover My Meds/[place] Julieth Spencer ([place]: [id number]) - [id number] Authorization approval #: medication denied. Nurse call to [facility] and submitted an appeal. Ref# appeal [id number] Should get response by Saturday. PA approved [...] mouth every 6 hours as needed. - enjkcj-qbmndowh-pwdvcws (CREON) 36,000-114,000- 180,000 unit delayed release capsule [...] BAQSIMI 3 mg/actuation nasal spray Use 1 [place] in the nose as needed. - insulin [...] Status:Closed by RAFFI SANTIAGO on 11/08/23 Normal [facility] Glucose Test strip manual (B ld) [Mass/Vol]on 11-06-2023 Glucose [Mass/Vol] 293 mg/dL High 74-99 [facility] Comment on above: Performed By: #### 2 341-6 ####GARRY Schmid ([id number])[facility] ([facility])[address] [place] [address] Glucose [Mass/Vol] 293 mg/dL High 74 - 99 mg/dL [facility] Interpretation and review of laboratory results Abnormal [facility] Glucose [Mass/Vol] 193 mg/dL High 74-99 [facility] Comment on above: Performed By: #### 2 341-6 ####GARRY Schmid ([id number])[facility] ([facility])[address] [place] [address] Glucose [Mass/Vol] 148 mg/dL High 74-99 [facility] Comment on above: Performed By: #### 2 341-6 ####GARRY Schmid ([id number])[facility] ([facility])[address] [place] [address] Glucose [Mass/Vol] 193 mg/dL High 74 - 99 mg/dL [facility] Interpretation and review of laboratory results Abnormal [facility] Glucose [Mass/Vol] 48 mg/dL Low 74-99 [facility] Comment on above: Performed By: #### 2 341-6 ####GARRY Schmid ([id number])[facility] ([facility])[id number] [place] [address] Glucose [Mass/Vol] 148 mg/dL High 74 - 99 mg/dL [facility] Interpretation and review of laboratory results Abnormal [facility] Glucose [Mass/Vol] 48 mg/dL Low 74 - 99 mg/dL [facility] Interpretation and review of laboratory results Abnormal [facility] Glucose [Mass/Vol] 321 mg/dL High 74-99 [facility] Comment on above: Result Comment: RN/David D NOTIFIED Performed By: #### 2 341-6 ####GARRY Schmid ([id number])[facility] ([facility])[id number] [place] [address] Glucose [Mass/Vol] 441 mg/dL High 74-99 [facility] Comment on above: Performed By: #### 2 341-6 ####GARRY Schmid ([id number])[facility] ([facility])[id number] [place] [address] Glucose [Mass/Vol] 321 mg/dL High 74 - 99 mg/dL [facility] Interpretation and review of laboratory results Abnormal [facility] Bacteria identified Cx Nom ( Bld)on 11-05-2023 Interpretation and review of laboratory results Normal [facility] CBC panel Auto (Bld)on 11-05 Erythrocyte distribution width (RBC) [Ratio] 15.6 % High 11.5-14.5 [facility] Comment on above: Performed By: #### 5 8410-2 ####GARRY Schmid ([id number])[facility] ([facility])[address] [place] [address] Hematocrit (Bld) [Volume fraction] 30.7 % Low 36.0-46.0 [facility] Comment on above: Performed By: #### 5 8410-2 ####GARRY Schmid ([id number])[facility] ([facility])[address] [place] [address] Hemoglobin (Bld) [Mass/Vol] 9.6 g/dL Low 12.0-16.0 [facility] Comment on above: Performed By: #### 5 8410-2 ####GARRY Schmid ([id number])[facility] ([facility])[id number] [place] [address] MCH (RBC) [Entitic mass] 29.1 pg Normal 26.0-34.0 [facility] Comment on above: Performed By: #### 5 8410-2 ####GARRY Schmid ([id number])[facility] ([facility])[id number] [place] [address] MCHC (RBC) [Mass/Vol] 31.3 g/dL Low 32.0-36.0 [facility] Comment on above: Performed By: #### 5 8410-2 ####GARRY Schmid ([id number])[facility] ([facility])[address] [place] [address] MCV (RBC) [Entitic vol] 93 fL Normal 80-100 [facility] Comment on above: Performed By: #### 5 8410-2 ####GARRY Schmid ([id number])[facility] ([facility])[id number] [place] [address] 89[address] Nucleated RBC/100 WBC (Bld) [Ratio] 0.0 /100 WBCs Normal 0.0-0.0 [facility] Comment on above: Performed By: #### 5 8410-2 ####GARRY Schmid ([id number])[facility] ([facility])[id number] [place] [address] Platelets (Bld) [#/Vol] 1057 x10*3/uL High 150-450 [facility] Comment on above: Performed By: #### 5 8410-2 ####GARRY Schmid ([id number])[facility] ([facility])[id number] [place] [address] RBC (Bld) [#/Vol] 3.30 x10*6/uL Low 4.00-5.20 [facility] Comment on above: Performed By: #### 5 8410-2 ####GARRY Schmid ([id number])[facility] ([facility])[id number] [place] [address] WBC (Bld) [#/Vol] 9.7 x10*3/uL Normal 4.4-11.3 [facility] Comment on above: Performed By: #### 5 8410-2 ####GARRY Schmid ([id number])[facility] ([facility])[address] [place] [address] Erythrocyte distribution width (RBC) [Ratio] 15.6 % High 11.5 - 14.5 % [facility] Hematocrit (Bld) [Volume fraction] 30.7 % Low 36.0 - 46.0 % [facility] Hemoglobin (Bld) [Mass/Vol] 9.6 g/dL Low 12.0 - 16.0 g/dL [facility] Interpretation and review of laboratory results Abnormal [facility] MCH (RBC) [Entitic mass] 29.1 pg 26.0 - 34.0 pg [facility] MCHC (RBC) [Mass/Vol] 31.3 g/dL Low 32.0 - 36.0 g/dL [facility] MCV (RBC) [Entitic vol] 93 fL 80 - 100 fL [facility] Nucleated RBC/100 WBC (Bld) [Ratio] 0.0 % [facility] Platelets (Bld) [#/Vol] 1057 10*3/uL High [facility] RBC (Bld) [#/Vol] 3.30 10*6/uL Low [facility] WBC (Bld) [#/Vol] 9.7 10*3/uL [facility] Comprehensive metabolic 2000 panelon 11-05-2023 Albumin BCP dye [Mass/Vol] 2.9 g/dL Low 3.4-5.0 [facility] Comment on above: Performed By: #### 2 4323-8 ####GARRY Schmid ([id number])[facility] ([facility])[address] [place] [address] ALP [Catalytic activity/Vol] 112 U/L High 33-110 [facility] Comment on above: Performed By: #### 2 4323-8 ####GARRY Schmid ([id number])[facility] ([facility])[address] [place] [address] ALT With P-5'-P [Catalytic activity/Vol] 12 U/L Normal 7-45 [facility] Comment on above: Result Comment: Gianna ents treated with Sulfasalazine may generate falsely decreased results for ALT. Performed By: #### 2 4323-8 ####GARRY Schmid ([id number])[facility] ([facility])[address] [place] [address] Anion gap [Moles/Vol] 14 mmol/L Normal 10-20 [facility] Comment on above: Performed By: #### 2 8463-8 ####GARRY Schmid ([id number])[facility] ([facility])[address] [place] [address] AST With P-5'-P [Catalytic activity/Vol] 17 U/L Normal 9-39 [facility] Comment on above: Performed By: #### 2 4323-8 ####GARRY Schmid ([id number])[facility] ([facility])[address] [place] [address] Bilirubin [Mass/Vol] 0.2 mg/dL Normal 0.0-1.2 [facility] Comment on above: Performed By: #### 2 4323-8 ####GARRY Schmid ([id number])[facility] ([facility])[address] [place] [address] Calcium [Mass/Vol] 8.8 mg/dL Normal 8.6-10.6 [facility] Comment on above: Performed By: #### 2 4323-8 ####GARRY Schmid ([id number])[facility] ([facility])[address] [place] [address] Chloride [Moles/Vol] 96 mmol/L Low 98-107 [facility] Comment on above: Performed By: #### 2 4323-8 ####GARRY Schmid ([id number])[facility] ([facility])[address] [place] [address] CO2 [Moles/Vol] 27 mmol/L Normal 21-32 [facility] Comment on above: Performed By: #### 2 4323-8 ####GARRY Schmid ([id number])[facility] ([facility])[address] [place] [address] Creatinine [Mass/Vol] 0.67 mg/dL Normal 0.50-1.05 [facility] Comment on above: Performed By: #### 2 4323-8 ####GARRY Schmid ([id number])[facility] ([facility])[address] [place] [address] GFR/1.73 sq M.predicted MDRD (S/P/Bld) [Vol rate/Area] mL/min/{1.73_m2} Normal >60 [facility] Comment on above: Result Comment: Calc ulations of estimated GFR are performed using the 2020 CKD-EPI Study Refit equation without the race variable for the IDMS-Traceable creatinine methods.https://jasn.asnjournals.org/content/early/ N.6959757217 Performed By: #### 2 4323-8 ####GARRY Schmid ([id number])[facility] ([facility])[address] [place] [address] Glucose [Mass/Vol] 247 mg/dL High 74-99 [facility] Comment on above: Performed By: #### 2 4323-8 ####GARRY PEREZ L ([id number])[facility] ([facility])[address] [place] [address] Potassium [Moles/Vol] 5.4 mmol/L High 3.5-5.3 [facility] Comment on above: Performed By: #### 2 4323-8 ####GARRY NGMOTZER L ([id number])[facility] ([facility])[address] [place] [address] Protein [Mass/Vol] 6.3 g/dL Low 6.4-8.2 [facility] Comment on above: Performed By: #### 2 4323-8 ####GARRY NGMOTZER L ([id number])[facility] ([facility])[address] [place] [address] Sodium [Moles/Vol] 132 mmol/L Low 136-145 [facility] Comment on above: Performed By: #### 2 4323-8 ####GARRY NGMOTZER L ([id number])[facility] ([facility])[address] [place] [address] Urea nitrogen [Mass/Vol] 7 mg/dL Normal 6-23 [facility] Comment on above: Performed By: #### 2 4323-8 ####GARRY Schmid ([id number])[facility] ([facility])[address] [place] [address] Albumin BCP dye [Mass/Vol] 2.9 g/dL Low 3.4 - 5.0 g/dL [facility] ALP [Catalytic activity/Vol] 112 U/L High 33 - 110 U/L [facility] ALT With P-5'-P [Catalytic activity/Vol] 12 U/L 7 - 45 U/L [facility] Anion gap [Moles/Vol] 14 mmol/L 10 - 2 0 mmol/L [facility] AST With P-5'-P [Catalytic activity/Vol] 17 U/L 9 - 39 U/L [facility] Bilirubin [Mass/Vol] 0.2 mg/dL 0.0 - 1 .2 mg/dL [facility] Calcium [Mass/Vol] 8.8 mg/dL 8.6 - 10. 6 mg/dL [facility] Chloride [Moles/Vol] 96 mmol/L Low 98 - 10 7 mmol/L [facility] CO2 [Moles/Vol] 27 mmol/L 21 - 32 mmol/L [facility] Creatinine [Mass/Vol] 0.67 mg/dL 0.50 - 1.05 mg/dL [facility] eGFR - PINF [facility] Glucose [Mass/Vol] 247 mg/dL High 74 - 99 mg/dL [facility] Interpretation and review of laboratory results Abnormal [facility] Potassium [Moles/Vol] 5.4 mmol/L High 3.5 - 5.3 mmol/L [facility] Protein [Mass/Vol] 6.3 g/dL Low 6.4 - 8.2 g/dL [facility] Sodium [Moles/Vol] 132 mmol/L Low 136 - 145 mmol/L [facility] Urea nitrogen [Mass/Vol] 7 mg/dL 6 - 23 mg/dL [facility] Glucose Test strip manual (B ld) [Mass/Vol]on 11-05-2023 Glucose [Mass/Vol] 441 mg/dL High 74 - 99 mg/dL [facility] Interpretation and review of laboratory results Abnormal [facility] Glucose [Mass/Vol] 140 mg/dL High 74-99 [facility] Comment on above: Performed By: #### 2 341-6 ####GARRY Schmid ([id number])[facility] ([facility])[address] [place] [address] Glucose [Mass/Vol] 140 mg/dL High 74 - 99 mg/dL [facility] Interpretation and review of laboratory results Abnormal [facility] Glucose [Mass/Vol] 112 mg/dL High 74-99 [facility] Comment on above: Performed By: #### 2 341-6 ####GARRY Schmid ([id number])[facility] ([facility])[address] [place] [address] Glucose [Mass/Vol] 112 mg/dL High 74 - 99 mg/dL [facility] Interpretation and review of laboratory results Abnormal [facility] Glucose [Mass/Vol] 238 mg/dL High 74-99 [facility] Comment on above: Performed By: #### 2 341-6 ####GARRY Schmid ([id number])[facility] ([facility])[address] [place] [address] Glucose [Mass/Vol] 238 mg/dL High 74 - 99 mg/dL [facility] Interpretation and review of laboratory results Abnormal [facility] Glucose [Mass/Vol] 167 mg/dL High 74-99 [facility] Comment on above: Performed By: #### 2 341-6 ####GARRY Schmid ([id number])[facility] ([facility])[address] [place] [address] Glucose [Mass/Vol] 167 mg/dL High 74 - 99 mg/dL [facility] Interpretation and review of laboratory results Abnormal [facility] Glucose [Mass/Vol] 235 mg/dL High 74-99 [facility] Comment on above: Performed By: #### 2 341-6 ####GARRY Schmid ([id number])[facility] ([facility])[address] [place] [address] Glucose [Mass/Vol] 235 mg/dL High 74 - 99 mg/dL [facility] Interpretation and review of laboratory results Abnormal [facility] Glucose [Mass/Vol] 196 mg/dL High 74-99 [facility] Comment on above: Performed By: #### 2 341-6 ####GARRY Schmid ([id number])[facility] ([facility])[address] [place] [address] Glucose [Mass/Vol] 257 mg/dL High 74-99 [facility] Comment on above: Performed By: #### 2 341-6 ####GARRY Schmid ([id number])[facility] ([facility])[address] [place] [address] Glucose [Mass/Vol] 196 mg/dL High 74 - 99 mg/dL [facility] Interpretation and review of laboratory results Abnormal [facility] Laboratory - Microbiology an d Antimicrobial susceptibilityon 11-05-2023 Bacteria identified Cx Nom (Bld) No growth at 4 days - FINAL REPORT [facility] Magnesiumon 11-05-2023 Magnesium [Mass/Vol] 2.12 mg/dL Normal 1.60-2.40 [facility] Comment on above: Performed By: #### 1 9123-9 ####GARRY Schmid ([id number])[facility] ([facility])[address] [place] [address] Magnesium [Mass/Vol] 2.12 mg/dL 1.60 - 2.40 mg/dL [facility] Magnesium [Mass/Vol]on 11-05 Interpretation and review of laboratory results Normal [facility] No Panel Informationon 11-05 [facility] CBC panel Auto (Bld)on 11-04 Erythrocyte distribution width (RBC) [Ratio] 15.1 % High 11.5-14.5 [facility] Comment on above: Performed By: #### 5 8410-2 ####GARRY Schmid ([id number])[facility] ([facility])[address] [place] [address] Hematocrit (Bld) [Volume fraction] 26.7 % Low 36.0-46.0 [facility] Comment on above: Performed By: #### 5 8410-2 ####GARRY Schmid ([id number])[facility] ([facility])[address] [place] [address] Hemoglobin (Bld) [Mass/Vol] 8.9 g/dL Low 12.0-16.0 [facility] Comment on above: Performed By: #### 5 8410-2 ####GARRY Schmid ([id number])[facility] ([facility])[address] [place] [address] MCH (RBC) [Entitic mass] 29.7 pg Normal 26.0-34.0 [facility] Comment on above: Performed By: #### 5 8410-2 ####GARRY Schmid ([id number])[facility] ([facility])[address] [place] [address] MCHC (RBC) [Mass/Vol] 33.3 g/dL Normal 32.0-36.0 [facility] Comment on above: Performed By: #### 5 8410-2 ####GARRY Schmid ([id number])[facility] ([facility])[address] [place] [address] MCV (RBC) [Entitic vol] 89 fL Normal 80-100 [facility] Comment on above: Performed By: #### 5 8410-2 ####GARRY Schmid ([id number])[facility] ([facility])[address] [place] [address] Nucleated RBC/100 WBC (Bld) [Ratio] 0.0 /100 WBCs Normal 0.0-0.0 [facility] Comment on above: Performed By: #### 5 8410-2 ####GARRY Schmid ([id number])[facility] ([facility])[address] [place] [address] Platelets (Bld) [#/Vol] 1017 x10*3/uL High 150-450 [facility] Comment on above: Performed By: #### 5 8410-2 ####GARRY Schmid ([id number])[facility] ([facility])[address] [place] [address] RBC (Bld) [#/Vol] 3.00 x10*6/uL Low 4.00-5.20 [facility] Comment on above: Performed By: #### 5 8410-2 ####GARRY Schmid ([id number])[facility] ([facility])[address] [place] [address] WBC (Bld) [#/Vol] 8.5 x10*3/uL Normal 4.4-11.3 [facility] Comment on above: Performed By: #### 5 8410-2 ####GARRY Schmid ([id number])[facility] ([facility])[address] [place] [address] Erythrocyte distribution width (RBC) [Ratio] 15.1 % High 11.5 - 14.5 % [facility] Hematocrit (Bld) [Volume fraction] 26.7 % Low 36.0 - 46.0 % [facility] Hemoglobin (Bld) [Mass/Vol] 8.9 g/dL Low 12.0 - 16.0 g/dL [facility] Interpretation and review of laboratory results Abnormal [facility] MCH (RBC) [Entitic mass] 29.7 pg 26.0 - 34.0 pg [facility] MCHC (RBC) [Mass/Vol] 33.3 g/dL 32.0 - 36.0 g/dL [facility] MCV (RBC) [Entitic vol] 89 fL 80 - 100 fL [facility] Nucleated RBC/100 WBC (Bld) [Ratio] 0.0 % [facility] Platelets (Bld) [#/Vol] 1017 10*3/uL High [facility] RBC (Bld) [#/Vol] 3.00 10*6/uL Low [facility] WBC (Bld) [#/Vol] 8.5 10*3/uL [facility] Glucose Test strip manual (B ld) [Mass/Vol]on 11-04-2023 Glucose [Mass/Vol] 257 mg/dL High 74 - 99 mg/dL [facility] Interpretation and review of laboratory results Abnormal [facility] Glucose [Mass/Vol] 346 mg/dL High 74-99 [facility] Comment on above: Performed By: #### 2 341-6 ####GARRY Schmid ([id number])[facility] ([facility])[address] [place] [address] Glucose [Mass/Vol] 346 mg/dL High 74 - 99 mg/dL [facility] Interpretation and review of laboratory results Abnormal [facility] Glucose [Mass/Vol] 151 mg/dL High 74-99 [facility] Comment on above: Performed By: #### 2 341-6 ####GARRY Schmid ([id number])[facility] ([facility])[address] [place] [address] Glucose [Mass/Vol] 151 mg/dL High 74 - 99 mg/dL [facility] Interpretation and review of laboratory results Abnormal [facility] Glucose [Mass/Vol] 256 mg/dL High 74-99 [facility] Comment on above: Performed By: #### 2 341-6 ####GARRY Schmid ([id number])[facility] ([facility])[address] [place] [address] Glucose [Mass/Vol] 256 mg/dL High 74 - 99 mg/dL [facility] Interpretation and review of laboratory results Abnormal [facility] Glucose [Mass/Vol] 145 mg/dL High 74-99 [facility] Comment on above: Performed By: #### 2 341-6 ####GARRY Schmid ([id number])[facility] ([facility])[address] [place] [address] Glucose [Mass/Vol] 145 mg/dL High 74 - 99 mg/dL [facility] Interpretation and review of laboratory results Abnormal [facility] Glucose [Mass/Vol] 256 mg/dL High 74-99 [facility] Comment on above: Performed By: #### 2 341-6 ####GARRY Schmid ([id number])[facility] ([facility])[address] [place] [address] Glucose [Mass/Vol] 256 mg/dL High 74 - 99 mg/dL [facility] Interpretation and review of laboratory results Abnormal [facility] Glucose [Mass/Vol] 316 mg/dL High 74-99 [facility] Comment on above: Performed By: #### 2 341-6 ####GARRY Schmid ([id number])[facility] ([facility])[address] [place] [address] Glucose [Mass/Vol] 316 mg/dL High 74 - 99 mg/dL [facility] Interpretation and review of laboratory results Abnormal [facility] Glucose [Mass/Vol] 201 mg/dL High 74-99 [facility] Comment on above: Performed By: #### 2 341-6 ####GARRY Schmid ([id number])[facility] ([facility])[address] [place] [address] Magnesiumon 11-04-2023 Magnesium [Mass/Vol] 2.27 mg/dL Normal 1.60-2.40 [facility] Comment on above: Performed By: #### 1 9123-9 ####GARRY Schmid ([id number])[facility] ([facility])[address] [place] [address] Magnesium [Mass/Vol] 2.27 mg/dL 1.60 - 2.40 mg/dL [facility] Magnesium [Mass/Vol]on 11-04 Interpretation and review of laboratory results Normal [facility] No Panel Informationon 11-04 [facility] Renal function 2000 panelon 11-04-2023 Albumin BCP dye [Mass/Vol] 2.7 g/dL Low 3.4-5.0 [facility] Comment on above: Performed By: #### 2 4362-6 ####GARRY Schmid ([id number])[facility] ([facility])[address] [place] [address] Anion gap [Moles/Vol] 12 mmol/L Normal 10-20 [facility] Comment on above: Performed By: #### 2 4362-6 ####GARRY Schmid ([id number])[facility] ([facility])[address] [place] [address] Calcium [Mass/Vol] 8.7 mg/dL Normal 8.6-10.6 [facility] Comment on above: Performed By: #### 2 4362-6 ####GARRY Schmid ([id number])[facility] ([facility])[address] [place] [address] Chloride [Moles/Vol] 99 mmol/L Normal 98-107 [facility] Comment on above: Performed By: #### 2 4362-6 ####GARRY Schmid ([id number])[facility] ([facility])[address] [place] [address] CO2 [Moles/Vol] 30 mmol/L Normal 21-32 [facility] Comment on above: Performed By: #### 2 4362-6 ####GARRY Schmid ([id number])[facility] ([facility])[address] [place] [address] Creatinine [Mass/Vol] 0.65 mg/dL Normal 0.50-1.05 [facility] Comment on above: Performed By: #### 2 4362-6 ####GARRY Schmid ([id number])[facility] ([facility])[address] [place] [address] GFR/1.73 sq M.predicted MDRD (S/P/Bld) [Vol rate/Area] mL/min/{1.73_m2} Normal >60 [facility] Comment on above: Result Comment: Calc ulations of estimated GFR are performed using the 2020 CKD-EPI Study Refit equation without the race variable for the IDMS-Traceable creatinine methods.https://jasn.asnjournals.org/content// N.1660332745 Performed By: #### 2 4362-6 ####GARRY Schmid ([id number])[facility] ([facility])[address] [place] [address] Glucose [Mass/Vol] 168 mg/dL High 74-99 [facility] Comment on above: Performed By: #### 2 4362-6 ####GARRY Schmid ([id number])[facility] ([facility])[address] [place] [address] Phosphate [Mass/Vol] 3.7 mg/dL Normal 2.5-4.9 [facility] Comment on above: Result Comment: The performance characteristics of phosphorus testing in heparinized plasma have been validated by the individual laboratory site where testing is performed. Testing on heparinized plasma is not approved by the FDA; however, such approval is not necessary. Performed By: #### 2 4362-6 ####GARRY Schmid ([id number])[facility] ([facility])[address] [place] [address] Potassium [Moles/Vol] 5.2 mmol/L Normal 3.5-5.3 [facility] Comment on above: Performed By: #### 2 4362-6 ####GARRY Schmid ([id number])[facility] ([facility])[address] [place] [address] Sodium [Moles/Vol] 136 mmol/L Normal 136-145 [facility] Comment on above: Performed By: #### 2 4362-6 ####GARRY Schmid ([id number])[facility] ([facility])[address] [place] [address] Urea nitrogen [Mass/Vol] 6 mg/dL Normal 6-23 [facility] Comment on above: Performed By: #### 2 4362-6 ####GARRY Schmid ([id number])[facility] ([facility])[address] [place] [address] Albumin BCP dye [Mass/Vol] 2.7 g/dL Low 3.4 - 5.0 g/dL [facility] Anion gap [Moles/Vol] 12 mmol/L 10 - 2 0 mmol/L [facility] Calcium [Mass/Vol] 8.7 mg/dL 8.6 - 10. 6 mg/dL [facility] Chloride [Moles/Vol] 99 mmol/L 98 - 10 7 mmol/L [facility] CO2 [Moles/Vol] 30 mmol/L 21 - 32 mmol/L [facility] Creatinine [Mass/Vol] 0.65 mg/dL 0.50 - 1.05 mg/dL [facility] eGFR - PINF [facility] Glucose [Mass/Vol] 168 mg/dL High 74 - 99 mg/dL [facility] Interpretation and review of laboratory results Abnormal [facility] Phosphate [Mass/Vol] 3.7 mg/dL 2.5 - 4 .9 mg/dL [facility] Potassium [Moles/Vol] 5.2 mmol/L 3.5 - 5.3 mmol/L [facility] Sodium [Moles/Vol] 136 mmol/L 136 - 145 mmol/L [facility] Urea nitrogen [Mass/Vol] 6 mg/dL 6 - 23 mg/dL [facility] C. difficile toxin A+B tcdA+ tcdB genes DESIRE+probe Ql (Stl)Ordered By: Eileen Burt on 11-03-2023 Interpretation and review of laboratory results Normal [facility] C. difficile, PCROrdered By: Eileen Burt on 11-03-2023 C. difficile toxin A+B tcdA+tcdB genes DESIRE+probe Ql (Stl) Not detected Not Detected [facility] CBC panel Auto (Bld)on 11-03 Erythrocyte distribution width (RBC) [Ratio] 14.6 % High 11.5-14.5 [facility] Comment on above: Performed By: #### 5 8410-2 ####GARRY Schmid ([id number])[facility] ([facility])[address] [place] [address] Hematocrit (Bld) [Volume fraction] 23.8 % Low 36.0-46.0 [facility] Comment on above: Performed By: #### 5 8410-2 ####GARRY Schmid ([id number])[facility] ([facility])[address] [place] [address] Hemoglobin (Bld) [Mass/Vol] 8.0 g/dL Low 12.0-16.0 [facility] Comment on above: Performed By: #### 5 8410-2 ####GARRY Schmid ([id number])[facility] ([facility])[address] [place] [address] MCH (RBC) [Entitic mass] 29.1 pg Normal 26.0-34.0 [facility] Comment on above: Performed By: #### 5 8410-2 ####GARRY Schmid ([id number])[facility] ([facility])[address] [place] [address] MCHC (RBC) [Mass/Vol] 33.6 g/dL Normal 32.0-36.0 [facility] Comment on above: Performed By: #### 5 8410-2 ####GARRY Schmid ([id number])[facility] ([facility])[address] [place] [address] MCV (RBC) [Entitic vol] 87 fL Normal 80-100 [facility] Comment on above: Performed By: #### 5 8410-2 ####GARRY Schmid ([id number])[facility] ([facility])[address] [place] [address] Nucleated RBC/100 WBC (Bld) [Ratio] 0.0 /100 WBCs Normal 0.0-0.0 [facility] Comment on above: Performed By: #### 5 8410-2 ####GARRY Schmid ([id number])[facility] ([facility])[address] [place] [address] Platelets (Bld) [#/Vol] 1038 x10*3/uL High 150-450 [facility] Comment on above: Performed By: #### 5 8410-2 ####GARRY Schmid ([id number])[facility] ([facility])[address] [place] [address] RBC (Bld) [#/Vol] 2.75 x10*6/uL Low 4.00-5.20 [facility] Comment on above: Performed By: #### 5 8410-2 ####GARRY Schmid ([id number])[facility] ([facility])[address] [place] [address] WBC (Bld) [#/Vol] 7.3 x10*3/uL Normal 4.4-11.3 [facility] Comment on above: Performed By: #### 5 8410-2 ####GARRY Schmid ([id number])[facility] ([facility])[address] [place] [address] Erythrocyte distribution width (RBC) [Ratio] 14.6 % High 11.5 - 14.5 % [facility] Hematocrit (Bld) [Volume fraction] 23.8 % Low 36.0 - 46.0 % [facility] Hemoglobin (Bld) [Mass/Vol] 8.0 g/dL Low 12.0 - 16.0 g/dL [facility] Interpretation and review of laboratory results Abnormal [facility] MCH (RBC) [Entitic mass] 29.1 pg 26.0 - 34.0 pg [facility] MCHC (RBC) [Mass/Vol] 33.6 g/dL 32.0 - 36.0 g/dL [facility] MCV (RBC) [Entitic vol] 87 fL 80 - 100 fL [facility] Nucleated RBC/100 WBC (Bld) [Ratio] 0.0 % [facility] Platelets (Bld) [#/Vol] 1038 10*3/uL High [facility] RBC (Bld) [#/Vol] 2.75 10*6/uL Low [facility] WBC (Bld) [#/Vol] 7.3 10*3/uL [facility] Clostridioides difficile tox in A+B tcdA+tcdB geneson 11-03-2023 C. difficile toxin A+B tcdA+tcdB genes DESIRE+probe Ql (Stl) Clostridioides difficile toxin A+B tcdA+tcdB genes Not Detected Normal Not Detected [facility] Comment on above: Order Comment: This test [...] Performed By: #### 8 0685-1 ####GARRY Schmid ([id number])[facility] ([facility])[address] [place] [address] Gastrointestinal pathogens i dentifiedon 11-03-2023 Gastrointestinal pathogens identified DESIRE+probe Nom (Stl) Normal Not Detected [facility] Comment on above: Performed By: #### 7 9390-1 ####GARRY Schmid ([id number])[facility] ([facility])[address] [place] [address] Gastrointestinal pathogens i dentified DESIRE+probe Nom (Stl)on 11-03-2023 Campylobacter Group Not detected Not Detected [facility] Work Phone: E. coli stx1 gene DESIRE+probe Ql (Stl) Not detected Not Detected [facility] Work Phone: E. coli stx2 gene DESIRE+probe Ql (Stl) Not detected Not Detected [facility] Work Phone: Interpretation and review of laboratory results Normal [facility] Work Phone: Norovirus genogroup I and II RNA DESIRE+probe Nom (Stl) Not detected Not Detected [facility] Work Phone: Rotavirus RNA DESIRE+probe Nom (Stl) Not detected Not Detected [facility] Work Phone: Salmonella species Not detected Not Detected [facility]: Shigella sp DNA DESIRE+probe Ql (Unsp spec) Not detected Not Detected [facility] Work Phone: Vibrio Group Not detected Not Detected [facility] Work Phone: Y. enterocolitica DNA DESIRE+probe Ql (Stl) Not detected Not Detected [facility] Work Phone: [facility] Work Phone: Glucose Test strip manual (B ld) [Mass/Vol]on 11-03-2023 Glucose [Mass/Vol] 201 mg/dL High 74 - 99 mg/dL [facility] Interpretation and review of laboratory results Abnormal [facility] Glucose [Mass/Vol] 205 mg/dL High 74-99 [facility] Comment on above: Performed By: #### 2 341-6 ####GARRY Schmid ([id number])[facility] ([facility])[address] [place] [address] Glucose [Mass/Vol] 205 mg/dL High 74 - 99 mg/dL [facility] Interpretation and review of laboratory results Abnormal [facility] Glucose [Mass/Vol] 253 mg/dL High 74-99 [facility] Comment on above: Performed By: #### 2 341-6 ####GARRY Schmid ([id number])[facility] ([facility])[address] [place] [address] Glucose [Mass/Vol] 253 mg/dL High 74 - 99 mg/dL [facility] Interpretation and review of laboratory results Abnormal [facility] Glucose [Mass/Vol] 161 mg/dL High 74-99 [facility] Comment on above: Performed By: #### 2 341-6 ####GARRY Schmid ([id number])[facility] ([facility])[address] [place] [address] Glucose [Mass/Vol] 66 mg/dL Low 74-99 [facility] Comment on above: Performed By: #### 2 341-6 ####GARRY Schmid ([id number])[facility] ([facility])[address] [place] [address] Glucose [Mass/Vol] 161 mg/dL High 74 - 99 mg/dL [facility] Interpretation and review of laboratory results Abnormal [facility] Glucose [Mass/Vol] 66 mg/dL Low 74 - 99 mg/dL [facility] Interpretation and review of laboratory results Abnormal [facility] Glucose [Mass/Vol] 220 mg/dL High 74-99 [facility] Comment on above: Performed By: #### 2 341-6 ####GARRY Schmid ([id number])[facility] ([facility])[address] [place] [address] Glucose [Mass/Vol] 220 mg/dL High 74 - 99 mg/dL [facility] Interpretation and review of laboratory results Abnormal [facility] Glucose [Mass/Vol] 111 mg/dL High 74-99 [facility] Comment on above: Performed By: #### 2 341-6 ####GARRY Schmid ([id number])[facility] ([facility])[address] [place] [address] Glucose [Mass/Vol] 111 mg/dL High 74 - 99 mg/dL [facility] Interpretation and review of laboratory results Abnormal [facility] Glucose [Mass/Vol] 250 mg/dL High 74-99 [facility] Comment on above: Performed By: #### 2 341-6 ####GARRY Schmid ([id number])[facility] ([facility])[address] [place] [address] Glucose [Mass/Vol] 250 mg/dL High 74 - 99 mg/dL [facility] Interpretation and review of laboratory results Abnormal [facility] Magnesiumon 11-03-2023 Magnesium [Mass/Vol] 2.14 mg/dL Normal 1.60-2.40 [facility] Comment on above: Performed By: #### 1 9123-9 ####GARRY Schmid ([id number])[facility] ([facility])[address] [place] [address] Magnesium [Mass/Vol] 2.14 mg/dL 1.60 - 2.40 mg/dL [facility] Magnesium [Mass/Vol]on 11-03 Interpretation and review of laboratory results Normal [facility] No Panel Informationon 11-03 [facility] Renal function 2000 panelon 11-03-2023 Albumin BCP dye [Mass/Vol] 2.4 g/dL Low 3.4-5.0 [facility] Comment on above: Performed By: #### 2 4362-6 ####GARRY Schmid ([id number])[facility] ([facility])[address] [place] [address] Anion gap [Moles/Vol] 12 mmol/L Normal 10-20 [facility] Comment on above: Performed By: #### 2 4362-6 ####GARRY Schmdi ([id number])[facility] ([facility])[address] [place] [address] Calcium [Mass/Vol] 8.2 mg/dL Low 8.6-10.6 [facility] Comment on above: Performed By: #### 2 4362-6 ####GARRY Schmid ([id number])[facility] ([facility])[address] [place] [address] Chloride [Moles/Vol] 100 mmol/L Normal 98-107 [facility] Comment on above: Performed By: #### 2 4362-6 ####GARRY Schmid ([id number])[facility] ([facility])[address] [place] [address] CO2 [Moles/Vol] 32 mmol/L Normal 21-32 [facility] Comment on above: Performed By: #### 2 4362-6 ####GARRY Schmid ([id number])[facility] ([facility])[address] [place] [address] Creatinine [Mass/Vol] 0.62 mg/dL Normal 0.50-1.05 [facility] Comment on above: Performed By: #### 2 4362-6 ####GARRY Schmid ([id number])[facility] ([facility])[address] [place] [address] GFR/1.73 sq M.predicted MDRD (S/P/Bld) [Vol rate/Area] mL/min/{1.73_m2} Normal >60 [facility] Comment on above: Result Comment: Calc ulations of estimated GFR are performed using the 2020 CKD-EPI Study Refit equation without the race variable for the IDMS-Traceable creatinine methods.https://jasn.asnjournals.org/content/early// N.8737012154 Performed By: #### 2 4362-6 ####GARRY Schmid ([id number])[facility] ([facility])[address] [place] [address] Glucose [Mass/Vol] 126 mg/dL High 74-99 [facility] Comment on above: Performed By: #### 2 4362-6 ####GARRY Schmid ([id number])[facility] ([facility])[address] [place] [address] Phosphate [Mass/Vol] 3.7 mg/dL Normal 2.5-4.9 [facility] Comment on above: Result Comment: The performance characteristics of phosphorus testing in heparinized plasma have been validated by the individual laboratory site where testing is performed. Testing on heparinized plasma is not approved by the FDA; however, such approval is not necessary. Performed By: #### 2 4362-6 ####GARRY Schmid ([id number])[facility] ([facility])[address] [place] [address] Potassium [Moles/Vol] 4.5 mmol/L Normal 3.5-5.3 [facility] Comment on above: Performed By: #### 2 4362-6 ####GARRY Schmid ([id number])[facility] ([facility])[address] [place] [address] Sodium [Moles/Vol] 139 mmol/L Normal 136-145 [facility] Comment on above: Performed By: #### 2 4362-6 ####GARRY Schmid ([id number])[facility] ([facility])[address] [place] [address] Urea nitrogen [Mass/Vol] 4 mg/dL Low 6-23 [facility] Comment on above: Performed By: #### 2 4362-6 ####GARRY Schmid ([id number])[facility] ([facility])[address] [place] [address] Albumin BCP dye [Mass/Vol] 2.4 g/dL Low 3.4 - 5.0 g/dL [facility] Anion gap [Moles/Vol] 12 mmol/L 10 - 2 0 mmol/L [facility] Calcium [Mass/Vol] 8.2 mg/dL Low 8.6 - 10. 6 mg/dL [facility] Chloride [Moles/Vol] 100 mmol/L 98 - 10 7 mmol/L [facility] CO2 [Moles/Vol] 32 mmol/L 21 - 32 mmol/L [facility] Creatinine [Mass/Vol] 0.62 mg/dL 0.50 - 1.05 mg/dL [facility] eGFR - PINF [facility] Glucose [Mass/Vol] 126 mg/dL High 74 - 99 mg/dL [facility] Interpretation and review of laboratory results Abnormal [facility] Phosphate [Mass/Vol] 3.7 mg/dL 2.5 - 4 .9 mg/dL [facility] Potassium [Moles/Vol] 4.5 mmol/L 3.5 - 5.3 mmol/L [facility] Sodium [Moles/Vol] 139 mmol/L 136 - 145 mmol/L [facility] Urea nitrogen [Mass/Vol] 4 mg/dL Low 6 - 23 mg/dL [facility] Triglycerideon 11-03-2023 Triglyceride (Body fld) [Mass/Vol] 275 mg/dL Normal No established [facility] Comment on above: Order Comment: The p erformance characteristics of this test have been validated on peritoneal/ascites,pleural, pericardial and drain fluid by the [facility] laboratory. This test has not been approved by the FDA; however, such approval is not necessary. Performed By: #### 1 2228-3 ####GARRY Schmid ([id number])[facility] ([facility])[address] [place] [address] Triglyceride (Body fld) [Mas s/Vol]on 11-03-[address] [facility] Triglycerides, Fluidon 11-03 Triglyceride (Body fld) [Mass/Vol] 275 mg/dL No established [facility] Bacteria identified Cx Nom ( U)Ordered By: Agustin Bhakta on 11-02-2023 Interpretation and review of laboratory results Normal [facility] CBC panel Auto (Bld)on 11-02 Erythrocyte distribution width (RBC) [Ratio] 15.1 % High 11.5-14.5 [facility] Comment on above: Performed By: #### 5 8410-2 ####GARRY Schmid ([id number])[facility] ([facility])[address] [place] [address] Hematocrit (Bld) [Volume fraction] 24.4 % Low 36.0-46.0 [facility] Comment on above: Performed By: #### 5 8410-2 ####GARRY Schmid ([id number])[facility] ([facility])[address] [place] [address] Hemoglobin (Bld) [Mass/Vol] 7.7 g/dL Low 12.0-16.0 [facility] Comment on above: Performed By: #### 5 8410-2 ####GARRY Schmid ([id number])[facility] ([facility])[address] [place] [address] MCH (RBC) [Entitic mass] 28.9 pg Normal 26.0-34.0 [facility] Comment on above: Performed By: #### 5 8410-2 ####GARRY Schmid ([id number])[facility] ([facility])[address] [place] [address] MCHC (RBC) [Mass/Vol] 31.6 g/dL Low 32.0-36.0 [facility] Comment on above: Performed By: #### 5 8410-2 ####GARRY Schmid ([id number])[facility] ([facility])[address] [place] [address] MCV (RBC) [Entitic vol] 92 fL Normal 80-100 [facility] Comment on above: Performed By: #### 5 8410-2 ####GARRY Schmid ([id number])[facility] ([facility])[address] [place] [address] Nucleated RBC/100 WBC (Bld) [Ratio] 0.0 /100 WBCs Normal 0.0-0.0 [facility] Comment on above: Performed By: #### 5 8410-2 ####GARRY Schmid ([id number])[facility] ([facility])[address] [place] [address] Platelets (Bld) [#/Vol] 1134 x10*3/uL High 150-450 [facility] Comment on above: Performed By: #### 5 8410-2 ####GARRY Schmid ([id number])[facility] ([facility])[address] [place] [address] RBC (Bld) [#/Vol] 2.66 x10*6/uL Low 4.00-5.20 [facility] Comment on above: Performed By: #### 5 8410-2 ####GARRY Schmid ([id number])[facility] ([facility])[address] [place] [address] WBC (Bld) [#/Vol] 8.4 x10*3/uL Normal 4.4-11.3 [facility] Comment on above: Performed By: #### 5 8410-2 ####GARRY Schmid ([id number])[facility] ([facility])[address] [place] [address] Erythrocyte distribution width (RBC) [Ratio] 15.1 % High 11.5 - 14.5 % [facility] Hematocrit (Bld) [Volume fraction] 24.4 % Low 36.0 - 46.0 % [facility] Hemoglobin (Bld) [Mass/Vol] 7.7 g/dL Low 12.0 - 16.0 g/dL [facility] Interpretation and review of laboratory results Abnormal [facility] MCH (RBC) [Entitic mass] 28.9 pg 26.0 - 34.0 pg [facility] MCHC (RBC) [Mass/Vol] 31.6 g/dL Low 32.0 - 36.0 g/dL [facility] MCV (RBC) [Entitic vol] 92 fL 80 - 100 fL [facility] Nucleated RBC/100 WBC (Bld) [Ratio] 0.0 % [facility] Platelets (Bld) [#/Vol] 1134 10*3/uL High [facility] RBC (Bld) [#/Vol] 2.66 10*6/uL Low [facility] WBC (Bld) [#/Vol] 8.4 10*3/uL [facility] Cholesterolon 11-02-2023 Cholesterol (Body fld) [Mass/Vol] 82 mg/dL Normal Not established [facility] Comment on above: Result Comment: The performance characteristics of this method have not been validated for use with this fluid specimen type. The test result should be interpreted in conjunction with additional clinical and laboratory data. Performed By: #### 1 2183-0 ####GARRY Schmid ([id number])[facility] ([facility])[address] [place] [address] Cholesterol (Body fld) [Mass /Vol]on 11-02-2023 [facility] Cholesterol, Body Fluidon Cholesterol (Body fld) [Mass/Vol] 82 mg/dL Not established [facility] Glucose Test strip manual (B ld) [Mass/Vol]on 11-02-2023 Glucose [Mass/Vol] 160 mg/dL High 74-99 [facility] Comment on above: Performed By: #### 2 341-6 ####GARRY Schmid ([id number])[facility] ([facility])[address] [place] [address] Glucose [Mass/Vol] 160 mg/dL High 74 - 99 mg/dL [facility] Interpretation and review of laboratory results Abnormal [facility] Glucose [Mass/Vol] 157 mg/dL High 74-99 [facility] Comment on above: Performed By: #### 2 341-6 ####GARRY Schmid ([id number])[facility] ([facility])[address] [place] [address] 86582 Glucose [Mass/Vol] 157 mg/dL High 74 - 99 mg/dL [facility] Interpretation and review of laboratory results Abnormal [facility] Glucose [Mass/Vol] 237 mg/dL High 74-99 [facility] Comment on above: Performed By: #### 2 341-6 ####GARRY Schmid ([id number])[facility] ([facility])[address] [place] [address] 28580 Glucose [Mass/Vol] 237 mg/dL High 74 - 99 mg/dL [facility] Interpretation and review of laboratory results Abnormal [facility] Glucose [Mass/Vol] 260 mg/dL High 74-99 [facility] Comment on above: Performed By: #### 2 341-6 ####GARRY Schmid ([id number])[facility] ([facility])[address] [place] [address] Glucose [Mass/Vol] 200 mg/dL High 74-99 [facility] Comment on above: Performed By: #### 2 341-6 ####GARRY Schmid ([id number])[facility] ([facility])[address] [place] [address] Glucose [Mass/Vol] 260 mg/dL High 74 - 99 mg/dL [facility] Interpretation and review of laboratory results Abnormal [facility] Glucose [Mass/Vol] 178 mg/dL High 74-99 [facility] Comment on above: Performed By: #### 2 341-6 ####GARRY Schmid ([id number])[facility] ([facility])[address] [place] [address] 21237 Glucose [Mass/Vol] 200 mg/dL High 74 - 99 mg/dL [facility] Interpretation and review of laboratory results Abnormal [facility] Glucose [Mass/Vol] 217 mg/dL High 74-99 [facility] Comment on above: Performed By: #### 2 341-6 ####GARRY Schmid ([id number])[facility] ([facility])[address] [place] [address]11 Glucose [Mass/Vol] 178 mg/dL High 74 - 99 mg/dL [facility] Interpretation and review of laboratory results Abnormal [facility] Glucose [Mass/Vol] 195 mg/dL High 74-99 [facility] Comment on above: Performed By: #### 2 341-6 ####GARRY Schmid ([id number])[facility] ([facility])[address] [place] [address] Glucose [Mass/Vol] 217 mg/dL High 74 - 99 mg/dL [facility] Interpretation and review of laboratory results Abnormal [facility] Glucose [Mass/Vol] 195 mg/dL High 74 - 99 mg/dL [facility] Interpretation and review of laboratory results Abnormal [facility] Glucose [Mass/Vol] 207 mg/dL High 74-99 [facility] Comment on above: Performed By: #### 2 341-6 ####GARRY Schmid ([id number])[facility] ([facility])[address] [place] [address] Glucose [Mass/Vol] 184 mg/dL High 74-99 [facility] Comment on above: Performed By: #### 2 341-6 ####GARRY Schmid ([id number])[facility] ([facility])[address] [place] [address] Glucose [Mass/Vol] 207 mg/dL High 74 - 99 mg/dL [facility] Interpretation and review of laboratory results Abnormal [facility] MRSA isol Org specific cx Ql (Nose)Ordered By: Alisa Campa on 11-02-2023 Interpretation and review of laboratory results Normal [facility] Staphylococcus sp identified Org specific cx Nom (Unsp spec) No Staphylococcus aureus isolated [facility] Magnesiumon 11-02-2023 Magnesium [Mass/Vol] 1.69 mg/dL Normal 1.60-2.40 [facility] Comment on above: Performed By: #### 1 9123-9 ####GARRY Schmid ([id number])[facility] ([facility])[address] [place] [address]267 Magnesium [Mass/Vol] 1.69 mg/dL 1.60 - 2.40 mg/dL [facility] Magnesium [Mass/Vol]on 11-02 Interpretation and review of laboratory results Normal [facility] No Panel Informationon 11-02 [facility] Renal function 2000 panelon 11-02-2023 Albumin BCP dye [Mass/Vol] 2.3 g/dL Low 3.4-5.0 [facility] Comment on above: Performed By: #### 2 4362-6 ####GARRY Schmid ([id number])[facility] ([facility])[address] [place] [address] Anion gap [Moles/Vol] 11 mmol/L Normal 10-20 [facility] Comment on above: Performed By: #### 2 4362-6 ####GARRY Schmid ([id number])[facility] ([facility])[address] [place] [address] Calcium [Mass/Vol] 8.1 mg/dL Low 8.6-10.6 [facility] Comment on above: Performed By: #### 2 4362-6 ####GARRY PEREZ L ([id number])[facility] ([facility])[address] [place] [address] Chloride [Moles/Vol] 96 mmol/L Low 98-107 [facility] Comment on above: Performed By: #### 2 4362-6 ####GARRY Schmid ([id number])[facility] ([facility])[address] [place] [address] CO2 [Moles/Vol] 31 mmol/L Normal 21-32 [facility] Comment on above: Performed By: #### 2 4362-6 ####GARRY Schmid ([id number])[facility] ([facility])[address] [place] [address] Creatinine [Mass/Vol] 0.75 mg/dL Normal 0.50-1.05 [facility] Comment on above: Performed By: #### 2 4362-6 ####GARRY Schmid ([id number])[facility] ([facility])[address] [place] [address] GFR/1.73 sq M.predicted MDRD (S/P/Bld) [Vol rate/Area] mL/min/{1.73_m2} Normal >60 [facility] Comment on above: Result Comment: Calc ulations of estimated GFR are performed using the 2020 CKD-EPI Study Refit equation without the race variable for the IDMS-Traceable creatinine methods.https://jasn.asnjournals.org/content// N.1790363315 Performed By: #### 2 4362-6 ####GARRY Schmid ([id number])[facility] ([facility])[address] [place] [address] Glucose [Mass/Vol] 196 mg/dL High 74-99 [facility] Comment on above: Performed By: #### 2 4362-6 ####GARRY Schmid ([id number])[facility] ([facility])[address] [place] [address] Phosphate [Mass/Vol] 2.8 mg/dL Normal 2.5-4.9 [facility] Comment on above: Result Comment: The performance characteristics of phosphorus testing in heparinized plasma have been validated by the individual laboratory site where testing is performed. Testing on heparinized plasma is not approved by the FDA; however, such approval is not necessary. Performed By: #### 2 4362-6 ####GARRY Schmid ([id number])[facility] ([facility])[address] [place] [address] Potassium [Moles/Vol] 5.0 mmol/L Normal 3.5-5.3 [facility] Comment on above: Performed By: #### 2 4362-6 ####GARRY Schmid ([id number])[facility] ([facility])[address] [place] [address] Sodium [Moles/Vol] 133 mmol/L Low 136-145 [facility] Comment on above: Performed By: #### 2 4362-6 ####GARRY Schmid ([id number])[facility] ([facility])[address] [place] [address] Urea nitrogen [Mass/Vol] 7 mg/dL Normal 6-23 [facility] Comment on above: Performed By: #### 2 4362-6 ####GARRY Schmid ([id number])[facility] ([facility])[address] [place] [address] Albumin BCP dye [Mass/Vol] 2.3 g/dL Low 3.4 - 5.0 g/dL [facility] Anion gap [Moles/Vol] 11 mmol/L 10 - 2 0 mmol/L [facility] Calcium [Mass/Vol] 8.1 mg/dL Low 8.6 - 10. 6 mg/dL [facility] Chloride [Moles/Vol] 96 mmol/L Low 98 - 10 7 mmol/L [facility] CO2 [Moles/Vol] 31 mmol/L 21 - 32 mmol/L [facility] Creatinine [Mass/Vol] 0.75 mg/dL 0.50 - 1.05 mg/dL [facility] eGFR - PINF [facility] Glucose [Mass/Vol] 196 mg/dL High 74 - 99 mg/dL [facility] Interpretation and review of laboratory results Abnormal [facility] Phosphate [Mass/Vol] 2.8 mg/dL 2.5 - 4 .9 mg/dL [facility] Potassium [Moles/Vol] 5.0 mmol/L 3.5 - 5.3 mmol/L [facility] Sodium [Moles/Vol] 133 mmol/L Low 136 - 145 mmol/L [facility] Urea nitrogen [Mass/Vol] 7 mg/dL 6 - 23 mg/dL [facility] Urine cultureOrdered By: Devaughn Bhakta on 11-02-2023 Bacteria identified Cx Nom (U) No growth [facility] Bacteria identifiedon 2023 Bacteria identified Cx Nom (Bld) [facility] Comment on above: Performed By: #### 6 00-7 ####GARRY Schmid ([id number])[facility] ([facility])[address] [place] [address]007 Bacteria identified Cx Nom (U) [facility] Comment on above: Performed By: #### 6 30-4 ####GARRY Schimd ([id number])[facility] ([facility])[address] [place] [address] 65269 Basic metabolic 2000 panelon 11-01-2023 Anion gap [Moles/Vol] 34 mmol/L High 10-[address] [facility] Comment on above: Performed By: #### 2 4321-2 ####GARRY Schmid ([id number])[facility] ([facility])[address] [place] [address] Calcium [Mass/Vol] 8.9 mg/dL Normal 8.6-10.6 [facility] Comment on above: Performed By: #### 2 4321-2 ####GARRY PEREZ L ([id number])[facility] ([facility])[address] [place] [address] Chloride [Moles/Vol] 79 mmol/L Low 98-107 [facility] Comment on above: Performed By: #### 2 4321-2 ####GARRY NGMOTZER L ([id number])[facility] ([facility])[address] [place] [address] CO2 [Moles/Vol] 15 mmol/L Low 21-32 [facility] Comment on above: Performed By: #### 2 4321-2 ####GARRY PEREZ L ([id number])[facility] ([facility])[address] [place] [address] Creatinine [Mass/Vol] 1.04 mg/dL Normal 0.50-1.05 [facility] Comment on above: Performed By: #### 2 4321-2 ####GARRY PEREZ L ([id number])[facility] ([facility])[address] [place] [address] Glomerular filtration rate/1.73 sq M.predicted 72 mL/min/1.73m*2 Normal >60 [facility] Comment on above: Result Comment: Calc ulations of estimated GFR are performed using the 2020 CKD-EPI Study Refit equation without the race variable for the IDMS-Traceable creatinine methods.https://jasn.asnjournals.org/content/early/ N.3263358466 Performed By: #### 2 4321-2 ####GARRY SHIRLEYTZLEIGH L ([id number])[facility] ([facility])[address] [place] [address] Glucose [Mass/Vol] 1161 mg/dL Critically high 74-99 [facility] Comment on above: Performed By: #### 2 4321-2 ####GARRY Schmid ([id number])[facility] ([facility])[address] [place] [address] Potassium [Moles/Vol] 6.5 mmol/L Critically high 3.5-5.3 [facility] Comment on above: Performed By: #### 2 4321-2 ####GARRY Schmid ([id number])[facility] ([facility])[address] [place] [address] Sodium [Moles/Vol] 121 mmol/L Low 136-145 [facility] Comment on above: Performed By: #### 2 4321-2 ####GARRY Schmid ([id number])[facility] ([facility])[address] [place] [address] Urea nitrogen [Mass/Vol] 6 mg/dL Normal 6-23 [facility] Comment on above: Performed By: #### 2 4321-2 ####GARRY Schmid ([id number])[facility] ([facility])[address] [place] [address] Anion gap [Moles/Vol] 34 mmol/L High 10 - 2 0 mmol/L [facility] Calcium [Mass/Vol] 8.9 mg/dL 8.6 - 10. 6 mg/dL [facility] Chloride [Moles/Vol] 79 mmol/L Low 98 - 10 7 mmol/L [facility] CO2 [Moles/Vol] 15 mmol/L Low 21 - 32 mmol/L [facility] Creatinine [Mass/Vol] 1.04 mg/dL 0.50 - 1.05 mg/dL [facility] GFR/1.73 sq M.predicted among non-blacks MDRD (S/P/Bld) [Vol rate/Area] 72 mL/min/{1.73_m2} - PINF [facility] Glucose [Mass/Vol] 1161 mg/dL Critically high 74 - 9 9 mg/dL [facility] Potassium [Moles/Vol] 6.5 mmol/L Critically high 3.5 - 5.3 mmol/L [facility] Sodium [Moles/Vol] 121 mmol/L Low 136 - 145 mmol/L [facility] Urea nitrogen [Mass/Vol] 6 mg/dL 6 - 23 mg/dL [facility] Beta hydroxybutyrate [Mass o r moles/Vol]on 11-01-2023 Beta hydroxybutyrate [Moles/Vol] 7.34 mmol/L High 0.02-0.27 [facility] Comment on above: Order Comment: The b eta-hydroxybutyrate test performance characteristics have been validated by [facility]. This test has not been approved by the FDA; however such approval is not necessary. Performed By: #### 3 5255-9 ####GARRY Schmid ([id number])[facility] ([facility])[address] [place] [address] Beta hydroxybutyrate [Moles/Vol] 7.34 mmol/L High 0.02 - 0.27 mmol/L [facility] Interpretation and review of laboratory results Abnormal [facility] Blood Gas Lactic Acid, Venou son 11-01-2023 Lactate (BldV) [Moles/Vol] 4.0 mmol/L Critically high 0.4 - 2.0 mmol/L [facility] Blood type and Indirect anti body screen panel (Bld)on 11-01-2023 ABO group Nom (Bld) A [facility] Blood group antibody screen Ql Negative [facility] D Ag Ql (Bld) Positive [facility] ABO group Nom (Bld) A Normal [facility] Comment on above: Performed By: #### 3 4532-2 ####GARRY Schmid ([id number])[facility] ([facility])[address] [place] [address] Blood group antibody screen Ql Negative [facility] Comment on above: Performed By: #### 3 4532-2 ####GARRY Schmid ([id number])[facility] ([facility])[address] [place] [address] D Ag Ql (Bld) Positive Normal [facility] Comment on above: Performed By: #### 3 4532-2 ####GARRY Schmid ([id number])[facility] ([facility] [place] [address] CBC panel Auto (Bld)on 11-01 Erythrocyte distribution width (RBC) [Ratio] 15.0 % High 11.5-14.5 [facility] Comment on above: Performed By: #### 5 8410-2 ####GARRY Schmid ([id number])[facility] ([facility])[address] [place] [address] Hematocrit (Bld) [Volume fraction] 30.4 % Low 36.0-46.0 [facility] Comment on above: Performed By: #### 5 8410-2 ####GARRY Schmid ([id number])[facility] ([facility])[address] [place] [address] Hemoglobin (Bld) [Mass/Vol] 9.3 g/dL Low 12.0-16.0 [facility] Comment on above: Performed By: #### 5 8410-2 ####GARRY Schmid ([id number])[facility] ([facility])[address] [place] [address] MCH (RBC) [Entitic mass] 29.6 pg Normal 26.0-34.0 [facility] Comment on above: Performed By: #### 5 8410-2 ####GARRY Schmid ([id number])[facility] ([facility])[address] [place] [address] MCHC (RBC) [Mass/Vol] 30.6 g/dL Low 32.0-36.0 [facility] Comment on above: Performed By: #### 5 8410-2 ####GARRY Schmid ([id number])[facility] ([facility])[address] [place] [address] MCV (RBC) [Entitic vol] 97 fL Normal 80-100 [facility] Comment on above: Performed By: #### 5 8410-2 ####GARRY Schmid ([id number])[facility] ([facility])[address] [place] [address] Nucleated RBC/100 WBC (Bld) [Ratio] 0.1 /100 WBCs High 0.0-0.0 [facility] Comment on above: Performed By: #### 5 8410-2 ####GARRY Schmid ([id number])[facility] ([facility])[address] [place] [address] Platelets (Bld) [#/Vol] 1455 x10*3/uL High 150-450 [facility] Comment on above: Performed By: #### 5 8410-2 ####GARRY Schmid ([id number])[facility] ([facility])[address] [place] [address] RBC (Bld) [#/Vol] 3.14 x10*6/uL Low 4.00-5.20 [facility] Comment on above: Performed By: #### 5 8410-2 ####GARRY Schmid ([id number])[facility] ([facility])[address] [place] [address] WBC (Bld) [#/Vol] 19.1 x10*3/uL High 4.4-11.3 [facility] Comment on above: Performed By: #### 5 8410-2 ####GARRY Schmid ([id number])[facility] ([facility])[address] [place] [address] Erythrocyte distribution width (RBC) [Ratio] 15.0 % High 11.5 - 14.5 % [facility] Hematocrit (Bld) [Volume fraction] 30.4 % Low 36.0 - 46.0 % [facility] Hemoglobin (Bld) [Mass/Vol] 9.3 g/dL Low 12.0 - 16.0 g/dL [facility] Interpretation and review of laboratory results Abnormal [facility] MCH (RBC) [Entitic mass] 29.6 pg 26.0 - 34.0 pg [facility] MCHC (RBC) [Mass/Vol] 30.6 g/dL Low 32.0 - 36.0 g/dL [facility] MCV (RBC) [Entitic vol] 97 fL 80 - 100 fL [facility] Nucleated RBC/100 WBC (Bld) [Ratio] 0.1 % High [facility] Platelets (Bld) [#/Vol] 1455 10*3/uL High [facility] RBC (Bld) [#/Vol] 3.14 10*6/uL Low [facility] WBC (Bld) [#/Vol] 19.1 10*3/uL High [facility] Erythrocyte distribution width (RBC) [Ratio] 14.8 % High 11.5-14.5 [facility] Comment on above: Performed By: #### 5 8410-2 ####GARRY Schmid ([id number])[facility] ([facility])[address] [place] [address] Hematocrit (Bld) [Volume fraction] 29.4 % Low 36.0-46.0 [facility] Comment on above: Performed By: #### 5 8410-2 ####GARRY Schmid ([id number])[facility] ([facility])[address] [place] [address] Hemoglobin (Bld) [Mass/Vol] 9.7 g/dL Low 12.0-16.0 [facility] Comment on above: Performed By: #### 5 8410-2 ####GARRY Schmid ([id number])[facility] ([facility])[address] [place] [address] MCH (RBC) [Entitic mass] 29.6 pg Normal 26.0-34.0 [facility] Comment on above: Performed By: #### 5 8410-2 ####GARRY Schmid ([id number])[facility] ([facility])[address] [place] [address] MCHC (RBC) [Mass/Vol] 33.0 g/dL Normal 32.0-36.0 [facility] Comment on above: Performed By: #### 5 8410-2 ####GARRY Schmid ([id number])[facility] ([facility])[address] [place] [address] MCV (RBC) [Entitic vol] 90 fL Normal 80-100 [facility] Comment on above: Performed By: #### 5 8410-2 ####GARRY Schmid ([id number])[facility] ([facility])[address] [place] [address] Nucleated RBC/100 WBC (Bld) [Ratio] 0.2 /100 WBCs High 0.0-0.0 [facility] Comment on above: Performed By: #### 5 8410-2 ####GARRY Schmid ([id number])[facility] ([facility])[address] [place] [address] Platelets (Bld) [#/Vol] 1497 x10*3/uL High 150-450 [facility] Comment on above: Performed By: #### 5 8410-2 ####GARRY Schmid ([id number])[facility] ([facility])[address] [place] [address] RBC (Bld) [#/Vol] 3.28 x10*6/uL Low 4.00-5.20 [facility] Comment on above: Performed By: #### 5 8410-2 ####GARRY Schmid ([id number])[facility] ([facility])[address] [place] [address] WBC (Bld) [#/Vol] 9.6 x10*3/uL Normal 4.4-11.3 [facility] Comment on above: Performed By: #### 5 8410-2 ####GARRY Schmid ([id number])[facility] ([facility])[address] [place] [address] Abdomen and Pelvis W cont rast Rodney 11-01-2023 MMODAL [facility] MMODAL [facility] Work Phone: Radiology Study observation (narrative) [facility] Work Phone: CT Abdomen and Pelvis W cont rast IVOrdered By: Sajan Duncan on 11-01-2023 [facility] Work Phone: CT LYMPHANGIOGRAPHY A P UNIL ATERALon 11-01-2023 CT LYMPHANGIOGRAPHY A P UNILATERAL Normal [facility] Calcium, Ionizedon 4 Calcium.ionized (Bld) [Moles/Vol] 1.10 mmol/L 1.1 - 1.33 mmol/L [facility] Calcium.ionized (Bld) [Moles/Vol] 1.16 mmol/L 1.1 - 1.33 mmol/L [facility] Calcium.ionized (Bld) [Moles/Vol] 1.21 mmol/L 1.1 - 1.33 mmol/L [facility] Calcium.ionizedon 11-01-2023 Calcium.ionized (Bld) [Moles/Vol] 1.10 mmol/L Normal 1.1-1.33 [facility] Comment on above: Result Comment: The performance characteristics of ionized calcium testedin heparinized plasma or serum have been [facility].Testing on heparinized plasma or serum is not approved [facility] FDA; however, such approval is not necessary. Performed By: #### 1 994-3 ####GARRY Schmid ([id number])[facility] ([facility])[address] [place], [place] [address] Calcium.ionized (Bld) [Moles/Vol] 1.16 mmol/L Normal 1.1-1.33 [facility] Comment on above: Result Comment: The performance characteristics of ionized calcium testedin heparinized plasma or serum have been validated [facility].Testing on heparinized plasma or serum is not approved [facility] FDA; however, such approval is not necessary. Performed By: #### 1 994-3 ####GARRY Schmid ([id number])[facility] ([facility])[address] [place] [address] Calcium.ionized (Bld) [Moles/Vol] 1.21 mmol/L Normal 1.1-1.33 [facility] Comment on above: Result Comment: The performance characteristics of ionized calcium testedin heparinized plasma or serum have been validated [facility].Testing on heparinized plasma or serum is not approved bythe FDA; however, such approval is not necessary. Performed By: #### 1 994-3 ####GARRY Schmid ([id number])[facility] ([facility])[address] [place] [address] Calcium.ionized (Bld) [Moles /Vol]on 11-01-2023 Interpretation and review of laboratory results Normal [facility] Interpretation and review of laboratory results Normal [facility] Interpretation and review of laboratory results Normal [facility] ECG 12-LEADon 11-01-2023 ECG 12-LEAD Ventricular Rate 85 Atrial Rate 85 P-R Interval 142 QRS Duration 108 Q-T Interval 366 QTC Calculation(Bazett) 435 P Morris 75 R Morris -37 T Morris 36 QRS Count 14 Q Onset 218 P Onset 147 P Offset 198 T Offset 401 QTC Fredericia 411 Diagnosis Normal sinus rhythm Possible Left atrial enlargement Left axis deviation Incomplete right bundle branch block Abnormal ECG When compared with ECG of 20-SEP-2023 17:05, No significant change since Confirmed by Getachew Carreon ([id number]) on 11/07/2023 2:41:[address] [facility] Gas panelon 11-01-2023 Lactate (BldV) [Moles/Vol] 3.2 mmol/L High 0.4-2.0 [facility] Comment on above: Performed By: #### 2 4339-4 ####GARRY Schmid ([id number])[facility] ([facility])[address] [place], [place] [address] Performed By: #### 2 519-7 ####GARRY Schmid ([id number])[facility] ([facility])[address] [place], [place] [address] Gas panel (BldV)on Anion gap 4 (BldV) [Moles/Vol] Normal [facility] Comment on above: Result Comment: NO R ESULT Performed By: #### 2 4339-4 ####GARRY Schmid ([id number])[facility] ([facility])[address] [place] [address] Base excess Calc (BldV) [Moles/Vol] 6.6 mmol/L High -2.0-3.0 [facility] Comment on above: Performed By: #### 2 4339-4 ####GARRY Schmid ([id number])[facility] ([facility])[address] [place] [address] Calcium.ionized (BldV) [Moles/Vol] 1.12 mmol/L Normal 1.10-1.33 [facility] Comment on above: Performed By: #### 2 4339-4 ####GARRY Schmid ([id number])[facility] ([facility])[address] [place] [address] Chloride (BldV) [Moles/Vol] Normal [facility] Comment on above: Result Comment: NO R ESULT Performed By: #### 2 4339-4 ####GARRY Schmid ([id number])[facility] ([facility])[address] [place] [address] CO2 (BldV) [Partial pressure] 45 mm Hg Normal 41-51 [facility] Comment on above: Performed By: #### 2 4339-4 ####GARRY Schmid ([id number])[facility] ([facility])[address] [place] [address] Glucose [Mass/Vol] 183 mg/dL High 74-99 [facility] Comment on above: Performed By: #### 2 4339-4 ####GARRY Schmid ([id number])[facility] ([facility])[address] [place] [address] HCO3 (Bld) [Moles/Vol] 31.3 mmol/L High 22.0-26.0 [facility] Comment on above: Performed By: #### 2 4339-4 ####GARRY Schmid ([id number])[facility] ([facility])[address] [place] [address] Hematocrit Est (Bld) [Volume fraction] 24.0 % Low 36.0-46.0 [facility] Comment on above: Performed By: #### 2 4339-4 ####GARRY Schmid ([id number])[facility] ([facility])[address] [place] [address] Hemoglobin (Bld) [Mass/Vol] 8.0 g/dL Low 12.0-16.0 [facility] Comment on above: Performed By: #### 2 4339-4 ####GARRY Schmid ([id number])[facility] ([facility])[address] [place] [address] Inhaled oxygen concentration 21 % Normal [facility] Comment on above: Performed By: #### 2 4339-4 ####GARRY Schmid ([id number])[facility] ([facility])[address] [place] [address] Lactate (BldV) [Moles/Vol] 1.2 mmol/L Normal 0.4-2.0 [facility] Comment on above: Result Comment: NO R ESULT Performed By: #### 2 4339-4 ####GARRY Schmid ([id number])[facility] ([facility])[address] [place] [address] Oxygen (BldV) [Partial pressure] 52 mm Hg High 35-45 [facility] Comment on above: Performed By: #### 2 4339-4 ####GARRY PEREZ L ([id number])[facility] ([facility])[address] [place] [address] Oxygen saturation in Venous blood 89 % High 45-75 [facility] Comment on above: Performed By: #### 2 4339-4 ####GARRY PEREZ L ([id number])[facility] ([facility])[address] [place] [address] Oxyhemoglobin (BldV) [Mass fraction] 87.2 % High 45.0-75.0 [facility] Comment on above: Performed By: #### 2 4339-4 ####GARRY Schmid ([id number])[facility] ([facility])[address] [place] [address] pH (BldV) 7.45 [pH] High 7.33-7.43 [facility] Comment on above: Performed By: #### 2 4339-4 ####GARRY Schmid ([id number])[facility] ([facility])[address] [place] [address] Potassium (BldV) [Moles/Vol] 3.7 mmol/L Normal 3.5-5.3 [facility] Comment on above: Performed By: #### 2 4339-4 ####GARRY Schmid ([id number])[facility] ([facility])[address] [place] [address] Sodium (BldV) [Moles/Vol] 131 mmol/L Low 136-145 [facility] Comment on above: Performed By: #### 2 4339-4 ####GARRY Schmid ([id number])[facility] ([facility])[address] [place] [address] Anion gap 4 (BldV) [Moles/Vol] [facility] Base excess Calc (BldV) [Moles/Vol] 6.6 mmol/L High -2.0 - 3.0 mmol/L [facility] Calcium.ionized (BldV) [Moles/Vol] 1.12 mmol/L 1.10 - 1.33 mmol/L [facility] Chloride (BldV) [Moles/Vol] [facility] CO2 (BldV) [Partial pressure] 45 mm[Hg] [facility] Glucose [Mass/Vol] 183 mg/dL High 74 - 99 mg/dL [facility] HCO3 (Bld) [Moles/Vol] 31.3 mmol/L High 22.0 - 26.0 mmol/L [facility] Hematocrit Est (Bld) [Volume fraction] 24.0 % Low 36.0 - 46.0 % [facility] Hemoglobin (Bld) [Mass/Vol] 8.0 g/dL Low 12.0 - 16.0 g/dL [facility] Inhaled oxygen concentration 21 % [facility] Interpretation and review of laboratory results Abnormal [facility] Lactate (BldV) [Moles/Vol] 1.2 mmol/L 0.4 - 2.0 mmol/L [facility] Oxygen (BldV) [Partial pressure] 52 mm[Hg] High [facility] Oxygen saturation in Venous blood 89 % High 45 - 75 % [facility] Oxyhemoglobin (BldV) [Mass fraction] 87.2 % High 45.0 - 75.0 % [facility] pH (BldV) 7.45 [pH] High 7.33 - 7.43 pH [facility] Potassium (BldV) [Moles/Vol] 3.7 mmol/L 3.5 - 5.3 mmol/L [facility] Sodium (BldV) [Moles/Vol] 131 mmol/L Low 136 - 145 mmol/L [facility] Anion gap 4 (BldV) [Moles/Vol] 6.0 mmol/L Low 10.0-25.0 [facility] Comment on above: Performed By: #### 2 4339-4 ####GARRY Schmid ([id number])[facility] ([facility])[address] [place] [address] Base excess Calc (BldV) [Moles/Vol] 7.1 mmol/L High -2.0-3.0 [facility] Comment on above: Performed By: #### 2 4339-4 ####GARRY Schmid ([id number])[facility] ([facility])[address] [place] [address] Calcium.ionized (BldV) [Moles/Vol] 1.22 mmol/L Normal 1.10-1.33 [facility] Comment on above: Performed By: #### 2 4339-4 ####GARRY Schmid ([id number])[facility] ([facility])[address] [place] [address] Chloride (BldV) [Moles/Vol] 97 mmol/L Low 98-107 [facility] Comment on above: Performed By: #### 2 4339-4 ####GARRY Schmid ([id number])[facility] ([facility])[address] [place] [address] CO2 (BldV) [Partial pressure] 53 mm Hg High 41-51 [facility] Comment on above: Performed By: #### 2 4339-4 ####GARRY Schmid ([id number])[facility] ([facility])[address] [place] [address] Glucose [Mass/Vol] 262 mg/dL High 74-99 [facility] Comment on above: Performed By: #### 2 4339-4 ####GARRY Schmid ([id number])[facility] ([facility])[address] [place] [address] 49079 HCO3 (Bld) [Moles/Vol] 32.8 mmol/L High 22.0-26.0 [facility] Comment on above: Performed By: #### 2 4339-4 ####GARRY Schmid ([id number])[facility] ([facility])[address] [place] [address] Hematocrit Est (Bld) [Volume fraction] 24.0 % Low 36.0-46.0 [facility] Comment on above: Performed By: #### 2 4339-4 ####GARRY Schmid ([id number])[facility] ([facility])[id number] [place] [address] 63491 Hemoglobin (Bld) [Mass/Vol] 8.1 g/dL Low 12.0-16.0 [facility] Comment on above: Performed By: #### 2 4339-4 ####GARRY Schmid ([id number])[facility] ([facility])[id number] [place] [address] 93934 Inhaled oxygen concentration 21 % Normal [facility] Comment on above: Result Comment: Room Air Performed By: #### 2 4339-4 ####GARRY Schmid ([id number])[facility] ([facility])[address] [place] [address] Lactate (BldV) [Moles/Vol] 1.9 mmol/L Normal 0.4-2.0 [facility] Comment on above: Performed By: #### 2 4339-4 ####GARRY Schmid ([id number])[facility] ([facility])[address] [place] [address] Oxygen (BldV) [Partial pressure] 28 mm Hg Low 35-45 [facility] Comment on above: Performed By: #### 2 4339-4 ####GARRY Schmid ([id number])[facility] ([facility])[id number] [place] [address] 51297 Oxygen saturation in Venous blood 44 % Low 45-75 [facility] Comment on above: Performed By: #### 2 4339-4 ####GARRY Schmid ([id number])[facility] ([facility])[id number] [place] [address] 88039 Oxyhemoglobin (BldV) [Mass fraction] 43.6 % Low 45.0-75.0 [facility] Comment on above: Performed By: #### 2 4339-4 ####GARRY Schmid ([id number])[facility] ([facility])[address] [place] [address] pH (BldV) 7.40 [pH] Normal 7.33-7.43 [facility] Comment on above: Performed By: #### 2 4339-4 ####GARRY Schmid ([id number])[facility] ([facility])[id number] [place] [address] 09105 Potassium (BldV) [Moles/Vol] 4.1 mmol/L Normal 3.5-5.3 [facility] Comment on above: Performed By: #### 2 4339-4 ####GARRY Schmid ([id number])[facility] ([facility])[id number] [place] [address] 66664 Sodium (BldV) [Moles/Vol] 132 mmol/L Low 136-145 [facility] Comment on above: Performed By: #### 2 4339-4 ####GARRY Schmid ([id number])[facility] ([facility])[address] [place] [address] Anion gap 4 (BldV) [Moles/Vol] 6.0 mmol/L Low 10.0 - 25.0 mmol/L [facility] Base excess Calc (BldV) [Moles/Vol] 7.1 mmol/L High -2.0 - 3.0 mmol/L [facility] Calcium.ionized (BldV) [Moles/Vol] 1.22 mmol/L 1.10 - 1.33 mmol/L [facility] Chloride (BldV) [Moles/Vol] 97 mmol/L Low 98 - 107 mmol/L [facility] CO2 (BldV) [Partial pressure] 53 mm[Hg] High [facility] Glucose [Mass/Vol] 262 mg/dL High 74 - 99 mg/dL [facility] HCO3 (Bld) [Moles/Vol] 32.8 mmol/L High 22.0 - 26.0 mmol/L [facility] Hematocrit Est (Bld) [Volume fraction] 24.0 % Low 36.0 - 46.0 % [facility] Hemoglobin (Bld) [Mass/Vol] 8.1 g/dL Low 12.0 - 16.0 g/dL [facility] Inhaled oxygen concentration 21 % [facility] Interpretation and review of laboratory results Abnormal [facility] Lactate (BldV) [Moles/Vol] 1.9 mmol/L 0.4 - 2.0 mmol/L [facility] Oxygen (BldV) [Partial pressure] 28 mm[Hg] Low [facility] Oxygen saturation in Venous blood 44 % Low 45 - 75 % [facility] Oxyhemoglobin (BldV) [Mass fraction] 43.6 % Low 45.0 - 75.0 % [facility] pH (BldV) 7.40 [pH] 7.33 - 7.43 pH [facility] Potassium (BldV) [Moles/Vol] 4.1 mmol/L 3.5 - 5.3 mmol/L [facility] Sodium (BldV) [Moles/Vol] 132 mmol/L Low 136 - 145 mmol/L [facility] Anion gap 4 (BldV) [Moles/Vol] 7.0 mmol/L Low 10.0-25.0 [facility] Comment on above: Performed By: #### 2 4339-4 ####GARRY Schmid ([id number])[facility] ([facility])[id number] [place] [address] 40918 Base excess Calc (BldV) [Moles/Vol] 3.9 mmol/L High -2.0-3.0 [facility] Comment on above: Performed By: #### 2 4339-4 ####GARRY Schmid ([id number])[facility] ([facility])[id number] [place] [address] 68442 Calcium.ionized (BldV) [Moles/Vol] 1.19 mmol/L Normal 1.10-1.33 [facility] Comment on above: Performed By: #### 2 4339-4 ####GARRY Schmid ([id number])[facility] ([facility])[id number] [place] [address] 46067 Chloride (BldV) [Moles/Vol] 95 mmol/L Low 98-107 [facility] Comment on above: Performed By: #### 2 4339-4 ####GARRY Schmid ([id number])[facility] ([facility])[id number] [place] [address] 05793 CO2 (BldV) [Partial pressure] 50 mm Hg Normal 41-51 [facility] Comment on above: Performed By: #### 2 4339-4 ####GARRY Schmid ([id number])[facility] ([facility])[id number] [place] [address] 38935 Glucose [Mass/Vol] 352 mg/dL High 74-99 [facility] Comment on above: Performed By: #### 2 4339-4 ####GARRY Schmid ([id number])[facility] ([facility])[address] [place] [address] HCO3 (Bld) [Moles/Vol] 29.6 mmol/L High 22.0-26.0 [facility] Comment on above: Performed By: #### 2 4339-4 ####GARRY Schmid ([id number])[facility] ([facility])[id number] [place] [address] 51753 Hematocrit Est (Bld) [Volume fraction] 24.0 % Low 36.0-46.0 [facility] Comment on above: Performed By: #### 2 4339-4 ####GARRY Schmid ([id number])[facility] ([facility])[address] [place] [address] 60301 Hemoglobin (Bld) [Mass/Vol] 8.1 g/dL Low 12.0-16.0 [facility] Comment on above: Performed By: #### 2 4339-4 ####GARRY Schmid ([id number])[facility] ([facility])[address] [place] [address] 88918 Inhaled oxygen concentration 21 % Normal [facility] Comment on above: Result Comment: Room Air Performed By: #### 2 4339-4 ####GARRY Schmid ([id number])[facility] ([facility])[id number] [place] [address] 78782 Lactate (BldV) [Moles/Vol] 1.2 mmol/L Normal 0.4-2.0 [facility] Comment on above: Performed By: #### 2 4339-4 ####GARRY Schmid ([id number])[facility] ([facility])[id number] [place] [address] 53240 Oxygen (BldV) [Partial pressure] 36 mm Hg Normal 35-45 [facility] Comment on above: Performed By: #### 2 4339-4 ####GARRY Schmid ([id number])[facility] ([facility])[address] [place] [address] Oxygen saturation in Venous blood 61 % Normal 45-75 [facility] Comment on above: Performed By: #### 2 4339-4 ####GARRY Schmid ([id number])[facility] ([facility])[id number] [place] [address] 69552 Oxyhemoglobin (BldV) [Mass fraction] 60.4 % Normal 45.0-75.0 [facility] Comment on above: Performed By: #### 2 4339-4 ####GARRY Schmid ([id number])[facility] ([facility])[id number] [place] [address] 60848 pH (BldV) 7.38 [pH] Normal 7.33-7.43 [facility] Comment on above: Performed By: #### 2 4339-4 ####GRARY Schmid ([id number])[facility] ([facility])[id number] [place] [address] 21007 Potassium (BldV) [Moles/Vol] 4.7 mmol/L Normal 3.5-5.3 [facility] Comment on above: Performed By: #### 2 4339-4 ####GARRY Schmid ([id number])[facility] ([facility])[id number] [place] [address] 72320 Sodium (BldV) [Moles/Vol] 127 mmol/L Low 136-145 [facility] Comment on above: Performed By: #### 2 4339-4 ####GARRY Schmid ([id number])[facility] ([facility])[id number] [place] [address] 53287 Anion gap 4 (BldV) [Moles/Vol] 7.0 mmol/L Low 10.0-25.0 [facility] Comment on above: Performed By: #### 2 4339-4 ####GARRY Schmid ([id number])[facility] ([facility])[id number] [place] [address] 65846 Base excess Calc (BldV) [Moles/Vol] 4.9 mmol/L High -2.0-3.0 [facility] Comment on above: Performed By: #### 2 4339-4 ####GARRY Schmid ([id number])[facility] ([facility])[address] [place] [address] Calcium.ionized (BldV) [Moles/Vol] 1.18 mmol/L Normal 1.10-1.33 [facility] Comment on above: Performed By: #### 2 4339-4 ####GARRY PEREZ L ([id number])[facility] ([facility])[id number] [place] [address] 89607 Chloride (BldV) [Moles/Vol] 96 mmol/L Low 98-107 [facility] Comment on above: Performed By: #### 2 4339-4 ####GARRY Schmid ([id number])[facility] ([facility])[id number] [place] [address] 02980 CO2 (BldV) [Partial pressure] 49 mm Hg Normal 41-51 [facility] Comment on above: Performed By: #### 2 4339-4 ####GARRY Schmid ([id number])[facility] ([facility])[address] [place] [address] 09641 Glucose [Mass/Vol] 234 mg/dL High 74-99 [facility] Comment on above: Performed By: #### 2 4339-4 ####GARRY PEREZ L ([id number])[facility] ([facility])[id number] [place] [address] 89383 HCO3 (Bld) [Moles/Vol] 30.4 mmol/L High 22.0-26.0 [facility] Comment on above: Performed By: #### 2 4339-4 ####GARRY PEREZ L ([id number])[facility] ([facility])[id number] [place] [address] 01374 Hematocrit Est (Bld) [Volume fraction] 25.0 % Low 36.0-46.0 [facility] Comment on above: Performed By: #### 2 4339-4 ####GARRY Schmid ([id number])[facility] ([facility])[address] [place] [address] Hemoglobin (Bld) [Mass/Vol] 8.3 g/dL Low 12.0-16.0 [facility] Comment on above: Performed By: #### 2 4339-4 ####GARRY Schmid ([id number])[facility] ([facility])[address]166 [place] [address] Inhaled oxygen concentration 21 % Normal [facility] Comment on above: Result Comment: Room Air Performed By: #### 2 4339-4 ####GARRY Schmid ([id number])[facility] ([facility])[address]151 [place] [address] Lactate (BldV) [Moles/Vol] 1.0 mmol/L Normal 0.4-2.0 [facility] Comment on above: Performed By: #### 2 4339-4 ####GARRY Schmid ([id number])[facility] ([facility])[address] [place] [address] Oxygen (BldV) [Partial pressure] 39 mm Hg Normal 35-45 [facility] Comment on above: Performed By: #### 2 4339-4 ####GARRY Schmid ([id number])[facility] ([facility])[address]67 [place] [address] Oxygen saturation in Venous blood 64 % Normal 45-75 [facility] Comment on above: Performed By: #### 2 4339-4 ####GARRY Schmid ([id number])[facility] ([facility])[id number] [place] [address] 21371 Oxyhemoglobin (BldV) [Mass fraction] 62.9 % Normal 45.0-75.0 [facility] Comment on above: Performed By: #### 2 4339-4 ####GARRY Schmid ([id number])[facility] ([facility])[address] [place] [address] pH (BldV) 7.40 [pH] Normal 7.33-7.43 [facility] Comment on above: Performed By: #### 2 4339-4 ####GARRY Schmid ([id number])[facility] ([facility])[address] [place] [address] Potassium (BldV) [Moles/Vol] 4.5 mmol/L Normal 3.5-5.3 [facility] Comment on above: Performed By: #### 2 4339-4 ####GARRY Schmid ([id number])[facility] ([facility])[address] [place] [address] Sodium (BldV) [Moles/Vol] 129 mmol/L Low 136-145 [facility] Comment on above: Performed By: #### 2 4339-4 ####GARRY Schmid ([id number])[facility] ([facility])[address] [place] [address] Anion gap 4 (BldV) [Moles/Vol] 7.0 mmol/L Low 10.0 - 25.0 mmol/L [facility] Base excess Calc (BldV) [Moles/Vol] 3.9 mmol/L High -2.0 - 3.0 mmol/L [facility] Calcium.ionized (BldV) [Moles/Vol] 1.19 mmol/L 1.10 - 1.33 mmol/L [facility] Chloride (BldV) [Moles/Vol] 95 mmol/L Low 98 - 107 mmol/L [facility] CO2 (BldV) [Partial pressure] 50 mm[Hg] [facility] Glucose [Mass/Vol] 352 mg/dL High 74 - 99 mg/dL [facility] HCO3 (Bld) [Moles/Vol] 29.6 mmol/L High 22.0 - 26.0 mmol/L [facility] Hematocrit Est (Bld) [Volume fraction] 24.0 % Low 36.0 - 46.0 % [facility] Hemoglobin (Bld) [Mass/Vol] 8.1 g/dL Low 12.0 - 16.0 g/dL [facility] Inhaled oxygen concentration 21 % [facility] Interpretation and review of laboratory results Abnormal [facility] Lactate (BldV) [Moles/Vol] 1.2 mmol/L 0.4 - 2.0 mmol/L [facility] Oxygen (BldV) [Partial pressure] 36 mm[Hg] [facility] Oxygen saturation in Venous blood 61 % 45 - 75 % [facility] Oxyhemoglobin (BldV) [Mass fraction] 60.4 % 45.0 - 75.0 % [facility] pH (BldV) 7.38 [pH] 7.33 - 7.43 pH [facility] Potassium (BldV) [Moles/Vol] 4.7 mmol/L 3.5 - 5.3 mmol/L [facility] Sodium (BldV) [Moles/Vol] 127 mmol/L Low 136 - 145 mmol/L [facility] Anion gap 4 (BldV) [Moles/Vol] 5.0 mmol/L Low 10.0-25.0 [facility] Comment on above: Performed By: #### 2 4339-4 ####GARRY Scmhid ([id number])[facility] ([facility])[id number] [place] [address] 04359 Base excess Calc (BldV) [Moles/Vol] 7.3 mmol/L High -2.0-3.0 [facility] Comment on above: Performed By: #### 2 4339-4 ####GARRY Schmid ([id number])[facility] ([facility])[id number] [place] [address] 96621 Calcium.ionized (BldV) [Moles/Vol] 1.23 mmol/L Normal 1.10-1.33 [facility] Comment on above: Performed By: #### 2 4339-4 ####GARRY PEREZ L ([id number])[facility] ([facility])[id number] [place] [address] 05783 Chloride (BldV) [Moles/Vol] 98 mmol/L Normal 98-107 [facility] Comment on above: Performed By: #### 2 4339-4 ####GARRY Schmid ([id number])[facility] ([facility])[id number] [place] [address] 68303 CO2 (BldV) [Partial pressure] 52 mm Hg High 41-51 [facility] Comment on above: Performed By: #### 2 4339-4 ####GARRY Schmid ([id number])[facility] ([facility])[address] [place] [address] Glucose [Mass/Vol] 101 mg/dL High 74-99 [facility] Comment on above: Performed By: #### 2 4339-4 ####GARRY Schmid ([id number])[facility] ([facility])[address]25 [place] [address] HCO3 (Bld) [Moles/Vol] 33.0 mmol/L High 22.0-26.0 [facility] Comment on above: Performed By: #### 2 4339-4 ####GARRY Schmid ([id number])[facility] ([facility])[address] [place] [address] Hematocrit Est (Bld) [Volume fraction] 28.0 % Low 36.0-46.0 [facility] Comment on above: Performed By: #### 2 4339-4 ####GARRY Schmid ([id number])[facility] ([facility])[address]203 [place] [address] Hemoglobin (Bld) [Mass/Vol] 9.3 g/dL Low 12.0-16.0 [facility] Comment on above: Performed By: #### 2 4339-4 ####GARRY Schmid ([id number])[facility] ([facility])[address]18 [place] [address] Inhaled oxygen concentration 21 % Normal [facility] Comment on above: Result Comment: Room Air Performed By: #### 2 4339-4 ####GARRY Schmid ([id number])[facility] ([facility])[address]478 [place] [address] Lactate (BldV) [Moles/Vol] 1.4 mmol/L Normal 0.4-2.0 [facility] Comment on above: Performed By: #### 2 4339-4 ####GARRY Schmid ([id number])[facility] ([facility])[id number] [place] [address] 61066 Oxygen (BldV) [Partial pressure] 29 mm Hg Low 35-45 [facility] Comment on above: Performed By: #### 2 4339-4 ####GARRY Schmid ([id number])[facility] ([facility])[id number] [place] [address] 02375 Oxygen saturation in Venous blood 45 % Normal 45-75 [facility] Comment on above: Performed By: #### 2 4339-4 ####GARRY Schmid ([id number])[facility] ([facility])[address] [place] [address] 48718 Oxyhemoglobin (BldV) [Mass fraction] 44.5 % Low 45.0-75.0 [facility] Comment on above: Performed By: #### 2 4339-4 ####GARRY Schmid ([id number])[facility] ([facility])[address] [place] [address] 90851 pH (BldV) 7.41 [pH] Normal 7.33-7.43 [facility] Comment on above: Performed By: #### 2 4339-4 ####GARRY Schmid ([id number])[facility] ([facility])[id number] [place] [address] 24063 Potassium (BldV) [Moles/Vol] 3.6 mmol/L Normal 3.5-5.3 [facility] Comment on above: Performed By: #### 2 4339-4 ####GARRY Schmid ([id number])[facility] ([facility])[id number] [place] [address] 66606 Sodium (BldV) [Moles/Vol] 132 mmol/L Low 136-145 [facility] Comment on above: Performed By: #### 2 4339-4 ####GARRY Schmid ([id number])[facility] ([facility])[id number] [place] [address] 14098 Anion gap 4 (BldV) [Moles/Vol] 7.0 mmol/L Low 10.0 - 25.0 mmol/L [facility] Base excess Calc (BldV) [Moles/Vol] 4.9 mmol/L High -2.0 - 3.0 mmol/L [facility] Calcium.ionized (BldV) [Moles/Vol] 1.18 mmol/L 1.10 - 1.33 mmol/L [facility] Chloride (BldV) [Moles/Vol] 96 mmol/L Low 98 - 107 mmol/L [facility] CO2 (BldV) [Partial pressure] 49 mm[Hg] [facility] Glucose [Mass/Vol] 234 mg/dL High 74 - 99 mg/dL [facility] HCO3 (Bld) [Moles/Vol] 30.4 mmol/L High 22.0 - 26.0 mmol/L [facility] Hematocrit Est (Bld) [Volume fraction] 25.0 % Low 36.0 - 46.0 % [facility] Hemoglobin (Bld) [Mass/Vol] 8.3 g/dL Low 12.0 - 16.0 g/dL [facility] Inhaled oxygen concentration 21 % [facility] Interpretation and review of laboratory results Abnormal [facility] Lactate (BldV) [Moles/Vol] 1.0 mmol/L 0.4 - 2.0 mmol/L [facility] Oxygen (BldV) [Partial pressure] 39 mm[Hg] [facility] Oxygen saturation in Venous blood 64 % 45 - 75 % [facility] Oxyhemoglobin (BldV) [Mass fraction] 62.9 % 45.0 - 75.0 % [facility] pH (BldV) 7.40 [pH] 7.33 - 7.43 pH [facility] Potassium (BldV) [Moles/Vol] 4.5 mmol/L 3.5 - 5.3 mmol/L [facility] Sodium (BldV) [Moles/Vol] 129 mmol/L Low 136 - 145 mmol/L [facility] Anion gap 4 (BldV) [Moles/Vol] 5.0 mmol/L Low 10.0 - 25.0 mmol/L [facility] Base excess Calc (BldV) [Moles/Vol] 7.3 mmol/L High -2.0 - 3.0 mmol/L [facility] Calcium.ionized (BldV) [Moles/Vol] 1.23 mmol/L 1.10 - 1.33 mmol/L [facility] Chloride (BldV) [Moles/Vol] 98 mmol/L 98 - 107 mmol/L [facility] CO2 (BldV) [Partial pressure] 52 mm[Hg] High [facility] Glucose [Mass/Vol] 101 mg/dL High 74 - 99 mg/dL [facility] HCO3 (Bld) [Moles/Vol] 33.0 mmol/L High 22.0 - 26.0 mmol/L [facility] Hematocrit Est (Bld) [Volume fraction] 28.0 % Low 36.0 - 46.0 % [facility] Hemoglobin (Bld) [Mass/Vol] 9.3 g/dL Low 12.0 - 16.0 g/dL [facility] Inhaled oxygen concentration 21 % [facility] Interpretation and review of laboratory results Abnormal [facility] Lactate (BldV) [Moles/Vol] 1.4 mmol/L 0.4 - 2.0 mmol/L [facility] Oxygen (BldV) [Partial pressure] 29 mm[Hg] Low [facility] Oxygen saturation in Venous blood 45 % 45 - 75 % [facility] Oxyhemoglobin (BldV) [Mass fraction] 44.5 % Low 45.0 - 75.0 % [facility] pH (BldV) 7.41 [pH] 7.33 - 7.43 pH [facility] Potassium (BldV) [Moles/Vol] 3.6 mmol/L 3.5 - 5.3 mmol/L [facility] Sodium (BldV) [Moles/Vol] 132 mmol/L Low 136 - 145 mmol/L [facility] Anion gap 4 (BldV) [Moles/Vol] 6.0 mmol/L Low 10.0-25.0 [facility] Comment on above: Performed By: #### 2 4339-4 ####GARRY Schmid ([id number])[facility] ([facility])[id number] [place] [address] Base excess Calc (BldV) [Moles/Vol] 8.4 mmol/L High -2.0-3.0 [facility] Comment on above: Performed By: #### 2 4339-4 ####GARRY Schmid ([id number])[facility] ([facility])[address] [place] [address] Calcium.ionized (BldV) [Moles/Vol] 1.29 mmol/L Normal 1.10-1.33 [facility] Comment on above: Performed By: #### 2 4339-4 ####GARRY Schmid ([id number])[facility] [facility] ([facility])[address] [place] [address] Chloride (BldV) [Moles/Vol] 98 mmol/L Normal 98-107 [facility] Comment on above: Performed By: #### 2 4339-4 ####GARRY Schmid ([id number])[facility] ([facility])[address] [place] [address] CO2 (BldV) [Partial pressure] 54 mm Hg High 41-51 [facility] Comment on above: Performed By: #### 2 4339-4 ####GARRY Schmid ([id number])[facility] ([facility])[address] [place] [address] Glucose [Mass/Vol] 131 mg/dL High 74-99 [facility] Comment on above: Performed By: #### 2 4339-4 ####GARRY Schmid ([id number])[facility] ([facility])[address] [place] [address] HCO3 (Bld) [Moles/Vol] 34.2 mmol/L High 22.0-26.0 [facility] Comment on above: Performed By: #### 2 4339-4 ####GARRY Schmid ([id number])[facility] ([facility])[address] [place] [address] Hematocrit Est (Bld) [Volume fraction] 26.0 % Low 36.0-46.0 [facility] Comment on above: Performed By: #### 2 4339-4 ####GARRY Schmid ([id number])[facility] ([facility])[id number] [place] [address] Hemoglobin (Bld) [Mass/Vol] 8.6 g/dL Low 12.0-16.0 [facility] Comment on above: Performed By: #### 2 4339-4 ####GARRY Schmid ([id number])[facility] ([facility])[address] [place] [address] Inhaled oxygen concentration 21 % Normal [facility] Comment on above: Result Comment: Room Air Performed By: #### 2 4339-4 ####GARRY Schmid ([id number])[facility] ([facility])[address] [place] [address] Lactate (BldV) [Moles/Vol] 3.3 mmol/L High 0.4-2.0 [facility] Comment on above: Performed By: #### 2 4339-4 ####GARRY Schmid ([id number])[facility] ([facility])[id number] [place] [address] Oxygen (BldV) [Partial pressure] 28 mm Hg Low 35-45 [facility] Comment on above: Performed By: #### 2 4339-4 ####GARRY Schmid ([id number])[facility] ([facility])[address] [place] [address] 14074 Oxygen saturation in Venous blood 41 % Low 45-75 [facility] Comment on above: Performed By: #### 2 4339-4 ####GARRY Schmid ([id number])[facility] ([facility])[address] [place] [address] Oxyhemoglobin (BldV) [Mass fraction] 40.8 % Low 45.0-75.0 [facility] Comment on above: Performed By: #### 2 4339-4 ####GARRY Schmid ([id number])[facility] ([facility])[address] [place] [address] pH (BldV) 7.41 [pH] Normal 7.33-7.43 [facility] Comment on above: Performed By: #### 2 4339-4 ####GARRY Schmid ([id number])[facility] ([facility])[address] [place] [address] Potassium (BldV) [Moles/Vol] 3.9 mmol/L Normal 3.5-5.3 [facility] Comment on above: Performed By: #### 2 4339-4 ####GARRY Schmid ([id number])[facility] ([facility])[address] [place] [address] Sodium (BldV) [Moles/Vol] 134 mmol/L Low 136-145 [facility] Comment on above: Performed By: #### 2 4339-4 ####GARRY Schmid ([id number])[facility] ([facility])[address] [place] [address] Anion gap 4 (BldV) [Moles/Vol] 6.0 mmol/L Low 10.0 - 25.0 mmol/L [facility] Base excess Calc (BldV) [Moles/Vol] 8.4 mmol/L High -2.0 - 3.0 mmol/L [facility] Calcium.ionized (BldV) [Moles/Vol] 1.29 mmol/L 1.10 - 1.33 mmol/L [facility] Chloride (BldV) [Moles/Vol] 98 mmol/L 98 - 107 mmol/L [facility] CO2 (BldV) [Partial pressure] 54 mm[Hg] High [facility] Glucose [Mass/Vol] 131 mg/dL High 74 - 99 mg/dL [facility] HCO3 (Bld) [Moles/Vol] 34.2 mmol/L High 22.0 - 26.0 mmol/L [facility] Hematocrit Est (Bld) [Volume fraction] 26.0 % Low 36.0 - 46.0 % [facility] Hemoglobin (Bld) [Mass/Vol] 8.6 g/dL Low 12.0 - 16.0 g/dL [facility] Inhaled oxygen concentration 21 % [facility] Interpretation and review of laboratory results Abnormal [facility] Lactate (BldV) [Moles/Vol] 3.3 mmol/L High 0.4 - 2.0 mmol/L [facility] Oxygen (BldV) [Partial pressure] 28 mm[Hg] Low [facility] Oxygen saturation in Venous blood 41 % Low 45 - 75 % [facility] Oxyhemoglobin (BldV) [Mass fraction] 40.8 % Low 45.0 - 75.0 % [facility] pH (BldV) 7.41 [pH] 7.33 - 7.43 pH [facility] Potassium (BldV) [Moles/Vol] 3.9 mmol/L 3.5 - 5.3 mmol/L [facility] Sodium (BldV) [Moles/Vol] 134 mmol/L Low 136 - 145 mmol/L [facility] Anion gap 4 (BldV) [Moles/Vol] 13.0 mmol/L Normal 10.0-25.0 [facility] Comment on above: Performed By: #### 2 4339-4 ####GARRY Schmid ([id number])[facility] ([facility])[address] [place] [address] Base excess Calc (BldV) [Moles/Vol] 4.0 mmol/L High -2.0-3.0 [facility] Comment on above: Performed By: #### 2 4339-4 ####GARRY Schmid ([id number])[facility] ([facility])[id number] [place] [address] Calcium.ionized (BldV) [Moles/Vol] 1.31 mmol/L Normal 1.10-1.33 [facility] Comment on above: Performed By: #### 2 4339-4 ####GARRY Schmid ([id number])[facility] ([facility])[id number] [place] [address] Chloride (BldV) [Moles/Vol] 91 mmol/L Low 98-107 [facility] Comment on above: Performed By: #### 2 4339-4 ####GARRY Schmid ([id number])[facility] ([facility])[address] [place] [address] CO2 (BldV) [Partial pressure] 46 mm Hg Normal 41-51 [facility] Comment on above: Performed By: #### 2 4339-4 ####GARRY Schmid ([id number])[facility] ([facility])[id number] [place] [address]23 Glucose [Mass/Vol] 629 mg/dL Critically high 74-99 [facility] Comment on above: Performed By: #### 2 4339-4 ####GARRY Schmid ([id number])[facility] ([facility])[address] [place] [address] HCO3 (Bld) [Moles/Vol] 29.2 mmol/L High 22.0-26.0 [facility] Comment on above: Performed By: #### 2 4339-4 ####GARRY Schmid ([id number])[facility] ([facility])[address] [place] [address] Hematocrit Est (Bld) [Volume fraction] 28.0 % Low 36.0-46.0 [facility] Comment on above: Performed By: #### 2 4339-4 ####GARRY Schmid ([id number])[facility] ([facility])[address] [place] [address] 14958 Hemoglobin (Bld) [Mass/Vol] 9.3 g/dL Low 12.0-16.0 [facility] Comment on above: Performed By: #### 2 4339-4 ####GARRY Schmid ([id number])[facility] ([facility])[address] [place] [address] 58767 Inhaled oxygen concentration 21 % Normal [facility] Comment on above: Performed By: #### 2 4339-4 ####GARRY Schmid ([id number])[facility] ([facility])[address] [place] [address] Oxygen (BldV) [Partial pressure] 54 mm Hg High 35-45 [facility] Comment on above: Performed By: #### 2 4339-4 ####GARRY Schmid ([id number])[facility] ([facility])[address] [place] [address] Oxygen saturation in Venous blood 86 % High 45-75 [facility] Comment on above: Performed By: #### 2 4339-4 ####GARRY Schmid ([id number])[facility] ([facility])[address] [place] [address]11 Oxyhemoglobin (BldV) [Mass fraction] 84.6 % High 45.0-75.0 [facility] Comment on above: Performed By: #### 2 4339-4 ####GARRY Schmid ([id number])[facility] ([facility])[address] [place] [address] 69696 pH (BldV) 7.41 [pH] Normal 7.33-7.43 [facility] Comment on above: Performed By: #### 2 4339-4 ####GARRY Schmid ([id number])[facility] ([facility])[address] [place] [address] Potassium (BldV) [Moles/Vol] 4.1 mmol/L Normal 3.5-5.3 [facility] Comment on above: Performed By: #### 2 4339-4 ####GARRY Schmid ([id number])[facility] ([facility])[address] [place] [address] 04607 Sodium (BldV) [Moles/Vol] 129 mmol/L Low 136-145 [facility] Comment on above: Performed By: #### 2 4339-4 ####GARRY Schmid ([id number])[facility] ([facility])[id number] [place] [address] 15008 Anion gap 4 (BldV) [Moles/Vol] 20.0 mmol/L Normal 10.0-25.0 [facility] Comment on above: Performed By: #### 2 4339-4 ####GARRY Schmid ([id number])[facility] ([facility])[address] [place] [address] Base excess Calc (BldV) [Moles/Vol] -1.4000 mmol/L Normal -2.0-3.0 [facility] Comment on above: Performed By: #### 2 4339-4 ####GARRY Schmid ([id number])[facility] ([facility])[address] [place] [address] Calcium.ionized (BldV) [Moles/Vol] 1.30 mmol/L Normal 1.10-1.33 [facility] Comment on above: Performed By: #### 2 4339-4 ####GARRY Schmid ([id number])[facility] ([facility])[id number] [place] [address] 28946 Chloride (BldV) [Moles/Vol] 87 mmol/L Low 98-107 [facility] Comment on above: Performed By: #### 2 4339-4 ####GARRY Schmid ([id number])[facility] ([facility])[address] [place] [address] 71727 CO2 (BldV) [Partial pressure] 44 mm Hg Normal 41-51 [facility] Comment on above: Performed By: #### 2 4339-4 ####GARRY Schmid ([id number])[facility] ([facility])[address] [place] [address] 42823 Glucose [Mass/Vol] mg/dL Critically high 74-99 [facility] Comment on above: Performed By: #### 2 4339-4 ####GARRY Schmid ([id number])[facility] ([facility])[id number] [place] [address] 01434 HCO3 (Bld) [Moles/Vol] 24.3 mmol/L Normal 22.0-26.0 [facility] Comment on above: Performed By: #### 2 4339-4 ####GARRY Schmid ([id number])[facility] ([facility])[address] [place] [address] Hematocrit Est (Bld) [Volume fraction] 29.0 % Low 36.0-46.0 [facility] Comment on above: Performed By: #### 2 4339-4 ####GARRY Schmid ([id number])[facility] ([facility])[address] [place] [address] Hemoglobin (Bld) [Mass/Vol] 9.8 g/dL Low 12.0-16.0 [facility] Comment on above: Performed By: #### 2 4339-4 ####GARRY Schmid ([id number])[facility] ([facility])[address] [place] [address] 43376 Inhaled oxygen concentration 21 % Normal [facility] Comment on above: Performed By: #### 2 4339-4 ####GARRY Schmid ([id number])[facility] ([facility])[id number] [place] [address] 76455 Lactate (BldV) [Moles/Vol] 4.7 mmol/L Critically high 0.4-2.0 [facility] Comment on above: Result Comment: Prev ious result verified on 11/01/2023 0129 on specimen/case [id number] called with component POCT LACTATE, Venous for procedure Blood Gas Venous Full Panel with value 4.9 mmol/L. Performed By: #### 2 4339-4 ####GARRY Schmid ([id number])[facility] ([facility])[id number] [place] [address] 18815 Oxygen (BldV) [Partial pressure] 44 mm Hg Normal 35-45 [facility] Comment on above: Performed By: #### 2 4339-4 ####GARRY Schmid ([id number])[facility] ([facility])[address] [place] [address] Oxygen saturation in Venous blood 71 % Normal 45-75 [facility] Comment on above: Performed By: #### 2 4339-4 ####GARRY Schmid ([id number])[facility] ([facility])[id number] [place] [address] 72844 Oxyhemoglobin (BldV) [Mass fraction] 69.4 % Normal 45.0-75.0 [facility] Comment on above: Performed By: #### 2 4339-4 ####GARRY Schmid ([id number])[facility] ([facility])[id number] [place] [address] 98236 pH (BldV) 7.35 [pH] Normal 7.33-7.43 [facility] Comment on above: Performed By: #### 2 4339-4 ####GARRY Schmid ([id number])[facility] ([facility])[address] [place] [address] 26312 Potassium (BldV) [Moles/Vol] 4.3 mmol/L Normal 3.5-5.3 [facility] Comment on above: Performed By: #### 2 4339-4 ####GARRY Schmid ([id number])[facility] ([facility])[id number] [place] [address] 42286 Sodium (BldV) [Moles/Vol] 127 mmol/L Low 136-145 [facility] Comment on above: Performed By: #### 2 4339-4 ####GARRY Schmid ([id number])[facility] ([facility])[address] [place] [address] 54869 Anion gap 4 (BldV) [Moles/Vol] 13.0 mmol/L 10.0 - 25.0 mmol/L [facility] Base excess Calc (BldV) [Moles/Vol] 4.0 mmol/L High -2.0 - 3.0 mmol/L [facility] Calcium.ionized (BldV) [Moles/Vol] 1.31 mmol/L 1.10 - 1.33 mmol/L [facility] Chloride (BldV) [Moles/Vol] 91 mmol/L Low 98 - 107 mmol/L [facility] CO2 (BldV) [Partial pressure] 46 mm[Hg] [facility] Glucose [Mass/Vol] 629 mg/dL Critically high 74 - 9 9 mg/dL [facility] HCO3 (Bld) [Moles/Vol] 29.2 mmol/L High 22.0 - 26.0 mmol/L [facility] Hematocrit Est (Bld) [Volume fraction] 28.0 % Low 36.0 - 46.0 % [facility] Hemoglobin (Bld) [Mass/Vol] 9.3 g/dL Low 12.0 - 16.0 g/dL [facility] Inhaled oxygen concentration 21 % [facility] Oxygen (BldV) [Partial pressure] 54 mm[Hg] High [facility] Oxygen saturation in Venous blood 86 % High 45 - 75 % [facility] Oxyhemoglobin (BldV) [Mass fraction] 84.6 % High 45.0 - 75.0 % [facility] pH (BldV) 7.41 [pH] 7.33 - 7.43 pH [facility] Potassium (BldV) [Moles/Vol] 4.1 mmol/L 3.5 - 5.3 mmol/L [facility] Sodium (BldV) [Moles/Vol] 129 mmol/L Low 136 - 145 mmol/L [facility] Anion gap 4 (BldV) [Moles/Vol] 20.0 mmol/L 10.0 - 25.0 mmol/L [facility] Base excess Calc (BldV) [Moles/Vol] -1.4000 mmol/L -2.0 - 3.0 mmol/L [facility] Calcium.ionized (BldV) [Moles/Vol] 1.30 mmol/L 1.10 - 1.33 mmol/L [facility] Chloride (BldV) [Moles/Vol] 87 mmol/L Low 98 - 107 mmol/L [facility] CO2 (BldV) [Partial pressure] 44 mm[Hg] [facility] Glucose [Mass/Vol] mg/dL Critically high 74 - 9 9 mg/dL [facility] HCO3 (Bld) [Moles/Vol] 24.3 mmol/L 22.0 - 26.0 mmol/L [facility] Hematocrit Est (Bld) [Volume fraction] 29.0 % Low 36.0 - 46.0 % [facility] Hemoglobin (Bld) [Mass/Vol] 9.8 g/dL Low 12.0 - 16.0 g/dL [facility] Inhaled oxygen concentration 21 % [facility] Interpretation and review of laboratory results Abnormal [facility] Lactate (BldV) [Moles/Vol] 4.7 mmol/L Critically high 0.4 - 2.0 mmol/L [facility] Oxygen (BldV) [Partial pressure] 44 mm[Hg] [facility] Oxygen saturation in Venous blood 71 % 45 - 75 % [facility] Oxyhemoglobin (BldV) [Mass fraction] 69.4 % 45.0 - 75.0 % [facility] pH (BldV) 7.35 [pH] 7.33 - 7.43 pH [facility] Potassium (BldV) [Moles/Vol] 4.3 mmol/L 3.5 - 5.3 mmol/L [facility] Sodium (BldV) [Moles/Vol] 127 mmol/L Low 136 - 145 mmol/L [facility] Anion gap 4 (BldV) [Moles/Vol] 30.0 mmol/L High 10.0-25.0 [facility] Comment on above: Performed By: #### 2 4339-4 ####GARRY Schmid ([id number])[facility] ([facility])[address] [place] [address] 62869 Base excess Calc (BldV) [Moles/Vol] -9.7000 mmol/L Low -2.0-3.0 [facility] Comment on above: Performed By: #### 2 4339-4 ####GARRY Schmid ([id number])[facility] ([facility])[id number] [place] [address] 26754 Calcium.ionized (BldV) [Moles/Vol] 1.21 mmol/L Normal 1.10-1.33 [facility] Comment on above: Performed By: #### 2 4339-4 ####GARRY Schmid ([id number])[facility] ([facility])[id number] [place] [address] 52096 Chloride (BldV) [Moles/Vol] 79 mmol/L Low 98-107 [facility] Comment on above: Performed By: #### 2 4339-4 ####GARRY Schmid ([id number])[facility] ([facility])[address] [place] [address] CO2 (BldV) [Partial pressure] 37 mm Hg Low 41-51 [facility] Comment on above: Performed By: #### 2 4339-4 ####GARRY Schmid ([id number])[facility] ([facility])[address] [place] [address] Glucose [Mass/Vol] mg/dL Critically high 74-99 [facility] Comment on above: Performed By: #### 2 4339-4 ####GARRY Schmid ([id number])[facility] ([facility])[address] [place] [address] HCO3 (Bld) [Moles/Vol] 16.6 mmol/L Low 22.0-26.0 [facility] Comment on above: Performed By: #### 2 4339-4 ####GARRY Schmid ([id number])[facility] ([facility])[address] [place] [address] Hematocrit Est (Bld) [Volume fraction] 29.0 % Low 36.0-46.0 [facility] Comment on above: Performed By: #### 2 4339-4 ####GARRY Schmid ([id number])[facility] ([facility])[address] [place] [address] Hemoglobin (Bld) [Mass/Vol] 9.7 g/dL Low 12.0-16.0 [facility] Comment on above: Performed By: #### 2 4339-4 ####GARRY Schmid ([id number])[facility] ([facility])[address] [place] [address] Inhaled oxygen concentration 21 % Normal [facility] Comment on above: Performed By: #### 2 4339-4 ####GARRY Schmid ([id number])[facility] ([facility])[id number] [place] [address] 48661 Lactate (BldV) [Moles/Vol] 4.9 mmol/L Critically high 0.4-2.0 [facility] Comment on above: Performed By: #### 2 4339-4 ####GARRY Schmid ([id number])[facility] ([facility])[id number] [place] [address] 22292 Oxygen (BldV) [Partial pressure] 40 mm Hg Normal 35-45 [facility] Comment on above: Performed By: #### 2 4339-4 ####GARRY Schmid ([id number])[facility] ([facility])[address] [place] [address] 55167 Oxygen saturation in Venous blood 50 % Normal 45-75 [facility] Comment on above: Performed By: #### 2 4339-4 ####GARRY Schmid ([id number])[facility] ([facility])[address] [place] [address] 89656 Oxyhemoglobin (BldV) [Mass fraction] 50.1 % Normal 45.0-75.0 [facility] Comment on above: Performed By: #### 2 4339-4 ####GARRY Schmid ([id number])[facility] ([facility])[address] [place] [address] 84548 pH (BldV) 7.26 [pH] Low 7.33-7.43 [facility] Comment on above: Performed By: #### 2 4339-4 ####GARRY Schmid ([id number])[facility] ([facility])[address] [place] [address] 81287 Potassium (BldV) [Moles/Vol] 6.7 mmol/L Critically high 3.5-5.3 [facility] Comment on above: Performed By: #### 2 4339-4 ####GARRY Schmid ([id number])[facility] ([facility])[address] [place] [address] 13065 Sodium (BldV) [Moles/Vol] 119 mmol/L Critically low 136-145 [facility] Comment on above: Performed By: #### 2 4339-4 ####GARRY Schmid ([id number])[facility] ([facility])[address] [place] [address] Anion gap 4 (BldV) [Moles/Vol] 30.0 mmol/L High 10.0 - 25.0 mmol/L [facility] Base excess Calc (BldV) [Moles/Vol] -9.7000 mmol/L Low -2.0 - 3.0 mmol/L [facility] Calcium.ionized (BldV) [Moles/Vol] 1.21 mmol/L 1.10 - 1.33 mmol/L [facility] Chloride (BldV) [Moles/Vol] 79 mmol/L Low 98 - 107 mmol/L [facility] CO2 (BldV) [Partial pressure] 37 mm[Hg] Low [facility] Glucose [Mass/Vol] mg/dL Critically high 74 - 9 9 mg/dL [facility] HCO3 (Bld) [Moles/Vol] 16.6 mmol/L Low 22.0 - 26.0 mmol/L [facility] Hematocrit Est (Bld) [Volume fraction] 29.0 % Low 36.0 - 46.0 % [facility] Hemoglobin (Bld) [Mass/Vol] 9.7 g/dL Low 12.0 - 16.0 g/dL [facility] Inhaled oxygen concentration 21 % [facility] Interpretation and review of laboratory results Abnormal [facility] Lactate (BldV) [Moles/Vol] 4.9 mmol/L Critically high 0.4 - 2.0 mmol/L [facility] Oxygen (BldV) [Partial pressure] 40 mm[Hg] [facility] Oxygen saturation in Venous blood 50 % 45 - 75 % [facility] Oxyhemoglobin (BldV) [Mass fraction] 50.1 % 45.0 - 75.0 % [facility] pH (BldV) 7.26 [pH] Low 7.33 - 7.43 pH [facility] Potassium (BldV) [Moles/Vol] 6.7 mmol/L Critically high 3.5 - 5.3 mmol/L [facility] Sodium (BldV) [Moles/Vol] 119 mmol/L Critically low 136 - 145 mmol/L [facility] Glucose Test strip manual (B ld) [Mass/Vol]on 11-01-2023 Glucose [Mass/Vol] 184 mg/dL High 74 - 99 mg/dL [facility] Interpretation and review of laboratory results Abnormal [facility] Glucose [Mass/Vol] 220 mg/dL High 74-99 [facility] Comment on above: Performed By: #### 2 341-6 ####GARRY Schmid ([id number])[facility] ([facility])[id number] [place] [address] 12[address] Glucose [Mass/Vol] 251 mg/dL High 7499 [facility] Comment on above: Performed By: #### 2 341-6 ####GARRY Schmid ([id number])[facility] ([facility])[address] [place] [address] Glucose [Mass/Vol] 220 mg/dL High 74 - 99 mg/dL [facility] Interpretation and review of laboratory results Abnormal [facility] Glucose [Mass/Vol] 282 mg/dL High 7499 [facility] Comment on above: Performed By: #### 2 341-6 ####GARRY Schmid ([id number])[facility] ([facility])[address] [place] [address] Glucose [Mass/Vol] 251 mg/dL High 74 - 99 mg/dL [facility] Interpretation and review of laboratory results Abnormal [facility] Glucose [Mass/Vol] 310 mg/dL High 74-99 [facility] Comment on above: Performed By: #### 2 341-6 ####GARRY Schmid ([id number])[facility] ([facility])[id number] [place] [address] Glucose [Mass/Vol] 193 mg/dL High [address] Comment on above: Performed By: #### 2 341-6 ####GARRY Schmid ([id number])[facility] ([facility])[address] [place] [address] Glucose [Mass/Vol] 282 mg/dL High 74 - 99 mg/dL [facility] Interpretation and review of laboratory results Abnormal [facility] Glucose [Mass/Vol] 310 mg/dL High 74 - 99 mg/dL [facility] Interpretation and review of laboratory results Abnormal [facility] Glucose [Mass/Vol] 158 mg/dL High 74-99 [facility] Comment on above: Performed By: #### 2 341-6 ####GARRY Schmid ([id number])[facility] ([facility])[address] [place] [address] Glucose [Mass/Vol] 137 mg/dL High 74-99 [facility] Comment on above: Performed By: #### 2 341-6 ####GARRY Schmid ([id number])[facility] ([facility])[address] [place] [address] 31695 Glucose [Mass/Vol] 193 mg/dL High 74 - 99 mg/dL [facility] Interpretation and review of laboratory results Abnormal [facility] Glucose [Mass/Vol] 99 mg/dL Normal 74-99 [facility] Comment on above: Performed By: #### 2 341-6 ####GARRY Schmid ([id number])[facility] ([facility])[address] [place] [address] Glucose [Mass/Vol] 158 mg/dL High 74 - 99 mg/dL [facility] Interpretation and review of laboratory results Abnormal [facility] Glucose [Mass/Vol] 137 mg/dL High 74 - 99 mg/dL [facility] Interpretation and review of laboratory results Abnormal [facility] Glucose [Mass/Vol] 124 mg/dL High 74-99 [facility] Comment on above: Performed By: #### 2 341-6 ####GARRY Schmid ([id number])[facility] ([facility])[address] [place] [address] Glucose [Mass/Vol] 123 mg/dL High 74-99 [facility] Comment on above: Performed By: #### 2 341-6 ####GARRY Schmid ([id number])[facility] ([facility])[address] [place] [address] Glucose [Mass/Vol] 99 mg/dL 74 - 99 mg/dL [facility] Interpretation and review of laboratory results Normal [facility] Glucose [Mass/Vol] 124 mg/dL High 74 - 99 mg/dL [facility] Interpretation and review of laboratory results Abnormal [facility] Glucose [Mass/Vol] 126 mg/dL High 74-99 [facility] Comment on above: Performed By: #### 2 341-6 ####GARRY Schmid ([id number])[facility] ([facility])[address] [place] [address] Glucose [Mass/Vol] 123 mg/dL High 74 - 99 mg/dL [facility] Interpretation and review of laboratory results Abnormal [facility] Glucose [Mass/Vol] 269 mg/dL High 74-99 [facility] Comment on above: Performed By: #### 2 341-6 ####GARRY Schmid ([id number])[facility] ([facility])[address] [place] [address] Glucose [Mass/Vol] 126 mg/dL High 74 - 99 mg/dL [facility] Interpretation and review of laboratory results Abnormal [facility] Glucose [Mass/Vol] 319 mg/dL High 74-99 [facility] Comment on above: Performed By: #### 2 341-6 ####GARRY Schmid ([id number])[facility] ([facility])[address] [place] [address] Glucose [Mass/Vol] 444 mg/dL High 74-99 [facility] Comment on above: Performed By: #### 2 341-6 ####GARRY Schmid ([id number])[facility] ([facility])[address] [place] [address] Glucose [Mass/Vol] 269 mg/dL High 74 - 99 mg/dL [facility] Interpretation and review of laboratory results Abnormal [facility] Glucose [Mass/Vol] 319 mg/dL High 74 - 99 mg/dL [facility] Interpretation and review of laboratory results Abnormal [facility] Glucose [Mass/Vol] 444 mg/dL High 74 - 99 mg/dL [facility] Interpretation and review of laboratory results Abnormal [facility] Glucose [Mass/Vol] mg/dL High 74 - 99 mg/dL [facility] Interpretation and review of laboratory results Abnormal [facility] Glucose [Mass/Vol] mg/dL High 74-99 [facility] Comment on above: Performed By: #### 2 341-6 ####GARRY Schmid ([id number])[facility] ([facility])[address] [place] [address] Glucose [Mass/Vol] mg/dL High 74-99 [facility] Comment on above: Performed By: #### 2 341-6 ####GARRY Schmid ([id number])[facility] ([facility])[address] [place] [address] Glucose [Mass/Vol] mg/dL High 74-99 [facility] Comment on above: Performed By: #### 2 341-6 ####GARRY Schmid ([id number])[facility] ([facility])[address] [place] [address] Glucose [Mass/Vol] mg/dL High 74-99 [facility] Comment on above: Result Comment: RN/M D NOTIFIED Performed By: #### 2 341-6 ####GARRY Schmid ([id number])[facility] ([facility])[address] [place] [address] Glucose [Mass/Vol] mg/dL High 74 - 99 mg/dL [facility] Interpretation and review of laboratory results Abnormal [facility] Glucose [Mass/Vol] mg/dL High 74 - 99 mg/dL [facility] Interpretation and review of laboratory results Abnormal [facility] Glucose [Mass/Vol] mg/dL High 74 - 99 mg/dL [facility] Interpretation and review of laboratory results Abnormal [facility] Hepatic function 2000 panelo n 11-01-2023 Albumin BCP dye [Mass/Vol] 2.8 g/dL Low 3.4-5.0 [facility] Comment on above: Performed By: #### 2 4325-3 ####GARRY Schmid ([id number])[facility] ([facility])[address] [place] [address] ALP [Catalytic activity/Vol] 123 U/L High 33-110 [facility] Comment on above: Performed By: #### 2 9485-3 ####GARRY Schmid ([id number])[facility] ([facility])[address] [place] [address] ALT With P-5'-P [Catalytic activity/Vol] 12 U/L Normal 7-45 [facility] Comment on above: Result Comment: Gianna ents treated with Sulfasalazine may generate falsely decreased results for ALT. Performed By: #### 2 6465-3 ####GARRY Schmid ([id number])[facility] ([facility])[address] [place] [address] AST With P-5'-P [Catalytic activity/Vol] 18 U/L Normal 9-39 [facility] Comment on above: Performed By: #### 2 4325-3 ####GARRY Schmid ([id number])[facility] ([facility])[address] [place] [address] Bilirubin [Mass/Vol] 0.2 mg/dL Normal 0.0-1.2 [facility] Comment on above: Performed By: #### 2 4325-3 ####GARRY Schmid ([id number])[facility] ([facility])[address] [place] [address] Bilirubin.direct [Mass/Vol] 0.0 mg/dL Normal 0.0-0.3 [facility] Comment on above: Performed By: #### 2 4325-3 ####GARRY Schmid ([id number])[facility] ([facility])[address] [place] [address] Protein [Mass/Vol] 6.6 g/dL Normal 6.4-8.2 [facility] Comment on above: Performed By: #### 2 4325-3 ####GARRY Schmid ([id number])[facility] ([facility])[address] [place] [address] Albumin BCP dye [Mass/Vol] 2.8 g/dL Low 3.4 - 5.0 g/dL [facility] ALP [Catalytic activity/Vol] 123 U/L High 33 - 110 U/L [facility] ALT With P-5'-P [Catalytic activity/Vol] 12 U/L 7 - 45 U/L [facility] AST With P-5'-P [Catalytic activity/Vol] 18 U/L 9 - 39 U/L [facility] Bilirubin [Mass/Vol] 0.2 mg/dL 0.0 - 1 .2 mg/dL [facility] Bilirubin.direct [Mass/Vol] 0.0 mg/dL 0.0 - 0.3 mg/dL [facility] Interpretation and review of laboratory results Abnormal [facility] Protein [Mass/Vol] 6.6 g/dL 6.4 - 8.2 g/dL [facility] - Chemistry and C hemistry - challengeon 11-01-2023 Lactate (BldV) [Moles/Vol] 3.2 mmol/L High 0.4 - 2.0 mmol/L [facility] Lactateon 11-01-2023 Lactate (BldV) [Moles/Vol] 4.0 mmol/L Critically high 0.4-2.0 [facility] Comment on above: Result Comment: Prev ious result verified on 11/01/2023 0129 on specimen/case [id number] called with component POCT LACTATE, Venous for procedure Blood Gas Venous Full Panel with value 4.9 mmol/L. Performed By: #### 2 519-7 ####GARRY Schmid ([id number])[facility] ([facility])[address] [place] [address] Lactate (BldV) [Moles/Vol]on 11-01-2023 Interpretation and review of laboratory results Abnormal [facility] Magnesiumon 11-01-2023 Magnesium [Mass/Vol] 1.66 mg/dL Normal 1.60-2.40 [facility] Comment on above: Performed By: #### 1 9123-9 ####GARRY Schmid ([id number])[facility] ([facility])[address] [place] [address] Magnesium [Mass/Vol] 1.66 mg/dL 1.60 - 2.40 mg/dL [facility] Magnesium [Mass/Vol] 1.63 mg/dL Normal 1.60-2.40 [facility] Comment on above: Performed By: #### 1 9123-9 ####GARRY Schmid ([id number])[facility] ([facility])[address] [place] [address] Magnesium [Mass/Vol] 1.63 mg/dL 1.60 - 2.40 mg/dL [facility] Magnesium [Mass/Vol] 1.73 mg/dL Normal 1.60-2.40 [facility] Comment on above: Performed By: #### 1 9123-9 ####GARRY Schmid ([id number])[facility] ([facility])[address] [place] [address] Magnesium [Mass/Vol] 1.73 mg/dL 1.60 - 2.40 mg/dL [facility] Magnesium [Mass/Vol] 2.05 mg/dL Normal 1.60-2.40 [facility] Comment on above: Performed By: #### 1 9123-9 ####GARRY Schmid ([id number])[facility] ([facility])[address] [place] [address] Magnesium [Mass/Vol] 2.05 mg/dL 1.60 - 2.40 mg/dL [facility] Magnesium [Mass/Vol] 2.11 mg/dL Normal 1.60-2.40 [facility] Comment on above: Performed By: #### 1 9123-9 ####GARRY Schmid ([id number])[facility] ([facility])[address] [place] [address] Magnesium [Mass/Vol] 2.11 mg/dL 1.60 - 2.40 mg/dL [facility] Magnesium [Mass/Vol]on 11-01 Interpretation and review of laboratory results Normal [facility] Interpretation and review of laboratory results Normal [facility] Interpretation and review of laboratory results Normal [facility] Interpretation and review of laboratory results Normal [facility] Interpretation and review of laboratory results Normal [facility] No Panel Informationon 11-[address] [facility] Interpretation and review of laboratory results Abnormal [facility] Interpretation and review of laboratory results Abnormal [facility] PT and aPTT panel Coag (PPP) on 11-01-2023 aPTT Coag (PPP) [Time] 32 s Normal 27-38 [facility] Comment on above: Order Comment: The A PTT is no longer used for monitoring Unfractionated Heparin Therapy. For monitoring Heparin Therapy, use the Heparin Assay. Performed By: #### 3 4529-8 ####GARRY Schmid ([id number])[facility] ([facility])[address] [place] [address] INR Coag (PPP) [Relative time] 1.1 Normal 0.9-1.1 [facility] Comment on above: Order Comment: The A PTT is no longer used for monitoring Unfractionated Heparin Therapy. For monitoring Heparin Therapy, use the Heparin Assay. Performed By: #### 3 4529-8 ####GARRY Schmid ([id number])[facility] ([facility])[address] [place] [address] PT Coag (PPP) [Time] 12.8 s Normal 9.8-12.8 [facility] Comment on above: Order Comment: The A PTT is no longer used for monitoring Unfractionated Heparin Therapy. For monitoring Heparin Therapy, use the Heparin Assay. Performed By: #### 3 4529-8 ####GARRY Schmid ([id number])[facility] ([facility])[address] [place] [address] Phosphateon 11-01-2023 Phosphate [Mass/Vol] 5.1 mg/dL High 2.5-4.9 [facility] Comment on above: Result Comment: The performance characteristics of phosphorus testing in heparinized plasma have been validated by the individual laboratory site where testing is performed. Testing on heparinized plasma is not approved by the FDA; however, such approval is not necessary. Performed By: #### 2 777-1 ####GARRY Schmid ([id number])[facility] ([facility])[address] [place] [address] Phosphoruson 11-01-2023 Phosphate [Mass/Vol] 5.1 mg/dL High 2.5 - 4 .9 mg/dL [facility] Renal function 2000 panelon 11-01-2023 Albumin BCP dye [Mass/Vol] 2.4 g/dL Low 3.4-5.0 [facility] Comment on above: Performed By: #### 2 4362-6 ####GARRY Schmid ([id number])[facility] ([facility])[address] [place] [address] Anion gap [Moles/Vol] 12 mmol/L Normal 10-20 [facility] Comment on above: Performed By: #### 2 4362-6 ####GARRY Schmid ([id number])[facility] ([facility])[address] [place] [address] Calcium [Mass/Vol] 7.8 mg/dL Low 8.6-10.6 [facility] Comment on above: Performed By: #### 2 4362-6 ####GARRY Schmid ([id number])[facility] ([facility])[address] [place] [address] Chloride [Moles/Vol] 96 mmol/L Low 98-107 [facility] Comment on above: Performed By: #### 2 4362-6 ####GARRY Schmid ([id number])[facility] ([facility])[address] [place] [address] CO2 [Moles/Vol] 29 mmol/L Normal 21-32 [facility] Comment on above: Performed By: #### 2 4362-6 ####GARRY Schmid ([id number])[facility] ([facility])[address] [place] [address] Creatinine [Mass/Vol] 0.72 mg/dL Normal 0.50-1.05 [facility] Comment on above: Performed By: #### 2 4362-6 ####GARRY Schmid ([id number])[facility] ([facility])[address] [place] [address] GFR/1.73 sq M.predicted MDRD (S/P/Bld) [Vol rate/Area] mL/min/{1.73_m2} Normal >60 [facility] Comment on above: Result Comment: Calc ulations of estimated GFR are performed using the 2020 CKD-EPI Study Refit equation without the race variable for the IDMS-Traceable creatinine methods.https://jasn.asnjournals.org/content// N.2012845522 Performed By: #### 2 4362-6 ####GARRY Schmid ([id number])[facility] ([facility])[address] [place] [address] Glucose [Mass/Vol] 190 mg/dL High 74-99 [facility] Comment on above: Performed By: #### 2 4362-6 ####GARRY Schmid ([id number])[facility] ([facility])[address] [place] [address] Phosphate [Mass/Vol] 1.5 mg/dL Low 2.5-4.9 [facility] Comment on above: Result Comment: The performance characteristics of phosphorus testing in heparinized plasma have been validated by the individual laboratory site where testing is performed. Testing on heparinized plasma is not approved by the FDA; however, such approval is not necessary. Performed By: #### 2 4362-6 ####GARRY Schmid ([id number])[facility] ([facility])[address] [place] [address] Potassium [Moles/Vol] 3.7 mmol/L Normal 3.5-5.3 [facility] Comment on above: Performed By: #### 2 4362-6 ####GRARY Schmid ([id number])[facility] ([facility])[address] [place] [address] Sodium [Moles/Vol] 133 mmol/L Low 136-145 [facility] Comment on above: Performed By: #### 2 4362-6 ####GARRY Schmid ([id number])[facility] ([facility])[address] [place] [address] Urea nitrogen [Mass/Vol] 9 mg/dL Normal 6-23 [facility] Comment on above: Performed By: #### 2 4362-6 ####GARRY Schmid ([id number])[facility] ([facility])[address] [place] [address] Albumin BCP dye [Mass/Vol] 2.4 g/dL Low 3.4 - 5.0 g/dL [facility] Anion gap [Moles/Vol] 12 mmol/L 10 - 2 0 mmol/L [facility] Calcium [Mass/Vol] 7.8 mg/dL Low 8.6 - 10. 6 mg/dL [facility] Chloride [Moles/Vol] 96 mmol/L Low 98 - 10 7 mmol/L [facility] CO2 [Moles/Vol] 29 mmol/L 21 - 32 mmol/L [facility] Creatinine [Mass/Vol] 0.72 mg/dL 0.50 - 1.05 mg/dL [facility] eGFR - PINF [facility] Glucose [Mass/Vol] 190 mg/dL High 74 - 99 mg/dL [facility] Interpretation and review of laboratory results Abnormal [facility] Phosphate [Mass/Vol] 1.5 mg/dL Low 2.5 - 4 .9 mg/dL [facility] Potassium [Moles/Vol] 3.7 mmol/L 3.5 - 5.3 mmol/L [facility] Sodium [Moles/Vol] 133 mmol/L Low 136 - 145 mmol/L [facility] Urea nitrogen [Mass/Vol] 9 mg/dL 6 - 23 mg/dL [facility] Albumin BCP dye [Mass/Vol] 2.4 g/dL Low 3.4-5.0 [facility] Comment on above: Performed By: #### 2 4362-6 ####GARRY Schmid ([id number])[facility] ([facility])[address] [place] [address] Anion gap [Moles/Vol] 12 mmol/L Normal 10-20 [facility] Comment on above: Performed By: #### 2 4362-6 ####GARRY Schmid ([id number])[facility] ([facility])[address] [place] [address] Calcium [Mass/Vol] 8.0 mg/dL Low 8.6-10.6 [facility] Comment on above: Performed By: #### 2 4362-6 ####GARRY NGMOTZLEIGH L ([id number])[facility] ([facility])[address] [place] [address] Chloride [Moles/Vol] 93 mmol/L Low 98-107 [facility] Comment on above: Performed By: #### 2 4362-6 ####GARRY PEREZ L ([id number])[facility] ([facility])[address] [place] [address] CO2 [Moles/Vol] 29 mmol/L Normal 21-32 [facility] Comment on above: Performed By: #### 2 4362-6 ####GARRY Schmid ([id number])[facility] ([facility])[address] [place] [address] Creatinine [Mass/Vol] 0.74 mg/dL Normal 0.50-1.05 [facility] Comment on above: Performed By: #### 2 4362-6 ####GARRY Schmid ([id number])[facility] ([facility])[address] [place] [address] GFR/1.73 sq M.predicted MDRD (S/P/Bld) [Vol rate/Area] mL/min/{1.73_m2} Normal >60 [facility] Comment on above: Result Comment: Calc ulations of estimated GFR are performed using the 2020 CKD-EPI Study Refit equation without the race variable for the IDMS-Traceable creatinine methods.https://jasn.asnjournals.org/content/early// N.0149124928 Performed By: #### 2 4362-6 ####GARRY Schmid ([id number])[facility] ([facility])[address] [place] [address] Glucose [Mass/Vol] 319 mg/dL High 74-99 [facility] Comment on above: Performed By: #### 2 4362-6 ####GARRY Schmid ([id number])[facility] ([facility])[address] [place] [address] Phosphate [Mass/Vol] 2.5 mg/dL Normal 2.5-4.9 [facility] Comment on above: Result Comment: The performance characteristics of phosphorus testing in heparinized plasma have been validated by the individual laboratory site where testing is performed. Testing on heparinized plasma is not approved by the FDA; however, such approval is not necessary. Performed By: #### 2 4362-6 ####GARRY Schmid ([id number])[facility] ([facility])[address] [place] [address] Potassium [Moles/Vol] 5.4 mmol/L High 3.5-5.[address] [facility] Comment on above: Performed By: #### 2 4362-6 ####GARRY Schmid ([id number])[facility] ([facility])[address] [place] [address] Sodium [Moles/Vol] 129 mmol/L Low 136-145 [facility] Comment on above: Performed By: #### 2 4362-6 ####GARRY Schmid ([id number])[facility] ([facility])[address] [place] [address] Urea nitrogen [Mass/Vol] 11 mg/dL Normal 6-23 [facility] Comment on above: Performed By: #### 2 4362-6 ####GARRY Schmid ([id number])[facility] ([facility])[address] [place] [address] Albumin BCP dye [Mass/Vol] 2.4 g/dL Low 3.4 - 5.0 g/dL [facility] Anion gap [Moles/Vol] 12 mmol/L 10 - 2 0 mmol/L [facility] Calcium [Mass/Vol] 8.0 mg/dL Low 8.6 - 10. 6 mg/dL [facility] Chloride [Moles/Vol] 93 mmol/L Low 98 - 10 7 mmol/L [facility] CO2 [Moles/Vol] 29 mmol/L 21 - 32 mmol/L [facility] Creatinine [Mass/Vol] 0.74 mg/dL 0.50 - 1.05 mg/dL [facility] eGFR - PINF [facility] Glucose [Mass/Vol] 319 mg/dL High 74 - 99 mg/dL [facility] Interpretation and review of laboratory results Abnormal [facility] Phosphate [Mass/Vol] 2.5 mg/dL 2.5 - 4 .9 mg/dL [facility] Potassium [Moles/Vol] 5.4 mmol/L High 3.5 - 5.3 mmol/L [facility] Sodium [Moles/Vol] 129 mmol/L Low 136 - 145 mmol/L [facility] Urea nitrogen [Mass/Vol] 11 mg/dL 6 - 23 mg/dL [facility] Albumin BCP dye [Mass/Vol] 2.3 g/dL Low 3.4-5.0 [facility] Comment on above: Performed By: #### 2 4362-6 ####GARRY Schmid ([id number])[facility] ([facility])[address] [place] [address] Anion gap [Moles/Vol] 11 mmol/L Normal 10-20 [facility] Comment on above: Performed By: #### 2 4362-6 ####GARRY Schmid ([id number])[facility] ([facility])[id number] [place] [address] Calcium [Mass/Vol] 8.4 mg/dL Low 8.6-10.6 [facility] Comment on above: Performed By: #### 2 4362-6 ####GARRY Schmid ([id number])[facility] ([facility])[address] [place] [address] Chloride [Moles/Vol] 96 mmol/L Low 98-107 [facility] Comment on above: Performed By: #### 2 4362-6 ####GARRY Schmid ([id number])[facility] ([facility])[address] [place] [address] CO2 [Moles/Vol] 32 mmol/L Normal 21-32 [facility] Comment on above: Performed By: #### 2 4362-6 ####GARRY PEREZ L ([id number])[facility] ([facility])[address] [place] [address] Creatinine [Mass/Vol] 0.78 mg/dL Normal 0.50-1.05 [facility] Comment on above: Performed By: #### 2 4362-6 ####GARRY Schmid ([id number])[facility] ([facility])[address] [place] [address] GFR/1.73 sq M.predicted MDRD (S/P/Bld) [Vol rate/Area] mL/min/{1.73_m2} Normal >60 [facility] Comment on above: Result Comment: Calc ulations of estimated GFR are performed using the 2020 CKD-EPI Study Refit equation without the race variable for the IDMS-Traceable creatinine methods.https://jasn.asnjournals.org/content/early/ N.6224278333 Performed By: #### 2 4362-6 ####GARRY Schmid ([id number])[facility] ([facility])[address] [place] [address] Glucose [Mass/Vol] 91 mg/dL Normal 74-99 [facility] Comment on above: Performed By: #### 2 4362-6 ####GARRY Schmid ([id number])[facility] ([facility])[address] [place] [address] Phosphate [Mass/Vol] 2.5 mg/dL Normal 2.5-4.9 [facility] Comment on above: Result Comment: The performance characteristics of phosphorus testing in heparinized plasma have been validated by the individual laboratory site where testing is performed. Testing on heparinized plasma is not approved by the FDA; however, such approval is not necessary. Performed By: #### 2 4362-6 ####GARRY Schmid ([id number])[facility] ([facility])[address] [place] [address] Potassium [Moles/Vol] 4.4 mmol/L Normal 3.5-5.3 [facility] Comment on above: Performed By: #### 2 4362-6 ####GARRY Schmid ([id number])[facility] ([facility])[address] [place] [address] Sodium [Moles/Vol] 135 mmol/L Low 136-145 [facility] Comment on above: Performed By: #### 2 4362-6 ####GARRY Schmid ([id number])[facility] ([facility])[address] [place] [address] Urea nitrogen [Mass/Vol] 11 mg/dL Normal 6-23 [facility] Comment on above: Performed By: #### 2 4362-6 ####GARRY Schmid ([id number])[facility] ([facility])[address] [place] [address] Albumin BCP dye [Mass/Vol] 2.3 g/dL Low 3.4 - 5.0 g/dL [facility] Anion gap [Moles/Vol] 11 mmol/L 10 - 2 0 mmol/L [facility] Calcium [Mass/Vol] 8.4 mg/dL Low 8.6 - 10. 6 mg/dL [facility] Chloride [Moles/Vol] 96 mmol/L Low 98 - 10 7 mmol/L [facility] CO2 [Moles/Vol] 32 mmol/L 21 - 32 mmol/L [facility] Creatinine [Mass/Vol] 0.78 mg/dL 0.50 - 1.05 mg/dL [facility] eGFR - PINF [facility] Glucose [Mass/Vol] 91 mg/dL 74 - 99 mg/dL [facility] Interpretation and review of laboratory results Abnormal [facility] Phosphate [Mass/Vol] 2.5 mg/dL 2.5 - 4 .9 mg/dL [facility] Potassium [Moles/Vol] 4.4 mmol/L 3.5 - 5.3 mmol/L [facility] Sodium [Moles/Vol] 135 mmol/L Low 136 - 145 mmol/L [facility] Urea nitrogen [Mass/Vol] 11 mg/dL 6 - 23 mg/dL [facility] Albumin BCP dye [Mass/Vol] 2.4 g/dL Low 3.4-5.0 [facility] Comment on above: Performed By: #### 2 4362-6 ####GARRY Schmid ([id number])[facility] ([facility])[address] [place] [address] Anion gap [Moles/Vol] 13 mmol/L Normal 10-20 [facility] Comment on above: Performed By: #### 2 4362-6 ####GARRY Schmid ([id number])[facility] ([facility])[address] [place] [address] Calcium [Mass/Vol] 8.9 mg/dL Normal 8.6-10.6 [facility] Comment on above: Performed By: #### 2 4362-6 ####GARRY Schmid ([id number])[facility] ([facility])[address] [place] [address] Chloride [Moles/Vol] 96 mmol/L Low 98-107 [facility] Comment on above: Performed By: #### 2 4362-6 ####GARRY Schmid ([id number])[facility] ([facility])[address] [place] [address] CO2 [Moles/Vol] 31 mmol/L Normal 21-32 [facility] Comment on above: Performed By: #### 2 4362-6 ####GARRY Schmid ([id number])[facility] ([facility])[address] [place] [address] Creatinine [Mass/Vol] 0.80 mg/dL Normal 0.50-1.05 [facility] Comment on above: Performed By: #### 2 4362-6 ####GARRY Schmid ([id number])[facility] ([facility])[address] [place] [address] GFR/1.73 sq M.predicted MDRD (S/P/Bld) [Vol rate/Area] mL/min/{1.73_m2} Normal >60 [facility] Comment on above: Result Comment: Calc ulations of estimated GFR are performed using the 2020 CKD-EPI Study Refit equation without the race variable for the IDMS-Traceable creatinine methods.https://jasn.asnjournals.org/content/early/ N.5773083677 Performed By: #### 2 4362-6 ####GARRY Schmid ([id number])[facility] ([facility])[address] [place] [address] Glucose [Mass/Vol] 120 mg/dL High 74-99 [facility] Comment on above: Performed By: #### 2 4362-6 ####GARRY Schmid ([id number])[facility] ([facility])[address] [place] [address] Phosphate [Mass/Vol] 2.5 mg/dL Normal 2.5-4.9 [facility] Comment on above: Result Comment: The performance characteristics of phosphorus testing in heparinized plasma have been validated by the individual laboratory site where testing is performed. Testing on heparinized plasma is not approved by the FDA; however, such approval is not necessary. Performed By: #### 2 4362-6 ####GARRY Schmid ([id number])[facility] ([facility])[address] [place] [address] Potassium [Moles/Vol] 4.9 mmol/L Normal 3.5-5.3 [facility] Comment on above: Performed By: #### 2 4362-6 ####GARRY Schmid ([id number])[facility] ([facility])[address] [place] [address] Sodium [Moles/Vol] 135 mmol/L Low 136-145 [facility] Comment on above: Performed By: #### 2 4362-6 ####GARRY Schmid ([id number])[facility] ([facility])[address] [place] [address] Urea nitrogen [Mass/Vol] 12 mg/dL Normal 6-23 [facility] Comment on above: Performed By: #### 2 4362-6 ####GARRY Schmid ([id number])[facility] ([facility])[address] [place] [address] Albumin BCP dye [Mass/Vol] 2.4 g/dL Low 3.4 - 5.0 g/dL [facility] Anion gap [Moles/Vol] 13 mmol/L 10 - 2 0 mmol/L [facility] Calcium [Mass/Vol] 8.9 mg/dL 8.6 - 10. 6 mg/dL [facility] Chloride [Moles/Vol] 96 mmol/L Low 98 - 10 7 mmol/L [facility] CO2 [Moles/Vol] 31 mmol/L 21 - 32 mmol/L [facility] Creatinine [Mass/Vol] 0.80 mg/dL 0.50 - 1.05 mg/dL [facility] eGFR - PINF [facility] Glucose [Mass/Vol] 120 mg/dL High 74 - 99 mg/dL [facility] Interpretation and review of laboratory results Abnormal [facility] Phosphate [Mass/Vol] 2.5 mg/dL 2.5 - 4 .9 mg/dL [facility] Potassium [Moles/Vol] 4.9 mmol/L 3.5 - 5.3 mmol/L [facility] Sodium [Moles/Vol] 135 mmol/L Low 136 - 145 mmol/L [facility] Urea nitrogen [Mass/Vol] 12 mg/dL 6 - 23 mg/dL [facility] Albumin BCP dye [Mass/Vol] 2.7 g/dL Low 3.4-5.0 [facility] Comment on above: Performed By: #### 2 4362-6 ####GARRY Schmid ([id number])[facility] ([facility])[address] [place] [address] Anion gap [Moles/Vol] 22 mmol/L High 10-20 [facility] Comment on above: Performed By: #### 2 4362-6 ####GARRY Schmid ([id number])[facility] ([facility])[address] [place] [address] Calcium [Mass/Vol] 8.9 mg/dL Normal 8.6-10.6 [facility] Comment on above: Performed By: #### 2 4362-6 ####GARRY Schmid ([id number])[facility] ([facility])[address] [place] [address] Chloride [Moles/Vol] 87 mmol/L Low 98-107 [facility] Comment on above: Performed By: #### 2 4362-6 ####GARRY Schmid ([id number])[facility] ([facility])[address] [place] [address] CO2 [Moles/Vol] 23 mmol/L Normal 21-32 [facility] Comment on above: Performed By: #### 2 4362-6 ####GARRY Schmid ([id number])[facility] ([facility])[address] [place] [address] Creatinine [Mass/Vol] 1.02 mg/dL Normal 0.50-1.05 [facility] Comment on above: Performed By: #### 2 4362-6 ####GARRY Schmid ([id number])[facility] ([facility])[address] [place] [address] Glomerular filtration rate/1.73 sq M.predicted 74 mL/min/1.73m*2 Normal >60 [facility] Comment on above: Result Comment: Calc ulations of estimated GFR are performed using the 2020 CKD-EPI Study Refit equation without the race variable for the IDMS-Traceable creatinine methods.https://jasn.asnjournals.org/content/early/ N.2904084908 Performed By: #### 2 4362-6 ####GARRY Schmid ([id number])[facility] ([facility])[address] [place] [address] Glucose [Mass/Vol] 622 mg/dL Critically high 74-99 [facility] Comment on above: Performed By: #### 2 4362-6 ####GARRY Schmid ([id number])[facility] ([facility])[address] [place] [address] Phosphate [Mass/Vol] 3.7 mg/dL Normal 2.5-4.9 [facility] Comment on above: Result Comment: The performance characteristics of phosphorus testing in heparinized plasma have been validated by the individual laboratory site where testing is performed. Testing on heparinized plasma is not approved by the FDA; however, such approval is not necessary. Performed By: #### 2 4362-6 ####GARRY Schmid ([id number])[facility] ([facility])[address] [place] [address] Potassium [Moles/Vol] 4.5 mmol/L Normal 3.5-5.3 [facility] Comment on above: Performed By: #### 2 4362-6 ####GARRY Schmid ([id number])[facility] ([facility])[address] [place] [address] Sodium [Moles/Vol] 127 mmol/L Low 136-145 [facility] Comment on above: Performed By: #### 2 4362-6 ####GARRY Schmid ([id number])[facility] ([facility])[address] [place] [address] Urea nitrogen [Mass/Vol] 11 mg/dL Normal 6-23 [facility] Comment on above: Performed By: #### 2 4362-6 ####GARRY Schmid ([id number])[facility] ([facility])[address]154 [place] [address] Albumin BCP dye [Mass/Vol] 2.7 g/dL Low 3.4 - 5.0 g/dL [facility] Anion gap [Moles/Vol] 22 mmol/L High 10 - 2 0 mmol/L [facility] Calcium [Mass/Vol] 8.9 mg/dL 8.6 - 10. 6 mg/dL [facility] Chloride [Moles/Vol] 87 mmol/L Low 98 - 10 7 mmol/L [facility] CO2 [Moles/Vol] 23 mmol/L 21 - 32 mmol/L [facility] Creatinine [Mass/Vol] 1.02 mg/dL 0.50 - 1.05 mg/dL [facility] GFR/1.73 sq M.predicted among non-blacks MDRD (S/P/Bld) [Vol rate/Area] 74 mL/min/{1.73_m2} - PINF [facility] Glucose [Mass/Vol] 622 mg/dL Critically high 74 - 9 9 mg/dL [facility] Interpretation and review of laboratory results Abnormal [facility] Phosphate [Mass/Vol] 3.7 mg/dL 2.5 - 4 .9 mg/dL [facility] Potassium [Moles/Vol] 4.5 mmol/L 3.5 - 5.3 mmol/L [facility] Sodium [Moles/Vol] 127 mmol/L Low 136 - 145 mmol/L [facility] Urea nitrogen [Mass/Vol] 11 mg/dL 6 - 23 mg/dL [facility] Albumin BCP dye [Mass/Vol] 2.7 g/dL Low 3.4-5.0 [facility] Comment on above: Performed By: #### 2 4362-6 ####GARRY Schmid ([id number])[facility] ([facility])[address] [place] [address] Anion gap [Moles/Vol] 31 mmol/L High 10-20 [facility] Comment on above: Performed By: #### 2 4362-6 ####GARRY Schmid ([id number])[facility] ([facility])[address] [place] [address] Calcium [Mass/Vol] 8.8 mg/dL Normal 8.6-10.6 [facility] Comment on above: Performed By: #### 2 4362-6 ####GARRY Schmid ([id number])[facility] ([facility])[address]60 [place] [address] Chloride [Moles/Vol] 81 mmol/L Low 98-107 [facility] Comment on above: Performed By: #### 2 4362-6 ####GARRY Schmid ([id number])[facility] ([facility])[address]641 [place] [address] CO2 [Moles/Vol] 15 mmol/L Low 21-32 [facility] Comment on above: Performed By: #### 2 4362-6 ####GARRY Schmid ([id number])[facility] ([facility])[address] [place] [address] Creatinine [Mass/Vol] 1.18 mg/dL High 0.50-1.05 [facility] Comment on above: Performed By: #### 2 4362-6 ####GARRY Schmid ([id number])[facility] ([facility])[address] [place] [address] Glomerular filtration rate/1.73 sq M.predicted 62 mL/min/1.73m*2 Normal >60 [facility] Comment on above: Result Comment: Calc ulations of estimated GFR are performed using the 2020 CKD-EPI Study Refit equation without the race variable for the IDMS-Traceable creatinine methods.https://jasn.asnjournals.org/content/early// N.[id number] Performed By: #### 2 4362-6 ####GARRY Schmid ([id number])[facility] ([facility])[address] [place] [address] Glucose [Mass/Vol] 1079 mg/dL Critically high 74-99 [facility] Comment on above: Performed By: #### 2 4362-6 ####GARRY Schmid ([id number])[facility] ([facility])[address] [place] [address] Phosphate [Mass/Vol] 4.5 mg/dL Normal 2.5-4.9 [facility] Comment on above: Result Comment: The performance characteristics of phosphorus testing in heparinized plasma have been validated by the individual laboratory site where testing is performed. Testing on heparinized plasma is not approved by the FDA; however, such approval is not necessary. Performed By: #### 2 4362-6 ####GARRY Schmid ([id number])[facility] ([facility])[address] [place] [address] Potassium [Moles/Vol] 5.3 mmol/L Normal 3.5-5.3 [facility] Comment on above: Performed By: #### 2 4362-6 ####GARRY PEREZ L ([id number])[facility] ([facility])[address] [place] [address] Sodium [Moles/Vol] 122 mmol/L Low 136-145 [facility] Comment on above: Performed By: #### 2 4362-6 ####GARRY PEREZ L ([id number])[facility] ([facility])[address] [place] [address] Urea nitrogen [Mass/Vol] 9 mg/dL Normal 6-23 [facility] Comment on above: Performed By: #### 2 4362-6 ####GARRY PEREZ L ([id number])[facility] ([facility])[address]350 [place] [address] Albumin BCP dye [Mass/Vol] 2.7 g/dL Low 3.4 - 5.0 g/dL [facility] Anion gap [Moles/Vol] 31 mmol/L High 10 - 2 0 mmol/L [facility] Calcium [Mass/Vol] 8.8 mg/dL 8.6 - 10. 6 mg/dL [facility] Chloride [Moles/Vol] 81 mmol/L Low 98 - 10 7 mmol/L [facility] CO2 [Moles/Vol] 15 mmol/L Low 21 - 32 mmol/L [facility] Creatinine [Mass/Vol] 1.18 mg/dL High 0.50 - 1.05 mg/dL [facility] GFR/1.73 sq M.predicted among non-blacks MDRD (S/P/Bld) [Vol rate/Area] 62 mL/min/{1.73_m2} - PINF [facility] Glucose [Mass/Vol] 1079 mg/dL Critically high 74 - 9 9 mg/dL [facility] Interpretation and review of laboratory results Abnormal [facility] Phosphate [Mass/Vol] 4.5 mg/dL 2.5 - 4 .9 mg/dL [facility] Potassium [Moles/Vol] 5.3 mmol/L 3.5 - 5.3 mmol/L [facility] Sodium [Moles/Vol] 122 mmol/L Low 136 - 145 mmol/L [facility] Urea nitrogen [Mass/Vol] 9 mg/dL 6 - 23 mg/dL [facility] Vancomycinon 11-01-2023 Vancomycin [Mass/Vol] 9.9 ug/mL 5.0 - 20.0 ug/mL [facility] Vancomycin [Mass/Vol] 9.9 ug/mL Normal 5.0-20.0 [facility] Comment on above: Order Comment: Vanco [...] Performed By: #### 2 0578-1 ####GARRY Schmid ([id number])[facility] ([facility])[address] [place] [address] Vancomycin [Mass/Vol]on 10-17 Interpretation and review of laboratory results Normal [facility] XR CHEST 1 VIEWon 11-01-2023 XR CHEST 1 VIEW Normal [facility] XR Chest Single viewon 11-01 [facility] MMODAL [facility] MMODAL [facility] Work Phone: Radiology Study observation (narrative) [facility] Work Phone: XR Chest Single viewOrdered By: Rosetta Meyer on 11-01-2023 [facility] Work Phone: Bedside Midline Imagingon IMAGING CBC panel Auto (Bld)on 10-31 Erythrocyte distribution width (RBC) [Ratio] 14.8 % High 11.5 - 14.5 % [facility] Hematocrit (Bld) [Volume fraction] 29.4 % Low 36.0 - 46.0 % [facility] Hemoglobin (Bld) [Mass/Vol] 9.7 g/dL Low 12.0 - 16.0 g/dL [facility] Interpretation and review of laboratory results Abnormal [facility] MCH (RBC) [Entitic mass] 29.6 pg 26.0 - 34.0 pg [facility] MCHC (RBC) [Mass/Vol] 33.0 g/dL 32.0 - 36.0 g/dL [facility] MCV (RBC) [Entitic vol] 90 fL 80 - 100 fL [facility] Nucleated RBC/100 WBC (Bld) [Ratio] 0.2 % High [facility] Platelets (Bld) [#/Vol] 1497 10*3/uL High [facility] RBC (Bld) [#/Vol] 3.28 10*6/uL Low [facility] WBC (Bld) [#/Vol] 9.6 10*3/uL [facility] CT ABDOMEN PELVIS W IV CONTR Iris 10-31-2023 CT ABDOMEN PELVIS W IV CONTRAST Normal [facility] MIDLINE BEDSIDE IMAGINGon MIDLINE BEDSIDE IMAGING These images are not reportable by radiology and will not be interpreted by Radiologists. Normal [facility] PT and aPTT panel Coag (PPP) on 10-31-2023 aPTT Coag (PPP) [Time] 32 s [facility] INR Coag (PPP) [Relative time] 1.1 {INR} 0.9 - 1.1 [facility] Interpretation and review of laboratory results Normal [facility] PT Coag (PPP) [Time] 12.8 s [facility] Staphylococcus aureus.methic illin resistant isolateon 10-31-2023 MRSA isol Org specific cx Ql (Nose) Normal [facility] Comment on above: Performed By: #### 5 2969-3 ####GARRY Schmid ([id number])[facility] ([facility])[address] [place] [address] CBC panel Auto (Bld)on 10-29 Erythrocyte distribution width (RBC) [Ratio] 14.9 % High 11.5-14.5 [facility] Comment on above: Performed By: #### 5 8410-2 ####GARRY Schmid ([id number])[facility] ([facility])[address] [place] [address] Hematocrit (Bld) [Volume fraction] 27.0 % Low 36.0-46.0 [facility] Comment on above: Performed By: #### 5 8410-2 ####GARRY Schmid ([id number])[facility] ([facility])[address] [place] [address] Hemoglobin (Bld) [Mass/Vol] 9.0 g/dL Low 12.0-16.0 [facility] Comment on above: Performed By: #### 5 8410-2 ####GARRY Schmid ([id number])[facility] ([facility])[address] [place] [address] MCH (RBC) [Entitic mass] 30.0 pg Normal 26.0-34.0 [facility] Comment on above: Performed By: #### 5 8410-2 ####GARRY Schmid ([id number])[facility] ([facility])[address] [place] [address] MCHC (RBC) [Mass/Vol] 33.3 g/dL Normal 32.0-36.0 [facility] Comment on above: Performed By: #### 5 8410-2 ####GARRY Schmid ([id number])[facility] ([facility])[address] [place] [address] MCV (RBC) [Entitic vol] 90 fL Normal 80-100 [facility] Comment on above: Performed By: #### 5 8410-2 ####GARRY Schmid ([id number])[facility] ([facility])[address] [place] [address] Nucleated RBC/100 WBC (Bld) [Ratio] 0.5 /100 WBCs High 0.0-0.0 [facility] Comment on above: Performed By: #### 5 8410-2 ####GARRY Schmid ([id number])[facility] ([facility])[address] [place] [address] Platelets (Bld) [#/Vol] 1385 x10*3/uL High 150-450 [facility] Comment on above: Performed By: #### 5 8410-2 ####GARRY Schmid ([id number])[facility] ([facility])[address] [place] [address] RBC (Bld) [#/Vol] 3.00 x10*6/uL Low 4.00-5.20 [facility] Comment on above: Performed By: #### 5 8410-2 ####GARRY Schmid ([id number])[facility] ([facility])[address] [place] [address] WBC (Bld) [#/Vol] 11.4 x10*3/uL High 4.4-11.3 [facility] Comment on above: Performed By: #### 5 8410-2 ####GARRY Schmid ([id number])[facility] ([facility])[address] [place] [address] Comprehensive metabolic 2000 panelon 10-29-2023 Albumin BCP dye [Mass/Vol] 2.4 g/dL Low 3.4-5.0 [facility] Comment on above: Performed By: #### 2 4323-8 ####GARRY Schmid ([id number])[facility] ([facility])[address] [place] [address] ALP [Catalytic activity/Vol] 109 U/L Normal 33-110 [facility] Comment on above: Performed By: #### 2 4323-8 ####GARRY Schmid ([id number])[facility] ([facility])[address] [place] [address] ALT With P-5'-P [Catalytic activity/Vol] 6 U/L Low 7-45 [facility] Comment on above: Result Comment: Gianna ents treated with Sulfasalazine may generate falsely decreased results for ALT. Performed By: #### 2 4323-8 ####GARRY Schmid ([id number])[facility] [facility] [place] [address] Anion gap [Moles/Vol] 10 mmol/L Normal 10-20 [facility] Comment on above: Performed By: #### 2 4323-8 ####GARRY Schmid ([id number])[facility] ([facility])[address] [place] [address] AST With P-5'-P [Catalytic activity/Vol] 10 U/L Normal 9-39 [facility] Comment on above: Performed By: #### 2 4323-8 ####GARRY Schmid ([id number])[facility] ([facility])[address] [place] [address] Bilirubin [Mass/Vol] 0.1 mg/dL Normal 0.0-1.2 [facility] Comment on above: Performed By: #### 2 4323-8 ####GARRY Schmid ([id number])[facility] ([facility])[address] [place] [address] Calcium [Mass/Vol] 8.0 mg/dL Low 8.6-10.6 [facility] Comment on above: Performed By: #### 2 4323-8 ####GARRY Schmid ([id number])[facility] ([facility])[address] [place] [address] Chloride [Moles/Vol] 101 mmol/L Normal 98-107 [facility] Comment on above: Performed By: #### 2 4323-8 ####GARRY Schmid ([id number])[facility] ([facility])[address] [place] [address] CO2 [Moles/Vol] 29 mmol/L Normal 21-32 [facility] Comment on above: Performed By: #### 2 4323-8 ####GARRY Schmid ([id number])[facility] ([facility])[address] [place] [address] Creatinine [Mass/Vol] 0.69 mg/dL Normal 0.50-1.05 [facility] Comment on above: Performed By: #### 2 4323-8 ####GARRY Schmid ([id number])[facility] ([facility])[address] [place] [address] GFR/1.73 sq M.predicted MDRD (S/P/Bld) [Vol rate/Area] mL/min/{1.73_m2} Normal >60 [facility] Comment on above: Result Comment: Calc ulations of estimated GFR are performed using the 2020 CKD-EPI Study Refit equation without the race variable for the IDMS-Traceable creatinine methods.https://jasn.asnjournals.org/content/early/ N.6743493431 Performed By: #### 2 4323-8 ####GARRY Schmid ([id number])[facility] ([facility])[address] [place] [address] Glucose [Mass/Vol] 240 mg/dL High 74-99 [facility] Comment on above: Performed By: #### 2 4323-8 ####GARRY PEREZ L ([id number])[facility] ([facility])[address] [place] [address] Potassium [Moles/Vol] 5.5 mmol/L High 3.5-5.3 [facility] Comment on above: Performed By: #### 2 4323-8 ####GARRY PEREZ L ([id number])[facility] ([facility])[address] [place] [address] Protein [Mass/Vol] 5.9 g/dL Low 6.4-8.2 [facility] Comment on above: Performed By: #### 2 4323-8 ####GARRY Schmid ([id number])[facility] ([facility])[address] [place] [address] Sodium [Moles/Vol] 134 mmol/L Low 136-145 [facility] Comment on above: Performed By: #### 2 4323-8 ####GARRY Schmid ([id number])[facility] ([facility])[address] [place] [address] Urea nitrogen [Mass/Vol] 8 mg/dL Normal 6-23 [facility] Comment on above: Performed By: #### 2 4323-8 ####GARRY Schmid ([id number])[facility] ([facility])[address] [place] [address] Glucose Test strip manual (B ld) [Mass/Vol]on 10-29-2023 Glucose [Mass/Vol] 127 mg/dL High [address] [place] [address] Comment on above: Performed By: #### 2 341-6 ####GARRY Schmid ([id number])[facility] ([facility])[address] [place] [address] Glucose [Mass/Vol] 249 mg/dL High 74-[address] [place] [address] Comment on above: Result Comment: RN/M D NOTIFIED Performed By: #### 2 341-6 ####GARRY Schmid ([id number])[facility] ([facility])[address] [place] [address] Glucose [Mass/Vol] 37 mg/dL Low 74-99 [facility] Comment on above: Performed By: #### 2 341-6 ####GARRY Schmid ([id number])[facility] ([facility])[address] [place] [address] Glucose [Mass/Vol] 263 mg/dL High 74-99 [facility] Comment on above: Performed By: #### 2 341-6 ####GARRY Schmid ([id number])[facility] ([facility])[address] [place] [address] Glucose [Mass/Vol] 248 mg/dL High 74-99 [facility] Comment on above: Performed By: #### 2 341-6 ####GARRY Schmid ([id number])[facility] ([facility])[address] [place] [address] Glucose [Mass/Vol] 225 mg/dL High 74-99 [facility] Comment on above: Performed By: #### 2 341-6 ####GARRY Schmid ([id number])[facility] ([facility])[address] [place] [address] IR LYMPHANGIOGRAM PELVIS ABD OMEN BILATERALon 10-29-2023 IR LYMPHANGIOGRAM PELVIS ABDOMEN BILATERAL Normal [facility] Magnesiumon 10-29-2023 Magnesium [Mass/Vol] 2.29 mg/dL Normal 1.60-2.40 [facility] Comment on above: Performed By: #### 1 9123-9 ####GARRY Schmid ([id number])[facility] ([facility])[address] [place] [address] CBC panel Auto (Bld)on 10-28 Erythrocyte distribution width (RBC) [Ratio] 15.0 % High 11.5-14.5 [facility] Comment on above: Performed By: #### 5 8410-2 ####GARRY Schmid ([id number])[facility] ([facility])[address] [place] [address] Hematocrit (Bld) [Volume fraction] 25.5 % Low 36.0-46.0 [facility] Comment on above: Performed By: #### 5 8410-2 ####GARRY Schmid ([id number])[facility] ([facility])[address] [place] [address] Hemoglobin (Bld) [Mass/Vol] 8.7 g/dL Low 12.0-16.0 [facility] Comment on above: Performed By: #### 5 8410-2 ####GARRY Schmid ([id number])[facility] ([facility])[address] [place] [address] MCH (RBC) [Entitic mass] 31.2 pg Normal 26.0-34.0 [facility] Comment on above: Performed By: #### 5 8410-2 ####GARRY Schmid ([id number])[facility] ([facility])[address] [place] [address] MCHC (RBC) [Mass/Vol] 34.1 g/dL Normal 32.0-36.0 [facility] Comment on above: Performed By: #### 5 8410-2 ####GARRY Schmid ([id number])[facility] ([facility])[address] [place] [address] MCV (RBC) [Entitic vol] 91 fL Normal 80-100 [facility] Comment on above: Performed By: #### 5 8410-2 ####GARRY Schmid ([id number])[facility] ([facility])[address] [place] [address] Nucleated RBC/100 WBC (Bld) [Ratio] 0.3 /100 WBCs High 0.0-0.0 [facility] Comment on above: Performed By: #### 5 8410-2 ####GARRY Schmid ([id number])[facility] ([facility])[address] [place] [address] Platelets (Bld) [#/Vol] 1189 x10*3/uL High 150-450 [facility] Comment on above: Performed By: #### 5 8410-2 ####GARRY Schmid ([id number])[facility] ([facility])[address] [place] [address] RBC (Bld) [#/Vol] 2.79 x10*6/uL Low 4.00-5.20 [facility] Comment on above: Performed By: #### 5 8410-2 ####GARRY PEREZ L ([id number])[facility] ([facility])[address] [place] [address] WBC (Bld) [#/Vol] 21.7 x10*3/uL High 4.4-11.3 [facility] Comment on above: Performed By: #### 5 8410-2 ####GARRY Schmid ([id number])[facility] ([facility])[address] [place] [address] CT ABDOMEN PELVIS W IV CONTR Iris 10-28-2023 CT ABDOMEN PELVIS W IV CONTRAST Normal [facility] Comprehensive metabolic 2000 panelon 10-28-2023 Albumin BCP dye [Mass/Vol] 2.3 g/dL Low 3.4-5.0 [facility] Comment on above: Performed By: #### 2 4323-8 ####GARRY Schmid ([id number])[facility] ([facility])[address] [place] [address] ALP [Catalytic activity/Vol] 110 U/L Normal 33-110 [facility] Comment on above: Performed By: #### 2 4323-8 ####GARRY Schmid ([id number])[facility] ([facility])[address] [place] [address] ALT With P-5'-P [Catalytic activity/Vol] 6 U/L Low 7-45 [facility] Comment on above: Result Comment: Gianna ents treated with Sulfasalazine may generate falsely decreased results for ALT. Performed By: #### 2 4323-8 ####GARRY Schmid ([id number])[facility] ([facility])[address] [place] [address] Anion gap [Moles/Vol] 12 mmol/L Normal 10-20 [facility] Comment on above: Performed By: #### 2 4323-8 ####GARRY Schmid ([id number])[facility] ([facility])[address] [place] [address] AST With P-5'-P [Catalytic activity/Vol] 9 U/L Normal 9-39 [facility] Comment on above: Performed By: #### 2 4323-8 ####GARRY Schmid ([id number])[facility] ([facility])[address] [place] [address] Bilirubin [Mass/Vol] 0.1 mg/dL Normal 0.0-1.2 [facility] Comment on above: Performed By: #### 2 4323-8 ####GARRY Schmid ([id number])[facility] ([facility])[address] [place] [address] Calcium [Mass/Vol] 7.8 mg/dL Low 8.6-10.6 [facility] Comment on above: Performed By: #### 2 4323-8 ####GARRY PEREZ L (30956)[facility] ([facility])[address] [place] [address] Chloride [Moles/Vol] 100 mmol/L Normal 98-107 [facility] Comment on above: Performed By: #### 2 4323-8 ####GARRY PEREZ L ([id number])[facility] ([facility])[address] [place] [address] CO2 [Moles/Vol] 28 mmol/L Normal 21-32 [facility] Comment on above: Performed By: #### 2 4323-8 ####GARRY PEREZ L ([id number])[facility] ([facility])[address] [place] [address] Creatinine [Mass/Vol] 0.64 mg/dL Normal 0.50-1.05 [facility] Comment on above: Performed By: #### 2 4323-8 ####GARRY PEREZ L ([id number])[facility] ([facility])[address] [place] [address] GFR/1.73 sq M.predicted MDRD (S/P/Bld) [Vol rate/Area] mL/min/{1.73_m2} Normal >60 [facility] Comment on above: Result Comment: Calc ulations of estimated GFR are performed using the 2020 CKD-EPI Study Refit equation without the race variable for the IDMS-Traceable creatinine methods.https://jasn.asnjournals.org/content// N.7070137855 Performed By: #### 2 4323-8 ####GARRY Schmid ([id number])[facility] ([facility])[address] [place] [address] Glucose [Mass/Vol] 162 mg/dL High 74-99 [facility] Comment on above: Performed By: #### 2 4323-8 ####GARRY Schmid ([id number])[facility] ([facility])[address] [place] [address] Potassium [Moles/Vol] 4.9 mmol/L Normal 3.5-5.3 [facility] Comment on above: Performed By: #### 2 4323-8 ####GARRY Schmid (78701)[facility] ([facility])[address] [place] [address] Protein [Mass/Vol] 5.5 g/dL Low 6.4-8.2 [facility] Comment on above: Performed By: #### 2 4323-8 ####GARRY Schmid (91252)[facility] ([facility])[address] [place] [address] Sodium [Moles/Vol] 135 mmol/L Low 136-145 [facility] Comment on above: Performed By: #### 2 4323-8 ####GARRY Schmid (77505)[facility] ([facility])[address] [place] [address] Urea nitrogen [Mass/Vol] 7 mg/dL Normal 6-23 [facility] Comment on above: Performed By: #### 2 4323-8 ####GARRY Schmid ([id number])[facility] ([facility])[address]448 [place] [address] Glucose Test strip manual (B ld) [Mass/Vol]on 10-28-2023 Glucose [Mass/Vol] 126 mg/dL High 74-99 [facility] Comment on above: Performed By: #### 2 341-6 ####GARRY Schmid ([id number])[facility] ([facility])[address]65 [place] [address] Glucose [Mass/Vol] 158 mg/dL High 74-99 [facility] Comment on above: Performed By: #### 2 341-6 ####GARRY Schmid (52209)[facility] ([facility])[address] [place] [address] Glucose [Mass/Vol] 102 mg/dL High 74-[address] [place] [address] Comment on above: Performed By: #### 2 341-6 ####GARRY Schmid (30852)[facility] ([facility])[address]75 [place] [address] Glucose [Mass/Vol] 61 mg/dL Low -[address] [place] [address] Comment on above: Performed By: #### 2 341-6 ####GARRY Schmid ([id number])[facility] ([facility])[address]196 [place] [address] Glucose [Mass/Vol] 242 mg/dL High -[address] [place] [address] Comment on above: Performed By: #### 2 341-6 ####GARRY Schmid (60892)[facility] ([facility])[address]27 [place] [address] Glucose [Mass/Vol] 199 mg/dL High [address] [place] [address] Comment on above: Performed By: #### 2 341-6 ####GARRY Schmid (60014)[facility] ([facility])[address]455 [place] [address] Glucose [Mass/Vol] 168 mg/dL High -[address] [place] [address] Comment on above: Performed By: #### 2 341-6 ####GARRY Schmid (40905)[facility] ([facility])[address] [place] [address] Magnesiumon 10-28-2023 Magnesium [Mass/Vol] 2.19 mg/dL Normal 1.60-2.40 [facility] Comment on above: Performed By: #### 1 9123-9 ####GARRY Schmid ([id number])[facility] ([facility])[address]97 [facility] [place] [address] Urinalysis complete W Reflex Culture panel (U)on 10-28-2023 Appearance (U) Clear Normal Clear [facility] Comment on above: Performed By: #### 5 8077-9 ####GARRY Schmid ([id number])[facility] ([facility])[address]72 [place] [address] Bilirubin (U) [Mass/Vol] Negative Normal NEGATIVE [facility] Comment on above: Performed By: #### 5 8077-9 ####GARRY Schmid ([id number])[facility] ([facility])[address]108 [place] [address] Color (U) Light-Yellow Normal Light-Yellow , Yellow, Dark-Yellow [facility] Comment on above: Performed By: #### 5 8077-9 ####GARRY Schmid (91125)[facility] ([facility])[address] [place] [address] Glucose Auto test strip (U) [Mass/Vol] Normal Normal Normal [facility] Comment on above: Performed By: #### 5 8077-9 ####GARRY Schmid ([id number])[facility] ([facility])[address]198 [facility] [place] [address] Ketones (U) [Mass/Vol] Negative Normal NEGATIVE [facility] Comment on above: Performed By: #### 5 8077-9 ####GARRY Schmid ([id number])[facility] ([facility])[address]88 [place] [address] Leukocyte esterase Auto test strip Ql (U) Negative Normal NEGATIVE [facility] Comment on above: Performed By: #### 5 8077-9 ####GARRY PEREZ L (32286)[facility] ([facility])[address]55 [place] [address] Nitrite Auto test strip Ql (U) Negative Normal NEGATIVE [facility] Comment on above: Performed By: #### 5 8077-9 ####GARRY Schmid ([id number])[facility] ([facility])[address]62 [place] [address] pH (U) 6.5 [pH] Normal 5.0, 5.5, 6.0, 6.5, 7.0, 7.5, 8.0 [facility] Comment on above: Performed By: #### 5 8077-9 ####GARRY Schmid (49165)[facility] ([facility])[address] [place] [address] Protein (U) [Mass/Vol] Negative Normal NEGATIVE, 10 (TRACE), 20 (TRACE) [facility] Comment on above: Performed By: #### 5 8077-9 ####GARRY Schmid ([id number])[facility] ([facility])[address] [place] [address] RBC (U) [#/Vol] Negative Normal NEGATIVE [facility] Comment on above: Performed By: #### 5 8077-9 ####GARRY Schmid ([id number])[facility] ([facility])[address] [place] [address] Specific gravity (U) [Rel density] 1.032 Normal 1.005-1.035 [facility] Comment on above: Performed By: #### 5 8077-9 ####GARRY Schmid ([id number])[facility] ([facility])[address]35 [place] [address] Urobilinogen (U) [Mass/Vol] Normal Normal Normal [facility] Comment on above: Performed By: #### 5 8077-9 ####GARRY Schmid ([id number])[facility] ([facility])[address] [place] [address] Urinalysis complete panel (U )on 10-28-2023 Appearance (U) Clear Normal Clear [facility] Comment on above: Performed By: #### 2 4356-8 ####GARRY Schmid ([id number])[facility] ([facility])[address]33 [place] [address] Bilirubin (U) [Mass/Vol] Negative Normal NEGATIVE [facility] Comment on above: Performed By: #### 2 4356-8 ####GARRY Schmid (49348)[facility] ([facility])[address] [place] [address] Color (U) Light-Yellow Normal Light-Yellow , Yellow, Dark-Yellow [facility] Comment on above: Performed By: #### 2 4356-8 ####GARRY Schmid ([id number])[facility] ([facility])[address]013 [place] [address] Glucose Auto test strip (U) [Mass/Vol] Normal Normal Normal [facility] Comment on above: Performed By: #### 2 4356-8 ####GARRY Schmid ([id number])[facility] ([facility])[address] [place] [address] Ketones (U) [Mass/Vol] Negative Normal NEGATIVE [facility] Comment on above: Performed By: #### 2 4356-8 ####GARRY Schmid ([id number])[facility] ([facility])[address]68 [place] [address] Leukocyte esterase Auto test strip Ql (U) 25 Kelly/???L Abnormal NEGATIVE [facility] Comment on above: Performed By: #### 2 4356-8 ####GARRY Schmid ([id number])[facility] ([facility])[address] [place] [address] Nitrite Auto test strip Ql (U) Negative Normal NEGATIVE [facility] Comment on above: Performed By: #### 2 4356-8 ####GARRY Schmid (50443)[facility] ([facility])[address]24 [place] [address] pH (U) 6.5 [pH] Normal 5.0, 5.5, 6.0, 6.5, 7.0, 7.5, 8.0 [facility] Comment on above: Performed By: #### 2 4356-8 ####GARRY PEREZ L ([id number])[facility] ([facility])[address]017 [place] [address] Protein (U) [Mass/Vol] Negative Normal NEGATIVE, 10 (TRACE), 20 (TRACE) [facility] Comment on above: Performed By: #### 2 4356-8 ####GARRY ALANIZER L (87136)[facility] ([facility])[address]88 [place] [address] RBC (U) [#/Vol] Negative Normal NEGATIVE [facility] Comment on above: Performed By: #### 2 4356-8 ####GARRY PEREZ L (77165)[facility] ([facility])[address] [place] [address] Specific gravity (U) [Rel density] 1.030 Normal 1.005-1.035 [facility] Comment on above: Performed By: #### 2 4356-8 ####GARRY SHIRLEYTZER L ([id number])[facility] ([facility])[address]291 [place] [address] Urobilinogen (U) [Mass/Vol] Normal Normal Normal [facility] Comment on above: Performed By: #### 2 4356-8 ####GARRY ALANIZER L (27786)[facility] ([facility])[address] [place] [address] Urinalysis microscopic panel Auto Ql (U)on 10-28-2023 Epithelial cells.squamous Auto (Urine sed) [#/Area] 1-9 (SPARSE) Normal Reference range not established. [facility] Comment on above: Performed By: #### 5 3315-8 ####GARRY NGMOTZER L ([id number])[facility] ([facility])[address]121 [place] [address] Mucus Auto (Urine sed) [#/Area] FEW Normal Reference range not established. [facility] Comment on above: Performed By: #### 5 3315-8 ####GARRY SHIRLEYTZER L ([id number])[facility] ([facility])[address] [place] [address] RBC Auto (Urine sed) [#/Area] 1-2 Normal NONE, 1-2, 3-5 [facility] Comment on above: Performed By: #### 5 3315-8 ####GARYR Schmid ([id number])[facility] ([facility])[address]75 [place] [address] WBC Auto (Urine sed) [#/Area] 1-5 Normal 1-5, NONE [facility] Comment on above: Performed By: #### 5 3315-8 ####GARRY Schmid ([id number])[facility] ([facility])[address] [place] [address] CBC panel Auto (Bld)on 10-27 Erythrocyte distribution width (RBC) [Ratio] 14.6 % High 11.5-14.5 [facility] Comment on above: Performed By: #### 5 8410-2 ####GARRY Schmid ([id number])[facility] ([facility])[address] [place] [address] Hematocrit (Bld) [Volume fraction] 25.7 % Low 36.0-46.0 [facility] Comment on above: Performed By: #### 5 8410-2 ####GARRY Schmid ([id number])[facility] ([facility])[address] [place] [address] Hemoglobin (Bld) [Mass/Vol] 8.5 g/dL Low 12.0-16.0 [facility] Comment on above: Performed By: #### 5 8410-2 ####GARRY Schmid ([id number])[facility] ([facility])[address] [place] [address] MCH (RBC) [Entitic mass] 29.9 pg Normal 26.0-34.0 [facility] Comment on above: Performed By: #### 5 8410-2 ####GARRY Schmid ([id number])[facility] ([facility])[address] [place] [address] MCHC (RBC) [Mass/Vol] 33.1 g/dL Normal 32.0-36.0 [facility] Comment on above: Performed By: #### 5 8410-2 ####GARRY Schmid ([id number])[facility] ([facility])[address] [place] [address] MCV (RBC) [Entitic vol] 91 fL Normal 80-100 [facility] Comment on above: Performed By: #### 5 8410-2 ####GARRY Schmid ([id number])[facility] ([facility])[address] [place] [address] Nucleated RBC/100 WBC (Bld) [Ratio] 0.5 /100 WBCs High 0.0-0.0 [facility] Comment on above: Performed By: #### 5 8410-2 ####GARRY Schmid ([id number])[facility] ([facility])[address] [place] [address] Platelets (Bld) [#/Vol] 1229 x10*3/uL High 150-450 [facility] Comment on above: Performed By: #### 5 8410-2 ####GARRY Schmid ([id number])[facility] ([facility])[address] [place] [address] RBC (Bld) [#/Vol] 2.84 x10*6/uL Low 4.00-5.20 [facility] Comment on above: Performed By: #### 5 8410-2 ####GARRY Schmid ([id number])[facility] ([facility])[address] [place] [address] WBC (Bld) [#/Vol] 11.8 x10*3/uL High 4.4-11.3 [facility] Comment on above: Performed By: #### 5 8410-2 ####GARRY Schmid ([id number])[facility] ([facility])[address] [place] [address] Comprehensive metabolic 2000 panelon 10-27-2023 Albumin BCP dye [Mass/Vol] 2.4 g/dL Low 3.4-5.0 [facility] Comment on above: Performed By: #### 2 4323-8 ####GARRY Schmid ([id number])[facility] ([facility])[address] [place] [address] ALP [Catalytic activity/Vol] 101 U/L Normal 33-110 [facility] Comment on above: Performed By: #### 2 4323-8 ####GARRY Schmid ([id number])[facility] ([facility])[address] [place] [address] ALT With P-5'-P [Catalytic activity/Vol] 7 U/L Normal 7-45 [facility] Comment on above: Result Comment: Gianna ents treated with Sulfasalazine may generate falsely decreased results for ALT. Performed By: #### 2 4323-8 ####GARRY Schmid ([id number])[facility] ([facility])[address] [place] [address] Anion gap [Moles/Vol] 12 mmol/L Normal 10-20 [facility] Comment on above: Performed By: #### 2 4323-8 ####GARRY Schmid ([id number])[facility] ([facility])[address] [place] [address] AST With P-5'-P [Catalytic activity/Vol] 11 U/L Normal 9-39 [facility] Comment on above: Performed By: #### 2 4323-8 ####GARRY Schmid ([id number])[facility] ([facility])[address] [place] [address] Bilirubin [Mass/Vol] 0.1 mg/dL Normal 0.0-1.2 [facility] Comment on above: Performed By: #### 2 4323-8 ####GARRY Schmid ([id number])[facility] ([facility])[address] [place] [address] Calcium [Mass/Vol] 7.9 mg/dL Low 8.6-10.6 [facility] Comment on above: Performed By: #### 2 4323-8 ####GARRY Schmid ([id number])[facility] ([facility])[address] [place] [address] Chloride [Moles/Vol] 101 mmol/L Normal 98-107 [facility] Comment on above: Performed By: #### 2 4323-8 ####GARRY PEREZ L ([id number])[facility] ([facility])[address] [place] [address] CO2 [Moles/Vol] 27 mmol/L Normal 21-32 [facility] Comment on above: Performed By: #### 2 4323-8 ####GARRY Schmid ([id number])[facility] ([facility])[address] [place] [address] Creatinine [Mass/Vol] 0.83 mg/dL Normal 0.50-1.05 [facility] Comment on above: Performed By: #### 2 4323-8 ####GARRY Schmid ([id number])[facility] ([facility])[address] [place] [address] GFR/1.73 sq M.predicted MDRD (S/P/Bld) [Vol rate/Area] mL/min/{1.73_m2} Normal >60 [facility] Comment on above: Result Comment: Calc ulations of estimated GFR are performed using the 2020 CKD-EPI Study Refit equation without the race variable for the IDMS-Traceable creatinine methods.https://jasn.asnjournals.org/content/early// N.5985941110 Performed By: #### 2 4323-8 ####GARRY Schmid ([id number])[facility] ([facility])[address] [place] [address] Glucose [Mass/Vol] 190 mg/dL High 74-99 [facility] Comment on above: Performed By: #### 2 4323-8 ####GARRY Schmid ([id number])[facility] ([facility])[address] [place] [address] Potassium [Moles/Vol] 4.1 mmol/L Normal 3.5-5.3 [facility] Comment on above: Performed By: #### 2 4323-8 ####GARRY Schmid ([id number])[facility] ([facility])[address] [place] [address] Protein [Mass/Vol] 6.0 g/dL Low 6.4-8.2 [facility] Comment on above: Performed By: #### 2 4323-8 ####GARRY Schmid ([id number])[facility] ([facility])[address] [place] [address] Sodium [Moles/Vol] 136 mmol/L Normal 136-145 [facility] Comment on above: Performed By: #### 2 4323-8 ####GARRY Schmid ([id number])[facility] ([facility])[address] [place] [address] Urea nitrogen [Mass/Vol] 7 mg/dL Normal 6-23 [facility] Comment on above: Performed By: #### 2 4323-8 ####GARRY Schmid ([id number])[facility] ([facility])[address] [place] [address] Glucose Test strip manual (B ld) [Mass/Vol]on 10-27-2023 Glucose [Mass/Vol] 222 mg/dL High 74-99 [facility] Comment on above: Performed By: #### 2 341-6 ####GARRY Schmid ([id number])[facility] ([facility])[address] [place] [address] Glucose [Mass/Vol] 100 mg/dL High 74-99 [facility] Comment on above: Performed By: #### 2 341-6 ####GARRY Schmid ([id number])[facility] ([facility])[address] [place] [address] Glucose [Mass/Vol] 75 mg/dL Normal 74-99 [facility] Comment on above: Performed By: #### 2 341-6 ####GARRY Schmid ([id number])[facility] ([facility])[address] [place] [address] Glucose [Mass/Vol] 101 mg/dL High 74-99 [facility] Comment on above: Performed By: #### 2 341-6 ####GARRY Schmid ([id number])[facility] ([facility])[address] [place] [address] Glucose [Mass/Vol] 62 mg/dL Low 74-99 [facility] Comment on above: Performed By: #### 2 341-6 ####GARRY Schmid ([id number])[facility] ([facility])[address] [place] [address] Glucose [Mass/Vol] 61 mg/dL Low 74-99 [facility] Comment on above: Performed By: #### 2 341-6 ####GARRY Schmid ([id number])[facility] ([facility])[address] [place] [address] Glucose [Mass/Vol] 191 mg/dL High 74-99 [facility] Comment on above: Performed By: #### 2 341-6 ####GARRY Schmid ([id number])[facility] ([facility])[address] [place] [address] Magnesiumon 10-27-2023 Magnesium [Mass/Vol] 2.28 mg/dL Normal 1.60-2.40 [facility] Comment on above: Performed By: #### 1 9123-9 ####GARRY Schmid ([id number])[facility] ([facility])[address] [place] [address] CBC panel Auto (Bld)on 10-26 Erythrocyte distribution width (RBC) [Ratio] 15.6 % High 11.5-14.5 [facility] Comment on above: Performed By: #### 5 8410-2 ####GARRY Schmid ([id number])[facility] ([facility])[address] [place] [address] Hematocrit (Bld) [Volume fraction] 24.7 % Low 36.0-46.0 [facility] Comment on above: Performed By: #### 5 8410-2 ####GARRY Schmid ([id number])[facility] ([facility])[address] [place] [address] Hemoglobin (Bld) [Mass/Vol] 7.8 g/dL Low 12.0-16.0 [facility] Comment on above: Performed By: #### 5 8410-2 ####GARRY Schmid ([id number])[facility] ([facility])[address] [place] [address] MCH (RBC) [Entitic mass] 30.5 pg Normal 26.0-34.0 [facility] Comment on above: Performed By: #### 5 8410-2 ####GARRY Schmid ([id number])[facility] ([facility])[address] [place] [address] MCHC (RBC) [Mass/Vol] 31.6 g/dL Low 32.0-36.0 [facility] Comment on above: Performed By: #### 5 8410-2 ####GARRY Schmid ([id number])[facility] ([facility])[address] [place] [address] MCV (RBC) [Entitic vol] 97 fL Normal 80-100 [facility] Comment on above: Performed By: #### 5 8410-2 ####GARRY Schmid ([id number])[facility] ([facility])[address] [place] [address] Nucleated RBC/100 WBC (Bld) [Ratio] 0.4 /100 WBCs High 0.0-0.0 [facility] Comment on above: Performed By: #### 5 8410-2 ####GARRY Schmid ([id number])[facility] ([facility])[address] [place] [address] Platelets (Bld) [#/Vol] 1082 x10*3/uL High 150-450 [facility] Comment on above: Performed By: #### 5 8410-2 ####GARRY Schmid ([id number])[facility] ([facility])[address] [place] [address] RBC (Bld) [#/Vol] 2.56 x10*6/uL Low 4.00-5.20 [facility] Comment on above: Performed By: #### 5 8410-2 ####GARRY Schmid ([id number])[facility] ([facility])[address] [place] [address] WBC (Bld) [#/Vol] 13.2 x10*3/uL High 4.4-11.3 [facility] Comment on above: Performed By: #### 5 8410-2 ####GARRY Schmid ([id number])[facility] ([facility])[address] [place] [address] Comprehensive metabolic 2000 panelon 10-26-2023 Albumin BCP dye [Mass/Vol] 2.2 g/dL Low 3.4-5.0 [facility] Comment on above: Performed By: #### 2 4323-8 ####GARRY Schmid ([id number])[facility] ([facility])[address] [place] [address] ALP [Catalytic activity/Vol] 109 U/L Normal 33-110 [facility] Comment on above: Performed By: #### 2 4323-8 ####GARRY Schmid ([id number])[facility] ([facility])[address] [place] [address] ALT With P-5'-P [Catalytic activity/Vol] 8 U/L Normal 7-45 [facility] Comment on above: Result Comment: Gianna ents treated with Sulfasalazine may generate falsely decreased results for ALT. Performed By: #### 2 4323-8 ####GARRY Schmid ([id number])[facility] ([facility])[address] [place] [address] Anion gap [Moles/Vol] 12 mmol/L Normal 10-20 [facility] Comment on above: Performed By: #### 2 4323-8 ####GARRY Schmid ([id number])[facility] ([facility])[address] [place] [address] AST With P-5'-P [Catalytic activity/Vol] 12 U/L Normal 9-39 [facility] Comment on above: Performed By: #### 2 4323-8 ####GARRY Schmid ([id number])[facility] ([facility])[address] [place] [address] Bilirubin [Mass/Vol] 0.1 mg/dL Normal 0.0-1.2 [facility] Comment on above: Performed By: #### 2 4323-8 ####GARRY Schmid ([id number])[facility] ([facility])[address]124 [place] [address] Calcium [Mass/Vol] 7.7 mg/dL Low 8.6-10.6 [facility] Comment on above: Performed By: #### 2 4323-8 ####GARRY Schmid ([id number])[facility] ([facility])[address] [place] [address] Chloride [Moles/Vol] 100 mmol/L Normal 98-107 [facility] Comment on above: Performed By: #### 2 4323-8 ####GARRY Schmid ([id number])[facility] ([facility])[address]99 [place] [address] CO2 [Moles/Vol] 28 mmol/L Normal 21-32 [facility] Comment on above: Performed By: #### 2 4323-8 ####GARRY Schmid ([id number])[facility] ([facility])[address] [facility] [address] Creatinine [Mass/Vol] 0.83 mg/dL Normal 0.50-1.05 [facility] Comment on above: Performed By: #### 2 4323-8 ####GARRY Schmid ([id number])[facility] ([facility])[address]139 [place] [address] GFR/1.73 sq M.predicted MDRD (S/P/Bld) [Vol rate/Area] mL/min/{1.73_m2} Normal >60 [facility] Comment on above: Result Comment: Calc ulations of estimated GFR are performed using the 2020 CKD-EPI Study Refit equation without the race variable for the IDMS-Traceable creatinine methods.https://jasn.asnjournals.org/content/early/ N.5048301839 Performed By: #### 2 4323-8 ####GARRY Schmid ([id number])[facility] ([facility])[address]185 [place] [address] Glucose [Mass/Vol] 253 mg/dL High 74-99 [facility] Comment on above: Performed By: #### 2 4323-8 ####GARRY Schmid ([id number])[facility] ([facility])[address] [place] [address] Potassium [Moles/Vol] 4.9 mmol/L Normal 3.5-5.3 [facility] Comment on above: Performed By: #### 2 4323-8 ####GARRY Schmid ([id number])[facility] ([facility])[address] [place] [address] Protein [Mass/Vol] 5.1 g/dL Low 6.4-8.2 [facility] Comment on above: Performed By: #### 2 4323-8 ####GARRY Schmid ([id number])[facility] ([facility])[address]70 [place] [address] Sodium [Moles/Vol] 135 mmol/L Low 136-145 [facility] Comment on above: Performed By: #### 2 4323-8 ####GARRY Schmid ([id number])[facility] ([facility])[address] [place] [address] Urea nitrogen [Mass/Vol] 7 mg/dL Normal 6- [facility] Comment on above: Performed By: #### 2 4323-8 ####GARRY Schmid ([id number])[facility] ([facility])[address] [place] [address] Glucose Test strip manual (B ld) [Mass/Vol]on 10-26-2023 Glucose [Mass/Vol] 130 mg/dL High [address] [place] [address] Comment on above: Performed By: #### 2 341-6 ####GARRY Schmid ([id number])[facility] ([facility])[address]52 [place] [address] Glucose [Mass/Vol] 200 mg/dL High [address] [place] [address] Comment on above: Performed By: #### 2 341-6 ####GARRY Schmid ([id number])[facility] ([facility])[address] [place] [address] Glucose [Mass/Vol] 132 mg/dL High [address] [place] [address] Comment on above: Performed By: #### 2 341-6 ####GARRY Schmid (98461)[facility] ([facility])[address] [place] [address] Glucose [Mass/Vol] 193 mg/dL High [address] [place] [address] Comment on above: Performed By: #### 2 341-6 ####GARRY PEREZ L ([id number])[facility] ([facility])[address] [place] [address] Glucose [Mass/Vol] 300 mg/dL High [address] [place] [address] Comment on above: Performed By: #### 2 341-6 ####GARRY PEREZ L ([id number])[facility] ([facility])[address]794 [place] [address] Glucose [Mass/Vol] 403 mg/dL High 74-99 [facility] Comment on above: Performed By: #### 2 341-6 ####GARRY Schmid ([id number])[facility] ([facility])[address]60 [place] [address] Glucose [Mass/Vol] 241 mg/dL High 74-99 [facility] Comment on above: Performed By: #### 2 341-6 ####GARRY Schmid ([id number])[facility] ([facility])[address]75 [place] [address] Magnesiumon 10-26-2023 Magnesium [Mass/Vol] 2.37 mg/dL Normal 1.60-2.40 [facility] Comment on above: Performed By: #### 1 9123-9 ####GARRY Schmid ([id number])[facility] ([facility])[address] [place] [address] CBC panel Auto (Bld)on 10-25 Erythrocyte distribution width (RBC) [Ratio] 15.5 % High 11.5-14.5 [facility] Comment on above: Performed By: #### 5 8410-2 ####GARRY Schmid ([id number])[facility] ([facility])[address] [place] [address] Hematocrit (Bld) [Volume fraction] 23.5 % Low 36.0-46.0 [facility] Comment on above: Performed By: #### 5 8410-2 ####GARRY Schmid (66603)[facility] ([facility])[address] [place] [address] Hemoglobin (Bld) [Mass/Vol] 7.7 g/dL Low 12.0-16.0 [facility] Comment on above: Performed By: #### 5 8410-2 ####GARRY Schmid ([id number])[facility] ([facility])[address] [place] [address] MCH (RBC) [Entitic mass] 30.9 pg Normal 26.0-34.0 [facility] Comment on above: Performed By: #### 5 8410-2 ####GARRY Schmid ([id number])[facility] ([facility])[address]409 [place] [address] MCHC (RBC) [Mass/Vol] 32.8 g/dL Normal 32.0-36.0 [facility] Comment on above: Performed By: #### 5 8410-2 ####GARRY Schmid ([id number])[facility] ([facility])[address]27 [place] [address] MCV (RBC) [Entitic vol] 94 fL Normal 80-100 [facility] Comment on above: Performed By: #### 5 8410-2 ####GARRY Schmid ([id number])[facility] ([facility])[address] [place] [address] Nucleated RBC/100 WBC (Bld) [Ratio] 0.4 /100 WBCs High 0.0-0.0 [facility] Comment on above: Performed By: #### 5 8410-2 ####GARRY Schmid ([id number])[facility] ([facility])[address]67 [place] [address] Platelets (Bld) [#/Vol] 924 x10*3/uL High 150-450 [facility] Comment on above: Performed By: #### 5 8410-2 ####GARRY Schmid ([id number])[facility] ([facility])[address] [place] [address] RBC (Bld) [#/Vol] 2.49 x10*6/uL Low 4.00-5.20 [facility] Comment on above: Performed By: #### 5 8410-2 ####GARRY Schmid ([id number])[facility] ([facility])[address] [place] [address] WBC (Bld) [#/Vol] 15.9 x10*3/uL High 4.4-11.3 [facility] Comment on above: Performed By: #### 5 8410-2 ####GARRY Schmid ([id number])[facility] ([facility])[address] [place] [address] John 10-25-2023 CNPN Refill ([facility]) -------- JULIETH SPENCER ([id number]) 1985 F Date Time Provider Department 10/25/23 RAMOS PAREKH [facility] During your visit today, we recorded the following information about you: Teresa Carias 10/25/2023 4:47 PM Signed Received call from patient who calls office. Regarding refills for oxycodone 15 mg tablets /Hydromorphone 8 mg tablets and Protonix 40 mg tablets . and patient stated she is currently at Please call [phone] Raffi Catsro RN 10/25/2023 4:52 PM Signed Next visit [...] mouth every 6 hours as needed. - oyavjt-tuiphsbw-vsddnju (CREON) 36,000-114,000- 180,000 unit delayed release capsule [...] BAQSIMI 3 mg/actuation nasal spray Use 1 [place] in the nose as needed. - insulin [...] in Crohn's (more content not included)... Normal [facility] metabolic 2000 panelon 10-25-2023 Albumin BCP dye [Mass/Vol] 2.1 g/dL Low 3.4-5.0 [facility] Comment on above: Performed By: #### 2 4323-8 ####GARRY Schmid ([id number])[facility] ([facility])[address] [place] [address] ALP [Catalytic activity/Vol] 104 U/L Normal 33-110 [facility] Comment on above: Performed By: #### 2 4323-8 ####GARRY Schmid ([id number])[facility] ([facility])[address] [place] [address] ALT With P-5'-P [Catalytic activity/Vol] 7 U/L Normal 7-45 [facility] Comment on above: Result Comment: Gianna ents treated with Sulfasalazine may generate falsely decreased results for ALT. Performed By: #### 2 4323-8 ####GARRY Schmid ([id number])[facility] ([facility])[address] [place] [address] Anion gap [Moles/Vol] 12 mmol/L Normal 10-20 [facility] Comment on above: Performed By: #### 2 4323-8 ####GARRY Schmid ([id number])[facility] ([facility])[address] [place] [address] AST With P-5'-P [Catalytic activity/Vol] 12 U/L Normal 9-39 [facility] Comment on above: Performed By: #### 2 4323-8 ####GARRY Schmid ([id number])[facility] ([facility])[address] [place] [address] Bilirubin [Mass/Vol] 0.1 mg/dL Normal 0.0-1.2 [facility] Comment on above: Performed By: #### 2 4323-8 ####GARRY Schmid ([id number])[facility] ([facility])[address] [place] [address] Calcium [Mass/Vol] 7.5 mg/dL Low 8.6-10.6 [facility] Comment on above: Performed By: #### 2 4323-8 ####GARRY Schmid ([id number])[facility] ([facility])[address] [place] [address] Chloride [Moles/Vol] 98 mmol/L Normal 98-107 [facility] Comment on above: Performed By: #### 2 4323-8 ####GARRY Schmid ([id number])[facility] ([facility])[address] [place] [address] CO2 [Moles/Vol] 29 mmol/L Normal 21-32 [facility] Comment on above: Performed By: #### 2 4323-8 ####GARRY Schmid ([id number])[facility] ([facility])[address] [place] [address] Creatinine [Mass/Vol] 0.82 mg/dL Normal 0.50-1.05 [facility] Comment on above: Performed By: #### 2 4323-8 ####GARRY Schmid ([id number])[facility] ([facility])[address] [place] [address] GFR/1.73 sq M.predicted MDRD (S/P/Bld) [Vol rate/Area] mL/min/{1.73_m2} Normal >60 [facility] Comment on above: Result Comment: Calc ulations of estimated GFR are performed using the 2020 CKD-EPI Study Refit equation without the race variable for the IDMS-Traceable creatinine methods.https://jasn.asnjournals.org/content// N.0737732748 Performed By: #### 2 4323-8 ####GARRY Schmid ([id number])[facility] ([facility])[address] [place] [address] Glucose [Mass/Vol] 269 mg/dL High 74-99 [facility] Comment on above: Performed By: #### 2 4323-8 ####GARRY Schmid ([id number])[facility] ([facility])[address] [place] [address] Potassium [Moles/Vol] 4.3 mmol/L Normal 3.5-5.3 [facility] Comment on above: Performed By: #### 2 4323-8 ####GARRY Schmid ([id number])[facility] ([facility])[address] [place] [address] Protein [Mass/Vol] 5.0 g/dL Low 6.4-8.2 [facility] Comment on above: Performed By: #### 2 4323-8 ####GARRY Schmid ([id number])[facility] ([facility])[address] [place] [address] Sodium [Moles/Vol] 135 mmol/L Low 136-145 [facility] Comment on above: Performed By: #### 2 4323-8 ####GARRY Schmid ([id number])[facility] ([facility])[address] [place] [address] Urea nitrogen [Mass/Vol] 7 mg/dL Normal 6-23 [facility] Comment on above: Performed By: #### 2 4323-8 ####GARRY Schmid ([id number])[facility] ([facility])[address] [place] [address] Glucose Test strip manual (B ld) [Mass/Vol]on 10-25-2023 Glucose [Mass/Vol] 158 mg/dL High 74-99 [facility] Comment on above: Performed By: #### 2 341-6 ####GARRY Schmid ([id number])[facility] ([facility])[address] [place] [address] Glucose [Mass/Vol] 140 mg/dL High 74-99 [facility] Comment on above: Performed By: #### 2 341-6 ####GARRY Schmid ([id number])[facility] ([facility])[address] [place] [address] Glucose [Mass/Vol] 224 mg/dL High 74-99 [facility] Comment on above: Performed By: #### 2 341-6 ####GARRY Schmid ([id number])[facility] ([facility])[address] [place] [address] Glucose [Mass/Vol] 250 mg/dL High 74-99 [facility] Comment on above: Performed By: #### 2 341-6 ####GARRY Schmid ([id number])[facility] ([facility])[address] [place] [address] Glucose [Mass/Vol] 158 mg/dL High 74-99 [facility] Comment on above: Performed By: #### 2 341-6 ####GARRY Schmid ([id number])[facility] ([facility])[id number] [place] [address] Magnesiumon 10-25-2023 Magnesium [Mass/Vol] 2.21 mg/dL Normal 1.60-2.40 [facility] Comment on above: Performed By: #### 1 9123-9 ####GARRY Schmid ([id number])[facility] ([facility])[id number] [place] [address] CBC panel Auto (Bld)on 10-24 Erythrocyte distribution width (RBC) [Ratio] 15.7 % High 11.5-14.5 [facility] Comment on above: Performed By: #### 5 8410-2 ####GARRY Schmid ([id number])[facility] ([facility])[address] [place] [address] Hematocrit (Bld) [Volume fraction] 24.8 % Low 36.0-46.0 [facility] Comment on above: Performed By: #### 5 8410-2 ####GARRY Schmid ([id number])[facility] ([facility])[address] [place] [address] Hemoglobin (Bld) [Mass/Vol] 8.3 g/dL Low 12.0-16.0 [facility] Comment on above: Performed By: #### 5 8410-2 ####GARRY Schmid ([id number])[facility] ([facility])[address] [place] [address] MCH (RBC) [Entitic mass] 30.7 pg Normal 26.0-34.0 [facility] Comment on above: Performed By: #### 5 8410-2 ####GARRY Schmid ([id number])[facility] ([facility])[address] [place] [address] MCHC (RBC) [Mass/Vol] 33.5 g/dL Normal 32.0-36.0 [facility] Comment on above: Performed By: #### 5 8410-2 ####GARRY Schmid ([id number])[facility] ([facility])[address] [place] [address] MCV (RBC) [Entitic vol] 92 fL Normal 80-100 [facility] Comment on above: Performed By: #### 5 8410-2 ####GARRY Schmid ([id number])[facility] ([facility])[address] [place] [address] Nucleated RBC/100 WBC (Bld) [Ratio] 0.9 /100 WBCs High 0.0-0.0 [facility] Comment on above: Performed By: #### 5 8410-2 ####GARRY Schmid ([id number])[facility] ([facility])[address] [place] [address] Platelets (Bld) [#/Vol] 856 x10*3/uL High 150-450 [facility] Comment on above: Performed By: #### 5 8410-2 ####GARRY Schmid ([id number])[facility] ([facility])[address] [place] [address] RBC (Bld) [#/Vol] 2.70 x10*6/uL Low 4.00-5.20 [facility] Comment on above: Performed By: #### 5 8410-2 ####GARRY Schmid ([id number])[facility] ([facility])[address] [place] [address] WBC (Bld) [#/Vol] 14.1 x10*3/uL High 4.4-11.3 [facility] Comment on above: Performed By: #### 5 8410-2 ####GARRY Schmid ([id number])[facility] ([facility])[address] [place] [address] ABDOMEN PELVIS W IV CONTR Iris 10-24-2023 CT ABDOMEN PELVIS W IV CONTRAST Normal [facility] Comprehensive metabolic 2000 panelon 10-24-2023 Albumin BCP dye [Mass/Vol] 2.2 g/dL Low 3.4-5.0 [facility] Comment on above: Performed By: #### 2 4323-8 ####GARRY Schmid ([id number])[facility] ([facility])[address] [place] [address] ALP [Catalytic activity/Vol] 109 U/L Normal 33-110 [facility] Comment on above: Performed By: #### 2 4323-8 ####GARRY Schmid ([id number])[facility] ([facility])[address] [place] [address] ALT With P-5'-P [Catalytic activity/Vol] 8 U/L Normal 7-45 [facility] Comment on above: Result Comment: Gianna ents treated with Sulfasalazine may generate falsely decreased results for ALT. Performed By: #### 2 4323-8 ####GARRY Schmid ([id number])[facility] ([facility])[address] [place] [address] Anion gap [Moles/Vol] 11 mmol/L Normal 10-20 [facility] Comment on above: Performed By: #### 2 4323-8 ####GARRY Schmid ([id number])[facility] ([facility])[address] [place] [address] AST With P-5'-P [Catalytic activity/Vol] 10 U/L Normal 9-39 [facility] Comment on above: Performed By: #### 2 4323-8 ####GARRY Schmid ([id number])[facility] ([facility])[address] [place] [address] Bilirubin [Mass/Vol] 0.2 mg/dL Normal 0.0-1.2 [facility] Comment on above: Performed By: #### 2 4323-8 ####GARRY Schmid ([id number])[facility] ([facility])[address] [place] [address] Calcium [Mass/Vol] 7.7 mg/dL Low 8.6-10.6 [facility] Comment on above: Performed By: #### 2 4323-8 ####GARRY Schmid ([id number])[facility] ([facility])[address]67 [place] [address] Chloride [Moles/Vol] 100 mmol/L Normal 98-107 [facility] Comment on above: Performed By: #### 2 4323-8 ####GARRY Schmid ([id number])[facility] ([facility])[address] [place] [address] CO2 [Moles/Vol] 32 mmol/L Normal 21-32 [facility] Comment on above: Performed By: #### 2 4323-8 ####GARRY Schmid ([id number])[facility] ([facility])[address] [place] [address] Creatinine [Mass/Vol] 0.65 mg/dL Normal 0.50-1.05 [facility] Comment on above: Performed By: #### 2 4323-8 ####GARRY Schmid ([id number])[facility] ([facility])[address] [place] [address] GFR/1.73 sq M.predicted MDRD (S/P/Bld) [Vol rate/Area] mL/min/{1.73_m2} Normal >60 [facility] Comment on above: Result Comment: Calc ulations of estimated GFR are performed using the 2020 CKD-EPI Study Refit equation without the race variable for the IDMS-Traceable creatinine methods.https://jasn.asnjournals.org/content/early/ N.7085248896 Performed By: #### 2 4323-8 ####GARRY PEREZ L ([id number])[facility] ([facility])[address] [place] [address] Glucose [Mass/Vol] 200 mg/dL High 74-99 [facility] Comment on above: Performed By: #### 2 4323-8 ####GARRY PEREZ L ([id number])[facility] ([facility])[address] [place] [address] Potassium [Moles/Vol] 4.3 mmol/L Normal 3.5-5.3 [facility] Comment on above: Performed By: #### 2 4323-8 ####GARRY SHIRLEYTZER L ([id number])[facility] ([facility])[address] [place] [address] Protein [Mass/Vol] 5.0 g/dL Low 6.4-8.2 [facility] Comment on above: Performed By: #### 2 4323-8 ####GARRY NGMOTZER L ([id number])[facility] ([facility])[address] [place] [address] Sodium [Moles/Vol] 139 mmol/L Normal 136-145 [facility] Comment on above: Performed By: #### 2 4323-8 ####GARRY NGMOTZER L (96761)[facility] ([facility])[address] [place] [address] Urea nitrogen [Mass/Vol] 7 mg/dL Normal 6-23 [facility] Comment on above: Performed By: #### 2 4323-8 ####GARRY NGMOTZER L (20968)[facility] ([facility])[address]643 [place] [address] Glucose Test strip manual (B ld) [Mass/Vol]on 10-24-2023 Glucose [Mass/Vol] 125 mg/dL High [address] [place] [address] Comment on above: Performed By: #### 2 341-6 ####GARRY Schmid ([id number])[facility] ([facility])[address]77 [place] [address] Glucose [Mass/Vol] 190 mg/dL High -[address] [place] [address] Comment on above: Performed By: #### 2 341-6 ####GARRY Schmid ([id number])[facility] ([facility])[address] [place] [address] Glucose [Mass/Vol] 97 mg/dL Normal -[address] [place] [address] Comment on above: Performed By: #### 2 341-6 ####GARRY Schmid (14089)[facility] ([facility])[address] [place] [address] Glucose [Mass/Vol] 83 mg/dL Normal -[address] [place] [address] Comment on above: Performed By: #### 2 341-6 ####GARRY Schmid ([id number])[facility] ([facility])[address] [place] [address] Glucose [Mass/Vol] 292 mg/dL High [address] [place] [address] Comment on above: Performed By: #### 2 341-6 ####GARRY Schmid ([id number])[facility] ([facility])[address] [place] [address] Magnesiumon 10-24-2023 Magnesium [Mass/Vol] 2.21 mg/dL Normal 1.60-2.40 [facility] Comment on above: Performed By: #### 1 9123-9 ####GARRY Schmid ([id number])[facility] ([facility])[address] [place] [address] Vancomycin^troughon 10-24-19 24 Vancomycin trough [Mass/Vol] 23.9 ug/mL Critically high 5.0-20.0 [facility] Comment on above: Result Comment: Ther apeutic Ranges: Peak (all ages): 30.0-40.0 ug/mL Trough (all ages): 10.0-20.0 ug/mLVancomycin trough concentrations drawn immediately prior to the next dose at steady-state are preferred for concentration-guided monitoring of patients treated with vancomycin.Reference: Am J Health-Syst Pharm. 2020; 77(11):835-864. Performed By: #### 4 092-3 ####GARRY Schmid ([id number])[facility] ([facility])[address] [place] [address] CBC panel Auto (Bld)on 10-23 Erythrocyte distribution width (RBC) [Ratio] 15.4 % High 11.5-14.5 [facility] Comment on above: Performed By: #### 5 8410-2 ####GARRY Schmid ([id number])[facility] ([facility])[address] [place] [address] Hematocrit (Bld) [Volume fraction] 23.1 % Low 36.0-46.0 [facility] Comment on above: Performed By: #### 5 8410-2 ####GARRY Schmid ([id number])[facility] ([facility])[address] [place] [address] Hemoglobin (Bld) [Mass/Vol] 7.8 g/dL Low 12.0-16.0 [facility] Comment on above: Performed By: #### 5 8410-2 ####GARRY Schmid ([id number])[facility] ([facility])[address]642 [place] [address] MCH (RBC) [Entitic mass] 30.7 pg Normal 26.0-34.0 [facility] Comment on above: Performed By: #### 5 8410-2 ####GARRY Schmid (40603)[facility] ([facility])[address]246 [place] [address] MCHC (RBC) [Mass/Vol] 33.8 g/dL Normal 32.0-36.0 [facility] Comment on above: Performed By: #### 5 8410-2 ####GARRY Schmid (44369)[facility] ([facility])[address]60 [place] [address] MCV (RBC) [Entitic vol] 91 fL Normal 80-100 [facility] Comment on above: Performed By: #### 5 8410-2 ####GARRY Schmid ([id number])[facility] ([facility])[address]862 [place] [address] Nucleated RBC/100 WBC (Bld) [Ratio] 1.4 /100 WBCs High 0.0-0.0 [facility] Comment on above: Performed By: #### 5 8410-2 ####GARRY Schmid ([id number])[facility] ([facility])[address] [place] [address] Platelets (Bld) [#/Vol] 749 x10*3/uL High 150-450 [facility] Comment on above: Performed By: #### 5 8410-2 ####GARRY Schmid ([id number])[facility] ([facility])[address] [place] [address] RBC (Bld) [#/Vol] 2.54 x10*6/uL Low 4.00-5.20 [facility] Comment on above: Performed By: #### 5 8410-2 ####GARRY Schmid ([id number])[facility] ([facility])[address] [place] [address]66[address] WBC (Bld) [#/Vol] 16.2 x10*3/uL High 4.4-11.3 [facility] Comment on above: Performed By: #### 5 8410-2 ####GARRY Schmid ([id number])[facility] ([facility])[address]09 [place] [address] Comprehensive metabolic 2000 panelon 10-23-2023 Albumin BCP dye [Mass/Vol] 2.0 g/dL Low 3.4-5.0 [facility] Comment on above: Performed By: #### 2 4323-8 ####GARRY Schmid ([id number])[facility] ([facility])[address]649 [place] [address] ALP [Catalytic activity/Vol] 121 U/L High 33-110 [facility] Comment on above: Performed By: #### 2 4323-8 ####GARRY Schmid ([id number])[facility] ([facility])[address]374 [place] [address] ALT With P-5'-P [Catalytic activity/Vol] 10 U/L Normal 7-45 [facility] Comment on above: Result Comment: Gianna ents treated with Sulfasalazine may generate falsely decreased results for ALT. Performed By: #### 2 4323-8 ####GARRY Schmid ([id number])[facility] ([facility])[address]40 [place] [address] Anion gap [Moles/Vol] 13 mmol/L Normal 10-20 [facility] Comment on above: Performed By: #### 2 4323-8 ####GARRY Schmid ([id number])[facility] ([facility])[address]75 [place] [address] AST With P-5'-P [Catalytic activity/Vol] 12 U/L Normal 9-39 [facility] Comment on above: Performed By: #### 2 4323-8 ####GARRY Schmid ([id number])[facility] ([facility])[address]97 [place] [address] Bilirubin [Mass/Vol] 0.1 mg/dL Normal 0.0-1.2 [facility] Comment on above: Performed By: #### 2 4323-8 ####GARRY Schmid (94845)[facility] ([facility])[address]254 [place] [address] Calcium [Mass/Vol] 7.6 mg/dL Low 8.6-10.6 [facility] Comment on above: Performed By: #### 2 4323-8 ####GARRY Schmid ([id number])[facility] ([facility])[address]189 [place] [address] Chloride [Moles/Vol] 101 mmol/L Normal 98-107 [facility] Comment on above: Performed By: #### 2 4323-8 ####GARRY PEREZ L ([id number])[facility] ([facility])[address]199 [place] [address] CO2 [Moles/Vol] 29 mmol/L Normal 21-32 [facility] Comment on above: Performed By: #### 2 4323-8 ####GARRY Schmid ([id number])[facility] ([facility])[address]73 [place] [address] Creatinine [Mass/Vol] 0.68 mg/dL Normal 0.50-1.05 [facility] Comment on above: Performed By: #### 2 4323-8 ####GARRY Schmid ([id number])[facility] ([facility])[address]51 [place] [address] GFR/1.73 sq M.predicted MDRD (S/P/Bld) [Vol rate/Area] mL/min/{1.73_m2} Normal >60 [facility] Comment on above: Result Comment: Calc ulations of estimated GFR are performed using the 2020 CKD-EPI Study Refit equation without the race variable for the IDMS-Traceable creatinine methods.https://jasn.asnjournals.org/content/early// N.9071128067 Performed By: #### 2 4323-8 ####GARRY Schmid (97045)[facility] ([facility])[address]893 [place] [address] Glucose [Mass/Vol] 157 mg/dL High 74-99 [facility] Comment on above: Performed By: #### 2 4323-8 ####GARRY Schmid (77105)[facility] ([facility])[address]755 [place] [address] Potassium [Moles/Vol] 4.6 mmol/L Normal 3.5-5.3 [facility] Comment on above: Performed By: #### 2 4323-8 ####GARRY Schmid (39989)[facility] ([facility])[address]65 [place] [address] Protein [Mass/Vol] 4.4 g/dL Low 6.4-8.2 [facility] Comment on above: Performed By: #### 2 4323-8 ####GARRY Schmid ([id number])[facility] ([facility])[address]01 [place] [address] Sodium [Moles/Vol] 138 mmol/L Normal 136-145 [facility] Comment on above: Performed By: #### 2 4323-8 ####GARRY Schmid (65410)[facility] ([facility])[address]69 [place] [address] Urea nitrogen [Mass/Vol] 8 mg/dL Normal 6-23 [facility] Comment on above: Performed By: #### 2 4323-8 ####GARRY Schmid ([id number])[facility] ([facility])[address]20 [place] [address] Glucose Test strip manual (B ld) [Mass/Vol]on 10-23-2023 Glucose [Mass/Vol] 195 mg/dL High 74-99 [facility] Comment on above: Performed By: #### 2 341-6 ####GARRY Schmid ([id number])[facility] ([facility])[address]90 [place] [address] Glucose [Mass/Vol] 163 mg/dL High 74-99 [facility] Comment on above: Performed By: #### 2 341-6 ####GARRY Schmid ([id number])[facility] ([facility])[address]69 [place] [address] Glucose [Mass/Vol] 383 mg/dL High [address] Comment on above: Performed By: #### 2 341-6 ####GARRY Schmid (25341)[facility] ([facility])37645 [place] [address] Glucose [Mass/Vol] 211 mg/dL High [address] [place] [address] Comment on above: Performed By: #### 2 341-6 ####GARRY Schmid (90311)[facility] ([facility])[address] [place] [address] Glucose [Mass/Vol] 198 mg/dL High [address] [place] [address] Comment on above: Performed By: #### 2 341-6 ####GARRY Schmid (40841)[facility] ([facility])[address] [place] [address] Glucose [Mass/Vol] 220 mg/dL High [address] [place] [address] Comment on above: Performed By: #### 2 341-6 ####GARRY Schmid ([id number])[facility] ([facility])[address]642 [place] [address] Glucose [Mass/Vol] 210 mg/dL High [address] [place] [address] Comment on above: Performed By: #### 2 341-6 ####GARRY Schmid (00534)[facility] ([facility])[address]393 [place] [address] Magnesiumon 10-23-2023 Magnesium [Mass/Vol] 2.47 mg/dL High 1.60-2.40 [facility] Comment on above: Performed By: #### 1 9123-9 ####GARRY Schmid ([id number])[facility] ([facility])[address]338 [place] [address] CBC panel Auto (Bld)on 10-22 Erythrocyte distribution width (RBC) [Ratio] 15.0 % High 11.5-14.5 [facility] Comment on above: Performed By: #### 5 8410-2 ####GARRY Schmid ([id number])[facility] ([facility])[address] [place] [address] Hematocrit (Bld) [Volume fraction] 24.7 % Low 36.0-46.0 [facility] Comment on above: Performed By: #### 5 8410-2 ####GRARY Schmid ([id number])[facility] ([facility])[address] [place] [address]226 Hemoglobin (Bld) [Mass/Vol] 8.3 g/dL Low 12.0-16.0 [facility] Comment on above: Performed By: #### 5 8410-2 ####GARRY Schmid (59913)[facility] ([facility])[address] [place] [address] 18092 MCH (RBC) [Entitic mass] 30.9 pg Normal 26.0-34.0 [facility] Comment on above: Performed By: #### 5 8410-2 ####GARRY Schmid ([id number])[facility] ([facility])[address] [place] [address]127 MCHC (RBC) [Mass/Vol] 33.6 g/dL Normal 32.0-36.0 [facility] Comment on above: Performed By: #### 5 8410-2 ####GARRY Schmid (24352)[facility] ([facility])[address]261 [place] [address] MCV (RBC) [Entitic vol] 92 fL Normal 80-100 [facility] Comment on above: Performed By: #### 5 8410-2 ####GARRY Schmid ([id number])[facility] ([facility])[address] [place] [address] 88315 Nucleated RBC/100 WBC (Bld) [Ratio] 0.8 /100 WBCs High 0.0-0.0 [facility] Comment on above: Performed By: #### 5 8410-2 ####GARRY Schmid ([id number])[facility] ([facility])[address]794 [place] [address] Platelets (Bld) [#/Vol] 704 x10*3/uL High 150-450 [facility] Comment on above: Performed By: #### 5 8410-2 ####GARRY Schmid ([id number])[facility] ([facility])[address] [place] [address] RBC (Bld) [#/Vol] 2.69 x10*6/uL Low 4.00-5.20 [facility] Comment on above: Performed By: #### 5 8410-2 ####GARRY Schmid ([id number])[facility] ([facility])[address] [place] [address] WBC (Bld) [#/Vol] 18.0 x10*3/uL High 4.4-11.3 [facility] Comment on above: Performed By: #### 5 8410-2 ####GARRY Schmid ([id number])[facility] ([facility])[address] [place] [address] CT CHEST ABDOMEN PELVIS W IV CONTRASTon 10-22-2023 CT CHEST ABDOMEN PELVIS W IV CONTRAST Normal [facility] Comprehensive metabolic 2000 panelon 10-22-2023 Albumin BCP dye [Mass/Vol] 2.0 g/dL Low 3.4-5.0 [facility] Comment on above: Performed By: #### 2 4323-8 ####GARRY Schmid ([id number])[facility] ([facility])[address] [place] [address] ALP [Catalytic activity/Vol] 111 U/L High 33-110 [facility] Comment on above: Performed By: #### 2 4323-8 ####GARRY Schmid ([id number])[facility] C[facility])[address] [place] [address] ALT With P-5'-P [Catalytic activity/Vol] 13 U/L Normal 7-45 [facility] Comment on above: Result Comment: Gianna ents treated with Sulfasalazine may generate falsely decreased results for ALT. Performed By: #### 2 4323-8 ####GARRY Schmid ([id number])[facility] ([facility])[address] [place] [address] Anion gap [Moles/Vol] 7 mmol/L Low 10-20 [facility] Comment on above: Performed By: #### 2 4323-8 ####GARRY Schmid ([id number])[facility] ([facility])[address] [place] [address] AST With P-5'-P [Catalytic activity/Vol] 14 U/L Normal 9-39 [facility] Comment on above: Performed By: #### 2 4323-8 ####GARRY Schmid ([id number])[facility] ([facility])[address] [place] [address] Bilirubin [Mass/Vol] 0.2 mg/dL Normal 0.0-1.2 [facility] Comment on above: Performed By: #### 2 4323-8 ####GARRY Schmid ([id number])[facility] ([facility])[address] [place] [address] Calcium [Mass/Vol] 7.2 mg/dL Low 8.6-10.6 [facility] Comment on above: Performed By: #### 2 4323-8 ####GARRY Schmid ([id number])[facility] ([facility])[address] [place] [address] Chloride [Moles/Vol] 102 mmol/L Normal 98-107 [facility] Comment on above: Performed By: #### 2 4323-8 ####GARRY Schmid ([id number])[facility] ([facility])[address] [place] [address] CO2 [Moles/Vol] 32 mmol/L Normal 21-32 [facility] Comment on above: Performed By: #### 2 4323-8 ####GARRY Schmid ([id number])[facility] ([facility])[address] [place] [address] Creatinine [Mass/Vol] 0.59 mg/dL Normal 0.50-1.05 [facility] Comment on above: Performed By: #### 2 4323-8 ####GARRY Schmid ([id number])[facility] ([facility])[address] [place] [address] GFR/1.73 sq M.predicted MDRD (S/P/Bld) [Vol rate/Area] mL/min/{1.73_m2} Normal >60 [facility] Comment on above: Result Comment: Calc ulations of estimated GFR are performed using the 2020 CKD-EPI Study Refit equation without the race variable for the IDMS-Traceable creatinine methods.https://jasn.asnjournals.org/content/early/ N.5355177759 Performed By: #### 2 4323-8 ####GARRY Schmid ([id number])[facility] ([facility])[address] [place] [address] Glucose [Mass/Vol] 140 mg/dL High 74-99 [facility] Comment on above: Performed By: #### 2 4323-8 ####GARRY PEREZ L ([id number])[facility] ([facility])[address] [place] [address] Potassium [Moles/Vol] 4.1 mmol/L Normal 3.5-5.3 [facility] Comment on above: Performed By: #### 2 4323-8 ####GARRY PEREZ L ([id number])[facility] ([facility])[address] [place] [address] Protein [Mass/Vol] 4.2 g/dL Low 6.4-8.2 [facility] Comment on above: Performed By: #### 2 4323-8 ####GARRY PEREZ L ([id number])[facility] ([facility])[address] [place] [address] Sodium [Moles/Vol] 137 mmol/L Normal 136-145 [facility] Comment on above: Performed By: #### 2 4323-8 ####GARRY Schmid ([id number])[facility] ([facility])[address] [place] [address] Urea nitrogen [Mass/Vol] 9 mg/dL Normal 6-23 [facility] Comment on above: Performed By: #### 2 4323-8 ####GARRY Schmid ([id number])[facility] ([facility])[address] [place] [address] Glucose Test strip manual (B ld) [Mass/Vol]on 10-22-2023 Glucose [Mass/Vol] 221 mg/dL High [address] [place] [address] Comment on above: Performed By: #### 2 341-6 ####GARRY Schmid ([id number])[facility] ([facility])[address] [place] [address] Glucose [Mass/Vol] 182 mg/dL High -[address] [place] [address] Comment on above: Performed By: #### 2 341-6 ####GARRY Schmid ([id number])[facility] ([facility])[address] [place] [address] Glucose [Mass/Vol] 230 mg/dL High [address] [place] [address] Comment on above: Performed By: #### 2 341-6 ####GARRY Schmid ([id number])[facility] ([facility])[address] [place] [address] Glucose [Mass/Vol] 148 mg/dL High -[address] [place] [address] Comment on above: Performed By: #### 2 341-6 ####GARRY Schmid ([id number])[facility] ([facility])[address]165 [place] [address] Glucose [Mass/Vol] 79 mg/dL Normal 74-99 [facility] Comment on above: Performed By: #### 2 341-6 ####GARRY Schmid ([id number])[facility] ([facility])[address] [facility] [place] [address] Glucose [Mass/Vol] 79 mg/dL Normal 74-99 [facility] Comment on above: Performed By: #### 2 341-6 ####GARRY Schmid ([id number])[facility] ([facility])[address] [place] [address] Glucose [Mass/Vol] 93 mg/dL Normal 74-99 [facility] Comment on above: Performed By: #### 2 341-6 ####GARRY Schmid ([id number])[facility] ([facility])[address] [place] [address] Magnesiumon 10-22-2023 Magnesium [Mass/Vol] 1.94 mg/dL Normal 1.60-2.40 [facility] Comment on above: Performed By: #### 1 9123-9 ####GARRY Schmid ([id number])[facility] ([facility])[address] [place] [address] PICC >5 YR BEDSIDE IMAGINGon 10-22-2023 PICC >5 YR BEDSIDE IMAGING These images are not reportable by radiology and will not be interpreted by Radiologists. Normal [facility] CBC panel Auto (Bld)on 10-21 Erythrocyte distribution width (RBC) [Ratio] 15.1 % High 11.5-14.5 [facility] Comment on above: Performed By: #### 5 8410-2 ####GARRY Schmid ([id number])[facility] ([facility])[address] [place] [address] Hematocrit (Bld) [Volume fraction] 27.6 % Low 36.0-46.0 [facility] Comment on above: Performed By: #### 5 8410-2 ####GARRY Schmid ([id number])[facility] ([facility])[address] [place] [address] Hemoglobin (Bld) [Mass/Vol] 9.0 g/dL Low 12.0-16.0 [facility] Comment on above: Performed By: #### 5 8410-2 ####GARRY Schmid ([id number])[facility] ([facility])[address]184 [place] [address] MCH (RBC) [Entitic mass] 30.7 pg Normal 26.0-34.0 [facility] Comment on above: Performed By: #### 5 8410-2 ####GARRY Schmid ([id number])[facility] ([facility])[address] [place] [address] MCHC (RBC) [Mass/Vol] 32.6 g/dL Normal 32.0-36.0 [facility] Comment on above: Performed By: #### 5 8410-2 ####GARRY Schmid ([id number])[facility] ([facility])[address] [place] [address] MCV (RBC) [Entitic vol] 94 fL Normal 80-100 [facility] Comment on above: Performed By: #### 5 8410-2 ####GARRY Schmid ([id number])[facility] ([facility])[address] [place] [address] Nucleated RBC/100 WBC (Bld) [Ratio] 0.4 /100 WBCs High 0.0-0.0 [facility] Comment on above: Performed By: #### 5 8410-2 ####GARRY Schmid ([id number])[facility] ([facility])[address] [place] [address] Platelets (Bld) [#/Vol] 698 x10*3/uL High 150-450 [facility] Comment on above: Performed By: #### 5 8410-2 ####GARRY Schmid ([id number])[facility] ([facility])[address] [place] [address] RBC (Bld) [#/Vol] 2.93 x10*6/uL Low 4.00-5.20 [facility] Comment on above: Performed By: #### 5 8410-2 ####GARRY Schmid ([id number])[facility] ([facility])[address]184 [place] [address] WBC (Bld) [#/Vol] 24.0 x10*3/uL High 4.4-11.3 [facility] Comment on above: Performed By: #### 5 8410-2 ####GARRY Schmid ([id number])[facility] ([facility])[address]99 [place] [address] Comprehensive metabolic 2000 panelon 10-21-2023 Albumin BCP dye [Mass/Vol] 2.3 g/dL Low 3.4-5.0 [facility] Comment on above: Performed By: #### 2 4323-8 ####GARRY Schmid ([id number])[facility] ([facility])[address]99 [place] [address] ALP [Catalytic activity/Vol] 130 U/L High 33-110 [facility] Comment on above: Performed By: #### 2 4323-8 ####GARRY Schmid ([id number])[facility] ([facility])[address] [place] [address] ALT With P-5'-P [Catalytic activity/Vol] 18 U/L Normal 7-45 [facility] Comment on above: Result Comment: Gianna ents treated with Sulfasalazine may generate falsely decreased results for ALT. Performed By: #### 2 4323-8 ####GARRY Schmid ([id number])[facility] ([facility])[address]894 [place] [address] Anion gap [Moles/Vol] 13 mmol/L Normal 10-20 [facility] Comment on above: Performed By: #### 2 4323-8 ####GARRY Schmid ([id number])[facility] ([facility])[address]666 [place] [address] AST With P-5'-P [Catalytic activity/Vol] 18 U/L Normal 9-39 [facility] Comment on above: Performed By: #### 2 4323-8 ####GARRY Schmid ([id number])[facility] ([facility])[address]82 [place] [address] Bilirubin [Mass/Vol] 0.2 mg/dL Normal 0.0-1.2 [facility] Comment on above: Performed By: #### 2 4323-8 ####GARRY PEREZ L ([id number])[facility] ([facility])[address]26 [place] [address] Calcium [Mass/Vol] 7.8 mg/dL Low 8.6-10.6 [facility] Comment on above: Performed By: #### 2 4323-8 ####GARRY PEREZ L ([id number])[facility] ([facility])[address]223 [place] [address] Chloride [Moles/Vol] 97 mmol/L Low 98-107 [facility] Comment on above: Performed By: #### 2 4323-8 ####GARRY PEREZ L ([id number])[facility] ([facility])[address]335 [place] [address] CO2 [Moles/Vol] 30 mmol/L Normal 21-32 [facility] Comment on above: Performed By: #### 2 4323-8 ####GARRY PEREZ L ([id number])[facility] ([facility])[address]17 [place] [address] Creatinine [Mass/Vol] 0.65 mg/dL Normal 0.50-1.05 [facility] Comment on above: Performed By: #### 2 4323-8 ####GARRY ALANIZER L ([id number])[facility] ([facility])[address]60 [place] [address] GFR/1.73 sq M.predicted MDRD (S/P/Bld) [Vol rate/Area] mL/min/{1.73_m2} Normal >60 [facility] Comment on above: Result Comment: Calc ulations of estimated GFR are performed using the 2020 CKD-EPI Study Refit equation without the race variable for the IDMS-Traceable creatinine methods.https://jasn.asnjournals.org/content// N.4526945032 Performed By: #### 2 4323-8 ####GARRY Schmid ([id number])[facility] ([facility])[address] [place] [address] Glucose [Mass/Vol] 302 mg/dL High 74-99 [facility] Comment on above: Performed By: #### 2 4323-8 ####GARRY Schmid ([id number])[facility] ([facility])[address]349 [place] [address] Potassium [Moles/Vol] 4.6 mmol/L Normal 3.5-5.3 [facility] Comment on above: Performed By: #### 2 4323-8 ####GARRY Schmid ([id number])[facility] ([facility])[address] [place] [address] Protein [Mass/Vol] 4.4 g/dL Low 6.4-8.2 [facility] Comment on above: Performed By: #### 2 4323-8 ####GARRY Schmid ([id number])[facility] ([facility])[address]17 [place] [address] Sodium [Moles/Vol] 135 mmol/L Low 136-145 [facility] Comment on above: Performed By: #### 2 4323-8 ####GARRY PEREZ L ([id number])[facility] ([facility])[address]20 [place] [address] Urea nitrogen [Mass/Vol] 10 mg/dL Normal 6-23 [facility] Comment on above: Performed By: #### 2 4323-8 ####GARRY PEREZ L ([id number])[facility] ([facility])[address]481 [place] [address] Glucose Test strip manual (B ld) [Mass/Vol]on 10-21-2023 Glucose [Mass/Vol] 117 mg/dL High 74[address] [place] [address] Comment on above: Performed By: #### 2 341-6 ####GARRY Schmid ([id number])[facility] ([facility])[address]36 [place] [address] Glucose [Mass/Vol] 100 mg/dL High [address] [place] [address] Comment on above: Performed By: #### 2 341-6 ####GARRY PEREZ L ([id number])[facility] ([facility])[address]372 [place] [address] Glucose [Mass/Vol] 310 mg/dL High [address] [place] [address] Comment on above: Performed By: #### 2 341-6 ####GARRY Schmid ([id number])[facility] ([facility])[address]22 [place] [address] Glucose [Mass/Vol] 380 mg/dL High [address] [place] [address] Comment on above: Performed By: #### 2 341-6 ####GARRY PEREZ L (69153)[facility] ([facility])[address]91 [place] [address] Glucose [Mass/Vol] 300 mg/dL High [address] [place] [address] Comment on above: Performed By: #### 2 341-6 ####GARRY Schmid ([id number])[facility] ([facility])[address]391 [place] [address] Glucose [Mass/Vol] 328 mg/dL High [address] [place] [address] Comment on above: Performed By: #### 2 341-6 ####GARRY PEREZ L ([id number])[facility] ([facility])[address]86 [place] [address] Glucose [Mass/Vol] 99 mg/dL Normal [address] [place] [address] Comment on above: Performed By: #### 2 341-6 ####GARRY NGMOTZLEIGH L ([id number])[facility] ([facility])[address]687 [place] [address] Magnesiumon 02-05-2024 Magnesium [Mass/Vol] 1.94 mg/dL Normal 1.60-2.40 [facility] Comment on above: Performed By: #### 1 9123-9 ####GARRY Schmid ([id number])[facility] ([facility])[address] [place], [place] [address] US GUIDED PERCUTANEOUS PERIT BROWN OR RETROPERITONEAL FLUID COLLECTION DRAINAGEon 10-21-2023 US GUIDED PERCUTANEOUS PERITONEAL OR RETROPERITONEAL FLUID COLLECTION DRAINAGE [facility] Comment on above: Order Comment: Gonzales saldana is to rewire through the liver or take out and replace drain. On CT scan, drain is not in correct position to drain fluid collection. Vancomycinon 10-21-2023 Vancomycin [Mass/Vol] 13.6 ug/mL Normal 5.0-20.0 [facility] Comment on above: Order Comment: Vanco [...] Performed By: #### 2 0578-1 ####GARRY Schmid ([id number])[facility] ([facility])[address] [place] [address] Bacteria identifiedon 2023 Bacteria identified Cx Nom (Bld) [facility] Comment on above: Performed By: #### 6 00-7 ####GARRY Schmid ([id number])[facility] ([facility])[address] [place] [address] CBC panel Auto (Bld)on 10-20 Erythrocyte distribution width (RBC) [Ratio] 15.0 % High 11.5-14.5 [facility] Comment on above: Performed By: #### 5 8410-2 ####GARRY Schmid ([id number])[facility] ([facility])[address]117 [place] [address] Hematocrit (Bld) [Volume fraction] 30.2 % Low 36.0-46.0 [facility] Comment on above: Performed By: #### 5 8410-2 ####GARRY Schmid (19958)[facility] ([facility])[address]663 [place] [address] Hemoglobin (Bld) [Mass/Vol] 9.8 g/dL Low 12.0-16.0 [facility] Comment on above: Performed By: #### 5 8410-2 ####GARRY Schmid (50457)[facility] ([facility])[address]79 [place] [address] MCH (RBC) [Entitic mass] 32.1 pg Normal 26.0-34.0 [facility] Comment on above: Performed By: #### 5 8410-2 ####GARRY Schmid ([id number])[facility] ([facility])[address]228 [place] [address] MCHC (RBC) [Mass/Vol] 32.5 g/dL Normal 32.0-36.0 [facility] Comment on above: Performed By: #### 5 8410-2 ####GARRY Schmid ([id number])[facility] ([facility])[address]60 [place] [address] MCV (RBC) [Entitic vol] 99 fL Normal 80-100 [facility] Comment on above: Performed By: #### 5 8410-2 ####GARRY Schmid ([id number])[facility] ([facility])[address]18 [place] [address] Nucleated RBC/100 WBC (Bld) [Ratio] 0.2 /100 WBCs High 0.0-0.0 [facility] Comment on above: Performed By: #### 5 8410-2 ####GARRY Schmid (69414)[facility] ([facility])[address]94 [place] [address] Platelets (Bld) [#/Vol] 582 x10*3/uL High 150-450 [facility] Comment on above: Performed By: #### 5 8410-2 ####GARRY Schmid ([id number])[facility] ([facility])[address]42 [place] [address] RBC (Bld) [#/Vol] 3.05 x10*6/uL Low 4.00-5.20 [facility] Comment on above: Performed By: #### 5 8410-2 ####GARRY Schmid (24029)[facility] ([facility])[address]39 [place] [address] WBC (Bld) [#/Vol] 22.9 x10*3/uL High 4.4-11.3 [facility] Comment on above: Performed By: #### 5 8410-2 ####GARRY Schmid ([id number])[facility] ([facility])[address] [place] [address] CT ABDOMEN PELVIS W IV CONTR Iris 10-20-2023 CT ABDOMEN PELVIS W IV CONTRAST Normal [facility] Comprehensive metabolic 2000 panelon 10-20-2023 Albumin BCP dye [Mass/Vol] 2.2 g/dL Low 3.4-5.0 [facility] Comment on above: Performed By: #### 2 4323-8 ####GARRY Schmid ([id number])[facility] ([facility])[address]382 [place] [address] ALP [Catalytic activity/Vol] 111 U/L High 33-110 [facility] Comment on above: Performed By: #### 2 4323-8 ####GARRY Schmid ([id number])[facility] ([facility])[address]885 [place] [address] ALT With P-5'-P [Catalytic activity/Vol] 20 U/L Normal 7-45 [facility] Comment on above: Result Comment: Gianna ents treated with Sulfasalazine may generate falsely decreased results for ALT. Performed By: #### 2 4323-8 ####GARRY Schmid ([id number])[facility] ([facility])[address] [place] [address] Anion gap [Moles/Vol] 11 mmol/L Normal 10-20 [facility] Comment on above: Performed By: #### 2 4323-8 ####GARRY Schmid ([id number])[facility] ([facility])[address]002 [place] [address] AST With P-5'-P [Catalytic activity/Vol] 23 U/L Normal 9-39 [facility] Comment on above: Performed By: #### 2 4323-8 ####GARRY Schmid ([id number])[facility] ([facility])[address]82 [place] [address] Bilirubin [Mass/Vol] 0.2 mg/dL Normal 0.0-1.2 [facility] Comment on above: Performed By: #### 2 4323-8 ####GARRY Schmid ([id number])[facility] ([facility])[address]659 [place] [address] Calcium [Mass/Vol] 7.8 mg/dL Low 8.6-10.6 [facility] Comment on above: Performed By: #### 2 4323-8 ####GARRY Schmid ([id number])[facility] ([facility])[address]991 [place] [address] Chloride [Moles/Vol] 95 mmol/L Low 98-107 [facility] Comment on above: Performed By: #### 2 4323-8 ####GARRY Schmid ([id number])[facility] ([facility])[address]38 [place] [address] CO2 [Moles/Vol] 28 mmol/L Normal 21-32 [facility] Comment on above: Performed By: #### 2 4323-8 ####GARRY Schmid ([id number])[facility] ([facility])[address] [place] [address] Creatinine [Mass/Vol] 0.59 mg/dL Normal 0.50-1.05 [facility] Comment on above: Performed By: #### 2 4323-8 ####GARRY Schmid ([id number])[facility] ([facility])[address]28 [place] [address] GFR/1.73 sq M.predicted MDRD (S/P/Bld) [Vol rate/Area] mL/min/{1.73_m2} Normal >60 [facility] Comment on above: Result Comment: Calc ulations of estimated GFR are performed using the 2020 CKD-EPI Study Refit equation without the race variable for the IDMS-Traceable creatinine methods.https://jasn.asnjournals.org/content/early// N.8118816215 Performed By: #### 2 4323-8 ####GARRY Schmid ([id number])[facility] ([facility])[address]174 [place] [address] Glucose [Mass/Vol] 535 mg/dL Critically high 74-99 [facility] Comment on above: Performed By: #### 2 4323-8 ####GARRY PEREZ L ([id number])[facility] ([facility])[address] [place] [address] Potassium [Moles/Vol] 4.9 mmol/L Normal 3.5-5.3 [facility] Comment on above: Performed By: #### 2 4323-8 ####GARRY PEREZ L ([id number])[facility] ([facility])[address]20 [place] [address] Protein [Mass/Vol] 4.4 g/dL Low 6.4-8.2 [facility] Comment on above: Performed By: #### 2 4323-8 ####GARRY PEREZ L ([id number])[facility] ([facility])[address]32 [place] [address] Sodium [Moles/Vol] 129 mmol/L Low 136-145 [facility] Comment on above: Performed By: #### 2 4323-8 ####GARRY Schmid ([id number])[facility] ([facility])[address] [place] [address] Urea nitrogen [Mass/Vol] 13 mg/dL Normal 6-23 [facility] Comment on above: Performed By: #### 2 4323-8 ####GARRY Schmid ([id number])[facility] ([facility])[address] [place] [address] Glucose Test strip manual (B ld) [Mass/Vol]on 10-20-2023 Glucose [Mass/Vol] 41 mg/dL Low 74-99 [facility] Comment on above: Performed By: #### 2 341-6 ####GARRY Schmid ([id number])[facility] ([facility])[address] [place] [address] Glucose [Mass/Vol] 50 mg/dL Low 74-99 [facility] Comment on above: Performed By: #### 2 341-6 ####GARRY Schmid ([id number])[facility] ([facility])[address] [place] [address] Glucose [Mass/Vol] 204 mg/dL High 74-99 [facility] Comment on above: Performed By: #### 2 341-6 ####GARRY Schmid ([id number])[facility] ([facility])[address] [place] [address] Glucose [Mass/Vol] 178 mg/dL High 74-99 [facility] Comment on above: Performed By: #### 2 341-6 ####GARRY Schmid ([id number])[facility] [facility] [place] [address] Glucose [Mass/Vol] 145 mg/dL High 74-99 [facility] Comment on above: Performed By: #### 2 341-6 ####GARRY PEREZ L ([id number])[facility] ([facility])[address] [place] [address] Glucose [Mass/Vol] 403 mg/dL High [address] [place] [address] Comment on above: Performed By: #### 2 341-6 ####GARRY PEREZ L ([id number])[facility] ([facility])[address] [place] [address] Glucose [Mass/Vol] 470 mg/dL High [address] [place] [address] Comment on above: Performed By: #### 2 341-6 ####GARRY PEREZ L ([id number])[facility] ([facility])[address] [place] [address] Glucose [Mass/Vol] 452 mg/dL High [address] [place] [address] Comment on above: Performed By: #### 2 341-6 ####GARRY PEREZ L ([id number])[facility] ([facility])[address] [place] [address] Glucose [Mass/Vol] 524 mg/dL High [address] [place] [address] Comment on above: Performed By: #### 2 341-6 ####GARRY PEREZ L ([id number])[facility] ([facility])[address] [place] [address] Magnesiumon 10-20-2023 Magnesium [Mass/Vol] 1.89 mg/dL Normal 1.60-2.40 [facility] Comment on above: Performed By: #### 1 9123-9 ####GARRY PEREZ L ([id number])[facility] ([facility])[address] [place] [address] Triglycerideon 10-20-2023 Triglyceride (Body fld) [Mass/Vol] 160 mg/dL Normal No established [facility] Comment on above: Order Comment: Pleas take from right drain Result Comment: The performance characteristics of this method have not been validated for use with this fluid specimen type. The test result should be interpreted in conjunction with additional clinical and laboratory data. Performed By: #### 1 2228-3 ####GARRY PEREZ L ([id number])[facility] ([facility])[address] [place] [address] Urinalysis complete W Reflex Culture panel (U)on 10-20-2023 Appearance (U) Clear Normal Clear [facility] Comment on above: Performed By: #### 5 8077-9 ####GARRY PEREZ L ([id number])[facility] ([facility])[address] [place] [address] Bilirubin (U) [Mass/Vol] Negative Normal NEGATIVE [facility] Comment on above: Performed By: #### 5 8077-9 ####GARRY PEREZ L ([id number])[facility] ([facility])[address] [place] [address] Color (U) Yellow Normal Straw, Yellow [facility] Comment on above: Performed By: #### 5 8077-9 ####GARRY PEREZ L ([id number])[facility] ([facility])[address] [place] [address] Epithelial cells.squamous Auto (Urine sed) [#/Area] 1-9 (SPARSE) Normal Reference range not established. [facility] Comment on above: Performed By: #### 5 8077-9 ####GARRY PEREZ L ([id number])[facility] ([facility])[address] [place] [address] Glucose Auto test strip (U) [Mass/Vol] >=500 (3+) Abnormal NEGATIVE [facility] Comment on above: Performed By: #### 5 8077-9 ####GARRY NGMOTZER L ([id number])[facility] ([facility])[address] [place] [address] Ketones (U) [Mass/Vol] Negative Normal NEGATIVE [facility] Comment on above: Performed By: #### 5 8077-9 ####GARRY NGMOCATHIER L ([id number])[facility] ([facility])[address] [place] [address] Leukocyte esterase Auto test strip Ql (U) Negative Normal NEGATIVE [facility] Comment on above: Performed By: #### 5 8077-9 ####GARRY Schmid ([id number])[facility] ([facility])[address] [place] [address] Nitrite Auto test strip Ql (U) Negative Normal NEGATIVE [facility] Comment on above: Performed By: #### 5 8077-9 ####GARRY Schmid ([id number])[facility] ([facility])[address] [place] [address] pH (U) 6.0 [pH] Normal 5.0, 5.5, 6.0, 6.5, 7.0, 7.5, 8.0 [facility] Comment on above: Performed By: #### 5 8077-9 ####GARRY Schmid ([id number])[facility] ([facility])[address] [place] [address] Protein (U) [Mass/Vol] Negative Normal NEGATIVE [facility] Comment on above: Performed By: #### 5 8077-9 ####GARRY Schmid ([id number])[facility] ([facility])[address] [place] [address] RBC (U) [#/Vol] SMALL (1+) Abnormal NEGATIVE [facility] Comment on above: Performed By: #### 5 8077-9 ####GARRY Schmid ([id number])[facility] ([facility])[address] [place] [address] 149[address] RBC Auto (Urine sed) [#/Area] NONE Normal NONE, 1-2, 3-5 [facility] Comment on above: Performed By: #### 5 8077-9 ####GARRY Schmid ([id number])[facility] ([facility])[address] [place] [address] Specific gravity (U) [Rel density] 1.023 Normal 1.005-1.035 [facility] Comment on above: Performed By: #### 5 8077-9 ####GARRY Schmid ([id number])[facility] ([facility])[address] [place] [address] Urobilinogen (U) [Mass/Vol] 4.0 mg/dL Normal <2.0 [facility] Comment on above: Result Comment: Some pigments and medications may cause a false positive urobilinogen. Performed By: #### 5 8077-9 ####GARRY Schmid ([id number])[facility] ([facility])[address] [place] [address] WBC Auto (Urine sed) [#/Area] 1-5 Normal 1-5, NONE [facility] Comment on above: Performed By: #### 5 8077-9 ####GARRY Schmid ([id number])[facility] ([facility])[address] [place] [address] Bilirubin.glucuronidated+Leobardo irubin.albumin boundon 10-19-2023 Bilirubin.direct [Mass/Vol] 0.0 mg/dL Normal 0.0-0.3 [facility] Comment on above: Performed By: #### 1 968-7 ####GARRY Schmid ([id number])[facility] ([facility])[address] [place] [address] CBC panel Auto (Bld)on 10-19 Erythrocyte distribution width (RBC) [Ratio] 14.6 % High 11.5-14.5 [facility] Comment on above: Performed By: #### 5 8410-2 ####GARRY Schmid ([id number])[facility] ([facility])[address] [place] [address] Hematocrit (Bld) [Volume fraction] 29.7 % Low 36.0-46.0 [facility] Comment on above: Performed By: #### 5 8410-2 ####GARRY Schmid ([id number])[facility] ([facility])[address] [place] [address] Hemoglobin (Bld) [Mass/Vol] 9.5 g/dL Low 12.0-16.0 [facility] Comment on above: Performed By: #### 5 8410-2 ####GARRY Schmid ([id number])[facility] ([facility])[address] [place] [address] MCH (RBC) [Entitic mass] 30.4 pg Normal 26.0-34.0 [facility] Comment on above: Performed By: #### 5 8410-2 ####GARRY Schmid ([id number])[facility] ([facility])[address] [place] [address] MCHC (RBC) [Mass/Vol] 32.0 g/dL Normal 32.0-36.0 [facility] Comment on above: Performed By: #### 5 8410-2 ####GARRY Schmid ([id number])[facility] ([facility])[address] [place] [address] MCV (RBC) [Entitic vol] 95 fL Normal 80-100 [facility] Comment on above: Performed By: #### 5 8410-2 ####GARRY Schmid ([id number])[facility] ([facility])[address] [place] [address] Nucleated RBC/100 WBC (Bld) [Ratio] 0.6 /100 WBCs High 0.0-0.0 [facility] Comment on above: Performed By: #### 5 8410-2 ####GARRY Schmid ([id number])[facility] ([facility])[address] [place] [address] Platelets (Bld) [#/Vol] 508 x10*3/uL High 150-450 [facility] Comment on above: Performed By: #### 5 8410-2 ####GARRY Schmid ([id number])[facility] ([facility])[address] [place] [address] RBC (Bld) [#/Vol] 3.13 x10*6/uL Low 4.00-5.20 [facility] Comment on above: Performed By: #### 5 8410-2 ####GARRY Schmid ([id number])[facility] ([facility])[address] [place] [address] WBC (Bld) [#/Vol] 10.0 x10*3/uL Normal 4.4-11.3 [facility] Comment on above: Performed By: #### 5 8410-2 ####GARRY Schmid ([id number])[facility] ([facility])[address] [place] [address] Comprehensive metabolic 2000 panelon 10-19-2023 Albumin BCP dye [Mass/Vol] 2.2 g/dL Low 3.4-5.0 [facility] Comment on above: Performed By: #### 2 4323-8 ####GARRY Schmid ([id number])[facility] ([facility])[address] [place] [address] ALP [Catalytic activity/Vol] 84 U/L Normal 33-110 [facility] Comment on above: Performed By: #### 2 4323-8 ####GARRY Schmid ([id number])[facility] ([facility])[address] [place] [address] ALT With P-5'-P [Catalytic activity/Vol] 27 U/L Normal 7-45 [facility] Comment on above: Result Comment: Gianna ents treated with Sulfasalazine may generate falsely decreased results for ALT. Performed By: #### 2 4323-8 ####GARRY Schmid ([id number])[facility] ([facility])[address] [place] [address] Anion gap [Moles/Vol] 10 mmol/L Normal 10-20 [facility] Comment on above: Performed By: #### 2 4323-8 ####GARRY Schmid ([id number])[facility] ([facility])[address] [place] [address] AST With P-5'-P [Catalytic activity/Vol] 41 U/L High 9-39 [facility] Comment on above: Performed By: #### 2 4323-8 ####GARRY Schmid ([id number])[facility] ([facility])[address] [place] [address] Bilirubin [Mass/Vol] 0.2 mg/dL Normal 0.0-1.2 [facility] Comment on above: Performed By: #### 2 4323-8 ####GARRY PEREZ L ([id number])[facility] ([facility])[address] [place] [address] Calcium [Mass/Vol] 7.8 mg/dL Low 8.6-10.6 [facility] Comment on above: Performed By: #### 2 4323-8 ####GARRY Schmid ([id number])[facility] ([facility])[address] [place] [address] Chloride [Moles/Vol] 102 mmol/L Normal 98-107 [facility] Comment on above: Performed By: #### 2 4323-8 ####GARRY PEREZ L ([id number])[facility] ([facility])[address] [place] [address] CO2 [Moles/Vol] 30 mmol/L Normal 21-32 [facility] Comment on above: Performed By: #### 2 4323-8 ####GARRY PEREZ L ([id number])[facility] ([facility])[address] [place] [address] Creatinine [Mass/Vol] 0.52 mg/dL Normal 0.50-1.05 [facility] Comment on above: Performed By: #### 2 4323-8 ####GARRY PEREZ L (75497)[facility] ([facility])[address] [place] [address] GFR/1.73 sq M.predicted MDRD (S/P/Bld) [Vol rate/Area] mL/min/{1.73_m2} Normal >60 [facility] Comment on above: Result Comment: Calc ulations of estimated GFR are performed using the 2020 CKD-EPI Study Refit equation without the race variable for the IDMS-Traceable creatinine methods.https://jasn.asnjournals.org/content// N.3366278813 Performed By: #### 2 4323-8 ####GARRY Schmid ([id number])[facility] ([facility])[address] [place] [address] Glucose [Mass/Vol] 262 mg/dL High 74-99 [facility] Comment on above: Performed By: #### 2 4323-8 ####GARRY Schmid ([id number])[facility] ([facility])[address]47 [place] [address] Potassium [Moles/Vol] 4.4 mmol/L Normal 3.5-5.3 [facility] Comment on above: Performed By: #### 2 4323-8 ####GARRY Schmid ([id number])[facility] ([facility])[address] [place] [address] Protein [Mass/Vol] 4.2 g/dL Low 6.4-8.2 [facility] Comment on above: Performed By: #### 2 4323-8 ####GARRY Schmid ([id number])[facility] ([facility])[address] [place] [address] Sodium [Moles/Vol] 138 mmol/L Normal 136-145 [facility] Comment on above: Performed By: #### 2 4323-8 ####GARRY Schmid ([id number])[facility] ([facility])[address] [place] [address] Urea nitrogen [Mass/Vol] 8 mg/dL Normal 6-23 [facility] Comment on above: Performed By: #### 2 4323-8 ####GARRY Schmid ([id number])[facility] ([facility])[address] [place] [address] Glucose Test strip manual (B ld) [Mass/Vol]on 10-19-2023 Glucose [Mass/Vol] 131 mg/dL High 74-99 [facility] Comment on above: Performed By: #### 2 341-6 ####GARRY SHIRLEYTZER L ([id number])[facility] ([facility])[address] [place] [address] Glucose [Mass/Vol] 189 mg/dL High [address] [place] [address] Comment on above: Performed By: #### 2 341-6 ####GARRY SHIRLEYTZLEIGH L (61302)[facility] ([facility])[address]401 [place] [address] Glucose [Mass/Vol] 333 mg/dL High [address] [place] [address] Comment on above: Performed By: #### 2 341-6 ####GARRY NGMOTZLEIGH L ([id number])[facility] ([facility])[address]883 [place] [address] Glucose [Mass/Vol] 448 mg/dL High [address] [place] [address] Comment on above: Performed By: #### 2 341-6 ####GARRY NGMOTZLEIGH L ([id number])[facility] ([facility])[address]01 [place] [address] Glucose [Mass/Vol] 280 mg/dL High [address] [place] [address] Comment on above: Performed By: #### 2 341-6 ####GARRY NGMOTZER L ([id number])[facility] ([facility])[address]264 [place] [address] Glucose [Mass/Vol] 248 mg/dL High [address] [place] [address] Comment on above: Performed By: #### 2 341-6 ####GARRY SHIRLEYTZLEIGH L (49607)[facility] ([facility])[address]52 [place] [address] Lactateon 10-19-2023 Lactate [Moles/Vol] 1.3 mmol/L Normal 0.4-2.0 [facility] Comment on above: Order Comment: Venip uncture immediately after or during the administration of Metamizole may lead to falsely low results. Testing should be performed immediatelyprior to Metamizole dosing. Performed By: #### 2 524-7 ####GARRY Schmid ([id number])[facility] ([facility])[address]25 [place] [address] Magnesiumon 10-19-2023 Magnesium [Mass/Vol] 1.74 mg/dL Normal 1.60-2.40 [facility] Comment on above: Performed By: #### 1 9123-9 ####GARRY Schmid (75414)[facility] ([facility])[address] [place] [address] PT and aPTT panel Coag (PPP) on 10-19-2023 aPTT Coag (PPP) [Time] 33 s Normal 27-38 [facility] Comment on above: Order Comment: The A PTT is no longer used for monitoring Unfractionated Heparin Therapy. For monitoring Heparin Therapy, use the Heparin Assay. Performed By: #### 3 4529-8 ####GARRY Schmid ([id number])[facility] ([facility])[address] [place] [address] INR Coag (PPP) [Relative time] 1.0 Normal 0.9-1.1 [facility] Comment on above: Order Comment: The A PTT is no longer used for monitoring Unfractionated Heparin Therapy. For monitoring Heparin Therapy, use the Heparin Assay. Performed By: #### 3 4529-8 ####GARRY Schmid ([id number])[facility] ([facility])[address]2 [place] [address] PT Coag (PPP) [Time] 11.1 s Normal 9.8-12.8 [facility] Comment on above: Order Comment: The A PTT is no longer used for monitoring Unfractionated Heparin Therapy. For monitoring Heparin Therapy, use the Heparin Assay. Performed By: #### 3 4529-8 ####GARRY Schmid ([id number])[facility] ([facility])[address] [place] [address] Phosphateon 10-19-2023 Phosphate [Mass/Vol] 4.0 mg/dL Normal 2.5-4.9 [facility] Comment on above: Result Comment: The performance characteristics of phosphorus testing in heparinized plasma have been validated by the individual laboratory site where testing is performed. Testing on heparinized plasma is not approved by the FDA; however, such approval is not necessary. Performed By: #### 2 777-1 ####GARRY Schmid ([id number])[facility] ([facility])[address] [place] [address] CBC panel Auto (Bld)on 10-18 Erythrocyte distribution width (RBC) [Ratio] 14.1 % Normal 11.5-14.5 [facility] Comment on above: Performed By: #### 5 8410-2 ####GARRY Schmid ([id number])[facility] ([facility])[address] [place] [address] Hematocrit (Bld) [Volume fraction] 29.0 % Low 36.0-46.0 [facility] Comment on above: Performed By: #### 5 8410-2 ####GARRY Schmid ([id number])[facility] ([facility])[address] [place] [address] Hemoglobin (Bld) [Mass/Vol] 9.6 g/dL Low 12.0-16.0 [facility] Comment on above: Performed By: #### 5 8410-2 ####GARRY Schmid ([id number])[facility] ([facility])[address] [place] [address] MCH (RBC) [Entitic mass] 30.0 pg Normal 26.0-34.0 [facility] Comment on above: Performed By: #### 5 8410-2 ####GARRY Schmid ([id number])[facility] ([facility])[address] [place] [address] MCHC (RBC) [Mass/Vol] 33.1 g/dL Normal 32.0-36.0 [facility] Comment on above: Performed By: #### 5 8410-2 ####GARRY Schmid ([id number])[facility] ([facility])[address]87 [place] [address] MCV (RBC) [Entitic vol] 91 fL Normal 80-100 [facility] Comment on above: Performed By: #### 5 8410-2 ####GARRY Schmid ([id number])[facility] ([facility])[address]484 [place] [address] Nucleated RBC/100 WBC (Bld) [Ratio] 0.7 /100 WBCs High 0.0-0.0 [facility] Comment on above: Performed By: #### 5 8410-2 ####GARRY Schmid ([id number])[facility] ([facility])[address]48 [place] [address] Platelets (Bld) [#/Vol] 457 x10*3/uL High 150-450 [facility] Comment on above: Performed By: #### 5 8410-2 ####GARRY Schmid ([id number])[facility] ([facility])[address]125 [place] [address] RBC (Bld) [#/Vol] 3.20 x10*6/uL Low 4.00-5.20 [facility] Comment on above: Performed By: #### 5 8410-2 ####GARRY Schmid ([id number])[facility] ([facility])[address] [place] [address] WBC (Bld) [#/Vol] 8.2 x10*3/uL Normal 4.4-11.3 [facility] Comment on above: Performed By: #### 5 8410-2 ####GARRY Schmid ([id number])[facility] ([facility])[address] [place] [address] CT ABDOMEN PELVIS W IV CONTR Iris 10-18-2023 CT ABDOMEN PELVIS W IV CONTRAST Normal [facility] Glucose Test strip manual (B ld) [Mass/Vol]on 10-18-2023 Glucose [Mass/Vol] 144 mg/dL High 74-99 [facility] Comment on above: Performed By: #### 2 341-6 ####GARRY Schmid ([id number])[facility] ([facility])[address] [place] [address] Glucose [Mass/Vol] 109 mg/dL High [address] [place] [address] Comment on above: Performed By: #### 2 341-6 ####GARRY PEREZ L ([id number])[facility] ([facility])[address] [place] [address] Glucose [Mass/Vol] 118 mg/dL High [address] [place] [address] Comment on above: Performed By: #### 2 341-6 ####GARRY Schmid ([id number])[facility] ([facility])[address]18 [place] [address] Glucose [Mass/Vol] 204 mg/dL High [address] [place] [address] Comment on above: Performed By: #### 2 341-6 ####GARRY Schmid ([id number])[facility] ([facility])[address]60 [place] [address] Glucose [Mass/Vol] 203 mg/dL High [address] [place] [address] Comment on above: Performed By: #### 2 341-6 ####GARRY Schmid ([id number])[facility] ([facility])[address] [place] [address] Glucose [Mass/Vol] 379 mg/dL High [address] [place] [address] Comment on above: Performed By: #### 2 341-6 ####GARRY PEREZ L ([id number])[facility] ([facility])[address] [facility] [place] [address] Glucose [Mass/Vol] 408 mg/dL High [address] [place] [address] Comment on above: Performed By: #### 2 341-6 ####GARRY SHIRLEYTZLEIGH L ([id number])[facility] ([facility])[address] [place] [address] Glucose [Mass/Vol] 294 mg/dL High [address] [place] [address] Comment on above: Performed By: #### 2 341-6 ####GARRY Schmid ([id number])[facility] ([facility])[address] [place] [address] Magnesiumon 10-18-2023 Magnesium [Mass/Vol] 1.92 mg/dL Normal 1.60-2.40 [facility] Comment on above: Performed By: #### 1 9123-9 ####GARRY Schmid ([id number])[facility] ([facility])[address] [place] [address] Renal function 2000 panelon 10-18-2023 Albumin BCP dye [Mass/Vol] 2.5 g/dL Low 3.4-5.0 [facility] Comment on above: Performed By: #### 2 4362-6 ####GARRY Schmid ([id number])[facility] ([facility])[id number] [place] [id number] Anion gap [Moles/Vol] mmol/L Low 10-20 [facility] Comment on above: Performed By: #### 2 4362-6 ####GARRY Schmid ([id number])[facility] ([facility])[id number] [place] [address] Calcium [Mass/Vol] 7.8 mg/dL Low 8.6-10.6 [facility] Comment on above: Performed By: #### 2 4362-6 ####GARRY Schmid ([id number])[facility] ([facility])[id number] [place] [address]8220 Chloride [Moles/Vol] 103 mmol/L Normal 98-107 [facility] Comment on above: Performed By: #### 2 4362-6 ####GARRY Schmid ([id number])[facility] ([facility])[address] [place] [address] CO2 [Moles/Vol] 31 mmol/L Normal 21-32 [facility] Comment on above: Performed By: #### 2 4362-6 ####GARRY Schmid ([id number])[facility] ([facility])[address] [place] [address] Creatinine [Mass/Vol] 0.51 mg/dL Normal 0.50-1.05 [facility] Comment on above: Performed By: #### 2 4362-6 ####GARRY Scmhid ([id number])[facility] ([facility])[address] [place] [address] GFR/1.73 sq M.predicted MDRD (S/P/Bld) [Vol rate/Area] mL/min/{1.73_m2} Normal >60 [facility] Comment on above: Result Comment: Calc ulations of estimated GFR are performed using the 2020 CKD-EPI Study Refit equation without the race variable for the IDMS-Traceable creatinine methods.https://jasn.asnjournals.org/content// N.7357635581 Performed By: #### 2 4362-6 ####GARRY Schmid ([id number])[facility] ([facility])[address] [place] [address] Glucose [Mass/Vol] 274 mg/dL High 74-99 [facility] Comment on above: Performed By: #### 2 4362-6 ####GARRY Schmid ([id number])[facility] ([facility])[address] [place] [address] Phosphate [Mass/Vol] 2.6 mg/dL Normal 2.5-4.9 [facility] Comment on above: Result Comment: The performance characteristics of phosphorus testing in heparinized plasma have been validated by the individual laboratory site where testing is performed. Testing on heparinized plasma is not approved by the FDA; however, such approval is not necessary. Performed By: #### 2 4362-6 ####GARRY Schmid ([id number])[facility] ([facility])[address] [place] [address] Potassium [Moles/Vol] 4.4 mmol/L Normal 3.5-5.3 [facility] Comment on above: Performed By: #### 2 4362-6 ####GARRY Schmid ([id number])[facility] ([facility])[address] [place] [address] Sodium [Moles/Vol] 136 mmol/L Normal 136-145 [facility] Comment on above: Performed By: #### 2 4362-6 ####GARRY Schmid ([id number])[facility] ([facility])[address] [place] [address] Urea nitrogen [Mass/Vol] 6 mg/dL Normal 6-23 [facility] Comment on above: Performed By: #### 2 4362-6 ####GARRY Schmid ([id number])[facility] ([facility])[address] [place] [address] US GUIDED PERCUTANEOUS PERIT BROWN OR RETROPERITONEAL FLUID COLLECTION DRAINAGEon 10-18-2023 US GUIDED PERCUTANEOUS PERITONEAL OR RETROPERITONEAL FLUID COLLECTION DRAINAGE Normal [facility] CBC panel Auto (Bld)on 10-17 Erythrocyte distribution width (RBC) [Ratio] 14.5 % Normal 11.5-14.5 [facility] Comment on above: Performed By: #### 5 8410-2 ####GARRY Schmid ([id number])[facility] ([facility])[address] [place] [address] Hematocrit (Bld) [Volume fraction] 28.3 % Low 36.0-46.0 [facility] Comment on above: Performed By: #### 5 8410-2 ####GARRY Schmid ([id number])[facility] ([facility])[address] [place] [address] Hemoglobin (Bld) [Mass/Vol] 9.1 g/dL Low 12.0-16.0 [facility] Comment on above: Performed By: #### 5 8410-2 ####GARRY Schmid ([id number])[facility] ([facility])[address] [place] [address] MCH (RBC) [Entitic mass] 30.5 pg Normal 26.0-34.0 [facility] Comment on above: Performed By: #### 5 8410-2 ####GARRY Schmid ([id number])[facility] ([facility])[address] [place] [address] MCHC (RBC) [Mass/Vol] 32.2 g/dL Normal 32.0-36.0 [facility] Comment on above: Performed By: #### 5 8410-2 ####GARRY Schmid ([id number])[facility] ([facility])[address] [place] [address] MCV (RBC) [Entitic vol] 95 fL Normal 80-100 [facility] Comment on above: Performed By: #### 5 8410-2 ####GARRY Schmid ([id number])[facility] ([facility])[address]798 [place] [address] Nucleated RBC/100 WBC (Bld) [Ratio] 0.9 /100 WBCs High 0.0-0.0 [facility] Comment on above: Performed By: #### 5 8410-2 ####GARRY Schmid (85543)[facility] ([facility])[address] [place] [address] Platelets (Bld) [#/Vol] 399 x10*3/uL Normal 150-450 [facility] Comment on above: Performed By: #### 5 8410-2 ####GARRY Schmid ([id number])[facility] ([facility])[address] [place] [address] RBC (Bld) [#/Vol] 2.98 x10*6/uL Low 4.00-5.20 [facility] Comment on above: Performed By: #### 5 8410-2 ####GARRY Schmid ([id number])[facility] ([facility])[address]956 [place] [address] WBC (Bld) [#/Vol] 5.6 x10*3/uL Normal 4.4-11.3 [facility] Comment on above: Performed By: #### 5 8410-2 ####GARRY Schmid ([id number])[facility] ([facility])[address]168 [place] [address] Glucose Test strip manual (B ld) [Mass/Vol]on 10-17-2023 Glucose [Mass/Vol] 256 mg/dL High [address] [place] [address] Comment on above: Performed By: #### 2 341-6 ####GARRY Schmid ([id number])[facility] ([facility])[address]85 [place] [address] Glucose [Mass/Vol] 321 mg/dL High [address] [place] [address] Comment on above: Performed By: #### 2 341-6 ####GARRY Schmid ([id number])[facility] ([facility])[address]39 [place] [address] Glucose [Mass/Vol] 256 mg/dL High [address] [place] [address] Comment on above: Performed By: #### 2 341-6 ####GARRY Schmid ([id number])[facility] ([facility])[address]217 [place] [address] Glucose [Mass/Vol] 270 mg/dL High [address] [place] [address] Comment on above: Performed By: #### 2 341-6 ####GARRY Schmid ([id number])[facility] ([facility])[address] [place] [address] Glucose [Mass/Vol] 181 mg/dL High [address] [place] [address] Comment on above: Performed By: #### 2 341-6 ####GARRY Schmid ([id number])[facility] ([facility])[address] [place] [address] Magnesiumon 10-17-2023 Magnesium [Mass/Vol] 1.73 mg/dL Normal 1.60-2.40 [facility] Comment on above: Performed By: #### 1 9123-9 ####GARRY Schmid ([id number])[facility] ([facility])[address] [place] [address] Renal function 2000 panelon 10-17-2023 Albumin BCP dye [Mass/Vol] 2.3 g/dL Low 3.4-5.0 [facility] Comment on above: Performed By: #### 2 4362-6 ####GARRY Schmid ([id number])[facility] ([facility])[address] [place] [address] Anion gap [Moles/Vol] 9 mmol/L Low 10-20 [facility] Comment on above: Performed By: #### 2 4362-6 ####GARRY Schmid ([id number])[facility] ([facility])[address] [place] [address] Calcium [Mass/Vol] 7.5 mg/dL Low 8.6-10.6 [facility] Comment on above: Performed By: #### 2 4362-6 ####GARRY Schmid ([id number])[facility] ([facility])[address] [place] [address] Chloride [Moles/Vol] 107 mmol/L Normal 98-107 [facility] Comment on above: Performed By: #### 2 4362-6 ####GARRY Schmid ([id number])[facility] ([facility])[address] [place] [address] CO2 [Moles/Vol] 28 mmol/L Normal 21-32 [facility] Comment on above: Performed By: #### 2 4362-6 ####GARRY Schmid ([id number])[facility] ([facility])[address] [place] [address] Creatinine [Mass/Vol] 0.55 mg/dL Normal 0.50-1.05 [facility] Comment on above: Performed By: #### 2 4362-6 ####GARRY Schmid ([id number])[facility] ([facility])[address] [place] [address] GFR/1.73 sq M.predicted MDRD (S/P/Bld) [Vol rate/Area] mL/min/{1.73_m2} Normal >60 [facility] Comment on above: Result Comment: Calc ulations of estimated GFR are performed using the 2020 CKD-EPI Study Refit equation without the race variable for the IDMS-Traceable creatinine methods.https://jasn.asnjournals.org/content/early/ N.2375601055 Performed By: #### 2 4362-6 ####GARRY Schmid ([id number])[facility] ([facility])[address] [place] [address] Glucose [Mass/Vol] 216 mg/dL High 74-99 [facility] Comment on above: Performed By: #### 2 4362-6 ####GARRY Schmid ([id number])[facility] ([facility])[address] [place] [address] Phosphate [Mass/Vol] 3.1 mg/dL Normal 2.5-4.9 [facility] Comment on above: Result Comment: The performance characteristics of phosphorus testing in heparinized plasma have been validated by the individual laboratory site where testing is performed. Testing on heparinized plasma is not approved by the FDA; however, such approval is not necessary. Performed By: #### 2 4362-6 ####GARRY Schmid ([id number])[facility] ([facility])[address] [place] [address] Potassium [Moles/Vol] 3.8 mmol/L Normal 3.5-5.3 [facility] Comment on above: Performed By: #### 2 4362-6 ####GARRY Schmid ([id number])[facility] ([facility])[address] [place] [address] Sodium [Moles/Vol] 140 mmol/L Normal 136-145 [facility] Comment on above: Performed By: #### 2 4362-6 ####GARRY Schmid ([id number])[facility] ([facility])[address] [place] [address] Urea nitrogen [Mass/Vol] 6 mg/dL Normal 6-23 [facility] Comment on above: Performed By: #### 2 4362-6 ####GARRY Schmid ([id number])[facility] ([facility])[address] [place] [address] Triglycerideon 10-17-2023 Triglyceride (Body fld) [Mass/Vol] 297 mg/dL Normal No established [facility] Comment on above: Order Comment: Pleas e send from L drain at noon todayThe performance characteristics of this test have been validated on peritoneal/ascites,pleural, pericardial and drain fluid by the performing [facility] laboratory. This test has not been approved by the FDA; however, such approval is not necessary. Performed By: #### 1 2228-3 ####GARRY Schmid ([id number])[facility] ([facility])[address] [place] [address] Triglyceride (Body fld) [Mass/Vol] 385 mg/dL Normal No established [facility] Comment on above: Order Comment: The p erformance characteristics of this test have been validated on peritoneal/ascites,pleural, pericardial and drain fluid by the performing [facility] laboratory. This test has not been approved by the FDA; however, such approval is not necessary. Performed By: #### 1 2228-3 ####GARRY Schmid ([id number])[facility] ([facility])[address] [place] [address] CBC panel Auto (Bld)on 10-16 Erythrocyte distribution width (RBC) [Ratio] 14.3 % Normal 11.5-14.5 [facility] Comment on above: Performed By: #### 5 8410-2 ####GARRY Schmid ([id number])[facility] ([facility])[address] [place] [address] Hematocrit (Bld) [Volume fraction] 27.6 % Low 36.0-46.0 [facility] Comment on above: Performed By: #### 5 8410-2 ####GARRY Schmid ([id number])[facility] ([facility])[address]442 [place] [address] Hemoglobin (Bld) [Mass/Vol] 9.4 g/dL Low 12.0-16.0 [facility] Comment on above: Performed By: #### 5 8410-2 ####GARRY Schmid ([id number])[facility] ([facility])[address] [place] [address] MCH (RBC) [Entitic mass] 31.3 pg Normal 26.0-34.0 [facility] Comment on above: Performed By: #### 5 8410-2 ####GARRY Schmid (52035)[facility] ([facility])[address]366 [place] [address] MCHC (RBC) [Mass/Vol] 34.1 g/dL Normal 32.0-36.0 [facility] Comment on above: Performed By: #### 5 8410-2 ####GARRY Schmid (58034)[facility] ([facility])[address]155 [place] [address] MCV (RBC) [Entitic vol] 92 fL Normal 80-100 [facility] Comment on above: Performed By: #### 5 8410-2 ####GARRY Schmid ([id number])[facility] ([facility])[address]64 [place] [address] Nucleated RBC/100 WBC (Bld) [Ratio] 0.6 /100 WBCs High 0.0-0.0 [facility] Comment on above: Performed By: #### 5 8410-2 ####GARRY Schmid ([id number])[facility] ([facility])[address]97 [place] [address] Platelets (Bld) [#/Vol] 369 x10*3/uL Normal 150-450 [facility] Comment on above: Performed By: #### 5 8410-2 ####GARRY Schmid ([id number])[facility] ([facility])[address] [place] [address] RBC (Bld) [#/Vol] 3.00 x10*6/uL Low 4.00-5.20 [facility] Comment on above: Performed By: #### 5 8410-2 ####GARRY Schmid ([id number])[facility] ([facility])[address]29 [place] [address] WBC (Bld) [#/Vol] 5.1 x10*3/uL Normal 4.4-11.3 [facility] Comment on above: Performed By: #### 5 8410-2 ####GARRY Schmid ([id number])[facility] ([facility])[address]146 [place] [address] Comprehensive metabolic 2000 panelon 10-16-2023 Albumin BCP dye [Mass/Vol] 2.3 g/dL Low 3.4-5.0 [facility] Comment on above: Performed By: #### 2 4323-8 ####GARRY Schmid ([id number])[facility] ([facility])[address]65 [place] [address] ALP [Catalytic activity/Vol] 81 U/L Normal 33-110 [facility] Comment on above: Performed By: #### 2 4323-8 ####GARRY Schmid ([id number])[facility] ([facility])[address] [place] [address] ALT With P-5'-P [Catalytic activity/Vol] 48 U/L High 7-45 [facility] Comment on above: Result Comment: Gianna ents treated with Sulfasalazine may generate falsely decreased results for ALT. Performed By: #### 2 4323-8 ####GARRY Schmid ([id number])[facility] ([facility])[address] [place] [address] Anion gap [Moles/Vol] 11 mmol/L Normal 10-20 [facility] Comment on above: Performed By: #### 2 4323-8 ####GARRY Schmid ([id number])[facility] ([facility])[address]59 [place] [address] AST With P-5'-P [Catalytic activity/Vol] 96 U/L High 9-39 [facility] Comment on above: Performed By: #### 2 4323-8 ####GARRY Schmid ([id number])[facility] ([facility])[address]60 [place] [address] Bilirubin [Mass/Vol] 0.2 mg/dL Normal 0.0-1.2 [facility] Comment on above: Performed By: #### 2 4323-8 ####GARRY Schmid ([id number])[facility] ([facility])[address]600 [place] [address] Calcium [Mass/Vol] 7.4 mg/dL Low 8.6-10.6 [facility] Comment on above: Performed By: #### 2 4323-8 ####GARRY Schmid ([id number])[facility] ([facility])[address]287 [place] [address] Chloride [Moles/Vol] 105 mmol/L Normal 98-107 [facility] Comment on above: Performed By: #### 2 4323-8 ####GARRY Schmid ([id number])[facility] ([facility])[address]36 [place] [address] CO2 [Moles/Vol] 24 mmol/L Normal 21-32 [facility] Comment on above: Performed By: #### 2 4323-8 ####GARRY Schmid (77479)[facility] ([facility])[address]2010 [place] [address] Creatinine [Mass/Vol] 0.66 mg/dL Normal 0.50-1.05 [facility] Comment on above: Performed By: #### 2 4323-8 ####GARRY Schmid (32252)[facility] ([facility])[address]21 [place] [address] GFR/1.73 sq M.predicted MDRD (S/P/Bld) [Vol rate/Area] mL/min/{1.73_m2} Normal >60 [facility] Comment on above: Result Comment: Calc ulations of estimated GFR are performed using the 2020 CKD-EPI Study Refit equation without the race variable for the IDMS-Traceable creatinine methods.https://jasn.asnjournals.org/content// N.0702002044 Performed By: #### 2 4323-8 ####GARRY Schmid ([id number])[facility] ([facility])[address]333 [place] [address] Glucose [Mass/Vol] 204 mg/dL High 74-99 [facility] Comment on above: Performed By: #### 2 4323-8 ####GARRY Schmid (55249)[facility] ([facility])[address]23 [place] [address] Potassium [Moles/Vol] 4.4 mmol/L Normal 3.5-5.3 [facility] Comment on above: Performed By: #### 2 4323-8 ####GARRY PEREZ L (61970)[facility] ([facility])[address]85 [place] [address] Protein [Mass/Vol] 4.2 g/dL Low 6.4-8.2 [facility] Comment on above: Performed By: #### 2 4323-8 ####GARRY PEREZ L ([id number])[facility] ([facility])[address]687 [place] [address] Sodium [Moles/Vol] 136 mmol/L Normal 136-145 [facility] Comment on above: Performed By: #### 2 4323-8 ####GARRY PEREZ L (42912)[facility] ([facility])[address]82 [place] [address] Urea nitrogen [Mass/Vol] 8 mg/dL Normal 6-23 [facility] Comment on above: Performed By: #### 2 4323-8 ####GARRY Schmid ([id number])[facility] ([facility])[address] [place] [address] Glucose Test strip manual (B ld) [Mass/Vol]on 10-16-2023 Glucose [Mass/Vol] 178 mg/dL High [address] [place] [address] Comment on above: Performed By: #### 2 341-6 ####GARRY Schmid ([id number])[facility] ([facility])[address]75 [place] [address] Glucose [Mass/Vol] 170 mg/dL High [address] [place] [address] Comment on above: Performed By: #### 2 341-6 ####GARRY Schmid (91823)[facility] ([facility])[address]958 [place] [address] Glucose [Mass/Vol] 152 mg/dL High [address] [place] [address] Comment on above: Performed By: #### 2 341-6 ####GARRY Schmid ([id number])[facility] ([facility])[address]98 [place] [address] Glucose [Mass/Vol] 182 mg/dL High [address] [place] [address] Comment on above: Performed By: #### 2 341-6 ####GARRY Schmid (45709)[facility] ([facility])[address] [place] [address] Glucose [Mass/Vol] 228 mg/dL High [address] [place] [address] Comment on above: Performed By: #### 2 341-6 ####GARRY Schmid ([id number])[facility] ([facility])[address]23 [place] [address] Glucose [Mass/Vol] 215 mg/dL High [address] [place] [address] Comment on above: Performed By: #### 2 341-6 ####GARRY Schmid (53932)[facility] ([facility])[address] [facility] [address] Glucose [Mass/Vol] 187 mg/dL High 74-99 [facility] Comment on above: Performed By: #### 2 341-6 ####GARRY Schmid ([id number])[facility] ([facility])[address]003 [place] [address] Magnesiumon 10-16-2023 Magnesium [Mass/Vol] 1.75 mg/dL Normal 1.60-2.40 [facility] Comment on above: Performed By: #### 1 9123-9 ####GARRY Schmid ([id number])[facility] ([facility])[address] [place] [address] CBC panel Auto (Bld)on 10-15 Erythrocyte distribution width (RBC) [Ratio] 14.8 % High 11.5-14.5 [facility] Comment on above: Performed By: #### 5 8410-2 ####GARRY Schmid (26349)[facility] ([facility])[address] [place] [address] Hematocrit (Bld) [Volume fraction] 32.2 % Low 36.0-46.0 [facility] Comment on above: Performed By: #### 5 8410-2 ####GARRY Schmid ([id number])[facility] ([facility])[address] [place] [address] Hemoglobin (Bld) [Mass/Vol] 10.9 g/dL Low 12.0-16.0 [facility] Comment on above: Performed By: #### 5 8410-2 ####GARRY Schmid ([id number])[facility] ([facility])[address]78 [place] [address] MCH (RBC) [Entitic mass] 31.4 pg Normal 26.0-34.0 [facility] Comment on above: Performed By: #### 5 8410-2 ####GARRY Schmid ([id number])[facility] ([facility])[address]340 [place] [address] MCHC (RBC) [Mass/Vol] 33.9 g/dL Normal 32.0-36.0 [facility] Comment on above: Performed By: #### 5 8410-2 ####GARRY Schmid ([id number])[facility] ([facility])[address]31 [place] [address] MCV (RBC) [Entitic vol] 93 fL Normal 80-100 [facility] Comment on above: Performed By: #### 5 8410-2 ####GARRY Schmid ([id number])[facility] ([facility])[address]87 [place] [address] Nucleated RBC/100 WBC (Bld) [Ratio] 0.5 /100 WBCs High 0.0-0.0 [facility] Comment on above: Performed By: #### 5 8410-2 ####GARRY Schmid ([id number])[facility] ([facility])[address] [place] [address] Platelets (Bld) [#/Vol] 330 x10*3/uL Normal 150-450 [facility] Comment on above: Performed By: #### 5 8410-2 ####GARRY Schmid ([id number])[facility] ([facility])[address] [place] [address] RBC (Bld) [#/Vol] 3.47 x10*6/uL Low 4.00-5.20 [facility] Comment on above: Performed By: #### 5 8410-2 ####GARRY Schmid ([id number])[facility] ([facility])[address] [place] [address] WBC (Bld) [#/Vol] 6.5 x10*3/uL Normal 4.4-11.3 [facility] Comment on above: Performed By: #### 5 8410-2 ####GARRY Schmid ([id number])[facility] ([facility])[address] [place] [address] Comprehensive metabolic 2000 panelon 10-15-2023 Albumin BCP dye [Mass/Vol] 2.6 g/dL Low 3.4-5.0 [facility] Comment on above: Performed By: #### 2 4323-8 ####GARRY Schmid ([id number])[facility] ([facility])[address] [place] [address] ALP [Catalytic activity/Vol] 73 U/L Normal 33-110 [facility] Comment on above: Performed By: #### 2 4323-8 ####GARRY Schmid ([id number])[facility] ([facility])[address] [place] [address] ALT With P-5'-P [Catalytic activity/Vol] 55 U/L High 7-45 [facility] Comment on above: Result Comment: Gianna ents treated with Sulfasalazine may generate falsely decreased results for ALT. Performed By: #### 2 4323-8 ####GARRY Schmid ([id number])[facility] ([facility])[address] [place] [address] Anion gap [Moles/Vol] 12 mmol/L Normal 10-20 [facility] Comment on above: Performed By: #### 2 4323-8 ####GARRY Schmid ([id number])[facility] ([facility])[address] [place] [address] AST With P-5'-P [Catalytic activity/Vol] 149 U/L High 9-39 [facility] Comment on above: Performed By: #### 2 4323-8 ####GARRY Schmid ([id number])[facility] ([facility])[address] [place] [address] Bilirubin [Mass/Vol] 0.3 mg/dL Normal 0.0-1.2 [facility] Comment on above: Performed By: #### 2 4323-8 ####GARRY Schmid ([id number])[facility] ([facility])[address] [place] [address] Calcium [Mass/Vol] 7.6 mg/dL Low 8.6-10.6 [facility] Comment on above: Performed By: #### 2 4323-8 ####GARRY PEREZ L ([id number])[facility] ([facility])[address] [place] [address] Chloride [Moles/Vol] 108 mmol/L High 98-107 [facility] Comment on above: Performed By: #### 2 4323-8 ####GARRY SHIRLEYTZER L ([id number])[facility] ([facility])[address] [place] [address] CO2 [Moles/Vol] 23 mmol/L Normal 21-32 [facility] Comment on above: Performed By: #### 2 4323-8 ####GARRY PEREZ L ([id number])[facility] ([facility])[address] [place] [address] Creatinine [Mass/Vol] 0.62 mg/dL Normal 0.50-1.05 [facility] Comment on above: Performed By: #### 2 4323-8 ####GARRY PEREZ L ([id number])[facility] ([facility])[address] [place] [address] GFR/1.73 sq M.predicted MDRD (S/P/Bld) [Vol rate/Area] mL/min/{1.73_m2} Normal >60 [facility] Comment on above: Result Comment: Calc ulations of estimated GFR are performed using the 2020 CKD-EPI Study Refit equation without the race variable for the IDMS-Traceable creatinine methods.https://jasn.asnjournals.org/content/early/ N.3175475945 Performed By: #### 2 4323-8 ####GARRY PEREZ L ([id number])[facility] ([facility])[address] [place] [address] Glucose [Mass/Vol] 34 mg/dL Critically low 74-99 [facility] Comment on above: Performed By: #### 2 4323-8 ####GARRY PEREZ L ([id number])[facility] ([facility])[address] [place] [address] Potassium [Moles/Vol] 4.4 mmol/L Normal 3.5-5.3 [facility] Comment on above: Performed By: #### 2 4323-8 ####GARRY Schmid ([id number])[facility] ([facility])[address] [place] [address] Protein [Mass/Vol] 4.8 g/dL Low 6.4-8.2 [facility] Comment on above: Performed By: #### 2 4323-8 ####GARRY Schmid ([id number])[facility] ([facility])[address] [place] [address] Sodium [Moles/Vol] 139 mmol/L Normal 136-145 [facility] Comment on above: Performed By: #### 2 4323-8 ####GARRY Schmid ([id number])[facility] ([facility])[address] [place] [address] Urea nitrogen [Mass/Vol] 8 mg/dL Normal 6-23 [facility] Comment on above: Performed By: #### 2 4323-8 ####GARRY Schmid ([id number])[facility] ([facility])[address] [place] [address] Glucose Test strip manual (B ld) [Mass/Vol]on 10-15-2023 Glucose [Mass/Vol] 131 mg/dL High 74-99 [facility] Comment on above: Performed By: #### 2 341-6 ####GARRY Schmid ([id number])[facility] ([facility])[address] [place] [address] Glucose [Mass/Vol] 37 mg/dL Low 74-99 [facility] Comment on above: Performed By: #### 2 341-6 ####GARRY Schmid ([id number])[facility] ([facility])[address] [place] [address] Glucose [Mass/Vol] 63 mg/dL Low 74-99 [facility] Comment on above: Performed By: #### 2 341-6 ####GARRY Schmid ([id number])[facility] ([facility])[address] [facility] [place] [address] Glucose [Mass/Vol] 136 mg/dL High 74-99 [facility] Comment on above: Performed By: #### 2 341-6 ####GARRY Schmid ([id number])[facility] ([facility])[address] [place] [address] Glucose [Mass/Vol] 154 mg/dL High 74-99 [facility] Comment on above: Performed By: #### 2 341-6 ####GARRY Schmid ([id number])[facility] ([facility])[address] [place] [address] Glucose [Mass/Vol] 47 mg/dL Low 74-99 [facility] Comment on above: Performed By: #### 2 341-6 ####GARRY Schmid (49714)[facility] ([facility])[address] [place] [address] Glucose [Mass/Vol] 43 mg/dL Low 74-99 [facility] Comment on above: Performed By: #### 2 341-6 ####GARRY Schmid ([id number])[facility] ([facility])[address] [place] [address] Glucose [Mass/Vol] 93 mg/dL Normal 74-99 [facility] Comment on above: Performed By: #### 2 341-6 ####GARRY Schmid ([id number])[facility] ([facility])[address] [place] [address] Magnesiumon 10-15-2023 Magnesium [Mass/Vol] 2.08 mg/dL Normal 1.60-2.40 [facility] Comment on above: Performed By: #### 1 9123-9 ####GARRY PEREZ L ([id number])[facility] ([facility])[address] [place] [address] PICC >5 YR BEDSIDE IMAGINGon 10-15-2023 PICC >5 YR BEDSIDE IMAGING These images are not reportable by radiology and will not be interpreted by Radiologists. Normal [facility] Staphylococcus aureus.methic illin resistant isolateon 10-15-2023 MRSA isol Org specific cx Ql (Nose) Normal [facility] Comment on above: Performed By: #### 5 2969-3 ####GARRY Schmid ([id number])[facility] ([facility])[address] [place] [address] CBC panel Auto (Bld)on 10-14 Erythrocyte distribution width (RBC) [Ratio] 14.8 % High 11.5-14.5 [facility] Comment on above: Performed By: #### 5 8410-2 ####GARRY Schmid ([id number])[facility] ([facility])[address] [place] [address] Hematocrit (Bld) [Volume fraction] 34.7 % Low 36.0-46.0 [facility] Comment on above: Performed By: #### 5 8410-2 ####GARRY Schmid ([id number])[facility] ([facility])[address] [place] [address] Hemoglobin (Bld) [Mass/Vol] 11.3 g/dL Low 12.0-16.0 [facility] Comment on above: Performed By: #### 5 8410-2 ####GARRY Schmid (99715)[facility] ([facility])[address] [place] [address] MCH (RBC) [Entitic mass] 31.7 pg Normal 26.0-34.0 [facility] Comment on above: Performed By: #### 5 8410-2 ####GARRY Schmid ([id number])[facility] ([facility])[address] [place] [address] MCHC (RBC) [Mass/Vol] 32.6 g/dL Normal 32.0-36.0 [facility] Comment on above: Performed By: #### 5 8410-2 ####GARRY Schmid ([id number])[facility] ([facility])[address] [place] [address] MCV (RBC) [Entitic vol] 98 fL Normal 80-100 [facility] Comment on above: Performed By: #### 5 8410-2 ####GARRY Schmid (35275)[facility] ([facility])[address]16 [place] [address] Nucleated RBC/100 WBC (Bld) [Ratio] 0.3 /100 WBCs High 0.0-0.0 [facility] Comment on above: Performed By: #### 5 8410-2 ####GARRY Schmid (50226)[facility] ([facility])[address] [place] [address] Platelets (Bld) [#/Vol] 238 x10*3/uL Normal 150-450 [facility] Comment on above: Performed By: #### 5 8410-2 ####GARRY Schmid ([id number])[facility] ([facility])[address] [place] [address] RBC (Bld) [#/Vol] 3.56 x10*6/uL Low 4.00-5.20 [facility] Comment on above: Performed By: #### 5 8410-2 ####GARRY Schmid ([id number])[facility] ([facility])[address] [place] [address] WBC (Bld) [#/Vol] 7.8 x10*3/uL Normal 4.4-11.3 [facility] Comment on above: Performed By: #### 5 8410-2 ####GARRY PEREZ L (23058)[facility] ([facility])[address] [place] [address] Erythrocyte distribution width (RBC) [Ratio] 13.4 % Normal 11.5-14.5 [facility] Comment on above: Order Comment: Pleas e obtain after 1 hour after 2/2 prbc transfusion. Performed By: #### 5 8410-2 ####GARRY Schmid ([id number])[facility] ([facility])[address] [place] [address] Hematocrit (Bld) [Volume fraction] 29.9 % Low 36.0-46.0 [facility] Comment on above: Order Comment: Pleas e obtain after 1 hour after 2/2 prbc transfusion. Performed By: #### 5 8410-2 ####GARRY Schmid ([id number])[facility] ([facility])[address] [place] [address] Hemoglobin (Bld) [Mass/Vol] 10.3 g/dL Low 12.0-16.0 [facility] Comment on above: Order Comment: Pleas e obtain after 1 hour after 2/2 prbc transfusion. Performed By: #### 5 8410-2 ####GARRY Schmid ([id number])[facility] ([facility])[address]66 [place] [address] MCH (RBC) [Entitic mass] 30.7 pg Normal 26.0-34.0 [facility] Comment on above: Order Comment: Pleas e obtain after 1 hour after 2/2 prbc transfusion. Performed By: #### 5 8410-2 ####GARRY Schmid ([id number])[facility] ([facility])[address] [place] [address] MCHC (RBC) [Mass/Vol] 34.4 g/dL Normal 32.0-36.0 [facility] Comment on above: Order Comment: Pleas e obtain after 1 hour after 2/2 prbc transfusion. Performed By: #### 5 8410-2 ####GARRY Schmid ([id number])[facility] ([facility])[address] [place] [address] MCV (RBC) [Entitic vol] 89 fL Normal 80-100 [facility] Comment on above: Order Comment: Pleas e obtain after 1 hour after 2/2 prbc transfusion. Performed By: #### 5 8410-2 ###ARLEN Schmid ([id number])[facility] ([facility])[address] [place] [address] Nucleated RBC/100 WBC (Bld) [Ratio] 0.2 /100 WBCs High 0.0-0.0 [facility] Comment on above: Order Comment: Pleas e obtain after 1 hour after 2/2 prbc transfusion. Performed By: #### 5 8410-2 ####GARRY Schmid ([id number])[facility] ([facility])[address] [place] [address] Platelets (Bld) [#/Vol] 209 x10*3/uL Normal 150-450 [facility] Comment on above: Order Comment: Pleas e obtain after 1 hour after 2/2 prbc transfusion. Performed By: #### 5 8410-2 ####GARRY Schmid (33814)[facility] ([facility])[address] [place] [address] RBC (Bld) [#/Vol] 3.36 x10*6/uL Low 4.00-5.20 [facility] Comment on above: Order Comment: Pleas e obtain after 1 hour after 2/2 prbc transfusion. Performed By: #### 5 8410-2 ####GARRY Schmid ([id number])[facility] ([facility])[address] [place] [address] WBC (Bld) [#/Vol] 9.4 x10*3/uL Normal 4.4-11.3 [facility] Comment on above: Order Comment: Pleas e obtain after 1 hour after 2/2 prbc transfusion. Performed By: #### 5 8410-2 ####GARRY Schmid ([id number])[facility] ([facility])[address] [place] [address] Comprehensive metabolic 2000 panelon 10-14-2023 Albumin BCP dye [Mass/Vol] 2.8 g/dL Low 3.4-5.0 [facility] Comment on above: Performed By: #### 2 4323-8 ####GARRY Schmid ([id number])[facility] ([facility])[address] [place] [address] ALP [Catalytic activity/Vol] 63 U/L Normal 33-110 [facility] Comment on above: Performed By: #### 2 4323-8 ####GARRY Schmid ([id number])[facility] ([facility])[address] [place] [address] ALT With P-5'-P [Catalytic activity/Vol] 63 U/L High 7-45 [facility] Comment on above: Result Comment: Gianna ents treated with Sulfasalazine may generate falsely decreased results for ALT. Performed By: #### 2 4323-8 ####GARRY Schmid ([id number])[facility] ([facility])[address] [place] [address] Anion gap [Moles/Vol] 10 mmol/L Normal 10-20 [facility] Comment on above: Performed By: #### 2 4323-8 ####GARRY Schmid ([id number])[facility] ([facility])[address]607 [place] [address] AST With P-5'-P [Catalytic activity/Vol] 170 U/L High 9-39 [facility] Comment on above: Performed By: #### 2 4323-8 ####GARRY Schmid ([id number])[facility] ([facility])[address]52 [place] [address] Bilirubin [Mass/Vol] 0.5 mg/dL Normal 0.0-1.2 [facility] Comment on above: Performed By: #### 2 4323-8 ####GARRY Schmid ([id number])[facility] ([facility])[address] [place] [address] Calcium [Mass/Vol] 7.7 mg/dL Low 8.6-10.6 [facility] Comment on above: Performed By: #### 2 4323-8 ####GARRY Schmid (40897)[facility] ([facility])[address] [place] [address] Chloride [Moles/Vol] 107 mmol/L Normal 98-107 [facility] Comment on above: Performed By: #### 2 4323-8 ####GARRY Schmid ([id number])[facility] ([facility])[address] [place] [address] CO2 [Moles/Vol] 24 mmol/L Normal 21-32 [facility] Comment on above: Performed By: #### 2 4323-8 ####GARRY Schmid (36452)[facility] ([facility])[address] [place] [address] Creatinine [Mass/Vol] 0.56 mg/dL Normal 0.50-1.05 [facility] Comment on above: Performed By: #### 2 4323-8 ####GARRY Schmid (66834)[facility] ([facility])[address]14 [place] [address] GFR/1.73 sq M.predicted MDRD (S/P/Bld) [Vol rate/Area] mL/min/{1.73_m2} Normal >60 [facility] Comment on above: Result Comment: Calc ulations of estimated GFR are performed using the 2020 CKD-EPI Study Refit equation without the race variable for the IDMS-Traceable creatinine methods.https://jasn.asnjournals.org/content// N.4998131712 Performed By: #### 2 4323-8 ####GARRY Schmid (89725)[facility] ([facility])[address]238 [place] [address] Glucose [Mass/Vol] 91 mg/dL Normal 74-99 [facility] Comment on above: Performed By: #### 2 4323-8 ####GARRY Schmid ([id number])[facility] ([facility])[address]188 [place] [address] Potassium [Moles/Vol] 3.8 mmol/L Normal 3.5-5.3 [facility] Comment on above: Performed By: #### 2 4323-8 ####GARRY Schmid (96478)[facility] ([facility])[address]656 [place] [address] Protein [Mass/Vol] 5.0 g/dL Low 6.4-8.2 [facility] Comment on above: Performed By: #### 2 4323-8 ####GARRY Schmid ([id number])[facility] ([facility])[address]386 [place] [address] Sodium [Moles/Vol] 137 mmol/L Normal 136-145 [facility] Comment on above: Performed By: #### 2 4323-8 ####GARRY Schmid (98424)[facility] ([facility])[address]248 [place] [address] Urea nitrogen [Mass/Vol] 7 mg/dL Normal 6-23 [facility] Comment on above: Performed By: #### 2 4323-8 ####GARRY Schmid ([id number])[facility] ([facility])[address]952 [place] [address] Glucose Test strip manual (B ld) [Mass/Vol]on 10-14-2023 Glucose [Mass/Vol] 83 mg/dL Normal 74-99 [facility] Comment on above: Performed By: #### 2 341-6 ####GARRY Schmid ([id number])[facility] ([facility])[address] [place] [address] Glucose [Mass/Vol] 84 mg/dL Normal 74-99 [facility] Comment on above: Performed By: #### 2 341-6 ####GARRY Schmid (57137)[facility] ([facility])[address] [place] [address] Glucose [Mass/Vol] 104 mg/dL High 74-99 [facility] Comment on above: Performed By: #### 2 341-6 ####GARRY Schmid (30266)[facility] ([facility])[address] [place] [address] Glucose [Mass/Vol] 70 mg/dL Low 74-99 [facility] Comment on above: Performed By: #### 2 341-6 ####GARRY Schmid (07651)[facility] ([facility])[address] [place] [address] Glucose [Mass/Vol] 83 mg/dL Normal 74-99 [facility] Comment on above: Performed By: #### 2 341-6 ####GARRY Schmid (55564)[facility] ([facility])[address] [place] [address] Glucose [Mass/Vol] 47 mg/dL Low 74-99 [facility] Comment on above: Performed By: #### 2 341-6 ####GARRY Schmid (43346)[facility] ([facility])[address] [place] [address] Glucose [Mass/Vol] 128 mg/dL High 74-99 [facility] Comment on above: Performed By: #### 2 341-6 ####GARRY Schmid ([id number])[facility] ([facility])[address]460 [place] [address] Magnesiumon 10-14-2023 Magnesium [Mass/Vol] 2.16 mg/dL Normal 1.60-2.40 [facility] Comment on above: Performed By: #### 1 9123-9 ####GARRY Schmid (69291)[facility] ([facility])[address] [place] [address] Triglycerideon 10-14-2023 Triglyceride (Body fld) [Mass/Vol] 326 mg/dL Normal No established [facility] Comment on above: Order Comment: Pleas e send from L drain (this is not a repeat lab)The performance characteristics of this test have been validated on peritoneal/ascites,pleural, pericardial and drain fluid by the [facility] laboratory. This test has not been approved by the FDA; however, such approval is not necessary. Performed By: #### 1 2228-3 ####GARRY Schmid ([id number])[facility] ([facility])[address] [place] [address] Triglyceride (Body fld) [Mass/Vol] 280 mg/dL Normal No established [facility] Comment on above: Order Comment: Juliet rivera in Result Comment: The performance characteristics of this method have not been validated for use with this fluid specimen type. The test result should be interpreted in conjunction with additional clinical and laboratory data. Performed By: #### 1 2228-3 ####GARRY Schmid ([id number])[facility] ([facility])[address] [place] [address] Blood type and Indirect anti body screen panel (Bld)on 10-13-2023 ABO group Nom (Bld) A Normal [facility] Comment on above: Performed By: #### 3 4532-2 ####GARRY Schmid ([id number])[facility] ([facility])[address] [place] [address] Blood group antibody screen Ql Negative Normal [facility] Comment on above: Performed By: #### 3 4532-2 ####GARRY Schmid (40102)[facility] ([facility])[address] [place] [address] D Ag Ql (Bld) Positive Normal [facility] Comment on above: Performed By: #### 3 4532-2 ####GARRY Schmid ([id number])[facility] ([facility])[address] [place] [address] CBC panel Auto (Bld)on 10-13 Erythrocyte distribution width (RBC) [Ratio] 13.3 % Normal 11.5-14.5 [facility] Comment on above: Performed By: #### 5 8410-2 ####GARRY Schmid ([id number])[facility] ([facility])[address] [place] [address] Hematocrit (Bld) [Volume fraction] 17.1 % Low 36.0-46.0 [facility] Comment on above: Performed By: #### 5 8410-2 ####GARRY Schmid ([id number])[facility] ([facility])[address] [place] [address] Hemoglobin (Bld) [Mass/Vol] 5.6 g/dL Critically low 12.0-16.0 [facility] Comment on above: Performed By: #### 5 8410-2 ####GARRY Schmid (25432)[facility] ([facility])[address] [place] [address] MCH (RBC) [Entitic mass] 30.8 pg Normal 26.0-34.0 [facility] Comment on above: Performed By: #### 5 8410-2 ####GARRY Schmid ([id number])[facility] ([facility])[address] [place] [address] MCHC (RBC) [Mass/Vol] 32.7 g/dL Normal 32.0-36.0 [facility] Comment on above: Performed By: #### 5 8410-2 ####GARRY Schmid ([id number])[facility] ([facility])[address] [place] [address] MCV (RBC) [Entitic vol] 94 fL Normal 80-100 [facility] Comment on above: Performed By: #### 5 8410-2 ####GARRY Schmid ([id number])[facility] ([facility])[address] [place] [address] Nucleated RBC/100 WBC (Bld) [Ratio] 0.0 /100 WBCs Normal 0.0-0.0 [facility] Comment on above: Performed By: #### 5 8410-2 ####GARRY Schmid ([id number])[facility] ([facility])[id number] [place] [id number] Platelets (Bld) [#/Vol] 238 x10*3/uL Normal 150-450 [facility] Comment on above: Performed By: #### 5 8410-2 ####GARRY Schmid ([id number])[facility] ([facility])[address] [place] [address] RBC (Bld) [#/Vol] 1.82 x10*6/uL Low 4.00-5.20 [facility] Comment on above: Performed By: #### 5 8410-2 ####GARRY Schmid ([id number])[facility] ([facility])[address] [place] [address] WBC (Bld) [#/Vol] 9.2 x10*3/uL Normal 4.4-11.3 [facility] Comment on above: Performed By: #### 5 8410-2 ####GARRY Schmid ([id number])[facility] ([facility])[address] [place] [address] Erythrocyte distribution width (RBC) [Ratio] 13.2 % Normal 11.5-14.5 [facility] Comment on above: Performed By: #### 5 8410-2 ####GARRY Schmid ([id number])[facility] ([facility])[address] [place] [address] Hematocrit (Bld) [Volume fraction] 17.2 % Low 36.0-46.0 [facility] Comment on above: Performed By: #### 5 8410-2 ####GARRY Schmid ([id number])[facility] ([facility])[address] [place] [address] Hemoglobin (Bld) [Mass/Vol] 5.8 g/dL Critically low 12.0-16.0 [facility] Comment on above: Performed By: #### 5 8410-2 ####GARRY Schmid ([id number])[facility] ([facility])[address] [place] [address] MCH (RBC) [Entitic mass] 31.9 pg Normal 26.0-34.0 [facility] Comment on above: Performed By: #### 5 8410-2 ####GARRY Schmid ([id number])[facility] ([facility])[address] [place] [address] MCHC (RBC) [Mass/Vol] 33.7 g/dL Normal 32.0-36.0 [facility] Comment on above: Performed By: #### 5 8410-2 ####GARRY Schmid ([id number])[facility] ([facility])[address] [place] [address] MCV (RBC) [Entitic vol] 95 fL Normal 80-100 [facility] Comment on above: Performed By: #### 5 8410-2 ####GARRY Schmid ([id number])[facility] ([facility])[address] [place] [address] Nucleated RBC/100 WBC (Bld) [Ratio] 0.2 /100 WBCs High 0.0-0.0 [facility] Comment on above: Performed By: #### 5 8410-2 ####GARRY Schmid ([id number])[facility] ([facility])[address] [place] [address] Platelets (Bld) [#/Vol] 233 x10*3/uL Normal 150-450 [facility] Comment on above: Performed By: #### 5 8410-2 ####GARRY Schmid ([id number])[facility] ([facility])[address] [place] [address] RBC (Bld) [#/Vol] 1.82 x10*6/uL Low 4.00-5.20 [facility] Comment on above: Performed By: #### 5 8410-2 ####GARRY Schmid ([id number])[facility] ([facility])[address] [place] [address] WBC (Bld) [#/Vol] 9.3 x10*3/uL Normal 4.4-11.3 [facility] Comment on above: Performed By: #### 5 8410-2 ####GARRY Schmid ([id number])[facility] ([facility])[address] [place] [address] Comprehensive metabolic 2000 panelon 10-13-2023 Albumin BCP dye [Mass/Vol] 2.5 g/dL Low 3.4-5.0 [facility] Comment on above: Performed By: #### 2 4323-8 ####GARRY Schmid ([id number])[facility] ([facility])[address] [place] [address] ALP [Catalytic activity/Vol] 53 U/L Normal 33-110 [facility] Comment on above: Performed By: #### 2 4323-8 ####GARRY Schmid ([id number])[facility] ([facility])[address] [place] [address] ALT With P-5'-P [Catalytic activity/Vol] 60 U/L High 7-45 [facility] Comment on above: Result Comment: Gianna ents treated with Sulfasalazine may generate falsely decreased results for ALT. Performed By: #### 2 4323-8 ####GARRY Schmid ([id number])[facility] ([facility])[address] [place] [address] Anion gap [Moles/Vol] 9 mmol/L Low 10-20 [facility] Comment on above: Performed By: #### 2 4323-8 ####GARRY PEREZ L ([id number])[facility] ([facility])[address] [place] [address] AST With P-5'-P [Catalytic activity/Vol] 192 U/L High 9-39 [facility] Comment on above: Performed By: #### 2 4323-8 ####GARRY PEREZ L ([id number])[facility] ([facility])[address] [place] [address] Bilirubin [Mass/Vol] 0.2 mg/dL Normal 0.0-1.2 [facility] Comment on above: Performed By: #### 2 4323-8 ####GARRY Schmid ([id number])[facility] ([facility])[address] [place] [address] Calcium [Mass/Vol] 7.2 mg/dL Low 8.6-10.6 [facility] Comment on above: Performed By: #### 2 4323-8 ####GARRY Schmid ([id number])[facility] ([facility])[address] [place] [address] Chloride [Moles/Vol] 106 mmol/L Normal 98-107 [facility] Comment on above: Performed By: #### 2 4323-8 ####GARRY Schmid ([id number])[facility] ([facility])[address] [place] [address] CO2 [Moles/Vol] 26 mmol/L Normal 21-32 [facility] Comment on above: Performed By: #### 2 4323-8 ####GARRY Schmid ([id number])[facility] ([facility])[address] [place] [address] Creatinine [Mass/Vol] 0.56 mg/dL Normal 0.50-1.05 [facility] Comment on above: Performed By: #### 2 4323-8 ####GARRY Schmid ([id number])[facility] ([facility])[address] [place] [address] GFR/1.73 sq M.predicted MDRD (S/P/Bld) [Vol rate/Area] mL/min/{1.73_m2} Normal >60 [facility] Comment on above: Result Comment: Calc ulations of estimated GFR are performed using the 2020 CKD-EPI Study Refit equation without the race variable for the IDMS-Traceable creatinine methods.https://jasn.asnjournals.org/content// N.9503785698 Performed By: #### 2 4323-8 ####GARRY Schmid ([id number])[facility] ([facility])[address] [place] [address] Glucose [Mass/Vol] 114 mg/dL High 74-99 [facility] Comment on above: Performed By: #### 2 4323-8 ####GARRY Schmid ([id number])[facility] ([facility])[address] [place] [address] Potassium [Moles/Vol] 4.2 mmol/L Normal 3.5-5.3 [facility] Comment on above: Performed By: #### 2 4323-8 ####GARRY Schmid ([id number])[facility] ([facility])[address] [place] [address] Protein [Mass/Vol] 4.3 g/dL Low 6.4-8.2 [facility] Comment on above: Performed By: #### 2 4323-8 ####GARRY Schmid ([id number])[facility] ([facility])[address] [place] [address] Sodium [Moles/Vol] 137 mmol/L Normal 136-145 [facility] Comment on above: Performed By: #### 2 4323-8 ####GARRY Schmid ([id number])[facility] ([facility])[address] [place] [address] Urea nitrogen [Mass/Vol] 8 mg/dL Normal 6-23 [facility] Comment on above: Performed By: #### 2 4323-8 ####GARRY Schmid ([id number])[facility] ([facility])[address] [place] [address] Glucose Test strip manual (B ld) [Mass/Vol]on 10-13-2023 Glucose [Mass/Vol] 90 mg/dL Normal 74-99 [facility] Comment on above: Performed By: #### 2 341-6 ####GARRY Schmid ([id number])[facility] ([facility])[address] [place] [address] Glucose [Mass/Vol] 56 mg/dL Low 74-99 [facility] Comment on above: Performed By: #### 2 341-6 ####GARRY Schmid (54426)[facility] ([facility])[address]68 [place] [address] Glucose [Mass/Vol] 68 mg/dL Low -[address] [place] [address] Comment on above: Performed By: #### 2 341-6 ####GARRY Schmid ([id number])[facility] ([facility])[address] [place] [address] Glucose [Mass/Vol] 85 mg/dL Normal 74-99 [facility] Comment on above: Performed By: #### 2 341-6 ####GARRY Schmid ([id number])[facility] ([facility])[address]12 [place] [address] Glucose [Mass/Vol] 120 mg/dL High -[address] [place] [address] Comment on above: Performed By: #### 2 341-6 ####GARRY Schmid ([id number])[facility] ([facility])[address]86 [place] [address] Glucose [Mass/Vol] 102 mg/dL High [address] [place] [address] Comment on above: Performed By: #### 2 341-6 ####GARRY Schmid ([id number])[facility] ([facility])[address] [place] [address] Glucose [Mass/Vol] 112 mg/dL High [address] [place] [address] Comment on above: Performed By: #### 2 341-6 ####GARRY Schmid ([id number])[facility] ([facility])[address] [place] [address] Magnesiumon 10-13-2023 Magnesium [Mass/Vol] 2.20 mg/dL Normal 1.60-2.40 [facility] Comment on above: Performed By: #### 1 9123-9 ####GARRY Schmid ([id number])[facility] ([facility])[address] [place] [address] Triglycerideon 10-13-2023 Triglyceride (Body fld) [Mass/Vol] 808 mg/dL Normal No established [facility] Comment on above: Order Comment: LEFT side Result Comment: The performance characteristics of this method have not been validated for use with this fluid specimen type. The test result should be interpreted in conjunction with additional clinical and laboratory data. Performed By: #### 1 2228-3 ####GARRY Schmid ([id number])[facility] ([facility])[address] [place] [address] Triglyceride (Body fld) [Mass/Vol] 833 mg/dL Normal No established [facility] Comment on above: Result Comment: The performance characteristics of this method have not been validated for use with this fluid specimen type. The test result should be interpreted in conjunction with additional clinical and laboratory data. Performed By: #### 1 2228-3 ####GARRY PEREZ L ([id number])[facility] ([facility])[id number] [place] [address] CBC panel Auto (Bld)on 10-12 Erythrocyte distribution width (RBC) [Ratio] 13.0 % Normal 11.5-14.5 [facility] Comment on above: Performed By: #### 5 8410-2 ####GARRY Schmid ([id number])[facility] ([facility])[address] [place] [address] Hematocrit (Bld) [Volume fraction] 24.7 % Low 36.0-46.0 [facility] Comment on above: Performed By: #### 5 8410-2 ####GARRY PEREZ L ([id number])[facility] ([facility])[address] [place] [address] Hemoglobin (Bld) [Mass/Vol] 7.7 g/dL Low 12.0-16.0 [facility] Comment on above: Performed By: #### 5 8410-2 ####GARRY PEREZ L (45607)[facility] ([facility])[address] [place] [address] MCH (RBC) [Entitic mass] 30.3 pg Normal 26.0-34.0 [facility] Comment on above: Performed By: #### 5 8410-2 ####GARRY Schmid ([id number])[facility] ([facility])[address] [place] [address] MCHC (RBC) [Mass/Vol] 31.2 g/dL Low 32.0-36.0 [facility] Comment on above: Performed By: #### 5 8410-2 ####GARRY Schmid (55027)[facility] ([facility])[address] [place] [address] MCV (RBC) [Entitic vol] 97 fL Normal 80-100 [facility] Comment on above: Performed By: #### 5 8410-2 ####GARRY Schmid ([id number])[facility] ([facility])[address] [place] [address] Nucleated RBC/100 WBC (Bld) [Ratio] 0.3 /100 WBCs High 0.0-0.0 [facility] Comment on above: Performed By: #### 5 8410-2 ####GARRY Schmid ([id number])[facility] ([facility])[address]73 [place] [address] Platelets (Bld) [#/Vol] 163 x10*3/uL Normal 150-450 [facility] Comment on above: Performed By: #### 5 8410-2 ####GARRY Schmid ([id number])[facility] ([facility])[address]223 [place] [address] RBC (Bld) [#/Vol] 2.54 x10*6/uL Low 4.00-5.20 [facility] Comment on above: Performed By: #### 5 8410-2 ####GARRY PEREZ L ([id number])[facility] ([facility])[address]13 [place] [address] WBC (Bld) [#/Vol] 10.4 x10*3/uL Normal 4.4-11.3 [facility] Comment on above: Performed By: #### 5 8410-2 ####GARRY Schmid ([id number])[facility] ([facility])[address]35 [place] [address] Comprehensive metabolic 2000 panelon 10-12-2023 Albumin BCP dye [Mass/Vol] 2.9 g/dL Low 3.4-5.0 [facility] Comment on above: Performed By: #### 2 4323-8 ####GARRY Schmid (60895)[facility] ([facility])[address] [place] [address] ALP [Catalytic activity/Vol] 54 U/L Normal 33-110 [facility] Comment on above: Performed By: #### 2 4323-8 ####GARRY Schmid ([id number])[facility] ([facility])[address] [place] [address] ALT With P-5'-P [Catalytic activity/Vol] 51 U/L High 7-45 [facility] Comment on above: Result Comment: Gianna ents treated with Sulfasalazine may generate falsely decreased results for ALT. Performed By: #### 2 4323-8 ####GARRY Schmid ([id number])[facility] ([facility])[address] [place] [address] Anion gap [Moles/Vol] 13 mmol/L Normal 10-20 [facility] Comment on above: Performed By: #### 2 4323-8 ####GARRY Schmid (23577)[facility] ([facility])[address]35 [place] [address] AST With P-5'-P [Catalytic activity/Vol] 162 U/L High 9-39 [facility] Comment on above: Performed By: #### 2 4323-8 ####GARRY Schmid ([id number])[facility] ([facility])[address]42 [place] [address] Bilirubin [Mass/Vol] 0.7 mg/dL Normal 0.0-1.2 [facility] Comment on above: Performed By: #### 2 4323-8 ####GARRY Schmid (30608)[facility] ([facility])[address] [place] [address] Calcium [Mass/Vol] 7.6 mg/dL Low 8.6-10.6 [facility] Comment on above: Performed By: #### 2 4323-8 ####GARRY PEREZ L (71839)[facility] ([facility])[address]33 [place] [address] Chloride [Moles/Vol] 105 mmol/L Normal 98-107 [facility] Comment on above: Performed By: #### 2 4323-8 ####GARRY PEREZ L (28083)[facility] ([facility])[address]146 [place] [address] CO2 [Moles/Vol] 21 mmol/L Normal 21-32 [facility] Comment on above: Performed By: #### 2 4323-8 ####GARRY PEREZ L ([id number])[facility] ([facility])[address] [place] [address] Creatinine [Mass/Vol] 0.79 mg/dL Normal 0.50-1.05 [facility] Comment on above: Performed By: #### 2 4323-8 ####GARRY PEREZ L ([id number])[facility] ([facility])[address]158 [place] [address] GFR/1.73 sq M.predicted MDRD (S/P/Bld) [Vol rate/Area] mL/min/{1.73_m2} Normal >60 [facility] Comment on above: Result Comment: Calc ulations of estimated GFR are performed using the 2020 CKD-EPI Study Refit equation without the race variable for the IDMS-Traceable creatinine methods.https://jasn.asnjournals.org/content/early/ N.7922429035 Performed By: #### 2 4323-8 ####GARRY PEREZ L (36011)[facility] ([facility])[address] [place] [address] Glucose [Mass/Vol] 112 mg/dL High 74-99 [facility] Comment on above: Performed By: #### 2 4323-8 ####GARRY Schmid (56356)[facility] ([facility])[address] [place] [address] Potassium [Moles/Vol] 4.1 mmol/L Normal 3.5-5.3 [facility] Comment on above: Performed By: #### 2 4323-8 ####GARRY Schmid (97857)[facility] ([facility])[address]19 [place] [address] Protein [Mass/Vol] 5.1 g/dL Low 6.4-8.2 [facility] Comment on above: Performed By: #### 2 4323-8 ####GARRY Schmid (36970)[facility] ([facility])[address]10 [place] [address] Sodium [Moles/Vol] 135 mmol/L Low 136-145 [facility] Comment on above: Performed By: #### 2 4323-8 ####GARRY Schmid ([id number])[facility] ([facility])[address] [place] [address] Urea nitrogen [Mass/Vol] 12 mg/dL Normal 6-23 [facility] Comment on above: Performed By: #### 2 4323-8 ####GARRY Schmid ([id number])[facility] ([facility])[address]98 [place] [address] Glucose Test strip manual (B ld) [Mass/Vol]on 10-12-2023 Glucose [Mass/Vol] 141 mg/dL High 74-99 [facility] Comment on above: Performed By: #### 2 341-6 ####GARRY Schmid ([id number])[facility] ([facility])[address] [place] [address] Glucose [Mass/Vol] 170 mg/dL High 74-99 [facility] Comment on above: Performed By: #### 2 341-6 ####GARRY Schmid (34343)[facility] ([facility])[address]86 [place] [address] Glucose [Mass/Vol] 42 mg/dL Low 74-99 [facility] Comment on above: Performed By: #### 2 341-6 ####GARRY Schmid ([id number])[facility] ([facility])[address]85 [place] [address] Glucose [Mass/Vol] 42 mg/dL Low 74-99 [facility] Comment on above: Performed By: #### 2 341-6 ####GARRY Schmid (98094)[facility] ([facility])[address]132 [place] [address] Glucose [Mass/Vol] 78 mg/dL Normal [address] [place] [address] Comment on above: Performed By: #### 2 341-6 ####GARRY Schmid ([id number])[facility] ([facility])[address]129 [place] [address] Glucose [Mass/Vol] 97 mg/dL Normal -99 [facility] Comment on above: Performed By: #### 2 341-6 ####GARRY Schmid (21779)[facility] ([facility])[address] [facility] [place] [address] Glucose [Mass/Vol] 108 mg/dL High -99 [facility] Comment on above: Performed By: #### 2 341-6 ####GARRY Schmid (58284)[facility] ([facility])[address]69 [place] [address] Glucose [Mass/Vol] 129 mg/dL High -99 [facility] Comment on above: Performed By: #### 2 341-6 ####GARRY Schimd (71899)[facility] ([facility])[address] [facility] [address] Magnesiumon 10-12-2023 Magnesium [Mass/Vol] 2.24 mg/dL Normal 1.60-2.40 [facility] Comment on above: Performed By: #### 1 9123-9 ####GARRY Schmid ([id number])[facility] ([facility])[address] [place] [address] PT and aPTT panel Coag (PPP) on 10-12-2023 aPTT Coag (PPP) [Time] 24 s Low 27-38 [facility] Comment on above: Order Comment: The A PTT is no longer used for monitoring Unfractionated Heparin Therapy. For monitoring Heparin Therapy, use the Heparin Assay. Performed By: #### 3 4529-8 ####GARRY Schmid (48610)[facility] ([facility])[address] [place] [address] INR Coag (PPP) [Relative time] 1.1 Normal 0.9-1.1 [facility] Comment on above: Order Comment: The A PTT is no longer used for monitoring Unfractionated Heparin Therapy. For monitoring Heparin Therapy, use the Heparin Assay. Performed By: #### 3 4529-8 ####GARRY Schmid ([id number])[facility] ([facility])[address] [place] [address] PT Coag (PPP) [Time] 12.2 s Normal 9.8-12.8 [facility] Comment on above: Order Comment: The A PTT is no longer used for monitoring Unfractionated Heparin Therapy. For monitoring Heparin Therapy, use the Heparin Assay. Performed By: #### 3 4529-8 ####GARRY Schmid ([id number])[facility] ([facility])[id number] [place] [address] Basic metabolic 2000 panelon 10-11-2023 Anion gap [Moles/Vol] 11 mmol/L Normal 10-20 [facility] Comment on above: Performed By: #### 2 4321-2 ####GARRY Schmid ([id number])[facility] ([facility])[address] [place] [address] Calcium [Mass/Vol] 7.4 mg/dL Low 8.6-10.6 [facility] Comment on above: Performed By: #### 2 4321-2 ####GARRY Schmid ([id number])[facility] ([facility])[address]406 [place] [address] Chloride [Moles/Vol] 106 mmol/L Normal 98-107 [facility] Comment on above: Performed By: #### 2 4321-2 ####GARRY Schmid ([id number])[facility] ([facility])[address] [place] [address] CO2 [Moles/Vol] 23 mmol/L Normal 21-32 [facility] Comment on above: Performed By: #### 2 4321-2 ####GARRY Schmid (10298)[facility] ([facility])[address]68 [place] [address] Creatinine [Mass/Vol] 0.56 mg/dL Normal 0.50-1.05 [facility] Comment on above: Performed By: #### 2 4321-2 ####GARRY Schmid ([id number])[facility] ([facility])[address] [place] [address] GFR/1.73 sq M.predicted MDRD (S/P/Bld) [Vol rate/Area] mL/min/{1.73_m2} Normal >60 [facility] Comment on above: Result Comment: Calc ulations of estimated GFR are performed using the 2020 CKD-EPI Study Refit equation without the race variable for the IDMS-Traceable creatinine methods.https://jasn.asnjournals.org/content/early/ N.7086115946 Performed By: #### 2 4321-2 ####GARRY Schmid ([id number])[facility] ([facility])[address] [place] [address] Glucose [Mass/Vol] 136 mg/dL High 74-99 [facility] Comment on above: Performed By: #### 2 4321-2 ####GARRY Schmid (59776)[facility] ([facility])[address] [place] [address] Potassium [Moles/Vol] 4.1 mmol/L Normal 3.5-5.3 [facility] Comment on above: Performed By: #### 2 4321-2 ####GARRY Schmid ([id number])[facility] ([facility])[address] [place] [address] Sodium [Moles/Vol] 136 mmol/L Normal 136-145 [facility] Comment on above: Performed By: #### 2 4321-2 ####GARRY Schmid ([id number])[facility] ([facility])[address] [place] [address] Urea nitrogen [Mass/Vol] 8 mg/dL Normal 6-23 [facility] Comment on above: Performed By: #### 2 4320-2 ####GARRY Schmid ([id number])[facility] ([facility])[address] [place] [address] Blood type and Indirect anti body screen panel (Bld)on 10-11-2023 ABO group Nom (Bld) A Normal [facility] Comment on above: Performed By: #### 3 4532-2 ####GARRY Schmid ([id number])[facility] ([facility] [place] [address] Blood group antibody screen Ql Negative [facility] Comment on above: Performed By: #### 3 4532-2 ####GARRY Schmid ([id number])[facility] ([facility] [facility] [place] [address] D Ag Ql (Bld) Positive [facility] Comment on above: Performed By: #### 3 4532-2 ####GARRY Schmid ([id number])[facility] ([facility])[address], [place] [address] CBC W Auto Differential pane l (Bld)on 10-11-2023 Basophils (Bld) [#/Vol] 0.01 x10*3/uL Normal 0.00-0.10 [facility] Comment on above: Performed By: #### 5 7021-8 ####GARRY Schmid ([id number])[facility] ([facility])[address] [place] [address] Basophils/100 WBC (Bld) 0.1 % Normal 0.0-2.0 [facility] Comment on above: Performed By: #### 5 7021-8 ####GARRY Schmid ([id number])[facility] ([facility])[address] [place] [address] Eosinophils (Bld) [#/Vol] 0.00 x10*3/uL Normal 0.00-0.70 [facility] Comment on above: Performed By: #### 5 7021-8 ####GARRY Schmid ([id number])[facility] ([facility])[address] [place] [address] Eosinophils/100 WBC (Bld) 0.0 % Normal 0.0-6.0 [facility] Comment on above: Performed By: #### 5 7021-8 ####GARRY Schmid ([id number])[facility] ([facility])[address] [place] [address] Erythrocyte distribution width (RBC) [Ratio] 12.2 % Normal 11.5-14.5 [facility] Comment on above: Performed By: #### 5 7021-8 ####GARRY Schmid ([id number])[facility] ([facility])[address] [place] [address] Hematocrit (Bld) [Volume fraction] 21.2 % Low 36.0-46.0 [facility] Comment on above: Performed By: #### 5 7021-8 ####GARRY Schmid ([id number])[facility] ([facility])[address] [place] [address] Hemoglobin (Bld) [Mass/Vol] 7.2 g/dL Low 12.0-16.0 [facility] Comment on above: Performed By: #### 5 7021-8 ####GARRY Schmid ([id number])[facility] ([facility])[address] [place] [address] Immature granulocytes (Bld) [#/Vol] 0.04 x10*3/uL Normal 0.00-0.70 [facility] Comment on above: Performed By: #### 5 7021-8 ####GARRY Schmid ([id number])[facility] ([facility])[address] [place] [address] Immature granulocytes/100 WBC (Bld) 0.4 % Normal 0.0-0.9 [facility] Comment on above: Result Comment: Jing ture Granulocyte Count (IG) includes promyelocytes, myelocytes and metamyelocytes but does not include bands. Percent differential counts (%) should be interpreted in the context of the absolute cell counts (cells/UL). Performed By: #### 5 7021-8 ####GARRY Schmid ([id number])[facility] ([facility])[address] [place] [address] Lymphocytes (Bld) [#/Vol] 0.81 x10*3/uL Low 1.20-4.80 [facility] Comment on above: Performed By: #### 5 7021-8 ####GARRY Schmid ([id number])[facility] ([facility])[address] [place] [address] Lymphocytes/100 WBC (Bld) 7.9 % Normal 13.0-44.0 [facility] Comment on above: Performed By: #### 5 7021-8 ####GARRY Schmid ([id number])[facility] ([facility])[address] [place] [address] MCH (RBC) [Entitic mass] 29.8 pg Normal 26.0-34.0 [facility] Comment on above: Performed By: #### 5 7021-8 ####GARRY Schmid ([id number])[facility] ([facility])[address] [place] [address] MCHC (RBC) [Mass/Vol] 34.0 g/dL Normal 32.0-36.0 [facility] Comment on above: Performed By: #### 5 7021-8 ####GARRY Schmid ([id number])[facility] ([facility])[address] [place] [address] MCV (RBC) [Entitic vol] 88 fL Normal 80-100 [facility] Comment on above: Performed By: #### 5 7021-8 ####GARRY Schmid ([id number])[facility] ([facility])[address] [place] [address] Monocytes (Bld) [#/Vol] 0.58 x10*3/uL Normal 0.10-1.00 [facility] Comment on above: Performed By: #### 5 7021-8 ####GARRY Schmid ([id number])[facility] ([facility])[address] [place] [address] Monocytes/100 WBC (Bld) 5.7 % Normal 2.0-10.0 [facility] Comment on above: Performed By: #### 5 7021-8 ####GARRY Schmid ([id number])[facility] ([facility])[address] [place] [address] Neutrophils (Bld) [#/Vol] 8.81 x10*3/uL High 1.20-7.70 [facility] Comment on above: Result Comment: Perc ent differential counts (%) should be interpreted in the context of the absolute cell counts (cells/uL). Performed By: #### 5 7021-8 ####GARRY Schmid ([id number])[facility] ([facility])[address] [place] [address] Neutrophils/100 WBC (Bld) 85.9 % Normal 40.0-80.0 [facility] Comment on above: Performed By: #### 5 7021-8 ####GARRY Schmid ([id number])[facility] ([facility])[address] [place] [address] Nucleated RBC/100 WBC (Bld) [Ratio] 0.0 /100 WBCs Normal 0.0-0.0 [facility] Comment on above: Performed By: #### 5 7021-8 ####GARRY Schmid ([id number])[facility] ([facility])[address] [place] [address] Platelets (Bld) [#/Vol] 194 x10*3/uL Normal 150-450 [facility] Comment on above: Performed By: #### 5 7021-8 ####GARRY Schmid ([id number])[facility] ([facility])[address] [place] [address] RBC (Bld) [#/Vol] 2.42 x10*6/uL Low 4.00-5.20 [facility] Comment on above: Performed By: #### 5 7021-8 ####GARRY Schmid ([id number])[facility] ([facility])[address] [place] [address] WBC (Bld) [#/Vol] 10.3 x10*3/uL Normal 4.4-11.3 [facility] Comment on above: Performed By: #### 5 7021-8 ####GARRY Schmid ([id number])[facility] ([facility])[address] [place] [address] Gas and Carbon monoxide and Electrolytes panel (BldA)on 10-11-2023 Anion gap 4 (BldA) [Moles/Vol] 9 mmo/L Low 10-25 [facility] Comment on above: Performed By: #### 9 3685-6 ####GARRY Schmid ([id number])[facility] ([facility])[address] [place] [address] APPARATUS CANNULA Normal [facility] Comment on above: Performed By: #### 9 3685-6 ####GARRY Schmid ([id number])[facility] ([facility])[address] [place] [address] Arterial patency Wrist artery --pre arterial puncture Negative Normal [facility] Comment on above: Performed By: #### 9 3685-6 ####GARRY Schmid ([id number])[facility] ([facility])[address]61 [place] [address] Base excess Calc (Bld) [Moles/Vol] -5.0000 mmol/L Low -2.0-3.0 [facility] Comment on above: Performed By: #### 9 3685-6 ####GARRY Schmid ([id number])[facility] ([facility])[address] [place] [address] Calcium.ionized (BldA) [Moles/Vol] 1.03 mmol/L Low 1.10-1.33 [facility] Comment on above: Performed By: #### 9 3685-6 ####GARRY Schmid ([id number])[facility] ([facility])[address] [place] [address] Chloride (BldA) [Moles/Vol] 107 mmol/L Normal 98-107 [facility] Comment on above: Performed By: #### 9 3685-6 ####GARRY Schmid ([id number])[facility] ([facility])[address] [place] [address] CO2 (Bld) [Partial pressure] 43 mm Hg High 38-42 [facility] Comment on above: Performed By: #### 9 3685-6 ####GARRY Schmid ([id number])[facility] ([facility])[address] [place] [address] Glucose [Mass/Vol] 140 mg/dL High 74-99 [facility] Comment on above: Performed By: #### 9 3685-6 ####GARRY Schmid ([id number])[facility] ([facility])[address] [place] [address] HCO3 (Bld) [Moles/Vol] 21.2 mmol/L Low 22.0-26.0 [facility] Comment on above: Performed By: #### 9 3685-6 ####GARRY Schmid ([id number])[facility] ([facility])[address] [place] [address] Hematocrit Est (Bld) [Volume fraction] 32.0 % Low 36.0-46.0 [facility] Comment on above: Performed By: #### 9 2585-6 ####GARRY Schmid ([id number])[facility] ([facility])[address] [place] [address] Hemoglobin (Bld) [Mass/Vol] 10.8 g/dL Low 12.0-16.0 [facility] Comment on above: Performed By: #### 9 3685-6 ####GARRY Schmid ([id number])[facility] ([facility])[address] [place] [address] Inhaled oxygen concentration 21 % Normal [facility] Comment on above: Performed By: #### 9 4385-6 ####GARRY Schmid ([id number])[facility] ([facility])[address] [place] [address] Lactate (BldA) [Moles/Vol] 1.8 mmol/L Normal 0.4-2.0 [facility] Comment on above: Performed By: #### 9 3685-6 ####GARRY Schmid ([id number])[facility] ([facility])[address] [place] [address] Oxygen (Bld) [Partial pressure] 145 mm Hg High 85-95 [facility] Comment on above: Performed By: #### 9 3685-6 ####GARRY Schmid (45251)[facility] ([facility])[address] [place] [address] Oxyhemoglobin (BldA) [Mass fraction] 97.0 % Normal 94.0-98.0 [facility] Comment on above: Performed By: #### 9 4715-6 ####GARRY Schmid ([id number])[facility] ([facility])[address] [place] [address] pH (Bld) 7.30 [pH] Low 7.38-7.42 [facility] Comment on above: Performed By: #### 9 3685-6 ####GARRY Schmid (28531)[facility] ([facility])[address] [place] [address] Potassium (BldA) [Moles/Vol] 3.9 mmol/L Normal 3.5-5.3 [facility] Comment on above: Performed By: #### 9 3685-6 ####GARRY Schmid (60385)[facility] ([facility])[address] [place] [address] Sodium (BldA) [Moles/Vol] 133 mmol/L Low 136-145 [facility] Comment on above: Performed By: #### 9 3685-6 ####GARRY Schmid (73830)[facility] ([facility])[address] [place] [address] Specimen drawn from Nom Arterial Line Normal [facility] Comment on above: Performed By: #### 9 9665-6 ####GARRY Schmid ([id number])[facility] ([facility])[address] [place] [address] Anion gap 4 (BldA) [Moles/Vol] 10 mmo/L Normal 10-25 [facility] Comment on above: Performed By: #### 9 4395-6 ####GARRY Schmid (14787)[facility] ([facility])[address] [place] [address] Base excess Calc (Bld) [Moles/Vol] -3.3000 mmol/L Low -2.0-3.0 [facility] Comment on above: Performed By: #### 9 5105-6 ####GARRY Schmid ([id number])[facility] ([facility])[address] [place] [address] Calcium.ionized (BldA) [Moles/Vol] 1.06 mmol/L Low 1.10-1.33 [facility] Comment on above: Performed By: #### 9 3685-6 ####GARRY Schmid ([id number])[facility] ([facility])[address] [place] [address] Chloride (BldA) [Moles/Vol] 106 mmol/L Normal 98-107 [facility] Comment on above: Performed By: #### 9 3685-6 ####GARRY Schmid ([id number])[facility] ([facility])[address] [place] [address] CO2 (Bld) [Partial pressure] 35 mm Hg Low 38-42 [facility] Comment on above: Performed By: #### 9 3685-6 ####GARRY Schmid ([id number])[facility] ([facility])[address] [place] [address] Glucose [Mass/Vol] 109 mg/dL High 74-99 [facility] Comment on above: Performed By: #### 9 4515-6 ####GARRY Schmid (72906)[facility] ([facility])[address] [place] [address] HCO3 (Bld) [Moles/Vol] 21.2 mmol/L Low 22.0-26.0 [facility] Comment on above: Performed By: #### 9 3685-6 ####GARRY Schmid (21025)[facility] ([facility])[address] [place] [address] Hematocrit Est (Bld) [Volume fraction] 26.0 % Low 36.0-46.0 [facility] Comment on above: Performed By: #### 9 1435-6 ####GARYR Schmid ([id number])[facility] ([facility])[address] [place] [address] Hemoglobin (Bld) [Mass/Vol] 8.8 g/dL Low 12.0-16.0 [facility] Comment on above: Performed By: #### 9 3865-6 ####GARRY Schmid ([id number])[facility] ([facility])[address] [place] [address] Inhaled oxygen concentration 50 % Normal [facility] Comment on above: Performed By: #### 9 3685-6 ####GARRY Schmid ([id number])[facility] ([facility])[address]98 [place] [address] Lactate (BldA) [Moles/Vol] 2.2 mmol/L High 0.4-2.0 [facility] Comment on above: Performed By: #### 9 3685-6 ####GARRY Schmid (08605)[facility] ([facility])[address]54 [place] [address] Oxygen (Bld) [Partial pressure] 195 mm Hg High 85-95 [facility] Comment on above: Performed By: #### 9 3685-6 ####GARRY Schmid ([id number])[facility] ([facility])[address] [place] [address] Oxyhemoglobin (BldA) [Mass fraction] 97.3 % Normal 94.0-98.0 [facility] Comment on above: Performed By: #### 9 3685-6 ####GARRY Schmid ([id number])[facility] ([facility])[address]682 [place] [address] pH (Bld) 7.39 [pH] Normal 7.38-7.42 [facility] Comment on above: Performed By: #### 9 3685-6 ####GARRY Schmid ([id number])[facility] ([facility])[address] [place] [address] Potassium (BldA) [Moles/Vol] 3.4 mmol/L Low 3.5-5.3 [facility] Comment on above: Performed By: #### 9 3685-6 ####GARRY Schmid ([id number])[facility] ([facility])[address]22 [place] [address] Sodium (BldA) [Moles/Vol] 134 mmol/L Low 136-145 [facility] Comment on above: Performed By: #### 9 3685-6 ####GARRY Schmid ([id number])[facility] ([facility])[address]47 [place] [address] Gas panel (BldA)on 4 Base excess Calc (Bld) [Moles/Vol] -1.3000 mmol/L Normal -2.0-3.0 [facility] Comment on above: Performed By: #### 2 4336-0 ####GARRY Schmid ([id number])[facility] ([facility])[address] [place] [address] CO2 (Bld) [Partial pressure] 40 mm Hg Normal 38-42 [facility] Comment on above: Performed By: #### 2 4336-0 ####GARRY Schmid (41959)[facility] ([facility])[address] [place] [address] HCO3 (Bld) [Moles/Vol] 23.7 mmol/L Normal 22.0-26.0 [facility] Comment on above: Performed By: #### 2 4336-0 ####GARRY Schmid (61407)[facility] ([facility])[address] [place] [address] Inhaled oxygen concentration 50 % Normal [facility] Comment on above: Performed By: #### 2 4336-0 ####GARRY Schmid (94583)[facility] ([facility])[address]283 [place] [address] Oxygen (Bld) [Partial pressure] 215 mm Hg High 85-95 [facility] Comment on above: Performed By: #### 2 4336-0 ####GARRY Schmid (89730)[facility] ([facility])[address]42 [place] [address] Oxyhemoglobin (BldA) [Mass fraction] 97.2 % Normal 94.0-98.0 [facility] Comment on above: Performed By: #### 2 4336-0 ####GARRY Schmid ([id number])[facility] ([facility])[address]896 [place] [address] pH (Bld) 7.38 [pH] Normal 7.38-7.42 [facility] Comment on above: Performed By: #### 2 4336-0 ####GARRY Schmid (37068)[facility] ([facility])[address]20 [place] [address] Glucose Test strip manual (B ld) [Mass/Vol]on 10-11-2023 Glucose [Mass/Vol] 128 mg/dL High [address] [place] [address] Comment on above: Performed By: #### 2 341-6 ####GARRY Schmid ([id number])[facility] ([facility])[address]88 [place] [address] Glucose [Mass/Vol] 137 mg/dL High [address] [place] [address] Comment on above: Result Comment: RN/M D NOTIFIED Performed By: #### 2 341-6 ####GARRY Schmid (31099)[facility] ([facility])[address]10 [place] [address] Glucose [Mass/Vol] 139 mg/dL High [address] [place] [address] Comment on above: Performed By: #### 2 341-6 ####GARRY Schmid ([id number])[facility] ([facility])[address]95 [place] [address] Glucose [Mass/Vol] 113 mg/dL High [address] [place] [address] Comment on above: Performed By: #### 2 341-6 ####GARRY Schmid ([id number])[facility] ([facility])[address]50 [place] [address] Glucose [Mass/Vol] 111 mg/dL High [address] [place] [address] Comment on above: Performed By: #### 2 341-6 ####GARRY Schmid ([id number])[facility] ([facility])[address]90 [place] [address] Glucose [Mass/Vol] 109 mg/dL High [address] [place] [address] Comment on above: Performed By: #### 2 341-6 ####GARRY Schmid (13692)[facility] ([facility])[address]116 [place] [address] Glucose [Mass/Vol] 104 mg/dL High [address] [place] [address] Comment on above: Performed By: #### 2 341-6 ####GARRY Schmid ([id number])[facility] ([facility])[address]209 [place] [address] Glucose [Mass/Vol] 135 mg/dL High [address] [place] [address] Comment on above: Performed By: #### 2 341-6 ####GARRY Schmid ([id number])[facility] ([facility])[address]222 [place] [address] Glucose [Mass/Vol] 207 mg/dL High [address] [place] [address] Comment on above: Performed By: #### 2 341-6 ####GARRY Schmid (97543)[facility] ([facility])[address]70 [place] [address] Glucose [Mass/Vol] 251 mg/dL High [address] [place] [address] Comment on above: Performed By: #### 2 341-6 ####GARRY Schmid (75078)[facility] ([facility])[address]96 [place] [address] Glucose [Mass/Vol] 118 mg/dL High [address] [place] [address] Comment on above: Performed By: #### 2 341-6 ####GARRY Schmid ([id number])[facility] ([facility])[address] [place] [address] Hepatic function 2000 panelo n 10-11-2023 Albumin BCP dye [Mass/Vol] 2.6 g/dL Low 3.4-5.0 [facility] Comment on above: Performed By: #### 2 4325-3 ####GARRY Schmid ([id number])[facility] ([facility])[address] [place] [address] ALP [Catalytic activity/Vol] 47 U/L Normal 33-110 [facility] Comment on above: Performed By: #### 2 4325-3 ####GARRY Schmid ([id number])[facility] ([facility])[address] [place] [address] ALT With P-5'-P [Catalytic activity/Vol] 28 U/L Normal 7-45 [facility] Comment on above: Result Comment: Gianna ents treated with Sulfasalazine may generate falsely decreased results for ALT. Performed By: #### 2 4325-3 ####GARRY Schmid ([id number])[facility] ([facility])[address] [place] [address] AST With P-5'-P [Catalytic activity/Vol] 84 U/L High 9-39 [facility] Comment on above: Performed By: #### 2 4325-3 ####GARRY Schmid ([id number])[facility] ([facility])[address] [place] [address] Bilirubin [Mass/Vol] 1.0 mg/dL Normal 0.0-1.2 [facility] Comment on above: Performed By: #### 2 4325-3 ####GARRY Schmid (45573)[facility] ([facility])[address] [place] [address] Bilirubin.direct [Mass/Vol] 0.4 mg/dL High 0.0-0.3 [facility] Comment on above: Performed By: #### 2 4325-3 ####GARRY Schmid (14989)[facility] ([facility])[address]643 [place] [address] Protein [Mass/Vol] 4.1 g/dL Low 6.4-8.2 [facility] Comment on above: Performed By: #### 2 5-3 ####GARRY Schmid ([id number])[facility] ([facility])[address]047 [place] [address] Magnesiumon 10-11-2023 Magnesium [Mass/Vol] 2.03 mg/dL Normal 1.60-2.40 [facility] Comment on above: Performed By: #### 1 9123-9 ####GARRY Schmid ([id number])[facility] ([facility])[address] [place] [address] Phosphateon 10-11-2023 Phosphate [Mass/Vol] 4.4 mg/dL Normal 2.5-4.9 [facility] Comment on above: Result Comment: The performance characteristics of phosphorus testing in heparinized plasma have been validated by the individual laboratory site where testing is performed. Testing on heparinized plasma is not approved by the FDA; however, such approval is not necessary. 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]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) [K86.0, F10.929] Performed By: #### V ERAB ####GARRY Schmid ([id number])[facility] ([facility] [place] [address] D Ag Ql (Bld) Positive [facility] Comment on above: Order Comment: Pre-o p diagnosis: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 She can be reached at [phone] if you have any questions. Erin Oleary [...] Parekh and is agreeable. Erin Oleary RNCC Pool Coordinator Allergies As of Date: 10/09/2023 Noted Allergy Reaction BACTRIM (SULFAMETHOXAZOLE) 05/03/2014 2 - Rash MORPHINE 09/05/2014 14 - Other: See Comments Comments: Visual hallucinations Date Reviewed: 06/14/2022 Reviewed by: Cathy Carter, KISHA - Fully Assessed Reason for Visit: Patient Question [4347] Visit Diagnoses:Palliative care by specialist [Z51.5] Chronic [...] mouth every 6 hours as needed. - dmagre-dgbtjwuv-kvfnvfm (CREON) 36,000-114,000- 180,000 unit delayed release capsule [...] BAQSIMI 3 mg/actuation nasal spray Use 1 [place] in the nose as needed. - insulin glargine (LANTUS SOLOSTAR, BASAGLAR KWIKPEN) 100 unit/mL (3 mL) Inject 20 Units subcutaneously q 24 HR. - pantoprazole DR (PROTONIX) (more content not included)... [facility] JULIETH SPENCER ([id number]) 1985 F Date Time Provider Department 10/03/23 RAMOS PAREKH [facility] During your visit today, we recorded the following information about you: Mary Patient User Experience DeveloperTorito 10/03/2023 2:13 PM Signed Patient calling in stating [facility] has not received patients prescription for pain medication, please advise. E- [id number] [place] [address] - [address] [phone] [id number] Patient Ph.[phone] Erin Oleary RN 10/03/2023 2:25 PM Addendum Please see message below and advise. Copied from last [facility] visit note. Given that I am her prior opiate prescriber, and given that no provider assumed long-term care of my clinic patients at , will continue to prescribe her hydromorphone ER 8 mg twice daily and oxycodone 15 mg every 4 hours PRN for the time being Thank you, RYAN Snyder, [facility] Pool Coordinator Erin Oleary RN 10/03/2023 2:26 PM Signed Hydromorphone not due to renew until end of month. Oxycodone last ordered 08/30/23. Please review and advise. KISHA Snyder Laurie, RN 10/03/2023 3:44 PM Signed Please file Oxycodone order, if agreeable. RYAN Snyder Pool Coordinator Ramos Parekh MD 10/03/2023 5:22 PM Signed [...] mouth every 6 hours as needed. - hvptza-yggvacdd-zkwenvc (CREON) 36,000-114,000- 180,000 unit delayed release capsule [...] BAQSIMI 3 mg/actuation nasal spray Use 1 [place] in the nose as needed. - insulin [...] diabetes dinora (more content not included)... Normal [facility] John 10-01-2023 [facility] Telephone ([facility]) -------- JULIETH SPENCER ([id number]) 1985 F Date Time Provider Department 10/01/23 RAMOS PAREKH [facility] During your visit today, we recorded the following information about you: Mary Patient User Experience DeveloperTorito 10/01/2023 3:53 PM Addendum Called patient to schedule 6-8 week virtual follow up appt from in office appt (09/25) however, there was no answer. Left message for patient to call office. Okay to use clinic to schedule VV if needed per Dr.Warner Dominguez Patient User Experience DeveloperTorito 10/09/2023 12:48 PM Signed Called patient to schedule 6-8 week virtual follow up appt from in office appt (09/25) however, there was no answer. Left message for patient to call office. Okay to use clinic to schedule VV if needed per Dr.Warner Dominguez Patient User Experience Developer Torito 10/23/2023 9:39 AM Signed Patient called and [...] mouth every 6 hours as needed. - szjjhy-bedpxgef-xuwedja (CREON) 36,000-114,000- 180,000 unit delayed release capsule [...] BAQSIMI 3 mg/actuation nasal spray Use 1 [place] in the nose as needed. - insulin [...] (HCC) [K85.90, K8*06/14/2022 06/14/2022 Encounter Status:Closed by [facility] PATIENT SPACE SCIENCES DIRECTORTORITO on 10/01/23 Normal [facility] CT Pancreas W contrast Rodney 09-26-2023 Diffusely atrophic pancreas with punctate calcifications consistent with chronic pancreatitis. Overall no significant change from prior CT scan. MACRO: None Signed by: Ricardo Gurrola 09/26/2023 8:19 AM Dictation workstation: [id number] Ricardo Gurrola MD - 09/26/2023 Interpreted By: Ricardo Gurrola, STUDY: CT PANCREAS PRE OP EVALUATION WITH CONTRAST; 09/25/2023 3:55 pm INDICATION: Signs/Symptoms:pancreati c protocol for evaluation of pancreatitis for surgery treatment; COMPARISON: 03/08/2022 ACCESSION NUMBER(S): [id number] ORDERING CLINICIAN: TRAY BURK TECHNIQUE: Contiguous axial [...] Ricardo Gurrola 09/26/2023 8:19 AM Dictation workstation: [id number] [facility] Work Phone: CT Pancreas W contrast IVOrd ered By: Ricardo Gurrola on 09-26-2023 [facility] Work Phone: Blood type and Indirect anti body screen panel (Bld)on 09-25-2023 ABO group Nom (Bld) A Normal [facility] Comment on above: Order Comment: Pleas e send to [facility] for processing. Patient scheduled for surgery Performed By: #### 3 4532-2 ####YOLIE Vieira ()[facility] (Kik)[address] [place] [address] US Blood group antibody screen Ql Negative [facility] Comment on above: Order Comment: Pleas e send to [facility] for processing. Patient scheduled for surgery Performed By: #### 3 4532-2 ####YOLIE Vieira ()[facility] ([employer])[address] [place] [address] [place] D Ag Ql (Bld) Positive [facility] Comment on above: Order Comment: Pleas e send to [facility] for processing. Patient scheduled for surgery Performed By: #### 3 4532-2 ####YOLIE Vieira ()[facility] ([employer])[address] [place] [address] US CBC panel Auto (Bld)on 09-25 Erythrocyte distribution width (RBC) [Ratio] 13.1 % Normal 11.5-14.5 [facility] Comment on above: Performed By: #### 5 8410-2 ####YOLIE Vieira ()[facility] ()[address] [place] [address] Hematocrit (Bld) [Volume fraction] 38.4 % Normal 36.0-46.0 [facility] Comment on above: Performed By: #### 5 8410-2 ####YOLIE Vieira ()[facility] ()[address] [place] [address] Hemoglobin (Bld) [Mass/Vol] 12.2 g/dL Normal 12.0-16.0 [facility] Comment on above: Performed By: #### 5 8410-2 ####YOLIE Vieira ()[facility] ()[address] [place] [address] MCH (RBC) [Entitic mass] 30.7 pg Normal 26.0-34.0 [facility] Comment on above: Performed By: #### 5 8410-2 ####YOLIE Vieira ([id number])[facility] ()[address] [place] [address] MCHC (RBC) [Mass/Vol] 31.8 g/dL Low 32.0-36.0 [facility] Comment on above: Performed By: #### 5 8410-2 ####YOLIE Vieira ([id number])[facility] ()[address] [place] [address] MCV (RBC) [Entitic vol] 97 fL Normal 80-100 [facility] Comment on above: Performed By: #### 5 8410-2 ####YOLIE Vieira ([id number])[facility] ()[address] [place] [address] Nucleated RBC/100 WBC (Bld) [Ratio] 0.0 /100 WBCs Normal 0.0-0.0 [facility] Comment on above: Performed By: #### 5 8410-2 ####YOLIE Vieira ([id number])[facility] ()[address] [place] [address] Platelets (Bld) [#/Vol] 284 x10*3/uL Normal 150-450 [facility] Comment on above: Performed By: #### 5 8410-2 ####YOLIE Vieira ([id number])[facility] ()[address] [place] [address] RBC (Bld) [#/Vol] 3.98 x10*6/uL Low 4.00-5.20 [facility] Comment on above: Performed By: #### 5 8410-2 ####YOLIE Vieira (54975)[facility] ()[address] [place] [address] WBC (Bld) [#/Vol] 9.7 x10*3/uL Normal 4.4-11.3 [facility] Comment on above: Performed By: #### 5 8410-2 ####YOLIE Vieira ([id number])[facility] ()[address] [place] [address] CNNURSEon 09-25-2023 CNNURSE Nurse Visit (PMWIL) -------- JULIETH SPENCER ([id number]) 1985 F Date Time Provider Department 09/25/23 RAFFI SANTIAGO [facility] During your visit today, we recorded the [...] mouth every 6 hours as needed. - ihotck-zgrudzvu-qdgwvmv (CREON) 36,000-114,000- 180,000 unit delayed release capsule [...] BAQSIMI 3 mg/actuation nasal spray Use 1 [place] in the nose as needed. - insulin [...] Encounter Status:Closed by RAFFI SANTIAGO on 09/25/23 [facility] CNOVon 09-25-2023 CNOV Office Visit (PMWI ) -------- JULIETH SPENCER ([id number]) 1985 F Date Time Provider Department 09/25/23 [...] a patient from my former practice at [facility]. Subjective Patient is now scheduled for [...] wean, to which I agreed. Modified ESAS ([place] Symptom Assessment Scale) Information Provided By: Patient [...] ongoing f (more content not included)... Normal [facility] CT Pancreas W contrast Rodney 09-25-2023 Radiology Study observation (narrative) [facility] Work Phone: Comprehensive metabolic 2000 panelon 09-25-2023 Albumin [Mass/Vol] 3.9 g/dL Normal 3.5-5.0 [facility] Comment on above: Performed By: #### 2 4323-8 ####YOLIE Vieira ([id number])[facility] ()[address] [place] [address] ALP (Bld) [Catalytic activity/Vol] 98 U/L Normal 35-125 [facility] Comment on above: Performed By: #### 2 4323-8 ####YOLIE Vieira ([id number])[facility] ()[address] [place] [address] ALT [Catalytic activity/Vol] 16 U/L Normal 5-40 [facility] Comment on above: Performed By: #### 2 4323-8 ####YOLIE Vieira ([id number])[facility] ()[address] [place] [address] Anion gap [Moles/Vol] 10 mmol/L Normal <=19 [facility] Comment on above: Performed By: #### 2 4323-8 ####YOLIE Vieira ([id number])[facility] ()[address] [place] [address] AST [Catalytic activity/Vol] 33 U/L Normal 5-40 [facility] Comment on above: Performed By: #### 2 4323-8 ####YOLIE Vieira ([id number])[facility] ()[address] [place] [address] Bilirubin [Mass/Vol] mg/dL Normal 0.1-1.2 [facility] Comment on above: Performed By: #### 2 4323-8 ####YOLIE Vieira (06288)[facility] ()[address] [place] [address] Calcium [Mass/Vol] 8.6 mg/dL Normal 8.5-10.4 [facility] Comment on above: Performed By: #### 2 4323-8 ####YOLIE Vieira ([id number])[facility] ()[address] [place] [address] Chloride [Moles/Vol] 98 mmol/L Normal 97-107 [facility] Comment on above: Performed By: #### 2 4323-8 ####YOLIE Vieira (81050)[facility] ()[address] [place] [address] CO2 [Moles/Vol] 25 mmol/L Normal 24-31 [facility] Comment on above: Performed By: #### 2 4323-8 ####YOLIE Vieira (50354)[facility] ()[address] [place] [address] Creatinine [Mass/Vol] 0.70 mg/dL Normal 0.40-1.60 [facility] Comment on above: Performed By: #### 2 4323-8 ####YOLIE Vieira (71870)[facility] ()[address] [place] [address] GFR/1.73 sq M.predicted MDRD (S/P/Bld) [Vol rate/Area] mL/min/{1.73_m2} Normal >60 [facility] Comment on above: Result Comment: Calc ulations of estimated GFR are performed using the 2020 CKD-EPI Study Refit equation without the race variable for the IDMS-Traceable creatinine methods.https://jasn.asnjournals.org/content/early/ N.3834124487 Performed By: #### 2 4323-8 ####YOLIE Vieira (76668)[facility] ()[address] [place] [address] Glucose [Mass/Vol] 109 mg/dL High 65-99 [facility] Comment on above: Performed By: #### 2 4323-8 ####YOLIE Vieira (62442)[facility] ()[address] [place] [address] Potassium [Moles/Vol] 4.6 mmol/L Normal 3.4-5.1 [facility] Comment on above: Performed By: #### 2 4323-8 ####YOLIE Vieira (59267)[facility] ()[address] [place] [address] Protein [Mass/Vol] 6.5 g/dL Normal 5.9-7.9 [facility] Comment on above: Performed By: #### 2 4323-8 ####YOLIE Vieira ([id number])[facility] ()[address] [place] [address] Sodium [Moles/Vol] 133 mmol/L Normal 133-145 [facility] Comment on above: Performed By: #### 2 4323-8 ####YOLIE Vieira (21413)[facility] ()[address] [place] [address] Urea nitrogen [Mass/Vol] 16 mg/dL Normal 8-25 [facility] Comment on above: Performed By: #### 2 4323-8 ####YOLIE Vieira ([id number])[facility] ()[address] [place] [address] HbA1c (Bld) [Mass fraction]o n 09-25-2023 Average glucose Estimated from glycated hemoglobin (Bld) [Mass/Vol] 111 mg/dL Normal Not Established [facility] Comment on above: Order Comment: Diagn osis of Hjfpbbpk-OasnvgDhh-Fbosbiog: < or = 5.6%Increased risk for developing diabetes: 5.7-6.4%Diagnostic of diabetes: > or = 6.5%Monitoring of DiabetesAge (y)....................... Therapeutic Goal (%)Adults: >18.........................<7.0Pediatrics: 13-18...................<7.5Pediatrics: 7-12....................<8.0Pediatrics: 0-6..................... 7.5-8.5American Diabetes Association. Diabetes Care 33(S1)Sep 2009 Performed By: #### 4 548-4 ####YOLIE Vieira (87442)[facility] ()[address] [place] [address] Hemoglobin A1c/Hemoglobin.to viral 09-25-2023 HbA1c (Bld) [Mass fraction] 5.5 % Normal See below [facility] Comment on above: Order Comment: Diagn osis of Dsczrrnv-TverftZnz-Jihedvgh: < or = 5.6%Increased risk for developing diabetes: 5.7-6.4%Diagnostic of diabetes: > or = 6.5%Monitoring of DiabetesAge (y)....................... Therapeutic Goal (%)Adults: >18.........................<7.0Pediatrics: 13-18...................<7.5Pediatrics: 7-12....................<8.0Pediatrics: 0-6..................... 7.5-8.5American Diabetes Association. Diabetes Care 33(S1)Sep 2009 Performed By: #### 4 548-4 ####YOLIE Vieira (97725)[facility] ()[address] [place] [address] PT and aPTT panel Coag (PPP) on 09-25-2023 aPTT Coag (PPP) [Time] 26.2 s Normal 22.0-32.5 [facility] Comment on above: Order Comment: INR T herapeutic Range: 2.0-3.5 Performed By: #### 3 4529-8 ####YOLIE Vieira (21796)[facility] ()[address] [place] [address] INR Coag (PPP) [Relative time] 1.0 Normal 0.9-1.2 [facility] Comment on above: Order Comment: INR T herapeutic Range: 2.0-3.5 Performed By: #### 3 4529-8 ####YOLIE Vieira ([id number])[facility] ()[address] [place] [address] PT Coag (PPP) [Time] 10.7 s Normal 9.3-12.7 [facility] Comment on above: Order Comment: INR T herapeutic Range: 2.0-3.5 Performed By: #### 3 4529-8 ####YOLIE Vieira (02428)[facility] ()[address] [place] [address] ECG 12-LEADon 09-20-2023 ECG 12-LEAD Ventricular Rate 71 Atrial Rate 71 P-R Interval 126 QRS Duration 92 Q-T Interval 424 QTC Calculation(Bazett) 460 P Morris 50 R Morris -44 T Morris 27 QRS Count 12 Q Onset 222 P Onset 159 P Offset 200 T Offset 434 QTC Fredericia 448 Diagnosis Sinus bradycardia Left axis deviation Borderline Prolonged QT When compared with ECG of 05-NOV-2019 21:47, No significant change since Confirmed by Getachew Carreon ([id number]) on 09/23/2023 4:54:02 PM [facility] Staphylococcus aureus.methic illin resistant isolateon 09-20-2023 MRSA isol Org specific cx Ql (Nose) Normal [facility] Comment on above: Performed By: #### 5 2969-3 ####GARRY Schmid ([id number])[facility] ([facility])[address] [facility] [place] [address] Urinalysis complete W Reflex Culture panel (U)on 09-20-2023 Appearance (U) Clear Normal Clear [facility] Comment on above: Performed By: #### 5 8077-9 ####GARRY PEREZ L ([id number])[facility] ([facility])[address] [place] [address] Bilirubin (U) [Mass/Vol] Negative Normal NEGATIVE [facility] Comment on above: Performed By: #### 5 8077-9 ####GARRY Schmid ([id number])[facility] ([facility])[address] [facility] [place] [address] Color (U) Yellow Normal Straw, Yellow [facility] Comment on above: Performed By: #### 5 8077-9 ####GARRY Schmid (79825)[facility] ([facility])[address] [facility] [place] [address] Glucose Auto test strip (U) [Mass/Vol] Negative Normal NEGATIVE [facility] Comment on above: Performed By: #### 5 8077-9 ####GARRY PEREZ L (84712)[facility] ([facility])[address] [facility] [place] [address] Ketones (U) [Mass/Vol] Negative Normal NEGATIVE [facility] Comment on above: Performed By: #### 5 8077-9 ####GARRY PEREZ L ([id number])[facility] ([facility])[address] [facility] [place] [address] Leukocyte esterase Auto test strip Ql (U) Negative Normal NEGATIVE [facility] Comment on above: Performed By: #### 5 8077-9 ####GARRY PEREZ L (59804)[facility] ([facility])[address] [facility] [place] [address] Nitrite Auto test strip Ql (U) Negative Normal NEGATIVE [facility] Comment on above: Performed By: #### 5 8077-9 ####GARRY Schmid ([id number])[facility] ([facility])[address] [place] [address] pH (U) 7.0 [pH] Normal 5.0, 5.5, 6.0, 6.5, 7.0, 7.5, 8.0 [facility] Comment on above: Performed By: #### 5 8077-9 ####GARRY Schmid ([id number])[facility] ([facility])[address] [place] [address] Protein (U) [Mass/Vol] Negative Normal NEGATIVE [facility] Comment on above: Performed By: #### 5 8077-9 ####GARRY Schmid (26592)[facility] ([facility])[address] [place] [address] RBC (U) [#/Vol] Negative Normal NEGATIVE [facility] Comment on above: Performed By: #### 5 8077-9 ####GARRY Schmid (13454)[facility] ([facility])[address] [place] [address] Specific gravity (U) [Rel density] 1.021 Normal 1.005-1.035 [facility] Comment on above: Performed By: #### 5 8077-9 ####GARRY Schmid (46509)[facility] ([facility])[address] [place] [address] Urobilinogen (U) [Mass/Vol] mg/dL Normal <2.0 [facility] Comment on above: Performed By: #### 5 8077-9 ####GARRY Schmid ([id number])[facility] ([facility])[address] [place] [address] John 08-20-2023 BIA Telephone ([facility]) -------- JULIETH SPENCER ([id number]) 1985 F Date Time Provider Department 08/20/23 RAMOS PAREKH [facility] During your visit today, we recorded the following information about you: Neva Bryant 08/20/2023 9:26 AM Signed Julieth is calling stating that her hydromorphone was called into the wrong pharmacy. It needs to be called into [facility]. If you have an questions please call Julieth back at [phone].. Thank you Ramos Parekh MD 08/20/2023 10:28 [...] mouth every 6 hours as needed. - shdhsd-irfddqwz-hgaayvw (CREON) 36,000-114,000- 180,000 unit delayed release capsule [...] BAQSIMI 3 mg/actuation nasal spray Use 1 [place] in the nose as needed. - insulin [...] Status:Closed by RAMOS PAREKH on 08/20/23 Normal [facility] Telephone ([facility]) -------- JULIETH SPENCER ([id number]) 1985 F Date Time Provider Department 08/20/23 RAMOS PAREKH [facility] During your visit today, we recorded the following information about you: Angelic Prakash [facility] 08/20/2023 8:40 AM Signed [facility] received prescription(s) for hydromorphone from Dr. Ramos Parekh's office. Unfortunately, we do not carry or service non-specialty medications. If you would like the medication to be mailed to the patient by a [facility], please consider sending the Rx to [facility] (phone [phone]). Otherwise, please send the Rx to a [facility] outpatient pharmacy or patient's preferred pharmacy. Thanks, Catalina Prakash, PharmD Clinical Pharmacist, [employer] [facility] ; Pool: [facility] Pool #: [id number] Allergies As of Date: 08/20/2023 Noted Allergy Reaction BACTRIM (SULFAMETHOXAZOLE) 05/03/2014 2 - Rash MORPHINE 09/05/2014 14 - Other: See Comments Comments: Visual hallucinations Date Reviewed: 06/14/2022 Reviewed by: Cathy Carter, KISHA - Fully Assessed Prescriptions as of 08/20/2023 [...] mouth every 6 hours as needed. - zwwumo-qqhkilfw-xeuxgxb (CREON) 36,000-114,000- 180,000 unit delayed release capsule [...] BAQSIMI 3 mg/actuation nasal spray Use 1 [place] in the nose as needed. - insulin [...] Encounter Status:Closed by ANGELIC PRAKASH on 08/20/23 [facility] John 08-19-2023 [facility] Telephone ([facility]) -------- JULIETH SPENCER ([id number]) 1985 F Date Time Provider Department 08/19/23 RAMOS PAREKH [facility] During your visit today, we recorded the following information about you: Mary Patient User Experience DeveloperTorito 08/19/2023 8:19 AM Signed Patient called in, [...] mouth every 6 hours as needed. - htgsil-omdzsuvy-imgunpa (CREON) 36,000-114,000- 180,000 unit delayed release capsule [...] BAQSIMI 3 mg/actuation nasal spray Use 1 [place] in the nose as needed. - insulin [...] K8*06/14/2022 06/14/2022 Encounter Status:Closed by MARY PATIENT SPACE SCIENCES DIRECTORTORITO on 08/19/23 [facility] John 07-24-2023 MARGARETN Telephone (PAINLN) -------- JULIETH SPENCER ([id number]) 1985 F Date Time Provider Department 07/24/23 MATT BOND During your visit today, we recorded the following information about you: Kendra Hatch MA 07/26/2023 1:43 PM Addendum Patient was advised of the following: This is a follow up phone call regarding your appointment with Dr Bond, which you are scheduled to see at [facility] on 07/25/2023. 1) Have you [...] need to reschedule please call us at [phone]. Left VM with new patient policy advised [...] mouth every 6 hours as needed. - scbjth-uvkalmrr-zxykmmo (CREON) 36,000-114,000- 180,000 unit delayed release capsule [...] BAQSIMI 3 mg/actuation nasal spray Use 1 [place] in the nose as needed. - insulin [...] Status:Closed by KENDRA HATCH on 07/26/23 Normal [facility] metabolic 2000 panelon 07-22-2023 Albumin BCP dye [Mass/Vol] 4.1 g/dL Normal 3.4-5.0 [facility] Comment on above: Performed By: #### 2 4323-8 ####YOLIE Mcclellan ([id number])[facility] ([facility])[address] [place] [address] ALP [Catalytic activity/Vol] 91 U/L Normal 33-110 [facility] Comment on above: Performed By: #### 2 4323-8 ####YOLIE Mcclellan ([id number])[facility] ([facility])[address] [place] [address] ALT With P-5'-P [Catalytic activity/Vol] 17 U/L Normal 7-45 [facility] Comment on above: Result Comment: Gianna ents treated with Sulfasalazine may generate falsely decreased results for ALT. Performed By: #### 2 4323-8 ####YOLIE Mcclellan ([id number])[facility] (C)[address] [facility] [place] [address] Anion gap [Moles/Vol] 13 mmol/L Normal 10-20 [facility] Comment on above: Performed By: #### 2 4323-8 ####YOLIE Mcclellan ([id number])[facility] ([facility])[address] [facility] [place] [address] AST With P-5'-P [Catalytic activity/Vol] 20 U/L Normal 9-39 [facility] Comment on above: Performed By: #### 2 4323-8 ####YOLIE Mcclellan ([id number])[facility] ([facility])[address] [place] [address] Bilirubin [Mass/Vol] 0.3 mg/dL Normal 0.0-1.2 [facility] Comment on above: Performed By: #### 2 4323-8 ####YOLEI Mcclellan ([id number])[facility] ([facility])[address] [place] [address] Calcium [Mass/Vol] 9.1 mg/dL Normal 8.6-10.3 [facility] Comment on above: Performed By: #### 2 4323-8 ####YOLIE Mcclellan ([id number])[facility] ([facility])[address] [place] [address] Chloride [Moles/Vol] 99 mmol/L Normal 98-107 [facility] Comment on above: Performed By: #### 2 4323-8 ####YOLIE Mcclellan ([id number])[facility] ([facility])[address] [place] [address] CO2 [Moles/Vol] 31 mmol/L Normal 21-32 [facility] Comment on above: Performed By: #### 2 4323-8 ####YOLIE Mcclellan ([id number])[facility] ([facility])[address] [place] [address] Creatinine [Mass/Vol] 0.80 mg/dL Normal 0.50-1.05 [facility] Comment on above: Performed By: #### 2 4323-8 ####YOLIE Mcclellan ([id number])[facility] ([facility])[address] [place] [address] GFR/1.73 sq M.predicted MDRD (S/P/Bld) [Vol rate/Area] mL/min/{1.73_m2} Normal >60 [facility] Comment on above: Result Comment: Calc ulations of estimated GFR are performed using the 2020 CKD-EPI Study Refit equation without the race variable for the IDMS-Traceable creatinine methods.https://jasn.asnjournals.org/content// N.2669118998 Performed By: #### 2 4323-8 ####YOLIE Mcclellan ([id number])[facility] ([facility])[address] [facility] [place] [address] Glucose [Mass/Vol] 138 mg/dL High 74-99 [facility] Comment on above: Performed By: #### 2 4323-8 ####YOLIE Mcclellan ([id number])[facility] ([facility])[address] [facility] [place] [address] Potassium [Moles/Vol] 4.8 mmol/L Normal 3.5-5.3 [facility] Comment on above: Performed By: #### 2 4323-8 ####YOLIE Mcclellan ([id number])[facility] ([facility])[address] [place] [address] Protein [Mass/Vol] 7.3 g/dL Normal 6.4-8.2 [facility] Comment on above: Performed By: #### 2 4323-8 ####YOLIE Mcclellan ([id number])[facility] ([facility])[address] [facility] [place] [address] Sodium [Moles/Vol] 138 mmol/L Normal 136-145 [facility] Comment on above: Performed By: #### 2 4323-8 ####YOLIE Mcclellan ([id number])[facility] ([facility])[address] [facility] [place] [address] Urea nitrogen [Mass/Vol] 12 mg/dL Normal 6-23 [facility] Comment on above: Performed By: #### 2 4323-8 ####YOLIE Mcclellan ([id number])[facility] (EM)[address] [facility] [place] [address] Prealbuminon 07-22-2023 Prealbumin [Mass/Vol] 31.6 mg/dL Normal 18.0-40.0 [facility] Comment on above: Performed By: #### 1 4338-8 ####GARRY Schmid ([id number])[facility] ([facility])[address] [place] [address] Basic Metabolic Panelon 11-0 Anion gap [Moles/Vol] 9.4 mmol/L Normal 6.0-15.0 [facility] Comment on above: Performed By: #### B MP #### [facility] [address] Calcium [Mass/Vol] 8.8 mg/dL Normal 8.6-10.3 [facility] Comment on above: Performed By: #### B MP #### [facility] [address] Chloride [Moles/Vol] 101 mmol/L Normal 98-107 [facility] Comment on above: Performed By: #### B MP #### [facility] [address] CO2 [Moles/Vol] 32.3 mmol/L High 21.0-31.0 [facility] Comment on above: Performed By: #### B MP #### [facility] [address] Creatinine [Mass/Vol] 0.54 mg/dL Low 0.60-1.20 [facility] Comment on above: Performed By: #### B MP #### [facility] [address] [place] [address] [place] Creatinine Clr Calc Pharmacy 120.29 [facility] Comment on above: Result Comment: PERF ORMED BY: [place] [address] PATHOLOGIST [employer] MAKER DARELL FIORE M.D. Performed By: #### B MP #### [place] [address] [place] GFR/1.73 sq M.predicted MDRD (S/P/Bld) [Vol rate/Area] mL/min/{1.73_m2} [facility] Comment on above: Performed By: #### B MP #### [place] [address] [place] Glucose [Mass/Vol] 178 mg/dL High 70-100 [facility] Comment on above: Result Comment: [place] Glucose Reference Range is dependent on time and content of last meal. Glucose of more than 200 mg/dL in a nonstressed, ambulatory subject supports the diagnosis of Diabetes Mellitus. ADA recommended reference range Performed By: #### B MP #### [facility] [address] Potassium [Moles/Vol] 3.7 mmol/L Normal 3.5-5.1 [facility] Comment on above: Performed By: #### B MP #### [facility] [address] Sodium [Moles/Vol] 139 mmol/L Normal 136-145 [facility] Comment on above: Performed By: #### B MP #### [facility] [address] Urea nitrogen [Mass/Vol] 4 mg/dL Low 7-25 [facility] Comment on above: Performed By: #### B MP #### [facility] [address] Calcium [Mass/volume] in Ser um or PlasmaOrdered By: Allen SolBorges on 07-20-2023 Calcium [Mass/Vol] 8.8 mg/dL 8.6-10.3 [facility] Carbon dioxide, total [Moles /volume] in Serum or PlasmaOrdered By: Allen SolBorges on 07-20-2023 CO2 [Moles/Vol] 32.3 mmol/L 21.0-31.0 [facility] Chloride [Moles/volume] in S ty or PlasmaOrdered By: Allen SolBorges on 07-20-2023 Chloride [Moles/Vol] 101 mmol/L 98-107 [facility] Creatinine [Mass/volume] in Serum or PlasmaOrdered By: Allen Borges on 07-20-2023 Creatinine [Mass/Vol] 0.54 mg/dL 0.60-1.20 [facility] Glucose Glucometer (BldC) [M ass/Vol]Ordered By: Allen Borges on 07-20-2023 Glucose [Mass/Vol] 179 mg/dL [facility] Comment on above: Random Glucose Refer ence Range is dependent on time and content of last meal. Glucose of more than 200 mg/dL in a nonstressed, ambulatory subject supports the diagnosis of Diabetes Mellitus. Glucose Poct Glucometerson 1 09-19-2022 Commemt1 Glu2: Cleaned Meter [facility] Comment on above: Result Comment: PERF ORMED BY: [place] [address] PATHOLOGIST [employer] MAKER DARELL FIORE M.D. Performed By: #### G LULS #### Point of Care testing , Glucose [Mass/Vol] 179 mg/dL Normal [facility] Comment on above: Result Comment: [place] om Glucose Reference Range is dependent on time and content of last meal. Glucose of more than 200 mg/dL in a nonstressed, ambulatory subject supports the diagnosis of Diabetes Mellitus. Performed By: #### G LUDINH #### Point of Care testing , Commemt1 Glu2: Cleaned Meter [facility] Comment on above: Result Comment: PERF ORMED BY: [place] [address] PATHOLOGIST [employer] MAKER DARELL FIORE M.D. Performed By: #### B MP #### [facility] [address] [place] [address] Glucose [Mass/Vol] 139 mg/dL Normal [facility] Comment on above: Result Comment: [place] om Glucose Reference Range is dependent on time and content of last meal. Glucose of more than 200 mg/dL in a nonstressed, ambulatory subject supports the diagnosis of Diabetes Mellitus. Performed By: #### B MP #### [facility] [address] [place] [address] [place] Glucose [Mass/volume] in Ser um or PlasmaOrdered By: Allen Borges on 07-20-2023 Glucose [Mass/Vol] 178 mg/dL 70-100 [facility] Comment on above: ADA recommended refe rence rangeRandom Glucose Reference Range is dependent on time and content of last meal. Glucose of more than 200 mg/dL in a nonstressed, ambulatory subject supports the diagnosis of Diabetes Mellitus. No Panel InformationOrdered By: Allen Borges on 07-20-2023 Bedside Glucose Comment Glu2: cleaned meter [facility] Estimated GFR (CKD-EPI) > 60.0 mL/Min [facility] Creatinine Clearance (Chem 120.29 [facility] Potassium [Moles/volume] in Serum or PlasmaOrdered By: Allen Kingston on 07-20-2023 Potassium [Moles/Vol] 3.7 mmol/L 3.5-5.1 [facility] Serum or plasma anion gap de terminationOrdered By: Allen Kingston on 07-20-2023 Anion gap [Moles/Vol] 9.4 mmol/L 6.0-15.0 [facility] Sodium [Moles/volume] in Ser um or PlasmaOrdered By: [facility] on 07-20-2023 Sodium [Moles/Vol] 139 mmol/L 136-145 [facility] Urea nitrogen [Mass/volume] in Serum or PlasmaOrdered By: Allen Kingston on 07-20-2023 Urea nitrogen [Mass/Vol] 4 mg/dL 7-25 [facility] Basic Metabolic Panelon 11-0 Anion gap [Moles/Vol] Not performed Normal 6.0-15.0 [facility] Comment on above: Order Comment: FIRST SPECIMEN HEMOLYZED Performed By: #### B MP #### [facility] [address] [place] [address] [place] Calcium [Mass/Vol] 8.7 mg/dL Normal 8.6-10.3 [facility] Comment on above: Order Comment: FIRST SPECIMEN HEMOLYZED Performed By: #### B MP #### [facility] [address] [place] [id number] [place] Chloride [Moles/Vol] 103 mmol/L Normal 98-107 [facility] Comment on above: Order Comment: FIRST SPECIMEN HEMOLYZED Performed By: #### B MP #### [facility] [address] [place] [id number] [place] CO2 [Moles/Vol] 27.8 mmol/L Normal 21.0-31.0 [facility] Comment on above: Order Comment: FIRST SPECIMEN HEMOLYZED Performed By: #### B MP #### [facility] [address] Creatinine [Mass/Vol] 0.70 mg/dL Normal 0.60-1.20 [facility] Comment on above: Order Comment: FIRST SPECIMEN HEMOLYZED Performed By: #### B MP #### [facility] [address] [place] [address] [place] Creatinine Clr Calc Pharmacy 92.[address] [facility] Comment on above: Order Comment: FIRST SPECIMEN HEMOLYZED Result Comment: PERF ORMED BY: [place] [address] PATHOLOGIST [employer] MAKER DARELL FIORE M.D. Performed By: #### B MP #### [address] GFR/1.73 sq M.predicted MDRD (S/P/Bld) [Vol rate/Area] mL/min/{1.73_m2} [facility] Comment on above: Order Comment: FIRST SPECIMEN HEMOLYZED Performed By: #### B MP #### [place] [address] [place] Glucose [Mass/Vol] 148 mg/dL High 70-100 [facility] Comment on above: Order Comment: FIRST SPECIMEN HEMOLYZED Result Comment: [place] Glucose Reference Range is dependent on time and content of last meal. Glucose of more than 200 mg/dL in a nonstressed, ambulatory subject supports the diagnosis of Diabetes Mellitus. ADA recommended reference range Performed By: #### B MP #### [place] [address] [place] Potassium Normal 3.5-5.1 [facility] Comment on above: Order Comment: FIRST SPECIMEN HEMOLYZED Result Comment: Spec imen hemolyzed, redraw requested Performed By: #### B MP #### [place] [address] [place] Sodium [Moles/Vol] 139 mmol/L Normal 136-145 [facility] Comment on above: Order Comment: FIRST SPECIMEN HEMOLYZED Performed By: #### B MP #### [facility] [address] Urea nitrogen [Mass/Vol] 4 mg/dL Low 7-25 [facility] Comment on above: Order Comment: FIRST SPECIMEN HEMOLYZED Performed By: #### B MP #### [facility] [address] Glucose Poct Glucometerson 1 09-18-2022 Glucose [Mass/Vol] 176 mg/dL Normal [facility] Comment on above: Result Comment: [place] om Glucose Reference Range is dependent on time and content of last meal. Glucose of more than 200 mg/dL in a nonstressed, ambulatory subject supports the diagnosis of Diabetes Mellitus. PERFORMED BY: [place] [address] PATHOLOGIST [employer] MAKER DARELL FIORE M.D. Performed By: #### B MP #### [address] Glucose [Mass/Vol] 175 mg/dL Normal [facility] Comment on above: Result Comment: [place] om Glucose Reference Range is dependent on time and content of last meal. Glucose of more than 200 mg/dL in a nonstressed, ambulatory subject supports the diagnosis of Diabetes Mellitus. PERFORMED BY: [place] [address] PATHOLOGIST [employer] MAKER DARELL FIORE M.D. Performed By: #### G LULS #### Point of Care testing , Commemt1 Glu2: Cleaned Meter Normal [facility] Comment on above: Result Comment: PERF ORMED BY: [place] [address] PATHOLOGIST MET[employer] MAKER DARELL FIORE M.D. Performed By: #### B MP #### [address] Glucose [Mass/Vol] 93 mg/dL Normal [facility] Comment on above: Result Comment: [place] om Glucose Reference Range is dependent on time and content of last meal. Glucose of more than 200 mg/dL in a nonstressed, ambulatory subject supports the diagnosis of Diabetes Mellitus. Performed By: #### B MP #### [facility] [address] Glucose [Mass/Vol] 179 mg/dL Normal [facility] Comment on above: Result Comment: [facility] Glucose Reference Range is dependent on time and content of last meal. Glucose of more than 200 mg/dL in a nonstressed, ambulatory subject supports the diagnosis of Diabetes Mellitus. PERFORMED BY: [place] [address] PATHOLOGIST MET[employer]OX MAKER DARELL FIORE M.D. Performed By: #### G LULS #### Point of Care testing , Redraw Potassiumon 3 Potassium [Moles/Vol] 3.6 mmol/L Normal 3.5-5.1 [facility] Comment on above: Order Comment: Speci men hemolyzed X2, redraw requested Result Comment: PERF ORMED BY: [place] [address] PATHOLOGIST MET[employer] MAKER DARELL FIORE M.D. Performed By: #### G LULS #### Point of Care testing , Basic Metabolic Panelon Anion gap [Moles/Vol] 10.1 mmol/L Normal 6.0-15.0 [facility] Comment on above: Performed By: #### B MP #### [facility] [address] [place] [address] [place] Calcium [Mass/Vol] 8.2 mg/dL Low 8.6-10.3 [facility] Comment on above: Performed By: #### B MP #### [facility] [address] [place] [address] [place] Chloride [Moles/Vol] 103 mmol/L Normal 98-107 [facility] Comment on above: Performed By: #### B MP #### [facility] [address] [place] [address] [place] CO2 [Moles/Vol] 26.3 mmol/L Normal 21.0-31.0 [facility] Comment on above: Performed By: #### B MP #### [facility] [address] Creatinine [Mass/Vol] 0.58 mg/dL Low 0.60-1.20 [facility] Comment on above: Performed By: #### B MP #### [facility] [address] [place] [address] [place] Creatinine Clr Calc Pharmacy 111.99 [facility] Comment on above: Result Comment: PERF ORMED BY: [place] [address] PATHOLOGIST MET[employer] MAKER DARELL FIORE M.D. Performed By: #### B MP #### [place] [address] [place] GFR/1.73 sq M.predicted MDRD (S/P/Bld) [Vol rate/Area] mL/min/{1.73_m2} [facility] Comment on above: Performed By: #### B MP #### [address] Glucose [Mass/Vol] 153 mg/dL High 70-100 [facility] Comment on above: Result Comment: [place] Glucose Reference Range is dependent on time and content of last meal. Glucose of more than 200 mg/dL in a nonstressed, ambulatory subject supports the diagnosis of Diabetes Mellitus. ADA recommended reference range Performed By: #### B MP #### [place] [address] [place] Potassium [Moles/Vol] 3.4 mmol/L Low 3.5-5.1 [facility] Comment on above: Performed By: #### B MP #### [place] [address] [place] Sodium [Moles/Vol] 136 mmol/L Normal 136-145 [facility] Comment on above: Performed By: #### B MP #### [place] [address] [place] Urea nitrogen [Mass/Vol] 2 mg/dL Low 7-25 [facility] Comment on above: Performed By: #### B MP #### [facility] [address] Glucose Poct Glucometerson 1 09-17-2022 Glucose [Mass/Vol] 134 mg/dL Normal [facility] Comment on above: Result Comment: [place] om Glucose Reference Range is dependent on time and content of last meal. Glucose of more than 200 mg/dL in a nonstressed, ambulatory subject supports the diagnosis of Diabetes Mellitus. PERFORMED BY: [place] [address] PATHOLOGIST METAL [employer]OX MAKER DARELL FIORE M.D. Performed By: #### G LULS #### Point of Care testing , Glucose [Mass/Vol] 125 mg/dL Normal [facility] Comment on above: Result Comment: [place] om Glucose Reference Range is dependent on time and content of last meal. Glucose of more than 200 mg/dL in a nonstressed, ambulatory subject supports the diagnosis of Diabetes Mellitus. PERFORMED BY: [place] [address] PATHOLOGIST METAL BOX MAKER DARELL FIORE M.D. Performed By: #### B MP #### [facility] [address] [place] [address] Commemt1 Glu2: Cleaned Meter [facility] Comment on above: Result Comment: PERF ORMED BY: [place] [address] PATHOLOGIST METAL [employer]OX MAKER DARELL FIORE M.D. Performed By: #### G LULS #### Point of Care testing , Glucose [Mass/Vol] 104 mg/dL Normal [facility] Comment on above: Result Comment: [place] om Glucose Reference Range is dependent on time and content of last meal. Glucose of more than 200 mg/dL in a nonstressed, ambulatory subject supports the diagnosis of Diabetes Mellitus. Performed By: #### G LULS #### Point of Care testing , Commemt1 Glu2: Cleaned Meter [facility] Comment on above: Result Comment: PERF ORMED BY: [address] [place] [address] PATHOLOGIST MET[employer] MAKER DARELL FIORE M.D. Performed By: #### B MP #### [facility] [address] Glucose [Mass/Vol] 144 mg/dL Normal [facility] Comment on above: Result Comment: [place] om Glucose Reference Range is dependent on time and content of last meal. Glucose of more than 200 mg/dL in a nonstressed, ambulatory subject supports the diagnosis of Diabetes Mellitus. Performed By: #### B MP #### [facility] [address] [place] [address] Glucose [Mass/Vol] 126 mg/dL Normal [facility] Comment on above: Result Comment: [place] om Glucose Reference Range is dependent on time and content of last meal. Glucose of more than 200 mg/dL in a nonstressed, ambulatory subject supports the diagnosis of Diabetes Mellitus. PERFORMED BY: [place] [address] PATHOLOGIST METAL [employer] MAKER DARELL FIORE M.D. Performed By: #### G LULS #### Point of Care testing , Glucose Poct Glucometerson 09-16-2022 Glucose [Mass/Vol] 99 mg/dL Normal [facility] Comment on above: Result Comment: [place] om Glucose Reference Range is dependent on time and content of last meal. Glucose of more than 200 mg/dL in a nonstressed, ambulatory subject supports the diagnosis of Diabetes Mellitus. PERFORMED BY: [place] [address] PATHOLOGIST METAL [employer] MAKER DARELL FIORE M.D. Performed By: #### G LULS #### Point of Care testing , Glucose [Mass/Vol] 106 mg/dL Normal [facility] Comment on above: Result Comment: [place] om Glucose Reference Range is dependent on time and content of last meal. Glucose of more than 200 mg/dL in a nonstressed, ambulatory subject supports the diagnosis of Diabetes Mellitus. PERFORMED BY: [place] [id number] PATHOLOGIST MET[employer] MAKER DARELL FIORE M.D. Performed By: #### G LULS #### Point of Care testing , Glucose [Mass/Vol] 127 mg/dL Normal [facility] Comment on above: Result Comment: Formerly named [facility] Glucose Reference Range is dependent on time and content of last meal. Glucose of more than 200 mg/dL in a nonstressed, ambulatory subject supports the diagnosis of Diabetes Mellitus. PERFORMED BY: [place] [address] PATHOLOGIST METAL [employer]OX MAKER DARELL FIORE M.D. Performed By: #### G LULS #### Point of Care testing , A1C with Estimated Average Gabo torrez 07-16-2023 Glucose [Mass/Vol] 120 mg/dL Normal [facility] Comment on above: Result Comment: PERF ORMED BY: [place] [address] PATHOLOGIST METAL [employer]OX MAKER DARELL FIORE M.D. Performed By: #### A 1C [facility] eA #### [address] HbA1c (Bld) [Mass fraction] 5.8 % High 4.3-5.6 [facility] Comment on above: Result Comment: Incr eased risk for diabetes: 5.7 - 6.4 diabetes: >6.4 glycemic control for adults with diabetes: <7.0 Performed By: #### A 1C WT eA #### [facility] [address] [place] [address] Basic Metabolic Panelon 10-3 Anion gap [Moles/Vol] 10.9 mmol/L Normal 6.0-15.0 [facility] Comment on above: Performed By: #### G LULS #### Point of Care testing , Calcium [Mass/Vol] 8.8 mg/dL Normal 8.6-10.3 [facility] Comment on above: Performed By: #### G LULS #### Point of Care testing , Chloride [Moles/Vol] 104 mmol/L Normal 98-107 [facility] Comment on above: Performed By: #### G ROSLYNLS #### Point of Care testing , CO2 [Moles/Vol] 24.0 mmol/L Normal 21.0-31.0 [facility] Comment on above: Performed By: #### G ROSLYNLS #### Point of Care testing , Creatinine [Mass/Vol] 0.54 mg/dL Low 0.60-1.20 [facility] Comment on above: Performed By: #### G ROSLYNLS #### Point of Care testing , Creatinine Clr Calc Pharmacy 119.14 [facility] Comment on above: Performed By: #### G ROSLYNLS #### Point of Care testing , GFR/1.73 sq M.predicted MDRD (S/P/Bld) [Vol rate/Area] mL/min/{1.73_m2} [facility] Comment on above: Performed By: #### G ROSLYNLS #### Point of Care testing , Glucose [Mass/Vol] 95 mg/dL Normal 70-100 [facility] Comment on above: Result Comment: Formerly named [facility] Glucose Reference Range is dependent on time and content of last meal. Glucose of more than 200 mg/dL in a nonstressed, ambulatory subject supports the diagnosis of Diabetes Mellitus. ADA recommended reference range Performed By: #### G ROSLYNLS #### Point of Care testing , Potassium [Moles/Vol] 3.9 mmol/L Normal 3.5-5.1 [facility] Comment on above: Performed By: #### G ROSLYNLS #### Point of Care testing , Sodium [Moles/Vol] 135 mmol/L Low 136-145 [facility] Comment on above: Performed By: #### G ROSLYNLS #### Point of Care testing , Urea nitrogen [Mass/Vol] 10 mg/dL Normal 7-25 [facility] Comment on above: Performed By: #### G ROSLYNLS #### Point of Care testing , CT abdomen pelvis w brice CT abdomen pelvis w [facility] Main [address] [address] [address] Scan Report Signed Patient: Julieth Spencer MR#: [id number] : 1985 Acct:[id number] Age/Sex: 37 / F ADM Date: 07/16/23 Loc: 4N Room: 7I3153-8 Type: ADM IN Attending Dr: Allen Borges [...] suggested. Impression dictated by: Jeff Good Jr., Christina.OAlia07/16/2023 9:31 AM Dictation Location: [place] [address] Transcribed By: [place] 07/16/23930 Dictated By: Jeff Good Jr, DO 07/16/23925 Signed By: 07/16/23930 [facility] Complete Blood Count Auto Di ffon 07-16-2023 Basophils (Bld) [#/Vol] 0.1 10*3/uL Normal 0.0-0.2 [facility] Comment on above: Result Comment: PERF ORMED BY: [place] [address] PATHOLOGIST [employer] DARELL FIORE M.D. Performed By: #### G LULS #### Point of Care testing , Basophils/100 WBC (Bld) 0.7 % Normal . [facility] Comment on above: Performed By: #### G LULS #### Point of Care testing , Eosinophils (Bld) [#/Vol] 0.1 10*3/uL Normal 0.0-0.45 [facility] Comment on above: Performed By: #### G LULS #### Point of Care testing , Eosinophils/100 WBC (Bld) 1.0 % Normal . [facility] Comment on above: Performed By: #### G LULS #### Point of Care testing , Erythrocyte distribution width (RBC) [Ratio] 14.2 % Normal 11.9-15.3 [facility] Comment on above: Performed By: #### G LULS #### Point of Care testing , Hematocrit (Bld) [Volume fraction] 35.1 % Normal 34.0-46.4 [facility] Comment on above: Performed By: #### G LULS #### Point of Care testing , Hemoglobin (Bld) [Mass/Vol] 11.9 g/dL Normal 11.8-15.4 [facility] Comment on above: Performed By: #### G LULS #### Point of Care testing , Lymphocytes (Bld) [#/Vol] 2.7 10*3/uL Normal 1.00-4.8 [facility] Comment on above: Performed By: #### G LULS #### Point of Care testing , Lymphocytes/100 WBC (Bld) 34.4 % Normal . [facility] Comment on above: Performed By: #### G LULS #### Point of Care testing , MCH (RBC) [Entitic mass] 31.9 pg Normal 24.7-34.3 [facility] Comment on above: Performed By: #### G LULS #### Point of Care testing , MCV (RBC) [Entitic vol] 93.7 fL Normal 80-100 [facility] Comment on above: Performed By: #### G LULS #### Point of Care testing , Mean Corpuscular HGB Conc 34.0 g/dL Normal 32.0-35.0 [facility] Comment on above: Performed By: #### G LULS #### Point of Care testing , Monocytes (Bld) [#/Vol] 0.4 10*3/uL Normal 0.0-0.8 [facility] Comment on above: Performed By: #### G LULS #### Point of Care testing , Monocytes/100 WBC (Bld) 21.41 % High 0.00-20.00 [facility] Comment on above: Result Comment: For adults in ED, MDW > 20.0 may be associated with a higher risk of sepsis during the first 12 hrs of hospital admission Performed By: #### G LULS #### Point of Care testing , Monocytes/100 WBC (Bld) 5.3 % Normal . [facility] Comment on above: Performed By: #### G LULS #### Point of Care testing , Neutrophils (Bld) [#/Vol] 4.6 10*3/uL Normal 1.8-7.7 [facility] Comment on above: Performed By: #### G LULS #### Point of Care testing , Neutrophils/100 WBC (Bld) 58.6 % Normal . [facility] Comment on above: Performed By: #### G LULS #### Point of Care testing , NRBC% 0.1 /100{WBC} Normal 0-0.5 [facility] Comment on above: Performed By: #### G LULS #### Point of Care testing , Platelet mean volume (Bld) [Entitic vol] 7.9 fL Normal 6.3-10.7 [facility] Comment on above: Performed By: #### G LULS #### Point of Care testing , Platelets (Bld) [#/Vol] 225 10*3/uL Normal 150-450 [facility] Comment on above: Performed By: #### G LULS #### Point of Care testing , RBC (Bld) [#/Vol] 3.74 10*6/uL Normal 3.60-5.00 [facility] Comment on above: Performed By: #### G LULS #### Point of Care testing , WBC (Bld) [#/Vol] 7.8 10*3/uL Normal 3.8-11.6 [facility] Comment on above: Performed By: #### G LULS #### Point of Care testing , Glucose Poct Glucometerson 1 Glucose [Mass/Vol] 126 mg/dL Normal [facility] Comment on above: Result Comment: Formerly named [facility] Glucose Reference Range is dependent on time and content of last meal. Glucose of more than 200 mg/dL in a nonstressed, ambulatory subject supports the diagnosis of Diabetes Mellitus. PERFORMED BY: [facility] [address] [facility] [place] [address] PATHOLOGIST [employer] DARELL FIORE M.D. Performed By: #### G LULS #### Point of Care testing , Glucose [Mass/Vol] 196 mg/dL Normal [facility] Comment on above: Result Comment: Formerly named [facility] Glucose Reference Range is dependent on time and content of last meal. Glucose of more than 200 mg/dL in a nonstressed, ambulatory subject supports the diagnosis of Diabetes Mellitus. PERFORMED BY: [facility] [address] [facility] [place] [address] PATHOLOGIST [employer] DARELL FIORE M.D. Performed By: #### G LULS #### Point of Care testing , Glucose [Mass/Vol] 117 mg/dL Normal [facility] Comment on above: Result Comment: Formerly named [facility] Glucose Reference Range is dependent on time and content of last meal. Glucose of more than 200 mg/dL in a nonstressed, ambulatory subject supports the diagnosis of Diabetes Mellitus. PERFORMED BY: [place] [address] PATHOLOGIST [employer] DARELL FIORE M.D. Performed By: #### B MP #### [facility] [address] [place] [id number] [facility] Glucose [Mass/Vol] 123 mg/dL Normal [facility] Comment on above: Result Comment: [place] Glucose Reference Range is dependent on time and content of last meal. Glucose of more than 200 mg/dL in a nonstressed, ambulatory subject supports the diagnosis of Diabetes Mellitus. PERFORMED BY: [place] [address] PATHOLOGIST [employer] DARELL FIORE M.D. Performed By: #### B MP #### [address] [address] [facility] Glucose mean value [Mass/vol ume] in Blood Estimated from glycated hemoglobinOrdered By: Gini Harper on 07-16-2023 Average glucose Estimated from glycated hemoglobin (Bld) [Mass/Vol] 120 mg/dL [facility] Hemoglobin A1c percentageOrd ered By: Gini Harper on 07-16-2023 HbA1c (Bld) [Mass fraction] 5.8 % 4.3-5.6 [facility] Comment on above: Increased risk for d iabetes: 5.7 - 6.4diabetes: >6.4glycemic control for adults with diabetes: <7.0 Hepatic Panelon 07-16-2023 Albumin [Mass/Vol] 3.9 g/dL Normal 3.5-5.7 [facility] Comment on above: Performed By: #### G LULS #### Point of Care testing , Albumin/Globulin [Mass ratio] 1.2 {ratio} Normal [facility] Comment on above: Performed By: #### G LULS #### Point of Care testing , ALP [Catalytic activity/Vol] 88 U/L Normal 34-104 [facility] Comment on above: Performed By: #### G LULS #### Point of Care testing , ALT [Catalytic activity/Vol] 21 U/L Normal 7-52 [facility] Comment on above: Performed By: #### G LULS #### Point of Care testing , AST [Catalytic activity/Vol] 17 U/L Normal 13-39 [facility] Comment on above: Performed By: #### G ROSLYNLS #### Point of Care testing , Bilirubin [Mass/Vol] 0.5 mg/dL Normal 0.3-1.0 [facility] Comment on above: Performed By: #### G ROSLYNLS #### Point of Care testing , Bilirubin,Indirect 0.4 mg/dL Normal [facility] Comment on above: Performed By: #### G ROSLYNLS #### Point of Care testing , Bilirubin.indirect [Mass/Vol] 0.10 mg/dL Normal 0.03-0.18 [facility] Comment on above: Performed By: #### G LULS #### Point of Care testing , Globulin (S) [Mass/Vol] 3.3 g/dL Normal [facility] Comment on above: Performed By: #### G ROSLYNLS #### Point of Care testing , Protein [Mass/Vol] 7.2 g/dL Normal 6.4-8.9 [facility] Comment on above: Performed By: #### G ROSLYNLS #### Point of Care testing , Lipaseon 07-16-2023 Lipase [Catalytic activity/Vol] 4.0 U/L Low 11.0-82.0 [facility] Comment on above: Result Comment: PERF ORMED BY: [facility] [address] [place] [address] PATHOLOGIST [employer] DARELL FIORE M.D. Performed By: #### G LULS #### Point of Care testing , Alanine aminotransferase [En zymatic activity/volume] in Serum or PlasmaOrdered By: Troy Haile on 07-15-2023 ALT [Catalytic activity/Vol] 21 U/L 7-52 [facility] Albumin [Mass/volume] in Ser um or Plasma by Bromocresol green (BCG) dye binding methoOrdered By: Troy Haile on 07-15-2023 Albumin BCG dye [Mass/Vol] 3.9 g/dL 3.5-5.7 [facility] Alkaline phosphatase [Enzyma tic activity/volume] in Serum or PlasmaOrdered By: Troy Haile on 07-15-2023 ALP [Catalytic activity/Vol] 88 U/L 34-104 [facility] Aspartate aminotransferase [ Enzymatic activity/volume] in Serum or PlasmaOrdered By: Troy Haile on 07-15-2023 AST [Catalytic activity/Vol] 17 U/L 13-39 [facility] Automated erythrocytes count in urine sediment (number/area)Ordered By: Troy Haile on 07-15-2023 RBC Auto (Urine sed) [#/Area] 3-4 [HPF] 0-4 [facility] Automated leukocytes count i n urine sediment (number/area)Ordered By: Troy Haile on 07-15-2023 WBC Auto (Urine sed) [#/Area] 5-9 [HPF] 0-4 [facility] Basophils Auto (Bld) [#/Vol] Ordered By: Troy Haile on 07-15-2023 Basophils (Bld) [#/Vol] 0.1 10*3/uL 0.0-0.2 [facility] Basophils/100 WBC Auto (Bld) Ordered By: Troy Haile on 07-15-2023 Basophils/100 WBC (Bld) 0.7 % . [facility] Bilirubin Test strip Ql (U)O rdered By: Troy Haile on 07-15-2023 Bilirubin Ql (U) Negative Negative [facility] Bilirubin.direct [Mass/volum e] in Serum or PlasmaOrdered By: Troy Haile on 07-15-2023 Bilirubin.direct [Mass/Vol] 0.10 mg/dL 0.03-0.18 [facility] Bilirubin.total [Mass/volume ] in Serum or PlasmaOrdered By: Troy Haile on 07-15-2023 Bilirubin [Mass/Vol] 0.5 mg/dL 0.3-1.0 [facility] Calcium [Mass/volume] in Ser um or PlasmaOrdered By: Troy Haile on 07-15-2023 Calcium [Mass/Vol] 8.8 mg/dL 8.6-10.3 [facility] Carbon dioxide, total [Moles /volume] in Serum or PlasmaOrdered By: Troy Haile on 07-15-2023 CO2 [Moles/Vol] 24.0 mmol/L 21.0-31.0 [facility] Chloride [Moles/volume] in S ty or PlasmaOrdered By: Troy Haile on 07-15-2023 Chloride [Moles/Vol] 104 mmol/L 98-107 [facility] Color Auto (U)Ordered By: Yamil Haile on 07-15-2023 Color (U) Yellow Yellow [facility] Creatinine [Mass/volume] in Serum or PlasmaOrdered By: Troy Haile on 07-15-2023 Creatinine [Mass/Vol] 0.54 mg/dL 0.60-1.20 [facility] Dipstick and Microscopicon 1 Appearance (U) Cloudy Critically abnormal Clear [facility] Comment on above: Order Comment: Name Collection Type:: Clean-Voided Midstream Performed By: #### G LULS #### Point of Care testing , Bacteria,Urine 2+ High None Seen [facility] Comment on above: Order Comment: Name Collection Type:: Clean-Voided Midstream Performed By: #### G LULS #### Point of Care testing , Bilirubin,Urine Negative Normal Negative [facility] Comment on above: Order Comment: Name Collection Type:: Clean-Voided Midstream Performed By: #### G LULS #### Point of Care testing , Color (U) Yellow Normal Yellow [facility] Comment on above: Order Comment: Name Collection Type:: Clean-Voided Midstream Performed By: #### G LULS #### Point of Care testing , Glucose Ql (U) Normal Normal Normal [facility] Comment on above: Order Comment: Name Collection Type:: Clean-Voided Midstream Performed By: #### G LULS #### Point of Care testing , Hyaline Casts,Urine 0-8 Normal 0-8 [facility] Comment on above: Order Comment: Name Collection Type:: Clean-Voided Midstream Performed By: #### G LULS #### Point of Care testing , Ketones Ql (U) Negative Normal Negative [facility] Comment on above: Order Comment: Name Collection Type:: Clean-Voided Midstream Performed By: #### G LULS #### Point of Care testing , Leukocyte esterase Test strip Ql (U) 1+ High Negative [facility] Comment on above: Order Comment: Name Collection Type:: Clean-Voided Midstream Performed By: #### G LULS #### Point of Care testing , Nitrite,Urine Negative Normal Negative [facility] Comment on above: Order Comment: Name Collection Type:: Clean-Voided Midstream Performed By: #### G LULS #### Point of Care testing , Occult Blood,Urine Negative Normal Negative [facility] Comment on above: Order Comment: Name Collection Type:: Clean-Voided Midstream Performed By: #### G LULS #### Point of Care testing , pH (U) 6.5 [pH] Normal 5.0-9.0 [facility] Comment on above: Order Comment: Name Collection Type:: Clean-Voided Midstream Performed By: #### G LULS #### Point of Care testing , Protein,Urine Trace High Negative [facility] Comment on above: Order Comment: Name Collection Type:: Clean-Voided Midstream Performed By: #### G LULS #### Point of Care testing , RBC,Urine 3-4 Normal 0-4 [facility] Comment on above: Order Comment: Name Collection Type:: Clean-Voided Midstream Performed By: #### G LULS #### Point of Care testing , Specificy [place],Urine 1.023 Normal 1.001-1.030 [facility] Comment on above: Order Comment: Name Collection Type:: Clean-Voided Midstream Performed By: #### G LULS #### Point of Care testing , Squamous Epithelial Cell,Urine 10-19 High 0-2 [facility] Comment on above: Order Comment: Name Collection Type:: Clean-Voided Midstream Performed By: #### G LULS #### Point of Care testing , Urobilinogen,Urine Normal Normal Normal [facility] Comment on above: Order Comment: Name Collection Type:: Clean-Voided Midstream Performed By: #### G LULS #### Point of Care testing , WBC,Urine 5-9 High 0-4 [facility] Comment on above: Order Comment: Name Collection Type:: Clean-Voided Midstream Performed By: #### G LULS #### Point of Care testing , Eosinophils Auto (Bld) [#/Vo l]Ordered By: Troy Haile on 07-15-2023 Eosinophils (Bld) [#/Vol] 0.1 10*3/uL 0.0-0.45 [facility] Eosinophils/100 WBC Auto (Bl d)Ordered By: Troy Haile on 07-15-2023 Eosinophils/100 WBC (Bld) 1.0 % . [facility] Erythrocyte distribution wid th Auto (RBC) [Ratio]Ordered By: Troy Haile on 07-15-2023 Erythrocyte distribution width (RBC) [Ratio] 14.2 % 11.9-15.3 [facility] Globulin Calc (S) [Mass/Vol] Ordered By: Troy Haile on 07-15-2023 Globulin (S) [Mass/Vol] 3.3 g/dL [facility] Glucose [Mass/volume] in Ser um or PlasmaOrdered By: Troy Haile on 07-15-2023 Glucose [Mass/Vol] 95 mg/dL 70-100 [facility] Comment on above: ADA recommended refe rence rangeRandom Glucose Reference Range is dependent on time and content of last meal. Glucose of more than 200 mg/dL in a nonstressed, ambulatory subject supports the diagnosis of Diabetes Mellitus. HCG ( test) IA.rapi d Ql (U)Ordered By: PROVIDER TEMP on 07-15-2023 HCG ( test) Ql (U) Negative [facility] HCG,Urineon 07-15-2023 Beta HCG ( test) Ql (U) Negative Normal [facility] Comment on above: Order Comment: Name Collection Type:: Clean-Voided Midstream Result Comment: PERF ORMED BY: [facility] [address] [place] [address] PATHOLOGIST [employer] DARELL FIORE M.D. Performed By: #### G GIO #### Point of Care testing , Hematocrit Auto (Bld) [Volum e fraction]Ordered By: Troy Haile on 07-15-2023 Hematocrit (Bld) [Volume fraction] 35.1 % 34.0-46.4 [facility] Hemoglobin [Mass/volume] in BloodOrdered By: Troy Haile on 07-15-2023 Hemoglobin (Bld) [Mass/Vol] 11.9 g/dL 11.8-15.4 [facility] Ketones Auto test strip (U) [Mass/Vol]Ordered By: Troy Haile on 07-15-2023 Ketones (U) [Mass/Vol] Negative Negative [facility] Laboratory - UrinalysisOrder ed By: Troy Haile on 07-15-2023 Hyaline casts LM Ql (Urine sed) 0-8 [LPF] 0-8 [facility] Leukocytes [#/volume] correc gregor for nucleated erythrocytes in Blood by Automated counOrdered By: Troy Haile on 07-15-2023 WBC corrected for nucl RBC Auto (Bld) [#/Vol] 7.8 10*3/uL 3.8-11.6 [facility] Lipase [Enzymatic activity/v olume] in Serum or PlasmaOrdered By: Troy Haile on 07-15-2023 Lipase [Catalytic activity/Vol] 4.0 U/L 11.0-82.0 [facility] Lymphocytes Auto (Bld) [#/Vo l]Ordered By: Troy Haile on 07-15-2023 Lymphocytes (Bld) [#/Vol] 2.7 10*3/uL 1.00-4.8 [facility] Lymphocytes/100 WBC Auto (Bl d)Ordered By: Troy Haile on 07-15-2023 Lymphocytes/100 WBC (Bld) 34.4 % . [facility] MCH Auto (RBC) [Entitic mass ]Ordered By: Troy Haile on 07-15-2023 MCH (RBC) [Entitic mass] 31.9 pg 24.7-34.3 [facility] MCHC Auto (RBC) [Mass/Vol]Or dered By: Troy Haile on 07-15-2023 MCHC (RBC) [Mass/Vol] 34.0 g/dL 32.0-35.0 [facility] MCV Auto (RBC) [Entitic vol] Ordered By: Troy Haile on 07-15-2023 MCV (RBC) [Entitic vol] 93.7 fL 80-100 [facility] Monocyte distribution width [Entitic volume] in Blood by AutomatedOrdered By: Troy Haile on 07-15-2023 Monocyte distribution width Auto (Bld) [Entitic vol] 21.41 % 0.00-20.00 [facility] Comment on above: For adults in ED, MD W > 20.0 may be associated with a higher risk of sepsis during the first 12 hrs of hospital admission Monocytes Auto (Bld) [#/Vol] Ordered By: Troy Haile on 07-15-2023 Monocytes (Bld) [#/Vol] 0.4 10*3/uL 0.0-0.8 [facility] Monocytes/100 WBC Auto (Bld) Ordered By: Troy Haile on 07-15-2023 Monocytes/100 WBC (Bld) 5.3 % . [facility] Neutrophils Auto (Bld) [#/Vo l]Ordered By: Troy Haile on 07-15-2023 Neutrophils (Bld) [#/Vol] 4.6 10*3/uL 1.8-7.7 [facility] Neutrophils/100 WBC Auto (Bl d)Ordered By: Troy Haile on 07-15-2023 Neutrophils/100 WBC (Bld) 58.6 % . [facility] Nitrite Test strip Ql (U)Ord ered By: Troy Haile on 07-15-2023 Nitrite Ql (U) Negative Negative [facility] No Panel InformationOrdered By: Troy Haile on 07-15-2023 Estimated GFR (CKD-EPI) > 60.0 mL/Min [facility] Creatinine Clearance (Chem 119.14 [facility] Nucleated erythrocytes [Pres ence] in Blood by Automated countOrdered By: Troy Haile on 10-30-2023 Nucleated RBC Auto Ql (Bld) 0.1 /100{WBC} 0-0.5 [facility] Platelet mean volume Auto (B ld) [Entitic vol]Ordered By: Troy Haile on 07-15-2023 Platelet mean volume (Bld) [Entitic vol] 7.9 fL 6.3-10.7 [facility] Platelets Auto (Bld) [#/Vol] Ordered By: Troy Haile on 07-15-2023 Platelets (Bld) [#/Vol] 225 10*3/uL 150-450 [facility] Potassium [Moles/volume] in Serum or PlasmaOrdered By: Troy Haile on 07-15-2023 Potassium [Moles/Vol] 3.9 mmol/L 3.5-5.1 [facility] Protein Auto test strip (U) [Mass/Vol]Ordered By: Troy Haile on 07-15-2023 Protein (U) [Mass/Vol] Trace mg/dL Negative [facility] Protein [Mass/volume] in Ser um or PlasmaOrdered By: Troy Haile on 07-15-2023 Protein [Mass/Vol] 7.2 g/dL 6.4-8.9 [facility] RBC Auto (Bld) [#/Vol]Ordere d By: Troy Haile on 07-15-2023 RBC (Bld) [#/Vol] 3.74 10*6/uL 3.60-5.00 [facility] Serum or plasma albumin/glob ulin mass ratioOrdered By: Troy Haile on 07-15-2023 Albumin/Globulin [Mass ratio] 1.2 {ratio} [facility] Serum or plasma anion gap de terminationOrdered By: Troy Haile on 07-15-2023 Anion gap [Moles/Vol] 10.9 mmol/L 6.0-15.0 [facility] Serum or plasma non-glucuron idated bilirubin measurement (mass/volume)Ordered By: Troy Haile on 07-15-2023 Bilirubin.indirect [Mass/Vol] 0.4 mg/dL [facility] Sodium [Moles/volume] in Ser um or PlasmaOrdered By: Troy Haile on 07-15-2023 Sodium [Moles/Vol] 135 mmol/L 136-145 [facility] Specific gravity Auto test s trip (U) [Rel density]Ordered By: Troy Haile on 07-15-2023 Specific gravity (U) [Rel density] 1.023 1.001-1.030 [facility] Squamous epithelial cells de tection in urine sediment by light microscopyOrdered By: Troy Haile on 07-15-2023 Epithelial cells.squamous LM Ql (Urine sed) 10-19 [HPF] 0-2 [facility] Urea nitrogen [Mass/volume] in Serum or PlasmaOrdered By: Troy Haile on 07-15-2023 Urea nitrogen [Mass/Vol] 10 mg/dL 7-25 [facility] Urine Cultureon 07-15-2023 Bacteria identified Cx Nom (U) >100,000 colonies/ml mixed bacterial skin contaminants 2 Days PERFORMED BY: [address] [place] [address] PATHOLOGIST [employer] DARELL FIORE M.D. [facility] Comment on above: Performed By: #### G LULS #### Point of Care testing , Urine bacteria detection by automated methodOrdered By: Troy Haile on 07-15-2023 Bacteria Auto Ql (U) 2+ None Seen [facility] Urine clarity by refractomet ry automatedOrdered By: Troy Haile on 07-15-2023 Clarity Refractometry automated (U) Cloudy Clear [facility] Urine culture routineOrdered By: Troy Haile on 07-15-2023 Bacteria identified Cx Nom (U) [address] [facility] Urine glucose measurement by automated test strip (mass/volume)Ordered By: Troy Haile on 07-15-2023 Glucose Auto test strip (U) [Mass/Vol] Normal mg/dL Normal [facility] Urine hemoglobin detection b y automated test stripOrdered By: Troy Haiel on 07-15-2023 Hemoglobin Auto test strip Ql (U) Negative Negative [facility] Urine leukocyte esterase det ection by automated test stripOrdered By: Troy Haile on 07-15-2023 Leukocyte esterase Auto test strip Ql (U) 1+ Negative [facility] Urobilinogen Auto test strip (U) [Mass/Vol]Ordered By: Troy Haile on 07-15-2023 Urobilinogen (U) [Mass/Vol] Normal mg/dL Normal [facility] WBC Auto (Bld) [#/Vol]Ordere d By: Troy Haile on 07-15-2023 WBC (Bld) [#/Vol] 7.8 10*3/uL 3.8-11.6 [facility] pH Auto test strip (U)Ordere d By: Troy Haile on 07-15-2023 pH (U) 6.5 [pH] 5.0-9.0 [facility] CNPNon 07-09-2023 CNPN Telephone ([facility]) -------- JULIETH SPENCER ([id number]) 1985 F Date Time Provider Department 07/09/23 ERIN OLEARY [facility] During your visit today, we recorded the following information about you: Erin Oleary RN 07/09/2023 10:07 AM Signed Duplicate note. Erin Oleary RNCC Pool Coordinator Allergies As of Date: 07/09/2023 Noted Allergy Reaction BACTRIM (SULFAMETHOXAZOLE) 05/03/2014 2 - Rash MORPHINE 09/05/2014 14 - Other: See Comments Comments: Visual hallucinations Date Reviewed: 06/14/2022 Reviewed by: Cathy Carter, KISHA - Fully Assessed Reason for Visit: Care Coordination [3831] Future Appointment [256] Prescriptions as of 07/09/2023 [...] mouth every 6 hours as needed. - eugsap-zsfapsdw-[id number] (CREON) 36,000-114,000- 180,000 unit delayed release capsule [...] BAQSIMI 3 mg/actuation nasal spray Use 1 [place] in the nose as needed. - insulin [...] Encounter Status:Closed by ERIN OLEARY on 07/09/23 [facility] John 06-25-2023 CNPEmma Telephone ([facility]) -------- JULIETH SPENCER ([id number]) 1985 F Date Time Provider Department 06/25/23 MATT BOND During your visit today, we recorded the following information about you: Allergies As of Date: 06/25/2023 Noted Allergy Reaction BACTRIM (SULFAMETHOXAZOLE) 05/03/2014 2 - Rash MORPHINE 09/05/2014 14 - Other: See Comments Comments: Visual hallucinations Date Reviewed: 06/14/2022 Reviewed by: Ctahy Carter, RN - Fully Assessed Prescriptions as [...] mouth every 6 hours as needed. - jaqftg-igbrfdbx-bqqzprl (CREON) 36,000-114,000- 180,000 unit delayed release capsule [...] BAQSIMI 3 mg/actuation nasal spray Use 1 [place] in the nose as needed. - insulin [...] Encounter Status:Closed by AMALIA STOCK on 06/25/23 [facility] -------- JULIETH SPENCER ([id number]) 1985 F Date Time Provider Department 05/17/23 RAMOS PAREKH [facility] During your visit today, we recorded the following information about you: Mary Patient User Experience DeveloperTorito 05/17/2023 9:51 AM Signed Patient called in requesting to re-establish with . previous patient. Added on for today. Allergies As of Date: 05/17/2023 Noted Allergy Reaction BACTRIM (SULFAMETHOXAZOLE) 05/03/2014 2 - Rash MORPHINE 09/05/2014 14 - Other: See Comments Comments: Visual hallucinations Date Reviewed: 06/14/2022 Reviewed by: Cathy Carter, RN - Fully Assessed Prescriptions as of 05/17/2023 - lbmoml-bnsqvfgu-usbisyn (CREON) 36,000-114,000- 180,000 unit delayed release capsule [...] BAQSIMI 3 mg/actuation nasal spray Use 1 [place] in the nose as needed. - insulin [...] K8*06/14/2022 06/14/2022 Encounter Status:Closed by MARY PATIENT SPACE SCIENCES DIRECTORTORITO on 05/17/23 [facility] Palliative Careon 03-01-2023 Palliative Care Diagnoses/Problems Health [...] MOUTH EVERY DAY AT BEDTIME NEEDED Creon 86498-75432 UNIT Oral Capsule Delayed Release ParticlesPlease take 1 capsule by mouth with each meal three times a day Creon 32424-063915 UNIT Oral Capsule Delayed Release ParticlesTAKE 1 [...] 1 TABLET (more content not included)... Normal [facility] Palliative Careon 12-28-2022 Palliative Care Diagnoses/Problems Health [...] pancreas soon. She will be admitted to [facility] for this. She had no other concerns [...] tablet by mouth twice a day Creon 21096-90540 UNIT Oral Capsule Delayed Release ParticlesPlease take 1 capsule by mouth with each meal three times a day Creon 53412-621965 UNIT Oral Capsule Delayed Release ParticlesTAKE 1 [...] MG/24HR Tra (more content not included)... Normal [employer] Office Visiton 11-14-2022 Follow-up visit Provider Impressions [...] see me in early December on the [place], and we will plan for surgery sometime in December. This note was generated through dictation. Please forgive any typos or errors resulting from the dictation process. Sincerely, Tray Burk MD Chief of Surgical Oncology/[facility] Director of Surgical Services/[facility] Cancer [facility] [place] office, [facility] [phone] [place] [address] Chief Complaint A telephone visit (audio only) [...] tablet by mouth twice a day Creon 35479-59175 UNIT Oral Capsule Delayed Release ParticlesPlease take 1 capsule by mouth with each meal three times a day Creon 55289-258356 UNIT Oral Capsule Delayed Release ParticlesTAKE 1 [...] clear b (more content not included)... Normal [employer] Palliative Careon 11-02-2022 Palliative Care No report was sent Normal [facility] Palliative Care Diagnoses/Problems Assessed Chronic pancreatitis (577.1) [...] tablet by mouth twice a day Creon 04756-55081 UNIT Oral Capsule Delayed Release ParticlesPlease take 1 capsule by mouth with each meal three times a day Creon 89891-813123 UNIT Oral Capsule Delayed Release ParticlesTAKE 1 [...] tySite 11/23/2022 07:00 Tray Jaramillo MDOncology SurgerySurgery [facility] 12/28/2022 10:00 Ramos Allen MDPalliative CareChagrafshan Minoff [...] our weaning strategy after surgery - Offered dramatic coach or social work services to help process [...] consent was requested and obtained from JULIETH SRINIVASA on this date, 09/28/2022 08:00 AM , [...] tablet by mouth twice a day Creon 67918-90821 UNIT Oral Capsule Delayed Release ParticlesPlease take 1 capsule by mouth with each meal three times a day Creon 55546-251310 UNIT Oral Capsule Delayed Release ParticlesTAKE 1 [...] Sincerely, Tray Burk MD Chief of Surgical Oncology/[facility] Director of Surgical Services/[facility], [facility] [phone] [place] [phone] Chief Complaint Follow up appt from surgery. [...] History o (more content not included)... Normal [email or web address] Progress Noteson 09-04-2022 Group Fitness Manager Authentication Interface Message Text ----- Sunday, September 04, 2022 at 9:52:26 AM ----- ----- Provider: Zach Chapin DDS -- Clinic: [place] [address] ----- INITIAL/COMPREHENSIVE EXAM Patient presents for an [...] Next Visit: Prophy and Restorative Normal [facility] Office Visiton 08-23-2022 Follow-up visit Provider [...] Sincerely, Tray Burk MD Chief of Surgical Oncology/[facility] Director of Surgical Services/[facility], [facility] [phone] [place] [address] Chief Complaint Chronic pancreatitis. 60 minute visit. [...] tablet by mouth twice a day Creon 73785-06577 UNIT Oral Capsule Delayed Release ParticlesPlease take 1 capsule by mouth with each meal three times a day Creon 20718-741968 UNIT Oral Capsule Delayed Release ParticlesTAKE 1 [...] WBC (Bld) 0.0 % 0.0 - 2.0 [facility] Work Phone: Erythrocyte distribution width (RBC) [Ratio] 15.4 % above high threshold See Below [facility] Work Phone: Comment on above: Reference Range: 11. 5 - 14.5 Hematocrit (Bld) [Volume fraction] 32.0 % below low threshold See Below [facility] Work Phone: Comment on above: Reference Range: 36. 0 - 46.0 Hemoglobin (Bld) [Mass/Vol] 10.7 g/dL below low threshold See Below [facility] Work Phone: Comment on above: Reference Range: 12. 0 - 16.0 Lymphocytes/100 WBC (Bld) 24.2 % See Below [facility] Work Phone: [phone] Comment on above: Reference Range: 13. 0 - 44.0 MCHC (RBC) [Mass/Vol] 33.4 g/dL See Below [facility] Work Phone: [phone] Comment on above: Reference Range: 32. 0 - 36.0 MCV (RBC) [Entitic vol] 85 fL 80 - 100 [facility] Work Phone: [phone] Monocytes/100 WBC (Bld) 2.6 % 2.0 - 10.0 [facility] Work Phone: [phone] Neutrophils/100 WBC (Bld) 72.8 % See Below [facility] Work Phone: [phone] Comment on above: Reference Range: 40. 0 - 80.0 Platelets (Bld) [#/Vol] 232 10*3/uL 150 - 450 [facility] Work Phone: [phone] RBC (Bld) [#/Vol] 3.76 {x10E12/L} below low threshold See Below [facility] Work Phone: [phone] Comment on above: Reference Range: 4.0 0 - 5.20 WBC (Bld) [#/Vol] 5.3 10*3/uL 4.4 - 11.3 [facility] Work Phone: [phone] Complete Blood Count + Differential 0.00 {x10E9/L} See Below [facility] Work Phone: [phone] Comment on above: Reference Range: 0.0 0 - 0.10 Complete Blood Count + Differential 0.01 {x10E9/L} See Below [facility] Work Phone: [phone] Comment on above: Reference Range: 0.0 0 - 0.70 Complete Blood Count + Differential 0.14 {x10E9/L} See Below [facility] Work Phone: [phone] Comment on above: Reference Range: 0.1 0 - 1.00 Complete Blood Count + Differential 1.29 {x10E9/L} See Below [facility] Work Phone: [phone] Comment on above: Reference Range: 1.2 0 - 4.80 Complete Blood Count + Differential 3.87 {x10E9/L} See Below [facility] Work Phone: Comment on above: Reference Range: 1.2 0 - 7.70 Complete Blood Count + Differential 0.2 % 0.0 - 0.9 [facility] Work Phone: Comment on above: Immature Granulocyte Count (IG) includes promyelocytes, myelocytes and metamyelocytes but does not include bands. Percent differential counts (%) should be interpreted in the context of the absolute cell counts (cells/L). Complete Blood Count + Differential 0.0 {/100_WBC} 0.0-0.0 [facility] Work Phone: Coronavirus 2019 RNA by PCR, Symptomaticon 08-15-2022 Coronavirus 2019 RNA by PCR, Symptomatic Not detected Normal See Below [facility] Work Phone: Comment on above: SOURCE: Nasal, Nasop haryngealReference Range: Not Detected.This test has received FDA Emergency Use Authorization (EUA) and has been verified by [facility] ([facility]). This test is only authorized for the duration of time that circumstances exist to justify the authorization of the emergency use of in vitro diagnostic tests for the detection of SARS-CoV-2 virus and/or diagnosis of COVID-19 infection under section 564(b)(1) of the Act, 21 U.S.C. 360bbb-3(b)(1), unless the authorization is terminated or revoked sooner. [facility] is certified under CLIA-88 as qualified to perform high complexity testing. Testing is performed in the [facility] located at [address] [place] [address].SARS-CoV-2/Flu/RSV Multiplex Test: Fact sheet for providers: https://www.fda.gov/media/882338/downloadFact sheet for patients: https://www.fda.gov/media/874330/download Laboratory - Chemistry and C hemistry - challengeon 08-15-2022 Albumin BCP dye [Mass/Vol] 2.5 g/dL below low threshold 3.4 - 5.0 [facility] Work Phone: ALP [Catalytic activity/Vol] 127 U/L above high threshold 33 - 110 [facility] Work Phone: [phone] ALT With P-5'-P [Catalytic activity/Vol] 55 U/L above high threshold 7 - 45 [facility] Work Phone: [phone] Comment on above: Patients treated wit h Sulfasalazine may generate falsely decreased results for ALT. Anion gap [Moles/Vol] 10 mmol/L 10 - 20 [facility] Work Phone: [phone] AST With P-5'-P [Catalytic activity/Vol] 119 U/L above high threshold 9 - 39 [facility] Work Phone: Bilirubin [Mass/Vol] 0.5 mg/dL 0.0 - 1.2 [facility] Work Phone: [phone] Calcium [Mass/Vol] 6.0 mg/dL below low threshold 8.6 - 10.6 [facility] Work Phone: [phone] Chloride [Moles/Vol] 114 mmol/L above high threshold 98 - 107 [facility] Work Phone: [phone] CO2 [Moles/Vol] 18 mmol/L below low threshold 21 - 32 [facility] Work Phone: [phone] Creatinine [Mass/Vol] 0.54 mg/dL See Below [facility] Work Phone: [phone] Comment on above: Reference Range: 0.5 0 - 1.05 Glucose [Mass/Vol] 143 mg/dL above high threshold 74 - 99 [facility] Work Phone: Potassium [Moles/Vol] 3.1 mmol/L below low threshold 3.5 - 5.3 [facility] Work Phone: Protein [Mass/Vol] 4.6 g/dL below low threshold 6.4 - 8.2 [facility] Work Phone: Sodium [Moles/Vol] 139 mmol/L 136 - 145 [facility] Work Phone: [phone] Urea nitrogen [Mass/Vol] 14 mg/dL 6 - 23 [facility] Work Phone: Lactate, Levelon 08-15-2022 Lactate [Moles/Vol] 1.1 mmol/L 0.4 - 2.0 [facility] Work Phone: Comment on above: Venipuncture immedia tely after or during the administration of Metamizole may lead to falsely low results. Testing should be performed immediately prior to Metamizole dosing. Lipase, Serumon 08-15-2022 Lipase [Catalytic activity/Vol] U/L Abnormal 9 - 82 [facility] Work Phone: Comment on above: Venipuncture immedia tely after or during the administration of Metamizole may lead to falsely low results. Testing should be performed immediately prior to Metamizole dosing. P-njowlm-t-benzoquinone imine (metabolite of Acetaminophen) will generate erroneously low results in samples for patients that have taken toxic doses of acetaminophen. No Panel Informationon 08-15 >90 >90 [facility] Work Phone: Comment on above: CALCULATIONS OF LEIDY MATED GFR ARE PERFORMED USING THE 2020 CKD-EPI STUDY REFIT EQUATION WITHOUT THE RACE VARIABLE FOR THE IDMS-TRACEABLE CREATININE METHODS.https://jasn.asnjournals.org/content// N.6922026271 Laboratory - Chemistry and C hemistry - challengeon 08-14-2022 Anion gap 4 (BldV) [Moles/Vol] 11 mmol/L 10 - 25 [facility] Work Phone: Base excess Calc (BldV) [Moles/Vol] -2.6000 mmol/L below low threshold -2.0 - 3.0 [facility] Work Phone: Calcium.ionized (BldV) [Moles/Vol] 1.14 mmol/L See Below [facility] Work Phone: Comment on above: Reference Range: 1.1 0 - 1.33 Chloride (BldV) [Moles/Vol] 104 mmol/L 98 - 107 [facility] Work Phone: CO2 (BldV) [Partial pressure] 43 mm[Hg] 41 - 51 [facility] Work Phone: Glucose [Mass/Vol] 173 mg/dL above high threshold 74 - 99 [facility] Work Phone: HCO3 (Bld) [Moles/Vol] 23.2 mmol/L See Below [facility] Work Phone: Comment on above: Reference Range: 22. 0 - 26.0 Lactate (BldV) [Moles/Vol] 0.9 mmol/L 0.4 - 2.0 [facility] Work Phone: Oxygen (BldV) [Partial pressure] 29 mm[Hg] below low threshold 35 - 45 [facility] Work Phone: Oxyhemoglobin (BldV) [Mass fraction] 49.4 % See Below [facility] Work Phone: Comment on above: Reference Range: 45. 0 - 75.0 pH (BldV) 7.34 [pH] See Below [facility] Work Phone: Comment on above: Reference Range: 7.3 3 - 7.43 Potassium (BldV) [Moles/Vol] 3.8 mmol/L 3.5 - 5.3 [facility] Work Phone: Sodium (BldV) [Moles/Vol] 134 mmol/L below low threshold 136 - 145 [facility] Work Phone: Laboratory - Hematology and Cell countson 08-14-2022 Hematocrit Est (Bld) [Volume fraction] 34.0 % below low threshold See Below [facility] Work Phone: Comment on above: Reference Range: 36. 0 - 46.0 Hemoglobin (Bld) [Mass/Vol] 11.3 g/dL below low threshold See Below [facility] Work Phone: Comment on above: Reference Range: 12. 0 - 16.0 No Panel Informationon 08-14 Please click on the link to view the study images Normal [facility] Work Phone: [email or web address]} [facility] Work Phone: [facility] Work Phone: Vital signson 08-14-2022 Oxygen saturation in Venous blood 51 % 45 - 75 [facility] Work Phone: Palliative Careon 07-27-2022 Palliative [...] tablet by mouth twice a day Creon 93325-46637 UNIT Oral Capsule Delayed Release ParticlesPlease take 1 capsule by mouth with each meal three times a day Creon 80451-068532 UNIT Oral Capsule Delayed Release ParticlesTAKE 1 [...] Jul 27 2022 10:20PM EST (Author) Normal [employer] Palliative Careon 07-06-2022 Palliative Care Diagnoses/Problems Assessed [...] tablet by mouth twice a day Creon 95778-16150 UNIT Oral Capsule Delayed Release ParticlesPlease take 1 capsule with each meal three times a day Creon 22288-683382 UNIT Oral Capsule Delayed Release ParticlesTAKE 1 [...] Jul 24 2022 12:53PM EST (Author) Normal [facility] Palliative Careon 06-22-2022 Palliative Care Diagnoses/Problems Assessed [...] last visit, especially after a stay at [facility] during which time they replaced the stent [...] use Allergies Medication Bactrim Recorded By: Gianna Blnachard; 06/29/2021 3:01:33 PM Current Meds Medication NameInstruction busPIRone HCl - 15 MG Oral Tablettake 1 tablet by mouth twice a day Creon 96370-24248 UNIT Oral Capsule Delayed Release ParticlesPlease take 1 capsule with each meal three times a day Creon 00751-522638 UNIT Oral Capsule Delayed Release ParticlesTAKE 1 [...] Normal [employer] CNDSon 06-14-2022 CNDS HNO ID: [id number] Author: Caro Jackson MD Service: Hospital Medicine [...] Attending Provider: Caro Jackson MD Primary Service: [place] [address] Consulting: Vicky Whaley MD MY CONDITION AT [...] call for appointment?: Yes Nat [place] DO [phone] [facility] [address] PCP Requested Referral Additional Provider to Provider [...] Attending Provider: Caro Jackson MD Primary Service: [place] [address] Consulting: Vicky Whaley MD Transitions of Care Critical Issues: SPECIALIST FOLLOW-UP: GI LABS AND PROCEDURES PENDING AT DISCHARGE: No pending results. INCIDENTAL OR ACTIONABLE FINDING (Last Refresh: 06/14/2022 1:42 PM) Test(s): CT PANCREAS W IVCON FOLLOW-UP APPOINTMENTS ALREADY SCHEDULED WITH A [facility] PROVIDER: No future appointments. ALLERGIES Allergen [...] promethazine ( (more content not included)... Normal [facility] CONSULT PROGon 06-14-2022 CONSULT PROG HNO ID: [id number] Author: Nidhi Umanzor APRN.CNP Service: Gastroenterology Author [...] increase of IgG4 plasma cells --Admitted at [facility] with acute episode of pancreatitis likely exacerbated [...] delivery issues) --Last colonoscopy in January in [place] (records not found in [facility]) --Resume usual Humira at discharge. --No plan to repeat colonoscopy at this point in time OK to discharge from GI standpoint and follow-up with Dr. Whaley/Stefanie Solorzano CNP as noted above. (Patient was previously following GI in [place] for Crohn's as well as GI at [...] Function, Amylase, AND Lipase SIGNATURE: Nidhi Umanzor APRN.CNP DATE: June 14, 2022 TIME: 12:02 PM Office [facility] NURSING PROGon 06-14-2022 NURSING PROG HNO ID: [id number] Author: Torito Juárez RN Service: ? Author Type: Registered Nurse Type: Nursing Progress Note Filed: 06/14/2022 2:08 PM Note Text: Other: d/c instructions and meds reviewed with pt who verbalized understanding. IVcap removed. Pt d/cd via ambulation with belongings. [facility] NURSING PROG HNO ID: [id number] Author: RT Darren(R) Service: Radiology Author Type: [...] DATA: Not applicable SIGNED BY: Ally Everett, RT(R) June 14, 2022 12:06 PM [facility] NURSING PROG HNO ID: [id number] Author: Cathy Carter RN Service: ? Author Type: Registered Nurse Type: Nursing Progress Note Filed: 06/14/2022 12:46 PM Note Text: Other: 1105: Assumed care of pt. Safety maintained. 1220: Pt assessment as charted. Pt states pain 6/10 in abdomen at this time, will medicate when time. IV intact. Bed in lowest locked position. Call light within reach. Safety maintained. Will continue to monitor. [facility] NURSING PROG HNO ID: [id number] Author: Meka Conrad RN Service: ? Author Type: Registered Nurse Type: Nursing Progress Note Filed: 06/14/2022 9:50 AM Note Text: Other: 0705 Assumed care of patient. Bed locked and in lowest position. Call light within reach. Will continue to monitor [facility] XR PELVIS 1V APon 06-14-2022 XR PELVIS [...] on Jun 14 2022 12:18PM EST [id number] [facility] CBC panel Auto (Bld)on 06-13 Erythrocyte distribution width (RBC) [Ratio] 13.2 % Normal 11.5-15.0 [facility] Comment on above: Order Comment: Speci men Type: BLOOD SPECIMENOrdering Facility: [facility] Address: [address] [place] [address] Performed By: #### 5 8410-2 ####[facility]ORATORYCLIA [id number] [address] [place] Hematocrit (Bld) [Volume fraction] 33.3 % Low 36.0-46.0 [facility] Comment on above: Order Comment: Speci men Type: BLOOD SPECIMENOrdering Facility: [facility] Address: [address] [place] [address] Performed By: #### 5 8410-2 ####[facility]ATORYCLIA [id number] [place] [address] [place] Hemoglobin (Bld) [Mass/Vol] 10.8 g/dL Low 11.5-15.5 [facility] Comment on above: Order Comment: Speci men Type: BLOOD SPECIMENOrdering Facility: [facility] Address: [address] [place] [address] Performed By: #### 5 8410-2 ####[facility]ATORYCLIA [id number] [address] [place] MCH (RBC) [Entitic mass] 29.6 pg Normal 26.0-34.0 [facility] Comment on above: Order Comment: Speci men Type: BLOOD SPECIMENOrdering Facility: [facility] Address: [address] [place] [address] Performed By: #### 5 8410-2 ####[facility]ATORYCLIA [id number] [place] [address] [place] MCHC (RBC) [Mass/Vol] 32.4 g/dL Normal 30.5-36.0 [facility] Comment on above: Order Comment: Speci men Type: BLOOD SPECIMENOrdering Facility: [facility] Address: [address] [place] [address] Performed By: #### 5 8410-2 ####[facility]ATORYCLIA [id number] [place] [address] [place] MCV (RBC) [Entitic vol] 91.2 fL Normal 80.0-100.0 [facility] Comment on above: Order Comment: Speci men Type: BLOOD SPECIMENOrdering Facility: [facility] Address: [address] [place] [address] Performed By: #### 5 8410-2 ####[facility]ORYCLIA [id number] [place] [address] [place] Nucleated RBC (Bld) [#/Vol] 10*3/uL Normal <0.01 [facility] Comment on above: Order Comment: Speci men Type: BLOOD SPECIMENOrdering Facility: [facility] Address: [address] [place] [address] Performed By: #### 5 8410-2 ####[facility] LABORATORYCLIA [id number] [address] [place] Platelet mean volume (Bld) [Entitic vol] 10.2 fL Normal 9.0-12.7 [facility] Comment on above: Order Comment: Speci men Type: BLOOD SPECIMENOrdering Facility: [facility] Address: [address] [place] [address] Performed By: #### 5 8410-2 ####[facility]ORYCLIA [id number] [place] [address] [place] Platelets (Bld) [#/Vol] 204 10*3/uL Normal 150-400 [facility] Comment on above: Order Comment: Speci men Type: BLOOD SPECIMENOrdering Facility: [facility] Address: [address] [place] [address] Performed By: #### 5 8410-2 ####[facility]ORYCLIA [id number] [place] [address] [place] RBC (Bld) [#/Vol] 3.65 10*6/uL Low 3.90-5.20 [facility] Comment on above: Order Comment: Speci men Type: BLOOD SPECIMENOrdering Facility: [facility] Address: [address] [place] [address] Performed By: #### 5 8410-2 ####[facility] LABORATORYCLIA [id number] [place] [address] [place] WBC (Bld) [#/Vol] 5.95 10*3/uL Normal 3.70-11.00 [facility] Comment on above: Order Comment: Speci men Type: BLOOD SPECIMENOrdering Facility: [facility] Address: [address] [place] [address] Performed By: #### 5 8410-2 ####[facility] LABORATORYCLIA [id number] [address] [place] CNCOon 06-13-2022 CNCO Letter Text Normal [facility] CONSULT PROGon 06-13-2022 CONSULT PROG HNO ID: [id number] Author: Nidhi Umanzor APRN.DIRECTOR BLOOD BANK Service: Gastroenterology Author Type: Nurse Practitioner Type: [...] increase of IgG4 plasma cells --Admitted at [facility] with acute episode of pancreatitis likely exacerbated [...] of Crohn's --Needs low-fat diet -changed in [facility] --Creon increased to home doses --Discontinue scheduled MiraLAX, Colace, senna. --Stool chart Crohn's disease -- On Humira but none x1 month (due to specialty pharmacy delivery issues) -- Last colonoscopy in January in [place] (records not found in [facility]) --Resume usual Humira at discharge. --No plan to repeat colonoscopy at this point in time If tolerates lunch without significant abdominal pain, okay to discharge from GI standpoint and follow-up with Dr. Whaley/Stefanie Solorzano CNP as noted above. (Patient was previously following GI in [place] for Crohn's as well as GI at [...] Function, Amylase, AND Lipase SIGNATURE: Nidhi Umanzor APRN.DIRECTOR BLOOD BANK DATE: June 13, 2022 TIME: 9:32 AM Office [facility] NURSING PROGon 06-13-2022 NURSING PROG HNO ID: [id number] Author: Evelyne Rosales RN Service: Nursing Author Type: Registered Nurse Type: Nursing Progress Note Filed: 06/14/2022 3:51 AM Note Text: Nursing Progress Note Patient Name: Julieth Spencer Patient Location[place] [address] [address] Daily Note: 2100: Patient resting in bed. AANDOx3. Denies SOB, N/V and chest pain. Complaints of abdominal pain, medicated per MAR. IV patent. Bed low and locked, call tomas within reach. 0000: Patient observed asleep. 0107: Medicated for pain and nausea, see MAR. This note was completed by: Evelyne Rosales [facility] NURSING PROG HNO ID: [id number] Author: Patsy Harvey RN Service: Nursing Author Type: Registered Nurse Type: Nursing Progress Note Filed: 06/13/2022 11:00 AM Note Text: Other: 0755: Assumed care of patient. Assessment as charted. Alert and oriented x3. Denies SOB/cough. C/o abd pain, medicated per MAR, IVF infusing per order. Nicotine patch to left shoulder, intact 1000: C/o rectal discomfort, patient placed on stool charting per [facility] NURSING PROG HNO ID: [id number] Author: Ligia Britton RN Service: Nursing Author Type: Registered Nurse Type: Nursing Progress Note Filed: 06/13/2022 2:39 AM Note Text: Other: 1900 Assumed care of patient 2045 Pt. Assessed per flow sheet. Pt. AANDOx3 [...] and functioning. Will continue to monitor. Normal [facility] CONSULT PROGon 06-12-2022 CONSULT PROG HNO ID: [id number] Author: Stefanie Solorzano APRN.DIRECTOR BLOOD BANK Service: Gastroenterology Author Type: Nurse Practitioner Type: [...] in 2 months -- message confirmed to SI staff/procedure pool ASSESSMENT: Recurrent pancreatitis of unclear [...] with discharge planning ROS: Feels better today [place] full after eating the oatmeal yesterday but [...] Distance health visit -- she resides in [place]. Having recurrent pancreatitis since having CCY in [...] appointments with GI and hepatobiliary practices at [facility]. She was seen by Dr Guillen [...] pain management with but is transitioning to [facility]. Medical history is also complicated by Crohn's for which she is on Humira and is managed with GI at [facility]. IMAGIN06/08/22 CT panc Redemonstration of (more content not included)... Normal [facility] NURSING PROGon 06-12-2022 NURSING PROG HNO ID: [id number] Author: Cheyenne Reyes RN Service: ? Author [...] to monitor. Call light is within reach. [facility] NURSING PROG HNO ID: [id number] Author: Ligia Britton RN Service: Nursing Author [...] on and functioning. Will continue to monitor. [facility] NUTRITIONon 06-12-2022 NUTRITION HNO ID: [id number] Author: Yady Can RD Service: Nutrition Therapy Author Type: Registered Dietitian Type: Nutrition Filed: 06/12/2022 2:08 PM Note Text: NUTRITION THERAPY PROGRESS NOTE SERVICE DATE: 06/12/2022 SERVICE TIME: 1146a Nutrition Assessment: Recommended Malnutrition Diagnosis: Moderate Protein-Calorie Malnutrition (06/07/22 1130 : Lupis Sanchez RD) Estimated kilocalorie needs: 2412-1131 Calorie Calculation Method: 30-35 kcals/kg Estimated protein [...] June 12, 2022 TIME: 2:07 PM Normal [facility] CBC panel Auto (Bld)on 06-11 Erythrocyte distribution width (RBC) [Ratio] 13.1 % Normal 11.5-15.0 [facility] Comment on above: Order Comment: Agata adkins Type: BLOOD SPECIMENOrdering Facility: [facility] Address: [address] [place] [address] Performed By: #### 5 8410-2 ####[facility]ORATORYCLIA [id number] [place] [address] [place] Hematocrit (Bld) [Volume fraction] 32.9 % Low 36.0-46.0 [facility] Comment on above: Order Comment: Agata adkins Type: BLOOD SPECIMENOrdering Facility: [facility] Address: [address] [place] [address] Performed By: #### 5 8410-2 ####[facility] LABORATORYCLIA [id number] [place] [address] [place] Hemoglobin (Bld) [Mass/Vol] 10.5 g/dL Low 11.5-15.5 [facility] Comment on above: Order Comment: Agata adkins Type: BLOOD SPECIMENOrdering Facility: [facility] Address: [address] [place] [address] Performed By: #### 5 8410-2 ####[facility]ORATORYCLIA [id number] [address] MCH (RBC) [Entitic mass] 29.2 pg Normal 26.0-34.0 [facility] Comment on above: Order Comment: Speci men Type: BLOOD SPECIMENOrdering Facility: [facility] Address: [address] [place] [address] Performed By: #### 5 8410-2 ####[facility]ORATORYCLIA [id number] [address] [place] MCHC (RBC) [Mass/Vol] 31.9 g/dL Normal 30.5-36.0 [facility] Comment on above: Order Comment: Speci men Type: BLOOD SPECIMENOrdering Facility: [facility] Address: [address] [place] [address] Performed By: #### 5 8410-2 ####[facility]ORATORYCLIA [id number] [address] [place] MCV (RBC) [Entitic vol] 91.6 fL Normal 80.0-100.0 [facility] Comment on above: Order Comment: Speci men Type: BLOOD SPECIMENOrdering Facility: [facility] Address: [address] [place] [address] Performed By: #### 5 8410-2 ####[facility]ORATORYCLIA [id number] [address] [place] Nucleated RBC (Bld) [#/Vol] 10*3/uL Normal <0.01 [facility] Comment on above: Order Comment: Speci men Type: BLOOD SPECIMENOrdering Facility: [facility] Address: [address] [place] [address] Performed By: #### 5 8410-2 ####[facility]ORATORYCLIA [id number] [address] [place] Platelet mean volume (Bld) [Entitic vol] 10.4 fL Normal 9.0-12.7 [facility] Comment on above: Order Comment: Speci men Type: BLOOD SPECIMENOrdering Facility: [facility] Address: [address] [place] [address] Performed By: #### 5 8410-2 ####[facility]ORATORYCLIA [id number] [address] [place] Platelets (Bld) [#/Vol] 171 10*3/uL Normal 150-400 [facility] Comment on above: Order Comment: Speci men Type: BLOOD SPECIMENOrdering Facility: [facility] Address: [address] [place] [address] Performed By: #### 5 8410-2 ####[facility]ORATORYCLIA [id number] [place] [address] [place] RBC (Bld) [#/Vol] 3.59 10*6/uL Low 3.90-5.20 [facility] Comment on above: Order Comment: Speci men Type: BLOOD SPECIMENOrdering Facility: [facility] Address: [address] [place] [address] Performed By: #### 5 8410-2 ####[facility] LABORATORYCLIA [id number] [address] [place] WBC (Bld) [#/Vol] 6.19 10*3/uL Normal 3.70-11.00 [facility] Comment on above: Order Comment: Speci men Type: BLOOD SPECIMENOrdering Facility: [facility] Address: [address] [place] [address] Performed By: #### 5 8410-2 ####[facility]ORATORYCLIA [id number] [address] [place] CONSULT PROGon 06-11-2022 CONSULT PROG HNO ID: [id number] Author: Stefanie Solorzano APRN.DIRECTOR BLOOD BANK Service: Gastroenterology Author Type: Nurse Practitioner Type: [...] Distance health visit -- she resides in [place]. Having recurrent pancreatitis since having CCY in [...] appointments with GI and hepatobiliary practices at [facility]. She was seen by Dr Guillen [...] pain management with but is transitioning to [facility]. Medical history is also complicated by Crohn's for which she is on Humira and is managed with GI at [facility]. IMAGIN06/08/22 CT panc Redemonstration of findings of chronic pancreatitis. Mild peripancreatic stranding. Correlate for superimposed acute pancreatitis in the appropriate clinical setting. No peripancreatic fluid collection. Cholecystectomy changes and bile duct stent are present. Nutmeg appearance of the liver which can be seen with hepatic venous congestion. 3 mm lingular nodule, not demonstrated previously 06/06/22 ERCP 1. Previ (more content not included)... [facility] NURSING PROn 06-11-2022 NURSING PROG HNO ID: [id number] Author: Dalton Hurtado RN Service: ? Author [...] IV fluids infusing per mar. Safety maintained. [facility] CONSULT PROn 06-10-2022 CONSULT PROG HNO ID: [id number] Author: Ishmael Cuevas MD Service: Gastroenterology Author [...] DATE: June 10, 2022 TIME: 2:53 PM [facility] NURSING PROGon 06-10-2022 NURSING PROG HNO ID: [id number] Author: Cheyenne Reyes RN Service: ? Author [...] to monitor. Call light is within reach. [facility] NURSING PROG HNO ID: [id number] Author: Dalton Hurtado RN Service: ? Author [...] Prior assessment unchanged. Call light within reach. [facility] Basic metabolic 2000 panelon 06-09-2022 Anion gap [Moles/Vol] 7 mmol/L Low 9-18 [facility] Comment on above: Order Comment: Speci men Type: BLOOD SPECIMENOrdering Facility: [facility] Address: [address] [place] [address] Performed By: #### 2 4321-2 ####[facility]ATORYCLIA [id number] [place] [address] [place] Calcium [Mass/Vol] 8.4 mg/dL Low 8.5-10.2 [facility] Comment on above: Order Comment: Speci men Type: BLOOD SPECIMENOrdering Facility: [facility] Address: [address] [place] [address] Performed By: #### 2 4321-2 ####[facility]ORATORYCLIA [id number] [place] [address] [place] Chloride [Moles/Vol] 108 mmol/L High 97-105 [facility] Comment on above: Order Comment: Speci men Type: BLOOD SPECIMENOrdering Facility: [facility] Address: [address] [place] [address] Performed By: #### 2 4321-2 ####[facility]ATORYCLIA [id number] [place] [address] [place] CO2 [Moles/Vol] 21 mmol/L Low 22-30 [facility] Comment on above: Order Comment: Speci men Type: BLOOD SPECIMENOrdering Facility: [facility] Address: [address] [place] [address] Performed By: #### 2 4321-2 ####[facility]ATORYCLIA [id number] [place] [address] [place] Creatinine [Mass/Vol] 0.66 mg/dL Normal 0.58-0.96 [facility] Comment on above: Order Comment: Speci men Type: BLOOD SPECIMENOrdering Facility: [facility] Address: [address] [place] [address] Performed By: #### 2 4321-2 ####[facility]ORATORYCLIA [id number] [place] [address] [place] ESTIMATED GLOMERULAR FILTRATION RATE 118 mL/min/1.73m??? Normal >=60 [facility] Comment on above: Order Comment: Speci men Type: BLOOD SPECIMENOrdering Facility: [facility] Address: [address] [place] [address] Result Comment: [facility] Glomerular Filtration Rate (eGFR) is calculated using [...] actual GFR. Performed By: #### 2 4321-2 ####[facility]ATORYCLIA [id number] [place] [address] [place] Glucose [Mass/Vol] 117 mg/dL High 74-99 [facility] Comment on above: Order Comment: Agata adkins Type: BLOOD SPECIMENOrdering Facility: [facility] Address: [address] [place] [id number] Result Comment: The [place] Diabetes Association (ADA) provides guidance for cutoff [...] Standards of Medical Care in Diabetes 2016, [place] Diabetes Association. Diabetes Care. 2016.39(Suppl 1). Performed By: #### 2 4321-2 ####[facility] LABORATORYCLIA [id number] [place] [address] [place] Potassium [Moles/Vol] 4.0 mmol/L Normal 3.7-5.1 [facility] Comment on above: Order Comment: Agata adkins Type: BLOOD SPECIMENOrdering Facility: [facility] Address: [address] [place] [address] Performed By: #### 2 4321-2 ####[facility]ATORYCLIA [id number] [place] [address] [place] Sodium [Moles/Vol] 136 mmol/L Normal 136-144 [facility] Comment on above: Order Comment: Agata lucille Type: BLOOD SPECIMENOrdering Facility: [facility] Address: [address] [place] [address] Performed By: #### 2 4321-2 ####[facility]ATORYCLIA [id number] [place] [address] [place] Urea nitrogen [Mass/Vol] 6 mg/dL Low 7-21 [facility] Comment on above: Order Comment: Claudiacj adkins Type: BLOOD SPECIMENOrdering Facility: [facility] Address: [address] [place] [address] Performed By: #### 2 4321-2 ####[facility] LABORATORYCLIA [id number] [address] [place] CONSULT PROGon 06-09-2022 CONSULT PROG HNO ID: [id number] Author: Katlin Heredia APRN.CNP Service: Gastroenterology Author [...] TBILI 0.2 LIPASE 4* SIGNATURE: Katlin Heredia APRN.[facility] OFFICE: [phone] DATE: June 09, 2022 TIME: 9:42 AM [facility] NURSING PROGon 06-09-2022 NURSING PROG HNO ID: [id number] Author: Manoj Saavedra RN Service: ? Author Type: Registered Nurse Type: Nursing Progress Note Filed: 06/09/2022 1:36 PM Note Text: Nursing Progress Note Patient Name: Julieth Spencer [facility]2 Daily Note: 0840 Assessment as charted. Denies nausea, CP, HAAS, SOB. Reports 8/10 pain, encouraged relaxation and warm blanket for abdomen. Fluids running. Denies any further need at this time. Call light within reach. 1231 Reports 9/10 pain, medicated per eMAR. This note was completed by: Manoj Saavedra [facility] NURSING PROG HNO ID: [id number] Author: Elma Ness RN Service: Nursing Author [...] to report any s/s and continue fluids. [facility] CONSULT PROGon 06-08-2022 CONSULT PROG HNO ID: [id number] Author: Stefanie Solorzano APRN.DIRECTOR BLOOD BANK Service: Gastroenterology Author Type: Nurse Practitioner Type: [...] Distance health visit -- she resides in [place]. Having recurrent pancreatitis since having CCY in [...] appointments with GI and hepatobiliary practices at [facility]. She was seen by Dr Guillen 04/02/22 who (more content not included)... Normal [facility] CT PANCREAS W IVCONon 2021 CT PANCREAS W IVCON * * *Final Report* * * DATE OF EXAM: Jun 08 2022 3:56PM [facility] 0552 - CT PANCREAS W IVCON / [...] previously. Bones/Soft Tissues: No acute osseous findings. Senior Occupational Therapist (topogram images): No additional findings. IMPRESSION: Redemonstration [...] be communicated with the ordering provider via [employer] staff message by [employer] within 2 business days of report finalization. Transcribed Using Voice Recognition Transcribe Date/Time: Jun 08 2022 4:22P Dictated by: KRISTEN SHORT MD This examination was interpreted and the report reviewed and electronically signed by: KRISTEN SHORT MD on Jun 08 2022 4:48PM EST [id number] [id number] Invalid Interpretation Code [facility] NURSING PROGon 06-08-2022 NURSING PROG HNO ID: [id number] Author: Cathy Carter RN Service: ? Author Type: Registered Nurse Type: Nursing Progress Note Filed: 06/08/2022 7:29 PM Note Text: Other: 1600: Assumed care of pt. AANDOx3. Pt in stable condition. VSS. No needs at this time. Safety maintained. Normal [facility] NURSING PROG HNO ID: [id number] Author: Farnaz Justice RN Service: ? Author [...] be sleeping. No signs of distress. Normal [facility] CBC panel Auto (Bld)on 06-07 Erythrocyte distribution width (RBC) [Ratio] 13.3 % Normal 11.5-15.0 [facility] Comment on above: Order Comment: Agata adkins Type: BLOOD SPECIMEN [facility] Address: [address] [place] [address] Performed By: #### 5 8410-2 #### [facility] CLIA [id number] [address] [place] [address] [place] Hematocrit (Bld) [Volume fraction] 34.3 % Low 36.0-46.0 [facility] Comment on above: Order Comment: Speci men Type: BLOOD SPECIMEN [facility] Address: [address] [place] [address] Performed By: #### 5 8410-2 #### [facility] CLIA [id number] [address] [place] [address] [place] Hemoglobin (Bld) [Mass/Vol] 11.1 g/dL Low 11.5-15.5 [facility] Comment on above: Order Comment: Speci men Type: BLOOD SPECIMEN [facility] Address: [address] [place] [address] Performed By: #### 5 8410-2 #### [facility] CLIA [id number] [address] [place] [address] [place] MCH (RBC) [Entitic mass] 29.8 pg Normal 26.0-34.0 [facility] Comment on above: Order Comment: Speci men Type: BLOOD SPECIMEN [facility] Address: [address] [place] [address] Performed By: #### 5 8410-2 #### [facility] CLIA [id number] [address] [place] [address] [place] MCHC (RBC) [Mass/Vol] 32.4 g/dL Normal 30.5-36.0 [facility] Comment on above: Order Comment: Speci men Type: BLOOD SPECIMEN [facility] Address: [address] [place] [address] Performed By: #### 5 8410-2 #### [facility] CLIA [id number] [address] [place] [address] [place] MCV (RBC) [Entitic vol] 92.0 fL Normal 80.0-100.0 [facility] Comment on above: Order Comment: Speci men Type: BLOOD SPECIMEN [facility] Address: [address] [place] [address] Performed By: #### 5 8410-2 #### [facility] CLIA [id number] [address] [place] [address] [place] Nucleated RBC (Bld) [#/Vol] 10*3/uL Normal <0.01 [facility] Comment on above: Order Comment: Speci men Type: BLOOD SPECIMEN [facility] Address: [address] [place] [address] Performed By: #### 5 8410-2 #### [facility] CLIA [id number] [address] [place] [address] [place] Platelet mean volume (Bld) [Entitic vol] 9.8 fL Normal 9.0-12.7 [facility] Comment on above: Order Comment: Speci men Type: BLOOD SPECIMEN [facility] Address: [address] [place] [address] Performed By: #### 5 8410-2 #### [facility] CLIA [id number] [address] [place] [address] [place] Platelets (Bld) [#/Vol] 213 10*3/uL Normal 150-400 [facility] Comment on above: Order Comment: Speci men Type: BLOOD SPECIMEN [facility] Address: [address] [place] [address] Performed By: #### 5 8410-2 #### [facility] CLIA [id number] [address] [place] [address] [place] RBC (Bld) [#/Vol] 3.73 10*6/uL Low 3.90-5.20 [facility] Comment on above: Order Comment: Speci men Type: BLOOD SPECIMEN [facility] Address: [address] [place] [address] Performed By: #### 5 8410-2 #### [facility] CLIA [id number] [address] [place] [address] [place] WBC (Bld) [#/Vol] 7.22 10*3/uL Normal 3.70-11.00 [facility] Comment on above: Order Comment: Speci men Type: BLOOD SPECIMEN [facility] Address: [address] [place] [address] Performed By: #### 5 8410-2 #### [facility] CLIA [id number] [address] [id number] [place] CONSULTon 06-07-2022 CONSULT HNO ID: [id number] Author: Vicky Whaley MD Service: Gastroenterology Author [...] use: Yes MEDICATIONS: Prior to Admission Medications: kuxvrf-sqzvunyx-btwnuxi (CREON) 36,000-114,000- 180,000 unit delayed release capsule, [...] BAQSIMI 3 mg/actuation nasal spray, Use 1 [place] in the nose as needed., Disp: , [...] PRN prom (more content not included)... Normal [facility] Comprehensive metabolic 2000 panelon 06-07-2022 Albumin [Mass/Vol] 3.2 g/dL Low 3.9-4.9 [facility] Comment on above: Order Comment: Speci men Type: BLOOD SPECIMEN [facility] Address: [address] Performed By: #### 3 040-3, 52240-0 #### [facility] CLIA [id number] [address] [place] [address] [place] ALP [Catalytic activity/Vol] 72 U/L Normal 34-123 [facility] Comment on above: Order Comment: Speci men Type: BLOOD SPECIMEN [facility] Address: [place] [address] Performed By: #### 3 040-3, #### [facility] CLIA [id number] [address] [place] [address] [place] ALT [Catalytic activity/Vol] 14 U/L Normal 7-38 [facility] Comment on above: Order Comment: Speci men Type: BLOOD SPECIMEN [facility] Address: [facility] [place] [address] Performed By: #### 3 -3, #### [facility] CLIA [id number] [address] [place] [address] [place] Anion gap [Moles/Vol] 8 mmol/L Low 9-18 [facility] Comment on above: Order Comment: Speci men Type: BLOOD SPECIMEN [facility] Address: [facility] [place] [address] Performed By: #### 3 -3, #### [facility] CLIA [id number] [address] [place] [address] [place] AST [Catalytic activity/Vol] 18 U/L Normal 13-35 [facility] Comment on above: Order Comment: Speci men Type: BLOOD SPECIMEN [facility] Address: [facility] [place] [address] Performed By: #### 3 040-3, #### [facility] CLIA [id number] [address] [place] [address] [place] Bilirubin [Mass/Vol] 0.2 mg/dL Normal 0.2-1.3 [facility] Comment on above: Order Comment: Speci men Type: BLOOD SPECIMEN [facility] Address: [address] Performed By: #### 3 040-3, #### [facility] CLIA [id number] [address] [place] [address] [place] Calcium [Mass/Vol] 8.4 mg/dL Low 8.5-10.2 [facility] Comment on above: Order Comment: Speci men Type: BLOOD SPECIMEN [facility] Address: [address] [facility] [place] [address] Performed By: #### 3 040-3, #### [facility] CLIA [id number] [address] [place] [address] [place] Chloride [Moles/Vol] 107 mmol/L High 97-105 [facility] Comment on above: Order Comment: Speci men Type: BLOOD SPECIMEN [facility] Address: [address] [address] Performed By: #### 3 040-3, 74429-7 #### [facility] CLIA [id number] [address] [place] [address] [place] CO2 [Moles/Vol] 21 mmol/L Low 22-30 [facility] Comment on above: Order Comment: Speci men Type: BLOOD SPECIMEN Ordering Facility: [facility] Address: [address] Performed By: #### 3 040-3, 92494-2 #### [facility] CLIA [id number] [address] [place] [address] [place] Creatinine [Mass/Vol] 0.57 mg/dL Low 0.58-0.96 [facility] Comment on above: Order Comment: Speci men Type: BLOOD SPECIMEN Ordering Facility: [facility] Address: [address] Performed By: #### 3 040-3, 56317-7 #### [facility] CLIA [id number] [address] [place] [address] [place] ESTIMATED GLOMERULAR FILTRATION RATE 122 mL/min/1.73m??? Normal >=60 [facility] Comment on above: Order Comment: Agata adkins Type: BLOOD SPECIMEN Ordering Facility: [facility] Address: [address] [place] [address] Result Comment: [facility] Glomerular Filtration Rate (eGFR) is calculated using [...] actual GFR. Performed By: #### 3 040-3, 87518-3 #### [facility] CLIA [id number] [address] [place] [address] [place] Glucose [Mass/Vol] 105 mg/dL High 74-99 [facility] Comment on above: Order Comment: Agata adkins Type: BLOOD SPECIMEN Ordering Facility: [facility] Address: [address] [place] [address] Result Comment: The [place] Diabetes Association (ADA) provides guidance for cutoff [...] Standards of Medical Care in Diabetes 2016, [place] Diabetes Association. Diabetes Care. 2016.39(Suppl 1). Performed By: #### 3 040-3, 32434-2 #### [facility] CLIA [id number] [address] [place] [address] [place] Potassium [Moles/Vol] 4.1 mmol/L Normal 3.7-5.1 [facility] Comment on above: Order Comment: Speci men Type: BLOOD SPECIMEN Ordering Facility: [facility] Address: [facility] [place] [address] Performed By: #### 3 040-3, 95881-7 #### [facility] CLIA [id number] [address] [place] [address] [place] Protein [Mass/Vol] 6.0 g/dL Low 6.3-8.0 [facility] Comment on above: Order Comment: Speci men Type: BLOOD SPECIMEN Ordering Facility: [facility] Address: [address] [place] [address] Performed By: #### 3 040-3, 11508-2 #### [facility] CLIA [id number] [address] [place] [address] [place] Sodium [Moles/Vol] 136 mmol/L Normal 136-144 [facility] Comment on above: Order Comment: Speci men Type: BLOOD SPECIMEN Ordering Facility: [facility] Address: [address] [place] [address] Performed By: #### 3 040-3, 69216-6 #### [facility] CLIA [id number] [address] [place] [address] [place] Urea nitrogen [Mass/Vol] 12 mg/dL Normal 7-21 [facility] Comment on above: Order Comment: Speci men Type: BLOOD SPECIMEN Ordering Facility: [facility] Address: [address] [place], [place] [address] Performed By: #### 3 040-3, 20740-8 #### [facility] CLIA [id number] [address] [place] [address] [place] Lipase SerPl-cCncon 06-07-20 22 Lipase [Catalytic activity/Vol] 4 U/L Low 16-61 [facility] Comment on above: Order Comment: Speci men Type: BLOOD SPECIMEN Ordering Facility: [facility] Address: [address] [place] [address] Performed By: #### 3 040-3, 99328-8 #### [facility] CLIA [id number] [address] OF [facility] NURSING PROGon 06-07-2022 NURSING PROG HNO ID: [id number] Author: Ligia Britton RN Service: Nursing Author [...] on and functioning. Will continue to monitor. [facility] NURSING PROG HNO ID: [id number] Author: Mckayla Perez RN Service: Nursing Author [...] this time. Call light is within reach. [facility] NUTRITIONon 06-07-2022 NUTRITION HNO ID: [id number] Author: Lupis Sanchez RD Service: Nutrition Therapy [...] condition;Patient/family self-report;Weight loss;Intake records Estimated kilocalorie needs: 6386-8372 Calorie Calculation Method: 30-35 kcals/kg Estimated protein [...] Question: Liquid Diet Answer: CLEAR LIQUID 06/07/22 0903 Anthropometrics: Height: 160 cm (5' 3 ) [...] pain Stool Amount: (N/A. 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 ANES POSTPROC EVALon 022 ANES POSTPROC EVAL HNO ID: [id number] Author: Yolie Bailey MD Service: Anesthesiology Author Type: Physician Type: Anesthesia Postprocedure Evaluation Filed: 06/06/2022 3:27 PM Note Text: POST ANESTHESIA EVALUATION NOTE : 1985 Procedure Summary Date: 06/06/22 Room / Location: [facility] Surgical Services Anesthesia Start: 0937 Anesthesia Stop: 110 Procedures: EGD - THERAPEUTIC, [...] care. Anesthesia Observations No Documentation SIGNATURE: Yolie Bialey MD PATIENT NAME: Julieth Spencer DATE: June 06, 2022 TIME: 3:27 PM CSN: [id number] Normal [facility] ANES PRE-OPon 06-06-2022 ANES PRE-OP HNO ID: [id number] Author: Yolie Bailey MD Service: Anesthesiology Author Type: Physician Type: Anesthesia Preprocedure Evaluation Filed: 06/06/2022 9:35 AM Note Text: ANESTHESIOLOGY DAY OF SURGERY NOTE : 1985 Procedure Information Date/Time: 06/06/22914 Scheduled providers: Vicky Whaley MD Procedures: EGD - THERAPEUTIC, EUS, OR TUBE INTERVENTIONS ERCP Location: [facility] Surgical Services Estimated body mass index [...] Pulse 66 06/06/22 0820 Resp 16 06/06/22 08 Temp 36.9 ?C (98.4 ?F) 06/06/22 08 SpO2 100 % 06/06/22 0820 Outpatient Medications as of 06/06/2022 Medication Sig - shmuui-miiairgp-neefoob (CREON) 36,000-114,000- 180,000 unit delayed release capsule [...] BAQSIMI 3 mg/actuation nasal spray Use 1 [place] in the nose as needed. - insulin [...] June 06, 2022 TIME: 9:31 AM CSN: [id number] Normal [facility] ERCPon 06-06-2022 ERCP [facility] Gastrointestinal Endoscopy Patient Name: Julieth Spencer Procedure Date: 06/06/2022 10:27 AM Date of : 1985 Admit Type: Outpatient Age: 36 Room: [address] Gender: Female Note Status: Finalized Attending [...] Anesthesia, Cefoxitin 2 G, Indomethacin 100 mg GA Complications: No immediate complications. 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 Surgical [...] extension sphincterotomy. Procedure Code(s): --- Professional --- 94352, Endoscopic retrograde cholangiopancreatography (ERCP); with placement of endoscopic stent into biliary or pancreatic duct, including pre- and post-dilation and guide wire passage, when performed, including sphincterotomy, when performed, each stent CPT copyright 2019 [place] Medical Association. All rights reserved. The codes documented in this report are preliminary and upon advanced solutions architect review may be revised to meet current compliance requirements. Attending Participation: I personally performed the entire procedure. Scope In: 10:29:39 AM Scope Out: 10:45:03 AM MD Vicky Esteban MD (more content not included)... Normal [facility] HISTORY PHYSICALon HISTORY PHYSICAL HNO ID: [id number] Author: Marita Oates MD Service: Hospital Medicine Author Type: Physician Type: HANDP Filed: 06/06/2022 8:58 PM Note Text: DEPARTMENT OF HOSPITAL MEDICINE HISTORY AND PHYSICAL EXAM SERVICE DATE: 06/06/2022 Code Status: Not on file SERVICE TIME: 4:47 PM Primary Care Physician: Nat Medina, DO NIGHT AND WEEKEND COVERAGE: [facility] COVERAGE: Patient admitted to [facility] From 0700 - 1629, please contact pager [phone] for patient issues. From 163 - [phone], please contact the Night Hospitalist on pager [phone] for patient issues. Subjective CHIEF COMPLAINT: HPI: [...] Alcohol use: Yes PRIOR TO ADMISSION MEDICATIONS: xbtlcn-wguxdizz-eevcsan (CREON) 36,000-114,000- 180,000 unit delayed release capsule, [...] BAQSIMI 3 mg/actuation nasal spray, Use 1 [place] in the nose as needed., Disp: , [...] Objective PHYS (more content not included)... Normal [facility] HISTORY PHYSICAL HNO ID: [id number] Author: Vicky Whaley MD Service: Gastroenterology Author [...] DATE: June 06, 2022 TIME: 9:28 AM [facility] NURSING PROGon 06-06-2022 NURSING PROG HNO ID: [id number] Author: Ligia Britton RN Service: Nursing Author [...] and functioning. Will continue to monitor. Normal [facility] NURSING PROG HNO ID: [id number] Author: Mckayla Perez RN Service: Nursing Author Type: Registered Nurse Type: Nursing Progress Note Filed: 06/06/2022 2:54 PM Note Text: Other: 1442: Patient arrived on unit from PACU. Patient's IV is patent. Patient denies pain at this time. Patient's vital signs stable. Patient denies any further needs at this time. Call light is within reach. Normal [facility] SARS-CoV-2 RNA Resp Ql DESIRE+p robeon 06-06-2022 SARS-CoV-2 (COVID-19) RNA DESIRE+probe Ql (Resp) SARS-CoV-2 (Agent of COVID-19) Not Detected by RT-PCR or equivalent method. Normal Not Detected [facility] Comment on above: Order Comment: Agata adkins Type: SWAB OF INTERNAL NOSE Ordering Facility: [facility] Address: [address] [place] [address] Result Comment: This test has been authorized by FDA under an Emergency Use Authorization (EUA). Performed By: #### 9 4500-6 #### [facility] CLIA [id number] [place] SURGICAL PATHOLOGYon 022 ADDENDUM 1: Normal [facility] Comment on above: Order Comment: Agata men Type: TISSUE SPECIMENOrdering Facility: [facility] Address: [address] [place] [address] Result Comment: At t he request of [...] been determined by the performing laboratory within [facility]???s Romie Amezcua Pathology and Laboratory Medicine [place] ([facility], [facility], [facility] or [facility]) in a manner consistent with CLIA requirements. [...] at 8:15 AM Performed By: #### S ####[facility] LAB[facility] [id number] [place] [id number] [facility] CASE REPORT Normal [facility] Comment on above: Order Comment: Speci men Type: TISSUE SPECIMENOrdering Facility: [facility] Address: [address] [place] [address] Result Comment: Surg [facility] Pathology Report Case: [id number] Authorizing Provider: Vicky Whaley MD Collected: 06/06/2022 10:43 AM Ordering Location: [facility] Received: 06/06/2022 11:51 AM Surgical Services Pathologist: Omar Linton MD Specimen: DUODENUM BIOPSY, Major Papilla Performed By: #### S ####[facility] [id number] [place] [id number] [facility] FINAL DIAGNOSIS Normal [facility] Comment on above: Order Comment: Speci men Type: TISSUE SPECIMENOrdering Facility: [facility] Address: [address] [place] [id number] Result Comment: A. D uodenum, major papilla, biopsy: - Duodenal mucosa with no diagnostic abnormality. - Immunohistochemical stains for IgG and IgG4 have been ordered and will be reported in an addendum. Performed By: #### S ####[facility]CLIA [id number] [address] [place] FINAL PERFORMING LAB Normal [facility] Comment on above: Order Comment: Speci men Type: TISSUE SPECIMENOrdering Facility: [facility] Address: [address] [place] [address] Result Comment: Diag nostic interpretation performed at [facility], [address] [place] [address] CLIA# [id number] Trim Carpenter: Sylvester Rios M.D. Performed By: #### S ####[facility]IA [id number] [address] [place] GROSS DESCRIPTION [facility] Comment on above: Order Comment: Speci men Type: TISSUE SPECIMENOrdering Facility: [facility] Address: [address] [place] [address] Result Comment: A. D UODENUM BIOPSY Received in formalin are multiple pieces of [place], soft tissue aggregating to 0.8 x 0.2 x 0.2 cm. Totally submitted in one cassette. NMP June 06, 2022 2:46 PM Gross examination performed at [facility], [address] [place] [address] Performed By: #### S ####[facility]IA [id number] [place] [address] [place] Upper EUSon 06-06-2022 Upper EUS [facility] Gastrointestinal Endoscopy Patient Name: Julieth Spencer Procedure Date: 06/06/2022 9:39 AM Date of : 1985 Admit Type: Outpatient Age: 36 Room: [address] Gender: Female Note Status: Finalized Attending [...] to procedure. Procedure Code(s): --- Professional --- 24305, Esophagogastroduodenosco py, flexible, transoral; with endoscopic ultrasound examination limited to the esophagus, stomach or duodenum, and adjacent structures CPT copyright 2019 [place] Medical Association. All rights reserved. The codes documented in this report are preliminary and upon advanced solutions architect review may be revised to meet current compliance requirements. Attending Participation: I personally performed the entire procedure. Scope In: 9:54:24 AM Scope Out: 10:06:24 AM MD Vicky Esteban MD 06/06/2022 10:27:07 AM This report has been signed electronically by Vicky Whaley MD Number of Addenda: 0 Note Initiated On: 06/06/2022 9:39 AM Estimated Blood Loss: Estimated blood loss was minimal. Normal [facility] Palliative Careon 05-11-2022 Palliative Care Diagnoses/Problems [...] tablet by mouth twice a day [place] [id number] UNIT Oral Capsule Delayed Release ParticlesPlease take 1 capsule with each meal three times a day [place] [id number] UNIT Oral Capsule Delayed Release ParticlesTAKE 1 [...] 05-08-2022 HbA1c (Bld) [Mass fraction] 6.0 % [facility] moziy Other Glucose - FINGER STICKon Glucose [Mass/Vol] 100 mg/dL [facility] moziy Other HbA1c (Bld) [Mass fraction]o n 05-08-2022 A1C HEMOGLOBIN [facility] moziy Other MICROALBUMIN/ CREATININE RAT IOon 05-08-2022 Albumin, Urine <3.0 Normal Not Estab. [facility] Comment on above: Performed By: #### M ALBCRL #### [facility] [address] [place] [address] [address] Louis Britton Albumin/ Creatinine Ratio <3 Normal 0-29 [facility] Comment on above: Result Comment: Norm al: 0 - 29 Moderately increased: 30 - 300 Severely increased: >300 Performed By: #### M ALBCRL #### [facility] [address] [place], [place] [address] Dr. Louis Britton Creatinine, Urine 87.0 mg/dL Normal Not Estab. [facility] Comment on above: Performed By: #### M ALBCRL #### [facility] [address] [place], [place] [address] Dr. Louis Britton LIPID PROFILEon 05-07-2022 CHOL-HDL RATIO NORM SEE BELOW Normal [facility] Comment on above: Result Comment: 3.3 - 4.4 LOW RISK 4.4 - 7.1 AVERAGE RISK 7.1 - 11.0 MODERATE RISK >11.0 HIGH RISK Performed By: #### C MP, LIPID #### [facility] [address] [place] [address] [address] Louis Britton Cholesterol [Mass/Vol] 159 mg/dL Normal <=200 [facility] Comment on above: Performed By: #### C MP, LIPID #### [facility] [address] [place] [address] [address] Louis Britton Cholesterol in HDL [Mass/Vol] 57 mg/dL Normal 40-60 [facility] Comment on above: Performed By: #### C MP, LIPID #### [facility] [address] [place] [address] [address] Louis Britton Cholesterol in LDL [Mass/Vol] 76.6 mg/dL Normal [facility] Comment on above: Performed By: #### C MP, LIPID #### [facility] [address] [place] [address] [address] Louis Britton Cholesterol.total/Cho lesterol in HDL [Mass ratio] 2.8 {ratio} Normal [facility] Comment on above: Performed By: #### C MP, LIPID #### [facility] [address] [place] [address] Dr. Louis Britton HDL NORMAL > or = 60 mg/dl - LO W CARDIOVASCULAR RISK <40 mg/dl - HIGH CARDIOVASCULAR RISK Normal [facility] Comment on above: Performed By: #### C MP, LIPID #### [facility] [address] [place] [address] [address] Louis Britton LDL CALC NORMAL SEE BELOW Normal [facility] Comment on above: Result Comment: <100 mg/dl OPTIMAL 100 - 129 mg/dl NEAR OR ABOVE OPTIMAL 130 - 159 mg/dl BORDERLINE HIGH 160 - 189 mg/dl HIGH >190 mg/dl VERY HIGH Performed By: #### C MP, LIPID #### [facility] [address] [place] [address] [address] Louis Britton Triglyceride [Mass/Vol] 127 mg/dL Normal <=150 [facility] Comment on above: Performed By: #### C MP, LIPID #### [facility] [address] [place] [address] [address] Louis Britton VLDL CALC 25.4 mg/dL Normal [facility] Comment on above: Performed By: #### C MP, LIPID #### [facility] [address] [place] [address] [address] Louis Britton PROF 14(COMP METB)on 022 Albumin [Mass/Vol] 3.1 g/dL Critically low 3.4-5.0 Th e [facility] Comment on above: Performed By: #### C MP, LIPID #### [facility] [address] [place] [address] [address] Louis Britton Albumin/Globulin [Mass ratio] 0.9 {ratio} Normal [facility] Comment on above: Performed By: #### C MP, LIPID #### [facility] [address] [place] [address] Dr. Louis Britton ALP [Catalytic activity/Vol] 66 U/L Normal 46-116 [facility] Comment on above: Performed By: #### C MP, LIPID #### [facility] [address] [place] [address] [address] Louis Britton ALT [Catalytic activity/Vol] 21 U/L Normal 14-59 [facility] Comment on above: Performed By: #### C MP, LIPID #### [facility] [address] [place] [address] [address] Louis Britton Anion gap [Moles/Vol] 9.5 mmol/L Normal [facility] Comment on above: Performed By: #### C MP, LIPID #### [facility] [address] [place] [address] [address] Louis Britton AST [Catalytic activity/Vol] 28 U/L Normal 15-37 [facility] Comment on above: Performed By: #### C MP, LIPID #### [facility] [address] [place] [address] [address] Louis Brittno Bilirubin [Mass/Vol] 0.4 mg/dL Normal 0.2-1.0 [facility] Comment on above: Performed By: #### C MP, LIPID #### [facility] [address] [place] [address] [address] Louis Britton Calcium [Mass/Vol] 8.6 mg/dL Normal 8.5-10.1 [facility] Comment on above: Performed By: #### C MP, LIPID #### [facility] [address] [place] [address] [address] Louis Britton Chloride [Moles/Vol] 104 mmol/L Normal 98-107 [facility] Comment on above: Performed By: #### C MP, LIPID #### [facility] [address] [place] [address] [address] Louis Britton CO2 [Moles/Vol] 28.8 mmol/L Normal 21.0-32.0 [facility] Comment on above: Performed By: #### C MP, LIPID #### [facility] [address] [place] [address] [address] Louis Britton Creatinine [Mass/Vol] 0.79 mg/dL Normal 0.55-1.02 [facility] Comment on above: Performed By: #### C MP, LIPID #### [facility] [address] [place] [address] [address] Louis Britton EGFR-AF CROATIAN >60 Normal >=60 [facility] Comment on above: Performed By: #### C MP, LIPID #### [facility] [address] [place] [address] [address] Louis Britton EGFR-NON AF CROATIAN >60 Normal >=60 [facility] Comment on above: Performed By: #### C MP, LIPID #### [facility] [address] [place] [address] [address] Louis Britton Globulin (S) [Mass/Vol] 3.5 g/dL Normal [facility] Comment on above: Performed By: #### C MP, LIPID #### [facility] [address] [place] [address] [address] Louis Britton Glucose [Mass/Vol] 158 mg/dL Critically high 74-106 [facility] Comment on above: Performed By: #### C MP, LIPID #### [facility] [address] [place] [address] [address] Louis Britton Potassium [Moles/Vol] 4.3 mmol/L Normal 3.5-5.1 [facility] Comment on above: Performed By: #### C MP, LIPID #### [facility] [address] [place] [address] [address] Louis Britton Protein [Mass/Vol] 6.6 g/dL Normal 6.4-8.2 [facility] Comment on above: Performed By: #### C MP, LIPID #### [facility] [address] [place] [address] [address] Louis Britton Sodium [Moles/Vol] 138 mmol/L Normal 136-145 [facility] Comment on above: Performed By: #### C MP, LIPID #### [facility] [address] [place] [address] [address] Louis Britton Urea nitrogen [Mass/Vol] 10.0 mg/dL Normal 7.0-18.0 [facility] Comment on above: Performed By: #### C MP, LIPID #### [facility] [address] [place] [address] [address] Louis Britton Urea nitrogen/Creatinine [Mass ratio] 12.7 mg/mg Normal [facility] Comment on above: Performed By: #### C MP, LIPID #### [facility] [address] [place] [address] [address] Louis Britton Office Visit (Oncology Surge [...] week then stop Chronic pancreatitis Continue: Creon [id number] UNIT Oral Capsule Delayed Release Particles; Please [...] by mouth twice a day Continue: Creon [id number] UNIT Oral Capsule Delayed Release Particles; TAKE [...] acute on chronic pancreatitis History of Present [id number] with history of kvotp-qa-jwjvrgw pancreatitis starting around 3 years ago after [...] pancreatitis, Chronic pancreatitis, unspecified pancreatitis type Creon [id number] UNIT Oral Capsule Delayed Release ParticlesPlease take 1 capsule with each meal three times a dayChronic (more content not included)... Normal [employer] Tobacco Screening.on 022 Fall risk assessment a) No falls within the last year Melchor Oconnor [facility] Work Phone: Tobacco use status [facility] a) Yes [facility] Work Phone: MRI Pancreas w/wo Contraston 03-08-2022 MR Pancreas WO and W contrast IV Normal [facility] [facility] Work Phone: No Panel Informationon 02-23 Please click on the link to view the study images Normal VR-Xxncruzy-T [facility] [address] Work Phone: No Panel Informationon 02-19 [email or web address] MG-Gastroente rology-[place] [facility] Work Phone: MG-Gastroente rology-[place] I Work Phone: Please click on the link to view the study images Normal MG-Gastroente don-[place] I Work Phone: [facility]on SARS-CoV-2 (COVID-19) RNA DESIRE+probe Ql (Unsp spec) Not detected Normal NOT DETECTED [facility] Comment on above: Result Comment: This test is not yet approved or cleared by the [place] FDA. When there are no FDA-approved or cleared tests available, and other criteria are met, FDA can make tests available under an emergency access mechanism called an Emergency Use Authorization (EUA). The EUA for this test is supported by the Head [place] of Health and Human Service's (HHS's) declaration [...] Performed By: #### C MP, LIPID #### [facility] [address] [place] [address] Dr. Louis Britton Laboratory - Chemistry and C hemistry - challengeon 01-22-2022 Glucose [Mass/Vol] 269 mg/dL above high threshold 74 - 99 MG-Gastroente rology-[place] [facility] Work Phone: Glucose [Mass/Vol] 124 mg/dL above high threshold 74 - 99 MG-Gastroente rology-[place] I Work Phone: Complete Blood Count + Diffe rentialon 01-21-2022 Basophils/100 WBC (Bld) 0.7 % 0.0 - 2.0 MG-Gastroente roly-[facility] Work Phone: Erythrocyte distribution width (RBC) [Ratio] 13.2 % See Below MG-Gastroente roly-[place] [facility] Work Phone: Comment on above: Reference Range: 11. 5 - 14.5 Hematocrit (Bld) [Volume fraction] 36.8 % See Below MG-Gastroente rology-[place] I Work Phone: Comment on above: Reference Range: 36. 0 - 46.0 Hemoglobin (Bld) [Mass/Vol] 10.9 g/dL below low threshold See Below MG-Gastroente rology-[place] [facility] Work Phone: Comment on above: Reference Range: 12. 0 - 16.0 Lymphocytes/100 WBC (Bld) 51.5 % See Below MG-Gastroente rology-[place] [facility] Work Phone: Comment on above: Reference Range: 13. 0 - 44.0 MCHC (RBC) [Mass/Vol] 29.6 g/dL below low threshold See Below MG-Gastroente rology-[place] [facility] Work Phone: Comment on above: Reference Range: 32. 0 - 36.0 MCV (RBC) [Entitic vol] 107 fL above high threshold 80 - 100 MG-Gastroente charlesy-[place] [facility] Work Phone: Monocytes/100 WBC (Bld) 7.1 % 2.0 - 10.0 MG-Gastroente don-[place] [facility] Work Phone: Neutrophils/100 WBC (Bld) 39.4 % See Below MG-Gastroente shaileshogy-[place] [facility] Work Phone: Comment on above: Reference Range: 40. 0 - 80.0 Platelets (Bld) [#/Vol] 303 10*3/uL 150 - 450 MG-Gastroente charlesy-[place] [facility] Work Phone: RBC (Bld) [#/Vol] 3.45 {x10E12/L} below low threshold See Below MG-Gastroente charlesy-[facility] Work Phone: Comment on above: Reference Range: 4.0 0 - 5.20 WBC (Bld) [#/Vol] 7.6 10*3/uL 4.4 - 11.3 MG-Gas troente don-[facility] Work Phone: Complete Blood Count + Differential 0.05 {x10E9/L} See Below MG-Gastroente shaileshy-[facility] Work Phone: Comment on above: Reference Range: 0.0 0 - 0.10 Complete Blood Count + Differential 0.09 {x10E9/L} See Below MG-Gastroente charlesy-[place] [facility] Work Phone: Comment on above: Reference Range: 0.0 0 - 0.70 Complete Blood Count + Differential 0.54 {x10E9/L} See Below MG-Gastroente shaileshogy-[place] [facility] Work Phone: Comment on above: Reference Range: 0.1 0 - 1.00 Complete Blood Count + Differential 3.91 {x10E9/L} See Below MG-Gastroente rology-[place] I Work Phone: Comment on above: Reference Range: 1.2 0 - 4.80 Complete Blood Count + Differential 2.99 {x10E9/L} See Below MG-Gastroente rology-[place] I Work Phone: Comment on above: Reference Range: 1.2 0 - 7.70 Complete Blood Count + Differential 1.2 % 0.0 - 6.0 MG-Gastroente rology-[place] I Work Phone: Complete Blood Count + Differential 0.1 % 0.0 - 0.9 MG-Gastroente rology-[place] I Work Phone: Comment on above: Immature Granulocyte Count (IG) includes promyelocytes, myelocytes and metamyelocytes but does not include bands. Percent differential counts (%) should be interpreted in the context of the absolute cell counts (cells/L). Complete Blood Count + Differential 0.3 {/100_WBC} 0.0-0.0 MG-Gastroente rology-[place] [facility] Work Phone: Laboratory - Chemistry and C hemistry - challengeon 01-21-2022 Glucose [Mass/Vol] 199 mg/dL above high threshold 74 - 99 MG-Gastroente rology-[place] I Work Phone: Glucose [Mass/Vol] 175 mg/dL above high threshold 74 - 99 MG-Gastroente rology-[place] I Work Phone: Glucose [Mass/Vol] 133 mg/dL above high threshold 74 - 99 MG-Gastroente rology-[place] I Work Phone: Glucose [Mass/Vol] 261 mg/dL above high threshold 74 - 99 MG-Gastroente rology-[place] I Work Phone: Renal Function Panelon 01-21 Albumin BCP dye [Mass/Vol] 3.5 g/dL 3.4 - 5.0 MG-Gastroente rology-[place] I Work Phone: Anion gap [Moles/Vol] 11 mmol/L 10 - 20 [facility] Work Phone: Calcium [Mass/Vol] 9.0 mg/dL 8.6 - 10.6 MG-Gas troente [facility] Work Phone: Chloride [Moles/Vol] 100 mmol/L 98 - 107 MG-G astroente [facility] Work Phone: CO2 [Moles/Vol] 30 mmol/L 21 - 32 MG-Gastro ente [facility] Work Phone: Creatinine [Mass/Vol] 0.66 mg/dL See Below MG- Gastroente [facility] Work Phone: Comment on above: Reference Range: 0.5 0 - 1.05 Glucose [Mass/Vol] 88 mg/dL 74 - 99 [facility] Work Phone: Phosphate [Mass/Vol] 4.1 mg/dL 2.5 - 4.9 MG-G domoente [facility] Work Phone: Comment on above: [...] 4.3 mmol/L 3.5 - 5.3 [facility] Work Phone: Comment on above: MILD HEMOLYSIS DETEC GREGOR. The result may be falsely elevated due tohemolysis or other interferents. Clinical correlation is recommended.Repeat testing may be considered. Sodium [Moles/Vol] 137 mmol/L 136 - 145 MG-Gas troente rology-[place] [facility] Work Phone: Urea nitrogen [Mass/Vol] 7 mg/dL 6 - 23 MG-Gastroente rology-[place] [facility] Work Phone: Renal Function Panel >90 >90 MG-G astroente rology-[facility] Work Phone: Comment on above: CALCULATIONS OF LEIDY MATED GFR ARE PERFORMED USING THE 2020 CKD-EPI STUDY REFIT EQUATION WITHOUT THE RACE VARIABLE FOR THE IDMS-TRACEABLE CREATININE METHODS.https://jasn.asnjournals.org/content// N.8432879994 Laboratory - Chemistry and C hemistry - challengeon 01-20-2022 Glucose [Mass/Vol] 189 mg/dL above high threshold 74 - 99 MG-Gastroente rology-[place] [facility] Work Phone: Glucose [Mass/Vol] 174 mg/dL above high threshold 74 - 99 MG-Gastroente rology-[place] [facility] Work Phone: Glucose [Mass/Vol] 172 mg/dL above high threshold 74 - 99 MG-Gastroente rology-[place] [facility] Work Phone: Glucose [Mass/Vol] 150 mg/dL above high threshold 74 - 99 MG-Gastroente rology-[place] [facility] Work Phone: Glucose [Mass/Vol] 84 mg/dL 74 - 99 MG-Gas troente rology-[place] [facility] Work Phone: Glucose [Mass/Vol] 118 mg/dL above high threshold 74 - 99 MG-Gastroente rology-[place] [facility] Work Phone: Glucose [Mass/Vol] 57 mg/dL below low threshold 74 - 99 MG-Gastroente rology-[place] I Work Phone: Laboratory - Chemistry and C hemistry - challengeon 01-19-2022 Glucose [Mass/Vol] 72 mg/dL below low threshold 74 - 99 MG-Gastroente shaileshy-[place] [facility] Work Phone: Glucose [Mass/Vol] 335 mg/dL above high threshold 74 - 99 MG-Gastroente rology-[place] I Work Phone: Glucose [Mass/Vol] 336 mg/dL above high threshold 74 - 99 MG-Gastroente rology-[place] [facility] Work Phone: Glucose [Mass/Vol] 181 mg/dL above high threshold 74 - 99 MG-Gastroente rology-[place] [facility] Work Phone: Glucose [Mass/Vol] 121 mg/dL above high threshold 74 - 99 MG-Gastroente rology-[place] [facility] Work Phone: Laboratory - Hematology and Cell countson 01-19-2022 Erythrocyte distribution width (RBC) [Ratio] 13.2 % See Below MG-Gastroente shaileshy-[place] [facility] Work Phone: Comment on above: Reference Range: 11. 5 - 14.5 Hematocrit (Bld) [Volume fraction] 37.2 % See Below MG-Gastroente shaileshy-[place] [facility] Work Phone: Comment on above: Reference Range: 36. 0 - 46.0 Hemoglobin (Bld) [Mass/Vol] 11.6 g/dL below low threshold See Below MG-Gastroente shaileshy-[place] [facility] Work Phone: Comment on above: Reference Range: 12. 0 - 16.0 MCHC (RBC) [Mass/Vol] 31.2 g/dL below low threshold See Below MG-Gastroente rology-[place] [facility] Work Phone: Comment on above: Reference Range: 32. 0 - 36.0 MCV (RBC) [Entitic vol] 101 fL above high threshold 80 - 100 MG-Gastroente roly-[place] [facility] Work Phone: Platelets (Bld) [#/Vol] 247 10*3/uL 150 - 450 MG-Gastroente rology-[place] [facility] Work Phone: RBC (Bld) [#/Vol] 3.69 {x10E12/L} below low threshold See Below MG-Gastroente rology-[place] [facility] Work Phone: Comment on above: Reference Range: 4.0 0 - 5.20 WBC (Bld) [#/Vol] 2.3 10*3/uL below low threshold 4.4 - 11.3 [facility] [facility] Work Phone: Magnesium, Serumon 2 Magnesium [Mass/Vol] 1.62 mg/dL See Below [facility] Work Phone: Comment on above: Reference Range: 1.6 0 - 2.40 No Panel Informationon 01-19 0.0 {/100_WBC} 0.0-0.0 MG-Gastroe nte [facility] Work Phone: Renal Function Panelon 01-19 Albumin BCP dye [Mass/Vol] 3.5 g/dL 3.4 - 5.0 [facility] Work Phone: Anion gap [Moles/Vol] 14 mmol/L 10 - 20 [facility] Work Phone: Calcium [Mass/Vol] 9.0 mg/dL 8.6 - 10.6 MG-Gas troente [facility] Work Phone: Chloride [Moles/Vol] 100 mmol/L 98 - 107 MG[facility] Work Phone: CO2 [Moles/Vol] 26 mmol/L 21 - 32 MG-Gastro ente [facility] Work Phone: Creatinine [Mass/Vol] 0.76 mg/dL See Below MG- Gastroente rology-[place] [facility] Work Phone: Comment on above: Reference Range: 0.5 0 - 1.05 Glucose [Mass/Vol] 277 mg/dL above high threshold 74 - 99 MG-Gastroente rology-[place] I Work Phone: Phosphate [Mass/Vol] 4.1 mg/dL 2.5 - 4.9 MG-G astroente rology-[place] I Work Phone: Comment on above: The performance carmen acteristics of phosphorus testing in heparinized plasma have been validated by the individual laboratory site where testing is performed. Testing on heparinized plasma is not approved by the FDA; however, such approval is not necessary. Potassium [Moles/Vol] 4.2 mmol/L 3.5 - 5.3 MG- Gastroente rology-[place] [facility] Work Phone: Sodium [Moles/Vol] 136 mmol/L 136 - 145 MG-Gas troente rology-[place] [facility] Work Phone: Urea nitrogen [Mass/Vol] 3 mg/dL below low threshold 6 - 23 MG-Gastroente rology-[place] [facility] Work Phone: Renal Function Panel >90 >90 MG-G astroente rology-[place] [facility] Work Phone: Comment on above: CALCULATIONS OF LEIDY MATED GFR ARE PERFORMED USING THE 2020 CKD-EPI STUDY REFIT EQUATION WITHOUT THE RACE VARIABLE FOR THE IDMS-TRACEABLE CREATININE METHODS.https://jasn.asnjournals.org/content// N.[id number] Laboratory - Chemistry and C hemistry - challengeon 01-18-2022 Glucose [Mass/Vol] 89 mg/dL 74 - 99 MG-Gas troente rology-[place] [facility] Work Phone: Glucose [Mass/Vol] 110 mg/dL above high threshold 74 - 99 MG-Gastroente rology-[place] [facility] Work Phone: Glucose [Mass/Vol] 145 mg/dL above high threshold 74 - 99 MG-Gastroente rology-[place] I Work Phone: Glucose [Mass/Vol] 121 mg/dL above high threshold 74 - 99 MG-Gastroente rology-[place] [facility] Work Phone: Glucose [Mass/Vol] 77 mg/dL 74 - 99 MG-Gas troente rology-[place] [facility] Work Phone: Glucose [Mass/Vol] 189 mg/dL above high threshold 74 - 99 MG-Gastroente rology-[place] [facility] Work Phone: Glucose [Mass/Vol] 48 mg/dL below low threshold 74 - 99 MG-Gastroente rology-[place] [facility] Work Phone: Glucose [Mass/Vol] 68 mg/dL below low threshold 74 - 99 MG-Gastroente rology-[place] [facility] Work Phone: Magnesium, Serumon 2 Magnesium [Mass/Vol] 2.07 mg/dL See Below MG-G astroente rology-[place] [facility] Work Phone: Comment on above: Reference Range: 1.6 0 - 2.40 Renal Function Panelon 01-18 Albumin BCP dye [Mass/Vol] 3.1 g/dL below low threshold 3.4 - 5.0 MG-Gastroente rology-[place] [facility] Work Phone: Anion gap [Moles/Vol] 12 mmol/L 10 - 20 MG- Gastroente rology-[place] [facility] Work Phone: Calcium [Mass/Vol] 8.5 mg/dL below low threshold 8.6 - 10.6 MG-Gastroente rology-[place] [facility] Work Phone: Chloride [Moles/Vol] 103 mmol/L 98 - 107 MG-G astroente rology-[place] [facility] Work Phone: CO2 [Moles/Vol] 27 mmol/L 21 - 32 MG-Gastro ente shaileshogy-[place] I Work Phone: Creatinine [Mass/Vol] 0.55 mg/dL See Below MG- Gastroente rology-[place] [facility] Work Phone: Comment on above: Reference Range: 0.5 0 - 1.05 Glucose [Mass/Vol] 81 mg/dL 74 - 99 MG-Gas troente shaileshogy-[place] [facility] Work Phone: Phosphate [Mass/Vol] 3.7 mg/dL 2.5 - 4.9 MG-G astroente rology-[place] [facility] Work Phone: Comment on above: The performance carmen acteristics of phosphorus testing in heparinized plasma have been validated by the individual laboratory site where testing is performed. Testing on heparinized plasma is not approved by the FDA; however, such approval is not necessary. Potassium [Moles/Vol] 3.7 mmol/L 3.5 - 5.3 MG- Gastroente shaileshogy-[place] [facility] Work Phone: Sodium [Moles/Vol] 138 mmol/L 136 - 145 MG-Gas troente shaileshogy-[place] [facility] Work Phone: Urea nitrogen [Mass/Vol] 4 mg/dL below low threshold 6 - 23 MG-Gastroente shaileshogy-[place] [facility] Work Phone: Renal Function Panel >90 >90 MG-G astroente shaileshogy-[place] [facility] Work Phone: Comment on above: CALCULATIONS OF LEIDY MATED GFR ARE PERFORMED USING THE 2020 CKD-EPI STUDY REFIT EQUATION WITHOUT THE RACE VARIABLE FOR THE IDMS-TRACEABLE CREATININE METHODS.https://jasn.asnjournals.org/content/early/ N.[id number] URINALYSIS WITH CULTURE IF I NDICATEDon 01-18-2022 Color (U) COLORLESS See Below MG-Gastroente rology-[place] [facility] Work Phone: Comment on above: Reference Range: STR AW,YELLOW Glucose Ql (U) Negative NEGATIVE MG-Gastroe nte [facility] Work Phone: Ketones Ql (U) Negative NEGATIVE MG-Gastroe nte [facility] Work Phone: Leukocyte esterase Test strip Ql (U) Negative NEGATIVE [facility] [facility] Work Phone: pH (U) 8.0 [pH] 5.0 - 8.0 [facility] Work Phone: Protein (U) [Mass/Vol] Negative NEGATIVE [facility] Work Phone: RBC (U) [#/Vol] Negative NEGATIVE MG-Gastro ente [facility] Work Phone: Specific gravity (U) [Rel density] 1.006 1 See Below MG-Gastroente [facility] Work Phone: Comment on above: Reference Range: 1.0 05 - 1.035 URINALYSIS WITH CULTURE IF INDICATED Negative NEGATIVE MG-Gastroen te [facility] Work Phone: URINALYSIS WITH CULTURE IF INDICATED <2.0 0.0 - 1.9 MG-Gastroen te [facility] Work Phone: URINALYSIS WITH CULTURE IF INDICATED CLEAR CLEAR MG-Gastroen te [facility] Work Phone: Hepatic Function Panelon ALP [Catalytic activity/Vol] 66 U/L 33 - 110 [facility] Work Phone: ALT With P-5'-P [Catalytic activity/Vol] 16 U/L 7 - 45 [facility] Work Phone: Comment on above: Patients treated wit h Sulfasalazine may generate falsely decreased results for ALT. AST With P-5'-P [Catalytic activity/Vol] 24 U/L 9 - 39 MG-Gastroente [facility] Work Phone: Bilirubin [Mass/Vol] 0.4 mg/dL 0.0 - 1.2 MG-G astroente [facility] Work Phone: Bilirubin.direct [Mass/Vol] 0.1 mg/dL 0.0 - 0.3 MG-Gastroente [facility] Work Phone: Protein [Mass/Vol] 5.7 g/dL below low threshold 6.4 - 8.2 MG-Gastroente [facility] Work Phone: Laboratory - Chemistry and C hemistry - challengeon 01-17-2022 Glucose [Mass/Vol] 83 mg/dL 74 - 99 [facility] Work Phone: Glucose [Mass/Vol] 85 mg/dL 74 - 99 [facility] Work Phone: Glucose [Mass/Vol] 76 mg/dL 74 - 99 MG-Gas [facility] Work Phone: Glucose [Mass/Vol] 95 mg/dL 74 - 99 MG-Gas troente [facility] Work Phone: Glucose [Mass/Vol] 100 mg/dL above high threshold 74 - 99 [facility] Work Phone: Glucose [Mass/Vol] 95 mg/dL 74 - 99 [facility] Work Phone: Laboratory - Hematology and Cell countson 01-17-2022 Erythrocyte distribution width (RBC) [Ratio] 13.3 % See Below MG-Gastroente don-[place] I Work Phone: Comment on above: Reference Range: 11. 5 - 14.5 Hematocrit (Bld) [Volume fraction] 33.0 % below low threshold See Below MG-Gastroente charlesy-[place] I Work Phone: Comment on above: Reference Range: 36. 0 - 46.0 Hemoglobin (Bld) [Mass/Vol] 10.0 g/dL below low threshold See Below MG-Gastroente don-[place] [facility] Work Phone: Comment on above: Reference Range: 12. 0 - 16.0 MCHC (RBC) [Mass/Vol] 30.3 g/dL below low threshold See Below MG-Gastroente charlesy-[place] [facility] Work Phone: Comment on above: Reference Range: 32. 0 - 36.0 MCV (RBC) [Entitic vol] 103 fL above high threshold 80 - 100 MG-Gastroente don-[place] [facility] Work Phone: Platelets (Bld) [#/Vol] 195 10*3/uL 150 - 450 MG-Gastroente don-[place] [facility] Work Phone: RBC (Bld) [#/Vol] 3.20 {x10E12/L} below low threshold See Below MG-Gastroente don-[place] [facility] Work Phone: Comment on above: Reference Range: 4.0 0 - 5.20 WBC (Bld) [#/Vol] 5.1 10*3/uL 4.4 - 11.3 MG-Gas troente shaileshmanny-[facility] Work Phone: Magnesium, Serumon Magnesium [Mass/Vol] 1.66 mg/dL See Below MG-G astroente don-[place] [facility] Work Phone: Comment on above: Reference Range: 1.6 0 - 2.40 No Panel Informationon 01-17 0.0 {/100_WBC} 0.0-0.0 [facility] Work Phone: Renal Function Panelon 01-17 Albumin BCP dye [Mass/Vol] 3.2 g/dL below low threshold 3.4 - 5.0 MG-Gastroente rology-[place] [facility] Work Phone: Anion gap [Moles/Vol] 12 mmol/L 10 - 20 MG- Gastroente rology-[place] [facility] Work Phone: Calcium [Mass/Vol] 8.5 mg/dL below low threshold 8.6 - 10.6 MG-Gastroente rology-[place] [facility] Work Phone: Chloride [Moles/Vol] 106 mmol/L 98 - 107 [facility] Work Phone: CO2 [Moles/Vol] 26 mmol/L 21 - 32 [facility]astro [facility] Work Phone: Creatinine [Mass/Vol] 0.60 mg/dL See Below MG- Gastroente rology-[place] [facility] Work Phone: Comment on above: Reference Range: 0.5 0 - 1.05 Glucose [Mass/Vol] 86 mg/dL 74 - 99 MG-Gas tro[facility] Work Phone: Phosphate [Mass/Vol] 3.6 mg/dL 2.5 - 4.9 MG[facility] Work Phone: Comment on above: The performance carmen acteristics of phosphorus testing in heparinized plasma have been validated by the individual laboratory site where testing is performed. Testing on heparinized plasma is not approved by the FDA; however, such approval is not necessary. Potassium [Moles/Vol] 3.7 mmol/L 3.5 - 5.3 MG- Gastroente rology-[place] [facility] Work Phone: Sodium [Moles/Vol] 140 mmol/L 136 - 145 MG-Gas troente [place] [facility] Work Phone: Urea nitrogen [Mass/Vol] 5 mg/dL below low threshold 6 - 23 MG-Gastroente charlesy-[place] [facility] Work Phone: Renal Function Panel >90 >90 [facility] Work Phone: Comment on above: CALCULATIONS OF LEIDY MATED GFR ARE PERFORMED USING THE 2020 CKD-EPI STUDY REFIT EQUATION WITHOUT THE RACE VARIABLE FOR THE IDMS-TRACEABLE CREATININE METHODS.https://jasn.asnjournals.org/content/early/ N.8564875734 Coronavirus 2019 RNA by PCR, Screening Asymptomticon 01-16-2022 Coronavirus 2019 RNA by PCR, Screening Asymptomtic Not detected Normal See Below MG-Gastroente rology-Admin [place] [facility] Work Phone: Comment on above: SOURCE: Nasal, Nasop haryngealReference Range: Not Detected.This test has received FDA Emergency Use Authorization (EUA) and has been verified by [facility] ([facility]). This test is only authorized for the duration of time that circumstances exist to justify the authorization of the emergency use of in vitro diagnostic tests for the detection of SARS-CoV-2 virus and/or diagnosis of COVID-19 infection under section 564(b)(1) of the Act, 21 U.S.C. 360bbb-3(b)(1), unless the authorization is terminated or revoked sooner. [facility] is certified under CLIA-88 as qualified to perform high complexity testing. Testing is performed in the [facility] located at [address] [place] [address].SARS-CoV-2/Flu/RSV Multiplex Test: Fact sheet for providers: https://www.fda.gov/media/371892/downloadFact sheet for patients: https://www.fda.gov/media/258685/download Laboratory - Chemistry and C hemistry - challengeon 01-16-2022 Glucose [Mass/Vol] 84 mg/dL 74 - 99 MG-Gas troente rology-Admin [facility] Work Phone: Albumin BCP dye [Mass/Vol] 3.5 g/dL 3.4 - 5.0 MG-Gastroente rology-Admin [facility] Work Phone: ALP [Catalytic activity/Vol] 68 U/L 33 - 110 MG-Gastroente rology-Admin [facility] Work Phone: ALT With P-5'-P [Catalytic activity/Vol] 13 U/L 7 - 45 MG-Gastroente rology-Admin [facility] Work Phone: Comment on above: Patients treated wit h Sulfasalazine may generate falsely decreased results for ALT. Anion gap [Moles/Vol] 13 mmol/L 10 - 20 MG- Gastroente rology-Admin [facility] Work Phone: AST With P-5'-P [Catalytic activity/Vol] 17 U/L 9 - 39 MG-Gastroente rology-Admin [facility] Work Phone: Bilirubin [Mass/Vol] 0.5 mg/dL 0.0 - 1.2 MG-G astroente [facility]-Admin [facility] Work Phone: Calcium [Mass/Vol] 9.0 mg/dL 8.6 - 10.6 MG-Gas troente rology-Admin [facility] Work Phone: Chloride [Moles/Vol] 104 mmol/L 98 - 107 MG-G astroente rology-Admin [facility] Work Phone: [phone] CO2 [Moles/Vol] 25 mmol/L 21 - 32 MG-Gastro ente rology-Admin [facility] Work Phone: Creatinine [Mass/Vol] 0.62 mg/dL See Below MG- Gastroente rology-Admin [facility] Work Phone: Comment on above: Reference Range: 0.5 0 - 1.05 Glucose [Mass/Vol] 113 mg/dL above high threshold 74 - 99 MG-Gastroente rology-Admin [facility] Work Phone: Potassium [Moles/Vol] 3.8 mmol/L 3.5 - 5.3 MG- Gastroente rology-Admin [facility] Work Phone: Protein [Mass/Vol] 6.4 g/dL 6.4 - 8.2 MG-Gas troente rology-Admin [facility] Work Phone: [phone] Sodium [Moles/Vol] 138 mmol/L 136 - 145 MG-Gas troente rology-Admin [facility] Work Phone: Urea nitrogen [Mass/Vol] 8 mg/dL 6 - 23 MG-Gastroente rology-Admin [facility] Work Phone: [phone] Glucose [Mass/Vol] 195 mg/dL above high threshold 74 - 99 MG-Gastroente rology-Admin [facility] Work Phone: [phone] Glucose [Mass/Vol] 116 mg/dL above high threshold 74 - 99 MG-Gastroente rology-Admin [facility] Work Phone: Laboratory - Hematology and Cell countson 01-16-2022 Erythrocyte distribution width (RBC) [Ratio] 13.3 % See Below MG-Gastroente rology-Admin [facility] Work Phone: Comment on above: Reference Range: 11. 5 - 14.5 Hematocrit (Bld) [Volume fraction] 34.6 % below low threshold See Below MG-Gastroente rology-Admin [facility] Work Phone: Comment on above: Reference Range: 36. 0 - 46.0 Hemoglobin (Bld) [Mass/Vol] 11.0 g/dL below low threshold See Below MG-Gastroente rology-Admin [facility] Work Phone: Comment on above: Reference Range: 12. 0 - 16.0 MCHC (RBC) [Mass/Vol] 31.8 g/dL below low threshold See Below MG-Gastroente rology-Admin [place] [facility] Work Phone: Comment on above: Reference Range: 32. 0 - 36.0 MCV (RBC) [Entitic vol] 99 fL 80 - 100 MG-Gastroente rology-Admin [place] [facility] Work Phone: Platelets (Bld) [#/Vol] 219 10*3/uL 150 - 450 MG-Gastroente rology-Admin [place] I Work Phone: RBC (Bld) [#/Vol] 3.49 {x10E12/L} below low threshold See Below MG-Gastroente rology-Admin [place] [facility] Work Phone: Comment on above: Reference Range: 4.0 0 - 5.20 WBC (Bld) [#/Vol] 7.5 10*3/uL 4.4 - 11.3 MG-Gas troente rology-Admin [facility] Work Phone: Magnesium, Serumon 2 Magnesium [Mass/Vol] 1.76 mg/dL See Below MG-G astroente rology-Admin [facility] Work Phone: Comment on above: Reference Range: 1.6 0 - 2.40 No Panel Informationon 01-16 >90 >90 MG-Gastroente rology-Admin [place] [facility] Work Phone: Comment on above: CALCULATIONS OF LEIDY MATED GFR ARE PERFORMED USING THE 2020 CKD-EPI STUDY REFIT EQUATION WITHOUT THE RACE VARIABLE FOR THE IDMS-TRACEABLE CREATININE METHODS.https://jasn.asnjournals.org/content/early/ N.1957895841 0.0 {/100_WBC} 0.0-0.0 MG-Gastroe nte rology-Admin [facility] Work Phone: Please click on the link to view the study images Normal MG-Gastroente rology-[place] [facility] Work Phone: [email or web address]} MG-Gastroente rology-Admin [facility] Work Phone: MG-Gastroente rology-Admin [facility] Work Phone: COVID Quick Testingon 2021 Result Negative [facility] moziy Other Tobacco Screening.on 022 Fall risk assessment a) No falls within the last year FL-Nfccayrd-U [facility] [address] Work Phone: Tobacco use status CPHS a) Yes [facility] [address] Work Phone: Tobacco Screening. Yes MG-Med icine-C [facility] [address] Work Phone: A1C HEMOGLOBINon 12-11-2021 HbA1c (Bld) [Mass fraction] 5.8 % [facility] moziy Other Glucose - FINGER STICKon Glucose [Mass/Vol] 163 mg/dL [facility] moziy Other HbA1c (Bld) [Mass fraction]o n 12-11-2021 A1C HEMOGLOBIN [facility] moziy Other Laboratory - Chemistry and C hemistry - challengeon 11-01-2021 Glucose [Mass/Vol] 154 mg/dL above high threshold 74 - 99 [facility] [facility] Work Phone: Albumin BCP dye [Mass/Vol] 3.2 g/dL below low threshold 3.4 - 5.0 MG-Gastroente rology-[place] [facility] Work Phone: ALP [Catalytic activity/Vol] 69 U/L 33 - 110 MG-Gastroente rology-[place] [facility] Work Phone: ALT With P-5'-P [Catalytic activity/Vol] 13 U/L 7 - 45 MG-Gastroente rology-[place] [facility] Work Phone: Comment on above: Patients treated wit h Sulfasalazine may generate falsely decreased results for ALT. Anion gap [Moles/Vol] 11 mmol/L 10 - 20 MG- Gastroente rology-[place] [facility] Work Phone: AST With P-5'-P [Catalytic activity/Vol] 14 U/L 9 - 39 MG-Gastroente rology-[place] [facility] Work Phone: Bilirubin [Mass/Vol] 0.2 mg/dL 0.0 - 1.2 MG-[facility] Work Phone: Calcium [Mass/Vol] 8.5 mg/dL below low threshold 8.6 - 10.6 MG-Gastroente rology-[place] [facility] Work Phone: Chloride [Moles/Vol] 101 mmol/L 98 - 107 MG-G [facility] Work Phone: CO2 [Moles/Vol] 30 mmol/L 21 - 32 MG-[facility]astro ente [facility] Work Phone: Creatinine [Mass/Vol] 0.72 mg/dL See Below MG- Gastroente rology-[place] [facility] Work Phone: Comment on above: Reference Range: 0.5 0 - 1.05 Glucose [Mass/Vol] 157 mg/dL above high threshold 74 - 99 MG-Gastroente rology-[place] [facility] Work Phone: Potassium [Moles/Vol] 4.1 mmol/L 3.5 - 5.3 MG- Gastroente rology-[place] [facility] Work Phone: Protein [Mass/Vol] 5.6 g/dL below low threshold 6.4 - 8.2 MG-Wagner Oconnor [facility] Work Phone: Sodium [Moles/Vol] 138 mmol/L 136 - 145 MG-Gas minoo Oconnor [facility] Work Phone: Urea nitrogen [Mass/Vol] 3 mg/dL below low threshold 6 - 23 MG-Wagner Oconnor [facility] Work Phone: Glucose [Mass/Vol] 109 mg/dL above high threshold 74 - 99 MG-Wagner Oconnor [facility] Work Phone: Laboratory - Hematology and Cell countson 11-01-2021 Erythrocyte distribution width (RBC) [Ratio] 13.7 % See Below -Wagner Oconnor [facility] Work Phone: Comment on above: Reference Range: 11. 5 - 14.5 Hematocrit (Bld) [Volume fraction] 35.0 % below low threshold See Below -Wagner Oconnor [facility] Work Phone: Comment on above: Reference Range: 36. 0 - 46.0 Hemoglobin (Bld) [Mass/Vol] 10.8 g/dL below low threshold See Below -Wagner Oconnor [facility] Work Phone: Comment on above: Reference Range: 12. 0 - 16.0 MCHC (RBC) [Mass/Vol] 30.9 g/dL below low threshold See Below MG-Wagner Oconnor [facility] Work Phone: Comment on above: Reference Range: 32. 0 - 36.0 MCV (RBC) [Entitic vol] 105 fL above high threshold 80 - 100 MG-Wagner Oconnor [facility] Work Phone: Platelets (Bld) [#/Vol] 225 10*3/uL 150 - 450 MG-Wagner Oconnor [facility] Work Phone: RBC (Bld) [#/Vol] 3.33 {x10E12/L} below low threshold See Below MG-Gastroente rology-[place] [facility] Work Phone: Comment on above: Reference Range: 4.0 0 - 5.20 WBC (Bld) [#/Vol] 5.7 10*3/uL 4.4 - 11.3 MG-Gas troente [employer]ogy-[place] I Work Phone: Lipid Panelon 11-01-2021 Cholesterol [Mass/Vol] 127 mg/dL 0 - 199 MG-Gastroente rology-[place] I Work Phone: Comment on above: . [...] in HDL [Mass/Vol] 30.0 mg/dL Abnormal MG-Gastroente [employer]-[place] [facility] Work Phone: Comment on above: . AGE VERY LOW LOW N ORMAL HIGH 0-19 Y < 35 < 40 40-45 ---- 20- 24 Y ---- < 40 >45 ---- >24 Y ---- < 40 40-60 >60. Cholesterol in LDL [Mass/Vol] 40 mg/dL 0 - 99 MG-Gastroente [employer]-[place] [facility] Work Phone: Comment on above: . NEAR BORD AGE PEDRO RABLE OPTIMAL HIGH HIGH VERY HIGH 0-19 Y 0 - 109 --- 110-129 >/= 130 ---- 20-24 Y 0 - 119 --- 120-159 >/= 160 ---- >24 Y 0 - 99 100-129 130-159 160-189 >/=190. Cholesterol non HDL [Mass/Vol] 97 mg/dL MG-Gastroente Veridy-[place] [employer] Work Phone: Comment on above: AGE DESIRABLE BORDER LINE HIGH HIGH VERY HIGH 0-19 Y 0 - 119 120 - 144 >/= 145 >/= 160 20-24 Y 0 - 149 150 - 189 >/= 190 ---- >24 Y 30 MG/DL ABOVE LDL CHOLESTEROL GOAL. Cholesterol.total/Cho lesterol in HDL [Mass ratio] 4.2 {ratio} MG-Gastroente [employer] Work Phone: Comment on above: REF VALUESDESIRABLE < 3.4HIGH RISK > 5.0 Triglyceride [Mass/Vol] 286 mg/dL above high threshold 0 - 149 MG-Gastroente [employer]-[place] [employer] Work Phone: Comment on above: . AGE [...] above high threshold 0 - 40 MG-Gastroente [employer]-[place] [employer] Work Phone: No Panel Informationon 11-01 >90 >90 MG-Gastroente [employer]-[place] [employer] Work Phone: Comment on above: CALCULATIONS OF LEIDY MATED GFR ARE PERFORMED USING THE 2020 CKD-EPI STUDY REFIT EQUATION WITHOUT THE RACE VARIABLE FOR THE IDMS-TRACEABLE CREATININE METHODS.https://jasn.asnjournals.org/content// N.3564130640 0.0 {/100_WBC} 0.0-0.0 MG-Gastroe nte [facility] Work Phone: Laboratory - Chemistry and C hemistry - challengeon 10-31-2021 Glucose [Mass/Vol] 202 mg/dL above high threshold 74 - 99 MG-[facility] [facility] Work Phone: Glucose [Mass/Vol] 151 mg/dL above high threshold 74 - 99 MG-Gastroente rology-[facility] Work Phone: Glucose [Mass/Vol] 220 mg/dL above high threshold 74 - 99 [facility] Work Phone: Albumin BCP dye [Mass/Vol] 3.5 g/dL 3.4 - 5.0 [facility] Work Phone: ALP [Catalytic activity/Vol] 71 U/L 33 - 110 MG-Gastroente [facility] Work Phone: ALT With P-5'-P [Catalytic activity/Vol] 12 U/L 7 - 45 MG-Gastroente [facility] Work Phone: Comment on above: Patients treated wit h Sulfasalazine may generate falsely decreased results for ALT. Anion gap [Moles/Vol] 13 mmol/L 10 - 20 MG- [facility]ente [facility] Work Phone: AST With P-5'-P [Catalytic activity/Vol] 13 U/L 9 - 39 MG-Gastroente [facility] Work Phone: Bilirubin [Mass/Vol] 0.3 mg/dL 0.0 - 1.2 MG-G astroente [facility] Work Phone: Calcium [Mass/Vol] 8.9 mg/dL 8.6 - 10.6 MG[facility]Gas [facility]ente [facility] Work Phone: Chloride [Moles/Vol] 103 mmol/L 98 - 107 MG-G ast[facility]ente [facility] Work Phone: CO2 [Moles/Vol] 28 mmol/L 21 - 32 MG-Gastro ente [facility] Work Phone: Creatinine [Mass/Vol] 0.59 mg/dL See Below MG- Gastroente don-[facility] Work Phone: Comment on above: Reference Range: 0.5 0 - 1.05 Glucose [Mass/Vol] 87 mg/dL 74 - 99 MG-Gas minoo [facility] Work Phone: Potassium [Moles/Vol] 4.5 mmol/L 3.5 - 5.3 MG- [facility] Work Phone: Protein [Mass/Vol] 6.1 g/dL below low threshold 6.4 - 8.2 [facility] Work Phone: Sodium [Moles/Vol] 139 mmol/L 136 - 145 MG-Gas minoo [facility] Work Phone: Urea nitrogen [Mass/Vol] 4 mg/dL below low threshold 6 - 23 MG[facility] Work Phone: Laboratory - Hematology and Cell countson 10-31-2021 Erythrocyte distribution width (RBC) [Ratio] 13.8 % See Below MG-Gastroente don-[place] [facility] Work Phone: Comment on above: Reference Range: 11. 5 - 14.5 Hematocrit (Bld) [Volume fraction] 36.8 % See Below MG-Gastroente don-[place] [facility] Work Phone: Comment on above: Reference [...] above high threshold 80 - 100 MG-Gastroente rology-[place] [facility] Work Phone: Platelets (Bld) [#/Vol] 231 10*3/uL 150 - 450 MG-Gastroente rology-[place] I Work Phone: RBC (Bld) [#/Vol] 3.54 {x10E12/L} below low threshold See Below MG-Gastroente rology-[place] I Work Phone: Comment on above: Reference Range: 4.0 0 - 5.20 WBC (Bld) [#/Vol] 5.1 10*3/uL 4.4 - 11.3 MG-Gas troente rology-[place] I Work Phone: No Panel Informationon 10-31 0.0 {/100_WBC} 0.0-0.0 MG-Gastroe nte rology-[place] I Work Phone: >90 >90 MG-Gastroente rology-[place] I Work Phone: Comment on above: CALCULATIONS OF LEIDY MATED GFR ARE PERFORMED USING THE 2020 CKD-EPI STUDY REFIT EQUATION WITHOUT THE RACE VARIABLE FOR THE IDMS-TRACEABLE CREATININE METHODS.https://jasn.asnjournals.org/content/early/ N.2906963575 Laboratory - Chemistry and C hemistry - challengeon 10-30-2021 Glucose [Mass/Vol] 165 mg/dL above high threshold 74 - 99 MG-Gastroente rology-[place] [facility] Work Phone: Glucose [Mass/Vol] 165 mg/dL above high threshold 74 - 99 MG-Gastroente rology-[place] [facility] Work Phone: Glucose [Mass/Vol] 108 mg/dL above high threshold 74 - 99 MG-Gastroente rology-[place] I Work Phone: Laboratory - Chemistry and C hemistry - challengeon 10-29-2021 Glucose [Mass/Vol] 176 mg/dL above high threshold 74 - 99 MG-Gastroente rology-[place] [facility] Work Phone: Glucose [Mass/Vol] 156 mg/dL above high threshold 74 - 99 MG-Gastroente rology-[place] I Work Phone: Glucose [Mass/Vol] 148 mg/dL above high threshold 74 - 99 MG-Gastroente rology-[place] [facility] Work Phone: Glucose [Mass/Vol] 81 mg/dL 74 - 99 MG-Gas troente [facility] Work Phone: Amylase, Serumon 10-28-2021 Amylase [Catalytic activity/Vol] 17 U/L below low threshold 29 - 103 MG-Gastroente rology-[place] [facility] Work Phone: Antithyroid Perox. Abon 10-17 TPO Ab Qn [IU]/mL MG-Gastroente rology-[place] [facility] Work Phone: Comment on above: Negative: <=60 U/mLP ositive: >60 U/mL Complete Blood Count + Diffe rentialon 10-28-2021 Basophils/100 WBC (Bld) 0.5 % 0.0 - 2.0 MG-Gastroente rology-[place] [facility] Work Phone: Erythrocyte distribution width (RBC) [Ratio] 14.3 % See Below MG-Gastroente rology-[place] [facility] Work Phone: Comment on above: Reference Range: 11. 5 - 14.5 Hematocrit (Bld) [Volume fraction] 38.2 % See Below MG-Gastroente shaileshmanny-[place] [facility] Work Phone: Comment on above: Reference Range: 36. 0 - 46.0 Hemoglobin (Bld) [Mass/Vol] 12.8 g/dL See Below MG-Gastroente [facility] Work Phone: Comment on above: Reference Range: 12. 0 - 16.0 Lymphocytes/100 WBC (Bld) 50.5 % See Below MG-Gastroente [facility] Work Phone: Comment on above: Reference Range: 13. 0 - 44.0 MCHC (RBC) [Mass/Vol] 33.5 g/dL See Below MG- [facility]high[facility] hospitalmanny-[facility] Work Phone: Comment on above: Reference Range: 32. 0 - 36.0 MCV (RBC) [Entitic vol] 97 fL 80 - 100 MG-[facility] shaileshmanny-[place] [facility] Work Phone: Monocytes/100 WBC (Bld) 12.1 % 2.0 - 10.0 [facility] Work Phone: Neutrophils/100 WBC (Bld) 31.3 % See Below [facility] Work Phone: Comment on above: Reference Range: 40. 0 - 80.0 Platelets (Bld) [#/Vol] 167 10*3/uL 150 - 450 MG-[facility]the [facility] shaileshmanny-[place] [facility] Work Phone: RBC (Bld) [#/Vol] 3.92 {x10E12/L} below low threshold See Below MG-Gastroente shailehsy-[place] [facility] Work Phone: Comment on above: Reference Range: 4.0 0 - 5.20 WBC (Bld) [#/Vol] 4.0 10*3/uL below low threshold 4.4 - 11.3 [facility] Work Phone: Complete Blood Count + Differential 0.3 % 0.0 - 0.9 MG-[facility] Work Phone: Comment on above: Immature Granulocyte Count (IG) includes promyelocytes, myelocytes and metamyelocytes but does not include bands. Percent differential counts (%) should be interpreted in the context of the absolute cell counts (cells/L). Complete Blood Count + Differential 0.0 {/100_WBC} 0.0-0.0 [facility] Work Phone: Complete Blood Count + Differential 0.02 {x10E9/L} See Below [facility] Work Phone: Comment on above: Reference Range: 0.0 0 - 0.10 Complete Blood Count + Differential 0.21 {x10E9/L} See Below [facility] Work Phone: Comment on above: Reference Range: 0.0 0 - 0.70 Complete Blood Count + Differential 0.48 {x10E9/L} See Below [facility] Work Phone: Comment on above: Reference Range: 0.1 0 - 1.00 Complete Blood Count + Differential 2.01 {x10E9/L} See Below [facility] Work Phone: Comment on above: Reference Range: 1.2 0 - 4.80 Complete Blood Count + Differential 1.25 {x10E9/L} See Below [facility] Work Phone: Comment on above: Reference Range: 1.2 0 - 7.70 Complete Blood Count + Differential 5.3 % 0.0 - 6.0 [facility] Work Phone: Laboratory - Chemistry and C hemistry - challengeon 10-28-2021 Glucose [Mass/Vol] 96 mg/dL 74 - 99 MG-Gas [facility] Work Phone: Glucose [Mass/Vol] 101 mg/dL above high threshold 74 - 99 [facility] Work Phone: Glucose [Mass/Vol] 112 mg/dL above high threshold 74 - 99 [facility] Work Phone: Glucose [Mass/Vol] 90 mg/dL 74 - 99 MG-Gas [facility] Work Phone: Albumin BCP dye [Mass/Vol] 3.7 g/dL 3.4 - 5.0 [facility] Work Phone: ALP [Catalytic activity/Vol] 76 U/L 33 - 110 [facility] Work Phone: ALT With P-5'-P [Catalytic activity/Vol] 19 U/L 7 - 45 [facility] Work Phone: Comment on above: Patients treated wit h Sulfasalazine may generate falsely decreased results for ALT. Anion gap [Moles/Vol] 15 mmol/L 10 - 20 MG- Gastroente [facility] Work Phone: AST With P-5'-P [Catalytic activity/Vol] 27 U/L 9 - 39 [facility] Work Phone: Bilirubin [Mass/Vol] 0.4 mg/dL 0.0 - 1.2 MG-G astroente [facility] Work Phone: Calcium [Mass/Vol] 9.2 mg/dL 8.6 - 10.6 MG-Gas [facility] Work Phone: Chloride [Moles/Vol] 102 mmol/L 98 - 107 MG-G astroente shaileshy-[facility] Work Phone: CO2 [Moles/Vol] 26 mmol/L 21 - 32 MG-Gastro ente shaileshy-[facility] Work Phone: Creatinine [Mass/Vol] 0.58 mg/dL See Below MG- Gastroente rology-[place] [facility] Work Phone: Comment on above: Reference Range: 0.5 0 - 1.05 Glucose [Mass/Vol] 79 mg/dL 74 - 99 MG-Gas troente [facility] Work Phone: Potassium [Moles/Vol] 4.1 mmol/L 3.5 - 5.3 MG- [facility]astroente [facility] Work Phone: Protein [Mass/Vol] 6.4 g/dL 6.4 - 8.2 MG-Gas troente [facility] Work Phone: Sodium [Moles/Vol] 139 mmol/L 136 - 145 MG-Gas troente rology-[facility] Work Phone: Urea nitrogen [Mass/Vol] 2 mg/dL below low threshold 6 - 23 MG-[facility]ente [facility] Work Phone: Glucose [Mass/Vol] 93 mg/dL 74 - 99 MG-Gas troente rology-[facility] Work Phone: Glucose [Mass/Vol] 91 mg/dL 74 - 99 MG-Gas troente rology-[facility] Work Phone: Lipase, Serumon 10-28-2021 Lipase [Catalytic activity/Vol] 7 U/L below low threshold 9 - 82 MG-Gastroente rology-[facility] Work Phone: Comment on above: Venipuncture immedia tely after or during the administration of Metamizole may lead to falsely low results. Testing should be performed immediately prior to Metamizole dosing. No Panel Informationon 10-28 >90 >90 MG-Gastroente rology-[place] [facility] Work Phone: Comment on above: CALCULATIONS OF LEIDY MATED GFR ARE PERFORMED USING THE 2020 CKD-EPI STUDY REFIT EQUATION WITHOUT THE RACE VARIABLE FOR THE IDMS-TRACEABLE CREATININE METHODS.https://jasn.asnjournals.org/content/early/ N.5263140189 TSH - Thyroid Stimulating Ho rmone, Serumon 10-28-2021 TSH Qn 4.77 m[IU]/L above high threshold See Below MG-Gastroente rology-[place] [facility] Work Phone: Comment on above: Reference Range: 0.4 4 - 3.98 TSH testing is performed using different testing methodology at [facility] than at other [facility]. Direct result comparisons should only be made within the same method. Laboratory - Chemistry and C hemistry - challengeon 10-27-2021 Glucose [Mass/Vol] 217 mg/dL above high threshold 74 - 99 MG-Gastroente rology-[place] [facility] Work Phone: Glucose [Mass/Vol] 102 mg/dL above high threshold 74 - 99 MG-[facility] [facility] Work Phone: Glucose [Mass/Vol] 98 mg/dL 74 - 99 MG-Gas troente [facility] Work Phone: Amylase, Serumon 10-26-2021 Amylase [Catalytic activity/Vol] 18 U/L below low threshold 29 - 103 MG-Gastroente rology-[place] [facility] Work Phone: C Reactive Protein, Serumon 10-26-2021 CRP [Mass/Vol] 9.04 mg/dL Abnormal MG-Gastroe nte [facility] Work Phone: Comment on above: REF VALUE< 1.00 CT Abdomen and Pelvis with I V Contraston 10-26-2021 CT Abdomen and Pelvis W contrast IV Normal MG-[facility]the [facility]sm[facility] Work Phone: Complete Blood Count + Diffe rentialon 10-26-2021 Basophils/100 WBC (Bld) 0.5 % 0.0 - 2.0 [facility] Work Phone: Erythrocyte distribution width (RBC) [Ratio] 14.5 % See Below MG-[facility]high[facility] hospitaly-[facility] Work Phone: Comment on above: Reference Range: 11. 5 - 14.5 Hematocrit (Bld) [Volume fraction] 34.9 % below low threshold See Below -[facility]astrohigh[facility] hospitalmanny-[place] [facility] Work Phone: Comment on above: Reference Range: 36. 0 - 46.0 Hemoglobin (Bld) [Mass/Vol] 11.0 g/dL below low threshold See Below [facility] Work Phone: Comment on above: Reference Range: 12. 0 - 16.0 Lymphocytes/100 WBC (Bld) 30.4 % See Below [facility] Work Phone: Comment on above: Reference Range: 13. 0 - 44.0 MCHC (RBC) [Mass/Vol] 31.5 g/dL below low threshold See Below MG-[facility]astrohighland district hospitalmanny-[facility] Work Phone: Comment on above: Reference Range: 32. 0 - 36.0 MCV (RBC) [Entitic vol] 104 fL above high threshold 80 - 100 MG-[facility]astrohighland [facility] hospitalmanny-[facility] Work Phone: Monocytes/100 WBC (Bld) 8.5 % 2.0 - 10.0 MG-Gastroente shaileshy-[facility] Work Phone: Neutrophils/100 WBC (Bld) 56.6 % See Below MG[facility] Work Phone: Comment on above: Reference Range: 40. 0 - 80.0 Platelets (Bld) [#/Vol] 158 10*3/uL 150 - 450 MG-Gastroente shaileshogy-[place] [facility] Work Phone: RBC (Bld) [#/Vol] 3.37 {x10E12/L} below low threshold See Below MG-Gastroente rology-[place] [facility] Work Phone: Comment on above: Reference Range: 4.0 0 - 5.20 WBC (Bld) [#/Vol] 5.8 10*3/uL 4.4 - 11.3 MG-Gas troente charlesy-[facility] Work Phone: Complete Blood Count + Differential 0.03 {x10E9/L} See Below MG-Gastroente shaileshy-[facility] Work Phone: Comment on above: Reference Range: 0.0 0 - 0.10 Complete Blood Count + Differential 0.22 {x10E9/L} See Below MG-Gastroente shaileshy-[place] [facility] Work Phone: Comment on above: Reference Range: 0.0 0 - 0.70 Complete Blood Count + Differential 0.49 {x10E9/L} See Below MG-Gastroente shaileshogy-[place] [facility] Work Phone: Comment on above: Reference Range: 0.1 0 - 1.00 Complete Blood Count + Differential 1.76 {x10E9/L} See Below MG-Gastroente rology-[place] [facility] Work Phone: Comment on above: Reference Range: 1.2 0 - 4.80 Complete Blood Count + Differential 3.28 {x10E9/L} See Below MG-Gastroente rology-[place] [facility] Work Phone: Comment on above: Reference Range: 1.2 0 - 7.70 Complete Blood Count + Differential 3.8 % 0.0 - 6.0 MG-Gastroente rology-Vanessa [facility] Work Phone: Complete Blood Count + Differential 0.2 % 0.0 - 0.9 [facility] Work Phone: Comment on above: Immature Granulocyte Count (IG) includes promyelocytes, myelocytes and metamyelocytes but does not include bands. Percent differential counts (%) should be interpreted in the context of the absolute cell counts (cells/L). Complete Blood Count + Differential 0.5 {/100_WBC} 0.0-0.0 MG-Gastroente [facility] Work Phone: Laboratory - Chemistry and C hemistry - challengeon 10-26-2021 Glucose [Mass/Vol] 177 mg/dL above high threshold 74 - 99 [facility]: Glucose [Mass/Vol] 156 mg/dL above high threshold 74 - 99 MG-Gastroente [facility] Work Phone: Glucose [Mass/Vol] 74 mg/dL 74 - 99 [facility] Work Phone: Glucose [Mass/Vol] 139 mg/dL above high threshold 74 - 99 [facility] Work Phone: Glucose [Mass/Vol] 67 mg/dL below low threshold 74 - 99 MG-[facility]astroente [facility] Work Phone: Albumin BCP dye [Mass/Vol] 3.4 g/dL 3.4 - 5.0 [facility] Work Phone: ALP [Catalytic activity/Vol] 59 U/L 33 - 110 MG-Gastroente [facility] Work Phone: ALT With P-5'-P [Catalytic activity/Vol] 14 U/L 7 - 45 [facility] Work Phone: Comment on above: Patients treated wit h Sulfasalazine may generate falsely decreased results for ALT. Anion gap [Moles/Vol] 20 mmol/L 10 - 20 MG- Gastroente [place] [facility] Work Phone: AST With P-5'-P [Catalytic activity/Vol] 26 U/L 9 - 39 [facility] Work Phone: Comment on above: MILD HEMOLYSIS DETEC GREGOR. The result may be falsely elevated due tohemolysis or other interferents. Clinical correlation is recommended.Repeat testing may be considered. Bilirubin [Mass/Vol] 0.7 mg/dL 0.0 - 1.2 [facility] Work Phone: Calcium [Mass/Vol] 8.5 mg/dL below low threshold 8.6 - 10.6 [facility] Work Phone: Chloride [Moles/Vol] 100 mmol/L 98 - 107 MG-G astroente [facility] Work Phone: CO2 [Moles/Vol] 22 mmol/L 21 - 32 MG-Gastro ente [facility] Work Phone: Creatinine [Mass/Vol] 0.51 mg/dL See Below [facility] Work Phone: Comment on above: Reference Range: 0.5 0 - 1.05 Glucose [Mass/Vol] 49 mg/dL Critically low 74 - 99 MG -Gastroente rology-[facility] Work Phone: Comment on above: CRIT GLU CALLED RB Flaca [place], 10/26/2021 12:24 Potassium [Moles/Vol] 5.3 mmol/L 3.5 - 5.3 MG- Gastroente rology-[facility] Work Phone: Comment on above: MILD HEMOLYSIS DETEC GREGOR. The result may be falsely elevated due tohemolysis or other interferents. Clinical correlation is recommended.Repeat testing may be considered. Protein [Mass/Vol] 6.0 g/dL below low threshold 6.4 - 8.2 MG-Gastroente don-Vanessa [facility] Work Phone: Sodium [Moles/Vol] 137 mmol/L 136 - 145 [facility] Work [facility]: Urea nitrogen [Mass/Vol] 7 mg/dL 6 - 23 [facility] Work Phone: No Panel Informationon 10-26 >90 >90 [facility] Work Phone: Comment on above: CALCULATIONS OF LEIDY MATED GFR ARE PERFORMED USING THE 2020 CKD-EPI STUDY REFIT EQUATION WITHOUT THE RACE VARIABLE FOR THE IDMS-TRACEABLE CREATININE METHODS.https://jasn.asnjournals.org/content/early// N.9410036870 Complete Blood Count + Diffe rentialon 10-25-2021 Basophils/100 WBC (Bld) 0.3 % 0.0 - 2.0 [facility]w [facility] Work Phone: Erythrocyte distribution width (RBC) [Ratio] 14.5 % See Below [facility]astro[facility] Work Phone: Comment on above: Reference Range: 11. 5 - 14.5 Hematocrit (Bld) [Volume fraction] 35.7 % below low threshold See Below MG-Gastroente don-Vanessa [facility] Work Phone: Comment on above: Reference Range: 36. 0 - 46.0 Hemoglobin (Bld) [Mass/Vol] 11.2 g/dL below low threshold See Below MG-Gastroente [place]y-[place] [facility] Work Phone: Comment on above: Reference Range: 12. 0 - 16.0 Lymphocytes/100 WBC (Bld) 25.4 % See Below MG-[facility]astroente [facility] Work Phone: Comment on above: Reference Range: 13. 0 - 44.0 MCHC (RBC) [Mass/Vol] 31.4 g/dL below low threshold See Below [facility]ente [facility] [facility] Work Phone: Comment on above: Reference Range: 32. 0 - 36.0 MCV (RBC) [Entitic vol] 104 fL above high threshold 80 - 100 MG-Gastroente [facility]-[place] I Work Phone: Monocytes/100 WBC (Bld) 7.1 % 2.0 - 10.0 MG-Gastroente [facility] [facility] Work Phone: Neutrophils/100 WBC (Bld) 64.4 % See Below MG-Gastroente rology-[place] I Work Phone: Comment on above: Reference Range: 40. 0 - 80.0 Platelets (Bld) [#/Vol] 157 10*3/uL 150 - 450 MG-Gastroente shaileshogy-[place] I Work Phone: RBC (Bld) [#/Vol] 3.44 {x10E12/L} below low threshold See Below MG-Gastroente rology-[place] I Work Phone: Comment on above: Reference Range: 4.0 0 - 5.20 WBC (Bld) [#/Vol] 6.6 10*3/uL 4.4 - 11.3 MG-Gas troente shaileshogy-[place] I Work Phone: Complete Blood Count + Differential 0.02 {x10E9/L} See Below MG-Gastroente rology-[place] I Work Phone: Comment on above: Reference Range: 0.0 0 - 0.10 Complete Blood Count + Differential 0.15 {x10E9/L} See Below MG-Gastroente rology-[place] I Work Phone: Comment on above: Reference Range: 0.0 0 - 0.70 Complete Blood Count + Differential 0.47 {x10E9/L} See Below [facility] Work Phone: Comment on above: Reference Range: 0.1 0 - 1.00 Complete Blood Count + Differential 1.68 {x10E9/L} See Below [facility] Work Phone: Comment on above: Reference Range: 1.2 0 - 4.80 Complete Blood Count + Differential 4.26 {x10E9/L} See Below [facility] Work Phone: Comment on above: Reference Range: 1.2 0 - 7.70 Complete Blood Count + Differential 2.3 % 0.0 - 6.0 MG-[facility] Work Phone: Complete Blood Count + Differential 0.5 % 0.0 - 0.9 [facility] Work Phone: Comment on above: Immature Granulocyte Count (IG) includes promyelocytes, myelocytes and metamyelocytes but does not include bands. Percent differential counts (%) should be interpreted in the context of the absolute cell counts (cells/L). Complete Blood Count + Differential 0.0 {/100_WBC} 0.0-0.0 [facility] Work Phone: Laboratory - Chemistry and C hemistry - challengeon 10-25-2021 Glucose [Mass/Vol] 75 mg/dL 74 - 99 MG-[facility] Work Phone: Albumin BCP dye [Mass/Vol] 3.5 g/dL 3.4 - 5.0 [facility] Work Phone: ALP [Catalytic activity/Vol] 63 U/L 33 - 110 MG-[facility] Work Phone: ALT With P-5'-P [Catalytic activity/Vol] 14 U/L 7 - 45 [facility] [facility] Work Phone: Comment on above: Patients treated wit h Sulfasalazine may generate falsely decreased results for ALT. Anion gap [Moles/Vol] 12 mmol/L 10 - 20 MG- Gastroente rology-[facility] Work Phone: AST With P-5'-P [Catalytic activity/Vol] 18 U/L 9 - 39 [facility] Work Phone: Bilirubin [Mass/Vol] 0.7 mg/dL 0.0 - 1.2 [facility] Work Phone: Calcium [Mass/Vol] 8.6 mg/dL 8.6 - 10.6 [facility] Work Phone: Chloride [Moles/Vol] 100 mmol/L 98 - 107 MG[facility] Work Phone: CO2 [Moles/Vol] 29 mmol/L 21 - 32 [facility]astro [facility] Work Phone: Creatinine [Mass/Vol] 0.54 mg/dL See Below MG- Gastroente rology-[facility] Work Phone: Comment on above: Reference Range: 0.5 0 - 1.05 Glucose [Mass/Vol] 77 mg/dL 74 - 99 MG-Gas troente rology-[facility] Work Phone: Potassium [Moles/Vol] 4.2 mmol/L 3.5 - 5.3 MG- Gastroente rology-[place] Work Phone: Protein [Mass/Vol] 5.9 g/dL below low threshold 6.4 - 8.2 MG-Gastroente rology-[place] I Work Phone: Sodium [Moles/Vol] 137 mmol/L 136 - 145 MG-Gas troente shaileshogy-[place] I Work Phone: Urea nitrogen [Mass/Vol] 8 mg/dL 6 - 23 MG-Gastroente shaileshogy-[place] I Work Phone: Glucose [Mass/Vol] 83 mg/dL 74 - 99 MG-Gas troente charlesy-[place] [facility] Work Phone: Lipase, Serumon 10-25-2021 Lipase [Catalytic activity/Vol] 30 U/L 9 - 82 MG-Gastroente shaileshogy-Vanessa [facility] Work Phone: Comment on above: Venipuncture immedia tely after or during the administration of Metamizole may lead to falsely low results. Testing should be performed immediately prior to Metamizole dosing. Magnesium, Serumon 2 Magnesium [Mass/Vol] 1.88 mg/dL See Below MG-G astroente shaileshy-Vanessa [facility] Work Phone: Comment on above: Reference Range: 1.6 0 - 2.40 No Panel Informationon 10-25 >90 >90 MG-Gastroente [place] [facility] Work Phone: Comment on above: CALCULATIONS OF LEIDY MATED GFR ARE PERFORMED USING THE 2020 CKD-EPI STUDY REFIT EQUATION WITHOUT THE RACE VARIABLE FOR THE IDMS-TRACEABLE CREATININE METHODS.https://jasn.asnjournals.org/content/early// N.2244104112 Phosphorus, Serumon 10-25-19 22 Phosphate [Mass/Vol] 3.6 mg/dL 2.5 - 4.9 MG-G astroente shaileshogy-Vanessa [facility] Work Phone: Comment on above: The performance carmen acteristics of phosphorus testing in heparinized plasma have been validated by the individual laboratory site where testing is performed. Testing on heparinized plasma is not approved by the FDA; however, such approval is not necessary. Laboratory - Chemistry and C hemistry - challengeon 10-24-2021 Glucose [Mass/Vol] 92 mg/dL 74 - 99 MG-Gas troente [facility]logy-[place] I Work Phone: No Panel Informationon 10-24 Please click on the link to view the study images Normal MG-[facility]astroente [facility] Work Phone: [email or web address] MG-Gastroente [facility]y-[place] I Work Phone: MG-[facility]astroente [facility] Work Phone: MRI Secretin MRCPon 09-28-19 MRI Secretin MRCP Normal MG-Ishmael roente rology-[place] I Work Phone: ACETONE SERUMon 08-17-2021 ACETONE Negative Normal NEGATIVE [facility] Comment on above: Performed By: #### A CETON #### [facility] [address] [place] [address] Dr. Louis Britton AMYLASEon 08-17-2021 AMYL <30 Critically low 31-110 [facility] Comment on above: Performed By: #### B MP, LIPA, FIOR #### [facility] [address] [place] [address] Dr. Louis Britton CBC AUTO DIFFon 08-17-2021 BASO # 0.0 103/ul Normal 0.0-0.1 [facility] Comment on above: Performed By: #### C BC #### [facility] [address] [place] [address] Dr. Louis Britton Basophils/100 WBC (Bld) 0.1 % Critically low 0.2-2.0 [facility] Comment on above: Performed By: #### C BC #### [facility] [address] [place] [address] Dr. Louis Britton EO # 0.1 103/ul Normal 0.0-0.7 [facility] Comment on above: Performed By: #### C BC #### [facility] [address] [place] [address] Dr. Louis Britton Eosinophils/100 WBC (Bld) 0.6 % Critically low 0.9-7.0 [facility] Comment on above: Performed By: #### C BC #### [facility] [address] [place] [address] Dr. Louis Britton Erythrocyte distribution width (RBC) [Ratio] 13.3 % Normal 11.0-15.0 [facility] Comment on above: Performed By: #### C BC #### [facility] [address] [place] [address] Dr. Louis Britton Hematocrit (Bld) [Volume fraction] 40.9 % Normal 36.0-48.0 [facility] Comment on above: Performed By: #### C BC #### [facility] [address] [place] [address] Dr. Louis Britton Hemoglobin (Bld) [Mass/Vol] 13.7 g/dL Normal 12.0-16.0 [facility] Comment on above: Performed By: #### C BC #### [facility] [address] [place] [address] Dr. Louis Britton IG # 0.04 10e3/ul Critically high 0.00-0.03 [facility] Comment on above: Performed By: #### C BC #### [facility] [address] [place] [address] Dr. Louis Britton IG % 0.4 % Normal 0.0-0.5 [facility] Comment on above: Performed By: #### C BC #### [facility] [address] [place] [address] Dr. Louis Britton LYMPH # 2.7 103/ul Normal 1.2-3.8 [facility] Comment on above: Performed By: #### C BC #### [facility] [address] [place] [address] Dr. Louis Britton Lymphocytes/100 WBC (Bld) 26.2 % Normal 20.5-60.0 [facility] Comment on above: Performed By: #### C BC #### [facility] [address] [place] [address] Dr. Louis Britton MANUAL DIFF REQ NO Normal [facility] Comment on above: Performed By: #### C BC #### [facility] [address] [place] [address] Dr. Louis Britton MCH (RBC) [Entitic mass] 30.6 pg Normal 26.7-34.0 [facility] Comment on above: Performed By: #### C BC #### [facility] [address] [place] [address] Dr. Louis Britton MCHC (RBC) [Mass/Vol] 33.5 g/dL Normal 29.9-35.2 [facility] Comment on above: Performed By: #### C BC #### [facility] [address] [place] [address] Dr. Louis Britton MCV (RBC) [Entitic vol] 91.5 fL Normal 81.0-99.0 [facility] Comment on above: Performed By: #### C BC #### [facility] [address] [place] [address] Dr. Louis Britton MONO # 0.3 103/ul Normal 0.3-0.8 [facility] Comment on above: Performed By: #### C BC #### [facility] [address] [place] [address] Dr. Louis Britton Monocytes/100 WBC (Bld) 2.9 % Normal 1.7-12.0 [facility] Comment on above: Performed By: #### C BC #### [facility] [address] [place] [address] Dr. Louis Britton NEUT # 7.1 103/ul Critically high 1.4-6.5 [facility] Comment on above: Performed By: #### C BC #### [facility] [address] [place] [address] Dr. Louis Britton Neutrophils/100 WBC (Bld) 69.8 % Normal 43.0-75.0 [facility] Comment on above: Performed By: #### C BC #### [facility] [address] [place] [address] Dr. Louis Britton Platelet mean volume (Bld) [Entitic vol] 10.1 fL Normal 9.5-13.5 [facility] Comment on above: Performed By: #### C BC #### [facility] [address] [place] [address] Dr. Louis Britton PLT 175 103/ul Normal 150-450 [facility] Comment on above: Performed By: #### C BC #### [facility] [address] [place] [address] Dr. Louis Britton RBC 4.47 106/ul Normal 4.20-5.40 [facility] Comment on above: Performed By: #### C BC #### [facility] [address] [place] [address] Dr. Louis Britton WBC 10.2 103/ul Normal 4.0-11.0 [facility] Comment on above: Performed By: #### C BC #### [facility] [address] [place] [address] Dr. Louis ABRAHAM URINE PROFILEon 1 Bilirubin Ql (U) Negative Normal NEGATIVE [facility] Comment on above: Performed By: #### C MP, LIPID #### [facility] [address] [place] [address] Dr. Louis Britton Clarity (U) CLEAR Normal CLEAR [facility] Comment on above: Performed By: #### C MP, LIPID #### [facility] [address] [place] [address] Dr. Louis Britton Color (U) DK. ORANGE Abnormal YELLOW [facility] Comment on above: Performed By: #### C MP, LIPID #### [facility] [address] [place] [address] Dr. Louis Britton ERUAHD A micrscopic examina tion will be performed if indicated. Normal [facility] Comment on above: Performed By: #### C MP, LIPID #### [facility] [address] [address] [address] Louis Britton Glucose Ql (U) Negative Normal NEGATIVE [facility] Comment on above: Performed By: #### C MP, LIPID #### [facility] [address] [address] [address] Louis Britton Hemoglobin Ql (U) MODERATE Abnormal NEGATIVE [facility] Comment on above: Performed By: #### C MP, LIPID #### [facility] [address] [address] [address] Louis Britton Ketones Ql (U) Negative Normal NEGATIVE [facility] Comment on above: Performed By: #### C MP, LIPID #### [facility] [address] [address] [address] Louis Britton LEUKOCYTES Negative Normal NEGATIVE [facility] Comment on above: Performed By: #### C MP, LIPID #### [facility] [address] [address] [address] Louis Britton Nitrite Ql (U) Negative Normal NEGATIVE [facility] Comment on above: Performed By: #### C MP, LIPID #### [facility] [address] [address] [address] Louis Britton pH (U) 5.5 [pH] Normal 5-9 [facility] Comment on above: Performed By: #### C MP, LIPID #### [facility] [address] [address] [address] Louis Britton Protein (U) [Mass/Vol] 100 mg/dL Abnormal NEGATIVE/ TRACE [facility] Comment on above: Performed By: #### C MP, LIPID #### [facility] [address] [place] [address] Dr. Louis Britton SPEC GRAVITY >=1.030 Abnormal 1.005-<=1.02 5 [facility] Comment on above: Performed By: #### C MP, LIPID #### [facility] [address] [address] [address] Louis Britton UR MICRO IND INDICATED Normal [facility] Comment on above: Performed By: #### C MP, LIPID #### [facility] [address] [place] [address] Dr. Louis Britton Urobilinogen Qn (U) 0.2 {Rubio'U}/dL Normal 0.2 - 1. 0 [facility] Comment on above: Performed By: #### C MP, LIPID #### [facility] [address] [place] [address] Dr. Louis Britton LIPASEon 08-17-2021 Lipase [Catalytic activity/Vol] 260.0 U/L Normal 23.0-300.0 [facility] Comment on above: Performed By: #### B MP, LIPA, FIOR #### [facility] [address] [place] [address] Dr. Louis Britton PH VENOUS BLOODon 08-17-2021 PCO2 VENOUS 33.0 mmHg Critically low 40.0-52.0 [facility] Comment on above: Performed By: #### C MP, LIPID #### [facility] [address] [place] [address] Dr. Louis Britton pH VENOUS 7.46 Critically high 7.33-7.43 [facility] Comment on above: Performed By: #### C MP, LIPID #### [facility] [address] [place] [address] Dr. Louis Britton URon 08-17-2021 , QUAL Negative Normal NEGATIVE [facility] Comment on above: Performed By: #### C MP, LIPID #### [facility] [address] [place] [address] Dr. Louis Britton PROF CHEM 8 (BAS METB)on Anion gap [Moles/Vol] 13.3 mmol/L Normal [facility] Comment on above: Performed By: #### B MP, LIPA, FIOR #### [facility] [address] [place] [address] Dr. Louis Britton Calcium [Mass/Vol] 9.3 mg/dL Normal 8.4-10.2 [facility] Comment on above: Performed By: #### B MP, LIPA, FIOR #### [facility] [address] [place] [address] Dr. Louis Britton Chloride [Moles/Vol] 97 mmol/L Critically low 98-107 [facility] Comment on above: Performed By: #### B JASPREET STEELE, FIOR #### [facility] [address] [address] [address] Louis Britton CO2 [Moles/Vol] 26.3 mmol/L Normal 22.0-30.0 [facility] Comment on above: Performed By: #### B JASPREET STEELE, FIOR #### [facility] [address] [address] [address] Louis Britton Creatinine [Mass/Vol] 0.93 mg/dL Normal 0.52-1.04 [facility] Comment on above: Performed By: #### B JASPREET STEELE, FIOR #### [facility] [address] [address] [address] Louis Britton EGFR-AF CROATIAN >60 Normal >=60 [facility] Comment on above: Performed By: #### B JASPREET STEELE, FIOR #### [facility] [address] [address] [address] Louis Britton EGFR-NON AF CROATIAN >60 Normal >=60 [facility] Comment on above: Performed By: #### B JASPREET STEELE, FIOR #### [facility] [address] [address] [address] Louis Britton Glucose [Mass/Vol] 181 mg/dL Critically high 74-106 [facility] Comment on above: Performed By: #### B JASPREET STEELE, FIOR #### [facility] [address] [address] [address] Louis Britton Potassium [Moles/Vol] 3.6 mmol/L Normal 3.4-5.0 [facility] Comment on above: Performed By: #### B JASPREET STEELE, FIOR #### [facility] [address] [address] [address] Louis Britton Sodium [Moles/Vol] 133 mmol/L Critically low 137-145 [facility] Comment on above: Performed By: #### B MP, LIPA, FIOR #### [facility] [address] [address] [address] Louis Britton Urea nitrogen [Mass/Vol] 21.0 mg/dL Critically high 7.0-17.0 [facility] Comment on above: Performed By: #### B MP, LIPA, FIOR #### [facility] [address] [place] [address] Dr. Louis Britton Urea nitrogen/Creatinine [Mass ratio] 22.6 mg/mg Normal [facility] Comment on above: Performed By: #### B MP, LIPA, FIOR #### [facility] [address] [place] [address] Dr. Louis Britton URINE MICROSCOPIC ONLYon BACTERIA TRACE Abnormal NONE SEEN [facility] Comment on above: Performed By: #### C MP, LIPID #### [facility] [address] [place] [address] Dr. Louis Britton Bacteria identified Cx Nom (U) NOT INDICATED Normal [facility] Comment on above: Performed By: #### C MP, LIPID #### [facility] [address] [place] [address] Dr. Louis Britton CAST NONE SEEN Normal NONE SEEN [facility] Comment on above: Performed By: #### C MP, LIPID #### [facility] [address] [place] [address] Dr. Louis Britton Crystals LM Nom (Urine sed) NONE SEEN Normal NONE SEEN [facility] Comment on above: Performed By: #### C MP, LIPID #### [facility] [address] [place] [address] Dr. Louis Britton Epithelial cells LM Ql (Urine sed) MANY Abnormal NONE SEEN /RARE [facility] Comment on above: Performed By: #### C MP, LIPID #### [facility] [address] [place] [address] Dr. Louis Britton MUCOUS SMALL Abnormal NONE SEEN [facility] Comment on above: Performed By: #### C MP, LIPID #### [facility] [address] [place] [address] Dr. Louis Britton RBC 2-5 Abnormal 0-2 [facility] Comment on above: Performed By: #### C MP, LIPID #### [facility] [address] [place], [place] [address] Dr. Louis Britton WBC 2-5 Abnormal NONE SEEN [facility] Comment on above: Performed By: #### C MP, LIPID #### [facility] [address] [place], [place] [address] Dr. Louis Britton XR ABD FLAT UP_PA [...] VICKY ONTIVEROS Date: 2021-08-17 13:16 Normal [facility] Covid-19 PCR (CVDTB)on 07-18 SARS-CoV-2 (COVID-19) RNA DESIRE+probe Ql (Unsp spec) Detected Critically abnormal NOT DETECTED [facility] Comment on above: Result Comment: This test is not yet approved or cleared by the [place] FDA. When there are no FDA-approved or cleared tests available, and other criteria are met, FDA can make tests available under an emergency access mechanism called an Emergency Use Authorization (EUA). The EUA for this test is supported by the [place] of Health and Human Service's (HHS's) declaration [...] used). Performed By: #### C VDTBH #### [facility] [address] [place], [place] [address] Dr. Louis Britton CALPROTECTIN,FECALon 021 CALPROTECTIN,FECAL 95 ug/g High <=49 [facility] Comment on above: Result Comment: REFE RENCE INTERVAL: Calprotectin, Fecal by Immunoassay Less than 50 ug/g.........Normal 50-120 ug/g...............Borderline elevated, test should be re-evaluated in 4-6 weeks. 121 ug/g or greater.......Elevated Performed By: [facility] [address] [place] [address] Trim Carpenter: Mami Elias MD Performed By: #### C ALPR #### [facility] [address] [place] [address] FAT, STOOLon 07-24-2021 NEUTRAL FAT Normal Normal Normal [facility] Comment on above: Performed By: #### F ATST #### [address] [address] SPLIT FAT Normal Normal Normal [facility] Comment on above: Result Comment: INTE RPRETIVE INFORMATION: Fecal Fat Qualitative Neutral fats include the monoglycerides, diglycerides, and triglycerides while split fats are the free fatty acids that are liberated from them. Impaired synthesis or secretion of pancreatic enzymes or bile may cause an increase in neutral fats while an increase in split fats suggests impaired absorption of nutrients. Performed By: [facility] [address] [place] [address] Trim Carpenter: Mami Elias MD Performed By: #### F ATST #### [facility] [address] [place] [address] PANCREATIC ELASTASE,FECALon 07-24-2021 PANCREATIC ELASTASE,FECAL 139 ug/g Normal >=100 [facility] Comment on above: Result Comment: REFE RENCE INTERVAL: Pancreatic Elastase Fecal by Immunoassay Less than 100 ug/g............Severe insufficiency 100 - 199 ug/g................Moderate insufficiency 200 ug/g or greater...........Normal INTERPRETIVE INFORMATION: Pancreatic Elastase Fecal by Immunoassay Reference intervals do not apply for infants less than one month old. Performed by [facility], [address] [facility] [place] [address] www.[employer], Mami Elias MD - Lab. Director Performed By: #### E LAST #### [facility] [address] [place] [address] STOOL PATHOGEN PCR PANELon 1 09-20-2020 CAMPYLOBACTER GP. Not detected Normal NOT DETECTED [facility] Comment on above: Performed By: #### S TLPP #### [facility] [address] [place] [address] NOROVIRUS GI/GII Not detected Normal NOT DETECTED [facility] Comment on above: Performed By: #### S TLPP #### [facility] [address] [place] [id number] ROTAVIRUS A Not detected Normal NOT DETECTED [facility] Comment on above: Result Comment: The [...] Performed By: #### S TLPP #### [facility] [address] [place] [address] SALMONELLA SP. Not detected Normal NOT DETECTED [facility] Comment on above: Performed By: #### S TLPP #### [facility] [address] [place] [address] SHIGA TOXIN 1 Not detected Normal NOT DETECTED [facility] Comment on above: Performed By: #### S TLPP #### [facility] [address] [place] [address] SHIGA TOXIN 2 Not detected Normal NOT DETECTED [facility] Comment on above: Performed By: #### S TLPP #### [facility] [address] [place] [address] SHIGELLA SP. Not detected Normal NOT DETECTED [facility] Comment on above: Performed By: #### S TLPP #### [facility] [address] [place] [address] [employer] Not detected Normal NOT DETECTED [facility] Comment on above: Performed By: #### S TLPP #### [facility] [address] [place] [address] YERSINIA ENTEROCOLITICA Not detected Normal NOT DETECTED [facility] Comment on above: Performed By: #### S TLPP #### [facility] [address] [place] [address] CLOST DIFF. TOXIN, PCRon CLOST.DIFF NAP 1 STRAIN (Presumptive) Canceled Normal Not Detected [facility] Comment on above: Order Comment: TEST CLOST DIFF. TOXIN, PCR WAS CANCELLED, 07/20/2021 12:02 FORMED STOOL RECEIVED, UNABLE TO PERFORM TESTING. Performed By: #### C DTPC #### [address] [id number] CLOST.DIFF.TOXIN,PCR Canceled Normal [facility] Comment on above: Order Comment: TEST CLOST [...] days. Performed By: #### C DTPC #### [address] [id number] C. difficile toxin genes DESIRE+probe Ql (Stl) Canceled [facility] 6 [facility] Work Phone: Comment on above: This [...] Canceled See Below MG-Gastroente rology-Bolwel l 6 [facility] Work Phone: Comment on above: Reference Range: Not Detected CT [facility]BDOMEN AND PELVIS W IV CONTRAST Patient Name: JULIETH SPENCER STUDY: CT ABDOMEN AND PELVIS W IV CONTRAST; 07/20/2021 11:08 am INDICATION: rule out acute on chronic pancreatitis vs. acute Crohn's Flare. COMPARISON: 11/03/2019 ACCESSION NUMBER(S): [id number] ORDERING CLINICIAN: BRENDA YEBOAH TECHNIQUE: CT of [...] further assess (more content not included)... Normal [facility] CT Abdomen and Pelvis with I [...] fats suggests impaired absorption of nutrients.Performed By: [facility] [place] [id number] Director: Mami Elias MD Laboratory - Chemistry and C hemistry - challengeon 07-20-2021 Calprotectin (Stl) [Mass/Mass] 95 ug/g above high threshold <=49 [facility]-Gastroente rology-Bolwel l 6 I Work Phone: Comment on above: REFERENCE INTERVAL: Calprotectin, Fecal by Immunoassay Less than 50 ug/g.........Normal 50-120 ug/g...............Borderline elevated, test should be re-evaluated in 4-6 weeks. 121 ug/g or greater.......ElevatedPerformed By: [facility] [place] [id number] Director: Mami Elias MD Pancreatic Elastase, Stoolon 07-20-2021 Elastase.pancreatic (Stl) [Mass/Mass] 139 ug/g >=100 [facility]astro[facility] rology-Bolwel l 6 I Work Phone: Comment on above: REFERENCE INTERVAL: Pancreatic Elastase Fecal by Immunoassay Less than 100 ug/g............Severe insufficiency 100 - 199 ug/g................Moderate insufficiency 200 ug/g or greater...........NormalINTERPRETIVE INFORMATION: Pancreatic Elastase Fecal by ImmunoassayReference intervals do not apply for infants less than one month old.Performed by [facility], [address] [place] [address] www.[employer], Mami Elias MD - Lab. Director STOOL PATHOGEN PCR PANELon 09-19-2020 Lab Specimen Source Normal [facility] Comment on above: Performed By: #### S TLPP #### [facility] [address] [place] [address] Campylobacter sp DNA.diarrheagenic DESIRE+probe Ql (Stl) Not detected See Below [facility] 6 [facility] Work Phone: [phone] Comment on above: Reference Range: NOT DETECTED E. coli stx1 gene DESIRE+probe Ql (Unsp spec) Not detected See Below [facility] Work Phone: [phone] Comment on above: Reference Range: NOT DETECTED E. coli stx2 gene DESIRE+probe Ql (Unsp spec) Not detected See Below -[facility] 6 [facility] Work Phone: [phone] Comment on above: Reference Range: NOT DETECTED Norovirus genogroup I and II RNA DESIRE+probe Nom (Stl) Not detected See Below -[facility] Work Phone: [phone] Comment on above: Reference Range: NOT DETECTED Rotavirus RNA DESIRE+probe Nom (Stl) Not detected See Below -[facility] I Work Phone: [phone] Comment on above: Reference Range: NOT [...] Ql (Unsp spec) Not detected See Below -[facility] I Work Phone: [phone] Comment on above: Reference Range: NOT DETECTED Vibrio sp DNA DESIRE+probe Nom (Unsp spec) Not detected See Below -[facility] I Work Phone: [phone] Comment on above: Reference Range: NOT DETECTED Yersinia sp DNA DESIRE+probe Nom (Unsp spec) Not detected See Below -[facility] I Work Phone: [phone] Comment on above: SOURCE: Reference Ra nge: NOT DETECTED STOOL PATHOGEN PCR PANEL Not detected See Below [facility] l 6 I Work Phone: [phone] Comment on above: Reference Range: NOT DETECTED Amylase, Serumon 06-29-2021 Amylase [Catalytic activity/Vol] 18 U/L below low threshold 29 - 103 [facility] 6 I Work Phone: [phone] Reactive Protein, Serumon 06-29-2021 CRP [Mass/Vol] 0.13 mg/dL -Gastroe e [facility] 6 I Work Phone: [phone] Comment on above: REF VALUE< 1.00 Complete Blood Count + [facility] 06-29-2021 Basophils/100 WBC (Bld) 0.7 % 0.0 - 2.0 M[facility]Sal[facility] Centerl l 6 I Work Phone: [phone] Erythrocyte distribution width (RBC) [Ratio] 15.5 % above high threshold See Below [facility] I Work Phone: [phone] Comment on above: Reference Range: 11. 5 - 14.5 Hematocrit (Bld) [Volume fraction] 40.1 % See Below [facility] I Work Phone: [phone] Comment on above: Reference Range: 36. 0 - 46.0 Hemoglobin (Bld) [Mass/Vol] 12.8 g/dL See Below MGGastrohighland [facility] hospitaly-[facility] 6 I Work Phone: Comment on above: Reference Range: 12. 0 - 16.0 Lymphocytes/100 WBC (Bld) 34.1 % See Below MG-Gastroente rology-Bolwel l 6 [facility] Work Phone: [phone] Comment on above: Reference Range: 13. 0 - 44.0 MCHC (RBC) [Mass/Vol] 31.9 g/dL below low threshold See Below MG-Gastroente rology-Bolwel l 6 [facility] Work Phone: [phone] Comment on above: Reference Range: 32. 0 - 36.0 MCV (RBC) [Entitic vol] 98 fL 80 - 100 [facility]-Gastroente rology-Bolwel l 6 I Work Phone: [phone] Monocytes/100 WBC (Bld) 6.6 % 2.0 - 10.0 MG-Gastroente rology-Bolwel l 6 I Work Phone: [phone] Neutrophils/100 WBC (Bld) 57.3 % See Below MG-Gastroente rology-Bolwel l 6 [facility] Work Phone: [phone] Comment on above: Reference Range: 40. 0 - 80.0 Platelets (Bld) [#/Vol] 250 10*3/uL 150 - 450 [facility]-Gastroente rology-Bolwel l 6 [facility] Work Phone: [phone] RBC (Bld) [#/Vol] 4.08 {x10E12/L} See Below MG -Gastroente rology-Bolwel l 6 [facility] Work Phone: Comment on above: Reference Range: 4.0 0 - 5.20 WBC (Bld) [#/Vol] 8.8 10*3/uL 4.4 - 11.3 MG-Gas troente rology-Bolwel l 6 [facility] Work Phone: [phone] Complete Blood Count + Differential 0.06 {x10E9/L} See Below MG-Gastroente rology-Bolwel l 6 [facility] Work Phone: Comment on above: Reference Range: 0.0 0 - 0.10 Complete Blood Count + Differential 0.09 {x10E9/L} See Below MG-Gastroente rology-Bolwel l 6 I Work Phone: Comment on above: Reference Range: 0.0 0 - 0.70 Complete Blood Count + Differential 0.58 {x10E9/L} See Below MG-Gastroente rology-Bolwel l 6 I Work Phone: Comment on above: Reference Range: 0.1 0 - 1.00 Complete Blood Count + Differential 2.99 {x10E9/L} See Below [facility] 6 I Work Phone: Comment on above: Reference Range: 1.2 0 - 4.80 Complete Blood Count + Differential 5.01 {x10E9/L} See Below [facility] 6 I Work Phone: Comment on above: Reference Range: 1.2 0 - 7.70 Complete Blood Count + Differential 1.0 % 0.0 - 6.0 [facility] I Work Phone: Complete Blood Count + Differential 0.3 % 0.0 - 0.9 [facility] l 6 I Work Phone: Comment on above: Immature Granulocyte Count (IG) includes promyelocytes, myelocytes and metamyelocytes but does not include bands. Percent differential counts (%) should be interpreted in the context of the absolute cell counts (cells/L). Complete Blood Count + Differential 0.0 {/100_WBC} 0.0-0.0 [facility] 6 I Work Phone: Laboratory - Chemistry and C hemistry - challengeon 06-29-2021 Albumin BCP dye [Mass/Vol] 4.4 g/dL 3.4 - 5.0 MG-Gastroente rology-Bolwel l 6 I Work Phone: ALP [Catalytic activity/Vol] 59 U/L 33 - 110 [facility]-Gastroente rology-Bolwel l 6 [facility] Work Phone: [phone] ALT With P-5'-P [Catalytic activity/Vol] 13 U/L 7 - 45 [facility]-Gastroente rology-[facility]ol[facility]el l 6 [facility] Work Phone: [phone] Comment on above: Patients treated wit h Sulfasalazine may generate falsely decreased results for ALT. Anion gap [Moles/Vol] 14 mmol/L 10 - 20 MG- Gastroente rology-Bolwel l 6 [facility] Work Phone: [phone] AST With P-5'-P [Catalytic activity/Vol] 17 U/L 9 - 39 MG-Gastroente rology-Bolwel l 6 [facility] Work Phone: [phone] Bilirubin [Mass/Vol] 0.6 mg/dL 0.0 - 1.2 MG-G astroente rology-Bolwel l 6 I Work Phone: [phone] Calcium [Mass/Vol] 9.4 mg/dL 8.6 - 10.6 MG-Gas troente rology-Bolwel l 6 [facility] Work Phone: [phone] Chloride [Moles/Vol] 102 mmol/L 98 - 107 MG-G astroente rology-Bolwel l 6 [facility] Work Phone: [phone] CO2 [Moles/Vol] 25 mmol/L 21 - 32 MG-Gastro ente rology-Bolwel l 6 [facility] Work Phone: [phone] Creatinine [Mass/Vol] 0.92 mg/dL See Below MG- Gastroente rology-Bolwel l 6 [facility] Work Phone: [phone] Comment on above: Reference Range: 0.5 0 - 1.05 Glucose [Mass/Vol] 82 mg/dL 74 - 99 MG-Gas troente rology-[facility]olwel l 6 [facility] Work Phone: [phone] Potassium [Moles/Vol] 4.1 mmol/L 3.5 - 5.3 MG- Gastroente rology-Bolwel l 6 [facility] Work Phone: [phone] Protein [Mass/Vol] 7.8 g/dL 6.4 - 8.2 MG-Gas troente rology-[facility]ol[facility] l 6 [facility] Work Phone: [phone] Sodium [Moles/Vol] 137 mmol/L 136 - 145 MG-Gas troente rology-[facility]ol[facility] l 6 [facility] Work Phone: [phone] Urea nitrogen [Mass/Vol] 15 mg/dL 6 - 23 MG-Gastroente rology-[facility]ol[facility] l 6 [facility] Work Phone: [phone] Lipase, Serumon 06-29-2021 Lipase [Catalytic activity/Vol] 9 U/L 9 - 82 [facility]-Gastroente rology-[facility]ol[facility]el l 6 [facility] Work Phone: [phone] Comment on above: Venipuncture immedia tely after or during the administration of Metamizole may lead to falsely low results. Testing should be performed immediately prior to Metamizole dosing. No Panel Informationon 06-29 >60 >60 MG-Gastroente rology-Bolwel l 6 [facility] Work Phone: [phone] Comment on above: CALCULATIONS OF LEIDY MATED GFR ARE PERFORMED USING THE MDRD STUDY EQUATION FOR THE IDMS-TRACEABLE CREATININE METHODS. CLIN CHEM 2007;53:766-72 Tobacco Screening.on 021 Fall risk assessment a) No falls within the last year MG-Gastroente rology-[facility]ol[facility]el l 6 [facility] Work Phone: [phone] Tobacco use status [facility] a) Yes MG-Gastroente rology-Bolwel l 6 [facility] Work Phone: [phone] Tobacco Screening. Yes MG-Gas troente rology-Bolwel l 6 [facility] Work Phone: [phone] Urinalysison 06-29-2021 Color (U) YELLOW See Below MG-Gastroente rology-[facility]ol[facility] l 6 [facility] Work Phone: Comment on above: Reference Range: STR AW,YELLOW Glucose Ql (U) Negative NEGATIVE MG-Gastroe nte rology-Bolwel l 6 [facility] Work Phone: [phone] Ketones Ql (U) Negative NEGATIVE MG-Gastroe nte rology-Bolwel l 6 [facility] Work Phone: [phone] Leukocyte esterase Test strip Ql (U) Negative NEGATIVE MG-Gastroente rology-[facility]ol[facility]el l 6 [facility] Work Phone: [phone] pH (U) 6.0 [pH] 5.0 - 8.0 MG-Gastroente rology-[facility]ol[facility] l 6 [facility] Work Phone: [phone] Protein (U) [Mass/Vol] Negative NEGATIVE MG-Gastroente rology-[facility]ol[facility] l 6 [facility] Work Phone: [phone] RBC (U) [#/Vol] Negative NEGATIVE MG-Gastro ente rology-Bolwel l 6 [facility] Work Phone: [phone] Specific gravity (U) [Rel density] 1.016 1 See Below MG-Gastroente rology-Bolwel l 6 [facility] Work Phone: [phone] Comment on above: Reference Range: 1.0 05 - 1.035 Urinalysis Negative NEGATIVE MG-Gastroente rology-[facility]ol[facility] l 6 [facility] Work Phone: [phone] Urinalysis <2.0 0.0 - 1.9 MG-Gastroente rology-[facility]ol[facility] l 6 [facility] Work Phone: [phone] Urinalysis CLEAR CLEAR MG-Gastroente rology-[facility]ol[facility]el l 6 [facility] Work Phone: Urine Teston 06-29 HCG ( test) Ql (U) Negative Negative MG-Gastroente rology-Bolwel l 6 [facility] Work Phone: Otheron 02-12-2020 Patient Name: Noe Truong Date: 02/12/2020 8:49 AMMRN: [id number] Number: [id number] of : 1985Admit Type[facility]Ethnicity: Not or LatinoRace: Nael THACKER: Meka Ang , RODRIGOrocedure: ERCPIndications: Stent change vs Pancreatic stent removalComorbidities: chronic pancreatitis with possible stricture in HOP, s/p 7Fr stent placementPatient Profile: This is a 34 year old female.Providers: Meka Ang MD (Doctor), Vicky Salamanca RN (Nurse), Peg Bonilla RN (Nurse)Referring: Nehemiah Alexander [facility] CENTERedicines: Indomethacin 100 mg GA, Monitored Anesthesia CareComplications: No immediate complications.Procedure: Pre-Anesthesia [...] A pancreatic stent was visible on the 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 One stent was removed from the [...] pt will need to bring [facility] to the appointment with Dr Alexander.Procedure Code(s): --- Professional --- 45793, Endoscopic retrograde cholangiopancreatography (ERCP); with removal of foreign body(s) or stent(s) from biliary/pancreatic duct(s) 70320, Endoscopic catheterization of the pancreatic ductal system, radiological supervision and interpretationDiagnosis Code(s): --- Professional --- Z46.59, Encounter for fitting and adjustment of other gastrointestinal appliance and device R93.2, Abnormal findings on diagnostic imaging of liver and biliary tractCPT copyright 2019 [employer] [place] [employer]. All rights reserved.The codes documented in this report are preliminary and upon advanced solutions architect review may be revised to meet current compliance requirements.Attending Participation: I personally performed the entire procedure.Meka Ang MD02/12/2020 9:42:03 AMThis report has been signed electronically.Number of Addenda: 0Note Initiated On: 02/12/2020 8:49 AMTotal Procedure Duration Time 0 hours 22 minutes 51 seconds MG-Gastroente don-Lorenzo l 6 [facility] Work Phone: [email or web address] MG-Gastroente rology-Bolwel l 6 [facility] Work Phone: Otheron 11-12-2019 SEE BELOW MG-Gastroente rology-Bolwel l 6 [facility] Work Phone: Comment on above: Results will be sent on a separate report.The reference lab report can be found in [facility] (Inpatient) under the Results tab by Laboratory, Genetics by date of service. Vital Signs Date Time Vital Sign Value Performing Clinician Facility 12-05-2023 10:52-0400 Body height 160.[address] [facility] 12-05-2023 10:52-0400 Body mass index (BMI) [Ratio] 18.1 kg/m2 [facility] 12-05-2023 10:52-0400 Body weight 46.[address] [facility] 12-05-2023 10:52-0400 Diastolic blood pressure 97 mm[Hg] [facility] 12-05-2023 10:52-0400 Heart rate 93 /min [facility] 12-05-2023 10:52-0400 Respiratory rate 12 /min [facility] 12-05-2023 10:52-0400 Systolic blood pressure 145 mm[Hg] [facility] 11-06-2023 08:53-0500 Body temperature 95.9 [degF] Tray Burk MD Work Phone: [facility] 11-06-2023 08:53-0500 Diastolic blood pressure 72 mm[Hg] Tray Burk MD Work Phone: [facility] 11-06-2023 08:53-0500 Heart rate 69 /min Tray Burk MD Work Phone: [facility] 11-06-2023 08:53-0500 Respiratory rate 18 /min Tray Burk MD Work Phone: [facility] 11-06-2023 08:53-0500 SaO2% (BldA) [Mass fraction] 97 % Tray Burk MD Work Phone: [facility] 11-06-2023 08:53-0500 Systolic blood pressure 114 mm[Hg] Tray Burk MD Work Phone: [facility] 11-01-2023 23:11-0500 Body temperature 37.[address] [facility] Comment on above: Performed By: #### [id number] ####GARRY Schmid ([id number])[facility] ([facility])[address] [place] [address] 11-01-2023 21:48-0500 Body temperature 37.0 Tray Burk MD Work Phone: [facility] 11-01-2023 20:17-0500 Body temperature 37.[address] [facility] Comment on above: Performed By: #### [id number] ####GARRY Schmid ([id number])[facility] ([facility])[address] [place] [address] 11-01-2023 18:33-0500 Body temperature 37.0 Tray Burk MD Work Phone: [facility] 11-01-2023 18:05-0500 Body temperature 37.[address] [facility] Comment on above: Performed By: #### [id number] ####GARRY Schmid ([id number])[facility] ([facility])[address] [place] [address] 11-01-2023 16:24-0500 Body temperature 37.[address] [facility] Comment on above: Performed By: #### [id number] ####GARRY Schmid ([id number])[facility] ([facility])[address] [place] [address] 11-01-2023 16:22-0500 Body temperature 37.0 Tray Burk MD Work Phone: [facility] 11-01-2023 14:45-0500 Body temperature 37.[address] [facility] Comment on above: Performed By: #### [id number] ####GARRY Schmid ([id number])[facility] ([facility])[address] [place] [address] 11-01-2023 14:33-0500 Body temperature 37.0 Tray Burk MD Work Phone: [facility] 11-01-2023 12:51-0500 Body temperature 37.0 Tray Burk MD Work Phone: [facility] 11-01-2023 11:19-0500 Body temperature 37.[address] [facility] Comment on above: Performed By: #### [id number] ####GARRY Schmid ([id number])[facility] ([facility])[address] [place] [address] 11-01-2023 09:27-0500 Body temperature 37.0 Tray Burk MD Work Phone: [facility] 11-01-2023 06:58-0500 Body temperature 37.[address] [facility] Comment on above: Performed By: #### [id number] ####GARRY Schmid ([id number])[facility] ([facility])[address] [place] [address] 11-01-2023 06:04-0500 Body temperature 37.[address] [facility] Comment on above: Performed By: #### [id number] ####GARRY Schmid ([id number])[facility] ([facility])[address] [place] [address] 11-01-2023 05:02-0500 Body temperature 37.0 Tray Burk MD Work Phone: [facility] 11-01-2023 04:08-0500 Body temperature 37.0 Tray Burk MD Work Phone: [facility] 11-01-2023 03:13-0500 Body temperature 37.0 degrees Celsius [facility] Comment on above: Performed By: #### [id number] ####GARRY Schmid ([id number])[facility] ([facility])[address] [place] [address] 11-01-2023 02:37-0500 Body mass index (BMI) [Ratio] 18.24 kg/m2 Tray Burk MD Work Phone: [facility] 11-01-2023 02:37-0500 Body weight 48.2 kg Tray Burk MD Work Phone: [facility] 11-01-2023 01:29-0500 Body temperature 37.0 Tray Burk MD Work Phone: [phone] [place] [address] 11-01-2023 01:18-0500 Body height 162.6 cm Tray Burk MD Work Phone: [facility] 10-11-2023 19:59-0500 Body temperature 37.0 degrees Celsius [facility] Comment on above: Performed By: #### [id number] ####GARRY Schmid ([id number])[facility] ([facility])[address] [place] [address] 10-11-2023 19:59-0500 SaO2% (BldA) [Mass fraction] 100 % [facility] Comment on above: Performed By: #### [id number] ####GARRY Schmid ([id number])[facility] ([facility])[address] [place] [address] 10-11-2023 15:07-0500 Body temperature 37.[address] [facility] Comment on above: Performed By: #### [id number] ####GARRY Schmid ([id number])[facility] ([facility])[address] [place] [address] 10-11-2023 15:07-0500 SaO2% (BldA) [Mass fraction] 100 % [facility] Comment on above: Performed By: #### [id number] ####GARRY Schmid ([id number])[facility] ([facility])[address] [place] [address] 10-11-2023 10:15-0500 Body temperature 37.[address] [facility] Comment on above: Performed By: #### [id number] ####GARRY Schmid ([id number])[facility] ([facility])[address] [place] [address] 10-11-2023 10:15-0500 SaO2% (BldA) [Mass fraction] 99 % [facility] Comment on above: Performed By: #### [id number] ####GARRY Schmid ([id number])[facility] ([facility])[address] [place] [address] 08-19-2023 14:58-0500 Body mass index (BMI) [Ratio] 20.46 kg/m2 Tray Burk MD Work Phone: [phone] [place] [address] 08-19-2023 14:58-0500 Body temperature 98.1 [degF] Tray Burk MD Work Phone: [phone] [place] [address] 08-19-2023 14:58-0500 Body weight 52.4 kg Tray Burk MD Work Phone: [phone])[phone] [address] 08-19-2023 14:58-0500 Diastolic blood pressure 93 mm[Hg] Tray Burk MD Work Phone: [facility] 08-19-2023 14:58-0500 Heart rate 84 /min Tray Burk MD Work Phone: [facility] 08-19-2023 14:58-0500 Respiratory rate 18 /min Tray Burk MD Work Phone: [facility] 08-19-2023 14:58-0500 Systolic blood pressure 134 mm[Hg] Tray Burk MD Work Phone: [facility] 07-31-2023 15:00-0500 Body height 160.02 cm Nat Ball Other [employer] Other 07-31-2023 15:00-0500 Body mass index (BMI) [Ratio] 20.33 kg/m2 Nat Ball Other [employer] Other 07-31-2023 15:00-0500 Body weight 52.07 kg Nat Ball Other [employer] Other 07-31-2023 15:00-0500 Diastolic blood pressure 86 mm[Hg] Nat Ball Other [employer] Other 07-31-2023 15:00-0500 Respiratory rate 12 /min Nat Ball Other [employer] Other 07-31-2023 15:00-0500 Systolic blood pressure 122 mm[Hg] Nat Ball Other [employer] Other 07-22-2023 14:17-0500 Body mass index (BMI) [Ratio] 21.05 kg/m2 Tray Burk MD Work Phone: [facility] 07-22-2023 14:17-0500 Body temperature 97.7 [degF] Tray Burk MD Work Phone: [facility] 07-22-2023 14:17-0500 Body weight 53.9 kg Tray Burk MD Work Phone: [facility] 07-22-2023 14:17-0500 Diastolic blood pressure 94 mm[Hg] Tray Burk MD Work Phone: [facility] 07-22-2023 14:17-0500 Heart rate 106 /min Tray Burk MD Work Phone: [facility] 07-22-2023 14:17-0500 Respiratory rate 18 /min Tray Burk MD Work Phone: [facility] 07-22-2023 14:17-0500 SaO2% (BldA) [Mass fraction] 96 % Tray Burk MD Work Phone: [facility] 07-22-2023 14:17-0500 Systolic blood pressure 138 mm[Hg] Tray Burk MD Work Phone: [facility] 07-20-2023 11:34-0400 Body temperature 98.1 [degF] DO Nat Ball Work Phone: [facility] 07-20-2023 11:34-0400 Diastolic blood pressure 91 mm[Hg] DO Nat Ball Work Phone: [facility] 07-20-2023 11:34-0400 Heart rate 78 /min DO Nat Ball Work Phone: [facility] 07-20-2023 11:34-0400 Respiratory rate 16 /min DO Nat Ball Work Phone: [facility] 07-20-2023 11:34-0400 SaO2% (BldA) [Mass fraction] 98 % DO Nat Ball Work Phone: [facility] 07-20-2023 11:34-0400 Systolic blood pressure 135 mm[Hg] DO Nat Ball Work Phone: [facility] 07-20-2023 06:15-0400 Body weight 55.3 kg DO Nat Ball Work Phone: [facility] 07-19-2023 10:00-0400 Body height 160.02 cm DO Nat Ball Work Phone: [facility] 07-16-2023 02:38-0400 Diastolic blood pressure 87 mm[Hg] DO Nat Ball Work Phone: [facility] 07-16-2023 02:38-0400 Heart rate 67 /min DO Nat Ball Work Phone: [facility] 07-16-2023 02:38-0400 SaO2% (BldA) [Mass fraction] 100 % DO Nat Ball Work Phone: [facility] 07-16-2023 02:38-0400 Systolic blood pressure 131 mm[Hg] DO Nat Ball Work Phone: [facility] 07-16-2023 01:24-0400 Respiratory rate 16 /min DO Nat Ball Work Phone: [facility] 07-15-2023 20:41-0400 Body temperature 98.6 [degF] DO Nat Ball Work Phone: [facility] 07-15-2023 17:55-0400 Body height 160.02 cm DO Nat Ball Work Phone: [facility] 07-15-2023 17:55-0400 Body weight 51.9 kg DO Nat Ball Work Phone: [facility] 04-10-2023 11:15-0400 Body height 160.02 cm Nat Ball Other [facility] Other 04-10-2023 11:15-0400 Body mass index (BMI) [Ratio] 19.55 kg/m2 Nat Ball Other [facility] [facility] [employer] Other 04-10-2023 11:15-0400 Body weight 50.08 kg Nat Ball Other [employer] Other 04-10-2023 11:15-0400 Diastolic blood pressure 92 mm[Hg] Nat Ball Other [employer] Other 04-10-2023 11:15-0400 Respiratory rate 12 /min Nat Ball Other [employer] Other 04-10-2023 11:15-0400 Systolic blood pressure 135 mm[Hg] Nat Ball Other [employer] Other 12-17-2022 11:30-0400 Body height 160.02 cm Nat Ball Other [employer] Other 12-17-2022 11:30-0400 Body mass index (BMI) [Ratio] 19.38 kg/m2 Nat Ball Other [employer] Other 12-17-2022 11:30-0400 Body weight 49.62 kg Nat Ball Other [employer] Other 12-17-2022 11:30-0400 Diastolic blood pressure 70 mm[Hg] Nat Ball Other [employer] Other 12-17-2022 11:30-0400 Respiratory rate 12 /min Nat Ball Other [employer] Other 12-17-2022 11:30-0400 Systolic blood pressure 109 mm[Hg] Nat Ball Other [employer] Other 09-27-2022 12:10-0500 Body height 160.02 cm Nat E Ball Work Phone: [facility] [address] Work Phone: 09-27-2022 12:10-0500 Body mass index (BMI) [Ratio] 19.49 kg/m2 Nat E Ball Work Phone: JN-Pvgwehf-[facility]tckblxJac[facility] [address] Work Phone: 09-27-2022 12:10-0500 Body surface area Derived from formula 1.5 m2 Nat E Ball Work Phone: WW-Ahyobpm-YexsdoiJac[facility] [address] Work Phone: 09-27-2022 12:10-0500 Body weight 49.9 kg Nat E Ball Work Phone: CE-Qeagttp-ZxrqrmeJac[facility] [address] Work Phone: 09-27-2022 12:10-0500 Diastolic blood pressure 72 mm[Hg] Nat E Ball Work Phone: VC[facility]lb[facility]et[facility] 4[address] Work Phone: 09-27-2022 12:10-0500 Heart rate 70 /min Nat E Ball Work Phone: BT-Odblntn-Wnmxrsl[facility] [address] Work Phone: 09-27-2022 12:10-0500 Systolic blood pressure 106 mm[Hg] Nat E Ball Work Phone: NO-Zkswkgd-AujpuipHeart [facility] 4[address] Work Phone: 08-15-2022 11:45-0500 Diastolic blood pressure 75 mm[Hg] Nat Ball Other Phone: [facility] 08-15-2022 11:45-0500 Heart rate 73 /min Nat Ball Other Phone: [facility] 08-15-2022 11:45-0500 Respiratory rate 16 /min Nat Ball Other Phone: [facility] 08-15-2022 11:45-0500 SaO2% (BldA) [Mass fraction] 98 % Nat Ball Other Phone: [facility] 08-15-2022 11:45-0500 Systolic blood pressure 108 mm[Hg] Nat Ball Other Phone: [facility] 08-14-2022 23:53-0500 Body temperature 37.0 {degrees_C} Nat E Ball Work Phone: [facility] Work Phone: Comment on above: NOTE: PATIENT RESULTS ARE NOT CORRECTED FOR TEMPERATURE. 05-10-2022 11:41-0400 Body height 160 cm Vicky Whaley MD Work Phone: [facility] 05-10-2022 11:41-0400 Body weight 47.63 kg Vicky Whaley MD Work Phone: [facility] 05-10-2022 11:41-0400 Diastolic blood pressure 77 mm[Hg] Vicky Whaley MD Work Phone: [facility] 05-10-2022 11:41-0400 Heart rate 90 /min Vicky Whaley MD Work Phone: [facility] 05-10-2022 11:41-0400 Systolic blood pressure 118 mm[Hg] Vicky Whaley MD Work Phone: [facility] 05-08-2022 09:15-0400 Body height 160.02 cm Tondra Mapus Other [employer] Other 05-08-2022 09:15-0400 Body mass index (BMI) [Ratio] 19.47 kg/m2 Tondra Mapus Other [employer] Other 05-08-2022 09:15-0400 Body weight 49.85 kg Tondra Mapus Other [employer] Other 05-08-2022 09:15-0400 Diastolic blood pressure 73 mm[Hg] Tondra Mapus Other [employer] Other 05-08-2022 09:15-0400 Respiratory rate 18 /min Tondra Mapus Other [employer] Other 05-08-2022 09:15-0400 SaO2% (BldA) [Mass fraction] 96 % Tondra Mapus Other [employer] Other 05-08-2022 09:15-0400 Systolic blood pressure 116 mm[Hg] Tondra Mapus Other [employer] Other 03-12-2022 15:12-0400 Body height 160.02 cm No PCP None [facility] Work Phone: 03-12-2022 15:12-0400 Body mass index (BMI) [Ratio] 18.71 kg/m2 No PCP None [facility] [facility] Work Phone: 03-12-2022 15:12-0400 Body surface area Derived from formula 1.47 m2 No PCP None [facility] [facility] Work Phone: 03-12-2022 15:12-0400 Body temperature 98.24 [degF] No PCP None [facility] Work Phone: 03-12-2022 15:12-0400 Body weight 47.9 kg No PCP None [facility] -[facility] Work Phone: 03-12-2022 15:12-0400 Diastolic blood pressure 80 mm[Hg] No PCP None [facility] Work Phone: 03-12-2022 15:12-0400 Heart rate 72 /min No PCP None [facility] -[facility] Work Phone: 03-12-2022 15:12-0400 Respiratory rate 18 /min No PCP None [facility] Work Phone: 03-12-2022 15:12-0400 SaO2% (BldA) [Mass fraction] 100 % No PCP None [facility] [facility] Work Phone: 03-12-2022 15:12-0400 Systolic blood pressure 122 mm[Hg] No PCP None [facility] [facility] Work Phone: 03-12-2022 15:12-0400 4 1 No PCP None [facility] [facility] Work Phone: Comment on above: [facility] 01-22-2022 08:00-0400 Body temperature 97.88 [degF] No Pcp Required [facility] 01-22-2022 08:00-0400 Diastolic blood pressure 91 mm[Hg] No Pcp Required [facility] 01-22-2022 08:00-0400 Heart rate 63 /min No Pcp Required [facility] 01-22-2022 08:00-0400 Respiratory rate 18 /min No Pcp Required [facility] 01-22-2022 08:00-0400 SaO2% (BldA) [Mass fraction] 98 % No Pcp Required [facility] 01-22-2022 08:00-0400 Systolic blood pressure 131 mm[Hg] No Pcp Required [facility] 01-13-2022 11:05-0400 Body height 160.02 cm Marianne Tucker Other [employer] Other 01-13-2022 11:05-0400 Body mass index (BMI) [Ratio] 20.37 kg/m2 Marianne Dominguezler Other [employer] Other 01-13-2022 11:05-0400 Body temperature 98.9 [degF] Marianne Tucker Other [employer] Other 01-13-2022 11:05-0400 Body weight 52.16 kg Marianne Tucker Other [employer] Other 01-13-2022 11:05-0400 Respiratory rate 18 /min Marianne Tucker Other [employer] Other 01-13-2022 11:05-0400 SaO2% (BldA) [Mass fraction] 97 % Marianne Tucker Other [employer] Other 12-21-2021 10:47-0400 Body height 160.02 cm No PCP None [facility] Work Phone: 12-21-2021 10:47-0400 Body mass index (BMI) [Ratio] 19.49 kg/m2 No PCP None YE-[facility]hwcomab[facility] [place] Work Phone: 12-21-2021 10:47-0400 Body surface area Derived from formula 1.5 m2 No PCP None JQ-Yqjcazrn-Icfzzoc [facility] [address] Work Phone: 12-21-2021 10:47-0400 Body weight 49.9 kg No PCP None CE-Zmoxwjsv-Tium [facility] [address] Work Phone: 12-21-2021 10:47-0400 Diastolic blood pressure 62 mm[Hg] No PCP None AY-Cngtvnju-OdfpcxlHeart [facility] [address] Work Phone: 12-21-2021 10:47-0400 Heart rate 89 /min No PCP None [facility]brev[facility] [address] Work Phone: 12-21-2021 10:47-0400 Respiratory rate 17 /min No PCP None DT-Qbsdhaom-Dvc grin [facility] [address] Work Phone: 12-21-2021 10:47-0400 Systolic blood pressure 101 mm[Hg] No PCP None YA-Coqgzvlk-SgzfgvdHeart [facility] America [facility] [address] Work Phone: 12-21-2021 10:47-0400 5 1 No PCP None IK-Rprfycfh-Apyz[facility] [address] Work Phone: Comment on above: [facility] 12-11-2021 09:45-0400 Body height 160.02 cm Tondra Mapus Other [employer] Other 12-11-2021 09:45-0400 Body mass index (BMI) [Ratio] 19.48 kg/m2 Tondra Mapus Other [employer] Other 12-11-2021 09:45-0400 Body weight 49.9 kg Tondra Mapus Other [employer] Other 12-11-2021 09:45-0400 Diastolic blood pressure 93 mm[Hg] Tondra Mapus Other [employer] Other 12-11-2021 09:45-0400 Respiratory rate 20 /min Tondra Mapus Other [employer] Other 12-11-2021 09:45-0400 SaO2% (BldA) [Mass fraction] 99 % Tondra Mapus Other [employer] Other 12-11-2021 09:45-0400 Systolic blood pressure 129 mm[Hg] Tondra Mapus Other [employer] Other 11-01-2021 12:00-0500 Body temperature 96.8 [degF] No Pcp Required [facility] 11-01-2021 12:00-0500 Diastolic blood pressure 83 mm[Hg] No Pcp Required [facility] 11-01-2021 12:00-0500 Heart rate 74 /min No Pcp Required [facility] 11-01-2021 12:00-0500 Respiratory rate 15 /min No Pcp Required [facility] 11-01-2021 12:00-0500 SaO2% (BldA) [Mass fraction] 96 % No Pcp Required [facility] 11-01-2021 12:00-0500 Systolic blood pressure 133 mm[Hg] No Pcp Required [facility] 06-29-2021 14:44-0400 Body height 160.02 cm No [...] PHYSICIAN [facility] Start: 12-05-2023 End: 12-05-2023 ambulatory [facility] Work Phone: Start: 12-05-2023 End: 12-05-2023 Patient encounter procedure [facility] Physician [facility] Work Phone: Start: 11-29-2023 Refill Ramos Parekh MD Work Phone: Palliative Medicine Comment on above: Refill Request Start: 11-27-2023 Non-patient / Non-visit [facility] Physician [facility] Work Phone: Start: 11-21-2023 End: 11-22-2023 ambulatory [facility] Start: 11-21-2023 End: 11-21-2023 Telemedicine consultation with patient Mitch Munoz PharmD Work Phone: [facility] Comment on above: Type 1 diabetes ting itus without complication (CMS/HCC) Start: 11-14-2023 Telephone encounter Ramos hodges MD Work Phone: [facility] Comment on above: Patient Question Start: 11-14-2023 ambulatory TRAY BURK [facility] Start: 11-13-2023 Telephone encounter Ramos hodges MD Work Phone: [facility] Palliative Medicine Comment on above: Medication Question Start: 11-12-2023 End: 11-13-2023 ambulatory ALBERTINA BRAY [facility] Start: 11-11-2023 ambulatory Ramos Parekh MD Work Phone: [facility] Comment on above: Medication Start: 11-11-2023 Telephone encounter Ramos hodges MD Work Phone: [facility] Palliative Medicine Comment on above: Appointment Start: 11-08-2023 End: 11-08-2023 Telemedicine consultation with patient Ramos Parekh MD Work Phone: [facility]BI[facility]IC[facility] Start: 11-08-2023 End: 11-08-2023 ambulatory Ramos Parekh MD Work Phone: [facility] Palliative Medicine Comment on above: Hydomorphone Palliative [...] Evaluation and management of inpatient TRAY BURK [facility] Start: 10-31-2023 End: 11-06-2023 Evaluation and management of inpatient Tray David Bhargavi THACKER Work Phone: [facility] 6 Surgical Oncology Start: 10-28-2023 End: 10-28-2023 ambulatory Tondra Corbinus Other [employer] Other Start: 10-28-2023 Telephone encounter Faustino Castellano [facility] Start: 10-25-2023 Refill Ramos Parekh MD Work Phone: [employer] Comment on above: Refill Request; Refi ll Request Start: 10-15-2023 End: 10-15-2023 ambulatory Tona Shaquilleus Other [employer] Other Start: 10-15-2023 Telephone encounter Tondra Bharat [facility] Start: 10-11-2023 End: 10-29-2023 Evaluation and management of inpatient TRAY BURK [facility] Start: 10-03-2023 End: 10-03-2023 ambulatory Nat Medina Other [employer] Other Start: 10-03-2023 Telephone encounter [facility] Start: 10-02-2023 End: 10-02-2023 ambulatory Nat Medina Other [employer] Other Start: 10-02-2023 Office outpatient visit 15 minutes Nat Medina [facility] Start: 10-02-2023 End: 10-02-2023 Patient encounter procedure [facility] Physician Group- Start: 09-25-2023 End: 09-26-2023 Encounter for other preprocedural examination NAT Fischer [facility] Start: 09-25-2023 End: 09-26-2023 ambulatory TRAY Hernandez [facility] Start: 09-25-2023 End: 09-25-2023 Subsequent hospital visit by physician [address] [facility] Comment on above: 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) Start: 09-20-2023 End: 09-21-2023 ambulatory NAT MEDINA [facility] Start: 09-05-2023 End: 09-06-2023 ambulatory NAT MEDINA [facility] Start: 08-30-2023 End: 08-30-2023 ambulatory RAMOS PAREKH Facility:[facility] Start: 08-20-2023 Telephone encounter Ramos hodges MD Work Phone: [employer] [facility] Comment on above: Medication Problem Start: 08-19-2023 End: 08-20-2023 ambulatory TRAY Hernandez [facility] Start: 08-19-2023 End: 08-19-2023 Office outpatient visit 15 minutes Tray Burk MD Work Phone: [facility] Comment on above: 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); 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) Start: 08-02-2023 End: 08-02-2023 ambulatory RAMOS PAREKH Facility:[facility] Start: 08-01-2023 End: 08-01-2023 Refill Ramos Parekh MD Work Phone: [employer] Comment on above: Refill Request Start: 07-31-2023 End: 07-31-2023 ambulatory Nat Medina Other [employer] Other Start: 07-31-2023 Office outpatient visit 25 minutes Nat HAY [facility] Start: 07-29-2023 End: 07-29-2023 ambulatory Thiendrshanice Corbinus Other [employer] Other Start: 07-29-2023 Telephone encounter Tondra Mapus [facility] Start: 07-24-2023 End: 07-25-2023 ambulatory Nat Medina Facility:[facility] Start: 07-23-2023 End: 07-23-2023 ambulatory Nat Medina Other [employer] Other Start: 07-23-2023 Telephone encounter Nat RUANO [facility] Start: 07-22-2023 End: 07-23-2023 ambulatory NAT MEDINA [facility] Start: 07-22-2023 End: 07-23-2023 ambulatory TRAY BURK [facility] Start: 07-22-2023 End: 07-22-2023 Office outpatient visit 15 minutes Tray Burk MD Work Phone: [facility] Comment on above: Chronic abdominal pa in; Alcohol-induced acute pancreatitis, unspecified complication status Start: 07-18-2023 End: 07-18-2023 ambulatory Tona Shaquilleus Other [employer] Other Start: 07-18-2023 Telephone encounter Tondra Mapus [facility] Start: 07-17-2023 End: 07-17-2023 ambulatory Matt Bond MD Work Phone: Pain Management Comment on above: Pain Questionnaire Start: 07-17-2023 E-mail encounter maria e hernandez caregiver Matt Bond MD Work Phone: [facility] Start: 07-17-2023 Patient encounter procedure José Miguel Tobar [facility] Start: 07-16-2023 End: 07-16-2023 ambulatory Faustino Nicholson Other [place] [place] [employer] Other Start: 07-16-2023 Telephone encounter Faustino Nicholson [facility] Start: 07-16-2023 End: 07-20-2023 Evaluation and management of inpatient Nat Medina Facility:[facility] Start: 07-16-2023 End: 07-20-2023 Evaluation and management of inpatient DO Nat Carol Work Phone: [facility] Work Phone: Start: 07-09-2023 Telephone encounter Erin Oleary RN [employer] [facility] Comment on above: Care Coordination; F uture Appointment Refill Request Start: 06-25-2023 Telephone encounter Matt Bond MD Work Phone: Pain Management Start: 05-23-2023 ambulatory No Pcp CARYN Hernandez Start: 05-17-2023 End: 05-17-2023 ambulatory RAMOS PAREKH Facility:[facility] Start: 05-17-2023 End: 05-17-2023 Nutrition therapy Ramos [...] Time: 7:45 AM Referring Provider [facility] Work Phone: Start: 05-16-2023 ambulatory PCP UNKNOWN Facility:[id number] Start: 05-16-2023 FUV, Provider: Tray Burk, Status: Pen, Time: 12:40 PM Referring Provider Unknown [facility] Work Phone: Start: 05-14-2023 AUDIT Referring Prov ider Unknown [facility] Work Phone: Start: 05-13-2023 End: 05-13-2023 ambulatory Nat Medina Other [employer] Other Start: 05-13-2023 Telephone encounter Nat Medina [facility] Start: 05-09-2023 ambulatory PCP UNKNOWN Facility:[id number] Start: 04-12-2023 AUDIT Referring Prov ider Unknown [facility] DO Work Phone: Start: 04-10-2023 End: 04-10-2023 ambulatory Nat Medina Other [employer] Other Start: 04-10-2023 Office outpatient visit 25 minutes Nat Carol [facility] Start: 04-03-2023 End: 04-03-2023 ambulatory Nat Carol Other [employer] Other Start: 04-03-2023 Telephone encounter Nat RUANO [facility] Start: 03-14-2023 AUDIT Referring Prov ider Unknown KJ-[facility]vihwzgo-[facility] [address] Work Phone: Start: 03-04-2023 End: 03-04-2023 ambulatory Nat Meidna Other [employer] Other Start: 03-04-2023 Telephone encounter Nat Medina ALDEN [facility] Start: 03-01-2023 Office outpatient visit 25 minutes Referring Provider Unknown CG-Wwdvnqjk-HtturklHeart [facility] [place] [address] Work Phone: Start: 03-01-[address] Nat Medina Facility:[id number] Start: 02-20-2023 AUDIT Referring Prov ider Unknown JM-Arwjjuua-QwdesndHeart [facility] America [facility] [place] [address] Work Phone: Start: 02-14-2023 End: 02-14-2023 ambulatory Tondra Bharat Other [employer] Other Start: 02-14-2023 Encounter by [employer] r link Faustino [facility] Start: 02-14-2023 Telephone encounter Faustino Castellano [facility] Start: 02-12-2023 Letter encounter Olga angela Start: 01-22-2023 AUDIT Referring Prov ider Unknown JE-Nmovbuky-UfwbqimJac[facility] [address] Work Phone: Start: 12-28-2022 Office outpatient visit 25 minutes Referring Provider Unknown NP-Zizascxg-Jsiufubvmd Care-[facility] [address] DO Work Phone: Start: 12-28-2022 ambulatory PCP UNKNOWN Facility:9 [facility] Start: 12-20-2022 Chart Update Referring Prov ider Unknown [place]-Avsmvyb-MrgmxwzJac[facility] 4600 Work Phone: Start: 12-17-2022 End: 12-17-2022 ambulatory Nat Medina Other [employer] Other Start: 12-17-2022 Encounter by [employer] r link Faustino [facility] Start: 12-17-2022 Office outpatient visit 25 minutes Nat Medina [facility] Start: 12-10-2022 End: 12-10-2022 ambulatory Tondra Shaquilleus Other [employer] Other Start: 12-10-2022 Telephone encounter Faustino Castellano [facility] Start: 11-26-2022 AUDIT Referring Prov ider Unknown JG-Qkquiwtb-ZjyhvsdJacobson [facility] [address] Work Phone: Start: 11-02-2022 Office outpatient visit 25 minutes Referring Provider Unknown VP-Stadhwlo-DsnxjzpJacobson [facility] [address] Work Phone: Start: 11-02-2022 Patient encounter procedure Referring Provider Unknown PB-Jqmakmfo-EjupkmtJacobson [facility] [address] Work Phone: Start: 10-29-2022 AUDIT Referring Prov ider Unknown RN-Urgexrcf-VixsaupJacobson [facility] [address] Work Phone: Start: 10-17-2022 End: 10-17-2022 ambulatory Nat Medina Other [employer] Other Start: 10-17-2022 Telephone encounter Nat RUANO [facility] Start: 10-08-2022 End: 10-08-2022 ambulatory Nat Medina Other [employer] Other Start: 10-08-2022 Telephone encounter Nat RUANO [facility] Start: 10-02-2022 End: 10-02-2022 ambulatory Nat Medina Other [employer] Other Start: 10-02-2022 Telephone encounter Nat Medina [facility] Start: 09-28-2022 ANGELES, Provider : Ramos Parekh, Status: Pen, Time: 8:00 AM Nat Fischer Carol Work Phone: NE-Mpaptqw-DosenqeJacobson [facility] 4300 Work Phone: Start: 09-27-2022 Office outpatient visit 25 minutes Nat Medina Work Phone: IQ-Xxkkffs-BzdlhywJacobson [facility] 4300 Work Phone: Start: 09-21-2022 AUDIT Nat Aaliyah schmid Work Phone: RR-Ivvksgvg-LpdjbamJacobson [facility] [address] Work Phone: Start: 09-04-2022 End: 09-06-2022 ambulatory UNKNOWN PROVIDER Facility:[facility] Start: 09-04-2022 End: 09-04-2022 Patient encounter procedure Ольга Chapin Work Phone: [facility] Comment on above: Arrived Start: 08-30-2022 AUDIT Nat Cash l Work Phone: OD-Wubhowfk-IpqftlgJacobson [facility] [address] Work Phone: Start: 08-29-2022 Encounter for other preprocedural examination Nat Carol Other [employer] Other Start: 08-29-2022 Pre-procedure evaluation check Nat Medina Other [employer] Other Start: 08-23-2022 Office consultation new/estab patient 60 min Nat Aaliyah Carol Work Phone: BV-Uwifbxe-Tmuwdef 2100 Work Phone: Start: 08-14-2022 End: 08-15-2022 Emergency department patient visit Troy Maki [facility] Adult ED [address] 21 Start: 08-08-2022 AUDIT No PCP None MG-Medicin [facility] [address] Work Phone: Start: 08-02-2022 AUDIT No PCP None [facility] Work Phone: Start: 07-27-2022 ANGELES, Provider : Ramos Parekh, Status: Xavier, Time: 9:30 AM No PCP None RN-Bstdwlmbrwsgegfn-Xvjh n [place] [facility] Work Phone: Start: 07-27-2022 Office outpatient visit 40 minutes No PCP None LJ-Abyvaqiv-WcylphfJacobson [facility] [address] Work Phone: Start: 07-27-2022 Patient encounter procedure No PCP None JU-Owzspavg-NdnsddwJacobson [facility] [address] Work Phone: Start: 07-27-2022 ANGELES, Provider : Ramos Parekh, Status: Xavier, Time: 8:30 AM No PCP None XL-Yhhnefwcnndgdfxx-Ztdy n [place] [facility] Work Phone: Start: 07-25-2022 AUDIT No PCP None MG-Gastroe nterology-Admi n [place] [facility] Work Phone: Start: 07-09-2022 Telephone encounter Vicky Whaley MD Work Phone: [facility] Gastroenterology [facility] Comment on above: Release Of Medical R ecords Start: 07-06-2022 Office outpatient visit 40 minutes No PCP None MM-Mphkvdii-NtjqlmgJacobson [facility] [address] Work Phone: Start: 07-06-2022 Patient encounter procedure No PCP None SD-Ngcptnif-MrnsykpJacobson [facility] [address] Work Phone: Start: 06-22-2022 Office outpatient visit 40 minutes No PCP None PV-Bptopasw-FcidssvJacobson [facility] [address] Work Phone: Start: 06-12-2022 Telephone encounter Provider Vinicio lal Comment on above: ERCP 2 MONTHS Start: 06-11-2022 Orders Only Stefanie Solorzano APRN.DIRECTOR BLOOD BANK Work Phone: Gastroenterology Comment on above: Refill Request Start: 06-06-2022 End: 06-14-2022 Evaluation and management of inpatient [facility] Facility:[facility] Start: 05-14-2022 ambulatory Vicky lincoln MD Work Phone: Gastroenterology Comment on above: Not sure if it's imp ortant Start: 05-14-2022 Telephone encounter Vicky Whaley MD Work Phone: Gastroenterology Comment on above: EUS ERCP Start: 05-11-2022 Office outpatient visit 40 minutes No PCP None ET-Oldnhaek-YuwrqlgJacobson [facility] [address] Work Phone: Start: 05-11-2022 Patient encounter procedure No PCP None NA-Jltkxcmo-BomglbkJacobson [facility] [address] Work Phone: Start: 05-10-2022 End: 05-10-2022 Patient encounter procedure Vicky Whaley MD Work Phone: Gastroenterology Comment on above: Other chronic pancre atitis (HCC) (Primary Dx) Start: 05-09-2022 Telephone encounter Vicky Whaley MD Work Phone: Gastroenterology Comment on above: prescreen Start: 05-08-2022 (PUMP/CGM) Pump / Sensor Tondra Mapus [facility] Start: 05-08-2022 End: 05-08-2022 ambulatory Tondra Mapus Other [employer] Other Start: 05-07-2022 End: 05-08-2022 ambulatory TONDRA MAPUS Facility: Start: 05-02-2022 Refill Stefanie Solorzano APRN.DIRECTOR BLOOD BANK Work Phone: [facility] Comment on above: Refill Request Start: 05-01-2022 ambulatory Gregor Hernandez [facility] Start: 05-01-2022 Patient encounter procedure Gregor Greggalmaz [facility] Comment on above: SPP Inflammatory Con ditions - Treatment Referral (Titus); Insurance Authorization ([place] Submitted) Start: 05-01-2022 Telephone encounter [facility] Provider David spangler Comment on above: Appointment (Schd vi sit) Start: 04-30-2022 End: 04-30-2022 ambulatory Sagar Guillen MD Work Phone: General Surgery Comment on above: Chronic pancreatitis , unspecified pancreatitis type (HCC) [K86.1 (ICD-10-CM)] (Primary Dx) Start: 04-30-2022 End: 04-30-2022 Telemedicine consultation with patient Sagar Guillen MD Work Phone: [facility] Start: 04-27-2022 ambulatory Stefanie Solorzano APRN.DIRECTOR BLOOD BANK Work Phone: Gastroenterology Comment on above: EUS Start: 04-25-2022 Telephone encounter No PCP None MG- Gastroenterology-Admi n [place] WILLIAMI Work Phone: Start: 04-19-2022 Telephone encounter Stefanie buenrostro APRN.DIRECTOR BLOOD BANK Work Phone: Gastroenterology Comment on above: Request Outside [facility] Records Start: 04-19-2022 AUDIT No PCP None MG-Medicin e-[facility] [address] Work Phone: Start: 04-13-2022 ambulatory Sagar Guillen MD Work Phone: General Surgery Comment on above: COVID positive Start: 04-09-2022 End: 04-09-2022 ambulatory Tondra Mapus Other [employer] Other Start: 04-09-2022 Telephone encounter Anthony Guillen MD Work Phone: General Surgery Comment on above: 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; 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 - Other Start: 03-15-2022 Result Review No PCP None MG-Gastro enterology-Math er [facility] Work Phone: Start: 03-15-2022 End: 03-15-2022 ambulatory Tondra Mapus Other [employer] Other Start: 03-15-2022 Telephone encounter Faustino [facility] Start: 03-01-2022 AUDIT No PCP None MG-Gastroe nterology-Math er [facility] Work Phone: Start: 02-27-2022 AUDIT No PCP None MG-Gastroe nterology-Math er [facility] Work Phone: Start: 02-23-2022 Office outpatient visit 40 minutes No PCP None IA-Kmkficvn-AqbhybeHeart Of America [facility] [place] Work Phone: Start: 02-23-2022 Patient encounter procedure No PCP None OO-Bigsahqp-TzrctjyJacobson [facility] [address] Work Phone: Start: 02-19-2022 AUDIT No PCP None MG-Gastroe nterology-Math er D[facility] Work Phone: Start: 02-16-2022 End: 02-17-[address] NAT MEDINA Facility:H1 Start: 02-14-2022 AUDIT No PCP None MG-Gastroe nterology-Math er D[facility] Work Phone: Start: 01-31-2022 AUDIT No PCP None MG-Medicin e-[facility] [address] Work Phone: Start: 01-30-2022 End: 01-30-2022 ambulatory Tondra Mapus Other [employer] Other Start: 01-30-2022 Nursing evaluation o f patient and report Tondra Mapus [facility] Start: 01-22-2022 AUDIT No PCP None MG-Gastroe nterology-Math er DHI Work Phone: Start: 01-16-2022 Chart Update No PCP None MG-Gastroe nterology-Admi n [place] I Work Phone: Start: 01-16-2022 End: 01-22-2022 Evaluation and management of inpatient Jean Pierre [place] [id number] [id number] Start: 01-13-2022 End: 01-13-2022 ambulatory Marianne Tucker Other [employer] Other Start: 01-13-2022 Office outpatient visit 15 minutes Marianne Tucker [facility] Start: 12-26-2021 End: 12-26-2021 ambulatory Tondra Mapus Other [employer] Other Start: 12-26-2021 Telephone encounter Tondra Mapus [facility] Start: 12-21-2021 NPV, Provider: Shorty Koehler, Status: Pen, Time: 10:45 AM No PCP None YA-Xtqwrsce-Kpjfnlq [facility] [address] Work Phone: Start: 12-13-2021 End: 12-13-2021 ambulatory Tondra Mapus Other [employer] Other Start: 12-13-2021 Telephone encounter Tondra Mapus [facility] Start: 12-11-2021 (DM) Diabetes Faustino Nicholson [facility] Start: 12-11-2021 End: 12-11-2021 ambulatory Faustino Nicholson Other [place] [employer] Other Start: 11-29-2021 NPV, Provider: Shorty Koehler, Status: Pen, Time: 1:30 PM No PCP None BS-Pzmcqmfiaroalnmd-Yqwr er DHI Work Phone: Start: 11-27-2021 Chart Update No PCP None MG-Gastroe nterology-Math er [facility] Work Phone: Start: 11-17-2021 AUDIT No PCP None MG-Medicin e-[facility] [address] Work Phone: Start: 11-17-2021 Office outpatient visit 40 minutes No PCP None RH-Wzueefcd-GilolukJacobson [facility] [address] Work Phone: Start: 11-17-2021 Patient encounter procedure No PCP None NI-Vjothamz-BhenvjfJacobson [facility] [address] Work Phone: Start: 2021 AUDIT No PCP None MG-Gastroe nterology-Math er [facility] Work Phone: Start: 11-08-2021 AUDIT No PCP None MG-Gastroe nterology-Math er [facility] Work Phone: Start: 10-24-2021 End: 11-01-2021 Evaluation and management of inpatient Edgar [facility] [id number] Rm [id number] Start: 10-02-2021 AUDIT [...] ne w 60 minutes No PCP None HN-Jesqwmjdcjzmxaqw-Vykw ell 6 DHI Work Phone: Start: 06-22-2021 ambulatory SAMY Binu LONGO JR Facili ty:H1 Start: 07-04-2020 End: 07-04-2020 Encounter for gynecological examination (general) (routine) with abnormal findings Nat Medina Other [employer] Other Start: 07-04-2020 End: 07-04-2020 Gynecological examination abnormal Nat Medina Other [employer] Other Start: 06-15-2020 End: 06-15-2020 Gynecological examination normal Nat Carol Other [employer] Other Procedures Date Procedure Procedure Detail Performing [...] Serum or Plasma NAT MEDINA Start: 11-06-2023 End: 11-06-2023 Glucose quantitative blood xcpt reagent strip Tray Burk MD Work Phone: Start: 11-06-2023 Glucose [Mass/volume] in Serum or Plasma NAT BALL Start: 11-06-2023 Glucose [Mass/volume] in Serum or Plasma NAT BALL Start: 11-06-2023 Glucose quantitative blood xcpt reagent strip Tray Burk MD Work Phone: Start: 11-05-2023 Glucose quantitative blood xcpt reagent strip Tray Burk MD Work Phone: Start: 11-05-2023 Glucose [Mass/volume] in Serum or Plasma NAT BALL Start: 11-05-2023 Glucose quantitative blood xcpt reagent strip Tray Burk MD Work Phone: Start: 11-05-2023 Glucose [Mass/volume] in Serum or Plasma NAT BALL Start: 11-05-2023 Glucose quantitative blood xcpt reagent strip Tray Burk MD Work Phone: Start: 11-05-2023 ADULT DISCHARGE DIET NAT MEDINA Start: 11-05-2023 Glucose [Mass/volume] in Serum or Plasma NAT BALL Start: 11-05-2023 Glucose quantitative blood xcpt reagent strip Tray Burk MD Work Phone: Start: 11-05-2023 Glucose [Mass/volume] in Serum or Plasma NAT BALL Start: 11-05-2023 Glucose quantitative blood xcpt reagent strip Tray Burk MD Work Phone: Start: 11-05-2023 DIETARY NUTRITION SUPPLEMENTS NAT Coello ALL Start: 11-05-2023 DISCHARGE ACTIVITY NAT BALL Start: 11-05-2023 DISCHARGE DRAIN/TUBE CARE NAT BALL Start: 11-05-2023 NOTIFY PROVIDER (DO NOT PROMPT FOR PARAMETERS) NAT BALL Start: 11-05-2023 WEIGHT LIFTING RESTRICTIONS NAT BAL L Start: 11-05-2023 WOUND CARE NAT BALL Start: 11-05-2023 CBC panel - Blood by Automated count NAT BALL Start: 11-05-2023 Comprehensive metabolic 2000 panel - Serum or Plasma NAT BALL Start: 11-05-2023 Magnesium [Mass/volume] in Serum or Plasma NAT BALL Start: 11-05-2023 Glucose [Mass/volume] in Serum or Plasma NAT BALL Start: 11-05-2023 Comprehensive metabolic panel Bárbara Holguin COMMUNICATIONS DIRECTOR-DIRECTOR BLOOD BANK Work Phone: Start: 11-05-2023 Glucose quantitative blood [...] NAT MEDINA Start: 11-04-2023 IP CONSULT TO SALES OPERATIONS MANAGER NAT MEDINA Start: 11-04-2023 Glucose quantitative blood [...] MEDINA Start: 11-04-2023 RENAL FUNCTION PANEL NAT CAROL Start: 11-04-2023 Glucose [Mass/volume] in Serum or Plasma NAT CAROL Start: 11-04-2023 Renal function panel Jose Armando [...] Cholesterol [Mass/volume] in Body fluid Samy Dickerson COMMUNICATIONS DIRECTOR-DIRECTOR BLOOD BANK, DNP Work Phone: Start: 11-02-2023 Cholesterol serum/whole blood total Atul Dickerson COMMUNICATIONS DIRECTOR-DIRECTOR BLOOD BANK, DNP Work Phone: Start: 11-02-2023 Glucose quantitative blood xcpt reagent strip Blayne Ellis MD Work Phone: Start: 11-02-2023 TRANSFER PATIENT TO NEW UNIT NAT AGARWAL Start: 11-02-2023 Glucose [Mass/volume] in Serum or Plasma ANT MEDINA Start: 11-02-2023 Glucose quantitative blood xcpt [...] Serum or Plasma NAT MEDINA Start: 11-02-2023 Magnesium [Mass/volume] in Serum or Plasma NAT MEDINA Start: 11-02-2023 RENAL FUNCTION PANEL NAT MEDINA [...] VENOUS FULL PANEL NAT Schmid Start: 11-01-2023 Magnesium [Mass/volume] in Serum or [...] Start: 11-01-2023 IP CONSULT TO ENDOCRINOLOGY NAT CASH Binu Start: 11-01-2023 RENAL FUNCTION PANEL NAT MEDINA [...] in Serum or Plasma NAT Start: 11-01-2023 Phosphate [Mass/volume] in Serum or Plasma NAT Start: 11-01-2023 TYPE AND SCREEN NAT Start: 11-01-2023 Ct abdomen & pelvis w/contrast material Kim Rhodes MD Work Phone: Start: 10-31-2023 Vnpnxr 3 years/> phys/qhp skill Kim Griffin MD Work Phone: Start: 10-31-2023 STAPHYLOCOCCUS AUREUS/MRSA COLONIZATION, CULTURE NAT Start: 10-31-2023 Calcium total Wilian Mcgregor MD Work Phone: Start: 10-31-2023 Hepatic function panel Wilian Mcgregor MD Work Phone: Start: 10-31-2023 FULL CODE NAT Start: 10-31-2023 ADMIT TO INPATIENT NAT [employer] Start: 10-31-2023 Cul prsmptv pthgnc organism scrn w/colony estimj Kim Rhodes MD Work Phone: Start: 10-29-2023 Glucose [Mass/volume] in Serum or Plasma NAT Start: 10-29-2023 DISCHARGE PATIENT NAT Start: 10-29-2023 CT LYMPHANGIOGRAPHY A P UNILATERAL MALDONADO GILL BALL Start: 10-29-2023 Glucose [Mass/volume] in Serum or Plasma NAT Start: 10-29-2023 Glucose [Mass/volume] in Serum [...] Blood by Automated count NAT BALL Start: 10-28-2023 Comprehensive metabolic 2000 panel - [...] 10-25-2023 Magnesium [Mass/volume] in Serum or Plasma NAT Start: 10-25-2023 Glucose [Mass/volume] in Serum or Plasma NAT Start: 10-24-2023 Glucose [Mass/volume] in Serum or Plasma NAT Start: 10-24-2023 Glucose [Mass/volume] in Serum or Plasma NAT Start: 10-24-2023 Glucose [Mass/volume] in Serum or Plasma NAT Start: 10-24-2023 PHARMACY TO DOSE VANCO NAT Start: 10-24-2023 CT ABDOMEN PELVIS W IV CONTRAST NAT Start: 10-24-2023 Glucose [Mass/volume] in Serum or Plasma NAT Start: 10-24-2023 VANCOMYCIN, TROUGH NAT Start: 10-24-2023 Glucose [Mass/volume] in Serum or Plasma NTA Start: 10-24-2023 CBC panel - Blood by [...] panel - Blood by Automated count Start: 10-22-2023 Comprehensive metabolic 2000 panel - Serum or Plasma Start: 10-22-2023 Magnesium [Mass/volume] in Serum or Plasma Start: 10-21-2023 Glucose [Mass/volume] in Serum or Plasma Start: 10-21-2023 Glucose [Mass/volume] in Serum or Plasma Start: 10-21-2023 US GUIDED PERCUTANEOUS PERITONEAL OR RETROPERITONEAL FLUID COLLECTION DRAINAGE Start: 10-21-2023 STERILE FLUID CULTURE/SMEAR NAT [facility] Binu Start: 10-21-2023 Glucose [Mass/volume] in Serum or Plasma Start: 10-21-2023 Glucose [Mass/volume] in Serum or Plasma Start: 10-21-2023 Glucose [Mass/volume] in Serum or Plasma Start: 10-21-2023 CBC panel - Blood by Automated count Start: 10-21-2023 Comprehensive metabolic 2000 panel - Serum or Plasma Start: 10-21-2023 Magnesium [Mass/volume] in Serum or Plasma NAT BALL Start: 10-21-2023 VANCOMYCIN NAT BALL Start: 10-21-2023 [...] 10-20-2023 Magnesium [Mass/volume] in Serum or Plasma NAT Start: 10-20-2023 Glucose [Mass/volume] in Serum or [...] PERCUTANEOUS PERITONEAL OR RETROPERITONEAL FLUID COLLECTION DRAINAGE Start: 10-18-2023 Glucose [Mass/volume] in Serum or [...] - DO NOT USE IN ORDER SETS Start: 10-17-2023 CBC panel - Blood by [...] PICC LINE Start: 10-15-2023 IP CONSULT TO SALES OPERATIONS MANAGER Start: 10-15-2023 IP CONSULT TO NUTRITION SERVICES TAYLORJUNIE Emma Start: 10-15-2023 STAPHYLOCOCCUS AUREUS/MRSA COLONIZATION, CULTURE Start: [...] ALL Start: 10-14-2023 DISCHARGE DRAIN/TUBE CARE NAT BALL Start: 10-14-2023 WALKER ROLLING NAT MEDINA Start: 10-14-2023 DISCHARGE ACTIVITY NAT MEDINA Start: 10-14-2023 NOTIFY PROVIDER (DO NOT PROMPT FOR PARAMETERS) NAT Start: 10-14-2023 WEIGHT LIFTING RESTRICTIONS NAT Schmid Start: 10-14-2023 WOUND CARE NAT Start: 10-14-2023 IP CONSULT TO NUTRITION SERVICES LIONEL Carter BALL Start: 10-14-2023 Glucose [Mass/volume] in Serum or Plasma NAT Start: 10-14-2023 POCT GLUCOSE METER NAT Start: 10-14-2023 CBC panel - Blood by Automated count NAT Start: 10-14-2023 Comprehensive metabolic 2000 panel - [...] NAT Start: 10-13-2023 ADMIT TO INPATIENT NAT Start: 10-13-2023 Glucose [Mass/volume] in Serum [...] or Plasma Start: 10-13-2023 POCT GLUCOSE METER NAT Start: 10-13-2023 Glucose [Mass/volume] in Serum [...] 10-12-2023 Glucose [Mass/volume] in Serum or Plasma NAT Start: 10-12-2023 Glucose [Mass/volume] in Serum or [...] Serum or Plasma Start: 10-11-2023 VERAB/VERIFY ABORH NAT BALL Start: 10-11-2023 Glucose [Mass/volume] in Serum or Plasma Start: 10-11-2023 BLOOD GAS ARTERIAL Start: 10-11-2023 TYPE AND SCREEN Start: 10-11-2023 PREPARE RBC Start: 10-11-2023 ANESTHESIA PERIPHERAL BLOCK NAT CASH Binu Start: 10-11-2023 ADMIT TO INPATIENT NAT Start: 10-11-2023 POCT GLUCOSE METER Start: 09-25-2023 CT PANCREAS PRE OP EVALUATION WITH CONTRAST TRAY WINTER Start: 09-25-2023 CBC panel - Blood by [...] of 2) Zoster Vaccines (1 of 2) [facility] Start: 06-15-2030 DTaP/Tdap/Td Vaccines (6 - Td or Tdap) DTaP/Tdap/Td Vaccines (6 - Td or Tdap) [facility] Start: 06-15-2030 Urine microalbumin profile DTaP,Tdap,Td Vaccine (7 - Td or Tdap) [facility] Start: 06-15-2030 [facility] Start: 11-02-2024 Hepatitis B surface antibody level LDL Cholesterol [facility] Start: 03-25-2024 Hemoglobin A1c measurement HbA1C [facility] Start: 01-29-2024 End: 01-29-[address] [facility] Start: 01-29-2024 End: 01-29-2024 Patient encounter procedure 01/29/2024 9:40 AM EDT Office Visit [facility] [place] [address] [address] [place] [address] [place] [id number] [address] Department of Medicine-[place] [address] [facility] Start: 12-25-2023 Hemoglobin A1c measurement [facility] Start: 12-24-2023 End: 12-24-2023 Patient encounter procedure 12/24/2023 9:30 AM EDT Office Visit [place] [address] [address] [place] [phone] Magi Ramesh PA-C [address] [address] Department of Medicine-[place] [address] [facility] Start: 12-24-2023 End: 12-24-2023 Telemedicine consultation with patient 12/24/2023 8:00 AM EDT Telemedicine Clinical Support [place] [address] [place] [phone] Mitch Munoz, PharmD [address] [place] [address] [facility] Start: 12-17-2023 End: 12-17-2023 Telemedicine consultation with patient 12/17/2023 1:00 PM EDT Telemedicine Clinical Support [facility] [address] [place] [address] Patricia Addison RDN, KWAKU [facility] Start: 11-14-2023 Meningococcal B Vaccine: Consider Based On Risk (2 of 4 - Increased Risk Bexsero 2-dose series) Meningococcal B Vaccine: Consider Based On Risk (2 of 4 - Increased Risk Bexsero 2-dose series) [facility] Start: 11-14-2023 End: 11-14-2023 ambulatory [facility] Start: 11-12-2023 End: 11-12-[address] [facility] Start: 10-11-2023 End: 10-11-2023 Admission to same day surgery center 10/11/2023 11:35 AM EST - 10/11/2023 6:[address] [facility] [place] [address] [place] [phone] [place] [id number] Connervilleguerrero Johnson Department of Surgery-Surgical Oncology [place], [place] [id number] Pancreatectomy [04105 (CPT )] 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 [place] [id number] [place] [id number] [place] [id number] [facility] [facility] Department of Surgery-[place] [address] [facility] [place] Start: 08-19-2023 End: 08-19-2023 Patient encounter procedure 08/19/2023 2:45 PM EST Office Visit [facility] [address] [place] [address] [place] [id number] [address] Department of Surgery-[place]urgical [place] [address] [facility] Start: 08-19-2023 End: 08-19-2024 CBC panel - Blood by Automated count CBC Lab Routine Alcohol-induced chronic pancreatitis (CMS/HCC) Expected: 08/19/2023 (Approximate), Expires: 08/19/2024 [facility] Work Phone: Comment on above: Expected: 08/19/2023 (Approximate), Expi res: 08/19/2024 Start: 08-19-2023 End: 08-19-2024 Comprehensive metabolic 2000 panel - Serum or Plasma Comprehensive Metabolic Panel Lab Routine Alcohol-induced chronic pancreatitis (CMS/HCC) Expected: 08/19/2023 (Approximate), Expires: 08/19/2024 [facility] Work Phone: Comment on above: Expected: 08/19/2023 (Approximate), Expi res: 08/19/2024 Start: 08-19-2023 End: 08-19-2024 CT Abdomen and Pelvis W contrast IV CT abdomen pelvis w IV contrast Imaging Routine Alcohol-induced chronic pancreatitis (CMS/HCC) Expected: 08/19/2023 (Approximate), Expires: 08/19/2024 [facility] Service Area Work Phone: Comment on above: Expected: 08/19/2023 (Approximate), Expi res: 08/19/2024 Start: 08-19-2023 End: 08-19-2024 EKG 12 lead EKG 12 lead ECG Routine Alcohol-induced chronic pancreatitis (CMS/HCC) Expected: 08/19/2023 (Approximate), Expires: 08/19/2024 [facility] Work Phone: Comment on above: Expected: 08/19/2023 (Approximate), Expi res: 08/19/2024 Start: 08-19-2023 End: 08-19-2024 Hemoglobin A1c/Hemoglobin.total in Blood Hemoglobin A1C Lab Routine Alcohol-induced chronic pancreatitis (CMS/HCC) Expected: 08/19/2023 (Approximate), Expires: 08/19/2024 [facility] Work Phone: Comment on above: Expected: 08/19/2023 (Approximate), Expi res: 08/19/2024 Start: 08-19-2023 End: 10-20-2023 PT and aPTT panel - Platelet poor plasma by Coagulation assay Coagulation Screen Lab Routine Alcohol-induced chronic pancreatitis (CMS/HCC) Expected: 08/19/2023 (Approximate), Expires: 10/20/2023 [facility] Work Phone: Comment on above: Expected: 08/19/2023 (Approximate), Expi res: 10/20/2023 Start: 07-22-2023 End: 07-22-2024 Albumin [Mass/volume] in Serum or Plasma by Bromocresol purple (BCP) dye binding method Albumin Lab Routine Chronic abdominal pain Alcohol-induced acute pancreatitis, unspecified complication status Expected: 07/22/2023 (Approximate), Expires: 07/22/2024 [facility] Work Phone: Comment on above: Expected: 07/22/2023 (Approximate), Expi res: 07/22/2024 Start: 07-22-2023 End: 07-22-2024 Comprehensive metabolic 2000 panel - Serum or Plasma Comprehensive metabolic panel Lab Routine Chronic abdominal pain Alcohol-induced acute pancreatitis, unspecified complication status Expected: 07/22/2023 (Approximate), Expires: 07/22/2024 [facility] Work Phone: Comment on above: Expected: 07/22/2023 (Approximate), Expi res: 07/22/2024 Start: 07-22-2023 End: 07-22-2024 Prealbumin [Mass/volume] in Serum or Plasma Prealbumin Lab Routine Chronic abdominal pain Alcohol-induced acute pancreatitis, unspecified complication status Expected: 07/22/2023 (Approximate), Expires: 07/22/2024 [facility] Service Area Work Phone: Comment on above: Expected: 07/22/2023 (Approximate), Expi res: 07/22/2024 Start: 07-22-[address] [facility] Start: 07-21-[address] [facility] Start: 07-20-2023 [facility] Start: 07-17-2023 Referral to final touch up painter [facility] Start: 07-16-2023 End: 07-16-2023 [facility] Start: 07-16-[address] [facility] Start: 07-16-2023 Referral to biological science technician [facility] Start: 07-15-2023 Computed tomography of abdomen and pelvis with contrast CT abdomen pelvis w con [facility] Start: 07-15-2023 CT Abdomen and Pelvis W contrast IV [facility] Start: 07-15-2023 Bacteria identified in Urine by Culture [facility] Start: 05-17-2023 Influenza vaccination [facility] Start: 03-27-2023 Hemoglobin A1c measurement HbA1C [facility] Start: 03-27-2023 Hemoglobin A1c/Hemoglobin.total in Blood HbA1C [facility] Start: 03-01-2023 ANGELES, Provider: Ramos Parekh, Status: Pen, Time: 8:30 AM ANGELES, Provider: Ramos Parekh, Status: Pen, Time: 8:30 AM XF[facility]vepbveb[facility] [address] Work Phone: Start: 12-28-2022 FUV, Provider: Ramos Parekh, Status: Pen, Time: 10:00 AM FUV, Provider: Ramos Parekh, Status: Pen, Time: 10:00 AM JD-Kvqifhjk-Plxzctk[facility] [address] Work Phone: Start: 12-26-2022 Hemoglobin A1c measurement Diabetes: Hemoglobin A1C [facility] Start: 12-12-2022 End: 12-12-2022 Patient encounter procedure 12/12/2022 Procedure Visit Dentistry Ольга Simmons [address] [place] [id number] [facility] Start: 11-23-2022 SURGCMC, Provider: Tray Burk, Status: Pen, Time: 7:00 AM SURGCMC, Provider: Tray Burk, Status: Pen, Time: 7:00 AM UZ-Rjpsdbrw-Tznxbad [facility] [address] Work Phone: Start: 11-14-2022 End: 11-14-2022 Patient encounter procedure 11/14/2022 Procedure Visit Dentistry Connor Chapin [address] [address] [facility] Start: 11-02-2022 VIRREJI, Provider: Ramos Parekh, Status: Pen, Time: 8:00 AM ANGELES, Provider: Ramos Parekh, Status: Pen, Time: 8:00 AM DF-Wnnrbjqv-Pzzgoso [facility] [address] Work Phone: Start: 11-01-2022 Hepatitis B surface antibody level LDL Cholesterol [facility] Start: 11-01-2022 Lipid panel [facility] Start: 10-28-2022 Thyroid stimulating hormone measurement [facility] Start: 09-28-2022 Patient encounter procedure [facility] Start: 09-28-2022 ANGELES, Provider: Ramos Parekh, Status: Pen, Time: 8:00 AM VIRFUVVICKI, Provider: Ramos Parekh, Status: Pen, Time: 8:00 AM JA-Litqyjtf-Xydbojw [facility] [address] Work Phone: Start: 09-27-2022 FUV, Provider: Tray Burk, Status: Pen, Time: 11:40 AM FUV, Provider: Tray Burk, Status: Pen, Time: 11:40 AM LF-Ordegwtp-Mmeckbw [facility] [address] Work Phone: Start: 08-15-2022 End: 08-16-2023 Dicyclomine 20 mg Oral Tablet 2 Times a Day Before Meals ; Tablet (BENTYL)DOSE = 20 mg Oral Once Start: 15-Aug-2022 End: 15-Aug-2023 Ordered: 15-Aug-[address] [facility] Start: 08-14-2022 ERCPANS, Provider: Lisa Lee, Status: Pen, Time: 10:00 AM ERCPANS, Provider: Lisa Lee, Status: Pen, Time: 10:00 AM [facility] Work Phone: Start: 07-27-2022 VIRFUALEJANDRA, Provider: Ramos Parekh, Status: Pen, Time: 9:30 AM VIRFUVHOME, Provider: Ramos Parekh, Status: Pen, Time: 9:30 AM KJ-Ufkznppu-[facility]tvfodg[facility] [address] Work Phone: Start: 07-27-2022 ANGELES, Provider: Ramos Parekh, Status: Pen, Time: 8:30 AM VIRFUVHOME, Provider: Ramos Parekh, Status: Pen, Time: 8:30 AM MN-Vgmloaub-CkjoazxJac[facility] [address] Work Phone: Start: 06-16-2022 Influenza vaccination Influenza Vaccine (#1) [facility] Start: 05-17-2022 Influenza vaccination INFLUENZA (#1) [facility] Start: 05-14-2022 End: 07-14-2022 CBC W Auto Differential panel - Blood CBC + DIFF Lab Routine Blood in mouth of unknown source Expected: 05/14/2022, Expires: 07/14/2022 [facility] Work Phone: Comment on above: Expected: 05/14/2022, Expires: Start: 05-11-2022 ANGELES, Provider: Ramos Parekh, Status: Pen, Time: 9:00 AM VIRFUVHOMAaliyah, Provider: Ramos Parekh, Status: Pen, Time: 9:00 AM AJ-Jkhqytxr-SyrqhmmJac[facility] [address] Work Phone: Start: 04-09-2022 FUV, Provider: Rebel Gordon, Status: Pen, Time: 10:00 AM FUV, Provider: Rebel Gordon, Status: Pen, Time: 10:00 AM [facility] Work Phone: Start: 03-15-2022 NPV, Provider: Rebel Gordon, Status: Pen, Time: 11:40 AM NPV, Provider: Rebel Gordon, Status: Pen, Time: 11:40 AM [facility] Work Phone: Start: 02-23-2022 FUV, Provider: Ramos Parekh, Status: Pen, Time: 4:30 PM FUV, Provider: Ramos Parekh, Status: Pen, Time: 4:30 PM BJ[facility] [address] Work Phone: Start: 02-23-2022 SURGWEST, Provider: Shorty Koehler, Status: Pen, Time: 12:40 PM SURGWEST, Provider: Shorty Koehler, Status: Pen, Time: 12:40 PM [facility] Work Phone: Start: 02-19-2022 ERCPANS, Provider: Lisa Lee, Status: Pen, Time: 9:00 AM ERCPANS, Provider: Lisa Lee, Status: Pen, Time: 9:00 AM QM-Sbvlksfk-MekvpmdJac[facility] [address] Work Phone: Start: 02-19-2022 EUSANS, Provider: Lisa Lee, Status: Pen, Time: 8:00 AM EUSANS, Provider: Lisa Lee, Status: Pen, Time: 8:00 AM YW-Pndexlxa-[facility]fpofsr[facility] [address] Work Phone: Start: 02-16-2022 FUV, Provider: Ramos Parekh, Status: Pen, Time: 11:30 AM FUV, Provider: Ramos Parekh, Status: Pen, Time: 11:30 AM [facility] Work Phone: Start: 02-16-2022 Patient encounter procedure [facility] Start: 01-26-2022 Patient encounter procedure [facility] Start: 01-26-2022 SURGWEST, Provider: Shorty Koehler, Status: Pen, Time: 12:00 PM SURGWEST, Provider: Shorty Koehler, Status: Pen, Time: 12:00 PM TZ-Asjnpamn-Mdxwzqn [facility] [address] Work Phone: Start: 01-17-2022 End: 01-18-2023 Naloxone Injectable 0.4 mg IntraVenous Push Once ; (NARCAN)DOSE = 0.2 mg IntraVenous Push Once, PRN patient is unarousable, and respiratory rate lessClinician Notes: HOLD MED SPECIALIST Infusion and notify H.O. immediately Start: 17-Jan-2022 End: 17-Jan-2023 Ordered: 17-Jan-2022 Cathy Donato Intent Comments: HOLD MED SPECIALIST Infusion and notify H.O. immediately [facility] Comment on above: HOLD MED SPECIALIST Infusion and notify H.O. immedi ately Start: 01-16-2022 End: 01-17-2023 Sodium Chloride 0.9% Injectable Flush Peripheral Line ; via Peripheral LineVolume = 10 mL IntraVenous Flush Every 8 Hours and as Needed Start: 16-Jan-2022 End: 16-Jan-2023 Ordered: 16-Jan-[address] [facility] Start: 01-16-2022 End: 01-17-2023 Glucagon Injectable 1 [...] Once BG reaches 100 mg/dL or greater. [facility] Comment on above: IF patient DOES NOT have secure IV acces s & is Unconscious, Conscious, NPO or Unable to Eat or Drink. Repeat until BG reaches 100 mg/dL or greater. Discontinue Once BG reaches 100 mg/dL or greater. Start: 01-16-2022 ERCPANS, Provider: Lisa Lee, Status: Xavier, Time: 8:00 AM ERCPANS, Provider: Lisa Lee, Status: Pen, Time: 8:00 AM MR-Qwjoztkx-Nnqncty [facility] [address] Work Phone: Start: 12-21-2021 NPV, Provider: Shorty Koehler, Status: Xavier, Time: 10:45 AM NPV, Provider: Shorty Koehler, Status: Pen, Time: 10:45 AM WE-Qmpxcbmk-Onjcszv [facility] [address] Work Phone: Start: 11-29-2021 NPV, Provider: Shorty Koehler, Status: Pen, Time: 1:30 PM NPV, Provider: Shorty Koehler, Status: Xavier, Time: 1:30 PM [facility] Work Phone: Start: 11-29-2021 Patient encounter procedure Pain Shobha zoya Au Start: 11-17-2021 Patient encounter procedure [facility] [place] Start: 11-17-2021 VIRREJI, Provider: Ramos Parekh, Status: Xavier, Time: 2:30 PM SAURAVFUALEJANDRA, Provider: Ramos Parekh, Status: Xavier, Time: 2:30 PM [facility] Work Phone: Start: 10-26-2021 End: 10-29-2021 Iohexol (Omnipaque 350-Radiology Contrast) . ; (OMNIPAQUE)DOSE = 82.5 mL IntraVenous Push OnceCa.5 mL/Kg/DOSE x 55 Kg = 82.5 mL/Dose (Daily Total is 82.5 mL)LABS: Blood Urea Nitrogen, Serum,7,26-Oct-2021 11:08:32 Creatinine, Serum,0.51,26-Oct-2021 11:08:32 Start: 26-Oct-2021 End: 28-Oct-2021 Ordered: 26-Oct-[address] [facility] Start: 10-25-2021 End: 10-26-2022 Dextrose 10% in Water Infusion (Intensive Insulin OS) ; Conditional OrderIV Bag Volume = 500 mL Run at: 50 mL/hr Start: 25-Oct-2021 End: 25-Oct-2022 Ordered: 25-Oct-[address] [facility] Start: 10-24-2021 End: 10-25-2022 [facility] Comment on above: IF patient DOES NOT have secure IV acces s & is Unconscious, Conscious, NPO or Unable to Eat or Drink. Repeat until BG reaches 100 mg/dL or greater. Discontinue Once BG reaches 100 mg/dL or greater. Start: 09-21-2021 FUVPRE, Provider: Brenda Yeboah, Status: Pen, Time: 1:30 PM FUVPRE, Provider: Brenda Yeboah, Status: Xavier, Time: 1:30 PM [facility] Work Phone: Start: 04-30-2021 COVID-19 VACCINE (3 - Moderna risk series) COVID-19 VACCINE (3 - Moderna risk series) [facility] Start: 04-30-2021 [facility] Start: 11-12-2020 Pneumococcal vaccination [facility] Start: 11-12-2020 Pneumococcal Vaccine: Pediatrics (0 to 5 Years) and At-Risk Patients (6 to 64 Years) (2 - PCV) Pneumococcal Vaccine: Pediatrics (0 to 5 Years) and At-Risk Patients (6 to 64 Years) (2 - PCV) [facility] Start: 11-05-2020 Cyanocobalamin vitamin b-12 Vitamin B-12 [facility] Start: 11-05-2020 Vitamin D25-OH Vitamin D25-OH [facility] Start: 11-05-2020 [facility] Start: 2017 HPV TESTING HPV TESTING [facility] Start: 2017 Screening for malignant neoplasm of cervix HPV Testing [facility] Start: 2008 PAP TESTING PAP TESTING [facility] Start: 2008 Screening for malignant neoplasm of cervix [facility] Start: 2006 HEPATITIS A (1 of 2 - Risk 2-dose series) HEPATITIS A (1 of 2 - Risk 2-dose series) [facility] Start: 2006 Hepatitis A Vaccine (1 of 2 - Risk 2-dose series) Hepatitis A Vaccine (1 of 2 - Risk 2-dose series) [facility] Start: 2006 Hepatitis A Vaccines (1 of 2 - Risk 2-dose series) Hepatitis A Vaccines (1 of 2 - Risk 2-dose series) [facility] Start: 2006 SHINGRIX VACCINE (1 of 2) SHINGRIX VACCINE (1 of 2) [facility] Start: 2006 Urine microalbumin profile [facility] Start: 2006 Urine screening for protein [facility] Start: 2006 Zoster Vaccines (1 of 2) Zoster Vaccines (1 of 2) [facility] Start: 2006 [facility] Start: 2005 ANNUAL PCP TEAM CHRONIC DISEASE VISIT ANNUAL PCP TEAM CHRONIC DISEASE VISIT [facility] Start: 2005 Hepatitis B surface antibody level LDL CHOLESTEROL [facility] Start: 2005 Hepatitis C screening [facility] Start: 2005 HIV SCREENING HIV SCREENING [facility] Start: 2005 HIV screening HIV Screening [facility] Start: 2005 MMR (1 of 2 - Risk 2-dose series) MMR (1 of 2 - Risk 2-dose series) [facility] Start: 2005 MMR Vaccine (1 of 2 - Risk 2-dose series) MMR Vaccine (1 of 2 - Risk 2-dose series) [facility] Start: 2005 Tetanus + diphtheria + acellular pertussis vaccine (product) [facility] Start: 2002 HIV screening HIV Test [facility] Start: 01-03-2001 Varicella vaccination [facility] Start: 1997 3 comp foot exam completed DIABETIC FOOT EXAM [facility] lat[facility] Start: 1997 Diabetic foot examination [facility] Start: 1997 Glaucoma screening [facility] Start: 1997 Hepatitis B screening URINE ALBUMIN:CREATININE RATIO [facility] Start: 1997 Hepatitis C antibody, confirmatory test DILATED RETINAL EXAM [facility] Start: 1997 Meningococcal B Vaccine: Consider Based On Risk (1 of 4 - Increased Risk) Meningococcal B Vaccine: Consider Based On Risk (1 of 4 - Increased Risk) [facility] Start: 1997 MENINGOCOCCAL B: Consider based on risk (1 of 4 - Increased Risk Bexsero 2-dose series) MENINGOCOCCAL B: Consider based on risk (1 of 4 - Increased Risk Bexsero 2-dose series) [facility] Start: 1997 MENINGOCOCCAL B: Consider based on risk (1 of 4 - Increased Risk) MENINGOCOCCAL B: Consider based on risk (1 of 4 - Increased Risk) [facility] Start: 1993 PNEUMOCOCCAL (1 - PCV) PNEUMOCOCCAL (1 - PCV) [facility] Start: 1993 Pneumococcal vaccination Pneumococcal Vaccine (1 - PCV) [facility] Start: 1992 Hemoglobin A1c/Hemoglobin.total in Blood HBA1C [facility] Start: 1988 HEPATITIS A (1 of 2 - Risk 2-dose series) HEPATITIS A (1 of 2 - Risk 2-dose series) [facility] Start: 1988 Hepatitis B Surface Antibody Hepatitis B Surface Antibody [facility] Start: 1988 [facility] Start: 05-09-1988 COVID-19 Vaccine (#1) COVID-19 Vaccine (#1) [facility] Start: 1987 Diabetes: Celiac Disease Screening Diabetes: Celiac Disease Screening [facility] Start: 1987 Hepatitis B Vaccines (1 of 3 - 3-dose series) Hepatitis B Vaccines (1 of 3 - 3-dose series) [facility] Start: 1987 Screening for malignant neoplasm of breast Mammography shared decision making (35 through 39 years) [facility] Start: 1987 Screening for osteoporosis [facility] Start: 1987 TB Test TB Test [facility] Start: 1987 Yearly Adult Physical Yearly Adult Physical [facility] Start: 1987 [facility] End: 11-02-2023 Cholesterol [Mass/volume] in Body fluid [facility] Work Phone: End: 09-25-2023 CT Pancreas W contrast IV [facility] Work Phone: Comment on above: Once for 1 Occurrences starting 09/25/19 until 09/25/2023 ECG 12 Lead [facility] Work Phone: End: 05-13-2023 EGD - THERAPEUTIC, EUS, OR TUBE INTERVENTIONS EGD - THERAPEUTIC, EUS, OR TUBE INTERVENTIONS Endoscopy Routine Other chronic pancreatitis (HCC) 1 Occurrences starting 05/13/2022 until 05/13/2023 [facility] Work Phone: Comment on above: 1 Occurrences starting 05/13/2022 until 05/13/2023 EKG 12 lead EKG 12 lead ECG Routine Alcohol-induced chronic pancreatitis (CMS/HCC) 09/20/2023 4:42 PM EST [facility] Work Phone: Electrocardiogram, 1 2-lead PRN ACS symptoms [facility] Work Phone: End: 05-13-2023 ERCP ERCP Endoscopy Routine Other chronic pancreatitis (HCC) 1 Occurrences starting 05/13/2022 until 05/13/2023 [facility] Work Phone: Comment on above: 1 Occurrences starting 05/13/2022 until 05/13/2023 End: 11-07-2023 Glucose [Mass/volume] in Serum or Plasma [facility] Work Phone: Glucose measurement estimated from glycated hemoglobin [facility] End: 10-31-2023 Incentive spirometry Instruct [facility] Work Phone: Nausea Nausea [facility] Patient Education Pancreatitis (DC) [facility] Work Phone: Patient referral [facility] Work Phone: Pncrtect dstl stot w /o pncrtcojejunostomy Pancreatectomy Alcohol-induced chronic pancreatitis (CMS/HCC) 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) [facility] Work Phone: End: 11-02-2023 Review Testing- Fluid Source [facility] Work Phone: [facility] Immunizations Immunization Date Immunization Notes Care Provider Fa cility 10-17-2023 haemophilus influenz ae type b vaccine, PRP-T conjugate Tray Burk MD Work Phone: [facility] Work Phone: 10-17-2023 meningococcal B vacc ine, recombinant, OMV, adjuvanted Tray Bukr MD Work Phone: [facility] Work Phone: 10-17-2023 meningococcal oligosaccharide (groups A, C, Y and W-135) diphtheria toxoid conjugate vaccine (MCV4O) Tray Burk MD Work Phone: [facility] Work Phone: 10-17-2023 Tray Vasquez Work Phone: [facility] 07-16-2023 influenza, injectabl e, quadrivalent, preservative free DO Nat Medina Work Phone: [facility] 04-02-2021 Moderna COVID-19 Vac cine 100 MCG/0.5ML Intramuscular Suspension No PCP None [facility] 03-05-2021 Moderna COVID-19 Vac cine 100 MCG/0.5ML Intramuscular Suspension No PCP None [facility] 07-04-2020 influenza virus vacc ine, split virus (incl. purified surface antigen) Nat Medina Other [employer] Other 07-04-2020 influenza virus vacc ine, unspecified formulation Matt Bond MD Work Phone: [facility] 06-15-2020 diphtheria, tetanus toxoids and acellular pertussis vaccine, unspecified formulation Nat Medina Other [facility] 06-15-2020 tetanus toxoid, redu manny diphtheria toxoid, and acellular pertussis vaccine, adsorbed No PCP None [facility] [place] [facility] Work Phone: 11-12-2019 pneumococcal polysaccharide vaccine, 23 valent Tray Burk MD Work Phone: [facility] Work Phone: 09-11-2016 TD(adult) unspecifie d formulation No PCP None [facility] 05-08-2014 tetanus and diphther ia toxoids, adsorbed, preservative free, for adult use (5 Lf of tetanus toxoid and 2 Lf of diphtheria toxoid) Nat Medina Other [facility] 12-06-2000 measles, mumps and rubella virus vaccine No PCP None [facility] [place] [facility] Work Phone: 05-08-1993 diphtheria, tetanus toxoids and acellular pertussis vaccine, unspecified formulation No PCP None -Gastroenterol ogy- [facility] Work Phone: 05-08-1993 trivalent poliovirus vaccine, live, oral No PCP None -[facility]- [facility] Work Phone: 08-31-1991 haemophilus influenz ae type b vaccine, conjugate unspecified formulation No PCP None [facility] [place] [facility] Work Phone: 05-20-1991 diphtheria, tetanus toxoids and pertussis vaccine No PCP None -Gastroenterology- [place] [facility] Work Phone: 05-20-1991 measles, mumps and rubella virus vaccine No PCP None [facility] [place] [facility] Work Phone: 05-20-1991 trivalent poliovirus vaccine, live, oral No PCP None [facility] Work Phone: 01-21-1989 diphtheria, tetanus toxoids and [...] Phone: Payers Date Payer Category Payer Self-pay [id number] 2022 Private Health Insurance [id number] 2022 Medicaid [id number] [id number] 2022 Medicaid [facility] MEDICAID [facility] COMMUNITY PLAN MEDICAID [id number] 2022-Present [phone] [address] [place] [address] Medicaid [id number] [id number]. [id number] 2021 Medicaid [id number]. 1.13.159.2. 7.3.339062.315 2021 Unknown 2021 Unknown ANTHEM BLUE CARD PPO OOS [id number] 2021-Present [phone] [address] [place] [address] PPO [id number] [id number]. 7.3.199026.315 2019 Unknown MMO MMO SUPERMED PLUS [id number] 2019-Present [phone] [address] [place] [address] PPO [id number] 1.2.840.937708.1.13.159.2. 7.3.008719.315 1987 Unknown [id number] 2.16.840.1.145337.3.579.2. 593 1987 Unknown [id number] 2.16.840.1.692242.3.579.2. 593 1987 Unknown [id number] 2.16.840.1.195782.3.579.2. 593 1987 Unknown [id number] 2.16.840.1.907840.3.579.2. 593 1987 Unknown [id number] 2.16.840.1.856276.3.579.2. 593 1987 Unknown [id number] 2.16.840.1.966766.3.579.2. 593 1987 Unknown [id number] 2.16.840.1.194619.3.579.2. 732 1987 Unknown [id number] 2.16.840.1.415441.3.579.2. 1259 1987 Unknown [id number] 2.16.840.1.508318.3.579.2. 1244 1987 Unknown [id number] 2.16.840.1.955103.3.579.2. 356 1987 Unknown [id number] 2.16.840.1.231566.3.579.2. 356 1987 Unknown [id number] 2.16.840.1.102233.3.579.2. 356 1987 Unknown [id number] 2.16.840.1.224260.3.579.2. 356 1987 Unknown [id number] 2.16.840.1.248658.3.579.2. 1245 1987 Unknown [id number] 2.16.840.1.515026.3.579.2. 1244 1987 Unknown [id number] 2.16.840.1.205657.3.579.2. 1244 1987 Unknown [id number] 2.16.840.1.547131.3.579.2. 1244 1987 Unknown [id number] 2.16.840.1.275183.3.579.2. 1244 1987 Unknown [id number] 2.16.840.1.237566.3.579.2. 1244 1987 Unknown [id number] 2.16.840.1.872350.3.579.2. 1244 1987 Unknown [id number] 2.16.840.1.588901.3.579.2. 1244 1987 Unknown [id number] 2.16840.1.986142.3.579.2. 1244 1987 Unknown [id number] 2.16.840.1.166263.3.579.2. 1244 1987 Unknown [id number] 2.16.840.1.029139.3.579.2. 1244 1987 Unknown [id number] 2.16.840.1.710588.3.579.2. 1244 1959 [facility] [id number] [id number] 2.16840.1.526204.19 1959 Unknown [id number] 2.16840.1.014226.19 Unknown [id number] Unknown [id number] 2.16840.1.434328.3.579.2. 531 Unknown [id number] 2.16840.1.298388.3.579.2. 531 Social History Date Type Detail Facility Assertion Tobacco smoking consumption unknown (finding) [facility] Work Phone: Start: 05-10-2022 End: 11-08-2023 Electronic cigarette use Electronic cigarette use [facility] Tobacco smoking consumption unknown [facility] Start: 05-10-2022 End: 11-08-2023 Sex Assigned At [facility] Start: 01-27-2019 End: 05-10-2022 Tobacco smoking status NHIS Ex-smoker [facility] Start: 04-02-2022 End: 09-25-2023 Alcohol intake Current drinker of alcohol (finding) [facility] Start: 1985 Sex Assigned At Female [facility] Start: 03-24-2022 End: 11-03-2023 Exposure to SARS-CoV-2 (event) Not sure [facility] End: 06-16-2023 History of tobacco use Current smoker [facility] Start: 01-27-2019 End: 05-10-2022 Tobacco use and exposure Smokeless tobacco non-user [facility] Start: 1985 Sex Assigned At Not on file [facility] National Score (1-10 0), lower number is lower risk 56 [facility] Start: 04-01-2022 Gender identity Identifies as female gender (finding) [facility] Start: 04-01-2022 Sexual orientation Heterosexual (finding) [facility] End: 06-16-2023 History of tobacco use Cigarette Smoker [facility] Work Phone: Start: 08-19-2023 End: 10-11-2023 Alcohol intake Lifetime non-drinker (finding) [facility] Work Phone: How often to you hav e a drink containing alcohol? Never [facility] How hard is it for y ou to pay for the very basics like food, housing, medical care, and heating Not very hard [facility] Do you feel stress - tense, restless, nervous, or anxious, or unable to sleep at night because your mind is troubled all the time - these days [OSQ] Not at all [facility] (I/We) worried wheaddis er (my/our) food would run out before (I/we) got money to buy more. Never true [facility] Work Phone: In the past 12 month s, was there a time when you were not able to pay the mortgage or rent on time? No [facility] Work Phone: Medical Equipment Procedure Code [...] BILIARY 10FR X 5CM FDA Start: 07-15-2018 [id number], [id number], [id number] Start: 10-26-2019 End: 01-17-2024 Stent Advanix 10 fr Duodenal Bend Plastic 7cm Biliary 1 Temporary Accepts - [id number] Start: 06-06-2022 Stent Advanix Naviflex 10fr Plastic 202.5cm Biliary Delivery System Rapid - [id number] Start: 06-06-2022 Goals Date Patient Goal Desired Activity /State Functional Status Date Assessment Result Facility 07-20-2023 Functional status Patient at Baseline [facility] Work Phone: Functional observable [facility] NEGATED: Highlighted row Functional performance Functional status health issues are not documented Disease [facility] Work Phone: Mental Status Date Assessment Result Facility 07-20-2023 Cognitive function Cognitive Sta tus Patient at Baseline [facility] Work Phone: 01-21-2022 Cognitive functi ons :16 [facility] 10-29-2021 Cognitive functi ons :01 [facility] NEGATED: Highlighted row Cognitive function [Interpretation] Cognitive [...] to the pharmacy. Please call patient at: [phone] Pharmacy verified:Yes , [id number] - [place] [address] - [address] [phone] [id number] Torito Dominguez Patient User Experience Developer documented in this encounter [facility] 12-06-2023 Note HNO ID: [id number] Author: RAMOS PAREKH MD Service: ? Author [...] this visit. The patient or their legal nutrition representative has been informed of the risks [...] a patient from my former practice at [facility]. Subjective Julieth was seen virtually today. [...] of medications. REVIEW OF SYSTEMS: Modified ESAS ([place] Symptom Assessment Scale) Information Provided By: Patient Pain: Severe today, has been mild or moderate most days prior Nausea: Mild Loss of Appetite: Mild Constipation: None Shortness of Breath: None Drowsiness: None Tiredness: None Depression: None Anxiety: None How you feel overall: Fair Objective PHYSICAL EXAMINATION: [facility] 01/11/2019 General appearance: alert, in no acute [...] results found for: UQCANN , UQBNZL , KPZ7OEX , UQAMPH , UQMAMP , UQBUPRE , [...] to help w (more content not included)... [facility] 12-06-2023 History of Present illness Narrative PALLIATIVE MEDICINE AT HOME PROGRESS NOTE SERVICE DATE: December 06, 2023 IDENTIFICATION AND INTRODUCTION: Julieth Spencer is a 38 year old female This visit took place Virtually; I have communicated my name and active licensure. The patient's identity and physical location were verified at the time of this visit. The patient or their legal nutrition representative has been informed of the risks [...] a patient from my former practice at [facility]. Subjective Julieth was seen virtually today. [...] of medications. REVIEW OF SYSTEMS: Modified ESAS ([place] Symptom Assessment Scale) Information Provided By: Patient Pain: Severe today, has been mild or moderate most days prior Nausea: Mild Loss of Appetite: Mild Constipation: None Shortness of Breath: None Drowsiness: None Tiredness: None Depression: None Anxiety: None How you feel overall: Fair Objective PHYSICAL EXAMINATION: [facility] 01/11/2019 General appearance: alert, in no acute [...] results found for: UQCANN , UQBNZL , RQK1SMN , UQAMPH , UQMAMP , UQBUPRE , [...] a patient from my former practice at [facility]. Chronic Pancreatitis Chronic Abdominal Pain Nausea and Vomiting Protein-Calorie Malnutrition - Patient with ongoing pain management issues - Opiate regimen was started while she was admitted at [facility] in June 2022 with acute pancreatitis - [...] Medicine Nurse to do telephonic follow-up: No Hide Grader Services: None at this time Referral to Ensemble Member: No, not at this time Ramos Parekh MD December 06, 2023 2:03 PM documented in this encounter [facility] 11-29-2023 Miscellaneous Notes Next visit 12/06/23 Patient [...] Requesting delivery method: call/escript to: Madelin [place] Additional Concern: N/A Requesting response back: N/A, no action needed [phone] (cell) Kandis Hernandez November 29, 2023 documented in this encounter [facility] 11-21-2023 History of Present illness Narrative Clinical [...] clinical pharmacy team. documented in this encounter [facility] Work Phone: 11-14-2023 Miscellaneous Notes Call to insurance, glitch with last PA was resubmitted plan to follow up tomorrow regarding status of PA Gem Santiago RNCC Palliative Medicine Julieth is calling stating that her insurance company needs a call back regarding her Fentanyl patch refill request.They need a verbal confirmation. If you have any questions please call Julieth back at [phone] documented in this encounter [facility] 11-13-2023 Miscellaneous Notes Collaborated with Dr. Parekh, [...] (virtual). Asked to be called back at [phone]. Shayy Nino documented in this encounter [facility] 11-13-2023 Miscellaneous Notes Message responded/ addressed via phone encounter documented in this encounter [facility] 11-13-2023 Miscellaneous Notes Julieth called back in. [...] needs 4 week in person appt at [facility] is possible. Virtual if not. 4 weeks (around 12/06/2023) Called and LVM for patient to call and schedule. documented in this encounter [facility] 11-08-2023 Note HNO ID: [id number] Author: RAMOS PAREKH MD Service: ? Author [...] this visit. The patient or their legal nutrition representative has been informed of the risks [...] a patient from my former practice at [facility]. Subjective Patient underwent pancreatectomy last month. [...] if needed. REVIEW OF SYSTEMS: Modified ESAS ([place] Symptom Assessment Scale) Information Provided By: Patient Pain: Moderate Nausea: Moderate Loss of Appetite: Mild Constipation: None Shortness of Breath: None Drowsiness: None Tiredness: None Depression: None Anxiety: None How you feel overall: Fair Objective PHYSICAL EXAMINATION: [facility] 01/11/2019 General appearance: alert, in no acute [...] results found for: UQCANN , UQBNZL , JDA9FLF , UQAMPH , UQMAMP , UQBUPRE , UQNORB (more content not included)... [facility] 11-08-2023 History of Present illness Narrative PALLIATIVE MEDICINE AT HOME PROGRESS NOTE SERVICE DATE: November 08, 2023 IDENTIFICATION AND INTRODUCTION: Julieth Spencer is a 37 year old female This visit took place Virtually; I have communicated my name and active licensure. The patient's identity and physical location were verified at the time of this visit. The patient or their legal nutrition representative has been informed of the risks [...] a patient from my former practice at [facility]. Subjective Patient underwent pancreatectomy last month. [...] if needed. REVIEW OF SYSTEMS: Modified ESAS ([place] Symptom Assessment Scale) Information Provided By: Patient Pain: Moderate Nausea: Moderate Loss of Appetite: Mild Constipation: None Shortness of Breath: None Drowsiness: None Tiredness: None Depression: None Anxiety: None How you feel overall: Fair Objective PHYSICAL EXAMINATION: [facility] 01/11/2019 General appearance: alert, in no acute [...] results found for: UQCANN , UQBNZL , HQW6MSY , UQAMPH , UQMAMP , UQBUPRE , [...] a patient from my former practice at [facility]. Chronic Pancreatitis Chronic Abdominal Pain Nausea and Vomiting Protein-Calorie Malnutrition - Patient with ongoing pain management issues - Current regimen was started while she was admitted at [facility] in June 2022 - She remains open [...] Medicine Nurse to do telephonic follow-up: No Hide Grader Services: None at this time Referral to Ensemble Member: No, not at this time Ramos Parekh MD November 08, 2023 3:05 PM I spent a total of 40 minutes on the date of the service which included preparing to see the patient, jrlo-wp-fipn patient care, completing clinical documentation, counseling and educating the patient/family/caregiver, and care coordination (not separately reported). documented in this encounter [facility] 11-07-2023 Miscellaneous Notes Notified patient PA was started. Medication was denied and appeal was started. Patient has visit tomorrow to see Dr. Parekh. She said she is out of medication but is tolerating pain with oxycodone for now. Julieth is calling stating that she needs a prior authorization for her dilation. She uses [facility] . If you have any questions please call her back at [phone] documented in this encounter [facility] 11-06-2023 Miscellaneous Notes Prior Authorization Documentation Prior authorization requested for: MEDICATION dilaudid ER Submitted via Cover [employer] Julieth Spencer (Blount: [id number]) - [id number] Authorization approval #: medication denied. Nurse call to [facility] and submitted an appeal. Ref# appeal [id number] Should get response by Saturday. PA approved Time Spent 45 Raffi Santiago RN November 06, 2023 documented in this encounter [facility] 11-06-2023 Hospital course Narrative Discharge Diagnosis DKA (diabetic ketoacidosis) ([facility]) Test Results Pending At Discharge Pending Labs Order Current Status Cholesterol, Body Fluid Collected (11/02/231643) Review Testing- Fluid Source Collected (11/02/231643) Hospital [...] insulin gtt, and titrated to subcutaneous insulin. Speech Lang Path Therapist and perioperative educator consulted for education. Surgical drain removed. [...] 12,000-38,000 -60,000 unit capsule; Generic drug: pancrelipase (Xpw-Txhe-Ubnz); Take 2 cap(s) 3x day with meals; [...] 2023. OneTouch Delica Plus Lancet 30 gauge misc; Generic drug: lancets; Use to test blood sugar 3 times a day before meals. OneTouch Verio Flex meter [facility]; Generic drug: blood-glucose meter; Use to check [...] Desyrel TRUEplus Pen Needle 32 gauge x needle; Generic drug: pen needle, diabetic; Use [...] Department Center 11/12/2023 10:00 AM PHARMACY [facility] [id number] [facility] 11/14/2023 10:30 AM Tray Burk MD [id number] [facility] 01/29/2024 9:40 AM Jossie Edmondson MD [id number] Academic GENESIS Milian documented in this encounter [facility] Work Phone: 11-06-2023 Hospital Discharge instructions [...] than 400 mg/dL documented in this encounter [facility] Work Phone: 11-06-2023 Nurse Note Diabetes [...] Confirmation: Blood return;Non-pulsatile blood flow Lot #: [id number] Coffee Grinder: Bard Expiration Date: 08/15/24 Securement Method: Stat [...] 10/31/2023 11:02 PM documented in this encounter [facility] Work Phone: 11-06-2023 Miscellaneous Notes The [...] MD General Surgery PGY4 Surgical Oncology - [facility] [id number] Overnight Coverage Update 0500 - anion gap resolved - BG down from 1100 to 620 - acidosis resolved - hyponatremia resolving - IVF ongoing, bolused 2L - endocrinology aware Wilian Mcgregor MD General Surgery PGY4 documented in this encounter [facility] Work Phone: 11-05-2023 Consult note Formatting of th is note is different from the original. Inpatient Diabetes Education Consult Reason for Visit: Julieth Spencer is a 37 y.o. female who presents for DKA Consulting Service/Provider: Dr. Haily yN Visit Type: Initial visit Visit Modality: In-person Discharge Equipment/Supply Needs: Patient has supplies at home: Blood glucose meter: , Testing strips: , CGM supplies: , and now set up with [facility] with her phone zoë Patient History and Assessment: New diagnosis: T3C Previous diagnosis: Type 1 Patient known to Diabetes Education department: Yes Treatment prior to hospital admission: Insulin: Rapid acting, Long acting, via pen, via pump Complications: DKA ELEVATOR EXAMINER AND ADJUSTER Medications: Current Outpatient Medications Medication Instructions acetaminophen [...] Discard after 14 days. lancets 30 gauge [facility] Use to test blood sugar 3 times [...] mg, oral, Every 6 hours PRN pancrelipase, Efy-Qbtx-Jfbr, (Creon) 12,000-38,000 -60,000 unit capsule Take 2 cap(s) 3x day with meals; take 1 cap(s) 3x day with snacks as needed pancrelipase, Bce-Rjrb-Egxs, (Creon) 36,000-114,000- 180,000 unit capsule,delayed release(DR/EC) capsule 2 capsules, oral, 2 times daily with meals pancrelipase, Scc-Njmf-Thtj, (Creon) 36,000-114,000- 180,000 unit capsule,delayed release(DR/EC) capsule 2 capsules, oral, 3 times daily after meals and nightly pancrelipase, Uxl-Uevx-Rfwk, (Creon) 36,000-114,000- 180,000 unit capsule,delayed release(DR/EC) capsule [...] 13-18 <7.5 7-12 <8.0 0- 6 7.5-8.5 Citizen Of [place] Diabetes Association. Diabetes Care 33(S1), Sep 2009. 11/05/2019 7.3 % Final Comment: Diagnosis of Diabetes-Adults Non-Diabetic: < or = 5.6% Increased risk for developing diabetes: 5.7-6.4% Diagnostic of diabetes: > or = 6.5% . Monitoring of Diabetes Age (y) Therapeutic Goal (%) Adults: >18 <7.0 Pediatrics: 13-18 <7.5 7-12 <8.0 0- 6 7.5-8.5 Citizen Of [place] Diabetes Association. Diabetes Care 33(S1), Sep 2009. [...] She has follow [place] [facility] [place] but in the mean time [...] based and pump based. Discussed involving the nurses educator. Recommend consulting the nurses educator Follow Up: Time Spent (min): 90 [...] dilaudid and oxycodone from prescribing physician at [facility]. Currently pt. reports being adequately comfortable [...] are normal. Recent/remote memory as evidenced through rndt-kb-hdcr interaction and discussion appear grossly intact. Skin: [...] dilaudid and oxycodone from prescribing physician at [facility]. Currently pt. reports being adequately comfortable on current pain medication regimen. Recommendations: Continue current pain medication regimen. Pt. Able to tolerate PO. If pt. NPO, may incorporate IV MED SPECIALIST/IV prn pain medication. Continue gabapentin, acetaminophen, oxycodone Continue home medications on discharge. Advised pt. To follow up with opiate prescribing physician. Ramandeep Malcolm APRN-DIRECTOR BLOOD BANK Associated Order(s): IP CONSULT TO NUTRITION SERVICES Nutrition Initial Assessment: Nutrition Assessment Reason for Assessment: Provider consult order Patient is a 37 y.o. female presenting with T1DM, Crohn's disease (on Humira), and chronic pancreatitis s/ total pancreatectomy, splenectomy, RNYGJ, and J-tube placement on 10/[address] Burk - course c/b chyle leak. Pt presented [facility] to [facility] on 10/31 with nausea and ongoing abdominal [...] mg, oral, Nightly [Held by provider] pancrelipase (Uff-Djaf-Agou), 2 capsule, oral, TID with meals pantoprazole, [...] goal Start @ 10ml/hr and increase by [id number] until goal is met FWF per MD [...] change Criteria: maintain stable weight; promote weight presybeterian [employer] Data, Medical Tests and Procedures Monitoring [...] had positive antibodies. Patient followed with an high school computer science teacher in [facility] -Previously being on Tandem Pump + [...] above 200). -Patient was discharged with pharmacy [facility] follow-up as well is follow-up with Dr. [...] this interval not displayed. Assessment/Plan Principal Problem: Llu Spencer is a 37 year-old lady with history of T1DM (now T3C), Crohn's disease, and chronic pancreatitis s/ total pancreatectomy, splenectomy, RNYGJ, and J-tube placement on 1/26. This was c/b chyle leak. She was [...] had positive antibodies. Patient followed with an high school computer science teacher in [facility] -Previously being on Tandem Pump + [...] above 200). -Patient was discharged with [facility] follow-up as well is follow-up with Dr. [...] Sandro Drake MD Endocrinology, PGY 4 Pager [phone] or secure chat Case seen, examined, and [...] in the note. documented in this encounter [facility] Work Phone: 11-05-2023 History of Present [...] displayed. Assessment/Plan Principal Problem: DKA (diabetic ketoacidosis) ([facility]) Active Problems: Chronic abdominal pain DM type 1 (diabetes mellitus, type 1) (CMS/HCC) H/O chronic pancreatitis History of pancreatectomy Dehydration Pancreatic insufficiency Chronic pancreatitis due to acute alcohol intoxication ([facility]) Julieth Spencer is a 37 year-old lady [...] had positive antibodies. Patient followed with an high school computer science teacher in [facility] -Previously being on Tandem Pump + [...] above 200). -Patient was discharged with [facility] follow-up as well is follow-up with Dr. Edmondson scheduled for January 2024. 11/04 - TF stopped and carb consistent with supplements started Type IIIc diabetes p/w DKA iso uncontrolled pain and missed insulin: Discharge Recommendations - Tresiba 8 units Q24H. - Lispro Sliding scale 1 unit for every 50 above 150 TIDAC - Prandial lispro 3 units TIDAC - [facility] pharmacy consult placed. - Appointment with Dr. [...] Armando Mansfield MD General Surgery, pgy3 [place] [id number] Julieth Spencer is a 37 y.o. female [...] Chronic pancreatitis due to acute alcohol intoxication ([facility]) 37 yo F with T1DM, Crohn's disease [...] Omar Mansfield MD General Surgery, pgy3 [place] [id number] Associated attestation - Weston Nelson MD - [...] Dr Burk-remove drain and stop abx 11/02/23 1234 Discharge Planning Living Arrangements Spouse/significant other Support [...] place to sleep or slept in a residential (including now)? N Transportation Needs In the past 12 months, has lack of transportation kept you from medical appointments or from getting medications? no In the past 12 months, has lack of transportation kept you from meetings, work, or from getting things needed for daily living? (May need transport assistance in future if she has driving restrictions) Transitional 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 Note: Met with patient to discuss discharge planning s/p admission. Patient lives home with boyfriend. Independent in ADL's. Requires assist devices for ambulation( walker). Patient states she is active home care [facility] as she was she discharged 2 days ago and presented back after not feeling well. Demographics and contact information confirmed. Will continue to monitor patient for all home going needs. Bell Bonds RN TCC via [place]- none Equipment- walker, TF( recent PEG) [...] presenting with DKA (diabetic ketoacidosis) (CMS/HCC). Subjective Did well overnight, got dilaudid pain [...] kg Assessment/Plan Principal Problem: DKA (diabetic ketoacidosis) ([facility]) Active Problems: Chronic abdominal pain DM type 1 (diabetes mellitus, type 1) ([facility]) H/O chronic pancreatitis History of pancreatectomy Dehydration Pancreatic insufficiency Chronic pancreatitis due to acute alcohol intoxication ([facility]) 37 yo F with T1DM, Crohn's disease [...] + Lovenox D/w Dr Omar Ellis MD [facility] Surgical Oncology Julieth Spencer is a [...] displayed. Assessment/Plan Principal Problem: DKA (diabetic ketoacidosis) ([facility]) Active Problems: Chronic abdominal pain DM type 1 (diabetes mellitus, type 1) ([facility]) H/O chronic pancreatitis History of pancreatectomy Dehydration Pancreatic insufficiency Chronic pancreatitis due to acute alcohol intoxication ([facility]) Julieth Spencer is a 37 year-old lady [...] had positive antibodies. Patient followed with an high school computer science teacher in [facility] -Previously being on [employer] Pump + [...] above 200). -Patient was discharged with pharmacy [place] follow-up as well is follow-up with Dr. [...] Sandro Drake MD Endocrinology, PGY 4 Pager [phone] or secure chat Case discussed with Dr. [...] needs, clinical response, and signs/symptoms of toxicity. Vicky Rios, PharmD SICU ATTENDING NOTE I have seen the [...] off opioid medications from palliative physician at [facility]. Chronic pain consulted, continue PRN oxycodone [...] Anesthesiology & Perioperative Medicine CTICU/SICU Critical Care Certified Nuclear Medicine Technologist This critically ill patient continues to be [...] Continued fluid resuscitation - Endocrine consult PAYOR: [facility] Medicaid DISPO: home vs [facility] SUPPORT/CONTACT: Mami (s/o) [phone] Met with patient to complete assessment. Confirmed [...] Endocrine consult D/w Dr. Bhargavi Burgess MD [facility] Surgical Oncology Physical Therapy Physical Therapy Screen Patient Name: Julieth Spencer Today's Date: 11/01/2023 0857 Subjective Assessment/Plan General Visit Information: General General Comment: Pt observed this AM moving independently around bedside. During pt's recent hospital admission, she progressed to IND mobility with PT with [facility]. No invasive medical interventions performed since that time. No acute skilled PT needs currently. Will DC PT orders. Pt should continue to mobilize with workforce staffing advisor. Please re-consult should acute PT needs present. [...] treatment. NEURO: No PMH. Pt arrived to SICU. 11/01: A&Ox3; sig. Abd pain. Got 0.4 [...] When BG reaches 250, change to 5% /2 NS - Consulting endocrine - Replace K [...] admitted for Dehydration. Pharmacy reviewed the patient's bstht-df-kjjkxsqxe medications and allergies for accuracy. The list below reflects the updated ELEVATOR EXAMINER AND ADJUSTER list. Comments regarding how patient may be [...] 10) for up to 7 days. pancrelipase, Kzo-Ngzm-Iorb, (Creon) 12,000-38,000 -60,000 unit capsule Self No Sig: Take 2 cap(s) 3x day with meals; take 1 cap(s) 3x day with snacks as needed pancrelipase, Yoc-Owpk-Crss, (Creon) 36,000-114,000- 180,000 unit capsule,delayed release(DR/EC) capsule Self No Sig: Take 2 capsules by mouth 2 times a day with meals. pancrelipase, Rzc-Xclk-Vclq, (Creon) 36,000-114,000- 180,000 unit capsule,delayed release(DR/EC) capsule Self No Sig: Take 2 capsules by mouth 2 times a day. pancrelipase, Osv-Qizx-Yzcj, (Creon) 36,000-114,000- 180,000 unit capsule,delayed release(DR/EC) capsule Self No Sig: Take 1 capsule by mouth if needed for snacks. pantoprazole (ProtoNix) 40 mg EC tablet Self Yes Sig: Take 1 tablet (40 mg) by mouth once daily in the morning. Take before meals. pen needle, diabetic 32 gauge x /32 needle Self No Sig: Use to inject [...] at discharge. Pharmacy has been updated to [facility]. Sources used to complete the [...] Below are additional concerns with the patient's ELEVATOR EXAMINER AND ADJUSTER list. Interview was limited due to the [...] Olivia Smith PharmD Transitions of Care Pharmacist [facility] Please reach out via Secure Chat for questions, or if no response call [employer] or [employer] documented in this encounter [facility] Work Phone: 11-01-2023 History and physical [...] surgery with Bhargavi Acosta on10/04/2023 Crohn's disease ([facility]/HCC) Depression Diabetes mellitus ([facility]) Type 1 GERD (gastroesophageal reflux disease) Menorrhagia [...] started on insulin drip and NS at [facility]. NEURO: No PMH. Pt arrived to SICU [...] Borden MD PGY-4 Anesthesiology Critical care medicine [facility] SURGICAL ONCOLOGY AND HEPATOBILIARY SURGERY ADMISSION [...] Medical History: Diagnosis Date Anxiety Chronic pancreatitis ([facility]/HCC) scheduled for surgery with Bhargavi Acosta on10/04/2023 Crohn's disease ([facility]/HCC) Depression Diabetes mellitus ([facility]) Type 1 GERD (gastroesophageal reflux disease) Menorrhagia [...] days. 15 mL 11 lancets 30 gauge [facility] Use to test blood sugar 3 times [...] to 7 days. 15 tablet 0 pancrelipase, Soe-Wemx-Cfaz, (Creon) 12,000-38,000 -60,000 unit capsule Take 2 cap(s) 3x day with meals; take 1 cap(s) 3x day with snacks as needed 270 capsule 11 pancrelipase, Rik-Dpko-Iclq, (Creon) 36,000-114,000- 180,000 unit capsule,delayed release(DR/EC) capsule Take 2 capsules by mouth 2 times a day with meals. pancrelipase, Jnb-Kogu-Hfmv, (Creon) 36,000-114,000- 180,000 unit capsule,delayed release(DR/EC) capsule Take 2 capsules by mouth 2 times a day. pancrelipase, Nle-Xbxm-Gpfe, (Creon) 36,000-114,000- 180,000 unit capsule,delayed release(DR/EC) capsule [...] MD General Surgery PGY4 Surgical Oncology - [facility] [id number] Overnight Coverage documented in this encounter [facility] Work Phone: 10-28-2023 Miscellaneous Notes Rescheduled for this Virtual If she's getting discharged from the hospital soon, could we please get her a follow up appointment with me DALTON? Next visit 11/08/23 Patient phones requesting refills [...] stated she is currently at Please call [phone] Teresa Carias documented in this encounter [facility] 10-02-2023 Evaluation note Encounter Date Diagnosis Assessment [...] ability to maintain adequate nutritional/f luid intake [employer] Other 01-11-2024 NoteInterpreted By: Ricardo Gurrola, STUDY: CT PANCREAS PRE OP EVALUATION WITH CONTRAST; 09/25/2023 3:55 pm INDICATION: Signs/Symptoms:pancreatic protocol for evaluation of pancreatitis for surgery treatment; COMPARISON: 03/08/2022 ACCESSION NUMBER(S): [id number] ORDERING CLINICIAN: TRAY BURK TECHNIQUE: Contiguous axial [...] The abdominal wall soft tissues appear normal. [id number] NoteInterpreted By: Ricardo Gurrola, STUDY: CT PANCREAS PRE OP EVALUATION WITH CONTRAST; 09/25/2023 3:55 pm INDICATION: Signs/Symptoms:pancreatic protocol for evaluation of pancreatitis for surgery treatment; COMPARISON: 03/08/2022 ACCESSION NUMBER(S): [id number] ORDERING CLINICIAN: TRAY BURK TECHNIQUE: Contiguous axial [...] Ricardo Gurrola 09/26/2023 8:19 AM Dictation workstation: [id number] Comment on above:Order Comment: Pancreatic [id number] NoteHNO ID: [id number] Author: RAFFI SANTIAGO RN Service: ? Author [...] having contact numbers for the office and on-call.[facility]01-10-2024 NoteHNO ID: [id number] Author: RAMOS PAREKH MD Service: ? Author [...] a patient from my former practice at [facility]. Subjective Patient is now scheduled for [...] wean, to which I agreed. Modified ESAS ([place] Symptom Assessment Scale) Information Provided By: Patient [...] results found for: UQCANN , UQBNZL , EFK1QVB , UQAMPH , UQMAMP , UQBUPRE , UQNORBUP (more content not included)...[facility] 09-25-2023 NoteHNO ID: [id number] Author: RAFFI SANTIAGO RN Service: ? Author [...] having contact numbers for the office and on-call.[facility]12-15-2023 NoteHNO ID: [id number] Author: Ramos Parekh MD Service: ? Author [...] this visit. The patient or their legal nutrition representative has been informed of the risks [...] a patient from my former practice at [facility]. Subjective Patient seen virtually today. She shared that her pain remains well-controlled and that she has no side effects from her medications. She is looking forward to being able to have some quality time with family over the coming holidays. She is hopeful that her upcoming surgery may help improve her overall quality of life. Dr. Tray Dhillon, works out of [facility], will be doing her pancreatectomy Oct 04, 2023. REVIEW OF SYSTEMS: Modified ESAS ([place] Symptom Assessment Scale) Information Provided By: Patient Pain: Mild, controlled on current regimen Nausea: Mild Loss of Appetite: Mild Constipation: None Shortness of Breath: None Drowsiness: None Tiredness: None Depression: None Anxiety: None How you feel overall: Fair Objective PHYSICAL EXAMINATION: [facility] 01/11/2019 General appearance: alert, in no acute [...] results found for: UQCANN , UQBNZL , LBI1XDT , UQAMPH , UQMAMP , UQBUPRE , [...] a patient from my former practice at [facility]. Chronic Pancreatitis Chronic Abdominal Pain Nausea and Vomiting P (more content not included)...[facility]12-05-2023 Miscellaneous Notes* Telephone Encounter - Ramos Parekh MD - 08/20/2023 10:28 AM EST Re-sent script to patient's preferred pharmacy. * Telephone Encounter - Neva Bryant - 08/20/2023 9:24 AM EST Julieth is calling stating that her hydromorphone was called into the wrong pharmacy. It needs to be called into [facility]. If you have an questions please call Julieth back at [phone].. Thank you [facility] History of Present illness Narrative* Tray Burk [...] by mouth every 6 hours ifneeded. pancrelipase, Rrj-Jrsf-Rslo, (Creon) 12,000-38,000 -60,000 unit capsule Please take 1 capsule by mouth with each meal three times a day pancrelipase, Unx-Mqqp-Tldv, (Creon) 36,000-114,000- 180,000 unit capsule,delayed release(DR/EC) capsule [...] typos. Tray Burk MD documented in this [facility] Work Phone: 1(612) 939-657611-17-2023 NoteHNO ID: [id number] Author: Ramos Parekh MD Service: ? Author [...] this visit. The patient or their legal nutrition representative has been informed of the risks [...] a patient from my former practice at [facility]. Subjective Hospitalization in June for acute [...] that point. REVIEW OF SYSTEMS: Modified ESAS ([place] Symptom Assessment Scale) Information Provided By: Patient Pain: Mild (controlled on current regimen) Nausea: Moderate Loss of Appetite: Mild Constipation: None Shortness of Breath: None Drowsiness: None Tiredness: None Depression: None Anxiety: None How you feel overall: Fair Objective PHYSICAL EXAMINATION: [facility] 01/11/2019 General appearance: alert, in no acute [...] results found for: UQCANN , UQBNZL , XQN0JYF , UQAMPH , UQMAMP , UQBUPRE , UQNORBUP , UQMTHD , UQEDDP , UQTRAM , UQDTRM , UQFNTL , UQNFTL , UQCODE , UQMORP , UQDCDN , UQHCOD , UQOXYC , UQHMOR , UQOXYM , UQCREA , UQPH , UQSPGR , UQOXID , UQSPQ Assessment AND Plan (more content not included)...[facility]11-17-2023 Miscellaneous Notes* Telephone Encounter - Erin Oleary [...] RN * Telephone Encounter - Mary Patient User Experience DeveloperTorito - 08/01/2023 2:14 PM EST Patient needs refill of oxycodone & hydroporphone Patient has been identified by name and date of : Yes Admin number provided for next call: No RX INSTRUCTIONS: Patient requesting a call when RX is approved and sent to the pharmacy. Please call patient at: [phone] Patient scheduled virtual follow up for 08/02 with to discuss updates in health, pancreasremoval discussion Pharmacy verified:Yes , madelin mukherjee on [facility] Torito Mary Patient User Experience Developer Electronically signed by [facility] Patient User Experience DeveloperTorito at 08/01/2023 2:19 PM EST [facility] Evaluation note* Encounter Date Diagnosis Assessment Notes [...] Dr. 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 She recently was hospitalized at [facility] for an episode of chronic pancreatitis. She [...] by mouth every 6 hours ifneeded. pancrelipase, Pcl-Rcsw-Fvnf, (Creon) 12,000-38,000 -60,000 unit capsule Please take 1 capsule by mouth with each meal three times a day pancrelipase, Ign-Dfgy-Tctk, (Creon) 36,000-114,000- 180,000 unit capsule,delayed release(DR/EC) capsule [...] typos. Tray Burk MD documented in this [facility] Work Phone: 1(143) 199-613411-04-2023 Discharge summary Author Allen Borges [facility] July 20, 2023 2:42pm Note Date/Time July 20, 2023 2 :42pm [facility] [address] [place] [address] Discharge Summary Signed Patient: Julieth Spencer MR#: [id number] : 1985 Acct:[id number] Age/Sex: 37 / F Adm Date: 3 Loc: N Room: [address] [place] [address]: Allen Borges DO Copies to: [...] disease,depression who presented to the emergency room [facility] with complaints of nausea, vomiting, abdominal pain. [...] [facility] of the [...] needed. Your appointment will be at the [place] office located at: [address] [place] [address], 2nd floor [place] [phone]) Documented By: Allen Borges DO 07/20/23 144 0 Signed By: <Electronically signed by Allen Borges DO> 07/20/23 1442 [facility] Work Phone: 1(190) 338-813911-03-2023 History and physical note Author Karl Gant [facility] July 19, 2023 8:04pm Note Date/Time July 16, 2023 2 :04am [facility] [address] [place], [place] [id number] Hospitalist H&P Signed Patient: Julieth Spencer MR#: [id number] : 1985 Acct:[id number] Age/Sex: 37 / F Adm Date: 3 Loc: 4N Room: [address] [place] [address] Type: ADM IN Attending Dr: Allen Borges DO Copies to: MD Nat Ron,DO Allen Borges, DO Gini Harper, COMMUNICATIONS DIRECTOR~ HPI DATE OF EXAMINATION: 07/16/23 CHIEF COMPLAINT: [...] will be admitted as inpatient to the [facility] floor under the care of the hospitalist team for further evaluation and treatment. Review of Systems Review of Systems Review of systems: A 10 point review of systems was obtained, negative unless noted in the HPI or below. [facility] Medical History (Updated 07/15/23 @ 23:13 [...] unit subcut QAM 04/28/20 [History Confirmed 07/16/23] uwnbfp-suyqxkji-tduwytr 36,000-114,000-180,000 unit capsule,delay rel (Creon) 1 cap [...] % (Auto) 34.4 % (.) 07/15/23 22:45 [place] % (Auto) 5.3 % (.) 07/15/23 22:45 Eos % (Auto) 1.0 % (.) 07/15/23 22:45 Baso % (Auto) 0.7 % (.) 07/15/23 22:45 Nucleat RBC Rel Count 0.1 /100 WBC (0-0.5) 07/15/23 22:45 Neut # (Auto) 4.6 x10E3/uL (1.8-7.7) 07/15/23 22:45 Lymph # (Auto) 2.7 x10E3/uL (1.00-4.8) 07/15/23 22:45 [place] # (Auto) 0.4 x10E3/uL (0.0-0.8) 07/15/23 22:45 [...] pH 6.5 (5.0-9.0) 07/15/23 21: Ur Specific [place] 1.023 (1.001-1.030) 07/15/23 21:01 Urine Protein Trace mg/dL (Negative) H 07/15/23 21:01 Urine Glucose (UA) Normal mg/dL (Normal) 07/15/23 21: Urine Ketones Negative (Negative) 07/15/23 21: Urine Occult Blood Negative (Negative) 07/15/23 21: Urine Nitrite Negative (Negative) 07/15/23 21: Urine Bilirubin Negative (Negative) 07/15/23 21: Urine Urobilinogen Normal mg/dL (Normal) 07/15/23 21:01 Ur Leukocyte Esterase 1+ (Negative) H 07/15/23 21:01 Urine RBC 3-4 /HPF (0-4) 07/15/23 21:01 Urine WBC 5-9 /HPF (0-4) H 07/15/23 [...] <Electronically signed by Karl Gant MD> 07/19/232003 [facility] Work Phone: 1(114) 226-137811-03-2023 Progress note Author Allen Borges [facility] July 19, 2023 3:34pm Note Date/Time July 19, 2023 3 :34pm [facility] [address] [place] [address] Hospitalist Progress Note Signed Patient: Julieth Spencer MR#: [id number] : 1985 Acct:[id number] Age/Sex: 37 / F Adm Date: 3 Loc: 4N Room: [address] [place] [address] Type: ADM IN Attending Dr: Allen Borges [...] signed by Allen Borges DO> 07/19/23 1534 [facility] Work Phone: 1(102) 493-145711-02-2023 Progress note Author Allen Borges [facility] July 18, 2023 2:48pm Note Date/Time July 18, 2023 2 :48pm [facility] [address] [place] [address] Hospitalist Progress Note Signed Patient: Julieth Spencer MR#: [id number] : 1985 Acct:[id number] Age/Sex: 37 / F Adm Date: 3 Loc: 4N Room: [address] [place] [address] Type: ADM IN Attending Dr: Allen Borges [...] 300 Mg Capsule PO 07/16/24 13:59 TID [facility] Glucose 0 gm 07/16/23 02:57 Dextrose 40% [...] Insuln.Pen SUBCUT 07/15/24 07:59 Not Given TID.WM.HS [facility] Protocol Lorazepam 0.5 mg 07/17/23 11:00 07/18/23 08:18 Lorazepam 0.5 Mg Tablet PO 01/13/24 10:59 0.5 mg BID HERNANDEZ Administration Mirtazapine 7.5 mg 07/17/23 22:00 07/17/23 22:25 Mirtazapine 7.5 Mg Tablet PO 07/16/24 21:59 Not Given QHS [facility] Naloxone HCl 0.1 mg 07/16/23 02:57 Naloxone Hcl 0.4 Mg/Ml Vial IV-PUSH 07/15/24 02:56 Q2M PRN Opioid Reversal Non-Formulary Medication 1 cap 07/17/23 14:00 Broaok-Gcgbybpk-Teqoral [Creon] PO 07/16/24 13:59 TID [facility] Oxycodone HCl 10 mg 07/17/23 11:50 07/18/23 [...] Tablet PO 07/16/24 21:59 Not Given QHS [facility] A&P - Hospitalist Assessment/Plan (1) Acute on [...] yet asking specifically about having a Dilaudid MED SPECIALIST pump. As pt does not appear in acute pain/distress, I explained that I would not be ordering this and she was adamant stating that she always has a MED SPECIALIST pump when she has pancreatitis. She was [...] as pt adamant to have a dilaudid MED SPECIALIST pump, despite appearing calm and comfortable. I [...] <Electronically signed by Allen Borges DO> 07/18/23 7081 [facility] Work Phone: 1(602) 601-774111-01-2023 Consult note Author José Miguel Tobar [facility] July 17, 2023 5:27pm Note Date/Time July 17, 2023 5 :27pm [facility] [address] [place] [address] Pain Management Consult Note Signed Patient: Julieth Spencer MR#: [id number] : 1985 Acct:[id number] Age/Sex: 37 / F Adm Date: 3 Loc: 4N Room: [address] [place] [address] Type: ADM IN Attending Dr: Allen Borges [...] is scheduled to see Pain Management at [facility] in 2 weeks. Patient appears in no [...] Hematologic/Lymphatic: Denies easy bruising and Denies lymphadenopathy [facility] Medical History (Updated 07/15/23 @ 23:13 [...] unit subcut QAM 04/28/20 [History Confirmed 07/16/23] etrwxj-zafkqphw-ydajpdf 36,000-114,000-180,000 unit capsule,delay rel (Creon) 1 cap [...] <Electronically signed by José Miguel Tobar MD> 07/17/234 [facility] Work Phone: 1(736) 618-629611-01-2023 Progress note Author Allen Borges [facility] July 17, 2023 1:01pm Note Date/Time July 17, 2023 1 :01pm [facility] [address] [place] [address] Hospitalist Progress Note Signed Patient: Julieth Spencer MR#: [id number] : 1985 Acct:[id number] Age/Sex: 37 / F Adm Date: 3 Loc: 4N Room: [address] [place] [address] Type: ADM IN Attending Dr: Allen Borges DO Copies to: ~ Date of Service: 07/17/2023 Subjective Subjective Narrative: Pt seen and examined. Very comfortable and calm and asking to advance her diet, while at the same time trying to state she is in 10/10 pain and needs a DilaudidPCA. I discussed that I will not be ordering a MED SPECIALIST pump as she does not appear to [...] 60 Mg Capsule PO 07/16/24 11:29 DAILY [facility] Cariprazine 1.5 mg 07/17/23 11:30 Cariprazine *Nf* 1.5 Mg Capsule PO 07/16/24 11:29 DAILY [facility] Cephalexin HCl 250 mg 07/16/23 12:00 07/17/23 02:50 Cephalexin 250 Mg Capsule PO 250 mg Q12H HERNANDEZ Administration Dextrose 0 gm 07/16/23 02:57 Dextrose 50% In Water 25 Gm/50 Ml Syringe IV-PUSH 07/15/24 02:56 PRN PRN Hypoglycemia Enoxaparin Sodium 40 mg 07/16/23 10:00 07/17/23 12:45 Enoxaparin 40 Mg/0.4 Ml Syringe SUBCUT 07/15/24 09:59 Not Given DAILY@10 [facility] Gabapentin 600 mg 07/17/23 14:00 Gabapentin 300 Mg Capsule PO 07/16/24 13:59 TID [facility] Glucose 0 gm 07/16/23 02:57 Dextrose 40% Gel 15 Gm Tube PO 07/15/24 02:56 PRN PRN Hypoglycemia Hydromorphone HCl 1 mg 07/16/23 02:57 07/17/23 09:21 Hydromorphone 0.5 Mg/0.5 Ml Syringe IV-PUSH 1 mg Q4H PRN Administration Pain Scale 8 - 10 Lactated Ringer's 1,000 mls @ 250 mls/hr 07/17/23 12:00 Lactated Ringers IV 07/16/24 11:59 .Q4H [facility] Insulin Aspart 0 units 07/16/23 08:00 07/17/23 12:25 Insulin Aspart 300 Units/3 Ml Insuln.Pen SUBCUT 07/15/24 07:59 Not Given TID.WM.HS [facility] Protocol Lorazepam 0.5 mg 07/17/23 11:00 Lorazepam 0.5 Mg Tablet PO 01/13/24 10:59 BID HERNANDEZ Mirtazapine 7.5 mg 07/17/23 22:00 Mirtazapine 7.5 Mg Tablet PO 07/16/24 21:59 QHS [facility] Naloxone HCl 0.1 mg 07/16/23 02:57 Naloxone Hcl 0.4 Mg/Ml Vial IV-PUSH 07/15/24 02:56 Q2M PRN Opioid Reversal Non-Formulary Medication 1 cap 07/17/23 14:00 Nctfek-Bqbxzdkn-Ndhsuli [Creon] PO 07/16/24 13:59 TID HERNANDEZ Oxycodone [...] 100 Mg Tablet PO 07/16/24 21:59 QHS [facility] A&P - Hospitalist Assessment/Plan (1) Acute on [...] yet asking specifically about having a Dilaudid MED SPECIALIST pump. As pt does not appear in acute pain/distress, I explained that I would not be ordering this and she was adamant stating that she always has a MED SPECIALIST pump when she has pancreatitis. She was [...] as pt adamant to have a dilaudid MED SPECIALIST pump, despite appearing calm and comfortable. I will defer this to pain management. GI agrees with medical management and outpatient GI follow up and signed off. No further imaging or testing indicated this admission. Time Spent With Patient (min): 45 Documented By: Allen Borges DO 07/17/23 125 5 Signed By: <Electronically signed by Allen Borges DO> 07/17/23 1301 [facility] Work Phone: 1(349) 927-494110-31-2023 Progress note Author Allen Borges [facility] July 16, 2023 2:33pm Note Date/Time July 16, 2023 2 :34pm [facility] [address] [place] [address] Progress Note Signed Patient: Julieth Spencer MR#: [id number] : 1985 Acct:[id number] Age/Sex: 37 / F Adm Date: 3 Loc: 4N Room: [address] [place] [address] Type: ADM IN Attending Dr: Allen Borges [...] <Electronically signed by Allen Borges DO> 07/16/23 5043 [facility] Work Phone: 1(313) 178-538010-31-2023 Consult note Author Ant Holloway [facility] July 16, 2023 9:47am Note Date/Time July 16, 2023 9 :47am [facility] [address] [place], [place] [id number] Gastroenterology Consult Note Signed Patient: Julieth Spencer MR#: [id number] : 1985 Acct:[id number] Age/Sex: 37 / F Adm Date: 3 Loc: 4N Room: [address] [place] [address] Type: ADM IN Attending Dr: Allen Borges [...] transferred her care for second opinion to [facility] and has undergone multiple EUS and [...] Hematologic/Lymphatic: Denies easy bruising and Denies lymphadenopathy [facility] Medical History (Updated 07/15/23 @ 23:13 [...] unit subcut QAM 04/28/20 [History Confirmed 07/16/23] mnelig-fbujitah-muflryn 36,000-114,000-180,000 unit capsule,delay rel (Creon) 1 cap [...] % (Auto) 58.6 Lymph % (Auto) 34.4 [place] % (Auto) 5.3 Eos % (Auto) 1.0 Baso % (Auto) 0.7 Nucleat RBC Rel Count 0.1 Neut # (Auto) 4.6 Lymph # (Auto) 2.7 [place] # (Auto) 0.4 Eos # (Auto) 0.1 [...] Cloudy A Urine pH 6.5 Ur Specific Cushing 1.023 Urine Protein Trace H Urine Glucose [...] MPV Neut % (Auto) Lymph % (Auto) [place] % (Auto) Eos % (Auto) Baso % (Auto) Nucleat RBC Rel Count Neut # (Auto) Lymph # (Auto) [place] # (Auto) Eos # (Auto) Baso # [...] Color Urine Appearance Urine pH Ur Specific Cushing Urine Protein Urine Glucose (UA) Urine Ketones [...] By: <Electronically signed by Ant Holloway MD> 07/16/23 0926 [facility] Work Phone: 1(750) 997-689310-24-2023 Miscellaneous Notes* Telephone Encounter - Erin Oleary [...] was rescheduled with pain management on 07/25/23, p,[place] send enough medication to last patient until this appointment. Thank you, Erin Oleary RNCC, [facility] Pool Coordinator * Telephone Encounter - Erin Oleary RN [...] hours as needed. Please review and advise. rEin Oleary RN * Telephone Encounter - Mia Haile - 07/09/2023 9:51 AM EDT Julieth Spencer is calling Ramos Parekh MD today regarding Refill Request Patient has been identified by name and birthdate. Requesting delivery method: call/escript to: Ronny Huerta Additional Concern: N/A Requesting response back: N/A, no action needed [phone] (cell) Mia Haile July 09, 2023 documented in this encounterSelect [facility]-24-2023 Miscellaneous Notes* Telephone Encounter - Erin Oleary RN - 07/09/2023 10:05 AM EDT Duplicate note. Erin Oleary RN Pool Coordinator documented in this encounterSelect Medical [facility]ty [facility]09-07-2023 NotePatient Outreach (NETNAV) JULIETH SPENCER ([id number]) 1985 F Date Time Provider Department 05/23/23 NO PCP NETNAV During your visit today, we recorded the following information about you: Shayan Leos 05/23/2023 11:18 AM Signed POPULATION HEALTH NAVIGATION OUTREACH Action/FYI scheduled Patient Identified by Name and : YES, via phone Outreach Outcome/Action Spoke to patient / parent / legal guardian: Patient scheduled Did you use a PCP flex slot to schedule this appointment? N/A Reason for Outreach Care Gap or Scheduling/Wellness visits Payer: Payor: [facility] MEDICAID / Plan: [facility] COMMUNITY PLAN MEDICAID [facility] / Product Type: Medicaid / Care Gap [...] mouth every 6 hours as needed. - ehfiik-vfccsbpj-pmxtyuv (CREON) 36,000-114,000- 180,000 unit delayed release capsule [...] BAQSIMI 3 mg/actuation nasal spray Use 1 [place] in the nose as needed. - insulin [...] 06/14/2022 Encounter Status:Closed by SHAYAN LEOS on 05/23/23[facility]-07-2023 NoteHNO ID: [id number] Author: Shayan Leos Service: ? Author Type: [...] Care Gap or Scheduling/Wellness visits Payer: Payor: [facility] MEDICAID / Plan: [facility] PLAN MEDICAID OF [place] / Product Type: [...] Signature: Shayan Pimentel May 23, 2023 11:18 [facility]09-07-2023 History of Present illness Narrative* Shayan Leos - 05/23/2023 11:18 AM EDT POPULATION HEALTH NAVIGATION OUTREACH Action/FYI scheduled Patient Identified by Name and : YES, via phone Outreach Outcome/Action Spoke to patient / parent / legal guardian: Patient scheduled Did you use a PCP flex slot to schedule this appointment? N/A Reason for Outreach Care Gap or Scheduling/Wellness visits Payer: Payor: [facility] MEDICAID / Plan: [facility] PLAN MEDICAID OF [place] / Product Type: [...] 23, 2023 11:18 AM documented in this encounterSelect Medical Specialty [facility] [place]09-01-2023 NoteHNO ID: [id number] Author: Ramos Parekh MD Service: ? Author [...] this visit. The patient or their legal nutrition representative has been informed of the risks [...] past surgical history on file. CURRENT MEDICATIONS: nsgcde-mpqbufik-grhdgmx (CREON) 36,000-114,000- 180,000 unit delayed release capsule [...] BAQSIMI 3 mg/actuation nasal spray Use 1 [place] in the nose as needed. insulin glargine [...] Family History REVIEW OF SYSTEMS: Modified ESAS ([place] Symptom Assessment Scale): Information Provided By: Patient [...] 180 days allowed.). Opioid (more content not included)...[facility]09-01-2023 History of Present illness Narrative* Ramos Parekh [...] this visit. The patient or their legal nutrition representative has been informed of the risks [...] past surgical history on file. CURRENT MEDICATIONS: dollby-gvagskrz-kwmelds (CREON) 36,000-114,000- 180,000 unit delayed release capsule [...] BAQSIMI 3 mg/actuation nasal spray Use 1 [place] in the nose as needed. insulin glargine [...] Family History REVIEW OF SYSTEMS: Modified ESAS ([place] Symptom Assessment Scale): Information Provided By: Patient [...] was started while she was admitted at [facility] in June 2022 - She remains open [...] Medicine Nurse to do telephonic follow-up: No Hide Grader Services: None at this time Referral to Ensemble Member: No, not at this time Recommendations will be communicated back to the consulting service by way of shared electronic medical record. Ramos Parekh MD May 17, 2023 3:36 PM This note may have been partially generated using the [employer] voice recognition system. While every effort was made to correct voice recognition errors, kindly be aware that some errors may occasionally occur. documented in this encounterSelect Medical Specialty [facility] [place]09-01-2023 Miscellaneous Notes* Telephone Encounter - Mary Patient User Experience DeveloperTorito - 05/17/2023 9:41 AM EDT Patient called in requesting to re-establish with . previous patient. Added on for today. Electronically signed by [facility] Patient User Experience Developer, Torito at 05/17/2023 9:51 AM EDT documented in this encounterSelect Medical Specialty [facility] [place]07-26-2023 Evaluation note* Encounter Date Diagnosis Assessment Notes [...] D51.0) Pernicious anemia Continue B12 monthly injections [employer] Other 06-16-2023 Chief complaint Narrative - Reported* [...] has a follow-up for palliative care today. [facility] [address] Work Phone: [phone]) [phone] Chief complaint Narrative - Reported* An interactive audio and video telecommunication system which permits real time communications between the patient (at the originating site) and provider (at the distant site) was utilized to providethis telehealth service. * Verbal consent was requested and obtained from JULIETH SPENCER on this date, 12/28/2022 10:00 AM , for a telehealth visit. * follow up for palliative care [facility] [address] DO Work Phone: [phone] Evaluation note* Encounter Date Diagnosis Assessment Notes [...] Dec, Vitamin B12 deficiency (ICD-10 - E53.8) [employer] Other 03-27-2023 Evaluation note* Encounter Date Diagnosis Assessment Notes Treatment Notes Treatment Clinical Notes Nov, Generalized anxiety disorder (ICD-10 - F41.1) [employer] Other 03-01-2023 History of Present illness Narrative* [...] her pancreas [facility] She had no other concerns today. * I have personally reviewed the OARRS report for JULIETH SPENCER. I have considered the risks of abuse, dependence, addiction and diversion. [facility]ip[facility]xbx[facility] [address] DO Work Phone: [phone]) [phone] Chief complaint Narrative - Reported* An interactive audio and video telecommunication system which permits real time communications between the patient (at the originating site) and provider (at the distant site) was utilized to providethis telehealth service. * Verbal consent was requested and obtained from JULIETH SPENCER on this date, 11/02/2022 08:00 AM , for a telehealth visit. * Palliative care follow up visit [facility] [address] Work Phone: [phone]) 509-452801-23-2023 Evaluation note* Encounter Date Diagnosis Assessment Notes Treatment Notes Treatment Clinical Notes Sep, Generalized anxiety disorder (ICD-10 - F41.1) [employer] Other 12-20-2022 History of Present illness Narrative* Ольга Simmons - 09/04/2022 8:28 AM EST ----- Sunday, September 04, 2022 at 9:52:26 AM ----- ----- Provider: Zach Chapin DDS -- Clinic: [place] [address] ----- INITIAL/COMPREHENSIVE EXAM Patient presents for an [...] Visit: Prophy and Restorative documented in this [id number] Chief complaint Narrative - Reported* An interactive [...] medications he started, Hydromorphone and the Oxycodone. [facility] [address] Work Phone: [phone]) 655-507111-11-2022 History of Present illness Narrative* Ms. Julieth [...] risks of abuse, dependence, addiction and diversion. [facility] [address] Work Phone: [phone]) 723-912210-24-2022 Miscellaneous Notes* Telephone Encounter - Allison Mederos - 07/09/2022 3:48 PM EDT I faxed 05/10/22 Jovana office notes to Caprice Vazquez RN Can Technician FERNANDEZ/DEEP Lopez, , Irena Mederos * Telephone Encounter - Allison Mederos - 07/09/2022 10:05 AM EDT Caprice Vazquez, RN Can Technician FERNANDEZ/DEEP Lopez. Left message requesting progress and treatment plan update on this pt. [phone]. for office notes. Allison Mederos documented in this encounterSelect Medical [facility]ty [facility] [place]10-21-2022 Chief complaint Narrative - Reported* An interactive audio and video telecommunication system which permits real time communications between the patient (at the originating site) and provider (at the distant site) was utilized to providethis telehealth service. * Verbal consent was requested and obtained from JULIETH SPENCER on this date, 07/06/2022 08:00 AM , for a telehealth visit. * follow up for palliative care [facility] [address] Work Phone: [phone] 135-860510-12-2022 Miscellaneous Notes* Telephone Encounter - Alisa Harper Ma - 06/27/2022 5:23 PM EDT Spoke with patient, she said she doesn't think she wants to have the repeat ERCP done at a [facility] facility. She said she was not happy with the [facility]. She plans to schedule the procedure at a facility. I advised Julieth to call me back if she decides to schedule the repeat ERCP at [facility]. I also advised her that the procedure should be done 2 months from the first ERCP done on 06/06/22 Alisa Harper Ma * Telephone Encounter - Juhi Nino - 06/15/2022 11:17 AM EDT Spoke to patient she wants to call us back on Saturday with her schedule. * Telephone Encounter - Juhi Chacon [facility] - 06/12/2022 12:40 PM EDT Stefanie Solorzano APRN.MARGARET P [facility] Procedure Pool; P Cig Plant Inspector Clinical Pool; P [facility] [place] Clinical Pool ERCP biliary stent change due 2 month follow up She lives out of town Likely leaving and being discharged tomorrow Stefanie Solorzano APRN.DIRECTOR BLOOD BANK documented in this encounterSelect Medical Specialty [facility] [place]09-29-2022 NoteHNO ID: [id number] Author: Albertina Matthews RN Service: Care Management [...] 14, 2022 TIME: 3:06 PM PAGER/CONTACT #: [phone] History of Past illness Narrative* Problem Noted Date Resolved Date Acute on chronic pancreatitis 06/14/2022 documented as of this encounter (statuses as of 06/23/2022) [facility] History of Past illness Narrative* Problem Noted Date Resolved Date Acute on chronic pancreatitis 06/14/2022 documented as of this encounter (statuses as of 06/27/2022) [address]-2022 History of Past illness Narrative* Problem Noted Date Resolved Date Acute on chronic pancreatitis 06/14/2022 documented as of this encounter (statuses as of 07/18/2022) [address]2022 History of Past illness Narrative* Problem Noted Date Diagnosed Date Resolved Date Acute on chronic pancreatitis 06/14/2022 06/14/2022 documented as of this encounter (statuses as of 05/17/2023) [address]-2022 History of Past illness Narrative* Problem Noted Date Diagnosed Date Resolved Date Acute on chronic pancreatitis 06/14/2022 06/14/2022 documented as of this encounter (statuses as of 05/18/2023) [address]2022 History of Past illness Narrative* Problem Noted Date Diagnosed Date Resolved Date Acute on chronic pancreatitis 06/14/2022 06/14/2022 documented as of this encounter (statuses as of 05/23/2023) [address]2022 History of Past illness Narrative* Problem Noted Date Diagnosed Date Resolved Date Acute on chronic pancreatitis 06/14/2022 06/14/2022 documented as of this encounter (statuses as of 06/25/2023) [address]-2022 History of Past illness Narrative* Problem Noted Date Diagnosed Date Resolved Date Acute on chronic pancreatitis 06/14/2022 06/14/2022 documented as of this encounter (statuses as of 07/09/2023) [address]2022 History of Past illness Narrative* Problem Noted Date Diagnosed Date Resolved Date Acute on chronic pancreatitis 06/14/2022 06/14/2022 documented as of this encounter (statuses as of 07/09/2023) [address]2022 History of Past illness Narrative* Problem Noted Date Diagnosed Date Resolved Date Acute on chronic pancreatitis 06/14/2022 06/14/2022 documented as of this encounter (statuses as of 07/18/2023) [address]2022 History of Past illness Narrative* Problem Noted Date Diagnosed Date Resolved Date Acute on chronic pancreatitis 06/14/2022 06/14/2022 documented as of this encounter (statuses as of 08/02/2023) [address]2022 History of Past illness Narrative* Problem Noted Date Diagnosed Date Resolved Date Acute on chronic pancreatitis 06/14/2022 06/14/2022 documented as of this encounter (statuses as of 08/20/2023) [address]2022 History of Past illness Narrative* Problem Noted Date Diagnosed Date Resolved Date Acute on chronic pancreatitis 06/14/2022 06/14/2022 documented as of this encounter (statuses as of 10/28/2023) [address] History of Past illness Narrative* Problem Noted Date Diagnosed Date Resolved Date Acute on chronic pancreatitis 06/14/2022 06/14/2022 documented as of this encounter (statuses as of 11/07/2023) [address]2022 History of Past illness Narrative* Problem Noted Date Diagnosed Date Resolved Date Acute on chronic pancreatitis 06/14/2022 06/14/2022 documented as of this encounter (statuses as of 11/08/2023) [address]2022 History of Past illness Narrative* Problem Noted Date Diagnosed Date Resolved Date Acute on chronic pancreatitis 06/14/2022 06/14/2022 documented as of this encounter (statuses as of 11/08/2023) [address]2022 History of Past illness Narrative* Problem Noted Date Diagnosed Date Resolved Date Acute on chronic pancreatitis 06/14/2022 06/14/2022 documented as of this encounter (statuses as of 11/08/2023) [address]2022 History of Past illness Narrative* Problem Noted Date Diagnosed Date Resolved Date Acute on chronic pancreatitis 06/14/2022 06/14/2022 documented as of this encounter (statuses as of 11/13/2023) [address] History of Past illness Narrative* Problem Noted Date Diagnosed Date Resolved Date Acute on chronic pancreatitis 06/14/2022 06/14/2022 documented as of this encounter (statuses as of 11/14/2023) [address] History of Past illness Narrative* Problem Noted Date Diagnosed Date Resolved Date Acute on chronic pancreatitis 06/14/2022 06/14/2022 documented as of this encounter (statuses as of 11/14/2023) [address] History of Past illness Narrative* Problem Noted Date Diagnosed Date Resolved Date Acute on chronic pancreatitis 06/14/2022 06/14/2022 documented as of this encounter (statuses as of 11/15/2023) [facility] History of Past illness Narrative* Problem Noted Date Diagnosed Date Resolved Date Acute on chronic pancreatitis 06/14/2022 06/14/2022 documented as of this encounter (statuses as of 12/06/2023) [facility] History of Past illness Narrative* Problem Noted Date Diagnosed Date Resolved Date Acute on chronic pancreatitis 06/14/2022 06/14/2022 documented as of this encounter (statuses as of 12/07/2023) [facility] History of Past illness Narrative* Problem Noted Date Diagnosed Date Resolved Date Acute on chronic pancreatitis 06/14/2022 06/14/2022 documented as of this encounter (statuses as of 12/10/2023) [facility]-2022 NoteHNO ID: [id number] Author: Caro Jackson MD Service: Hospital Medicine Author Type: Physician Type: Progress Notes Filed: 06/13/2022 2:59 PM Note Text: HOSPITAL MEDICINE PROGRESS NOTE Hospital Medicine Attending: Caro Jackson MD Date: June 13, 2022 2:57 PM NIGHT AND WEEKEND COVERAGE: Patient admitted to [facility] Hospitalist team 3 under From 7am - 5pm, please contact pager [phone] for patient issues. From 5pm - 7am, please contact the Night Hospitalist on pager [phone] for patient issues. CC/HPI abdominal pain SUBJECTIVE [...] iv contrast (radiology procedure) INTRAVENOUS DIRECTED PRN otghnu-scntseoa-xncvoja 2 capsule cap(s) (CREON 36) 2 capsule ORAL TID before MEALS xgcbib-xjjivnxn-rwpjsnr 1 capsule cap(s) (CREON 12) 1 capsule [...] seen with hepatic venous (more content not included)...[facility]09-27-2022 NoteHNO ID: [id number] Author: Caro Jackson MD Service: Hospital Medicine Author Type: Physician Type: Progress Notes Filed: 06/12/2022 3:12 PM Note Text: HOSPITAL MEDICINE PROGRESS NOTE Hospital Medicine Attending: Caro Jackson MD Date: June 12, 2022 3:09 PM NIGHT AND WEEKEND COVERAGE: Patient admitted to [facility] Hospitalist team 3 under From 7am - 5pm, please contact pager [phone] for patient issues. From 5pm - 7am, please contact the Night Hospitalist on pager [phone] for patient issues. CC/HPI abdominal p2ain SUBJECTIVE [...] 1 mg INTRAVENOUS q 6 H PRN xgzxpp-kwtestjm-qgpaofz 1 capsule cap(s) (CREON 36) 1 capsule [...] fluid collection. Cholecystectomy change (more content not included)...[facility] 06-12-2022 NoteHNO ID: [id number] Author: Albertina Matthews RN Service: Care Management [...] 12, 2022 TIME: 11:29 AM PAGER/CONTACT #: [phone] Miscellaneous Notes* Telephone Encounter - Tio Mar RPh - 06/11/2022 5:17 PM EDT Requested Prescriptions Pending Prescriptions Disp Refills adalimumab (HUMIRA) 40 mg/0.8 mL injection 2 Each 2 Sig: Inject 0.8 mL subcutaneously every 2 weeks. Patient currently filling Humira through [facility]. Above order pended for Humira refill Rxto be sent back to [facility] for continued filling. Thanks Please review and advise. Tio Mar RPh documented in this encounterSelect [facility]09-26-2022 NoteHNO ID: [id number] Author: Caro Jackson MD Service: Hospital Medicine Author Type: Physician Type: Progress Notes Filed: 06/12/2022 8:15 AM Note Text: HOSPITAL MEDICINE PROGRESS NOTE Hospital Medicine Attending: Caro Jackson MD Date: June 11, 2022 1:48 PM NIGHT AND WEEKEND COVERAGE: Patient admitted to [facility] Hospitalist team 3 under From 7am - 5pm, please contact pager [phone] for patient issues. From 5pm - 7am, please contact the Night Hospitalist on pager [phone] for patient issues. CC/HPI abdominal p2ain SUBJECTIVE [...] 1 mg INTRAVENOUS q 6 H PRN mwavxi-dbyywcgz-tzuteif 1 capsule cap(s) (CREON 36) 1 capsule [...] clinical setting. No peripancreat (more content not included)...[facility]09-26-2022 History of Present illness Narrative* Stefanie [...] dosing. Stefanie Solorzano APRN.MARGARET documented in this encounterSelect Medical [facility]ty [facility]09-25-2022 NoteHNO ID: [id number] Author: Caro Jackson MD Service: Hospital Medicine Author Type: Physician Type: Progress Notes Filed: 06/10/2022 1:44 PM Note Text: HOSPITAL MEDICINE PROGRESS NOTE Hospital Medicine Attending: Caro Jackson MD Date: June 10, 2022 1:41 PM NIGHT AND WEEKEND COVERAGE: Patient admitted to [facility] Hospitalist team [address] Soraida Steinberg From 7am - 5pm, please contact pager [phone] for patient issues. From 5pm - 7am, please contact the Night Hospitalist on pager [phone] for patient issues. CC/HPI abdominal pain SUBJECTIVE [...] not demonstrated pr (more content not included)... [facility]09-24-2022 NoteHNO ID: [id number] Author: Soraida Steinberg MD Service: Hospital Medicine Author Type: Physician Type: Progress Notes Filed: 06/09/2022 3:35 PM Note Text: HOSPITAL MEDICINE PROGRESS NOTE Hospital Medicine Attending: Soraida Steinberg MD NIGHT AND WEEKEND COVERAGE: Patient admitted to [facility] Hospitalist team [address] Soraida Steinberg From 7am - 5pm, please contact pager [phone] for patient issues. From 5pm - 7am, please contact the Night Hospitalist on pager [phone] for patient issues. CC/HPI abdominal pain SUBJECTIVE [...] of the liver which (more content not included)...[facility]09-23-2022 NoteHNO ID: [id number] Author: Albertina Matthews RN Service: Care Management [...] 08, 2022 TIME: 2:50 PM PAGER/CONTACT #: [phone] NoteHNO ID: [id number] Author: Soraida Steinberg MD Service: Hospital Medicine Author Type: Physician Type: Progress Notes Filed: 06/08/2022 5:31 PM Note Text: HOSPITAL MEDICINE PROGRESS NOTE Hospital Medicine Attending: Soraida Steinberg MD NIGHT AND WEEKEND COVERAGE: Patient admitted to [facility] Hospitalist team [address] Soraida Steinberg From 7am - 5pm, please contact pager [phone] for patient issues. From 5pm - 7am, please contact the Night Hospitalist on pager [phone] for patient issues. CC/HPI abdominal pain SUBJECTIVE [...] cholecystectomy, ERCPs, EUS, now (more content not included)...[facility]09-22-2022 Note HNO ID: [id number] Author: Soraida Steinberg MD Service: Hospital Medicine Author Type: Physician Type: Progress Notes Filed: 06/07/2022 12:51 PM Note Text: HOSPITAL MEDICINE PROGRESS NOTE Hospital Medicine Attending: Soraida Steinberg MD NIGHT AND WEEKEND COVERAGE: Patient admitted to [facility] Hospitalist team [address] Soraida Steinberg From 7am - 5pm, please contact pager [phone] for patient issues. From 5pm - 7am, please contact the Night Hospitalist on pager [phone] for patient issues. CC/HPI abdominal pain SUBJECTIVE [...] diabetes: Continue insulin pump (more content not included)...[facility] [facility] NoteHNO ID: [id number] Author: Albertina Matthews RN Service: Care Management Author Type: Registered Nurse Type: Care Mgt Initial Assessment Filed: 06/07/2022 10:01 AM Note Text: CARE MANAGEMENT: ASSESSMENT AND DISCHARGE PLAN SERVICE DATE: June 07, 2022 SERVICE TIME: 956 PRIMARY CARE PHYSICIAN: Nat Medina DO Primary Contact: Extended Emergency Contact Information Primary Emergency Contact: Mami Scott Address: [address] [place] [address] Mobile Relation: Significant other [facility] Relation: Mother ADMISSION STATUS: Observation Insurance Provider: BLUE CARD PPO OOS NEEDS PRIOR TO DISCHARGE Needs Prior to Discharge: To Be Determined POTENTIAL TRANSITION PLANS To Be Determined ADVANCE DIRECTIVES Current Advance Directive: None Biology Manager Attempted to Assist with AD Completion: Yes Action: Education Provided;Patient Unwilling MS/BEHAVIOR Baseline Mental Status Prior to this Illness what was the patient's Baseline Mental Status?: Alert AND Oriented Prior to this illness, has anyone described the patient having any of the following behaviors?: Not Applicable Relationship of the informant to the patient:: Self FREEDOM OF CHOICE EXPLAINED: [place] of Choice Given: No Reason Not Given: [...] Living Situation: Patient lives home with s/o Mmai. 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 - 05/14/2022 2:34 PM EDT Patient is scheduled for 06/[address] Whaley at . Patient would like to be added to our cancellation list. Instructions sent to [facility]. * Telephone Encounter - Juhi [facility] - 05/14/2022 10:43 AM EDT Images from the original note were not included. MD Sagar Cuello MD; P Cig Spray Procedure Pool Eus-linear scope, possible biopsy, ercp stent placement--next avail [facility] Instructions* Patient Instructions* Allison Mederos - 05/10/2022 [...] consumption of these items. documented in this encounterSelect [facility] [place] History of Present illness Narrative* Vicky Whaley [...] per her current pain management team and [facility] as well as management of her Crohn's with Humira. She indicates she is currently transitioning to [facility] only and will she continue to see a nurse practitioner for this. CHIEF COMPLAINT: Julieth Spencer, 36 year old female, presents in the office today CC: Patient presents with: discuss schg EUS, dilated duct . HPI: 36-year-old female who was seen at the [facility] for management of acute on chronic pancreatitis [...] heavy only during college. 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 2 Each 2 oujukr-qjhvlvnh-mtxftrz (CREON) 36,000-114,000- 180,000 unit delayed release capsule [...] BAQSIMI 3 mg/actuation nasal spray Use 1 [place] in the nose as needed. insulin glargine [...] 05/10/2022 Time: 11:44 AM documented in this encounterSelect [facility] [place] Miscellaneous Notes* Telephone Encounter - Imelda Harper [...] understanding. Imelda Harper MA documented in this encounterSelect [facility] [place]-23-2022 Evaluation note* Encounter Date Diagnosis Assessment Notes [...] was published 05/07 ldl 76 at [employer] Other 08-17-2022 Miscellaneous Notes* Telephone Encounter - Tio Mar RP - 05/02/2022 5:27 PM EDT Requested Prescriptions Pending Prescriptions Disp Refills adalimumab (HUMIRA) 40 mg/0.8 mL injection 2 Each 2 Sig: Inject 0.8 mL subcutaneously every 2 weeks. My apologies- patient called back and states she would like Humira Rx sent to local [facility]. She states she has filled Humira [...] insurance restrictions Rx must be filled at [facility]. If refill request approved, Rx will [facility]. Thanks Please review and advise. Tio Mar RPh documented in this encounterSelect [facility] [place] History of Present illness Narrative* Bell Asher (Director Diabetes) - 05/01/2022 1:46 PM EDT [facility] received prescription(s) for Humira from Dr. Stefanie Solorzano's office. Benefits investigation was conducted, indicating that a prior authorization is required. PA was initiated and pending review. Plan Name: [employer] Plan Agent/[place]: [email or web address] Phone/Fax: [phone] / Case: Blount# [id number] Timeline: Marked urgent Bell Asher (Director Diabetes) documented in this encounterSelect [facility] [place]08-16-2022 Miscellaneous Notes* Telephone Encounter - Allison Mederos [...] be in person or virtual == Called [phone]. Spoke with pt, informed of Dr Whaley's instruction for visit. Offered 05[facility]10 or05/11, [facility]. Pt chose 05/10. Allison Mederos documented in this encounterSelect [facility] [place]-15-2022 History of Present illness Narrative* Sagar Guillen [...] spent on the call documented in this encounterSelect [facility] [place]08-12-2022 Miscellaneous Notes* Telephone Encounter - Allison Heller [...] if she has a fax number that [facility] send it to her to expedite. Mailed request form to patient. Requested call back. Allison Heller Ma documented in this encounterSelect [facility] [place]07-25-2022 Miscellaneous Notes* Telephone Encounter - Mariam Silver RN - 04/09/2022 3:03 PM EDT Prior authorization approved for HIDA scan for tomorrow 04/10/2022 9am See also note in FYI Approval 04/09/2022 - 05/24/2022 Approval number- [id number] Mariam Silver RN * Telephone Encounter - Laurie Palak Pss - 04/09/2022 1:11 PM EDT HIDA scan on tomorrow's schedule has been denied by insurance. The notes say that insurance needs proof that it is needed due to US results or a peer to peer review can be scheduled to approve it fortomorrow. Please review. Laurie Cid Pss documented in this encounterSelect Medical [facility]ty [facility] [place]06-23-2022 [id number] Pancreas Pre Op Evaluation with Contrast(Normal)RW-Krbfmjtjugystgpy-[employer] [facility] Work Phone: [phone] [id number] Pancreas Pre Op Evaluation with Contrast(Normal)[facility] [address] Work Phone: 1(875) 704-305706-23-2022 [id number] Pancreas Pre Op Evaluation with Contrast(Normal)[facility] [address] Work Phone: 1(162) 679-312806-10-2022 Chief complaint Narrative - Reported* An interactive audio and video telecommunication system which permits real time communications between the patient (at the originating site) and provider (at the distant site) was utilized to providethis telehealth service. * Verbal consent was requested and obtained from JULIETH SPENCER on this date, 02/23/2022 04:30 PM , for a telehealth visit. * Follow up viist [facility] [address] Work Phone: [phone]) 331-879305-17-2022 Evaluation note* Encounter Date Diagnosis Assessment Notes [...] Avg glucose 134. >250-12%, 70-180-88%, <70-0%. TMapus COMMUNICATIONS DIRECTOR, BEADING SAWYER-C, BC-ADM [employer] Other 04-30-2022 Evaluation note* Encounter Date Diagnosis [...] Patient care instructions given in writting by [facility] Care At Home document [employer] Other 03-28-2022 Evaluation note* Encounter Date Diagnosis [...] E78.5) Managing your cholesterol material was published [employer] Other 11-24-2020 History general Narrative - Reported* Type Description Date Medical History Anxiety Medical History Crohns Medical History type I diabetes Medical History Autoimmune Pancreatitis Medical History Nausea (resolved 08/09/2020) Medical History Impetigo, unspecified (resolved 08/17/2021) Surgical History [place] Tooth Extraction Surgical History colonoscopy Surgical History EGD Surgical History gallbladder 07/2018 Surgical History stent in pancreas Surgical History Stent removed from pancreas 2019 Surgical History Stent placed in pancreas 10/2021 Surgical History Left CTR 08/2022 Surgical History Right CTR 10/17/22 Hospitalization History Crohns 2009 Hospitalization History Pancreatitis 2 [employer] Other 11-24-2020 History general Narrative - Reported* Type Description Date Medical History Anxiety Medical History Crohns Medical History type I diabetes Medical History Autoimmune Pancreatitis Medical History Nausea (resolved 08/09/2020) Medical History Impetigo, unspecified (resolved 08/17/2021) Medical History Pancreatitis Surgical History [place] Tooth Extraction Surgical History colonoscopy Surgical History EGD Surgical History gallbladder 07/2018 Surgical History stent in pancreas Surgical History Stent removed from pancreas 2019 Surgical History Stent placed in pancreas 10/2021 Surgical History Left CTR 08/2022 Surgical History Right CTR 10/17/22 Hospitalization History Crohns 2009 Hospitalization History Pancreatitis 2 Hospitalization History Pancreatitis at [facility] 2022 [employer] Other chief complaint Narrative - Reported* An interactive audio and video telecommunication system which permits real time communications between the patient (at the originating site) and provider (at the distant site) was utilized to providethis telehealth service. * Virtual follow up appt [facility] [address] Work Phone: chief complaint Narrative - Reported* An interactive audio and video telecommunication system which permits real time communications between the patient (at the originating site) and provider (at the distant site) was utilized to providethis telehealth service. * Virtual follow up appt [facility] [address] Work Phone: chief complaint Narrative - Reported* An interactive audio and video telecommunication system which permits real time communications between the patient (at the originating site) and provider (at the distant site) was utilized to providethis telehealth service. * [facility] [address] Work Phone: chief complaint Narrative - Reported* An interactive audio and video telecommunication system which permits real time communications between the patient (at the originating site) and provider (at the distant site) was utilized to providethis telehealth service. * Patient has a follow-up for palliative care today. [facility] [address] [address] Work Phone: chief complaint Narrative - Reported* An interactive audio and video telecommunication system which permits real time communications between the patient (at the originating site) and provider (at the distant site) was utilized to providethis telehealth service. * Patient has a follow-up for palliative care today. [facility] [address] Work Phone: chief complaint Narrative - Reported* An interactive audio and video telecommunication system which permits real time communications between the patient (at the originating site) and provider (at the distant site) was utilized to providethis telehealth service. * Palliative care follow up for chronic pancreatitis pain management [facility] [address] [address] Work Phone: chief complaint Narrative - Reported* An interactive audio and video telecommunication system which permits real time communications between the patient (at the originating site) and provider (at the distant site) was utilized to providethis telehealth service. * It's a check-up on how I am doing with the new medications he started, Hydromorphone and the Oxycodone. [facility] [address] [address] Work Phone: Evaluation note* Psychological: [...] no distress but uncomfortable, alert and cooperative [facility] Psychological: Appropriate mood and behaviorExtremities: normal [...] developed, awake/alert/oriented x3, nodistress, alert and cooperative [facility] noteNo [employer] Other Evaluation note* Diagnosis Chronic pancreatitis, unspecified pancreatitis type (HCC) [K86.1 (ICD-10-CM)]- Primary documented in this encounter [facility] note* Diagnosis Crohn's disease with complication, unspecified gastrointestinal tract location (HCC)- Primary documented in this encounter [facility] note* Diagnosis Other chronic pancreatitis (HCC)- Primary documented in this encounter [facility] note* Diagnosis Blood in mouth of unknown source- Primary Other and unspecified diseases of the oral soft tissues documented in this encounter [facility] noteNo assessment information availableCleveland Clinic [facility] Work Phone: Evalurvqyr note* Diagnosis Palliative care by specialist- Primary Chronic calcific pancreatitis (HCC) Chronic pancreatitis Malnutrition of moderate degree (HCC) Malnutrition of moderate degree Chronic abdominal pain Abdominal pain, unspecified site Nausea Nausea alone documented in this encounter [facility] note* Diagnosis Palliative care by specialist Chronic calcific pancreatitis (HCC) Chronic pancreatitis Chronic abdominal pain Abdominal pain, unspecified site Nausea Nausea alone documented in this encounter [facility] note* Diagnosis Onset Date Resolution Status Abdominal pain acute Acute on chronic pancreatitis acute Nausea & vomiting acute Type 1 diabetes mellitus acu te UTI (urinary tract infection) acute Crohns disease [facility] Work Phone: Evaluation note* Diagnosis Onset Date Resolution Status Abdominal pain acute Acute on chronic pancreatitis acute Acute pancreatitis acute Chronic pancreatitis acute Common bile duct dilatation acute Elevated LFTs acute Nausea & vomiting acute Type 1 diabetes mellitus acu te UTI (urinary tract infection) acute Crohns disease [facility] Work Phone: Evaluation note* Diagnosis Chronic abdominal pain Abdominal pain, unspecified site Alcohol-induced acute pancreatitis, unspecified complication status documented in this encounter [facility] Work Phone: Evaluation note* Diagnosis Palliative care by specialist Chronic calcific pancreatitis (HCC) Chronic pancreatitis Chronic abdominal pain Abdominal pain, unspecified site [facility] encounter [facility]* Diagnosis Alcohol-induced chronic pancreatitis (CMS/HCC)- Primary Chronic pancreatitis 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) documented in this encounter [facility] Work Phone: Evaluation note* Diagnosis Palliative care by specialist Chronic calcific pancreatitis (HCC) Chronic pancreatitis Chronic abdominal pain Abdominal pain, unspecified site documented in this encounter [facility] note* Diagnosis 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)- Primary Chronic pancreatitis (CMS/HCC) Chronic pancreatitis Alcohol-induced chronic pancreatitis (CMS/HCC) Chronic pancreatitis Alcohol-induced chronic pancreatitis (CMS/HCC) Chronic pancreatitis 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) documented in this encounter [facility] Work Phone: Evaluation note* Diagnosis 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)- Primary Chronic pancreatitis (CMS/HCC) Chronic pancreatitis Alcohol-induced chronic pancreatitis (CMS/HCC) Chronic pancreatitis Alcohol-induced chronic pancreatitis (CMS/HCC) Chronic pancreatitis 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) documented in this encounter [facility] Work Phone: Evaluation note* Diagnosis 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)- Primary Chronic pancreatitis (CMS/HCC) Chronic pancreatitis Alcohol-induced chronic pancreatitis (CMS/HCC) Chronic pancreatitis Alcohol-induced chronic pancreatitis (CMS/HCC) Chronic pancreatitis 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) documented in this encounter [facility] Work Phone: Evaluation note* Diagnosis Palliative care by specialist Chronic calcific pancreatitis (HCC) Chronic pancreatitis Chronic abdominal pain Abdominal pain, unspecified site documented in this encounter [facility] note* Diagnosis DKA (diabetic ketoacidosis) ([facility])- Primary Type II or unspecified type diabetes mellitus with ketoacidosis, not stated as uncontrolled Dehydration Acute pancreatitis, unspecified complication status, unspecified pancreatitis type Pancreatic insufficiency Other specified disease of pancreas Type 1 diabetes mellitus without complication ([facility]) Type I (juvenile type) diabetes mellitus without mention of complication, not stated as uncontrolled Nausea Nausea alone Diabetic ketoacidosis without coma associated with type 1 diabetes mellitus ([facility]) Dehydration History of pancreatectomy Pancreatic insufficiency Other specified disease of pancreas Chronic abdominal pain Abdominal pain, unspecified site Chronic pancreatitis due to acute alcohol intoxication ([facility]) DM type 1 (diabetes mellitus, type 1) ([facility]) Type I (juvenile type) diabetes mellitus without mention of complication, not stated as uncontrolled H/O chronic pancreatitis documented in this encounter [facility] Work Phone: Evaluation note* Diagnosis Palliative care by specialist- Primary Chronic calcific pancreatitis (HCC) Chronic pancreatitis History of pancreatectomy Chronic abdominal pain Abdominal pain, unspecified site Nausea Nausea alone documented in this encounter [facility] note* Diagnosis History of pancreatectomy- Primary Chronic abdominal pain Abdominal pain, unspecified site Palliative care by specialist documented in this encounter [facility] note* Diagnosis Type 1 diabetes mellitus without complication ([facility]) Type I (juvenile type) diabetes mellitus without mention of complication, not stated as uncontrolled documented in this encounter [facility] Work Phone: Evaluation note* Diagnosis Palliative care by specialist Chronic calcific pancreatitis (HCC) Chronic pancreatitis Chronic abdominal pain Abdominal pain, unspecified site documented in this encounter [facility] note* Diagnosis Onset Date Resolution Status Autoimmune pancreatitis acut e Crohn's disease acute GERD (gastroesophageal reflux disease) acute HTN (hypertension) acute Hyperlipidemia acute Type 1 diabetes mellitus with hyperglycemia acute [facility] Work Phone: Evaluation note* Diagnosis Palliative care by specialist- Primary History of pancreatectomy Chronic calcific pancreatitis (HCC) Chronic pancreatitis Chronic abdominal pain Abdominal pain, unspecified site Nausea Nausea alone documented in this encounter [facility] note* Diagnosis Palliative care by specialist- Primary Chronic abdominal pain Abdominal pain, unspecified site documented [facility] this encounter [facility] Narrative - Reported* Type Description Date Medical History Anxiety Medical History Crohns Medical History type I diabetes Medical History Pancreatitis Surgical History [place] Tooth Extraction Surgical History colonoscopy Surgical History EGD Surgical History gallbladder 07/2018 Surgical History stent in pancreas Surgical History Stent removed from pancreas 2019 Surgical History Stent placed in pancreas 10/2021 Hospitalization History Crohns 2009 Hospitalization History Pancreatitis 2 [employer] Other Hisdcin general Narrative - Reported* Type Description Date Medical History Anxiety Medical History Crohns Medical History type I diabetes Medical History Autoimmune Pancreatitis Surgical History [place] Tooth Extraction Surgical History colonoscopy Surgical History EGD Surgical History gallbladder 07/2018 Surgical History stent in pancreas Surgical History Stent removed from pancreas 2019 Surgical History Stent placed in pancreas 10/2021 Hospitalization History Crohns 2009 Hospitalization History Pancreatitis 2 [employer] Other Hisxnlo general Narrative - Reported* Type Description Date Medical History Anxiety Medical History Crohns Medical History type I diabetes Medical History Autoimmune Pancreatitis Surgical History [place] Tooth Extraction Surgical History colonoscopy Surgical History EGD Surgical History gallbladder 07/2018 Surgical History stent in pancreas Surgical History Stent removed from pancreas 2019 Surgical History Stent placed in pancreas 10/2021 Surgical History Left CTR 08/2022 Surgical History Right CTR 10/17/22 Hospitalization History Crohns 2009 Hospitalization History Pancreatitis 2 [employer] Other History of Present illness Narrative* ID: Ms. Spencer is a 33-year-old female with a history of DMT1 (with low C-peptide levels), CD (on Humira in; follows up with her primary GI physician, Dr. Samy Longo at [facility]) and cholecystectomy (with long cystic duct remnant) who presents to for follow-up. * HPI: * She apparently has a history of recurrent pancreatitis with pseudocyst (diagnosed late 2018 soon after cholecystectomy performed for biliary colic). Of note, she has a positive FHx of pancreatic cancer in her grandfather, who was diagnosed at age 64. IgG4 levels checked at [facility] were wnl per HIE record review. No recent history of alcohol abuse, hypercalcemia or hypertriglyceridemia. Previous EUS+FNA of the pancreas by Dr. Yonathan Rosas at [facility] in 2019 was negative. * She was admitted to [facility] in Oct 2019 as a transfer [facility] for abdominal pain. CT abd/pelv revealed acute [...] a year; treated by [facility] Longo [facility] She says that she then was in remission until late 2019, when she started to experience diarrhea. Per her recollection, she also had a colonoscopy with biopsies in 2013 which was apparently normal. She takes Humira l0alndp x 2 years. 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 Spencer is a 33-year-old female with a history of DMT1 (with low C-peptide levels), CD (on Humira in; follows up with her primary GI physician, Dr. Samy Longo at [facility]) and cholecystectomy (with long cystic duct remnant) who presents to for follow-up. * HPI: * She apparently has a history of recurrent pancreatitis with pseudocyst (diagnosed late 2018 soon after cholecystectomy performed for biliary colic). Of note, she has a positive FHx of pancreatic cancer in her grandfather, who was diagnosed at age 64. IgG4 levels checked at [facility] were wnl per MIE record review. No recent history of alcohol abuse, hypercalcemia or hypertriglyceridemia. Previous EUS+FNA of the pancreas by Dr. Yonathan Rosas at [facility] in 2019 was negative. * She was admitted to [facility] in Oct 2019 as a transfer from [facility] for abdominal pain. CT abd/pelv revealed acute [...] a year; treated by Dr. Longo at [facility] She says that she then was in remission until late 2019, when she started to experience diarrhea. Per her recollection, she also had a colonoscopy with biopsies in 2013 which was apparently normal. She takes Humira [id number] x 2 years. 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 Spencer is a 33-year-old female with a history of DMT1 (with low C-peptide levels), CD (on Humira in; follows up with her primary GI physician, Dr. Samy Longo at [facility]) and cholecystectomy (with long cystic duct remnant) who presents to for follow-up. * HPI: * She apparently has a history of recurrent pancreatitis with pseudocyst (diagnosed late 2018 soon after cholecystectomy performed for biliary colic). Of note, she has a positive FHx of pancreatic cancer in her grandfather, who was diagnosed at age 64. IgG4 levels checked at [facility] were wnl per [facility] record review. No recent history of alcohol abuse, hypercalcemia or hypertriglyceridemia. Previous EUS+FNA of the pancreas by Dr. Yonathan Rosas at [facility] in 2018 was negative. * She was admitted to [facility] in Oct 2019 as a transfer from [facility] for abdominal pain. CT abd/pelv revealed acute [...] a year; treated by Dr. Longo at [facility] She says that she then was in remission until late 2019, when she started to experience diarrhea. Per her recollection, she also had a colonoscopy with biopsies in 2013 which was apparently normal. She takes Humira [id number] x 2 years. 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 * CT A/P with acute on chronic pancreatitis and concern about ascending cholangitis although * clinically patient does not have signs and symptoms of cholangitis with no * fever, leukocytosis into rectum worsening LFTs. * Full ten point ROS obtained with no difference than above [facility] [address] Work Phone: History of Present [...] risks of abuse, dependence, addiction and diversion. [facility] [address] Work Phone: History of Present [...] risks of abuse, dependence, addiction and diversion. [facility] [address] Work Phone: History of Present illness Narrative* Patient seen for exam following chronic pain related to chronic pancreatitis. She feels the pain has worsened somewhat since last visit, especially after a stay at [facility] during which time they replaced the stent [...] the last Controlled Substance Agreement: Sent Today [facility] [address] Work Phone: History of Present [...] risks of abuse, dependence, addiction and diversion. [facility] [address] Work Phone: History of Present [...] alsosuffers from Crohn's disease and takes Humira. [facility] [address] Work Phone: History of Present [...] been slightly increased which is a good thing.[facility] [address] Work Phone: History of Present [...] risks of abuse, dependence, addiction and diversion. [facility] [address] Work Phone: History of Present [...] risks of abuse, dependence, addiction and diversion. [facility] [address] Work Phone: Hospital Discharge instructions* [...] subcutaneous insulin. You were alson seen by pain ricardo caro and r ecommedned to place on [...] taking it as scheduled and follow-up with biological science technician for Crohn's disease. * Call Provider If:Any new concerning symptoms. * Follow Up Appointment 1:Physician/Dept/Service: Pain: Dr Quinonesuled Date/Time: 29-Nov-2021 13:30Location: [address], [place] [address]Anqtu Number: [phone]: Please bring your insurance card, photo id, a list of medication in the original bottle, any co-pays you may have, and the discharge summary * Follow Up Appointment 2:Physician/Dept/Service: GI: Dr Guerrerouled Date/Time: 30-Nov-2021 13:30Location: [address] [place], [place] [address]Xrybq Number: [phone]: Please bring your insurance card, photo id, a list of medication in the original bottle, any co-pays you may have, and the discharge summary * Follow Up Appointment 3:Physician/Dept/Service: Ramos Parekh MD, Hospice and Palliative MedicineScheduled Date/Time: 17-Nov-2021 14:30Location: [facility] [address] , [address] [address]Zjqsc Number: [phone]: Please bring your insurance card, photo id, a list of medication in the original bottle, any co-pays you may have, and the discharge summary [facility]* Activity:activity as tolerated. May shower. [...] and the pain was managed with a MED SPECIALIST (patient-controlled analgesia- the button you pushed to [...] a follow up appointment in 1-2 we sc. If you develop any new or concerning [...] Palliative care- Dr. Bernardcheduled Date/Time: 16-Feb-2022 11:30Location: [facility] [address] , [address] [address]Bdapt Number: [phone]: Please bring your insurance card, photo id, a list of medication in the original bottle, any co-pays you may have, and the discharge summary * Follow Up Appointment 3:Physician/Dept/Service: GI- for Prednisone taper and Pancreatic Duct stent removalComments: They will call to schedule this with you [facility] Additional Instructions Follow-up with Pain Management as previously scheduled.[facility] Work Phone: Reason for referral (narrative)* Outpatient Procedure (Routine) - Pending Review Specialty Diagnoses / Procedures Referred By Nano alfredo Referred To Contact [facility] Diagnoses Other chronic pancreatitis (HCC) Procedures ERCP ERCP BILIARY/PANC DUCT STENT EXCHANGE W/DIL&WIRE Vicky Whaley MD [address] [place] [address] [address] Referral ID Status Reason Start Date Expiration Date Visits Requested Visits Authorized [id number] Pending Review Auto-Generat ed Referral 05/13/2022 05/13/2023 1 1 * Outpatient Procedure (Routine) - Pending Review Specialty Diagnoses / Procedures Referred By Nano alfredo Referred To Contact [facility] Diagnoses Other chronic pancreatitis (HCC) Procedures EGD - THERAPEUTIC, EUS, OR TUBE INTERVENTIONS EGD INTRMURAL US NEEDLE ASPIRATE/BIOPSY ESOPHAGS Vicky Whaley MD [address] [place] [address] [facility] [address] [place] [address] Referral ID Status Reason Start Date Expiration Date Visits Requested Visits Authorized [id number] Pending Review Auto-Generat ed Referral 05/13/2022 05/13/2023 1 1 [facility] for referral (narrative)* Consultation (Routine) - Authorized Specialty Diagnoses / Procedures Referred By Contac t Referred To Contact Pharmacy Diagnoses Type 1 diabetes mellitus without complication (CMS/[place]) [place] [address] Department of Surgery-[place] [address] [facility] [address] [address] Referral ID Status Reason Start Date Expiration Date Visits Requested Visits Authorized [id number] Authorized Specialty Services Required 11/05/2023 11/04/2024 1 1 * Consultation (Routine) - Authorized Specialty Diagnoses / Procedures Referred By Contac t Referred To Contact Endocrinology Diagnoses Acute pancreatitis, unspecified complication status, unspecified pancreatitis type Pancreatic insufficiency Bárbara Redman, CARNY-DIRECTOR BLO[employer] BANK [address] Department of Surgery-Surgical Oncology [place] [phone] Referral ID Status Reason Start Date Expiration Date Visits Requested Visits Authorized [id number] Authorized Specialty Services Required 11/05/2023 11/04/2024 1 1 [facility] Work Phone: Reason for referral (narrative)* Consultation (Routine) - Authorized Specialty Diagnoses / Procedures Referred By Contac t Referred To Contact Nutrition Diagnoses Type 1 diabetes mellitus without complication (CMS/HCC) Magi Ramesh PA-C [address] Department of Medicine-[place] [address] Referral ID Status Reason Start Date Expiration Date Visits Requested Visits Authorized [id number] Authorized Specialty Services Required 11/21/2023 11/20/2024 1 1 [facility] Work Phone: Reason for visit Narrative* Consultation (Routine) - Authorized Specialty Diagnoses / Procedures Referred By Contguevara t Referred To Contact Pharmacy Diagnoses Type 1 diabetes mellitus without complication (CMS/HCC) Procedures Follow Up In Clinical Pharmacy Magi Ramesh PA-C [address] Department of Medicine-[place] [address] [facility] [address] [address] [place] [address] Referral ID Status Reason Start Date Expiration Date V isits Requested Visits Authorized [id number] Authorized 11/13/2023 11/12/2024 1 1 [facility] Work Phone: Chief Complaint LUQ pain, [...] Palliative care follow up visit Family History No Family History Records FoundUnknown Family Member Name Dates Details No pertinent [...] Unknown brother Unknown Summary Purpose Advance Directives No Advanced Directives Records FoundDocuments on File Type Date Recorded 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 Advance Directive(s) 03/02/2019 1:21 PM Advance Directive Response Recorded Date/ Time Advance Directives No July 14, 2018 5:41pm Documents on File Type Date Recorded 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 Living Will 10/11/2023 Latest Code [...] By Nano t Referred To Contact Diagnoses Palliative care by specialist Chronic abdominal pain Ramos Parekh MD [address] [place] [address] Referral ID Status Reason Start Date Expiration Date Visits Re quested Visits Authorized [id number] Closed 1 1 Specialty Diagnoses / Procedures Referred By Contac t Referred To Contact Diagnoses History of pancreatectomy Chronic abdominal pain Palliative care by specialist Ramos Parekh MD [address] [place] [phone] Referral ID Status Reason Start Date Expiration Date Visits Re quested Visits Authorized [id number] Closed 1 1 Specialty Diagnoses / Procedures Referred By Contac t Referred To Contact Diagnoses Alcohol-induced chronic pancreatitis (CMS/HCC) Procedures EKG 12 [place] [address] [address] Department of Surgery-Surgical Oncology [place] [phone] Referral ID Status Reason Start Date Expiration Date V isits Requested Visits Authorized [id number] Pending Review 08/19/2023 08/18/2024 1 1 Specialty Diagnoses / Procedures Referred By Contac t Referred To Contact Radiology Diagnoses Alcohol-induced chronic pancreatitis (CMS/HCC) Procedures [place] abdomen [place] [address] [address] Department of Surgery-[place] [address] Referral ID Status Reason Start Date Expiration Date Visits Requested Visits Authorized [id number] Pending Review Perform Procedure 08/19/2023 08/18/2024 1 1 Specialty Diagnoses / Procedures Referred By Contac t Referred To Contact Pain Management Diagnoses Chronic calcific pancreatitis (HCC) Chronic abdominal pain Procedures CONSULT TO PAIN MGT OFFICE/OUTPATIENT [facility] 60-74 MINUTES Ramos Parekh MD [facility] [place] [address] Referral ID Status Reason Start Date Expiration Date Visits Requested Visits Authorized [id number] Authorized PCP Requested Referral 05/17/2023 05/16/2024 1 [...] infection) Crohns disease Chief Complaint Possible Covid-Sick [phone] Chief Complaint Possible Covid-Sick [phone] Amb Documentation follow up Reason for Visit Autoimmune pancreati tis Crohn's disease GERD (gastroesophageal reflux disease) HTN (hypertension) Hyperlipidemia Type 1 diabetes mellitus with hyperglycemia Additional Source Comments INFORMATION SOURCE (unrecogn ized section and content) DATE CREATED AUTHOR 07/28/2021 [facility] DATE CREATED AUTHOR AUTHOR'S ORGANIZ ATION 05/11/2022 [facility] DATE CREATED AUTHOR AUTHOR'S ORGANIZ ATION 06/17/2022 [facility] DATE CREATED AUTHOR AUTHOR'S ORGANIZ ATION 02/25/2023 [facility] DATE CREATED AUTHOR AUTHOR'S ORGANIZ ATION 03/02/2023 [facility] DATE CREATED AUTHOR AUTHOR'S ORGANIZ ATION 08/03/[address] [facility] dical [facility] DATE CREATED AUTHOR AUTHOR'S ORGANIZ ATION 10/13/2023 [facility] DATE CREATED AUTHOR AUTHOR'S ORGANIZ ATION 11/15/2023 [facility] DATE CREATED AUTHOR AUTHOR'S ORGANIZ ATION 11/15/2023 [facility] DATE CREATED AUTHOR AUTHOR'S ORGANIZ ATION 12/08/2023 [facility] DATE CREATED AUTHOR AUTHOR'S ORGANIZ ATION 12/14/2023 [facility] <item><item><item> Privacy Markings (unrecogniz ed section [...] section and content) Reason Comments 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 - Other Reason Comments Request Outside Medical Records Reason Comments Abdominal Pain Reason Comments Appointment Schd visit Reason Onset Date Comments SPP Inflammatory Conditions - Treatment Referral 05/01/2022 [facility] Insurance Authorization 05/01/2022 [place] Submi tted Reason [...] (CMS/HCC) Procedures EKG 12 [place] [address] [address] Department of Surgery-[place] [address] Referral ID Status Reason Start Date Expiration Date V isits Requested Visits Authorized [id number] Pending Review 08/19/2023 08/18/2024 1 1 Specialty Diagnoses / Procedures Referred By Contac t Referred To Contact Radiology Diagnoses Alcohol-induced chronic pancreatitis (CMS/HCC) Procedures CT pancreas pre OP evaluation w IV contrast [place] abdomen [place] [address] [address] Department of Surgery-[place]urgical [place] [address] Referral ID Status Reason Start Date Expiration Date Visits Requested Visits Authorized [id number] Pending Review Perform Procedure 08/19/2023 08/18/2024 1 1 Referral ID Status Reason Start Date Expiration Date Visits Requested Visits Authorized [id number] Authorized Perform Procedure 08/19/2023 08/18/2024 1 1 Reason Onset Date Comments Refill Request Refill Request 10/28/2023 Specialty Diagnoses / Procedures Referred By Nano t Referred To Contact Diagnoses Dehydration Dehydration Procedures No [place] [address] [address] [facility] of Surgery-Surgical Oncology [place] [phone] [facility] [address] [place] [address] Referral ID Status Reason Start Date Expiration Date Visits Re quested Visits Authorized [id number] 1 1 Reason Comments Patient Question Reason [...] or prosecute any alcohol or drug abuse patient.[facility] the event this information is protected by the Federal Confidentiality of Alcohol and Drug Abuse Patient Records regulations: The Federal rules restrict any use of the information to criminally investigate or prosecute any alcohol or drug abuse patient.[facility] the event this information is protected by the Federal Confidentiality of Alcohol and Drug Abuse Patient Records regulations: The Federal rules restrict any use of the information to criminally investigate or prosecute any alcohol or drug abuse patient.[facility] the event this information is protected by the Federal Confidentiality of Alcohol and Drug Abuse Patient Records regulations: The Federal rules restrict any use of the information to criminally investigate or prosecute any alcohol or drug abuse patient.[facility] the event this information is protected by the Federal Confidentiality of Alcohol and Drug Abuse Patient Records regulations: The Federal rules restrict any use of the information to criminally investigate or prosecute any alcohol or drug abuse patient.[facility] the event this information is protected by the Federal Confidentiality of Alcohol and Drug Abuse Patient Records regulations: The Federal rules restrict any use of the information to criminally investigate or prosecute any alcohol or drug abuse patient.[facility] the event this information is protected by the Federal Confidentiality of Alcohol and Drug Abuse Patient Records regulations: The Federal rules restrict any use of the information to criminally investigate or prosecute any alcohol or drug abuse patient.[facility] the event this information is protected by the Federal Confidentiality of Alcohol and Drug Abuse Patient Records regulations: The Federal rules restrict any use of the information to criminally investigate or prosecute any alcohol or drug abuse patient.[facility] the event this information is protected by the Federal Confidentiality of Alcohol and Drug Abuse Patient Records regulations: The Federal rules restrict any use of the information to criminally investigate or prosecute any alcohol or drug abuse patient.[facility] the event this information is protected by the Federal Confidentiality of Alcohol and Drug Abuse Patient Records regulations: The Federal rules restrict any use of the information to criminally investigate or prosecute any alcohol or drug abuse patient.[facility] the event this information is protected by the Federal Confidentiality of Alcohol and Drug Abuse Patient Records regulations: The Federal rules restrict any use of the information to criminally investigate or prosecute any alcohol or drug abuse patient.[facility] the event this information is protected by the Federal Confidentiality of Alcohol and Drug Abuse Patient Records regulations: The Federal rules restrict any use of the information to criminally investigate or prosecute any alcohol or drug abuse patient.[facility] the event this information is protected by the Federal Confidentiality of Alcohol and Drug Abuse Patient Records regulations: The Federal rules restrict any use of the information to criminally investigate or prosecute any alcohol or drug abuse patient.[facility] the event this information is protected by the Federal Confidentiality of Alcohol and Drug Abuse Patient Records regulations: The Federal rules restrict any use of the information to criminally investigate or prosecute any alcohol or drug abuse patient.[facility] the event this information is protected by the Federal Confidentiality of Alcohol and Drug Abuse Patient Records regulations: The Federal rules restrict any use of the information to criminally investigate or prosecute any alcohol or drug abuse patient.[facility] the event this information is protected by the Federal Confidentiality of Alcohol and Drug Abuse Patient Records regulations: The Federal rules restrict any use of the information to criminally investigate or prosecute any alcohol or drug abuse patient.[facility] the event this information is protected by the Federal Confidentiality of Alcohol and Drug Abuse Patient Records regulations: The Federal rules restrict any use of the information to criminally investigate or prosecute any alcohol or drug abuse patient.[facility] the event this information is protected by the Federal Confidentiality of Alcohol and Drug Abuse Patient Records regulations: The Federal rules restrict any use of the information to criminally investigate or prosecute any alcohol or drug abuse patient.[facility] the event this information is protected by the Federal Confidentiality of Alcohol and Drug Abuse Patient Records regulations: The Federal rules restrict any use of the information to criminally investigate or prosecute any alcohol or drug abuse patient.[facility] the event this information is protected by the Federal Confidentiality of Alcohol and Drug Abuse Patient Records regulations: The Federal rules restrict any use of the information to criminally investigate or prosecute any alcohol or drug abuse patient.[facility] the event this information is protected by the Federal Confidentiality of Alcohol and Drug Abuse Patient Records regulations: The Federal rules restrict any use of the information to criminally investigate or prosecute any alcohol or drug abuse patient.[facility] the event this information is protected by the Federal Confidentiality of Alcohol and Drug Abuse Patient Records regulations: The Federal rules restrict any use of the information to criminally investigate or prosecute any alcohol or drug abuse patient.[facility] the event this information is protected by the Federal Confidentiality of Alcohol and Drug Abuse Patient Records regulations: The Federal rules restrict any use of the information to criminally investigate or prosecute any alcohol or drug abuse patient.[facility] the event this information is protected by the Federal Confidentiality of Alcohol and Drug Abuse Patient Records regulations: The Federal rules restrict any use of the information to criminally investigate or prosecute any alcohol or drug abuse patient.[facility] the event this information is protected by the Federal Confidentiality of Alcohol and Drug Abuse Patient Records regulations: The Federal rules restrict any use of the information to criminally investigate or prosecute any alcohol or drug abuse patient.[facility] the event this information is protected by the Federal Confidentiality of Alcohol and Drug Abuse Patient Records regulations: The Federal rules restrict any use of the information to criminally investigate or prosecute any alcohol or drug abuse patient.[facility] the event this information is protected by the Federal Confidentiality of Alcohol and Drug Abuse Patient Records regulations: The Federal rules restrict any use of the information to criminally investigate or prosecute any alcohol or drug abuse patient.[facility] the event this information is protected by the Federal Confidentiality of Alcohol and Drug Abuse Patient Records regulations: The Federal rules restrict any use of the information to criminally investigate or prosecute any alcohol or drug abuse patient.[facility] the event this information is protected by the Federal Confidentiality of Alcohol and Drug Abuse Patient Records regulations: The Federal rules restrict any use of the information to criminally investigate or prosecute any alcohol or drug abuse patient.[facility] the event this information is protected by the Federal Confidentiality of Alcohol and Drug Abuse Patient Records regulations: The Federal rules restrict any use of the information to criminally investigate or prosecute any alcohol or drug abuse patient.[facility] the event this information is protected by the Federal Confidentiality of Alcohol and Drug Abuse Patient Records regulations: The Federal rules restrict any use of the information to criminally investigate or prosecute any alcohol or drug abuse patient.[facility] the event this information is protected by the Federal Confidentiality of Alcohol and Drug Abuse Patient Records regulations: The Federal rules restrict any use of the information to criminally investigate or prosecute any alcohol or drug abuse patient.[facility] the event this information is protected by the Federal Confidentiality of Alcohol and Drug Abuse Patient Records regulations: The Federal rules restrict any use of the information to criminally investigate or prosecute any alcohol or drug abuse patient.[facility] the event this information is protected by the Federal Confidentiality of Alcohol and Drug Abuse Patient Records regulations: The Federal rules restrict any use of the information to criminally investigate or prosecute any alcohol or drug abuse patient.[facility]In the event this information is protected by the Federal Confidentiality of Alcohol and Drug Abuse Patient Records regulations: The Federal rules restrict any use of the information to criminally investigate or prosecute any alcohol or drug abuse patient.[facility]In the event this information is protected by the Federal Confidentiality of Alcohol and Drug Abuse Patient Records regulations: The Federal rules restrict any use of the information to criminally investigate or prosecute any alcohol or drug abuse patient.[facility]In the event this information is protected by the Federal Confidentiality of Alcohol and Drug Abuse Patient Records regulations: The Federal rules restrict any use of the information to criminally investigate or prosecute any alcohol or drug abuse patient.[facility]In the event this information is protected by the Federal Confidentiality of Alcohol and Drug Abuse Patient Records regulations: The Federal rules restrict any use of the information to criminally investigate or prosecute any alcohol or drug abuse patient.[facility] Care Teams (unrecognized sec tion and content) [...] Active Yan Neves MD Other Provider Active Hanger Relationship Specialty Start Date End Date Nat Medina DO PCP - General 05/13/09 Harjit Mcdowell [address] [address] Referring Gastroenterology 12/22/18 Hanger Relationship Specialty Start Date End Date Nat Medina, DO PCP - General 05/13/09 Harjit Amaral 703 [facility] [address] [place] [address] Referring Gastroenterology 12/22/18 Hanger Relationship Specialty Start Date End Date Nat Medina, DO PCP - General 05/13/09 Harjit Amaral 703 [facility] [address] [place] [address] Referring Gastroenterology 12/22/18 Hanger Relationship Specialty Start Date End Date Nat Medina, DO PCP - General 05/13/09 Harjit Mcdowell [address] [place] [address] Referring Gastroenterology 12/22/18 Hanger Relationship Specialty Start Date End Date Nat Medina, DO PCP - General 05/13/09 Harjit Mcdowell [address] [place] [address] Referring Gastroenterology 12/22/18 Hanger Relationship Specialty Start Date End Date Nat Medina, DO PCP - General 05/13/09 Harjit Amaral 703 [facility] [address] [place] [address] Referring Gastroenterology 12/22/18 Hanger Relationship Specialty Start Date End Date Nat Medina, DO PCP - General 05/13/09 Harjit Mcdowell [address] [facility] [address] [place] [address] Referring Gastroenterology 12/22/18 Hanger Relationship Specialty Start Date End Date Nta Medina, DO PCP - General 05/13/09 Harjit Amaral [address] [facility] [address] [place] [address] Referring Gastroenterology 12/22/18 Hanger Relationship Specialty Start Date End Date Nat Medina, DO PCP - General 05/13/09 Harjit Mcdowell [address] [facility] [address] [place] [address] Referring Gastroenterology 12/22/18 Hanger Relationship Specialty Start Date End Date Nat Medina, DO PCP - General 05/13/09 Harjit Mcdowell [address] [facility] [address] [place] [address] Referring Gastroenterology 12/22/18 Hanger Relationship Specialty Start Date End Date Nat Medina, DO PCP - General 05/13/09 Harjit Amaral [address] [facility] [address] [place] [address] Referring Gastroenterology 12/22/18 Hanger Relationship Specialty Start Date End Date Nat Medina, DO PCP - General 05/13/09 Harjit Mcdowell [address] [facility] [address] [place] [address] Referring Gastroenterology 12/22/18 Hanger Relationship Specialty Start Date End Date Nat Medina DO PCP - General 05/13/09 Harjit Mcdowell [address] [facility] [address] [place] [address] Referring Gastroenterology 12/22/18 Hanger Relationship Specialty Start Date End Date Nat Medina DO PCP - General 05/13/09 Harjit Mcdowell [address] [facility] [address] [place] [address] Referring Gastroenterology 12/22/18 Hanger Relationship Specialty Start Date End Date Nat Medina DO PCP - General 05/13/09 Harjit Mcdowell [address] [facility] [address] [place], [place] [address] [phone] Referring Gastroenterology 12/22/18 Hanger Relationship Specialty Start Date End Date Nat Medina DO PCP - General 05/13/09 Harjit Mcdowell [address] [facility] [address] [place] [address] Referring Gastroenterology 12/22/18 Hanger Relationship Specialty Start Date End Date Nat Medina DO PCP - General 05/13/09 Harjit Mcdowell [address] [address] Referring Gastroenterology 12/22/18 Hanger Relationship Specialty Start Date End Date Nat Medina DO PCP - General 05/13/09 Harjit Mcdowell [address] [address] Referring Gastroenterology 12/22/18 Team Status: Active Member Role Status Dates Nat Medina , DO Primary Care Provider Active Troy Haile , DO Emergency Provider Active Karl Gant MD Admit Provider, Attending Provider Active Hanger Relationship Specialty Start Date End Date Nat Medina DO [address] [place] [address] PCP - General 08/14/22 [place] [address] [facility] Department of Medicine-Geriatrics [place] [id number] PCP - [facility] Medicaid PCP 03/16/23 Inna Hernandez, preparation operatorCleaning Associate 07/22/23 07/22/23 Hanger Relationship Specialty Start Date End Date Nat Medina DO PCP - General 05/13/09 Harjit Mcdowell [address] [address] Referring Gastroenterology 12/22/18 Hanger Relationship Specialty Start Date End Date Nat Medina DO PCP - General 08/14/22 [place] [address] [place] [address] PCP - [facility] Medicaid PCP 03/16/23 Hanger Relationship Specialty Start Date End Date Nat Meidna DO PCP - General 05/13/09 Harjit Mcdowell [address] [address] Referring Gastroenterology 12/22/18 Hanger Relationship Specialty Start Date End Date Nat Medina DO [address] [place] [address] PCP - General 08/14/22 [place] [address] [place] [address] PCP - [facility] Medicaid PCP 03/16/23 Hanger Relationship Specialty Start Date End Date Nat Medina DO [address] [place] [address] PCP - General 08/14/22 [place] [address] [place] [address] PCP - [facility] Medicaid PCP 03/16/23 Hanger Relationship Specialty Start Date End Date Nat Medina DO [address] [place] [address] PCP - General 08/14/22 [place] [address] [facility] [place] [address] PCP - [facility] Medicaid PCP 03/16/23 Hanger Relationship Specialty Start Date End Date Nat Medina DO PCP - General 05/13/09 Harjit Mcdowell [address] [place] [address] Referring Gastroenterology 12/22/18 Raffi Santiago, RN Specialty 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 [facility]osp[facility] Pall[facility] Medicine 09/25/23 Ramos Parekh MD [address] [place] [address] [facility] 09/25/23 Hanger Relationship Specialty Start Date End Date Nat Medina DO [address] [place] [address] PCP - General 08/14/22 [place] [address] [facility] [place] [address] PCP - [facility] Medicaid PCP 03/16/23 Vandana Ann Biology ManagerCleaning Associate 10/30/23 11/04/23 Team Status: Inactive Member Role Status Dates Nat Medina DO Attending Provider Active Sta rt: October 02, 2023 End: October 02, 2023 Hanger Relationship Specialty Start Date End Date Nat Medina DO PCP - General 05/13/09 Harjit Mcdowell [address] [place] [address] Referring Gastroenterology 12/22/18 Raffi Santiago, KISHA Specialty 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 [facility] 09/25/23 Ramos Parekh MD [address] [place] [address] Hospice & Palliative Medicine 09/25/23 Hanger Relationship Specialty Start Date End Date Nat Medina DO PCP - General 05/13/09 Harjit Mcdowell [address] [place] [address] Referring Gastroenterology 12/22/18 Raffi Santiago RN Specialty 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 [facility] 09/25/23 Ramos Parekh MD [address] [place] [address] Hospice & Palliative Medicine 09/25/23 Hanger Relationship Specialty Start Date End Date Nat Medina DO PCP - General 05/13/09 Harjit Mcdowell [address] [place] [address] Referring Gastroenterology 12/22/18 Raffi Santiago RN Specialty 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 H[facility]ice & Palliative Medicine 09/25/23 Ramos Parekh MD [facility] [place] [address] Hospice & Palliative Medicine 09/25/23 Hanger Relationship Specialty Start Date End Date Nat Medina DO PCP - General 05/13/09 Harjit Mcdowell [address] [address] Referring Gastroenterology 12/22/18 Raffi Santiago, RN Specialty 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 [facility] 09/25/23 Ramos Parekh MD [address] [place] [address] Hospice & Palliative Medicine 09/25/23 Hanger Relationship Specialty Start Date End Date Nat Medina DO PCP - General 05/13/09 Harjit Mcdowell [address] [place] [address] Referring Gastroenterology 12/22/18 Raffi Santiago RN Specialty 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 [facility] 09/25/23 Ramos Parekh MD [address] [place] [address] Hospice & Palliative Medicine 09/25/23 Hanger Relationship Specialty Start Date End Date Nat Medina DO PCP - General 05/13/09 Harjit Mcdowell [address] [address] Referring Gastroenterology 12/22/18 Raffi Santiago RN Specialty 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 [facility] 09/25/23 Ramos Parekh MD [address] [place] [address] Hospice & Palliative Medicine 09/25/23 Hanger Relationship Specialty Start Date End Date Nat Medina DO PCP - General 05/13/09 Harjit Mcdowell [address] [address] Referring Gastroenterology 12/22/18 Raffi Santiago, RN Specialty 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 [facility] Palliative Medicine 09/25/23 Ramos Parekh MD [address] [place] [address] Hospice & Palliative Medicine 09/25/23 Hanger Relationship Specialty Start Date End Date Nat Medina DO [facility] [place] [address] PCP - General 08/14/22 [place] [address] [facility] [address] PCP - [facility] Medicaid PCP 03/16/23 Hanger Relationship Specialty Start Date End Date Nat Medina DO PCP - General 05/13/09 Harjit Mcdowell [address] [address] Referring Gastroenterology 12/22/18 Raffi Santiago, KISHA Specialty 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 H[facility]ice & Palliative Medicine 09/25/23 Ramos Parekh MD [address] [place], [place] [id number] Hospice & Palliative Medicine 09/25/23 Team Status: Active Member Role Status Dates Nat Medina DO Primary Care Provider Active Start: November 27, 2023 KATHRYN Ramirez Attending Provider Active Start : November 27, 2023 Team Status: Inactive Member Role Status Dates Nat Medina DO Primary Care Ziyad r, Attending Provider Active Start: December 05, 2023 End: December 05, 2023 Hanger Relationship Specialty Start Date End Date Nat Medina DO PCP - General 05/13/09 Harjit Mcdowell [address] [address] Referring Gastroenterology 12/22/18 Raffi Santiago, KISHA Specialty 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 Hospice & Palliative Medicine 09/25/23 Ramos Parekh MD [address] [place] [address] Hospice & Palliative Medicine 09/25/23 Goals (unrecognized section and content) Goals may be documented in a n alternate section Scheduled Active and Recently Administ ered Medications (unrecognized section and content) Medication Order 11/04/2023 11/05/2023 11/06/2023 citalopram (CeleXA) tablet 20 mg 20 mg, oral, Daily, First dose on 11/02/23 at 0600 0958 (Given - Provider: Samy Mireles RN) 0818 (Given - Provider: Imani Sarabia, KISHA) 0842 (Given - Provider: Imani Sarabia, KISHA) cloNIDine (Catapres) tablet 0.1 mg 0.1 mg, oral, Nightly, First dose (after last modification) on Liz 10/31/23 at 2100, Hold for systolic < 110 or HR >100 2099 (Not Given - Provider: Pablito Gonzalez, KISHA - Reason: Patient/family refused) 2049 (Given - Provider: Pablito Gonzalez, KISHA) 2099 (Due) enoxaparin (Lovenox) syringe 40 mg 40 [...] Gonzalez RN) 0818 (Given - Provider: Imani Sarabia RN)1444 (Given - Provider: Imani Sarabia RN)2043 (Given - Provider: Pablito Gonzalez RN) 0842 (Given - Provider: Imani Sarabia, KISHA)1500 (Due)2100 (Due) insulin degludec (Tresiba) injection 6 Units (CANCELED) 6 Units, subcutaneous, Daily, First dose (after last modification) on Sat11/03/23 at 0900 0958 (Given - Provider: Samy Mireles RN) 0822 (Given - Provider: Imani Sarabia, RN) insulin degludec (Tresiba) injection 6 Units 6 Units, subcutaneous, Daily, First dose (after last modification) on Sat11/06/23 at 0900 1154 (Given - Provider: Imani Sarabia, KISHA) insulin lispro (HumaLOG) injection 0-5 Units (CANCELED) [...] Pablito Gonzalez RN)0519 (Given - Provider: Pablito Gonzalez, RN)1219 (Given - Provider: Imani Sarabia, RN)1727 (Given - Provider: Imani Sarabia, KISHA)2354 (Given - Provider: Pablito Gonzalez RN) 0527 (Given - Provider: Pablito Gonzalez, RN)1149 (Given - Provider: Imani Sarabia, RN)1800 (Due) nicotine (Nicoderm CQ) 14 mg/24 hr patch 1 patch 1 patch, transdermal, Administer over 24 Hours, Daily, First dose on Sat11/04/23 at 1045 1305 (Medication Applied - Provider: Samy Mireles RN) 0822 (Medication Removed - Provider: Imani Sarabia RN)0823 (Medication Applied - Provider: Imani Sarabia RN) 0823 (Medication Removed - Provider: Imani Sarabia RN)0842 (Medication Applied - Provider: Imani Sarabia RN) pancrelipase (Xve-Zrhp-Kmnv) (Creon) 36,000-114,000- 180,000 unit per capsule 2 [...] (Given - Provider: Pablito Gonzalez RN) pancrelipase (Klp-Xbqw-Xovv) (Creon) 36,000-114,000- 180,000 unit per capsule 2 [...] Mireles RN) 0819 (Given - Provider: Imani Sarabia RN)1218 (Given - Provider: Imani Sarabia RN)1628 (Given [...] Sarabia RN) 0105 (Given - Provider: Teresa Delgado, KISHA)0846 (Given - Provider: Imani Sarabia RN)1745 (Due) thiamine (Vitamin B-1) tablet 100 mg 100 mg, oral, Daily, First dose on Sat11/02/23 at 1215, For 7 days 0958 (Given - Provider: Samy Mireles RN) 0818 (Given - Provider: Imani Sarabia, KISHA) 0842 (Given - Provider: Imani Sarabia RN) Continuous Medication Order 11/04/2023 11/05/2023 11/06/2023 lactated [...] 2004 (Given - Provider: Pablito Gonzalez RN) 1726 (Given - Provider: Imani Sarabia, RN) acetaminophen (Tylenol) tablet 650 mg 650 mg, oral, Every 6 hours PRN, pain mild (1-3), first line, Starting on Sat11/06/23 at 0516, If ordered PRN for pain, nurse is permitted to administer this medication for higher pain scores based on patient preference? Yes 1149 (Given - Provider: Imani Sarabia, RN) dextrose [...] at 1039 0630 (Given - Provider: Pablito Gonzalez RN)2010 (Given - Provider: Pablito Gonzalez RN) 0953 (Given - Provider: Imani Sarabia, RN)2354 (Given - Provider: Pablito Gonzalez RN) 1153 (Given - Provider: Imani Sarabia, KISHA) magnesium sulfate IV 2 g 2 g, [...] Gonzalez RN) 0335 (Given - Provider: Pablito Gonzalez RN)0820 (Given - Provider: Imani Sarabia RN)1219 (Given - Provider: Imani Sarabia, KISHA)1627 (Given - Provider: Imani Sarabia, KISHA)2042 (Given - Provider: Pablito Gonzalez RN) 0109 (Given - Provider: Teresa Delgado RN)0527 (Given - Provider: Pablito Gonzalez RN)0930 (Given - Provider: Imani Sarabia, KISHA) pancrelipase (Kox-Ytzi-Vyif) (Creon) 36,000-114,000- 180,000 unit per capsule 1 [...] Pablito Gonzalez RN)0303 (Stopped - Provider: Pablito Gonzalez RN)1305 (New Bag - Provider: Samy Mireles RN)1320 (Stopped - Provider: Samy Mireles RN)2120 (New Bag - Provider: Teresa Delgado, RN)2135 (Stopped - Provider: Pablito Gonzalez, RN) 0952 (New Bag - Provider: Imani Sarabia RN)1007 (Stopped - Provider: Imani Sarabia RN)1836 (New Bag - Provider: Imani Sarabia, KISHA)1851 (Stopped - Provider: Imani Sarabia, KISHA) 0541 (New Bag - Provider: Pablito Gonzalez, KISHA)0556 (Stopped - Provider: Pablito Gonzalez RN) Linked Groups Order Group 1: pancrelipase (Zgz-Soug-Juso) (Creon) 36,000-114,000- 180,000 unit per capsule 2 [...] with ~10 mL of water.
And pancrelipase (Giy-Cagu-Rdbo) (Creon) 36,000-114,000- 180,000 unit per capsule 1 [...] BE BASED ON THE PRIMARY CLINICAL RECORDS. [employer] [facility]. provides no warranty or guarantee of the accuracy or completeness of information in this document.
[2023-12-16 07:46] VITALS: BP 110/67; PULSE 60; TEMP 36.7; O2SAT 95
[2023-12-16 07:55] LABS: Basophils Absolute Auto 0.1 10^3/uL (0.0-0.1); Basophils Percent Auto 1.9 % (0.2-2.0); Eosinophils Absolute Auto 0.2 10^3/uL (0.0-0.7); Eosinophils Percent Auto 3.7 % (0.9-7.0); Hematocrit 31.1 % (36.0-48.0); Hemoglobin 9.5 g/dL (12.0-16.0); Lymphocytes Absolute Auto 3.6 10^3/uL (1.2-3.8); Lymphocytes Percent Auto 67.6 % (20.5-60.0); Mean Corpuscular HGB Conc 30.5 g/dL (29.9-35.2); Mean Corpuscular Hemoglobin 26.2 pg (26.7-34.0); Mean Corpuscular Volume 85.7 fL (81.0-99.0); Mean Platelet Volume 10.1 fL (9.5-13.5); Monocytes Absolute Auto 0.4 10^3/uL (0.3-0.8); Monocytes Percent Auto 7.3 % (1.7-12.0); Neutrophils Percent Auto 19.5 % (43.0-75.0); Platelet Count 467 10^3/uL (150-450); Red Blood Count 3.63 10^6/uL (4.20-5.40); Red Cell Distribution Width 16.6 % (11.0-15.0); White Blood Count 5.3 10^3/uL (4.0-11.0)
[2023-12-16 08:24] LABS: Alanine Aminotransferase 35 U/L (14-59); Albumin Globulin Ratio 0.5; Albumin Level 1.6 g/dL (3.4-5.0); Alkaline Phosphatase 95 U/L (46-116); Anion Gap 7.8; Aspartate Amino Transferase 59 U/L (15-37); BUN Creatinine Ratio 9.2; Bilirubin Total 0.2 mg/dL (0.2-1.0); Chloride 103 mmol/L (98-107); Estimated GFR (African America >60 (>=60); Estimated GFR (Non-African Ame >60 (>=60); Globulin 3.5 g/dL; Glucose 253 mg/dL (74-106); Potassium 4.8 mmol/L (3.5-5.1); Sodium 138 mmol/L (136-145); Total Protein 5.1 g/dL (6.4-8.2)
--- NOTE | 2023-12-16 09:29 | CM.NOTE ---
Rounds made with Dr. Aly, possible discharge to home this afternoon. Pt denies any discharge needs at this time. Pt is ambulatory without use of assistive devices. Pt does have arm swelling and will have ultrasound prior to discharge.
[2023-12-16] MEDS: Lipase-Protease-Amylase [Creon] 36,000-114,000- 180,000 unit cap 1 EACH PO ×2 (09:32→11:46)
[2023-12-16] MEDS: CITALOPRAM HYDROBROMIDE 20 MG TABLET PO (09:32)
[2023-12-16] MEDS: CHOLECALCIFEROL (VITAMIN D3) 25 MCG/1,000 UNITS TABLET PO (09:32)
[2023-12-16] MEDS: ENOXAPARIN SODIUM 40 MG/0.4 ML SYRINGE SUBQ (09:32)
[2023-12-16] MEDS: INSULIN DETEMIR 300 UNIT/3 ML INSULN.PEN SUBQ (09:33)
--- NOTE | 2023-12-16 09:50 | US_ITS ---
The [address] [address] Patient Name: MARLENI BERNABE MRN: [id number] date: 1985 Sex: F Assigned Patient Location: [place] Current Patient Location: [place] Accession/Order Number: [id number] Exam Date: 12/16/2023 11:16 Report Date: 12/16/2023 12:45 At the request of: JIMY WATT Procedure: US venous doppler UE LT EXAMINATION: US venous doppler UE LT HISTORY: edema COMPARISON: No relevant comparison available. FINDINGS: REGION: Left upper extremity THROMBI: Extending from the distal axillary vein to distal brachial vein, and also involving a short segment of the distal basilic vein. Cephalic vein could not be identified. COMPRESSIBILITY: Noncompressible segments. FLOW: Areas of absent flow. OTHER: None. US/US venous doppler UE LT IMPRESSION: 1. Left upper extremity deep vein thrombus extending throughout length of brachial vein, and with a small short segments within the distal basilic vein. Patient's provider is being notified at this time. Electronically authenticated by: DAVID CHANEY Date: 12/16/2023 12:45
--- NOTE | 2023-12-16 09:54 | P.DS_ITS ---
DS: Providers Provider Date of admission: 12/13/23 16:22 Primary care physician: Carlos Lafleur DO Consults: 12/13/23 Consult to Dietitian Routine Reason For Exam: weight loss Reason for consultation: weight loss of 20 lbs Has provider been notified: No 12/13/23 15:56 Occupational Therapy Eval and Treat Routine Reason for consultation: weakness Has provider been notified: No Physical Therapy Eval and Treat Routine Reason for consultation: weakness Has provider been notified: No 12/14/23 11:50 Consult to General Surgeon Routine Consulting Provider: Allen Barnes Reason for consultation: Peg tube leaking - needed for nutrition, hypoglycemia DS: Diagnosis Discharge Diagnosis (1) Hypothermia: Qualifiers: Encounter type: initial encounter Qualified Code(s): T68.XXXA - Hypothermia, initial encounter (2) Hypoglycemia: (3) Urinary tract infection: Qualifiers: Hematuria presence: without hematuria Urinary tract infection type: acute cystitis Qualified Code(s): N30.00 - Acute cystitis without hematuria (4) Diabetes: Qualifiers: Diabetes mellitus complication detail: with coma Diabetes mellitus complication status: with hypoglycemia Diabetes mellitus shelter insulin use: with bed bug exterminator use Diabetes mellitus type: due to underlying condition Qualified Code(s): E08.641 - Diabetes mellitus due to underlying condition with hypoglycemia with coma; Z79.4 - meterman (current) use of insulin (5) Crohn disease: Qualifiers: Digestive disease complication type: unspecified complication Gastrointestinal tract location: unspecified location Qualified Code(s): K50.919 - Crohn's disease, unspecified, with unspecified complications (6) Opioid abuse with intoxication with complication: (7) Anxiety: (8) ADHD (attention deficit hyperactivity disorder): Qualifiers: Attention deficit-hyperactivity disorder type: unspecified Qualified Code(s): F90.9 - Attention-deficit hyperactivity disorder, unspecified type Plan Admitted with: Hypothermia, hypotension, hypoxia (86%), severe hypoglycemia, leukocytosis with bandemia due to acute UTI due to Klebsiella-continue with current IV antibiotics, sugars are still rapidly fluctuating. Poorly controlled diabetes mellitus-possible result of the infection as outlined above, will add back long-acting today, do split dosing secondary to severe hyper and hypoglycemia episode she has been having at home. Crohn's colitis with severe protein calorie malnutrition-will start tube feeds this evening, started 30 cc/h of Jevity for 8 hours through her J-tube. 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 On PPI Thrombocythemia likely secondary to the infection as outlined above-monitor daily Elevated liver function test likely related to the sepsis as outlined above, monitor daily-elevated slightly today Hypothyroidism-add medication Hypomagnesemia-supplement Inpatient criteria: The severity of hypoglycemia and likely sepsis with cultures pending, progression of leukocytosis with bandemia-possibly just a 3-day stay now with overall improvement in her sugars, now significantly elevated though. Still fluctuating rapidly here. Possible discharge tomorrow with adding long- acting insulin today DS: Summary Hospital Course Hospital Course: Patient was found to have severe hypoglycemia, less than 30, she was given aggressive glucose treatment initially, held any of her long-acting insulin, she also had acute renal failure was treated with IV hydration. As seem to improve fairly quickly, her sugars been very labile while she is here. We did try to split dosing of her long-acting insulin overnight given that she has some mild hypoglycemia. Attempted to use her J-tube for feedings, J-tube fell out. She has a visit later this week with her specialist, we will have her keep that visit she needs a G-tube placed she has severe protein malnutrition, needs this is secondary to her Crohn's and complicated now by her pancreatectomy. Overall patient is improved, this still could be a long-haul as an outpatient and close monitoring is can be required discussed this with the patient. Did develop with her PCP this week. Medications see list. Also found to have acute UTI is likely the source of the all the above. Treated with antibiotics and would be discharged home on antibiotics Time Spent with Patient Time attestation: Total time spent providing and/or coordinating discharge services: Exam Constitutional Vital Signs, click to edit/add: Last Vital Signs Temp 98.0 F 12/16/23 07:46 Pulse 60 12/16/23 07:46 Resp 16 12/16/23 07:46 BP 110/67 12/16/23 07:46 Pulse Ox 95 12/16/23 07:46 O2 Del Method Room Air 12/16/23 07:46 O2 Flow Rate 2 12/13/23 16:34 Common normals: no apparent distress and oriented x3 Exam limitations: no altered mental status HENMT Common normals: normocephalic Head and scalp: normal to inspection Eye Common normals: PERRL and EOMs intact bilaterally Chest Common normals: inspection of chest normal and palpation of chest normal Respiratory Common normals: normal respiratory effort and no retractions Cardio Common normals: regular rate and regular rhythm GI Common normals: soft to palpation and non-tender Palpation: guarding and rigid Other: J tub in LLQ no excoriation noted at insertion site, no active drainage at this time, dressing replaced over area, scars consistent with Sx Hx Extremity Common normals: normal to inspection Neuro Common normals: oriented x3 Speech: speech normal DS: Data Data Completed and Pending Labs on day of discharge: Labs from last 24 hours 12/16/23 12/15/23 12/13/23 07:40 20:04 16:17 WBC 5.3 RBC 3.63 L Hgb 9.5 L Hct 31.1 L MCV 85.7 MCH 26.2 L MCHC 30.5 RDW 16.6 H Plt Count 467 H MPV 10.1 Neut % (Auto) 19.5 L Lymph % (Auto) 67.6 H Cass % (Auto) 7.3 Eos % (Auto) 3.7 Baso % (Auto) 1.9 Neut # (Auto) 1.0 L Lymph # (Auto) 3.6 Cass # (Auto) 0.4 Eos # (Auto) 0.2 Baso # (Auto) 0.1 Abs Immat Gran (auto) 0.00 Imm/Tot Granulo (auto) 0.0 Sodium 138 Potassium 4.8 Chloride 103 Carbon Dioxide 32.0 Anion Gap 7.8 BUN 7.0 Creatinine 0.76 Est GFR ( Amer) >60 Est GFR (Non-Af Amer) >60 BUN/Creatinine Ratio 9.2 Glucose 253 H Insulin Level 0.6 L Calcium 8.0 L Magnesium 2.0 Total Bilirubin 0.2 AST 59 H ALT 35 Alkaline Phosphatase 95 Total Protein 5.1 L Albumin 1.6 L Globulin 3.5 Albumin/Globulin Ratio 0.5 POC Glucose 80 Preliminary micro results at discharge 12/13/23 12:37 - Preliminary Blood NO GROWTH AT 36-48 HOURS. FINAL TO FOLLOW. 12/13/23 12:45 Blood Culture Result 1 - Preliminary Blood NO GROWTH AT 36-48 HOURS. FINAL TO FOLLOW. Discharge Plan Discharge Disposition: Home, Self-Care Condition: Good Discharge Medications: New hydromorphone 8 mg Tablet Extended Release 24 Hr 4 mg PO BID PRN (Reason: Pain Scale 4-6) Qty: 60 0RF cefdinir 300 mg capsule 300 mg PO BID 10 Days Qty: 20 0RF levothyroxine 75 mcg Tablet 75 mcg PO ACB Qty: 30 11RF Eliquis 5 mg tablet 10 mg PO Q12H Qty: 60 11RF Rx Instructions: 1 week at 2 p[o BID then 1 po BID Continued lorazepam 0.5 mg tablet 0.5 mg PO Q6H PRN (Reason: anxiety) promethazine 25 mg tablet 25 mg PO Q6H PRN (Reason: nausea and vomiting) cholecalciferol (vitamin D3) 25 mcg (1,000 unit) capsule 1,000 unit PO DAILY pantoprazole 40 mg tablet,delayed release (DR/EC) 40 mg PO DAILY mirtazapine 7.5 mg tablet 7.5 mg PO BEDTIME oxycodone 15 mg tablet 15 mg PO Q4H PRN (Reason: pain) hydromorphone 8 mg tablet extended release 24 hr 8 mg PO BID Patient Comments: filled 12/09 x7 days citalopram 20 mg tablet 20 mg PO DAILY insulin glargine [Lantus Solostar U-100 Insulin] 100 unit/mL (3 mL) insulin pen 8 unit SUBCUT .QHS insulin lispro 100 unit/mL insulin pen 1 sliding scale dose SUBCUT .TIDAC Rx Instructions: 1:30 ICR 3 TIMES A DAY BEFORE MEALS. CORRCTIVE SCALE 1:50 BEFORE MEALS Creon 12,000-38,000 -60,000 unit capsule,delayed release(DR/EC) 3 cap PO TID PRN (Reason: snacks) Creon 36,000-114,000- 180,000 unit capsule,delayed release(DR/EC) 1 cap PO TIDWM trazodone 100 mg tablet 200 mg PO .qhs clonidine HCl 0.1 mg tablet 0.1 mg PO .qhs Vraylar 1.5 mg capsule 1.5 mg PO DAILY (DME) Dexcom G7 Sensor Device MISCELLANEOUS Activity: increase activity as tolerated Diet: advance to your usual diet Print Language: Lithuanian Patient Instructions: Levothyroxine (By mouth), Hydromorphone (By mouth), Cefdinir (By mouth), Apixaban (By mouth), Urinary Tract Infection in Women (GEN), Deep Vein Thrombosis (GEN), Hypoglycemia in a Person with Diabetes (GEN) Forms: Portal Instructions Follow Up Appointments: Follow up with Dr Alec Lafleur SaturdayDecember 19 at 2:30 pm [phone] Discharge Date/Time: 12/16/23 14:50
[2023-12-16 11:10] VITALS: O2SAT 95
[2023-12-16] MEDS: INSULIN ASPART 300 UNIT/3 ML PEN SUBQ (11:44)
[2023-12-16] MEDS: PROSTAT 15 GM PROTEIN/100 CAL 30 ML LIQUID PACKET PO (11:46)
--- NOTE | 2023-12-16 12:34 | SWNOTE1 ---
SW received call from nursing and pt needs Eliquis 30 day free trial, she has DVT in arm. SW provided pt with free 30 day trial card and advised her to take to pharmacy with script, scipt likely already sent. SW did ask pt about opiate use/abuse? Pt voices she has several medical issues and she is prescibed medication from [facility]. She voiced she is being prescribed proper amount and physician does follow.
[2023-12-16 12:51] VITALS: BP 105/70; PULSE 64; TEMP 36.8; O2SAT 95
[2023-12-16] MEDS: APIXABAN 5 MG TABLET 10 MG PO (13:20)
[2023-12-16 16:02] VITALS: BMI 17.9
--- NOTE | 2023-12-17 15:46 | CM.DCFOLLOWU ---
/2- 1st attempt. No answer
--- NOTE | 2023-12-19 14:28 | CM.DCFOLLOWU ---
12/18- 2nd attempt. No answer
== END 2023-12-16 14:50 | disposition home or self-care (01) | DRG 720 ==
LOC: ER 15:47 → ICU 12-14 08:34 → MS 12-16 07:28
PROVIDERS: Admitting Provider Family Medicine; Emergency Provider Emergency Medicine; PCP Internal Medicine; Visit Provider Family Medicine
DX: A41.9 Sepsis, unspecified organism (principal); T40.2X1A Poisoning by other opioids, accidental (unintentional), initial encounter; N30.00 Acute cystitis without hematuria; B96.1 Klebsiella pneumoniae [K. pneumoniae] as the cause of diseases classified elsewhere; D50.9 Iron deficiency anemia, unspecified; F90.9 Attention-deficit hyperactivity disorder, unspecified type; E43 Unspecified severe protein-calorie malnutrition; D75.839 Thrombocytosis, unspecified; E03.9 Hypothyroidism, unspecified; R79.89 Other specified abnormal findings of blood chemistry; E83.42 Hypomagnesemia; K21.9 Gastro-esophageal reflux disease without esophagitis; R65.20 Severe sepsis without septic shock; F11.129 Opioid abuse with intoxication, unspecified; F41.1 Generalized anxiety disorder; R68.0 Hypothermia, not associated with low environmental temperature; I82.622 Acute embolism and thrombosis of deep veins of left upper extremity; N17.9 Acute kidney failure, unspecified; K50.919 Crohn's disease, unspecified, with unspecified complications; F17.290 Nicotine dependence, other tobacco product, uncomplicated; E13.641 Other specified diabetes mellitus with hypoglycemia with coma; E89.1 Postprocedural hypoinsulinemia; E13.65 Other specified diabetes mellitus with hyperglycemia; Z93.4 Other artificial openings of gastrointestinal tract status; Z79.899 Other long term (current) drug therapy; Z79.4 Long term (current) use of insulin; Z90.81 Acquired absence of spleen; Z90.410 Acquired total absence of pancreas; Z68.1 Body mass index [BMI] 19.9 or less, adult; Z79.891 Long term (current) use of opiate analgesic; Z88.2 Allergy status to sulfonamides
CPT/HCPCS: 0202U; 36415; 71045; 74177; 80048; 80053; 80076; 80307; 80320; 81001; 82150; 82948; 83036; 83525; 83605; 83690; 83735; 84100; 84145; 84443; 84484; 84703; 85007; 85025; 85027; 87040; 87086; 87150; 87186; 93005; 93971; 94761; 96361; 96365; 96366; 96367; 96372; 96375; 99285; G0328; Q9967

== ENCOUNTER 2024-02-05 11:33 | Outpatient (OUT) | payer OTHER, SELFPAY ==
[2024-02-05 12:34] LABS: Basophils Absolute Auto 0.1 10^3/uL (0.0-0.1); Basophils Percent Auto 2.6 % (0.2-2.0); Eosinophils Percent Auto 0.6 % (0.9-7.0); Hematocrit 35.3 % (36.0-48.0); Hemoglobin 11.2 g/dL (12.0-16.0); Immature Granulocytes Abs Auto 0.01 10^3/uL (0.00-0.03); Immature Granulocytes Pct Auto 0.3 % (0.0-0.5); Lymphocytes Absolute Auto 1.5 10^3/uL (1.2-3.8); Lymphocytes Percent Auto 41.5 % (20.5-60.0); Mean Corpuscular HGB Conc 31.7 g/dL (29.9-35.2); Mean Corpuscular Hemoglobin 26.2 pg (26.7-34.0); Mean Corpuscular Volume 82.5 fL (81.0-99.0); Monocytes Absolute Auto 0.3 10^3/uL (0.3-0.8); Monocytes Percent Auto 7.4 % (1.7-12.0); Neutrophils Absolute Auto 1.7 10^3/uL (1.4-6.5); Neutrophils Percent Auto 47.6 % (43.0-75.0); Platelet Count 188 10^3/uL (150-450); Red Blood Count 4.28 10^6/uL (4.20-5.40); Red Cell Distribution Width 22.3 % (11.0-15.0); White Blood Count 3.5 10^3/uL (4.0-11.0)
[2024-02-05 12:38] LABS: Alanine Aminotransferase 81 U/L (14-59); Albumin Globulin Ratio 0.8; Albumin Level 3.4 g/dL (3.4-5.0); Alkaline Phosphatase 204 U/L (46-116); Anion Gap 27.5; Aspartate Amino Transferase 111 U/L (15-37); BUN Creatinine Ratio 6.9; Bilirubin Total 0.6 mg/dL (0.2-1.0); Calcium 9.3 mg/dL (8.5-10.1); Carbon Dioxide 20.3 mmol/L (21.0-32.0); Chloride 86 mmol/L (98-107); Estimated GFR (African America 50 (>=60); Estimated GFR (Non-African Ame 41 (>=60); Globulin 4.4 g/dL; Potassium 4.8 mmol/L (3.5-5.1); Sodium 129 mmol/L (136-145); Total Protein 7.8 g/dL (6.4-8.2)
[2024-02-05 12:44] LABS: Erythrocyte Sedimentation Rate 30 mm/hr (<=20)
[2024-02-05 12:50] LABS: Glucose 882 mg/dL (74-106)
== END 2024-02-05 11:34 | disposition home or self-care (01) ==
LOC: LAB 11:34
PROVIDERS: PCP Internal Medicine; Visit Provider Internal Medicine
DX: A09 Infectious gastroenteritis and colitis, unspecified (principal)
CPT/HCPCS: 36415; 80053; 85025; 85652; 87177; 87209

== ENCOUNTER 2024-02-05 14:20 | Emergency (ER) | payer OTHER, SELFPAY ==
[2024-02-05 14:32] VITALS: BP 123/98; PULSE 84; TEMP 36.9; O2SAT 100; BMI 16.8
[2024-02-05] MEDS: 0.9 % SODIUM CHLORIDE 1,000 ML 1000 ML IV (14:52)
[2024-02-05 14:54] VITALS: BP 117/87
[2024-02-05 15:00] VITALS: BP 119/83
[2024-02-05 15:06] LABS: Bilirubin Urine NEGATIVE (NEGATIVE); Blood Urine NEGATIVE (NEGATIVE); Clarity Urine CLEAR (CLEAR); Color Urine LT. YELLOW (YELLOW); Glucose Urine UA >=1000 mg/dL (NEGATIVE); Ketones Urine 40 mg/dL (NEGATIVE); Leukocyte Esterase Urine NEGATIVE (NEGATIVE); Nitrite Urine NEGATIVE (NEGATIVE); Protein Urine NEGATIVE (NEG/TRACE); Specific Gravity Urine <=1.005 (1.005-1.025); Urobilinogen Urine 0.2 EU/dL (0.2-1.0); pH Urine 6.5 (5.0-9.0)
[2024-02-05 15:10] LABS: Urine Microscopic Indicated NO
[2024-02-05 15:20] LABS: Magnesium 2.1 mg/dL (1.8-2.4)
[2024-02-05 15:25] LABS: Acetone SMALL (NEGATIVE)
--- NOTE | 2024-02-05 15:37 | ED_ITS ---
HPI HPI - General Adult General Chief complaint: Recheck/Abnormal Lab/Rx Stated complaint: HIGH BLOOD SUGAR Time Seen by Provider: 02/05/24 14:31 Source: patient Mode of arrival: walk-in Limitations: no limitations History of Present Illness HPI narrative: Patient presents to ED complaining of elevated blood sugar. She has a history of type 1 diabetes and she had her pancreas removed. She said recently her stool has been abnormal so she came in for labs and stool sample today. She had outpatient labs done and her blood sugar was in the 800s. She was sent over to the ED for further evaluation. She said she had a protein shake today and did not take her insulin yet and that is why her sugar was high. She denies fevers nausea or vomiting. She is alert and oriented in no acute distress no complaints resting comfortably in the bed in Related Data Home Medications ?Medication ?Instructions ?Recorded ?Confirmed blood-glucose sensor (Dexcom G7 12/13/23 12/13/23 Sensor device) cariprazine 1.5 mg capsule 1.5 mg PO DAILY 12/13/23 12/13/23 (Vraylar) cholecalciferol (vitamin D3) 25 1,000 unit PO DAILY 12/13/23 12/13/23 mcg (1,000 unit) capsule citalopram 20 mg tablet 20 mg PO DAILY 12/13/23 12/13/23 clonidine HCl 0.1 mg tablet 0.1 mg PO .qhs 12/13/23 12/13/23 hydromorphone 8 mg tablet,extended 8 mg PO BID 12/13/23 12/13/23 release 24 hr insulin glargine 100 unit/mL (3 8 unit subcut .QHS 12/13/23 12/13/23 mL) subcutaneous pen (Lantus Solostar U-100 Insulin) insulin lispro 100 unit/mL 1 sliding scale dose subcut .TIDAC 12/13/23 12/13/23 subcutaneous pen [id number] 3 cap PO TID PRN snacks 12/13/23 12/13/23 12,000-38,000-60,000 unit capsule,delayed rel (Creon) [id number] 1 cap PO TIDWM 12/13/23 12/13/23 36,000-114,000-180,000 unit capsule,delay rel (Creon) lorazepam 0.5 mg tablet 0.5 mg PO Q6H PRN anxiety 12/13/23 12/13/23 mirtazapine 7.5 mg tablet 7.5 mg PO BEDTIME 12/13/23 12/13/23 oxycodone 15 mg tablet 15 mg PO Q4H PRN pain 12/13/23 12/13/23 pantoprazole 40 mg tablet,delayed 40 mg PO DAILY 12/13/23 12/13/23 release promethazine 25 mg tablet 25 mg PO Q6H PRN nausea and 12/13/23 12/13/23 vomiting trazodone 100 mg tablet 200 mg PO .qhs 12/13/23 12/13/23 Previous Rx's ?Medication ?Instructions ?Recorded apixaban 5 mg tablet (Eliquis) 10 mg (2 x 5 mg) PO Q12H dvt #60 12/16/23 tabs cefdinir 300 mg capsule 300 mg PO BID 10 days #20 caps 12/16/23 hydromorphone 8 mg tablet,extended 4 mg (1/2 x 8 mg) PO BID PRN Pain 12/16/23 release 24 hr Scale 4-6 #60 tabs levothyroxine 75 mcg tablet 75 mcg PO ACB #30 tabs 12/16/23 Allergies Allergy/AdvReac Type Severity Reaction Status Date / Time sulfamethoxazole AdvReac Mild Verified 12/13/23 12:55 [From Bactrim] trimethoprim [From Bactrim] AdvReac Mild Verified 12/13/23 12:55 Opioid HPI Opioid Management Most Recent Opioid Data: Last Pain Scale 5 12/16/23 14:16 Last ORT Total Score 11 12/13/23 16:34 Last ORT Risk Category High Risk 12/13/23 16:34 Ur Phencyclidine Scrn Negative (NEGATIVE) 12/13/23 14:46 Review of Systems ROS Status of ROS 10 or more systems reviewed and unremark able except as noted in history and below [facility] Medical History (Updated 02/05/24 @ 15:56 by Marcella Roberson DO) ADHD (attention deficit hyperactivity disorder) ?F90.9 - Attention-deficit hyperactivity disorder, unspecified type (ICD-10) Anxiety ?F41.9 - Anxiety disorder, unspecified (ICD-10) Opioid abuse with intoxication with complication ?F11.129 - Opioid abuse with intoxication, unspecified (ICD-10) Hypothermia ?T68.XXXA - Hypothermia, initial encounter (ICD-10) Hypoglycemia ?E16.2 - Hypoglycemia, unspecified (ICD-10) Urinary tract infection ?N39.0 - Urinary tract infection, site not specified (ICD-10) Diabetes ?E11.9 - Type 2 diabetes mellitus without complications (ICD-10) Crohn disease ?K50.90 - Crohn's disease, unspecified, without complications (ICD-10) Surgical History H/O splenectomy ?Z90.81 - Acquired absence of spleen (ICD-10) Hx of cholecystectomy ?Z90.49 - Acquired absence of other specified parts of digestive tract (ICD- 10) 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 Smoking status: Current every day smoker Do you use any of these nicotine containing products: e-cigarettes Non-prescribed substance use: denies use Highest level of school completed/degree received: Associate degree: academic program Are you now , , , , never or living with a partner: living with partner In a typical week, how many times do you talk on the telephone with family, friends, or neighbors: once per week How often do you get together with friends or relatives: twice per week How often do you attend roman catholic or taoist services: never Do you belong to any clubs or organizations such as roman catholic groups unions, fraternal or athletic groups, or school groups: no Total score: 2 Score interpretation: A score of greater than or equal to 2 indicates the lowest level of social isolation. Little interest or pleasure in doing things: several days Feeling down, depressed, or hopeless: several days Feel stressed/tense/nervous/anxious/difficulty sleeping: very much Due to disability, difficulty making decisions: No Do you think of yourself as: straight/heterosexual Gender Identity: female Exam Narrative Exam Narrative: Time Seen: [] Vital Signs: [Per nurse's notes.] General: [Alert] Skin: [Warm, dry, no rash.] Head: [Normocephalic, atraumatic.] Neck: [Supple, trachea midline.] Eye: [Pupils are equal, round and reactive to light, extraocular movements are intact, normal conjunctiva.] Ears, nose, mouth and throat: oral mucosa moist. Cardiovascular: [Regular rate and rhythm, no murmur.] Respiratory: [Lungs are clear to auscultation, respirations are non-labored, breath sounds are equal.] Chest wall: [No tenderness, no deformity.] Gastrointestinal: [Soft, nontender, non distended, normal bowel sounds.] MSK: 5 out of 5 muscle strength x 4 extremities no calf pain or edema Lymphatics: [No lymphadenopathy.] Psychiatric: [Cooperative, appropriate mood & affect.] Neurological: [Alert and oriented to person, place, time, and situation, no focal neurological deficit observed.] Constitutional Vital Signs, click to edit/add: Last Vital Signs Temp 98.4 F 02/05/24 14:32 Pulse 84 02/05/24 14:32 Resp 18 02/05/24 14:32 BP 123/98 H 02/05/24 14:32 Pulse Ox 100 02/05/24 14:32 O2 Del Method Room Air 02/05/24 14:32 Course Vital Signs Vital signs: Vital Signs Temperature 98.4 F 02/05/24 14:32 Pulse Rate 84 02/05/24 14:32 Respiratory Rate 18 02/05/24 14:32 Blood Pressure 123/98 H 02/05/24 14:32 Pulse Oximetry 100 02/05/24 14:32 Oxygen Delivery Method Room Air 02/05/24 14:32 Temperature 98.4 F 02/05/24 14:32 Pulse Rate 84 02/05/24 14:32 Respiratory Rate 18 02/05/24 14:32 Blood Pressure 123/98 H 02/05/24 14:32 Pulse Oximetry 100 02/05/24 14:32 Oxygen Delivery Method Room Air 02/05/24 14:32 Medical Decision Making MDM Narrative Medical decision making narrative: Venous pH is 7.38. Patient's blood sugar is trending down after fluids and her own insulin. She is down to 440. She said she is feeling fine and does not want to be admitted to the hospital. She absolutely does not want to stay in the hospital. I gave her strict instructions to return to the ED if nausea vomiting fevers or any worsening symptoms. Continue to follow-up with your family doctor and continue to monitor the blood sugar closely today and make adjustments with insulin as needed. Patient expresses understanding of care plan and is comfortable with plan for home. Differential Diagnosis Differential Diagnosis: Hyperglycemia, DKA, dehydration Medical Records Medical records reviewed: Yes I reviewed the patient's medical records Lab Data Lab results reviewed: Yes I reviewed the patient's lab results Labs: Lab Results 02/05/24 02/05/24 02/05/24 Range/Units 14:48 14:52 15:43 VBG pH 7.389 (7.330-7.430) VBG pCO2 52.3 H (40.0-52.0) mmHg Urine Color Lt. yellow (YELLOW) Urine Clarity Clear (CLEAR) Urine pH 6.5 (5.0-9.0) Ur Specific Bourg <=1.005 A (1.005-1.025) Urine Protein Negative (NEG/TRACE) mg/dL Urine Glucose (UA) >=1000 A (NEGATIVE) mg/dL Urine Ketones 40 A (NEGATIVE) mg/dL Urine Occult Blood Negative (NEGATIVE) Urine Nitrite Negative (NEGATIVE) Urine Bilirubin Negative (NEGATIVE) Urine Urobilinogen 0.2 (0.2-1.0) EU/dL Ur Leukocyte Esterase Negative (NEGATIVE) Acetone, Qual Small A (NEGATIVE) POC Glucose (74-106) mg/dL 02/05/24 Range/Units 15:50 VBG pH (7.330-7.430) VBG pCO2 (40.0-52.0) mmHg Urine Color (YELLOW) Urine Clarity (CLEAR) Urine pH (5.0-9.0) Ur Specific Bourg (1.005-1.025) Urine Protein (NEG/TRACE) mg/dL Urine Glucose (UA) (NEGATIVE) mg/dL Urine Ketones (NEGATIVE) mg/dL Urine Occult Blood (NEGATIVE) Urine Nitrite (NEGATIVE) Urine Bilirubin (NEGATIVE) Urine Urobilinogen (0.2-1.0) EU/dL Ur Leukocyte Esterase (NEGATIVE) Acetone, Qual (NEGATIVE) POC Glucose 472 H (74-106) mg/dL Discharge Plan Discharge Stand Alone Forms: Portal Instructions Chief Complaint: Recheck/Abnormal Lab/Rx Clinical Impression: Hyperglycemia Patient Disposition: Home, Self-Care Time of Disposition Decision: 15:55 Mode of Transportation: Private Vehicle Prescriptions / Home Meds: No Action lorazepam 0.5 mg tablet 0.5 mg PO Q6H PRN (Reason: anxiety) promethazine 25 mg tablet 25 mg PO Q6H PRN (Reason: nausea and vomiting) cholecalciferol (vitamin D3) 25 mcg (1,000 unit) capsule 1,000 unit PO DAILY pantoprazole 40 mg tablet,delayed release (DR/EC) 40 mg PO DAILY mirtazapine 7.5 mg tablet 7.5 mg PO BEDTIME oxycodone 15 mg tablet 15 mg PO Q4H PRN (Reason: pain) hydromorphone 8 mg tablet extended release 24 hr 8 mg PO BID Patient Comments: filled 12/09 x7 days citalopram 20 mg tablet 20 mg PO DAILY insulin glargine [Lantus Solostar U-100 Insulin] 100 unit/mL (3 mL) insulin pen 8 unit SUBCUT .QHS insulin lispro 100 unit/mL insulin pen 1 sliding scale dose SUBCUT .TIDAC Rx Instructions: 1:30 ICR 3 TIMES A DAY BEFORE MEALS. CORRCTIVE SCALE 1:50 BEFORE MEALS Creon 12,000-38,000 -60,000 unit capsule,delayed release(DR/EC) 3 cap PO TID PRN (Reason: snacks) Creon 36,000-114,000- 180,000 unit capsule,delayed release(DR/EC) 1 cap PO TIDWM trazodone 100 mg tablet 200 mg PO .qhs clonidine HCl 0.1 mg tablet 0.1 mg PO .qhs Vraylar 1.5 mg capsule 1.5 mg PO DAILY (DME) Dexcom G7 Sensor Device MISCELLANEOUS hydromorphone 8 mg Tablet Extended Release 24 Hr 4 mg PO BID PRN (Reason: Pain Scale 4-6) Qty: 60 0RF cefdinir 300 mg capsule 300 mg PO BID 10 Days Qty: 20 0RF levothyroxine 75 mcg Tablet 75 mcg PO ACB Qty: 30 11RF Eliquis 5 mg tablet 10 mg PO Q12H Qty: 60 11RF Rx Instructions: 1 week at 2 p[o BID then 1 po BID Print Language: Congolese Instructions: Diabetic Hyperglycemia (ED) Referrals: Carlos Lafleur DO [Primary Care Provider] - 1 week
[2024-02-05 15:49] LABS: PCO2 VBG 52.3 mmHg (40.0-52.0); pH VBG 7.389 (7.330-7.430)
[2024-02-05 15:52] LABS: Glucometer 472 mg/dL (74-106)
[2024-02-05 16:00] VITALS: PULSE 81; O2SAT 99
== END 2024-02-05 16:06 | disposition home or self-care (01) ==
PROVIDERS: Emergency Provider Emergency Medicine; PCP Internal Medicine
DX: E10.65 Type 1 diabetes mellitus with hyperglycemia (principal); A09 Infectious gastroenteritis and colitis, unspecified; Z90.410 Acquired total absence of pancreas; Z79.4 Long term (current) use of insulin; Z87.440 Personal history of urinary (tract) infections; F17.290 Nicotine dependence, other tobacco product, uncomplicated
CPT/HCPCS: 36415; 80053; 81003; 82009; 82800; 83735; 85025; 85652; 87177; 87209; 99284